=== PATIENT | male | born 1935 | race Caucasian/White ===

== ENCOUNTER → 2016-06-09 | Outpatient (CLI) | payer BC ==
[~2016-06-09] MED LIST: CALC500C70 PO; CEPH500C PO; DOCU-94 PO; FRRG PO; GLC/500 PO; LPR100 PO; OMEP40CA41 PO; OXYC-57 PO; PAIN PILL PO; SOLI10TA2 PO; WARF2.5T8 PO; WARF4TAB8 PO; WARF5TAB7 PO
[2016-06-09 16:07] LABS: INR 2.3 (0.9-1.1); PROTHROMBIN TIME (PATIENT) 25.9 SECONDS (9.0-12.0)
== END | disposition home or self-care (01) ==
LOC: C.LABSPEC 15:40
PROVIDERS: ATTEND Internal Medicine
DX: I48.91 Unspecified atrial fibrillation (principal); Z79.01 Long term (current) use of anticoagulants

== ENCOUNTER → 2016-06-30 | Outpatient (CLI) | payer BC ==
[~2016-06-30] MED LIST changes: -CEPH500C PO
[2016-06-30 13:14] LABS: BLOOD UREA NITROGEN 22 mg/dl (7-18); BUN/CREATININE RATIO 12.9 (10-20); CALCIUM 8.4 mg/dl (8.5-10.1); CARBON DIOXIDE 19 mmol/L (21-32); CHLORIDE 114 mmol/L (98-107); CHOLESTEROL 135 mg/dl (0-200); GLUCOSE 132 mg/dl (70-99); POTASSIUM 4.7 mmol/L (3.5-5.1); SODIUM 142 mmol/L (136-145); TRIGLYCERIDES 64 mg/dl (0-150); VERY LOW DENSITY LIPOPROT CALC 13 mg/dl
[2016-06-30 13:17] LABS: CHOLESTEROL/HDL RATIO 2.3; HDL CHOLESTEROL 58 mg/dl
[2016-06-30 13:23] LABS: INR 2.2 (0.9-1.1)
[2016-06-30 14:33] LABS: ESTIMATED AVERAGE GLUCOSE 126 mg/dl; HA1C FLAG Normal (Normal)
== END | disposition home or self-care (01) ==
LOC: C.LABSPEC 12:21
PROVIDERS: ATTEND Internal Medicine
DX: E11.9 Type 2 diabetes mellitus without complications (principal); E78.5 Hyperlipidemia, unspecified; I48.91 Unspecified atrial fibrillation; I10 Essential (primary) hypertension; Z79.01 Long term (current) use of anticoagulants

== ENCOUNTER → 2016-09-02 | Outpatient (CLI) | payer BC ==
[2016-09-02 14:12] LABS: INR 1.2 (0.9-1.1); PROTHROMBIN TIME (PATIENT) 12.9 SECONDS (9.0-12.0)
== END | disposition home or self-care (01) ==
LOC: C.LABSPEC 12:51
PROVIDERS: ATTEND Internal Medicine
DX: I48.91 Unspecified atrial fibrillation (principal); Z79.01 Long term (current) use of anticoagulants

== ENCOUNTER → 2016-09-10 | Outpatient (CLI) | payer BC ==
[~2016-09-10] MED LIST changes: +CEPH500C PO
[2016-09-10 13:35] LABS: INR 1.3 (0.9-1.1); PROTHROMBIN TIME (PATIENT) 13.5 SECONDS (9.0-12.0)
== END | disposition home or self-care (01) ==
LOC: C.LABSPEC 12:38
PROVIDERS: ATTEND Internal Medicine
DX: I48.91 Unspecified atrial fibrillation (principal); Z79.01 Long term (current) use of anticoagulants

== ENCOUNTER 2016-09-19 13:17 | Emergency (ER) | payer BC ==
[~2016-09-19] VITALS: Ht 175.3 cm; Wt 96.0 kg
[~2016-09-19 13:17] MED LIST changes: -CALC500C70 PO; -CEPH500C PO; -GLC/500 PO; -PAIN PILL PO; -WARF4TAB8 PO
[2016-09-19 13:24] VITALS: TEMP 36.3; Ht 175.3 cm; Wt 96.0 kg
[2016-09-19] MEDS ORDERED: WARF4TAB8 PO (13:47)
[2016-09-19] MEDS ORDERED: SILVER NITR/POTASSIUM NITRATE APPLICATOR ONE (14:01)
--- NOTE | 2016-09-19 14:43 | DIAGNOSTIC IMAGING REPORT ---
HEAD CT NONCONTRAST CT DOSE: 858.82 mGy.cm HISTORY: left headache TECHNIQUE: Multiaxial CT images of the head were performed without the use of intravenous contrast. Automated exposure control was utilized for this study. Comparison: Head CT 03/13/2016. Findings: The paranasal sinuses and mastoid air cells are clear. The calvarium and skull base are intact. There is no mass, hematoma, midline shift, acute infarct. White matter hypodensity is nonspecific but suggestive of microvascular ischemic change. The ventricles and sulci demonstrate mild age-related involutional changes. Impression: No significant change compared to the prior study. No acute intracranial abnormality. Electronically signed by: Oscar Phillips M.D. 09/19/2016 2:41 PM Dictated Date/Time: 09/19/2016 2:38 PM
--- NOTE | 2016-09-19 15:24 | EMERGENCY ROOM VISIT NOTE ---
History Report prepared by Paulo: Ean Zurita Under the Supervision of: Dr. Conrad Arevalo D.O. First contact with patient: 13:48 Chief Complaint: NOSE BLEED (MINOR) Stated Complaint: NOSEBLEED, SEVERE HEADACHE History of Present Illness The patient is a 81 year old male who presents to the Emergency Room with complaints of an episode of nose bleeding beginning about 2 hours ago. He notes the bleeding was from his left naris, and has had a significant amount of bleed. The patient also complains of a headache which began with the nose bleeding. He tried taking Tylenol about 1.5 hours ago with no relief. He is on Coumadin for atrial fibrillation and had his INR raised about 9 days ago from 6 to 8 mg. Source of History: patient Onset: about 2 hours ago Position: nose Quality: other (nose bleed) Timing: other (episode) Associated Symptoms: + headache Review of Systems See HPI for pertinent positives & negatives. A total of 10 systems reviewed and were otherwise negative. Past Medical & Surgical Medical Problems: (1) Anal fistula (2) ATRIAL FIBRILLATION (3) BARIATRIC SURGERY STATUS (4) DIAB LAMBERT WO COMPL, TYPE II OR UNSPEC TYPE, NOT UNCNTRLD (5) HYPERTENSION NOS (6) HYPOGLYCEMIA, A.FIB (7) KNEE JOINT REPLACEMENT STATUS (8) MSG, A.FIB, SEIZURE Surgical Problems: (1) H/O shoulder replacement Family History Cancer Diabetes mellitus Heart disease Social History Smoking Status: Former Smoker Alcohol Use: none Drug Use: none Marital Status: Housing Status: lives with significant other Occupation Status: retired Current/Historical Medications Scheduled Metoprolol Tartrate (Metoprolol Tartrate), 100 MG PO BID Omeprazole (Prilosec), 40 MG PO BID Warfarin Sod (Jantoven), 8 MG PO DAILY Allergies Coded Allergies: NO KNOWN DRUG ALLERGIES (Verified Allergy, Unknown, ., 04/08/16) Physical Exam Vital Signs Date Time Temp Pulse Resp B/P Pulse Ox O2 Delivery O2 Flow Rate FiO2 09/19/16 13:24 36.3 72 18 110/70 97 Room Air Physical Exam CONSTITUTIONAL/VITAL SIGNS: Reviewed / noted above. GENERAL: Non-toxic in appearance. INTEGUMENTARY: Warm, dry, and [place]. HEAD: Normocephalic. EYES: without scleral icterus or trauma. ENT/OROPHARYNX: No active bleeding in the nares or posterior oropharynx. There is some dried blood in the anterior septum on the left that appears to have recently bled. LYMPHADENOPATHY/NECK: Is supple without lymphadenopathy or meningismus. RESPIRATORY: Lungs clear and equal. CARDIOVASCULAR: Regular rate and rhythm. GI/ABDOMEN: Soft and nontender. No organomegaly or pulsatile mass. No rebound or guarding. Normal bowel sounds. EXTREMITIES: Warm and well perfused. BACK: No CVA tenderness. NEUROLOGICAL: Intact without focal deficits. PSYCHIATRIC: normal affect. MUSCULOSKELETAL: Normally developed with good muscle tone. Medical Decision & Procedures ER Provider Diagnostic Interpretation: Radiology results as stated below per my review and radiologist interpretation: HEAD CT NONCONTRAST Findings: The paranasal sinuses and mastoid air cells are clear. The calvarium and skull base are intact. There is no mass, hematoma, midline shift, acute infarct. White matter hypodensity is nonspecific but suggestive of microvascular ischemic change. The ventricles and sulci demonstrate mild age-related involutional changes. Impression: No significant change compared to the prior study. No acute intracranial abnormality. Electronically signed by: Oscar Phillips M.D. 09/19/2016 2:41 PM Dictated Date/Time: 09/19/2016 2:38 PM Laboratory Results Test 09/19/16 14:14 Bedside Prothrombin Time INR 7.5 (0.9-1.1) Laboratory results as stated above per my review. Medications Administered Medications (Trade) Dose Ordered Sig/Zaina Route Start Time Stop Time Status Last Admin Dose Admin Silver Nitrate/ Potassium Nitrate (Silver Nitrate Applicators) 1 t STK-MED ONCE .ROUTE 09/19/16 14:01 09/19/16 14:02 DC 09/19/16 14:01 1 T ED Course 1351: Previous medical records were reviewed. The patient was evaluated in room C11B. A complete history and physical examination was performed. Silver nitrate cautery applied to the left anterior septum. 1515: On reevaluation, the patient is doing well. I discussed the results and findings with the patient. He verbalized agreement of the treatment plan. The patient was discharged home. Medical Decision Differential includes: Acute intracranial bleed, trauma, meningitis, encephalitis, increased intracranial pressure, mass or mass effect, facial or dental infection, temporal arteritis, CVA, TIA, acute hypertensive emergency, sinusitis, carbon monoxide exposure, anticoagulation therapy. This is an 81-year-old male who presents to the ED with a chief complaint of a nosebleed and a left-sided headache. The patient states that his symptoms started this morning. He denies any trauma. The patient does report an increase in his Coumadin earlier this month. He denies any other significant symptoms. His vital signs are normal. His exam revealed some dried blood in the nares on the left. It appears that there was a bleeding site in the left anterior nares that is currently not bleeding after nasal compression device was applied. There is no bleeding in the posterior oropharynx. CT scan of the brain did not show acute process. INR 7.5. The left anterior septal region was cauterized where it appears to have bled. There is been no additional bleeding during observation the ED. The patient was felt to be stable for discharge. He was told to hold his Coumadin for tonight and tomorrow night and call his doctor on Wednesday morning. Impression Primary Impression: Anterior epistaxis Additional Impressions: Headache Elevated INR Scribe Attestation The scribe's documentation has been prepared under my direction and personally reviewed by me in its entirety. I confirm that the note above accurately reflects all work, treatment, procedures, and medical decision making performed by me. Departure Information Dispostion Home / Self-Care Referrals Spencer Cheney M.D. (PCP) Patient Instructions My [facility] Support Your App Additional Instructions Take Tylenol as needed for headache. Your INR today is 7.5. It should be between 2 and 3. Do not take her Coumadin tonight or tomorrow night and contact your doctor on Wednesday for further advice with regards to your Coumadin dose. Problem Qualifiers
[2016-09-19 15:33] VITALS: BP 119/70; PULSE 78; O2SAT 95
== END 2016-09-19 15:34 | disposition home or self-care (01) ==
LOC: C.EDB 13:21 → C.EDC 15:34
DX: R04.0 Epistaxis (principal); R51 Headache; R82.5 Elevated urine levels of drugs, medicaments and biological substances; I48.91 Unspecified atrial fibrillation; E11.9 Type 2 diabetes mellitus without complications; I10 Essential (primary) hypertension; Z83.3 Family history of diabetes mellitus; Z82.49 Family history of ischemic heart disease and other diseases of the circulatory system; Z87.891 Personal history of nicotine dependence

== ENCOUNTER 2016-09-20 12:01 | Emergency (ER) | payer BC ==
[~2016-09-20] VITALS: Ht 175.3 cm; Wt 98.8 kg
[~2016-09-20 12:01] MED LIST changes: -DOCU-94 PO; -FRRG PO; -OXYC-57 PO; -SOLI10TA2 PO; -WARF2.5T8 PO; +WARF4TAB8 PO; -WARF5TAB7 PO
[2016-09-20 12:07] VITALS: TEMP 36.9; Ht 175.3 cm; Wt 98.8 kg
[2016-09-20] MEDS ORDERED: OXYMETAZOLINE HCL 0.05% NA SPR 15 ML BTL ONE (12:34)
[2016-09-20] MEDS ORDERED: ACETAMINOPHEN 500 MG TAB PO STA (12:47)
--- NOTE | 2016-09-20 13:07 | EMERGENCY ROOM VISIT NOTE ---
History Report prepared by Paulo: Ryan Luong Under the Supervision of: Dr. Conrad Arevalo D.O. First contact with patient: 12:34 Chief Complaint: NOSE BLEED (MINOR) Stated Complaint: NOSEBLEED AND BLEEDING FROM MOUTH ALSO History of Present Illness The patient is an 81 year old male who presents to the Emergency Room with complaints of a constant nose bleed starting this morning. The patient was here yesterday for a similar complaint. The patient's states that the patient was not having any bleeding after the initial visit yesterday, though this morning the bleeding started again. The patient states that he has been spitting up blood as well. The patient additionally states that he has been having a headache. The patient states that he took the packing out of his nose from yesterday, and a couple of hours afterwards the bleeding started again. Source of History: patient, spouse/significant other Onset: this morning Position: nose Quality: other (bleeding) Timing: constant Associated Symptoms: + headache Review of Systems See HPI for pertinent positives & negatives. A total of 10 systems reviewed and were otherwise negative. Past Medical & Surgical Medical Problems: (1) Anal fistula (2) ATRIAL FIBRILLATION (3) BARIATRIC SURGERY STATUS (4) DIAB LAMBERT WO COMPL, TYPE II OR UNSPEC TYPE, NOT UNCNTRLD (5) HYPERTENSION NOS (6) HYPOGLYCEMIA, A.FIB (7) KNEE JOINT REPLACEMENT STATUS (8) MSG, A.FIB, SEIZURE Surgical Problems: (1) H/O shoulder replacement Family History Cancer Diabetes mellitus Heart disease Social History Smoking Status: Never Smoker Alcohol Use: none Drug Use: none Marital Status: Housing Status: lives with significant other Occupation Status: retired Current/Historical Medications Scheduled Metoprolol Tartrate (Metoprolol Tartrate), 100 MG PO BID Omeprazole (Prilosec), 40 MG PO BID Warfarin Sod (Jantoven), 8 MG PO DAILY Allergies Coded Allergies: NO KNOWN DRUG ALLERGIES (Verified Allergy, Unknown, ., 09/20/16) Physical Exam Vital Signs Date Time Temp Pulse Resp B/P Pulse Ox O2 Delivery O2 Flow Rate FiO2 09/20/16 12:07 36.9 79 18 118/79 95 Room Air Physical Exam CONSTITUTIONAL/VITAL SIGNS: Reviewed / noted above. GENERAL: Non-toxic in appearance. INTEGUMENTARY: Warm, dry, and [place]. HEAD: Normocephalic. EYES: without scleral icterus or trauma. ENT/OROPHARYNX: There is dried blood in left nares with mucosal irritation of the left anterior septum. No active bleeding. No post oropharyngeal bleeding. LYMPHADENOPATHY/NECK: Is supple without lymphadenopathy or meningismus. RESPIRATORY: Lungs clear and equal. CARDIOVASCULAR: Regular rate and rhythm. GI/ABDOMEN: Soft and nontender. No organomegaly or pulsatile mass. No rebound or guarding. Normal bowel sounds. EXTREMITIES: Warm and well perfused. BACK: No CVA tenderness. NEUROLOGICAL: Intact without focal deficits. PSYCHIATRIC: normal affect. MUSCULOSKELETAL: Normally developed with good muscle tone. Medical Decision & Procedures Medications Administered Medications (Trade) Dose Ordered Sig/Zaina Route Start Time Stop Time Status Last Admin Dose Admin Oxymetazoline HCl (Afrin 0.05% Nasal [place]) 75 sprays STK-MED ONCE .ROUTE 09/20/16 12:34 09/20/16 12:35 DC 09/20/16 12:46 2 SPRAYS Acetaminophen (Tylenol Tab) 1,000 mg NOW STAT PO 09/20/16 12:47 09/20/16 12:48 DC 09/20/16 12:55 1,000 MG ED Course 1234: Afrin 0.05% Nasal [place] 2 sprays 1242: Previous medical records were reviewed. The patient was evaluated in room B3. A complete history and physical examination was performed. 1247: Tylenol Tab 1000mg PO 1308: On reevaluation, the patient is doing better. I discussed the results and findings with the patient. He verbalized agreement of the treatment plan. He was discharged home. Medical Decision Differential diagnoses include: Trauma, anemia, elevated INR This is an 81-year-old male who presents to the ED with a chief complaint of a left anterior epistaxis. The patient was seen here yesterday by myself. He had a small area of bleeding in the left anterior septum that was cauterized with silver nitrate. The patient states that he placed packing in his nose last night in case his nose started bleeding again. He removed the packing that he placed this morning. A couple of hours later, the patient states that he sneezed several times in his nose began to bleed again. He presented with bleeding in his nose. The nurse sprayed Afrin in the nose and put the nasal compression device in place. On my evaluation, there is no active bleeding. There is no bleeding in the posterior oropharynx. The patient's nose was packed with Surgicel. There is no additional bleeding during his ED stay. His INR was elevated yesterday. He did not take his Coumadin yesterday and will not take it tonight. He will contact his PCP in the morning for advice on his Coumadin. Impression Primary Impression: Anterior epistaxis Additional Impression: Elevated INR Scribe Attestation The scribe's documentation has been prepared under my direction and personally reviewed by me in its entirety. I confirm that the note above accurately reflects all work, treatment, procedures, and medical decision making performed by me. Departure Information Dispostion Home / Self-Care Referrals Spencer Cheney M.D. (PCP) Forms HOME CARE DOCUMENTATION FORM, IMPORTANT VISIT INFORMATION, WORK / SCHOOL INSTRUCTIONS Patient Instructions My [facility] Additional Instructions Talk to your doctor tomorrow about her elevated INR. Do not take your Coumadin tonight. Leave nasal packing in place for about 3 days. Gently remove after this. Problem Qualifiers
[2016-09-20 13:18] VITALS: BP 139/55; PULSE 86; O2SAT 97
== END 2016-09-20 13:20 | disposition home or self-care (01) ==
LOC: C.EDB 12:03
DX: R04.0 Epistaxis (principal); R78.89 Finding of other specified substances, not normally found in blood; D68.9 Coagulation defect, unspecified; I48.91 Unspecified atrial fibrillation; I10 Essential (primary) hypertension; E11.9 Type 2 diabetes mellitus without complications; G40.909 Epilepsy, unspecified, not intractable, without status epilepticus; Z98.84 Bariatric surgery status; Z96.659 Presence of unspecified artificial knee joint; Z96.619 Presence of unspecified artificial shoulder joint; Z79.01 Long term (current) use of anticoagulants; Z79.899 Other long term (current) drug therapy; Z80.9 Family history of malignant neoplasm, unspecified; Z83.3 Family history of diabetes mellitus; Z82.49 Family history of ischemic heart disease and other diseases of the circulatory system

== ENCOUNTER → 2016-09-21 | Outpatient (CLI) | payer BC ==
[~2016-09-21] MED LIST changes: +CALC500C70 PO; +CEPH500C PO; +GLC/500 PO; +PAIN PILL PO; +WARF2.5T8 PO; +WARF5TAB7 PO
[2016-09-21 12:53] LABS: INR 2.6 (0.9-1.1); PROTHROMBIN TIME (PATIENT) 28.8 SECONDS (9.0-12.0)
== END | disposition home or self-care (01) ==
LOC: C.LABSPEC 12:26
PROVIDERS: ATTEND Internal Medicine
DX: I48.91 Unspecified atrial fibrillation (principal); Z79.01 Long term (current) use of anticoagulants

== ENCOUNTER → 2016-10-01 | Outpatient (CLI) | payer BC ==
[2016-10-01 13:55] LABS: INR 2.2 (0.9-1.1); PROTHROMBIN TIME (PATIENT) 24.3 SECONDS (9.0-12.0)
== END | disposition home or self-care (01) ==
LOC: C.LABSPEC 12:35
PROVIDERS: ATTEND Internal Medicine
DX: I48.91 Unspecified atrial fibrillation (principal); Z79.01 Long term (current) use of anticoagulants

== ENCOUNTER → 2016-10-27 | Outpatient (CLI) | payer BC, OTHER ==
[2016-10-27 13:05] LABS: PROTHROMBIN TIME (PATIENT) 43.9 SECONDS (9.0-12.0)
[2016-10-27 13:15] LABS: ESTIMATED AVERAGE GLUCOSE 137 mg/dl; HA1C FLAG Normal (Normal)
[2016-10-27 13:19] LABS: INR 3.9 (0.9-1.1)
[2016-10-27 15:01] LABS: BLOOD UREA NITROGEN 24 mg/dl (7-18); BUN/CREATININE RATIO 14.3 (10-20); CALCIUM 8.2 mg/dl (8.5-10.1); CARBON DIOXIDE 18 mmol/L (21-32); CHLORIDE 116 mmol/L (98-107); GLUCOSE 140 mg/dl (70-99); POTASSIUM 4.6 mmol/L (3.5-5.1); SODIUM 145 mmol/L (136-145)
[2016-10-27 15:09] LABS: CHOLESTEROL 130 mg/dl (0-200); CHOLESTEROL/HDL RATIO 2.5; HDL CHOLESTEROL 53 mg/dl; TRIGLYCERIDES 74 mg/dl (0-150); VERY LOW DENSITY LIPOPROT CALC 15 mg/dl
== END | disposition home or self-care (01) ==
LOC: C.LABSPEC 12:29
PROVIDERS: ATTEND Internal Medicine
DX: E11.9 Type 2 diabetes mellitus without complications (principal); I48.91 Unspecified atrial fibrillation; R73.9 Hyperglycemia, unspecified; E78.5 Hyperlipidemia, unspecified; Z79.01 Long term (current) use of anticoagulants; Z51.81 Encounter for therapeutic drug level monitoring

== ENCOUNTER → 2016-11-09 | Outpatient (CLI) | payer BC, OTHER ==
[2016-11-09 13:25] LABS: INR 2.9 (0.9-1.1); PROTHROMBIN TIME (PATIENT) 32.3 SECONDS (9.0-12.0)
== END | disposition home or self-care (01) ==
LOC: C.LABSPEC 12:16
PROVIDERS: ATTEND Internal Medicine
DX: I48.91 Unspecified atrial fibrillation (principal); Z79.01 Long term (current) use of anticoagulants

== ENCOUNTER → 2016-12-09 | Outpatient (CLI) | payer OTHER ==
[2016-12-09 13:30] LABS: INR 1.5 (0.9-1.1); PROTHROMBIN TIME (PATIENT) 16.8 SECONDS (9.0-12.0)
== END | disposition home or self-care (01) ==
LOC: C.LABSPEC 09:00
PROVIDERS: ATTEND Internal Medicine
DX: I48.91 Unspecified atrial fibrillation (principal); Z79.01 Long term (current) use of anticoagulants; Z51.81 Encounter for therapeutic drug level monitoring

== ENCOUNTER → 2016-12-25 | Outpatient (CLI) | payer OTHER ==
[2016-12-25 15:59] LABS: PROTHROMBIN TIME (PATIENT) 42.2 SECONDS (9.0-12.0)
[2016-12-25 16:03] LABS: INR 3.7 (0.9-1.1)
== END | disposition home or self-care (01) ==
LOC: C.LABSPEC 15:10
PROVIDERS: ATTEND Internal Medicine
DX: I48.91 Unspecified atrial fibrillation (principal); Z79.01 Long term (current) use of anticoagulants

== ENCOUNTER → 2017-01-11 | Outpatient (CLI) | payer OTHER ==
[2017-01-11 15:36] LABS: INR 2.1 (0.9-1.1); PROTHROMBIN TIME (PATIENT) 23.3 SECONDS (9.0-12.0)
== END | disposition home or self-care (01) ==
LOC: C.LABSPEC 15:09
PROVIDERS: ATTEND Internal Medicine
DX: I48.91 Unspecified atrial fibrillation (principal); Z79.01 Long term (current) use of anticoagulants

== ENCOUNTER 2017-01-25 17:03 | Emergency (ER) | payer OTHER ==
[~2017-01-25] VITALS: Ht 177.8 cm; Wt 95.0 kg
[~2017-01-25 17:03] MED LIST changes: -CALC500C70 PO; -CEPH500C PO; -GLC/500 PO; -PAIN PILL PO; -WARF2.5T8 PO; -WARF5TAB7 PO
[2017-01-25 17:12] VITALS: TEMP 36.5; Ht 177.8 cm; Wt 95.0 kg
[2017-01-25] MEDS ORDERED: SODIUM CHLORIDE 0.9% 1000ML 1,000 ML IV SCH (17:23)
--- NOTE | 2017-01-25 17:34 | EMERGENCY ROOM VISIT NOTE ---
History Report prepared by Paulo: Chino Mayers Under the Supervision of: Dr. Gabriel Quiroz D.O. First contact with patient: 17:17 Chief Complaint: NEURO SYMPTOMS Stated Complaint: PAIN IN HEAD AND BUDDHISM History of Present Illness The patient is an 81 year old male who presents to the Emergency Room with complaints of a persistent left-sided headache that started around an hour ago. He says that he was riding in the car when he started developing a throbbing pain above his left eye, and then he started having left-sided facial numbness and a headache on the back left side of his head. The patient says that the pain went down into the left side of his neck and down through the left shoulder. He states that the headache has persisted, and he is not talking normally. He adds that his left arm went numb when he was coming here. He denies any chest pain, shortness of breath, or abdominal pain. He notes no history of a stroke. Source of History: patient Onset: An hour ago Position: head (left sided) Timing: other (persistent) Associated Symptoms: + neck pain (left), + numbness (left arm and left side of face), No chest pain, No SOB, No abdominal pain Note: Associated symptoms: Throbbing pain above left eye. Left shoulder pain. Review of Systems See HPI for pertinent positives & negatives. A total of 10 systems reviewed and were otherwise negative. Past Medical & Surgical Medical Problems: (1) Anal fistula (2) ATRIAL FIBRILLATION (3) BARIATRIC SURGERY STATUS (4) DIAB LAMBERT WO COMPL, TYPE II OR UNSPEC TYPE, NOT UNCNTRLD (5) HYPERTENSION NOS (6) HYPOGLYCEMIA, A.FIB (7) KNEE JOINT REPLACEMENT STATUS (8) MSG, A.FIB, SEIZURE Surgical Problems: (1) H/O shoulder replacement Family History Cancer Diabetes mellitus Heart disease Social History Smoking Status: Former Smoker Alcohol Use: none Drug Use: none Marital Status: Housing Status: lives with significant other Occupation Status: retired Current/Historical Medications Scheduled Calcium/Vitamin D (Os-Vu 500 Plus D), 1 TAB PO DAILY Metoprolol Tartrate (Metoprolol Tartrate), 100 MG PO BID Omeprazole (Prilosec), 40 MG PO BID Warfarin Sod (Jantoven), 2.5 MG PO DAILY Warfarin Sod (Jantoven), 5 MG PO DAILY Allergies Coded Allergies: NO KNOWN DRUG ALLERGIES (Verified Allergy, Unknown, ., 09/20/16) Physical Exam Vital Signs Date Time Temp Pulse Resp B/P (MAP) Pulse Ox O2 Delivery O2 Flow Rate FiO2 01/25/17 19:43 74 18 145/98 97 Room Air 01/25/17 18:29 77 21 126/85 96 Room Air 01/25/17 18:00 80 01/25/17 17:51 74 22 149/103 96 Room Air 01/25/17 17:40 96 Room Air 01/25/17 17:12 36.5 87 18 124/82 97 Room Air Physical Exam GENERAL: Patient is awake, alert, somewhat anxious appearing. EYES: Tearing in left eye. The pupils are equal round and reactive to light. EOMI. EARS, NOSE, MOUTH AND THROAT: The nose is without any evidence of any deformity. Mucous membranes are moist tongue is midline NECK: The neck is nontender and supple. RESPIRATORY: Normal respiratory effort is noted there is no evidence of wheezing rhonchi or rales CARDIOVASCULAR: Irregular rhythm noted to auscultation. No definite murmur noted to auscultation. GASTROINTESTINAL: The abdomen is soft. Bowel sounds are present in all quadrants. Abdomen is nontender MUSCULOSKELETAL/EXTREMITIES: There is no evidence of gross deformity full range of motion is noted in the hips and shoulders SKIN: Pedal edema bilaterally. NEUROLOGIC: Patient is awake alert and oriented x3. Strength was diminished but symmetric. Speech was slow and pressured. Medical Decision & Procedures ER Provider Diagnostic Interpretation: Radiology results as stated below per my review and radiologist interpretation: CT SCAN OF THE BRAIN WITHOUT IV CONTRAST CLINICAL HISTORY: Headache. Stroke like symptoms. COMPARISON STUDY: CT of the brain dated 09/19/2016. TECHNIQUE: Unenhanced axial CT scan of the brain is performed from the vertex to the skull base. CT DOSE: 729.78 mGycm FINDINGS: Brain parenchyma: There are age-related involutional changes noting mild subcortical and periventricular microangiopathic change. There is no hemorrhage, mass effect, or evidence of acute territorial ischemia by CT criteria. Zepeda-white matter is preserved. No extra-axial fluid collection is seen. Ventricles, sulci, cisterns: Prominent secondary to involutional change. Intracranial vasculature: There is atherosclerotic calcification of the cavernous carotid and vertebral arteries. Calvarium: Unremarkable. Sinuses and mastoids: The visualized paranasal sinuses are clear. The mastoid air cells are well pneumatized. Orbits: The bony orbits are grossly intact. IMPRESSION: There is no hemorrhage, mass effect, or evidence of acute territorial ischemia by CT criteria. Electronically signed by: Guillermo Fitzgerald M.D. 01/25/2017 5:45 PM Dictated Date/Time: 01/25/2017 5:43 PM CHEST ONE VIEW PORTABLE HISTORY: Stroke symptoms. COMPARISON: Chest 03/13/2016. FINDINGS: The lungs are clear. Cardiac silhouette is normal in size. No pleural effusions. No pneumothorax. Left shoulder prosthesis. IMPRESSION: No acute process. Electronically signed by: Oscar Phillips M.D. 01/25/2017 6:21 PM Dictated Date/Time: 01/25/2017 6:20 PM RIGHT TIBIA/FIBULA 2 VIEWS HISTORY: Right lower leg pain. COMPARISON: None. FINDINGS: There is no fracture or dislocation. Mild soft tissue swelling within the right ankle. Vascular calcifications are noted. Right total knee arthroplasty. The hardware is intact. IMPRESSION: No fractures within the right lower leg. Electronically signed by: Oscar Phillips M.D. 01/25/2017 7:28 PM Dictated Date/Time: 01/25/2017 7:25 PM Laboratory Results 01/25/17 17:30 Red Blood Count 4.25, Mean Corpuscular Volume 94.4, Mean Corpuscular Hemoglobin 30.4, Mean Corpuscular Hemoglobin Concent 32.2, Mean Platelet Volume 11.0, Neutrophils (%) (Auto) 57.3, Lymphocytes (%) (Auto) 27.8, Monocytes (%) (Auto) 11.4, Eosinophils (%) (Auto) 2.6, Basophils (%) (Auto) 0.7, Neutrophils # (Auto ) 3.46, Lymphocytes # (Auto) 1.68, Monocytes # (Auto) 0.69, Eosinophils # (Auto ) 0.16, Basophils # (Auto) 0.04 01/25/17 17:30 Test 01/25/17 17:30 01/25/17 17:34 01/25/17 17:55 White Blood Count 6.04 K/uL (4.8-10.8) Red Blood Count 4.25 M/uL (4.7-6.1) Hemoglobin 12.9 g/dL (14.0-18.0) Hematocrit 40.1 % (42-52) Mean Corpuscular Volume 94.4 fL (80-100) Mean Corpuscular Hemoglobin 30.4 pg (25-34) Mean Corpuscular Hemoglobin Concent 32.2 g/dl (32-36) Platelet Count 190 K/uL (130-400) Mean Platelet Volume 11.0 fL (7.4-10.4) Neutrophils (%) (Auto) 57.3 % Lymphocytes (%) (Auto) 27.8 % Monocytes (%) (Auto) 11.4 % Eosinophils (%) (Auto) 2.6 % Basophils (%) (Auto) 0.7 % Neutrophils # (Auto) 3.46 K/uL (1.4-6.5) Lymphocytes # (Auto) 1.68 K/uL (1.2-3.4) Monocytes # (Auto) 0.69 K/uL (0.11-0.59) Eosinophils # (Auto) 0.16 K/uL (0-0.5) Basophils # (Auto) 0.04 K/uL (0-0.2) RDW Standard Deviation 51.7 fL (36.4-46.3) RDW Coefficient of Variation 15.0 % (11.5-14.5) Immature Granulocyte % (Auto) 0.2 % Immature Granulocyte # (Auto) 0.01 K/uL (0.00-0.02) Erythrocyte Sedimentation Rate 23 mm/hr (0-14) Prothrombin Time 18.1 SECONDS (9.0-12.0) Prothromb Time International Ratio 1.7 (0.9-1.1) Activated Partial Thromboplast Time 33.1 SECONDS (21.0-31.0) Partial Thromboplastin Ratio 1.3 Est Creatinine Clear Calc Drug Dose 37.9 ml/min Estimated GFR () 40.3 Estimated GFR (Non- 34.8 BUN/Creatinine Ratio 12.0 (10-20) Calcium Level 8.1 mg/dl (8.5-10.1) Total Creatine Kinase 54 U/L (39-308) Creatine Kinase MB < 0.5 ng/ml (0.5-3.6) Creatine Kinase MB Ratio (0-3.0) Troponin I < 0.015 ng/ml (0-0.045) Bedside Hemoglobin 13.3 g/dl (14.0-18.0) Bedside Hematocrit 39 % (42-52) Bedside Sodium 141 mEq/L (135-144) Bedside Potassium 5.2 mEq/L (3.3-5.0) Bedside Chloride 112 mEq/L (101-112) Bedside Total CO2 20 mEq/l (24-31) Anion Gap 16.0 mmol/L (16-25) Bedside Blood Urea Nitrogen 22 mg/dl (7-18) Bedside Creatinine 1.9 mg/dl (0.6-1.3) Bedside Glucose (other) 121 mg/dl (70-99) Bedside Ionized Calcium (Jb) 1.12 mmol/l (1.12-1.32) Urine Color YELLOW Urine Appearance CLEAR (CLEAR) Urine pH 5.0 (4.5-7.5) Urine Specific [place] 1.017 (1.000-1.030) Urine Protein TRACE (NEG) Urine Glucose (UA) NEG (NEG) Urine Ketones NEG (NEG) Urine Occult Blood NEG (NEG) Urine Nitrite NEG (NEG) Urine Bilirubin NEG (NEG) Urine Urobilinogen NEG (NEG) Urine Leukocyte Esterase NEG (NEG) Urine WBC (Auto) 1-5 /hpf (0-5) Urine RBC (Auto) 0-4 /hpf (0-4) Urine Hyaline Casts (Auto) 1-5 /lpf (0-5) Urine Epithelial Cells (Auto) >30 /lpf (0-5) Urine Bacteria (Auto) NEG (NEG) Laboratory results per my review. Medications Administered Medications (Trade) Dose Ordered Sig/Zaina Route Start Time Stop Time Status Last Admin Dose Admin Sodium Chloride 1,000 ml @ 50 mls/hr Q20H IV 01/25/17 17:23 02/24/17 17:22 01/25/17 17:57 50 MLS/HR ECG Indication: weakness Rate (beats per minute): 73 Rhythm: atrial fibrillation Findings: PVC, other (no acute ST segment abnormalities) Change: no significant change (compared to December 10 2015) ED Course 1723: Ordered NSS 1000 ml @ 50 mls/hr IV. 1726: The patient was evaluated in room B12B. A complete history and physical examination were performed. 1850: I reevaluated and updated the patient. 1858: I discussed the patient with Dr. Baltazar - statistical assistant - he says that he will follow up with the patient and order the rest of the stuff. 1934: Upon reevaluation, the patient is resting comfortably. I discussed the results and treatment plan with him. He verbalized agreement of the treatment plan. He was discharged home. Medical Decision Differential diagnosis: Etiologies such as metabolic, infection, hypo/hyperglycemia, electrolyte abnormalities, cardiac sources, intracerebral event, toxicologic, neurologic, as well as others were entertained. Nursing notes reviewed. Additional history is obtained from the patient's . The patient is an 81-year-old male who presented to the emergency department for evaluation of possible stroke and headache. The patient noticed a sharp sensation on the left side of his face. He also had a numb feeling in the left side of his face. The patient was also found to have difficulty with speech to my exam but on subsequent reevaluation his have resolved. The patient had a very low NIH stroke score initially. When he was reevaluated and he appeared to be completely resolved and at his baseline. I discussed the patient's laboratory and radiographic studies with him and his . I discussed his case with his primary care physician. They've agreed to evaluate the patient in the office for further TIA workup. The patient was encouraged to rest and avoid any strenuous activity. He was also encouraged to continue all medications as prescribed. He was also encouraged to return to the emergency department immediately if symptoms change worsen or the need arises. Medication Reconcilliation Current Medication List: was personally reviewed by me Blood Pressure Screening Patient's blood pressure: Normal blood pressure Consults Time Called: 1854 Consulting Physician: Dr. Baltazar - statistical assistant Returned Call: 1857 I discussed the patient with Dr. Baltazar - saray - he says that he will follow up with the patient and order the rest of the stuff. Impression Primary Impression: TIA (transient ischemic attack) Additional Impression: Contusion of right lower extremity Scribe Attestation The scribe's documentation has been prepared under my direction and personally reviewed by me in its entirety. I confirm that the note above accurately reflects all work, treatment, procedures, and medical decision making performed by me. Departure Information Dispostion Home / Self-Care Referrals Spencer Cheney M.D. (PCP) Forms HOME CARE DOCUMENTATION FORM, IMPORTANT VISIT INFORMATION, WORK / SCHOOL INSTRUCTIONS Patient Instructions My [facility], TIA Additional Instructions Call your family in the morning to schedule a follow-up appointment. Rest and avoid any strenuous activity. Avoid driving cleared by your family doctor. Return to the emergency department immediately if symptoms change worsen or the need arises. Problem Qualifiers Primary Impression: TIA (transient ischemic attack) Transient cerebral ischemia type: unspecified Qualified Codes: G45.9 - Transient cerebral ischemic attack, unspecified Additional Impression: Contusion of right lower extremity Encounter type: initial encounter Qualified Codes: S80.11XA - Contusion of right lower leg, initial encounter
[2017-01-25 17:40] VITALS: O2SAT 96
--- NOTE | 2017-01-25 17:47 | DIAGNOSTIC IMAGING REPORT ---
CT SCAN OF THE BRAIN WITHOUT IV CONTRAST CLINICAL HISTORY: Headache. Stroke like symptoms. COMPARISON STUDY: CT of the brain dated 09/19/2016. TECHNIQUE: Unenhanced axial CT scan of the brain is performed from the vertex to the skull base. CT DOSE: 729.78 mGycm FINDINGS: Brain parenchyma: There are age-related involutional changes noting mild subcortical and periventricular microangiopathic change. There is no hemorrhage, mass effect, or evidence of acute territorial ischemia by CT criteria. Zepeda-white matter is preserved. No extra-axial fluid collection is seen. Ventricles, sulci, cisterns: Prominent secondary to involutional change. Intracranial vasculature: There is atherosclerotic calcification of the cavernous carotid and vertebral arteries. Calvarium: Unremarkable. Sinuses and mastoids: The visualized paranasal sinuses are clear. The mastoid air cells are well pneumatized. Orbits: The bony orbits are grossly intact. IMPRESSION: There is no hemorrhage, mass effect, or evidence of acute territorial ischemia by CT criteria. Electronically signed by: Guillermo Fitzgerald M.D. 01/25/2017 5:45 PM Dictated Date/Time: 01/25/2017 5:43 PM
[2017-01-25 17:49] LABS: ISTAT CREATININE 1.9 mg/dl (0.6-1.3); ISTAT HEMOGLOBIN 13.3 g/dl (14.0-18.0); ISTAT IONIZED CALCIUM 1.12 mmol/l (1.12-1.32)
[2017-01-25 17:58] LABS: BASO % 0.7 %; BASO ABS # 0.04 K/uL (0-0.2); COMPLETE YES; EOS % 2.6 %; HEMATOCRIT 40.1 % (42-52); IG% 0.2 %; LYMPH % 27.8 %; LYMPH ABS # 1.68 K/uL (1.2-3.4); MEAN CELL VOLUME 94.4 fL (80-100); MEAN CORPUSCULAR HEMOGLOBIN 30.4 pg (25-34); MEAN CORPUSCULAR HGB CONC 32.2 g/dl (32-36); MONO % 11.4 %; NEUT % 57.3 %; PLATELET COUNT 190 K/uL (130-400); RED BLOOD COUNT 4.25 M/uL (4.7-6.1); WHITE BLOOD COUNT 6.04 K/uL (4.8-10.8)
[2017-01-25 17:59] LABS: INR 1.7 (0.9-1.1); PARTIAL THROMBOPLASTIN RATIO 1.3; PROTHROMBIN TIME (PATIENT) 18.1 SECONDS (9.0-12.0)
[2017-01-25 18:05] LABS: BLOOD UREA NITROGEN 22 mg/dl (7-18); CALCIUM 8.1 mg/dl (8.5-10.1); CARBON DIOXIDE 21 mmol/L (21-32); CHLORIDE 115 mmol/L (98-107); GLUCOSE 115 mg/dl (70-99); POTASSIUM 5.2 mmol/L (3.5-5.1); SODIUM 141 mmol/L (136-145)
[2017-01-25] MEDS ORDERED: WARF5TAB7 PO (18:05)
[2017-01-25] MEDS ORDERED: CALC500C70 PO (18:05)
[2017-01-25] MEDS ORDERED: WARF2.5T8 PO (18:05)
--- NOTE | 2017-01-25 18:22 | DIAGNOSTIC IMAGING REPORT ---
CHEST ONE VIEW PORTABLE HISTORY: Stroke symptoms. COMPARISON: Chest 03/13/2016. FINDINGS: The lungs are clear. Cardiac silhouette is normal in size. No pleural effusions. No pneumothorax. Left shoulder prosthesis. IMPRESSION: No acute process. Electronically signed by: Oscar Phillips M.D. 01/25/2017 6:21 PM Dictated Date/Time: 01/25/2017 6:20 PM
[2017-01-25 18:24] LABS: URINE APPEARANCE CLEAR (CLEAR); URINE BILIRUBIN NEG (NEG); URINE COLOR YELLOW; URINE EPITHELIAL CELL AUTO >30 /lpf (0-5); URINE NITRITE NEG (NEG); URINE SPECIFIC GRAVITY 1.017 (1.000-1.030); UROBILINOGEN NEG (NEG); ZZUR CULT IF INDIC CLEAN CATCH NO
[2017-01-25 18:26] LABS: MANUAL MICROSCOPIC REQUIRED? NO; REVIEW REQ? NO
--- NOTE | 2017-01-25 19:30 | DIAGNOSTIC IMAGING REPORT ---
RIGHT TIBIA/FIBULA 2 VIEWS HISTORY: Right lower leg pain. COMPARISON: None. FINDINGS: There is no fracture or dislocation. Mild soft tissue swelling within the right ankle. Vascular calcifications are noted. Right total knee arthroplasty. The hardware is intact. IMPRESSION: No fractures within the right lower leg. Electronically signed by: Oscar Phillips M.D. 01/25/2017 7:28 PM Dictated Date/Time: 01/25/2017 7:25 PM
[2017-01-25 19:43] VITALS: BP 145/98; PULSE 74; O2SAT 97
== END 2017-01-25 20:03 | disposition home or self-care (01) ==
LOC: C.EDB 17:03
DX: G45.9 Transient cerebral ischemic attack, unspecified (principal); S80.11XA Contusion of right lower leg, initial encounter; X58.XXXA Exposure to other specified factors, initial encounter; I48.91 Unspecified atrial fibrillation; I10 Essential (primary) hypertension; E11.9 Type 2 diabetes mellitus without complications; Z98.84 Bariatric surgery status; Z96.619 Presence of unspecified artificial shoulder joint; Z96.659 Presence of unspecified artificial knee joint; Z87.891 Personal history of nicotine dependence; Z79.01 Long term (current) use of anticoagulants; Z79.899 Other long term (current) drug therapy; Z80.9 Family history of malignant neoplasm, unspecified; Z83.3 Family history of diabetes mellitus; Z82.49 Family history of ischemic heart disease and other diseases of the circulatory system

== ENCOUNTER → 2017-02-02 | Outpatient (CLI) | payer OTHER ==
[~2017-02-02] MED LIST changes: +CALC500C70 PO; +CEPH500C PO; +GLC/500 PO; +PAIN PILL PO; +WARF2.5T8 PO; -WARF4TAB8 PO; +WARF5TAB7 PO
[2017-02-02 15:29] LABS: INR 2.7 (0.9-1.1); PROTHROMBIN TIME (PATIENT) 29.9 SECONDS (9.0-12.0)
== END | disposition home or self-care (01) ==
LOC: C.LABSPEC 14:50
PROVIDERS: ATTEND Internal Medicine
DX: I48.91 Unspecified atrial fibrillation (principal); Z79.01 Long term (current) use of anticoagulants

== ENCOUNTER 2017-02-03 11:35 | Emergency (ER) | payer OTHER ==
[~2017-02-03] VITALS: Ht 175.3 cm; Wt 79.7 kg
[~2017-02-03 11:35] MED LIST changes: -CEPH500C PO; -GLC/500 PO; -PAIN PILL PO
[2017-02-03 11:44] VITALS: TEMP 36.6; Ht 175.3 cm; Wt 79.7 kg
[2017-02-03] MEDS ORDERED: GLC/500 PO (12:00)
[2017-02-03] MEDS ORDERED: PAIN PILL PO (12:02)
[2017-02-03] MEDS ORDERED: RABIES VACCINE (IMOVAX) HUMAN DIPL CELL 2.5 INTER.UNIT/ML SYR IM. ONE (12:45)
[2017-02-03] MEDS ORDERED: RABIES IMMUNE GLOBULIN (HUMAN) 150 INTER.UNIT/ML 2 ML VIAL IM. ONE (12:45)
[2017-02-03 13:36] VITALS: BP 162/98; PULSE 76; O2SAT 96
--- NOTE | 2017-02-04 13:51 | EMERGENCY ROOM VISIT NOTE ---
ED Visit Note First contact with patient: 12:14 Chief Complaint: A groundhog scratched my left hand. History of Present Illness: Mr. Watson is an 81-year-old white male who ambulates into the ED accompanied by his complaining of soft tissue injuries to the left hand caused by a ground hog. Patient reports he has been captured animals around his house and releasing in the them to the wild. This morning when he awoke he found a ground hog in one of his traps. He attempted to remove a ground hog from the cage and sustained scratches from the animal on the posterior aspect of the left middle and little fingers. He reports he contacted his family doctor who encouraged in the come the emergency department for rabies vaccination. Currently patient has no complaints. He has not clean his wounds prior to arrival at the hospital. He denies any natalie bites from the animal. He denies any fevers, chills, sweats, shortness of breath, chest pain, abdominal pain, decreased appetite, nausea/vomiting, hand weakness/numbness/tingling. Review of Systems: As noted above in history of present illness. 5 body systems were reviewed and found to be negative as noted above. Past Medical History: (1) Anal fistula (2) ATRIAL FIBRILLATION (3) BARIATRIC SURGERY STATUS (4) DIAB LAMBERT WO COMPL, TYPE II OR UNSPEC TYPE, NOT UNCNTRLD (5) HYPERTENSION NOS (6) HYPOGLYCEMIA, A.FIB (7) KNEE JOINT REPLACEMENT STATUS (8) MSG, A.FIB, SEIZURE Surgical Problems: (1) H/O shoulder replacement Current Medications: Medications Dose Route/Sig Max Daily Dose Days Date Category Dose Instructions [Pain Pill] 1 Cap PO Q4H PRN 02/03/17 Reported Glucophage (Metformin Hcl) 500 Mg Tab 500 Mg PO DAILY 02/03/17 Reported TAKE 500MG DAILY WITH THE LARGEST MEAL OF THE DAY Os-Vu 500 Plus D (Calcium/Vitamin D) Tab 1 Tab PO DAILY 01/25/17 Reported Jantoven (Warfarin Sodium) 5 Mg Tab 5 Mg PO UD 01/25/17 Reported TAKE 5MG DAILY 6 DAYS A WEEK ON WEDNESDAY, WEDNESDAY, WEDNESDAY , WEDNESDAY, WEDNESDAY, AND WEDNESDAY Jantoven (Warfarin Sodium) 2.5 Mg Tab 2.5 Mg PO UD 01/25/17 Reported TAKE 2.5MG ONCE A WEEK ON JUANITO Metoprolol Tartrate 100 Mg Tab 100 Mg PO BID 12/08/15 Reported Prilosec (Omeprazole) 40 Mg Cap 40 Mg PO BID 12/08/15 Reported Allergies to Medications: Patient denies. Social History: Patient is not employed; he feels safe in his home environment; he denies current tobacco use. Tetanus Immunization Status: Patient reports up-to-date. Physical Examination: Vital Signs: Date Time Temp Pulse Resp B/P (MAP) Pulse Ox O2 Delivery O2 Flow Rate FiO2 02/03/17 13:36 76 18 162/98 96 Room Air 02/03/17 11:44 36.6 72 20 154/87 95 Room Air GENERAL: 81-year-old male in no acute distress, nontoxic-appearing, afebrile and hemodynamically stable. NEUROLOGICAL: Awake, alert and oriented to person, place and time. Answering questions appropriately and following commands. SKIN: Warm, dry and pink. Left Hand: Superficial abrasions over the posterior aspect of the middle and little finger. No active bleeding. HEENT: Atraumatic and normocephalic. LEFT HAND: Soft tissue injuries as noted above in SKIN. No gross bony deformity in the area of his abrasions. 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 Full range of motion in flexion and extension of all MCP and PIP and DIP joints. Throughout the hand the skin was warm and pink and capillary refill is brisk. He was able to distinguish light sensations through all dermatomes. ED Course: Patient is assessed as noted above. Patient's medication list was reviewed. I did contact the [facility] rabies immunization line for treatment recommendations; they indicated there was a furry small risk if the animal was rabid and they felt it should be the patient's choice for treatment. I did speak with the patient and he indicated he wanted the vaccination treatment. Patient was given 1600 units of rabies immunoglobulin IM and 2.5 units of rabies vaccination IM. Patient was observed after his immunizations and had no reactions. Patient was educated about today's findings and instructed on history none plan ; he verbalizes understanding and agreement with this plan. Clinical Impression: Soft tissue injury from groundhog. Rabies prophylaxis. Disposition: Patient discharged home in stable condition accompanied by his ; prior to departure he was reassessed and subjectively was still pain free. Plan: Patient was educated on signs and symptoms of rabies and adverse rabies immunizations symptoms. Patient was given a schedule for additional rabies immunizations including February 06, February 10, February 17. Patient was encouraged return ED from any symptoms of rabies, adverse symptoms of the immunizations, for additional rabies immunizations or any new/concerning symptoms.
== END 2017-02-03 13:45 | disposition home or self-care (01) ==
LOC: C.EDB 11:36 → C.EDD 13:45
DX: S60.512A Abrasion of left hand, initial encounter (principal); Z20.3 Contact with and (suspected) exposure to rabies; W53.89XA Other contact with other rodent, initial encounter; Y92.017 Garden or yard in single-family (private) house as the place of occurrence of the external cause; Z23 Encounter for immunization; I48.91 Unspecified atrial fibrillation; Z98.84 Bariatric surgery status; E11.9 Type 2 diabetes mellitus without complications; I10 Essential (primary) hypertension; Z79.01 Long term (current) use of anticoagulants; Z79.899 Other long term (current) drug therapy

== ENCOUNTER 2017-02-06 12:43 | Emergency (ER) | payer OTHER ==
[~2017-02-06] VITALS: Ht 177.8 cm; Wt 95.6 kg
[~2017-02-06 12:43] MED LIST changes: +GLC/500 PO; +PAIN PILL PO
[2017-02-06 12:45] VITALS: Ht 177.8 cm; Wt 95.6 kg
[2017-02-06] MEDS ORDERED: RABIES VACCINE (IMOVAX) HUMAN DIPL CELL 2.5 INTER.UNIT/ML SYR IM. ONE (13:00)
--- NOTE | 2017-02-06 13:05 | EMERGENCY ROOM VISIT NOTE ---
ED Visit Note First contact with patient: 12:47 CHIEF COMPLAINT: Rabies prophylaxis HISTORY OF PRESENT ILLNESS: This 81-year-old male patient presents to the emergency department ambulatory for their second rabies shot. The patient has not had any complications from the previous injections. They deny any other complaints. REVIEW OF SYSTEMS: A 6 system review of systems was completed with positives and pertinent negatives listed in the HPI. ALLERGIES: No known drug allergies MEDICATIONS: See med list PMH: Unchanged from previous visit. PHYSICAL EXAM: Vital Signs: Reviewed Nurse's notes, vital signs stable. GENERAL : This is an 81-year-old male, in no acute distress, well-developed, well- nourished. HEAD: Atraumatic, without temporal or scalp tenderness. EYES: PERRLA, EOMI, no discharge or injection. SKIN: Normal. NEUROLOGICAL: Alert and cooperative. Sensory and motor functions grossly intact. EMERGENCY DEPARTMENT COURSE: I examined the patient. The patient was given Imovax 2.5 units IM. The patient was observed for 20 minutes with no reaction. The patient was discharged home in stable condition. DIAGNOSIS: Rabies prophylaxis DISCHARGE INSTRUCTIONS: Continue vaccination schedule as directed. Return for any complications. Problem List Medical Problems: (1) ATRIAL FIBRILLATION Status: Chronic (2) BARIATRIC SURGERY STATUS Status: Resolved (3) DIAB LAMBERT WO COMPL, TYPE II OR UNSPEC TYPE, NOT UNCNTRLD Status: Chronic (4) HYPERTENSION NOS Status: Chronic (5) KNEE JOINT REPLACEMENT STATUS Status: Resolved Surgical Problems: (1) H/O shoulder replacement Status: Resolved Current/Historical Medications Scheduled Calcium/Vitamin D (Os-Vu 500 Plus D), 1 TAB PO DAILY Metformin Hcl (Glucophage), 500 MG PO DAILY Metoprolol Tartrate (Metoprolol Tartrate), 100 MG PO BID Omeprazole (Prilosec), 40 MG PO BID Warfarin Sod (Jantoven), 2.5 MG PO UD Warfarin Sod (Jantoven), 5 MG PO UD Allergies Coded Allergies: NO KNOWN DRUG ALLERGIES (Verified Allergy, Unknown, ., 02/06/17) Vital Signs Date Time Temp Pulse Resp B/P (MAP) Pulse Ox O2 Delivery O2 Flow Rate FiO2 02/06/17 12:45 36.3 92 17 147/80 98 Room Air Departure Information Impression Primary Impression: Rabies, need for prophylactic vaccination against Dispostion Home / Self-Care Condition GOOD Referrals Spencer Cheney M.D. (PCP) Patient Instructions My [facility] Additional Instructions Continue vaccination schedule as directed. Return for any complications.
[2017-02-06 13:20] VITALS: BP 138/78; PULSE 88; TEMP 36.3; O2SAT 98
== END 2017-02-06 13:22 | disposition home or self-care (01) ==
LOC: C.EDB 12:44 → C.EDD 13:22
DX: Z20.3 Contact with and (suspected) exposure to rabies (principal); Z23 Encounter for immunization; I48.91 Unspecified atrial fibrillation; E11.9 Type 2 diabetes mellitus without complications; I10 Essential (primary) hypertension

== ENCOUNTER 2017-02-10 08:57 | Emergency (ER) | payer OTHER ==
[~2017-02-10] VITALS: Ht 177.8 cm; Wt 96.9 kg
[~2017-02-10 08:57] MED LIST changes: -PAIN PILL PO
[2017-02-10 09:02] VITALS: BP 122/81; PULSE 72; TEMP 36.3; O2SAT 94; Ht 177.8 cm; Wt 96.9 kg
--- NOTE | 2017-02-10 09:10 | EMERGENCY ROOM VISIT NOTE ---
ED Visit Note First contact with patient: 09:08 CHIEF COMPLAINT: Rabies prophylaxis HISTORY OF PRESENT ILLNESS: This 81-year-old male patient presents to the emergency department with his for their third rabies shot. The patient has not had any complications from the previous injections. They deny any other complaints. REVIEW OF SYSTEMS: A 6 system review of systems was completed with positives and pertinent negatives listed in the HPI. ALLERGIES: Reviewed in chart MEDICATIONS: Reviewed in chart PMH: Unchanged from previous visit. SH: Lives at home with his . Denies smoking, alcohol, recreational drug use. PHYSICAL EXAM: Vital Signs: Reviewed Nurse's notes, vital signs stable. GENERAL : Pleasant and cooperative, in no acute distress, well-developed, well- nourished. HEAD: Atraumatic, without temporal or scalp tenderness. EYES: PERRLA, EOMI, no discharge or injection. SKIN: Normal. NEUROLOGICAL: Alert and cooperative. Sensory and motor functions grossly intact. EMERGENCY DEPARTMENT COURSE: I examined the patient. The patient was given Imovax 1ml IM. The patient was observed for 20 minutes with no reaction. The patient was discharged home in stable condition. Medication Reconciliation: I attest that I have personally reviewed the patient' s current medication list. Blood pressure screening: The patient was found to have normal blood pressure on screening and does not require follow-up for repeat blood pressure check. Problem List Medical Problems: (1) ATRIAL FIBRILLATION Status: Chronic (2) BARIATRIC SURGERY STATUS Status: Resolved (3) DIAB LAMBERT WO COMPL, TYPE II OR UNSPEC TYPE, NOT UNCNTRLD Status: Chronic (4) HYPERTENSION NOS Status: Chronic (5) KNEE JOINT REPLACEMENT STATUS Status: Resolved Surgical Problems: (1) H/O shoulder replacement Status: Resolved Current/Historical Medications Scheduled Calcium/Vitamin D (Os-Vu 500 Plus D), 1 TAB PO DAILY Metformin Hcl (Glucophage), 500 MG PO DAILY Metoprolol Tartrate (Metoprolol Tartrate), 100 MG PO BID Omeprazole (Prilosec), 40 MG PO BID Warfarin Sod (Jantoven), 2.5 MG PO UD Warfarin Sod (Jantoven), 5 MG PO UD Allergies Coded Allergies: NO KNOWN DRUG ALLERGIES (Verified Allergy, Unknown, ., 02/06/17) Vital Signs Date Time Temp Pulse Resp B/P (MAP) Pulse Ox O2 Delivery O2 Flow Rate FiO2 02/10/17 09:02 36.3 72 20 122/81 94 Room Air Medications Administered Medications (Trade) Dose Ordered Sig/Zaina Route Start Time Stop Time Status Last Admin Dose Admin Rabies Vaccine Human Diploid Cell (Imovax Rabies) 2.5 interunit ONCE ONCE IM. 02/10/17 09:15 02/10/17 09:16 DC 02/10/17 09:23 2.5 INTERUNIT Departure Information Impression Primary Impression: Encounter for repeat administration of rabies vaccination Dispostion Home / Self-Care Condition GOOD Referrals Spencer Cheney M.D. (PCP) Patient Instructions My [facility], Rabies Additional Instructions Follow closely with your PCP or anticoagulation clinic to have your INR rechecked, as the rabies vaccine may interfere with your Coumadin levels. Continue vaccination schedule as directed. Your next visit should be on 02/17/2017 for your final vaccination. Please return sooner for any complications.
[2017-02-10] MEDS ORDERED: RABIES VACCINE (IMOVAX) HUMAN DIPL CELL 2.5 INTER.UNIT/ML SYR IM. ONE (09:15)
== END 2017-02-10 10:02 | disposition home or self-care (01) ==
LOC: C.EDB 08:59 → C.EDC 10:02
DX: Z20.3 Contact with and (suspected) exposure to rabies (principal); Z23 Encounter for immunization; I48.91 Unspecified atrial fibrillation; E11.9 Type 2 diabetes mellitus without complications; I10 Essential (primary) hypertension; Z79.01 Long term (current) use of anticoagulants

== ENCOUNTER → 2017-02-11 | Outpatient (CLI) | payer OTHER ==
[~2017-02-11] MED LIST changes: +CEPH500C PO
[2017-02-11 15:28] LABS: INR 1.9 (0.9-1.1); PROTHROMBIN TIME (PATIENT) 21.1 SECONDS (9.0-12.0)
== END | disposition home or self-care (01) ==
LOC: C.LABSPEC 14:52
PROVIDERS: ATTEND Internal Medicine
DX: I48.91 Unspecified atrial fibrillation (principal); Z79.01 Long term (current) use of anticoagulants

== ENCOUNTER 2017-02-17 08:02 | Emergency (ER) | payer OTHER ==
[~2017-02-17] VITALS: Ht 177.8 cm; Wt 97.8 kg
[~2017-02-17 08:02] MED LIST changes: -CEPH500C PO
[2017-02-17 08:05] VITALS: TEMP 36.4; Ht 177.8 cm; Wt 97.8 kg
[2017-02-17] MEDS ORDERED: RABIES VACCINE (IMOVAX) HUMAN DIPL CELL 2.5 INTER.UNIT/ML SYR IM. ONE (08:15)
--- NOTE | 2017-02-17 08:19 | EMERGENCY ROOM VISIT NOTE ---
History First contact with patient: 08:07 Chief Complaint: RABIES VACCINE REPEAT VISIT Stated Complaint: REPEAT RABIES VACCINE History of Present Illness The patient is a 81 year old male who presents to the Emergency Room for his fourth and final rabies postexposure immunization. The patient reports being scratched by a ground hog which she caught in a trap. He suffered scratches to his left third and fifth fingers. He reports that the wounds are healing well, and denies any persistent pain, paresthesias, numbness or other concerns. Review of Systems 6 system review was performed and was negative except for pertinent positives and negatives as indicated in history of present illness Past Medical/Surgical History Medical Problems: (1) Anal fistula (2) ATRIAL FIBRILLATION (3) BARIATRIC SURGERY STATUS (4) DIAB LAMBERT WO COMPL, TYPE II OR UNSPEC TYPE, NOT UNCNTRLD (5) HYPERTENSION NOS (6) HYPOGLYCEMIA, A.FIB (7) KNEE JOINT REPLACEMENT STATUS (8) MSG, A.FIB, SEIZURE Surgical Problems: (1) H/O shoulder replacement Family History Cancer Diabetes mellitus Heart disease Social History Smoking Status: Never Smoker Alcohol Use: none Drug Use: none Marital Status: Housing Status: lives with significant other Occupation Status: retired Current/Historical Medications Scheduled Calcium/Vitamin D (Os-Vu 500 Plus D), 1 TAB PO DAILY Metformin Hcl (Glucophage), 500 MG PO DAILY Metoprolol Tartrate (Metoprolol Tartrate), 100 MG PO BID Omeprazole (Prilosec), 40 MG PO BID Warfarin Sod (Jantoven), 2.5 MG PO UD Warfarin Sod (Jantoven), 5 MG PO UD Physical Exam Vital Signs Date Time Temp Pulse Resp B/P (MAP) Pulse Ox O2 Delivery O2 Flow Rate FiO2 02/17/17 08:05 36.4 99 18 132/80 95 Room Air Physical Exam CONSTITUTIONAL: Healthy and well nourished. Alert and oriented X 3 with positive affect. HEENT: Normocephalic, atraumatic. Pupils equal, round and reactive. NECK: Full active range of motion without discomfort. MUSCULOSKELETAL: Examination of the left hand shows healed abrasions of the dorsal third and fifth fingers. He has full active range of motion of the fingers. INTEGUMENTARY: No rash or other significant dermatologic conditions noted. NEUROLOGIC: No focal neurologic deficits noted. Medical Decision & Procedures ED Course The patient was administered Imovax IM without adverse reaction. The patient was advised that if he has any potential rabies exposure in the future, he should advise his healthcare provider that he has already undergone this immunization series. The patient voiced understanding of all discharge instructions, and denied any pain at the time of discharge. Medical Decision Medication Reconcilliation Current Medication List: was personally reviewed by me Blood Pressure Screening Patient's blood pressure: Normal blood pressure Impression Primary Impression: Need for prophylactic vaccination against rabies Departure Information Dispostion Home / Self-Care Forms HOME CARE DOCUMENTATION FORM, IMPORTANT VISIT INFORMATION Patient Instructions My [facility] Additional Instructions If you have any potential rabies exposure in the future, advise your health care provider that you have already undergone this immunization series.
[2017-02-17 08:46] VITALS: BP 110/70; PULSE 69; O2SAT 96
== END 2017-02-17 08:47 | disposition home or self-care (01) ==
LOC: C.EDB 08:03 → C.EDA 08:47
DX: Z23 Encounter for immunization (principal); Z20.3 Contact with and (suspected) exposure to rabies

== ENCOUNTER → 2017-02-18 | Outpatient (CLI) | payer OTHER ==
[~2017-02-18] MED LIST changes: +CEPH500C PO
== END | disposition home or self-care (01) ==
LOC: C.LABSPEC 14:34
PROVIDERS: ATTEND Internal Medicine
DX: L02.415 Cutaneous abscess of right lower limb (principal)

== ENCOUNTER → 2017-02-26 | Outpatient (CLI) | payer OTHER ==
[2017-02-26 13:31] LABS: ESTIMATED AVERAGE GLUCOSE 134 mg/dl; HA1C FLAG Normal (Normal)
[2017-02-26 13:44] LABS: BLOOD UREA NITROGEN 25 mg/dl (7-18); BUN/CREATININE RATIO 13.3 (10-20); CALCIUM 8.1 mg/dl (8.5-10.1); CARBON DIOXIDE 20 mmol/L (21-32); CHLORIDE 114 mmol/L (98-107); GLUCOSE 119 mg/dl (70-99); POTASSIUM 4.7 mmol/L (3.5-5.1); SODIUM 141 mmol/L (136-145)
[2017-02-26 13:54] LABS: CHOLESTEROL 123 mg/dl (0-200); CHOLESTEROL/HDL RATIO 2.5; HDL CHOLESTEROL 50 mg/dl; TRIGLYCERIDES 76 mg/dl (0-150); VERY LOW DENSITY LIPOPROT CALC 15 mg/dl
== END | disposition home or self-care (01) ==
LOC: C.LABSPEC 12:41
PROVIDERS: ATTEND Internal Medicine
DX: E78.5 Hyperlipidemia, unspecified (principal); E11.9 Type 2 diabetes mellitus without complications; I48.0 Paroxysmal atrial fibrillation

== ENCOUNTER 2017-03-13 08:37 | Emergency (ER) | payer OTHER ==
[~2017-03-13] VITALS: Ht 177.8 cm; Wt 95.0 kg
[~2017-03-13 08:37] MED LIST changes: -CEPH500C PO
[2017-03-13 08:45] VITALS: TEMP 36.4; Ht 177.8 cm; Wt 95.0 kg
--- NOTE | 2017-03-13 09:07 | EMERGENCY ROOM VISIT NOTE ---
History Report prepared by Paulo: Zoran Sibley Under the Supervision of: Dr. Ean Gonzales M.D. First contact with patient: 08:51 Chief Complaint: WOUND INFECTION Stated Complaint: INFECTION IN R ANKLE History of Present Illness The patient is a 81 year old male who presents to the Emergency Room with complaints of a possible infection to his right ankle that began 2 months ago. He is experiencing pain to the area that he rates a 6/10 in severity. He is following up with Dr. Ignacia Pickard and last saw him 1 week ago. He has received two lancing procedures to the area. He also finished a course of antibiotics for it as well. However, his is still experiencing symptoms. He notes that it is not as bad as it was last night, but it is worse than prior weeks. He is having clear drainage from the area. He denies any fevers, chest pain, shortness of breath, nausea, vomiting, or diarrhea. He is on Coumadin for his atrial fibrillation. He also has a history of diabetes. Source of History: patient, treating provider Onset: 2 months ago Position: ankle (right) Symptom Intensity: 6/10 Quality: ache Timing: worsening Associated Symptoms: No fevers, No chest pain, No SOB, No nausea, No vomiting, No diarrhea Note: He notes some clear drainage from the area. Review of Systems See HPI for pertinent positives & negatives. A total of 10 systems reviewed and were otherwise negative. Past Medical & Surgical Medical Problems: (1) Anal fistula (2) ATRIAL FIBRILLATION (3) BARIATRIC SURGERY STATUS (4) DIAB LAMBERT WO COMPL, TYPE II OR UNSPEC TYPE, NOT UNCNTRLD (5) HYPERTENSION NOS (6) HYPOGLYCEMIA, A.FIB (7) KNEE JOINT REPLACEMENT STATUS (8) MSG, A.FIB, SEIZURE Surgical Problems: (1) H/O shoulder replacement Old medical records were reviewed. Nurse's notes were reviewed and I agree with. Family History Cancer Diabetes mellitus Heart disease Social History Smoking Status: Former Smoker Alcohol Use: none Drug Use: none Marital Status: Housing Status: lives with significant other Occupation Status: retired Current/Historical Medications Scheduled Calcium/Vitamin D (Os-Vu 500 Plus D), 1 TAB PO BID Cephalexin Monohydrate (Keflex), 500 MG PO TID Metformin Hcl (Glucophage), 500 MG PO BID Metoprolol Tartrate (Metoprolol Tartrate), 100 MG PO BID Omeprazole (Prilosec), 40 MG PO BID Warfarin Sod (Jantoven), 2.5 MG PO UD Warfarin Sod (Jantoven), 5 MG PO UD Allergies Coded Allergies: NO KNOWN DRUG ALLERGIES (Verified Allergy, Unknown, ., 02/17/17) Physical Exam Vital Signs Date Time Temp Pulse Resp B/P (MAP) Pulse Ox O2 Delivery O2 Flow Rate FiO2 03/13/17 10:54 96 20 128/77 98 03/13/17 10:00 92 20 111/61 96 Room Air 03/13/17 08:45 36.4 124 20 125/80 95 Room Air Physical Exam General: Non-ill appearing older male in no acute distress. HEENT: Normal cephalic atraumatic. Pupils are equal round and reactive to light. Extraocular movements are intact. Oropharynx is pink with moist mucous membranes. No swelling of the mouth lips or tongue. Neck: Supple with a midline trachea. No meningeal signs or stiffness, no JVD or bruits. No Stridor. Chest: Clear to auscultation bilaterally. No wheezes or rhonchi. No increased work of breathing. Heart: Irregular rate with an irregular rhythm. Abdomen: Soft nontender, nondistended without rebound guarding or rigidity. Extremities: Small, slightly pink area to the right anterior forrest. No fluctuance. Mild tenderness to palpation. No drainage. No cyanosis clubbing or edema. No calf tenderness or assymetry Spine/Back. Non tender to palpation. No CVA tenderness Skin: Good turgor without rashes. Neurologic exam: Cranial nerves two through 12 are intact. Motor and sensation are intact and symmetrical throughout. Medical Decision & Procedures ER Provider Diagnostic Interpretation: Radiology results as stated below per my review and radiologist interpretation: R TIBIA/FIBULA 2 VIEWS ROUTINE HISTORY: 81 years-old Male lesion in lower ant forrest r/o bony involvement reported lesion of the right lower pretibial tissues. Concern for possible bony involvement. COMPARISON: Right tibia and fibula radiographs 01/25/2017 TECHNIQUE: 2 views of the right tibia and fibula. FINDINGS: Partially imaged right knee arthroplasty noted without complication. Bones are mildly demineralized. There is mild distal pretibial soft tissue swelling without well-defined soft tissue mass, opaque foreign body or underlying acute bony abnormality. No acute fracture or dislocation. Vascular calcifications are seen. Please mild tibiotalar osteoarthritis. IMPRESSION: 1. Mild soft tissue swelling of the distal pretibial soft tissues without acute bony abnormality. 2. Peripheral vascular disease. The above report was generated using voice recognition software. It may contain grammatical, syntax or spelling errors. Electronically signed by: Slim Armenta M.D. 03/13/2017 9:21 AM Dictated Date/Time: 03/13/2017 9:20 AM Laboratory Results 03/13/17 09:10 Red Blood Count 4.02, Mean Corpuscular Volume 92.5, Mean Corpuscular Hemoglobin 30.6, Mean Corpuscular Hemoglobin Concent 33.1, Mean Platelet Volume 10.9, Neutrophils (%) (Auto) 67.2, Lymphocytes (%) (Auto) 19.5, Monocytes (%) (Auto) 9.4, Eosinophils (%) (Auto) 3.3, Basophils (%) (Auto) 0.4, Neutrophils # (Auto) 3.51, Lymphocytes # (Auto) 1.02, Monocytes # (Auto) 0.49, Eosinophils # (Auto) 0.17, Basophils # (Auto) 0.02 03/13/17 09:10 Test 03/13/17 09:10 White Blood Count 5.22 K/uL (4.8-10.8) Red Blood Count 4.02 M/uL (4.7-6.1) Hemoglobin 12.3 g/dL (14.0-18.0) Hematocrit 37.2 % (42-52) Mean Corpuscular Volume 92.5 fL (80-100) Mean Corpuscular Hemoglobin 30.6 pg (25-34) Mean Corpuscular Hemoglobin Concent 33.1 g/dl (32-36) Platelet Count 167 K/uL (130-400) Mean Platelet Volume 10.9 fL (7.4-10.4) Neutrophils (%) (Auto) 67.2 % Lymphocytes (%) (Auto) 19.5 % Monocytes (%) (Auto) 9.4 % Eosinophils (%) (Auto) 3.3 % Basophils (%) (Auto) 0.4 % Neutrophils # (Auto) 3.51 K/uL (1.4-6.5) Lymphocytes # (Auto) 1.02 K/uL (1.2-3.4) Monocytes # (Auto) 0.49 K/uL (0.11-0.59) Eosinophils # (Auto) 0.17 K/uL (0-0.5) Basophils # (Auto) 0.02 K/uL (0-0.2) RDW Standard Deviation 52.0 fL (36.4-46.3) RDW Coefficient of Variation 15.2 % (11.5-14.5) Immature Granulocyte % (Auto) 0.2 % Immature Granulocyte # (Auto) 0.01 K/uL (0.00-0.02) Prothrombin Time 49.0 SECONDS (9.0-12.0) Prothromb Time International Ratio 4.3 (0.9-1.1) Activated Partial Thromboplast Time 45.5 SECONDS (21.0-31.0) Partial Thromboplastin Ratio 1.8 Anion Gap 8.0 mmol/L (3-11) Est Creatinine Clear Calc Drug Dose 40.1 ml/min Estimated GFR () 43.2 Estimated GFR (Non- 37.3 BUN/Creatinine Ratio 11.4 (10-20) Calcium Level 8.7 mg/dl (8.5-10.1) Total Bilirubin 0.6 mg/dl (0.2-1) Direct Bilirubin 0.2 mg/dl (0-0.2) Aspartate Amino Transf (AST/SGOT) 15 U/L (15-37) Alanine Aminotransferase (ALT/SGPT) 17 U/L (12-78) Alkaline Phosphatase 83 U/L (45-117) Total Protein 6.7 gm/dl (6.4-8.2) Albumin 3.1 gm/dl (3.4-5.0) Lipase 88 U/L (73-393) Laboratory studies as stated above per my review. Medications Administered Medications (Trade) Dose Ordered Sig/Zaina Route Start Time Stop Time Status Last Admin Dose Admin Ceftriaxone Sodium (Rocephin Inj) 1 gm NOW STAT IV 03/13/17 10:23 03/13/17 10:25 DC 03/13/17 10:30 1 GM ECG Indication: other (Infection) Rate (beats per minute): 90 Rhythm: atrial fibrillation Findings: PVC (occasional), no acute ischemic change Comparison ECG Date: 25 Jan 2017 Change: no significant change ED Course 0851: Past medical records reviewed. The patient was evaluated in room B2, and a complete history and physical examination were performed. 1014: He is resting comfortably. 1023: Ordered Rocephin Inj 1 gm IV 1045: Upon reevaluation, the patient is resting. I discussed the results and treatment plan with him. He verbalized agreement of the treatment plan. The patient was discharged home. Medical Decision Differentials include, but are not limited to; wound infection, sepsis, cellulitis, abscess, and electrolyte or metabolic abnormality. This patient comes in as described above. He was placed in room B2. He has a small area and his right forrest that is mildly red and indurated. He has had an ongoing infection of this off-and-on and this has been drained by his doctor. He had a culture this which showed MSSA. At present, he is mildly tender but there is no fluctuance or drainage. He has no systemic complaints such as fever chills. No red streaking. X-ray does not show any bony abnormality. He has no white count or fever or anything to suggest sepsis. He has no acute electrode or metabolic abnormalities. He was noted to be in baseline atrial fibrillation. He is rate controlled. He has no chest pain or shortness of breath. His Coumadin is supratherapeutic and INR just above for I will have him hold his Coumadin over the weekend. I gave him a dose of IV Rocephin and he is going to be discharged with a prescription for Keflex. I discussed this with Dr. Bj Baltazar, his primary care physician, who agrees the plan. The patient will be discharged to home. He should return if increasing redness or warmth any new problems or concerns and follow with Dr. Baltazar this week. Medication Reconcilliation Current Medication List: was personally reviewed by me Blood Pressure Screening Patient's blood pressure: Normal blood pressure Blood pressure disposition: Did not require urgent referral Impression Primary Impression: Infection of anterior lower leg Scribe Attestation The scribe's documentation has been prepared under my direction and personally reviewed by me in its entirety. I confirm that the note above accurately reflects all work, treatment, procedures, and medical decision making performed by me. Departure Information Dispostion Home / Self-Care Prescriptions Cephalexin Monohydrate (Keflex) 500 Mg Cap 500 MG PO TID for 10 Days, #30 CAP Prov: Ean Gonzales M.D. 03/13/17 Referrals Spencer Cheney M.D. Forms HOME CARE DOCUMENTATION FORM, IMPORTANT VISIT INFORMATION, WORK / SCHOOL INSTRUCTIONS Patient Instructions My [facility] Additional Instructions Rest. Drink plenty of fluids. Keep area clean and dry and apply bacitracin twice a day Return if: Worsening of symptoms, fever or chills, increasing redness or warmth , any new problems or concerns Use Keflex 500 mg, 3 times a day for 10 days Hold your Coumadin over the weekend and have Dr. Baltazar recheck on Wednesday
--- NOTE | 2017-03-13 09:23 | DIAGNOSTIC IMAGING REPORT ---
R TIBIA/FIBULA 2 VIEWS ROUTINE HISTORY: 81 years-old Male lesion in lower ant forrest r/o bony involvement reported lesion of the right lower pretibial tissues. Concern for possible bony involvement. COMPARISON: Right tibia and fibula radiographs 01/25/2017 TECHNIQUE: 2 views of the right tibia and fibula. FINDINGS: Partially imaged right knee arthroplasty noted without complication. Bones are mildly demineralized. There is mild distal pretibial soft tissue swelling without well-defined soft tissue mass, opaque foreign body or underlying acute bony abnormality. No acute fracture or dislocation. Vascular calcifications are seen. Please mild tibiotalar osteoarthritis. IMPRESSION: 1. Mild soft tissue swelling of the distal pretibial soft tissues without acute bony abnormality. 2. Peripheral vascular disease. The above report was generated using voice recognition software. It may contain grammatical, syntax or spelling errors. Electronically signed by: Slim Armenta M.D. 03/13/2017 9:21 AM Dictated Date/Time: 03/13/2017 9:20 AM
[2017-03-13 09:35] LABS: BASO % 0.4 %; BASO ABS # 0.02 K/uL (0-0.2); COMPLETE YES; EOS % 3.3 %; HEMATOCRIT 37.2 % (42-52); IG% 0.2 %; LYMPH % 19.5 %; LYMPH ABS # 1.02 K/uL (1.2-3.4); MEAN CELL VOLUME 92.5 fL (80-100); MEAN CORPUSCULAR HEMOGLOBIN 30.6 pg (25-34); MEAN CORPUSCULAR HGB CONC 33.1 g/dl (32-36); MEAN PLATELET VOLUME 10.9 fL (7.4-10.4); MONO % 9.4 %; NEUT % 67.2 %; PLATELET COUNT 167 K/uL (130-400); RED BLOOD COUNT 4.02 M/uL (4.7-6.1); WHITE BLOOD COUNT 5.22 K/uL (4.8-10.8)
[2017-03-13 09:50] LABS: PARTIAL THROMBOPLASTIN RATIO 1.8
[2017-03-13 09:52] LABS: BUN/CREATININE RATIO 11.4 (10-20); CALCIUM 8.7 mg/dl (8.5-10.1); CREATININE 1.7 mg/dl (0.60-1.40); INR 4.3 (0.9-1.1); POTASSIUM 4.2 mmol/L (3.5-5.1)
[2017-03-13] MEDS ORDERED: CEFTRIAXONE SOD INJ 1 GM ADDVIAL IV STA (10:23)
[2017-03-13] MEDS ORDERED: CEPH500C PO (10:29)
[2017-03-13 10:54] VITALS: BP 128/77; PULSE 96; O2SAT 98
== END 2017-03-13 10:57 | disposition home or self-care (01) ==
LOC: C.EDB 08:39
DX: L08.9 Local infection of the skin and subcutaneous tissue, unspecified (principal); I48.91 Unspecified atrial fibrillation; Z79.01 Long term (current) use of anticoagulants; E11.9 Type 2 diabetes mellitus without complications; Z98.84 Bariatric surgery status; I10 Essential (primary) hypertension; Z80.9 Family history of malignant neoplasm, unspecified; Z83.3 Family history of diabetes mellitus; Z82.49 Family history of ischemic heart disease and other diseases of the circulatory system; Z87.891 Personal history of nicotine dependence

== ENCOUNTER → 2017-03-16 | Outpatient (CLI) | payer OTHER ==
[~2017-03-16] MED LIST changes: +CEPH500C PO
[2017-03-16 16:23] LABS: INR 1.5 (0.9-1.1); PROTHROMBIN TIME (PATIENT) 16.2 SECONDS (9.0-12.0)
== END | disposition home or self-care (01) ==
LOC: C.LABSPEC 15:36
PROVIDERS: ATTEND Internal Medicine
DX: I48.91 Unspecified atrial fibrillation (principal); Z79.01 Long term (current) use of anticoagulants

== ENCOUNTER → 2017-05-12 | Outpatient (CLI) | payer OTHER ==
[~2017-05-12] MED LIST changes: -CEPH500C PO
[2017-05-12 13:42] LABS: INR 1.7 (0.9-1.1); PROTHROMBIN TIME (PATIENT) 17.4 SECONDS (9.0-12.0)
== END | disposition home or self-care (01) ==
LOC: C.LABSPEC 12:22
PROVIDERS: ATTEND Internal Medicine
DX: I48.0 Paroxysmal atrial fibrillation (principal); Z79.01 Long term (current) use of anticoagulants

== ENCOUNTER → 2017-06-03 | Outpatient (CLI) | payer OTHER ==
[2017-06-03 18:24] LABS: PROTHROMBIN TIME (PATIENT) 20.8 SECONDS (9.0-12.0)
== END | disposition home or self-care (01) ==
LOC: C.LABSPEC 17:47
PROVIDERS: ATTEND Internal Medicine
DX: I48.91 Unspecified atrial fibrillation (principal); Z79.01 Long term (current) use of anticoagulants

== ENCOUNTER → 2017-06-30 | Outpatient (CLI) | payer OTHER ==
--- NOTE | 2017-06-30 14:35 | DIAGNOSTIC IMAGING REPORT ---
HEAD WITHOUT CONTRAST (CT) CT DOSE: 537.48 mGy.cm HISTORY: FALL, HEAD TRAUMA, DYSEQUALIBRIUM ON ANTICOAGULANT TECHNIQUE: Multiaxial CT images of the head were performed without the use of intravenous contrast. A dose lowering technique was utilized adhering to the principles of ALARA. Comparison: None. Findings: The paranasal sinuses and mastoid air cells are clear. The calvarium and skull base are intact. The ventricles and sulci are within normal limits. There is no mass, hematoma, midline shift, or acute infarct. Impression: No acute intracranial abnormality. The above report was generated using voice recognition software. It may contain grammatical, syntax or spelling errors. Electronically signed by: Jadiel Murphy M.D. 06/30/2017 2:33 PM Dictated Date/Time: 06/30/2017 2:30 PM
== END | disposition home or self-care (01) ==
LOC: C.CTS 14:15
PROVIDERS: ATTEND Internal Medicine
DX: S09.90XA Unspecified injury of head, initial encounter (principal); W19.XXXA Unspecified fall, initial encounter; R42 Dizziness and giddiness; Z79.01 Long term (current) use of anticoagulants; Z51.81 Encounter for therapeutic drug level monitoring

== ENCOUNTER → 2017-07-01 | Outpatient (CLI) | payer OTHER ==
[2017-07-01 13:24] LABS: INR 2.7 (0.9-1.1)
[2017-07-01 13:36] LABS: BLOOD UREA NITROGEN 22 mg/dl (7-18); CALCIUM 8.2 mg/dl (8.5-10.1); CARBON DIOXIDE 23 mmol/L (21-32); CREATININE 1.79 mg/dl (0.60-1.40); GLUCOSE 112 mg/dl (70-99); POTASSIUM 4.4 mmol/L (3.5-5.1); SODIUM 140 mmol/L (136-145)
[2017-07-01 13:39] LABS: CHOLESTEROL 107 mg/dl (0-200); LDL CHOLESTEROL (DIRECT) 61 mg/dl
[2017-07-01 13:47] LABS: HEMOGLOBIN A1C 6.1 % (4.5-5.6)
== END | disposition home or self-care (01) ==
LOC: C.LABSPEC 12:36
PROVIDERS: ATTEND Internal Medicine
DX: Z00.00 Encounter for general adult medical examination without abnormal findings (principal); I48.91 Unspecified atrial fibrillation; Z79.01 Long term (current) use of anticoagulants; N17.9 Acute kidney failure, unspecified; E16.2 Hypoglycemia, unspecified

== ENCOUNTER → 2017-07-30 | Outpatient (CLI) | payer OTHER ==
[~2017-07-30] MED LIST changes: +MGNO400 PO
== END | disposition home or self-care (01) ==
LOC: C.LABSPEC 15:00
PROVIDERS: ATTEND Internal Medicine
DX: Z79.01 Long term (current) use of anticoagulants (principal); I48.91 Unspecified atrial fibrillation

== ENCOUNTER 2017-08-05 10:33 | Observation (INO) | payer OTHER ==
[~2017-08-05] VITALS: Ht 177.8 cm; Wt 96.1 kg
[~2017-08-05 10:33] MED LIST changes: -CALC500C70 PO; -GLC/500 PO; -MGNO400 PO; -OMEP40CA41 PO; -WARF2.5T8 PO; -WARF5TAB7 PO
--- NOTE | 2017-08-05 10:51 | DIAGNOSTIC IMAGING REPORT ---
CHEST ONE VIEW PORTABLE HISTORY: 82 years-old Male EVALUATE WEAKNESS acute weakness with atypical chest pain COMPARISON: Chest radiograph 01/25/2017 TECHNIQUE: Portable AP view of the chest FINDINGS: Cardiomediastinal and hilar silhouettes are within normal limits. Atherosclerosis of the aorta. There is no pneumothorax, pleural effusion or overt pulmonary edema. No lobar airspace consolidation. Mild right hemidiaphragmatic elevation with linear subsegmental right greater than left bibasilar opacities. Mild hyperinflation. Degenerative changes of the shoulders and spine. Left shoulder arthroplasty noted. IMPRESSION: Linear subsegmental right greater than left bibasilar opacities suggest atelectasis. The above report was generated using voice recognition software. It may contain grammatical, syntax or spelling errors. Electronically signed by: Slim Armenta M.D. 08/05/2017 10:50 AM Dictated Date/Time: 08/05/2017 10:48 AM
--- NOTE | 2017-08-05 10:58 | DIAGNOSTIC IMAGING REPORT ---
R TIBIA/FIBULA 2 VIEWS ROUTINE HISTORY: 82 years-old Male right lower anterior pain, no trauma acute right lower extremity pain without trauma COMPARISON: Right tibia and fibula radiographs 03/13/2017 TECHNIQUE: 2 views of the right tibia and fibula FINDINGS: The bones appear mildly demineralized. Right knee arthroplasty noted without complication. No acute fracture or dislocation is identified. Degenerative marginal spurring is noted about the tibiotalar joint and midfoot. Minimal marginal spurring about the calcaneus. Dystrophic calcifications are seen within the distribution of the plantar fascia and mid Achilles tendon distribution. Extensive peripheral vascular disease. IMPRESSION: 1. Mildly demineralized appearance of the bones without acute fracture or dislocation identified. 2. Right knee arthroplasty without complication. 3. Evidence of chronic plantar fasciitis and chronic Achilles tendinosis. 4. Peripheral vascular disease. The above report was generated using voice recognition software. It may contain grammatical, syntax or spelling errors. Electronically signed by: Slim Armenta M.D. 08/05/2017 10:57 AM Dictated Date/Time: 08/05/2017 10:54 AM
[2017-08-05 11:10] LABS: BASO % 0.9 %; BASO ABS # 0.06 K/uL (0-0.2); EOS % 3.9 %; EOS ABS # 0.27 K/uL (0-0.5); HEMOGLOBIN 12.4 g/dL (14.0-18.0); IG# 0.01 K/uL (0.00-0.02); LYMPH % 22.3 %; LYMPH ABS # 1.56 K/uL (1.2-3.4); MEAN CELL VOLUME 93.1 fL (80-100); MEAN CORPUSCULAR HEMOGLOBIN 29.6 pg (25-34); MEAN CORPUSCULAR HGB CONC 31.8 g/dl (32-36); MEAN PLATELET VOLUME 11.1 fL (7.4-10.4); MONO % 12.8 %; NEUT ABS # 4.21 K/uL (1.4-6.5); PLATELET COUNT 203 K/uL (130-400); RED CELL DISTRIBUTION WIDTH CV 15.2 % (11.5-14.5); RED CELL DISTRIBUTION WIDTH SD 51.3 fL (36.4-46.3); WHITE BLOOD COUNT 7.01 K/uL (4.8-10.8)
[2017-08-05 11:23] LABS: INR 1.9 (0.9-1.1); PTT PATIENT 34.4 SECONDS (21.0-31.0)
[2017-08-05 11:29] LABS: BLOOD UREA NITROGEN 22 mg/dl (7-18); CREATININE 1.77 mg/dl (0.60-1.40); GLUCOSE 68 mg/dl (70-99); SODIUM 141 mmol/L (136-145)
[2017-08-05 11:30] LABS: ALBUMIN 3.1 gm/dl (3.4-5.0); ALT/SGPT 25 U/L (12-78); AST/SGOT 21 U/L (15-37); CALCIUM 8.2 mg/dl (8.5-10.1); CARBON DIOXIDE 23 mmol/L (21-32); POTASSIUM 4.4 mmol/L (3.5-5.1)
[2017-08-05 11:40] LABS: ALKALINE PHOSPHATASE 103 U/L (45-117); CKMB 0.8 ng/ml (0.5-3.6)
[2017-08-05] MEDS ORDERED: GLC/500 PO (12:00)
[2017-08-05] MEDS ORDERED: MoRPHine SULFATE 2 MG/ML CARP IV PRN (13:30)
[2017-08-05] MEDS ORDERED: ACETAMINOPHEN 325 MG TAB PO PRN (13:30)
[2017-08-05] MEDS ORDERED: LORAZEPAM 0.5 MG TAB PO PRN (13:30)
[2017-08-05] MEDS ORDERED: LORAZEPAM 2 MG/ML 1 ML VIAL IV PRN ×2 (13:30)
[2017-08-05] MEDS ORDERED: ONDANSETRON INJ 2 MG/ML 2 ML VIAL IV PRN (13:30)
[2017-08-05] MEDS ORDERED: MAGNESIUM HYDROXIDE SUSP 30 ML UDC PO PRN (13:30)
[2017-08-05] MEDS ORDERED: MoRPHine SULFATE 4 MG/ML 1 ML CARP\\VIAL IV PRN (13:30)
[2017-08-05] MEDS ORDERED: POLYETHYLENE (MIRALAX) 17 GM PACK PO PRN (13:30)
[2017-08-05 13:46] VITALS: O2SAT 96; Ht 177.8 cm; Wt 96.1 kg
--- NOTE | 2017-08-05 14:05 | History and Physical ---
History & Physical Date & Time of Service: Aug 05, 2017 at 13:50 Chief Complaint: Chest Pain Primary Care Physician: Spencer Cheney M.D. History of Present Illness Source: patient Patient presents with accelerating stroke sharp left chest pain just below his breast states that times is associated dizziness. Is not associated with diaphoresis nausea or dyspnea. Does not radiate to his jaw or arm. Patient does have risk factors of diabetes previously has had atrial fibrillation. His initial evaluation does not show any acute changes in his labs chest x-ray or A. fib on EKG. Patient concerned as this is been accelerating over the last few days and now is more associated with dizziness. Patient also describes some changes to his right lower leg which sounds a lot like diabetic neuropathy. 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 Patient typically wears CPAP at night but does not usually wear when he is in the hospital according to him Family History Cancer Diabetes mellitus Heart disease Social History Smoking Status: Never Smoker Drug Use: none Marital Status: Occupational Status: retired Immunizations History of Influenza Vaccine: No Influenza Vaccine Date: Mar 29, 2008 History of Tetanus Vaccine?: Yes Tetanus Immunization Date: Mar 05, 2008 History of Pneumococcal: Contraindicated History of Hepatitis B Vaccine: No Allergies Coded Allergies: NO KNOWN DRUG ALLERGIES (Verified Allergy, Unknown, ., 02/17/17) Home Medications Scheduled Calcium/Vitamin D (Os-Vu 500 Plus D), 1 TAB PO BID Metformin Hcl (Glucophage), 500 MG PO BID Metoprolol Tartrate (Metoprolol Tartrate), 100 MG PO BID Omeprazole (Prilosec), 40 MG PO BID Warfarin Sod (Jantoven), 2.5 MG PO 3XWK Warfarin Sod (Jantoven), 5 MG PO 4XWK Review of Systems ROS: well nourished well developed. No double vision blurry vision, the patient just felt lightheaded No problems with speech or swallowing No palpitations, he describes the chest pain is sharp in nature 6 out of 10 this is sort of crescendo decrescendo not exacerbated by anything in particular No Wheezing or breathing issues No abdominal pain nausea vomiting diarrhea changes in appetite or weight No burning urine urine frequency or changes in color he has however frequent incontinence of urine Patient has bilateral knee pain bilateral shoulder pain and back pain these are all chronic No skin rashes or oral lesions No unusual bruising or bleeding patient has some bruising to his lower legs from stumbling No numbness or loss of strength patient has some diminished sensation to his legs from his diabetes No changes in memory or confusion Physical Exam Vital Signs Date Time Temp Pulse Resp B/P (MAP) Pulse Ox O2 Delivery O2 Flow Rate FiO2 08/05/17 12:55 87 16 128/79 08/05/17 12:00 69 20 124/72 96 Room Air 08/05/17 10:48 95 Room Air 08/05/17 10:48 95 Room Air 08/05/17 10:44 60 08/05/17 10:35 66 20 123/85 95 Room Air General Appearance: WD/WN, + mild distress Head: normocephalic, atraumatic Eyes: normal inspection, sclerae normal Neck: supple, no JVD Respiratory/Chest: chest non-tender, lungs clear, normal breath sounds Cardiovascular: regular rate, rhythm, no murmur Abdomen/GI: normal bowel sounds, non tender, soft Back: + pertinent finding (Patient has muscular pain to his back when examined) Extremities/Musculoskelatal: + pertinent finding (Patient has changes of chronic venous stasis and may be some venous insufficiency of his lower lower legs) Neurologic/Psych: alert, oriented x 3, + pertinent finding (I suspect some diabetic neuropathy in his lower legs) Skin: normal color (Although open areas of some abrasions to his legs from stumbling when walking) Diagnostics Laboratory Results Results Past 24 Hours Test 08/05/17 10:40 08/05/17 12:00 Range/Units White Blood Count 7.01 4.8-10.8 K/uL Red Blood Count 4.19 4.7-6.1 M/uL Hemoglobin 12.4 14.0-18.0 g/dL Hematocrit 39.0 42-52 % Mean Corpuscular Volume 93.1 80-100 fL Mean Corpuscular Hemoglobin 29.6 25-34 pg Mean Corpuscular Hemoglobin Concent 31.8 32-36 g/dl Platelet Count 203 130-400 K/uL Mean Platelet Volume 11.1 7.4-10.4 fL Neutrophils (%) (Auto) 60.0 % Lymphocytes (%) (Auto) 22.3 % Monocytes (%) (Auto) 12.8 % Eosinophils (%) (Auto) 3.9 % Basophils (%) (Auto) 0.9 % Neutrophils # (Auto) 4.21 1.4-6.5 K/uL Lymphocytes # (Auto) 1.56 1.2-3.4 K/uL Monocytes # (Auto) 0.90 0.11-0.59 K/uL Eosinophils # (Auto) 0.27 0-0.5 K/uL Basophils # (Auto) 0.06 0-0.2 K/uL RDW Standard Deviation 51.3 36.4-46.3 fL RDW Coefficient of Variation 15.2 11.5-14.5 % Immature Granulocyte % (Auto) 0.1 % Immature Granulocyte # (Auto) 0.01 0.00-0.02 K/uL Prothrombin Time 19.4 9.0-12.0 SECONDS Prothromb Time International Ratio 1.9 0.9-1.1 Activated Partial Thromboplast Time 34.4 21.0-31.0 SECONDS Partial Thromboplastin Ratio 1.3 Sodium Level 141 136-145 mmol/L Potassium Level 4.4 3.5-5.1 mmol/L Chloride Level 111 98-107 mmol/L Carbon Dioxide Level 23 21-32 mmol/L Anion Gap 7.0 3-11 mmol/L Blood Urea Nitrogen 22 7-18 mg/dl Creatinine 1.77 0.60-1.40 mg/dl Est Creatinine Clear Calc Drug Dose 38.7 ml/min Estimated GFR () 40.8 Estimated GFR (Non- 35.2 BUN/Creatinine Ratio 12.2 10-20 Random Glucose 68 70-99 mg/dl Calcium Level 8.2 8.5-10.1 mg/dl Magnesium Level 1.8 1.8-2.4 mg/dl Total Bilirubin 0.5 0.2-1 mg/dl Direct Bilirubin 0.2 0-0.2 mg/dl Aspartate Amino Transf (AST/SGOT) 21 15-37 U/L Alanine Aminotransferase (ALT/SGPT) 25 12-78 U/L Alkaline Phosphatase 103 45-117 U/L Total Creatine Kinase 65 39-308 U/L Creatine Kinase MB 0.8 0.5-3.6 ng/ml Creatine Kinase MB Ratio 1.2 0-3.0 Troponin I < 0.015 0-0.045 ng/ml Total Protein 7.0 6.4-8.2 gm/dl Albumin 3.1 3.4-5.0 gm/dl Thyroid Stimulating Hormone (TSH) 4.220 0.300-4.500 uIu/ml Urine Color YELLOW Urine Appearance CLEAR CLEAR Urine pH 5.5 4.5-7.5 Urine Specific [place] 1.015 1.000-1.030 Urine Protein TRACE NEG Urine Glucose (UA) NEG NEG Urine Ketones NEG NEG Urine Occult Blood NEG NEG Urine Nitrite NEG NEG Urine Bilirubin NEG NEG Urine Urobilinogen NEG NEG Urine Leukocyte Esterase NEG NEG Urine WBC (Auto) 1-5 0-5 /hpf Urine RBC (Auto) 0-4 0-4 /hpf Urine Hyaline Casts (Auto) 1-5 0-5 /lpf Urine Epithelial Cells (Auto) >30 0-5 /lpf Urine Bacteria (Auto) NEG NEG CXR normal other (EKG shows atrial fibrillation with controlled ventricular rate no acute ST or T-wave changes) Impression Assessment and Plan 82-year-old male with a history of atrial fibrillation and diabetes and 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 presents with accelerated sharp left chest pain associated with some mild dizziness initial evaluation shows no acute coronary syndrome at this time Chest pain the patient will be on telemetry serial enzymes he cannot walk for treadmill will perform a dobutamine if his enzymes trends are negative we will continue metoprolol 100 twice daily With regard to his diabetes he is on a diabetic diet he uses metformin will just check a morning serum glucose unless markedly elevated, his glucose is 68 on presentation and is frequently problems with low glucose we will check an A1c Chronic anticoagulation patient's alternating Coumadin 2.5 and 5 maintain this following his INR is 1.9 and presentation This patient's 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
[2017-08-05 14:07] VITALS: O2SAT 96
[2017-08-05 14:29] VITALS: BP 147/68; PULSE 79; TEMP 36.4; O2SAT 94
[2017-08-05] MEDS ORDERED: SODIUM CHLORIDE 0.9% 1000ML 1,000 ML IV SCH (14:30)
[2017-08-05] MEDS ORDERED: LORAZEPAM INJ 0.5 MG in SYRINGE 0.75 ML IV PRN (14:45)
[2017-08-05] MEDS ORDERED: LORAZEPAM INJ 1 MG in SYRINGE 0.5 ML IV PRN (14:45)
--- NOTE | 2017-08-05 15:31 | EMERGENCY ROOM VISIT NOTE ---
History Report prepared by Paulo: Rhys Jacobs Under the Supervision of: Dr. Tim Ratliff M.D. First contact with patient: 10:34 Chief Complaint: CHEST PAIN Stated Complaint: CHEST PAIN History of Present Illness The patient is a 82 year old male who presents to the Emergency Room by EMS with complaints of an episode of left-sided chest pain beginning shortly prior to arrival. He describes his pain as "sharp". He also has experienced fatigue and mild SOB. The patient estimates that his pain was present for about 10 minutes. He currently does not feel short of breath. Pt denies LOC, headache, fevers, chills, diaphoresis, visual changes, neck pain, tearing pain radiating to the back, personal history or family history of aneurysm or pulmonary embolism, uncontrolled hypertension, leg swelling, coagulation abnormalities, prolonged travel, recent surgery or immobilization, nausea, vomiting, abdominal pain, melena, hematochezia, urinary symptoms, numbness, weakness, lymphadenopathy, rash, or other complaints. He is on Coumadin. The patient also complains of pain in his right lower leg. His pain is typically present after waking up in the morning. He states that he usually experiences the sensation of "flowing water" in his right lower leg at this time as well. The patient has not noticed any actual fluid drainage. His pain typically improves throughout the day. Source of History: patient Onset: Shortly prior to arrival Position: chest (left) Symptom Intensity: 10 minutes long Quality: sharp Timing: other (episode) Associated Symptoms: + SOB (mild), + fatigue Note: Additional symptoms: right lower leg pain, present each morning and improves throughout the day. Review of Systems See HPI for pertinent positives and negatives. A total of ten systems were reviewed and were otherwise negative. Past Medical & Surgical Medical Problems: (1) Anal fistula (2) ATRIAL FIBRILLATION (3) BARIATRIC SURGERY STATUS (4) BPH w urinary obs/LUTS (5) chest pain (6) CKD (chronic kidney disease) (7) DIAB LAMBERT WO COMPL, TYPE II OR UNSPEC TYPE, NOT UNCNTRLD (8) HYPERTENSION NOS (9) HYPOGLYCEMIA, A.FIB (10) KNEE JOINT REPLACEMENT STATUS (11) MSG, A.FIB, SEIZURE Surgical Problems: (1) H/O gastric bypass (2) H/O shoulder replacement Family History Cancer Diabetes mellitus Heart disease Social History Smoking Status: Former Smoker Alcohol Use: none Drug Use: none Marital Status: Housing Status: lives with significant other Occupation Status: retired Current/Historical Medications Scheduled Calcium/Vitamin D (Os-Vu 500 Plus D), 1 TAB PO BID Metformin Hcl (Glucophage), 500 MG PO BID Metoprolol Tartrate (Metoprolol Tartrate), 100 MG PO BID Omeprazole (Prilosec), 40 MG PO BID Warfarin Sod (Jantoven), 2.5 MG PO 3XWK Warfarin Sod (Jantoven), 5 MG PO 4XWK Allergies Coded Allergies: NO KNOWN DRUG ALLERGIES (Verified Allergy, Unknown, ., 02/17/17) Physical Exam Vital Signs Date Time Temp Pulse Resp B/P (MAP) Pulse Ox O2 Delivery O2 Flow Rate FiO2 08/05/17 14:07 82 20 130/92 96 08/05/17 14:06 82 20 130/92 96 Room Air 08/05/17 13:46 96 Room Air 08/05/17 12:55 87 16 128/79 08/05/17 12:00 69 20 124/72 96 Room Air 08/05/17 10:48 95 Room Air 08/05/17 10:48 95 Room Air 08/05/17 10:44 60 08/05/17 10:35 66 20 123/85 95 Room Air Physical Exam GENERAL: Awake, alert, well-appearing, in no distress HENT: Normocephalic, atraumatic. Oropharynx unremarkable. EYES: Normal conjunctiva. Sclera non-icteric. NECK: Supple. No nuchal rigidity. FROM. No masses. RESPIRATORY: Clear to auscultation. No wheezes. CARDIAC: Normal rate. Normal rhythm. No murmurs. No rubs. Extremities warm and well perfused. Pulses equal. No JVD. GI: Soft, non-distended. No tenderness to palpation. No rebound or guarding. No masses. RECTAL: Deferred. MUSCULOSKELETAL: Atraumatic. Chest examination reveals no tenderness. The back is symmetrical on inspection without obvious abnormality. There is no CVA tenderness to palpation. No joint edema. LOWER EXTREMITIES: Calves are equal size bilaterally. No edema. Chronic veinous discoloration of the lower legs. Mild right lower anterior forrest tenderness without visible abnormality. NEURO: Normal sensorium. No sensory or motor deficits noted. SKIN: No rash or jaundice noted. Medical Decision & Procedures ER Provider Diagnostic Interpretation: Radiology results as stated below per my review and radiologist interpretation: R TIBIA/FIBULA 2 VIEWS ROUTINE FINDINGS: The bones appear mildly demineralized. Right knee arthroplasty noted without complication. No acute fracture or dislocation is identified. Degenerative marginal spurring is noted about the tibiotalar joint and midfoot. Minimal marginal spurring about the calcaneus. Dystrophic calcifications are seen within the distribution of the plantar fascia and mid Achilles tendon distribution. Extensive peripheral vascular disease. IMPRESSION: 1. Mildly demineralized appearance of the bones without acute fracture or dislocation identified. 2. Right knee arthroplasty without complication. 3. Evidence of chronic plantar fasciitis and chronic Achilles tendinosis. 4. Peripheral vascular disease. The above report was generated using voice recognition software. It may contain grammatical, syntax or spelling errors. Electronically signed by: Slim Armenta M.D. 08/05/2017 10:57 AM CHEST ONE VIEW PORTABLE FINDINGS: Cardiomediastinal and hilar silhouettes are within normal limits. Atherosclerosis of the aorta. There is no pneumothorax, pleural effusion or overt pulmonary edema. No lobar airspace consolidation. Mild right hemidiaphragmatic elevation with linear subsegmental right greater than left bibasilar opacities. Mild hyperinflation. Degenerative changes of the shoulders and spine. Left shoulder arthroplasty noted. IMPRESSION: Linear subsegmental right greater than left bibasilar opacities suggest atelectasis. The above report was generated using voice recognition software. It may contain grammatical, syntax or spelling errors. Electronically signed by: Slim Armenta M.D. 08/05/2017 10:50 AM Laboratory Results 08/05/17 10:40 Red Blood Count 4.19, Mean Corpuscular Volume 93.1, Mean Corpuscular Hemoglobin 29.6, Mean Corpuscular Hemoglobin Concent 31.8, Mean Platelet Volume 11.1, Neutrophils (%) (Auto) 60.0, Lymphocytes (%) (Auto) 22.3, Monocytes (%) (Auto) 12.8, Eosinophils (%) (Auto) 3.9, Basophils (%) (Auto) 0.9, Neutrophils # (Auto ) 4.21, Lymphocytes # (Auto) 1.56, Monocytes # (Auto) 0.90, Eosinophils # (Auto ) 0.27, Basophils # (Auto) 0.06 08/05/17 10:40 Test 08/05/17 10:40 08/05/17 12:00 White Blood Count 7.01 K/uL (4.8-10.8) Red Blood Count 4.19 M/uL (4.7-6.1) Hemoglobin 12.4 g/dL (14.0-18.0) Hematocrit 39.0 % (42-52) Mean Corpuscular Volume 93.1 fL (80-100) Mean Corpuscular Hemoglobin 29.6 pg (25-34) Mean Corpuscular Hemoglobin Concent 31.8 g/dl (32-36) Platelet Count 203 K/uL (130-400) Mean Platelet Volume 11.1 fL (7.4-10.4) Neutrophils (%) (Auto) 60.0 % Lymphocytes (%) (Auto) 22.3 % Monocytes (%) (Auto) 12.8 % Eosinophils (%) (Auto) 3.9 % Basophils (%) (Auto) 0.9 % Neutrophils # (Auto) 4.21 K/uL (1.4-6.5) Lymphocytes # (Auto) 1.56 K/uL (1.2-3.4) Monocytes # (Auto) 0.90 K/uL (0.11-0.59) Eosinophils # (Auto) 0.27 K/uL (0-0.5) Basophils # (Auto) 0.06 K/uL (0-0.2) RDW Standard Deviation 51.3 fL (36.4-46.3) RDW Coefficient of Variation 15.2 % (11.5-14.5) Immature Granulocyte % (Auto) 0.1 % Immature Granulocyte # (Auto) 0.01 K/uL (0.00-0.02) Prothrombin Time 19.4 SECONDS (9.0-12.0) Prothromb Time International Ratio 1.9 (0.9-1.1) Activated Partial Thromboplast Time 34.4 SECONDS (21.0-31.0) Partial Thromboplastin Ratio 1.3 Anion Gap 7.0 mmol/L (3-11) Est Creatinine Clear Calc Drug Dose 38.7 ml/min Estimated GFR () 40.8 Estimated GFR (Non- 35.2 BUN/Creatinine Ratio 12.2 (10-20) Calcium Level 8.2 mg/dl (8.5-10.1) Magnesium Level 1.8 mg/dl (1.8-2.4) Total Bilirubin 0.5 mg/dl (0.2-1) Direct Bilirubin 0.2 mg/dl (0-0.2) Aspartate Amino Transf (AST/SGOT) 21 U/L (15-37) Alanine Aminotransferase (ALT/SGPT) 25 U/L (12-78) Alkaline Phosphatase 103 U/L (45-117) Total Creatine Kinase 65 U/L (39-308) Creatine Kinase MB 0.8 ng/ml (0.5-3.6) Creatine Kinase MB Ratio 1.2 (0-3.0) Troponin I < 0.015 ng/ml (0-0.045) Total Protein 7.0 gm/dl (6.4-8.2) Albumin 3.1 gm/dl (3.4-5.0) Thyroid Stimulating Hormone (TSH) 4.220 uIu/ml (0.300-4.500) Urine Color YELLOW Urine Appearance CLEAR (CLEAR) Urine pH 5.5 (4.5-7.5) Urine Specific [place] 1.015 (1.000-1.030) Urine Protein TRACE (NEG) Urine Glucose (UA) NEG (NEG) Urine Ketones NEG (NEG) Urine Occult Blood NEG (NEG) Urine Nitrite NEG (NEG) Urine Bilirubin NEG (NEG) Urine Urobilinogen NEG (NEG) Urine Leukocyte Esterase NEG (NEG) Urine WBC (Auto) 1-5 /hpf (0-5) Urine RBC (Auto) 0-4 /hpf (0-4) Urine Hyaline Casts (Auto) 1-5 /lpf (0-5) Urine Epithelial Cells (Auto) >30 /lpf (0-5) Urine Bacteria (Auto) NEG (NEG) Laboratory results reviewed by me ECG Per My Interpretation Indication: chest pain Rate (beats per minute): 59 Rhythm: atrial fibrillation (with slow response) Findings: PVC, no acute ischemic change ED Course 1037: The patient was evaluated in room B8. A complete history and physical exam was performed. 1300: Upon reexamination, the patient was resting comfortably. I discussed the test results and treatment plan with him. The patient will be evaluated for further management. Medical Decision Triage Nursing notes reviewed. The patient's presentation and history were concerning for chest pain. Etiologies such as cardiac ischemia, aortic dissection, pulmonary embolism, pneumonia, pneumothorax, musculoskeletal, infections, gastrointestinal, as well as others were entertained. The patient was evaluated. He was currently pain-free. His ECG did not reveal any acute findings. Chest x-ray was negative. His CBC, chemistry panel, LFTs and lipase were unremarkable except for mild renal insufficiency. He had taken aspirin today. He also noted having pain in his right lower forrest. It has been an ongoing problem for him. He did not have any calf tenderness. The patient had an unremarkable tib-fib x-ray so for age-related findings. Given his pain and associated symptoms it was felt further management in the hospital would be appropriate. Consultation was made with internal medicine. The patient was evaluated in the Emergency Room for further management. Medication Reconcilliation Current Medication List: was personally reviewed by me Blood Pressure Screening Patient's blood pressure: Normal blood pressure Blood pressure disposition: Did not require urgent referral Consults Time Called: 1303 Consulting Physician: Dr. Maira Chavez [facility] [place] Hospitalist Returned Call: [phone] Discussed the patient's case. The patient will be evaluated for further treatment and disposition. Impression Primary Impression: Left sided chest pain Additional Impression: SOB (shortness of breath) Scribe Attestation The scribe's documentation has been prepared under my direction and personally reviewed by me in its entirety. I confirm that the note above accurately reflects all work, treatment, procedures, and medical decision making performed by me. Departure Information Dispostion Being Evaluated By Hospitalist Referrals Spencer Cheney M.D. (PCP) Patient Instructions My [facility] Problem Qualifiers
[2017-08-05] MEDS ORDERED: WARFARIN SOD 5 MG TAB PO SCH (16:00)
[2017-08-05 16:16] VITALS: BP 125/76; PULSE 84; TEMP 36.5; O2SAT 98
[2017-08-05] MEDS ORDERED: OMEP40CA41 PO (16:56)
[2017-08-05] MEDS ORDERED: IV FLUIDS COMPLETED PRN (17:30)
[2017-08-05] MEDS ORDERED: WARF5TAB7 PO (18:05)
[2017-08-05] MEDS ORDERED: WARF2.5T8 PO (18:05)
[2017-08-05] MEDS ORDERED: CALC500C70 PO (18:05)
[2017-08-05] MEDS: CALCIUM 600MG + VIT D 400 IU TAB PO SCH (19:56)
[2017-08-05] MEDS: PANTOprazole SOD 40 MG TAB PO SCH (19:57)
[2017-08-05] MEDS: METOPROLOL TARTRATE 100 MG TAB PO SCH (19:57)
[2017-08-05] MEDS: METFORMIN HCL 500 MG TAB PO SCH (20:35)
[2017-08-05 20:38] VITALS: BP 127/74; PULSE 78; TEMP 36.3; O2SAT 95
[2017-08-06 00:18] VITALS: BP 127/69; PULSE 74; TEMP 36.6; O2SAT 94
[2017-08-06 04:10] VITALS: BP 137/86; PULSE 84; TEMP 36.8; O2SAT 97
[2017-08-06 07:24] LABS: HEMATOCRIT 35.7 % (42-52); HEMOGLOBIN 11.6 g/dL (14.0-18.0); MEAN CELL VOLUME 91.5 fL (80-100); MEAN CORPUSCULAR HEMOGLOBIN 29.7 pg (25-34); MEAN CORPUSCULAR HGB CONC 32.5 g/dl (32-36); MEAN PLATELET VOLUME 10.2 fL (7.4-10.4); PLATELET COUNT 170 K/uL (130-400); RED CELL DISTRIBUTION WIDTH CV 15.2 % (11.5-14.5); RED CELL DISTRIBUTION WIDTH SD 51.3 fL (36.4-46.3); WHITE BLOOD COUNT 5.67 K/uL (4.8-10.8)
[2017-08-06 07:34] LABS: INR 1.6 (0.9-1.1)
[2017-08-06 07:44] VITALS: BP 133/78; PULSE 89; TEMP 36.3; O2SAT 95
[2017-08-06 07:45] LABS: CALCIUM 8.2 mg/dl (8.5-10.1); CREATININE 1.75 mg/dl (0.60-1.40); POTASSIUM 4.5 mmol/L (3.5-5.1)
[2017-08-06] MEDS ORDERED: DOBUTamine HCL 12.5 MG/ML 20 ML VIAL ONE (08:11)
[2017-08-06] MEDS ORDERED: METOPROLOL TARTRATE 1 MG/ML VIAL ONE ×2 (08:11→08:12)
[2017-08-06] MEDS ORDERED: ATROPINE SULFATE 0.1 MG/ML 5ML SYR ONE ×2 (08:12)
[2017-08-06 08:14] LABS: HEMOGLOBIN A1C 6.2 % (4.5-5.6)
[2017-08-06] MEDS ORDERED: ASPIRIN 81 MG ECTAB PO SCH (09:00)
[2017-08-06] MEDS ORDERED: MAGNESIUM OXIDE 400 MG TAB PO SCH (09:15)
[2017-08-06] MEDS ORDERED: WARFARIN SOD 2.5 MG TAB PO ONE (09:15)
[2017-08-06] MEDS ORDERED: MAGNESIUM SULFATE 1GM / D5W 1 GM in PREMIXED IN D5W 100 ML IV ONE (09:15)
[2017-08-06] MEDS ORDERED: PERFLUTREN LIPID MICROSPHERE (DEFINITY) IV ONE (09:19)
[2017-08-06] MEDS: METFORMIN HCL 500 MG TAB PO SCH (09:28)
[2017-08-06] MEDS: PANTOprazole SOD 40 MG TAB PO SCH (09:28)
[2017-08-06] MEDS: METOPROLOL TARTRATE 100 MG TAB PO SCH (09:28)
[2017-08-06] MEDS: CALCIUM 600MG + VIT D 400 IU TAB PO SCH (09:29)
[2017-08-06 11:23] VITALS: BP 123/71; PULSE 81; TEMP 36.3; O2SAT 96
--- NOTE | 2017-08-06 12:32 | DOBUTAMINE ECHO ---
*NOTICE TO RECEIVING REPUBLICAN AGENCY This information is strictly Confidential and protected under [place] law. [place] law prohibits you from making any further disclosure of this information unless further disclosure is expressly permitted by the written consent of the person to whom it pertains or is authorized by law. A general authorization for the release of medical or other information is not sufficient for this purpose. Hospital accepts no responsibility if the information is made available to any other person, INCLUDING THE PATIENT. Interpretation Summary * Name: ANABELLE WILLIAMSON Study Date: 08/06/2017 07:22 AM BP: 134/75 mmHg * Patient Location: C.2T\S\E216\S\1 HR: 108 * : 1935 (M/d/yy) Gender: Male Height: 70 in * Age: 82 yrs Ethnicity: CA Weight: 218 lb * Ordering Physician: Tee Rao * Referring Physician: Self, Referred * Performed By: Mireya Weaver RDCS * * Reason For Study: CHEST PAIN * BSA: 2.2 m2 * -- Conclusions -- * There is mild concentric left ventricular hypertrophy. * Left ventricular systolic function is normal. * The left atrium is borderline dilated. * Right ventricular systolic pressure is elevated at 30-40mmHg. * Low risk study without evidence of inducible ischemia at peak dobutamine infusion Procedure Details * DOBUTAMINE ECHO, CPT#01783 * A contrast injection of Definity was performed to improve assessment of LV function. * Contrast was injected into an intravenous site in the left arm. * One vial of Definity ultrasound contrast was diluted in normal saline to a total volume of 10 ml. A total of '3' ml of solution was administered during imaging. * Lot # [id number] of Definity utilized for procedure. * Expiration date 1 JUL 26. * The attending nurse who injected the contrast agent was ROSS GUERIN RN. Left Ventricular Findings with Stress * Low risk study without evidence of inducible ischemia at peak dobutamine infusion Left Ventricle * The left ventricle is normal in size. * There is mild concentric left ventricular hypertrophy. * Ejection Fraction = 55-60%. * Left ventricular systolic function is normal. * The left ventricular wall motion is normal at rest. Right Ventricle * The right ventricle is normal in size and function. * The right ventricular systolic function is normal as assessed by tricuspid annular plane systolic excursion (TAPSE) (normal >1.5 cm). Atria * The left atrium is borderline dilated. * Right atrial size is normal. Mitral Valve * The mitral valve is grossly normal. * Significant mitral regurgitation is absent. Tricuspid Valve * The tricuspid valve is not well visualized, but is grossly normal. * There is trace tricuspid regurgitation. * Right ventricular systolic pressure is elevated at 30-40mmHg. Aortic Valve * The aortic valve is normal in structure and function. * The aortic valve is trileaflet. * No hemodynamically significant valvular aortic stenosis. * There is no significant aortic regurgitation. Great Vessels * The aortic root is normal size. Pericardium * There is no pericardial effusion. Stress Parameters * Atrial fibrillation. * Stress ECG: No ST changes. No arrhythmias. * The stress portion of this study was personally supervised by the undersigned interpreting physician. * Rest heart rate was '108' BPM. * Rest blood pressure was '134/75' * Maximum heart rate achieved was 162 bpm. * Maximum heart rate was 116 % of maximum age-predicted heart rate. * Maximum blood pressure was '144/64' * Maximum Dobutamine infusion rate was '30' mcg/kg/min. * Dobutamine infusion was terminated due to achieving target heart rate * A total of 5 mg of IV Metoprolol was administered to reverse Dobutamine-induced tachycardia. Left Ventricular Findings with Stress * Baseline EKG did not demonstrate any notable ST or T-wave changes With peak dobutamine infusion there were no significant ST or T-wave changes Baseline echocardiogram demonstrated normal wall motion Image quality was suboptimal but there was no obvious inducible wall motion abnormalities at peak dobutamine infusion No symptoms reported during the test Normal blood pressure response to dobutamine infusion MMode 2D Measurements and Calculations IVSd 1.4 cm IVSs 2.2 cm LVIDd 4.6 cm LVIDs 3.1 cm LVPWd 1.6 cm LVPWs 1.9 cm IVS/LVPW 0.88 FS 32.4 % EDV(Teich) 96.3 ml ESV(Teich) 37.8 ml EF(Teich) 60.8 % EDV(cubed) 96.0 ml ESV(cubed) 29.7 ml EF(cubed) 69.1 % % IVS thick 52.2 % % LVPW thick 19.8 % LV mass(C)d 285.9 grams LV mass(C)dI 132.1 grams/m\S\2 LV mass(C)s 282.8 grams LV mass(C)sI 130.6 grams/m\S\2 SV(Teich) 58.5 ml SI(Teich) 27.0 ml/m\S\2 SV(cubed) 66.4 ml SI(cubed) 30.6 ml/m\S\2 Ao root diam 3.8 cm Ao root area 11.2 cm\S\2 LA dimension 4.0 cm LA/Ao 1.1 LVAd ap4 21.5 cm\S\2 LVLd ap4 7.7 cm EDV(MOD-sp4) 50.6 ml EDV(sp4-el) 51.0 ml LVAs ap4 13.7 cm\S\2 LVLs ap4 7.1 cm ESV(MOD-sp4) 27.0 ml ESV(sp4-el) 22.4 ml EF(MOD-sp4) 46.7 % EF(sp4-el) 56.1 % LVAd ap2 24.5 cm\S\2 LVLd ap2 8.0 cm EDV(MOD-sp2) 60.2 ml EDV(sp2-el) 63.2 ml LVAs ap2 14.4 cm\S\2 LVLs ap2 6.7 cm ESV(MOD-sp2) 26.7 ml ESV(sp2-el) 26.4 ml EF(MOD-sp2) 55.7 % EF(sp2-el) 58.3 % LVLd %diff 3.9 % EDV(MOD-bp) 56.4 ml LVLs %diff -6.27 % ESV(MOD-bp) 25.3 ml EF(MOD-bp) 55.2 % SV(MOD-sp4) 23.7 ml SI(MOD-sp4) 10.9 ml/m\S\2 SV(MOD-sp2) 33.5 ml SI(MOD-sp2) 15.5 ml/m\S\2 SV(MOD-bp) 31.1 ml SI(MOD-bp) 14.4 ml/m\S\2 SV(sp4-el) 28.6 ml SI(sp4-el) 13.2 ml/m\S\2 SV(sp2-el) 36.9 ml SI(sp2-el) 17.0 ml/m\S\2 Doppler Measurements and Calculations Ao V2 max 115.6 cm/sec Ao max PG 5.3 mmHg Ao max PG (full) 2.8 mmHg LV V1 max PG 2.5 mmHg LV V1 max 79.0 cm/sec TR max gloria 279.9 cm/sec
[2017-08-06] MEDS ORDERED: MGNO400 PO (13:21)
--- NOTE | 2017-08-06 13:22 | Discharge Instructions ---
Discharge Instructions Date of Service Aug 06, 2017. Admission Reason for Admission: Chest Pain Discharge Discharge Diagnosis / Problem: atypical chest pain Discharge Goals Goal(s): Decrease discomfort, Improve function, Increase independence, Improve disease control, Improve nutritional status, Learn about illness, Diagnostic testing, Therapeutic intervention, Prevent Disease Progression, Specific goals Activity Recommendations Activity Limitations: resume your previous activity . Instructions / Follow-Up Instructions / Follow-Up you have atypical chest pain , stress test is not remarkable you have history of atrial fibrillation on chronic anticoagulation, INR is 1.6 today, recommend take total 5 mg of coumadin today, then resume your dose prior to admission, check PT/INR in PCP 's office on Wednesday, and adjust Coumadin accordingly - you need to follow up with your primary care physician in 1 week, - take medication as instructed, never overdose or any misuse, or take with alcohol, because misuse of medicine may cause organ damage or , call your primary care physician if have questions of medicaitons. - call your primary care physician OR go to local emergency room if has any fever/chill, chest pain, shortness of breathing, nausea/vomiting/abdominal pain , facial droop/slurry speech/local weakness, or if has any questions. - fall precaution - diet as instructed Current Hospital Diet Patient's current hospital diet: Diabetes Type 2 Diet Discharge Diet Recommended Diet: Diabetes Type 2 Diet Pending Studies Studies pending at discharge: no Laboratory Results Hemoglobin A1c Test 08/06/17 07:09 Range/Units Estimated Average Glucose 131 mg/dl Hemoglobin A1c 6.2 H 4.5-5.6 % Lipid Panel Test 07/01/17 08:45 Range/Units Triglycerides Level 56 0-150 mg/dl Cholesterol Level 107 0-200 mg/dl HDL Cholesterol 54 mg/dl LDL Cholesterol Direct 61 mg/dl Cholesterol/HDL Ratio 2.0 LDL Cholesterol, Calculated mg/dl Medical Emergencies . Who to Call and When: Medical Emergencies: If at any time you feel your situation is an emergency, please call 911 immediately. . Non-Emergent Contact Non-Emergency issues call your: Primary Care Provider . . "Provider Documentation" section prepared by Chris Wetzel. .
[2017-08-06 14:21] VITALS: BP 123/71; PULSE 81; TEMP 36.3; O2SAT 96
--- NOTE | 2017-08-06 14:54 | Discharge Summary ---
Discharge Summary Date of Service Aug 06, 2017. Discharge Summary Admission Date: Aug 05, 2017 at 14:22 Discharge Date: Aug 06, 2017 Principal Diagnosis: Atypical chest pain has rule out ACS Problems/Secondary Diagnoses: History of A. fib on Coumadin Subtherapeutic INR Immunizations: Have You Had Influenza Vaccine: No Influenza Vaccine Date: Mar 29, 2008 History of Tetanus Vaccine?: Yes Tetanus Immunization Date: Mar 05, 2008 History of Pneumococcal: Contraindicated History of Hepatitis B Vaccine: No Procedures: Stress echo Consultations: No Medication Reconciliation New Medications: Magnesium Oxide (Magnesium-Oxide) 400 Mg Tab 400 MG PO BID for 7 Days, #14 TAB Continued Medications: Calcium/Vitamin D (Os-Vu 500 Plus D) Tab 1 TAB PO BID Metformin Hcl (Glucophage) 500 Mg Tab 500 MG PO BID Metoprolol Tartrate (Metoprolol Tartrate) 100 Mg Tab 100 MG PO BID Omeprazole (Prilosec) 40 Mg Cap 40 MG PO BID Warfarin Sod (Jantoven) 2.5 Mg Tab 2.5 MG PO 3XWK TAKE 2.5MG 3 times weekly wednesday and wednesday Warfarin Sod (Jantoven) 5 Mg Tab 5 MG PO 4XWK take 5 mg 4 times weekly wednesday and wednesday Discharge Exam Doing well, eating lunch, no more chest pain Review of Systems: Constitutional: No fever, No chills, No sweats, No weight loss, No weakness , No fatigue, No problem reported Eyes: No worsening of vision, No eye pain, No redness, No discharge, No diplopia, No problem reported ENT: No hearing loss, No unusual epistaxis, No nasal symptoms, No sore throat, No tinnitus, No dental problems, No trouble swallowing, No problem reported Respiratory: No cough, No sputum, No wheezing, No shortness of breath, No dyspnea on exertion, No dyspnea at rest, No hemoptysis, No problem reported Cardiovascular: No chest pain, No orthopnea, No PND, No edema, No claudication, No palpitations, No problem reported Abdomen: No pain, No nausea, No vomiting, No diarrhea, No constipation, No GI bleeding, No problem reported Musculoskeletal: No joint pain, No muscle pain, No swelling, No calf pain, No problem reported Genitourinary - Male: No hematuria, No dysuria, No urinary frequency, No urinary urgency, No urinary hesitancy, No urinary retention, No urinary incontinence, No penile discharge, No lesions, No impotence, No problem reported Neurologic: No memory loss, No paralysis, No weakness, No numbness/tingling , No vertigo, No balance problems, No problem reported Psychiatric: No depression symptoms, No anhedonism, No anxiety, No insomnia , No substance abuse, No problem reported Endocrine: No fatigue, No excessive thirst, No excessive urination, No problem reported Hematologic / Lymphatic: No abnormal bleeding/bruising, No clotting problems , No swollen lymph nodes, No night sweats, No problem reported Integumentary: No rash, No itch, No new/changing skin lesions, No color change, No bleeding, No problem reported Physical Exam: General Appearance: WD/WN, no apparent distress Eyes: normal inspection, PERRL ENT: normal ENT inspection, hearing grossly normal Neck: supple, no adenopathy, thyroid normal Respiratory/Chest: chest non-tender, normal breath sounds, no respiratory distress, + decreased breath sounds Cardiovascular: regular rate, rhythm, no edema, no gallop, no JVD Abdomen / GI: normal bowel sounds, non tender, soft, no organomegaly, no pulsatile mass Extremities: normal inspection, no calf tenderness, normal capillary refill , no pedal edema Neurologic/Psychiatric: scheduling representative II-XII nml as tested, no motor/sensory deficits , alert, normal mood/affect, normal reflexes Skin: normal color, warm/dry Hospital Course 82-year-old male with a history of atrial fibrillation and diabetes and 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 * Left ventricular systolic function is normal. * The left atrium is borderline dilated. * Right ventricular systolic pressure is elevated at 30-40mmHg. * Low risk study without evidence of inducible ischemia at peak dobutamine infusion Therefore patient has atypical chest pain, has rule out ACS DMII. A1c less than 7, well controlled, continue current medication CKD stage III stable, History of A. fib on chronic anticoagulation , INR is 1.9 upon admission, this morning is 1.6, otherwise patient and took it additional 2.5 mg of Coumadin today, continue Coumadin as instructed as prior to the admission, check PT/INR on Wednesday, adjust Coumadin dose according to PCP gastric bypass anastomosis oscillation, continue Prilosec Patient is stable to discharge home, discussed with patient and family, answered all the questions Instructions / Follow-Up you have atypical chest pain , stress test is not remarkable you have history of atrial fibrillation on chronic anticoagulation, INR is 1.6 today, recommend take total 5 mg of coumadin today, then resume your dose prior to admission, check PT/INR in PCP 's office on Wednesday, and adjust Coumadin accordingly - you need to follow up with your primary care physician in 1 week, - take medication as instructed, never overdose or any misuse, or take with alcohol, because misuse of medicine may cause organ damage or , call your primary care physician if have questions of medicaitons. - call your primary care physician OR go to local emergency room if has any fever/chill, chest pain, shortness of breathing, nausea/vomiting/abdominal pain , facial droop/slurry speech/local weakness, or if has any questions. - fall precaution - diet as instructed Total Time Spent: Less than 30 minutes This includes examination of the patient, discharge planning, medication reconciliation, and communication with other providers. Discharge Instructions Please refer to the electronic Patient Visit Report (Discharge Instructions) for additional information. Additional Copies To Spencer Cheney M.D.
[2017-08-06] MEDS ORDERED: WARFARIN SOD 2.5 MG TAB PO SCH (16:00)
== END 2017-08-06 15:19 | disposition home or self-care (01) ==
LOC: EDBD 10:33 → C.EDB 10:34 → ENRESERV 13:47 → C.2T 14:22
PROVIDERS: ADMIT Internal Medicine; ATTEND Hospitalist
DX: R07.89 Other chest pain (principal); R06.02 Shortness of breath; R42 Dizziness and giddiness; I48.91 Unspecified atrial fibrillation; E11.9 Type 2 diabetes mellitus without complications; N18.3 Chronic kidney disease, stage 3 (moderate); Z98.84 Bariatric surgery status; Z79.01 Long term (current) use of anticoagulants; Z86.718 Personal history of other venous thrombosis and embolism; Z96.659 Presence of unspecified artificial knee joint; Z96.619 Presence of unspecified artificial shoulder joint; Z87.891 Personal history of nicotine dependence; Z83.3 Family history of diabetes mellitus; Z82.49 Family history of ischemic heart disease and other diseases of the circulatory system

== ENCOUNTER → 2017-08-16 | Outpatient (CLI) | payer OTHER ==
[~2017-08-16] MED LIST changes: +CALC500C70 PO; +GLC/500 PO; +MGNO400 PO; +OMEP40CA41 PO; +WARF2.5T8 PO; +WARF5TAB7 PO
[2017-08-16 13:20] LABS: INR 3.8 (0.9-1.1)
== END | disposition home or self-care (01) ==
LOC: C.LABSPEC 12:37
PROVIDERS: ATTEND Internal Medicine
DX: I48.92 Unspecified atrial flutter (principal); Z79.01 Long term (current) use of anticoagulants

== ENCOUNTER → 2017-09-01 | Outpatient (CLI) | payer OTHER ==
[~2017-09-01] MED LIST changes: +DOCU-94 PO; +OXYC1TAB3 PO; +SENN-61 PO
[2017-09-01 14:08] LABS: INR 1.5 (0.9-1.1)
== END | disposition home or self-care (01) ==
LOC: C.LABSPEC 12:43
PROVIDERS: ATTEND Internal Medicine
DX: I48.91 Unspecified atrial fibrillation (principal); Z79.01 Long term (current) use of anticoagulants

== ENCOUNTER → 2017-09-08 | Outpatient (CLI) | payer OTHER ==
--- NOTE | 2017-09-08 08:55 | DIAGNOSTIC IMAGING REPORT ---
L-SPINE MIN 4 VIEWS ROUTINE CLINICAL HISTORY: Lower back pain COMPARISON STUDY: CT scan performed March 2016 FINDINGS: There are postsurgical changes at the level the esophagogastric junction. No acute fractures are visualized. There are multilevel degenerative changes present. There is a grade 1 spondylolisthesis of L4 and L5. There are no acute fractures. There is ankylosis of the visualized portion of the thoracic spine. Arthritic changes are present within the left SI joint with possible erosions. IMPRESSION: 1. 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 Stable grade 1 spondylolisthesis of L4 and L5 3. No lumbar spine fractures are visualized. Electronically signed by: Martin Shipman M.D. 09/08/2017 8:54 AM Dictated Date/Time: 09/08/2017 8:52 AM
== END | disposition home or self-care (01) ==
LOC: C.RAD 08:03
PROVIDERS: ATTEND Internal Medicine
DX: M45.6 Ankylosing spondylitis lumbar region (principal)

== ENCOUNTER 2017-09-09 11:00 | Emergency (ER) | payer OTHER ==
[~2017-09-09] VITALS: Ht 177.8 cm; Wt 97.0 kg
[~2017-09-09 11:00] MED LIST changes: -DOCU-94 PO; -OXYC1TAB3 PO; -SENN-61 PO
[2017-09-09 11:05] VITALS: TEMP 36.3; Ht 177.8 cm; Wt 97.0 kg
[2017-09-09] MEDS ORDERED: ONDANSETRON INJ 2 MG/ML 2 ML VIAL IV STA (12:00)
[2017-09-09 12:24] LABS: BASO % 0.5 %; BASO ABS # 0.03 K/uL (0-0.2); EOS % 2.7 %; EOS ABS # 0.15 K/uL (0-0.5); HEMATOCRIT 36.6 % (42-52); HEMOGLOBIN 11.8 g/dL (14.0-18.0); IG# 0.01 K/uL (0.00-0.02); LYMPH % 23.5 %; LYMPH ABS # 1.33 K/uL (1.2-3.4); MEAN CELL VOLUME 92.2 fL (80-100); MEAN CORPUSCULAR HEMOGLOBIN 29.7 pg (25-34); MEAN CORPUSCULAR HGB CONC 32.2 g/dl (32-36); MEAN PLATELET VOLUME 10.6 fL (7.4-10.4); MONO % 11.1 %; MONO ABS # 0.63 K/uL (0.11-0.59); NEUT ABS # 3.51 K/uL (1.4-6.5); PLATELET COUNT 188 K/uL (130-400); RED CELL DISTRIBUTION WIDTH CV 14.5 % (11.5-14.5); RED CELL DISTRIBUTION WIDTH SD 49.7 fL (36.4-46.3); WHITE BLOOD COUNT 5.66 K/uL (4.8-10.8)
[2017-09-09] MEDS: HYDROmorphone INJ 0.5 MG/0.5 ML SYR IV PRN ×2 (12:24→13:28)
[2017-09-09 12:32] LABS: INR 1.8 (0.9-1.1); PTT PATIENT 33.4 SECONDS (21.0-31.0)
[2017-09-09 12:43] LABS: CALCIUM 8.4 mg/dl (8.5-10.1); CREATININE 1.57 mg/dl (0.60-1.40); POTASSIUM 4.1 mmol/L (3.5-5.1)
--- NOTE | 2017-09-09 13:28 | DIAGNOSTIC IMAGING REPORT ---
PELVIS 2 VIEW ROUTINE CLINICAL HISTORY: Right hip pain COMPARISON STUDY: CT scan performed December 2015 FINDINGS: No fractures are visualized. There are mild arthritic changes present. Degenerative changes are present within the SI joints. There is no SI joint diastases. There is no symphysis diastases. No destructive lesions are evident. IMPRESSION: Mild degenerative change. No fractures identified. Electronically signed by: Martin Shipman M.D. 09/09/2017 1:27 PM Dictated Date/Time: 09/09/2017 1:26 PM
--- NOTE | 2017-09-09 13:34 | DIAGNOSTIC IMAGING REPORT ---
R FEMUR 2 VIEWS ROUTINE CLINICAL HISTORY: Right hip and leg pain COMPARISON: None. DISCUSSION: There are labral calcifications. There are vascular calcifications present. 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 There are mild osteophytic changes within the right hip. No fractures are visualized. No destructive lesions are evident. IMPRESSION: Moderate osteoarthritic change. No acute fractures. No destructive lesions are visualized. Electronically signed by: Martin Shipman M.D. 09/09/2017 1:33 PM Dictated Date/Time: 09/09/2017 1:32 PM
--- NOTE | 2017-09-09 13:34 | DIAGNOSTIC IMAGING REPORT ---
CHEST ONE VIEW PORTABLE HISTORY: Pt c/o Rt hip pain COMPARISON: Chest 08/05/2017. FINDINGS: Left shoulder prosthesis. The heart remains borderline enlarged. The left lung is clear. No pneumothorax. Linear densities the right lung base persist. This remains unchanged. No new focal lung consolidations. No evidence for pulmonary edema. IMPRESSION: No change from the prior study. Right basilar linear densities persist. This favors atelectasis. Electronically signed by: Oscar Phillips M.D. 09/09/2017 1:33 PM Dictated Date/Time: 09/09/2017 1:32 PM
--- NOTE | 2017-09-09 14:03 | DIAGNOSTIC IMAGING REPORT ---
CT PELVIS NO IV/ORAL CONT (CT) CT DOSE: 1044.36 mGy.cm CLINICAL HISTORY: Right pelvis and hip pain status post trauma TECHNIQUE: Helical imaging was performed in transverse plane. Sagittal and coronal reformatted imaging was performed. A dose lowering technique was utilized adhering to the principles of ALARA. COMPARISON STUDY: Conventional radiographic study dated 4 x 18 FINDINGS: There is no pathologic adenopathy. There is indwelling Lynch catheter. There is an enlarged prostate. There is colonic diverticulosis. No significant soft tissue hematoma is visualized. There are mild to moderate osteoarthritic changes present within the hips. There is SI joint sclerosis. No acute fractures are visualized. There are degenerative changes present within the lower lumbar spine with spinal stenosis. There is a nonaggressive 1 cm lytic lesion within the iliac side of the right SI joint. IMPRESSION: 1. Osteoarthritic changes 2. No acute fractures identified. Electronically signed by: Martin Shipman M.D. 09/09/2017 2:02 PM Dictated Date/Time: 09/09/2017 1:57 PM
[2017-09-09] MEDS ORDERED: SENN-61 PO (14:29)
[2017-09-09] MEDS ORDERED: DOCU-94 PO (14:29)
[2017-09-09] MEDS ORDERED: OXYC1TAB3 PO (14:29)
[2017-09-09 14:50] VITALS: BP 140/96; PULSE 84; O2SAT 95
--- NOTE | 2017-09-17 06:34 | EMERGENCY ROOM VISIT NOTE ---
History Report prepared by Paulo: Rhys Jacobs Under the Supervision of: Dr. Conrad Morris M.D. First contact with patient: 11:42 Chief Complaint: FALL Stated Complaint: FALL, HIP PAIN History of Present Illness The patient is a 82 year old male who presents to the Emergency Room with complaints of constant right buttock pain s/p fall occurring 1.5 hours ago. He states that he fell while pulling out a stool at [employer]. He states that he landed on his backside. The patient did not hit his head or lose consciousness. He currently complains of pain radiating down his right leg. He is on Coumadin for A-fib. The patient has a history of diabetes. He denies right knee or right ankle pain. He has not had anything today for pain. The patient has a history of multiple hip and knee replacements. Source of History: patient Onset: 1.5 hours ago Position: buttock (right) Quality: other (pain s/p fall) Timing: constant Associated Symptoms: No LOC Note: The patient denies right knee or right ankle pain. He also complains of pain radiating down his right leg. Review of Systems See HPI for pertinent positives & negatives. A total of 10 systems reviewed and were otherwise negative. Past Medical & Surgical Medical Problems: (1) Anal fistula (2) ATRIAL FIBRILLATION (3) BARIATRIC SURGERY STATUS (4) BPH w urinary obs/LUTS (5) chest pain (6) CKD (chronic kidney disease) (7) DIAB LAMBERT WO COMPL, TYPE II OR UNSPEC TYPE, NOT UNCNTRLD (8) HYPERTENSION NOS (9) HYPOGLYCEMIA, A.FIB (10) KNEE JOINT REPLACEMENT STATUS (11) MSG, A.FIB, SEIZURE Surgical Problems: (1) H/O gastric bypass (2) H/O shoulder replacement Family History Cancer Diabetes mellitus Heart disease Social History Smoking Status: Never Smoker Alcohol Use: none Drug Use: none Marital Status: Housing Status: lives with significant other Occupation Status: retired Current/Historical Medications Scheduled Docusate Sodium (Colace), 1 CAP PO BID Metformin Hcl (Glucophage), 500 MG PO BID Metoprolol Tartrate (Metoprolol Tartrate), 100 MG PO BID Omeprazole (Prilosec), 40 MG PO BID Senna (Senokot), 1 TAB PO HS Warfarin Sod (Jantoven), 2.5-5 MG PO UD Scheduled PRN Oxycodone Immediate Rel Tab (Roxicodone Ir), 1-2 TAB PO Q4H PRN for Severe Pain Allergies Coded Allergies: NO KNOWN DRUG ALLERGIES (Verified Allergy, Unknown, ., 09/09/17) Physical Exam Vital Signs Date Time Temp Pulse Resp B/P (MAP) Pulse Ox O2 Delivery O2 Flow Rate FiO2 09/09/17 14:50 84 14 140/96 95 09/09/17 14:01 146/83 09/09/17 14:00 84 13 97 Room Air 09/09/17 13:31 155/90 09/09/17 13:30 82 25 96 Room Air 09/09/17 13:28 77 18 134/80 96 Room Air 09/09/17 12:47 89 09/09/17 12:25 78 14 143/88 95 Room Air 09/09/17 11:05 36.3 96 20 147/83 96 Room Air Physical Exam GENERAL: Awake, alert, well-appearing, in no acute distress HENT: Normocephalic, atraumatic. Oropharynx unremarkable. EYES: Normal conjunctiva. Sclera non-icteric. NECK: Supple. No nuchal rigidity. FROM. No JVD. RESPIRATORY: Clear to auscultation. CARDIAC: Regular rate, normal rhythm. Extremities warm and well perfused. Pulses equal. ABDOMEN: Soft, non-distended. No tenderness to palpation. No rebound or guarding. No masses. RECTAL: Deferred. MUSCULOSKELETAL: Chest examination reveals no tenderness. The back is symmetrical on inspection without obvious abnormality. There is no CVA tenderness to palpation. No joint edema. LOWER EXTREMITIES: Calves are equal size bilaterally and non-tender. Exquisitely tender to the right pelvic area. NEURO: Normal sensorium. No sensory or motor deficits noted. SKIN: No rash or jaundice noted. Medical Decision & Procedures ER Provider Diagnostic Interpretation: Radiology results as stated below per my review and radiologist interpretation: PELVIS 2 VIEW ROUTINE FINDINGS: No fractures are visualized. There are mild arthritic changes present. Degenerative changes are present within the SI joints. There is no SI joint diastases. There is no symphysis diastases. No destructive lesions are evident. IMPRESSION: Mild degenerative change. No fractures identified. Electronically signed by: Martin Shipman M.D. 09/09/2017 1:27 PM R FEMUR 2 VIEWS ROUTINE DISCUSSION: There are labral calcifications. There are vascular calcifications present. 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 There are mild osteophytic changes within the right hip. No fractures are visualized. No destructive lesions are evident. IMPRESSION: Moderate osteoarthritic change. No acute fractures. No destructive lesions are visualized. Electronically signed by: Martin Shipman M.D. 09/09/2017 1:33 PM CHEST ONE VIEW PORTABLE FINDINGS: Left shoulder prosthesis. The heart remains borderline enlarged. The left lung is clear. No pneumothorax. Linear densities the right lung base persist. This remains unchanged. No new focal lung consolidations. No evidence for pulmonary edema. IMPRESSION: No change from the prior study. Right basilar linear densities persist. This favors atelectasis. Electronically signed by: Oscar Phillips M.D. 09/09/2017 1:33 PM Laboratory Results 09/09/17 12:15 Red Blood Count 3.97, Mean Corpuscular Volume 92.2, Mean Corpuscular Hemoglobin 29.7, Mean Corpuscular Hemoglobin Concent 32.2, Mean Platelet Volume 10.6, Neutrophils (%) (Auto) 62.0, Lymphocytes (%) (Auto) 23.5, Monocytes (%) (Auto) 11.1, Eosinophils (%) (Auto) 2.7, Basophils (%) (Auto) 0.5, Neutrophils # (Auto ) 3.51, Lymphocytes # (Auto) 1.33, Monocytes # (Auto) 0.63, Eosinophils # (Auto ) 0.15, Basophils # (Auto) 0.03 09/09/17 12:15 Test 09/09/17 12:15 09/09/17 12:35 White Blood Count 5.66 K/uL (4.8-10.8) Red Blood Count 3.97 M/uL (4.7-6.1) Hemoglobin 11.8 g/dL (14.0-18.0) Hematocrit 36.6 % (42-52) Mean Corpuscular Volume 92.2 fL (80-100) Mean Corpuscular Hemoglobin 29.7 pg (25-34) Mean Corpuscular Hemoglobin Concent 32.2 g/dl (32-36) Platelet Count 188 K/uL (130-400) Mean Platelet Volume 10.6 fL (7.4-10.4) Neutrophils (%) (Auto) 62.0 % Lymphocytes (%) (Auto) 23.5 % Monocytes (%) (Auto) 11.1 % Eosinophils (%) (Auto) 2.7 % Basophils (%) (Auto) 0.5 % Neutrophils # (Auto) 3.51 K/uL (1.4-6.5) Lymphocytes # (Auto) 1.33 K/uL (1.2-3.4) Monocytes # (Auto) 0.63 K/uL (0.11-0.59) Eosinophils # (Auto) 0.15 K/uL (0-0.5) Basophils # (Auto) 0.03 K/uL (0-0.2) RDW Standard Deviation 49.7 fL (36.4-46.3) RDW Coefficient of Variation 14.5 % (11.5-14.5) Immature Granulocyte % (Auto) 0.2 % Immature Granulocyte # (Auto) 0.01 K/uL (0.00-0.02) Prothrombin Time 18.4 SECONDS (9.0-12.0) Prothromb Time International Ratio 1.8 (0.9-1.1) Activated Partial Thromboplast Time 33.4 SECONDS (21.0-31.0) Partial Thromboplastin Ratio 1.3 Anion Gap 7.0 mmol/L (3-11) Est Creatinine Clear Calc Drug Dose 43.1 ml/min Estimated GFR () 47.2 Estimated GFR (Non- 40.7 BUN/Creatinine Ratio 13.9 (10-20) Calcium Level 8.4 mg/dl (8.5-10.1) Urine Color YELLOW Urine Appearance CLEAR (CLEAR) Urine pH 5.5 (4.5-7.5) Urine Specific Lambert 1.014 (1.000-1.030) Urine Protein TRACE (NEG) Urine Glucose (UA) NEG (NEG) Urine Ketones NEG (NEG) Urine Occult Blood TRACE (NEG) Urine Nitrite NEG (NEG) Urine Bilirubin NEG (NEG) Urine Urobilinogen NEG (NEG) Urine Leukocyte Esterase NEG (NEG) Urine WBC (Auto) 1-5 /hpf (0-5) Urine RBC (Auto) 0-4 /hpf (0-4) Urine Hyaline Casts (Auto) 1-5 /lpf (0-5) Urine Epithelial Cells (Auto) >30 /lpf (0-5) Urine Bacteria (Auto) NEG (NEG) Urine Renal Epithelial Cells 0-5 /lpf (0-5) Labs reviewed by ED physician. Medications Administered Medications (Trade) Dose Ordered Sig/Zaina Route Start Time Stop Time Status Last Admin Dose Admin Hydromorphone HCl (Dilaudid Inj) 0.5 mg Q20M PRN IV 09/09/17 12:00 09/09/17 16:13 DC 09/09/17 13:28 0.5 MG Ondansetron HCl (Zofran Inj) 4 mg NOW STAT IV 09/09/17 12:00 09/09/17 12:03 DC 09/09/17 12:24 4 MG ECG Per My Interpretation Indication: other (fall) Rate (beats per minute): 81 Rhythm: atrial fibrillation Findings: PVC, other (No ST elevation or depression. ) ED Course 1155: Past medical records reviewed. The patient was evaluated in room C7. A complete history and physical examination was performed. 1200: Ordered Zofran Inj 4 mg IV, Dilaudid Inj 0.5 mg IV. Medical Decision Differential diagnosis: Etiologies such as fracture, dislocation, neurovascular compromise, compartment syndrome, soft tissue injury, as well as others were entertained. This is an 82-year-old male who presents emergency department after a fall at a[employer] The patient does not appear to have any fractures on x-ray therefore he was sent for CAT scan of the pelvis. This was also found to be negative. I offered the patient stated a rehabilitation facility however he is adamantly refusing. The patient was given Dilaudid for his pain and was started on oxygen at home. I encouraged him to follow-up with orthopedics. Patient and are in agreement with the treatment plan. Medication Reconcilliation Current Medication List: was personally reviewed by me Blood Pressure Screening Patient's blood pressure: Normal blood pressure Blood pressure disposition: Did not require urgent referral Impression Primary Impression: Fall Additional Impression: Hip pain Scribe Attestation The scribe's documentation has been prepared under my direction and personally reviewed by me in its entirety. I confirm that the note above accurately reflects all work, treatment, procedures, and medical decision making performed by me. Departure Information Dispostion Home / Self-Care Prescriptions Docusate Sodium (COLACE) 100 Mg Cap 1 CAP PO BID for 30 Days, #60 CAP Prov: Conrad Morris MD 09/09/17 Senna (Senokot) 8.6 Mg Tab 1 TAB PO HS for 30 Days, #30 TAB Prov: Conrad Morris MD 09/09/17 Oxycodone Immediate Rel Tab (ROXICODONE IR) 5 Mg Tab 1-2 TAB PO Q4H Y for Severe Pain, #14 TAB Prov: Conrad Morris MD 09/09/17 Referrals No Doctor, Assigned (PCP) Patient Instructions My [facility] Problem Qualifiers Primary Impression: Fall Encounter type: initial encounter Qualified Codes: W19.XXXA - Unspecified fall, initial encounter Additional Impression: Hip pain Laterality: unspecified laterality Qualified Codes: M25.559 - Pain in unspecified hip
== END 2017-09-09 14:50 | disposition home or self-care (01) ==
LOC: C.EDB 11:01 → C.EDC 14:50
DX: M25.559 Pain in unspecified hip (principal); W01.0XXA Fall on same level from slipping, tripping and stumbling without subsequent striking against object, initial encounter; E11.649 Type 2 diabetes mellitus with hypoglycemia without coma; N18.9 Chronic kidney disease, unspecified; I12.9 Hypertensive chronic kidney disease with stage 1 through stage 4 chronic kidney disease, or unspecified chronic kidney disease; Z79.84 Long term (current) use of oral hypoglycemic drugs; Z79.01 Long term (current) use of anticoagulants; Z96.659 Presence of unspecified artificial knee joint; Z96.649 Presence of unspecified artificial hip joint; Z79.899 Other long term (current) drug therapy; Z83.3 Family history of diabetes mellitus; Z82.49 Family history of ischemic heart disease and other diseases of the circulatory system

== ENCOUNTER → 2017-09-14 | Outpatient (CLI) | payer OTHER ==
[~2017-09-14] MED LIST changes: -CALC500C70 PO; +DOCU-94 PO; -MGNO400 PO; +OXYC1TAB3 PO; +SENN-61 PO; -WARF2.5T8 PO
== END | disposition home or self-care (01) ==
LOC: C.PATHSPEC 16:57
PROVIDERS: ATTEND Internal Medicine
DX: D04.61 Carcinoma in situ of skin of right upper limb, including shoulder (principal)

== ENCOUNTER → 2017-09-24 | Outpatient (CLI) | payer OTHER ==
[2017-09-24 18:18] LABS: INR 1.7 (0.9-1.1)
== END | disposition home or self-care (01) ==
LOC: C.LABSPEC 16:34
PROVIDERS: ATTEND Internal Medicine
DX: Z79.01 Long term (current) use of anticoagulants (principal)

== ENCOUNTER → 2017-10-14 | Outpatient (CLI) | payer OTHER ==
[~2017-10-14] MED LIST changes: -DOCU-94 PO; -SENN-61 PO
[2017-10-14 12:45] LABS: INR 2.4 (0.9-1.1)
== END | disposition home or self-care (01) ==
LOC: C.LABSPEC 12:22
PROVIDERS: ATTEND Internal Medicine
DX: I48.91 Unspecified atrial fibrillation (principal); Z79.01 Long term (current) use of anticoagulants

== ENCOUNTER → 2017-12-29 | Outpatient (CLI) | payer OTHER ==
[~2017-12-29] MED LIST changes: +OXYC-737 PO; -OXYC1TAB3 PO
[2017-12-29 14:28] LABS: INR 1.7 (0.9-1.1)
[2017-12-29 14:34] LABS: BLOOD UREA NITROGEN 18 mg/dl (7-18); CALCIUM 8.3 mg/dl (8.5-10.1); CARBON DIOXIDE 21 mmol/L (21-32); CHOLESTEROL 125 mg/dl (0-200); CREATININE 1.69 mg/dl (0.60-1.40); GLUCOSE 111 mg/dl (70-99); LDL CHOLESTEROL (DIRECT) 69 mg/dl; POTASSIUM 4.5 mmol/L (3.5-5.1); SODIUM 142 mmol/L (136-145)
[2017-12-29 14:49] LABS: HEMOGLOBIN A1C 6.5 % (4.5-5.6)
== END | disposition home or self-care (01) ==
LOC: C.LABSPEC 13:39
PROVIDERS: ATTEND Internal Medicine
DX: I48.91 Unspecified atrial fibrillation (principal); Z79.01 Long term (current) use of anticoagulants; R73.9 Hyperglycemia, unspecified; E78.5 Hyperlipidemia, unspecified

== ENCOUNTER 2019-02-10 05:41 | Observation (INO) ==
[2019-02-10 06:47] LABS: Basophils # (auto) 0.03 K/uL (0-0.2); Basophils % (auto) 0.4 %; Eosinophils # (auto) 0.23 K/uL (0-0.5); Eosinophils % (auto) 3.3 %; Hematocrit (blood only) 34.2 % (42-52); Hemoglobin 11.2 g/dL (14.0-18.0); Immature Granulocytes # (auto) 0.01 K/uL (0.00-0.02); Immature Granulocytes % (auto) 0.1 %; Lymphocytes # (auto) 1.69 K/uL (1.2-3.4); Lymphocytes % (auto) 24.3 %; Mean Corpuscular Hgb Conc 32.7 g/dL (32-36); Mean Corpuscular Volume 96.9 fL (80-100); Mean Platelet Volume 10.5 fL (7.4-10.4); Monocytes # (auto) 0.58 K/uL (0.11-0.59); Monocytes % (auto) 8.3 %; Neutrophils # (auto) 4.41 K/uL (1.4-6.5); Neutrophils % (auto) 63.6 %; Platelet Count 203 K/uL (130-400); RDW Coefficient of Variation 15.7 % (11.5-14.5); RDW Standard Deviation 55.5 fL (36.4-46.3); Red Blood Count 3.53 M/uL (4.7-6.1); White Blood Count 6.95 K/uL (4.8-10.8)
--- NOTE | 2019-02-10 06:53 | XRay Report ---
XR chest 1V portable HISTORY: 83 years-old Male chest pain acute left-sided chest pain COMPARISON: Chest CT 01/24/2019 TECHNIQUE: Portable AP view of the chest FINDINGS: Cardiomediastinal and hilar silhouettes are within normal limits. No pneumothorax, pleural effusion, focal airspace consolidation or overt pulmonary edema. Degenerative changes of the right shoulder and spine. Left shoulder arthroplasty. IMPRESSION: No acute process. The above report was generated using voice recognition software. It may contain grammatical, syntax o r spelling errors. Electronically signed by: Slim Armenta M.D. 02/10/2019 6:51 AM
[2019-02-10 06:55] LABS: Alanine Aminotransferase 34 U/L (12-78); Albumin Level 2.6 gm/dl (3.4-5.0); Aspartate Aminotransferase 26 U/L (15-37); BUN Creatinine Ratio 14.6 (10-20); Blood Urea Nitrogen 28 mg/dl (7-18); Carbon Dioxide 26 mmol/L (21-32); Chloride 115 mmol/L (98-107); Creatinine Clr Calc Pharmacy 33.4 ml/min; Est GFR (African American) 36.8; Est GFR (Non-African American) 31.7; Glucose 87 mg/dl (70-99); Magnesium 1.8 mg/dl (1.8-2.4); Potassium 4.4 mmol/L (3.5-5.1); Sodium 144 mmol/L (136-145)
[2019-02-10 07:06] LABS: Albumin Globulin Ratio 0.7 (0.9-2); Alkaline Phosphatase 92 U/L (45-117); Bilirubin,Total 0.4 mg/dl (0.2-1); Globulin 3.8 gm/dl (2.5-4.0); NT Pro B Type Natriuretic Pept 4605 pg/ml (0-1800); Total Protein 6.4 gm/dl (6.4-8.2); Troponin I < 0.015 ng/ml (0-0.045)
[2019-02-10 07:40] LABS: Prothrombin Time 60.2 Seconds (9.0-12.0)
[2019-02-10 07:45] LABS: D Dimer 610 ug/L FEU (0-500); INR 6.7 (0.9-1.1)
[2019-02-10] MEDS ORDERED: ALUMINUM/MAGNESIUM SUSP 30 ML UDC PO PRN (11:28)
[2019-02-10] MEDS ORDERED: NITROGLYCERIN SL 0.4 MG/TAB TAB SL PRN (11:28)
[2019-02-10] MEDS ORDERED: TRAMADOL HCL 50 MG TABLET PO PRN (11:28)
[2019-02-10] MEDS ORDERED: POLYETHYLENE (MIRALAX) 17 GM PACK PO PRN (11:28)
[2019-02-10] MEDS ORDERED: MAGNESIUM HYDROXIDE SUSP 30 ML UDC PO PRN (11:28)
[2019-02-10] MEDS ORDERED: ACETAMINOPHEN 325 MG TAB PO PRN (11:28)
[2019-02-10] MEDS ORDERED: ONDANSETRON INJ 2 MG/ML 2 ML VIAL IV PRN (11:28)
--- NOTE | 2019-02-10 13:09 | History & Physical Report ---
Date of Service February 10, 2019 Assessment & Plan (1) Chest pain: 83 yo M PMHx paroxysmal AFib on chronic AC with warfarin, CKD stage 3, DM2 not on medical therapy presenting with atypical chest pain with moderate risk of major adverse cardiac event with history of musculoskeletal trauma. Chest pain - Pt's pain is likely musculoskeletal in origin given his description of having lifted objects that are much too heavy and "overdoing it". The pain itself is atypical of cardiac chest pain, and the substernal pain has been constant since his arrival at the hospital. No episodes of the jolting pain up the left arm he described as having at home. - First trop negative and EKG negative for ischemia. Given multiple cardiac risk factors have ordered a repeat trop and will consider stress Echo. - Dobutamine stress echo 08/2017: 55-60% LVEF, no ST or T wave changes or wall motion abnormalities during the duration of the testing. - Will follow up in afternoon and pending trop and possibly stress test may be able to be discharged later today. CKD - Cr ~2.0 at baseline for the last 8-10 months. Continue home bicarb per outpatient nephrology recommendations. - Take care with use of contrast given CKD. Atrial fibrillation - Continue home metoprolol. - In AFib at this time but asymptomatic. - Hold coumadin given elevated INR. Elevated TSH - TSH elevated to 22.3 in hospital, no history of thyroid disease. No palpitations, hot or cold intolerance, signs or symptoms of hypothyroidism - This finding is likely unrelated to his current presentation. Will have him follow up with his PCP and may consider starting levo prior to discharge. Anemia - No signs or symptoms of active bleeding; Hgb 11.2. - No intervention at this time. GERD - continue home pantoprazole (2) Chronic kidney disease: (3) Atrial fibrillation with RVR: (4) Anemia: (5) Elevated TSH: (6) Elevated INR: (7) GERD (gastroesophageal reflux disease): History of Present Illness Chief Complaint: chest pain Primary Care Provider: Spencer Baltazar MD 83 yo M PMHx significant for paroxysmal AFib on chronic anticoagulation with warfarin, CKD stage 3, DM2, and BPH s/p prostatectomy initially presented for 4 hours of sharp "electricity-like" pain that radiated from his left arm to his left chest wall which woke him up from sleep around 3AM. The pain resolved without any medications or interventions and he fell back asleep, then experienced the pain again around 5AM. This second spell caused him enough concern to come to the hospital. In hospital EKG showed AFib but no STEMI, trops negative, CXR negative for infection, d-dimer elevated, Hgb 11.2 in the setting of elevated INR but no symptoms of weakness or dizziness, no bloody BMs or hematuria, Cr at baseline. On interview patient reports that yesterday evening he was lifting wooden beams at home that are between 50 and 100 lbs, and at the time of lifting he did not have any chest pain but was woken up by the pain in his left arm and shoulder areas. Denies any associated shortness of breath, diaphoresis, abdominal pain, changes in bowels or bladder. Of note, pt is on chronic AC for AFib which he reports that he cannot feel when he is in it. His INR on outpatient lab check was elevated to 7.1 and he was told to discontinue coumadin for three days; first day off was yesterday 02/09/19. Only significant family history is in the form of his father who from a heart attack in his 70s. Otherwise no recollection of any PFHx. Does not drink alcohol or smoke cigarettes for over ten years, no recreational drug use. Allergies Allergy/AdvReac Type Severity Reaction Status Date / Time hydrocodone Allergy Unknown Verified 02/10/19 06:28 Home Medications Home Medications Medication Instructions Recorded Confirmed Type calcium carbonate-vitamin D3 1 tab PO BID 03/02/18 02/10/19 History [Calcium 500 With D] metoprolol tartrate 100 mg PO BID 03/02/18 02/10/19 History multivitamin [Men's Multi-Vitamin] 1 tab PO DAILY 03/02/18 02/10/19 History omeprazole 40 mg PO BID 03/02/18 02/10/19 History vitamin B complex 1 tab PO DAILY 03/02/18 02/10/19 History warfarin [Coumadin] 5 mg PO DAILY 03/02/18 02/10/19 History tramadol 50 mg PO Q6HWA PRN 07/02/18 02/10/19 History sodium bicarbonate 650 mg tablet 650 mg PO BID #60 tab 01/05/19 02/10/19 Rx Past Med/Surg History Medical History Malfunction of Lynch catheter Abdominal pain Chest wall contusion Atrial fibrillation with RVR (11/07/13) Complication of catheter Malfunction of Lynch catheter Weakness Anemia Bradycardia Left arm pain CKD (chronic kidney disease) Hypoglycemia Neck pain Contusion, chest wall Left shoulder pain Shoulder pain, left Lynch catheter problem Abdominal pain Fall Anal fistula Infection of anterior lower leg S/P prostatectomy BPH w urinary obs/LUTS Hip pain Surgical History H/O shoulder replacement H/O gastric bypass Family History Other No significant family history Social History Preferred Language: Citizen Of [place] Communication Ability: Effective Pvc Loader Required: No Beliefs That Will Affect Care: None Current Living Situation: Significant Other Current Living Situation Comment: lives with ex- Other Information That Helps Us Care for You: No Feels Safe at Home: Yes Safety Concerns: Feels Safe At This Time Smoking Status: Former smoker Do You Dip or Chew Tobacco: No ; Second Hand Exposure: No ; Tobacco Cessation Education Requested by Patient: No Hx Alcohol Use: No Hx Substance Use: No Review of Systems Review of Systems: see hpi for further details. Constitutional: no fever, no chills and no weakness Respiratory: no cough, no dyspnea and no wheezing Cardiovascular: + chest pain; no dyspnea on exertion, no palpitations and no edema Gastrointestinal: no abdominal pain, no nausea, no vomiting, no constipation and no diarrhea/loose stools Genitourinary: no dysuria and no hematuria Musculoskeletal: L shoulder pain at baseline. Physical Exam Constitutional: WD/WN, vitals as above Respiratory: normal respiratory effort, lungs clear to auscultation Cardiovascular: Rate/Rhythm: + irregularly irregular Heart Sounds: normal S1 and normal S2; no murmur Chest (Breasts): Additional Comments: Reproducible tenderness to palpation of xiphoid process, however it is not freely mobile, no ecchymosis. Gastrointestinal (Abdomen): normal bowel sounds, soft, nontender, no hepatosplenomegaly Musculoskeletal: no cyanosis or clubbing, extremities motor strength 5/5 mor strength left arm somewhat convoluted by pain, has a history of shoulder repair. Skin: no rashes, warm and dry Psychiatric: A+Ox3, euthymic affect Results & Data Vital Signs (Past 12 Hours) Vital Signs Temp Pulse Pulse Resp BP BP Pulse Ox 02/10/19 11:36 36.5 C 74 18 117/71 97 02/10/19 10:46 95 H 16 148/82 H 98 02/10/19 09:26 103 H 18 137/67 99 02/10/19 07:47 87 16 123/67 98 02/10/19 05:50 36.7 C 84 20 146/76 H 95 Code Status & VTE Plan VTE Prophylaxis Plan VTE Prophylaxis will be ordered: Yes Supervising Physician Co-Signing Physician Notes I personally examined the patient and verified all medina points of history and exam, discussed case, and agree with decision making with Dr Person. Chest pain starting about 3 AM. Upper left arm and across chest, but also separately a little bit of substernal heaviness that he is a more difficult time describing. He was lifting very heavy wood yesterday. Vitals noted, in general he is awake and alert pleasant no distress. HEENT normal cephalic atraumatic mucous members are moist. Cardio is regular without rubs murmurs gallops. Lungs are clear to auscultation bilaterally no rales rhonchi or wheeze good effort. Skin shows no rashes no pallor or icterus. Musculoskeletal exam his pain is not reproducible. Neuro shows no focal deficits. EKG A. fib without ischemia, troponin negative. Chest painseems most likely to be musculoskeletal. His history fits the most with that, his troponin and EKG being negative are quite reassuring. That said although he is somewhat atypical symptoms he has high risk. We will check follow-up troponin, and then if it is negative, we will give strong consideration to stress testing either as an inpatient or as an outpatient. Otherwise as above PG Care Time/CCT Total # of Minutes Spent Total Time Spent with Patient: Total time spent is greater than 50% in coordination of care (as documented) at patient's floor/unit and/or counseling patient: Resident Activity Tracking Resident Involvement: Resident Care Provided Care Provided: Adult Hospital Medicine (1) Chronic kidney disease Chronic kidney disease stage: unspecified stage Qualified Code(s): N18.9 - Chronic kidney disease, unspecified (2) Chest pain Chest pain type: unspecified Qualified Code(s): R07.9 - Chest pain, unspecified
[2019-02-10] MEDS ORDERED: ATROPINE SULFATE 0.1 MG/ML 10ML SYR IV ONE (13:57)
[2019-02-10] MEDS ORDERED: DOBUTamine HCL 12.5 MG/ML 20 ML VIAL IV ONE (13:57)
[2019-02-10] MEDS ORDERED: METOPROLOL TARTRATE 1 MG/ML VIAL IV ONE (13:57)
--- NOTE | 2019-02-10 17:18 | Discharge Summary ---
Date of Service February 10, 2019 Admission HPI Per Admitting Provider 83 yo M PMHx significant for paroxysmal AFib on chronic anticoagulation with warfarin, CKD stage 3, DM2, and BPH s/p prostatectomy initially presented for 4 hours of sharp "electricity-like" pain that radiated from his left arm to his left chest wall which woke him up from sleep around 3AM. The pain resolved without any medications or interventions and he fell back asleep, then experienced the pain again around 5AM. This second spell caused him enough concern to come to the hospital. In hospital EKG showed AFib but no STEMI, trops negative, CXR negative for infection, d-dimer elevated, Hgb 11.2 in the setting of elevated INR but no symptoms of weakness or dizziness, no bloody BMs or hematuria, Cr at baseline. On interview patient reports that yesterday evening he was lifting wooden beams at home that are between 50 and 100 lbs, and at the time of lifting he did not have any chest pain but was woken up by the pain in his left arm and shoulder areas. Denies any associated shortness of breath, diaphoresis, abdominal pain, changes in bowels or bladder. Of note, pt is on chronic AC for AFib which he reports that he cannot feel when he is in it. His INR on outpatient lab check was elevated to 7.1 and he was told to discontinue coumadin for three days; first day off was yesterday 02/09/19. Only significant family history is in the form of his father who from a heart attack in his 70s. Otherwise no recollection of any PFHx. Does not drink alcohol or smoke cigarettes for over ten years, no recreational drug use. Admission Exam Per Admitting Provider Constitutional: WD/WN, vitals as above Respiratory: normal respiratory effort, lungs clear to auscultation Cardiovascular: Rate/Rhythm: + irregularly irregular Heart Sounds: normal S1 and normal S2; no murmur Chest (Breasts): Additional Comments: Reproducible tenderness to palpation of xiphoid process, however it is not freely mobile, no ecchymosis. Gastrointestinal (Abdomen): normal bowel sounds, soft, nontender, no hepatosplenomegaly Musculoskeletal: no cyanosis or clubbing, extremities motor strength 5/5 strength left arm somewhat convoluted by pain, has a history of shoulder repair. Skin: no rashes, warm and dry Psychiatric: A+Ox3, euthymic affect Principal Diagnosis Chest wall muscle strain Discharge Exam Constitutional WD/WN, vitals as above Respiratory normal respiratory effort, lungs clear to auscultation Cardiovascular Rate/Rhythm: + irregularly irregular Heart Sounds: normal S1 and normal S2; no murmur Gastrointestinal (Abdomen) normal bowel sounds, soft, nontender, no hepatosplenomegaly Musculoskeletal no cyanosis or clubbing, extremities motor strength 5/5 Skin no rashes, warm and dry Psychiatric A+Ox3, euthymic affect Discharge Data Allergies Allergy/AdvReac Type Severity Reaction Status Date / Time hydrocodone Allergy Unknown Verified 02/10/19 06:28 Consultations 02/10/19 07:41 ED Decision to Admit Stat Hospital Course (1) Chest pain: 83 yo M PMHx paroxysmal AFib on chronic AC with warfarin, CKD stage 3, DM2 not on medical therapy presenting with atypical chest pain with moderate risk of major adverse cardiac event with history of musculoskeletal trauma, with ne gative cardiac workup and resolution of chest pain at this time. Chest pain due to chest wall muscle strain - Pt originally admitted to obs to trend troponin and possibly do a stress test. - Pt's pain is likely musculoskeletal in origin given his description of having lifted objects that are much too heavy and "overdoing it". Still no episodes of the jolting pain up the left arm he described as having at home, and substernal pain has resolved at this time. - Cardiac workup was negative for ischemia and LVEF unchanged from last year. - Have advised patient to take it easy regarding heavy lifting especially given multiple injuries recently trying to do different housework. He may take tylenol as needed for his pain. Avoid NSAIDs due to CKD. CKD - Cr ~2.0 at baseline for the last 8-10 months. Continue home bicarb per outpatient nephrology recommendations. Atrial fibrillation - Continue home metoprolol. - In AFib at this time but asymptomatic. - Hold coumadin given elevated INR. Scheduled for recheck on Wednesday and go from there. Elevated TSH - TSH elevated to 22.3 in hospital and FT4 0.58, no history of thyroid disease. No palpitations, hot or cold intolerance, signs or symptoms of hypothyroidism. - This finding is likely unrelated to his current presentation. Will have him follow up with his PCP for consideration for Synthroid therapy. Anemia/Elevated INR - No signs or symptoms of active bleeding; Hgb 11.2, INR 6.7 here in hospital. - Already advised by his PCP to hold coumadin until redraw on Wednesday. - No signs or symptoms of bleeding. No intervention at this time. GERD - continue home pantoprazole. (2) Chronic kidney disease: (3) Atrial fibrillation with RVR: (4) Anemia: (5) Elevated TSH: (6) Elevated INR: (7) GERD (gastroesophageal reflux disease): (8) Chest wall muscle strain: Total Time Total Time Spent Total Time Spent (In Minutes): 30 minutes Discharge Plan Discharge Items Patient Disposition: Home - Self-Care Reason For Visit: CHEST PAIN Discharge Diagnosis: chest wall muscle strain Discharge Goals: Learn about illness and Prevent disease Activity: Resume your previous activity Non-emergency contact: Primary Care Provider Call non-emergency contact if: you have any medication questions, your symptoms worsen and your temperature is above 100.5 Follow-up/Referrals: Spencer Baltazar MD [Primary Care Provider] - Diet: Heart Healthy Addtl Provider Instructions: You were admitted to the hospital due to your chest pain. We did a number of tests to make sure that you were not having a heart attack, which you were not. We checked your lungs which were healthy on . Your chest pain was likely due to your heavy lifting that you did yesterday. When returning to physical activity, be sure to take it slow. Be honest with yourself regarding what your body can handle. You can take Tylenol over the counter for your pain. On your labwork it was found that one of your thyroid hormones was high, which means that your thyroid is not quite functioning the way it should. Please schedule a follow up appointment with Dr. Ignacia Pickard within 7 days to discuss both your chest pain and your thyroid function tests. Your INR was still high on this admission. Please hold off on taking your coumadin until you find out what your new INR is on Wednesday. Prescriptions: Continued sodium bicarbonate 650 mg tablet 650 mg PO BID Qty: 60 RF: 3 tramadol 50 mg tablet 50 mg PO Q6HWA PRN (Reason: pain) RF: 0 multivitamin [Men's Multi-Vitamin] Tablet 1 tab PO DAILY RF: 0 metoprolol tartrate 100 mg Tablet 100 mg PO BID RF: 0 omeprazole 40 mg Capsule,Delayed Release(Dr/Ec) 40 mg PO BID RF: 0 warfarin [Coumadin] 5 mg Tablet 5 mg PO DAILY RF: 0 vitamin B complex Tablet 1 tab PO DAILY RF: 0 calcium carbonate-vitamin D3 [Calcium 500 With D] 500 mg(1,250mg) -400 unit Tablet 1 tab PO BID RF: 0 Stand-Alone Forms: [facility] Discharge Orders: Discharge Order (Routine); Ordered 02/10/19 Ordered By: Skye Person Admission Data Admit Date/Time: 02/10/19 09:24 Attending Provider: Flo Lambert Admit Provider: Flo Lambert Primary Care Provider: Spencer Baltazar Other Providers: Flo Lambert Service: Telemetry Other Interventions: Discharge Summary Assessment (RN) Last Done: 02/10/19 17:14 DC Date/Time DO NOT enter until pt leaves facility: 02/10/19 17:34 Supervising Physician Co-Signing Physician Notes I personally examined the patient and verified all [place] points of history and exam, discussed case, and agree with decision making with Dr Person. See H&P same day. Doing better. Pain resolved. Troponins negative and stress echo negative. Vitals noted, in general he is awake and alert pleasant no distress. HEENT normal cephalic atraumatic mucous members are moist. Breathing unlabored no accessory muscle use good effort. Skin shows no rashes no pallor or icterus. Follow-up troponin negative, stress echo negative. Chest painseems most likely to be musculoskeletal. His history fits the most with that, his troponin and EKG being negative are quite reassuring. Further work-up with a follow-up troponin and a stress echo were negative as well. He is safe for discharge home, PCP follow-up. Supratherapeutic INRhold Coumadin until his INR is to be checked on Wednesday Elevated TSH/presumed hypothyroidismfollow-up in short order with PCP. Otherwise as above Resident Activity Tracking Resident Involvement: Resident Care Provided Care Provided: Adult Hospital Medicine
[2019-02-10] MEDS ORDERED: METOPROLOL TARTRATE 100 MG TAB PO SCH (21:00)
[2019-02-10] MEDS ORDERED: SODIUM BICARBONATE 650 MG TAB PO SCH (21:00)
[2019-02-10] MEDS ORDERED: CALCIUM 600MG + VIT D 400 IU TAB PO SCH (21:00)
[2019-02-10] MEDS ORDERED: PANTOprazole 40 MG TAB PO SCH (21:00)
[2019-02-11] MEDS ORDERED: VITAMIN B COMPLEX TAB PO SCH (09:00)
[2019-02-11] MEDS ORDERED: MULTIVITAMIN TAB PO SCH (09:00)
[2019-02-11] MEDS ORDERED: WARFARIN SOD 5 MG TAB PO SCH (16:00)
--- NOTE | 2019-02-11 16:39 | Emergency Department Note ---
Entered by Zoie Melgar acting as a scribe for Ariela Pool DO History of Present Illness General Chief complaint: Chest Pain Stated complaint: CHEST PAIN,PAIN IN LFT ARM Time Seen by Provider: 02/10/19 05:57 Source: patient Limitations: no limitations History of Present Illness Onset (ago): hour(s) 3 Location: chest Radiation: other (no radiation to jaw) Pain Consistency: + intermittent Maximum Pain Intensity: 5 Quality: + other (intermittent chest pain) Associated symptoms: + shortness of breath and + weakness; no nausea/vomiting The patient is a 83 year old male who presents to the Emergency Room with complaints of intermittent chest pain that began at 0300 this morning, about 3 hours ago. He reports that he woke up at 03:00 with left arm pain, "from his knuckles to his shoulder." The patient notes that he went to the bathroom, and the chest pain began when he got back into bed. He reports that the symptoms relieved, but then a similar episode occurred again at 05:00. The patient denies any radiation to his neck/jaw. He complains of SOB that accompanies the chest pain and weakness throughout the day yesterday. The patient reports that he still feels weak. He denies any nausea and lower extremity swelling. He notes that he is prescribed Coumadin for his history of A-fib. The patient reports that he has been taking medicine for a yeast infection. He notes a history of GERD, stating the symptoms do not feel similar. No recent trauma or change in activity. Home Medications Home Medications Medication Instructions Recorded Confirmed Type calcium carbonate-vitamin D3 1 tab PO BID 03/02/18 02/10/19 History [Calcium 500 With D] metoprolol tartrate 100 mg PO BID 03/02/18 02/10/19 History multivitamin [Men's Multi-Vitamin] 1 tab PO DAILY 03/02/18 02/10/19 History omeprazole 40 mg PO BID 03/02/18 02/10/19 History vitamin B complex 1 tab PO DAILY 03/02/18 02/10/19 History warfarin [Coumadin] 5 mg PO DAILY 03/02/18 02/10/19 History tramadol 50 mg PO Q6HWA PRN 07/02/18 02/10/19 History sodium bicarbonate 650 mg tablet 650 mg PO BID #60 tab 01/05/19 02/10/19 Rx Allergies Allergy/AdvReac Type Severity Reaction Status Date / Time hydrocodone Allergy Unknown Verified 02/10/19 06:28 Past Med/Surg History Medical History Malfunction of Lynch catheter Abdominal pain Chest wall contusion Atrial fibrillation with RVR (11/07/13) Complication of catheter Malfunction of Lynch catheter Weakness Anemia Bradycardia Left arm pain CKD (chronic kidney disease) Hypoglycemia Neck pain Contusion, chest wall Left shoulder pain Shoulder pain, left Lynch catheter problem Abdominal pain Fall Anal fistula Infection of anterior lower leg S/P prostatectomy BPH w urinary obs/LUTS Hip pain Surgical History H/O shoulder replacement H/O gastric bypass Family History Other No significant family history Social History Preferred Language: Gambian Communication Ability: Effective Chief Radiation Therapist Required: No Beliefs That Will Affect Care: None Current Living Situation: Significant Other Current Living Situation Comment: lives with ex- Other Information That Helps Us Care for You: No Feels Safe at Home: Yes Safety Concerns: Feels Safe At This Time Smoking Status: Former smoker Do You Dip or Chew Tobacco: No ; Second Hand Exposure: No ; Tobacco Cessation Education Requested by Patient: No Hx Alcohol Use: No Hx Substance Use: No Review of Systems See HPI for pertinent positives & negatives. and A total of 10 systems reviewed and were otherwise negative Physical Exam Vital Signs Vital Signs - 24 hr 02/10/19 05:50 02/10/19 06:19 Temperature 98.1 F Temperature Source Oral Sepsis Recent Fever Within 48 Hours No Sepsis New/Unexplained Change in Mental Status No Sepsis Action Taken by Nursing No Action Required Pulse Rate 84 Respiratory Rate 20 Blood Pressure 146/76 H Blood Pressure Mean 99 Pulse Oximetry 95 Oxygen Delivery Method Room Air Room Air GENERAL: tearful, alert, well appearing, well nourished, no distress, non-toxic EYE EXAM: normal conjunctiva, PERRL and EOM's grossly intact OROPHARYNX: no exudate, no erythema, lips, buccal mucosa, and tongue normal and mucous membranes are moist NECK: supple, no nuchal rigidity, no adenopathy, non-tender LUNGS: Clear to auscultation. Normal chest wall mechanics, no w/r/r CHEST: Slight chest wall tenderness inferiorly with palpation. HEART: no murmurs, S1 normal and S2 normal ABDOMEN: abdomen soft, non-tender, normo-active bowel sounds, no masses, no rebound or guarding. BACK: Back is symmetrical on inspection and there is no deformity, no midline tenderness, no CVA tenderness. SKIN: no rashes and no bruising, no petechiae UPPER EXTREMITIES: upper extremities are grossly normal. FROM, nml pulses b/l. LOWER EXTREMITIES: 2+ lower extremity edema. FROM, nml pulses b/l. NEURO EXAM: Normal sensorium, cranial nerves II-XII grossly intact, normal speech, no gross weakness of arms, no gross weakness of legs. Course 0616: The patient was evaluated in room A03. A complete history and physical exam was performed. 0714: I reevaluated the patient, and he denies any current chest pain or arm pain. I updated the patient on his results. 0735: I spoke with Dr. Lambert, [facility] hospitalist, about the patients case. He will further evaluate the patient. PT/INR pending. Consultations Consultation #1: I spoke with Dr. Lambert, [facility] hospitalist, about the patients case. He will further evaluate the patient. Time: 07:35 Administered Medications Discontinued Medications Acetaminophen (Tylenol) 650 mg PO Q4H PRN PRN Reason: Pain or Fever Stop: 03/12/19 11:27 Last Admin: 02/10/19 12:24 Dose: 650 mg Documented by: [id number] Atropine Sulfate (Atropine Sulfate) Confirm Administered Dose 1 mg IV .STK-MED ONE Stop: 02/10/19 13:58 Last Admin: 02/10/19 15:31 Dose: Not Given Documented by: [id number] Dobutamine HCl (Dobutrex) Confirm Administered Dose 250 mg IV .STK-MED ONE Stop: 02/10/19 13:58 Last Admin: 02/10/19 15:32 Dose: Not Given Documented by: [id number] Metoprolol Tartrate (Lopressor) Confirm Administered Dose 10 mg IV .STK-MED ONE Stop: 02/10/19 13:58 Last Admin: 02/10/19 15:32 Dose: Not Given Documented by: [id number] Medical Decision Making Differential Diagnosis Etiologies such as shingles, musculoskeletal pain, pericarditis, myocarditis, cardiac ischemia, pericardial tamponade, pneumonia, pneumothorax, pleural effusion, hemothorax, pleurisy, aortic pathology, pulmonary embolism, intra- abdominal process, as well as others were considered. Medical Records Attestation: I reviewed the patient's medical records. Home Medications Current Medication List: was personally reviewed by me Laboratory Data Attestation: I reviewed the patient's lab results. Result diagrams: 02/10/19 05:55 02/10/19 05:55 Lab Results 02/10/19 02/10/19 02/10/19 Range/Units 05:55 05:55 05:55 WBC 6.95 (4.8-10.8) K/uL RBC 3.53 L (4.7-6.1) M/uL Hgb 11.2 L (14.0-18.0) g/dL Hct 34.2 L (42-52) % MCV 96.9 (80-100) fL MCH 31.7 (25-34) pg MCHC 32.7 (32-36) g/dL RDW Std Deviation 55.5 H (36.4-46.3) fL RDW Coeff of Yinka 15.7 H (11.5-14.5) % Plt Count 203 (130-400) K/uL MPV 10.5 H (7.4-10.4) fL Immature Gran % (Auto) 0.1 % Neut % (Auto) 63.6 % Lymph % (Auto) 24.3 % [place] % (Auto) 8.3 % Eos % (Auto) 3.3 % Baso % (Auto) 0.4 % Immature Gran # (Auto) 0.01 (0.00-0.02) K/uL Neut # (Auto) 4.41 (1.4-6.5) K/uL Lymph # (Auto) 1.69 (1.2-3.4) K/uL [place] # (Auto) 0.58 (0.11-0.59) K/uL Eos # (Auto) 0.23 (0-0.5) K/uL Baso # (Auto) 0.03 (0-0.2) K/uL PT 60.2 H (9.0-12.0) Seconds INR 6.7 H* (0.9-1.1) D-Dimer 610 H* (0-500) ug/L FEU Sodium 144 (136-145) mmol/L Potassium 4.4 (3.5-5.1) mmol/L Chloride 115 H (98-107) mmol/L Carbon Dioxide 26 (21-32) mmol/L Anion Gap 3.0 (3-11) BUN 28 H (7-18) mg/dl Creatinine 1.92 H (0.6-1.4) mg/dl Est Cr Clr Drug Dosing 33.4 ml/min Est GFR ( Amer) 36.8 Est GFR (Non-Af Amer) 31.7 BUN/Creatinine Ratio 14.6 (10-20) Glucose 87 (70-99) mg/dl Calcium 8.0 L (8.5-10.1) mg/dl Magnesium 1.8 (1.8-2.4) mg/dl Total Bilirubin 0.4 (0.2-1) mg/dl AST 26 (15-37) U/L ALT 34 (12-78) U/L Alkaline Phosphatase 92 (45-117) U/L Troponin I < 0.015 (0-0.045) ng/ml NT-Pro-B Natriuret Pep 4605 H (0-1800) pg/ml Total Protein 6.4 (6.4-8.2) gm/dl Albumin 2.6 L (3.4-5.0) gm/dl Globulin 3.8 (2.5-4.0) gm/dl Albumin/Globulin Ratio 0.7 L (0.9-2) Lipase 66 L (73-393) U/L TSH 22.300 H (0.300-4.500) uIu/ml Imaging Data Radiologist's Impression: Radiology results as stated below per my review and the radiologist's interpretation: XR chest 1V portable HISTORY: 83 years-old Male chest pain acute left-sided chest pain COMPARISON: Chest CT 01/24/2019 TECHNIQUE: Portable AP view of the chest FINDINGS: Cardiomediastinal and hilar silhouettes are within normal limits. No pneumothorax, pleural effusion, focal airspace consolidation or overt pulmonary edema. Degenerative changes of the right shoulder and spine. Left shoulder arthroplasty. IMPRESSION: No acute process. The above report was generated using voice recognition software. It may contain grammatical, syntax or spelling errors. Electronically signed by: Slim Armenta M.D. 02/10/2019 6:51 AM ECG Data Attestation: I personally reviewed and interpreted this ECG as follows: Indication: chest pain Rate (beats per minute): 81 Rhythm: atrial fibrillation Findings: + other (PVC noted, normal axis, normal QRS and QTC); no acute ischemic change Blood Pressure Blood Pressure Findings: Elevated blood pressure Blood Pressure Disposition: further management by hospitalist MDM Narrative Pt here with chest pain and LUE pain. No prior hx of CAD. I do not suspect trauma. CXR reassuring. PT/INR pending at time of discussion with hospitalist regarding additional evaluation, however came back elevated. Pt on coumadin for hx of a.fib. VS stable while in the ER. BNP elevated however pt with CKD and CR at baseline, possibly secondary to renal dysfunction. No s/sx of overt CHF. Pt with elevated TSH also, may need additional evaluation for this and f/u as outpt. Pain resolved while in the ER. Discussed with pt possible ddx and jen tional inpatient evaluation. He verbalized understanding and was in agreement. Impression & Plan Chest pain, Chronic kidney disease, Elevated TSH, Elevated INR Discharge Plan Visit Data *Final* Discharge Date/Time: 02/10/19 11:30 Chief Complaint: Chest Pain Stated Complaint: CHEST PAIN,PAIN IN LFT ARM ED Provider: Ariela Pool Discharge Problem: Chest pain, Chronic kidney disease, Elevated TSH, Elevated INR Patient Disposition: Admitted As Inpatient Discharge Instructions Interventions: ED Discharge Assessment Last Done: 02/10/19 11:30 The scribe's documentation has been prepared under my direction and personally reviewed by me in its entirety. I confirm that the note above accurately r eflects all work, treatment, procedures, and medical decision making performed by me.
== END 2019-02-10 17:34 | disposition home or self-care (01) ==
LOC: 1E 05:41 → ED 05:41 → 1E 11:30

== ENCOUNTER 2020-02-23 10:11 | Observation (INO) ==
[2020-02-23] MEDS ORDERED: SODIUM CHLORIDE 0.9% 1000ML 1,000 ML IV STA (10:47)
[2020-02-23] MEDS ORDERED: SODIUM CHLORIDE 0.9% 1000ML 500 ML IV ONE (10:47)
[2020-02-23 11:13] LABS: Basophils # (auto) 0.02 K/uL (0-0.2); Basophils % (auto) 0.2 %; Eosinophils # (auto) 0.01 K/uL (0-0.5); Eosinophils % (auto) 0.1 %; Hemoglobin 11.2 g/dL (14.0-18.0); Immature Granulocytes # (auto) 0.03 K/uL (0.00-0.02); Immature Granulocytes % (auto) 0.2 %; Lymphocytes # (auto) 0.76 K/uL (1.2-3.4); Lymphocytes % (auto) 6.2 %; Mean Corpuscular Hemoglobin 28.3 pg (25-34); Mean Corpuscular Hgb Conc 31.1 g/dL (32-36); Mean Corpuscular Volume 90.9 fL (80-100); Mean Platelet Volume 10.5 fL (7.4-10.4); Monocytes # (auto) 1.19 K/uL (0.11-0.59); Monocytes % (auto) 9.7 %; Neutrophils # (auto) 10.31 K/uL (1.4-6.5); Neutrophils % (auto) 83.6 %; Platelet Count 203 K/uL (130-400); RDW Standard Deviation 53.4 fL (36.4-46.3); Red Blood Count 3.96 M/uL (4.7-6.1); White Blood Count 12.32 K/uL (4.8-10.8)
[2020-02-23 11:34] LABS: Alanine Aminotransferase 13 U/L (12-78); Albumin Level 2.9 gm/dl (3.4-5.0); Aspartate Aminotransferase 11 U/L (15-37); BUN Creatinine Ratio 12.3 (10-20); Blood Urea Nitrogen 22 mg/dl (7-18); Calcium 8.8 mg/dl (8.5-10.1); Carbon Dioxide 22 mmol/L (21-32); Chloride 111 mmol/L (98-107); Est GFR (African American) 39.5; Glucose 148 mg/dl (70-99); Lipase 52 U/L (73-393); Potassium 4.5 mmol/L (3.5-5.1); Sodium 140 mmol/L (136-145)
[2020-02-23 11:39] LABS: Albumin Globulin Ratio 0.7 (0.9-2); Alkaline Phosphatase 80 U/L (45-117); Bilirubin,Total 0.8 mg/dl (0.2-1); Globulin 4.2 gm/dl (2.5-4.0); Total Protein 7.1 gm/dl (6.4-8.2); Troponin I < 0.015 ng/ml (0-0.045)
--- NOTE | 2020-02-23 11:40 | CT Scan Report ---
CT SCAN OF THE ABDOMEN AND PELVIS WITHOUT CONTRAST CLINICAL HISTORY: Left lower quadrant abdominal pain COMPARISON STUDY: 03/02/2018 TECHNIQUE: CT scan of the abdomen and pelvis was performed from the lung bases to the proximal femurs . Images are reviewed in the axial, sagittal, and coronal planes. IV contrast was not administered fo r this examination. A dose lowering technique was utilized adhering to the principles of ALARA. CT DOSE: 721.68 mGy.cm FINDINGS: Lower chest: There is a trace pericardial effusion. There is no basilar consolidation. There is a sma ll hiatal hernia. Liver: No focal hepatic masses are visualized on this noncontrast study. There is no ductal dilatatio n. Gallbladder: Cholelithiasis. The gallbladder is mildly distended. Spleen: Normal in size and attenuation. Pancreas: There is stable small nodules at the level the posterior pancreatic tail measuring up to 12 mm in diameter. Adrenal glands: Unremarkable. Kidneys: No renal, ureteral, or bladder calculi are visualized. There is mild fullness of the left re nal collecting system and left ureter. Bowel: There are no transition zones to indicate bowel obstruction. There is no evidence of acute birgit endicitis. There is extensive colonic diverticulosis. There is sigmoid and rectal wall thickening wit h infiltration of perirectal fat. The findings are consistent with a colitis. Peritoneum: There is no intraperitoneal free air or abdominal ascites. Vasculature: The abdominal aorta is normal in course and caliber. Adenopathy: Optiray and common femoral chain lymph nodes remaining at the upper limits of normal in s ize Pelvic viscera: The prostate is enlarged, measuring 62 mm transversely. There are penile calcificatio ns likely vascular. Skeletal structures: There is bony ankylosis of the dorsal spine. No destructive lesions are visualiz ed. IMPRESSION: 1. No evidence of bowel obstruction. No evidence of free air 2. Cholelithiasis and mildly distended gallbladder 3. Colonic diverticulosis 4. Sigmoid and rectal wall thickening suggestive of a colitis 5. Prostatomegaly 6. Normal appendix 7. Mild fullness left renal collecting system and ureter. No renal, ureteral, or bladder calculi iden tified. ACT 112: Negative or not required by law. Electronically signed by: Martin Shipman M.D. 02/23/2020 11:39 AM
--- NOTE | 2020-02-23 12:12 | Electrocardiogram Report ---
Test Reason : Blood Pressure : / mmHG Vent. Rate : 101 BPM Atrial Rate : 125 BPM P-R Int : 000 ms QRS Dur : 080 ms QT Int : 324 ms P-R-T Axes : 000 -22 019 degrees QTc Int : 420 ms Atrial fibrillation with rapid ventricular response Abnormal ECG When compared with ECG of 16-DEC-2019 11:31, Vent. rate has increased BY 34 BPM Confirmed by Josue Pa ([id number]) on 02/23/2020 12:12:04 PM Referred By: Confirmed By:Josue Pa
[2020-02-23 12:28] LABS: Appearance Urine Clear (Clear); Bacteria Urine Automated Negative (Negative); Bilirubin Urine Negative (Negative); Blood Urine Negative (Negative); Color Urine Yellow; Glucose Urine UA Negative (Negative); Ketones Urine Trace (Negative); Leukocyte Esterase Urine 2+ (Negative); Nitrite Urine Negative (Negative); Protein Urine 1+ (Negative); RBC Urine Automated 0-4 /hpf (0-4); Specific Gravity Urine 1.018 (1.000-1.030); Urobilinogen Urine Negative (Negative); WBC Urine Automated >30 /hpf (0-5)
--- NOTE | 2020-02-23 14:01 | Emergency Department Note ---
Impression & Plan Substernal chest pain, Atrial fibrillation with rapid ventricular response, Leukocytosis, Abnormal gallbladder ultrasound, Colitis ED Provider Note INFORMANT: [Patient] ED PROVIDER(S): Tim Ratliff MD CHIEF COMPLAINT: Diarrhea PLAN: Disposition: Admitted Condition: [Good] MEDICAL DECISION MAKING: Patient presented to emergency department with multiple complaints. He noted diarrhea but also developed right upper abdominal pain, epigastric abdominal pain, and chest pain. His ECG showed an A. fib with RVR but no acute ischemia. Blood work revealed a mild leukocytosis on CBC. Chemistry panel was unremarkable including LFTs and lipase. Troponin negative. He does have some baseline renal insufficiency. Urinalysis unremarkable. The patient underwent CT imaging of the abdomen and pelvis. This revealed a mildly distended gallbladder but no acute process. He was hydrated. He was given morphine and Zofran for symptom control. He underwent gallbladder imaging which did reveal a stone in the gallbladder. No convincing evidence of cholecystitis, although the distention is concerning with the right upper quadrant pain. Given his complaints the patient will need further management in the hospital. He may be developing cholecystitis given the pain, stone and elevated white count. Cardiac etiologies are also a possibility. The patient has a mild sigmoid colitis but no other issues noted to explain the diarrhea. He was given a dose of Mefoxin to cover the gallbladder. Consultation was made with the [facility] hospitalist service. Triage Nursing notes reviewed and agree them. [Additional history obtained from] the patient's . Vital Signs: reviewed and remarkable for borderline tachycardia Differential diagnosis: Gastroenteritis, cardiac ischemia, aortic dissection, pulmonary embolism, pneumothorax, pneumonia, pericarditis, myocarditis, esophageal rupture, GERD, cholecystitis, pancreatitis, musculoskeletal, infectious diarrhea, as well as other pathologies. Diagnostics interpreted by me: ECG: Twelve-lead ECG reveals A. fib at [address] elevation or depression. No PACs or PVCs. Normal axis. Normal QRS. Cardiac Monitoring:Cardiac monitoring ordered by me: The patient was placed on continuous cardiac monitoring and observed. It revealed a atrial fibrillation at 119 beats per minute without ectopy or evidence of dysrhythmia. Imaging studies: CT scan revealed mild gallbladder distention. No evidence of obstruction. Mild sigmoid colitis. Consultation(s): [facility] Hospitalist service, Dr. Del Rosario HPI: The patient is a 84-year old male who presents to the Emergency Room with complaints of diarrhea. This started 3 days ago and is nonbloody. The patient also notes the following associated symptoms, substernal chest pain as well as upper abdominal pain that began last night. Patient feels generally weak. The patient has found no relieving factors. Current pain is rated as 6/10 in the upper abdomen and chest. He denies any recent sick contacts. Pt denies LOC, headache, fevers, chills, diaphoresis, visual changes, neck pain, breathing difficulties, nausea, vomiting, back pain, melena, hematochezia, urinary symptoms, numbness, lymphadenopathy, rash, or other complaints. ROS: See above HPI for pertinent positives & negatives. A total of [10] systems reviewed and were otherwise negative. PAST MEDICAL HISTORY:[See Below] , diabetes, A. fib PAST SURGICAL HISTORY:[See Below], gastric bypass FAMILY HISTORY:[See Below] SOCIAL HISTORY:[See Below], HOME MEDICATIONS:[See Below] ALLERGIES:[See Below] VITALS:[See Below] PHYSICAL EXAMINATION: GENERAL: Awake, alert, uncomfortable-appearing, in no distress HENT: Normocephalic, atraumatic. Oropharynx unremarkable. EYES: Normal conjunctiva. Sclera non-icteric. NECK: Inspection normal. Non-tender. Supple. No nuchal rigidity. FROM. No masses. RESPIRATORY: Clear to auscultation. No wheezes. No rales. Normal respiratory ef fort. CARDIAC: Tachycardic rate. Irregular rhythm. No murmurs. No rubs. Extremities warm and well perfused. Pulses equal. No JVD. GI: Soft, non-distended. Right upper quadrant and epigastric tenderness to palpation. No rebound or guarding. No masses. RECTAL: Deferred. MUSCULOSKELETAL: Atraumatic. Chest examination reveals no tenderness. The back is symmetrical on inspection without obvious abnormality. There is no CVA tenderness to palpation. No joint edema. LOWER EXTREMITIES: Calves are equal size bilaterally and non-tender. No edema. No discoloration. NEURO: Normal sensorium. No sensory or motor deficits noted. SKIN: No rash or jaundice noted. Tim Ratliff MD Past Med/Surg History Medical History (Updated 02/23/20 @ 15:06 by Tim Ratliff MD) Atrial fibrillation Chronic kidney disease variable creatinines with baseline ~1.6-2.1 Degenerative disc disease Diabetes mellitus, type 2 diet controlled History of bleeding ulcers History of BPH Hx of migraines Hx of sleep apnea no device Osteoarthritis Surgical History H/O gastric bypass 2004 H/O knee surgery "MULTIPLE KNEE SURGERIES"- R/L H/O shoulder replacement History of colonoscopy History of esophagogastroduodenoscopy (EGD) History of tooth extraction History of total knee replacement RT/LEFT History of total shoulder replacement LEFT Hx of transurethral resection of prostate Family History Sister Family history of diabetes mellitus Social History Smoking Status: Former smoker Second Hand Exposure: No; Hx Alcohol Use: No Hx Substance Use: No Preferred Language: Setswana Communication Ability: Effective Electric Plater Required: No Beliefs That Will Affect Care: None Current Living Situation: Significant Other Current Living Situation Comment: lives with ex- Feels Safe at Home: Yes Allergies Allergies Allergy/AdvReac Type Severity Reaction Status Date / Time No Known Allergies Allergy Verified 02/23/20 12:07 Home Meds Home Medications Medication Instructions Recorded Confirmed metoprolol tartrate 100 mg PO BID 03/02/18 02/23/20 omeprazole 40 mg PO BID 03/02/18 02/23/20 tramadol 50 mg PO BID PRN 07/02/18 02/23/20 Men's Multivitamin 1 tab PO QAM 09/28/19 02/23/20 sodium bicarbonate 650 mg PO BID 09/28/19 02/23/20 Eliquis 2.5 mg PO BID 12/06/19 02/23/20 calcium carbonate 500 mg (1,250 1 tab PO BID tab 12/18/19 02/23/20 mg)-vitamin D3 200 unit tablet vitamin B complex 1 tab PO BID tab 12/18/19 02/23/20 calcitriol 0.5 mcg PO MOWEFR 02/23/20 02/23/20 donepezil 5 mg PO HS 02/23/20 02/23/20 hydrocortisone 1 applic TOPICAL BID 02/23/20 02/23/20 solifenacin [Vesicare] 10 mg PO HS 02/23/20 02/23/20 tamsulosin 0.4 mg PO HS 02/23/20 02/23/20 zinc oxide-cod liver oil [Desitin] 1 applic TOPICAL BID 02/23/20 02/23/20 Previous Rx's Medication Instructions Recorded betamethasone dipropionate 0.05 % 1 applic TOPICAL BID #45 g 02/22/20 topical ointment Results & Data (ED) Vital Signs Vital Signs - 24 hr 02/23/20 10:21 02/23/20 10:27 02/23/20 10:39 Temperature 36.9 C Temperature Source Oral Pulse Rate 112 H 109 H Pulse Rate from SpO2 Sensor Pulse Rhythm Regular Pulse Strength Normal Respiratory Rate 18 28 H Respiratory Effort / Characteristics Non-Labored Spontaneous Respiratory Depth Normal Respiratory Pattern Regular Blood Pressure 113/56 L 136/61 Blood Pressure Mean 75 83 Blood Pressure Position Sitting Pulse Oximetry 97 95 Oxygen Delivery Method Room Air Room Air Sepsis Recent Fever Within 48 Hours No Sepsis New/Unexplained Change in Mental Status N/A Sepsis Action Taken by Nursing No Action Required 02/23/20 10:54 02/23/20 11:00 02/23/20 11:15 Temperature Temperature Source Pulse Rate 111 H 112 H 100 H Pulse Rate from SpO2 Sensor 96 H 109 H 94 H Pulse Rhythm Pulse Strength Respiratory Rate 23 24 24 Respiratory Effort / Characteristics Respiratory Depth Respiratory Pattern Blood Pressure 124/69 125/90 128/69 Blood Pressure Mean 97 110 97 Blood Pressure Position Pulse Oximetry 95 94 94 Oxygen Delivery Method Sepsis Recent Fever Within 48 Hours Sepsis New/Unexplained Change in Mental Status Sepsis Action Taken by Nursing 02/23/20 11:45 02/23/20 12:00 02/23/20 12:15 Temperature Temperature Source Pulse Rate 97 H 112 H 103 H Pulse Rate from SpO2 Sensor 110 H 117 H 99 H Pulse Rhythm Pulse Strength Respiratory Rate 23 23 22 Respiratory Effort / Characteristics Respiratory Depth Respiratory Pattern Blood Pressure 121/75 135/73 143/71 H Blood Pressure Mean 100 84 125 Blood Pressure Position Pulse Oximetry 94 98 96 Oxygen Delivery Method Sepsis Recent Fever Within 48 Hours Sepsis New/Unexplained Change in Mental Status Sepsis Action Taken by Nursing 02/23/20 12:30 02/23/20 12:45 02/23/20 13:00 Temperature Temperature Source Pulse Rate 104 H 95 H 103 H Pulse Rate from SpO2 Sensor 109 H 96 H 104 H Pulse Rhythm Pulse Strength Respiratory Rate 25 H 23 22 Respiratory Effort / Characteristics Respiratory Depth Respiratory Pattern Blood Pressure 130/77 134/79 136/73 Blood Pressure Mean 82 99 99 Blood Pressure Position Pulse Oximetry 98 97 97 Oxygen Delivery Method Sepsis Recent Fever Within 48 Hours Sepsis New/Unexplained Change in Mental Status Sepsis Action Taken by Nursing 02/23/20 13:15 02/23/20 13:30 Temperature Temperature Source Pulse Rate 111 H 105 H Pulse Rate from SpO2 Sensor 112 H Pulse Rhythm Pulse Strength Respiratory Rate 20 27 H Respiratory Effort / Characteristics Respiratory Depth Respiratory Pattern Blood Pressure 131/79 123/71 Blood Pressure Mean 87 80 Blood Pressure Position Pulse Oximetry 100 Oxygen Delivery Method Sepsis Recent Fever Within 48 Hours Sepsis New/Unexplained Change in Mental Status Sepsis Action Taken by Nursing Laboratory Data Result diagrams: 02/23/20 10:50 02/23/20 10:50 Lab Results 02/23/20 02/23/20 02/23/20 Range/Units 10:50 10:50 12:10 WBC 12.32 H (4.8-10.8) K/uL RBC 3.96 L (4.7-6.1) M/uL Hgb 11.2 L (14.0-18.0) g/dL Hct 36.0 L (42-52) % MCV 90.9 (80-100) fL MCH 28.3 (25-34) pg MCHC 31.1 L (32-36) g/dL RDW Std Deviation 53.4 H (36.4-46.3) fL RDW Coeff of Yinka 16.0 H (11.5-14.5) % Plt Count 203 (130-400) K/uL MPV 10.5 H (7.4-10.4) fL Immature Gran % (Auto) 0.2 % Neut % (Auto) 83.6 % Lymph % (Auto) 6.2 % [place] % (Auto) 9.7 % Eos % (Auto) 0.1 % Baso % (Auto) 0.2 % Neut # (Auto) 10.31 H (1.4-6.5) K/uL Lymph # (Auto) 0.76 L (1.2-3.4) K/uL [place] # (Auto) 1.19 H (0.11-0.59) K/uL Eos # (Auto) 0.01 (0-0.5) K/uL Baso # (Auto) 0.02 (0-0.2) K/uL Immature Gran # (Auto) 0.03 H (0.00-0.02) K/uL Sodium 140 (136-145) mmol/L Potassium 4.5 (3.5-5.1) mmol/L Chloride 111 H (98-107) mmol/L Carbon Dioxide 22 (21-32) mmol/L Anion Gap 7.0 (3-11) BUN 22 H (7-18) mg/dl Creatinine 1.80 H (0.6-1.4) mg/dl Est Cr Clr Drug Dosing Not Reportable Est GFR ( Amer) 39.5 Est GFR (Non-Af Amer) 34.0 BUN/Creatinine Ratio 12.3 (10-20) Glucose 148 H (70-99) mg/dl Calcium 8.8 (8.5-10.1) mg/dl Total Bilirubin 0.8 (0.2-1) mg/dl AST 11 L (15-37) U/L ALT 13 (12-78) U/L Alkaline Phosphatase 80 (45-117) U/L Troponin I < 0.015 (0-0.045) ng/ml Total Protein 7.1 (6.4-8.2) gm/dl Albumin 2.9 L (3.4-5.0) gm/dl Globulin 4.2 H (2.5-4.0) gm/dl Albumin/Globulin Ratio 0.7 L (0.9-2) Lipase 52 L (73-393) U/L Urine Color Yellow Urine Appearance Clear (Clear) Urine pH 5.0 (4.5-7.5) Ur Specific [place] 1.018 (1.000-1.030) Urine Protein 1+ H (Negative) Urine Glucose (UA) Negative (Negative) Urine Ketones Trace H (Negative) Urine Blood Negative (Negative) Urine Nitrite Negative (Negative) Urine Bilirubin Negative (Negative) Urine Urobilinogen Negative (Negative) Ur Leukocyte Esterase 2+ H (Negative) Urine WBC (Auto) >30 H (0-5) /hpf Urine RBC (Auto) 0-4 (0-4) /hpf U Hyaline Cast (Auto) 1-5 (0-5) /lpf U Epithel Cells (Auto) 5-10 H (0-5) /lpf Urine Bacteria (Auto) Negative (Negative) Administered Medications Sodium Chloride (Nss 1000ml) 1,000 mls @ 125 mls/hr IV .Q8H STA Stop: 02/23/20 18:46 Last Infusion: 02/23/20 12:28 Dose: 125 mls/hr Documented by: [id number] Infusion: 02/23/20 11:58 Dose: 0 mls/hr Documented by: [id number] Admin: 02/23/20 11:57 Dose: 125 mls/hr Documented by: [id number] Cefoxitin Sodium (Mefoxin) 2,000 mg in 60 mls @ 100 mls/hr IV NOW STA Stop: 02/23/20 14:59 Last Admin: 02/23/20 14:54 Dose: 100 mls/hr Documented by: [id number] Discontinued Medications Sodium Chloride (Nss 1000ml) 500 mls @ 999 mls/hr IV .Q31M ONE Stop: 02/23/20 11:17 Last Infusion: 02/23/20 12:28 Dose: 0 mls/hr Documented by: [id number] Admin: 02/23/20 11:57 Dose: 999 mls/hr Documented by: [id number] Morphine Sulfate (Morphine Sulfate 4 Mg/Ml 1 Ml Carp\\Vial) 4 mg IV NOW STA Stop: 02/23/20 14:31 Last Admin: 02/23/20 14:54 Dose: 4 mg Documented by: [id number] Ondansetron HCl (Ondansetron Inj 2 Mg/Ml 2 Ml Vial) 4 mg IV NOW STA Stop: 02/23/20 14:31 Last Admin: 02/23/20 14:53 Dose: 4 mg Documented by: [id number] Discharge Plan Visit Data Chief Complaint: Diarrhea Stated Complaint: WEAKNESS,DIARRHEA ED Provider: Tim Ratliff Discharge Problem: Substernal chest pain, Atrial fibrillation with rapid ventricular response, Leukocytosis, Abnormal gallbladder ultrasound, Colitis Forms Stand Alone Forms: My [facility] Prescriptions Prescriptions: No Action betamethasone dipropionate 0.05 % ointment 1 applic topical BID Qty: 45 RF: 0 tramadol 50 mg tablet 50 mg PO BID PRN (Reason: Pain) RF: 0 Men's Multivitamin 400-20-300 mcg Tablet 1 tab PO QAM RF: 0 sodium bicarbonate 650 mg tablet 650 mg PO BID RF: 0 Eliquis 2.5 mg Tablet 2.5 mg PO BID RF: 0 calcium carbonate-vitamin D3 [Calcium 500 + D] 500 mg(1,250mg) -200 unit tablet 1 tab PO BID RF: 0 vitamin B complex Tablet 1 tab PO BID RF: 0 Desitin Ointment 1 applic TOPICAL BID RF: 0 donepezil 5 mg tablet 5 mg PO HS RF: 0 tamsulosin 0.4 mg capsule 0.4 mg PO HS RF: 0 calcitriol 0.5 mcg capsule 0.5 mcg PO MOWEFR RF: 0 hydrocortisone 2.5 % cream 1 applic topical BID RF: 0 solifenacin [Vesicare] 10 mg tablet 10 mg PO HS RF: 0 metoprolol tartrate 100 mg Tablet 100 mg PO BID RF: 0 omeprazole 40 mg Capsule,Delayed Release(Dr/Ec) 40 mg PO BID RF: 0
--- NOTE | 2020-02-23 14:17 | Ultrasound Report ---
ABDOMINAL ULTRASOUND, RIGHT UPPER QUADRANT HISTORY: Abnormal gallbladder on CT. Right upper quadrant pain.. COMPARISON: Abdomen and pelvis CT 02/23/2020. FINDINGS: Pancreas: The pancreatic head and tail are obscured by overlying bowel gas. The remaining portions of the pancreas are within normal limits. Liver: Unremarkable. Gallbladder: No gallbladder wall thickening. Negative sonographic Hanks sign. The gallbladder is mil dly distended. There is an 8 mm stone in the gallbladder. CBD: 3 mm. Right kidney: No hydronephrosis. IMPRESSION: 1. Mildly distended gallbladder containing a gallstone. No gallbladder wall thickening. 2. The pancreas was not well visualized. ACT 112: Negative or not required by law. Electronically signed by: Oscar Phillips M.D. 02/23/2020 2:15 PM
[2020-02-23] MEDS ORDERED: cefOXitin 2,000 MG/60 ML BAG IV STA (14:24)
[2020-02-23] MEDS ORDERED: MoRPHine SULFATE 4 MG/ML 1 ML CARP\\VIAL IV STA (14:30)
[2020-02-23] MEDS ORDERED: ONDANSETRON INJ 2 MG/ML 2 ML VIAL IV STA (14:30)
--- NOTE | 2020-02-23 16:06 | History & Physical Report ---
Date of Service February 23, 2020 Assessment & Plan (1) Diarrhea: Ongoing for 2 days. Watery, non-bloody BMs many times per day. Did have Cipro within the last month or so for his phimosis. - Empirically starting vanc 125 mg PO Q6h - C. diff & stool testing ordered - IV fluids given volume losses from diarrhea - Will give Covid testing for loss of appetite and diarrhea (2) Atrial fibrillation with rapid ventricular response: Hx of paroxysmal afib. Reports he took "a couple of pills" this morning, but unsure if beta-mariana was one of them. - Continue Eliquis renally-dosed - Give STAT dose of metoprolol tartrate, then return to home beta-mariana - Metoprolol for HR >120 (3) Colitis: CT a/p on 02/22 showed sigmoid and rectal wall thickening suggestive of a colitis. - As above (4) Type 2 diabetes mellitus: A1c was 6.6% in 01/2020. Not on any home medications; likely due to low A1c and age. - DM diet - Sliding scale insulin (5) Benign prostatic hyperplasia with urinary obstruction: Follows with Dr. Villegas. - Continue tamsulosin - Hold solifenacin while inpatient because it is non-formulary (6) Dementia: Has been following with Dr. Fuller. - Continue donepezil (7) Phimosis: Had circumcision with Dr. Hoffmann on 01/02/2020. Has had some trouble with wound healing since then. Saw dermatology. - Continue hydrocortisone to penis head BID (8) Chronic kidney disease: Baseline Cr 1.7 - 2.0; eGFR ~35. Stage III CKD. - Presently at baseline. - Monitor Cr (9) DVT prophylaxis: Eliquis for afib History of Present Illness Primary Care Provider: Spencer Baltazar MD 84yo M w/ hx of gastric bypass who presents for diarrhea. The patient reports he had a gastric bypass awhile ago. He had a hemorrhoidectomy about 5 years ago, and two years ago, he began to experience looser stools and some level of urge incontinence. He reports especially when he eats, he will shortly after have the urge to defecate and rarely can wait long enough to get to the bathroom without some level of having an accident. However, about 2 days ago, he began to have even looser and more frequent stools. He reports his stools are now basically watery, brown and seem to come "every 5 minutes." He has also experienced a loss of appetite, and reports only have had something to eat about a day ago. He also reports some abdominal pain. The pain is generalized all over his abdomen and does not radiate. He has some nausea as well, but no emesis. Allergies Allergy/AdvReac Type Severity Reaction Status Date / Time No Known Allergies Allergy Verified 02/23/20 12:07 Home Medications Home Medications Medication Instructions Recorded Confirmed Type metoprolol tartrate 100 mg PO BID 03/02/18 02/23/20 History omeprazole 40 mg PO BID 03/02/18 02/23/20 History tramadol 50 mg PO BID PRN 07/02/18 02/23/20 History Men's Multivitamin 1 tab PO QAM 09/28/19 02/23/20 History sodium bicarbonate 650 mg PO BID 09/28/19 02/23/20 History Eliquis 2.5 mg PO BID 12/06/19 02/23/20 History calcium carbonate 500 mg (1,250 1 tab PO BID tab 12/18/19 02/23/20 History mg)-vitamin D3 200 unit tablet vitamin B complex 1 tab PO BID tab 12/18/19 02/23/20 History betamethasone dipropionate 0.05 % 1 applic TOPICAL BID #45 g 02/22/20 02/23/20 Rx topical ointment calcitriol 0.5 mcg PO MOWEFR 02/23/20 02/23/20 History donepezil 5 mg PO HS 02/23/20 02/23/20 History hydrocortisone 1 applic TOPICAL BID 02/23/20 02/23/20 History solifenacin [Vesicare] 10 mg PO HS 02/23/20 02/23/20 History tamsulosin 0.4 mg PO HS 02/23/20 02/23/20 History zinc oxide-cod liver oil [Desitin] 1 applic TOPICAL BID 02/23/20 02/23/20 History Past Med/Surg History Medical History Atrial fibrillation Chronic kidney disease variable creatinines with baseline ~1.6-2.1 Degenerative disc disease Diabetes mellitus, type 2 diet controlled History of bleeding ulcers History of BPH Hx of migraines Hx of sleep apnea no device Osteoarthritis Surgical History H/O gastric bypass 2004 H/O knee surgery "MULTIPLE KNEE SURGERIES"- R/L H/O shoulder replacement History of colonoscopy History of esophagogastroduodenoscopy (EGD) History of tooth extraction History of total knee replacement RT/LEFT History of total shoulder replacement LEFT Hx of transurethral resection of prostate Family History Sister Family history of diabetes mellitus Social History Smoking Status: Former smoker Second Hand Exposure: No; Hx Alcohol Use: No Hx Substance Use: No Preferred Language: Taiwanese Communication Ability: Effective Neon Installer Required: No Beliefs That Will Affect Care: None Current Living Situation: Significant Other Current Living Situation Comment: lives with ex- Feels Safe at Home: Yes Review of Systems Review of Systems: All systems reviewed & are unremarkable except as noted in HPI & below Physical Exam Constitutional: WD/WN, vitals as above Eyes: EOM intact bilaterally; no conjunctival abnormality ENMT: external ear and nose normal, oropharynx normal Neck: trachea midline, no thyromegaly normal visual inspection Respiratory: normal respiratory effort, lungs clear to auscultation no respiratory distress Cardiovascular: Rate/Rhythm: + tachycardic and + irregularly irregular Heart Sounds: normal S1 and normal S2 Extremities: no edema Gastrointestinal (Abdomen): Inspection/Auscultation: abdomen normal to inspection; abdomen not distended Musculoskeletal: no cyanosis or clubbing, extremities motor strength 5/5 Skin: no rashes, warm and dry Neurologic: moves all extremities and awake Psychiatric: Orientation: alert, oriented to person and cooperative Results & Data Results & Data ([facility]) Vital Signs (Past 12 Hours) Vital Signs Temp Pulse Resp BP Pulse Ox 02/23/20 13:30 105 H 27 H 123/71 02/23/20 13:15 111 H 20 131/79 100 02/23/20 13:00 103 H 22 136/73 97 02/23/20 12:45 95 H 23 134/79 97 02/23/20 12:30 104 H 25 H 130/77 98 02/23/20 12:15 103 H 22 143/71 H 96 02/23/20 12:00 112 H 23 135/73 98 02/23/20 11:45 97 H 23 121/75 94 02/23/20 11:15 100 H 24 128/69 94 02/23/20 11:00 112 H 24 125/90 94 02/23/20 10:54 111 H 23 124/69 95 02/23/20 10:39 109 H 28 H 136/61 02/23/20 10:27 95 02/23/20 10:21 36.9 C 112 H 18 113/56 L 97 PG Care Time/CCT Total # of Minutes Spent Total Time Spent with Patient: Total time spent is greater than 50% in coordination of care (as documented) at patient's floor/unit and/or counseling patient: Coding Level of Care Code 95433 Initial Inpt Care Lvl 3 Diagnoses Diarrhea R19.7 Atrial fibrillation with rapid ventricular response I48.91 Colitis K52.9 Type 2 diabetes mellitus E11.9 Benign prostatic hyperplasia with urinary obstruction N40.1; N13.8 Dementia F03.90 Phimosis N47.1 Chronic kidney disease N18.9 Chronic kidney disease stage: unspecified stage DVT prophylaxis Z29.9 (1) Chronic kidney disease Chronic kidney disease stage: unspecified stage Qualified Code(s): N18.9 - Chronic kidney disease, unspecified
[2020-02-23] MEDS ORDERED: GLUCOSE 10 TABS/TUBE PO PRN (16:56)
[2020-02-23] MEDS ORDERED: ONDANSETRON INJ 2 MG/ML 2 ML VIAL IV PRN (16:56)
[2020-02-23] MEDS ORDERED: GLUCAGON FOR INJ 1 MG VIAL SQ PRN (16:56)
[2020-02-23] MEDS ORDERED: CARBOHYDRATES FOR HYPOGLYCEMIA PO PRN (16:56)
[2020-02-23] MEDS ORDERED: METOPROLOL TARTRATE 1 MG/ML VIAL IV PRN (16:56)
[2020-02-23] MEDS ORDERED: DEXTROSE 50% 50 ML SYRINGE IV PRN (16:56)
[2020-02-23] MEDS ORDERED: GLUCOSE 40% GEL 15 GM TUBE PO PRN (16:56)
[2020-02-23] MEDS: SODIUM CHLORIDE 0.9% 1000ML 1,000 ML IV SCH (17:18)
[2020-02-23] MEDS ORDERED: METOPROLOL TARTRATE 25 MG TAB PO ONE (17:30)
[2020-02-23] MEDS: VANCOMYCIN HCL 125 MG/2.5ML SOLN PO SCH ×2 (18:23→23:58)
[2020-02-23] MEDS: RASPBERRY SYRUP 5 ML UDP PO SCH ×2 (18:23→23:58)
[2020-02-23] MEDS: INSULIN ASPART 100 UNITS/ML 3 ML PEN SC SCH ×2 (18:35→21:31)
[2020-02-23] MEDS: CALCIUM 600MG + VIT D 400 IU TAB PO SCH (21:29)
[2020-02-23] MEDS: APIXABAN 2.5 MG TAB PO SCH (21:29)
[2020-02-23] MEDS: DONEPEZIL HCL 5 MG TAB PO SCH (21:30)
[2020-02-23] MEDS: METOPROLOL TARTRATE 100 MG TAB PO SCH (21:30)
[2020-02-23] MEDS: HYDROCORTISONE 2.5% CR 30 GM TUBE EXT SCH (21:30)
[2020-02-23] MEDS: TAMSULOSIN HCL 0.4 MG CAP PO SCH (21:31)
[2020-02-23] MEDS: ACETAMINOPHEN 325 MG TAB PO PRN (23:57)
[2020-02-24] MEDS: SODIUM CHLORIDE 0.9% 1000ML 1,000 ML IV SCH ×2 (05:37→17:45)
[2020-02-24] MEDS: RASPBERRY SYRUP 5 ML UDP PO SCH ×3 (05:38→17:46)
[2020-02-24] MEDS: VANCOMYCIN HCL 125 MG/2.5ML SOLN PO SCH ×3 (05:38→17:46)
[2020-02-24 06:39] LABS: Hematocrit (blood only) 32.9 % (42-52); Hemoglobin 10.3 g/dL (14.0-18.0); Mean Corpuscular Hemoglobin 28.5 pg (25-34); Mean Corpuscular Hgb Conc 31.3 g/dL (32-36); Mean Corpuscular Volume 90.9 fL (80-100); Mean Platelet Volume 10.5 fL (7.4-10.4); Platelet Count 181 K/uL (130-400); RDW Coefficient of Variation 15.9 % (11.5-14.5); RDW Standard Deviation 52.8 fL (36.4-46.3); Red Blood Count 3.62 M/uL (4.7-6.1); White Blood Count 14.24 K/uL (4.8-10.8)
[2020-02-24 07:14] LABS: BUN Creatinine Ratio 11.7 (10-20); Calcium 8.5 mg/dl (8.5-10.1); Creatinine Clr Calc Pharmacy 34.9 ml/min; Est GFR (African American) 39.2; Est GFR (Non-African American) 33.8; Magnesium 1.7 mg/dl (1.8-2.4); Potassium 4.8 mmol/L (3.5-5.1)
[2020-02-24] MEDS: CALCIUM 600MG + VIT D 400 IU TAB PO SCH ×2 (07:44→21:07)
[2020-02-24] MEDS: METOPROLOL TARTRATE 100 MG TAB PO SCH ×2 (07:44→21:09)
[2020-02-24] MEDS: HYDROCORTISONE 2.5% CR 30 GM TUBE EXT SCH ×2 (07:45→21:08)
[2020-02-24] MEDS: APIXABAN 2.5 MG TAB PO SCH ×2 (07:45→21:07)
[2020-02-24] MEDS: PANTOprazole 40 MG TAB PO SCH (07:45)
--- NOTE | 2020-02-24 07:56 | CT Scan Report ---
CT SCAN OF THE BRAIN WITHOUT IV CONTRAST CLINICAL HISTORY: Right eye pain. Blurry vision. Dizziness. COMPARISON STUDY: CT of the brain dated 12/16/2019. TECHNIQUE: Unenhanced axial CT scan of the brain is performed from the vertex to the skull base. A do se lowering technique was utilized adhering to the principles of ALARA. CT DOSE: 614.27 mGy.cm FINDINGS: Brain parenchyma: There are age-related involutional changes noting mild to moderate subcortical and periventricular microangiopathic change. There is no hemorrhage, mass effect, or evidence of acute t erritorial ischemia by CT criteria. Zepeda-white matter differentiation is preserved. No extra-axial fl uid collection is seen. Ventricles, sulci, cisterns: Prominent secondary to involutional change. Intracranial vasculature: There is atherosclerotic calcification of the cavernous carotid and vertebr al arteries. Calvarium: Unremarkable. Sinuses and mastoids: The visualized paranasal sinuses are clear. The mastoid air cells are well pneu matized. Orbits: The bony orbits are grossly intact. IMPRESSION: There is no hemorrhage, mass effect, or evidence of acute territorial ischemia by CT fabian smith. ACT 112: Negative or not required by law. Electronically signed by: Guillermo Fitzgerald M.D. 02/24/2020 7:54 AM
[2020-02-24] MEDS: INSULIN ASPART 100 UNITS/ML 3 ML PEN SC SCH ×4 (08:14→21:10)
[2020-02-24] MEDS: ACETAMINOPHEN 325 MG TAB PO PRN (09:05)
[2020-02-24] MEDS: TRAMADOL HCL 50 MG TABLET PO PRN (12:47)
[2020-02-24] MEDS ORDERED: cefTRIAXone SODIUM 2,000 MG in DEXTROSE 5% 50 ML IV ONE (13:00)
[2020-02-24] MEDS: LACTOBACILLUS ACIDOPHILUS (FLORANEX) TAB PO SCH (18:18)
--- NOTE | 2020-02-24 19:27 | Hospitalist Progress Note ---
Date of Service February 24, 2020 Assessment & Plan (1) Diarrhea: resolved Cdiff negative likely viral (2) UTI (urinary tract infection): cystitis probably from pelvic bacterial load from profuse diarrhea based on prior cultures he's mostly shown sensitive bugs - will give rocephin pending ID&S (3) Weakness: acute on chronic deconditioning PT/OT eval and treat (4) Atrial fibrillation with rapid ventricular response: rate controlled overall anticoagulated (5) Colitis: noted on CT - probably from viral enteritis (6) Type 2 diabetes mellitus: A1c was 6.6% in 01/2020. Not on any home medications; likely due to low A1c and age. - DM diet - Sliding scale insulin - follow sugars -- overall reasonable control (7) Benign prostatic hyperplasia with urinary obstruction: Follows with Dr. Villegas. - Continue tamsulosin - Hold solifenacin while inpatient because it is non-formulary - for now no s/s prostatitis w infection, follow (8) Dementia: Has been following with Dr. Fuller. - Continue donepezil (9) Phimosis: Had circumcision with Dr. Hoffmann on 01/02/2020. Has had some trouble with wound healing since then. Saw dermatology. - Continue hydrocortisone to penis head BID - just looks nonspecifically red/inflammed today (10) Chronic kidney disease: Baseline Cr 1.7 - 2.0; eGFR ~35. Stage III CKD. - Presently at baseline. - Monitor Cr (11) DVT prophylaxis: Eliquis for afib (12) Discharge planning issues: stable for med surg PT/OT eval and treat w current weakness and especially since preceding weakness - anticipate need for SNF/rehab after discharge Admission and Anticipated Discharge Date Admission Date: February 23, 2020 Subjective diarrhea essentially resolved. had a loose stool this AM but no longer profuse and frequent diarrhea does burn when he pees starting this AM weak - can't really get up and around well - notes that he's actually had frequent falls at home even before getting sick this week Review of Systems Review of Systems: All systems reviewed & are unremarkable except as noted in HPI & below Physical Exam Physical Exam: gen aao pleasant nad heent nc at mmm breathing unlabored no accessory muscles good effort skin no rashes no pallor or icterus neuro no focal deficits Results & Data Results & Data ([facility]) Vital Signs (Past 12 Hours) Vital Signs Temp Pulse Resp BP Pulse Ox 02/24/20 15:09 98.4 F 102 H 18 148/82 H 94 PG Care Time/CCT Total # of Minutes Spent Total Time Spent with Patient: Total time spent is greater than 50% in coordination of care (as documented) at patient's floor/unit and/or counseling patient: Coding Level of Care Code 05148 Subseq Hosp Care Lvl 3 Diagnoses Diarrhea R19.7 UTI (urinary tract infection) N39.0 Weakness R53.1 Atrial fibrillation with rapid ventricular response I48.91 Colitis K52.9 Type 2 diabetes mellitus E11.9 Benign prostatic hyperplasia with urinary obstruction N40.1; N13.8 Dementia F03.90 Phimosis N47.1 Chronic kidney disease N18.9 Chronic kidney disease stage: unspecified stage DVT prophylaxis Z29.9 Discharge planning issues Z02.9 (1) Chronic kidney disease Chronic kidney disease stage: unspecified stage Qualified Code(s): N18.9 - Chronic kidney disease, unspecified
[2020-02-24] MEDS: DONEPEZIL HCL 5 MG TAB PO SCH (21:08)
[2020-02-24] MEDS: TAMSULOSIN HCL 0.4 MG CAP PO SCH (21:08)
[2020-02-25] MEDS: VANCOMYCIN HCL 125 MG/2.5ML SOLN PO SCH ×2 (00:25→05:46)
[2020-02-25] MEDS: RASPBERRY SYRUP 5 ML UDP PO SCH ×3 (00:25→13:17)
[2020-02-25] MEDS: ACETAMINOPHEN 325 MG TAB PO PRN ×2 (00:28→23:20)
[2020-02-25] MEDS: MELATONIN 3 MG TAB PO PRN ×2 (00:35→23:20)
[2020-02-25] MEDS: SODIUM CHLORIDE 0.9% 1000ML 1,000 ML IV SCH (05:42)
--- NOTE | 2020-02-25 08:23 | Hospitalist Progress Note ---
Date of Service February 25, 2020 Assessment & Plan (1) UTI (urinary tract infection): Patient is an 84 year old male with PMHx Afib, PBH, Dementia, Phimosis s/p circumcision, CKD that presented with loose stools and urge incontinence with history of recent antibiotic use. Diarrhea (resolved) -Likely secondary to viral colitis -C diff negative -Was started on empiric Vanco, since DC'd UTI -Symptomatic with urine culture growing E. Coli -Continue Rocephin 2g IV QD Weakness -Noted history of multiple falls over the past few weeks -His also noted concerns about him returning home -PT/OT ordered -Due to patients history of falls, patient may benefit more from SNF placement after DC AFIB -Continue home eliquis -Continue home metoprolol BPH -Follows with Dr. Hoffmann -Continue Flomax -Holding Solifenacin while inpatient due to non-formulary Dementia -Follows with Dr. Fuller -Continue donepezil Phimosis -S/P circumcision with Dr. Hoffmann -Continue hydrocortisone cream to penis head BID CKD III -Base 1.7 - 2 -Continue to monitor FEN/GI: HH, DC IVF DVT: Eliquis Code: Full Dispo: Med/Surg Admission and Anticipated Discharge Date Admission Date: February 23, 2020 Supervising Physician Co-Signing Physician Notes I personally examined the patient and verified all [place] points of history and exam, discussed case, and agree with decision making with Dr Dillon. feeling better w diarrhea. burning when he pees is still present but less intense vitals ntoed nad heent nc at mmm breathing unlabored no accessory muscles good effort skin no rashes no pallor or icterus diarrhea - appears to have been viral. resolved. Cdiff was negative UTI - rocephin weakness - frequent falls - notes hitting head a lot too. also cognitively seems questionable dementia (hard to tell given not seeing him at baseline / he's in hospital/etc) - but right now doesn't seem entirely safe at home - PT/OT eval and treat otherwise as above Subjective Patient seen and evaluated at the bedside this AM. Noted that he was feeling better in regards to the diarrhea, that it was more soft stools now. He still noted some burning with urination, but that the intensity of the pay was si gnificantly less. He noted that before he would feel it from "my penis to the top of my head," but now it was retained primarily in his genitals. Denies any nausea, vomiting, SOB, chest pain, chest pressure, fever, chills. Review of Systems Review of Systems: All systems reviewed & are unremarkable except as noted in Subjective Physical Exam Constitutional: WD/WN, vitals as above well developed Respiratory: normal respiratory effort, lungs clear to auscultation Cardiovascular: Rate/Rhythm: + abnormal rate (Irr-Irr) and + abnormal rhythm Extremities: no edema Gastrointestinal (Abdomen): normal bowel sounds, soft, nontender, no hepatosplenomegaly Genitourinary: + penis abnormality (slight erythema around the hernandez of glans penis, no discharge) Results & Data Results & Data ([facility]) Vital Signs (Past 12 Hours) Vital Signs Temp Pulse Resp BP Pulse Ox 02/25/20 07:40 36.9 C 87 20 99/50 L 97 02/25/20 01:15 37.4 C 02/25/20 00:25 37.9 C H 02/24/20 23:35 38.4 C H 100 H 20 101/61 96 Resident Activity Tracking Resident Involvement: Resident Care Provided Care Provided: Adult Hospital Medicine
[2020-02-25] MEDS: PANTOprazole 40 MG TAB PO SCH (09:24)
[2020-02-25] MEDS: APIXABAN 2.5 MG TAB PO SCH ×2 (09:24→20:21)
[2020-02-25] MEDS: METOPROLOL TARTRATE 100 MG TAB PO SCH ×2 (09:24→20:19)
[2020-02-25] MEDS: CALCIUM 600MG + VIT D 400 IU TAB PO SCH ×2 (09:25→20:16)
[2020-02-25] MEDS: HYDROCORTISONE 2.5% CR 30 GM TUBE EXT SCH ×2 (09:25→20:20)
[2020-02-25] MEDS: LACTOBACILLUS ACIDOPHILUS (FLORANEX) TAB PO SCH ×3 (09:25→16:14)
[2020-02-25] MEDS: cefTRIAXone SODIUM 2,000 MG in DEXTROSE 5% 50 ML IV SCH (09:28)
[2020-02-25] MEDS: INSULIN ASPART 100 UNITS/ML 3 ML PEN SC SCH ×4 (09:32→20:27)
[2020-02-25] MEDS: MAGNESIUM SULFATE / D5W 1 GM/100 ML BAG IV SCH ×2 (10:34→12:37)
[2020-02-25] MEDS: TRAMADOL HCL 50 MG TABLET PO PRN ×2 (16:14→20:14)
--- NOTE | 2020-02-25 17:50 | Billing Data ---
Date of Service February 25, 2020 Coding Level of Care Code 31300 Subseq Hosp Care Lvl 2
[2020-02-25] MEDS: DONEPEZIL HCL 5 MG TAB PO SCH (20:15)
[2020-02-25] MEDS: TAMSULOSIN HCL 0.4 MG CAP PO SCH (20:16)
[2020-02-26 05:40] LABS: Basophils # (auto) 0.01 K/uL (0-0.2); Basophils % (auto) 0.1 %; Eosinophils % (auto) 2.9 %; Hemoglobin 9.3 g/dL (14.0-18.0); Immature Granulocytes # (auto) 0.02 K/uL (0.00-0.02); Immature Granulocytes % (auto) 0.3 %; Lymphocytes # (auto) 0.86 K/uL (1.2-3.4); Lymphocytes % (auto) 12.3 %; Mean Corpuscular Hemoglobin 28.8 pg (25-34); Mean Corpuscular Hgb Conc 32.1 g/dL (32-36); Mean Corpuscular Volume 89.8 fL (80-100); Mean Platelet Volume 10.8 fL (7.4-10.4); Monocytes # (auto) 0.72 K/uL (0.11-0.59); Monocytes % (auto) 10.3 %; Neutrophils # (auto) 5.16 K/uL (1.4-6.5); Neutrophils % (auto) 74.1 %; Platelet Count 181 K/uL (130-400); RDW Coefficient of Variation 15.8 % (11.5-14.5); RDW Standard Deviation 51.1 fL (36.4-46.3); Red Blood Count 3.23 M/uL (4.7-6.1); White Blood Count 6.97 K/uL (4.8-10.8)
[2020-02-26] MEDS: ACETAMINOPHEN 325 MG TAB PO PRN (06:01)
[2020-02-26 06:20] LABS: BUN Creatinine Ratio 11.1 (10-20); Calcium 8.7 mg/dl (8.5-10.1); Creatinine Clr Calc Pharmacy 37.3 ml/min; Est GFR (African American) 42.6; Est GFR (Non-African American) 36.7
[2020-02-26] MEDS ORDERED: CALCITRIOL 0.25 MCG CAPSULE PO SCH (09:00)
[2020-02-26] MEDS: INSULIN ASPART 100 UNITS/ML 3 ML PEN SC SCH ×3 (09:57→17:54)
[2020-02-26] MEDS: APIXABAN 2.5 MG TAB PO SCH (09:59)
[2020-02-26] MEDS: CALCIUM 600MG + VIT D 400 IU TAB PO SCH (10:00)
[2020-02-26] MEDS: PANTOprazole 40 MG TAB PO SCH (10:00)
[2020-02-26] MEDS: METOPROLOL TARTRATE 100 MG TAB PO SCH (10:00)
[2020-02-26] MEDS: LACTOBACILLUS ACIDOPHILUS (FLORANEX) TAB PO SCH ×3 (10:01→17:51)
[2020-02-26] MEDS: HYDROCORTISONE 2.5% CR 30 GM TUBE EXT SCH (10:02)
[2020-02-26] MEDS: cefTRIAXone SODIUM 2,000 MG in DEXTROSE 5% 50 ML IV SCH (10:07)
--- NOTE | 2020-02-26 20:53 | Discharge Summary ---
Date of Service February 26, 2020 Admission HPI Per Admitting Provider 84yo M w/ hx of gastric bypass who presents for diarrhea. The patient reports he had a gastric bypass awhile ago. He had a hemorrhoidectomy about 5 years ago, and two years ago, he began to experience looser stools and some level of urge incontinence. He reports especially when he eats, he will shortly after have the urge to defecate and rarely can wait long enough to get to the bathroom without some level of having an accident. However, about 2 days ago, he began to have even looser and more frequent stools. He reports his stools are now basically watery, brown and seem to come "every 5 minutes." He has also experienced a loss of appetite, and reports only have had something to eat about a day ago. He also reports some abdominal pain. The pain is generalized all over his abdomen and does not radiate. He has some nausea as well, but no emesis. Admission Exam Per Admitting Provider Constitutional: WD/WN, vitals as above Eyes: EOM intact bilaterally; no conjunctival abnormality ENMT: external ear and nose normal, oropharynx normal Neck: trachea midline, no thyromegaly normal visual inspection Respiratory: normal respiratory effort, lungs clear to auscultation no respiratory distress Cardiovascular: Rate/Rhythm: + tachycardic and + irregularly irregular Heart Sounds: normal S1 and normal S2 Extremities: no edema Gastrointestinal (Abdomen): Inspection/Auscultation: abdomen normal to inspection; abdomen not distended Musculoskeletal: no cyanosis or clubbing, extremities motor strength 5/5 Skin: no rashes, warm and dry Neurologic: moves all extremities and awake Psychiatric: Orientation: alert, oriented to person and cooperative Principal Diagnosis UTI viral colitis Discharge Exam Constitutional WD/WN, vitals as above Eyes PERRL, conjunctivae normal, anicteric sclerae ENMT external ear and nose normal, oropharynx normal Neck normal visual inspection Respiratory normal respiratory effort, lungs clear to auscultation Cardiovascular irregularly irregular Gastrointestinal (Abdomen) - hyperactive bowel sounds with slight tenderness to the LLQ Skin no rashes, warm and dry Discharge Data Allergies Allergy/AdvReac Type Severity Reaction Status Date / Time No Known Allergies Allergy Verified 02/23/20 12:07 Consultations 02/23/20 14:22 ED Decision to Admit Stat 02/25/20 13:21 Consult Case Management - Discharge Planning Routine Ordered Studies 02/23/20 10:51 CT abd pelvis wo con Stat 02/23/20 12:51 US gallbladder Stat 02/23/20 21:52 CT head/brain wo con Urgent Hospital Course (1) UTI (urinary tract infection): Patient is an 84 year old male with PMHx Afib, PBH, Dementia, Phimosis s/p circumcision, CKD that presented with loose stools and urge incontinence with history of recent antibiotic use. Sepsis POA in the setting of UTI and viral colitis. - see below. Diarrhea (resolved) -Likely secondary to viral colitis -C diff negative -continue supportive care UTI -Symptomatic with urine culture growing E. Coli -Rocephin 2g IV QD while inpatient -discharged on Keflex 500 mg Q6H 5day for total of 7 day course Weakness -Noted history of multiple falls over the past few weeks -His also noted concerns about him returning home -Home PT/OT and nursing set up [facility] AFIB -Continue home Eliquis -Continue home Metoprolol BPH -Follows with Dr. Hoffmann -Continue Flomax -Solifenacin held while inpatient since non-formulary Dementia -Follows with Dr. Fuller -Continue donepezil Phimosis -S/P circumcision with Dr. Hoffmann -Continue hydrocortisone cream to penis head BID CKD III -Baseline 1.7 - 2 -stable and 1.69 on discharge Total Time Total Time Spent Total Time Spent (In Minutes): see attending attestation Discharge Plan Discharge Items Patient Disposition: Home - Self-Care Reason For Visit: DIARRHEA, AFIB WITH RVR Discharge Diagnosis: diarrhea Activity: Per Instructions section Non-emergency contact: Primary Care Provider Call non-emergency contact if: your symptoms worsen Follow-up/Referrals: Spencer Baltazar MD [Primary Care Provider] - (Patient should call on 02/26 to schedule a follow up appointment.) Diet: Regular Addtl Attending Provider Instructions: Diarrhea You were experiencing diarrhea prior to coming to the hospital. You were tested for a type of infection that can occur after someone takes antibiotics, and you did not have this. We think that you have a viral infection that is causing the diarrhea. To treat this we recommend that you continue to drink lots of fluids with electrolytes such as Pedialyte. You can take over the counter probiotic to help improve your diarrhea. UTI You were found to have a urinary tract infection on exam. We gave you IV antib iotics while you were in the hospital and you will go home on oral antibiotics. Atrial fibrillation You were found to have a fast heart rate and irregular rhythm. This could be due to the infection. You can continue your home Metoprolol(beta mariana) for this. you should also continue your Eliquis to decrease the chance that you will develop a stroke. Follow up We will want you to follow up with your primary doctor in the next week to discuss your hospitalization. You will also need to see your assistant professor, if you can call tomorrow to schedule this appointment. Return precautions If you have worsening diarrhea, are feeling dizzy, are weak, or have worsening pain with urination call or come in to the hospital. Pending Studies at Discharge: No Stand-Alone Forms: My [facility] [employer], Smoking Cessation Medications and DC Order Prescriptions: New cephalexin 500 mg capsule 500 mg PO Q6H 5 Days Qty: 20 RF: 0 Continued betamethasone dipropionate 0.05 % ointment 1 applic topical BID Qty: 45 RF: 0 tramadol 50 mg tablet 50 mg PO BID PRN (Reason: Pain) RF: 0 Men's Multivitamin 400-20-300 mcg Tablet 1 tab PO QAM RF: 0 sodium bicarbonate 650 mg tablet 650 mg PO BID RF: 0 Eliquis 2.5 mg Tablet 2.5 mg PO BID RF: 0 calcium carbonate-vitamin D3 [Calcium 500 + D] 500 mg(1,250mg) -200 unit tablet 1 tab PO BID RF: 0 vitamin B complex Tablet 1 tab PO BID RF: 0 zinc oxide-cod liver oil Ointment 1 applic TOPICAL BID RF: 0 donepezil 5 mg tablet 5 mg PO HS RF: 0 tamsulosin 0.4 mg capsule 0.4 mg PO HS RF: 0 calcitriol 0.5 mcg capsule 0.5 mcg PO MOWEFR RF: 0 hydrocortisone 2.5 % cream 1 applic topical BID RF: 0 solifenacin [Vesicare] 10 mg tablet 10 mg PO HS RF: 0 metoprolol tartrate 100 mg Tablet 100 mg PO BID RF: 0 omeprazole 40 mg Capsule,Delayed Release(Dr/Ec) 40 mg PO BID RF: 0 Discharge Orders: Discharge Order (Routine); Ordered 02/26/20 Ordered By: James Toribio Admission Data Admit Date/Time: 02/23/20 16:00 Attending Provider: Liz Doe Admit Provider: Jai Payne Primary Care Provider: Spencer Baltazar Other Providers: Jai Payne ; Bladimir Del Rosario ; Flo Lambert ; [facility] Other Interventions: Discharge Summary Assessment (RN) Last Done: 02/26/20 17:33 Supervising Physician Co-Signing Physician Notes Resident Physician Supervision Note: I independently interviewed and examined the patient and verified the [place] history and physical, reviewed labs and image studies, discussed the case with the resident and agree with the findings and care plan. Resident Activity Tracking Resident Involvement: Resident Care Provided Care Provided: Adult [facility] CBC Results Results Complete Blood Count Results: RBC 3.23 M/uL (4.7-6.1) L 02/26/20 WBC 6.97 K/uL (4.8-10.8) 02/26/20 Hgb 9.3 g/dL (14.0-18.0) L 02/26/20 Hct 29.0 % (42-52) L 02/26/20 Plt Count 181 K/uL (130-400) 02/26/20 Chemistry (BMP) Results BMP Results: Sodium 139 mmol/L (136-145) 02/26/20 Potassium 4.0 mmol/L (3.5-5.1) 02/26/20 Chloride 109 mmol/L (98-107) H 02/26/20 BUN 19 mg/dl (7-18) H 02/26/20 Creatinine 1.69 mg/dl (0.6-1.4) H 02/26/20 Glucose 116 mg/dl (70-99) H 02/26/20
== END 2020-02-26 19:12 | disposition home or self-care (01) ==
LOC: ED 10:11 → INTOOBSV 16:00 → SUATTDRO 16:00 → 2E 16:00 → 3N 02-24 14:57
DX: Z79.01 Long term (current) use of anticoagulants; Z98.84 Bariatric surgery status; A41.51 Sepsis due to Escherichia coli [E. coli]; N39.0 Urinary tract infection, site not specified; Z96.612 Presence of left artificial shoulder joint; N18.3 Chronic kidney disease, stage 3 (moderate); Z79.899 Other long term (current) drug therapy; Z96.653 Presence of artificial knee joint, bilateral; E11.9 Type 2 diabetes mellitus without complications; I48.91 Unspecified atrial fibrillation; F03.90 Unspecified dementia, unspecified severity, without behavioral disturbance, psychotic disturbance, mood disturbance, and anxiety; Z87.891 Personal history of nicotine dependence; Z11.59 Encounter for screening for other viral diseases; N40.1 Benign prostatic hyperplasia with lower urinary tract symptoms; K52.9 Noninfective gastroenteritis and colitis, unspecified

== ENCOUNTER 2020-02-29 17:22 | Observation (INO) ==
[2020-02-29] MEDS ORDERED: SODIUM CHLORIDE 0.9% 1000ML 1,000 ML IV ONE (17:52)
[2020-02-29] MEDS ORDERED: MoRPHine SULFATE 4 MG/ML 1 ML CARP\\VIAL IV STA (17:56)
[2020-02-29 18:43] LABS: Basophils # (auto) 0.02 K/uL (0-0.2); Basophils % (auto) 0.3 %; Hemoglobin 10.8 g/dL (14.0-18.0); Immature Granulocytes # (auto) 0.06 K/uL (0.00-0.02); Immature Granulocytes % (auto) 0.8 %; Lymphocytes # (auto) 0.53 K/uL (1.2-3.4); Lymphocytes % (auto) 6.8 %; Mean Corpuscular Hemoglobin 27.9 pg (25-34); Mean Corpuscular Hgb Conc 31.8 g/dL (32-36); Mean Corpuscular Volume 87.9 fL (80-100); Mean Platelet Volume 11.3 fL (7.4-10.4); Monocytes # (auto) 0.53 K/uL (0.11-0.59); Monocytes % (auto) 6.8 %; Neutrophils % (auto) 85.3 %; Platelet Count 209 K/uL (130-400); RDW Coefficient of Variation 15.3 % (11.5-14.5); RDW Standard Deviation 49.4 fL (36.4-46.3); Red Blood Count 3.87 M/uL (4.7-6.1); White Blood Count 7.74 K/uL (4.8-10.8)
[2020-02-29 19:03] LABS: Albumin Level 2.5 gm/dl (3.4-5.0); BUN Creatinine Ratio 9.2 (10-20); Calcium 8.5 mg/dl (8.5-10.1); Creatinine Clr Calc Pharmacy 28.1 ml/min; Est GFR (African American) 30.3; Est GFR (Non-African American) 26.1; Potassium 3.8 mmol/L (3.5-5.1)
[2020-02-29 19:13] LABS: Albumin Globulin Ratio 0.5 (0.9-2); Bilirubin,Total 0.5 mg/dl (0.2-1); Globulin 4.8 gm/dl (2.5-4.0); Thyroid Stimulating Hormone 1.29 uIu/ml (0.300-4.500); Total Protein 7.3 gm/dl (6.4-8.2)
--- NOTE | 2020-02-29 19:49 | CT Scan Report ---
CT head/brain wo con CLINICAL HISTORY: 84 years-old Male with fall on thinners. Acute head injury status post fall TECHNIQUE: Multiple axial CT images of the head were obtained without contrast. A dose lowering tech nique was utilized adhering to the principles of ALARA. COMPARISON: Head CT 02/23/2020 FINDINGS: No acute intracranial hemorrhage, midline shift, intracranial mass, hydrocephalus, territorial ischem ia or abnormal extra-axial collection. Mild age-related involutional changes. Mild patchy white matte r hypodensities suggest chronic microvascular ischemic disease. Senescent calcifications of the lenti form nuclei. Cerebral vascular calcifications. The calvarium is intact. The paranasal sinuses, mastoid air cells, and middle ear cavities are clear . IMPRESSION: No acute intracranial abnormality or calvarial fracture. ACT 112: Negative or not required by law. The above report was generated using voice recognition software. It may contain grammatical, syntax o r spelling errors. Electronically signed by: Slim Armenta M.D. 02/29/2020 7:47 PM
--- NOTE | 2020-02-29 19:56 | CT Scan Report ---
ABDOMEN AND PELVIS CT WITHOUT CONTRAST CT DOSE: 2356.08 mGy.cm HISTORY: Acute generalized abdominal pain status post fall fall, ab pain, on thinners, [place] TECHNIQUE: Multiaxial CT images of the abdomen and pelvis were performed without contrast. A dose lo wering technique was utilized adhering to the principles of ALARA. COMPARISON STUDY: CT abdomen and pelvis 02/23/2020 FINDINGS: Clear lung bases. There is no pneumatosis or pneumoperitoneum. Coronary artery calcificatio ns with mild cardiomegaly and small pericardial effusion. Limited evaluation of the solid abdominal o rgans without the use of IV contrast. Within the limitations of the study, the spleen, adrenal glands and liver appear unremarkable. Mild gallbladder distention with layering cholelithiasis. No gallblad adela wall thickening or pericholecystic fluid. No biliary ductal dilation. Mild generalized pancreatic atrophy. Mild nonspecific bilateral perinephric stranding. 2 mm nonobstructing calculus of the inferior pole l eft kidney with probable punctate calculus of the superior pole. No ureteral calculi or obstructive u ropathy. Partial distention of the bladder with moderate wall thickening and perivesicular stranding. Moderate to marked prostamegaly. Calcifications of the penis. Extensive calcified plaque the abdomin al aorta without aneurysm. No adenopathy or retroperitoneal hematoma. Mild wall thickening of the distal esophagus. Postoperative changes of prior gastric bypass. No bowel obstruction. Wall thickening of the distal sigmoid and rectum has mildly improved from comparison. T here is persistent perirectal inflammation with trace free fluid. Colonic diverticulosis without acut e diverticulitis. Normal appendix. Mild retained enteric contrast involves a few loops of bowel. Unre markable soft tissues. Degenerative changes of the spine, pelvis and hips. Unchanged sclerosis involv ing the left SI joint. No acute fracture identified. Unchanged superior endplate Schmorl's node at L3 . IMPRESSION: 1. No acute posttraumatic intra-abdominal or intrapelvic abnormality identified. 2. No acute fracture. 3. Mild improvement of the distal sigmoid and rectal wall thickening suggestive of a nonspecific proc tocolitis. Correlation should be made with follow-up colonoscopy to exclude a mucosal lesion. 4. Mild gallbladder distention with cholelithiasis. 5. Nonobstructing left nephrolithiasis. 6. Additional findings as above. ACT 112: Negative or not required by law. The above report was generated using voice recognition software. It may contain grammatical, syntax o r spelling errors. Electronically signed by: Slim Armenta M.D. 02/29/2020 7:55 PM
--- NOTE | 2020-02-29 20:42 | XRay Report ---
XR ribs LT min 3V w CXR1V HISTORY: 84 years-old Male pain post fall acute left-sided rib pain status post fall COMPARISON: Chest radiograph 09/28/2019 TECHNIQUE: AP view of the chest with 4 views of the left ribs FINDINGS: Cardiac silhouette is mildly enlarged, unchanged. Calcified plaque of the thoracic aortic arch. Mild blunting of the right costophrenic angle may reflect trace effusion versus atelectasis. No pneumothor ax, overt pulmonary edema or airspace consolidation typical for pneumonia. Degenerative changes of th e right shoulder and spine. Reverse left shoulder total joint arthroplasty. Surgical suture material projects over the abdominal left upper quadrant. No acute rib fracture identified. There is a mild co rtical thickening suggestive of subtle healed remote fracture deformities. Subtle cortical irregulari ty involves the anterior left fifth and sixth ribs. IMPRESSION: 1. No acute processes of the chest. 2. No acute displaced rib fracture or pneumothorax. 3. Subtle cortical irregularity involves the anterior left fifth and sixth ribs. Correlate with point tenderness to exclude acute nondisplaced fractures. ACT 112: Negative or not required by law. The above report was generated using voice recognition software. It may contain grammatical, syntax o r spelling errors. Electronically signed by: Slim Armenta M.D. 02/29/2020 8:41 PM
--- NOTE | 2020-02-29 22:11 | History & Physical Report ---
Date of Service February 29, 2020 Assessment & Plan (1) Fall: 84yo C male presenting from home after a mechanical fall, trauma to left side. No head trauma, no LOC -Admit to medical floor -Fall precautions -Patient has home services set up from recent hospitalization -Incentive spirometry - encourage use q 2 hours while awake -Tylenol, Tramadol, Morphine as needed for pain -Colace as needed for constipation Present on Admission?: Yes (2) UTI (urinary tract infection): Patient with UA + [place] sensitive E. Coli. He is afebrile, HD stable, non- toxic in appearance -Continue PO Keflex -Probiotic -Follow cultures, blood and urine sent from ER Present on Admission?: Yes (3) Diarrhea: Patient with ongoing diarrhea, thought to be secondary to viral cause during last admission. C. diff negative. Patient reports his diarrhea has improved -Continue probiotics -IVF and electrolytes as needed -Supportive care Present on Admission?: Yes (4) Atrial fibrillation with rapid ventricular response: Elevated HR on arrival 114. No complaints. Per review of patient's last hospital stay his HR tends to be mildly elevated (ranging 84-127) -Continue Metoprolol, will give PM dose when patient arrives on floor -Continue Apixaban Present on Admission?: Yes (5) Benign prostatic hyperplasia with urinary obstruction: Chronic. Stable -Continue Flomax 0.4mg po daily Present on Admission?: Yes (6) Dementia: Patient pleasant, answers questions appropriately -Continue Aricept 5mg po qHS -Delirium prevention strategies with frequent orientation, maintenance of sleep/wake cycle as able, ambulation with assistance Present on Admission?: Yes (7) CKD (chronic kidney disease): Mild elevation in BUN and Cr from baseline. Electrolytes and metabolic panel are acceptable -Gentle IVF - NSS at 80mL/hr -Continue Rocaltrol -Continue NaHCO3 -Repeat chemistry in AM Present on Admission?: Yes (8) GERD (gastroesophageal reflux disease): Chronic -Continue Protonix 40mg po BID Present on Admission?: Yes (9) Type 2 diabetes mellitus: Fairly well controlled - last OygD9E=7.6 in January 2020 -ISS -Goal blood sugar 100 - 140 -CC diet as tolerated F/E/N - NSS at 80mL/hr x 1, monitor electrolytes, CC diet as tolerated Ppx - Continue home Eliquis and Protonix Code - Full per discussion with patient, at bedside Dispo - Admit to medical floor. Patient was reluctant to be admitted to the hospital - wants to be discharged as soon as safely possible Present on Admission?: Yes History of Present Illness Chief Complaint: Fall Primary Care Provider: Spencer Baltazar MD Cl Watson is an 84yo male with history of AF on Eliquis anticoagulation, DM, SUE and Dementia presenting after a fall at home. Patient was recently admitted to [facility] from 02/23/20 - 02/26/20 with diarrhea and UTI. His workup included negative c. diff, urine culture from 02/23/20 + pansensitive E. Coli. He was discharged home in stable condition on 02/26/20 with arrangements made for home PT/OT three times weekly as well as home nursing. He is taking Keflex for his UTI as well as probiotics. Patient reports diarrhea continued since arriving home. He was having loose stools every 10 minutes which slowed to every 30 minutes. No BM over the last 5 hours. No blood or mucus reported. Today he got up to the couch and turned too fast and lost his balance. He fell onto his left side. Patient was unable to get up due to diffuse weakness. His ultimately helped him up. Patient complaining of being hungry. Also with complaint of left sided rib pain with deep breathing. No additional complaints at this time. Patient denies fevers/chills/CP/cough/SOB/nausea/vomiting. He denies exposure to Covid-19 and had a negative Covid test on 02/23/20. ER Course: Morphine, NSS Allergies Allergy/AdvReac Type Severity Reaction Status Date / Time No Known Allergies Allergy Verified 02/29/20 18:39 Home Medications Home Medications Medication Instructions Recorded Confirmed Type metoprolol tartrate 100 mg PO BID 03/02/18 02/29/20 History omeprazole 40 mg PO BID 03/02/18 02/29/20 History tramadol 50 mg PO BID PRN 07/02/18 02/29/20 History Men's Multivitamin 1 tab PO QAM 09/28/19 02/29/20 History sodium bicarbonate 650 mg PO BID 09/28/19 02/29/20 History Eliquis 2.5 mg PO BID 12/06/19 02/29/20 History calcium carbonate 500 mg (1,250 1 tab PO BID tab 12/18/19 02/29/20 History mg)-vitamin D3 200 unit tablet vitamin B complex 1 tab PO BID tab 12/18/19 02/29/20 History betamethasone dipropionate 0.05 % 1 applic TOPICAL BID #45 g 02/22/20 02/29/20 Rx topical ointment calcitriol 0.5 mcg PO 3XWK 02/23/20 02/29/20 History donepezil 5 mg PO HS 02/23/20 02/29/20 History hydrocortisone 1 applic TOPICAL BID 02/23/20 02/29/20 History solifenacin [Vesicare] 10 mg PO HS 02/23/20 02/29/20 History tamsulosin 0.4 mg PO HS 02/23/20 02/29/20 History zinc oxide-cod liver oil 1 applic TOPICAL BID 02/23/20 02/29/20 History cephalexin 500 mg PO Q6H 5 Days #20 cap 02/26/20 02/29/20 Rx Past Med/Surg History Medical History (Updated 03/01/20 @ 02:01 by Mireya Carolina DO) Abnormal gallbladder ultrasound Atrial fibrillation Chronic kidney disease variable creatinines with baseline ~1.6-2.1 Degenerative disc disease Diabetes mellitus, type 2 diet controlled History of bleeding ulcers History of BPH Hx of migraines Hx of sleep apnea no device Leukocytosis Osteoarthritis Substernal chest pain Surgical History H/O gastric bypass 2004 H/O knee surgery "MULTIPLE KNEE SURGERIES"- R/L H/O shoulder replacement History of colonoscopy History of esophagogastroduodenoscopy (EGD) History of tooth extraction History of total knee replacement RT/LEFT History of total shoulder replacement LEFT Hx of transurethral resection of prostate Family History Sister Family history of diabetes mellitus Social History Smoking Status: Former smoker Tobacco Type: Cigarettes Second Hand Exposure: No; Hx Alcohol Use: No Hx Substance Use: No Preferred Language: Polish Communication Ability: Effective Implementation Technician Required: No Beliefs That Will Affect Care: None marital status: Current Living Situation: Spouse Current Living Situation Comment: lives with ex- Other Information That Helps Us Care for You: No Feels Safe at Home: Yes Safety Concerns: Feels Safe At This Time Assistive Devices: Denture - Lower and Walker Review of Systems Review of Systems: All systems reviewed & are unremarkable except as noted in HPI & below Physical Exam Physical Exam: General: patient resting comfortably, NAD, non-toxic in appearance, AA&O x 4 Skin: warm, dry, intact, no rashes or lesions HEENT: NC/AT, PERRL, EOMI, anicteric sclera, conjunctiva without injection, external ear normal to inspection and nontender, nares patent, DRY mucus membranes, dentition intact, no oropharyngeal lesions, neck supple, trachea midline, no LAD, no thyromegaly, no JVD Heart: +S1/S2, irregularly irregular, no m/r/g, mild tenderness with deep breathing on left ribs, no crepitus to palpation, normal chest wall movement Lungs: equal air entry bilaterally, no rales/rhonchi/wheezes Abd: +BS, soft, NT/ND, no masses/organomegaly/ascites Ext: warm, 2+ pulses in UE/LE bilaterally, no clubbing/cyanosis or edema Neuro: nonfocal, patient AA&O x 4, speech intact, no facial droop, moving all extremities on command with equal strength 5/5 Results & Data Results & Data ([facility]) Vital Signs (Past 12 Hours) Vital Signs Temp Pulse Resp BP Pulse Ox 02/29/20 21:00 110 H 24 126/88 95 02/29/20 20:01 23 109/82 95 02/29/20 19:00 115 H 20 126/72 94 02/29/20 18:30 102 H 23 125/81 95 02/29/20 17:53 95 02/29/20 17:25 36.8 C 122 H 20 131/67 99 Laboratory Results Lab Results 02/29/20 02/29/20 02/29/20 Range/Units 18:25 18:25 18:25 WBC 7.74 (4.8-10.8) K/uL RBC 3.87 L (4.7-6.1) M/uL Hgb 10.8 L (14.0-18.0) g/dL Hct 34.0 L (42-52) % MCV 87.9 (80-100) fL MCH 27.9 (25-34) pg MCHC 31.8 L (32-36) g/dL RDW Std Deviation 49.4 H (36.4-46.3) fL RDW Coeff of Yinka 15.3 H (11.5-14.5) % Plt Count 209 (130-400) K/uL MPV 11.3 H (7.4-10.4) fL Immature Gran % (Auto) 0.8 % Neut % (Auto) 85.3 % Lymph % (Auto) 6.8 % Gallia % (Auto) 6.8 % Eos % (Auto) 0.0 % Baso % (Auto) 0.3 % Neut # (Auto) 6.60 H (1.4-6.5) K/uL Lymph # (Auto) 0.53 L (1.2-3.4) K/uL Gallia # (Auto) 0.53 (0.11-0.59) K/uL Eos # (Auto) 0.00 (0-0.5) K/uL Baso # (Auto) 0.02 (0-0.2) K/uL Immature Gran # (Auto) 0.06 H (0.00-0.02) K/uL Sodium 135 L (136-145) mmol/L Potassium 3.8 (3.5-5.1) mmol/L Chloride 104 (98-107) mmol/L Carbon Dioxide 23 (21-32) mmol/L Anion Gap 8.0 (3-11) BUN 21 H (7-18) mg/dl Creatinine 2.24 H (0.6-1.4) mg/dl Est Cr Clr Drug Dosing 28.1 ml/min Est GFR ( Amer) 30.3 Est GFR (Non-Af Amer) 26.1 BUN/Creatinine Ratio 9.2 L (10-20) Glucose 175 H (70-99) mg/dl POC Glucose (70-99) mg/dl Lactate 2.0 (0.4-2.0) mmol/L Calcium 8.5 (8.5-10.1) mg/dl Phosphorus 3.0 (2.5-4.9) mg/dl Magnesium 1.7 L (1.8-2.4) mg/dl Total Bilirubin 0.5 (0.2-1) mg/dl AST 49 H (15-37) U/L ALT 38 (12-78) U/L Alkaline Phosphatase 99 (45-117) U/L Total Protein 7.3 (6.4-8.2) gm/dl Albumin 2.5 L (3.4-5.0) gm/dl Globulin 4.8 H (2.5-4.0) gm/dl Albumin/Globulin Ratio 0.5 L (0.9-2) TSH 1.290 (0.300-4.500) uIu/ml 03/01/20 Range/Units 00:44 WBC (4.8-10.8) K/uL RBC (4.7-6.1) M/uL Hgb (14.0-18.0) g/dL Hct (42-52) % MCV (80-100) fL MCH (25-34) pg MCHC (32-36) g/dL RDW Std Deviation (36.4-46.3) fL RDW Coeff of Yinka (11.5-14.5) % Plt Count (130-400) K/uL MPV (7.4-10.4) fL Immature Gran % (Auto) % Neut % (Auto) % Lymph % (Auto) % Gallia % (Auto) % Eos % (Auto) % Baso % (Auto) % Neut # (Auto) (1.4-6.5) K/uL Lymph # (Auto) (1.2-3.4) K/uL Gall[place] # (Auto) (0.11-0.59) K/uL Eos # (Auto) (0-0.5) K/uL Baso # (Auto) (0-0.2) K/uL Immature Gran # (Auto) (0.00-0.02) K/uL Sodium (136-145) mmol/L Potassium (3.5-5.1) mmol/L Chloride (98-107) mmol/L Carbon Dioxide (21-32) mmol/L Anion Gap (3-11) BUN (7-18) mg/dl Creatinine (0.6-1.4) mg/dl Est Cr Clr Drug Dosing ml/min Est GFR ( Amer) Est GFR (Non-Af Amer) BUN/Creatinine Ratio (10-20) Glucose (70-99) mg/dl POC Glucose 155 H (70-99) mg/dl Lactate (0.4-2.0) mmol/L Calcium (8.5-10.1) mg/dl Phosphorus (2.5-4.9) mg/dl Magnesium (1.8-2.4) mg/dl Total Bilirubin (0.2-1) mg/dl AST (15-37) U/L ALT (12-78) U/L Alkaline Phosphatase (45-117) U/L Total Protein (6.4-8.2) gm/dl Albumin (3.4-5.0) gm/dl Globulin (2.5-4.0) gm/dl Albumin/Globulin Ratio (0.9-2) TSH (0.300-4.500) uIu/ml Diagnostic Findings ABDOMEN AND PELVIS CT WITHOUT CONTRAST CT DOSE: 2356.08 mGy.cm HISTORY: Acute generalized abdominal pain status post fall fall, ab pain, on thinners, [place] TECHNIQUE: Multiaxial CT images of the abdomen and pelvis were performed without contrast. A dose lowering technique was utilized adhering to the principles of ALARA. COMPARISON STUDY: CT abdomen and pelvis 02/23/2020 FINDINGS: Clear lung bases. There is no pneumatosis or pneumoperitoneum. Coronary artery calcifications with mild cardiomegaly and small pericardial effusion. Limited evaluation of the solid abdominal organs without the use of IV contrast. Within the limitations of the study, the spleen, adrenal glands and liver appear unremarkable. Mild gallbladder distention with layering cholelithiasis. No gallbladder wall thickening or pericholecystic fluid. No biliary ductal dilation. Mild generalized pancreatic atrophy. Mild nonspecific bilateral perinephric stranding. 2 mm nonobstructing calculus of the inferior pole left kidney with probable punctate calculus of the superior pole. No ureteral calculi or obstructive uropathy. Partial distention of the bladder with moderate wall thickening and perivesicular stranding. Moderate to marked prostamegaly. Calcifications of the penis. Extensive calcified plaque the abdominal aorta without aneurysm. No adenopathy or retroperitoneal hematoma. Mild wall thickening of the distal esophagus. Postoperative changes of prior gastric bypass. No bowel obstruction. Wall thickening of the distal sigmoid and rectum has mildly improved from comparison. There is persistent perirectal inflammation with trace free fluid. Colonic diverticulosis without acute diverticulitis. Normal appendix. Mild retained enteric contrast involves a few loops of bowel. Unremarkable soft tissues. Degenerative changes of the spine, pelvis and hips. Unchanged sclerosis involving the left SI joint. No acute fracture identified. Unchanged superior endplate Schmorl's node at L3. IMPRESSION: 1. No acute posttraumatic intra-abdominal or intrapelvic abnormality identified. 2. No acute fracture. 3. Mild improvement of the distal sigmoid and rectal wall thickening suggestive of a nonspecific proctocolitis. Correlation should be made with follow-up colonoscopy to exclude a mucosal lesion. 4. Mild gallbladder distention with cholelithiasis. 5. Nonobstructing left nephrolithiasis. 6. Additional findings as above. ACT 112: Negative or not required by law. The above report was generated using voice recognition software. It may contain grammatical, syntax or spelling errors. Electronically signed by: Slim Armenta M.D. 02/29/2020 7:55 PM Dictated: 02/29/201947 Transcribed: 02/29/201947 CT head/brain wo con CLINICAL HISTORY: 84 years-old Male with fall on thinners. Acute head injury status post fall TECHNIQUE: Multiple axial CT images of the head were obtained without contrast. A dose lowering technique was utilized adhering to the principles of ALARA. COMPARISON: Head CT 02/23/2020 FINDINGS: No acute intracranial hemorrhage, midline shift, intracranial mass, hydrocephalus, territorial ischemia or abnormal extra-axial collection. Mild age-related involutional changes. Mild patchy white matter hypodensities suggest chronic microvascular ischemic disease. Senescent calcifications of the lentiform nuclei. Cerebral vascular calcifications. The calvarium is intact. The paranasal sinuses, mastoid air cells, and middle ear cavities are clear. IMPRESSION: No acute intracranial abnormality or calvarial fracture. ACT 112: Negative or not required by law. The above report was generated using voice recognition software. It may contain grammatical, syntax or spelling errors. Electronically signed by: Slim Armenta M.D. 02/29/2020 7:47 PM Dictated: 02/29/201945 XR ribs LT min 3V w [id number] HISTORY: 84 years-old Male pain post fall acute left-sided rib pain status post fall COMPARISON: Chest radiograph 09/28/2019 TECHNIQUE: AP view of the chest with 4 views of the left ribs FINDINGS: Cardiac silhouette is mildly enlarged, unchanged. Calcified plaque of the thoracic aortic arch. Mild blunting of the right costophrenic angle may reflect trace effusion versus atelectasis. No pneumothorax, overt pulmonary edema or airspace consolidation typical for pneumonia. Degenerative changes of the right shoulder and spine. Reverse left shoulder total joint arthroplasty. Surgical suture material projects over the abdominal left upper quadrant. No acute rib fracture identified. There is a mild cortical thickening suggestive of subtle healed remote fracture deformities. Subtle cortical irregularity involves the anterior left fifth and sixth ribs. IMPRESSION: 1. No acute processes of the chest. 2. No acute displaced rib fracture or pneumothorax. 3. Subtle cortical irregularity involves the anterior left fifth and sixth ribs. Correlate with point tenderness to exclude acute nondisplaced fractures. ACT 112: Negative or not required by law. The above report was generated using voice recognition software. It may contain grammatical, syntax or spelling errors. Electronically signed by: Slim Armenta M.D. 02/29/2020 8:41 PM Dictated: 02/29/202037 Transcribed: 02/29/202037 ECG Additional Comments: EKG with AF at 114 bpm, leftward axis, QRS=80, RRh=033, no acute ischemic changes Code Status & VTE Plan Code Status FULL VTE Prophylaxis Plan VTE Prophylaxis will be ordered: Yes PG Care Time/CCT Total # of Minutes Spent Total Time Spent with Patient: Total time spent is greater than 50% in coordination of care (as documented) at patient's floor/unit and/or counseling patient: Coding Level of Care Code 76227 Initial Inpt Care Lvl 3 Diagnoses Fall W19.XXXA Encounter type: initial encounter UTI (urinary tract infection) N30.00 Urinary tract infection type: acute cystitis Hematuria presence: without hematuria Diarrhea R19.7 Diarrhea type: unspecified type Atrial fibrillation with rapid ventricular response I48.91 Benign prostatic hyperplasia with urinary obstruction N40.1; N13.8 Dementia F03.90 Dementia type: unspecified type Dementia behavioral disturbance: without behavioral disturbance CKD (chronic kidney disease) N18.9 Chronic kidney disease stage: unspecified stage GERD (gastroesophageal reflux disease) K21.9 Esophagitis presence: esophagitis presence not specified Type 2 diabetes mellitus E11.9 (1) UTI (urinary tract infection) Urinary tract infection type: acute cystitis Hematuria presence: without hematuria Qualified Code(s): N30.00 - Acute cystitis without hematuria (2) Diarrhea Diarrhea type: unspecified type Qualified Code(s): R19.7 - Diarrhea, unspecified (3) Dementia Dementia type: unspecified type Dementia behavioral disturbance: without behavioral disturbance Qualified Code(s): F03.90 - Unspecified dementia without behavioral disturbance (4) CKD (chronic kidney disease) Chronic kidney disease stage: unspecified stage Qualified Code(s): N18.9 - Chronic kidney disease, unspecified (5) GERD (gastroesophageal reflux disease) Esophagitis presence: esophagitis presence not specified Qualified Code(s): K21.9 - Gastro-esophageal reflux disease without esophagitis (6) Fall Encounter type: initial encounter Qualified Code(s): W19.XXXA - Unspecified fall, initial encounter
[2020-03-01] MEDS ORDERED: TRAMADOL HCL 50 MG TABLET PO PRN (00:02)
[2020-03-01] MEDS ORDERED: GLUCAGON FOR INJ 1 MG VIAL SQ PRN (00:02)
[2020-03-01] MEDS ORDERED: MoRPHine SULFATE 2 MG/ML CARP IV PRN (00:02)
[2020-03-01] MEDS ORDERED: DEXTROSE 50% 50 ML SYRINGE IV PRN (00:02)
[2020-03-01] MEDS ORDERED: DOCUSATE SODIUM 100 MG CAP PO PRN (00:02)
[2020-03-01] MEDS ORDERED: GLUCOSE 40% GEL 15 GM TUBE PO PRN (00:02)
[2020-03-01] MEDS ORDERED: SODIUM CHLORIDE 0.9% 1000ML 1,000 ML IV SCH (00:02)
[2020-03-01] MEDS ORDERED: GLUCOSE 10 TABS/TUBE PO PRN (00:02)
[2020-03-01] MEDS ORDERED: CARBOHYDRATES FOR HYPOGLYCEMIA PO PRN (00:02)
[2020-03-01] MEDS: ACETAMINOPHEN 325 MG TAB PO PRN ×2 (00:53→07:36)
[2020-03-01] MEDS: METOPROLOL TARTRATE 100 MG TAB PO SCH ×2 (00:53→07:37)
[2020-03-01] MEDS: INSULIN ASPART 100 UNITS/ML 3 ML PEN SC SCH ×3 (00:53→12:16)
[2020-03-01 00:55] LABS: Magnesium 1.7 mg/dl (1.8-2.4)
[2020-03-01] MEDS: cephALEXin 250 MG CAP PO SCH ×2 (06:14→14:05)
[2020-03-01 06:29] LABS: Basophils # (auto) 0.01 K/uL (0-0.2); Basophils % (auto) 0.2 %; Eosinophils # (auto) 0.02 K/uL (0-0.5); Eosinophils % (auto) 0.4 %; Hematocrit (blood only) 29.4 % (42-52); Hemoglobin 9.5 g/dL (14.0-18.0); Immature Granulocytes # (auto) 0.07 K/uL (0.00-0.02); Immature Granulocytes % (auto) 1.5 %; Lymphocytes # (auto) 0.67 K/uL (1.2-3.4); Lymphocytes % (auto) 14.7 %; Mean Corpuscular Hemoglobin 28.4 pg (25-34); Mean Corpuscular Hgb Conc 32.3 g/dL (32-36); Mean Corpuscular Volume 87.8 fL (80-100); Mean Platelet Volume 10.9 fL (7.4-10.4); Monocytes # (auto) 0.73 K/uL (0.11-0.59); Neutrophils # (auto) 3.07 K/uL (1.4-6.5); Neutrophils % (auto) 67.2 %; Platelet Count 167 K/uL (130-400); RDW Coefficient of Variation 15.4 % (11.5-14.5); Red Blood Count 3.35 M/uL (4.7-6.1); White Blood Count 4.57 K/uL (4.8-10.8)
[2020-03-01 07:05] LABS: BUN Creatinine Ratio 10.8 (10-20); Calcium 8.6 mg/dl (8.5-10.1); Creatinine Clr Calc Pharmacy 31.5 ml/min; Est GFR (Non-African American) 30.2; Potassium 3.7 mmol/L (3.5-5.1)
[2020-03-01] MEDS ORDERED: COD LIVER OIL TOP SCH (09:00)
[2020-03-01] MEDS ORDERED: ZINC OXIDE TOP SCH (09:00)
[2020-03-01] MEDS ORDERED: SODIUM BICARBONATE 650 MG TAB PO SCH (09:00)
[2020-03-01] MEDS ORDERED: BETAMETHASONE DIP AUG 0.05% OINT 15 GM TUBE EXT SCH (09:00)
[2020-03-01] MEDS ORDERED: APIXABAN 2.5 MG TAB PO SCH (09:00)
[2020-03-01] MEDS ORDERED: PANTOprazole 40 MG TAB PO SCH (09:00)
[2020-03-01] MEDS ORDERED: CALCITRIOL 0.25 MCG CAPSULE PO SCH (09:00)
[2020-03-01] MEDS ORDERED: SACCHAROMYCES BOULARDII 250 MG CAP PO SCH (09:00)
[2020-03-01] MEDS ORDERED: DICLOFENAC SOD 1% GEL 100 GM TUBE EXT PRN (13:33)
--- NOTE | 2020-03-01 14:16 | Emergency Department Note ---
Impression & Plan KENROY (acute kidney injury), Abdominal pain, Fall ED Provider Note NAME: ANABELLE WILLIAMSON AGE: 84 SEX: M : 1935 ARRIVES VIA: Walk-In INFORMANT: Patient, ED PROVIDER(S): Daniel Sexton MD Chief Complaint: Weakness, fall HPI: Patient was seen due to concern for weakness and fall. The patient did have a recent admission and subsequent discharge for a kidney infection and has been on antibiotics. Patient has had 8 to 9 days of voluminous diarrheal symptoms. The patient has had some weakness and yesterday did have a fall striking the left side of his abdomen. The patient does have some abdominal discomfort. The patient does take blood thinning medications. The patient denies any fevers, chills, chest pains, or shortness of breath. The patient denies any extremity or back pain. Patient states he did try to take some Tylenol but without much relief in his symptoms. Patient does state that his main concern is his fatigue and weakness. ROS: See HPI for pertinent positives and negatives. A total of 10 systems were reviewed and otherwise negative. Past medical history: See below Surgical history: See below Social history: See below Physical Exam: GENERAL: Glasses and a mask. NAD, non-toxic. EYE EXAM: Normal conjunctiva. PERRL, no anisocoria and EOM's grossly intact w/o pain. NECK: Supple, no nuchal rigidity, no adenopathy, non-tender. No signs of meningismus. LUNGS: Clear to auscultation. Normal chest wall mechanics. HEART: Tachycardic, irregularly irregular, no MRG. Chest: No left-sided chest wall pain. ABDOMEN: Abdomen soft, mild discomfort to the left upper quadrant without any obvious bruising, normo-active bowel sounds, no masses, no rebound or guarding. BACK: No CVA TTP. SKIN: No rashes and no bruising. UPPER EXTREMITIES: Upper extremities are grossly normal. LOWER EXTREMITIES: Grossly normal, no edema. NEURO EXAM: A&O x3, cranial nerves II-XII grossly intact, normal speech, moves all 4 extremities on command w/o issue. Differential diagnoses: Fracture, dislocation, contusion, intra-abdominal, pneumothorax, intrathoracic, intracranial, neurologic, compartment syndrome, rhabdomyolysis, as well as other pathologies. Course: Patient was seen and evaluated the bedside. Full history physical exam was performed. EKG: Indication: Weakness Imaging Studies: Radiology results as stated below per my review in the radiologist's interpretation: ABDOMEN AND PELVIS CT WITHOUT CONTRAST CT DOSE: 2356.08 mGy.cm HISTORY: Acute generalized abdominal pain status post fall fall, ab pain, on thinners, KENROY TECHNIQUE: Multiaxial CT images of the abdomen and pelvis were performed without contrast. A dose lowering technique was utilized adhering to the principles of ALARA. COMPARISON STUDY: CT abdomen and pelvis 02/23/2020 FINDINGS: Clear lung bases. There is no pneumatosis or pneumoperitoneum. Coronary artery calcifications with mild cardiomegaly and small pericardial effusion. Limited evaluation of the solid abdominal organs without the use of IV contrast. Within the limitations of the study, the spleen, adrenal glands and liver appear unremarkable. Mild gallbladder distention with layering cholelithiasis. No gallbladder wall thickening or pericholecystic fluid. No biliary ductal dilation. Mild generalized pancreatic atrophy. Mild nonspecific bilateral perinephric stranding. 2 mm nonobstructing calculus of the inferior pole left kidney with probable punctate calculus of the superior pole. No ureteral calculi or obstructive uropathy. Partial distention of the bladder with moderate wall thickening and perivesicular stranding. Moderate to marked prostamegaly. Calcifications of the penis. Extensive calcified plaque the abdominal aorta without aneurysm. No adenopathy or retroperitoneal hematoma. Mild wall thickening of the distal esophagus. Postoperative changes of prior gastric bypass. No bowel obstruction. Wall thickening of the distal sigmoid and rectum has mildly improved from comparison. There is persistent perirectal inflammation with trace free fluid. Colonic diverticulosis without acute diverticulitis. Normal appendix. Mild retained enteric contrast involves a few loops of bowel. Unremarkable soft tissues. Degenerative changes of the spine, pelvis and hips. Unchanged sclerosis involving the left SI joint. No acute fracture identified. Unchanged superior endplate Schmorl's node at L3. IMPRESSION: 1. No acute posttraumatic intra-abdominal or intrapelvic abnormality identified. 2. No acute fracture. 3. Mild improvement of the distal sigmoid and rectal wall thickening suggestive of a nonspecific proctocolitis. Correlation should be made with follow-up colonoscopy to exclude a mucosal lesion. 4. Mild gallbladder distention with cholelithiasis. 5. Nonobstructing left nephrolithiasis. 6. Additional findings as above. ACT 112: Negative or not required by law. The above report was generated using voice recognition software. It may contain grammatical, syntax or spelling errors. Electronically signed by: Slim Armenta M.D. 02/29/2020 7:55 PM Dictated: 02/29/201947 Transcribed: 02/29/201947 CT head/brain wo con CLINICAL HISTORY: 84 years-old Male with fall on thinners. Acute head injury status post fall TECHNIQUE: Multiple axial CT images of the head were obtained without contrast. A dose lowering technique was utilized adhering to the principles of ALARA. COMPARISON: Head CT 02/23/2020 FINDINGS: No acute intracranial hemorrhage, midline shift, intracranial mass, hydrocephalus, territorial ischemia or abnormal extra-axial collection. Mild age-related involutional changes. Mild patchy white matter hypodensities suggest chronic microvascular ischemic disease. Senescent calcifications of the lentiform nuclei. Cerebral vascular calcifications. The calvarium is intact. The paranasal sinuses, mastoid air cells, and middle ear cavities are clear. IMPRESSION: No acute intracranial abnormality or calvarial fracture. ACT 112: Negative or not required by law. The above report was generated using voice recognition software. It may contain grammatical, syntax or spelling errors. Electronically signed by: Slim Armenta M.D. 02/29/2020 7:47 PM Dictated: 02/29/201945 Transcribed: 02/29/201945 XR ribs LT min 3V w [id number] HISTORY: 84 years-old Male pain post fall acute left-sided rib pain status post fall COMPARISON: Chest radiograph 09/28/2019 TECHNIQUE: AP view of the chest with 4 views of the left ribs FINDINGS: Cardiac silhouette is mildly enlarged, unchanged. Calcified plaque of the thoracic aortic arch. Mild blunting of the right costophrenic angle may reflect trace effusion versus atelectasis. No pneumothorax, overt pulmonary edema or airspace consolidation typical for pneumonia. Degenerative changes of the right shoulder and spine. Reverse left shoulder total joint arthroplasty. Surgical suture material projects over the abdominal left upper quadrant. No acute rib fracture identified. There is a mild cortical thickening suggestive of subtle healed remote fracture deformities. Subtle cortical irregularity involves the anterior left fifth and sixth ribs. IMPRESSION: 1. No acute processes of the chest. 2. No acute displaced rib fracture or pneumothorax. 3. Subtle cortical irregularity involves the anterior left fifth and sixth ribs. Correlate with point tenderness to exclude acute nondisplaced fractures. ACT 112: Negative or not required by law. The above report was generated using voice recognition software. It may contain grammatical, syntax or spelling errors. Electronically signed by: Slim Armenta M.D. 02/29/2020 8:41 PM Dictated: 02/29/202037 Transcribed: 02/29/202037 Cardiac monitoring: An order was placed for continuous cardiac monitoring. The monitor shows a rate of 114 with irregularly irregular rhythm. MDM: Did present with concern for weakness and recent fall along with diarrhea symptoms. The patient was ordered IV fluids that her bladder complete along with CT abdomen pelvis as well as chest and rib x-rays. The patient did feel improved after medication treatment. CT abdomen pelvis was ordered as a noncon given patient does have acute kidney injury. No obvious concerning findings within the abdomen or pelvis. Chest x-ray did show the possibility of some nondisplaced rib fractures but the patient does not have pain over that area. No evidence of any hemopneumothorax. Given patient's KENROY and weakness I do not believe the patient would be suitable for outpatient follow-up and treatment at this time. I did speak alcohols with Dr. Carolina patient was subsequently made to the medicine service. Past Med/Surg History Medical History Abnormal gallbladder ultrasound Atrial fibrillation Chronic kidney disease variable creatinines with baseline ~1.6-2.1 Degenerative disc disease Diabetes mellitus, type 2 diet controlled History of bleeding ulcers History of BPH Hx of migraines Hx of sleep apnea no device Leukocytosis Osteoarthritis Substernal chest pain Surgical History H/O gastric bypass 2004 H/O knee surgery "MULTIPLE KNEE SURGERIES"- R/L H/O shoulder replacement History of colonoscopy History of esophagogastroduodenoscopy (EGD) History of tooth extraction History of total knee replacement RT/LEFT History of total shoulder replacement LEFT Hx of transurethral resection of prostate Family History Sister Family history of diabetes mellitus Social History Smoking Status: Former smoker Tobacco Type: Cigarettes Second Hand Exposure: No; Hx Alcohol Use: No Hx Substance Use: No Preferred Language: Kinyarwanda Communication Ability: Effective Enrollment Management Manager Required: No Beliefs That Will Affect Care: None marital status: Current Living Situation: Spouse Current Living Situation Comment: lives with ex- Other Information That Helps Us Care for You: No Feels Safe at Home: Yes Safety Concerns: Feels Safe At This Time Assistive Devices: Denture - Lower and Walker Allergies Allergies Allergy/AdvReac Type Severity Reaction Status Date / Time No Known Allergies Allergy Verified 02/29/20 18:39 Home Meds Home Medications Medication Instructions Recorded Confirmed metoprolol tartrate 100 mg PO BID 03/02/18 02/29/20 omeprazole 40 mg PO BID 03/02/18 02/29/20 tramadol 50 mg PO BID PRN 07/02/18 02/29/20 Men's Multivitamin 1 tab PO QAM 09/28/19 02/29/20 sodium bicarbonate 650 mg PO BID 09/28/19 02/29/20 Eliquis 2.5 mg PO BID 12/06/19 02/29/20 calcium carbonate 500 mg (1,250 1 tab PO BID tab 12/18/19 02/29/20 mg)-vitamin D3 200 unit tablet vitamin B complex 1 tab PO BID tab 12/18/19 02/29/20 calcitriol 0.5 mcg PO 3XWK 02/23/20 02/29/20 donepezil 5 mg PO HS 02/23/20 02/29/20 hydrocortisone 1 applic TOPICAL BID 02/23/20 02/29/20 solifenacin [Vesicare] 10 mg PO HS 02/23/20 02/29/20 tamsulosin 0.4 mg PO HS 02/23/20 02/29/20 zinc oxide-cod liver oil 1 applic TOPICAL BID 02/23/20 02/29/20 Previous Rx's Medication Instructions Recorded betamethasone dipropionate 0.05 % 1 applic TOPICAL BID #45 g 02/22/20 topical ointment cephalexin 500 mg PO Q6H 5 Days #20 cap 02/26/20 Results & Data (ED) Vital Signs Vital Signs - 24 hr 02/29/20 17:25 02/29/20 17:53 02/29/20 18:30 Temperature 36.8 C Temperature Source Oral Pulse Rate 122 H 102 H Pulse Rate from SpO2 Sensor 110 H Respiratory Rate 20 23 Respiratory Effort / Characteristics Non-Labored Spontaneous Respiratory Depth Normal Respiratory Pattern Regular Blood Pressure 131/67 125/81 Blood Pressure Mean 88 105 Blood Pressure Position Sitting Pulse Oximetry 99 95 95 Oxygen Delivery Method Room Air Room Air Room Air Sepsis Recent Fever Within 48 Hours No Sepsis New/Unexplained Change in Mental Status N/A Sepsis Action Taken by Nursing No Action Required 02/29/20 19:00 02/29/20 20:01 02/29/20 21:00 Temperature Temperature Source Pulse Rate 115 H 110 H Pulse Rate from SpO2 Sensor 95 H 112 H 112 H Respiratory Rate 20 23 24 Respiratory Effort / Characteristics Respiratory Depth Respiratory Pattern Blood Pressure 126/72 109/82 126/88 Blood Pressure Mean 95 97 94 Blood Pressure Position Pulse Oximetry 94 95 95 Oxygen Delivery Method Room Air Room Air Room Air Sepsis Recent Fever Within 48 Hours Sepsis New/Unexplained Change in Mental Status Sepsis Action Taken by Nursing 02/29/20 21:30 02/29/20 22:01 Temperature Temperature Source Pulse Rate 120 H 116 H Pulse Rate from SpO2 Sensor 114 H Respiratory Rate 24 20 Respiratory Effort / Characteristics Respiratory Depth Respiratory Pattern Blood Pressure 118/80 138/96 Blood Pressure Mean 85 100 Blood Pressure Position Pulse Oximetry 95 96 Oxygen Delivery Method Room Air Room Air Sepsis Recent Fever Within 48 Hours Sepsis New/Unexplained Change in Mental Status Sepsis Action Taken by Usp Medications Current Medication List: was personally reviewed by me Laboratory Data Attestation: I reviewed the patient's lab results. Result diagrams: 03/01/20 05:51 03/01/20 05:51 Lab Results 02/29/20 02/29/20 02/29/20 Range/Units 18:25 18:25 18:25 WBC 7.74 (4.8-10.8) K/uL RBC 3.87 L (4.7-6.1) M/uL Hgb 10.8 L (14.0-18.0) g/dL Hct 34.0 L (42-52) % MCV 87.9 (80-100) fL MCH 27.9 (25-34) pg MCHC 31.8 L (32-36) g/dL RDW Std Deviation 49.4 H (36.4-46.3) fL RDW Coeff of Yinka 15.3 H (11.5-14.5) % Plt Count 209 (130-400) K/uL MPV 11.3 H (7.4-10.4) fL Immature Gran % (Auto) 0.8 % Neut % (Auto) 85.3 % Lymph % (Auto) 6.8 % [place] % (Auto) 6.8 % Eos % (Auto) 0.0 % Baso % (Auto) 0.3 % Neut # (Auto) 6.60 H (1.4-6.5) K/uL Lymph # (Auto) 0.53 L (1.2-3.4) K/uL [place] # (Auto) 0.53 (0.11-0.59) K/uL Eos # (Auto) 0.00 (0-0.5) K/uL Baso # (Auto) 0.02 (0-0.2) K/uL Immature Gran # (Auto) 0.06 H (0.00-0.02) K/uL Sodium 135 L (136-145) mmol/L Potassium 3.8 (3.5-5.1) mmol/L Chloride 104 (98-107) mmol/L Carbon Dioxide 23 (21-32) mmol/L Anion Gap 8.0 (3-11) BUN 21 H (7-18) mg/dl Creatinine 2.24 H (0.6-1.4) mg/dl Est Cr Clr Drug Dosing 28.1 ml/min Est GFR ( Amer) 30.3 Est GFR (Non-Af Amer) 26.1 BUN/Creatinine Ratio 9.2 L (10-20) Glucose 175 H (70-99) mg/dl Lactate 2.0 (0.4-2.0) mmol/L Calcium 8.5 (8.5-10.1) mg/dl Phosphorus 3.0 (2.5-4.9) mg/dl Magnesium 1.7 L (1.8-2.4) mg/dl Total Bilirubin 0.5 (0.2-1) mg/dl AST 49 H (15-37) U/L ALT 38 (12-78) U/L Alkaline Phosphatase 99 (45-117) U/L Total Protein 7.3 (6.4-8.2) gm/dl Albumin 2.5 L (3.4-5.0) gm/dl Globulin 4.8 H (2.5-4.0) gm/dl Albumin/Globulin Ratio 0.5 L (0.9-2) TSH 1.290 (0.300-4.500) uIu/ml Administered Medications Acetaminophen (Acetaminophen 325 Mg Tab) 650 mg PO Q4H PRN PRN Reason: pain Stop: 03/31/20 00:01 Last Admin: 03/01/20 07:36 Dose: 650 mg Documented by: [id number] Admin: 03/01/20 00:53 Dose: 650 mg Documented by: [id number] Apixaban (Apixaban 2.5 Mg Tab) 2.5 mg PO BID [facility] Stop: 03/31/20 08:59 Last Admin: 03/01/20 07:38 Dose: 2.5 mg Documented by: [id number] Betamethasone Dipropion Augmented (Betamethasone Dip Aug 0.05% Oint 15 Gm Tube) 1 appln EXT BID [facility] Stop: 03/31/20 08:59 Last Admin: 03/01/20 07:38 Dose: 1 appln Documented by: [id number] Calcitriol (Calcitriol 0.25 Mcg Capsule) 0.5 mcg PO MoWeFr [facility] Stop: 03/31/20 08:59 Last Admin: 03/01/20 07:38 Dose: 0.5 mcg Documented by: [id number] Cephalexin HCl (Cephalexin 250 Mg Cap) 250 mg PO Q8 [facility]; Protocol Stop: 03/02/20 14:01 Last Admin: 03/01/20 14:05 Dose: 250 mg Documented by: [id number] Admin: 03/01/20 06:14 Dose: 250 mg Documented by: [id number] Diclofenac Sodium (Diclofenac Sod 1% Gel 100 Gm Tube) 2 gm EXT QID PRN PRN Reason: Pain Stop: 03/31/20 13:32 Last Admin: 03/01/20 14:04 Dose: 2 gm Documented by: [id number] Insulin Aspart (Insulin Aspart 100 Units/Ml 3 Ml Pen) 0 units SC ACHS [facility] Stop: 03/31/20 00:44 Last Admin: 03/01/20 12:16 Dose: 2 units Documented by: [id number] Cosigned by: [id number] Admin: 03/01/20 08:45 Dose: 1 units Documented by: [id number] Cosigned by: [id number] Admin: 03/01/20 00:53 Dose: 1 units Documented by: [id number] Cosigned by: [id number] Metoprolol Tartrate (Metoprolol Tartrate 100 Mg Tab) 100 mg PO BID [facility] Stop: 03/31/20 00:01 Last Admin: 03/01/20 07:37 Dose: Not Given Documented by: [id number] Admin: 03/01/20 00:53 Dose: 100 mg Documented by: [id number] Morphine Sulfate (Morphine Sulfate 2 Mg/Ml Carp) 2 mg IV Q4 PRN PRN Reason: Pain Stop: 03/15/20 00:01 Last Admin: 03/01/20 10:55 Dose: 2 mg Documented by: [id number] Pantoprazole Sodium (Pantoprazole 40 Mg Tab) 40 mg PO BID [facility] Stop: 03/31/20 08:59 Last Admin: 03/01/20 07:37 Dose: 40 mg Documented by: [id number] Saccharomyces Boulardii (Saccharomyces Boulardii 250 Mg Cap) 250 mg PO DAILY [facility] Stop: 03/31/20 08:59 Last Admin: 03/01/20 07:38 Dose: 250 mg Documented by: [id number] Sodium Bicarbonate (Sodium Bicarbonate 650 Mg Tab) 650 mg PO BID SHY Stop: 03/31/20 08:59 Last Admin: 03/01/20 07:38 Dose: 650 mg Documented by: [id number] Discontinued Medications Sodium Chloride (Nss 1000ml) 1,000 mls @ 999 mls/hr IV .[id number] ONE Stop: 02/29/20 18:52 Last Infusion: 02/29/20 21:00 Dose: 0 mls/hr Documented by: [id number] Admin: 02/29/20 18:27 Dose: 999 mls/hr Documented by: [id number] Sodium Chloride (Nss 1000ml) 1,000 mls @ 80 mls/hr IV .[id number] SHY Stop: 03/01/20 12:31 Last Admin: 03/01/20 00:53 Dose: 80 mls/hr Documented by: [id number] Morphine Sulfate (Morphine Sulfate 4 Mg/Ml 1 Ml Carp\\Vial) 4 mg IV NOW STA Stop: 02/29/20 17:57 Last Admin: 02/29/20 18:31 Dose: 4 mg Documented by: [id number] Discharge Plan Visit Data Chief Complaint: Infection Stated Complaint: INFECTION ED Provider: Daniel Sexton Discharge Problem: KENROY (acute kidney injury), Abdominal pain, Fall Patient Disposition: Admitted As Inpatient Discharge Instructions Interventions: ED Discharge Assessment Last Done: 02/29/20 23:17 Discharge Problem: Abdominal pain Qualifiers: Abdominal location: left upper quadrant Qualified Code(s): R10.12 - Left upper quadrant pain Fall Qualifiers: Encounter type: initial encounter Qualified Code(s): W19.XXXA - Unspecified fall, initial encounter
--- NOTE | 2020-03-01 14:57 | Discharge Summary ---
Date of Service March 01, 2020 Admission HPI Per Admitting Provider Cl Watson is an 84yo male with history of AF on Eliquis anticoagulation, DM, SUE and Dementia presenting after a fall at home. Patient was recently admitted to [facility] from 02/23/20 - 02/26/20 with diarrhea and UTI. His workup included negative c. diff, urine culture from 02/23/20 + pansensitive E. Coli. He was discharged home in stable condition on 02/26/20 with arrangements made for home PT/OT three times weekly as well as home nursing. He is taking Keflex for his UTI as well as probiotics. Patient reports diarrhea continued since arriving home. He was having loose stools every 10 minutes which slowed to every 30 minutes. No BM over the last 5 hours. No blood or mucus reported. Today he got up to the couch and turned too fast and lost his balance. He fell onto his left side. Patient was unable to g et up due to diffuse weakness. His ultimately helped him up. Patient complaining of being hungry. Also with complaint of left sided rib pain with deep breathing. No additional complaints at this time. Patient denies fevers/chills/CP/cough/SOB/nausea/vomiting. He denies exposure to Covid-19 and had a negative Covid test on 02/23/20. ER Course: Morphine, NSS Admission Exam Per Admitting Provider General: patient resting comfortably, NAD, non-toxic in appearance, AA&O x 4 Skin: warm, dry, intact, no rashes or lesions HEENT: NC/AT, PERRL, EOMI, anicteric sclera, conjunctiva without injection, external ear normal to inspection and nontender, nares patent, DRY mucus membranes, dentition intact, no oropharyngeal lesions, neck supple, trachea midline, no LAD, no thyromegaly, no JVD Heart: +S1/S2, irregularly irregular, no m/r/g, mild tenderness with deep breathing on left ribs, no crepitus to palpation, normal chest wall movement Lungs: equal air entry bilaterally, no rales/rhonchi/wheezes Abd: +BS, soft, NT/ND, no masses/organomegaly/ascites Ext: warm, 2+ pulses in UE/LE bilaterally, no clubbing/cyanosis or edema Neuro: nonfocal, patient AA&O x 4, speech intact, no facial droop, moving all extremities on command with equal strength 5/5 Principal Diagnosis Mechanical fall rib fracture UTI CKD Discharge Exam Constitutional WD/WN, vitals as above Eyes PERRL, conjunctivae normal, anicteric sclerae ENMT external ear and nose normal, oropharynx normal Neck normal visual inspection Respiratory normal respiratory effort, lungs clear to auscultation Cardiovascular irregularly irregular Gastrointestinal (Abdomen) - normal active bowel sounds, nTTP Skin no rashes, warm and dry Discharge Data Allergies Allergy/AdvReac Type Severity Reaction Status Date / Time No Known Allergies Allergy Verified 02/29/20 18:39 Consultations 02/29/20 21:12 ED Decision to Admit Stat Ordered Studies 02/29/20 17:55 CT head/brain wo con Stat 02/29/20 19:05 CT abd pelvis wo con Stat Hospital Course (1) Fall: 84yo C male presenting from home after a mechanical fall, trauma to left side. No head trauma, no LOC Possible multiple fracture of ribs, left side -rib series with concern for acute nondisplaced rib fracture on left -Patient has home services set up from recent hospitalization -Incentive spirometry - encourage use q 2 hours while awake -Tylenol, Tramadol, and Voltaren for pain UTI (urinary tract infection): Patient with UA + [place] sensitive E. Coli. He is afebrile, HD stable, non- toxic in appearance -Continue PO Keflex -Probiotic -Follow cultures, blood and urine Diarrhea (resolved): Patient with ongoing diarrhea, thought to be secondary to viral cause during last admission. C. 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 Stable -Continue Flomax 0.4mg po daily Dementia: Patient pleasant, answers questions appropriately -Continue Aricept 5mg po qHS Acute kidney failure CKD (chronic kidney disease) stage 3: Mild elevation in BUN and Cr from baseline. Cr. 1.9 at discharge, likely close to baseline after review of prior levels -Improved with hydration -Continue Rocaltrol -Continue NaHCO3 GERD (gastroesophageal reflux disease): Chronic -Continue Protonix 40mg po BID Type 2 diabetes mellitus: Fairly well controlled - last SheB7D=1.6 in January 2020 -Continue home medications Total Time Total Time Spent Total Time Spent (In Minutes): see attending attestation Discharge Plan Discharge Items Patient Disposition: Home - Self-Care Reason For Visit: FALL, DEHYDRATION Discharge Diagnosis: mechanical fall Activity: Per Instructions section Non-emergency contact: Primary Care Provider Call non-emergency contact if: your symptoms worsen Follow-up/Referrals: Spencer Baltazar MD [Primary Care Provider] - 03/05/20 2:00 pm Diet: Regular Addtl Attending Provider Instructions: Fall You fell and came to the hospital to get evaluated. We did imaging and it appears that you have a rib fracture that is nondisplaced. You did not hit your head and we did not see anything concerning on imaging your head. The fall was not associated with loss of consciousness. It will be important to think about safety when you are moving around at home. Remove rugs and ensure plenty of lighting. Rib fracture There looks to be a rib fracture, on your left side. You should continue to take medication to address your pain. You can use the Voltarn gel 4 times a day. Ensuring that you are pain free will allow you to breath deeper and prevent you from developing pneumonia or respiratory complications that can occur if you are not taking deep breaths. You can take your incentive spirometer home with you and continue to use this. Follow up You should follow up with your primary doctor in the next week. Return precautions If you have weakness, fever, cough, pain with urination, worsening shortness of breath, or concerns call, or come in to get evaluated. Pending Studies at Discharge: Yes Studies:: blood cultures urine cultures Stand-Alone Forms: My [facility] [employer], Smoking Cessation Medications and DC Order Prescriptions: New diclofenac sodium 1 % gel 4 g topical QID Qty: 100 RF: 0 Continued betamethasone dipropionate 0.05 % ointment 1 applic topical BID Qty: 45 RF: 0 tramadol 50 mg tablet 50 mg PO BID PRN (Reason: Pain) RF: 0 Men's Multivitamin 400-20-300 mcg Tablet 1 tab PO QAM RF: 0 sodium bicarbonate 650 mg tablet 650 mg PO BID RF: 0 Eliquis 2.5 mg Tablet 2.5 mg PO BID RF: 0 calcium carbonate-vitamin D3 [Calcium 500 + D] 500 mg(1,250mg) -200 unit tablet 1 tab PO BID RF: 0 vitamin B complex Tablet 1 tab PO BID RF: 0 zinc oxide-cod liver oil Ointment 1 applic TOPICAL BID RF: 0 donepezil 5 mg tablet 5 mg PO HS RF: 0 tamsulosin 0.4 mg capsule 0.4 mg PO HS RF: 0 calcitriol 0.5 mcg capsule 0.5 mcg PO 3XWK RF: 0 hydrocortisone 2.5 % cream 1 applic topical BID RF: 0 solifenacin [Vesicare] 10 mg tablet 10 mg PO HS RF: 0 cephalexin 500 mg capsule 500 mg PO Q6H 5 Days Qty: 20 RF: 0 metoprolol tartrate 100 mg Tablet 100 mg PO BID RF: 0 omeprazole 40 mg Capsule,Delayed Release(Dr/Ec) 40 mg PO BID RF: 0 Discharge Orders: Discharge Order (Routine); Ordered 03/01/20 Ordered By: James Toribio Admission Data Admit Date/Time: 02/29/20 22:10 Attending Provider: Liz Doe Admit Provider: Mireya Carolina Primary Care Provider: Spencer Baltazar Other Providers: Mireya Carolina Other Interventions: Discharge Summary Assessment (RN) Last Done: 03/01/20 14:42 Supervising Physician Co-Signing Physician Notes Resident Physician Supervision Note: I independently interviewed and examined the patient and verified the medina history and physical, reviewed labs and image studies, discussed the case with the resident Dr. Toribio and agree with the findings and care plan. Resident Activity Tracking Resident Involvement: Resident Care Provided Care Provided: Adult Hospital Medicine CBC Results Results Complete Blood Count Results: RBC 3.35 M/uL (4.7-6.1) L 03/01/20 WBC 4.57 K/uL (4.8-10.8) L 03/01/20 Hgb 9.5 g/dL (14.0-18.0) L 03/01/20 Hct 29.4 % (42-52) L 03/01/20 Plt Count 167 K/uL (130-400) 03/01/20 Chemistry (BMP) Results BMP Results: Sodium 139 mmol/L (136-145) 03/01/20 Potassium 3.7 mmol/L (3.5-5.1) 03/01/20 Chloride 109 mmol/L (98-107) H 03/01/20 BUN 21 mg/dl (7-18) H 03/01/20 Creatinine 1.99 mg/dl (0.6-1.4) H 03/01/20 Glucose 122 mg/dl (70-99) H 03/01/20
[2020-03-01] MEDS ORDERED: DONEPEZIL HCL 5 MG TAB PO SCH (21:00)
[2020-03-01] MEDS ORDERED: TAMSULOSIN HCL 0.4 MG CAP PO SCH (21:00)
--- NOTE | 2020-03-02 09:38 | Electrocardiogram Report ---
Test Reason : Blood Pressure : / mmHG Vent. Rate : 114 BPM Atrial Rate : 086 BPM P-R Int : 000 ms QRS Dur : 080 ms QT Int : 312 ms P-R-T Axes : 000 -12 022 degrees QTc Int : 430 ms Poor data quality, interpretation may be adversely affected Atrial fibrillation with rapid ventricular response Abnormal ECG When compared with ECG of 23-FEB-2020 10:45, HR has increased 13 bpm Otherwise no significant change Confirmed by Josue Pa ([id number]) on 03/02/2020 9:37:51 AM Referred By: REFERRED SELF Confirmed By:Josue Pa
== END 2020-03-01 17:43 | disposition home or self-care (01) ==
LOC: ED 17:22 → INTOOBSV 22:10 → 2N 22:10 → SUATTDRO 22:10 → 2N 23:17
DX: M19.90 Unspecified osteoarthritis, unspecified site; W19.XXXA Unspecified fall, initial encounter; Z79.899 Other long term (current) drug therapy; N40.1 Benign prostatic hyperplasia with lower urinary tract symptoms; N39.0 Urinary tract infection, site not specified; S29.8XXA Other specified injuries of thorax, initial encounter; I48.20 Chronic atrial fibrillation, unspecified; Y92.009 Unspecified place in unspecified non-institutional (private) residence as the place of occurrence of the external cause; F03.90 Unspecified dementia, unspecified severity, without behavioral disturbance, psychotic disturbance, mood disturbance, and anxiety; N17.9 Acute kidney failure, unspecified; R19.7 Diarrhea, unspecified; N13.8 Other obstructive and reflux uropathy; Z79.01 Long term (current) use of anticoagulants; N18.3 Chronic kidney disease, stage 3 (moderate); G47.33 Obstructive sleep apnea (adult) (pediatric); K21.9 Gastro-esophageal reflux disease without esophagitis; E11.22 Type 2 diabetes mellitus with diabetic chronic kidney disease; Z87.891 Personal history of nicotine dependence

== ENCOUNTER 2020-09-14 15:59 | Inpatient (IN) ==
[2020-09-14] MEDS ORDERED: NITROGLYCERIN SL 0.4 MG/TAB TAB SL ONE (16:32)
[2020-09-14 16:48] LABS: Basophils # (auto) 0.03 K/uL (0-0.2); Basophils % (auto) 0.4 %; Eosinophils # (auto) 0.23 K/uL (0-0.5); Eosinophils % (auto) 3.2 %; Hematocrit (blood only) 34.2 % (42-52); Hemoglobin 11.1 g/dL (14.0-18.0); Immature Granulocytes # (auto) 0.02 K/uL (0.00-0.02); Immature Granulocytes % (auto) 0.3 %; Lymphocytes # (auto) 1.88 K/uL (1.2-3.4); Lymphocytes % (auto) 25.9 %; Mean Corpuscular Hemoglobin 29.7 pg (25-34); Mean Corpuscular Hgb Conc 32.5 g/dL (32-36); Mean Corpuscular Volume 91.4 fL (80-100); Monocytes # (auto) 0.81 K/uL (0.11-0.59); Monocytes % (auto) 11.2 %; Neutrophils # (auto) 4.29 K/uL (1.4-6.5); Platelet Count 270 K/uL (130-400); RDW Coefficient of Variation 16.8 % (11.5-14.5); RDW Standard Deviation 56.2 fL (36.4-46.3); Red Blood Count 3.74 M/uL (4.7-6.1); White Blood Count 7.26 K/uL (4.8-10.8)
[2020-09-14 16:52] LABS: Alanine Aminotransferase 17 U/L (12-78); Albumin Level 2.6 gm/dl (3.4-5.0); Aspartate Aminotransferase 13 U/L (15-37); BUN Creatinine Ratio 13.2 (10-20); Blood Urea Nitrogen 34 mg/dl (7-18); Calcium 8.5 mg/dl (8.5-10.1); Carbon Dioxide 25 mmol/L (21-32); Chloride 114 mmol/L (98-107); Creatinine Clr Calc Pharmacy 22.2 ml/min; Est GFR (African American) 25.6; Est GFR (Non-African American) 22.1; Glucose 86 mg/dl (70-99); Lipase 53 U/L (73-393); Potassium 5.3 mmol/L (3.5-5.1); Sodium 142 mmol/L (136-145)
[2020-09-14 16:57] LABS: Albumin Globulin Ratio 0.7 (0.9-2); Alkaline Phosphatase 85 U/L (45-117); Bilirubin,Total 0.3 mg/dl (0.2-1); Globulin 3.9 gm/dl (2.5-4.0); Total Protein 6.5 gm/dl (6.4-8.2); Troponin I < 0.015 ng/ml (0-0.045)
--- NOTE | 2020-09-14 17:08 | XRay Report ---
XR chest 1V portable HISTORY: Atypical Chest Pain COMPARISON: Chest and left rib series 02/29/2020. FINDINGS: Emphysema. The heart remains mildly enlarged. No new focal lung consolidations to suggest p neumonia. No evidence for pulmonary edema. No pleural effusions. No pneumothorax. The left shoulder p rosthesis. IMPRESSION: No significant change compared to the prior study. No acute process. ACT 112: Negative or not required by law. Electronically signed by: Oscar Phillips M.D. 09/14/2020 5:06 PM
[2020-09-14] MEDS ORDERED: fentaNYL citrate 100 MCG/2 ML VIAL IV STA (17:52)
[2020-09-14] MEDS ORDERED: ONDANSETRON INJ 2 MG/ML 2 ML VIAL IV STA (17:52)
--- NOTE | 2020-09-14 18:55 | CT Scan Report ---
ABDOMEN AND PELVIS CT WITHOUT CONTRAST CT DOSE: 554.41 mGy.cm HISTORY: LUQ abd pain, L flank pain TECHNIQUE: Multiaxial CT images of the abdomen and pelvis were performed without contrast. A dose lo wering technique was utilized adhering to the principles of ALARA. COMPARISON STUDY: Abdomen and pelvis CT 02/29/2020. FINDINGS: The lung bases are essentially clear. No suspicious lytic or blastic osseous lesions. Small hiatus hernia. 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 The unenhance d liver, spleen, adrenal glands, and pancreas are unremarkable. Mild right renal atrophy, unchanged. There is moderate bilateral cortical renal scarring/thinning. This is also unchanged. No renal or ure teral stones. No hydronephrosis. The bladder is unremarkable. The prostate gland remains mildly enlar ged. There is mild infiltration surrounding the prostate gland, unchanged. Diffuse gallbladder wall t hickening with mild adjacent inflammatory change. The common bile duct is mildly distended for age me asuring up to 1.3 cm. This has progressed in the interval. These findings are suspicious for acute ch olecystitis. There is a single mildly enlarged pericholecystic lymph node measuring 1.4 cm. This may be reactive. Normal caliber abdominal aorta containing moderate calcified plaque. No dilated loops of bowel to suggest an obstruction. Colonic diverticulosis. No evidence for acute diverticulitis. Of no te, there is suboptimal evaluation for bowel pathology due to the lack of intravenous and oral contra st. Normal appendix. IMPRESSION: 1. Gallbladder wall thickening with mild adjacent inflammatory change. There is also a mildly distend ed common bile duct which has progressed. Findings are concerning for acute cholecystitis. Surgical c onsultation recommended. 2. No renal or ureteral stones. No hydronephrosis. 3. No evidence for bowel obstruction. 4. Normal appendix. 5. A single mildly enlarged pericholecystic lymph node measuring 1.4 cm. Survey be reactive. 6. Colonic diverticulosis. 7. No change in the mildly enlarged prostate gland with adjacent inflammatory change. This could repr esent a chronic prostatitis. ACT 112: Negative or not required by law. Electronically signed by: Oscar Phillips M.D. 09/14/2020 6:54 PM
[2020-09-14] MEDS ORDERED: cefOXitin 2,000 MG/60 ML BAG IV STA (19:09)
--- NOTE | 2020-09-14 20:02 | Emergency Department Note ---
Impression & Plan Substernal chest pain, Acute cholecystitis ED Provider Note INFORMANT: Patient ED PROVIDER(S): Tim Ratliff MD CHIEF COMPLAINT: Chest pain PLAN: Disposition: Admitted Condition: Good Outpatient prescription management: none Referral: None MEDICAL DECISION MAKING: Patient presented to the emergency department because of chest pain. On physical examination he had tenderness in the epigastrium and left upper quadrant as well. He was given a dose of nitroglycerin sublingually. This decreased his pain from an 8 to a 4 however his blood pressure dropped down to 96 systolic. He was not given any additional nitroglycerin. He was given a dose of IV fentanyl. On reassessment he had complete resolution of pain. His EKG showed an A. fib without acute ischemic change. His CBC and chemistry panel was unremarkable. Troponin was negative. The patient had unremarkable LFTs and lipase. CT imaging of his abdomen pelvis was performed due to the tenderness and he was found to have findings concerning for cholecystitis. Ultrasound imaging was ordered. Patient's chest x-ray was unremarkable. Consultation was placed with Dr. Zak Dye of the [facility] service. Patient was evaluated in the ER for further management.. I also discussed the case with with general surgery, Avtar Patricia PA-C. He asked for consult to be ordered and he would see the patient. Patient was given a dose of IV Mefoxin. I did order an ultrasound. Triage Nursing notes reviewed and agree them. Additional history obtained from patient's Vital Signs: reviewed and remarkable for no significant abnormalities Differential diagnosis: Cardiac ischemia, aortic dissection, pulmonary embolism, pneumothorax, pneumonia, pericarditis, myocarditis, esophageal rupture, GERD, cholecystitis, pancreatitis, musculoskeletal, as well as other pathologies. Diagnostics interpreted by me: ECG: Twelve-lead ECG reveals atrial fibrillation with PVCs at [address] elevation or depression. Normal axis and QRS. Cardiac Monitoring: Cardiac monitoring ordered by me: The patient was placed on continuous cardiac monitoring and observed. It revealed a atrial fibrillation 79 bpm. Imaging studies: Chest x-ray. Findings: A chest x-ray was performed and revealed no pneumothorax, effusion, infiltrate, pulmonary edema, free air under the diaphragm, or wide mediastinum. Impression: No acute disease. CT scan of the abdomen pelvis is concerning for acute cholecystitis. I refer you to the EMR for further details. Consultation(s): Internal medicine General surgery HPI: The patient is a 85 year old male who presents to the Emergency Room with complaints of substernal and left-sided chest pain. This started just prior to arrival and is described as aching. The patient also notes the following associated symptoms, transient nausea, pain radiating to the left shoulder and a rm. The patient has taken no medication for relieving factors. Current pain is rated as 8/10. Patient has a history of A. fib and is on Eliquis. I discussed a blank in there for second Pp denies LOC, headache, fevers, chills, diaphoresis, visual changes, neck pain, breathing difficulties, vomiting, abdominal pain, back pain, melena, hematochezia, urinary symptoms, numbness, weakness, lymphaden opathy, rash, or other complaints. ROS: See above HPI for pertinent positives & negatives. A total of 10 systems reviewed and were otherwise negative. PAST MEDICAL HISTORY:See Below , atrial fibrillation, peptic ulcer disease PAST SURGICAL HISTORY:See Below, gastric bypass FAMILY HISTORY:See Below SOCIAL HISTORY:See Below, HOME MEDICATIONS:See Below ALLERGIES:See Below VITALS:See Below PHYSICAL EXAMINATION: GENERAL: Awake, alert, uncomfortable-appearing, in no distress HENT: Normocephalic, atraumatic. Oropharynx unremarkable. EYES: Normal conjunctiva. Sclera non-icteric. NECK: Inspection normal. Non-tender. Supple. No nuchal rigidity. FROM. No masses. RESPIRATORY: Clear to auscultation. No wheezes. No rales. Normal respiratory effort. CARDIAC: Normal rate. Normal rhythm. No murmurs. No rubs. Extremities warm and well perfused. Pulses equal. No JVD. GI: Soft, non-distended. Epigastric and left upper quadrant tenderness to p alpation. No rebound or guarding. No masses. RECTAL: Deferred. MUSCULOSKELETAL: Atraumatic. Chest examination reveals no tenderness. The back is symmetrical on inspection without obvious abnormality. There is no CVA tenderness to palpation. No joint edema. LOWER EXTREMITIES: Calves are equal size bilaterally and non-tender. No edema. No discoloration. NEURO: Normal sensorium. No sensory or motor deficits noted. SKIN: No rash or jaundice noted. Tim Ratliff MD Past Med/Surg History Medical History (Updated 09/14/20 @ 19:56 by Tim Ratliff MD) Anemia Atrial fibrillation no cardioversion. treated with medication and follows with PCP. Chronic kidney disease variable creatinines with baseline ~1.6-2.1 Degenerative disc disease Diabetes mellitus, type 2 diet controlled Dysphagia "trouble keeping foods down" scheduled to 08/07/[address] Ean Shaffer. Fall walker and cane -- fall risk. History of bleeding ulcers History of BPH Hx of migraines Hx of sleep apnea no device Osteoarthritis Surgical History (Updated 09/04/20 @ 12:21 by Ean Abebe DO) H/O gastric bypass 2004 H/O knee surgery "MULTIPLE KNEE SURGERIES"- R/L History of colonoscopy History of esophagogastroduodenoscopy (EGD) History of tooth extraction History of total knee replacement RT/LEFT History of total shoulder replacement LEFT Hx of circumcision Hx of transurethral resection of prostate Family History Sister Family history of diabetes mellitus Social History Smoking Status: Former smoker Tobacco Type: Cigarettes Second Hand Exposure: Yes (hx); Hx Alcohol Use: No Hx Substance Use: No Preferred Language: Kosovan Communication Ability: Effective Net Developer Architect Required: No Beliefs That Will Affect Care: None marital status: Current Living Situation: Spouse Current Living Situation Comment: lives with ex- Feels Safe at Home: Yes Assistive Devices: Cane, Denture - Lower and Walker Allergies Allergies Allergy/AdvReac Type Severity Reaction Status Date / Time No Known Allergies Allergy Verified 09/14/20 17:51 Home Meds Home Medications Medication Instructions Recorded Confirmed metoprolol tartrate 50 mg PO BID 03/02/18 09/14/20 omeprazole 40 mg PO BID 03/02/18 09/14/20 Men's Multivitamin 1 tab PO BID 09/28/19 09/14/20 calcium carbonate 500 mg (1,250 1 tab PO BID tab 12/18/19 09/14/20 mg)-vitamin D3 200 unit tablet vitamin B complex 1 tab PO QAM tab 12/18/19 09/14/20 solifenacin [Vesicare] 10 mg PO QAM 02/23/20 09/14/20 apixaban 2.5 mg tablet 2.5 mg PO BID 07/24/20 09/14/20 donepezil 10 mg PO HS 07/29/20 09/14/20 sildenafil (pulm.hypertension) 20 mg PO UD PRN 07/29/20 09/14/20 tramadol 50 mg PO BID PRN 09/14/20 09/14/20 Previous Rx's Medication Instructions Recorded calcitriol 0.5 mcg capsule 0.5 mcg PO 3XWK #45 cap 07/16/20 sodium bicarbonate 650 mg tablet 650 mg PO BID #180 tab 07/16/20 triamcinolone acetonide 0.1 % 1 applic TOPICAL BID PRN #454 g 07/26/20 topical cream Results & Data (ED) Vital Signs Vital Signs - 24 hr 09/14/20 16:09 09/14/20 16:11 09/14/20 16:15 Temperature 36.5 C Temperature Source Oral Pulse Rate 66 76 70 Pulse Rate from SpO2 Sensor 73 76 Pulse Rhythm Irregular Respiratory Rate 18 12 16 Respiratory Effort / Characteristics Non-Labored Respiratory Depth Normal Respiratory Pattern Regular Blood Pressure 123/77 Blood Pressure Mean 92 Pulse Oximetry 97 98 96 Oxygen Delivery Method Room Air Sepsis Recent Fever Within 48 Hours No Sepsis New/Unexplained Change in Mental Status N/A Sepsis Action Taken by Nursing No Action Required 09/14/20 16:41 09/14/20 16:45 09/14/20 16:46 Temperature Temperature Source Pulse Rate 67 66 73 Pulse Rate from SpO2 Sensor 71 66 75 Pulse Rhythm Respiratory Rate 17 21 20 Respiratory Effort / Characteristics Respiratory Depth Respiratory Pattern Blood Pressure 101/66 110/57 L Blood Pressure Mean 77 74 Pulse Oximetry 97 97 96 Oxygen Delivery Method Sepsis Recent Fever Within 48 Hours Sepsis New/Unexplained Change in Mental Status Sepsis Action Taken by Nursing 09/14/20 16:49 09/14/20 16:54 09/14/20 17:01 Temperature Temperature Source Pulse Rate 83 69 Pulse Rate from SpO2 Sensor 75 Pulse Rhythm Respiratory Rate 16 15 Respiratory Effort / Characteristics Respiratory Depth Respiratory Pattern Blood Pressure 110/57 L 96/61 L Blood Pressure Mean 74 72 Pulse Oximetry 97 96 Oxygen Delivery Method Room Air Room Air Sepsis Recent Fever Within 48 Hours Sepsis New/Unexplained Change in Mental Status Sepsis Action Taken by Nursing 09/14/20 17:15 09/14/20 17:16 09/14/20 17:30 Temperature Temperature Source Pulse Rate 79 80 76 Pulse Rate from SpO2 Sensor 81 76 78 Pulse Rhythm Respiratory Rate 16 17 20 Respiratory Effort / Characteristics Respiratory Depth Respiratory Pattern Blood Pressure 96/70 L 107/60 Blood Pressure Mean 78 75 Pulse Oximetry 97 96 97 Oxygen Delivery Method Sepsis Recent Fever Within 48 Hours Sepsis New/Unexplained Change in Mental Status Sepsis Action Taken by Nursing 09/14/20 17:45 09/14/20 18:00 09/14/20 18:15 Temperature Temperature Source Pulse Rate 77 68 82 Pulse Rate from SpO2 Sensor 74 70 81 Pulse Rhythm Respiratory Rate 16 20 17 Respiratory Effort / Characteristics Respiratory Depth Respiratory Pattern Blood Pressure 113/78 109/76 107/81 Blood Pressure Mean 89 87 89 Pulse Oximetry 97 98 98 Oxygen Delivery Method Sepsis Recent Fever Within 48 Hours Sepsis New/Unexplained Change in Mental Status Sepsis Action Taken by Nursing 09/14/20 18:45 Temperature Temperature Source Pulse Rate 79 Pulse Rate from SpO2 Sensor 79 Pulse Rhythm Respiratory Rate 17 Respiratory Effort / Characteristics Respiratory Depth Respiratory Pattern Blood Pressure 102/71 Blood Pressure Mean 81 Pulse Oximetry 97 Oxygen Delivery Method Sepsis Recent Fever Within 48 Hours Sepsis New/Unexplained Change in Mental Status Sepsis Action Taken by Nursing Laboratory Data Result diagrams: 09/14/20 16:20 09/14/20 16:20 Lab Results 09/14/20 09/14/20 09/14/20 Range/Units 16:20 16:20 19:15 WBC 7.26 (4.8-10.8) K/uL RBC 3.74 L (4.7-6.1) M/uL Hgb 11.1 L (14.0-18.0) g/dL Hct 34.2 L (42-52) % MCV 91.4 (80-100) fL MCH 29.7 (25-34) pg MCHC 32.5 (32-36) g/dL RDW Std Deviation 56.2 H (36.4-46.3) fL RDW Coeff of Yinka 16.8 H (11.5-14.5) % Plt Count 270 (130-400) K/uL MPV 10.0 (7.4-10.4) fL Immature Gran % (Auto) 0.3 % Neut % (Auto) 59.0 % Lymph % (Auto) 25.9 % Dolores % (Auto) 11.2 % Eos % (Auto) 3.2 % Baso % (Auto) 0.4 % Neut # (Auto) 4.29 (1.4-6.5) K/uL Lymph # (Auto) 1.88 (1.2-3.4) K/uL Dolores # (Auto) 0.81 H (0.11-0.59) K/uL Eos # (Auto) 0.23 (0-0.5) K/uL Baso # (Auto) 0.03 (0-0.2) K/uL Immature Gran # (Auto) 0.02 (0.00-0.02) K/uL Sodium 142 (136-145) mmol/L Potassium 5.3 H (3.5-5.1) mmol/L Chloride 114 H (98-107) mmol/L Carbon Dioxide 25 (21-32) mmol/L Anion Gap 3.0 (3-11) BUN 34 H (7-18) mg/dl Creatinine 2.56 H (0.6-1.4) mg/dl Est Cr Clr Drug Dosing 22.2 ml/min Est GFR ( Amer) 25.6 Est GFR (Non-Af Amer) 22.1 BUN/Creatinine Ratio 13.2 (10-20) Glucose 86 (70-99) mg/dl Calcium 8.5 (8.5-10.1) mg/dl Total Bilirubin 0.3 (0.2-1) mg/dl AST 13 L (15-37) U/L ALT 17 (12-78) U/L Alkaline Phosphatase 85 (45-117) U/L Troponin I < 0.015 (0-0.045) ng/ml Total Protein 6.5 (6.4-8.2) gm/dl Albumin 2.6 L (3.4-5.0) gm/dl Globulin 3.9 (2.5-4.0) gm/dl Albumin/Globulin Ratio 0.7 L (0.9-2) Lipase 53 L (73-393) U/L COVID-19 Eval Order CovFluRsv at [facility] Administered Medications Discontinued Medications Fentanyl Citrate (Fentanyl Citrate 100 Mcg/2 Ml Vial) 25 mcg IV NOW STA Stop: 09/14/20 17:53 Last Admin: 09/14/20 18:12 Dose: 25 mcg Documented by: [id number] Nitroglycerin (Nitroglycerin Sl 0.4 Mg/Tab Tab) 0.4 mg SL UD ONE Stop: 09/14/20 16:33 Last Admin: 09/14/20 16:43 Dose: 0.4 mg Documented by: [id number] Ondansetron HCl (Ondansetron Inj 2 Mg/Ml 2 Ml Vial) 4 mg IV NOW STA Stop: 09/14/20 17:53 Last Admin: 09/14/20 18:16 Dose: 4 mg Documented by: [id number] Imaging Data Radiologist's Impression: Chest X-Ray 09/14/20 16:32 XR chest 1V portable HISTORY: Atypical Chest Pain COMPARISON: Chest and left rib series 02/29/2020. FINDINGS: Emphysema. The heart remains mildly enlarged. No new focal lung consolidations to suggest pneumonia. No evidence for pulmonary edema. No pleural effusions. No pneumothorax. The left shoulder prosthesis. IMPRESSION: No significant change compared to the prior study. No acute process. ACT 112: Negative or not required by law. Electronically signed by: Oscar Phillips M.D. 09/14/2020 5:06 PM Abdomen/Pelvis CT 09/14/20 17:[address] WITHOUT CONTRAST CT DOSE: 554.41 mGy.cm HISTORY: LUQ abd pain, L flank pain TECHNIQUE: Multiaxial CT images of the abdomen and pelvis were performed without contrast. A dose lowering technique was utilized adhering to the principles of ALARA. COMPARISON STUDY: Abdomen and pelvis CT 02/29/2020. FINDINGS: The lung bases are essentially clear. No suspicious lytic or blastic osseous lesions. Small hiatus hernia. 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 The unenhanced liver, spleen, adrenal glands, and pancreas are unremarkable. Mild right renal atrophy, unchanged. There is moderate bilateral cortical renal scarring/thinning. This is also unchanged. No renal or ureteral stones. No hydronephrosis. The bladder is unremarkable. The prostate gland remains mildly enlarged. There is mild infiltration surrounding the prostate gland, unchanged. Diffuse gallbladder wall thickening with mild adjacent inflammatory change. The common bile duct is mildly distended for age measuring up to 1.3 cm. This has progressed in the interval. These findings are suspicious for acute cholecystitis. There is a single mildly enlarged pericholecystic lymph node measuring 1.4 cm. This may be reactive. Normal caliber abdominal aorta containing moderate calcified plaque. No dilated loops of bowel to suggest an obstruction. Colonic diverticulosis. No evidence for acute diverticulitis. Of note, there is suboptimal evaluation for bowel pathology due to the lack of intravenous and oral contrast. Normal appendix. IMPRESSION: 1. Gallbladder wall thickening with mild adjacent inflammatory change. There is also a mildly distended common bile duct which has progressed. Findings are concerning for acute cholecystitis. Surgical consultation recommended. 2. No renal or ureteral stones. No hydronephrosis. 3. No evidence for bowel obstruction. 4. Normal appendix. 5. A single mildly enlarged pericholecystic lymph node measuring 1.4 cm. Survey be reactive. 6. Colonic diverticulosis. 7. No change in the mildly enlarged prostate gland with adjacent inflammatory change. This could represent a chronic prostatitis. ACT 112: Negative or not required by law. Electronically signed by: Oscar Phillips M.D. 09/14/2020 6:54 PM Discharge Plan Visit Data Chief Complaint: Chest Pain Stated Complaint: CHEST PAIN ED Provider: Tim Ratliff Discharge Problem: Substernal chest pain, Acute cholecystitis Forms Stand Alone Forms: [facility] [employer] Prescriptions Prescriptions: No Action triamcinolone acetonide 0.1 % cream 1 applic topical BID PRN (Reason: Itching) Qty: 454 RF: 0 Eliquis 2.5 mg tablet 2.5 mg PO BID RF: 0 sodium bicarbonate 650 mg tablet 650 mg PO BID Qty: 180 RF: 3 calcitriol 0.5 mcg capsule 0.5 mcg PO 3XWK Qty: 45 RF: 3 Men's Multivitamin 400-20-300 mcg Tablet 1 tab PO BID RF: 0 calcium carbonate-vitamin D3 [Calcium 500 + D] 500 mg(1,250mg) -200 unit tablet 1 tab PO BID RF: 0 vitamin B complex Tablet 1 tab PO QAM RF: 0 solifenacin [Vesicare] 10 mg tablet 10 mg PO QAM RF: 0 donepezil 10 mg tablet 10 mg PO HS RF: 0 sildenafil (pulm.hypertension) 20 mg tablet 20 mg PO UD PRN (Reason: Erectile Dysfunction) RF: 0 metoprolol tartrate 100 mg Tablet 50 mg PO BID RF: 0 omeprazole 40 mg Capsule,Delayed Release(Dr/Ec) 40 mg PO BID RF: 0 tramadol 50 mg tablet 50 mg PO BID PRN (Reason: Pain) RF: 0
[2020-09-14 20:25] LABS: Influenza A virus by PCR Negative (Neg); Influenza B virus by PCR Negative (Neg); RSV by PCR Negative (Neg); SARS CoV2 RNA(COVID-19) InHosp NEGATIVE (Negative)
[2020-09-14] MEDS ORDERED: ONDANSETRON INJ 2 MG/ML 2 ML VIAL IV PRN (21:03)
[2020-09-14] MEDS ORDERED: MoRPHine SULFATE 2 MG/ML CARP IV PRN (21:09)
--- NOTE | 2020-09-14 22:34 | Surgery Consultation ---
Date of Consultation September 14, 2020 Assessment & Plan (1) Acute cholecystitis: The patient has been admitted to the hospital by the medical service. I discussed the case with them at bedside. They do feel that the majority of the patient's symptomatology is secondary to his gallbladder however due to his cardiac history the plan on trending his cardiac enzymes and EKGs to ensure he is not suffering from acute coronary syndrome. The patient likely has acute cholecystitis he would benefit from cholecystectomy. I discussed with the medical service holding the patient's Eliquis and they said that they have placed this medication on hold. Ideally we would like to have the patient off his Eliquis for several days prior to proceeding with cholecystectomy. Would recommend providing analgesics and antiemetics. Dr. Atkinson will meet with patient tomorrow morning to discuss more de finitive timing of surgery. History of Present Illness Reason for Consultation: Abdominal pain History of Present Illness This is an 85-year-old male who presented to the [facility] emergency department secondary to epigastric abdominal pain that radiated into his chest and right shoulder. Patient reports that for the past several weeks he has been getting epigastric, right-sided abdominal pain, and some chest discomfort usually 20 to 30 minutes after eating a meal. He says that the pain usually subsides on its own however today shortly after eating breakfast at [employer] he developed severe pain. He notes the pain radiated from the epigastric area to the right upper quadrant into his chest and right shoulder. He had associated nausea vomiting and said he felt somewhat better after having significant amount of emesis. He denies any fevers, shakes, chills. He does not note any other provocative factors other than eating. The patient does note that he has had prior abdominal surgery which consisted of a gastric bypass. He notes that this was performed in an open fashion. The patient presented to the emergency department where he had imaging and labs which were independently reviewed by myself. The patient had a CBC where his white blood cell count was noted to be within normal range, his hemoglobin was noted to be 11.1, his hematocrit was 34.2, and his platelet count was noted to be within the normal range. Chemistry profile showed his sodium was 142 with a potassium of 5.3. BUN and creatinine were noted be 34 and 2.5. There is no significant elevation of his LFTs or lipase. Cardiac enzymes were noted to be negative and a Covid test was also noted to be negative. An EKG showed atrial fibrillation. A chest x-ray showed no evidence of pneumonia or congestive heart failure. Abdominal imaging consisted of a CT scan of the abdomen which showed a distended gallbladder and gallbladder wall thickening. Abdominal ultrasound showed gallstones with sludge in the gallbladder and a thickened gallbladder wall. At the time of my interview the patient was resting comfortably in bed and was not in any distress. Allergies Allergy/AdvReac Type Severity Reaction Status Date / Time No Known Allergies Allergy Verified 09/14/20 17:51 Home Medications Medication Instructions Recorded Confirmed Type metoprolol tartrate 50 mg PO BID 03/02/18 09/14/20 History omeprazole 40 mg PO BID 03/02/18 09/14/20 History Men's Multivitamin 1 tab PO BID 09/28/19 09/14/20 History calcium carbonate 500 mg (1,250 1 tab PO BID tab 12/18/19 09/14/20 History mg)-vitamin D3 200 unit tablet vitamin B complex 1 tab PO QAM tab 12/18/19 09/14/20 History solifenacin [Vesicare] 10 mg PO QAM 02/23/20 09/14/20 History calcitriol 0.5 mcg capsule 0.5 mcg PO 3XWK #45 cap 07/16/20 09/14/20 Rx sodium bicarbonate 650 mg tablet 650 mg PO BID #180 tab 07/16/20 09/14/20 Rx apixaban 2.5 mg tablet 2.5 mg PO BID 07/24/20 09/14/20 History triamcinolone acetonide 0.1 % 1 applic TOPICAL BID PRN #454 g 07/26/20 09/14/20 Rx topical cream donepezil 10 mg PO HS 07/29/20 09/14/20 History sildenafil (pulm.hypertension) 20 mg PO UD PRN 07/29/20 09/14/20 History tramadol 50 mg PO BID PRN 09/14/20 09/14/20 History Patient History Medical History Anemia Atrial fibrillation no cardioversion. treated with medication and follows with PCP. Chronic kidney disease variable creatinines with baseline ~1.6-2.1 Degenerative disc disease Diabetes mellitus, type 2 diet controlled Dysphagia "trouble keeping foods down" scheduled to 08/07/[address] Ean Shaffer. Fall walker and cane -- fall risk. History of bleeding ulcers History of BPH Hx of migraines Hx of sleep apnea no device Osteoarthritis Surgical History H/O gastric bypass 2004 H/O knee surgery "MULTIPLE KNEE SURGERIES"- R/L History of colonoscopy History of esophagogastroduodenoscopy (EGD) History of tooth extraction History of total knee replacement RT/LEFT History of total shoulder replacement LEFT Hx of circumcision Hx of transurethral resection of prostate Family History Sister Family history of diabetes mellitus Social History Smoking Status: Former smoker Tobacco Type: Cigarettes Second Hand Exposure: Yes (hx); Do You Dip or Chew Tobacco: No; Hx Alcohol Use: No Hx Substance Use: No Preferred Language: Hungarian Communication Ability: Effective Natural Gas Technician Required: No Beliefs That Will Affect Care: None marital status: Current Living Situation: Significant Other Current Living Situation Comment: Ex Other Information That Helps Us Care for You: No Feels Safe at Home: Yes Assistive Devices: Cane, Denture - Lower and Glasses Review of Systems Constitutional: no fever and no chills Eyes: no diplopia Ear, Nose, Mouth, Throat: no ear pain Respiratory: no cough and no dyspnea Cardiovascular: + chest pain Gastrointestinal: + abdominal pain, + nausea and + vomiting Genitourinary: no dysuria Musculoskeletal: no back pain Integumentary: no rash Neurologic: no localized weakness Physical Exam Constitutional: well developed and well nourished; no acute distress Eyes: + anicteric sclerae; no conjunctival abnormality ENMT: Ears: no hearing impairment Neck: trachea midline Respiratory: normal respiratory effort; no respiratory distress and no labored breathing Cardiovascular: Rate/Rhythm: regular rate and regular rhythm Gastrointestinal (Abdomen): Abdomen is soft and nondistended. Bowel sounds are present. Patient had pain with palpation in the epigastric area and also significant abdominal pain with palpation in the right upper quadrant with a positive Hanks sign. Musculoskeletal: No calf tenderness Skin: no rashes, warm and dry Neurologic: moves all extremities Psychiatric: A+Ox3, euthymic affect Results & Data ([facility]) Vital Signs (Past 12 Hours) Vital Signs Temp Pulse Resp BP Pulse Ox 09/14/20 20:43 87 18 117/69 95 09/14/20 18:45 79 17 102/71 97 09/14/20 18:15 82 17 107/81 98 09/14/20 18:00 68 20 109/76 98 09/14/20 17:45 77 16 113/78 97 09/14/20 17:30 76 20 107/60 97 09/14/20 17:16 80 17 96 09/14/20 17:15 79 16 96/70 L 97 09/14/20 17:01 69 15 96/61 L 96 09/14/20 16:54 83 16 110/57 L 97 09/14/20 16:46 73 20 96 09/14/20 16:45 66 21 110/57 L 97 09/14/20 16:41 67 17 101/66 97 09/14/20 16:15 70 16 96 09/14/20 16:11 76 12 98 09/14/20 16:09 36.5 C 66 18 123/77 97 PG Care Time/CCT Total # of Minutes Spent Total Time Spent with Patient: Total time spent is greater than 50% in coordination of care (as documented) at patient's floor/unit and/or counseling patient: Coding Level of Care Code 24743 Inpt Consult Level 5 Diagnoses Acute cholecystitis K81.0
--- NOTE | 2020-09-14 22:52 | History & Physical Report ---
Date of Service September 14, 2020 Assessment & Plan (1) Acute cholecystitis: Mr. Watson is an 85 yo gentleman with a PMHx of A-fib on anticoagulation who presented to the ED this evening for acute onset chest pain. While initial cardiac work-up was benign, he was found to have evidence of acute cholecystitis on imaging. - CT scan of A/P showing gallbladder wall thickening and common bile duct distention, concerning for acute cholecystitis - Gallbladder US obtained, read pending - WBC not elevated, patient is afebrile - patient given 1 dose Cefoxitin in ED. Will continue continue Cefoxitin 1g q12 hours (renal dosing) + Metronidazole 500mg, IV q8 - General surgery consulted - will keep NPO after midnight in the event of a possible procedure; continue IV fluids for hydration (2) Substernal chest pain: - trop undetectable on admission - EKG without ST segment changes - will trend serial trops - suspect etiology is related to acute cholecystitis rather than cardiac - Tylenol ordered prn for mild-moderate pain, morphine for severe (3) Chronic kidney disease: - History of underlying Stage 3B CKD - Cr at 2.56 on admission, baseline 1.9-2.2 - possible acute on chronic kidney injury - continue IVF - continue NaBicarb 650mg BID and calcitriol 0.5mcg 3X/week - recommend low salt diet when not NPO - avoid NSAIDs/ renal toxic meds - trend BMP (4) Atrial fibrillation: - rate normal on admission - continue home rate control agent metoprolol Tartrate 50mg BID - chronically anticoagulated on apixaban. Will hold apixaban in anticipation of cholecystectomy (5) Anemia: - Hgb 11.1 on admission, MCV 91. - normocytic anemia - patient did report hx of black stools (although he has been using Pepto-Bismal at home) - will Hemoccult all stools. If positive, consult consulting GI for possible colonoscopy - consider iron studies if hemoccult is neg - trend CBC (6) Hyperkalemia: - K level at 5.3 on admission - suspect secondary to underlying CKD - patient is not on an CHAPO/ARB - trend BMP FENGI: NPO after midnight, on IVF. Dispo: Med/Surg with tele DVT: on apixaban Code: Full, I confirmed with patient at bedside History of Present Illness Primary Care Provider: Spencer Baltazar MD Mr. Watson is an 85 yo gentleman with a PMHx of atrial fibrillation on anticoagulation with apixaban, who presented to the emergency department for evaluation of chest pain. He felt the discomfort over his left chest/upper abdomen at about 3:30 pm today. It came on him while he was sitting in his recliner watching television. He denies any radiation up to his jaw or down the left arm. There was no associated SOB. He did eat a meal for lunch ~ 1 hour prior to the onset of pain - it was spence soup. He denies any similar discomfort over the preceding days/weeks, even with physical activity. He has no history of coronary artery disease or cerebral vascular disease. He has been having some trouble with "regurgitation of food" for which he has an EGD 3 weeks ago - his reports the study came back entirely normal, but his symptoms have persisted. He also reports occasional black stools - today they have transitioned back to normal brown color. He is not on a home oral iron supplement. He has been using Pepto-Bismal. On arrival to the ED, he was afebrile, HR was 79, BP 102/91, O2 sat 97 on RA. His WBC was normal. He was negative for COVID 19. His hemoglobin was 11.1, MCV 91.4. His potassium was 5.3. His creatinine was 2.56, BUN at 34. Lipase not elevated. Troponin undetectable. EKG showing Afib without RVR. No ST segment changes. CXR showing no acute process. CT of abdomen/pelvis showing gallbladder wall thickening with mild adjacent inflammatory changes; mildly distended common bile duct. Gallbladder US ordered. Patient was given a a dose of Nitroglycerin and Fentanyl, after which his chest pain resolved. He was also given a dose of zofran and Cefoxitin. Allergies Allergy/AdvReac Type Severity Reaction Status Date / Time No Known Allergies Allergy Verified 09/14/20 17:51 Home Medications Medication Instructions Recorded Confirmed Type metoprolol tartrate 50 mg PO BID 03/02/18 09/14/20 History omeprazole 40 mg PO BID 03/02/18 09/14/20 History Men's Multivitamin 1 tab PO BID 09/28/19 09/14/20 History calcium carbonate 500 mg (1,250 1 tab PO BID tab 12/18/19 09/14/20 History mg)-vitamin D3 200 unit tablet vitamin B complex 1 tab PO QAM tab 12/18/19 09/14/20 History solifenacin [Vesicare] 10 mg PO QAM 02/23/20 09/14/20 History calcitriol 0.5 mcg capsule 0.5 mcg PO 3XWK #45 cap 07/16/20 09/14/20 Rx sodium bicarbonate 650 mg tablet 650 mg PO BID #180 tab 07/16/20 09/14/20 Rx apixaban 2.5 mg tablet 2.5 mg PO BID 07/24/20 09/14/20 History triamcinolone acetonide 0.1 % 1 applic TOPICAL BID PRN #454 g 07/26/20 09/14/20 Rx topical cream donepezil 10 mg PO HS 07/29/20 09/14/20 History sildenafil (pulm.hypertension) 20 mg PO UD PRN 07/29/20 09/14/20 History tramadol 50 mg PO BID PRN 09/14/20 09/14/20 History Past Med/Surg History Medical History Anemia Atrial fibrillation no cardioversion. treated with medication and follows with PCP. Chronic kidney disease variable creatinines with baseline ~1.6-2.1 Degenerative disc disease Diabetes mellitus, type 2 diet controlled Dysphagia "trouble keeping foods down" scheduled to 08/07/[address] Ean Shaffer. Fall walker and cane -- fall risk. History of bleeding ulcers History of BPH Hx of migraines Hx of sleep apnea no device Osteoarthritis Surgical History H/O gastric bypass 2004 H/O knee surgery "MULTIPLE KNEE SURGERIES"- R/L History of colonoscopy History of esophagogastroduodenoscopy (EGD) History of tooth extraction History of total knee replacement RT/LEFT History of total shoulder replacement LEFT Hx of circumcision Hx of transurethral resection of prostate Family History Sister Family history of diabetes mellitus Social History Smoking Status: Former smoker Tobacco Type: Cigarettes Second Hand Exposure: Yes (hx); Do You Dip or Chew Tobacco: No; Hx Alcohol Use: No Hx Substance Use: No Preferred Language: Cuban Communication Ability: Effective Accounting Reconciliation Clerk Required: No Beliefs That Will Affect Care: None marital status: Current Living Situation: Significant Other Current Living Situation Comment: Ex Other Information That Helps Us Care for You: No Feels Safe at Home: Yes Assistive Devices: Cane and Walker Review of Systems Review of Systems: All systems reviewed & are unremarkable except as noted in HPI & below Physical Exam Constitutional: WD/WN, vitals as above cooperative; no acute distress Eyes: PERRL, conjunctivae normal, anicteric sclerae ENMT: external ear and nose normal, oropharynx normal Neck: trachea midline, no thyromegaly Respiratory: normal respiratory effort, lungs clear to auscultation no cough Auscultation: no crackles and no wheezes Cardiovascular: Rate/Rhythm: + irregularly irregular Heart Sounds: normal S1 and normal S2; no murmur Extremities: no pedal edema Gastrointestinal (Abdomen): normal bowel sounds, soft, nontender, no hepatosplenomegaly Hanks's sign negative Skin: no rashes, warm and dry Psychiatric: A+Ox3, euthymic affect Results & Data Results & Data ([facility]) Vital Signs (Past 12 Hours) Vital Signs Temp Pulse Resp BP Pulse Ox 09/14/20 20:43 87 18 117/69 95 09/14/20 18:45 79 17 102/71 97 09/14/20 18:15 82 17 107/81 98 09/14/20 18:00 68 20 109/76 98 09/14/20 17:45 77 16 113/78 97 09/14/20 17:30 76 20 107/60 97 09/14/20 17:16 80 17 96 09/14/20 17:15 79 16 96/70 L 97 09/14/20 17:01 69 15 96/61 L 96 09/14/20 16:54 83 16 110/57 L 97 09/14/20 16:46 73 20 96 09/14/20 16:45 66 21 110/57 L 97 09/14/20 16:41 67 17 101/66 97 09/14/20 16:15 70 16 96 09/14/20 16:11 76 12 98 09/14/20 16:09 36.5 C 66 18 123/77 97 Supervising Physician Co-Signing Physician Notes Attending addendum: I have physically seen this patient, have supervised the medical residents activities, and agree with the H&P unless as otherwise noted. Assessment and Plan: Acute cholecystitis- CT abdomen pelvis with gallbladder wall thickening and CBD distention NPO Continue cefoxitin begun in the ED. Cefoxitin 1 g IV every 12 hours Metronidazole 500 mg IV every 8 hours Patient has been seen by general surgery in the ED Substernal chest pain/atrial fibrillation/hypertension- Likely secondary to gallbladder disease, but did have some improvement with 7 nitroglycerin, though admit to the telemetry and catheter cardiac work-up. Continue metoprolol tartrate 50 mg p.o. twice daily Hold apixaban due to potential procedure KENROY on CKD- Creatinine 2.56 upon admission with baseline 1.9-2.2 NSS at 100 mils per hour, and repeat laboratories in a.m. Remaining orders and notations as noted Resident Activity Tracking Resident Involvement: Resident Care Provided Care Provided: Adult Hospital Medicine (1) Chronic kidney disease Chronic kidney disease stage: unspecified stage Qualified Code(s): N18.9 - Chronic kidney disease, unspecified
[2020-09-15] MEDS: VESICARE~ORDER AWAITING ACTION SCH ×3 (00:02→15:02)
[2020-09-15] MEDS: SODIUM CHLORIDE 0.9% 1000ML 1,000 ML IV SCH ×2 (00:13→11:40)
[2020-09-15] MEDS: metroNIDAZOLE 500 MG/100 ML BAG IV SCH ×3 (02:41→18:42)
--- NOTE | 2020-09-15 05:45 | Surgery Progress Note ---
Date of Service September 15, 2020 Assessment & Plan (1) Acute cholecystitis: Patient has been admitted to the hospital by the medical service proceeding as follows: Antibiotics have been ordered in the form of ceftriaxone and Flagyl which we will continue IV fluids are in place for hydration measures Analgesics are available Antiemetics are available We will tentatively plan for cholecystectomy however the patient takes Eliquis as an outpatient. His most recent dose of Eliquis according to his was on 09/14/2020. This medication has been placed on hold. We would like him to be off this medication for a few days prior to proceeding with surgery Admission and Anticipated Discharge Date Admission Date: September 14, 2020 Supervising Physician Co-Signing Physician Notes Patient resting comfortably in bed without any complaints his abdomen is completely benign We will plan to do laparoscopic cholecystectomy cholangiogram on Wednesday last dose of Eliquis was yesterday All questions were answered Subjective Patient notes that since admission he has not had any worsening abdominal pain. He denies any nausea or vomiting. He denies any fevers, shakes, chills. Physical Exam Gastrointestinal (Abdomen): Abdomen is soft and nondistended. Bowel sounds are present. Patient did have a small amount of pain in the right upper quadrant with palpation but this is markedly improved since my exam in the emergency department last evening. Results & Data ([facility]) Vital Signs (Past 12 Hours) Vital Signs Temp Pulse Pulse Resp BP BP Pulse Ox 09/15/20 05:35 96 H 09/15/20 04:00 37 C 96 H 17 116/77 98 09/14/20 23:49 36.6 C 96 H 18 129/79 96 09/14/20 23:00 77 17 09/14/20 22:45 84 17 96/52 L 94 09/14/20 22:31 92 H 15 97/66 L 95 09/14/20 22:30 86 20 97 09/14/20 22:16 85 17 122/70 95 09/14/20 22:01 90 18 97 09/14/20 22:00 88 12 113/72 98 09/14/20 21:45 84 16 112/71 95 09/14/20 21:31 83 18 96 09/14/20 21:30 89 16 135/75 97 09/14/20 21:15 77 8 L 119/74 09/14/20 21:00 86 15 122/81 04/10/21 20:45 79 19 106/79 09/14/20 20:43 87 18 117/69 95 09/14/20 20:42 86 14 117/69 96 09/14/20 19:46 85 16 99/72 L 98 09/14/20 19:30 79 13 118/93 99 09/14/20 19:15 113/84 99 09/14/20 18:45 79 17 102/71 97 09/14/20 18:15 82 17 107/81 98 09/14/20 18:00 68 20 109/76 98 09/14/20 17:45 77 16 113/78 97 PG Care Time/CCT Total # of Minutes Spent Total Time Spent with Patient: Total time spent is greater than 50% in coordination of care (as documented) at patient's floor/unit and/or counseling patient: Coding Level of Care Code 85047 Subseq Hosp Care Lvl 1 Diagnoses Acute cholecystitis K81.0
--- NOTE | 2020-09-15 07:07 | Hospitalist Progress Note ---
Date of Service September 15, 2020 Assessment & Plan (1) Acute cholecystitis: 85yo male with afib (on eliquis) who presented to the ED with acute onset chest pain. Initial ACS workup negative; found to have evidence of acute cholecystitis on imaging. Surgery following. Acute cholecystitis -CT scan of A/P showing gallbladder wall thickening and common bile duct distention - concerning for acute cholecystitis -gallbladder US read pending -afebrile, no leukocytosis, lipase not elevated -continue cefoxitin IV (renal dosing), continue metronidazole IV -continue NSS @ 75mL/hr -general surgery following - tentative plan for cholecystectomy, ideally a few days after most recent eliquis dose (last dose 09/14 per patient's ) -NPO at midnight pending general surgery's morning assessment Chest pain -likely secondary to acute cholecystitis -initial and repeat troponins negative, EKG without signs of ischemia -pain did improve with nitroglycerin, though this was administered at the same time as fentanyl -continue to monitor Atrial fibrillation -rate controlled on admission -holding home eliquis -continue telemetry; patient has had RVR on previous admissions -continue home metoprolol tartrate 50mg PO bid CKD3b, resolved KENROY -creatinine elevated to 2.56 on admission (baseline 1.8-2.0), possibly secondary to dehydration - improved with IVF, today at 2.11 -continue IVF as above -daily BMP Anemia -normocytic, chronic, stable DM2 -fairly well-controlled, A1c on admission 6.3 -SSI while inpatient -when not NPO, resume T2DM diet Dementia -continue home donepezil 5mg PO qd GERD -pantoprazole 40mg bid (substituted for patients home omeprazole) BPH -formulary does not have solifenacin - spoke to inpatient pharmacy, best option would be for patient to use home solifenacin rather than substituting -spoke to patient's on 09/15 - she plans to bring in patient's solifenacin this evening; continue solifenacin 10mg qAM FENGI: T2DM diet, NPO at midnight, NSS @ 75mL/hr CODE STATUS: full code ISOLATION: none HELD HOME MEDS: eliquis, tramadol, solifenacin, sildenafil, omeprazole CONSULTS: general surgery DISPO: med/surg tele (2) Substernal chest pain: (3) Chronic kidney disease: (4) Atrial fibrillation: (5) Anemia: (6) Hyperkalemia: Admission and Anticipated Discharge Date Admission Date: September 14, 2020 Supervising Physician Co-Signing Physician Notes Resident Physician Supervision Note: I independently interviewed and examined the patient and verified the medina history and physical, reviewed labs and image studies, discussed the case with the resident Dr. Linares and agree with the findings and care plan. Subjective Patient feels well this morning, no acute complaints. Chest pain has greatly improved since last night. Reports minimal abdominal pain at the moment. Denies SOB, nausea, vomiting, fever, chills, lightheadedness, or other complaints. Hungry due to being NPO. Review of Systems Review of Systems: See HPI Physical Exam Physical Exam: Well-appearing elderly man laying in bed, no acute distress, pleasant, interactive, cooperative NCAT, MMM CV: irregularly irregular rhythm, rate 70-80s, no murmur appreciated Resp: CTABL Abd: soft, nondistended, minimally tender in RUQ, mild/moderate tenderness of epigastrium and LUQ, mild tenderness of LLQ, RLQ nontender, BS present, no guarding Ext: no peripheral edema, calves nontender, healing surgical scar present on left wrist (recent carpal tunnel surgery) Neuro: no focal deficits appreciated Results & Data Results & Data ([facility]) Vital Signs (Past 12 Hours) Vital Signs Temp Pulse Pulse Resp BP BP Pulse Ox 09/15/20 05:35 96 H 09/15/20 04:00 37 C 96 H 17 116/77 98 09/14/20 23:49 36.6 C 96 H 18 129/79 96 09/14/20 23:00 77 17 09/14/20 22:45 84 17 96/52 L 94 09/14/20 22:31 92 H 15 97/66 L 95 09/14/20 22:30 86 20 97 09/14/20 22:16 85 17 122/70 95 09/14/20 22:01 90 18 97 09/14/20 22:00 88 12 113/72 98 09/14/20 21:45 84 16 112/71 95 09/14/20 21:31 83 18 96 09/14/20 21:30 89 16 135/75 97 09/14/20 21:15 77 8 L 119/74 09/14/20 21:00 86 15 122/81 09/14/20 20:45 79 19 106/79 09/14/20 20:43 87 18 117/69 95 09/14/20 20:42 86 14 117/69 96 09/14/20 19:46 85 16 99/72 L 98 09/14/20 19:30 79 13 118/93 99 09/14/20 19:15 113/84 99 Resident Activity Tracking Resident Involvement: Resident Care Provided Care Provided: Adult Hospital Medicine (1) Chronic kidney disease Chronic kidney disease stage: unspecified stage Qualified Code(s): N18.9 - Chronic kidney disease, unspecified
--- NOTE | 2020-09-15 08:00 | Ultrasound Report ---
ABDOMINAL ULTRASOUND, RIGHT UPPER QUADRANT HISTORY: Abnormal gallbladder on CT. Right upper quadrant pain.. COMPARISON: Abdomen and pelvis CT 09/14/2020. FINDINGS: Pancreas: Obscured by overlying bowel gas. Liver: The liver is echogenic consistent with fatty change. Gallbladder: There is a 9 mm stone in a small amount of sludge within the gallbladder. The gallbladde r wall is thickened up to or millimeters. The technologist reported a negative sonographic Hanks sig n. CBD: Upper limits of normal for age measuring 8 mm. Right kidney: No hydronephrosis. IMPRESSION: 1. The gallbladder is distended and demonstrates a thickened wall. There is a small gallstone and gal lbladder sludge. However, the technologist reported a negative sonographic Hanks sign. Therefore, th ginger findings are indeterminate for acute cholecystitis. Clinical correlation recommended. 2. The common bile duct is at the upper limits of normal for age. ACT 112: Negative or not required by law. Electronically signed by: Oscar Phillips M.D. 09/15/2020 7:58 AM
[2020-09-15 08:59] LABS: Basophils # (auto) 0.02 K/uL (0-0.2); Basophils % (auto) 0.3 %; Eosinophils # (auto) 0.18 K/uL (0-0.5); Eosinophils % (auto) 3.1 %; Hematocrit (blood only) 32.9 % (42-52); Hemoglobin 10.5 g/dL (14.0-18.0); Immature Granulocytes # (auto) 0.01 K/uL (0.00-0.02); Immature Granulocytes % (auto) 0.2 %; Lymphocytes # (auto) 0.91 K/uL (1.2-3.4); Lymphocytes % (auto) 15.5 %; Mean Corpuscular Hemoglobin 29.2 pg (25-34); Mean Corpuscular Hgb Conc 31.9 g/dL (32-36); Mean Corpuscular Volume 91.4 fL (80-100); Mean Platelet Volume 9.8 fL (7.4-10.4); Monocytes # (auto) 0.63 K/uL (0.11-0.59); Monocytes % (auto) 10.8 %; Neutrophils # (auto) 4.11 K/uL (1.4-6.5); Neutrophils % (auto) 70.1 %; Platelet Count 238 K/uL (130-400); RDW Coefficient of Variation 16.6 % (11.5-14.5); RDW Standard Deviation 55.9 fL (36.4-46.3); White Blood Count 5.86 K/uL (4.8-10.8)
[2020-09-15] MEDS: ACETAMINOPHEN 1,000 MG/100 ML VIAL IV PRN (09:12)
[2020-09-15] MEDS: METOPROLOL TARTRATE 50 MG TAB PO SCH ×2 (09:13→21:18)
[2020-09-15] MEDS: SODIUM BICARBONATE 650 MG TAB PO SCH ×2 (09:13→21:17)
[2020-09-15 09:19] LABS: Calcium 8.3 mg/dl (8.5-10.1); Creatinine Clr Calc Pharmacy 26.9 ml/min; Est GFR (African American) 32.3; Est GFR (Non-African American) 27.9; Potassium 4.9 mmol/L (3.5-5.1)
--- NOTE | 2020-09-15 20:01 | Billing Data ---
Date of Service September 15, 2020 Coding Level of Care Code 21231 Initial Inpt Care Lvl 3
[2020-09-15] MEDS: DONEPEZIL HCL 10 MG TAB PO SCH (21:21)
[2020-09-15] MEDS: PANTOprazole 40 MG TAB PO SCH (21:21)
[2020-09-16] MEDS: VESICARE~ORDER AWAITING ACTION SCH ×3 (00:15→17:56)
[2020-09-16] MEDS: SODIUM CHLORIDE 0.9% 1000ML 1,000 ML IV SCH ×2 (00:27→13:32)
[2020-09-16] MEDS: metroNIDAZOLE 500 MG/100 ML BAG IV SCH ×3 (03:11→18:56)
--- NOTE | 2020-09-16 06:27 | Electrocardiogram Report ---
Test Reason : Blood Pressure : / mmHG Vent. Rate : 074 BPM Atrial Rate : 081 BPM P-R Int : 000 ms QRS Dur : 080 ms QT Int : 382 ms P-R-T Axes : 000 000 039 degrees QTc Int : 424 ms Poor data quality, interpretation may be adversely affected Atrial fibrillation with premature ventricular or aberrantly conducted complexes Abnormal ECG When compared with ECG of 29-FEB-2020 18:06, Vent. rate has decreased BY 40 BPM Nonspecific T wave abnormality no longer evident in Inferior leads Confirmed by Hardeep Hernandez ([id number]) on 09/16/2020 6:26:51 AM Referred By: REFERRED SELF Confirmed By:Hardeep Hernandez
[2020-09-16 07:20] LABS: Basophils # (auto) 0.02 K/uL (0-0.2); Basophils % (auto) 0.4 %; Eosinophils # (auto) 0.22 K/uL (0-0.5); Eosinophils % (auto) 4.5 %; Hematocrit (blood only) 31.9 % (42-52); Hemoglobin 10.4 g/dL (14.0-18.0); Immature Granulocytes # (auto) 0.01 K/uL (0.00-0.02); Immature Granulocytes % (auto) 0.2 %; Lymphocytes # (auto) 1.12 K/uL (1.2-3.4); Lymphocytes % (auto) 22.7 %; Mean Corpuscular Hemoglobin 29.7 pg (25-34); Mean Corpuscular Hgb Conc 32.6 g/dL (32-36); Mean Corpuscular Volume 91.1 fL (80-100); Mean Platelet Volume 9.8 fL (7.4-10.4); Monocytes # (auto) 0.53 K/uL (0.11-0.59); Monocytes % (auto) 10.8 %; Neutrophils # (auto) 3.03 K/uL (1.4-6.5); Neutrophils % (auto) 61.4 %; Platelet Count 228 K/uL (130-400); RDW Coefficient of Variation 16.5 % (11.5-14.5); RDW Standard Deviation 54.7 fL (36.4-46.3); White Blood Count 4.93 K/uL (4.8-10.8)
[2020-09-16] MEDS ORDERED: MICONAZOLE NITRATE POWDER 43 GM EXT PRN (07:51)
[2020-09-16 08:01] LABS: Albumin Level 2.2 gm/dl (3.4-5.0); BUN Creatinine Ratio 10.2 (10-20); Calcium 8.3 mg/dl (8.5-10.1); Creatinine Clr Calc Pharmacy 28.1 ml/min; Est GFR (African American) 34.1; Est GFR (Non-African American) 29.4
[2020-09-16 08:04] LABS: Albumin Globulin Ratio 0.6 (0.9-2); Bilirubin,Total 0.5 mg/dl (0.2-1); Globulin 3.5 gm/dl (2.5-4.0); Total Protein 5.7 gm/dl (6.4-8.2)
--- NOTE | 2020-09-16 08:57 | Surgery Progress Note ---
Date of Service September 16, 2020 Assessment & Plan (1) Acute cholecystitis: WBC normal holding apixaban for lap fabián Admission and Anticipated Discharge Date Admission Date: September 14, 2020 Subjective tolerating diet, no pain or nausea Physical Exam Gastrointestinal (Abdomen): Percussion/Palpation: abdomen soft; abdomen nontender Results & Data ([facility]) Vital Signs (Past 12 Hours) Vital Signs Temp Pulse Resp BP Pulse Ox 09/16/20 07:14 36.5 C 73 18 113/67 97 09/16/20 04:00 36.9 C 74 18 105/66 98 09/15/20 23:51 36.8 C 76 18 115/68 97 PG Care Time/CCT Total # of Minutes Spent Total Time Spent with Patient: Total time spent is greater than 50% in coordi nation of care (as documented) at patient's floor/unit and/or counseling patient: Coding Level of Care Code 80114 Subseq Hosp Care Lvl 1 Diagnoses Acute cholecystitis K81.0
--- NOTE | 2020-09-16 10:47 | Hospitalist Progress Note ---
Date of Service September 16, 2020 Assessment & Plan (1) Acute cholecystitis: 85yo male with afib (on eliquis) who presented to the ED with acute onset chest pain. Initial ACS workup negative; found to have evidence of acute cholecystitis on imaging. Surgery following. Acute cholecystitis -CT scan of A/P showing gallbladder wall thickening and common bile duct distention - concerning for acute cholecystitis -continue cefoxitin IV (renal dosing), continue metronidazole IV -continue NSS @ 75mL/hr -general surgery following - plan for cholecystectomy on 09/17 (will be >48 hours since last dose of Eliquis) Chest pain, resolved -likely secondary to acute cholecystitis -initial and repeat troponins negative, EKG without signs of ischemia -pain did improve with nitroglycerin, though this was administered at the same time as fentanyl -continue to monitor Atrial fibrillation -rate controlled on admission -holding home eliquis for surgery -continue telemetry; patient has had RVR on previous admissions -continue home metoprolol tartrate 50mg PO bid CKD3b, resolved KENROY -creatinine elevated to 2.56 on admission (baseline 1.8-2.0), suspect secondary to dehydration - improved with IVFs, today at 2.02 -continue IVFs as above -daily BMP Anemia -normocytic, chronic, stable DM2 -fairly well-controlled, A1c on admission 6.3 -SSI while inpatient Dementia -continue home donepezil 5mg PO qd GERD -pantoprazole 40mg bid (substituted for patients home omeprazole) BPH - formulary does not have solifenacin - spoke to inpatient pharmacy, best option would be for patient to use home solifenacin rather than substituting FENGI: T2DM diet, NPO at midnight, NSS @ 75mL/hr CODE STATUS: full code CONSULTS: general surgery DISPO: med/surg tele, margy fabián tomorrow Admission and Anticipated Discharge Date Admission Date: September 14, 2020 Supervising Physician Co-Signing Physician Notes I personally examined the patient and verified all medina points of history and exam, discussed case, and agree with decision making with Dr Whitney. Feeling okay. Eating okay. For cholecystectomy tomorrow Vitals noted, in general he is awake and alert pleasant no distress. HEENT normocephalic atraumatic mucous membranes moist. Breathing unlabored no accessory muscle use good effort. Skin shows no rashes no pallor or icterus. Neuro shows no focal deficits. Cholecystitischolecystectomy tomorrow. Otherwise as above. Holding Eliquis, resume after surgery as soon as is safe. Subjective No acute events overnight. Reports that initial chest pain/RUQ abdominal pain has completely resolved since being hospitalized and starting abx. Denies fever/chills, shortness of breath, N/V, abdominal pain. Review of Systems Review of Systems: Pertinent positives and negatives mentioned in HPI. Physical Exam Physical Exam: General: A&Ox3. NAD. Cooperative. HEENT: Atraumatic, normocephalic. Pulm: CTAB A&P. -wheezes, -rales, -rhonchi. Symmetrical chest rise. No increase work of breathing. No respiratory distress. Cardiac: irregularly irregular rhythm, -mrg. Radial pulses intact and symmetrical. Abdominal: soft, non-tender, non-distended, BS x 4 Skin: warm, dry Results & Data Results & Data ([facility]) Vital Signs (Past 12 Hours) Vital Signs Temp Pulse Pulse Resp BP Pulse Ox 09/16/20 08:00 81 09/16/20 07:14 36.5 C 73 18 113/67 97 09/16/20 04:00 36.9 C 74 18 105/66 98 09/15/20 23:51 36.8 C 76 18 115/68 97 Resident Activity Tracking Resident Involvement: Resident Care Provided Care Provided: Adult Hospital Medicine
[2020-09-16] MEDS: CALCITRIOL 0.25 MCG CAPSULE PO SCH (11:33)
[2020-09-16] MEDS: METOPROLOL TARTRATE 50 MG TAB PO SCH ×2 (11:33→20:12)
[2020-09-16] MEDS: SOLIFENACIN SUCCINATE 10 MG PO SCH (11:34)
[2020-09-16] MEDS: SODIUM BICARBONATE 650 MG TAB PO SCH ×2 (11:34→20:13)
[2020-09-16] MEDS: PANTOprazole 40 MG TAB PO SCH ×2 (13:31→20:13)
[2020-09-16] MEDS ORDERED: MELATONIN 3 MG TAB PO PRN (18:06)
--- NOTE | 2020-09-16 18:49 | Billing Data ---
Date of Service September 16, 2020 Coding Level of Care Code 80007 Subseq Hosp Care Lvl 2
[2020-09-16] MEDS: ACETAMINOPHEN 1,000 MG/100 ML VIAL IV PRN (19:46)
[2020-09-16] MEDS: DONEPEZIL HCL 10 MG TAB PO SCH (20:12)
[2020-09-17] MEDS: VESICARE~ORDER AWAITING ACTION SCH ×3 (00:16→15:40)
[2020-09-17] MEDS: metroNIDAZOLE 500 MG/100 ML BAG IV SCH ×3 (02:13→17:33)
[2020-09-17] MEDS: SODIUM CHLORIDE 0.9% 1000ML 1,000 ML IV SCH ×2 (02:16→15:49)
[2020-09-17 05:41] LABS: Basophils # (auto) 0.02 K/uL (0-0.2); Basophils % (auto) 0.4 %; Eosinophils # (auto) 0.21 K/uL (0-0.5); Eosinophils % (auto) 4.6 %; Hematocrit (blood only) 29.9 % (42-52); Hemoglobin 9.7 g/dL (14.0-18.0); Immature Granulocytes # (auto) 0.01 K/uL (0.00-0.02); Immature Granulocytes % (auto) 0.2 %; Lymphocytes # (auto) 1.31 K/uL (1.2-3.4); Lymphocytes % (auto) 28.9 %; Mean Corpuscular Hemoglobin 29.5 pg (25-34); Mean Corpuscular Hgb Conc 32.4 g/dL (32-36); Mean Corpuscular Volume 90.9 fL (80-100); Mean Platelet Volume 9.6 fL (7.4-10.4); Monocytes # (auto) 0.47 K/uL (0.11-0.59); Monocytes % (auto) 10.4 %; Neutrophils # (auto) 2.52 K/uL (1.4-6.5); Neutrophils % (auto) 55.5 %; Platelet Count 201 K/uL (130-400); RDW Coefficient of Variation 16.4 % (11.5-14.5); RDW Standard Deviation 54.7 fL (36.4-46.3); Red Blood Count 3.29 M/uL (4.7-6.1); White Blood Count 4.54 K/uL (4.8-10.8)
[2020-09-17 06:12] LABS: Calcium 7.4 mg/dl (8.5-10.1); Creatinine Clr Calc Pharmacy 30.2 ml/min; Est GFR (African American) 37.2; Est GFR (Non-African American) 32.1; Potassium 4.4 mmol/L (3.5-5.1)
[2020-09-17 06:14] LABS: Albumin Globulin Ratio 0.6 (0.9-2); Bilirubin,Total 0.4 mg/dl (0.2-1); Globulin 3.3 gm/dl (2.5-4.0); Total Protein 5.3 gm/dl (6.4-8.2)
--- NOTE | 2020-09-17 06:40 | Hospitalist Progress Note ---
Date of Service September 17, 2020 Assessment & Plan (1) Acute cholecystitis: 85yo male with afib (on eliquis) who presented to [facility] ED on 09/14/2020 with acute onset chest pain. Initial ACS workup negative; found to have evidence of acute cholecystitis on imaging. Laparoscopic cholecystectomy on 09/17. Acute cholecystitis -CT scan of A/P showing gallbladder wall thickening and common bile duct distention - concerning for acute cholecystitis - s/p laparoscopic cholecystectomy on 09/17 -continue cefoxitin IV (renal dosing), continue metronidazole IV -continue NSS @ 75mL/hr -general surgery following Atrial fibrillation -holding home eliquis for surgery, plan to re-start tomorrow -continue home metoprolol tartrate 50mg PO bid Chest pain, resolved -likely secondary to acute cholecystitis -initial and repeat troponins negative, EKG without signs of ischemia CKD3b, resolved KENROY -creatinine elevated to 2.56 on admission (baseline 1.8-2.0), suspect secondary to dehydration - improved with IVFs, today at 1.88 -continue IVFs as above -daily BMP Anemia -normocytic, chronic, stable DM2 -fairly well-controlled, A1c on admission 6.3 -SSI while inpatient Dementia -continue home donepezil 5mg PO qd GERD -pantoprazole 40mg bid (substituted for patients home omeprazole) BPH - continue home solifenacin FENGI: T2DM diet, NSS @ 75mL/hr CODE STATUS: full code CONSULTS: general surgery DISPO: med/surg with tele Admission and Anticipated Discharge Date Admission Date: September 14, 2020 Supervising Physician Co-Signing Physician Notes I personally examined the patient and verified all medina points of history and exam, discussed case, and agree with decision making with Dr brock. Seen postop, a little groggy and confused. No pain. Vitals noted, in general he is awake and alert pleasant no distress. HEENT normocephalic atraumatic mucous membranes moist. Breathing unlabored no accessory muscle use good effort. Skin shows no rashes no pallor or icterus. Neuro shows no focal deficits. Abdomen soft without guarding/rebound. Cholecystitisappearing stable post cholecystectomy Otherwise as above. Holding Eliquis, resume after surgery as soon as is safe (hopefully either tonight or tomorrow). Subjective No acute events overnight. Reports that initial chest pain/RUQ abdominal pain has resolved since being hospitalized and starting abx. Denies fever/chills, shortness of breath, N/V, abdominal pain. NPO since midnight for upcoming cholecystectomy today. Review of Systems Review of Systems: Pertinent positives and negatives mentioned in HPI. Physical Exam Physical Exam: General: A&Ox3. NAD. Cooperative. HEENT: Atraumatic, normocephalic. Pulm: CTAB A&P. -wheezes, -rales, -rhonchi. Symmetrical chest rise. No increase work of breathing. No respiratory distress. Cardiac: irregularly irregular rhythm, -mrg. Radial pulses intact and symmetrical. Abdominal: soft, non-tender, non-distended, BS x 4 Skin: warm, dry Results & Data Results & Data ([facility]) Vital Signs (Past 12 Hours) Vital Signs Temp Pulse Pulse Resp BP BP Pulse Ox 09/17/20 03:25 36.4 C L 83 18 160/77 H 96 09/16/20 22:20 67 09/16/20 22:05 36.6 C 70 18 109/71 96 09/16/20 20:10 73 112/69 97 09/16/20 18:54 36.9 C 81 16 104/69 92 Resident Activity Tracking Resident Involvement: Resident Care Provided Care Provided: Adult Hospital Medicine
[2020-09-17] MEDS: METOPROLOL TARTRATE 50 MG TAB PO SCH ×2 (09:40→20:55)
[2020-09-17] MEDS: SODIUM BICARBONATE 650 MG TAB PO SCH ×2 (09:40→20:55)
[2020-09-17] MEDS: SOLIFENACIN SUCCINATE 10 MG PO SCH (09:40)
[2020-09-17] MEDS: PANTOprazole 40 MG TAB PO SCH ×2 (09:40→20:55)
[2020-09-17] MEDS ORDERED: fentaNYL citrate 100 MCG/2 ML VIAL ONE ×3 (11:47→13:59)
[2020-09-17] MEDS ORDERED: LIDOCAINE/EPINEPHRINE 1% 20 ML VIAL ONE (11:48)
--- NOTE | 2020-09-17 12:04 | History & Physical Bridge Note ---
Date of Service September 17, 2020 History & Physical Bridge Note I have examined the patient, reviewed the History & Physical and in the interval since the performance of the History & Physical I have noted the following changes of clinical significance: no changes noted No change since yesterday no abdominal complaints we will proceed with laparoscopic cholecystectomy cholangiogram possible open patient had previous gastric bypass another procedure like panniculectomy risk and complication of procedure were explained to him and he would like to proceed accordingly permit was signed today
[2020-09-17] MEDS ORDERED: PROPOFOL IV EMULSION 10 MG/ML 20 ML VIAL IV ONE (12:10)
[2020-09-17] MEDS ORDERED: LIDOCAINE HCL 2% 2 ML VIAL/AMP(20MG/ML) INFIL ONE (12:10)
--- NOTE | 2020-09-17 12:16 | Anesthesiology Consultation ---
Date of Service September 17, 2020 Assessment & Plan Chart Review Chart Review: Acceptable Risk for Surgery and Patient NOT seen in Pre Admission Testing Consults Requested none ASA ASA4 Proposed Anesthesia Anesthesia Type: General Risk / Benefits Reviewed With: PT / POA / Parent / Guardian, Accepts Plan and Informed Consent Obtained Additional Comments: covid test negative History Surgery Operation Date: 09/17/20 11:55 Proposed Procedures p Laparoscopic Cholecystectomy with Cholangiogram - Dwight Atkinson MD, FACS Height/Weight Height: 5 ft 10 in Weight: 86.6 kg Allergies Allergy/AdvReac Type Severity Reaction Status Date / Time No Known Allergies Allergy Verified 09/14/20 17:51 Medications Home Medications Medication Instructions Recorded Confirmed Last Taken metoprolol tartrate 50 mg PO BID 03/02/18 09/14/20 08/22/20 05:30 omeprazole 40 mg PO BID 03/02/18 09/14/20 08/21/20 Men's Multivitamin 1 tab PO BID 09/28/19 09/14/20 08/21/20 calcium carbonate 500 mg (1,250 1 tab PO BID tab 12/18/19 09/14/20 08/21/20 mg)-vitamin D3 200 unit tablet vitamin B complex 1 tab PO QAM tab 12/18/19 09/14/20 08/21/20 solifenacin [Vesicare] 10 mg PO QAM 02/23/20 09/14/20 08/21/20 calcitriol 0.5 mcg capsule 0.5 mcg PO 3XWK #45 cap 07/16/20 09/14/20 08/21/20 sodium bicarbonate 650 mg tablet 650 mg PO BID #180 tab 07/16/20 09/14/20 08/21/20 apixaban 2.5 mg tablet 2.5 mg PO BID 07/24/20 09/14/20 08/21/20 triamcinolone acetonide 0.1 % 1 applic TOPICAL BID PRN #454 g 07/26/20 09/14/20 08/21/20 topical cream donepezil 10 mg PO HS 07/29/20 09/14/20 08/21/20 sildenafil (pulm.hypertension) 20 mg PO UD PRN 07/29/20 09/14/20 Unknown tramadol 50 mg PO BID PRN 09/14/20 09/14/20 Unknown Active Medications Generic Name Dose Route Start Last Admin Trade Name Freq PRN Reason Stop Dose Admin Calcitriol 0.5 mcg 09/16/20 09:00 09/16/20 11:33 Calcitriol 0.25 Mcg Capsule PO 10/16/20 08:59 0.5 mcg MoWeFr SHY Administration Donepezil HCl 10 mg 09/15/20 21:00 09/16/20 20:12 Donepezil Hcl 10 Mg Tab PO 10/15/20 20:59 10 mg HS SHY Administration Sodium Chloride 1,000 mls @ 75 mls/hr 09/14/20 21:15 09/17/20 02:16 Nss 1000ml IV 10/14/20 21:14 75 mls/hr .[id number] SHY Administration Acetaminophen 1,000 mg in 100 mls @ 400 mls/hr 09/14/20 21:09 09/16/20 20:08 Ofirmev IV 09/17/20 21:08 Infused Q8H PRN Infusion Pain Cefoxitin Sodium 1,000 mg/ 60 mls @ 100 mls/hr 09/15/20 18:00 09/17/20 06:14 Dextrose IV 09/25/20 17:59 Infused Q12H SHY Infusion Metronidazole 500 mg in 100 mls @ 100 mls/hr 09/15/20 02:00 09/17/20 11:11 Flagyl IV 09/25/20 01:59 100 mls/hr Q8H SHY Administration Metoprolol Tartrate 50 mg 09/15/20 09:00 09/17/20 09:40 Metoprolol Tartrate 50 Mg Tab PO 10/15/20 08:59 Not Given BID SHY Miconazole Nitrate 1 appln 09/16/20 07:51 09/16/20 11:35 Miconazole Nitrate Powder 43 Gm EXT 10/16/20 07:50 1 appln PRN PRN Administration Affected Skin Folds Miscellaneous 1 ea 09/15/20 00:00 09/17/20 09:40 Vesicare~Order Awaiting Action N/A 10/15/20 00:00 Not Given QS SHY Morphine Sulfate 1 mg 09/14/20 21:09 09/15/20 14:54 Morphine Sulfate 2 Mg/Ml Carp IV 09/28/20 21:08 1 mg Q1H PRN Administration Pain Pantoprazole Sodium 40 mg 09/15/20 21:00 09/17/20 09:40 Pantoprazole 40 Mg Tab PO 10/15/20 20:59 Not Given BID SHY Sodium Bicarbonate 650 mg 09/15/20 09:00 09/17/20 09:40 Sodium Bicarbonate 650 Mg Tab PO 10/15/20 08:59 Not Given BID SHY Solifenacin 1 ea 09/16/20 09:00 09/17/20 09:40 Solifenacin Succinate 10 Mg Tab PO 10/16/20 08:59 Not Given DAILY SHY NPO Date Last Intake of Fluids: 09/16/20 Time Last Intake of Fluids: 17:00 Date Last Intake of Solids: 09/16/20 Time Last Intake of Solids: 17:00 Past Medical History Medical History Anemia Atrial fibrillation no cardioversion. treated with medication and follows with PCP. Chronic kidney disease variable creatinines with baseline ~1.6-2.1 Degenerative disc disease Diabetes mellitus, type 2 diet controlled Dysphagia "trouble keeping foods down" scheduled to 08/07/[address] Ean Shaffer. Fall walker and cane -- fall risk. History of bleeding ulcers History of BPH Hx of migraines Hx of sleep apnea no device Osteoarthritis Exercise / Class Metabolic Activity III < 4 Walking/Shop/Light housework Past Family History Family History Sister Family history of diabetes mellitus Past Surgical History Surgical History H/O gastric bypass 2004 H/O knee surgery "MULTIPLE KNEE SURGERIES"- R/L History of colonoscopy History of esophagogastroduodenoscopy (EGD) History of tooth extraction History of total knee replacement RT/LEFT History of total shoulder replacement LEFT Hx of circumcision Hx of transurethral resection of prostate Past Anesthesia History No Hx of Anesthesia Complications and No Family Hx of Anesthesia Complications History of PONV No Hx of PONV and No Hx of Motion Sickness Social History Smoking Status: Former smoker tobacco type: cigarettes Do You Dip or Chew Tobacco: No Hx Alcohol Use: No Hx Substance Use: No substance use type: does not use Substance Use Type Other:: tramadol Last Used Substance: Days (ago) Last Used Substance Other:: 3 days ago Physical Exam Vital Signs Last Vital Signs Temp 36.6 C 09/17/20 11:33 Pulse 93 H 09/17/20 11:33 Resp 18 09/17/20 11:33 BP 115/83 09/17/20 11:33 Pulse Ox 97 09/17/20 11:33 Constitutional + ill appearing and + obese ENMT Mouth: no dentition abnormality Thyromental Distance: > or= 3.5 Finger Breadths Mallampati Class: II Mouth / Teeth: 1. chipped to gumline Neck normal visual inspection and trachea midline; neck extension not limited Respiratory normal respiratory effort Auscultation: lungs clear to auscultation bilaterally and + diminished lung sounds Cardiovascular Rate/Rhythm: + abnormal rate (irreg./afib) and + abnormal rhythm (irreg./afib) Heart Sounds: no murmur Vessels: no carotid bruit Musculoskeletal Spine: normal cervical ROM Extremities: extremities normal to inspection Neurologic moves all extremities Motor/Sensory: + sensory deficit (fingers/toes diabetic PN) Psychiatric Orientation: alert and oriented x 3 Testing Laboratory Results 09/17/20 05:31 09/17/20 05:31 09/17/20 09/17/20 11:33 07:36 POC Glucose 82 87
[2020-09-17] MEDS ORDERED: OPTIRAY 300 IV PRN (12:55)
[2020-09-17] MEDS ORDERED: ONDANSETRON INJ 2 MG/ML 2 ML VIAL ONE (13:07)
[2020-09-17] MEDS ORDERED: CISATRACURIUM BESYLATE IV SOLN 2 MG/ML 10 ML VIAL IV ONE (13:07)
[2020-09-17] MEDS ORDERED: NEOSTIGMINE METHYLSULFATE 5 MG/5 ML SYR ONE (13:08)
[2020-09-17] MEDS ORDERED: GLYCOPYRROLATE 0.2 MG/ML VIAL ONE (13:08)
--- NOTE | 2020-09-17 13:22 | Fluoroscopy Report ---
INTRAOPERATIVE CHOLANGIOGRAM HISTORY: Post cholecystectomy. FLUOROSCOPY TIME: 3 seconds. 2 fluoroscopic spot images submitted. FINDINGS: Fluoroscopy was provided for an intraoperative cholangiogram status post cholecystectomy. C ontrast was injected through the cystic duct remnant. The common bile duct is normal in course and ca liber. There are no filling defects seen within the common bile duct to suggest a retained stone. Co ntrast extends into the small bowel. There is no intrahepatic bile duct dilatation. The common hepati c duct is not well opacified. IMPRESSION: Fluoroscopy provided for an intraoperative cholangiogram status post cholecystectomy. No filling defects within the common bile duct. ACT 112: Negative or not required by law. Electronically signed by: Oscar Phillips M.D. 09/17/2020 1:21 PM
--- NOTE | 2020-09-17 13:38 | Post Operative Brief Note ---
PG Immediate Post Op with CF Date of Surgery September 17, 2020 Pre & Post Diagnosis Operation Date: 09/17/20 11:55 Pre-Op Diagnosis: Cholecystitis Post-Op Diagnosis: Cholecystitis I identified the patient and participated in the time-out.: Yes Procedure Operation Date: 09/17/20 11:55 Actual Procedures p Laparoscopic Cholecystectomy with Cholangiogram - Dwight Atkinson MD, FACS Surgeon Dwight Atkinson MD, FACS Soil Science Technical Officer b mary villatoro Estimated Blood Loss 35 Findings Consistent with Post-Op Diagnosis Specimens Specimen Description: A. Gallbladder lymph node of Calot marked with suture Drains Luke Drain
--- NOTE | 2020-09-17 13:58 | Operative Report ---
PG Post Operative Report Pre & Post Diagnosis Operation Date: 09/17/20 11:55 Pre-Op Diagnosis: Cholecystitis Post-Op Diagnosis: Cholecystitis I identified the patient and participated in the time-out.: Yes Procedure Operation Date: 09/17/20 11:55 Actual Procedures p Laparoscopic Cholecystectomy with Cholangiogram - Dwight Atkinson MD, FACS The patient was brought into the operating theater general trach anesthesia abdomen was prepped byline solution properly draped timeout was had patient was identified since the patient had multiple abdominal surgery we went to the right upper quadrant laterally made an incision enough a 5 mm trocar we acted dissected free through the muscular layers patient was quite thin all the way into the abdomen 5 mm trocar was positioned pneumoperitoneum was controlled with stay sutures along the fascia at this point the camera was inserted once we had insufflated to 3 L/min 12 pressure we were able to see that the patient had some adhesions towards right lower quadrant we were able to see the falciform ligament and around the liver there were no adhesions we placed a 5 mm trocar and direct visualization in the midline above the umbilicus with preemptive local analgesic the camera was then placed in that area and lingula visualized the point of entry were initial trocar there is no bleeding identified. On direct visualization we then placed a 5 mm epigastric trocar with preemptive local analgesic and a more lateral trocar in the right upper quadrant similarly 5 mm preemptive local was used the gallbladder was free of any adhesions and appeared to be quite thick-walled we were able to elevated up by grasping it with a lateral trocar port and dissected down the deanne hepatis was a moderate a mount of edema was dissected bluntly we identified the cystic duct easily created a window around it we clipped it with a 5 mm trocar in the takeoff of the gallbladder a small opening was made in the cystic duct #4 urethral catheter transversing abdominal wall was positioned in the cystic duct serial x-rays were taken common bile duct appeared markedly the left dilated and distally appeared to be strictured eventually took other pictures and it seemed to open up there was no obvious filling defects. This point the Cholangiocath was removed cystic duct was triply clipped and divided the cystic artery seemed identified doubly clipped and divided the gallbladder was then taken out in antegrade fashion we were able to identify a large lymph node in the clothing we will come with the specimen once we freed the gallbladder from the liver bed placement in an Endopouch and taken out intact through the epigastric port site where we made an incision just to get the thickened gallbladder and the lymph node 5 mm trocar was reinserted in that area controlled with towel clip within the liver there was no gross pathology seen on the liver and there was no evidence of abdominal wall any evidence of carcinomatosis or other implants mostly looking for distance of the distal common bile duct was slightly icteric but no obvious mass in the distal common bile duct by CAT scan I elected to drain the subhepatic area the patient had some oozing which we did by placing a Luke drain come immediately to the umbilical area taken out through the lateral port prior to that they had a small bleeder noted when we clipped the cystic duct triply and antegrade to be a little artery lump at the request of this more securely. The Luke drain which was 19 round was taken out through lateral right upper q uadrant port attaching skin edge with 2-0 silk individual trochars were taken on direct visualization prior to leaving we have inspected her initial entry of entry into the supraumbilical area there was no adhesions identified with a fascial stitch 0 Vicryl isyzzo-ox-feikc x2 for the epigastric area since we enlarged the opening to extract the gallbladder which was wall thick-walled and also a fascial stitch where he initially went in with a cutdown of a 5 mm trocar subcostal lateral wounds were closed with 4-0 Monocryl Steri-Strips applied procedure was tolerated well by the patient estimated blood loss about 35 cc addendumB Catrachita villatoro was present throughout the procedure and helped the retraction exposure and wound closure I called the patient's Esperanza after the surgery Surgeon Dwight Atkinson MD, FACS Clinical Psychology Teacher liana villatoro Estimated Blood Loss 35 Findings Consistent with Post-Op Diagnosis Specimens gallbladder with lymph node of Calot Description of Procedure merda I attest to the content of the Intraoperative Record and any orders documented therein. Any exceptions are noted below.
[2020-09-17] MEDS: fentaNYL citrate 100 MCG/2 ML VIAL IV PRN ×4 (14:00→14:18)
[2020-09-17] MEDS ORDERED: PROMETHAZINE HCL 12.5 MG in SODIUM CHLORIDE 0.9% 50 ML IV PRN (14:04)
[2020-09-17] MEDS ORDERED: ONDANSETRON INJ 2 MG/ML 2 ML VIAL IV PRN (14:04)
[2020-09-17] MEDS ORDERED: ePHEDrine sulfate 50 MG/ML AMP IV PRN (14:04)
[2020-09-17] MEDS ORDERED: NALOXONE HCL 0.4 MG/1 ML VIAL/CARP IV PRN (14:04)
[2020-09-17] MEDS ORDERED: ATROPINE SULFATE 0.1 MG/ML 10ML SYR IV PRN (14:04)
[2020-09-17] MEDS ORDERED: FLUMAZENIL 0.1 MG/1 ML 10 ML VIAL IV PRN (14:04)
[2020-09-17] MEDS ORDERED: LABETALOL HCL IV 5 MG/ML 20ML IV PRN (14:04)
[2020-09-17] MEDS ORDERED: LORazepam 2 MG/4 ML VIAL ONE (14:08)
[2020-09-17] MEDS ORDERED: LORazepam 1 MG/2 ML VIAL IV STA (14:21)
[2020-09-17] MEDS ORDERED: HYDROmorphone INJ 0.5 MG/0.5 ML SYR IV PRN (14:40)
[2020-09-17] MEDS ORDERED: HYDROmorphone INJ 1 MG/ML SYRINGE ONE (14:41)
--- NOTE | 2020-09-17 15:21 | Anesthesiology Progress Note ---
Date of Service September 17, 2020 Anesthesia Post Procedure Vital Signs Vital Signs: Temp Pulse Pulse Pulse Resp BP BP 09/17/20 15:10 36.3 C L 93 H 17 107/71 09/17/20 15:00 102 H 17 118/84 09/17/20 14:50 114 H 20 138/92 09/17/20 14:40 120 H 15 127/78 09/17/20 14:30 126 H 18 116/44 L 09/17/20 14:20 110 H 26 H 117/82 09/17/20 14:10 129 H 12 152/80 H 09/17/20 14:00 118 H 33 H 125/80 09/17/20 13:50 36.4 C L 120 H 16 157/103 H 09/17/20 11:33 36.6 C 93 H 18 115/83 09/17/20 11:07 36.4 C L 80 16 128/80 09/17/20 07:46 76 09/17/20 07:14 36.8 C 93 H 16 137/86 09/17/20 03:25 36.4 C L 83 18 160/77 H 09/16/20 22:20 67 09/16/20 22:05 36.6 C 70 18 109/71 09/16/20 20:10 73 112/69 09/16/20 18:54 36.9 C 81 16 104/69 09/16/20 16:01 70 Pulse Ox 09/17/20 15:10 99 09/17/20 15:00 98 09/17/20 14:50 97 09/17/20 14:40 98 09/17/20 14:30 98 09/17/20 14:20 97 09/17/20 14:10 86 L 09/17/20 14:00 92 09/17/20 13:50 98 09/17/20 11:33 97 09/17/20 11:07 98 09/17/20 07:46 09/17/20 07:14 96 09/17/20 03:25 96 09/16/20 22:20 09/16/20 22:05 96 09/16/20 20:10 97 09/16/20 18:54 92 09/16/20 16:01 Pain Intensity Left Wrist: Pain Intensity: 5 Transfer of Care Handoff Completed per policy Notes Mental Status: see notes below (pt was combative/delirious post/op in PACU;Pt was given lorazepam 1mg iv in PACU, hen 1 mg hydromorphone in PACU. PT is nowsleeping and appears comfortable.) Patient Amnestic to Procedure: Yes Nausea / Vomiting: adequately controlled Pain: adequately controlled Airway Patency, RR, SpO2: stable & adequate BP & HR: stable & adequate Hydration State: stable & adequate Anesthetic Complications: no major complications apparent
[2020-09-17] MEDS: MoRPHine SULFATE 2 MG/ML CARP IV PRN ×2 (17:33→19:29)
--- NOTE | 2020-09-17 19:39 | Billing Data ---
Date of Service September 17, 2020 Coding Level of Care Code 13737 Subseq Hosp Care Lvl 2
[2020-09-17] MEDS: DONEPEZIL HCL 10 MG TAB PO SCH (20:55)
[2020-09-17] MEDS: MoRPHine SULFATE 4 MG/ML 1 ML CARP\\VIAL IV PRN (21:35)
[2020-09-18] MEDS: VESICARE~ORDER AWAITING ACTION SCH ×4 (00:01→23:59)
[2020-09-18] MEDS: MoRPHine SULFATE 4 MG/ML 1 ML CARP\\VIAL IV PRN ×2 (00:01→02:12)
[2020-09-18] MEDS: metroNIDAZOLE 500 MG/100 ML BAG IV SCH ×3 (02:08→18:09)
[2020-09-18] MEDS: SODIUM CHLORIDE 0.9% 1000ML 1,000 ML IV SCH (05:19)
[2020-09-18 06:42] LABS: Basophils # (auto) 0.02 K/uL (0-0.2); Basophils % (auto) 0.3 %; Eosinophils # (auto) 0.19 K/uL (0-0.5); Eosinophils % (auto) 2.6 %; Hematocrit (blood only) 32.9 % (42-52); Hemoglobin 10.6 g/dL (14.0-18.0); Immature Granulocytes # (auto) 0.01 K/uL (0.00-0.02); Immature Granulocytes % (auto) 0.1 %; Lymphocytes # (auto) 0.91 K/uL (1.2-3.4); Lymphocytes % (auto) 12.6 %; Mean Corpuscular Hemoglobin 29.5 pg (25-34); Mean Corpuscular Hgb Conc 32.2 g/dL (32-36); Mean Corpuscular Volume 91.6 fL (80-100); Mean Platelet Volume 10.2 fL (7.4-10.4); Monocytes # (auto) 0.64 K/uL (0.11-0.59); Monocytes % (auto) 8.9 %; Neutrophils # (auto) 5.46 K/uL (1.4-6.5); Neutrophils % (auto) 75.5 %; Platelet Count 222 K/uL (130-400); RDW Coefficient of Variation 16.5 % (11.5-14.5); RDW Standard Deviation 55.7 fL (36.4-46.3); Red Blood Count 3.59 M/uL (4.7-6.1); White Blood Count 7.23 K/uL (4.8-10.8)
[2020-09-18 07:16] LABS: Albumin Level 2.2 gm/dl (3.4-5.0); BUN Creatinine Ratio 6.8 (10-20); Calcium 8.2 mg/dl (8.5-10.1); Est GFR (African American) 33.3; Est GFR (Non-African American) 28.7; Potassium 4.5 mmol/L (3.5-5.1)
[2020-09-18 07:19] LABS: Albumin Globulin Ratio 0.7 (0.9-2); Bilirubin,Total 0.6 mg/dl (0.2-1); Globulin 3.3 gm/dl (2.5-4.0); Total Protein 5.5 gm/dl (6.4-8.2)
[2020-09-18] MEDS: SOLIFENACIN SUCCINATE 10 MG PO SCH (07:51)
[2020-09-18] MEDS: SODIUM BICARBONATE 650 MG TAB PO SCH ×2 (07:52→21:37)
[2020-09-18] MEDS: PANTOprazole 40 MG TAB PO SCH ×2 (07:52→21:36)
[2020-09-18] MEDS: CALCITRIOL 0.25 MCG CAPSULE PO SCH (07:52)
--- NOTE | 2020-09-18 09:35 | Surgery Progress Note ---
Date of Service September 18, 2020 Assessment & Plan (1) Acute cholecystitis: POD 1 lap fabián advance diet as bulmaro Dr. Atkinson removed drain his AM H/H stabel, can restart Eliquis tomorrow Admission and Anticipated Discharge Date Admission Date: September 14, 2020 Subjective had small amount of clears at breakfast Physical Exam Gastrointestinal (Abdomen): Inspection/Auscultation: + abdominal surgical drain present (100 cc) Percussion/Palpation: abdomen soft Results & Data ([facility]) Vital Signs (Past 12 Hours) Vital Signs Temp Pulse Pulse Resp BP Pulse Ox 09/18/20 07:46 79 09/18/20 07:18 36.3 C L 84 20 134/78 98 09/18/20 03:58 36.5 C 86 16 128/72 98 09/18/20 00:00 71 09/17/20 23:00 36.4 C L 71 16 142/80 H 99 PG Care Time/CCT Total # of Minutes Spent Total Time Spent with Patient: Total time spent is greater than 50% in coordination of care (as documented) at patient's floor/unit and/or counseling patient: Coding Level of Care Code None Diagnoses Acute cholecystitis K81.0
--- NOTE | 2020-09-18 12:06 | Hospitalist Progress Note ---
Date of Service September 18, 2020 Assessment & Plan (1) Acute cholecystitis: 85yo male with afib (on eliquis) who presented to [facility] ED on 09/14/2020 with acute onset chest pain. Initial ACS workup negative; found to have evidence of acute cholecystitis on imaging. Laparoscopic cholecystectomy on 09/17. Acute cholecystitis - CT scan of A/P showing gallbladder wall thickening and common bile duct distention - concerning for acute cholecystitis - s/p laparoscopic cholecystectomy on 09/17 - continue cefoxitin IV (renal dosing), continue metronidazole IV - advanced diet to low fat, stopped IVFs - general surgery following Atrial fibrillation - holding home eliquis for surgery, plan to re-start tomorrow - held home metoprolol tartrate due to 3-second pause overnight, will re-start at discharge if no further issues with rhythm CKD3b, resolved KENROY -creatinine elevated to 2.56 on admission (baseline 1.8-2.0), suspect secondary to dehydration - improved with IVFs, today at 2.06 -daily BMP Anemia -normocytic, chronic, stable DM2 -fairly well-controlled, A1c on admission 6.3 -SSI while inpatient Dementia -continue home donepezil 5mg PO qd GERD -pantoprazole 40mg bid (substituted for patients home omeprazole) BPH - continue home solifenacin FENGI: T2DM/low fat diet CODE STATUS: full code CONSULTS: general surgery DISPO: med/surg with tele Admission and Anticipated Discharge Date Admission Date: September 14, 2020 Supervising Physician Co-Signing Physician Notes I personally examined the patient and verified all medina points of history and exam, discussed case, and agree with decision making with Dr brock. Some abdominal pain, eating a liquid lunch. Otherwise feeling okay. Vitals noted, in general he is awake and alert pleasant no distress. HEENT normocephalic atraumatic mucous membranes moist. Breathing unlabored no a ccessory muscle use good effort. Skin shows no rashes no pallor or icterus. Neuro shows no focal deficits. Abdomen soft without guarding/rebound. He does have incisional tenderness Cholecystitisimproving post cholecystectomy Otherwise as above. Anticipate resuming Eliquis tomorrow Dispositionhopefully home tomorrow. PT/OT eval and treat Subjective No acute events overnight. Reports being nauseous after clear liquid breakfast this morning. Also has mild abdominal tenderness near incisions. Otherwise doing well without fever/chills, chest pain, SOB, vomiting. Review of Systems Review of Systems: Pertinent positives and negatives mentioned in HPI. Physical Exam Physical Exam: General: A&Ox3. NAD. Cooperative. HEENT: Atraumatic, normocephalic. Pulm: CTAB A&P. -wheezes, -rales, -rhonchi. Symmetrical chest rise. No increase work of breathing. No respiratory distress. Cardiac: irregularly irregular rhythm, -mrg. Radial pulses intact and symmetri flavio. Abdominal: soft, non-distended, mild tenderness to palpation of areas surrounding surgical incisions, incisions c/d/i, hypoactive BS x 4 Skin: warm, dry Results & Data Results & Data ([facility]) Vital Signs (Past 12 Hours) Vital Signs Temp Pulse Pulse Pulse Resp BP Pulse Ox 09/18/20 11:37 36.7 C 89 18 120/74 96 09/18/20 10:15 09/18/20 07:46 79 09/18/20 07:18 36.3 C L 84 20 134/78 98 09/18/20 03:58 36.5 C 86 16 128/72 98 Pulse Ox 09/18/20 11:37 09/18/20 10:15 96 09/18/20 07:46 09/18/20 07:18 09/18/20 03:58 Resident Activity Tracking Resident Involvement: Resident Care Provided Care Provided: Adult Hospital Medicine
[2020-09-18] MEDS: MoRPHine SULFATE 2 MG/ML CARP IV PRN (15:06)
--- NOTE | 2020-09-18 18:50 | Billing Data ---
Date of Service September 18, 2020 Coding Level of Care Code 27288 Subseq Hosp Care Lvl 2
[2020-09-18] MEDS: DONEPEZIL HCL 10 MG TAB PO SCH (21:37)
[2020-09-19] MEDS: MoRPHine SULFATE 2 MG/ML CARP IV PRN (00:46)
[2020-09-19] MEDS ORDERED: NITROGLYCERIN SL 0.4 MG/TAB TAB SL PRN (00:51)
[2020-09-19] MEDS: metroNIDAZOLE 500 MG/100 ML BAG IV SCH (01:27)
[2020-09-19] MEDS: SODIUM BICARBONATE 650 MG TAB PO SCH (08:05)
[2020-09-19] MEDS: PANTOprazole 40 MG TAB PO SCH (08:05)
[2020-09-19] MEDS: SOLIFENACIN SUCCINATE 10 MG PO SCH (08:06)
[2020-09-19] MEDS: VESICARE~ORDER AWAITING ACTION SCH (08:06)
--- NOTE | 2020-09-19 08:26 | Surgery Progress Note ---
Date of Service September 19, 2020 Assessment & Plan (1) Acute cholecystitis: POD#2 laparoscopic cholecystectomy Patient overall feeling well AM labs still pending Would recommend holding Eliquis today and okay to resume tomorrow From our standpoint patient is okay for discharge pending medicine clearance Will ask pt to follow up in clinic within 1 week Pt seen and examined with Dr. Atkinson Admission and Anticipated Discharge Date Admission Date: September 14, 2020 Subjective Patient examined, he is sitting up in the chair. He states he is feeling okay. Has some arnoldo-incisional pain. Has been tolerating a diet without issues. Physical Exam Physical Exam: awake Constitutional: no acute distress Results & Data ([facility]) Vital Signs (Past 12 Hours) Vital Signs Temp Pulse Pulse Resp BP Pulse Ox 09/19/20 07:44 36.5 C 80 20 135/87 94 09/19/20 04:00 36.8 C 117 H 20 145/84 H 94 09/19/20 01:00 36.4 C L 93 H 20 134/83 96 09/19/20 00:00 101 H 09/18/20 23:00 36.7 C 111 H 18 124/73 95 PG Care Time/CCT Total # of Minutes Spent Total Time Spent with Patient: Total time spent is greater than 50% in coordination of care (as documented) at patient's floor/unit and/or counseling patient: Coding Level of Care Code None Diagnoses Acute cholecystitis K81.0
[2020-09-19 08:36] LABS: Albumin Level 2.2 gm/dl (3.4-5.0); BUN Creatinine Ratio 5.1 (10-20); Calcium 8.5 mg/dl (8.5-10.1); Creatinine Clr Calc Pharmacy 32.2 ml/min; Est GFR (African American) 36.5; Est GFR (Non-African American) 31.5; Potassium 4.5 mmol/L (3.5-5.1)
[2020-09-19 08:39] LABS: Albumin Globulin Ratio 0.6 (0.9-2); Bilirubin,Total 0.4 mg/dl (0.2-1); Globulin 3.7 gm/dl (2.5-4.0); Total Protein 5.9 gm/dl (6.4-8.2)
[2020-09-19 08:42] LABS: Basophils # (auto) 0.01 K/uL (0-0.2); Basophils % (auto) 0.2 %; Eosinophils # (auto) 0.44 K/uL (0-0.5); Eosinophils % (auto) 6.8 %; Hematocrit (blood only) 34.9 % (42-52); Hemoglobin 11.1 g/dL (14.0-18.0); Immature Granulocytes # (auto) 0.02 K/uL (0.00-0.02); Immature Granulocytes % (auto) 0.3 %; Lymphocytes # (auto) 1.07 K/uL (1.2-3.4); Lymphocytes % (auto) 16.6 %; Mean Corpuscular Hemoglobin 29.1 pg (25-34); Mean Corpuscular Hgb Conc 31.8 g/dL (32-36); Mean Corpuscular Volume 91.4 fL (80-100); Mean Platelet Volume 10.3 fL (7.4-10.4); Monocytes % (auto) 9.3 %; Neutrophils # (auto) 4.32 K/uL (1.4-6.5); Neutrophils % (auto) 66.8 %; Platelet Count 235 K/uL (130-400); RDW Coefficient of Variation 16.7 % (11.5-14.5); RDW Standard Deviation 55.1 fL (36.4-46.3); Red Blood Count 3.82 M/uL (4.7-6.1); White Blood Count 6.46 K/uL (4.8-10.8)
[2020-09-19] MEDS ORDERED: METOPROLOL TARTRATE 50 MG TAB PO SCH (09:00)
--- NOTE | 2020-09-19 11:42 | Discharge Summary ---
Date of Service September 19, 2020 Admission HPI Per Admitting Provider Mr. Watson is an 85 yo gentleman with a PMHx of atrial fibrillation on anticoagulation with apixaban, who presented to the emergency department for evaluation of chest pain. He felt the discomfort over his left chest/upper abdomen at about 3:30 pm today. It came on him while he was sitting in his recliner watching television. He denies any radiation up to his jaw or down the left arm. There was no associated SOB. He did eat a meal for lunch ~ 1 hour prior to the onset of pain - it was spence soup. He denies any similar discomfort over the preceding days/weeks, even with physical activity. He has no history of coronary artery disease or cerebral vascular disease. He has been having some trouble with "regurgitation of food" for which he has an EGD 3 weeks ago - his reports the study came back entirely normal, but his symptoms have persisted. He also reports occasional black stools - today they have transitioned back to normal brown color. He is not on a home oral iron supplement. He has been using Pepto-Bismal. On arrival to the ED, he was afebrile, HR was 79, BP 102/91, O2 sat 97 on RA. His WBC was normal. He was negative for COVID 19. His hemoglobin was 11.1, MCV 91.4. His potassium was 5.3. His creatinine was 2.56, BUN at 34. Lipase not elevated. Troponin undetectable. EKG showing Afib without RVR. No ST segment changes. CXR showing no acute process. CT of abdomen/pelvis showing gallbladder wall thickening with mild adjacent inflammatory changes; mildly distended common bile duct. Gallbladder US ordered. Patient was given a a dose of Nitroglycerin and Fentanyl, after which his chest pain resolved. He was also given a dose of zofran and Cefoxitin. Admission Exam Per Admitting Provider Constitutional: WD/WN, vitals as above cooperative; no acute distress Eyes: PERRL, conjunctivae normal, anicteric sclerae ENMT: external ear and nose normal, oropharynx normal Neck: trachea midline, no thyromegaly Respiratory: normal respiratory effort, lungs clear to auscultation no cough Auscultation: no crackles and no wheezes Cardiovascular: Rate/Rhythm: + irregularly irregular Heart Sounds: normal S1 and normal S2; no murmur Extremities: no pedal edema Gastrointestinal (Abdomen): normal bowel sounds, soft, nontender, no hepatosplenomegaly Hanks's sign negative Skin: no rashes, warm and dry Psychiatric: A+Ox3, euthymic affect Principal Diagnosis Acute Cholecystitis Discharge Exam General: A&Ox3. NAD. Cooperative. HEENT: Atraumatic, normocephalic. Pulm: CTAB A&P. -wheezes, -rales, -rhonchi. Symmetrical chest rise. No increase work of breathing. No respiratory distress. Cardiac: irregularly irregular rhythm, -mrg. Radial pulses intact and symmetrical. Abdominal: soft, non-distended, mild tenderness to palpation of areas surrounding surgical incisions, incisions c/d/i, NA BS x 4 Skin: warm, dry Discharge Data Allergies Allergy/AdvReac Type Severity Reaction Status Date / Time No Known Allergies Allergy Verified 09/14/20 17:51 Consultations 09/14/20 19:49 Consult General Surgery Stat 09/14/20 20:05 ED Decision to Admit Stat Procedures Performed Operation Date: 09/17/20 11:55 Actual Procedures p Laparoscopic Cholecystectomy with Cholangiogram - Dwight Atkinson MD, FACS Ordered Studies 09/14/20 17:52 CT abd pelvis wo con Stat 09/14/20 18:58 US gallbladder Urgent 09/17/20 11:55 [place] cholangiogram OR Routine Hospital Course (1) Acute cholecystitis: 85yo male with afib (on eliquis) who presented to [facility] ED on 09/14/2020 with acute onset chest pain. Initial ACS workup negative; found to have evidence of acute cholecystitis on imaging. Laparoscopic cholecystectomy on 09/17. Acute cholecystitis - CT scan of A/P showing gallbladder wall thickening and common bile duct distention - concerning for acute cholecystitis - s/p laparoscopic cholecystectomy on 09/17 - cefoxitin IV (renal dosing) and metronidazole IV from 09/14-09/19, stopped before discharge - advanced diet to low fat on 09/18, tolerated well - f/u with general surgery and with PCP Atrial fibrillation - held home eliquis for surgery, re-start on 09/19 - held home metoprolol tartrate due to 3-second pause on 09/16, no further pauses or rhythm issues, re-started medication on 09/19 CKD3b, resolved KENROY -creatinine elevated to 2.56 on admission (baseline 1.8-2.0), suspect secondary to dehydration - improved with IVFs Anemia -normocytic, chronic, stable DM2 -fairly well-controlled, A1c on admission 6.3 -SSI while inpatient -f/u with PCP Dementia -continue home donepezil 5mg PO daily GERD -continue home Omeprazole BPH - continue home solifenacin Total Time Total Time Spent Total Time Spent (In Minutes): Less than 30 minutes Total Time Includes: Examination of the Patient, Discharge Planning and Medication Reconciliation Discharge Plan Discharge Items Patient Disposition: Home - Self-Care Reason For Visit: CHEST PAIN Discharge Diagnosis: laparoscopic cholecystectomy Activity: Per Instructions section Lifting: No more than 10 pounds Bathing Comment: may shower; no soaking in tubs/pools Exercise/Sports: Wait until after follow-up appointment Driving/Machine Use: Resume 3 days after discharge Non-emergency contact: Primary Care Provider and Surgeon Call non-emergency contact if: you have any medication questions, your symptoms worsen, your pain is worsening, your pain is concerning for you, you have a fever, your temperature is above 101.5, your wound has increased redness, your wound has increased drainage and your wound pain has increased Follow-up/Referrals: Dwight Atkinson MD, FACS [Surgeon] - (Please call to schedule follow up in clinic within 1 week) Spencer Baltazar MD [Primary Care Provider] - 09/24/20 11:00 am Diet: Carb Consistent or DM2 Addtl Attending Provider Instructions: You were admitted to [facility] on 09/14/2020 for a gallbladder infection called acute cholecystitis. Because of the blood thinner (Eliquis) that you take for atrial fibrillation, we had to wait several days before doing a surgery to take your gallbladder out. Your gallbladder was removed in a procedure called a laparoscopic cholecystectomy on 09/17. You were also started on two IV antibiotics called Cefoxitin and Metronidazole for your gallbladder infection. You tolerated the antibiotics and the surgery well. You will be discharged on 09/19/2020 in good, stable condition. Your antibiotics were stopped before discharge; you do not need to continue antibiotics. You can re-start your blood thinner (Eliqius) starting tonight (09/19). You should contine to take all of your home medications as scheduled. You should follow up closely with your PCP and follow up with your surgeon as scheduled. We hope you continue to feel well. It was a pleasure to help provide your care while you were hospitalized. Pending Studies at Discharge: No Stand-Alone Forms: My [facility], Smoking Cessation Medications and DC Order Prescriptions: Continued triamcinolone acetonide 0.1 % cream 1 applic topical BID PRN (Reason: Itching) Qty: 454 RF: 0 Eliquis 2.5 mg tablet 2.5 mg PO BID RF: 0 sodium bicarbonate 650 mg tablet 650 mg PO BID Qty: 180 RF: 3 calcitriol 0.5 mcg capsule 0.5 mcg PO 3XWK Qty: 45 RF: 3 Men's Multivitamin 400-20-300 mcg Tablet 1 tab PO BID RF: 0 calcium carbonate-vitamin D3 [Calcium 500 + D] 500 mg(1,250mg) -200 unit tablet 1 tab PO BID RF: 0 vitamin B complex Tablet 1 tab PO QAM RF: 0 solifenacin [Vesicare] 10 mg tablet 10 mg PO QAM RF: 0 donepezil 10 mg tablet 10 mg PO HS RF: 0 sildenafil (pulm.hypertension) 20 mg tablet 20 mg PO UD PRN (Reason: Erectile Dysfunction) RF: 0 metoprolol tartrate 100 mg Tablet 50 mg PO BID RF: 0 omeprazole 40 mg Capsule,Delayed Release(Dr/Ec) 40 mg PO BID RF: 0 tramadol 50 mg tablet 50 mg PO BID PRN (Reason: Pain) RF: 0 Discharge Orders: Discharge Order (Routine); Ordered 09/19/20 Ordered By: Chris Brock Admission Data Admit Date/Time: 09/14/20 21:03 Attending Provider: Flo Lambert Admit Provider: Justine Mandel Primary Care Provider: Spencer Baltazar Other Providers: Liz oDe ; Dwight Atkinson ; Zak Dye Other Interventions: Discharge Summary Assessment (RN) Last Done: 09/19/20 12:45 Supervising Physician Co-Signing Physician Notes I personally examined the patient and verified all [place] points of history and exam, discussed case, and agree with decision making with Dr brock. Feeling okay overall. Definitely feeling up to going home. Vitals noted, in general he is awake and alert pleasant no distress. HEENT normocephalic atraumatic mucous membranes moist. Breathing unlabored no accessory muscle use good effort. Skin shows no rashes no pallor or icterus. Neuro shows no focal deficits. Cholecystitisimproving post cholecystectomy, now postop day 2 in stable for home. Otherwise as above Resident Activity Tracking Resident Involvement: Resident Care Provided Care Provided: Adult Hospital Medicine
[2020-09-19] MEDS ORDERED: DESTROY THIS MEDICATION ONE (16:36)
--- NOTE | 2020-09-19 18:29 | Billing Data ---
Date of Service September 19, 2020 Coding Level of Care Code D/C Day Management <30 mins
--- NOTE | 2020-09-20 06:17 | Electrocardiogram Report ---
Test Reason : Blood Pressure : / mmHG Vent. Rate : 117 BPM Atrial Rate : 097 BPM P-R Int : 000 ms QRS Dur : 080 ms QT Int : 324 ms P-R-T Axes : 000 -15 -40 degrees QTc Int : 451 ms Atrial fibrillation with rapid ventricular response Low voltage QRS Inferior infarct , age undetermined Nonspecific T wave abnormality Abnormal ECG When compared with ECG of 14-SEP-2020 16:04, Vent. rate has increased BY 43 BPM Inferior infarct is now Present Nonspecific T wave abnormality now evident in Inferior leads Nonspecific T wave abnormality now evident in Lateral leads Confirmed by Hardeep Hernandez ([id number]) on 09/20/2020 6:16:32 AM Referred By: REFERRED SELF Confirmed By:Hardeep Hernandez
== END 2020-09-19 13:32 | disposition home or self-care (01) | DRG 418 ==
LOC: ED 15:59 → SUATTDRO 21:03 → 2N 21:03

== ENCOUNTER 2020-11-06 22:54 | Observation (INO) ==
[2020-11-06 23:49] LABS: Basophils # (auto) 0.04 K/uL (0-0.2); Basophils % (auto) 0.6 %; Eosinophils # (auto) 0.24 K/uL (0-0.5); Eosinophils % (auto) 3.5 %; Hematocrit (blood only) 30.4 % (42-52); Hemoglobin 9.7 g/dL (14.0-18.0); Immature Granulocytes # (auto) 0.02 K/uL (0.00-0.02); Immature Granulocytes % (auto) 0.3 %; Lymphocytes # (auto) 2.33 K/uL (1.2-3.4); Mean Corpuscular Hemoglobin 29.7 pg (25-34); Mean Corpuscular Hgb Conc 31.9 g/dL (32-36); Mean Platelet Volume 10.2 fL (7.4-10.4); Monocytes # (auto) 0.81 K/uL (0.11-0.59); Monocytes % (auto) 11.8 %; Neutrophils # (auto) 3.42 K/uL (1.4-6.5); Neutrophils % (auto) 49.8 %; Platelet Count 236 K/uL (130-400); RDW Coefficient of Variation 16.5 % (11.5-14.5); RDW Standard Deviation 56.8 fL (36.4-46.3); Red Blood Count 3.27 M/uL (4.7-6.1); White Blood Count 6.86 K/uL (4.8-10.8)
--- NOTE | 2020-11-06 23:55 | Emergency Department Note ---
Impression & Plan Left-sided chest pain ED Provider Note NAME: ANABELLE WILLIAMSON AGE: 85 SEX: M ARRIVES VIA: Ambulance INFORMANT: Patient the patient's ED PROVIDER(S): Fiona Belle DO CHIEF COMPLAINT: Left-sided chest pain PLAN: Disposition: Patient was admitted to the [facility] service Condition: Stable MEDICAL DECISION MAKING: This is an 85-year-old male patient with left-sided chest pain that radiates into the left upper quadrant of the abdomen. The patient's EKG is unchanged. Troponin is unremarkable. The presentation from this morning is similar to his presentation from a couple of weeks ago where he was admitted to the hospital and underwent cholecystectomy. Admittedly though the patient's discomfort is much more severe as he describes it. The case was discussed with the [facility] and they will evaluate for further management. Triage Nursing notes reviewed and agree with them. Additional history obtained from the patient's who is at the bedside Prior medical records reviewed Vital Signs: reviewed and unremarkable Differential diagnosis: Gastritis, GERD, STEMI, NSTEMI, angina, esophageal spasm, pancreatitis Diagnostics interpreted by me: ECG: A. fib at a rate of 82 with PVCs no obvious ischemia or ST segment elevation. Repeat EKG while the patient was having chest pain: Atrial fibrillation at a rate of [address] segment elevation or signs of ischemia. There is no ectopy. Cardiac Monitoring: Atrial fibrillation at a rate of 76 Laboratory studies: See below Imaging studies: As per my interpretation Portable chest x-ray: No pulmonary infiltrates or consolidation HPI: 85/M arrives for evaluation of left-sided chest pain. Patient states that he was watching TV this evening when he developed a severe left-sided chest pain that radiated down his left side of his body. He describes the pain as stabbing in nature. In fact, he described it as multiple knives in the left side of his chest. He does admit that he did not feel well earlier in the evening as he had loss of appetite and a stomachache. The patient had a similar event a couple weeks ago when he presented to the emergency department and was diagnosed with cholecystitis and underwent a cholecystectomy. Patient has a history of atrial fibrillation and takes Eliquis. ROS: See above HPI for pertinent positives & negatives. A total of 10 systems reviewed and were otherwise negative. PAST MEDICAL HISTORY:See Below PAST SURGICAL HISTORY:See Below FAMILY HISTORY:See Below SOCIAL HISTORY:See Below HOME MEDICATIONS:See list ALLERGIES:None VITALS:See Below PHYSICAL EXAMINATION: HEENT: Head - normocephalic and atraumatic. Pupils are equal, round, and reactive to light. Extraocular eye muscles are intact, and sclera are anicteric. Nose - moist nasal mucosa without discharge. Mouth - moist buccal mucosa. Oropharynx is nonerythematous and there is no tonsillar exudate or e fabian noted. Neck: Supple; no JVD, nuchal rigidity, cervical lymphadenopathy, or auscultated bruits. Heart: Irregularly irregular rhythm with a controlled rate. There is a normal S1 and S2 with no murmurs, clicks, or gallops appreciated. Lungs: Clear to auscultation bilaterally with no wheezes, rales, or rhonchi. Abdomen: Soft, mildly tender to palpation in the left upper quadrant of the abdomen, nondistended, with good bowel sounds. There are no palpable pulsatile masses or hepatosplenomegaly. There is no guarding, rigidity, or rebound noted. Extremities: No evidence of cyanosis, clubbing, or edema. There are easily palpable peripheral pulses. Skin: warm and dry with good turgor and no rashes. ED COURSE: Times/Reassessments: 2325: The patient was evaluated in room A3. A complete history and physical was performed. Previous electronic medical records were reviewed. An order was placed for continuous cardiac monitoring. The patient is in atrial fibrillation at a rate of 76. Patient had a chest x-ray performed. 0050: The patient was reevaluated at this time. He remains comfortable. I reviewed the results of the laboratory studies and chest x-ray with him. 0120: The patient complained of recurrent stabbing left-sided chest pain at this time. Nursing staff reevaluated vital signs and they were normal. They repeated his EKG and presented it to me. It was unremarkable and showed no signs of ischemia. The chest discomfort resolved on its own. Fiona Belle DO Past Med/Surg History Medical History Acute cholecystitis Anemia Atrial fibrillation no cardioversion. treated with medication and follows with PCP. Chronic kidney disease variable creatinines with baseline ~1.6-2.1 Degenerative disc disease Diabetes mellitus, type 2 diet controlled Dysphagia "trouble keeping foods down" scheduled to 08/07/[address] Ean Shaffer. Fall walker and cane -- fall risk. History of bleeding ulcers History of BPH Hx of migraines Hx of sleep apnea no device Osteoarthritis Substernal chest pain Surgical History H/O gastric bypass 2004 H/O knee surgery "MULTIPLE KNEE SURGERIES"- R/L History of colonoscopy History of esophagogastroduodenoscopy (EGD) History of tooth extraction History of total knee replacement RT/LEFT History of total shoulder replacement LEFT Hx of circumcision Hx of transurethral resection of prostate S/P laparoscopic cholecystectomy (09/17/20) Laparoscopic Cholecystectomy with Cholangiogram with akira drain 09/17/20 Dr. Atkinson Family History Sister Family history of diabetes mellitus Social History Smoking Status: Never smoker Tobacco Type: Cigarettes Second Hand Exposure: Yes (hx); Hx Alcohol Use: No Hx Substance Use: No Preferred Language: Slovenian Communication Ability: Effective Composite Mechanic Required: No Beliefs That Will Affect Care: None marital status: Current Living Situation: Significant Other Current Living Situation Comment: Ex Feels Safe at Home: Yes Assistive Devices: Denture - Upper, Denture - Lower and Walker Allergies Allergies Allergy/AdvReac Type Severity Reaction Status Date / Time No Known Allergies Allergy Verified 11/06/20 23:31 Home Meds Home Medications Medication Instructions Recorded Confirmed omeprazole 40 mg PO BID 03/02/18 11/06/20 Men's Multivitamin 1 tab PO BID 09/28/19 11/06/20 calcium carbonate 500 mg (1,250 1 tab PO BID tab 12/18/19 11/06/20 mg)-vitamin D3 200 unit tablet vitamin B complex 1 tab PO QAM tab 12/18/19 11/06/20 solifenacin [Vesicare] 10 mg PO QAM 02/23/20 11/06/20 apixaban 2.5 mg tablet 2.5 mg PO BID 07/24/20 11/06/20 donepezil 10 mg PO HS 07/29/20 11/06/20 sildenafil (pulm.hypertension) 20 mg PO UD PRN 07/29/20 11/06/20 tramadol 50 mg PO BID PRN 09/14/20 11/06/20 metoprolol tartrate 50 mg PO BID 11/06/20 11/06/20 tamsulosin 0.4 mg PO DAILY 11/06/20 11/06/20 Previous Rx's Medication Instructions Recorded calcitriol 0.5 mcg capsule 0.5 mcg PO 3XWK #45 cap 07/16/20 sodium bicarbonate 650 mg tablet 650 mg PO BID #180 tab 07/16/20 triamcinolone acetonide 0.1 % 1 applic TOPICAL BID PRN #454 g 07/26/20 topical cream Results & Data (ED) Vital Signs Vital Signs - 24 hr 11/06/20 23:02 11/06/20 23:03 11/06/20 23:09 Temperature 36.6 C Temperature Source Oral Pulse Rate 76 71 64 Pulse Rate from SpO2 Sensor 75 68 Pulse Rhythm Regular Pulse Strength Normal Respiratory Rate 20 18 23 Blood Pressure 149/82 H 146/82 H Blood Pressure Mean 104 103 Blood Pressure Position Lying Pulse Oximetry 99 99 98 Oxygen Delivery Method Room Air Sepsis Recent Fever Within 48 Hours No Sepsis New/Unexplained Change in Mental Status N/A Sepsis Action Taken by Nursing No Action Required 11/06/20 23:30 11/06/20 23:42 11/07/20 00:00 Temperature Temperature Source Pulse Rate 73 72 77 Pulse Rate from SpO2 Sensor 80 86 Pulse Rhythm Irregular Pulse Strength Respiratory Rate 22 18 18 Blood Pressure 132/69 135/70 Blood Pressure Mean 90 91 Blood Pressure Position Pulse Oximetry 98 98 98 Oxygen Delivery Method Room Air Sepsis Recent Fever Within 48 Hours Sepsis New/Unexplained Change in Mental Status Sepsis Action Taken by Nursing 11/07/20 00:30 11/07/20 00:40 11/07/20 00:50 Temperature Temperature Source Pulse Rate 76 83 85 Pulse Rate from SpO2 Sensor 77 85 88 Pulse Rhythm Pulse Strength Respiratory Rate 14 23 21 Blood Pressure 122/67 Blood Pressure Mean 85 Blood Pressure Position Pulse Oximetry 97 96 95 Oxygen Delivery Method Sepsis Recent Fever Within 48 Hours Sepsis New/Unexplained Change in Mental Status Sepsis Action Taken by Nursing 11/07/20 01:00 11/07/20 01:10 11/07/20 01:20 Temperature Temperature Source Pulse Rate 84 86 79 Pulse Rate from SpO2 Sensor 90 79 84 Pulse Rhythm Pulse Strength Respiratory Rate 25 H 24 14 Blood Pressure 125/83 Blood Pressure Mean 97 Blood Pressure Position Pulse Oximetry 98 99 96 Oxygen Delivery Method Sepsis Recent Fever Within 48 Hours Sepsis New/Unexplained Change in Mental Status Sepsis Action Taken by Nursing 11/07/20 01:30 11/07/20 01:31 11/07/20 02:00 Temperature Temperature Source Pulse Rate 82 82 Pulse Rate from SpO2 Sensor 77 83 Pulse Rhythm Pulse Strength Respiratory Rate 12 12 27 H Blood Pressure 133/84 124/92 Blood Pressure Mean 100 102 Blood Pressure Position Pulse Oximetry 99 98 98 Oxygen Delivery Method Sepsis Recent Fever Within 48 Hours Sepsis New/Unexplained Change in Mental Status Sepsis Action Taken by Nursing Laboratory Data Result diagrams: 11/06/20 23:14 11/06/20 23:14 Lab Results 11/06/20 11/06/20 11/06/20 Range/Units 23:14 23:14 23:14 WBC 6.86 (4.8-10.8) K/uL RBC 3.27 L (4.7-6.1) M/uL Hgb 9.7 L (14.0-18.0) g/dL Hct 30.4 L (42-52) % MCV 93.0 (80-100) fL MCH 29.7 (25-34) pg MCHC 31.9 L (32-36) g/dL RDW Std Deviation 56.8 H (36.4-46.3) fL RDW Coeff of Yinka 16.5 H (11.5-14.5) % Plt Count 236 (130-400) K/uL MPV 10.2 (7.4-10.4) fL Immature Gran % (Auto) 0.3 % Neut % (Auto) 49.8 % Lymph % (Auto) 34.0 % Powell % (Auto) 11.8 % Eos % (Auto) 3.5 % Baso % (Auto) 0.6 % Neut # (Auto) 3.42 (1.4-6.5) K/uL Lymph # (Auto) 2.33 (1.2-3.4) K/uL Powell # (Auto) 0.81 H (0.11-0.59) K/uL Eos # (Auto) 0.24 (0-0.5) K/uL Baso # (Auto) 0.04 (0-0.2) K/uL Immature Gran # (Auto) 0.02 (0.00-0.02) K/uL APTT 27.3 (21.0-31.0) Seconds PTT Ratio 1.0 Sodium 145 (136-145) mmol/L Potassium 4.1 (3.5-5.1) mmol/L Chloride 117 H (98-107) mmol/L Carbon Dioxide 20 L (21-32) mmol/L Anion Gap 8.0 (3-11) BUN 25 H (7-18) mg/dl Creatinine 1.93 H (0.6-1.4) mg/dl Est Cr Clr Drug Dosing 32.3 ml/min Est GFR ( Amer) 36.0 ml/min Est GFR (Non-Af Amer) 31.1 ml/min BUN/Creatinine Ratio 13.2 (10-20) Glucose 80 (70-99) mg/dl Calcium 7.7 L (8.5-10.1) mg/dl Magnesium 1.9 (1.8-2.4) mg/dl Total Bilirubin 0.2 (0.2-1) mg/dl AST 13 L (15-37) U/L ALT 19 (12-78) U/L Alkaline Phosphatase 80 (45-117) U/L Troponin I < 0.015 (0-0.045) ng/ml Total Protein 6.4 (6.4-8.2) gm/dl Albumin 2.7 L (3.4-5.0) gm/dl Globulin 3.7 (2.5-4.0) gm/dl Albumin/Globulin Ratio 0.7 L (0.9-2) Lipase 61 L (73-393) U/L COVID-19 Eval Order SARS-CoV-2 (PCR) (Negative) 11/07/20 11/07/20 Range/Units 00:00 00:00 WBC (4.8-10.8) K/uL RBC (4.7-6.1) M/uL Hgb (14.0-18.0) g/dL Hct (42-52) % MCV (80-100) fL MCH (25-34) pg MCHC (32-36) g/dL RDW Std Deviation (36.4-46.3) fL RDW Coeff of Yinka (11.5-14.5) % Plt Count (130-400) K/uL MPV (7.4-10.4) fL Immature Gran % (Auto) % Neut % (Auto) % Lymph % (Auto) % Powell % (Auto) % Eos % (Auto) % Baso % (Auto) % Neut # (Auto) (1.4-6.5) K/uL Lymph # (Auto) (1.2-3.4) K/uL Powell # (Auto) (0.11-0.59) K/uL Eos # (Auto) (0-0.5) K/uL Baso # (Auto) (0-0.2) K/uL Immature Gran # (Auto) (0.00-0.02) K/uL APTT (21.0-31.0) Seconds PTT Ratio Sodium (136-145) mmol/L Potassium (3.5-5.1) mmol/L Chloride (98-107) mmol/L Carbon Dioxide (21-32) mmol/L Anion Gap (3-11) BUN (7-18) mg/dl Creatinine (0.6-1.4) mg/dl Est Cr Clr Drug Dosing ml/min Est GFR ( Amer) ml/min Est GFR (Non-Af Amer) ml/min BUN/Creatinine Ratio (10-20) Glucose (70-99) mg/dl Calcium (8.5-10.1) mg/dl Magnesium (1.8-2.4) mg/dl Total Bilirubin (0.2-1) mg/dl AST (15-37) U/L ALT (12-78) U/L Alkaline Phosphatase (45-117) U/L Troponin I (0-0.045) ng/ml Total Protein (6.4-8.2) gm/dl Albumin (3.4-5.0) gm/dl Globulin (2.5-4.0) gm/dl Albumin/Globulin Ratio (0.9-2) Lipase (73-393) U/L COVID-19 Eval Order Covid19 at [facility] SARS-CoV-2 (PCR) NEGATIVE (Negative) Discharge Plan Visit Data Chief Complaint: Chest Pain Stated Complaint: CP ED Provider: Fiona Belle Discharge Problem: Left-sided chest pain Patient Disposition: Admitted As Inpatient Discharge Instructions Interventions: ED Discharge Assessment Last Done: 11/07/20 03:56
[2020-11-06 23:59] LABS: Partial Thromboplastin Time 27.3 Seconds (21.0-31.0)
[2020-11-07 00:05] LABS: Alanine Aminotransferase 19 U/L (12-78); Albumin Level 2.7 gm/dl (3.4-5.0); Aspartate Aminotransferase 13 U/L (15-37); BUN Creatinine Ratio 13.2 (10-20); Blood Urea Nitrogen 25 mg/dl (7-18); Calcium 7.7 mg/dl (8.5-10.1); Carbon Dioxide 20 mmol/L (21-32); Chloride 117 mmol/L (98-107); Creatinine Clr Calc Pharmacy 32.3 ml/min; Est GFR (Non-African American) 31.1 ml/min; Glucose 80 mg/dl (70-99); Lipase 61 U/L (73-393); Potassium 4.1 mmol/L (3.5-5.1); Sodium 145 mmol/L (136-145)
[2020-11-07 00:10] LABS: Albumin Globulin Ratio 0.7 (0.9-2); Alkaline Phosphatase 80 U/L (45-117); Bilirubin,Total 0.2 mg/dl (0.2-1); Globulin 3.7 gm/dl (2.5-4.0); Total Protein 6.4 gm/dl (6.4-8.2); Troponin I < 0.015 ng/ml (0-0.045)
--- NOTE | 2020-11-07 02:39 | History & Physical Report ---
Date of Service November 07, 2020 Assessment & Plan (1) Left-sided chest pain: 85yo C male presenting with intermittent episodes of stabbing pain of the left lower chest. Atypical presentation for cardiac- troponin negative, EKG with no evidence of acute ischemia - EKG taken during episode in ER showed rate controlled atrial fibrillation with no ST-T wave changes. Ddx to include rib fractures as patient sustained trauma to the left side during a fall. ?Musculoskeletal/intercostal spasm vs gas pain. -Telemetry monitoring -Trend troponin -Heating pad to left side -Simethicone PRN for possible gas pain -Will check left rib series for possible fracture Present on Admission?: Yes (2) CKD (chronic kidney disease): Renal function near baseline -Continue to monitor Present on Admission?: Yes (3) BPH w urinary obs/LUTS: Chronic -Continue Flomax -Monitor UOP Present on Admission?: Yes (4) GERD (gastroesophageal reflux disease): Chronic. Stable -Protonix 40mg po BID in place of home Omeprazole Present on Admission?: Yes (5) Atrial fibrillation: Rate controlled. On Eliquis anticoagulation -Continue Metoprolol 50mg po BID -Continue Eliquis 2.5mg po BID -Telemetry monitoring as above Present on Admission?: Yes (6) Type 2 diabetes mellitus: Blood sugar well controlled with diet -Fingersticks qHS, qAC Present on Admission?: Yes (7) Mild cognitive impairment: Patient is oriented x 3, appropriately answering questions and following commands. He was slightly confused immediately after waking which quickly resolved -Continue Aricept 10mg po qHS -Delirium prevention strategies with frequent orientation, avoidance of delirium inducing medications F/E/N - Heplock. Monitor electrolytes. CC diet as tolerated Ppx - Continue Eliquis Code - Full Dispo - Admit to medical with telemetry Present on Admission?: Yes History of Present Illness Chief Complaint: left sided chest pain Primary Care Provider: Spencer Baltazar MD Cl Watson is an 85yo male presenting with left lower chest pain. Patient was in his usual state of health at home when he developed acute onset of stabbing chest pain in the lower left chest. Pain severe, 10/10, lasted only briefly then resolved. He had 10-12 episodes of this pain. His states that he became pale and diaphoretic and was calling out in pain and grabbing his side. Patient has had several falls in the last two weeks and has fallen onto his left side. He had seen the chiropractor for spinal manipulation last week. He has been having increased amount of flatulence Patient had similar presentation in the past - negative workup for cardiac etiology. Found with cholecystitis s/p cholecystectomy. No additional complaints. Specifically denies palpitations, dizziness, abdominal pain, nausea, vomiting, diarrhea, constipation. Allergies Allergy/AdvReac Type Severity Reaction Status Date / Time No Known Allergies Allergy Verified 11/06/20 23:31 Home Medications Medication Instructions Recorded Confirmed Type omeprazole 40 mg PO BID 03/02/18 11/06/20 History Men's Multivitamin 1 tab PO BID 09/28/19 11/06/20 History calcium carbonate 500 mg (1,250 1 tab PO BID tab 12/18/19 11/06/20 History mg)-vitamin D3 200 unit tablet vitamin B complex 1 tab PO QAM tab 12/18/19 11/06/20 History solifenacin [Vesicare] 10 mg PO QAM 02/23/20 11/06/20 History calcitriol 0.5 mcg capsule 0.5 mcg PO 3XWK #45 cap 07/16/20 11/06/20 Rx sodium bicarbonate 650 mg tablet 650 mg PO BID #180 tab 07/16/20 11/06/20 Rx apixaban 2.5 mg tablet 2.5 mg PO BID 07/24/20 11/06/20 History triamcinolone acetonide 0.1 % 1 applic TOPICAL BID PRN #454 g 07/26/20 11/06/20 Rx topical cream donepezil 10 mg PO HS 07/29/20 11/06/20 History sildenafil (pulm.hypertension) 20 mg PO UD PRN 07/29/20 11/06/20 History tramadol 50 mg PO BID PRN 09/14/20 11/06/20 History metoprolol tartrate 50 mg PO BID 11/06/20 11/06/20 History tamsulosin 0.4 mg PO DAILY 11/06/20 11/06/20 History Past Med/Surg History Medical History Acute cholecystitis Anemia Atrial fibrillation no cardioversion. treated with medication and follows with PCP. Chronic kidney disease variable creatinines with baseline ~1.6-2.1 Degenerative disc disease Diabetes mellitus, type 2 diet controlled Dysphagia "trouble keeping foods down" scheduled to 08/07/[address] Ean Shaffer. Fall walker and cane -- fall risk. History of bleeding ulcers History of BPH Hx of migraines Hx of sleep apnea no device Osteoarthritis Substernal chest pain Surgical History H/O gastric bypass 2004 H/O knee surgery "MULTIPLE KNEE SURGERIES"- R/L History of colonoscopy History of esophagogastroduodenoscopy (EGD) History of tooth extraction History of total knee replacement RT/LEFT History of total shoulder replacement LEFT Hx of circumcision Hx of transurethral resection of prostate S/P laparoscopic cholecystectomy (09/17/20) Laparoscopic Cholecystectomy with Cholangiogram with akira drain 09/17/20 Dr. 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 Beliefs That Will Affect Care: None marital status: Current Living Situation: Significant Other Current Living Situation Comment: Ex Feels Safe at Home: Yes Assistive Devices: Glasses and Walker Review of Systems Review of Systems: All systems reviewed & are unremarkable except as noted in HPI & below Physical Exam Physical Exam: General: patient resting comfortably, NAD, non-toxic in appearance, AA&O x 4 Skin: warm, dry, several small skin tears in various stages of healing on bilateral arms and legs, no rash HEENT: NC/AT, PERRL, EOMI, anicteric sclera, conjunctiva without injection, external ear normal to inspection and nontender, nares patent, moist mucus membranes, dentition intact, no oropharyngeal lesions, neck supple, trachea midline, no LAD, no thyromegaly, no JVD Heart: +S1/S2, irregularly irregular, no m/r/g Lungs: equal air entry bilaterally, no rales/rhonchi/wheezes Abd: +BS, mildly hyperactive, soft, NT/ND, no masses/organomegaly/ascites Ext: warm, 2+ pulses in UE/LE bilaterally, no clubbing/cyanosis or edema Neuro: nonfocal, patient AA&O x 4, speech intact, no facial droop, moving all extremities on command with equal strength 5/5 No discomfort with compression of ribs, no point tenderness Left sided ribs with normal excursion and movement on inhalation and exhalation No rash present on left side Results & Data Results & Data ([facility]) Vital Signs (Past 12 Hours) Vital Signs Temp Pulse Resp BP Pulse Ox 11/07/20 01:31 82 12 133/84 98 11/07/20 01:30 82 12 99 11/07/20 01:20 79 14 96 11/07/20 01:10 86 24 99 11/07/20 01:00 84 25 H 125/83 98 11/07/20 00:50 85 21 95 11/07/20 00:40 83 23 96 11/07/20 00:30 76 14 122/67 97 11/07/20 00:00 77 18 135/70 98 11/06/20 23:42 72 18 98 11/06/20 23:30 73 22 132/69 98 11/06/20 23:09 64 23 98 11/06/20 23:03 71 18 146/82 H 99 11/06/20 23:02 36.6 C 76 20 149/82 H 99 Laboratory Results Laboratory Results WBC 6.86 K/uL (4.8-10.8) 11/06/20 23:14 RBC 3.27 M/uL (4.7-6.1) L 11/06/20 23:14 Hgb 9.7 g/dL (14.0-18.0) L 11/06/20 23:14 Hct 30.4 % (42-52) L 11/06/20 23:14 MCV 93.0 fL (80-100) 11/06/20 23:14 MCH 29.7 pg (25-34) 11/06/20 23:14 MCHC 31.9 g/dL (32-36) L 11/06/20 23:14 RDW Std Deviation 56.8 fL (36.4-46.3) H 11/06/20 23:14 RDW Coeff of Yinka 16.5 % (11.5-14.5) H 11/06/20 23:14 Plt Count 236 K/uL (130-400) 11/06/20 23:14 MPV 10.2 fL (7.4-10.4) 11/06/20 23:14 Immature Gran % (Auto) 0.3 % 11/06/20 23:14 Neut % (Auto) 49.8 % 11/06/20 23:14 Lymph % (Auto) 34.0 % 11/06/20 23:14 [place] % (Auto) 11.8 % 11/06/20 23:14 Eos % (Auto) 3.5 % 11/06/20 23:14 Baso % (Auto) 0.6 % 11/06/20 23:14 Neut # (Auto) 3.42 K/uL (1.4-6.5) 11/06/20 23:14 Lymph # (Auto) 2.33 K/uL (1.2-3.4) 11/06/20 23:14 [place] # (Auto) 0.81 K/uL (0.11-0.59) H 11/06/20 23:14 Eos # (Auto) 0.24 K/uL (0-0.5) 11/06/20 23:14 Baso # (Auto) 0.04 K/uL (0-0.2) 11/06/20 23:14 Immature Gran # (Auto) 0.02 K/uL (0.00-0.02) 11/06/20 23:14 APTT 27.3 Seconds (21.0-31.0) 11/06/20 23:14 PTT Ratio 1.0 11/06/20 23:14 Sodium 145 mmol/L (136-145) 11/06/20 23:14 Potassium 4.1 mmol/L (3.5-5.1) 11/06/20 23:14 Chloride 117 mmol/L (98-107) H 11/06/20 23:14 Carbon Dioxide 20 mmol/L (21-32) L 11/06/20 23:14 Anion Gap 8.0 (3-11) 11/06/20 23:14 BUN 25 mg/dl (7-18) H 11/06/20 23:14 Creatinine 1.93 mg/dl (0.6-1.4) H 11/06/20 23:14 Est Cr Clr Drug Dosing 32.3 ml/min 11/06/20 23:14 Est GFR ( Amer) 36.0 ml/min 11/06/20 23:14 Est GFR (Non-Af Amer) 31.1 ml/min 11/06/20 23:14 BUN/Creatinine Ratio 13.2 (10-20) 11/06/20 23:14 Glucose 80 mg/dl (70-99) 11/06/20 23:14 Calcium 7.7 mg/dl (8.5-10.1) L 11/06/20 23:14 Total Bilirubin 0.2 mg/dl (0.2-1) 11/06/20 23:14 AST 13 U/L (15-37) L 11/06/20 23:14 ALT 19 U/L (12-78) 11/06/20 23:14 Alkaline Phosphatase 80 U/L (45-117) 11/06/20 23:14 Troponin I < 0.015 ng/ml (0-0.045) 11/06/20 23:14 Total Protein 6.4 gm/dl (6.4-8.2) 11/06/20 23:14 Albumin 2.7 gm/dl (3.4-5.0) L 11/06/20 23:14 Globulin 3.7 gm/dl (2.5-4.0) 11/06/20 23:14 Albumin/Globulin Ratio 0.7 (0.9-2) L 11/06/20 23:14 Lipase 61 U/L (73-393) L 11/06/20 23:14 COVID-19 Eval Order Covid19 at [facility] 11/07/20 00:00 SARS-CoV-2 (PCR) NEGATIVE (Negative) 11/07/20 00:00 Code Status & VTE Plan VTE Prophylaxis Plan VTE Prophylaxis will be ordered: Yes PG Care Time/CCT Total # of Minutes Spent Total Time Spent with Patient: Total time spent is greater than 50% in coordination of care (as documented) at patient's floor/unit and/or counseling patient: Coding Level of Care Code 56514 OBS Care - Level 3 Diagnoses Left-sided chest pain R07.9 CKD (chronic kidney disease) N18.9 Chronic kidney disease stage: unspecified stage BPH w urinary obs/LUTS GERD (gastroesophageal reflux disease) K21.9 Esophagitis presence: esophagitis presence not specified Atrial fibrillation I48.91 Atrial fibrillation type: unspecified Type 2 diabetes mellitus E11.9 Diabetes mellitus halfway insulin use: without 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 Diabetes mellitus complication status: without complication Mild cognitive impairment G31.84 (1) CKD (chronic kidney disease) Chronic kidney disease stage: unspecified stage Qualified Code(s): N18.9 - Chronic kidney disease, unspecified (2) GERD (gastroesophageal reflux disease) Esophagitis presence: esophagitis presence not specified Qualified Code(s): K21.9 - Gastro-esophageal reflux disease without esophagitis (3) Atrial fibrillation Atrial fibrillation type: unspecified Qualified Code(s): I48.91 - Unspecified atrial fibrillation (4) Type 2 diabetes mellitus Diabetes mellitus halfway insulin use: without halfway use Diabetes mellitus complication status: without complication Qualified Code(s): E11.9 - Type 2 diabetes mellitus without complications
[2020-11-07] MEDS ORDERED: GLUCAGON FOR INJ 1 MG VIAL SQ PRN ×2 (04:16→12:53)
[2020-11-07] MEDS ORDERED: SIMETHICONE 80 MG CHEW PO PRN (04:16)
[2020-11-07] MEDS ORDERED: DEXTROSE 50% 50 ML SYRINGE IV PRN ×2 (04:16→12:53)
[2020-11-07] MEDS ORDERED: ONDANSETRON INJ 2 MG/ML 2 ML VIAL IV PRN (04:16)
[2020-11-07] MEDS ORDERED: GLUCOSE 10 TABS/TUBE PO PRN ×2 (04:16→12:53)
[2020-11-07] MEDS ORDERED: GLUCOSE 40% GEL 15 GM TUBE PO PRN ×2 (04:16→12:53)
[2020-11-07] MEDS ORDERED: CARBOHYDRATES FOR HYPOGLYCEMIA PO PRN ×2 (04:16→12:53)
[2020-11-07] MEDS ORDERED: ACETAMINOPHEN 325 MG TAB PO PRN (04:16)
[2020-11-07 04:28] LABS: Magnesium 1.9 mg/dl (1.8-2.4)
[2020-11-07] MEDS ORDERED: NITROGLYCERIN SL 0.4 MG/TAB TAB ONE (04:57)
[2020-11-07] MEDS: traMADol HCL 50 MG TABLET PO PRN (05:03)
[2020-11-07] MEDS ORDERED: MoRPHine SULFATE 2 MG/ML CARP IV STA (05:54)
[2020-11-07] MEDS ORDERED: MoRPHine SULFATE 2 MG/ML CARP ONE (05:57)
--- NOTE | 2020-11-07 06:42 | XRay Report ---
XR chest 1V portable CLINICAL HISTORY: Chest Pain COMPARISON STUDY: Chest radiograph September 14, 2020. FINDINGS: Lung volumes are normal. Lungs are clear. There is no pneumothorax or pleural effusion. Car diac size is stable. Mediastinal contours are normal. There is no evidence for pulmonary edema. Left shoulder arthroplasty is incidentally noted. IMPRESSION: No acute cardiopulmonary findings. No significant change in appearance of the chest. ACT 112: Negative or not required by law. Electronically signed by: Emiliano Meier M.D. 11/07/2020 6:41 AM
[2020-11-07] MEDS: METOPROLOL TARTRATE 50 MG TAB PO SCH ×2 (07:50→21:07)
[2020-11-07] MEDS: TAMSULOSIN HCL 0.4 MG CAP PO SCH (07:50)
[2020-11-07] MEDS: SODIUM BICARBONATE 650 MG TAB PO SCH ×2 (07:50→21:07)
[2020-11-07] MEDS: PANTOprazole 40 MG TAB PO SCH ×2 (07:50→21:07)
[2020-11-07] MEDS: APIXABAN 2.5 MG TAB PO SCH ×2 (07:50→21:07)
[2020-11-07] MEDS: CALCIUM 600MG + VIT D 400 IU TAB PO SCH ×2 (07:50→21:07)
--- NOTE | 2020-11-07 09:16 | Electrocardiogram Report ---
Test Reason : Blood Pressure : / mmHG Vent. 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
--- NOTE | 2020-11-07 09:17 | Electrocardiogram Report ---
Test Reason : Blood Pressure : / mmHG Vent. Rate : 091 BPM Atrial Rate : 090 BPM P-R Int : 000 ms QRS Dur : 074 ms QT Int : 370 ms P-R-T Axes : 000 -07 019 degrees QTc Int : 455 ms Atrial fibrillation Low voltage QRS Abnormal ECG When compared with ECG of 07-NOV-2020 01:28, Borderline Criteria for Inferior infarct no longer present Otherwise no significant change Confirmed by Josue Pa ([id number]) on 11/07/2020 9:17:03 AM Referred By: REFERRED SELF Confirmed By:Josue Pa
--- NOTE | 2020-11-07 09:17 | Electrocardiogram Report ---
Test Reason : Blood Pressure : / mmHG Vent. Rate : 083 BPM Atrial Rate : 202 BPM P-R Int : 000 ms QRS Dur : 080 ms QT Int : 358 ms P-R-T Axes : 000 -15 015 degrees QTc Int : 420 ms Atrial fibrillation Old Inferior infarct (cited on or before 19-SEP-2020) Abnormal ECG When compared with ECG of 06-NOV-2020 23:02, No significant change was found Confirmed by Josue Pa ([id number]) on 11/07/2020 9:16:43 AM Referred By: REFERRED SELF Confirmed By:Josue Pa
--- NOTE | 2020-11-07 10:11 | XRay Report ---
XR ribs LT min 2V w CXR1V CLINICAL HISTORY: left side pain, history of fall COMPARISON: Chest radiograph November 06, 2020. Chest CT January 24, 2019. Left rib series February 28. FINDINGS: There is no pneumothorax. Slight blunting right costophrenic angle is noted. Left shoulder arthroplasty is partially imaged. Cardiac size is normal. No consolidation is present. Several old l eft rib fractures are noted. No acute left rib fractures are identified. IMPRESSION: No pneumothorax. No acute left-sided rib fractures. Several old left rib fractures. ACT 112: Negative or not required by law. Electronically signed by: Emiliano Meier M.D. 11/07/2020 10:09 AM
--- NOTE | 2020-11-07 13:05 | History & Physical Bridge Note ---
Date of Service November 07, 2020 History & Physical Bridge Note I have examined the patient, reviewed the History & Physical and in the interval since the performance of the History & Physical I have noted the following changes of clinical significance: Pt reports having upper abdominal pain and regurgitated food after eating lunch today. He is still having left sided rib pain that waxes and wanes and is not worse with deep breathing or movement, but is very tender to the touch. He has a h/o gastric bypass surgery and reports he had some black tarry stools about a month ago but they went away. Also reports ahving 4 hemorrhoidectomies for BRBPR and has still had some BRBPR in the last week. Pt reports he tipped his scooter onto himself about 1-2 weeks ago and had 2 other falls around that same time. No pain since that time until yesterday. reports he has been very weak and deconditioned which is worse since his hospitlaization for cholecystectomy. I spoke with his on the phone-she reports that he was screaming out loud with pain in the left ribs yesterday and then actually passed out for a few seconds on two occasions with eyes closed, unresponsive, but then she was able to get him to "come around" after which he had a glazed over look in his eyes. Hgb down from baseline at 9.7. Rib series with old left sided rib fractures but nothing acute as per Rad read. Troponin neg x 2 Tele with Afib rates 40s-120s. Vitals reviewed NAD, AAOx3 Anicteric sclerae, MMM irreg irreg, normal rate, no mgr CTAB no wcr Chest with +TTP over left lateral lower ribs, no bruising, crepitus, or masses Abd +BS soft, mild +TTP epigastric region without guarding or rebound, no masses Ext no edema SKin no rashes 85 yo male with a h/o Afib on Eliquis, here with left sided rib pain, ?GI bleeding, worsening anemia, and likely vasovagal syncope -check ECHO trops neg x 2-follow serial trop -continue tele monitoring -will check CT Chest/Abd/Pel withOUT contrast to check left sided rib pain and now with abd pain and vomiting in setting of recent BRBPR -consult GI to see if neds EGD -make NPO now
--- NOTE | 2020-11-07 14:51 | Consultation Report ---
DATE OF CONSULTATION: 11/07/2020 GASTROINTESTINAL CONSULT NOTE REASON FOR EVALUATION: Rectal bleeding. HISTORY OF PRESENT ILLNESS: The patient is an 85-year-old hospitalized with stabbing left-sided chest pain. The patient does have a history of falling and had some fractures in the ribs, which were apparently old. He had a cardiac evaluation, which initially showed no signs of acute cardiac injury. Cardiac echo is pending. He does report that he has been having some rectal bleeding and it is bright red blood, and his hemoglobin has dropped from 11 to 9.7. reports that he has had at least 2 hemorrhoid operations, maybe as many as 4 over the years. He has only had 1 colonoscopy in his life and it was 5 years ago, and according to the patient's , there were no other significant abnormalities found. He did have an EGD on 08/07/[address] Shaffer for difficulty swallowing and acid reflux. There were no signs of acid reflux in his esophagus, although he did appear to have an abnormal esophageal motility. He was able to pass the scope into the stomach where there was evidence of previous gastric bypass with Billroth I gastroduodenostomy and a small gastric pouch. The gastric bypass was performed in 2004 and the patient at that time was about 370 pounds and he has lost a significant amount of weight as a result of the bypass. There was no source of blood loss or bleeding at that time in 08/2020. PHYSICAL EXAMINATION: The patient appears in no acute distress. Palpation over the left ribs in the mid axillary line did show some point tenderness suggesting possible rib injury or intercostal muscle injury, and the patient is scheduled for a chest CT during his hospital stay. The patient has been on Eliquis twice a day for his history of atrial fibrillation and has some ecchymoses on his arms. IMPRESSION AND PLAN: The patient has rectal bleeding, most likely hemorrhoidal, exacerbated by his blood thinners. Because of his gastric bypass operation, he is not able to tolerate a full bowel prep in the usual fashion, so it will have to be done over 2 days. I recommend that the patient get his chest pain evaluated and treated appropriately and then we can pursue an outpatient colonoscopy with a 2-day prep in the future.
--- NOTE | 2020-11-07 15:12 | XCELERA ---
[id number]
--- NOTE | 2020-11-07 15:20 | CT Scan Report ---
CT chest diagnostic wo con CT DOSE: HISTORY: left sided chest pain s/p trauma TECHNIQUE: Multiaxial CT images of the chest were performed without contrast. A dose lowering techni que was utilized adhering to the principles of ALARA. COMPARISON: Chest CT 01/24/2019. FINDINGS: There are old, healed bilateral anterior rib fractures. There is a left shoulder prosthesis which is partially visualized. Anterior fused osteophytes within the thoracic spine favors diffuse i diopathic skeletal hyperostosis. Small hiatus hernia. Partially visualized postoperative changes cons istent with prior gastric bypass. Please refer to the same day abdomen and pelvis CT for further eval uation of the abdominal structures. No mediastinal or hilar lymphadenopathy. No pleural effusions. Tr kim anterior pericardial effusion. Mild calcified plaque within the normal caliber thoracic aorta. Th e heart is normal in size. There are severe coronary artery calcifications, unchanged. No pneumothora x. The central airways are patent. A few small linear densities within the lungs posteriorly favor marino bsegmental atelectasis. No focal lung consolidations to suggest pneumonia. No evidence for pulmonary edema. IMPRESSION: 1. No acute traumatic process within the chest. 2. Old, healed bilateral anterior rib fractures are noted. 3. Small hiatus hernia and postoperative changes consistent with prior gastric bypass. This is better appreciated on the same day abdomen and pelvis CT. 4. Trace pericardial fluid. ACT 112: Negative or not required by law. Electronically signed by: Oscar Phillips M.D. 11/07/2020 3:19 PM
--- NOTE | 2020-11-07 15:21 | CT Scan Report ---
CT SCAN OF THE ABDOMEN AND PELVIS WITHOUT IV CONTRAST CLINICAL HISTORY: Epigastric abdominal pain. Vomiting. Reported history of gastric bypass. COMPARISON STUDY: Abdominal CT dated 09/14/2020. TECHNIQUE: CT scan of the abdomen and pelvis is performed from the lung bases to the proximal femora. Images are reviewed in the axial, sagittal, and coronal planes. IV contrast was not administered for this examination. Note that the examination was performed in suboptimal fashion without IV contrast. A dose lowering technique was utilized adhering to the principles of ALARA. CT DOSE: 1014.37 mGy.cm FINDINGS: Lung bases: The heart is enlarged and without pericardial effusion. The coronary arteries and mitral annulus are densely calcified. There is mild lower lobe bronchiectasis. The lung bases are clear noti ng bibasilar scarring/atelectasis. Liver: The unenhanced liver is normal in size, contour, and attenuation. There is mild central intrah epatic biliary ductal dilatation. Gallbladder: Surgically absent noting clips in the gallbladder fossa. Spleen: Normal in size and attenuation. 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 Pancreas: The unenhanced pancreas is atrophic and grossly unremarkable. Adrenal glands: Unremarkable. Kidneys: The unenhanced kidneys are atrophic and without hydronephrosis. There is a punctate nonobstr ucting left renal calculus. No right renal calculi are identified. There is no evidence of contour de forming renal mass lesion. Abdominal vasculature: The abdominal aorta is normal in course and caliber noting advanced atheroscle rotic calcification. Stomach and bowel: There is a small hiatal hernia. Postoperative changes consistent with the reported history of a Vernon-en-Y gastric bypass surgery. There is moderate constipation. No bowel obstruction is seen. There is moderate colonic diverticulosis without CT evidence of acute diverticulitis. The ap pendix is well-visualized and normal. Peritoneum: There is no intraperitoneal free air or abdominal ascites. Lymphadenopathy: None. Pelvic viscera: The prostate gland is markedly enlarged and heterogeneous, measuring 5.7 cm in transv erse diameter. There is median lobe hypertrophy. The bladder wall is thickened and trabeculated indic ating chronic outlet obstruction. Skeletal structures: The skeletal structures are osteopenic. There is [id number] lumbosacral sp ondylosis. Sclerotic change is noted in the sacroiliac joints. No lytic or blastic lesions are seen. Soft tissues: Foci of induration are present within the upper abdominal wall on image #102 and within the right mid abdominal wall on image #196. These are new from previous and likely related to recent surgery. IMPRESSION: 1. Postoperative change is consistent with a history of Vernon-en-Y gastric bypass surgery. No bowel ob struction is identified. 2. Punctate nonobstructing left renal calculus. 3. There is postoperative change from interval cholecystectomy. No abnormality is identified in the g allbladder fossa. 4. Moderate colonic diverticulosis without CT evidence of acute diverticulitis. 5. Marked prostatomegaly with evidence of chronic bladder outlet obstruction. 6. Moderate constipation. 7. Cardiomegaly. 8. Additional findings as above. ACT 112: Negative or not required by law. Electronically signed by: Guillermo Fitzgerald M.D. 11/07/2020 3:19 PM
[2020-11-07] MEDS: INSULIN ASPART 100 UNITS/ML 3 ML PEN SC SCH ×2 (17:27→20:46)
[2020-11-07] MEDS: DICLOFENAC SOD 1% GEL 100 GM TUBE EXT SCH ×2 (17:35→21:07)
[2020-11-07] MEDS ORDERED: DONEPEZIL HCL 10 MG TAB PO SCH (21:00)
[2020-11-08] MEDS: traMADol HCL 50 MG TABLET PO PRN (01:56)
[2020-11-08] MEDS ORDERED: MELATONIN 3 MG TAB PO PRN (02:06)
[2020-11-08 07:38] LABS: Basophils # (auto) 0.02 K/uL (0-0.2); Basophils % (auto) 0.4 %; Eosinophils # (auto) 0.21 K/uL (0-0.5); Eosinophils % (auto) 4.2 %; Hematocrit (blood only) 32.5 % (42-52); Hemoglobin 10.4 g/dL (14.0-18.0); Lymphocytes # (auto) 1.68 K/uL (1.2-3.4); Lymphocytes % (auto) 33.7 %; Mean Corpuscular Hemoglobin 29.5 pg (25-34); Mean Corpuscular Volume 92.3 fL (80-100); Monocytes # (auto) 0.43 K/uL (0.11-0.59); Monocytes % (auto) 8.6 %; Neutrophils # (auto) 2.65 K/uL (1.4-6.5); Neutrophils % (auto) 53.1 %; Platelet Count 212 K/uL (130-400); RDW Coefficient of Variation 16.5 % (11.5-14.5); RDW Standard Deviation 55.8 fL (36.4-46.3); Red Blood Count 3.52 M/uL (4.7-6.1); White Blood Count 4.99 K/uL (4.8-10.8)
[2020-11-08 08:05] LABS: Estimated Average Glucose 123 mg/dl; Hemoglobin A1C 5.9 % (4.5-5.6)
[2020-11-08] MEDS: SODIUM BICARBONATE 650 MG TAB PO SCH (08:05)
[2020-11-08] MEDS: PANTOprazole 40 MG TAB PO SCH (08:05)
[2020-11-08] MEDS: APIXABAN 2.5 MG TAB PO SCH (08:05)
[2020-11-08] MEDS: TAMSULOSIN HCL 0.4 MG CAP PO SCH (08:05)
[2020-11-08] MEDS: DICLOFENAC SOD 1% GEL 100 GM TUBE EXT SCH ×2 (08:06→13:16)
[2020-11-08 08:13] LABS: BUN Creatinine Ratio 13.8 (10-20); Calcium 8.3 mg/dl (8.5-10.1); Creatinine Clr Calc Pharmacy 33.1 ml/min; Est GFR (African American) 37.7 ml/min; Est GFR (Non-African American) 32.5 ml/min; Potassium 4.8 mmol/L (3.5-5.1)
[2020-11-08 08:34] LABS: Ferritin 11.6 ng/ml (8-388)
[2020-11-08 08:35] LABS: Folate (Folic Acid) > 20.00 ng/ml (>5.38); Vitamin B12 530 pg/ml (193-986)
--- NOTE | 2020-11-08 08:42 | Gastroenterology Progress Note ---
Date of Service November 08, 2020 Assessment & Plan (1) BRBPR (bright red blood per rectum): The patient is a pleasant 85-year-old male being evaluated by the GI service due to rectal bleeding. He reports that he has had some rectal bleeding with bright red blood. Has had several hemorrhoid operations. He has experienced no further rectal bleeding while inpatient. Plan at this time is outpatient colonoscopy with a 2-day prep due to history of gastric bypass operation. We will follow up with the patient in the office and coordinate care at discharge. Admission and Anticipated Discharge Date Admission Date: November 07, 2020 Supervising Physician Co-Signing Physician Notes I have seen and examined the patient. I agree with note above by RACHAEL Terrell except as noted below. HPI Pt with no further GI bleeding. PE Abdomen pos bs, soft, no guarding nor rebound A/P rectal bleeding---pt being DCed today. Outpt colonscopy as above. Will sign off. Subjective The patient is sitting upright in bed eating his breakfast. He reports that he is feeling pretty good this morning. He states he is feeling the best today that he has in a whole week. He reports that he has no abdominal pain. Denies any nausea or vomiting. He reports that he did have a bowel movement yesterday with no blood noted in the stool. He is hopeful that he can be discharged home today. The patient is a former smoker. He quit smoking in 1985. Denies any alcohol use. Denies use of recreational drugs including marijuana. He is and lives with his . 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 Review of Systems Review of Systems: All systems reviewed & are unremarkable except as noted in Subjective Physical Exam Respiratory: normal respiratory effort; no respiratory distress and no labored breathing Gastrointestinal (Abdomen): Inspection/Auscultation: abdomen normal to inspection and normal bowel sounds Percussion/Palpation: abdomen soft; abdomen nontender, no guarding and abdomen not rigid Results & Data ([facility]) Vital Signs (Past 12 Hours) Vital Signs Temp Pulse Pulse Pulse Resp BP Pulse Ox 11/08/20 07:38 36.6 C 76 18 130/77 96 11/08/20 07:30 76 11/08/20 07:20 36.5 C 91 H 18 152/96 H 96 11/08/20 02:52 36.3 C L 87 19 145/91 H 98 11/08/20 01:14 66 11/07/20 22:21 36.5 C 62 17 126/83 96 Laboratory Results - last 24 hr 11/07/20 11/07/20 11/07/20 11:27 15:14 16:44 WBC RBC Hgb Hct MCV MCH MCHC RDW Std Deviation RDW Coeff of Yinka Plt Count MPV Immature Gran % (Auto) Neut % (Auto) Lymph % (Auto) [place] % (Auto) Eos % (Auto) Baso % (Auto) Neut # (Auto) Lymph # (Auto) [place] # (Auto) Eos # (Auto) Baso # (Auto) Immature Gran # (Auto) Sodium Potassium Chloride Carbon Dioxide Anion Gap BUN Creatinine Est Cr Clr Drug Dosing Est GFR ( Amer) Est GFR (Non-Af Amer) BUN/Creatinine Ratio Glucose POC Glucose 93 103 H Estimat Average Glucose Hemoglobin A1c Calcium Iron TIBC Transferrin Transferrin % Sat Ferritin Troponin I < 0.015 Vitamin B12 Folate Stool Occult Bld Scrn 11/07/20 11/08/20 11/08/20 20:01 07:22 07:22 WBC 4.99 RBC 3.52 L Hgb 10.4 L Hct 32.5 L MCV 92.3 MCH 29.5 MCHC 32.0 RDW Std Deviation 55.8 H RDW Coeff of Yinka 16.5 H Plt Count 212 MPV 10.0 Immature Gran % (Auto) 0.0 Neut % (Auto) 53.1 Lymph % (Auto) 33.7 [place] % (Auto) 8.6 Eos % (Auto) 4.2 Baso % (Auto) 0.4 Neut # (Auto) 2.65 Lymph # (Auto) 1.68 [place] # (Auto) 0.43 Eos # (Auto) 0.21 Baso # (Auto) 0.02 Immature Gran # (Auto) 0.00 Sodium Potassium Chloride Carbon Dioxide Anion Gap BUN Creatinine Est Cr Clr Drug Dosing Est GFR ( Amer) Est GFR (Non-Af Amer) BUN/Creatinine Ratio Glucose POC Glucose 103 H Estimat Average Glucose 123 Hemoglobin A1c 5.9 H Calcium Iron TIBC Transferrin Transferrin % Sat Ferritin Troponin I Vitamin B12 Folate Stool Occult Bld Scrn 11/08/20 11/08/20 11/08/20 07:22 07:22 07:34 WBC RBC Hgb Hct MCV MCH MCHC RDW Std Deviation RDW Coeff of Yinka Plt Count MPV Immature Gran % (Auto) Neut % (Auto) Lymph % (Auto) [place] % (Auto) Eos % (Auto) Baso % (Auto) Neut # (Auto) Lymph # (Auto) [place] # (Auto) Eos # (Auto) Baso # (Auto) Immature Gran # (Auto) Sodium 142 Potassium 4.8 D Chloride 115 H Carbon Dioxide 22 Anion Gap 5.0 BUN 26 H Creatinine 1.86 H Est Cr Clr Drug Dosing 33.1 Est GFR ( Amer) 37.7 Est GFR (Non-Af Amer) 32.5 BUN/Creatinine Ratio 13.8 Glucose 86 POC Glucose 91 Estimat Average Glucose Hemoglobin A1c Calcium 8.3 L Iron 47 TIBC 330 Transferrin 259 Transferrin % Sat 13 L Ferritin 11.6 Troponin I Vitamin B12 530 Folate > 20.00 Stool Occult Bld Scrn 11/08/20 Unknown WBC RBC Hgb Hct MCV MCH MCHC RDW Std Deviation RDW Coeff of Yinka Plt Count MPV Immature Gran % (Auto) Neut % (Auto) Lymph % (Auto) [place] % (Auto) Eos % (Auto) Baso % (Auto) Neut # (Auto) Lymph # (Auto) [place] # (Auto) Eos # (Auto) Baso # (Auto) Immature Gran # (Auto) Sodium Potassium Chloride Carbon Dioxide Anion Gap BUN Creatinine Est Cr Clr Drug Dosing Est GFR ( Amer) Est GFR (Non-Af Amer) BUN/Creatinine Ratio Glucose POC Glucose Estimat Average Glucose Hemoglobin A1c Calcium Iron TIBC Transferrin Transferrin % Sat Ferritin Troponin I Vitamin B12 Folate Stool Occult Bld Scrn Negative
[2020-11-08] MEDS: CALCIUM 600MG + VIT D 400 IU TAB PO SCH (08:48)
[2020-11-08] MEDS: METOPROLOL TARTRATE 50 MG TAB PO SCH (08:53)
[2020-11-08] MEDS ORDERED: CALCITRIOL 0.25 MCG CAPSULE PO SCH (09:00)
[2020-11-08] MEDS: INSULIN ASPART 100 UNITS/ML 3 ML PEN SC SCH ×2 (09:40→13:07)
[2020-11-08] MEDS ORDERED: IRON SUCROSE 300 MG in SODIUM CHLORIDE 0.9% 250 ML IV ONE (10:00)
--- NOTE | 2020-11-08 14:51 | Discharge Summary ---
Date of Service November 08, 2020 Admission HPI Per Admitting Provider Cl Watson is an 85yo male presenting with left lower chest pain. Patient was in his usual state of health at home when he developed acute onset of stabbing chest pain in the lower left chest. Pain severe, 10/10, lasted only briefly then resolved. He had 10-12 episodes of this pain. His states that he became pale and diaphoretic and was calling out in pain and grabbing his side. Patient has had several falls in the last two weeks and has fallen onto his left side. He had seen the chiropractor for spinal manipulation last week. He has been having increased amount of flatulence Patient had similar presentation in the past - negative workup for cardiac etiology. Found with cholecystitis s/p cholecystectomy. No additional complaints. Specifically denies palpitations, dizziness, abdominal pain, nausea, vomiting, diarrhea, constipation. Principal Diagnosis Left sided chest wall pain-muscular strain Iron-deficiency anemia, BRBPR Syncope Discharge Exam Constitutional WD/WN, vitals as above Eyes + anicteric sclerae ENMT external ear and nose normal, oropharynx normal Neck trachea midline, no thyromegaly Respiratory normal respiratory effort, lungs clear to auscultation Cardiovascular RRR, no murmur, no edema Chest (Breasts) Chest: normal inspection of chest (+TTP over left chest wall) Gastrointestinal (Abdomen) normal bowel sounds, soft, nontender, no hepatosplenomegaly Musculoskeletal Extremities: extremities normal to inspection; no cyanosis and no clubbing Skin no rashes, warm and dry Neurologic moves all extremities and awake; no focal motor deficits Psychiatric A+Ox3, euthymic affect Lymphatic no lymphedema Discharge Data Allergies Allergy/AdvReac Type Severity Reaction Status Date / Time No Known Allergies Allergy Verified 11/06/20 23:31 Consultations 11/07/20 01:48 ED Decision to Admit Stat 11/07/20 12:50 Consult Gastroenterology Routine Ordered Studies 11/07/20 12:45 CT abd pelvis wo con Urgent CT chest diagnostic wo con Urgent 11/08/20 11/08/20 11/08/20 Range/Units Unknown 11:46 11:28 WBC (4.8-10.8) K/uL RBC (4.7-6.1) M/uL Hgb (14.0-18.0) g/dL Hct (42-52) % MCV (80-100) fL MCH (25-34) pg MCHC (32-36) g/dL RDW Std Deviation (36.4-46.3) fL RDW Coeff of Yinka (11.5-14.5) % Plt Count (130-400) K/uL MPV (7.4-10.4) fL Immature Gran % (Auto) % Neut % (Auto) % Lymph % (Auto) % Atkinson % (Auto) % Eos % (Auto) % Baso % (Auto) % Neut # (Auto) (1.4-6.5) K/uL Lymph # (Auto) (1.2-3.4) K/uL Atkinson # (Auto) (0.11-0.59) K/uL Eos # (Auto) (0-0.5) K/uL Baso # (Auto) (0-0.2) K/uL Immature Gran # (Auto) (0.00-0.02) K/uL Sodium (136-145) mmol/L Potassium (3.5-5.1) mmol/L Chloride (98-107) mmol/L Carbon Dioxide (21-32) mmol/L Anion Gap (3-11) BUN (7-18) mg/dl Creatinine (0.6-1.4) mg/dl Est Cr Clr Drug Dosing ml/min Est GFR ( Amer) ml/min Est GFR (Non-Af Amer) ml/min BUN/Creatinine Ratio (10-20) Glucose (70-99) mg/dl POC Glucose 101 H 70 (70-99) mg/dl Estimat Average Glucose mg/dl Hemoglobin A1c (4.5-5.6) % Calcium (8.5-10.1) mg/dl Iron (35-175) mcg/dl TIBC (250-450) mcg/dl Transferrin (200-360) mg/dl Transferrin % Sat (20-50) % Ferritin (8-388) ng/ml Troponin I (0-0.045) ng/ml Vitamin B12 (193-986) pg/ml Folate (>5.38) ng/ml Stool Occult Bld Scrn Negative (Negative) 11/08/20 11/08/20 11/08/20 Range/Units 11:26 07:34 07:22 WBC (4.8-10.8) K/uL RBC (4.7-6.1) M/uL Hgb (14.0-18.0) g/dL Hct (42-52) % MCV (80-100) fL MCH (25-34) pg MCHC (32-36) g/dL RDW Std Deviation (36.4-46.3) fL RDW Coeff of Yinka (11.5-14.5) % Plt Count (130-400) K/uL MPV (7.4-10.4) fL Immature Gran % (Auto) % Neut % (Auto) % Lymph % (Auto) % Atkinson % (Auto) % Eos % (Auto) % Baso % (Auto) % Neut # (Auto) (1.4-6.5) K/uL Lymph # (Auto) (1.2-3.4) K/uL Atkinson # (Auto) (0.11-0.59) K/uL Eos # (Auto) (0-0.5) K/uL Baso # (Auto) (0-0.2) K/uL Immature Gran # (Auto) (0.00-0.02) K/uL Sodium (136-145) mmol/L Potassium (3.5-5.1) mmol/L Chloride (98-107) mmol/L Carbon Dioxide (21-32) mmol/L Anion Gap (3-11) BUN (7-18) mg/dl Creatinine (0.6-1.4) mg/dl Est Cr Clr Drug Dosing ml/min Est GFR ( Amer) ml/min Est GFR (Non-Af Amer) ml/min BUN/Creatinine Ratio (10-20) Glucose (70-99) mg/dl POC Glucose 67 L* 91 (70-99) mg/dl Estimat Average Glucose mg/dl Hemoglobin A1c (4.5-5.6) % Calcium (8.5-10.1) mg/dl Iron (35-175) mcg/dl TIBC (250-450) mcg/dl Transferrin (200-360) mg/dl Transferrin % Sat (20-50) % Ferritin (8-388) ng/ml Troponin I (0-0.045) ng/ml Vitamin B12 530 (193-986) pg/ml Folate > 20.00 (>5.38) ng/ml Stool Occult Bld Scrn (Negative) 11/08/20 11/08/20 11/08/20 Range/Units 07:22 07:22 07:22 WBC 4.99 (4.8-10.8) K/uL RBC 3.52 L (4.7-6.1) M/uL Hgb 10.4 L (14.0-18.0) g/dL Hct 32.5 L (42-52) % MCV 92.3 (80-100) fL MCH 29.5 (25-34) pg MCHC 32.0 (32-36) g/dL RDW Std Deviation 55.8 H (36.4-46.3) fL RDW Coeff of Yinka 16.5 H (11.5-14.5) % Plt Count 212 (130-400) K/uL MPV 10.0 (7.4-10.4) fL Immature Gran % (Auto) 0.0 % Neut % (Auto) 53.1 % Lymph % (Auto) 33.7 % Atkinson % (Auto) 8.6 % Eos % (Auto) 4.2 % Baso % (Auto) 0.4 % Neut # (Auto) 2.65 (1.4-6.5) K/uL Lymph # (Auto) 1.68 (1.2-3.4) K/uL Atkinson # (Auto) 0.43 (0.11-0.59) K/uL Eos # (Auto) 0.21 (0-0.5) K/uL Baso # (Auto) 0.02 (0-0.2) K/uL Immature Gran # (Auto) 0.00 (0.00-0.02) K/uL Sodium 142 (136-145) mmol/L Potassium 4.8 D (3.5-5.1) mmol/L Chloride 115 H (98-107) mmol/L Carbon Dioxide 22 (21-32) mmol/L Anion Gap 5.0 (3-11) BUN 26 H (7-18) mg/dl Creatinine 1.86 H (0.6-1.4) mg/dl Est Cr Clr Drug Dosing 33.1 ml/min Est GFR ( Amer) 37.7 ml/min Est GFR (Non-Af Amer) 32.5 ml/min BUN/Creatinine Ratio 13.8 (10-20) Glucose 86 (70-99) mg/dl POC Glucose (70-99) mg/dl Estimat Average Glucose 123 mg/dl Hemoglobin A1c 5.9 H (4.5-5.6) % Calcium 8.3 L (8.5-10.1) mg/dl Iron 47 (35-175) mcg/dl TIBC 330 (250-450) mcg/dl Transferrin 259 (200-360) mg/dl Transferrin % Sat 13 L (20-50) % Ferritin 11.6 (8-388) ng/ml Troponin I (0-0.045) ng/ml Vitamin B12 (193-986) pg/ml Folate (>5.38) ng/ml Stool Occult Bld Scrn (Negative) 11/07/20 11/07/20 11/07/20 Range/Units 20:01 16:44 15:14 WBC (4.8-10.8) K/uL RBC (4.7-6.1) M/uL Hgb (14.0-18.0) g/dL Hct (42-52) % MCV (80-100) fL MCH (25-34) pg MCHC (32-36) g/dL RDW Std Deviation (36.4-46.3) fL RDW Coeff of Yinka (11.5-14.5) % Plt Count (130-400) K/uL MPV (7.4-10.4) fL Immature Gran % (Auto) % Neut % (Auto) % Lymph % (Auto) % Atkinson % (Auto) % Eos % (Auto) % Baso % (Auto) % Neut # (Auto) (1.4-6.5) K/uL Lymph # (Auto) (1.2-3.4) K/uL Atkinson # (Auto) (0.11-0.59) K/uL Eos # (Auto) (0-0.5) K/uL Baso # (Auto) (0-0.2) K/uL Immature Gran # (Auto) (0.00-0.02) K/uL Sodium (136-145) mmol/L Potassium (3.5-5.1) mmol/L Chloride (98-107) mmol/L Carbon Dioxide (21-32) mmol/L Anion Gap (3-11) BUN (7-18) mg/dl Creatinine (0.6-1.4) mg/dl Est Cr Clr Drug Dosing ml/min Est GFR ( Amer) ml/min Est GFR (Non-Af Amer) ml/min BUN/Creatinine Ratio (10-20) Glucose (70-99) mg/dl POC Glucose 103 H 103 H (70-99) mg/dl Estimat Average Glucose mg/dl Hemoglobin A1c (4.5-5.6) % Calcium (8.5-10.1) mg/dl Iron (35-175) mcg/dl TIBC (250-450) mcg/dl Transferrin (200-360) mg/dl Transferrin % Sat (20-50) % Ferritin (8-388) ng/ml Troponin I < 0.015 (0-0.045) ng/ml Vitamin B12 (193-986) pg/ml Folate (>5.38) ng/ml Stool Occult Bld Scrn (Negative) Hospital Course (1) Left-sided chest pain: 85yo C male presenting with intermittent episodes of stabbing pain of the left lateral chest. Atypical presentation for cardiac. He is directly tender to palpation over left lateral chest at site of pain and had a fall with scooter handle going into his ribs 1-2 weeks ago Perhaps having muscle strain or spasm from that. CXR, neg, Rib series with old left anterior rib fractures, Chest CT without contrast similar but nothing acute Do not suspect PE Now completely resolved after starting Voltaren gel-continue this on discharge Serial troponin negative x 3 ECHO without WMAs, preserved EF No events on tele-rate controlled Afib Stable for dc to home (2) BRBPR (bright red blood per rectum): C/o BRBPR the week prior to admission Has had 4 hemorrhoidectomies Consulted GI given hgb 9.7 and significant Fe deficiency (also has had gastric bypass surgery and likely has poor absorption of iron) -Plan to perform colonoscopy as an outpt with a 2 day prep given gastric bypass -hgb improved to 10 on day of discharge (3) Anemia: Iron deficiency, secondary to BRBPR as well as gastric bypass/poor absorption Gave Venofer 300mg IV x 1 Start ferrous sulfate tablets on discharge bid along with docusate He also had some dark stools previously a couple months ago but was taking Pepto Bismol at the [id number] if melena or not but had EGD in 08/2009 without ulcer Follow CBC as outpt (4) Syncope and collapse: had 2 brief episodes of syncope after having severe left sided chest pain prior to admission likely vasovagal no events on tele, ECHO with mild-mod MR otherwise normal No further eval needed (5) CKD (chronic kidney disease): Renal function near baseline -follow as outpt (6) BPH w urinary obs/LUTS: Chronic, s/p prostatectomy in [address] abd/pel here with enlarged prostate, heterongenous, 5.7cm in size, with evidence of chronic bladder outlet obstruction -Continue Flomax -f/u with PCP, Urology Discussed with pt and his (7) GERD (gastroesophageal reflux disease): Chronic. Stable -continue Omeprazole bid (8) Atrial fibrillation: Rate controlled. On Eliquis anticoagulation -Continue Metoprolol 50mg po BID -Continue Eliquis 2.5mg po BID (9) Type 2 diabetes mellitus: Blood sugar well controlled with diet -Fingersticks qHS, qAC (10) Mild cognitive impairment: Patient is oriented x 3, appropriately answering questions and following commands. -Continue Aricept 10mg po qHS (11) H/O gastric bypass: as above Dispo-doing much better, stable for dc to home Total Time Total Time Spent Total Time Spent (In Minutes): 35 min Total Time Includes: Examination of the Patient, Discharge Planning and Medication Reconciliation Discharge Plan Discharge Items Patient Disposition: Home - Self-Care Reason For Visit: LEFT CHEST PAIN Discharge Diagnosis: Left sided chest pain-muscle strain Iron deficiency anemia, Rectal bleeding Condition on Discharge: Good Activity: Resume your previous activity Non-emergency contact: Primary Care Provider and Lead Teller Call non-emergency contact if: you have any medication questions and your symptoms worsen Follow-up/Referrals: Spencer Baltazar MD [Primary Care Provider] - 11/15/20 2:00 pm (Follow up in 1-2 weeks.) Zachary Bryan [Physician] - (Dr. Bryan's office should be contacting you to arrange a colonoscopy.) Diet: Carb Consistent or DM2 and Heart Healthy Addtl Attending Provider Instructions: You were admitted with left sided chest pain and had a normal workup of the heart. Your pain was likely secondary to a muscular strain from your recent fall with your scooter. It was completely relieved with Voltaren gel applied four times a day. Please continue to apply the Voltaren gel for pain. You were also found to have a low blood count and low iron levels. You have been having some intermittent red blood from your bottom and will need a colonoscopy as an outpatient. You were given an iron transfusion here through the IV and should continue on oral iron tablets along with a stool softener. It is ok for you to continue on your blood thinner for now, but if you continue to have bleeding from your bottom, please call your doctor to let him know. Also, your prostate was noted to be very enlarged on your CT scan. Please follow up with your PCP regarding this matter. Pending Studies at Discharge: No Stand-Alone Forms: My [facility] Medications and DC Order Prescriptions: New ferrous sulfate 325 mg (65 mg iron) tablet 325 mg PO BID Qty: 60 RF: 0 docusate sodium 100 mg capsule 100 mg PO BID Qty: 60 RF: 0 diclofenac sodium [Voltaren Arthritis Pain] 1 % gel 2 g topical QID PRN (Reason: pain) Qty: 100 RF: 0 Continued triamcinolone acetonide 0.1 % cream 1 applic topical BID PRN (Reason: Itching) Qty: 454 RF: 0 Eliquis 2.5 mg tablet 2.5 mg PO BID RF: 0 sodium bicarbonate 650 mg tablet 650 mg PO BID Qty: 180 RF: 3 calcitriol 0.5 mcg capsule 0.5 mcg PO 3XWK Qty: 45 RF: 3 Men's Multivitamin 400-20-300 mcg Tablet 1 tab PO BID RF: 0 calcium carbonate-vitamin D3 [Calcium 500 + D] 500 mg(1,250mg) -200 unit tablet 1 tab PO BID RF: 0 vitamin B complex Tablet 1 tab PO QAM RF: 0 solifenacin [Vesicare] 10 mg tablet 10 mg PO QAM RF: 0 donepezil 10 mg tablet 10 mg PO HS RF: 0 sildenafil (pulm.hypertension) 20 mg tablet 20 mg PO UD PRN (Reason: Erectile Dysfunction) RF: 0 omeprazole 40 mg Capsule,Delayed Release(Dr/Ec) 40 mg PO BID RF: 0 tamsulosin 0.4 mg capsule 0.4 mg PO DAILY RF: 0 metoprolol tartrate 50 mg tablet 50 mg PO BID RF: 0 tramadol 50 mg tablet 50 mg PO BID PRN (Reason: Pain) RF: 0 Discharge Orders: Discharge Order (Routine); Ordered 11/08/20 Ordered By: Renetta Richards Admission Data Admit Date/Time: 11/07/20 02:30 Attending Provider: Renetta Richards Admit Provider: Mireya Carolina Primary Care Provider: Spencer Baltazar Other Providers: Mireya Carolina ; Zachary Bryan Other Interventions: Discharge Summary Assessment (RN) Last Done: 11/08/20 14:37 Coding Level of Care Code D/C Day Management >30 mins Diagnoses Left-sided chest pain R07.9 BRBPR (bright red blood per rectum) K62.5 Anemia D64.9 Syncope and collapse R55 CKD (chronic kidney disease) N18.9 Chronic kidney disease stage: unspecified stage BPH w urinary obs/LUTS GERD (gastroesophageal reflux disease) K21.9 Esophagitis presence: esophagitis presence not specified Atrial fibrillation I48.91 Atrial fibrillation type: unspecified Type 2 diabetes mellitus E11.9 Diabetes mellitus termite exterminator helper insulin use: without termite exterminator helper use Diabetes mellitus complication status: without complication Mild cognitive impairment G31.84 H/O gastric bypass Z98.84
== END 2020-11-08 16:04 | disposition home or self-care (01) ==
LOC: EDSEX → ED 22:54 → 2S 22:54 → SUATTDRO 11-07 02:30 → 2S 11-07 03:56 → 2W 11-07 13:02

== ENCOUNTER 2021-01-18 15:10 | Observation (INO) ==
[2021-01-18] MEDS ORDERED: ONDANSETRON INJ 2 MG/ML 2 ML VIAL IV STA (15:28)
[2021-01-18] MEDS ORDERED: SODIUM CHLORIDE 0.9% 1000ML 1,000 ML IV STA (15:28)
[2021-01-18] MEDS ORDERED: MoRPHine SULFATE 4 MG/ML 1 ML CARP\\VIAL IV STA (15:28)
[2021-01-18 15:40] LABS: Basophils # (auto) 0.02 K/uL (0-0.2); Basophils % (auto) 0.2 %; Eosinophils # (auto) 0.13 K/uL (0-0.5); Eosinophils % (auto) 1.4 %; Hematocrit (blood only) 40.9 % (42-52); Hemoglobin 13.5 g/dL (14.0-18.0); Immature Granulocytes # (auto) 0.01 K/uL (0.00-0.02); Immature Granulocytes % (auto) 0.1 %; Lymphocytes % (auto) 24.5 %; Mean Corpuscular Hemoglobin 31.5 pg (25-34); Mean Corpuscular Volume 95.6 fL (80-100); Mean Platelet Volume 10.5 fL (7.4-10.4); Monocytes # (auto) 0.73 K/uL (0.11-0.59); Monocytes % (auto) 8.1 %; Neutrophils # (auto) 5.88 K/uL (1.4-6.5); Neutrophils % (auto) 65.7 %; Platelet Count 199 K/uL (130-400); RDW Coefficient of Variation 17.5 % (11.5-14.5); RDW Standard Deviation 61.7 fL (36.4-46.3); Red Blood Count 4.28 M/uL (4.7-6.1); White Blood Count 8.97 K/uL (4.8-10.8)
[2021-01-18] MEDS ORDERED: MoRPHine SULFATE 2 MG/ML CARP ONE (15:41)
--- NOTE | 2021-01-18 15:55 | Emergency Department Note ---
History of Present Illness General Chief Complaint: Abdominal Pain Stated Complaint: AB PAIN Time Seen by Provider: 01/18/21 15:22 Source: EMS Mode of arrival: EMS Limitations: clinical acuity History of Present Illness Provider Complaint: abdominal pain Onset (ago): hour(s) Pain Consistency: constant Location: epigastric Radiation: none Migration to: no migration Severity: moderate Maximum Pain Intensity: 6 Quality: + stabbing Relieved By: + nothing Exacerbated By: + nothing Context: + possible food poisoning (Started after eating an egg this morning); no foreign travel, no recent antibiotic use or no history of similar episodes Associated Symptoms: + nausea and + vomiting; no diarrhea, no fever, no chills, no constipation, no hematuria, no anorexia and no headache Patient did present with concern for upper abdominal pain with associated nausea and 1 episode of vomiting this morning. The patient had complained of some dark stools but had been taking some iron. The patient had a questionable syncopal event in triage and was placed in a 1. Patient has any fevers chills or chest pains but has had this abdominal pain. Unknown is whether or not the patient had any head strike in triage. The patient is on Eliquis. Patient states he has had a recent bowel movement that has been loose in nature. Patient denies infectious symptoms. No meds taken prior to arrival patient's pain has been constant and in the epigastrium not made better or worse by anything particular. Home Medications Medication Instructions Recorded Confirmed Type omeprazole 40 mg capsule,delayed 40 mg PO BID 03/02/18 01/18/21 History release octtqlrb-vcrfdbog-zhgmb acid 400 1 tab PO BID 09/28/19 01/18/21 History mcg-vit K 20 mcg-lycop 300 mcg tablet (Men's Multivitamin) calcium carbonate 500 mg (1,250 1 tab PO BID tab 12/18/19 01/18/21 History mg)-vitamin D3 200 unit tablet (Calcium 500 + D) vitamin B complex 1 tab PO BID tab 12/18/19 01/18/21 History solifenacin 10 mg tablet (Vesicare) 10 mg PO QAM 02/23/20 01/18/21 History calcitriol 0.5 mcg capsule 0.5 mcg PO 3XWK #45 cap 07/16/20 01/18/21 Rx sodium bicarbonate 650 mg tablet 650 mg PO BID #180 tab 07/16/20 01/18/21 Rx apixaban 2.5 mg tablet (Eliquis) 2.5 mg PO BID 07/24/20 01/18/21 History triamcinolone acetonide 0.1 % 1 applic TOPICAL BID PRN #454 g 07/26/20 01/18/21 Rx topical cream tramadol 50 mg tablet 50 mg PO BID PRN 09/14/20 01/18/21 History metoprolol tartrate 50 mg tablet 50 mg PO BID 11/06/20 01/18/21 History tamsulosin 0.4 mg capsule 0.4 mg PO QAM 11/06/20 01/18/21 History ferrous sulfate 325 mg (65 mg 325 mg PO BID #60 tab 11/08/20 01/18/21 Rx iron) tablet memantine 5 mg tablet 5 mg PO BID #180 tab 12/12/20 01/18/21 Rx tadalafil 20 mg tablet 20 mg PO DAILY #10 tab 12/23/20 01/18/21 Rx Lactobacillus acidophilus 10 10,000 mmu cells PO QPM 01/18/21 01/18/21 History billion cell capsule (Probiotic) Allergies Allergy/AdvReac Type Severity Reaction Status Date / Time No Known Allergies Allergy Verified 01/18/21 15:52 Past Med/Surg History Medical History Acute cholecystitis Atrial fibrillation no cardioversions/ no pacer. treated with medication and follows with PCP BRB[facility] (bright red blood per rectum) Chronic kidney disease variable creatinines with baseline ~1.6-2.1 > follows with Dr. Vences Colitis Degenerative disc disease Dementia Diabetes mellitus, type 2 diet controlled Dysphagia "trouble keeping foods down" Fall walker and cane -- fall risk. History of bleeding ulcers History of BPH Hx of migraines Hx of sleep apnea no device Osteoarthritis Rectal bleed Small bowel obstruction due to adhesions Substernal chest pain resolved per pt Syncope and collapse Surgical History H/O gastric bypass 2004 H/O knee surgery "MULTIPLE KNEE SURGERIES"- R/L History of colonoscopy History of esophagogastroduodenoscopy (EGD) History of tooth extraction History of total knee replacement RT/LEFT History of total shoulder replacement LEFT Hx of circumcision 2 yrs ago Hx of transurethral resection of prostate S/P laparoscopic cholecystectomy (09/17/20) Laparoscopic Cholecystectomy with Cholangiogram with akira drain 09/17/20 Dr. 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 and A total of 10 systems reviewed and were otherwise negative Physical Exam Vital Signs: Vital Signs - 24 hr 01/18/21 15:28 01/18/21 15:51 Temperature 36.5 C Temperature Source Oral Pulse Rate 92 H Respiratory Rate 20 Blood Pressure 126/77 Blood Pressure Beba n 93 Pulse Oximetry 95 95 Oxygen Delivery Me thod Room Air Room Air Sepsis Recent Feve r Within 48 Hours No Sepsis New/Unexpla ined Change in Men amadou Status No Sepsis Action Take n by Nursing No Action Required Physical Exam: GENERAL: Well appearing, well nourished, NAD, non-toxic. EYE EXAM: Normal conjunctiva. PERRL, no anisocoria and EOM's grossly intact w/o pain. NECK: Supple, no nuchal rigidity, no adenopathy, non-tender. No signs of meningismus. LUNGS: Clear to auscultation. Normal chest wall mechanics. HEART: NSR, no MRG. ABDOMEN: Abdomen soft, non-tender, normo-active bowel sounds, no masses, no rebound or guarding. BACK: No CVA TTP. SKIN: No rashes and no bruising. UPPER EXTREMITIES: Upper extremities are grossly normal. LOWER EXTREMITIES: Grossly normal, no edema. NEURO EXAM: A&O x3, cranial nerves II-XII grossly intact, normal speech, moves all 4 extremities on command w/o issue. Course Course Cardiac monitoring: An order was placed for continuous cardiac monitoring. The monitor shows a rate of 75 with sinus rhythm. Administered Medications Pantoprazole Sodium 40 mg/ (Syringe) 10 mls @ 5 mls/min IV DAILY SHY Stop: 02/17/21 19:52 Last Admin: 01/19/21 09:04 Dose: 5 mls/min Documented by: [id number] Admin: 01/18/21 21:29 Dose: 5 mls/min Documented by: [id number] Dextrose/Sodium Chloride (D5w And Nss) 1,000 mls @ 70 mls/hr IV .[id number] SHY Stop: 02/18/21 06:14 Last Infusion: 01/19/21 17:35 Dose: 70 mls/hr Documented by: [id number] Admin: 01/19/21 14:35 Dose: 125 mls/hr Documented by: [id number] Infusion: 01/19/21 14:34 Dose: 0 mls/hr Documented by: [id number] Admin: 01/19/21 06:34 Dose: 125 mls/hr Documented by: [id number] Metoprolol Tartrate (Metoprolol Tartrate 1 Mg/Ml Vial) 5 mg IV Q4 SHY Stop: 02/17/21 19:59 Last Admin: 01/19/21 17:36 Dose: 5 mg Documented by: [id number] Admin: 01/19/21 12:00 Dose: Not Given Documented by: [id number] Admin: 01/19/21 09:08 Dose: 5 mg Documented by: [id number] Admin: 01/19/21 04:15 Dose: 5 mg Documented by: [id number] Admin: 01/19/21 00:20 Dose: 5 mg Documented by: [id number] Admin: 01/18/21 20:39 Dose: 5 mg Documented by: [id number] Discontinued Medications Sodium Chloride (Nss 1000ml) 1,000 mls @ 999 mls/hr IV .Q1H1M STA Stop: 01/18/21 16:28 Last Infusion: 01/18/21 16:55 Dose: 0 mls/hr Documented by: [id number] Admin: 01/18/21 15:44 Dose: 999 mls/hr Documented by: [id number] Lactated Ringer's (Lr) 1,000 mls @ 100 mls/hr IV .Q10H SHY Stop: 02/17/21 19:52 Last Admin: 01/19/21 06:36 Dose: Not Given Documented by: [id number] Infusion: 01/19/21 06:36 Dose: 0 mls/hr Documented by: [id number] Admin: 01/18/21 20:29 Dose: 100 mls/hr Documented by: [id number] Magnesium Sulfate/Dextrose (Magnesium Sulfate / D5w) 1 gm in 100 mls @ 50 mls/hr IV ONE ONE Stop: 01/19/21 14:59 Last Infusion: 01/19/21 15:00 Dose: 0 mls/hr Documented by: [id number] Admin: 01/19/21 13:00 Dose: 50 mls/hr Documented by: [id number] Morphine Sulfate (Morphine Sulfate 4 Mg/Ml 1 Ml Carp\\Vial) 2 mg IV NOW STA Stop: 01/18/21 15:29 Last Admin: 01/18/21 15:44 Dose: Not Given Documented by: [id number] Morphine Sulfate (Morphine Sulfate 2 Mg/Ml Carp) Confirm Administered Dose 2 mg .ROUTE .STK-MED ONE Stop: 01/18/21 15:42 Last Admin: 01/18/21 15:43 Dose: 2 mg Documented by: [id number] Ondansetron HCl (Ondansetron Inj 2 Mg/Ml 2 Ml Vial) 4 mg IV NOW STA Stop: 01/18/21 15:29 Last Admin: 01/18/21 15:43 Dose: 4 mg Documented by: [id number] Medical Decision Making Differential Diagnosis Appendicitis, testicular torsion, infections, diverticulitis, UTI, obstruction, mesenteric ischemia, aortic pathology, inflammatory bowel disease, renal colic, PUD, pancreatitis, biliary pathology, hernia, volvulus, constipation, as well as other pathologies. Medical Records Attestation: I reviewed the patient's medical records. Home Medications Current Medication List: was personally reviewed by me Laboratory Data Attestation: I reviewed the patient's lab results. Result diagrams: 01/19/21 06:48 01/19/21 06:48 Lab Results 01/18/21 01/18/21 01/18/21 Range/Units 15:27 15:30 15:30 WBC 8.97 (4.8-10.8) K/uL RBC 4.28 L (4.7-6.1) M/uL Hgb 13.5 L (14.0-18.0) g/dL POC Hgb (14.0-18.0) g/dl Hct 40.9 L (42-52) % POC Hct (42-52) % MCV 95.6 (80-100) fL MCH 31.5 (25-34) pg MCHC 33.0 (32-36) g/dL RDW Std Deviation 61.7 H (36.4-46.3) fL RDW Coeff of Yinka 17.5 H (11.5-14.5) % Plt Count 199 (130-400) K/uL MPV 10.5 H (7.4-10.4) fL Immature Gran % (Auto) 0.1 % Neut % (Auto) 65.7 % Lymph % (Auto) 24.5 % [place] % (Auto) 8.1 % Eos % (Auto) 1.4 % Baso % (Auto) 0.2 % Neut # (Auto) 5.88 (1.4-6.5) K/uL Lymph # (Auto) 2.20 (1.2-3.4) K/uL [place] # (Auto) 0.73 H (0.11-0.59) K/uL Eos # (Auto) 0.13 (0-0.5) K/uL Baso # (Auto) 0.02 (0-0.2) K/uL Immature Gran # (Auto) 0.01 (0.00-0.02) K/uL POC Sodium (135-144) mmol/L Sodium 141 (136-145) mmol/L POC Potassium (3.3-5.0) mmol/L Potassium 4.9 (3.5-5.1) mmol/L POC Chloride (101-112) mmol/L Chloride 116 H (98-107) mmol/L Carbon Dioxide 21 (21-32) mmol/L POC Total CO2 (24-31) mmol/L Anion Gap 4.0 (3-11) POC Anion Gap (16-25) mmol/L POC BUN (7-18) mg/dl BUN 28 H (7-18) mg/dl Creatinine 2.30 H (0.6-1.4) mg/dl POC Creatinine (0.6-1.3) mg/dl Est Cr Clr Drug Dosing 24.7 ml/min Est GFR ( Amer) 29.1 ml/min Est GFR (Non-Af Amer) 25.1 ml/min BUN/Creatinine Ratio 12.3 (10-20) Glucose 125 H (70-99) mg/dl POC Glucose 114 H (70-99) mg/dl POC Glucose (other) (70-99) mg/dl Calcium 8.1 L (8.5-10.1) mg/dl POC Ioniz Calcium Jb (1.12-1.32) mmol/l Total Bilirubin 0.4 (0.2-1) mg/dl AST 21 (15-37) U/L ALT 21 (12-78) U/L Alkaline Phosphatase 89 (45-117) U/L Troponin I < 0.015 (0-0.045) ng/ml Total Protein 6.2 L (6.4-8.2) gm/dl Albumin 2.6 L (3.4-5.0) gm/dl Globulin 3.6 (2.5-4.0) gm/dl Albumin/Globulin Ratio 0.7 L (0.9-2) Lipase 50 L (73-393) U/L Urine Color Urine Appearance (Clear) Urine pH (4.5-7.5) Ur Specific [place] (1.000-1.030) Urine Protein (Negative) Urine Glucose (UA) (Negative) Urine Ketones (Negative) Urine Blood (Negative) Urine Nitrite (Negative) Urine Bilirubin (Negative) Urine Urobilinogen (Negative) Ur Leukocyte Esterase (Negative) Urine WBC (Auto) (0-5) /hpf Urine RBC (Auto) (0-4) /hpf U Hyaline Cast (Auto) (0-5) /lpf U Epithel Cells (Auto) (0-5) /lpf Urine Bacteria (Auto) (Negative) COVID-19 Eval Order SARS-CoV-2 (PCR) (Negative) Blood Type Antibody Screen 01/18/21 01/18/21 01/18/21 Range/Units 15:40 15:45 15:45 WBC (4.8-10.8) K/uL RBC (4.7-6.1) M/uL Hgb (14.0-18.0) g/dL POC Hgb (14.0-18.0) g/dl Hct (42-52) % POC Hct (42-52) % MCV (80-100) fL MCH (25-34) pg MCHC (32-36) g/dL RDW Std Deviation (36.4-46.3) fL RDW Coeff of Yinka (11.5-14.5) % Plt Count (130-400) K/uL MPV (7.4-10.4) fL Immature Gran % (Auto) % Neut % (Auto) % Lymph % (Auto) % [place] % (Auto) % Eos % (Auto) % Baso % (Auto) % Neut # (Auto) (1.4-6.5) K/uL Lymph # (Auto) (1.2-3.4) K/uL [place] # (Auto) (0.11-0.59) K/uL Eos # (Auto) (0-0.5) K/uL Baso # (Auto) (0-0.2) K/uL Immature Gran # (Auto) (0.00-0.02) K/uL POC Sodium (135-144) mmol/L Sodium (136-145) mmol/L POC Potassium (3.3-5.0) mmol/L Potassium (3.5-5.1) mmol/L POC Chloride (101-112) mmol/L Chloride (98-107) mmol/L Carbon Dioxide (21-32) mmol/L POC Total CO2 (24-31) mmol/L Anion Gap (3-11) POC Anion Gap (16-25) mmol/L POC BUN (7-18) mg/dl BUN (7-18) mg/dl Creatinine (0.6-1.4) mg/dl POC Creatinine (0.6-1.3) mg/dl Est Cr Clr Drug Dosing ml/min Est GFR ( Amer) ml/min Est GFR (Non-Af Amer) ml/min BUN/Creatinine Ratio (10-20) Glucose (70-99) mg/dl POC Glucose (70-99) mg/dl POC Glucose (other) (70-99) mg/dl Calcium (8.5-10.1) mg/dl POC Ioniz Calcium Jb (1.12-1.32) mmol/l Total Bilirubin (0.2-1) mg/dl AST (15-37) U/L ALT (12-78) U/L Alkaline Phosphatase (45-117) U/L Troponin I (0-0.045) ng/ml Total Protein (6.4-8.2) gm/dl Albumin (3.4-5.0) gm/dl Globulin (2.5-4.0) gm/dl Albumin/Globulin Ratio (0.9-2) Lipase (73-393) U/L Urine Color Urine Appearance (Clear) Urine pH (4.5-7.5) Ur Specific [place] (1.000-1.030) Urine Protein (Negative) Urine Glucose (UA) (Negative) Urine Ketones (Negative) Urine Blood (Negative) Urine Nitrite (Negative) Urine Bilirubin (Negative) Urine Urobilinogen (Negative) Ur Leukocyte Esterase (Negative) Urine WBC (Auto) (0-5) /hpf Urine RBC (Auto) (0-4) /hpf U Hyaline Cast (Auto) (0-5) /lpf U Epithel Cells (Auto) (0-5) /lpf Urine Bacteria (Auto) (Negative) COVID-19 Eval Order Covid19 at [facility] SARS-CoV-2 (PCR) NEGATIVE (Negative) Blood Type O Positive Antibody Screen NEGATIVE 01/18/21 01/18/21 Range/Units 15:48 16:35 WBC (4.8-10.8) K/uL RBC (4.7-6.1) M/uL Hgb (14.0-18.0) g/dL POC Hgb 13.3 L (14.0-18.0) g/dl Hct (42-52) % POC Hct 39 L (42-52) % MCV (80-100) fL MCH (25-34) pg MCHC (32-36) g/dL RDW Std Deviation (36.4-46.3) fL RDW Coeff of Yinka (11.5-14.5) % Plt Count (130-400) K/uL MPV (7.4-10.4) fL Immature Gran % (Auto) % Neut % (Auto) % Lymph % (Auto) % [place] % (Auto) % Eos % (Auto) % Baso % (Auto) % Neut # (Auto) (1.4-6.5) K/uL Lymph # (Auto) (1.2-3.4) K/uL [place] # (Auto) (0.11-0.59) K/uL Eos # (Auto) (0-0.5) K/uL Baso # (Auto) (0-0.2) K/uL Immature Gran # (Auto) (0.00-0.02) K/uL POC Sodium 141 (135-144) mmol/L Sodium (136-145) mmol/L POC Potassium 5.0 (3.3-5.0) mmol/L Potassium (3.5-5.1) mmol/L POC Chloride 110 (101-112) mmol/L Chloride (98-107) mmol/L Carbon Dioxide (21-32) mmol/L POC Total CO2 20 L (24-31) mmol/L Anion Gap (3-11) POC Anion Gap 17.0 (16-25) mmol/L POC BUN 32 H (7-18) mg/dl BUN (7-18) mg/dl Creatinine (0.6-1.4) mg/dl POC Creatinine 2.5 H (0.6-1.3) mg/dl Est Cr Clr Drug Dosing ml/min Est GFR ( Amer) ml/min Est GFR (Non-Af Amer) ml/min BUN/Creatinine Ratio (10-20) Glucose (70-99) mg/dl POC Glucose (70-99) mg/dl POC Glucose (other) 132 H (70-99) mg/dl Calcium (8.5-10.1) mg/dl POC Ioniz Calcium Jb 1.12 (1.12-1.32) mmol/l Total Bilirubin (0.2-1) mg/dl AST (15-37) U/L ALT (12-78) U/L Alkaline Phosphatase (45-117) U/L Troponin I (0-0.045) ng/ml Total Protein (6.4-8.2) gm/dl Albumin (3.4-5.0) gm/dl Globulin (2.5-4.0) gm/dl Albumin/Globulin Ratio (0.9-2) Lipase (73-393) U/L Urine Color Dark Yellow Urine Appearance Clear (Clear) Urine pH 5.0 (4.5-7.5) Ur Specific [place] 1.024 (1.000-1.030) Urine Protein Trace H (Negative) Urine Glucose (UA) Negative (Negative) Urine Ketones Trace H (Negative) Urine Blood Negative (Negative) Urine Nitrite Negative (Negative) Urine Bilirubin Negative (Negative) Urine Urobilinogen Negative (Negative) Ur Leukocyte Esterase 1+ H (Negative) Urine WBC (Auto) 5-10 H (0-5) /hpf Urine RBC (Auto) 0-4 (0-4) /hpf U Hyaline Cast (Auto) 1-5 (0-5) /lpf U Epithel Cells (Auto) >30 H (0-5) /lpf Urine Bacteria (Auto) Negative (Negative) COVID-19 Eval Order SARS-CoV-2 (PCR) (Negative) Blood Type Antibody Screen Imaging Data Radiologist's Impression: Abdomen/Pelvis CT 01/18/21 15:[address] WITHOUT CONTRAST CT DOSE: 1092.31 mGycm HISTORY: Acute upper abdominal pain with syncope ?syncope, upper ab pain; h/o RYGB TECHNIQUE: Multiaxial CT images of the abdomen and pelvis were performed without contrast. A dose lowering technique was utilized adhering to the principles of ALARA. COMPARISON STUDY: CT abdomen and pelvis 11/07/2020 FINDINGS: Mild bibasilar atelectasis. No pneumatosis or pneumoperitoneum. The unenhanced spleen, pancreas and adrenal glands are unremarkable. Cholecystectomy. Biliary ductal dilation is likely on a postoperative basis. Unremarkable liver. Mildly atrophic right kidney. 8 mm hypodensity of the left kidney is too small to characterize however suggestive of a probable cyst. Unc hanged punctate calcification of the superior pole left kidney. No ureteral calculi or hydronephrosis. Prostamegaly. Urinary bladder wall thickening with partial distention. Atherosclerosis of the aorta. No adenopathy. Small hiatal hernia. Prior Vernon-en-Y gastric bypass. There is moderate gaseous distention with air-fluid level of the excluded stomach. Numerous dilated air and fluid-filled loops of small bowel are noted within the abdomen and pelvis with transition decompressed loop of bowel noted within the left midabdomen on image 152 series 3. This is distal to the jejunal jejunal anastomosis. No obstructing lesion identified. Mild wall thickening of the distal rectum is likely secondary to partial distention. Colonic diverticulosis. Normal appendix. There are areas of mild interloop edema without significant bowel wall thickening. Degenerative changes of the spine, pelvis and hips. Unchanged superior endplate compression deformity at L3. Cortical irregularity involving a few anterior left-sided ribs suggestive of chronic fractures. IMPRESSION: 1. High-grade small bowel obstruction with transition point involving a loop of small bowel within the anterior left paracentral mid abdomen, likely secondary to small bowel adhesions. There is mild interloop edema without significant bowel wall thickening. 2. Prior Vernon-en-Y gastric bypass. 3. Unchanged punctate left renal calcification. 4. Colonic diverticulosis. 5. Prostamegaly. 6. Additional findings as above. ACT 112: Negative or not required by law. The above report was generated using voice recognition software. It may contain grammatical, syntax or spelling errors. Electronically signed by: Sixto Armenta M.D. 01/18/2021 5:01 PM Chest X-Ray 01/18/21 15:28 XR chest 1V portable HISTORY: 85 years-old Male ab pain acute generalized abdominal pain COMPARISON: Chest and rib radiographs 11/07/2020 TECHNIQUE: AP view of the chest FINDINGS: Cardiac silhouette is mildly enlarged. No pneumothorax, pleural effusion, airspace consolidation or overt pulmonary edema. Chronic blunting of the costophrenic angles. Degenerative changes of the spine and right shoulder. Reverse left shoulder total joint arthroplasty. IMPRESSION: No acute process. ACT 112: Negative or not required by law. The above report was generated using voice recognition software. It may contain grammatical, syntax or spelling errors. Electronically signed by: Sixto Armenta M.D. 01/18/2021 4:[address] 01/18/21 15:54 CT head/brain wo con CLINICAL HISTORY: 85 years-old Male with ?fall. Acute head injury status post fall TECHNIQUE: Multiple axial CT images of the head were obtained without contrast. A dose lowering technique was utilized adhering to the principles of ALARA. CT DOSE: 729.78 mGycm COMPARISON: 02/29/2020 FINDINGS: No acute intracranial hemorrhage, midline shift, intracranial mass, hydrocepha raeann, territorial ischemia or abnormal extra-axial collection. Age-related involutional changes. White matter hypodensities suggestive of chronic microvascular ischemic disease. Senescent basal ganglia with cerebral vascular calcifications. The calvarium is intact. The paranasal sinuses, mastoid air cells, and middle ear cavities are clear. IMPRESSION: No acute intracranial abnormality. ACT 112: Negative or not required by law. The above report was generated using voice recognition software. It may contain grammatical, syntax or spelling errors. Electronically signed by: Sixto Armenta M.D. 01/18/2021 4:23 PM ECG Data Attestation: I personally reviewed and interpreted this ECG as follows: Additional Comments: A. fib, rate of 98, normal QRS, normal axis, Q-wave in lead III. MDM Narrative Patient was seen due to concern for possible syncope and upper abdominal pain. The patient did have a CT of the head and CT abdomen pelvis completed Noncon as the patient does have prior history of CKD. The patient was treated symptomatically. Patient had complained of dark stools blood bank was ordered but the patient is on iron supplements. The patient has a normal white counts with a hemoglobin of 13.5. Patient's kidney function is at virtual baseline. Patient CT head negative. The patient's chest x-ray does not show any acute process. The patient's CT abdomen pelvis did show concern for high-grade small bowel obstruction. No other concerning findings at this time. I did speak with the on-call general surgery team Rosana Brown PA-C the patient was evaluated by Dr. Walker. I subsequently did speak with RACHAEL Mcmanus and the patient was admitted by Dr. Rao. Impression & Plan SBO (small bowel obstruction), Abdominal pain, Syncope Discharge Plan Visit Data Chief Complaint: Abdominal Pain Stated Complaint: AB PAIN ED Provider: Daniel Sexton Discharge Problem: SBO (small bowel obstruction), Abdominal pain, Syncope Patient Disposition: Admitted As Inpatient Discharge Instructions Interventions: ED Discharge Assessment Last Done: 01/18/21 19:15
[2021-01-18 15:58] LABS: Alanine Aminotransferase 21 U/L (12-78); Albumin Level 2.6 gm/dl (3.4-5.0); Aspartate Aminotransferase 21 U/L (15-37); BUN Creatinine Ratio 12.3 (10-20); Blood Urea Nitrogen 28 mg/dl (7-18); Calcium 8.1 mg/dl (8.5-10.1); Carbon Dioxide 21 mmol/L (21-32); Chloride 116 mmol/L (98-107); Creatinine Clr Calc Pharmacy 24.7 ml/min; Est GFR (African American) 29.1 ml/min; Est GFR (Non-African American) 25.1 ml/min; Glucose 125 mg/dl (70-99); Lipase 50 U/L (73-393); Potassium 4.9 mmol/L (3.5-5.1); Sodium 141 mmol/L (136-145)
[2021-01-18 16:02] LABS: iSTAT Creatinine 2.5 mg/dl (0.6-1.3); iSTAT Hemoglobin 13.3 g/dl (14.0-18.0); iSTAT Ionized Calcium 1.12 mmol/l (1.12-1.32)
[2021-01-18 16:03] LABS: Albumin Globulin Ratio 0.7 (0.9-2); Alkaline Phosphatase 89 U/L (45-117); Bilirubin,Total 0.4 mg/dl (0.2-1); Globulin 3.6 gm/dl (2.5-4.0); Total Protein 6.2 gm/dl (6.4-8.2); Troponin I < 0.015 ng/ml (0-0.045)
--- NOTE | 2021-01-18 16:05 | XRay Report ---
XR chest 1V portable HISTORY: 85 years-old Male ab pain acute generalized abdominal pain COMPARISON: Chest and rib radiographs 11/07/2020 TECHNIQUE: AP view of the chest FINDINGS: Cardiac silhouette is mildly enlarged. No pneumothorax, pleural effusion, airspace consolidation or o vert pulmonary edema. Chronic blunting of the costophrenic angles. Degenerative changes of the spine and right shoulder. Reverse left shoulder total joint arthroplasty. IMPRESSION: No acute process. ACT 112: Negative or not required by law. The above report was generated using voice recognition software. It may contain grammatical, syntax o r spelling errors. Electronically signed by: Sixto Armenta M.D. 01/18/2021 4:04 PM
--- NOTE | 2021-01-18 16:31 | CT Scan Report ---
CT head/brain wo con CLINICAL HISTORY: 85 years-old Male with ?fall. Acute head injury status post fall TECHNIQUE: Multiple axial CT images of the head were obtained without contrast. A dose lowering tech nique was utilized adhering to the principles of ALARA. CT DOSE: 729.78 mGycm COMPARISON: 02/29/2020 FINDINGS: No acute intracranial hemorrhage, midline shift, intracranial mass, hydrocephalus, territorial ischem ia or abnormal extra-axial collection. Age-related involutional changes. White matter hypodensities s uggestive of chronic microvascular ischemic disease. Senescent basal ganglia with cerebral vascular c alcifications. The calvarium is intact. The paranasal sinuses, mastoid air cells, and middle ear cavities are clear . IMPRESSION: No acute intracranial abnormality. ACT 112: Negative or not required by law. The above report was generated using voice recognition software. It may contain grammatical, syntax o r spelling errors. Electronically signed by: Sixto Armenta M.D. 01/18/2021 4:23 PM
[2021-01-18 16:44] LABS: Appearance Urine Clear (Clear); Bacteria Urine Automated Negative (Negative); Bilirubin Urine Negative (Negative); Blood Urine Negative (Negative); Color Urine Dark Yellow; Epithelial Cell Urine Auto >30 /lpf (0-5); Glucose Urine UA Negative (Negative); Ketones Urine Trace (Negative); Leukocyte Esterase Urine 1+ (Negative); Nitrite Urine Negative (Negative); Protein Urine Trace (Negative); RBC Urine Automated 0-4 /hpf (0-4); Specific Gravity Urine 1.024 (1.000-1.030); Urobilinogen Urine Negative (Negative)
--- NOTE | 2021-01-18 17:02 | CT Scan Report ---
ABDOMEN AND PELVIS CT WITHOUT CONTRAST CT DOSE: 1092.31 mGycm HISTORY: Acute upper abdominal pain with syncope ?syncope, upper ab pain; h/o RYGB TECHNIQUE: Multiaxial CT images of the abdomen and pelvis were performed without contrast. A dose lo wering technique was utilized adhering to the principles of ALARA. COMPARISON STUDY: CT abdomen and pelvis 11/07/2020 FINDINGS: Mild bibasilar atelectasis. No pneumatosis or pneumoperitoneum. The unenhanced spleen, panc reas and adrenal glands are unremarkable. Cholecystectomy. Biliary ductal dilation is likely on a pos toperative basis. Unremarkable liver. Mildly atrophic right kidney. 8 mm hypodensity of the left kidn ey is too small to characterize however suggestive of a probable cyst. Unchanged punctate calcificati on of the superior pole left kidney. No ureteral calculi or hydronephrosis. Prostamegaly. Urinary viktor dder wall thickening with partial distention. Atherosclerosis of the aorta. No adenopathy. Small hiatal hernia. Prior Vernon-en-Y gastric bypass. There is moderate gaseous distention with air-fl uid level of the excluded stomach. Numerous dilated air and fluid-filled loops of small bowel are not ed within the abdomen and pelvis with transition decompressed loop of bowel noted within the left mid abdomen on image 152 series 3. This is distal to the jejunal jejunal anastomosis. No obstructing lesi on identified. Mild wall thickening of the distal rectum is likely secondary to partial distention. C olonic diverticulosis. Normal appendix. There are areas of mild interloop edema without significant b owel wall thickening. Degenerative changes of the spine, pelvis and hips. Unchanged superior endplate compression deformity at L3. Cortical irregularity involving a few anterior left-sided ribs suggestive of chronic fracture s. IMPRESSION: 1. High-grade small bowel obstruction with transition point involving a loop of small bowel within th e anterior left paracentral mid abdomen, likely secondary to small bowel adhesions. There is mild int erloop edema without significant bowel wall thickening. 2. Prior Vernon-en-Y gastric bypass. 3. Unchanged punctate left renal calcification. 4. Colonic diverticulosis. 5. Prostamegaly. 6. Additional findings as above. ACT 112: Negative or not required by law. The above report was generated using voice recognition software. It may contain grammatical, syntax o r spelling errors. Electronically signed by: Sixto Armenta M.D. 01/18/2021 5:01 PM
--- NOTE | 2021-01-18 18:16 | History & Physical Report ---
Date of Service January 18, 2021 Assessment & Plan (1) Small bowel obstruction due to adhesions: Plan: Likely secondary to adhesions - NPO - Hold on NGT at this time as he is soft, not tympanic, no vomiting and history of Vernon-en-Y gastric bypass - IVF LR @125ml/hour - Follow serial abdominal exams - General Surgery consulted- appreciate assistance - No ABX at this time, no perforation - Hold Apixaban - KUB in morning (2) Atrial fibrillation: Plan: Rate controlled - NPO- Metoprolol 5mg IV q4 hour scheduled - Hold Apixaban overnight - re-evaluate in morning - EF in November: EF 55-60% with no wall motion abnormalities. 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 ASSISTANT- follow while in house (7) Mild cognitive impairment: Plan: Follows with neurology- - Per note in 12/25 was placed on Memantine and Aricept - (8) Dementia: Plan: As above (9) H/O gastric bypass: Plan: Continue b complex and iron supplementation when back to PO (10) Anemia: Plan: Recently placed on iron supplementation - continue- colonoscopy recently completed - normal with hemorrhoids (11) SUE (obstructive sleep apnea): Plan: Smattering of SUE throughout record- patient says he does not wear CPAP at home - with his RSVP on ECHO with Afib, this may be beneficial to re-visit - Patient had lost significant weight since his GBYpass so may have been stopped at that time- again unsure History of Present Illness Chief Complaint: Abdominal pain Primary Care Provider: Spencer Baltazar MD 85 YOM with past medical history of: Vernon en Y gastric bypass, falls, cholecystectomy, CKD, DJD, DM, GI bleed, FE deficient anemia, migraines, OA, SUE, BPH with LUTS, afib (on Apixaban 2.5mg PO BID), dementia, ataxic gait. Patient comes to the [facility] today for acute on set of mid to right sided abdominal pain that was sharp in nature. This started early this morning and the pain progressed to 7-8/10. This was associated with some nausea without vomiting. The pain was described as sharp and crampy pain that did not radiate. The patient last ate this morning with eggs for breakfast, but noticed that his appetite just wasn't there since yesterday evening. Patient denies any diarrhea or constipation within the past week. Patient most recently had a Colonoscope in December for anemia and blood per rectum. Colonoscopy was normal at that time with internal hemorrhoids, he denies any further rectal bleeding or blood in his stools. In the EMD the patient had a CT scan of his head performed that was negative for acute process, he had a CT scan of his abdomen performed, which revealed a High grade small bowel obstruction with transition point involving small bowel, and a CXR that was negative for acute process. Patient will be admitted for bowel rest, IVF, pain control. As he is currently soft and not distended without vomiting will hold on NGT decompression at this time. The patient did fall in the waiting room in the EMD, today out of his wheel chair hitting his left shoulder and his reports that he may have bumped his head, prompting the above CT scan of the head. He also reports that he fell a couple of days ago falls on to his tailbone, which has been tender. No instability noted in the pelvis, full ROM of the shoulders, and no cervical tenderness noted. Allergies Allergy/AdvReac Type Severity Reaction Status Date / Time No Known Allergies Allergy Verified 01/18/21 15:52 Home Medications Medication Instructions Recorded Confirmed Type omeprazole 40 mg capsule,delayed 40 mg PO BID 03/02/18 01/18/21 History release wxbsyfjk-ojltbylh-huihc acid 400 1 tab PO BID 09/28/19 01/18/21 History mcg-vit K 20 mcg-lycop 300 mcg tablet (Men's Multivitamin) calcium carbonate 500 mg (1,250 1 tab PO BID tab 12/18/19 01/18/21 History mg)-vitamin D3 200 unit tablet (Calcium 500 + D) vitamin B complex 1 tab PO BID tab 12/18/19 01/18/21 History solifenacin 10 mg tablet (Vesicare) 10 mg PO QAM 02/23/20 01/18/21 History calcitriol 0.5 mcg capsule 0.5 mcg PO 3XWK #45 cap 07/16/20 01/18/21 Rx sodium bicarbonate 650 mg tablet 650 mg PO BID #180 tab 07/16/20 01/18/21 Rx apixaban 2.5 mg tablet (Eliquis) 2.5 mg PO BID 07/24/20 01/18/21 History triamcinolone acetonide 0.1 % 1 applic TOPICAL BID PRN #454 g 07/26/20 01/18/21 Rx topical cream tramadol 50 mg tablet 50 mg PO BID PRN 09/14/20 01/18/21 History metoprolol tartrate 50 mg tablet 50 mg PO BID 11/06/20 01/18/21 History tamsulosin 0.4 mg capsule 0.4 mg PO QAM 11/06/20 01/18/21 History ferrous sulfate 325 mg (65 mg 325 mg PO BID #60 tab 11/08/20 01/18/21 Rx iron) tablet memantine 5 mg tablet 5 mg PO BID #180 tab 12/12/20 01/18/21 Rx tadalafil 20 mg tablet 20 mg PO DAILY #10 tab 12/23/20 01/18/21 Rx Lactobacillus acidophilus 10 10,000 mmu cells PO QPM 01/18/21 01/18/21 History billion cell capsule (Probiotic) Past Med/Surg History Medical History (Updated 01/18/21 @ 19:47 by RACHAEL Reis) Acute cholecystitis Atrial fibrillation no cardioversions/ no pacer. treated with medication and follows with PCP BRBPR (bright red blood per rectum) Chronic kidney disease variable creatinines with baseline ~1.6-2.1 > follows with Dr. Vences Colitis Degenerative disc disease Dementia Diabetes mellitus, type 2 diet controlled Dysphagia "trouble keeping foods down" Fall walker and cane -- fall risk. History of bleeding ulcers History of BPH Hx of migraines Hx of sleep apnea no device Osteoarthritis Rectal bleed Small bowel obstruction due to adhesions Substernal chest pain resolved per pt Syncope and collapse Surgical History H/O gastric bypass 2004 H/O knee surgery "MULTIPLE KNEE SURGERIES"- R/L History of colonoscopy History of esophagogastroduodenoscopy (EGD) History of tooth extraction History of total knee replacement RT/LEFT History of total shoulder replacement LEFT Hx of circumcision 2 yrs ago Hx of transurethral resection of prostate S/P laparoscopic cholecystectomy (09/17/20) Laparoscopic Cholecystectomy with Cholangiogram with akira drain 09/17/20 Dr. 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 Beliefs That Will Affect Care: None marital status: Current Living Situation: Spouse Current Living Situation Comment: Ex Feels Safe at Home: Yes Assistive Devices: Denture - Upper, Denture - Lower, Glasses and Walker Review of Systems Review of Systems: REVIEW OF SYSTEMS: Constitutional: No fever, sweats or chills Eyes: No diplopia, no worsening or blurred vision ENT: normal hearing, no trouble swallowing Respiratory: No cough, sputum, dyspnea at rest or on exertion Cardiovascular: No chest pain, tightness or palpitations Abdomen: (+) abdominal pain, NO nausea, vomiting, diarrhea or constipation Musculoskeletal: No joint pain, calf pain, swelling Neurologic: (+) abnormal gain, No weakness, numbness/tingling, or balance problems Psychiatric: No anxiety or depression Skin: No rash or itch Physical Exam Physical Exam: PHYSICAL EXAM: General: awake, alert, no apparent distress Head: Normocephalic, atraumatic, no hematoma or tenderness ENT: PERRLA, EOMI, no pharyngeal exudate, mucous membranes moist Neuro: AAO x 3, speech clear and appropriate, strength intact bilaterally 5/5, sensation intact and equal all extremities and dermatomes, no pronator drift Chest: equal rise and fall of the chest, no accessory muscle use, no heaves or thrills, Clear to auscultation, on room air, Cardiac: irregular rate and rhythm, telemetry reviewed- afib, skin warm dry, cap refill <3 seconds, peripheral pulses +2 no JVD, no murmur, no edema GI: NABS x 4 quadrants, soft, nontender to palpation, no rebound, guarding or tenderness : Spontaneously voiding, no pain, no CVA tenderness, MSK: No fall from height, no cervical pain on palpation, Full ROM of motion of neck, Full ROM to left shoulder, no numbness/tingling, no pelvic instability. Psych: Normal mood and affect Skin: scratch to right forearm, old bruising to legs, Results & Data Results & Data ([facility]) Vital Signs (Past 12 Hours) Vital Signs Temp Pulse Pulse Resp BP BP Pulse Ox 01/18/21 16:32 83 18 114/74 99 01/18/21 16:01 87 26 H 99/72 L 98 01/18/21 15:51 95 01/18/21 15:28 36.5 C 92 H 20 126/77 95 Laboratory Results Abnormal lab results 01/18/21 01/18/21 01/18/21 Range/Units 15:27 15:30 15:30 RBC 4.28 L (4.7-6.1) M/uL Hgb 13.5 L (14.0-18.0) g/dL POC Hgb (14.0-18.0) g/dl Hct 40.9 L (42-52) % POC Hct (42-52) % RDW Std Deviation 61.7 H (36.4-46.3) fL RDW Coeff of Yinka 17.5 H (11.5-14.5) % MPV 10.5 H (7.4-10.4) fL [place] # (Auto) 0.73 H (0.11-0.59) K/uL Chloride 116 H (98-107) mmol/L POC Total CO2 (24-31) mmol/L POC BUN (7-18) mg/dl BUN 28 H (7-18) mg/dl Creatinine 2.30 H (0.6-1.4) mg/dl POC Creatinine (0.6-1.3) mg/dl Glucose 125 H (70-99) mg/dl POC Glucose 114 H (70-99) mg/dl POC Glucose (other) (70-99) mg/dl Calcium 8.1 L (8.5-10.1) mg/dl Total Protein 6.2 L (6.4-8.2) gm/dl Albumin 2.6 L (3.4-5.0) gm/dl Albumin/Globulin Ratio 0.7 L (0.9-2) Lipase 50 L (73-393) U/L Urine Protein (Negative) Urine Ketones (Negative) Ur Leukocyte Esterase (Negative) Urine WBC (Auto) (0-5) /hpf U Epithel Cells (Auto) (0-5) /lpf 01/18/21 01/18/21 Range/Units 15:48 16:35 RBC (4.7-6.1) M/uL Hgb (14.0-18.0) g/dL POC Hgb 13.3 L (14.0-18.0) g/dl Hct (42-52) % POC Hct 39 L (42-52) % RDW Std Deviation (36.4-46.3) fL RDW Coeff of Yinka (11.5-14.5) % MPV (7.4-10.4) fL [place] # (Auto) (0.11-0.59) K/uL Chloride (98-107) mmol/L POC Total CO2 20 L (24-31) mmol/L POC BUN 32 H (7-18) mg/dl BUN (7-18) mg/dl Creatinine (0.6-1.4) mg/dl POC Creatinine 2.5 H (0.6-1.3) mg/dl Glucose (70-99) mg/dl POC Glucose (70-99) mg/dl POC Glucose (other) 132 H (70-99) mg/dl Calcium (8.5-10.1) mg/dl Total Protein (6.4-8.2) gm/dl Albumin (3.4-5.0) gm/dl Albumin/Globulin Ratio (0.9-2) Lipase (73-393) U/L Urine Protein Trace H (Negative) Urine Ketones Trace H (Negative) Ur Leukocyte Esterase 1+ H (Negative) Urine WBC (Auto) 5-10 H (0-5) /hpf U Epithel Cells (Auto) >30 H (0-5) /lpf Diagnostic Findings Abdomen/Pelvis CT 01/18/21 15:[address] WITHOUT CONTRAST CT DOSE: 1092.31 mGycm HISTORY: Acute upper abdominal pain with syncope ?syncope, upper ab pain; h/o RYGB TECHNIQUE: Multiaxial CT images of the abdomen and pelvis were performed without contrast. A dose lowering technique was utilized adhering to the principles of ALARA. COMPARISON STUDY: CT abdomen and pelvis 11/07/2020 FINDINGS: Mild bibasilar atelectasis. No pneumatosis or pneumoperitoneum. The unenhanced spleen, pancreas and adrenal glands are unremarkable. Cholecystectomy. Biliary ductal dilation is likely on a postoperative basis. Unremarkable liver. Mildly atrophic right kidney. 8 mm hypodensity of the left kidney is too small to characterize however suggestive of a probable cyst. Unchanged punctate calcification of the superior pole left kidney. No ureteral calculi or hydronephrosis. Prostamegaly. Urinary bladder wall thickening with partial distention. Atherosclerosis of the aorta. No adenopathy. Small hiatal hernia. Prior Vernon-en-Y gastric bypass. There is moderate gaseous distention with air-fluid level of the excluded stomach. Numerous dilated air and fluid-filled loops of small bowel are noted within the abdomen and pelvis with transition decompressed loop of bowel noted within the left midabdomen on image 152 series 3. This is distal to the jejunal jejunal anastomosis. No obstructing lesion identified. Mild wall thickening of the distal rectum is likely secondary to partial distention. Colonic diverticulosis. Normal appendix. There are areas of mild interloop edema without significant bowel wall thickening. Degenerative changes of the spine, pelvis and hips. Unchanged superior endplate compression deformity at L3. Cortical irregularity involving a few anterior left-sided ribs suggestive of chronic fractures. IMPRESSION: 1. High-grade small bowel obstruction with transition point involving a loop of small bowel within the anterior left paracentral mid abdomen, likely secondary to small bowel adhesions. There is mild interloop edema without significant bowel wall thickening. 2. Prior Vernon-en-Y gastric bypass. 3. Unchanged punctate left renal calcification. 4. Colonic diverticulosis. 5. Prostamegaly. 6. Additional findings as above. ACT 112: Negative or not required by law. The above report was generated using voice recognition software. It may contain grammatical, syntax or spelling errors. Electronically signed by: Sixto Armenta M.D. 01/18/2021 5:01 PM Chest X-Ray 01/18/21 15:28 XR chest 1V portable HISTORY: 85 years-old Male ab pain acute generalized abdominal pain COMPARISON: Chest and rib radiographs 11/07/2020 TECHNIQUE: AP view of the chest FINDINGS: Cardiac silhouette is mildly enlarged. No pneumothorax, pleural effusion, airspace consolidation or overt pulmonary edema. Chronic blunting of the costophrenic angles. Degenerative changes of the spine and right shoulder. Reverse left shoulder total joint arthroplasty. IMPRESSION: No acute process. ACT 112: Negative or not required by law. The above report was generated using voice recognition software. It may contain grammatical, syntax or spelling errors. Electronically signed by: Sixto Aremnta M.D. 01/18/2021 4:[address] 01/18/21 15:54 CT head/brain wo con CLINICAL HISTORY: 85 years-old Male with ?fall. Acute head injury status post fall TECHNIQUE: Multiple axial CT images of the head were obtained without contrast. A dose lowering technique was utilized adhering to the principles of ALARA. CT DOSE: 729.78 mGycm COMPARISON: 02/29/2020 FINDINGS: No acute intracranial hemorrhage, midline shift, intracranial mass, hydrocephalus, territorial ischemia or abnormal extra-axial collection. Age- related involutional changes. White matter hypodensities suggestive of chronic microvascular ischemic disease. Senescent basal ganglia with cerebral vascular calcifications. The calvarium is intact. The paranasal sinuses, mastoid air cells, and middle ear cavities are clear. IMPRESSION: No acute intracranial abnormality. ACT 112: Negative or not required by law. The above report was generated using voice recognition software. It may contain grammatical, syntax or spelling errors. Electronically signed by: Sixto Armenta M.D. 01/18/2021 4:23 PM Medications Administered Home Medications omeprazole 40 mg capsule,delayed release 40 mg PO BID 03/02/18 [History Confirmed 01/18/21] kzmddzxl-rfbnonck-asbst acid 400 mcg-vit K 20 mcg-lycop 300 mcg tablet (Men's Multivitamin) 1 tab PO BID 09/28/19 [History Confirmed 01/18/21] calcium carbonate 500 mg (1,250 mg)-vitamin D3 200 unit tablet (Calcium 500 + D) 1 tab PO BID tab 12/18/19 [History Confirmed 01/18/21] vitamin B complex 1 tab PO BID tab 12/18/19 [History Confirmed 01/18/21] solifenacin 10 mg tablet (Vesicare) 10 mg PO QAM 02/23/20 [History Confirmed 01/18/21] calcitriol 0.5 mcg capsule 0.5 mcg PO 3XWK #45 cap 07/16/20 [Rx Confirmed 01/18/21] sodium bicarbonate 650 mg tablet 650 mg PO BID #180 tab 07/16/20 [Rx Confirmed 01/18/21] apixaban 2.5 mg tablet (Eliquis) 2.5 mg PO BID 07/24/20 [History Confirmed 01/18/21] triamcinolone acetonide 0.1 % topical cream 1 applic TOPICAL BID PRN #454 g 07/26/20 [Rx Confirmed 01/18/21] tramadol 50 mg tablet 50 mg PO BID PRN 09/14/20 [History Confirmed 01/18/21] metoprolol tartrate 50 mg tablet 50 mg PO BID 11/06/20 [History Confirmed 01/18/21] tamsulosin 0.4 mg capsule 0.4 mg PO QAM 11/06/20 [History Confirmed 01/18/21] ferrous sulfate 325 mg (65 mg iron) tablet 325 mg PO BID #60 tab 11/08/20 [Rx Confirmed 01/18/21] memantine 5 mg tablet 5 mg PO BID #180 tab 12/12/20 [Rx Confirmed 01/18/21] tadalafil 20 mg tablet 20 mg PO DAILY #10 tab 12/23/20 [Rx Confirmed 01/18/21] Lactobacillus acidophilus 10 billion cell capsule (Probiotic) 10,000 mmu cells PO QPM 01/18/21 [History Confirmed 01/18/21] ECG Additional Comments: Atrial fibrillation Low voltage QRS Abnormal ECG When compared with ECG of 07-NOV-2020 04:57, QT has shortened Code Status & VTE Plan Code Status CODE: FULL VTE: SCD's, Supervising Physician Co-Signing Physician Notes 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 He is a history of Vernon-en-Y gastric bypass surgery, atrial fibrillation, cholecystectomy. Feeling improved after receiving IV morphine in the ER as well as IV fluids. History and ROS reviewed as above Vitals reviewed Gen: AAOx3, NAD HEENT: Anicteric sclerae, EOMI CV: RRR no mgr nl S1S2 Pulm: CTAB no wcr Abd: Hypoactive bowel sounds, soft, minimal tenderness palpation in the mid abd ominal region without guarding or rebound tenderness, no hernias noted Ext: No edema Skin: No rashes, warm/dry Neuro: Full strength throughout, some mild memory issues Laboratory values and radiology studies reviewed 85-year-old male here with high-grade small obstruction likely secondary to adhesions given history of gastric bypass surgery and cholecystectomy. Could also be from internal hernia. Seems to be improving already No NG tube needed at this time and also with Vernon-en-Y making NG tube placement more risky. His anemia significantly improved since his GI bleed a few months ago. Appreciate surgery consultation Pain medication, keep n.p.o., IV fluids, IV Protonix IV metoprolol to replace p.o. Follow KUB in the morning PG Care Time/CCT Total # of Minutes Spent Total Time Spent with Patient: Total time spent is greater than 50% in coordination of care (as documented) at patient's floor/unit and/or counseling patient: Coding Level of Care Code 52267 Initial Inpt Care Lvl 3 Diagnoses Small bowel obstruction due to adhesions K56.50 CKD (chronic kidney disease) N18.9 Chronic kidney disease stage: unspecified stage BPH w urinary obs/LUTS GERD (gastroesophageal reflux disease) K21.9 Esophagitis presence: esophagitis presence not specified Atrial fibrillation I48.91 Atrial fibrillation type: unspecified Type 2 diabetes mellitus E11.9 Diabetes mellitus complication status: without complication 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 insulin use: without assisted use Mild cognitive impairment G31.84 Dementia F03.90 Dementia behavioral disturbance: without behavioral disturbance Dementia type: unspecified type H/O gastric bypass Z98.84 Anemia D64.9 SUE (obstructive sleep apnea) G47.33 (1) Type 2 diabetes mellitus Diabetes mellitus complication status: without complication Diabetes mellitus assisted insulin use: without assisted use Qualified Code(s): E11.9 - Type 2 diabetes mellitus without complications (2) Atrial fibrillation Atrial fibrillation type: unspecified Qualified Code(s): I48.91 - Unspecified atrial fibrillation (3) Dementia Dementia behavioral disturbance: without behavioral disturbance Dementia type: unspecified type Qualified Code(s): F03.90 - Unspecified dementia without behavioral disturbance (4) CKD (chronic kidney disease) Chronic kidney disease stage: unspecified stage Qualified Code(s): N18.9 - Chronic kidney disease, unspecified (5) GERD (gastroesophageal reflux disease) Esophagitis presence: esophagitis presence not specified Qualified Code(s): K21.9 - Gastro-esophageal reflux disease without esophagitis
--- NOTE | 2021-01-18 18:43 | Surgery Consultation ---
Date of Consultation January 18, 2021 Assessment & Plan (1) Small bowel obstruction due to adhesions: 85 y/o male with h/o gastric bypass, now with sbo. Feels better, likely adhesions but internal hernia less likely. Non operative management for now NPO, IVF's, hold elliquis no NG tube for now (usually not helpful in post bradley-en-y patients surgery will follow (2) H/O gastric bypass: (3) Atrial fibrillation: (4) CKD (chronic kidney disease): (5) Type 2 diabetes mellitus: History of Present Illness History of Present Illness 85 y/o male presents with abdominal pain. History of non resectional open bradley en y gastric bypass for weight loss several years ago in [place]. Lost 170 lbs since surgery, has had panniculectomy. Laparoscopic cholecystectomy by Dr. Atkinson in September. Pain started yesterday, some nausea but no vomiting. Feels better right now. Has been having diarrhea for several months. CT showed SBO. On Elliquis for afib. Patient fell out of wheelchair in waiting room, CT head negative. Allergies Allergy/AdvReac Type Severity Reaction Status Date / Time No Known Allergies Allergy Verified 01/18/21 15:52 Home Medications Medication Instructions Recorded Confirmed Type omeprazole 40 mg capsule,delayed 40 mg PO BID 03/02/18 01/18/21 History release amoieqjy-jidpwkuz-qaluy acid 400 1 tab PO BID 09/28/19 01/18/21 History mcg-vit K 20 mcg-lycop 300 mcg tablet (Men's Multivitamin) calcium carbonate 500 mg (1,250 1 tab PO BID tab 12/18/19 01/18/21 History mg)-vitamin D3 200 unit tablet (Calcium 500 + D) vitamin B complex 1 tab PO BID tab 12/18/19 01/18/21 History solifenacin 10 mg tablet (Vesicare) 10 mg PO QAM 02/23/20 01/18/21 History calcitriol 0.5 mcg capsule 0.5 mcg PO 3XWK #45 cap 07/16/20 01/18/21 Rx sodium bicarbonate 650 mg tablet 650 mg PO BID #180 tab 07/16/20 01/18/21 Rx apixaban 2.5 mg tablet (Eliquis) 2.5 mg PO BID 07/24/20 01/18/21 History triamcinolone acetonide 0.1 % 1 applic TOPICAL BID PRN #454 g 07/26/20 01/18/21 Rx topical cream tramadol 50 mg tablet 50 mg PO BID PRN 09/14/20 01/18/21 History metoprolol tartrate 50 mg tablet 50 mg PO BID 11/06/20 01/18/21 History tamsulosin 0.4 mg capsule 0.4 mg PO QAM 11/06/20 01/18/21 History ferrous sulfate 325 mg (65 mg 325 mg PO BID #60 tab 11/08/20 01/18/21 Rx iron) tablet memantine 5 mg tablet 5 mg PO BID #180 tab 12/12/20 01/18/21 Rx tadalafil 20 mg tablet 20 mg PO DAILY #10 tab 12/23/20 01/18/21 Rx Lactobacillus acidophilus 10 10,000 mmu cells PO QPM 01/18/21 01/18/21 History billion cell capsule (Probiotic) Patient History Medical History (Updated 01/18/21 @ 18:41 by Bret Walker DO, FACS) Acute cholecystitis Atrial fibrillation no cardioversions/ no pacer. treated with medication and follows with PCP BRBPR (bright red blood per rectum) Chronic kidney disease variable creatinines with baseline ~1.6-2.1 > follows with Dr. Vences Colitis Degenerative disc disease Dementia Diabetes mellitus, type 2 diet controlled Dysphagia "trouble keeping foods down" Fall walker and cane -- fall risk. History of bleeding ulcers History of BPH Hx of migraines Hx of sleep apnea no device Osteoarthritis Rectal bleed Small bowel obstruction due to adhesions Substernal chest pain resolved per pt Syncope and collapse Surgical History H/O gastric bypass 2004 H/O knee surgery "MULTIPLE KNEE SURGERIES"- R/L History of colonoscopy History of esophagogastroduodenoscopy (EGD) History of tooth extraction History of total knee replacement RT/LEFT History of total shoulder replacement LEFT Hx of circumcision 2 yrs ago Hx of transurethral resection of prostate S/P laparoscopic cholecystectomy (09/17/20) Laparoscopic Cholecystectomy with Cholangiogram with akira drain 09/17/20 Dr. Atkinson Family History Sister Family history of diabetes mellitus Social History Smoking Status: Never smoker Tobacco Type: Cigarettes Second Hand Exposure: No; Hx Alcohol Use: No Hx Substance Use: No Preferred Language: Luxembourgish Communication Ability: Effective Navigation Teacher Required: No Beliefs That Will Affect Care: None marital status: Current Living Situation: Spouse Current Living Situation Comment: Ex Feels Safe at Home: Yes Assistive Devices: Denture - Upper, Denture - Lower, Glasses and Walker Review of Systems Review of Systems: All systems reviewed & are unremarkable except as noted in HPI & below Physical Exam Constitutional: WD/WN, vitals as above Gastrointestinal (Abdomen): Inspection/Auscultation: + abdominal surgical scar; abdomen not distended Percussion/Palpation: + abdomen tender (mild diffuse ttp) and abdomen soft; no guarding and no hernia Results & Data ([facility]) Vital Signs (Past 12 Hours) Vital Signs Temp Pulse Pulse Resp BP BP Pulse Ox 01/18/21 18:00 101 H 18 99 01/18/21 17:30 112/71 01/18/21 17:00 82 15 102/73 97 01/18/21 16:32 83 18 114/74 99 01/18/21 16:30 91 H 19 114/74 98 01/18/21 16:01 87 26 H 99/72 L 98 01/18/21 16:00 87 24 99/72 L 94 01/18/21 15:51 95 01/18/21 15:30 86 22 126/77 98 01/18/21 15:28 36.5 C 92 H 20 126/77 95 Diagnostic Findings ABDOMEN AND PELVIS CT WITHOUT CONTRAST CT DOSE: 1092.31 mGycm HISTORY: Acute upper abdominal pain with syncope ?syncope, upper ab pain; h/o RYGB TECHNIQUE: Multiaxial CT images of the abdomen and pelvis were performed without contrast. A dose lowering technique was utilized adhering to the principles of ALARA. COMPARISON STUDY: CT abdomen and pelvis 11/07/2020 FINDINGS: Mild bibasilar atelectasis. No pneumatosis or pneumoperitoneum. The unenhanced spleen, pancreas and adrenal glands are unremarkable. Cholecystectomy. Biliary ductal dilation is likely on a postoperative basis. Unremarkable liver. Mildly atrophic right kidney. 8 mm hypodensity of the left kidney is too small to characterize however suggestive of a probable cyst. Unchanged punctate calcification of the superior pole left kidney. No ureteral calculi or hydronephrosis. Prostamegaly. Urinary bladder wall thickening with partial distention. Atherosclerosis of the aorta. No adenopathy. Small hiatal hernia. Prior Bradley-en-Y gastric bypass. There is moderate gaseous distention with air-fluid level of the excluded stomach. Numerous dilated air and fluid-filled loops of small bowel are noted within the abdomen and pelvis with transition decompressed loop of bowel noted within the left midabdomen on image 152 series 3. This is distal to the jejunal jejunal anastomosis. No obstructing lesion identified. Mild wall thickening of the distal rectum is likely secondary to partial distention. Colonic diverticulosis. Normal appendix. There are areas of mild interloop edema without significant bowel wall thickening. Degenerative changes of the spine, pelvis and hips. Unchanged superior endplate compression deformity at L3. Cortical irregularity involving a few anterior left-sided ribs suggestive of chronic fractures. IMPRESSION: 1. High-grade small bowel obstruction with transition point involving a loop of small bowel within the anterior left paracentral mid abdomen, likely secondary to small bowel adhesions. There is mild interloop edema without significant bowel wall thickening. 2. Prior Bradley-en-Y gastric bypass. 3. Unchanged punctate left renal calcification. 4. Colonic diverticulosis. 5. Prostamegaly. 6. Additional findings as above. ACT 112: Negative or not required by law. PG Care Time/CCT Total # of Minutes Spent Total Time Spent with Patient: Total time spent is greater than 50% in coordination of care (as documented) at patient's floor/unit and/or counseling patient: Coding Level of Care Code 21147 Initial Inpt Care Lvl 2 Diagnoses Small bowel obstruction due to adhesions K56.50 H/O gastric bypass Z98.84 Atrial fibrillation I48.91 Atrial fibrillation type: unspecified CKD (chronic kidney disease) N18.9 Chronic kidney disease stage: unspecified stage Type 2 diabetes mellitus E11.9 Diabetes mellitus exterminator insulin use: without exterminator use Diabetes mellitus complication status: without complication (1) Atrial fibrillation Atrial fibrillation type: unspecified Qualified Code(s): I48.91 - Unspecified atrial fibrillation (2) CKD (chronic kidney disease) Chronic kidney disease stage: unspecified stage Qualified Code(s): N18.9 - Chronic kidney disease, unspecified (3) Type 2 diabetes mellitus Diabetes mellitus exterminator insulin use: without exterminator use Diabetes mellitus complication status: without complication Qualified Code(s): E11.9 - Type 2 diabetes mellitus without complications
[2021-01-18] MEDS ORDERED: ONDANSETRON INJ 2 MG/ML 2 ML VIAL IV PRN (19:53)
[2021-01-18] MEDS ORDERED: MoRPHine SULFATE 2 MG/ML CARP IV PRN (19:53)
[2021-01-18] MEDS: LACTATED RINGER'S 1,000 ML IV SCH (20:29)
[2021-01-18] MEDS: METOPROLOL TARTRATE 1 MG/ML VIAL IV SCH (20:39)
[2021-01-18] MEDS: PANTOprazole 40 MG in SYRINGE 0 ML IV SCH (21:29)
[2021-01-19] MEDS: METOPROLOL TARTRATE 1 MG/ML VIAL IV SCH ×6 (00:20→21:04)
[2021-01-19] MEDS: D5W AND NSS 1,000 ML IV SCH ×3 (06:34→22:39)
[2021-01-19] MEDS: LACTATED RINGER'S 1,000 ML IV SCH (06:36)
[2021-01-19 07:35] LABS: Basophils # (auto) 0.01 K/uL (0-0.2); Basophils % (auto) 0.2 %; Eosinophils # (auto) 0.15 K/uL (0-0.5); Eosinophils % (auto) 2.6 %; Hematocrit (blood only) 34.1 % (42-52); Immature Granulocytes # (auto) 0.01 K/uL (0.00-0.02); Immature Granulocytes % (auto) 0.2 %; Lymphocytes # (auto) 1.33 K/uL (1.2-3.4); Lymphocytes % (auto) 22.7 %; Mean Corpuscular Hemoglobin 30.9 pg (25-34); Mean Corpuscular Hgb Conc 32.3 g/dL (32-36); Mean Corpuscular Volume 95.8 fL (80-100); Mean Platelet Volume 10.9 fL (7.4-10.4); Monocytes # (auto) 0.58 K/uL (0.11-0.59); Monocytes % (auto) 9.9 %; Neutrophils # (auto) 3.77 K/uL (1.4-6.5); Neutrophils % (auto) 64.4 %; Platelet Count 171 K/uL (130-400); RDW Coefficient of Variation 17.5 % (11.5-14.5); RDW Standard Deviation 61.7 fL (36.4-46.3); Red Blood Count 3.56 M/uL (4.7-6.1); White Blood Count 5.85 K/uL (4.8-10.8)
[2021-01-19 08:06] LABS: BUN Creatinine Ratio 16.9 (10-20); Est GFR (African American) 42.9 ml/min; Magnesium 1.8 mg/dl (1.8-2.4); Potassium 4.3 mmol/L (3.5-5.1)
--- NOTE | 2021-01-19 08:11 | XRay Report ---
KUB HISTORY: Small bowel obstruction evaluate SBO COMPARISON: CT abdomen and pelvis 01/18/2021 FINDINGS: Persistent small bowel obstruction with dilated air-filled loops of small bowel measuring u p to 6.9 cm. No significant change from comparison. Cholecystectomy. No renal calculi. No ureteral ca lculi. No pneumoperitoneum or pneumatosis. No fracture. IMPRESSION: Persistent small bowel obstruction. ACT 112: Negative or not required by law. The above report was generated using voice recognition software. It may contain grammatical, syntax o r spelling errors. Electronically signed by: Sixto Armenta M.D. 01/19/2021 8:10 AM
[2021-01-19] MEDS: PANTOprazole 40 MG in SYRINGE 0 ML IV SCH (09:04)
--- NOTE | 2021-01-19 09:13 | Surgery Progress Note ---
Date of Service January 19, 2021 Assessment & Plan (1) Small bowel obstruction due to adhesions: Plan: h/o bradley en y gastric bypass, now with sbo. Clinically better, but KUB with persistent sbo. continue non operative management npo for now, possible clears tonight or tomorrow if continues to improve clinically hold Eliquis possible contrasted study in next few days. surgery will follow Admission and Anticipated Discharge Date Admission Date: January 18, 2021 Subjective h/o bradley en y gastric bypass, admitted with sbo. Feels better, passing flatus but no bm. NO abdominal pain, no nausea. Physical Exam Constitutional: WD/WN, vitals as above Gastrointestinal (Abdomen): normal bowel sounds, soft, nontender, no hepatosplenomegaly Inspection/Auscultation: + abdominal surgical scar; abdomen not distended Results & Data ([facility]) Vital Signs (Past 12 Hours) Vital Signs Temp Pulse Pulse Resp BP BP Pulse Ox 01/19/21 09:08 78 104/66 01/19/21 07:40 36.8 C 78 18 104/66 97 01/19/21 04:15 83 115/76 01/19/21 04:10 83 115/76 01/19/21 02:43 36.5 C 95 H 18 102/66 97 01/19/21 02:37 118/76 01/19/21 00:20 82 95/64 L 01/19/21 00:11 82 95/64 L 01/18/21 22:59 36.5 C 78 17 99/62 L 98 Diagnostic Findings KUB HISTORY: Small bowel obstruction evaluate SBO COMPARISON: CT abdomen and pelvis 01/18/2021 FINDINGS: Persistent small bowel obstruction with dilated air-filled loops of small bowel measuring up to 6.9 cm. No significant change from comparison. Cholecystectomy. No renal calculi. No ureteral calculi. No pneumoperitoneum or pneumatosis. No fracture. IMPRESSION: Persistent small bowel obstruction. PG Care Time/CCT Total # of Minutes Spent Total Time Spent with Patient: Total time spent is greater than 50% in coordination of care (as documented) at patient's floor/unit and/or counseling patient: Coding Level of Care Code 27750 Inpt Consult Level 3 Diagnoses Small bowel obstruction due to adhesions K56.50
--- NOTE | 2021-01-19 09:42 | Electrocardiogram Report ---
Test Reason : Blood Pressure : / mmHG Vent. Rate : 098 BPM Atrial Rate : 104 BPM P-R Int : 000 ms QRS Dur : 078 ms QT Int : 304 ms P-R-T Axes : 000 -17 041 degrees QTc Int : 388 ms Atrial fibrillation Low voltage QRS Abnormal ECG When compared with ECG of 07-NOV-2020 04:57, No significant change Confirmed by Josue Pa ([id number]) on 01/19/2021 9:41:29 AM Referred By: SELF Confirmed By:Josue Pa
[2021-01-19] MEDS ORDERED: MAGNESIUM SULFATE / D5W 1 GM/100 ML BAG IV ONE (13:00)
--- NOTE | 2021-01-19 17:26 | Hospitalist Progress Note ---
Date of Service January 19, 2021 Assessment & Plan (1) Small bowel obstruction due to adhesions: Plan: Likely secondary to adhesions-KUB this AM with persistent SBO but throughout the day had improvement No NGT placed as he was soft, not tympanic, no vomiting and history of Vernon-en-Y gastric bypass Now no abd pain, no nausea, had 2 large BMs -adv diet to clears today, further tomorrow if continues to improve repeat KUB in AM continue IVFs but decrease rate to 70mL/hr - General Surgery consulted- appreciate assistance - No ABX at this time, no perforation - continue to hold Apixaban - KUB in morning (2) Atrial fibrillation: Plan: Rate controlled -continue Metoprolol 5mg IV q4 hour scheduled with hold parameters while not taking po metoprolol - continue to hold Apixaban in case of need for surgical intervention but can restart likely tomorrow if continues to improve - EF in November: EF 55-60% with no wall motion abnormalities. - Elevated RSVP on ECHO only 30-40 (3) BPH w urinary obs/LUTS: Plan: Hold Tamsulosin while NPO - clinically monitor - bladder scan if needed - straight cath if needed (4) GERD (gastroesophageal reflux disease): Plan: Protonix 40mg IV daily (5) Type 2 diabetes mellitus: Plan: Not on medications at home - ACH/HS glucose checks - Add coverage if >180 (6) CKD (chronic kidney disease): Plan: CKD IIIb, medicaid specialist baseline around 2 currently at 1.6, improved from baseline - renally dose medications --Avoid nephrotoxins -renally dose meds when appropriate -follow BMP (7) Mild cognitive impairment: Plan: Follows with neurology- - Per note in 12/25 was placed on Memantine and Aricept holding home meds (8) Dementia: Plan: As above (9) H/O gastric bypass: Plan: Continue b complex and iron supplementation when back to PO (10) Anemia: Plan: Recently placed on iron supplementation after recent GI bleed - continue- colonoscopy recently completed - normal with hemorrhoids anemia much improved from previous can discontinue FeSO4 on discharge as may have contributed to constipation and SBO (11) SUE (obstructive sleep apnea): Plan: Smattering of SUE throughout record- patient says he does not wear CPAP at home - with his RSVP on ECHO with Afib, this may be beneficial to re-visit as outpt - Patient had lost significant weight since his gastric bypass so may have been stopped at that time- again unsure Plan: DVT Porph-SCDs Dispo-continued stay but improving, possible adv diet on Wednesday and discharge later Wednesday if improved. Pt anxious for discharge as he has a long awaited Optometry appt on Wednesday he doesn't want to miss Admission and Anticipated Discharge Date Admission Date: January 18, 2021 Subjective Feeling much better. Has no abd pain, had 2 large BMs today, no nausea and feels hungry. No other concerns Tele with Afib, PVCs, rates 70-90s Review of Systems Review of Systems: All systems reviewed & are unremarkable except as noted in HPI & below Physical Exam Constitutional: WD/WN, vitals as above Neck: trachea midline, no thyromegaly Respiratory: normal respiratory effort, lungs clear to auscultation Cardiovascular: Rate/Rhythm: regular rate and + irregularly irregular Heart Sounds: no murmur Chest (Breasts): Chest: normal inspection of chest Gastrointestinal (Abdomen): normal bowel sounds, soft, nontender, no hepatosplenomegaly Musculoskeletal: Extremities: extremities normal to inspection; no cyanosis and no clubbing Skin: no rashes, warm and dry Neurologic: moves all extremities and awake; no focal motor deficits Psychiatric: Orientation: alert, oriented to person, oriented to place and cooperative Lymphatic: no lymphedema Results & Data Results & Data ([facility]) Vital Signs (Past 12 Hours) Vital Signs Temp Pulse Pulse Resp BP BP Pulse Ox 01/19/21 15:33 36.4 C L 75 16 114/75 98 01/19/21 12:46 36.4 C L 83 18 109/73 98 01/19/21 12:00 72 98/62 L 01/19/21 11:50 72 98/68 L 01/19/21 09:08 78 104/66 01/19/21 07:40 36.8 C 78 18 104/66 97 Laboratory Results 01/19/21 01/19/21 01/19/21 Range/Units 16:39 11:51 07:36 WBC (4.8-10.8) K/uL RBC (4.7-6.1) M/uL Hgb (14.0-18.0) g/dL Hct (42-52) % MCV (80-100) fL MCH (25-34) pg MCHC (32-36) g/dL RDW Std Deviation (36.4-46.3) fL RDW Coeff of Yinka (11.5-14.5) % Plt Count (130-400) K/uL MPV (7.4-10.4) fL Immature Gran % (Auto) % Neut % (Auto) % Lymph % (Auto) % [place] % (Auto) % Eos % (Auto) % Baso % (Auto) % Neut # (Auto) (1.4-6.5) K/uL Lymph # (Auto) (1.2-3.4) K/uL [place] # (Auto) (0.11-0.59) K/uL Eos # (Auto) (0-0.5) K/uL Baso # (Auto) (0-0.2) K/uL Immature Gran # (Auto) (0.00-0.02) K/uL Sodium (136-145) mmol/L Potassium (3.5-5.1) mmol/L Chloride (98-107) mmol/L Carbon Dioxide (21-32) mmol/L Anion Gap (3-11) BUN (7-18) mg/dl Creatinine (0.6-1.4) mg/dl Est Cr Clr Drug Dosing ml/min Est GFR ( Amer) ml/min Est GFR (Non-Af Amer) ml/min BUN/Creatinine Ratio (10-20) Glucose (70-99) mg/dl POC Glucose 98 115 H 143 H (70-99) mg/dl Calcium (8.5-10.1) mg/dl Magnesium (1.8-2.4) mg/dl 01/19/21 01/19/21 01/19/21 Range/Units 06:48 06:48 06:05 WBC 5.85 (4.8-10.8) K/uL RBC 3.56 L (4.7-6.1) M/uL Hgb 11.0 L (14.0-18.0) g/dL Hct 34.1 L (42-52) % MCV 95.8 (80-100) fL MCH 30.9 (25-34) pg MCHC 32.3 (32-36) g/dL RDW Std Deviation 61.7 H (36.4-46.3) fL RDW Coeff of Yinka 17.5 H (11.5-14.5) % Plt Count 171 (130-400) K/uL MPV 10.9 H (7.4-10.4) fL Immature Gran % (Auto) 0.2 % Neut % (Auto) 64.4 % Lymph % (Auto) 22.7 % [place] % (Auto) 9.9 % Eos % (Auto) 2.6 % Baso % (Auto) 0.2 % Neut # (Auto) 3.77 (1.4-6.5) K/uL Lymph # (Auto) 1.33 (1.2-3.4) K/uL [place] # (Auto) 0.58 (0.11-0.59) K/uL Eos # (Auto) 0.15 (0-0.5) K/uL Baso # (Auto) 0.01 (0-0.2) K/uL Immature Gran # (Auto) 0.01 (0.00-0.02) K/uL Sodium 144 (136-145) mmol/L Potassium 4.3 (3.5-5.1) mmol/L Chloride 118 H (98-107) mmol/L Carbon Dioxide 20 L (21-32) mmol/L Anion Gap 6.0 (3-11) BUN 28 H (7-18) mg/dl Creatinine 1.67 H D (0.6-1.4) mg/dl Est Cr Clr Drug Dosing 34.0 ml/min Est GFR ( Amer) 42.9 ml/min Est GFR (Non-Af Amer) 37.0 ml/min BUN/Creatinine Ratio 16.9 (10-20) Glucose 102 H (70-99) mg/dl POC Glucose 72 (70-99) mg/dl Calcium 8.0 L (8.5-10.1) mg/dl Magnesium 1.8 (1.8-2.4) mg/dl 01/19/21 01/18/21 Range/Units 00:38 20:26 WBC (4.8-10.8) K/uL RBC (4.7-6.1) M/uL Hgb (14.0-18.0) g/dL Hct (42-52) % MCV (80-100) fL MCH (25-34) pg MCHC (32-36) g/dL RDW Std Deviation (36.4-46.3) fL RDW Coeff of Yinka (11.5-14.5) % Plt Count (130-400) K/uL MPV (7.4-10.4) fL Immature Gran % (Auto) % Neut % (Auto) % Lymph % (Auto) % [place] % (Auto) % Eos % (Auto) % Baso % (Auto) % Neut # (Auto) (1.4-6.5) K/uL Lymph # (Auto) (1.2-3.4) K/uL [place] # (Auto) (0.11-0.59) K/uL Eos # (Auto) (0-0.5) K/uL Baso # (Auto) (0-0.2) K/uL Immature Gran # (Auto) (0.00-0.02) K/uL Sodium (136-145) mmol/L Potassium (3.5-5.1) mmol/L Chloride (98-107) mmol/L Carbon Dioxide (21-32) mmol/L Anion Gap (3-11) BUN (7-18) mg/dl Creatinine (0.6-1.4) mg/dl Est Cr Clr Drug Dosing ml/min Est GFR ( Amer) ml/min Est GFR (Non-Af Amer) ml/min BUN/Creatinine Ratio (10-20) Glucose (70-99) mg/dl POC Glucose 82 97 (70-99) mg/dl Calcium (8.5-10.1) mg/dl Magnesium (1.8-2.4) mg/dl Diagnostic Findings KUB X-Ray 01/19/21 05:45 KUB HISTORY: Small bowel obstruction evaluate SBO COMPARISON: CT abdomen and pelvis 01/18/2021 FINDINGS: Persistent small bowel obstruction with dilated air-filled loops of small bowel measuring up to 6.9 cm. No significant change from comparison. Cholecystectomy. No renal calculi. No ureteral calculi. No pneumoperitoneum or pneumatosis. No fracture. IMPRESSION: Persistent small bowel obstruction. ACT 112: Negative or not required by law. The above report was generated using voice recognition software. It may contain grammatical, syntax or spelling errors. Electronically signed by: Sixto Armenta M.D. 01/19/2021 8:10 AM PG Care Time/CCT Total # of Minutes Spent Total Time Spent with Patient: Total time spent is greater than 50% in coordination of care (as documented) at patient's floor/unit and/or counseling patient: Coding Level of Care Code 51456 Subseq Hosp Care Lvl 3 Diagnoses Small bowel obstruction due to adhesions K56.50 Atrial fibrillation I48.91 Atrial fibrillation type: unspecified BPH w urinary obs/LUTS GERD (gastroesophageal reflux disease) K21.9 Esophagitis presence: esophagitis presence not specified Type 2 diabetes mellitus E11.9 Diabetes mellitus predatory animal exterminator insulin use: without predatory animal exterminator use Diabetes mellitus complication status: without complication CKD (chronic kidney disease) N18.9 Chronic kidney disease stage: unspecified stage Mild cognitive impairment G31.84 Dementia F03.90 Dementia type: unspecified type Dementia behavioral disturbance: without behavioral disturbance H/O gastric bypass Z98.84 Anemia D64.9 SUE (obstructive sleep apnea) G47.33 (1) Atrial fibrillation Atrial fibrillation type: unspecified Qualified Code(s): I48.91 - Unspecified atrial fibrillation (2) GERD (gastroesophageal reflux disease) Esophagitis presence: esophagitis presence not specified Qualified Code(s): K21.9 - Gastro-esophageal reflux disease without esophagitis (3) Type 2 diabetes mellitus Diabetes mellitus predatory animal exterminator insulin use: without fdc use Diabetes mellitus complication status: without complication Qualified Code(s): E11.9 - Type 2 diabetes mellitus without complications (4) CKD (chronic kidney disease) Chronic kidney disease stage: unspecified stage Qualified Code(s): N18.9 - Chronic kidney disease, unspecified (5) Dementia Dementia type: unspecified type Dementia behavioral disturbance: without behavioral disturbance Qualified Code(s): F03.90 - Unspecified dementia without behavioral disturbance
[2021-01-19] MEDS ORDERED: ACETAMINOPHEN 500 MG TAB PO PRN (22:52)
[2021-01-20] MEDS: METOPROLOL TARTRATE 1 MG/ML VIAL IV SCH ×4 (00:10→12:57)
[2021-01-20 08:03] LABS: Basophils # (auto) 0.01 K/uL (0-0.2); Basophils % (auto) 0.2 %; Eosinophils # (auto) 0.16 K/uL (0-0.5); Eosinophils % (auto) 3.6 %; Hematocrit (blood only) 36.2 % (42-52); Hemoglobin 11.7 g/dL (14.0-18.0); Immature Granulocytes # (auto) 0.01 K/uL (0.00-0.02); Immature Granulocytes % (auto) 0.2 %; Lymphocytes # (auto) 1.38 K/uL (1.2-3.4); Lymphocytes % (auto) 30.9 %; Mean Corpuscular Hgb Conc 32.3 g/dL (32-36); Mean Platelet Volume 10.7 fL (7.4-10.4); Monocytes % (auto) 8.9 %; Neutrophils # (auto) 2.51 K/uL (1.4-6.5); Neutrophils % (auto) 56.2 %; Platelet Count 179 K/uL (130-400); RDW Coefficient of Variation 17.8 % (11.5-14.5); RDW Standard Deviation 62.4 fL (36.4-46.3); Red Blood Count 3.77 M/uL (4.7-6.1); White Blood Count 4.47 K/uL (4.8-10.8)
[2021-01-20 08:34] LABS: Creatinine Clr Calc Pharmacy 34.8 ml/min; Est GFR (African American) 44.2 ml/min; Est GFR (Non-African American) 38.1 ml/min; Magnesium 1.8 mg/dl (1.8-2.4); Potassium 4.2 mmol/L (3.5-5.1)
[2021-01-20] MEDS: PANTOprazole 40 MG in SYRINGE 0 ML IV SCH (09:22)
--- NOTE | 2021-01-20 09:35 | Surgery Progress Note ---
Date of Service January 20, 2021 Assessment & Plan (1) Small bowel obstruction due to adhesions: Plan: improving KUB with less small bowel distention can begin advancing diet he is concerned about making eye appt tomorrow Admission and Anticipated Discharge Date Admission Date: January 18, 2021 Supervising Physician Co-Signing Physician Notes pnt S&E, agree with above. History of RnYGB, admitted with sbo. feels better, multiple bm's, tolerating liquids. abd soft, nt, nd. kub with less distented bowel loops, official read pending. advance diet as tolerated, if recurs then may need outpnt eval from bariatric surgeon. Subjective BM this AM, feels normal Physical Exam Gastrointestinal (Abdomen): Inspection/Auscultation: abdomen not distended Percussion/Palpation: abdomen soft; abdomen nontender Results & Data ([facility]) Vital Signs (Past 12 Hours) Vital Signs Temp Pulse Pulse Resp BP BP Pulse Ox 01/20/21 09:21 94 H 94/62 L 01/20/21 07:55 36.6 C 94 H 18 94/62 L 95 01/20/21 04:31 80 01/20/21 04:11 74 95/59 L 01/20/21 03:19 36.4 C L 84 18 103/64 97 01/20/21 00:10 85 100/63 01/19/21 23:16 36.8 C 65 17 97/64 L 95 PG Care Time/CCT Total # of Minutes Spent Total Time Spent with Patient: Total time spent is greater than 50% in coordination of care (as documented) at patient's floor/unit and/or counseling patient: Coding Level of Care Code 93432 Subseq Hosp Care Lvl 1 Diagnoses Small bowel obstruction due to adhesions K56.50
--- NOTE | 2021-01-20 13:53 | XRay Report ---
XR KUB/Abdomen 1 view CLINICAL HISTORY: evaluate SBO COMPARISON STUDY: January 19, 2021 FINDINGS: Interval improvement of gaseous dilatation of the small bowel loops since prior study performed yeste rday. Largest diameter of gas-filled loop of small bowel is 4.6 cm and seen within right lower quadra nt (previously largest loop was measured in 6.7 cm) Nondilated gas and stool-filled loops of large bowel are seen. Degenerative changes of the spine. IMPRESSION: 1. Interval improvement of gaseous dilatation of the small bowel as detailed above. ACT 112: Negative or not required by law. The above report was generated using voice recognition software. It may contain grammatical, syntax o r spelling errors. Electronically signed by: Clare Sharpe DO 01/20/2021 1:52 PM
[2021-01-20] MEDS ORDERED: METOPROLOL TARTRATE 50 MG TAB PO SCH (21:00)
[2021-01-20] MEDS ORDERED: APIXABAN 2.5 MG TAB PO SCH (21:00)
--- NOTE | 2021-01-24 22:15 | Discharge Summary ---
Date of Service January 20, 2021 Admission HPI Per Admitting Provider 85 YOM with past medical history of: Vernon en Y gastric bypass, falls, cholecystectomy, CKD, DJD, DM, GI bleed, FE deficient anemia, migraines, OA, SUE, BPH with LUTS, afib (on Apixaban 2.5mg PO BID), dementia, ataxic gait. Patient comes to the [facility] today for acute on set of mid to right sided abdominal pain that was sharp in nature. This started early this morning and the pain progressed to 7-8/10. This was associated with some nausea without vomiting. The pain was described as sharp and crampy pain that did not radiate. The patient last ate this morning with eggs for breakfast, but noticed that his appe tite just wasn't there since yesterday evening. Patient denies any diarrhea or constipation within the past week. Patient most recently had a Colonoscope in December for anemia and blood per rectum. Colonoscopy was normal at that time with internal hemorrhoids, he denies any further rectal bleeding or blood in his stools. In the EMD the patient had a CT scan of his head performed that was negative for acute process, he had a CT scan of his abdomen performed, which revealed a High grade small bowel obstruction with transition point involving small bowel, and a CXR that was negative for acute process. Patient will be admitted for bowel rest, IVF, pain control. As he is currently soft and not distended without vomiting will hold on NGT decompression at this time. The patient did fall in the waiting room in the EMD, today out of his wheel chair hitting his left shoulder and his reports that he may have bumped his head, prompting the above CT scan of the head. He also reports that he fell a couple of days ago falls on to his tailbone, which has been tender. No instability noted in the pelvis, full ROM of the shoulders, and no cervical tenderness noted. Principal Diagnosis Partial small bowel obstruction, resolved Discharge Exam Constitutional WD/WN, vitals as above Neck trachea midline, no thyromegaly Respiratory normal respiratory effort, lungs clear to auscultation Cardiovascular Rate/Rhythm: regular rate and + irregularly irregular Heart Sounds: normal S1 and normal S2; no murmur Vessels: no JVD Extremities: normal capillary refill; no edema Gastrointestinal (Abdomen) Inspection/Auscultation: abdomen normal to inspection and normal bowel sounds; abdomen not distended Percussion/Palpation: abdomen soft and + tympanic to percussion; abdomen nontender, no guarding, abdomen not rigid and no ascites Musculoskeletal no cyanosis or clubbing, extremities motor strength 5/5 Skin no rashes, warm and dry Neurologic normal touch/pain/proprioception, CN's II-XI intact bilaterally, moves all extremities and awake; no focal motor deficits Psychiatric A+Ox3, euthymic affect Discharge Data Allergies Allergy/AdvReac Type Severity Reaction Status Date / Time No Known Allergies Allergy Verified 01/18/21 15:52 Consultations 01/18/21 17:28 ED Decision to Admit Stat 01/18/21 19:53 Consult General Surgery Routine Ordered Studies 01/18/21 15:28 CT abd pelvis wo con Stat 01/18/21 15:54 CT head/brain wo con Stat Hospital Course (1) Small bowel obstruction due to adhesions: Likely secondary to adhesions-KUB shows issue is resolving No NGT placed as he was soft, not tympanic, no vomiting and history of Vernon-en-Y gastric bypass he is moving his bowels tolerating diet stay well hydrated, stay active, low fiber diet stop Ferrous Sulfate as this can make constipation more likely (2) Atrial fibrillation: Rate controlled - back on Metoprolol PO - resume Apixiban - EF in November: EF 55-60% with no wall motion abnormalities. 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 liner baseline around 2 currently at 1.6, improved from baseline - renally dose medications --Avoid nephrotoxins -renally dose meds when appropriate -follow BMP (7) Mild cognitive impairment: Follows with neurology- - Per note in 12/25 was placed on Memantine and Aricept (8) Dementia: As above (9) H/O gastric bypass: Continue b complex and iron supplementation when back to PO (10) Anemia: Recently placed on iron supplementation after recent GI bleed - continue- colonoscopy recently completed - normal with hemorrhoids anemia much improved from previous stop Ferrous sulfate to make constipation less likely can get Venofer outpatient if needed (11) SUE (obstructive sleep apnea): Smattering of SUE throughout record- patient says he does not wear CPAP at home - with his RSVP on ECHO with Afib, this may be beneficial to re-visit as outpt - Patient had lost significant weight since his gastric bypass so may have been stopped at that time- again unsure DVT Porph-SCDs Dispo- discharge to home Total Time Total Time Spent Total Time Spent (In Minutes): 31 Total Time Includes: Examination of the Patient, Discharge Planning and Medication Reconciliation Discharge Plan Discharge Items Patient Disposition: Home - Self-Care Reason For Visit: SBO Discharge Diagnosis: partial small bowel obstruction, resolved Condition on Discharge: Good Goals: low fiber diet, small more frequent meals, stay well hydrated stay active to promote bowels moving avoid excessive anti-diarrhea medications Activity: Resume your previous activity Driving/Machine Use: No limitations Weightbearing: Full weightbearing Non-emergency contact: Primary Care Provider Call non-emergency contact if: you have any medication questions and your symptoms worsen Follow-up/Referrals: Spencer Baltazar MD [Primary Care Provider] - (one week) Diet: Carb Consistent or DM2 and Low Fiber Addtl Attending Provider Instructions: Medications: - FERROUS SULFATE: iron supplement, recommend stopping this for time being, side effect can be constipation can always get periodic iron infusions (Venofer) as outpatient if your iron stores are low Partial small bowel obstruction: resolved with conservative measures stay well hydrated, follow low fiber diet for next 1-2 weeks, stay active (walking during the day, promotes gut motility) follow up with PCP in a week no need to get outpatient lab work for Dr. Vences, this morning you had a BMP and magnesium level and CBC which would be what she needs Pending Studies at Discharge: No Stand-Alone Forms: My [employer], Smoking Cessation Medications and DC Order Prescriptions: Continued triamcinolone acetonide 0.1 % cream 1 applic topical BID PRN (Reason: Itching) Qty: 454 RF: 0 memantine 5 mg tablet 5 mg PO BID Qty: 180 RF: 1 Eliquis 2.5 mg tablet 2.5 mg PO BID RF: 0 tadalafil 20 mg tablet 20 mg PO DAILY Qty: 10 RF: 11 sodium bicarbonate 650 mg tablet 650 mg PO BID Qty: 180 RF: 3 calcitriol 0.5 mcg capsule 0.5 mcg PO 3XWK Qty: 45 RF: 3 Men's Multivitamin 400-20-300 mcg Tablet 1 tab PO BID RF: 0 calcium carbonate-vitamin D3 [Calcium 500 + D] 500 mg(1,250mg) -200 unit tablet 1 tab PO BID RF: 0 vitamin B complex Tablet 1 tab PO BID RF: 0 solifenacin [Vesicare] 10 mg tablet 10 mg PO QAM RF: 0 omeprazole 40 mg Capsule,Delayed Release(Dr/Ec) 40 mg PO BID RF: 0 tamsulosin 0.4 mg capsule 0.4 mg PO QAM RF: 0 metoprolol tartrate 50 mg tablet 50 mg PO BID RF: 0 Probiotic 10 billion cell Capsule 10,000 mmu cells PO QPM RF: 0 tramadol 50 mg tablet 50 mg PO BID PRN (Reason: Pain) RF: 0 Discontinued ferrous sulfate 325 mg (65 mg iron) tablet 325 mg PO BID Qty: 60 RF: 0 Discharge Orders: Discharge Order (Routine); Ordered 01/20/21 Ordered By: Anton Oliveira Admission Data Admit Date/Time: 01/18/21 18:17 Attending Provider: Anton Oliveira Admit Provider: Renetta Richards Primary Care Provider: Spencer Baltazar Other Providers: Tee Rao ; Bret Walker Other Interventions: Discharge Summary Assessment (RN) Last Done: 01/20/21 13:23 Coding Level of Care Code D/C DAY MANAGEMENT >30 MINS Diagnoses Small bowel obstruction due to adhesions K56.50 Atrial fibrillation I48.91 Atrial fibrillation type: unspecified BPH w urinary obs/LUTS GERD (gastroesophageal reflux disease) K21.9 Esophagitis presence: esophagitis presence not specified Type 2 diabetes mellitus E11.9 Diabetes mellitus complication status: without complication 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
== END 2021-01-20 14:57 | disposition home or self-care (01) ==
LOC: ED 15:10 → INTOOBSV 18:17 → SUATTDRO 18:17 → 2N 18:17

== ENCOUNTER 2021-06-17 09:46 | Observation (INO) ==
--- NOTE | 2021-06-17 10:06 | Emergency Department Note ---
History of Present Illness General Chief complaint: Fall Time Seen by Provider: 06/17/21 09:51 History of Present Illness 86-year-old male presents emergency department via EMS reportedly had a near syncopal episode when he was getting out of a vehicle to go to a doctor's appointment. Patient states that he felt extremely dizzy was lightheaded and wobbly. Patient denies headache slurred speech blurred vision chest pain shortness of breath abdominal pain nausea vomiting diarrhea prior to the event patient is on Eliquis he does not remember if he hit his head. Patient is currently being treated for penis infection and was going to his doctor for follow-up. Patient has no other complaints there were no other mitigating or alleviating factors Home Medications Medication Instructions Recorded Confirmed Type omeprazole 40 mg capsule,delayed 40 mg PO BID 03/02/18 06/17/21 History release oljgsufx-hwpbsekr-bnvnw acid 400 1 tab PO QAM 09/28/19 06/17/21 History mcg-vit K 20 mcg-lycop 300 mcg tablet (Men's Multivitamin) calcium carbonate 500 mg-vitamin 1 tab PO QAM tab 12/18/19 06/17/21 History D3 5 mcg (200 unit) tablet (Calcium 500 + D) vitamin B complex 1 tab PO QAM tab 12/18/19 06/17/21 History calcitriol 0.5 mcg capsule 0.5 mcg PO 3XWK #45 cap 07/16/20 06/17/21 Rx sodium bicarbonate 650 mg tablet 650 mg PO BID #180 tab 07/16/20 06/17/21 Rx apixaban 2.5 mg tablet (Eliquis) 2.5 mg PO BID 07/24/20 06/17/21 History tramadol 50 mg tablet 50 mg PO BID PRN 09/14/20 06/17/21 History metoprolol tartrate 50 mg tablet 50 mg PO BID 11/06/20 06/17/21 History memantine 5 mg tablet 5 mg PO BID #180 tab 12/12/20 06/17/21 Rx Lactobacillus acidophilus 10 10,000 mmu cells PO QDD 01/18/21 06/17/21 History billion cell capsule (Probiotic) nystatin 100,000 unit/gram topical 1 applic TOPICAL BID #30 g 05/26/21 06/17/21 Rx cream triamcinolone acetonide 0.1 % 1 applic TOPICAL BID #30 g 05/26/21 06/17/21 Rx topical cream gabapentin 100 mg capsule 100 mg PO TID 06/01/21 06/17/21 History hydroxyzine HCl 10 mg tablet 10 mg PO QID 06/01/21 06/17/21 History solifenacin 10 mg tablet (Vesicare) 10 mg PO QAM 06/17/21 06/17/21 History tamsulosin 0.4 mg capsule 0.4 mg PO QAM 06/17/21 06/17/21 History Allergies Allergy/AdvReac Type Severity Reaction Status Date / Time No Known Allergies Allergy Verified 06/17/21 10:58 Past Med/Surg History Medical History Abdominal pain Acute cholecystitis Atrial fibrillation no cardioversions/ no pacer. treated with medication and follows with PCP BRBPR (bright red blood per rectum) Chronic kidney disease variable creatinines with baseline ~1.6-2.1 > follows with Dr. Vences Colitis Degenerative disc disease Dementia Diabetes mellitus, type 2 diet controlled Dysphagia "trouble keeping foods down" Fall walker and cane -- fall risk. History of bleeding ulcers History of BPH Hx of migraines Hx of sleep apnea no device Osteoarthritis Rectal bleed SBO (small bowel obstruction) Stage 3b chronic kidney disease Substernal chest pain resolved per pt Syncope Syncope and collapse Vitamin D deficiency Surgical History H/O knee surgery "MULTIPLE KNEE SURGERIES"- R/L History of colonoscopy History of esophagogastroduodenoscopy (EGD) History of tooth extraction History of total knee replacement RT/LEFT History of total shoulder replacement LEFT Hx of circumcision 2 yrs ago Hx of transurethral resection of prostate S/P laparoscopic cholecystectomy (09/17/20) Laparoscopic Cholecystectomy with Cholangiogram with akira drain 09/17/20 Dr. Atkinson Family History Sister Family history of diabetes mellitus Social History Smoking Status: Former smoker Tobacco Type: Cigarettes Second Hand Exposure: No; Hx Alcohol Use: No Hx Substance Use: No Preferred Language: Mozambican Communication Ability: Effective Learning And Development Consultant Required: No Beliefs That Will Affect Care: None marital status: Current Living Situation: Spouse Current Living Situation Comment: home with Feels Safe at Home: Yes Assistive Devices: Denture - Lower and Glasses Review of Systems A total of 10 systems reviewed and were otherwise negative Constitutional: no fever Respiratory: no cough Cardiovascular: no chest pain Neurologic: + syncope Physical Exam Vital Signs Vital Signs - 24 hr 06/17/21 09:45 06/17/21 11:24 Temperature 36.2 C L Temperature Source Oral Pulse Rate 86 Pulse Rate [Right Finger] 88 Respiratory Rate 20 20 Respiratory Effort / Characteristics Non-Labored Respiratory Depth Normal Blood Pressure 102/56 L Blood Pressure [Right Arm] 113/57 L Blood Pressure Mean 71 Blood Pressure Mean [Right Arm] 75 Pulse Oximetry 95 98 Oxygen Delivery Method Room Air Room Air Sepsis Recent Fever Within 48 Hours No Sepsis New/Unexplained Change in Mental Status N/A Sepsis Action Taken by Nursing No Action Required VITAL SIGNS - Vital signs and nursing notes were reviewed. GENERAL -86-year-old male appearing his stated age who is in no acute distress. Communicates well with provider and answers questions appropriately. SKIN - Without rashes. HEAD - NC/AT. EYES - PERRL with EOMI bilaterally. Sclera anicteric. Palpebral conjunctiva pink and moist with no injection noted. EARS - No deformities of external structures noted on gross examination bilaterally. NOSE - Midline and without cyanosis. No epistaxis or purulent drainage noted. Septum midline without deviation or septal hematoma noted. MOUTH/OROPHARYNX - Without perioral cyanosis. . Tongue midline with equal elevation of palate bilaterally. No tonsillar hypertrophy, erythema, or exudates noted. [] dentition noted. NECK - Neck with FROM. Supple to palpation. LUNGS - Chest wall symmetric without accessory muscle use, intercostals retractions, or central cyanosis. Normal vesicular breath sounds CTA B/L. No wheezes, rales, or rhonchi appreciated. CARDIAC -irregularly irregular . No murmur, rubs, or gallops appreciated. ABDOMEN - Abdominal contour soft without pulsations or visible masses. BS normo active all four quadrants. No tenderness, palpable masses, hepatosplenomegaly, or ascites noted. Patient has a midline surgical scar EXTREMITIES - No clubbing or peripheral cyanosis. No pretibial edema present. +5/5 strength noted in UE/LE bilaterally. NEUROLOGIC - Cranial nerves II through XII grossly intact. Sensory intact to light touch throughout. PSYCH - A&Ox3 and cooperates fully with examiner. Pt is very pleasant and interacts well with examiner. Course Reevaluation(s) Reevaluation #1: Repeat examination at 6 11:48 AM the patient is resting in no distress nonfocal neurologic exam and telemetry shows the patient have bigeminy but a rate of 88 patient is normotensive he states he feels absolutely fine. I discussed evaluation with the patient the patient's at bedside Reevaluation #3: [place] [id number] PM, patient is resting in no distress was ambulatory he has no back pain currently; when he was being placed back in the bed he started to have symptoms of the room spinning and he felt extremely dizzy; patient's vital signs were stable he is not hypotensive Additional Reevaluation(s): Spoke with hospitalist Dr. Rao for admit Administered Medications Discontinued Medications Meclizine HCl (Meclizine Hcl 25 Mg Tab) 25 mg PO NOW STA Stop: 06/17/21 12:10 Last Admin: 06/17/21 12:14 Dose: 25 mg Documented by: [id number] Medical Decision Making Laboratory Data Result diagrams: 06/17/21 10:00 06/17/21 10:00 Lab Results 06/17/21 06/17/21 06/17/21 Range/Units 10:00 10:00 10:00 WBC 6.39 (4.8-10.8) K/uL RBC 3.55 L (4.7-6.1) M/uL Hgb 11.3 L (14.0-18.0) g/dL Hct 35.9 L (42-52) % MCV 101.1 H (80-100) fL MCH 31.8 (25-34) pg MCHC 31.5 L (32-36) g/dL RDW Std Deviation 52.3 H (36.4-46.3) fL RDW Coeff of Yinka 14.1 (11.5-14.5) % Plt Count 179 (130-400) K/uL MPV 10.9 H (7.4-10.4) fL Immature Gran % (Auto) 0.2 % Neut % (Auto) 72.4 % Lymph % (Auto) 16.6 % [place] % (Auto) 7.2 % Eos % (Auto) 3.1 % Baso % (Auto) 0.5 % Neut # (Auto) 4.63 (1.4-6.5) K/uL Lymph # (Auto) 1.06 L (1.2-3.4) K/uL [place] # (Auto) 0.46 (0.11-0.59) K/uL Eos # (Auto) 0.20 (0-0.5) K/uL Baso # (Auto) 0.03 (0-0.2) K/uL Immature Gran # (Auto) 0.01 (0.00-0.02) K/uL PT 11.0 (9.0-12.0) Seconds INR 1.1 (0.9-1.1) APTT 30.7 (21.0-31.0) Seconds PTT Ratio 1.2 Sodium 140 (136-145) mmol/L Potassium 4.8 (3.5-5.1) mmol/L Chloride 116 H (98-107) mmol/L Carbon Dioxide 18 L (21-32) mmol/L Anion Gap 6 (3-11) BUN 41 H (6-23) mg/dl Creatinine 2.27 H (0.6-1.4) mg/dl Est Cr Clr Drug Dosing 27.4 ml/min Est GFR ( Amer) 29.4 ml/min Est GFR (Non-Af Amer) 25.4 ml/min BUN/Creatinine Ratio 18.1 (10-20) Glucose 218 H (70-99) mg/dl Calcium 8.4 L (8.5-10.1) mg/dl Magnesium 1.6 L (1.7-2.4) mg/dl Total Bilirubin 0.4 (0.2-1.0) mg/dl AST 18 (13-39) U/L ALT 15 (7-52) U/L Alkaline Phosphatase 78 (34-104) U/L Troponin I < 0.03 (0-0.04) ng/ml Total Protein 6.5 (6.0-8.3) gm/dl Albumin 3.4 (3.4-5.0) gm/dl Globulin 3.1 (2.5-4.0) gm/dl Albumin/Globulin Ratio 1.1 (0.9-2) Urine Color Urine Appearance (Clear) Urine pH (4.5-7.5) Ur Specific [place] (1.000-1.030) Urine Protein (Negative) Urine Glucose (UA) (Negative) Urine Ketones (Negative) Urine Blood (Negative) Urine Nitrite (Negative) Urine Bilirubin (Negative) Urine Urobilinogen (Negative) Ur Leukocyte Esterase (Negative) Urine WBC (Auto) (0-5) /hpf Urine RBC (Auto) (0-4) /hpf U Hyaline Cast (Auto) (0-5) /lpf U Epithel Cells (Auto) (0-5) /lpf Urine Bacteria (Auto) (Negative) 06/17/21 Range/Units 11:34 WBC (4.8-10.8) K/uL RBC (4.7-6.1) M/uL Hgb (14.0-18.0) g/dL Hct (42-52) % MCV (80-100) fL MCH (25-34) pg MCHC (32-36) g/dL RDW Std Deviation (36.4-46.3) fL RDW Coeff of Yinka (11.5-14.5) % Plt Count (130-400) K/uL MPV (7.4-10.4) fL Immature Gran % (Auto) % Neut % (Auto) % Lymph % (Auto) % [place] % (Auto) % Eos % (Auto) % Baso % (Auto) % Neut # (Auto) (1.4-6.5) K/uL Lymph # (Auto) (1.2-3.4) K/uL [place] # (Auto) (0.11-0.59) K/uL Eos # (Auto) (0-0.5) K/uL Baso # (Auto) (0-0.2) K/uL Immature Gran # (Auto) (0.00-0.02) K/uL PT (9.0-12.0) Seconds INR (0.9-1.1) APTT (21.0-31.0) Seconds PTT Ratio Sodium (136-145) mmol/L Potassium (3.5-5.1) mmol/L Chloride (98-107) mmol/L Carbon Dioxide (21-32) mmol/L Anion Gap (3-11) BUN (6-23) mg/dl Creatinine (0.6-1.4) mg/dl Est Cr Clr Drug Dosing ml/min Est GFR ( Amer) ml/min Est GFR (Non-Af Amer) ml/min BUN/Creatinine Ratio (10-20) Glucose (70-99) mg/dl Calcium (8.5-10.1) mg/dl Magnesium (1.7-2.4) mg/dl Total Bilirubin (0.2-1.0) mg/dl AST (13-39) U/L ALT (7-52) U/L Alkaline Phosphatase (34-104) U/L Troponin I (0-0.04) ng/ml Total Protein (6.0-8.3) gm/dl Albumin (3.4-5.0) gm/dl Globulin (2.5-4.0) gm/dl Albumin/Globulin Ratio (0.9-2) Urine Color Dark Yellow Urine Appearance Clear (Clear) Urine pH 5.0 (4.5-7.5) Ur Specific [place] 1.017 (1.000-1.030) Urine Protein Trace H (Negative) Urine Glucose (UA) Negative (Negative) Urine Ketones Negative (Negative) Urine Blood Negative (Negative) Urine Nitrite Negative (Negative) Urine Bilirubin Negative (Negative) Urine Urobilinogen Negative (Negative) Ur Leukocyte Esterase 1+ H (Negative) Urine WBC (Auto) 1-5 (0-5) /hpf Urine RBC (Auto) 0-4 (0-4) /hpf U Hyaline Cast (Auto) 1-5 (0-5) /lpf U Epithel Cells (Auto) 20-30 H (0-5) /lpf Urine Bacteria (Auto) Negative (Negative) Imaging Data Radiologist's Impression: Chest X-Ray 06/17/21 10:01 XR chest 1V portable CLINICAL HISTORY: dizziness. Evaluate cardiopulmonary status COMPARISON STUDY: 06/06/2021 TECHNIQUE: 1 view of the chest FINDINGS: Single frontal view of the chest demonstrates the cardiomediastinal silhouette to be within normal limits. There is a decreased inspiratory effort with elevation of the hemidiaphragms and crowding of the bronchovascular markings at the lung bases and centrally. The lungs are clear of alveolar opacities. There is no evidence for pleural effusion. There is no evidence for vascular congestion. There is no acute osseous pathology. IMPRESSION: There is a decreased inspiratory effort with otherwise no acute chest disease. ACT 112: Negative or not required by law. Electronically signed by: Chito Shah M.D. 06/17/2021 10:[address] 06/17/21 10:01 CT head/brain wo con CLINICAL HISTORY: syncope COMPARISON STUDY: 01/18/2021 CT DOSE: 788.63 mGycm TECHNIQUE: Standard CT of the Brain was performed without IV contrast. A dose lowering technique was utilized adhering to the principles of ALARA. FINDINGS: Extraaxial space: There is no evidence for subdural hematoma. There are no extra-axial fluid collections. Ventricles and cisterns: The ventricles are mildly dilated bilaterally. There is no evidence for midline shift or mass effect. Parenchyma: There is no subarachnoid or intraparenchymal hemorrhage. There is no evidence for an acute infarct or cerebral edema. There is mild cerebral cortical atrophy and decreased attenuation in the periventricular white matter representing remote small vessel disease. There are no gross mass lesions. Osseous structures: There is no evidence for an acute fracture. The visualized paranasal sinuses are clear. The mastoid air cells are clear bilaterally. Soft tissues: There is no evidence for focal soft tissue swelling. IMPRESSION: No acute intracerebral pathology. Mild cerebral cortical atrophy and remote small vessel disease. ACT 112: Negative or not required by law. Electronically signed by: Chito Shah M.D. 06/17/2021 10:23 AM ECG Data Attestation: I personally reviewed and interpreted this ECG as follows: Additional Comments: EKG interpreted by me underlying atrial fibrillation versus atrial flutter bigeminy nonspecific ST and T change globally no obvious ST segment elevation or depression normal axis MDM Narrative Medical decision making differential diagnosis near syncope syncope cardiac dysrhythmia intracranial hemorrhage, TIA, metabolic derangement Impression & Plan Syncope, Vertigo Discharge Plan Visit Data Chief Complaint: Fall ED Provider: Bret Moore Discharge Problem: Syncope, Vertigo Patient Disposition: Being Evaluated by Hospitalist Forms Stand Alone Forms: My [facility] Prescriptions Prescriptions: No Action nystatin 100,000 unit/gram cream 1 applic topical BID Qty: 30 RF: 0 triamcinolone acetonide 0.1 % cream 1 applic topical BID Qty: 30 RF: 0 memantine 5 mg tablet 5 mg PO BID Qty: 180 RF: 1 Eliquis 2.5 mg tablet 2.5 mg PO BID RF: 0 sodium bicarbonate 650 mg tablet 650 mg PO BID Qty: 180 RF: 3 calcitriol 0.5 mcg capsule 0.5 mcg PO 3XWK Qty: 45 RF: 3 Men's Multivitamin 400-20-300 mcg Tablet 1 tab PO QAM RF: 0 calcium carbonate-vitamin D3 [Calcium 500 + D] 500 mg(1,250mg) -200 unit ta blet 1 tab PO QAM RF: 0 vitamin B complex Tablet 1 tab PO QAM RF: 0 omeprazole 40 mg Capsule,Delayed Release(Dr/Ec) 40 mg PO BID RF: 0 metoprolol tartrate 50 mg tablet 50 mg PO BID RF: 0 Probiotic 10 billion cell Capsule 10,000 mmu cells PO QDD RF: 0 tamsulosin 0.4 mg capsule 0.4 mg PO QAM RF: 0 solifenacin [Vesicare] 10 mg tablet 10 mg PO QAM RF: 0 tramadol 50 mg tablet 50 mg PO BID PRN (Reason: Pain) RF: 0 gabapentin 100 mg capsule 100 mg PO TID RF: 0 hydroxyzine HCl 10 mg tablet 10 mg PO QID RF: 0 Referrals Referrals: Spencer Baltazar MD [Primary Care Provider] - Discharge Problem: Syncope Qualifiers: Syncope type: unspecified Qualified Code(s): R55 - Syncope and collapse
[2021-06-17 10:15] LABS: Basophils # (auto) 0.03 K/uL (0-0.2); Basophils % (auto) 0.5 %; Eosinophils % (auto) 3.1 %; Hematocrit (blood only) 35.9 % (42-52); Hemoglobin 11.3 g/dL (14.0-18.0); Immature Granulocytes # (auto) 0.01 K/uL (0.00-0.02); Immature Granulocytes % (auto) 0.2 %; Lymphocytes # (auto) 1.06 K/uL (1.2-3.4); Lymphocytes % (auto) 16.6 %; Mean Corpuscular Hemoglobin 31.8 pg (25-34); Mean Corpuscular Hgb Conc 31.5 g/dL (32-36); Mean Corpuscular Volume 101.1 fL (80-100); Mean Platelet Volume 10.9 fL (7.4-10.4); Monocytes # (auto) 0.46 K/uL (0.11-0.59); Monocytes % (auto) 7.2 %; Neutrophils # (auto) 4.63 K/uL (1.4-6.5); Neutrophils % (auto) 72.4 %; Platelet Count 179 K/uL (130-400); RDW Coefficient of Variation 14.1 % (11.5-14.5); RDW Standard Deviation 52.3 fL (36.4-46.3); Red Blood Count 3.55 M/uL (4.7-6.1); White Blood Count 6.39 K/uL (4.8-10.8)
--- NOTE | 2021-06-17 10:16 | XRay Report ---
XR chest 1V portable CLINICAL HISTORY: dizziness. Evaluate cardiopulmonary status COMPARISON STUDY: 06/06/2021 TECHNIQUE: 1 view of the chest FINDINGS: Single frontal view of the chest demonstrates the cardiomediastinal silhouette to be within normal li mits. There is a decreased inspiratory effort with elevation of the hemidiaphragms and crowding of th e bronchovascular markings at the lung bases and centrally. The lungs are clear of alveolar opacities . There is no evidence for pleural effusion. There is no evidence for vascular congestion. There is n o acute osseous pathology. IMPRESSION: There is a decreased inspiratory effort with otherwise no acute chest disease. ACT 112: Negative or not required by law. Electronically signed by: Chito Shah M.D. 06/17/2021 10:15 AM
--- NOTE | 2021-06-17 10:25 | CT Scan Report ---
CT head/brain wo con CLINICAL HISTORY: syncope COMPARISON STUDY: 01/18/2021 CT DOSE: 788.63 mGycm TECHNIQUE: Standard CT of the Brain was performed without IV contrast. A dose lowering technique was utilized adhering to the principles of ALARA. FINDINGS: Extraaxial space: There is no evidence for subdural hematoma. There are no extra-axial fluid collecti ons. Ventricles and cisterns: The ventricles are mildly dilated bilaterally. There is no evidence for mid line shift or mass effect. Parenchyma: There is no subarachnoid or intraparenchymal hemorrhage. There is no evidence for an acu te infarct or cerebral edema. There is mild cerebral cortical atrophy and decreased attenuation in th e periventricular white matter representing remote small vessel disease. There are no gross mass lesi ons. Osseous structures: There is no evidence for an acute fracture. The visualized paranasal sinuses are clear. The mastoid air cells are clear bilaterally. Soft tissues: There is no evidence for focal soft tissue swelling. IMPRESSION: No acute intracerebral pathology. Mild cerebral cortical atrophy and remote small vessel disease. ACT 112: Negative or not required by law. Electronically signed by: Chito Shah M.D. 06/17/2021 10:23 AM
[2021-06-17 10:27] LABS: INR 1.1 (0.9-1.1); Partial Thromboplastin Ratio 1.2; Partial Thromboplastin Time 30.7 Seconds (21.0-31.0)
[2021-06-17 10:58] LABS: Alanine Aminotransferase 15 U/L (7-52); Albumin Globulin Ratio 1.1 (0.9-2); Albumin Level 3.4 gm/dl (3.4-5.0); Alkaline Phosphatase 78 U/L (34-104); Anion Gap 6 (3-11); Aspartate Aminotransferase 18 U/L (13-39); BUN Creatinine Ratio 18.1 (10-20); Bilirubin,Total 0.4 mg/dl (0.2-1.0); Blood Urea Nitrogen 41 mg/dl (6-23); Calcium 8.4 mg/dl (8.5-10.1); Carbon Dioxide 18 mmol/L (21-32); Chloride 116 mmol/L (98-107); Creatinine Clr Calc Pharmacy 27.4 ml/min; Est GFR (African American) 29.4 ml/min; Est GFR (Non-African American) 25.4 ml/min; Globulin 3.1 gm/dl (2.5-4.0); Glucose 218 mg/dl (70-99); Magnesium 1.6 mg/dl (1.7-2.4); Potassium 4.8 mmol/L (3.5-5.1); Sodium 140 mmol/L (136-145); Total Protein 6.5 gm/dl (6.0-8.3)
[2021-06-17 11:32] LABS: Troponin I < 0.03 ng/ml (0-0.04)
[2021-06-17 11:49] LABS: Appearance Urine Clear (Clear); Bacteria Urine Automated Negative (Negative); Bilirubin Urine Negative (Negative); Blood Urine Negative (Negative); Color Urine Dark Yellow; Epithelial Cell Urine Auto 20-30 /lpf (0-5); Glucose Urine UA Negative (Negative); Ketones Urine Negative (Negative); Leukocyte Esterase Urine 1+ (Negative); Nitrite Urine Negative (Negative); Protein Urine Trace (Negative); RBC Urine Automated 0-4 /hpf (0-4); Specific Gravity Urine 1.017 (1.000-1.030); Urobilinogen Urine Negative (Negative)
[2021-06-17] MEDS ORDERED: MECLIZINE HCL 25 MG TAB PO STA (12:09)
--- NOTE | 2021-06-17 12:49 | History & Physical Report ---
Date of Service June 17, 2021 Assessment & Plan (1) Vertigo: Plan: Certainly benign positional vertigo was his first slot with this patient. He does have risk factors to have cerebrovascular disease. We will have scheduled meclizine check an MRI of his brain he will continue on his antiplatelet and anticoagulation medication which he uses for his heart disease and atrial fibrillation. There is no external sign of trauma. (2) Balanitis: Plan: Patient's penis and truly does look irritated and possibly with cellulitis. We will stop his topical steroids will use antifungal agents and will start some oral Augmentin. Due to the patient's complaints of some hematuria urine culture will be sent as his urinalysis does look abnormal but that would be explained by the irritation to his distal penis. (3) Chronic kidney disease: Plan: She suffers from chronic kidney disease stage III typically follows with Dr. Cordero he will continue on his Calcitrol and bicarbonate. His creatinine is about stable for (4) Atrial fibrillation: Plan: Patient remains in rate controlled atrial fibrillation. The patient will continue on his apixaban and metoprolol. He will be on a monitored setting at this time in case there is some arrhythmia that might be attributed with his falling. (5) Anemia: Plan: Patient suffers from chronic anemia likely secondary to his renal disease. He is slightly macrocytic we will check a vitamin B12 level and folic acid although he does take a multiple vitamin on a daily basis (6) DVT prophylaxis: Plan: Patient continues on renal dose adjusted apixaban Patient is a full code. Have a PT evaluation tomorrow to determine his fitness for walking History of Present Illness Primary Care Provider: Spencer Baltazar MD 86-year-old male being admitted for intractable vertigo. Patient awoke with feelings of dizziness which were exacerbated after he had a fall on a slippery surface trying to go to the urology doctors office. 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 He currently is on antifungal and steroid cream and continues to have erythema and discomfort to the tip of his penis. Most recently he has also had some bloody urine for which she is also made an appointment to see his public health officer. When this morning he described feeling slightly dizzy or unsteady on his feet so much so that he did not wish to drive to his doctor's appointment. When he and his are leaving the house she went to go down to the telephone directory distributor driver side of the car and he fell to the ground. He does have memory loss on a typical basis and cannot recall striking his head and there is no evidence of abrasions or contusions. He does take chronic anticoagulation but a CT scan in the emergency department was without any intracranial injury. Some of his home medications include gabapentin and hydroxyzine which of the elderly could cause some issues with balance. He will be observed in our facility we will check an MRI because the dizziness began compensation director he is outside of any time window for stroke subsequently we will just evaluate for any possible small changes. He will be given scheduled meclizine. We will check a urine culture as he does have an abnormal urine analysis and previously has had a history of urinary tract infections. Patient is diet-controlled diabetic we will check blood sugars and have him on sliding scale insulin his admitting blood sugar is 218. Patient no longer uses CPAP at night patient and his confirm he is a full code Allergies Allergy/AdvReac Type Severity Reaction Status Date / Time No Known Allergies Allergy Verified 06/17/21 10:58 Home Medications Medication Instructions Recorded Confirmed Type omeprazole 40 mg capsule,delayed 40 mg PO BID 03/02/18 06/17/21 History release yfozowta-jjuwufwr-atrrv acid 400 1 tab PO QAM 09/28/19 06/17/21 History mcg-vit K 20 mcg-lycop 300 mcg tablet (Men's Multivitamin) calcium carbonate 500 mg-vitamin 1 tab PO QAM tab 12/18/19 06/17/21 History D3 5 mcg (200 unit) tablet (Calcium 500 + D) vitamin B complex 1 tab PO QAM tab 12/18/19 06/17/21 History calcitriol 0.5 mcg capsule 0.5 mcg PO 3XWK #45 cap 07/16/20 06/17/21 Rx sodium bicarbonate 650 mg tablet 650 mg PO BID #180 tab 07/16/20 06/17/21 Rx apixaban 2.5 mg tablet (Eliquis) 2.5 mg PO BID 07/24/20 06/17/21 History tramadol 50 mg tablet 50 mg PO BID PRN 09/14/20 06/17/21 History metoprolol tartrate 50 mg tablet 50 mg PO BID 11/06/20 06/17/21 History memantine 5 mg tablet 5 mg PO BID #180 tab 12/12/20 06/17/21 Rx Lactobacillus acidophilus 10 10,000 mmu cells PO QDD 01/18/21 06/17/21 History billion cell capsule (Probiotic) nystatin 100,000 unit/gram topical 1 applic TOPICAL BID #30 g 05/26/21 06/17/21 Rx cream triamcinolone acetonide 0.1 % 1 applic TOPICAL BID #30 g 05/26/21 06/17/21 Rx topical cream gabapentin 100 mg capsule 100 mg PO TID 06/01/21 06/17/21 History hydroxyzine HCl 10 mg tablet 10 mg PO QID 06/01/21 06/17/21 History solifenacin 10 mg tablet (Vesicare) 10 mg PO QAM 06/17/21 06/17/21 History tamsulosin 0.4 mg capsule 0.4 mg PO QAM 06/17/21 06/17/21 History Past Med/Surg History Medical History (Updated 06/17/21 @ 12:57 by Tee aRo MD) Abdominal pain Acute cholecystitis Atrial fibrillation no cardioversions/ no pacer. treated with medication and follows with PCP [facility] (bright red blood per rectum) Chronic kidney disease variable creatinines with baseline ~1.6-2.1 > follows with Dr. Vences Colitis Degenerative disc disease Dementia Diabetes mellitus, type 2 diet controlled Dysphagia "trouble keeping foods down" Fall walker and cane -- fall risk. History of bleeding ulcers History of BPH Hx of migraines Hx of sleep apnea no device Osteoarthritis Rectal bleed SBO (small bowel obstruction) Stage 3b chronic kidney disease Substernal chest pain resolved per pt Syncope Syncope and collapse Vitamin D deficiency Surgical History H/O knee surgery "MULTIPLE KNEE SURGERIES"- R/L History of colonoscopy History of esophagogastroduodenoscopy (EGD) History of tooth extraction History of total knee replacement RT/LEFT History of total shoulder replacement LEFT Hx of circumcision 2 yrs ago Hx of transurethral resection of prostate S/P laparoscopic cholecystectomy (09/17/20) Laparoscopic Cholecystectomy with Cholangiogram with akira drain 09/17/20 Dr. Atkinson Family History Sister Family history of diabetes mellitus Social History Smoking Status: Former smoker Tobacco Type: Cigarettes Second Hand Exposure: No; Hx Alcohol Use: No Hx Substance Use: No Preferred Language: Nepali Communication Ability: Effective Manager Hospital Required: No Beliefs That Will Affect Care: None marital status: Current Living Situation: Spouse Current Living Situation Comment: home with Feels Safe at Home: Yes Assistive Devices: Denture - Lower and Glasses Review of Systems Review of Systems: Mild distress and fatigue no headache, no visual changes, patient does have some instability of his vision not quite diplopia due to his vertigo no speech or swallowing issues no chest pain, pressure or palpitations no shortness of breath, cough or wheezes no abdominal pain, nausea or vomiting, diarrhea or constipation no dysuria, has had 3 episodes of hematuria in the last 24 hours no focal joint pain or swelling no back pain, CVA tenderness or radicular pain no bruising, bleeding had a persistent rash to his penis for over a year no focal signs of weakness or numbness or altered sensation does complain of vertigo or instability with gait and some shifting of his vision no complaints of anxiety or depression.. Does take Namenda for memory impairment Physical Exam Physical Exam: The patient appeared well nourished and normally developed. Vital signs as documented. Head exam is normocephalic atraumatic no evidence of recent trauma Neck is without JVD, thyromegaly, or carotid bruits. Lungs are clear to auscultation, no focal loss of breath sounds Cardiac exam, Rhythm is regular.. No murmurs, rubs or gallops. Abdominal exam reveals normal bowel sounds, soft non tender, no masses Extremities are nonedematous and both pedal pulses are present Penis is circumcised erythematous slightly angulated there to touch Neurologic exam is alert and oriented x2 no focal loss of strength or sensation patient has descriptions of visual instability when he moves his head there is no evidence of nystagmus on confrontational examination Skin is without bruises erythema to his penis as described with some mild swelling Psychologically is without concerns for anxiety or depression.. Results & Data Results & Data ([facility]) Vital Signs (Past 12 Hours) Vital Signs Temp Pulse Pulse Resp BP BP Pulse Ox 06/17/21 11:24 88 20 113/57 L 98 06/17/21 09:45 97.2 F L 86 20 102/56 L 95 Diagnostic Findings Chest X-Ray 06/17/21 10:01 XR chest 1V portable CLINICAL HISTORY: dizziness. Evaluate cardiopulmonary status COMPARISON STUDY: 06/06/2021 TECHNIQUE: 1 view of the chest FINDINGS: Single frontal view of the chest demonstrates the cardiomediastinal silhouette to be within normal limits. There is a decreased inspiratory effort with el evation of the hemidiaphragms and crowding of the bronchovascular markings at the lung bases and centrally. The lungs are clear of alveolar opacities. There is no evidence for pleural effusion. There is no evidence for vascular congestion. There is no acute osseous pathology. IMPRESSION: There is a decreased inspiratory effort with otherwise no acute chest disease. ACT 112: Negative or not required by law. Electronically signed by: Chito Shah M.D. 06/17/2021 10:[address] 06/17/21 10:01 CT head/brain wo con CLINICAL HISTORY: syncope COMPARISON STUDY: 01/18/2021 CT DOSE: 788.63 mGycm TECHNIQUE: Standard CT of the Brain was performed without IV contrast. A dose lowering technique was utilized adhering to the principles of ALARA. FINDINGS: Extraaxial space: There is no evidence for subdural hematoma. There are no extra-axial fluid collections. Ventricles and cisterns: The ventricles are mildly dilated bilaterally. There is no evidence for midline shift or mass effect. Parenchyma: There is no subarachnoid or intraparenchymal hemorrhage. There is no evidence for an acute infarct or cerebral edema. There is mild cerebral cortical atrophy and decreased attenuation in the periventricular white matter representing remote small vessel disease. There are no gross mass lesions. Osseous structures: There is no evidence for an acute fracture. The visualized paranasal sinuses are clear. The mastoid air cells are clear bilaterally. Soft tissues: There is no evidence for focal soft tissue swelling. IMPRESSION: No acute intracerebral pathology. Mild cerebral cortical atrophy and remote small vessel disease. ACT 112: Negative or not required by law. Electronically signed by: Chito Shah M.D. 06/17/2021 10:23 AM Code Status & VTE Plan VTE Prophylaxis Plan VTE Prophylaxis will be ordered: Yes PG Care Time/CCT Total # of Minutes Spent Total Time Spent with Patient: Total time spent is greater than 50% in coordination of care (as documented) at patient's floor/unit and/or counseling patient: Coding Level of Care Code INT OBSERVATION CARE 70M LVL 3 Diagnoses Balanitis N48.1 Chronic kidney disease N18.9 Chronic kidney disease stage: unspecified stage Anemia D64.9 Atrial fibrillation I48.91 Atrial fibrillation type: unspecified Vertigo R42 DVT prophylaxis Z29.9 (1) Chronic kidney disease Chronic kidney disease stage: unspecified stage Qualified Code(s): N18.9 - Chronic kidney disease, unspecified (2) Atrial fibrillation Atrial fibrillation type: unspecified Qualified Code(s): I48.91 - Unspecified atrial fibrillation
--- NOTE | 2021-06-17 12:51 | Electrocardiogram Report ---
Test Reason : Blood Pressure : / mmHG Vent. Rate : 087 BPM Atrial Rate : 087 BPM P-R Int : 216 ms QRS Dur : 082 ms QT Int : 342 ms P-R-T Axes : 047 -06 182 degrees QTc Int : 411 ms Atrial fibrillation with premature ventricular or aberrantly conducted complexes Diffuse Nonspecific T wave abnormality Abnormal ECG When compared with ECG of 06-JUN-2021 16:33, Frequent aberrancy now present Confirmed by Josue Pa ([id number]) on 06/17/2021 12:50:26 PM Referred By: Confirmed By:Josue Pa
[2021-06-17] MEDS ORDERED: CARBOHYDRATES FOR HYPOGLYCEMIA PO PRN (18:56)
[2021-06-17] MEDS ORDERED: GLUCOSE 10 TABS/TUBE PO PRN (18:56)
[2021-06-17] MEDS ORDERED: MECLIZINE HCL 25 MG TAB PO PRN (18:56)
[2021-06-17] MEDS ORDERED: ONDANSETRON INJ 2 MG/ML 2 ML VIAL IV PRN (18:56)
[2021-06-17] MEDS ORDERED: DEXTROSE 50% 50 ML SYRINGE IV PRN (18:56)
[2021-06-17] MEDS ORDERED: GLUCAGON FOR INJ 1 MG VIAL SQ PRN (18:56)
[2021-06-17] MEDS ORDERED: traMADol HCL 50 MG TABLET PO PRN (18:56)
[2021-06-17] MEDS ORDERED: GLUCOSE 40% GEL 15 GM TUBE PO PRN (18:56)
[2021-06-17] MEDS ORDERED: ACETAMINOPHEN 325 MG TAB PO PRN (18:56)
[2021-06-17] MEDS ORDERED: ALUMINUM/MAGNESIUM SUSP 30 ML UDC PO PRN (18:56)
[2021-06-17] MEDS ORDERED: MAGNESIUM SULFATE / D5W 1 GM/100 ML BAG IV ONE (20:00)
--- NOTE | 2021-06-17 21:12 | Magnetic Resonance Report ---
MR brain wo con CLINICAL HISTORY: vertigo TECHNIQUE: Multiplanar and multisequence MR images of the brain were obtained without intravenous con trast. Comparison: None available at the time of this dictation. FINDINGS: No abnormal restricted diffusion is identified. Foci of T2 and FLAIR hyperintensity are noted in the paraventricular areas consistent with chronic small vessel ischemic disease. Ex vacuo ventriculomegal y and sulcal enlargement is noted compatible with diffuse encephalomalacia. No extra axial fluid sterling ections are seen. There are no masses, mass effect, or midline shift. The corpus callosum, pituitary gland, and cerebellar tonsils appear grossly unremarkable. Flow voids of the major intracranial arterial vessels are identified. The imaged portions of the para nasal sinuses, mastoid air cells, and orbits are unremarkable. IMPRESSION: No acute abnormalities. ACT 112: Negative or not required by law. Electronically signed by: Anton Mensah M.D. 06/17/2021 9:10 PM
[2021-06-17] MEDS: KETOCONAZOLE 2% CR 15 GM TUBE EXT SCH (21:37)
[2021-06-17] MEDS: SODIUM BICARBONATE 650 MG TAB PO SCH (21:38)
[2021-06-17] MEDS: MEMANTINE HCL 5 MG TAB PO SCH (21:38)
[2021-06-17] MEDS: GABAPENTIN 100 MG CAP PO SCH (21:38)
[2021-06-17] MEDS: PANTOprazole 40 MG TAB PO SCH (21:38)
[2021-06-17] MEDS: METOPROLOL TARTRATE 50 MG TAB PO SCH (21:38)
[2021-06-17] MEDS: AMOXICILLIN/CLAVULANATE 500 MG TAB PO SCH (21:38)
[2021-06-17] MEDS: APIXABAN 2.5 MG TAB PO SCH (21:38)
[2021-06-17] MEDS: INSULIN ASPART PER UNIT SC SCH (21:47)
[2021-06-18 07:51] LABS: BUN Creatinine Ratio 17.4 (10-20); Calcium 8.6 mg/dl (8.5-10.1); Creatinine Clr Calc Pharmacy 30.3 ml/min; Est GFR (Non-African American) 29.4 ml/min; Potassium 5.1 mmol/L (3.5-5.1)
[2021-06-18 07:58] LABS: Estimated Average Glucose 117 mg/dl; Hemoglobin A1C 5.7 % (4.5-5.6)
[2021-06-18] MEDS: INSULIN ASPART PER UNIT SC SCH ×4 (08:06→21:55)
[2021-06-18 08:27] LABS: Folate (Folic Acid) > 22.30 ng/ml (>5.38)
[2021-06-18 08:28] LABS: Vitamin B12 463 pg/ml (193-986)
[2021-06-18] MEDS: PANTOprazole 40 MG TAB PO SCH ×2 (08:50→21:52)
[2021-06-18] MEDS: KETOCONAZOLE 2% CR 15 GM TUBE EXT SCH ×2 (08:50→20:28)
[2021-06-18] MEDS: METOPROLOL TARTRATE 50 MG TAB PO SCH (08:50)
[2021-06-18] MEDS: AMOXICILLIN/CLAVULANATE 500 MG TAB PO SCH (08:50)
[2021-06-18] MEDS: SODIUM BICARBONATE 650 MG TAB PO SCH ×2 (08:50→21:53)
[2021-06-18] MEDS: GABAPENTIN 100 MG CAP PO SCH ×2 (08:51→20:27)
[2021-06-18] MEDS: CEROVITE ADV FORMULA TAB PO SCH (08:51)
[2021-06-18] MEDS: VITAMIN B COMPLEX TAB PO SCH (08:51)
[2021-06-18] MEDS: MEMANTINE HCL 5 MG TAB PO SCH ×2 (08:51→20:27)
[2021-06-18] MEDS: APIXABAN 2.5 MG TAB PO SCH ×2 (08:51→20:26)
[2021-06-18] MEDS: CALCIUM 600MG + VIT D 400 IU TAB PO SCH (08:51)
[2021-06-18] MEDS: TAMSULOSIN HCL 0.4 MG CAP PO SCH (08:51)
[2021-06-18] MEDS ORDERED: CALCITRIOL 0.25 MCG CAPSULE PO SCH (09:00)
[2021-06-18] MEDS: MECLIZINE 12.5 MG TAB PO SCH ×3 (11:33→20:27)
[2021-06-18] MEDS ORDERED: SODIUM CHLORIDE 0.9% 1000ML 500 ML IV ONE (12:00)
[2021-06-18] MEDS: AMOXICILLIN/CLAVULANATE 875 MG TAB PO SCH (17:21)
[2021-06-18] MEDS: ADVANCED PROBIOTIC 1250 MG CAPSULE PO SCH (17:21)
--- NOTE | 2021-06-18 19:12 | Hospitalist Progress Note ---
Date of Service June 18, 2021 Assessment & Plan (1) Vertigo: Plan: BPV vs med side effects (hydroxyzine) vs neurological symptoms from recurrent concussion (3 falls with head trauma over the last few weeks) vs other meclizine TID symptoms improved PT eval noted (vestibular eval was negative) follow carefully (2) Balanitis: Plan: present since his circumcision 2 years ago despite numerous Rx (diflucan, topical steroids, topical antifungals, etc) - no resolution balanitis xerotica obliterans? consult urology for their opinion this issue is very distressing to the patient cont augmentin + ketoconazole for now (3) Atrial fibrillation: Plan: BB eliquis tele stable while here (4) Anemia: Plan: macrocytic b12/folate wnl could be 2nd to mild hypothyroidism - replacing (5) Orthostatic hypotension: Plan: s/p fluid bolus with improvement in BPs lower metoprolol from 50mg BID to 25mg BID (6) Prediabetes: Plan: a1c 5.7% will mention to patient/ but no Rx for now (7) Stage 3b chronic kidney disease: Plan: baseline CrCl low 30s repeat BMP am (8) Elevated TSH: Plan: TSH is high, and he has had other TSH levels high in the past Free T4 is borderline low will start synthroid 25mcg daily may help his memory may help his overall constitution (9) DVT prophylaxis: Plan: eliquis 2.5mg BID Plan: updated at bedside Admission and Anticipated Discharge Date Admission Date: June 17, 2021 Subjective pt's was at bedside - she provided collateral information about the last few weeks/months at home reports he has had at least 3 falls in the last few weeks with each fall he apparently hit his head he says "I just lose my footing" has not had any change in vision the vertigo is improved today he did have mild lightheadedness earlier today - staff had alerted me that his SBP was in the 80s while sitting in the chair gave fluid bolus - repeat orthostatics normal following the bolus his main complaint is that of intense itching of his penis along with "rash" he was circumcised 2 years ago due to phimosis (per urology records) since that time he has been treated NUMEROUS times for balanitis records suggest he has had topical anti-fungals, topical steroids, oral diflucan, and antibiotics despite such his balanitis has never improved in addition, patient was started on gabapentin in May, and just recently was placed on hydroxyzine 20mg q6h prn since starting these meds he has had the falls Review of Systems Review of Systems: gen - no fevers, no chills cv - no cp pulm - no cough, no dyspnea GI - no abd pain, nausea, emesis - ulcerations on head of penis - these are not painful Physical Exam Physical Exam: gen - NAD, poor historian eyes - no nystagmus with tracking; EOMI neck - no JVD heart - irregular, s1 s2 lungs - CTA b/l abd - soft, NT, ND, BS+ ext - no edema, pulses 2+ b/l neuro - strength 5/5 x 4 exts; finger/nose/finger maneuver without ataxia - circumcised; foreskin with adhesions to the glans; scattered ulcerations on head of penis and extending to base of head/start of shaft; erythematous, minimal drainage Results & Data Results & Data ([facility]) Vital Signs (Past 12 Hours) Vital Signs Temp Pulse Pulse Pulse Resp BP Pulse Ox 06/18/21 18:50 36.4 C L 76 20 107/75 93 06/18/21 16:21 78 06/18/21 16:17 36.3 C L 78 18 107/64 95 06/18/21 11:29 36.6 C 86 86 16 80/60 L 97 06/18/21 08:07 36.3 C L 16 124/64 96 Laboratory Results Laboratory Results - last 24 hr 06/18/21 06/18/21 06/18/21 07:02 07:02 07:02 Sodium 142 Potassium 5.1 Chloride 117 H Carbon Dioxide 19 L Anion Gap 6 BUN 35 H Creatinine 2.01 H Est Cr Clr Drug Dosing 30.3 Est GFR ( Amer) 34.0 Est GFR (Non-Af Amer) 29.4 BUN/Creatinine Ratio 17.4 Glucose 141 H POC Glucose Estimat Average Glucose 117 Hemoglobin A1c 5.7 H Calcium 8.6 Magnesium Vitamin B12 463 Folate > 22.30 06/18/21 06/18/21 06/18/21 07:02 07:50 11:27 Sodium Potassium Chloride Carbon Dioxide Anion Gap BUN Creatinine Est Cr Clr Drug Dosing Est GFR ( Amer) Est GFR (Non-Af Amer) BUN/Creatinine Ratio Glucose POC Glucose 144 H 117 H Estimat Average Glucose Hemoglobin A1c Calcium Magnesium 1.8 Vitamin B12 Folate 06/18/21 06/18/21 16:55 20:21 Sodium Potassium Chloride Carbon Dioxide Anion Gap BUN Creatinine Est Cr Clr Drug Dosing Est GFR ( Amer) Est GFR (Non-Af Amer) BUN/Creatinine Ratio Glucose POC Glucose 106 H 119 H Estimat Average Glucose Hemoglobin A1c Calcium Magnesium Vitamin B12 Folate PG Care Time/CCT Total # of Minutes Spent Total Time Spent with Patient: Total time spent is greater than 50% in coordination of care (as documented) at patient's floor/unit and/or counseling patient: Coding Level of Care Code 37126 Subseq Obs Care Lvl 3 Diagnoses Vertigo R42 Balanitis N48.1 Atrial fibrillation I48.91 Atrial fibrillation type: unspecified Anemia D64.9 DVT prophylaxis Z29.9 Orthostatic hypotension I95.1 Prediabetes R73.03 Stage 3b chronic kidney disease N18.32 Elevated TSH R79.89 (1) Atrial fibrillation Atrial fibrillation type: unspecified Qualified Code(s): I48.91 - Unspecified atrial fibrillation
[2021-06-18] MEDS: METOPROLOL TARTRATE 25 MG TAB PO SCH (20:28)
[2021-06-19 06:21] LABS: Hemoglobin 10.8 g/dL (14.0-18.0); Mean Corpuscular Hgb Conc 31.8 g/dL (32-36); Mean Corpuscular Volume 100.6 fL (80-100); Platelet Count 174 K/uL (130-400); RDW Coefficient of Variation 14.1 % (11.5-14.5); RDW Standard Deviation 51.9 fL (36.4-46.3); Red Blood Count 3.38 M/uL (4.7-6.1); White Blood Count 5.84 K/uL (4.8-10.8)
[2021-06-19] MEDS ORDERED: LEVOTHYROXINE SODIUM 25 MCG TABLET PO SCH (06:30)
[2021-06-19 06:56] LABS: Calcium 8.6 mg/dl (8.5-10.1); Creatinine Clr Calc Pharmacy 28.2 ml/min; Est GFR (African American) 31.6 ml/min; Est GFR (Non-African American) 27.2 ml/min; Potassium 5.2 mmol/L (3.5-5.1)
[2021-06-19] MEDS: APIXABAN 2.5 MG TAB PO SCH (08:38)
[2021-06-19] MEDS: GABAPENTIN 100 MG CAP PO SCH (08:39)
[2021-06-19] MEDS: PANTOprazole 40 MG TAB PO SCH (08:39)
[2021-06-19] MEDS: CEROVITE ADV FORMULA TAB PO SCH (08:39)
[2021-06-19] MEDS: CALCIUM 600MG + VIT D 400 IU TAB PO SCH (08:40)
[2021-06-19] MEDS: AMOXICILLIN/CLAVULANATE 875 MG TAB PO SCH ×2 (08:40→17:05)
[2021-06-19] MEDS: TAMSULOSIN HCL 0.4 MG CAP PO SCH (08:40)
[2021-06-19] MEDS: VITAMIN B COMPLEX TAB PO SCH (08:40)
[2021-06-19] MEDS: SODIUM BICARBONATE 650 MG TAB PO SCH (08:40)
[2021-06-19] MEDS: MEMANTINE HCL 5 MG TAB PO SCH (08:40)
[2021-06-19] MEDS: MECLIZINE 12.5 MG TAB PO PRN ×2 (08:41→17:06)
[2021-06-19] MEDS: KETOCONAZOLE 2% CR 15 GM TUBE EXT SCH (08:41)
[2021-06-19] MEDS: METOPROLOL TARTRATE 25 MG TAB PO SCH (08:43)
[2021-06-19] MEDS: INSULIN ASPART PER UNIT SC SCH ×3 (08:47→17:05)
[2021-06-19] MEDS ORDERED: PATIROMER CALCIUM SORBITEX 8.4 GM PACK PO ONE (09:00)
--- NOTE | 2021-06-19 10:13 | Urology Consultation ---
Date of Consultation June 19, 2021 Assessment & Plan (1) Balanitis: 86 yo M with multiple comorbidities admitted for intractable vertigo and s/p fall. - Urology consulted for evaluation of balanitis - Patient was examined in conjunction with Dr. Hoffmann, patient's primary urologist - On exam, balanitis is very much improved from prior to his circumcision - He does have some remaining ulcerations on the head of the penis that have been refractory to combination therapy of topical antifungal and steroid creams - He has also been treated with oral Diflucan and antibiotics in the past without resolution - Recommend continue with course of topical treatment at this time - antifungal/ steroid combination - Strongly recommend dermatology evaluation for further management given refractory nature - Patient also concerned with ED during visit today, which can be discussed further in outpatient clinic - he is agreeable - Patient can follow-up as with our service outpatient as scheduled Thank you for allowing us to participate in the acute care of Mr. Watson. Please reconsult us with additional questions, concerns or changes in patient status. History of Present Illness Reason for Consultation: Balanitis Requesting Physician: Dr. Martin Attending Physician: Bladimir Martin History of Present Illness 86 yo M with past medical history of type 2 diabetes, atrial fibrillation on chronic anticoagulation, CKD, hx of bariatric surgery, BPH, and balanitis ad mitted for intractable vertigo and s/p fall. Patient presented to [facility] ED on 06/17/21 s/p fall experienced after dizziness/near syncopal episode. He is on chronic anticoagulation for afib. Afebrile on arrival, lab work reviewed and showed no leukocytosis, Hgb 11.3, creatinine 2.27, INR 1.1. UA 1+ leukocytes, 1-5 WBCs, 0-4 RBCs, 20-30 epithelials, negative for bacteria and nitrates. Urine culture collected and suggests contamination with three organisms present, all high counts. CT head showed no acute pathology. He was admitted to hospital medicine service for further evaluation and management of syncope and vertigo. Urology service consulted during admission for balanitis. Patient is known to our service, follows with Dr. 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 Patient seen and examined this AM at bedside in conjunction with Dr. Hoffmann. Patient awake, alert and sitting up in bedside chair. Overall feeling better since admission, vertigo improved. Reports having falls over the last few weeks. Reports intermittent and ongoing itching and rash to penis. Not painful. He has been using topical antifungals and steroids without resolution. This issue is bothersome to him. Pt tearful during interview. Reports he would like to be sexually active, also struggling with ED. No fever or chills. No additional complaints at this time. Allergies Allergy/AdvReac Type Severity Reaction Status Date / Time No Known Allergies Allergy Verified 06/17/21 10:58 Home Medications Medication Instructions Recorded Confirmed Type omeprazole 40 mg capsule,delayed 40 mg PO BID 03/02/18 06/17/21 History release hdgnrvby-dgehyrsl-mnvxz acid 400 1 tab PO QAM 09/28/19 06/17/21 History mcg-vit K 20 mcg-lycop 300 mcg tablet (Men's Multivitamin) calcium carbonate 500 mg-vitamin 1 tab PO QAM tab 12/18/19 06/17/21 History D3 5 mcg (200 unit) tablet (Calcium 500 + D) vitamin B complex 1 tab PO QAM tab 12/18/19 06/17/21 History calcitriol 0.5 mcg capsule 0.5 mcg PO 3XWK #45 cap 07/16/20 06/17/21 Rx sodium bicarbonate 650 mg tablet 650 mg PO BID #180 tab 07/16/20 06/17/21 Rx apixaban 2.5 mg tablet (Eliquis) 2.5 mg PO BID 07/24/20 06/17/21 History tramadol 50 mg tablet 50 mg PO BID PRN 09/14/20 06/17/21 History metoprolol tartrate 50 mg tablet 50 mg PO BID 11/06/20 06/17/21 History memantine 5 mg tablet 5 mg PO BID #180 tab 12/12/20 06/17/21 Rx Lactobacillus acidophilus 10 10,000 mmu cells PO QDD 01/18/21 06/17/21 History billion cell capsule (Probiotic) nystatin 100,000 unit/gram topical 1 applic TOPICAL BID #30 g 05/26/21 06/17/21 Rx cream triamcinolone acetonide 0.1 % 1 applic TOPICAL BID #30 g 05/26/21 06/17/21 Rx topical cream gabapentin 100 mg capsule 100 mg PO TID 06/01/21 06/17/21 History hydroxyzine HCl 10 mg tablet 10 mg PO QID 06/01/21 06/17/21 History solifenacin 10 mg tablet (Vesicare) 10 mg PO QAM 06/17/21 06/17/21 History tamsulosin 0.4 mg capsule 0.4 mg PO QAM 06/17/21 06/17/21 History Patient History Medical History Abdominal pain Acute cholecystitis Atrial fibrillation no cardioversions/ no pacer. treated with medication and follows with PCP BRBPR (bright red blood per rectum) Chronic kidney disease variable creatinines with baseline ~1.6-2.1 > follows with Dr. Vences Colitis Degenerative disc disease Dementia Diabetes mellitus, type 2 diet controlled Dysphagia "trouble keeping foods down" Fall walker and cane -- fall risk. History of bleeding ulcers History of BPH Hx of migraines Hx of sleep apnea no device Osteoarthritis Rectal bleed SBO (small bowel obstruction) Stage 3b chronic kidney disease Substernal chest pain resolved per pt Syncope Syncope and collapse Vitamin D deficiency Surgical History H/O knee surgery "MULTIPLE KNEE SURGERIES"- R/L History of colonoscopy History of esophagogastroduodenoscopy (EGD) History of tooth extraction History of total knee replacement RT/LEFT History of total shoulder replacement LEFT Hx of circumcision 2 yrs ago Hx of transurethral resection of prostate S/P laparoscopic cholecystectomy (09/17/20) Laparoscopic Cholecystectomy with Cholangiogram with akira drain 09/17/20 Dr. Atkinson Family History Sister Family history of diabetes mellitus Social History Smoking Status: Former smoker Tobacco Type: Cigarettes Second Hand Exposure: No; Hx Alcohol Use: No Hx Substance Use: No Preferred Language: Salvadorean Communication Ability: Effective Occupational Psychologist Required: No Beliefs That Will Affect Care: None marital status: Current Living Situation: Spouse Current Living Situation Comment: home with Feels Safe at Home: Yes Assistive Devices: Walker Review of Systems Constitutional: as per Subjective / HPI Integumentary: as per Subjective / HPI Neurologic: as per Subjective / HPI Psychiatric: as per Subjective / HPI Physical Exam Constitutional: well developed and well nourished; no acute distress Respiratory: no respiratory distress and no labored breathing Cardiovascular: Extremities: no pedal edema Gastrointestinal (Abdomen): Inspection/Auscultation: abdomen normal to inspection; abdomen not distended Musculoskeletal: Head/Neck/Chest: normocephalic and head atraumatic Psychiatric: Orientation: alert and oriented to person tearful during interview Genitourinary: + circumcised small ulcerations on head of penis, erythema of the glans, no drainage Results & Data ([facility]) Vital Signs (Past 12 Hours) Vital Signs Temp Pulse Pulse Resp BP Pulse Ox 06/19/21 07:55 36.7 C 78 16 112/76 93 06/19/21 03:00 36.8 C 72 20 113/66 94 06/18/21 23:13 84 06/18/21 23:00 36.6 C 76 20 107/62 96 PG Care Time/CCT Total # of Minutes Spent Total Time Spent with Patient: Total time spent is greater than 50% in coordination of care (as documented) at patient's floor/unit and/or counseling patient: Coding Level of Care Code 44343 Inpt Consult Level 2 Diagnoses Balanitis N48.1
--- NOTE | 2021-06-19 15:29 | Discharge Summary ---
Date of Service June 19, 2021 Discharge Data Allergies Allergy/AdvReac Type Severity Reaction Status Date / Time No Known Allergies Allergy Verified 06/17/21 10:58 Consultations 06/17/21 12:15 ED Decision to Admit Stat 06/18/21 14:51 Consult Urology Routine Ordered Studies 06/17/21 10:01 CT head/brain wo con Stat 06/17/21 18:56 MR brain wo con Routine Hospital Course (1) Vertigo: BPV vs med side effects (hydroxyzine) vs neurological symptoms from recurrent concussion (3 falls with head trauma over the last few weeks) vs other meclizine TID symptoms improved PT eval noted (vestibular eval was negative) follow carefully (2) Balanitis: present since his circumcision 2 years ago despite numerous Rx (diflucan, topical steroids, topical antifungals, etc) - no resolution balanitis xerotica obliterans? consult urology for their opinion this issue is very distressing to the patient cont augmentin + ketoconazole for now (3) Atrial fibrillation: BB eliquis tele stable while here (4) Anemia: macrocytic b12/folate wnl could be 2nd to mild hypothyroidism - replacing (5) Orthostatic hypotension: s/p fluid bolus with improvement in BPs lower metoprolol from 50mg BID to 25mg BID (6) Prediabetes: a1c 5.7% will mention to patient/ but no Rx for now (7) Stage 3b chronic kidney disease: baseline CrCl low 30s repeat BMP am (8) Elevated TSH: TSH is high, and he has had other TSH levels high in the past Free T4 is borderline low will start synthroid 25mcg daily may help his memory may help his overall constitution (9) DVT prophylaxis: eliquis 2.5mg BID updated at bedside Home Health Attestation I certify that this patient is under my care and that I, or a physicians assistant program manager working with me, had a face to-face encounter that meets the home health [id number] encounter requirements with this patient. The encounter with the patient was in whole, or in part, for the following medical condition, which is the primary reason for home health care (list medical condition): I certify that, based on my findings, the following services are medically necessary home health services: My clinical findings support the need for the above services because: Further, I certify that my clinical findings support that this patient is homebound (i.e. absences from home require considerable and taxing effort and are for medical reasons or zoroastrianism services or infrequently or of short duration when for other reasons) because: Certification for Home Health Services: Based on the above findings, I certify that this patient is confined to the home and needs intermittent care home care, physical therapy and/or speech therapy or continues to need occupational therapy. The patient is under my care, and I have initiated the establishment of the plan of care. This patient will be followed by a physician who will periodically review the plan of care. Discharge Plan Discharge Items Patient Disposition: Home - Self-Care Reason For Visit: FALL Discharge Diagnosis: 1. dizziness/vertigo - resolved 2. recurrent falls - home physical therapy recommended 3. mild hypothyroidism (see handout) 4. balanitis (chronic penile problem) 5. low blood pressure - improved Activity: Resume your previous activity Non-emergency contact: Primary Care Provider, Specialist and Urologist Call non-emergency contact if: you have any medication questions, your symptoms worsen and you have a fever Follow-up/Referrals: Spencer Baltazar MD [Primary Care Provider] - (see Dr Baltazar -- or your new primary care doctor -- within a week) Bret Costa MD [Outside Practitioners] - (first available, but ideally within 3-4 weeks. 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 ) Diet: Low Potassium (2gm) Fluids: 1800ml (7 cups) Ambulatory Orders: Basic Metabolic Panel (Routine) Timeframe: 5 Days Location: Determined by Patient Ordered By: Bladimir Cole Attending Provider Instructions: Mr Watson, You were hospitalized at [facility] for dizziness/vertigo. In addition, you had been having falls recently, some of which led to hitting your head. You also complained about ongoing itching and troubles with your genitalia. The dizziness/vertigo may have been from medication side effects (hydroxyzine, gabapentin, etc), a condition called BPV (benign positional vertigo - a condition of the inner ear that leads to vertigo), concussion, or other factors. The dizziness/vertigo improved rather quickly making medication side effects and BPV the top 2 causes. We performed an MRI of the brain and this did NOT show stroke, blood, or tumor. On 06/18/21 we noted that your blood pressures were low, especially when you were standing up. We made some changes in your blood pressure medication for this. Finally, [facility] saw you for the penis condition. They recommend that you see dermatology again for their opinion on why the issue is not clearing up. Recommendations - 1. Our physical therapist has recommended home PT. We will arrange this for you. 2. Please STOP the following medications - * ELIQUIS * Hydroxyzine * Gabapentin 3. Please note that the doses of the following medications have been CHANGED - * metoprolol 25mg twice daily (you had been taking 50mg twice daily) * sodium bicarbonate 1300mg twice daily (you had been taking 650mg twice daily) 4. For any dizziness/vertigo you may take the following medication - * meclizine 12.5mg every 8 hours as needed for dizziness 5. It appears that you have the beginning of a condition called "hypothyroidism" (see handout). This is when the thyroid gland is underactive. Your hypothyroidism is mild. [id number] I would recommend that you start a medication called synthroid (levothyroxine). Take 25mcg once daily every mo rning. You will need your thyroid level rechecked in 6-8 weeks. Your family doctor can do this for you. It is called a "TSH" level. 6. I spoke with Dr Vences - your kidney doctor - and we are increasing the sodium bicarbonate tablets as noted above. Please have a blood draw in 5 days to recheck your kidney function and potassium level. I placed a lab order for you. You can go to any [facility] lab for this. 7. We will contact you regarding the follow-up appointment with dermatology for your ongoing penile issue. 8. I am concerned about your frequent falls and the head injuries. People who take Eliquis blood thinner and hit their heads are at risk of bleeding in the brain. I would recommend you stop your ELIQUIS until you see your family doctor. If the falls and head injuries stop perhaps the medication can be resumed in the future. Return to [facility] if - * you have severe dizziness/vertigo that is not responding to the meclizine medication * you have difficulty walking, trouble speaking, weakness of an arm or leg, trouble swallowing, etc * you have shortness of breath or chest pain * any other concerns It was our pleasure to care for you at [facility]! Dr Martin Pending Studies at Discharge: No Stand-Alone Forms: My [facility], Smoking Cessation Medications and DC Order Prescriptions: New meclizine 12.5 mg Tablet 12.5 mg PO TID PRN (Reason: dizziness or vertigo) Qty: 20 RF: 0 levothyroxine [Synthroid] 25 mcg Tablet 25 mcg PO DAILYBB Qty: 30 RF: 3 Continued nystatin 100,000 unit/gram cream 1 applic topical BID Qty: 30 RF: 0 triamcinolone acetonide 0.1 % cream 1 applic topical BID Qty: 30 RF: 0 memantine 5 mg tablet 5 mg PO BID Qty: 180 RF: 1 calcitriol 0.5 mcg capsule 0.5 mcg PO 3XWK Qty: 45 RF: 3 Men's Multivitamin 400-20-300 mcg Tablet 1 tab PO QAM RF: 0 calcium carbonate-vitamin D3 [Calcium 500 + D] 500 mg(1,250mg) -200 unit tablet 1 tab PO QAM RF: 0 vitamin B complex Tablet 1 tab PO QAM RF: 0 omeprazole 40 mg Capsule,Delayed Release(Dr/Ec) 40 mg PO BID RF: 0 Probiotic 10 billion cell Capsule 10,000 mmu cells PO QDD RF: 0 tamsulosin 0.4 mg capsule 0.4 mg PO QAM RF: 0 solifenacin [Vesicare] 10 mg tablet 10 mg PO QAM RF: 0 tramadol 50 mg tablet 50 mg PO BID PRN (Reason: Pain) RF: 0 Changed sodium bicarbonate 650 mg tablet 1,300 mg PO BID Qty: 240 RF: 3 metoprolol tartrate 50 mg tablet 25 mg PO BID Qty: 60 RF: 0 Discontinued Eliquis 2.5 mg tablet 2.5 mg PO BID RF: 0 gabapentin 100 mg capsule 100 mg PO TID RF: 0 hydroxyzine HCl 10 mg tablet 10 mg PO QID RF: 0 Krames/Other Patient Handouts: ED Hypothyroidism Admission Data Admit Date/Time: 06/17/21 12:24 Attending Provider: Bladimir Martin Admit Provider: Tee Rao Primary Care Provider: Spencer Baltazar Other Providers: Tee Rao ; Pablo Ascencio Coding Diagnoses Vertigo R42 Balanitis N48.1 Atrial fibrillation I48.91 Atrial fibrillation type: unspecified Anemia D64.9 Orthostatic hypotension I95.1 Prediabetes R73.03 Stage 3b chronic kidney disease N18.32 Elevated TSH R79.89 DVT prophylaxis Z29.9
[2021-06-19] MEDS: ADVANCED PROBIOTIC 1250 MG CAPSULE PO SCH (17:06)
== END 2021-06-19 18:00 | disposition home or self-care (01) ==
LOC: ED 09:46 → EDINP 09:46 → SUATTDRO 12:24 → EDINP 19:04 → 2N 21:26

== ENCOUNTER 2022-07-03 11:59 | Observation (INO) ==
[2022-07-03] MEDS ORDERED: fentaNYL citrate 100 MCG/2 ML VIAL IV STA (12:13)
[2022-07-03] MEDS ORDERED: SODIUM CHLORIDE 0.9% 500 ML IV ONE (12:13)
[2022-07-03] MEDS ORDERED: ONDANSETRON INJ 2 MG/ML 2 ML VIAL IV STA (12:13)
--- NOTE | 2022-07-03 12:25 | Emergency Department Note ---
Impression & Plan Left-sided chest pain, Acute left flank pain, Hypomagnesemia, Generalized weakness ED Provider Note Name: ANABELLE WILLIAMSON Age: 87 Sex: M Arrives Via: Walk-In Informant: Patient, ED Provider: Chris Faustin MD Chief Complaint: Chest pain Impression: As per impressions above Medical Decision Makin-year-old gentleman with extensive past medical history though no overt CAD history. Arrives for evaluation of left-sided chest pain. On initial evaluation pain is much more likely coming from the left upper quadrant source. He does have some tenderness palpation of the left upper quadrant does radiate light pain periodic rating to left testicle. On repeat exam though he said he had had some left upper chest pain. Reviewing chart he is diagnosis of mild dementia as well. Initial EKG is unremarkable. I did get a CT of the abdomen pelvis which reveals no acute findings. On repeat examination is not have any peritonitis and left upper quadrant pain seems to have resolved. He had received a small dose of fentanyl prior to this. In addition patient's notes he has been somewhat weak. His laboratory work-up reveals moderately low magnesium which may have to do with generalized weakness. Given he is already anticoagulated for PAF I do not feel further anticoagulation for the possible chest pain is indicated. I did hold off on full dose aspirin at this time he has renal insufficiency at baseline thus I do not feel CT with IV contrast would be indicated. His pain is not consistent with ischemia. He has no clear evidence of infectious etiology. He was discussed with the hospitalist for further management Prior Medical Record and Triage/Nursing Notes reviewed by Me Chart review. 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 Differentials:ACS, dissection, PE, renal colic, diverticulitis, obstruction, pyelonephritis, electrolyte imbalance amongst many other pathologies considered Vital Signs: reviewed and remarkable for no significant abnormalities Interventions: Fentanyl 25 mg IV, Zofran 4 mg IV, normal saline bolus IV, magnesium 1 g IV Labs:Reviewed and remarkable for hypomagnesemia, normal troponin Imaging:CT abdomen pelvis without contrast reviewed imaging by myself as well as interpreted by radiologist no acute findings. EKG:As per my interpretation. Indication chest pain. A. fib at 74 bpm and a QTC of 404. When compared to EKG of May 03, 2022 no significant change. There is no ischemic changes. Cardiac/Tele Monitoring: Cardiac Monitoring: An Order was placed for continuous cardiac monitoring. The monitor shows a rate of 70 with an afib rhythm. Consults:Dr Carin CASTRO Hospitalist for hospitalization Plan: Disposition:Hospitalization. Condition: Good History of Present Illness:87-year-old male arrives for evaluation of left upper quadrant pain. Patient with sudden onset of pain 2 hours ago. Pain does not radiate. Associate with nothing. Not better or worse with any movement. No medications prior to arrival. No history of similar symptoms. Denies any history of cardiac artery disease or previous stenting. He does have a history of A. fib and is on an anticoagulant. States that left flank pain is radiating into his left groin. Denies nausea, vomiting, shortness of breath, back pain, urinary symptoms, diarrhea, leg swelling, headache or other concerning signs or symptoms. Denies a history of kidney stones. Patient's notes that patient has been a bit weaker more tired over the last few weeks. Denies any falls or injuries. Past History:See Below Home Medications:See Below Allergies:NKDA Vitals:Blood Pressure: 113/82, Pulse 76, RR 18, T 36.9C, O2 96% on RA Physical Exam: GENERAL: Patient is uncomfortable appearing and in moderate distress. Crying EYES: No scleral icterus, unremarkable pupils. ENT: Mucous membranes moist, no nasal congestion. NECK: No masses appreciated, nomeningismus, trachea is midline. RESPIRATORY: No dyspnea. Clear to auscultation and equal bilaterally. No wheeze, no rhonchi. CARDIOVASCULAR: Regular rate and rhythm.No murmurs, rubs, gallops appreciated. GASTROINTESTINAL: Mild LUQ TTP, Abdomen soft, non-tender, no peritonitis.Bowel sounds positive.No masses appreciated. BACK: No midline tenderness, no CVA tenderness EXTREMITIES: Normal motion all extremities, no cyanosis, no edema. NEUROLOGIC: Alert and oriented, no focal weakness SKIN: No rash, no jaundice, no diaphoresis. PSYCH: Appropriate GCS: 15 ED Course: Times/Reassessments: Stable feeling much better no further pain agreeable to hospitalization Chris Faustin MD Past Med/Surg History Medical History Abdominal pain Acute cholecystitis Atrial fibrillation BRBPR (bright red blood per rectum) Chronic kidney disease Chronic renal insufficiency, stage IV (severe) Colitis Degenerative disc disease Dementia Diabetes mellitus, type 2 Dysphagia Fall History of bleeding ulcers History of BPH Hx of migraines Hx of sleep apnea Osteoarthritis Rectal bleed SBO (small bowel obstruction) Secondary hyperparathyroidism of renal origin Stage 3b chronic kidney disease Substernal chest pain Syncope Syncope and collapse Vitamin D deficiency Surgical History H/O knee surgery History of colonoscopy History of esophagogastroduodenoscopy (EGD) History of tooth extraction History of total knee replacement History of total shoulder replacement Hx of circumcision Hx of transurethral resection of prostate S/P laparoscopic cholecystectomy (09/17/20) Family History Sister Family history of diabetes mellitus Social History Smoking Status: Former smoker Tobacco Type: Cigarettes Second Hand Exposure: No; Hx Alcohol Use: No Hx Substance Use: No Preferred Language: Faroese Communication Ability: Effective Sidehand Required: No Beliefs That Will Affect Care: None marital status: Current Living Situation: Spouse Current Living Situation Comment: home with current occupational status: retired Feels Safe at Home: Yes Seatbelt Use: always Assistive Devices: Walker and Wheelchair Allergies Allergies Allergy/AdvReac Type Severity Reaction Status Date / Time No Known Allergies Allergy Verified 05/19/22 15:25 Home Meds Home Medications Medication Instructions Recorded Confirmed [id number] acid 400 1 tab PO QAM 09/28/19 07/03/22 mcg-vit K 20 mcg-lycop 300 mcg tablet (Men's Multivitamin) calcium carbonate 500 mg-vitamin 1 tab PO QAM 12/18/19 07/03/22 D3 5 mcg (200 unit) tablet (Calcium 500 + D) vitamin B complex 1 tab PO QAM 12/18/19 07/03/22 Lactobacillus acidophilus 10 10,000 mmu cells PO QDD 01/18/21 07/03/22 billion cell capsule (Probiotic) doxycycline monohydrate 100 mg 100 mg PO DAILY 02/02/22 07/03/22 capsule clobetasol 0.05 % topical lotion 1 applic topical DAILY 04/17/22 07/03/22 in pump Previous Rx's Medication Instructions Recorded calcitriol 0.5 mcg capsule 0.5 mcg PO DAILY #90 caps 07/30/21 memantine 5 mg tablet 5 mg PO BID #180 tabs 01/16/22 apixaban 2.5 mg tablet (Eliquis) 2.5 mg PO BID #180 tabs 02/20/22 levothyroxine 25 mcg tablet 25 mcg PO DAILYBB #30 tabs 02/20/22 (Synthroid) sodium bicarbonate 650 mg tablet 1,300 mg PO BID Stomach upset #240 04/13/22 tabs mirabegron 50 mg tablet,extended 50 mg PO DAILY #90 tabs 04/17/22 release 24 hr (Myrbetriq) metoprolol tartrate 50 mg tablet 25 mg PO BID 90 days #90 tabs 05/19/22 omeprazole 40 mg capsule,delayed 40 mg PO BID 90 days #180 caps 05/19/22 release gabapentin 100 mg capsule 100 mg PO BID #180 caps 06/19/22 tamsulosin 0.4 mg capsule 0.4 mg PO DAILY #90 caps 06/19/22 Results & Data (ED) Vital Signs Vital Signs - 24 hr 07/03/22 11:59 07/03/22 13:48 Temperature 36.9 C Temperature Source Temporal Artery Scan Pulse Rate 76 Pulse Rate [Left Finger] 78 Pulse Rhythm [Left Finger] Regular Pulse Strength [Left Finger] Normal Respiratory Rate 18 18 Respiratory Effort / Characteristics Non-Labored Spontaneous Non-Labored Spontaneous Respiratory Depth Normal Normal Respiratory Pattern Regular Regular Blood Pressure 113/82 Blood Pressure [Left Arm] 117/79 Blood Pressure Mean 92 Blood Pressure Mean [Left Arm] 91 Blood Pressure Position Sitting Blood Pressure Position [Left Arm] Lying Pulse Oximetry 96 98 Oxygen Delivery Method Room Air Room Air Sepsis Recent Fever Within 48 Hours No Sepsis New/Unexplained Change in Mental Status No Sepsis Action Taken by Nursing No Action Required Laboratory Data 07/03/22 12:11 07/03/22 12:11 Lab Results 07/03/22 07/03/22 07/03/22 Range/Units 12:11 12:11 12:48 WBC 6.23 (4.8-10.8) K/ul RBC 3.69 L (4.70-6.10) M/uL Hgb 10.7 L (14.0-18.0) g/dl Hct 34.2 L (42.0-52.0) % MCV 92.7 (80.0-100.0) fL MCH 29.0 (25.0-34.0) pg MCHC 31.3 L (32.0-36.0) g/dL RDW Std Deviation 52.3 H (36.4-46.3) fL RDW Coeff of Yinka 15.6 H (11.5-14.5) % Plt Count 240 (130-400) K/uL MPV 10.5 (9.4-12.4) fL Immature Gran % (Auto) 0.2 % Neut % (Auto) 59.2 % Lymph % (Auto) 25.0 % Collier % (Auto) 10.3 % Eos % (Auto) 4.3 % Baso % (Auto) 1.0 % Neut # (Auto) 3.69 (1.40-6.50) K/uL Lymph # (Auto) 1.56 (1.2-3.4) K/uL Collier # (Auto) 0.64 H (0.11-0.59) K/uL Eos # (Auto) 0.27 (0-0.50) K/uL Baso # (Auto) 0.06 (0-0.2) K/uL Immature Gran # (Auto) 0.01 (0.01-0.20) K/uL Sodium 142 (136-145) mmol/L Potassium 4.5 (3.5-5.1) mmol/L Chloride 115 H (98-107) mmol/L Carbon Dioxide 23 (21-32) mmol/L Anion Gap 4 (3-11) BUN 31 H (6-23) mg/dl Creatinine 2.06 H (0.6-1.4) mg/dl Est Cr Clr Drug Dosing Not Reportable Est GFR ( Amer) 32.8 ml/min Est GFR (Non-Af Amer) 28.3 ml/min BUN/Creatinine Ratio 15.0 (10-20) Glucose 90 (70-99(Fasting)) mg/dl Calcium 8.5 (8.5-10.1) mg/dl Magnesium 1.4 L (1.7-2.4) mg/dl Total Bilirubin 0.4 (0.2-1.0) mg/dl Direct Bilirubin 0.1 (0-0.2) mg/dl AST 18 (13-39) U/L ALT 15 (7-52) U/L Alkaline Phosphatase 69 (34-104) U/L Troponin I High Sens 9.7 (0-20) pg/ml Total Protein 6.3 (6.0-8.3) gm/dl Albumin 3.4 (3.4-5.0) gm/dl Lipase 22 (11-82) U/L SARS-CoV-2, RNA, NAAT NEGATIVE (NEGATIVE) Administered Medications Discontinued Medications Fentanyl Citrate (Fentanyl Citrate 100 Mcg/2 Ml Vial) 25 mcg IV NOW STA Stop: 07/03/22 12:14 Last Admin: 07/03/22 12:36 Dose: 25 mcg Documented By: FARNAZ Sodium Chloride (Nss) 500 mls @ 999 mls/hr IV .Q31M ONE Stop: 07/03/22 12:43 Last Infusion: 07/03/22 13:10 Dose: 0 mls/hr Documented By: Admin: 07/03/22 12:36 Dose: 999 mls/hr Documented By: FARNAZ Magnesium Sulfate/Dextrose (Magnesium Sulfate / D5w) 1 gm in 100 mls @ 100 mls/hr IV NOW STA Stop: 07/03/22 14:35 Last Admin: 07/03/22 13:50 Dose: 100 mls/hr Documented By: FARNAZ Ondansetron HCl (Ondansetron Inj 2 Mg/Ml 2 Ml Vial) 4 mg IV NOW STA Stop: 07/03/22 12:14 Last Admin: 07/03/22 12:36 Dose: 4 mg Documented By: FARNAZ Imaging Data Radiologist's Impression: Abdomen/Pelvis CT 07/03/22 12:13 CT abd pelvis wo con CLINICAL HISTORY: Left Flank pain TECHNIQUE: Helical axial images of the abdomen and pelvis were obtained. Automated dose lowering techniques and/or adjustment according to patient size were utilized for this exam. This exam was performed without intravenous contrast. CT DOSE: 957.77 mGy.cm COMPARISON: Comparison is made to CT abdomen pelvis 10/04/2021 FINDINGS: Lower chest: Cardiomegaly is partially visualized. Severe atherosclerotic disease is seen. Atelectasis versus scarring is seen in the lung bases. Liver: Unremarkable. No focal lesions are seen. Gallbladder and biliary tree: Patient is status post cholecystectomy. No intra- or extrahepatic biliary ductal dilation. Pancreas: Fatty replacement of the pancreas is seen. Spleen: Unremarkable. Adrenals: Unremarkable. Kidneys and ureters: Kidneys are mildly atrophic in appearance. No evidence of hydronephrosis or hydroureter. Bladder: Unremarkable. Reproductive organs: Prostatomegaly is seen. Bowel: Diverticulosis is seen without evidence of diverticulitis. The appendix is normal. Patient is status post gastric bypass surgery with a hiatal hernia. Lymph nodes Retroperitoneal: Unremarkable. Pelvic: Unremarkable. Mesenteric: Unremarkable. Peritoneum: Normal. Vessels: Atherosclerotic calcifications are seen. Abdominal wall: Unremarkable. Bones: Old healed rib fractures are seen. Degenerative changes are seen in the s pine. IMPRESSION: 1. No acute abnormalities and in particular no evidence of hydronephrosis or obstructive stone. 2. Diverticulosis without diverticulitis. 3. Additional findings as above. ACT 112: Negative or not required by law. Electronically signed by: Anton Mensah M.D. 07/03/2022 1:27 PM Chest X-Ray 07/03/22 13:44 XR chest 1V portable CLINICAL HISTORY: Atypical chest pain. COMPARISON STUDY: Chest CT October 04, 2021 and chest radiograph May 03, 2022. FINDINGS: Left shoulder arthroplasty is incidentally noted. There is no pneumothorax or pleural effusion. Minimal left basilar opacity favors atelect asis. No consolidation to suggest pneumonia. Cardiomediastinal silhouette is stable. No change in appearance of the chest. IMPRESSION: No acute cardiopulmonary findings. No change in appearance of the chest. ACT 112: Negative or not required by law. Electronically signed by: Emiliano Meier M.D. 07/03/2022 2:08 PM Discharge Plan Visit Data Chief Complaint: Chest Pain Stated Complaint: CHEST PAIN ED Provider: Chris Faustin Discharge Problem: Left-sided chest pain, Acute left flank pain, Hypomagnesemia, Generalized weakness Forms Stand Alone Forms: My [facility] Prescriptions Prescriptions: No Action memantine 5 mg tablet 5 mg PO BID Qty: 180 1RF sodium bicarbonate 650 mg tablet 1,300 mg PO BID Qty: 240 3RF calcitriol 0.5 mcg capsule 0.5 mcg PO DAILY Qty: 90 3RF clobetasol 0.05 % lotion in metered-dose pump 1 applic topical DAILY Myrbetriq 50 mg tablet extended release 24 hr 50 mg PO DAILY Qty: 90 1RF doxycycline monohydrate 100 mg capsule 100 mg PO DAILY Eliquis 2.5 mg tablet 2.5 mg PO BID Qty: 180 3RF levothyroxine [Synthroid] 25 mcg tablet 25 mcg PO DAILYBB Qty: 30 3RF gabapentin 100 mg capsule 100 mg PO BID Qty: 180 3RF tamsulosin 0.4 mg capsule 0.4 mg PO DAILY Qty: 90 3RF metoprolol tartrate 50 mg tablet 25 mg PO BID 90 Days Qty: 90 3RF omeprazole 40 mg capsule,delayed release(DR/EC) 40 mg PO BID 90 Days Qty: 180 1RF Men's Multivitamin 400-20-300 mcg Tablet 1 tab PO QAM calcium carbonate-vitamin D3 [Calcium 500 + D] 500 mg(1,250mg) -200 unit tablet 1 tab PO QAM vitamin B complex Tablet 1 tab PO QAM Probiotic 10 billion cell Capsule 10,000 mmu cells PO QDD Rx Instructions: take with supper Referrals Referrals: Pablo Hernandez DO [Primary Care Provider] -
[2022-07-03 12:38] LABS: Basophils # (auto) 0.06 K/uL (0-0.2); Eosinophils # (auto) 0.27 K/uL (0-0.50); Eosinophils % (auto) 4.3 %; Hematocrit (blood only) 34.2 % (42.0-52.0); Hemoglobin 10.7 g/dl (14.0-18.0); Immature Granulocytes # (auto) 0.01 K/uL (0.01-0.20); Immature Granulocytes % (auto) 0.2 %; Lymphocytes # (auto) 1.56 K/uL (1.2-3.4); Mean Corpuscular Hgb Conc 31.3 g/dL (32.0-36.0); Mean Corpuscular Volume 92.7 fL (80.0-100.0); Mean Platelet Volume 10.5 fL (9.4-12.4); Monocytes # (auto) 0.64 K/uL (0.11-0.59); Monocytes % (auto) 10.3 %; Neutrophils # (auto) 3.69 K/uL (1.40-6.50); Neutrophils % (auto) 59.2 %; Platelet Count 240 K/uL (130-400); RDW Coefficient of Variation 15.6 % (11.5-14.5); RDW Standard Deviation 52.3 fL (36.4-46.3); Red Blood Count 3.69 M/uL (4.70-6.10); White Blood Count 6.23 K/ul (4.8-10.8)
[2022-07-03 12:57] LABS: Albumin Level 3.4 gm/dl (3.4-5.0); Anion Gap 4 (3-11); Bilirubin Direct 0.1 mg/dl (0-0.2); Bilirubin,Total 0.4 mg/dl (0.2-1.0); Calcium 8.5 mg/dl (8.5-10.1); Carbon Dioxide 23 mmol/L (21-32); Chloride 115 mmol/L (98-107); Magnesium 1.4 mg/dl (1.7-2.4); Potassium 4.5 mmol/L (3.5-5.1); Sodium 142 mmol/L (136-145)
[2022-07-03 13:03] LABS: Alanine Aminotransferase 15 U/L (7-52); Alkaline Phosphatase 69 U/L (34-104); Aspartate Aminotransferase 18 U/L (13-39); Blood Urea Nitrogen 31 mg/dl (6-23); Est GFR (African American) 32.8 ml/min; Est GFR (Non-African American) 28.3 ml/min; Glucose 90 mg/dl (70-99(Fasting)); Lipase 22 U/L (11-82); Total Protein 6.3 gm/dl (6.0-8.3); Troponin I High Sensitivity 9.7 pg/ml (0-20)
--- NOTE | 2022-07-03 13:28 | CT Scan Report ---
CT abd pelvis wo con CLINICAL HISTORY: Left Flank pain TECHNIQUE: Helical axial images of the abdomen and pelvis were obtained. Automated dose lowering tech niques and/or adjustment according to patient size were utilized for this exam. This exam was perfor med without intravenous contrast. CT DOSE: 957.77 mGy.cm COMPARISON: Comparison is made to CT abdomen pelvis 10/04/2021 FINDINGS: Lower chest: Cardiomegaly is partially visualized. Severe atherosclerotic disease is seen. Atelectas is versus scarring is seen in the lung bases. Liver: Unremarkable. No focal lesions are seen. Gallbladder and biliary tree: Patient is status post cholecystectomy. No intra- or extrahepatic bilia ry ductal dilation. Pancreas: Fatty replacement of the pancreas is seen. Spleen: Unremarkable. Adrenals: Unremarkable. Kidneys and ureters: Kidneys are mildly atrophic in appearance. No evidence of hydronephrosis or hydr oureter. Bladder: Unremarkable. Reproductive organs: Prostatomegaly is seen. Bowel: Diverticulosis is seen without evidence of diverticulitis. The appendix is normal. Patient is status post gastric bypass surgery with a hiatal hernia. Lymph nodes Retroperitoneal: Unremarkable. Pelvic: Unremarkable. Mesenteric: Unremarkable. Peritoneum: Normal. Vessels: Atherosclerotic calcifications are seen. Abdominal wall: Unremarkable. Bones: Old healed rib fractures are seen. Degenerative changes are seen in the spine. IMPRESSION: 1. No acute abnormalities and in particular no evidence of hydronephrosis or obstructive stone. 2. Diverticulosis without diverticulitis. 3. Additional findings as above. ACT 112: Negative or not required by law. Electronically signed by: Anton Mensah M.D. 07/03/2022 1:27 PM
[2022-07-03] MEDS ORDERED: MAGNESIUM SULFATE / D5W 1 GM/100 ML BAG IV STA (13:36)
--- NOTE | 2022-07-03 14:10 | XRay Report ---
XR chest 1V portable CLINICAL HISTORY: Atypical chest pain. COMPARISON STUDY: Chest CT October 04, 2021 and chest radiograph May 03, 2022. FINDINGS: Left shoulder arthroplasty is incidentally noted. There is no pneumothorax or pleural effus ion. Minimal left basilar opacity favors atelectasis. No consolidation to suggest pneumonia. Cardiome diastinal silhouette is stable. No change in appearance of the chest. IMPRESSION: No acute cardiopulmonary findings. No change in appearance of the chest. ACT 112: Negative or not required by law. Electronically signed by: Emiliano Meier M.D. 07/03/2022 2:08 PM
[2022-07-03] MEDS ORDERED: MAGNESIUM SULFATE / D5W 1 GM/100 ML BAG IV ONE (14:36)
[2022-07-03] MEDS ORDERED: DEXTROSE 50% 50 ML SYRINGE IV PRN (14:37)
[2022-07-03] MEDS ORDERED: GLUCOSE 10 TAB/TUBE PO PRN (14:37)
[2022-07-03] MEDS ORDERED: GLUCOSE 40% GEL 15 GM TUBE PO PRN (14:37)
[2022-07-03] MEDS ORDERED: CARBOHYDRATES FOR HYPOGLYCEMIA PO PRN (14:37)
[2022-07-03] MEDS ORDERED: GLUCAGON FOR INJ 1 MG VIAL SQ PRN (14:37)
--- NOTE | 2022-07-03 14:45 | History & Physical Report ---
Date of Service July 03, 2022 Assessment & Plan (1) Hypomagnesemia: Plan: -Admit to med/tele -The patient is currently afebrile, hemodynamically stable, and stable on RA -Mag today was noted to be 1.4, likely due to his chronic diarrhea and poor absorption from his previous bariatric surgery -S/P 1g of IV mag in the ED, will give another 1gm IV now while in the ED then an additional 2g when he is transferred to the med/surge floor -Will start daily mag supplantation tomorrow with 400 mg PO mag oxide daily -No acute ST segment or t-wave changes on ECG today -Continue to monitor on tele for now -Monitor am CBC, BMP, and mag level (2) Left-sided chest pain: Plan: -At this time the patient's left-sided chest/LUQ pain is likely related to cramping due to is low magnesium level -The pain is intermittent, he has now had 2 stable high sensitivity trops, no acute ECG changes, chest xray and CT of the abd/pelvis are negative for acute findings, and the patient and his confirm this is the same pain he has had before -Will give him a lidocaine patch, continue with mag repletion -Monitor on tele (3) Diarrhea: Plan: -Patient is noted to have chronic diarrhea but it has been noted to be more frequent over the past week -Patient has been on doxycycline since 06/29/22 -Will obtain stool studies including c. diff to rule out infectious etiologies prior to starting an antidiarrhea (4) SCC (squamous cell carcinoma), penis: Plan: -S/P partial Mohs procedure at [facility] on 06/16/22 -No signs of infection at this time -Continue BID doxycycline with his final dose on 07/06/22 (5) Chronic pruritus: Plan: -Continue gabapentin (6) Hypothyroidism: Plan: -Contnue levothyroxine (7) Atrial fibrillation: Plan: -Stable -Continue metoprolol and eliquis (8) GERD (gastroesophageal reflux disease): Plan: -continue omeprazole (9) Type 2 diabetes mellitus: Plan: -Not on home antihyperglycemics -Will add on an am A1c -For now will monitor BSG ACHS, goal is 110-140 -Will start with a correction factor of 40 and carb ratio of 14 (10) Dementia: Plan: -Continue Namenda Plan The patient was discussed with Dr. Del Rosario at the time of the admisssion History of Present Illness Chief Complaint: left-sided chest/LUQ pain Primary Care Provider: Pablo Hernandez DO Cl Watson is an 87 year old male with a PMH significant for Dementia, afib on Eliquis, chronic puritis, SCC of the Penis S/P mohs procedure at [facility] on 06/16/22, DM II, BPH, S/P gastric bypass in 2004 and hypothyroidism who presented to the [facility] ED on 07/03/22 with a chief complaint of left-sided chest pain. In the ED the patient was found to be afebrile, hemodynamically stable, and stable on RA. Labs were remarkable for a CBC with a WBC WNL, stable Hgb and platelets, stable cr of 2.06, mag of 1.4 otherwise stable electrolytes, LFTs WNL, initial high sensitivity trop of 9.7, CT of the abd/pelvis WO contrast was read as 1. No acute abnormalities and in particular no evidence of hydronephrosis or obstructive stone. 2. Diverticulosis without diverticulitis. 3. Additional findings as above.. The patient was ordered 1gm IV magnesium, 500 mL NSS, 25 mcg of IV fentanyl, and 4mg of Iv Zofran prior to my exam. At the time of the exam the patient was resting comfortably in bed in no acute distress with his sitting bedside, history was obtained from both. They state that the patient had been doing well at home since his Mohs procedure at [facility]. He got up this morning, ate breakfast, and took his am medications without issue. He was sitting in his wheelchair watching TV with his when he started to experience a sudden onset of LUQ/Lower left rib pain. He describes the pain as sharp, intermittent, not exacerbated with movement, eating, or bowel movement, and does not radiate anywhere else. They deny recent fevers, chills, SOB, cough, nausea, vomiting, dysuria, hematuria, melena, bloody BMs, lower extremity swelling, and recent trauma. Of noted, the patient has been having issues with chronic diarrhea over the past year. Over the past week his states that his diarrhea has been worse. He has been experiencing 3-4 episodes of non-bloody diarrhea over this time. He is currently on BID 100mg PO Doxycycline since 06/29/22 for his recent Mohs procedure, it is a 10 day course. Per chart review, the patient has a history of left sided chest pain listed on previous PCP visits. I spoke to the patient and his and they both agree that the site of his pain and the type of pain he is having today is the same, just more severe than his previous episodes. He did have a few episodes of the chest pain while I was in the room with him, they last for a few seconds each time and would resolve on their own. I spoke to them regarding code status, the patient is a full code and would want his to make decisions for him if he were unable to make them himself. Please refer to Dr. Del Rosario's attestation for any changes to the treatment plan Allergies Allergy/AdvReac Type Severity Reaction Status Date / Time No Known Allergies Allergy Verified 05/19/22 15:25 Home Medications Medication Instructions Recorded Confirmed Type sumhqmri-yroxcjbg-syxhm acid 400 1 tab PO QAM 09/28/19 07/03/22 History mcg-vit K 20 mcg-lycop 300 mcg tablet (Men's Multivitamin) calcium carbonate 500 mg-vitamin 1 tab PO QAM 12/18/19 07/03/22 History D3 5 mcg (200 unit) tablet (Calcium 500 + D) vitamin B complex 1 tab PO QAM 12/18/19 07/03/22 History Lactobacillus acidophilus 10 10,000 mmu cells PO QDD 01/18/21 07/03/22 History billion cell capsule (Probiotic) calcitriol 0.5 mcg capsule 0.5 mcg PO DAILY #90 caps 07/30/21 07/03/22 Rx memantine 5 mg tablet 5 mg PO BID #180 tabs 01/16/22 07/03/22 Rx doxycycline monohydrate 100 mg 100 mg PO DAILY 02/02/22 07/03/22 History capsule apixaban 2.5 mg tablet (Eliquis) 2.5 mg PO BID #180 tabs 02/20/22 07/03/22 Rx levothyroxine 25 mcg tablet 25 mcg PO DAILYBB #30 tabs 02/20/22 07/03/22 Rx (Synthroid) sodium bicarbonate 650 mg tablet 1,300 mg PO BID Stomach upset #240 04/13/22 07/03/22 Rx tabs clobetasol 0.05 % topical lotion 1 applic topical DAILY 04/17/22 07/03/22 History in pump mirabegron 50 mg tablet,extended 50 mg PO DAILY #90 tabs 04/17/22 07/03/22 Rx release 24 hr (Myrbetriq) metoprolol tartrate 50 mg tablet 25 mg PO BID 90 days #90 tabs 05/19/22 07/03/22 Rx omeprazole 40 mg capsule,delayed 40 mg PO BID 90 days #180 caps 05/19/22 07/03/22 Rx release gabapentin 100 mg capsule 100 mg PO BID #180 caps 06/19/22 07/03/22 Rx tamsulosin 0.4 mg capsule 0.4 mg PO DAILY #90 caps 06/19/22 07/03/22 Rx Past Med/Surg History Medical History Abdominal pain Acute cholecystitis Atrial fibrillation BRBPR (bright red blood per rectum) Chronic kidney disease Chronic renal insufficiency, stage IV (severe) Colitis Degenerative disc disease Dementia Diabetes mellitus, type 2 Dysphagia Fall History of bleeding ulcers History of BPH Hx of migraines Hx of sleep apnea Osteoarthritis Rectal bleed SBO (small bowel obstruction) Secondary hyperparathyroidism of renal origin Stage 3b chronic kidney disease Substernal chest pain Syncope Syncope and collapse Vitamin D deficiency Surgical History H/O knee surgery History of colonoscopy History of esophagogastroduodenoscopy (EGD) History of tooth extraction History of total knee replacement History of total shoulder replacement Hx of circumcision Hx of transurethral resection of prostate S/P laparoscopic cholecystectomy (09/17/20) Family History Sister Family history of diabetes mellitus Social History Smoking Status: Never smoker Tobacco Type: Cigarettes Second Hand Exposure: No; Hx Alcohol Use: No Hx Substance Use: No Preferred Language: Tanzanian Communication Ability: Effective R D Engineer Required: No Beliefs That Will Affect Care: None marital status: Current Living Situation: Spouse Current Living Situation Comment: home with current occupational status: retired Other Information That Helps Us Care for You: No Feels Safe at Home: Yes Safety Concerns: Feels Safe At This Time Seatbelt Use: always Assistive Devices: Cane and Walker Review of Systems Review of Systems: Denies current fever, chills, headache, changes in vision, hearing, taste, and smell, SOB, cough, nausea, vomiting, hematemesis, melena, dysuria, hematuria, and recent falls. All systems have been reviewed and are otherwise negative. Physical Exam Physical Exam: Physical Exam: General: In no acute distress, stated age, chronically ill-appearing but non- toxic appearing HEENT: Normocephalic, atraumatic, no scleral icterus, pupils around round, symmetrical, and reactive to light, moist mucus membranes, trachea midline, no thyromegaly Chest/Pulm: No respiratory distress, symmetrical chest expansion, clear breath sounds throughout Cardiac: RRR, no murmurs noted, patient is non-tender to palpation over the entire chest Abdomen: Negative for ascites and bruising, large central scar from previous bariatric surgery is well-healed, hyperactive bowel sounds, soft, non-tender to palpation throughout : No discharge or swelling noted on inspection of the penis and scrotum Musculoskeletal: Symmetrical and without signs of acute trauma, upper and lower extremities with full ROM, no atrophy, spasticity, or flaccidity Extremities: Radial, dorsalis pedis, and posterior tibial pulses are intact and symmetrical, no edema noted in the BL LE's Skin: Warm, dry, no rashes , lesions, or scars noted Neuro: Alert and oriented to person, place, month, year, no focal defects, CN II-XII tested and intact, finger to nose test negative, no tremors noted Psych: No acute distress, calm and cooperative during the exam Results & Data Results & Data ([facility]) Vital Signs (Past 12 Hours) Vital Signs Temp Pulse Pulse Resp BP BP Pulse Ox 07/03/22 13:48 78 18 117/79 98 07/03/22 11:59 36.9 C 76 18 113/82 96 O2 Del Method 07/03/22 13:48 Room Air 07/03/22 11:59 Room Air Laboratory Results Abnormal lab results 07/03/22 07/03/22 Range/Units 12:11 12:11 RBC 3.69 L (4.70-6.10) M/uL Hgb 10.7 L (14.0-18.0) g/dl Hct 34.2 L (42.0-52.0) % MCHC 31.3 L (32.0-36.0) g/dL RDW Std Deviation 52.3 H (36.4-46.3) fL RDW Coeff of Yinka 15.6 H (11.5-14.5) % [place] # (Auto) 0.64 H (0.11-0.59) K/uL Chloride 115 H (98-107) mmol/L BUN 31 H (6-23) mg/dl Creatinine 2.06 H (0.6-1.4) mg/dl Magnesium 1.4 L (1.7-2.4) mg/dl Diagnostic Findings Abdomen/Pelvis CT 07/03/22 12:13 CT abd pelvis wo con CLINICAL HISTORY: Left Flank pain TECHNIQUE: Helical axial images of the abdomen and pelvis were obtained. Automated dose lowering techniques and/or adjustment according to patient size were utilized for this exam. This exam was performed without intravenous contrast. CT DOSE: 957.77 mGy.cm COMPARISON: Comparison is made to CT abdomen pelvis 10/04/2021 FINDINGS: Lower chest: Cardiomegaly is partially visualized. Severe atherosclerotic disease is seen. Atelectasis versus scarring is seen in the lung bases. Liver: Unremarkable. No focal lesions are seen. Gallbladder and biliary tree: Patient is status post cholecystectomy. No intra- or extrahepatic biliary ductal dilation. Pancreas: Fatty replacement of the pancreas is seen. Spleen: Unremarkable. Adrenals: Unremarkable. Kidneys and ureters: Kidneys are mildly atrophic in appearance. No evidence of hydronephrosis or hydroureter. Bladder: Unremarkable. Reproductive organs: Prostatomegaly is seen. Bowel: Diverticulosis is seen without evidence of diverticulitis. The appendix is normal. Patient is status post gastric bypass surgery with a hiatal hernia. Lymph nodes Retroperitoneal: Unremarkable. Pelvic: Unremarkable. Mesenteric: Unremarkable. Peritoneum: Normal. Vessels: Atherosclerotic calcifications are seen. Abdominal wall: Unremarkable. Bones: Old healed rib fractures are seen. Degenerative changes are seen in the spine. IMPRESSION: 1. No acute abnormalities and in particular no evidence of hydronephrosis or obstructive stone. 2. Diverticulosis without diverticulitis. 3. Additional findings as above. ACT 112: Negative or not required by law. Electronically signed by: Anton Mensah M.D. 07/03/2022 1:27 PM Chest X-Ray 07/03/22 13:44 XR chest 1V portable CLINICAL HISTORY: Atypical chest pain. COMPARISON STUDY: Chest CT October 04, 2021 and chest radiograph May 03, 2022. FINDINGS: Left shoulder arthroplasty is incidentally noted. There is no pneumothorax or pleural effusion. Minimal left basilar opacity favors atelectasis. No consolidation to suggest pneumonia. Cardiomediastinal silhouette is stable. No change in appearance of the chest. IMPRESSION: No acute cardiopulmonary findings. No change in appearance of the chest. ACT 112: Negative or not required by law. Electronically signed by: Emiliano Meier M.D. 07/03/2022 2:08 PM ECG Additional Comments: Atrial fibrillation Inferior infarct , age undetermined Abnormal ECG When compared with ECG of 03-MAY-2022 18:16, Inferior infarct is now Present Code Status & VTE Plan Code Status FUll code VTE Prophylaxis Plan VTE Prophylaxis will be ordered: Yes Supervising Physician Co-Signing Physician Notes I personally saw and examined the patient. I verified all medina points and agree with Conrad Suarez PA-C with the following exceptions and/or additions: 87 year old male presents to the ER with left sided chest pain. On review of previous PCP notes this appears to be an intermittent, non exertional issues that occasionally reoccurs however he notes it has never been this bad. Occuring over his left lateral rib cage O/E HS1+2, no murmurs, Chest CTAB, reproducible left sided lateral chest pain over lower ribs, Abdo SNT, No CVA tenderness A/P Left sided chest pain - appears MSK suspect worse with current hypomagnesemia. Reproducible on palpation. Hypomagnesemia - IV replacement as above (4g total), start oral supplementation. Possibly having MSK manifestation of this and given ongoing diarrhea suggest observation status to replete stores. Repeat level in AM. PG Care Time/CCT Total # of Minutes Spent Total Time Spent with Patient: Total time spent is greater than 50% in coordination of care (as documented) at patient's floor/unit and/or counseling patient: [place] [address] INT INP/OBS CARE 3/75MIN Patient Type Established Medical Decision Making High Complexity Diagnoses Hypomagnesemia E83.42 Left-sided chest pain R07.9 Diarrhea R19.7 SCC (squamous cell carcinoma), penis C60.9 Chronic pruritus L29.9 Hypothyroidism E03.9 Atrial fibrillation I48.91 Atrial fibrillation type: unspecified GERD (gastroesophageal reflux disease) K21.9 Esophagitis presence: esophagitis presence not specified Type 2 diabetes mellitus E11.9 Diabetes mellitus complication status: without complication Diabetes mellitus retirement insulin use: without retirement use Dementia F03.90 Dementia behavioral disturbance: without behavioral disturbance Dementia type: unspecified type (1) Type 2 diabetes mellitus Diabetes mellitus complication status: without complication Diabetes mellitus retirement insulin use: without mail inserter use Qualified Code(s): E11.9 - Type 2 diabetes mellitus without complications (2) Atrial fibrillation Atrial fibrillation type: unspecified Qualified Code(s): I48.91 - Unspecified atrial fibrillation (3) Dementia Dementia behavioral disturbance: without behavioral disturbance Dementia type: unspecified type Qualified Code(s): F03.90 - Unspecified dementia without behavioral disturbance (4) GERD (gastroesophageal reflux disease) Esophagitis presence: esophagitis presence not specified Qualified Code(s): K21.9 - Gastro-esophageal reflux disease without esophagitis
[2022-07-03] MEDS ORDERED: LIDOCAINE 5% 1 PATCH TD STA (14:47)
[2022-07-03 15:01] LABS: Appearance Urine Clear (Clear); Bacteria Urine Automated Negative (Negative); Bilirubin Urine Negative (Negative); Blood Urine Negative (Negative); Color Urine Dark Yellow; Glucose Urine UA Negative (Negative); Ketones Urine Negative (Negative); Leukocyte Esterase Urine 1+ (Negative); Nitrite Urine Negative (Negative); Protein Urine Trace (Negative); Specific Gravity Urine 1.016 (1.000-1.030); Urobilinogen Urine Negative (Negative); pH Urine 5.5 (4.5-7.5)
--- NOTE | 2022-07-03 15:33 | Electrocardiogram Report ---
Test Reason : Blood Pressure : / mmHG Vent. Rate : 074 BPM Atrial Rate : 086 BPM P-R Int : 000 ms QRS Dur : 080 ms QT Int : 364 ms P-R-T Axes : 000 -18 013 degrees QTc Int : 404 ms Atrial fibrillation possible Inferior infarct , age undetermined Abnormal ECG When compared with ECG of 03-MAY-2022 18:16, Inferior infarct is now Present Confirmed by Leonard Wolfe ([id number]) on 07/03/2022 3:32:41 PM Referred By: Confirmed By:Roe Wolfe
[2022-07-03] MEDS: INSULIN ASPART PER UNIT SC SCH ×2 (16:36→23:25)
[2022-07-03] MEDS: MAGNESIUM SULFATE / D5W 1 GM/100 ML BAG IV SCH ×2 (17:10→19:16)
[2022-07-03] MEDS ORDERED: LANTUS PER UNIT CHARGE SQ SCH (21:00)
[2022-07-03] MEDS: ACETAMINOPHEN 325 MG TAB PO PRN (22:50)
[2022-07-03] MEDS: SODIUM BICARBONATE 650 MG TAB PO SCH (22:51)
[2022-07-03] MEDS: DOXYCYCLINE HYCLATE 100 MG CAP PO SCH (22:51)
[2022-07-03] MEDS: APIXABAN 2.5 MG TAB PO SCH (22:51)
[2022-07-03] MEDS: METOPROLOL TARTRATE 25 MG TAB PO SCH (22:52)
[2022-07-03] MEDS: GABAPENTIN 100 MG CAP PO SCH (22:52)
[2022-07-03] MEDS: MEMANTINE HCL 5 MG TAB PO SCH (22:52)
[2022-07-03] MEDS: PANTOprazole 40 MG TAB PO SCH (22:52)
[2022-07-04] MEDS: LEVOTHYROXINE SODIUM 25 MCG TABLET PO SCH (05:18)
[2022-07-04] MEDS: ACETAMINOPHEN 325 MG TAB PO PRN ×3 (05:36→22:37)
[2022-07-04 06:29] LABS: Hematocrit (blood only) 30.8 % (42.0-52.0); Hemoglobin 9.9 g/dl (14.0-18.0); Mean Corpuscular Hemoglobin 29.2 pg (25.0-34.0); Mean Corpuscular Hgb Conc 32.1 g/dL (32.0-36.0); Mean Corpuscular Volume 90.9 fL (80.0-100.0); Mean Platelet Volume 10.5 fL (9.4-12.4); Platelet Count 217 K/uL (130-400); RDW Coefficient of Variation 15.3 % (11.5-14.5); RDW Standard Deviation 50.4 fL (36.4-46.3); Red Blood Count 3.39 M/uL (4.70-6.10); White Blood Count 5.53 K/ul (4.8-10.8)
[2022-07-04 06:52] LABS: Calcium 8.6 mg/dl (8.5-10.1); Magnesium 1.5 mg/dl (1.7-2.4); Potassium 4.3 mmol/L (3.5-5.1)
[2022-07-04 06:57] LABS: BUN Creatinine Ratio 13.8 (10-20); Creatinine Clr Calc Pharmacy 33.3 ml/min; Est GFR (African American) 36.4 ml/min; Est GFR (Non-African American) 31.4 ml/min
[2022-07-04] MEDS: SODIUM BICARBONATE 650 MG TAB PO SCH ×2 (07:50→21:56)
[2022-07-04] MEDS: GABAPENTIN 100 MG CAP PO SCH ×2 (07:50→21:57)
[2022-07-04] MEDS: APIXABAN 2.5 MG TAB PO SCH ×2 (07:50→21:54)
[2022-07-04] MEDS: DOXYCYCLINE HYCLATE 100 MG CAP PO SCH ×2 (07:50→21:55)
[2022-07-04] MEDS: PANTOprazole 40 MG TAB PO SCH ×2 (07:51→21:56)
[2022-07-04] MEDS: CALCITRIOL 0.25 MCG CAPSULE PO SCH (07:51)
[2022-07-04] MEDS: TAMSULOSIN HCL 0.4 MG CAP PO SCH (07:51)
[2022-07-04] MEDS: MEMANTINE HCL 5 MG TAB PO SCH ×2 (07:51→21:56)
[2022-07-04] MEDS: METOPROLOL TARTRATE 25 MG TAB PO SCH ×2 (07:51→21:55)
[2022-07-04] MEDS: LIDOCAINE 5% 1 PATCH TD SCH (08:02)
[2022-07-04] MEDS: INSULIN ASPART PER UNIT SC SCH ×4 (08:03→22:01)
[2022-07-04 08:25] LABS: Adenovirus F 40/41 PCR Not Detected (NotDetected); Astrovirus PCR Not Detected (NotDetected); Campylobacter PCR Not Detected (NotDetected); Cryptosporidium PCR Not Detected (NotDetected); Cyclospora cayetanensis PCR Not Detected (NotDetected); Entamoeba histolytica PCR Not Detected (NotDetected); Enteroaggregative E.coli(EAEC) Not Detected (NotDetected); Enteropathogenic E.coli (EPEC) Not Detected (NotDetected); Enterotoxigenic E.coli (ETEC) Not Detected (NotDetected); Giardia lamblia PCR Not Detected (NotDetected); Norovirus GI/GII PCR Not Detected (NotDetected); Plesiomonas shigelloides PCR Not Detected (NotDetected); Rotavirus A PCR Not Detected (NotDetected); Salmonella PCR Not Detected (NotDetected); Sapovirus PCR Not Detected (NotDetected); Shiga-like Toxin E.coli (STEC) Not Detected (NotDetected); Shigella/Enteroinvasive E.coli Not Detected (NotDetected); Vibrio cholerae PCR Not Detected (NotDetected); Vibrio species PCR Not Detected (NotDetected); Yersinia enterocolitica PCR Not Detected (NotDetected)
[2022-07-04 08:30] LABS: Estimated Average Glucose 137 mg/dl; Hemoglobin A1C 6.4 % (4.5-5.6)
[2022-07-04] MEDS ORDERED: MAGNESIUM OXIDE 400 MG TAB PO SCH ×2 (09:00)
[2022-07-04] MEDS: MAGNESIUM SULFATE / D5W 1 GM/100 ML BAG IV SCH ×2 (09:38→11:50)
[2022-07-04] MEDS ORDERED: PERFLUTREN LIPID MICROSPHERE (DEFINITY) IV ONE (10:25)
[2022-07-04] MEDS: PSYLLIUM or GUAR GUM FIBER POWDER PACKET PO SCH ×2 (11:02→21:54)
--- NOTE | 2022-07-04 11:35 | XCELERA ---
[id number]}___[id number]
--- NOTE | 2022-07-04 11:42 | Hospitalist Progress Note ---
Date of Service July 04, 2022 Assessment & Plan (1) Hypomagnesemia: Plan: Parenteral and oral replacement. Serial labs (2) Left-sided chest pain: Plan: Now resolved. No acute EKG changes. Troponin series nontrending. Cardiac echo negative for any regional wall motion abnormalities. This does not appear to be of cardiac etiology (3) Diarrhea: Plan: Chronic since gastric bypass surgery. No melena or hematochezia. We will add Metamucil twice daily for added bulk (4) SCC (squamous cell carcinoma), penis: Plan: No indication for acute intervention. Follow-up with urology as an outpatient as directed (5) Chronic pruritus: Plan: Symptomatic management (6) Hypothyroidism: Plan: Continue thyroid replacement therapy (7) Atrial fibrillation: Plan: Rate control and Eliquis. Currently stable (8) GERD (gastroesophageal reflux disease): Plan: Proton pump inhibitor therapy while hospitalized (9) Type 2 diabetes mellitus: Plan: ADA diet. Sliding scale coverage. Continue current medication management (10) Dementia: Plan: Mild. Supportive care Plan Hopeful discharge back to home tomorrow, July 05 Admission and Anticipated Discharge Date Admission Date: July 03, 2022 Subjective Alert and oriented. No acute distress. Troponin series negative. EKGs reveal atrial fibrillation which is chronic but no acute changes. Cardiac echo reveals no regional wall motion abnormalities. Magnesium continues to be replaced. We will obtain PT and and OT assessments. Hopefully he can go home tomorrow, July 05. Metamucil was added for the chronic diarrhea Review of Systems Review of Systems: Constitutional-no fever or chills ENT-no blurred vision, no double vision, no epistaxis, no sore throat Respiratory-no cough, no wheezing, no shortness of breath Haxvvvj-besu-jjfjp chest pain has resolved. No palpitations, no syncope GI-no nausea, vomiting, melena, hematochezia. He has chronic diarrhea since gastric bypass surgery -no urinary retention, no urinary incontinence, no dysuria, no hematuria Musculoskeletal-no joint pain, no muscle tenderness Skin-no bruising, no rashes, no pruritus Neuro-no isolated weakness, no paresthesia, no weakness Psych-no depression, no anxiety Physical Exam Physical Exam: General-alert and oriented x3, no fevers, no chills HEENT-head atraumatic and normocephalic, pupils equal and reactive to light, extraocular muscles intact Neck-no lymphadenopathy or thyromegaly, trachea midline Chest-clear to auscultation percussion. No rales wheezing or rhonchi Cardiac-regular rate and rhythm, normal S1 and S2 Abdomen-normal bowel sounds, nontender, no hepatosplenomegaly Extremities-no cyanosis, clubbing, or edema Neuro-cranial nerves II through XII intact, motor and sensory function within normal limits, strength symmetrical , no focal deficits Psych-normal affect, normal mood Results & Data Results & Data ([facility]) Vital Signs (Past 12 Hours) Vital Signs Temp Pulse Pulse Resp BP Pulse Ox O2 Del Method 07/04/22 11:26 36.6 C 71 16 127/73 96 Room Air 07/04/22 07:41 36.8 C 70 16 120/74 96 Room Air 07/04/22 07:34 94 H 07/04/22 03:21 36.7 C 85 18 108/67 95 Room Air Laboratory Results 07/04/22 06:02 07/04/22 06:02 PG Care Time/CCT Total # of Minutes Spent Total Time Spent with Patient: Total time spent is greater than 50% in coordination of care (as documented) at patient's floor/unit and/or counseling patient: Coding Level of Care Code 89844 SUB INP/OBS CARE 3/50MIN Diagnoses Hypomagnesemia E83.42 Left-sided chest pain R07.9 Diarrhea R19.7 SCC (squamous cell carcinoma), penis C60.9 Chronic pruritus L29.9 Hypothyroidism E03.9 Atrial fibrillation I48.91 Atrial fibrillation type: unspecified GERD (gastroesophageal reflux disease) K21.9 Esophagitis presence: esophagitis presence not specified Type 2 diabetes mellitus E11.9 Diabetes mellitus termite inspector insulin use: without termite inspector use Diabetes mellitus complication status: without complication Dementia F03.90 Dementia type: unspecified type Dementia behavioral disturbance: without behavioral disturbance (1) Atrial fibrillation Atrial fibrillation type: unspecified Qualified Code(s): I48.91 - Unspecified atrial fibrillation (2) GERD (gastroesophageal reflux disease) Esophagitis presence: esophagitis presence not specified Qualified Code(s): K21.9 - Gastro-esophageal reflux disease without esophagitis (3) Type 2 diabetes mellitus Diabetes mellitus termite inspector insulin use: without termite inspector use Diabetes mellitus complication status: without complication Qualified Code(s): E11.9 - Type 2 diabetes mellitus without complications (4) Dementia Dementia type: unspecified type Dementia behavioral disturbance: without behavioral disturbance Qualified Code(s): F03.90 - Unspecified dementia without behavioral disturbance
[2022-07-04] MEDS: MAGNESIUM OXIDE 400 MG TAB PO SCH (21:56)
[2022-07-05] MEDS: LEVOTHYROXINE SODIUM 25 MCG TABLET PO SCH (05:21)
[2022-07-05] MEDS: MEMANTINE HCL 5 MG TAB PO SCH (06:55)
[2022-07-05] MEDS: GABAPENTIN 100 MG CAP PO SCH (06:55)
[2022-07-05] MEDS: SODIUM BICARBONATE 650 MG TAB PO SCH (06:56)
[2022-07-05] MEDS: PANTOprazole 40 MG TAB PO SCH (06:56)
[2022-07-05] MEDS: MAGNESIUM OXIDE 400 MG TAB PO SCH (06:57)
[2022-07-05] MEDS: APIXABAN 2.5 MG TAB PO SCH (06:58)
[2022-07-05] MEDS: TAMSULOSIN HCL 0.4 MG CAP PO SCH (06:58)
[2022-07-05] MEDS: CALCITRIOL 0.25 MCG CAPSULE PO SCH (06:58)
[2022-07-05] MEDS: DOXYCYCLINE HYCLATE 100 MG CAP PO SCH (06:58)
[2022-07-05] MEDS: METOPROLOL TARTRATE 25 MG TAB PO SCH (06:58)
[2022-07-05] MEDS: LIDOCAINE 5% 1 PATCH TD SCH (06:59)
[2022-07-05] MEDS: PSYLLIUM or GUAR GUM FIBER POWDER PACKET PO SCH (06:59)
--- NOTE | 2022-07-05 07:27 | Electrocardiogram Report ---
Test Reason : Blood Pressure : / mmHG Vent. Rate : 078 BPM Atrial Rate : 075 BPM P-R Int : 000 ms QRS Dur : 084 ms QT Int : 378 ms P-R-T Axes : 000 -03 049 degrees QTc Int : 430 ms Atrial fibrillation Low voltage QRS Abnormal ECG When compared with ECG of 03-JUL-2022 12:06, No significant change was found Confirmed by Leonard Wolfe ([id number]) on 07/05/2022 7:26:58 AM Referred By: REFERRED SELF Confirmed By:Roe Wolfe
[2022-07-05] MEDS: INSULIN ASPART PER UNIT SC SCH ×2 (08:16→12:00)
--- NOTE | 2022-07-05 10:33 | Discharge Summary ---
Date of Service July 05, 2022 Principal Diagnosis Noncardiac chest pain, hypomagnesemia Discharge Exam General-alert and oriented x3, no fevers, no chills HEENT-head atraumatic and normocephalic, pupils equal and reactive to light, extraocular muscles intact Neck-no lymphadenopathy or thyromegaly, trachea midline Chest-clear to auscultation percussion. No rales wheezing or rhonchi Cardiac-regular rate and rhythm, normal S1 and S2 Abdomen-normal bowel sounds, nontender, no hepatosplenomegaly Extremities-no cyanosis, clubbing, or edema Neuro-cranial nerves II through XII intact, motor and sensory function within normal limits, strength symmetrical , no focal deficits Psych-normal affect, normal mood Discharge Data Allergies Allergy/AdvReac Type Severity Reaction Status Date / Time No Known Allergies Allergy Verified 05/19/22 15:25 Consultations 07/03/22 13:45 ED Decision to Admit Stat Ordered Studies 07/03/22 12:13 CT abd pelvis wo con Stat Hospital Course (1) Hypomagnesemia: Corrected. Continue oral magnesium supplementation at discharge (2) Left-sided chest pain: Resolved. Possibly of musculoskeletal etiology. Noncardiac. No evidence of acute coronary syndrome (3) Diarrhea: Chronic. 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 He will continue the Metamucil treatment for bulk addition (4) SCC (squamous cell carcinoma), penis: S/P partial Mohs procedure at [place] on 06/16/22 . Continue BID doxycycline with his final dose on 07/06/22 (5) Chronic pruritus: Continue gabapentin (6) Hypothyroidism: Contnue levothyroxine (7) Atrial fibrillation: -Stable -Continue metoprolol and eliquis (8) GERD (gastroesophageal reflux disease): continue omeprazole (9) Type 2 diabetes mellitus: Not on home antihyperglycemics . ADA diet. Sliding scale coverage as needed (10) Dementia: Mild. Continue Namenda Plan Discharge to home today, July 05 Total Time Total Time Spent Total Time Spent (In Minutes): 35 minutes Discharge Plan Discharge Items Patient Disposition: Home - Self-Care Reason For Visit: CHEST PAIN Discharge Diagnosis: Noncardiac chest pain, hypomagnesemia Activity: Resume your previous activity Non-emergency contact: Primary Care Provider Call non-emergency contact if: you have any medication questions Follow-up/Referrals: Pablo Hernandez DO [Primary Care Provider] - Diet: Carb Consistent or DM2 and Heart Healthy Addtl Attending Provider Instructions: Take Metamucil twice a day to add bulk to the stools to help the diarrhea. This dosage can be increased as needed Pending Studies at Discharge: No Stand-Alone Forms: My [facility], Smoking Cessation Medications and DC Order Prescriptions: New magnesium oxide 400 mg (241.3 mg magnesium) Tablet 400 mg PO BID Qty: 60 0RF Psyllium Or Guar Gum Fiber Sup [Metamucil Or Nutrisource Fiber Supplement] 1 pkg PO BID Qty: 30 0RF Continued memantine 5 mg tablet 5 mg PO BID Qty: 180 1RF sodium bicarbonate 650 mg tablet 1,300 mg PO BID Qty: 240 3RF calcitriol 0.5 mcg capsule 0.5 mcg PO DAILY Qty: 90 3RF clobetasol 0.05 % lotion in metered-dose pump 1 applic topical DAILY Myrbetriq 50 mg tablet extended release 24 hr 50 mg PO DAILY Qty: 90 1RF doxycycline monohydrate 100 mg capsule 100 mg PO DAILY Eliquis 2.5 mg tablet 2.5 mg PO BID Qty: 180 3RF levothyroxine [Synthroid] 25 mcg tablet 25 mcg PO DAILYBB Qty: 30 3RF gabapentin 100 mg capsule 100 mg PO BID Qty: 180 3RF tamsulosin 0.4 mg capsule 0.4 mg PO DAILY Qty: 90 3RF metoprolol tartrate 50 mg tablet 25 mg PO BID 90 Days Qty: 90 3RF omeprazole 40 mg capsule,delayed release(DR/EC) 40 mg PO BID 90 Days Qty: 180 1RF Men's Multivitamin 400-20-300 mcg Tablet 1 tab PO QAM calcium carbonate-vitamin D3 [Calcium 500 + D] 500 mg(1,250mg) -200 unit tablet 1 tab PO QAM vitamin B complex Tablet 1 tab PO QAM Probiotic 10 billion cell Capsule 10,000 mmu cells PO QDD Rx Instructions: take with supper Discharge Orders: Discharge Order (Routine); Ordered 07/05/22 Ordered By: Jackson Montemayor/Other Patient Handouts: Managing Type 2 Diabetes Admission Data Admit Date/Time: 07/03/22 14:35 Attending Provider: Jenny,Jackson R. Admit Provider: Bladimir Del Rosario Primary Care Provider: Pablo Hernandez Other Providers: Bladimir Del Rosario Coding Level of Care Code HOSP INP/OBS DISCH >30 MIN Diagnoses Hypomagnesemia E83.42 Left-sided chest pain R07.9 Diarrhea R19.7 SCC (squamous cell carcinoma), penis C60.9 Chronic pruritus L29.9 Hypothyroidism E03.9 Atrial fibrillation I48.91 Atrial fibrillation type: unspecified GERD (gastroesophageal reflux disease) K21.9 Esophagitis presence: esophagitis presence not specified Type 2 diabetes mellitus E11.9 Diabetes mellitus senior living insulin use: without termite inspector use Diabetes mellitus complication status: without complication Dementia F03.90 Dementia type: unspecified type Dementia behavioral disturbance: without behavioral disturbance
== END 2022-07-05 12:37 | disposition home or self-care (01) ==
LOC: ED 11:59 → EDINP 14:35 → INTOOBSV 14:35 → SUATTDRO 14:35 → EDINP 16:47 → 2W 21:30

== ENCOUNTER 2022-08-10 12:02 | Observation (INO) ==
[2022-08-10] MEDS ORDERED: SODIUM CHLORIDE 0.9% 1000ML 500 ML IV ONE (12:08)
--- NOTE | 2022-08-10 12:18 | Emergency Department Note ---
Impression & Plan Stroke-like symptom, Weakness, Acute hypotension, Near syncope, KENROY (acute kidney injury) ED Provider Note NAME: ANABELLE WILLIAMSON AGE: 87 SEX: M : 1935 ARRIVES VIA: Ambulance INFORMANT: Patient, the patient's significant other, EMS ED PROVIDER(S): Gabriel Quiroz DO CHIEF COMPLAINT: Strokelike symptoms HPI: The patient is an 87-year-old male who presented to the emergency department as a stroke alert. 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 History was obtained from his significant other as well. Apparently the patient was in his normal state of health this morning. He went to his doctor's appointment with his primary inspector final assembly mechanical. He was ready to go home but then had an episode where he became somewhat unresponsive. From what the significant other is describing the patient had an episode where he was less responsive and could not talk and appeared to be weak all over. He did not appear to fall or strike his head. The patient does have a history of atrial fibrillation and takes Eliquis. He did take his Eliquis this morning. He also has a history of renal disease. The patient was initially brought into room A1 for an evaluation because he was hypotensive. The patient himself states he has low back pain whi ch is not new for him. He denies having any chest pain although chest pain was reported by the prehospital personnel. He denies having any headache. ROS: See above HPI for pertinent positives & negatives. A total of 10 systems reviewed and were otherwise negative. PAST MEDICAL HISTORY: See Below PAST SURGICAL HISTORY: See Below FAMILY HISTORY: See Below SOCIAL HISTORY: See Below HOME MEDICATIONS: See Below ALLERGIES: See Below VITALS: See Below PHYSICAL EXAMINATION: GENERAL: Patient is listless but answers questions slowly. Speech was quiet but understandable. EYES: The conjunctivae are clear. The pupils are round and reactive. EARS, NOSE, MOUTH AND THROAT: The nose is without any evidence of any deformity. NECK: The neck is nontender and supple. RESPIRATORY: Normal respiratory effort is noted there is no evidence of wheezing rhonchi or rales CARDIOVASCULAR: Irregular heart sounds were noted to auscultation. There is no definite murmur. GASTROINTESTINAL: The abdomen is soft and moderately distended. There is left lower quadrant tenderness to palpation. MUSCULOSKELETAL/EXTREMITIES: There is no evidence of gross deformity full range of motion is noted in the hips and shoulders. SKIN: Skin was warm and dry. There is pedal edema bilaterally. NEUROLOGIC: The patient is awake to verbal commands. He does follow commands. He is oriented to person place and situation. Strength was diminished but symmetric. City Tax Auditor strength was symmetric. Patient is able to hold each leg off the bed for 5 seconds. MEDICAL DECISION MAKING: The patient is an 87-year-old male who presented to the emergency department for strokelike symptoms. The patient was in the [employer] building seeing his inspector final assembly mechanical. The patient was discharged from that appointment and then had an episode which was difficult to quantify. The significant other states the patient became unresponsive. It sounds like she is describing a syncopal episode but then states the patient was staring off into space. There was a possible right-sided weakness described by the prehospital personnel. The patient was made a stroke alert prior to arrival however when he got to the emergency department he had no unilateral symptoms. He was hypotensive. I preferred to evaluate the patient for other causes of the strokelike symptoms rather than send the patient over to the CT for immediate scans especially given his history of renal insufficiency. I discussed the patient's laboratory and radiographic studies with him and his . I also treated the patient with IV fluids in the emergency department. On reevaluation his symptoms were somewhat improved. He he does not have a physical exam at this time consistent with acute stroke. I discussed his condition with the on-call [facility] hospitalist. They have agreed to evaluate the patient in the emergency department for further management and disposition. The patient was not a candidate for TNK as he did take his dose of anticoagulation at 10 AM prior to going to see his inspector final assembly mechanical. Triage Nursing notes reviewed. Prior medical records reviewed Vital Signs: reviewed and remarkable for initial hypotension. Differential diagnosis: Infection, dehydration, metabolic abnormality, hypo/hyperglycemia, electrolyte disturbance, anemia, hypoxia, cardiac sources, intracerebral event, toxicologic, neurologic, as well as other pathologies. ER treatment provided: See below Diagnostics interpreted by me: ECG: EKG was obtained in the emergency department. My interpretation is atrial fibrillation at 64 bpm. There were no PVCs noted. There is no specific ST segment abnormalities noted. This was compared to a tracing from August 01, 2022. No changes were noted. Cardiac Monitoring: An order was placed for continuous cardiac monitoring. The monitor shows a rate of 75 bpm with atrial fibrillation. Laboratory studies: As stated above and show below. Imaging studies: See below. Radiographic imaging was reviewed by myself Consultation(s): I discussed this case with Dr. Garcia who is on-call for the [facility] hospitalist group. Past Med/Surg History Medical History Abdominal pain Acute cholecystitis Anal fistula Anemia of chronic disease Atrial fibrillation (04/22/12) Atrial fibrillation no cardioversions/ no pacer. treated with medication and follows with PCP Balanoposthitis Bradycardia BRBPR (bright red blood per rectum) Chronic kidney disease variable creatinines with baseline ~1.6-2.1 > follows with Dr. Vences Chronic pruritus Chronic renal insufficiency, stage IV (severe) Colitis Concussion Degenerative disc disease Dementia Dementia Diabetes mellitus, type 2 diet controlled Diarrhea Diarrhea Discharge planning issues Dysphagia "trouble keeping foods down" Fall LAST FALL 1 WEEK AGO Fall walker and cane -- fall risk. GERD (gastroesophageal reflux disease) History of bleeding ulcers History of BPH Hx of migraines Hx of sleep apnea no device Hyperkalemia Hypoglycemia Hypothyroidism Osteoarthritis Peptic ulcer disease Phimosis Rectal bleed SBO (small bowel obstruction) SCC (squamous cell carcinoma), penis Secondary hyperparathyroidism of renal origin Small bowel obstruction due to adhesions Stage 3b chronic kidney disease Substernal chest pain resolved per pt Syncope Syncope and collapse Type 2 diabetes mellitus Unresponsiveness Vitamin D deficiency Surgical History H/O gastric bypass 2004 H/O knee surgery "MULTIPLE KNEE SURGERIES"- R/L History of colonoscopy History of esophagogastroduodenoscopy (EGD) History of tooth extraction History of total knee replacement RT/LEFT History of total shoulder replacement LEFT Hx of circumcision 2 yrs ago Hx of transurethral resection of prostate S/P laparoscopic cholecystectomy (09/17/20) Laparoscopic Cholecystectomy with Cholangiogram with akira drain 09/17/20 Dr. Atkinson Family History Sister Family history of diabetes mellitus Social History Smoking Status: Never smoker Tobacco Type: Cigarettes Second Hand Exposure: No; Hx Alcohol Use: No Hx Substance Use: No Preferred Language: French Communication Ability: Effective Wedding Consultant Required: No Beliefs That Will Affect Care: Confucianism marital status: Current Living Situation: Spouse Current Living Situation Comment: home with current occupational status: retired Feels Safe at Home: Yes Seatbelt Use: always Assistive Devices: Cane and Walker Allergies Allergies Allergy/AdvReac Type Severity Reaction Status Date / Time No Known Allergies Allergy Verified 08/10/22 15:18 Home Meds Home Medications Medication Instructions Recorded Confirmed calcium carbonate 500 mg-vitamin 1 tab PO QAM 12/18/19 08/10/22 D3 5 mcg (200 unit) tablet (Calcium 500 + D) vitamin B complex 1 tab PO QAM 12/18/19 08/10/22 Lactobacillus acidophilus 10 10,000 mmu cells PO QDD 01/18/21 08/10/22 billion cell capsule (Probiotic) multivitamin 1 tab PO DAILY 08/01/22 08/10/22 cholecalciferol (vitamin D3) 25 0 mcg PO DAILY 08/10/22 08/10/22 mcg (1,000 unit) tablet Previous Rx's Medication Instructions Recorded calcitriol 0.5 mcg capsule 0.5 mcg PO DAILY #90 caps 07/30/21 apixaban 2.5 mg tablet (Eliquis) 2.5 mg PO BID #180 tabs 02/20/22 levothyroxine 25 mcg tablet 25 mcg PO DAILYBB #30 tabs 02/20/22 (Synthroid) mirabegron 50 mg tablet,extended 50 mg PO DAILY #90 tabs 04/17/22 release 24 hr (Myrbetriq) metoprolol tartrate 50 mg tablet 25 mg PO BID 90 days #90 tabs 05/19/22 omeprazole 40 mg capsule,delayed 40 mg PO BID 90 days #180 caps 05/19/22 release gabapentin 100 mg capsule 100 mg PO BID #180 caps 06/19/22 tamsulosin 0.4 mg capsule 0.4 mg PO DAILY #90 caps 06/19/22 magnesium oxide 400 mg (241.3 mg 400 mg PO BID #60 tabs 07/29/22 magnesium) tablet memantine 5 mg tablet 5 mg PO BID #180 tabs 07/29/22 loperamide 2 mg capsule 2 mg PO Q6H PRN loose stool #20 08/01/22 caps tramadol 50 mg tablet 50 mg PO BID PRN pain #10 tabs 08/04/22 sodium bicarbonate 650 mg tablet 650 mg PO BID Stomach upset #180 08/10/22 tabs Results & Data (ED) Vital Signs Vital Signs - 24 hr 08/10/22 12:16 08/10/22 12:07 08/10/22 12:14 Temperature 36.5 C Temperature Source Oral Pulse Rate 75 76 63 Pulse Rhythm Irregular Respiratory Rate 24 19 Respiratory Effort / Characteristics Non-Labored Respiratory Depth Normal Respiratory Pattern Regular Blood Pressure 115/70 Blood Pressure Mean 85 Blood Pressure Position Sitting Pulse Oximetry 98 Oxygen Delivery Method Room Air Sepsis Recent Fever Within 48 Hours No Sepsis New/Unexplained Change in Mental Status No Sepsis Action Taken by Nursing No Action Required 08/10/22 12:15 08/10/22 12:15 08/10/22 12:44 Temperature Temperature Source Pulse Rate 71 68 Pulse Rhythm Respiratory Rate 22 21 Respiratory Effort / Characteristics Respiratory Depth Respiratory Pattern Blood Pressure 103/67 Blood Pressure Mean 79 Blood Pressure Position Pulse Oximetry 100 98 Oxygen Delivery Method Room Air Room Air Sepsis Recent Fever Within 48 Hours Sepsis New/Unexplained Change in Mental Status Sepsis Action Taken by Nursing 08/10/22 12:45 08/10/22 13:00 08/10/22 13:13 Temperature Temperature Source Pulse Rate 68 65 75 Pulse Rhythm Respiratory Rate 17 14 20 Respiratory Effort / Characteristics Respiratory Depth Respiratory Pattern Blood Pressure 127/75 Blood Pressure Mean 92 Blood Pressure Position Pulse Oximetry 100 97 99 Oxygen Delivery Method Room Air Room Air Room Air Sepsis Recent Fever Within 48 Hours Sepsis New/Unexplained Change in Mental Status Sepsis Action Taken by Nursing Laboratory Data 08/10/22 12:10 08/10/22 12:10 Lab Results 08/10/22 08/10/22 08/10/22 Range/Units 12:08 12:10 12:10 WBC 4.76 L (4.8-10.8) K/ul RBC 3.45 L (4.70-6.10) M/uL Hgb 9.8 L (14.0-18.0) g/dl Hct 32.6 L (42.0-52.0) % MCV 94.5 (80.0-100.0) fL MCH 28.4 (25.0-34.0) pg MCHC 30.1 L (32.0-36.0) g/dL RDW Std Deviation 53.2 H (36.4-46.3) fL RDW Coeff of Yinka 15.4 H (11.5-14.5) % Plt Count 237 (130-400) K/uL MPV 10.3 (9.4-12.4) fL Immature Gran % (Auto) 0.0 % Neut % (Auto) 51.3 % Lymph % (Auto) 31.7 % [place] % (Auto) 12.0 % Eos % (Auto) 4.2 % Baso % (Auto) 0.8 % Neut # (Auto) 2.44 (1.40-6.50) K/uL Lymph # (Auto) 1.51 (1.2-3.4) K/uL [place] # (Auto) 0.57 (0.11-0.59) K/uL Eos # (Auto) 0.20 (0-0.50) K/uL Baso # (Auto) 0.04 (0-0.2) K/uL Immature Gran # (Auto) 0.00 L (0.01-0.20) K/uL ESR (0-20) mm/hr PT 11.2 (9.0-12.0) Seconds INR 1.1 (0.9-1.1) APTT 27.9 (21.0-31.0) Seconds PTT Ratio 1.0 Sodium (136-145) mmol/L Potassium (3.5-5.1) mmol/L Chloride (98-107) mmol/L Carbon Dioxide (21-32) mmol/L Anion Gap (3-11) BUN (6-23) mg/dl Creatinine (0.6-1.4) mg/dl Est Cr Clr Drug Dosing Est GFR ( Amer) ml/min Est GFR (Non-Af Amer) ml/min BUN/Creatinine Ratio (10-20) Glucose (70-99(Fasting)) mg/dl POC Glucose (70-99) mg/dl Lactate (0.4-2.0) mmol/L Calcium (8.5-10.1) mg/dl Magnesium (1.7-2.4) mg/dl Total Bilirubin (0.2-1.0) mg/dl AST (13-39) U/L ALT (7-52) U/L Alkaline Phosphatase (34-104) U/L Troponin I High Sens (0-20) pg/ml C-Reactive Protein (0-0.5) mg/dl Total Protein (6.0-8.3) gm/dl Albumin (3.4-5.0) gm/dl Globulin (2.5-4.0) gm/dl Albumin/Globulin Ratio (0.9-2) Procalcitonin < 0.05 (0-0.5) ng/ml SARS-CoV-2, RNA, NAAT (NEGATIVE) 08/10/22 08/10/22 08/10/22 Range/Units 12:10 12:10 12:12 WBC (4.8-10.8) K/ul RBC (4.70-6.10) M/uL Hgb (14.0-18.0) g/dl Hct (42.0-52.0) % MCV (80.0-100.0) fL MCH (25.0-34.0) pg MCHC (32.0-36.0) g/dL RDW Std Deviation (36.4-46.3) fL RDW Coeff of Yinka (11.5-14.5) % Plt Count (130-400) K/uL MPV (9.4-12.4) fL Immature Gran % (Auto) % Neut % (Auto) % Lymph % (Auto) % [place] % (Auto) % Eos % (Auto) % Baso % (Auto) % Neut # (Auto) (1.40-6.50) K/uL Lymph # (Auto) (1.2-3.4) K/uL [place] # (Auto) (0.11-0.59) K/uL Eos # (Auto) (0-0.50) K/uL Baso # (Auto) (0-0.2) K/uL Immature Gran # (Auto) (0.01-0.20) K/uL ESR 43 H (0-20) mm/hr PT (9.0-12.0) Seconds INR (0.9-1.1) APTT (21.0-31.0) Seconds PTT Ratio Sodium 139 (136-145) mmol/L Potassium 5.2 H (3.5-5.1) mmol/L Chloride 112 H (98-107) mmol/L Carbon Dioxide 23 (21-32) mmol/L Anion Gap 4 (3-11) BUN 29 H (6-23) mg/dl Creatinine 2.32 H (0.6-1.4) mg/dl Est Cr Clr Drug Dosing Not Reportable Est GFR ( Amer) 28.4 ml/min Est GFR (Non-Af Amer) 24.5 ml/min BUN/Creatinine Ratio 12.5 (10-20) Glucose 160 H (70-99(Fasting)) mg/dl POC Glucose 146 H (70-99) mg/dl Lactate (0.4-2.0) mmol/L Calcium 8.2 L (8.5-10.1) mg/dl Magnesium 1.9 (1.7-2.4) mg/dl Total Bilirubin 0.4 (0.2-1.0) mg/dl AST 16 (13-39) U/L ALT 11 (7-52) U/L Alkaline Phosphatase 78 (34-104) U/L Troponin I High Sens 7.3 (0-20) pg/ml C-Reactive Protein < 0.50 (0-0.5) mg/dl Total Protein 6.3 (6.0-8.3) gm/dl Albumin 3.3 L (3.4-5.0) gm/dl Globulin 3.0 (2.5-4.0) gm/dl Albumin/Globulin Ratio 1.1 (0.9-2) Procalcitonin (0-0.5) ng/ml SARS-CoV-2, RNA, NAAT (NEGATIVE) 08/10/22 08/10/22 Range/Units 12:23 13:28 WBC (4.8-10.8) K/ul RBC (4.70-6.10) M/uL Hgb (14.0-18.0) g/dl Hct (42.0-52.0) % MCV (80.0-100.0) fL MCH (25.0-34.0) pg MCHC (32.0-36.0) g/dL RDW Std Deviation (36.4-46.3) fL RDW Coeff of Yinka (11.5-14.5) % Plt Count (130-400) K/uL MPV (9.4-12.4) fL Immature Gran % (Auto) % Neut % (Auto) % Lymph % (Auto) % [place] % (Auto) % Eos % (Auto) % Baso % (Auto) % Neut # (Auto) (1.40-6.50) K/uL Lymph # (Auto) (1.2-3.4) K/uL [place] # (Auto) (0.11-0.59) K/uL Eos # (Auto) (0-0.50) K/uL Baso # (Auto) (0-0.2) K/uL Immature Gran # (Auto) (0.01-0.20) K/uL ESR (0-20) mm/hr PT (9.0-12.0) Seconds INR (0.9-1.1) APTT (21.0-31.0) Seconds PTT Ratio Sodium (136-145) mmol/L Potassium (3.5-5.1) mmol/L Chloride (98-107) mmol/L Carbon Dioxide (21-32) mmol/L Anion Gap (3-11) BUN (6-23) mg/dl Creatinine (0.6-1.4) mg/dl Est Cr Clr Drug Dosing Est GFR ( Amer) ml/min Est GFR (Non-Af Amer) ml/min BUN/Creatinine Ratio (10-20) Glucose (70-99(Fasting)) mg/dl POC Glucose (70-99) mg/dl Lactate 1.2 (0.4-2.0) mmol/L Calcium (8.5-10.1) mg/dl Magnesium (1.7-2.4) mg/dl Total Bilirubin (0.2-1.0) mg/dl AST (13-39) U/L ALT (7-52) U/L Alkaline Phosphatase (34-104) U/L Troponin I High Sens (0-20) pg/ml C-Reactive Protein (0-0.5) mg/dl Total Protein (6.0-8.3) gm/dl Albumin (3.4-5.0) gm/dl Globulin (2.5-4.0) gm/dl Albumin/Globulin Ratio (0.9-2) Procalcitonin (0-0.5) ng/ml SARS-CoV-2, RNA, NAAT NEGATIVE (NEGATIVE) Administered Medications Discontinued Medications Sodium Chloride (Nss 1000ml) 500 mls @ 999 mls/hr IV .Q31M ONE Stop: 08/10/22 12:38 Last Infusion: 08/10/22 13:32 Dose: 0 mls/hr Documented By: Admin: 08/10/22 12:45 Dose: 999 mls/hr Documented By: ELLIOT Imaging Data Attestation: I personally reviewed and interpreted this imaging study as follows: My Impression: Chest x-ray was obtained in the emergency department. My interpretation is no free air, no definite infiltrate. CT of the head was obtained in the emergency department. My interpretation is no intracranial hemorrhage no mass effect CT abdomen pelvis was obtained. My interpretation is no definite obstruction. Final report pending. Radiologist's Impression: Chest X-Ray 08/10/22 11:59 SINGLE VIEW CHEST CLINICAL HISTORY: Neurological deficit. Stroke like symptoms. FINDINGS: An AP, portable, upright chest radiograph is compared to study dated 07/03/2022 and correlated with chest CT dated 10/04/2021. The examination is degraded by portable technique and patient rotation. The heart is enlarged noting atherosclerotic calcification of the thoracic aorta. The pulmonary vasculature is noncongested. Chronic interstitial thickening is similar to previous. There is bibasilar scarring/atelectasis. No airspace consolidation or large pleural effusion is identified. No pneumothorax is seen. The bony thorax is grossly intact. A left shoulder arthroplasty is in place. Advanced arthritic change is seen in the right shoulder. IMPRESSION: Cardiomegaly with no acute cardiopulmonary abnormality. ACT 112: Negative or not required by law. Electronically signed by: Guillermo Fitzgerald M.D. 08/10/2022 12:[address] 08/10/22 11:59 CT SCAN OF THE BRAIN WITHOUT IV CONTRAST CLINICAL HISTORY: Strokelike symptoms. Neurological deficit. COMPARISON STUDY: CT of the brain dated 01/25/2022. TECHNIQUE: Unenhanced axial CT scan of the brain is performed from the vertex to the skull base. A dose lowering technique was utilized adhering to the principles of ALARA. CT DOSE: 614.27 mGy.cm FINDINGS: Brain parenchyma: There is age-related involutional change noting mild to moderate subcortical and periventricular microangiopathic disease. There is no hemorrhage, mass effect, or evidence of acute territorial ischemia by CT criteria. Zepeda-white matter differentiation is preserved. No extra-axial fluid collection is seen. Mineralization is noted in the basal ganglia. Ventricles, sulci, cisterns: Prominent secondary to involutional change. Intracranial vasculature: There is atherosclerotic calcification of the cavernous carotid and vertebral arteries. Calvarium: Unremarkable. Sinuses and mastoids: The paranasal sinuses are clear. The mastoid air cells are well pneumatized. Orbits: The bony orbits are grossly intact. There are bilateral ocular lens implants. IMPRESSION: There is no hemorrhage, mass effect, or evidence of acute territorial ischemia by CT criteria. ACT 112: Negative or not required by law. Electronically signed by: Guillermo Fitzgerald M.D. 08/10/2022 12:49 PM Abdomen/Pelvis CT 08/10/22 12:14 CT SCAN OF THE ABDOMEN AND PELVIS WITHOUT IV CONTRAST CLINICAL HISTORY: Left lower quadrant abdominal pain. COMPARISON STUDY: Abdominal CT dated 08/01/2022. TECHNIQUE: CT scan of the abdomen and pelvis is performed from the lung bases to the proximal femora. Images are reviewed in the axial, sagittal, and coronal planes. IV contrast was not administered for this examination. Note that the examination was performed in suboptimal fashion without oral and IV contrast. A dose lowering technique was utilized adhering to the principles of ALARA. CT DOSE: 1085.66 mGy.cm FINDINGS: Lung bases: The heart is enlarged and without pericardial effusion. The coronary arteries and mitral annulus are densely calcified. The lung bases are clear noting bibasilar scarring/atelectasis. Liver: The unenhanced liver is normal in size, contour, and attenuation. There is no intrahepatic biliary ductal dilatation. Gallbladder: Surgically absent noting clips in the gallbladder fossa. Spleen: Normal in size and attenuation. Pancreas: There is moderate fatty atrophy of the pancreas which is otherwise grossly unremarkable. Adrenal glands: Unremarkable. Kidneys: The unenhanced kidneys are atrophic and without hydronephrosis. There are renovascular calcifications. No renal calculi are clearly identified. There is no evidence of contour deforming renal mass lesion. Abdominal vasculature: The abdominal aorta is normal in course and caliber noting advanced atherosclerotic calcification. Stomach and bowel: There is a small hiatal hernia. Postsurgical change is noted in the stomach. There is moderate colonic diverticulosis without CT evidence of acute diverticulitis. No bowel obstruction is seen. Mild fecal retention is noted throughout the colon. The appendix is well-visualized and normal. Peritoneum: There is no intraperitoneal free air or abdominal ascites. Lymphadenopathy: None. Pelvic viscera: The prostate gland is enlarged and heterogeneous noticing median lobe hypertrophy. The bladder is decompressed, and the wall appears thick ened/trabeculated indicating chronic outlet obstruction. Skeletal structures: The skeletal structures are osteopenic. There is moderate lumbosacral spondylosis. Sclerotic change is noted in the sacroiliac joints. No lytic or blastic lesions are seen. There are chronic/healed bilateral rib fractures. IMPRESSION: 1. No acute infectious or inflammatory findings are identified in the abdomen or pelvis. 2. Colonic diverticulosis without CT evidence of acute diverticulitis. 3. Cardiomegaly. 4. Additional findings as above. ACT 112: Negative or not required by law. Electronically signed by: Guillermo Fitzgerald M.D. 08/10/2022 12:57 PM Discharge Plan Visit Data Chief Complaint: Stroke Alert ED Provider: Gabriel Quiroz Discharge Problem: Stroke-like symptom, Weakness, Acute hypotension, Near syncope, KENROY (acute kidney injury) Patient Disposition: Admitted As Inpatient
[2022-08-10 12:24] LABS: Basophils # (auto) 0.04 K/uL (0-0.2); Basophils % (auto) 0.8 %; Eosinophils % (auto) 4.2 %; Hematocrit (blood only) 32.6 % (42.0-52.0); Hemoglobin 9.8 g/dl (14.0-18.0); Lymphocytes # (auto) 1.51 K/uL (1.2-3.4); Lymphocytes % (auto) 31.7 %; Mean Corpuscular Hemoglobin 28.4 pg (25.0-34.0); Mean Corpuscular Hgb Conc 30.1 g/dL (32.0-36.0); Mean Corpuscular Volume 94.5 fL (80.0-100.0); Mean Platelet Volume 10.3 fL (9.4-12.4); Monocytes # (auto) 0.57 K/uL (0.11-0.59); Neutrophils # (auto) 2.44 K/uL (1.40-6.50); Neutrophils % (auto) 51.3 %; Platelet Count 237 K/uL (130-400); RDW Coefficient of Variation 15.4 % (11.5-14.5); RDW Standard Deviation 53.2 fL (36.4-46.3); Red Blood Count 3.45 M/uL (4.70-6.10); White Blood Count 4.76 K/ul (4.8-10.8)
--- NOTE | 2022-08-10 12:31 | History & Physical Report ---
Date of Service August 10, 2022 Assessment & Plan (1) Stroke-like symptom: Plan: R weakness, reduced responsiveness. ?CVA eval - Occured abruptly at ~noon.Symptoms improved within approximately 30 minutes. Is on DOAC at baseline, no antiplatelet. TNKase contraindicated 2/2 DOAC use CThead:No acute findings. Age-related involutional change Admitting EKG: A-fib, QTc 418, no ST segment changes, no change from prior Admitting CXR: Bibasilar atelectasis. No focal consolidation. naf. High-sensitivity troponin normal CRP normal Patient is with full strength on exam, differential for episode is unclear. He was not responsive, but did not syncopize and does not remember the episode. By EMS report had some right facial droop and right arm weakness which she had not experienced before, and which is not present on admitting exam. Given initial concerns we will complete stroke work-up, will follow MRA/MRI DT KENROY/CKD. -Lipids, A1c pending Atrial fibrillation Rate controlled on admission Continue apixaban 2.5 mg p.o. twice daily Continue metoprolol 50 mg p.o. 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 No oral chemotherapy Patient does have a localized burning since resection. Does not have any fever, chills, sweats, or increased frequency suggestive of UTI; but given burning will obtain UTI and follow. Hypothyroidism Synthroid 25 mcg daily Pre-DM - HgA1C% 06/2022 6.4% Gabapentin 100 mg p.o. 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 Patient is reasonably controlled on admission LUTS, History of bladder spasm Continue Flomax 0.5 mg daily Myrbetriq Chronic dementia Continue memantine 5 mg p.o. twice daily Is oriented to name, place, year, and month on admitting assessment DVT prophylaxis: SCDs, will hold 1 dose of DOAC pending CVA evaluation. If negative, resume in the morning Diet: Heart healthy, DM Disposition: PCU CODE STATUS: Full code, discussed with patient and at bedside (2) Weakness: (3) Acute hypotension: (4) Unresponsiveness: (5) KENROY (acute kidney injury): (6) Prediabetes: History of Present Illness Primary Care Provider: Pablo Hernandez DO Dipti is an 87-year-old male with a past medical history of A-fib on apixaban, CKD without dialysis, GERD, LUTS, hypothyroidism, penile SCC with x5powcvw of Mohs 06/16/2022 with positive margins stop 2/2 possible need for extensive resection to obtain clear margins, gastric bypass 2004 who presented to the emergency department as a stroke alert after having reduced responsiveness and global weakness following a nephrology appointment. Drove to nephrology appointment this morning in normal state of health Leaving nephrology appointment and suddenly got very confused and hypotensive and ?confusion Per EMS possible R facial droop and weakness. This was not appreciated on ER evaluation. Is anticoagulated on eliquis last dose 10am and not a TNK candidate. +back pain Alert, oriented with chronic back pain on initial assessment. No focal neurologic deficits CT-H naf, angios deferred 2/2 impaired renal function BP normotensive following fluids CT-A/P: 1. No acute infectious or inflammatory findings are identified in the abdomen or pelvis. 2. Colonic diverticulosis without CT evidence of acute diverticulitis. 3. Cardiomegaly. 4. Additional findings as above. Sudden episode while sitting of starting into space and not responsive. Did not fall, was still sitting but was staring and not responsive. Pt does not remember the episode at all. Remembers getting to leave the hospital and then arriving in the ER. No chest pain, no chest pressure No recent illness EMS noted R facial droop/weakness, pt and do not recall this. [place] he was normal in ER. At hospitalist assessment pt and his report he appears at his normal baseline. Poor memory/dementia. Chemo delayed due to penile swelling. THis past Wednesday --> blisters and swelling. Stopped. Dr. [facility] is managing. WBC Low + burning with urination 'screams so painful.' NO fevers or chills Medical History: Reviewed Medications: Reviewed Surgical History: Reviewed Family history: Reviewed Allergies: Reviewed Social History: NO tobacco, no etoh. past hx reviewed Code Status: Full Allergies Allergy/AdvReac Type Severity Reaction Status Date / Time No Known Allergies Allergy Verified 08/10/22 11:15 Home Medications Medication Instructions Recorded Confirmed Type calcium carbonate 500 mg-vitamin 1 tab PO QAM 12/18/19 08/10/22 History D3 5 mcg (200 unit) tablet (Calcium 500 + D) vitamin B complex 1 tab PO QAM 12/18/19 08/10/22 History Lactobacillus acidophilus 10 10,000 mmu cells PO QDD 01/18/21 08/10/22 History billion cell capsule (Probiotic) calcitriol 0.5 mcg capsule 0.5 mcg PO DAILY #90 caps 07/30/21 08/10/22 Rx apixaban 2.5 mg tablet (Eliquis) 2.5 mg PO BID #180 tabs 02/20/22 08/10/22 Rx levothyroxine 25 mcg tablet 25 mcg PO DAILYBB #30 tabs 02/20/22 08/10/22 Rx (Synthroid) clobetasol 0.05 % topical lotion 1 applic topical DAILY 04/17/22 08/10/22 History in pump mirabegron 50 mg tablet,extended 50 mg PO DAILY #90 tabs 04/17/22 08/10/22 Rx release 24 hr (Myrbetriq) metoprolol tartrate 50 mg tablet 25 mg PO BID 90 days #90 tabs 05/19/22 08/10/22 Rx omeprazole 40 mg capsule,delayed 40 mg PO BID 90 days #180 caps 05/19/22 08/10/22 Rx release gabapentin 100 mg capsule 100 mg PO BID #180 caps 06/19/22 08/10/22 Rx tamsulosin 0.4 mg capsule 0.4 mg PO DAILY #90 caps 06/19/22 08/10/22 Rx magnesium oxide 400 mg (241.3 mg 400 mg PO BID #60 tabs 07/29/22 08/10/22 Rx magnesium) tablet memantine 5 mg tablet 5 mg PO BID #180 tabs 07/29/22 08/10/22 Rx imiquimod 5 % topical cream packet 1 applic topical UD 08/01/22 08/10/22 History loperamide 2 mg capsule 2 mg PO Q6H PRN loose stool #20 08/01/22 08/10/22 Rx caps multivitamin 1 tab PO DAILY 08/01/22 08/10/22 History psyllium 2 packet PO BID 08/01/22 08/10/22 History tramadol 50 mg tablet 50 mg PO BID PRN pain #10 tabs 08/04/22 08/10/22 Rx tramadol 50 mg tablet 50 mg PO DAILY PRN pain #10 tabs 08/04/22 08/10/22 Rx sodium bicarbonate 650 mg tablet 650 mg PO BID Stomach upset #180 08/10/22 08/10/22 Rx tabs Past Med/Surg History Medical History Abdominal pain Acute cholecystitis Anal fistula Anemia of chronic disease Atrial fibrillation (04/22/12) Atrial fibrillation no cardioversions/ no pacer. treated with medication and follows with PCP Balanoposthitis Bradycardia BRBPR (bright red blood per rectum) Chronic kidney disease variable creatinines with baseline ~1.6-2.1 > follows with Dr. Vences Chronic pruritus Chronic renal insufficiency, stage IV (severe) Colitis Concussion Degenerative disc disease Dementia Dementia Diabetes mellitus, type 2 diet controlled Diarrhea Diarrhea Discharge planning issues Dysphagia "trouble keeping foods down" Fall LAST FALL 1 WEEK AGO Fall walker and cane -- fall risk. GERD (gastroesophageal reflux disease) History of bleeding ulcers History of BPH Hx of migraines Hx of sleep apnea no device Hyperkalemia Hypoglycemia Hypothyroidism Osteoarthritis Peptic ulcer disease Phimosis Rectal bleed SBO (small bowel obstruction) SCC (squamous cell carcinoma), penis Secondary hyperparathyroidism of renal origin Small bowel obstruction due to adhesions Stage 3b chronic kidney disease Substernal chest pain resolved per pt Syncope Syncope and collapse Type 2 diabetes mellitus Unresponsiveness Vitamin D deficiency Surgical History H/O gastric bypass 2004 H/O knee surgery "MULTIPLE KNEE SURGERIES"- R/L History of colonoscopy History of esophagogastroduodenoscopy (EGD) History of tooth extraction History of total knee replacement RT/LEFT History of total shoulder replacement LEFT Hx of circumcision 2 yrs ago Hx of transurethral resection of prostate S/P laparoscopic cholecystectomy (09/17/20) Laparoscopic Cholecystectomy with Cholangiogram with akira drain 09/17/20 Dr. Atkinson Family History Sister Family history of diabetes mellitus Social History Smoking Status: Never smoker Tobacco Type: Cigarettes Second Hand Exposure: No; Hx Alcohol Use: No Hx Substance Use: No Preferred Language: [place] Communication Ability: Effective Oracle Financial Application Developer Required: No Beliefs That Will Affect Care: Anabaptist marital status: Current Living Situation: Spouse Current Living Situation Comment: home with current occupational status: retired Feels Safe at Home: Yes Seatbelt Use: always Assistive Devices: Cane and Walker Review of Systems Review of Systems: All systems reviewed & are unremarkable except as noted in HPI & below Physical Exam Physical Exam: General: Alert and oriented to name/date/place/town. Forgetful but circumferential NAD. Cooperative. HEENT: Atraumatic, normocephalic. PERLAA Pulm: CTAB A&P. -wheezes, -rales, -rhonchi. Symmetrical chest rise. No increased work of breathing. No respiratory distress. Cardiac: irir, +mr Radial pulses intact and symmetrical. Abdominal: Nontender, nondistended, soft. BS present. : Penis retracted, 2X localized lesions without discharge/exudate present. No purulence. No erythema/tenderness to palpation. CRANIAL NERVES: II: Pupils equal and reactive, no relative afferent pupillary defect, no VF cuts III, IV, : EOM intact, no gaze preference or deviation, no nystagmus. V: normal sensation in V1, V2, and V3 segments bilaterally VII: no asymmetry, no nasolabial fold flattening VIII: normal hearing to speech IX, X: normal palatal elevation, no uvular deviation XI: 5/5 head turn and 5/5 shoulder shrug bilaterally XII: midline tongue protrusion MOTOR: RUE: 5/5 Shoulder flexion, extension, abduction, adduction 5/5 Elbow flexion/extension, wrist flexion/extension 5/5 fan balancer strength, finger flexion/extension, interosseus LUE: 5/5 Shoulder flexion, extension, abduction, adduction 5/5 Elbow flexion/extension, wrist flexion/extension 5/5 fan balancer strength, finger flexion/extension, interosseus RLE: 5/5 to hip flexion, ankle dorsiflexion/plantarflexion LLE: 5/5 to hip flexion, ankle dorsiflexion/plantarflexion SENSORY: Normal to touch in upper and lower extremities without deficit or asymmetry COORD: Normal finger to nose PG Care Time/CCT Total # of Minutes Spent Total Time Spent with Patient: Total time spent is greater than 50% in coordination of care (as documented) at patient's floor/unit and/or counseling patient: Coding Level of Care Code 26122 INT INP/OBS CARE 3/75MIN Diagnoses Stroke-like symptom R29.90 Weakness R53.1 Acute hypotension I95.9 Unresponsiveness R41.89 KENROY (acute kidney injury) N17.9 Prediabetes R73.03
--- NOTE | 2022-08-10 12:32 | XRay Report ---
SINGLE VIEW CHEST CLINICAL HISTORY: Neurological deficit. Stroke like symptoms. FINDINGS: An AP, portable, upright chest radiograph is compared to study dated 07/03/2022 and correlat ed with chest CT dated 10/04/2021. The examination is degraded by portable technique and patient rotat ion. The heart is enlarged noting atherosclerotic calcification of the thoracic aorta. The pulmonary vasculature is noncongested. Chronic interstitial thickening is similar to previous. There is bibasil ar scarring/atelectasis. No airspace consolidation or large pleural effusion is identified. No pneumo thorax is seen. The bony thorax is grossly intact. A left shoulder arthroplasty is in place. Advanced arthritic change is seen in the right shoulder. IMPRESSION: Cardiomegaly with no acute cardiopulmonary abnormality. ACT 112: Negative or not required by law. Electronically signed by: Guillermo Fitzgerald M.D. 08/10/2022 12:31 PM
[2022-08-10 12:40] LABS: INR 1.1 (0.9-1.1); Partial Thromboplastin Time 27.9 Seconds (21.0-31.0); Prothrombin Time 11.2 Seconds (9.0-12.0)
[2022-08-10 12:46] LABS: Alanine Aminotransferase 11 U/L (7-52); Albumin Globulin Ratio 1.1 (0.9-2); Albumin Level 3.3 gm/dl (3.4-5.0); Alkaline Phosphatase 78 U/L (34-104); Anion Gap 4 (3-11); Aspartate Aminotransferase 16 U/L (13-39); BUN Creatinine Ratio 12.5 (10-20); Bilirubin,Total 0.4 mg/dl (0.2-1.0); Blood Urea Nitrogen 29 mg/dl (6-23); C Reactive Protein < 0.50 mg/dl (0-0.5); Calcium 8.2 mg/dl (8.5-10.1); Carbon Dioxide 23 mmol/L (21-32); Chloride 112 mmol/L (98-107); Est GFR (African American) 28.4 ml/min; Est GFR (Non-African American) 24.5 ml/min; Glucose 160 mg/dl (70-99(Fasting)); Magnesium 1.9 mg/dl (1.7-2.4); Potassium 5.2 mmol/L (3.5-5.1); Sodium 139 mmol/L (136-145); Total Protein 6.3 gm/dl (6.0-8.3)
--- NOTE | 2022-08-10 12:50 | CT Scan Report ---
CT SCAN OF THE BRAIN WITHOUT IV CONTRAST CLINICAL HISTORY: Strokelike symptoms. Neurological deficit. COMPARISON STUDY: CT of the brain dated 01/25/2022. TECHNIQUE: Unenhanced axial CT scan of the brain is performed from the vertex to the skull base. A do se lowering technique was utilized adhering to the principles of ALARA. CT DOSE: 614.27 mGy.cm FINDINGS: Brain parenchyma: There is age-related involutional change noting mild to moderate subcortical and pe riventricular microangiopathic disease. There is no hemorrhage, mass effect, or evidence of acute ter ritorial ischemia by CT criteria. Zepeda-white matter differentiation is preserved. No extra-axial flui d collection is seen. Mineralization is noted in the basal ganglia. Ventricles, sulci, cisterns: Prominent secondary to involutional change. Intracranial vasculature: There is atherosclerotic calcification of the cavernous carotid and vertebr al arteries. Calvarium: Unremarkable. Sinuses and mastoids: The paranasal sinuses are clear. The mastoid air cells are well pneumatized. Orbits: The bony orbits are grossly intact. There are bilateral ocular lens implants. IMPRESSION: There is no hemorrhage, mass effect, or evidence of acute territorial ischemia by CT fabian smith. ACT 112: Negative or not required by law. Electronically signed by: Guillermo Fitzgerald M.D. 08/10/2022 12:49 PM
[2022-08-10 12:52] LABS: Troponin I High Sensitivity 7.3 pg/ml (0-20)
--- NOTE | 2022-08-10 12:59 | CT Scan Report ---
CT SCAN OF THE ABDOMEN AND PELVIS WITHOUT IV CONTRAST CLINICAL HISTORY: Left lower quadrant abdominal pain. COMPARISON STUDY: Abdominal CT dated 08/01/2022. TECHNIQUE: CT scan of the abdomen and pelvis is performed from the lung bases to the proximal femora. Images are reviewed in the axial, sagittal, and coronal planes. IV contrast was not administered for this examination. Note that the examination was performed in suboptimal fashion without oral and IV contrast. A dose lowering technique was utilized adhering to the principles of ALARA. CT DOSE: 1085.66 mGy.cm FINDINGS: Lung bases: The heart is enlarged and without pericardial effusion. The coronary arteries and mitral annulus are densely calcified. The lung bases are clear noting bibasilar scarring/atelectasis. Liver: The unenhanced liver is normal in size, contour, and attenuation. There is no intrahepatic rodolfo iary ductal dilatation. Gallbladder: Surgically absent noting clips in the gallbladder fossa. Spleen: Normal in size and attenuation. Pancreas: There is moderate fatty atrophy of the pancreas which is otherwise grossly unremarkable. Adrenal glands: Unremarkable. Kidneys: The unenhanced kidneys are atrophic and without hydronephrosis. There are renovascular calci fications. No renal calculi are clearly identified. There is no evidence of contour deforming renal m ass lesion. Abdominal vasculature: The abdominal aorta is normal in course and caliber noting advanced atheroscle rotic calcification. Stomach and bowel: There is a small hiatal hernia. Postsurgical change is noted in the stomach. There is moderate colonic diverticulosis without CT evidence of acute diverticulitis. No bowel obstruction is seen. Mild fecal retention is noted throughout the colon. The appendix is well-visualized and no rmal. Peritoneum: There is no intraperitoneal free air or abdominal ascites. Lymphadenopathy: None. Pelvic viscera: The prostate gland is enlarged and heterogeneous noticing median lobe hypertrophy. Th e bladder is decompressed, and the wall appears thickened/trabeculated indicating chronic outlet obst ruction. Skeletal structures: The skeletal structures are osteopenic. There is moderate lumbosacral spondylosi s. Sclerotic change is noted in the sacroiliac joints. No lytic or blastic lesions are seen. There ar e chronic/healed bilateral rib fractures. IMPRESSION: 1. No acute infectious or inflammatory findings are identified in the abdomen or pelvis. 2. Colonic diverticulosis without CT evidence of acute diverticulitis. 3. Cardiomegaly. 4. Additional findings as above. ACT 112: Negative or not required by law. Electronically signed by: Guillermo Fitzgerald M.D. 08/10/2022 12:57 PM
[2022-08-10] MEDS ORDERED: traMADol HCL 50 MG TABLET PO PRN (15:46)
[2022-08-10] MEDS ORDERED: GLUCOSE 40% GEL 15 GM TUBE PO PRN (15:46)
[2022-08-10] MEDS ORDERED: PHARMACIST DISCHARGE MED REC CONSULT PRN (15:46)
[2022-08-10] MEDS ORDERED: CARBOHYDRATES FOR HYPOGLYCEMIA PO PRN (15:46)
[2022-08-10] MEDS ORDERED: GLUCOSE 10 TAB/TUBE PO PRN (15:46)
[2022-08-10] MEDS ORDERED: DEXTROSE 50% 50 ML SYRINGE IV PRN (15:46)
[2022-08-10] MEDS ORDERED: GLUCAGON FOR INJ 1 MG VIAL SQ PRN (15:46)
[2022-08-10] MEDS: INSULIN ASPART PER UNIT CHARGE SC SCH ×2 (17:00→19:55)
--- NOTE | 2022-08-10 19:48 | Magnetic Resonance Report ---
MR angio head wo con CLINICAL HISTORY: cva eval, KENROY-CKD TECHNIQUE: 3D time of flight MRA of the head was performed without intravenous contrast. 3-D reconstr uctions were obtained in multiple planes. Comparison: Comparison is made to MRI brain 04/17/2022 FINDINGS: Flow signal is shown in the intracranial segments of the internal carotid arteries, the anterior, mid dle and posterior cerebral arteries, the anterior and posterior communicating arteries, cerebellar ar teries, the intracranial segments of the vertebral arteries, and the basilar artery. No aneurysm, ar teriovenous malformation, dissection, nor hemodynamically significant flow stenosis is shown. Assessment of stenosis of the internal carotid arteries is based on NASCET criteria. IMPRESSION: No evidence of acute intracranial abnormality. In particular, no occlusion, hemorrhage, or aneurysmal disease is seen. ACT 112: Negative or not required by law. Electronically signed by: Anton Mensah M.D. 08/10/2022 7:47 PM
--- NOTE | 2022-08-10 19:51 | Magnetic Resonance Report ---
MR brain wo con CLINICAL HISTORY: cva eval, KENROY-CKD TECHNIQUE: Multiplanar and multisequence MR images of the brain were obtained without intravenous con trast. Comparison: Comparison is made to CT head 08/10/2022 FINDINGS: No abnormal restricted diffusion is identified. The white matter is unremarkable. Ex vacuo ventriculo megaly and sulcal enlargement is noted compatible with diffuse encephalomalacia. No mass is seen. The re is no mass effect or midline shift. There is no evidence of acute intraparenchymal hemorrhage. No extra axial fluid collections are seen. The corpus callosum, pituitary gland, and cerebellar tonsils appear grossly unremarkable. Flow voids of the major intracranial arterial vessels are identified. The imaged portions of the para nasal sinuses, mastoid air cells, and orbits are unremarkable. IMPRESSION: No acute abnormalities. ACT 112: Negative or not required by law. Electronically signed by: Anton Mensah M.D. 08/10/2022 7:49 PM
[2022-08-10] MEDS: GABAPENTIN 100 MG CAP PO SCH (20:03)
[2022-08-10] MEDS: SODIUM BICARBONATE 650 MG TAB PO SCH (20:03)
[2022-08-10] MEDS: MEMANTINE HCL 5 MG TAB PO SCH (20:03)
[2022-08-10] MEDS: METOPROLOL TARTRATE 25 MG TAB PO SCH (20:03)
[2022-08-10] MEDS: MAGNESIUM OXIDE 400 MG TAB PO SCH (20:03)
[2022-08-10] MEDS: ACETAMINOPHEN 325 MG TAB PO PRN (20:03)
[2022-08-10] MEDS: PANTOprazole 40 MG TAB PO SCH (20:03)
[2022-08-10 23:12] LABS: Appearance Urine Clear (Clear); Bacteria Urine Automated Negative (Negative); Bilirubin Urine Negative (Negative); Blood Urine Negative (Negative); Color Urine Yellow; Glucose Urine UA Negative (Negative); Ketones Urine Negative (Negative); Leukocyte Esterase Urine 3+ (Negative); Nitrite Urine Negative (Negative); Protein Urine Trace (Negative); RBC Urine Automated 0-4 /hpf (0-4); Specific Gravity Urine 1.013 (1.000-1.030); Urobilinogen Urine Negative (Negative)
--- NOTE | 2022-08-11 05:37 | Electrocardiogram Report ---
Test Reason : Blood Pressure : / mmHG Vent. Rate : 064 BPM Atrial Rate : 064 BPM P-R Int : 000 ms QRS Dur : 078 ms QT Int : 406 ms P-R-T Axes : 000 -09 028 degrees QTc Int : 418 ms Atrial fibrillation Abnormal ECG When compared with ECG of 01-AUG-2022 12:28, No significant change was found Confirmed by Edgar Connors [id number]) on 08/11/2022 5:36:55 AM Referred By: ED Confirmed By:Edgar Connors
[2022-08-11] MEDS: LEVOTHYROXINE SODIUM 25 MCG TABLET PO SCH (06:25)
[2022-08-11 07:01] LABS: Basophils # (auto) 0.04 K/uL (0-0.2); Basophils % (auto) 0.7 %; Eosinophils # (auto) 0.25 K/uL (0-0.50); Eosinophils % (auto) 4.6 %; Hematocrit (blood only) 32.5 % (42.0-52.0); Hemoglobin 10.3 g/dl (14.0-18.0); Immature Granulocytes # (auto) 0.02 K/uL (0.01-0.20); Immature Granulocytes % (auto) 0.4 %; Lymphocytes # (auto) 1.31 K/uL (1.2-3.4); Mean Corpuscular Hemoglobin 28.9 pg (25.0-34.0); Mean Corpuscular Hgb Conc 31.7 g/dL (32.0-36.0); Mean Corpuscular Volume 91.3 fL (80.0-100.0); Mean Platelet Volume 10.7 fL (9.4-12.4); Monocytes # (auto) 0.54 K/uL (0.11-0.59); Monocytes % (auto) 9.9 %; Neutrophils % (auto) 60.4 %; Platelet Count 226 K/uL (130-400); RDW Coefficient of Variation 15.1 % (11.5-14.5); RDW Standard Deviation 50.8 fL (36.4-46.3); Red Blood Count 3.56 M/uL (4.70-6.10); White Blood Count 5.46 K/ul (4.8-10.8)
[2022-08-11 07:08] LABS: BUN Creatinine Ratio 12.2 (10-20); Calcium 8.9 mg/dl (8.5-10.1); Chol HDL Ratio 2.6 (0-5); Creatinine Clr Calc Pharmacy 32.2 ml/min; Est GFR (African American) 34.9 ml/min; Est GFR (Non-African American) 30.1 ml/min; Potassium 4.8 mmol/L (3.5-5.1)
[2022-08-11 07:50] LABS: Estimated Average Glucose 140 mg/dl; Hemoglobin A1C 6.5 % (4.5-5.6)
[2022-08-11] MEDS: INSULIN ASPART PER UNIT CHARGE SC SCH ×4 (08:10→20:24)
[2022-08-11] MEDS: MAGNESIUM OXIDE 400 MG TAB PO SCH ×2 (08:20→19:56)
[2022-08-11] MEDS: APIXABAN 2.5 MG TAB PO SCH ×2 (08:20→19:58)
[2022-08-11] MEDS: PANTOprazole 40 MG TAB PO SCH ×2 (08:20→19:55)
[2022-08-11] MEDS: TAMSULOSIN HCL 0.4 MG CAP PO SCH (08:20)
[2022-08-11] MEDS: METOPROLOL TARTRATE 25 MG TAB PO SCH ×2 (08:20→19:57)
[2022-08-11] MEDS: MEMANTINE HCL 5 MG TAB PO SCH ×2 (08:20→19:56)
[2022-08-11] MEDS: SODIUM BICARBONATE 650 MG TAB PO SCH ×2 (08:20→19:56)
[2022-08-11] MEDS: GABAPENTIN 100 MG CAP PO SCH ×2 (08:21→19:58)
[2022-08-11] MEDS: MIRABEGRON ER 25 MG TAB PO SCH (08:21)
--- NOTE | 2022-08-11 08:31 | Hospitalist Progress Note ---
Date of Service August 11, 2022 Assessment & Plan (1) Stroke-like symptom: Plan: R weakness, reduced responsiveness. ?CVA eval, EMS report had some right facial droop and right arm weakness which she had not experienced before, and which is not present on admitting exam - .Symptoms improved within approximately 30 minutes. Is on DOAC at baseline, no antiplatelet. TNKase contraindicated 2/2 DOAC use CThead:No acute findings. Age-related involutional change - Brain MRI/MRA/neck MRA negative for acute abnormalities patent bilateral carotic arteries Chronic dementia Continue memantine 5 mg p.o. twice daily Atrial fibrillation chronic and stable Rate controlled on admission Continue apixaban 2.5 mg p.o. twice daily, metoprolol 50 mg p.o. 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 No oral chemotherapy LUTS, History of bladder spasm Continue Flomax 0.5 mg daily Myrbetriq Hypothyroidism Synthroid 25 mcg daily CODE STATUS: Full code, discussed with patient and at bedside (2) Weakness: (3) Acute hypotension: (4) Unresponsiveness: (5) KENROY (acute kidney injury): (6) Prediabetes: Admission and Anticipated Discharge Date Admission Date: August 10, 2022 Subjective Patient seen in presence of his Symptoms have all but resolved. Patient unit PT OT evaluation Physical Exam Physical Exam: pt is awake and alert no focal complaints cardiac is regular with murmur Results & Data Results & Data ([facility]) Vital Signs (Past 12 Hours) Vital Signs Temp Pulse Resp BP Pulse Ox O2 Del Method 08/11/22 03:29 98.4 F 63 15 111/72 97 Room Air 08/10/22 23:34 98.2 F 74 14 98/66 L 98 Room Air Laboratory Results review cbc review prp PG Care Time/CCT Total # of Minutes Spent Total Time Spent with Patient: Total time spent is greater than 50% in coordination of care (as documented) at patient's floor/unit and/or counseling patient: Coding Level of Care Code 54193 SUB INP/OBS CARE 2/35MIN Diagnoses Stroke-like symptom R29.90 Weakness R53.1 Acute hypotension I95.9 Unresponsiveness R41.89 KENROY (acute kidney injury) N17.9 Prediabetes R73.03
--- NOTE | 2022-08-11 09:43 | Magnetic Resonance Report ---
MR angio neck wo con CLINICAL HISTORY: cva eval, KENROY-CKD TECHNIQUE: 3D time of flight MRA of the neck was performed without intravenous contrast. 3-D reconstr uctions were obtained in multiple planes. Comparison: None available at the time of this dictation. FINDINGS: Flow signal consistent with patency is shown within the common carotid, cervical segments of the inte rnal carotid, external carotid, and vertebral arteries. No aneurysm, dissection, hemodynamically sign ificant flow stenosis, nor occlusion is present. Assessment of stenosis of the internal carotid arteries is based on NASCET criteria. IMPRESSION: Patency of the bilateral carotid and vertebral arteries with no evidence of hemodynamically significa nt stenosis. ACT 112: Negative or not required by law. Electronically signed by: Anton Mensah M.D. 08/11/2022 9:40 AM
--- NOTE | 2022-08-11 14:26 | XCELERA ---
[id number]
[2022-08-11] MEDS: ACETAMINOPHEN 325 MG TAB PO PRN (19:55)
[2022-08-12] MEDS: LEVOTHYROXINE SODIUM 25 MCG TABLET PO SCH (06:09)
[2022-08-12] MEDS: TAMSULOSIN HCL 0.4 MG CAP PO SCH (08:19)
[2022-08-12] MEDS: METOPROLOL TARTRATE 25 MG TAB PO SCH (08:19)
[2022-08-12] MEDS: SODIUM BICARBONATE 650 MG TAB PO SCH (08:19)
[2022-08-12] MEDS: PANTOprazole 40 MG TAB PO SCH (08:19)
[2022-08-12] MEDS: MIRABEGRON ER 25 MG TAB PO SCH (08:19)
[2022-08-12] MEDS: GABAPENTIN 100 MG CAP PO SCH (08:19)
[2022-08-12] MEDS: APIXABAN 2.5 MG TAB PO SCH (08:19)
[2022-08-12] MEDS: MEMANTINE HCL 5 MG TAB PO SCH (08:20)
[2022-08-12] MEDS: MAGNESIUM OXIDE 400 MG TAB PO SCH (08:20)
[2022-08-12 09:37] LABS: Hematocrit (blood only) 36.9 % (42.0-52.0); Hemoglobin 11.7 g/dl (14.0-18.0); Mean Corpuscular Hgb Conc 31.7 g/dL (32.0-36.0); Mean Corpuscular Volume 91.3 fL (80.0-100.0); Mean Platelet Volume 10.6 fL (9.4-12.4); Platelet Count 251 K/uL (130-400); RDW Coefficient of Variation 15.2 % (11.5-14.5); RDW Standard Deviation 50.9 fL (36.4-46.3); Red Blood Count 4.04 M/uL (4.70-6.10); White Blood Count 4.91 K/ul (4.8-10.8)
[2022-08-12] MEDS: INSULIN ASPART PER UNIT CHARGE SC SCH ×2 (09:41→12:47)
[2022-08-12 09:52] LABS: Albumin Globulin Ratio 1.2 (0.9-2); Albumin Level 3.7 gm/dl (3.4-5.0); Bilirubin,Total 0.5 mg/dl (0.2-1.0); Calcium 9.2 mg/dl (8.5-10.1); Creatinine Clr Calc Pharmacy 27.3 ml/min; Est GFR (African American) 28.6 ml/min; Est GFR (Non-African American) 24.7 ml/min; Globulin 3.2 gm/dl (2.5-4.0); Potassium 5.3 mmol/L (3.5-5.1); Total Protein 6.9 gm/dl (6.0-8.3)
--- NOTE | 2022-08-12 13:17 | Discharge Summary ---
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 Drove to nephrology appointment this morning in normal state of health Leaving nephrology appointment and suddenly got very confused and hypotensive and ?confusion Per EMS possible R facial droop and weakness. This was not appreciated on ER evaluation. Is anticoagulated on eliquis last dose 10am and not a TNK candidate. +back pain Alert, oriented with chronic back pain on initial assessment. No focal neurologic deficits CT-H naf, angios deferred 2/2 impaired renal function BP normotensive following fluids CT-A/P: 1. No acute infectious or inflammatory findings are identified in the abdomen or pelvis. 2. Colonic diverticulosis without CT evidence of acute diverticulitis. 3. Cardiomegaly. 4. Additional findings as above. Sudden episode while sitting of starting into space and not responsive. Did not fall, was still sitting but was staring and not responsive. Pt does not remember the episode at all. Remembers getting to leave the hospital and then arriving in the ER. No chest pain, no chest pressure No recent illness EMS noted R facial droop/weakness, pt and do not recall this. Dix he was normal in ER. At hospitalist assessment pt and his report he appears at his normal baseline. Poor memory/dementia. Chemo delayed due to penile swelling. THis past Wednesday --> blisters and swelling. Stopped. Dr. Alma[facility] is managing. WBC Low + burning with urination 'screams so painful.' NO fevers or chills Medical History: Reviewed Medications: Reviewed Surgical History: Reviewed Family history: Reviewed Allergies: Reviewed Social History: NO tobacco, no etoh. past hx reviewed Code Status: Full Principal Diagnosis TIA Acute changes post Mohs surgery on glans penis Discharge Exam Patient is awake alert appropriate he feels back to his baseline his functional status has been approved by physical occupational therapy recommending home health. Neurologically he has no deficits except for some memory impairment which is his baseline His glans penis difficult to expose as he typically has a retracted penis ho wever when exposed there are some areas of white skin which could be either fungal or healing from previous Mohs surgery. Antifungal zinc-based cream was applied and patient will follow-up with outpatient dermatology Discharge Data Allergies Allergy/AdvReac Type Severity Reaction Status Date / Time No Known Allergies Allergy Verified 08/10/22 15:18 Consultations 08/10/22 13:59 ED Decision to Admit Stat Ordered Studies Chest X-Ray 08/10/22 11:59 SINGLE VIEW CHEST CLINICAL HISTORY: Neurological deficit. Stroke like symptoms. FINDINGS: An AP, portable, upright chest radiograph is compared to study dated 07/03/2022 and correlated with chest CT dated 10/04/2021. The examination is degraded by portable technique and patient rotation. The heart is enlarged no ting atherosclerotic calcification of the thoracic aorta. The pulmonary vasculature is noncongested. Chronic interstitial thickening is similar to previous. There is bibasilar scarring/atelectasis. No airspace consolidation or large pleural effusion is identified. No pneumothorax is seen. The bony thorax is grossly intact. A left shoulder arthroplasty is in place. Advanced arthritic change is seen in the right shoulder. IMPRESSION: Cardiomegaly with no acute cardiopulmonary abnormality. ACT 112: Negative or not required by law. Electronically signed by: Guillermo Fitzgerald M.D. 08/10/2022 12:[address] 08/10/22 11:59 CT SCAN OF THE BRAIN WITHOUT IV CONTRAST CLINICAL HISTORY: Strokelike symptoms. Neurological deficit. COMPARISON STUDY: CT of the brain dated 01/25/2022. TECHNIQUE: Unenhanced axial CT scan of the brain is performed from the vertex to the skull base. A dose lowering technique was utilized adhering to the principles of ALARA. CT DOSE: 614.27 mGy.cm FINDINGS: Brain parenchyma: There is age-related involutional change noting mild to moderate subcortical and periventricular microangiopathic disease. There is no hemorrhage, mass effect, or evidence of acute territorial ischemia by CT criteria. Zepeda-white matter differentiation is preserved. No extra-axial fluid collection is seen. Mineralization is noted in the basal ganglia. Ventricles, sulci, cisterns: Prominent secondary to involutional change. Intracranial vasculature: There is atherosclerotic calcification of the cavernous carotid and vertebral arteries. Calvarium: Unremarkable. Sinuses and mastoids: The paranasal sinuses are clear. The mastoid air cells are well pneumatized. Orbits: The bony orbits are grossly intact. There are bilateral ocular lens implants. IMPRESSION: There is no hemorrhage, mass effect, or evidence of acute territorial ischemia by CT criteria. ACT 112: Negative or not required by law. Electronically signed by: Guillermo Fitzgerald M.D. 08/10/2022 12:49 PM Abdomen/Pelvis CT 08/10/22 12:14 CT SCAN OF THE ABDOMEN AND PELVIS WITHOUT IV CONTRAST CLINICAL HISTORY: Left lower quadrant abdominal pain. COMPARISON STUDY: Abdominal CT dated 08/01/2022. TECHNIQUE: CT scan of the abdomen and pelvis is performed from the lung bases to the proximal femora. Images are reviewed in the axial, sagittal, and coronal planes. IV contrast was not administered for this examination. Note that the examination was performed in suboptimal fashion without oral and IV contrast. A dose lowering technique was utilized adhering to the principles of ALARA. CT DOSE: 1085.66 mGy.cm FINDINGS: Lung bases: The heart is enlarged and without pericardial effusion. The coronary arteries and mitral annulus are densely calcified. The lung bases are clear noting bibasilar scarring/atelectasis. Liver: The unenhanced liver is normal in size, contour, and attenuation. There is no intrahepatic biliary ductal dilatation. Gallbladder: Surgically absent noting clips in the gallbladder fossa. Spleen: Normal in size and attenuation. Pancreas: There is moderate fatty atrophy of the pancreas which is otherwise grossly unremarkable. Adrenal glands: Unremarkable. Kidneys: The unenhanced kidneys are atrophic and without hydronephrosis. There are renovascular calcifications. No renal calculi are clearly identified. There is no evidence of contour deforming renal mass lesion. Abdominal vasculature: The abdominal aorta is normal in course and caliber noting advanced atherosclerotic calcification. Stomach and bowel: There is a small hiatal hernia. Postsurgical change is noted in the stomach. There is moderate colonic diverticulosis without CT evidence of acute diverticulitis. No bowel obstruction is seen. Mild fecal retention is noted throughout the colon. The appendix is well-visualized and normal. Peritoneum: There is no intraperitoneal free air or abdominal ascites. Lymphadenopathy: None. Pelvic viscera: The prostate gland is enlarged and heterogeneous noticing median lobe hypertrophy. The bladder is decompressed, and the wall appears thickened/trabeculated indicating chronic outlet obstruction. Skeletal structures: The skeletal structures are osteopenic. There is moderate lumbosacral spondylosis. Sclerotic change is noted in the sacroiliac joints. No lytic or blastic lesions are seen. There are chronic/healed bilateral rib fractures. IMPRESSION: 1. No acute infectious or inflammatory findings are identified in the abdomen or pelvis. 2. Colonic diverticulosis without CT evidence of acute diverticulitis. 3. Cardiomegaly. 4. Additional findings as above. ACT 112: Negative or not required by law. Electronically signed by: Guillermo Fitzgerald M.D. 08/10/2022 12:57 PM Brain MRI 08/10/22 15:46 MR brain wo con CLINICAL HISTORY: cva eval, KENROY-CKD TECHNIQUE: Multiplanar and multisequence MR images of the brain were obtained without intravenous contrast. Comparison: Comparison is made to CT head 08/10/2022 FINDINGS: No abnormal restricted diffusion is identified. The white matter is unremarka ble. Ex vacuo ventriculomegaly and sulcal enlargement is noted compatible with diffuse encephalomalacia. No mass is seen. There is no mass effect or midline shift. There is no evidence of acute intraparenchymal hemorrhage. No extra axial fluid collections are seen. The corpus callosum, pituitary gland, and cerebellar tonsils appear grossly unremarkable. Flow voids of the major intracranial arterial vessels are identified. The imaged portions of the paranasal sinuses, mastoid air cells, and orbits are unremarkable. IMPRESSION: No acute abnormalities. ACT 112: Negative or not required by law. Electronically signed by: Anton Mensah M.D. 08/10/2022 7:49 PM Head MRA 08/10/22 15:46 MR angio head wo con CLINICAL HISTORY: cva eval, KENROY-CKD TECHNIQUE: 3D time of flight MRA of the head was performed without intravenous contrast. 3-D reconstructions were obtained in multiple planes. Comparison: Comparison is made to MRI brain 04/17/2022 FINDINGS: Flow signal is shown in the intracranial segments of the internal carotid arteries, the anterior, middle and posterior cerebral arteries, the anterior and posterior communicating arteries, cerebellar arteries, the intracranial segments of the vertebral arteries, and the basilar artery. No aneurysm, arteriovenous malformation, dissection, nor hemodynamically significant flow stenosis is shown. Assessment of stenosis of the internal carotid arteries is based on NASCET criteria. IMPRESSION: No evidence of acute intracranial abnormality. In particular, no occlusion, hemorrhage, or aneurysmal disease is seen. Electronically signed by: Anton Mensah M.D. 08/10/2022 7:47 PM Neck MRA 08/10/22 15:46 MR angio neck wo con CLINICAL HISTORY: cva eval, KENROY-CKD TECHNIQUE: 3D time of flight MRA of the neck was performed without intravenous contrast. 3-D reconstructions were obtained in multiple planes. Comparison: None available at the time of this dictation. FINDINGS: Flow signal consistent with patency is shown within the common carotid, cervical segments of the internal carotid, external carotid, and vertebral arteries. No aneurysm, dissection, hemodynamically significant flow stenosis, nor occlusion is present. Assessment of stenosis of the internal carotid arteries is based on NASCET criteria. IMPRESSION: Patency of the bilateral carotid and vertebral arteries with no evidence of hemodynamically significant stenosis. Electronically signed by: Atnon Mensah M.D. 08/11/2022 9:40 AM Hospital Course (1) Stroke-like symptom: acute, serous risk, complex decision, resolved R weakness, reduced responsiveness. ?CVA eval, EMS report had some right facial droop and right arm weakness which she had not experienced before, and which is not present on admitting exam - .Symptoms improved within approximately 30 minutes. Is on DOAC at baseline, no antiplatelet. TNKase contraindicated 2/2 DOAC use CThead:No acute findings. Age-related involutional change - Brain MRI/MRA/neck MRA negative for acute abnormalities patent bilateral carotic arteries may consider this tia, will have 21 d of plavix in addition to DOAC and follow up with pcp to consider neurology appointment Chronic dementia Continue memantine 5 mg p.o. twice daily Atrial fibrillation chronic and stable Rate controlled on admission Continue apixaban 2.5 mg p.o. twice daily, metoprolol 50 mg p.o. twice daily SCC of the penis S/p Mohs surgery with inability to get clear margins without extensive re section Continues with imiquimod, topical therapy by dermatology. 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, chronci and stable Continue sodium bicarbonate calcitriol 0.5 mg daily Not on CHAPO/ARB due to baseline borderline hypotension Total Time Total Time Spent Total Time Spent (In Minutes): It required greater than 30 minutes to prepare this patient for discharge Discharge Plan Discharge Items Patient Disposition: Home - Home Health Services Reason For Visit: PRESYNCOPE ?CVA Discharge Diagnosis: transient neurological changes, complete resolution recent Mohs surgery to glan penis, with post op care Activity: Resume your previous activity Non-emergency contact: Primary Care Provider Call non-emergency contact if: your symptoms worsen Follow-up/Referrals: Pablo Hernandez DO [Primary Care Provider] - Kelly Almazan MD [Outside Practitioners] - 08/27/22 11:20 am (Arrival time of 11:05) Diet: Regular Addtl Attending Provider Instructions: For your transient ischemic attack or the intermittent episode you had prior to coming in we would recommend Plavix oral therapy once a day for 21 days. 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 as soon as possible Pending Studies at Discharge: Yes (urine culture) Stand-Alone Forms: My [facility] [place], Smoking Cessation Medications and DC Order Prescriptions: New clopidogrel [Plavix] 75 mg tablet 75 mg PO DAILY Qty: 21 0RF Continued memantine 5 mg tablet 5 mg PO BID Qty: 180 1RF magnesium oxide 400 mg (241.3 mg magnesium) tablet 400 mg PO BID Qty: 60 0RF sodium bicarbonate 650 mg tablet 650 mg PO BID Qty: 180 3RF calcitriol 0.5 mcg capsule 0.5 mcg PO DAILY Qty: 90 3RF Myrbetriq 50 mg tablet extended release 24 hr 50 mg PO DAILY Qty: 90 1RF Eliquis 2.5 mg tablet 2.5 mg PO BID Qty: 180 3RF levothyroxine [Synthroid] 25 mcg tablet 25 mcg PO DAILYBB Qty: 30 3RF gabapentin 100 mg capsule 100 mg PO BID Qty: 180 3RF tamsulosin 0.4 mg capsule 0.4 mg PO DAILY Qty: 90 3RF metoprolol tartrate 50 mg tablet 25 mg PO BID 90 Days Qty: 90 3RF omeprazole 40 mg capsule,delayed release(DR/EC) 40 mg PO BID 90 Days Qty: 180 1RF tramadol 50 mg tablet 50 mg PO BID PRN (Reason: pain) Qty: 10 0RF Rx Instructions: take one or two before MRI calcium carbonate-vitamin D3 [Calcium 500 + D] 500 mg(1,250mg) -200 unit tablet 1 tab PO QAM vitamin B complex Tablet 1 tab PO QAM Probiotic 10 billion cell Capsule 10,000 mmu cells PO QDD Rx Instructions: TAKE WITH EVENING MEAL cholecalciferol (vitamin D3) 25 mcg (1,000 unit) Tablet 0 mcg PO DAILY multivitamin Tablet 1 tab PO DAILY loperamide 2 mg capsule 2 mg PO Q6H PRN (Reason: loose stool) Qty: 20 0RF Admission Data Admit Date/Time: 08/10/22 14:17 Attending Provider: Tee Rao Admit Provider: Charlie Walsh Primary Care Provider: Pablo Hernandez Other Providers: Charlie Walsh Coding Level of Care Code 32282 INP/OBS DISCH >30 MIN Diagnoses Stroke-like symptom R29.90 Weakness R53.1 KENROY (acute kidney injury) N17.9
--- NOTE | 2022-08-25 14:29 | Coding Query ---
A supporting diagnosis is required for the test/procedure performed on this patient in order for us to be reimbursed by the patient's insurance. Please provide a supporting diagnosis for the following test/procedure listed below next to the test name along with your signature. *If there is no additional diagnosis for this patient that would support the following test/procedure please document that below next to the test/procedure. Test(s)/Procedure(s) that require a supporting diagnosis: MRA NECK W/O CONTRAST DIAGNOSIS:___G81.91for R sided weakness MRA HEAD W/O CONTRAST DIAGNOSIS: G81.91for R sided weakness Provider Signature: Charlie Walsh IV Date: _08/25/22 Thank you Priti Sanders Health Information Management Once completed, please kindly fax back to [phone] For questions please call [phone] MELODIE
== END 2022-08-12 14:20 | disposition home or self-care (01) ==
LOC: 4W 12:02 → ED 12:02 → SUATTDRO 14:17 → 4W 15:25
DX: I95.9 Hypotension, unspecified; R73.03 Prediabetes; I48.20 Chronic atrial fibrillation, unspecified; G81.91 Hemiplegia, unspecified affecting right dominant side; K21.9 Gastro-esophageal reflux disease without esophagitis; C60.9 Malignant neoplasm of penis, unspecified; F03.90 Unspecified dementia, unspecified severity, without behavioral disturbance, psychotic disturbance, mood disturbance, and anxiety; R40.4 Transient alteration of awareness; N17.9 Acute kidney failure, unspecified; E03.9 Hypothyroidism, unspecified; R53.1 Weakness; Z79.890 Hormone replacement therapy; N18.32 Chronic kidney disease, stage 3b; Z79.01 Long term (current) use of anticoagulants; Z79.899 Other long term (current) drug therapy; Z20.822 Contact with and (suspected) exposure to COVID-19; Z98.84 Bariatric surgery status

== ENCOUNTER 2023-01-06 14:39 | Inpatient (IN) ==
--- NOTE | 2023-01-06 15:20 | Emergency Department Note ---
Impression & Plan Syncopal episodes ED Provider Note HISTORY OF PRESENT ILLNESS: Patient is an 87-year-old male presenting with multiple syncopal episodes. Patient was accompanying his to her doctor's appointment today when he reportedly felt lightheaded and then slumped over in the chair and was unresponsive for a few seconds per his . reports the patient came to but seem to be very out of it, so she called 911. On EMS arrival, the patient was found to be vitally stable but did have a another syncopal episode in their presence. Patient denies any chest pain or shortness of breath prior to syncopizing. He states that he has had similar episodes in the past and was found to be hypotensive at the time. He denies any recent fevers. Denies any dysuria or hematuria. Denies any chest pain or abdominal pain. He does report he has been having intermittent episodes of diarrhea. Denies any recent travel. Denies any recent exposure to sick contacts. Patient has a history of atrial fibrillation is on Eliquis and Plavix ROS: as above PHYSICAL EXAM: Constitutional: Patient appears in no acute distress. HENT: Head: Normocephalic and atraumatic. Eyes: EOMI, PERRL Mouth/Throat: Mucous membranes moist. Neck: Trachea midline. Neck supple. Cardiovascular: Irregular rhythm. No murmurs, rubs or gallops. Intact distal pulses. Pulmonary/Chest: No respiratory distress. Breath sounds clear and equal bilaterally. No wheezes or rales. Abdominal: Abdomen soft, no tenderness, rebound or guarding. Musculoskeletal: No edema, tenderness or deformity noted. Skin: Warm and dry. No rash, erythema, pallor or cyanosis Neurological: Alert and keenly responsive. CN II-XII grossly intact, moving all extremities equally and fully. MDM: - Vitals signs stable. - History obtained via EMS and patient's , given patient's amnesia to events. Patient presents with multiple syncopal episodes. Patient was accompanying his at a doctor's appointment when he reportedly felt lightheaded and then slumped over in a chair and was unresponsive for a few seconds. reports the patient came to but seemed out of it. On EMS arrival, patient was noted to have another syncopal episode in the presence. Patient denies any chest pain or shortness of breath. Denies any DVT or PE history. He is on Eliquis and Plavix for history of A-fib. - Chronic conditions affecting care: Afib; CKD; DM-2; hypothyroidism - Differential diagnoses include, but are not limited to: ACS; PE; dissection; CVA; intracranial hemorrhage; seizure; syncope - Order placed for continuous cardiac monitoring. At this time, monitor showed rate of 85 bpm with irregular rhythm, per my interpretation. - External medical records reviewed. EMS run sheet reviewed. Patient vitally stable in route. No medications given pre-hospital. - EKG reviewed by myself showed atrial fibrillation. Rate 72 bpm. QTc 420. No acute ischemic changes. - Laboratory workup interpreted by myself showed normal WBC; chronic anemia; elevated dimer (840); normal troponin; CKD; hypoglycemia (glucose 63); hypocalcemia (Ca 7.8); normal tsh - Patient was given PO food for hypoglycemia in ER. - Repeat troponin WNL - UA negative for infection. - Orthostatic vitals WNL - CXR negative for pneumonia, per my interpretation. - CT head wo contrast negative for acute intracranial pathology. - Given elevated dimer, CTA obtained. Negative for PE or dissection. Noted to have diffuse coronary artery disease. - Discussion was had with social worker masters about patient's case and need for admission - Hospitalist, Dr. Dye, consulted for admission - [facility] ASSESSMENT AND PLAN: Diagnosis: recurrent syncopal episodes Plan: admit Past Med/Surg History Medical History (Updated 01/06/23 @ 21:07 by Zoie Velasquez MD) Abdominal pain Acute cholecystitis Anal fistula Anemia of chronic disease Atrial fibrillation (04/22/12) Atrial fibrillation no cardioversions/ no pacer. treated with medication and follows with PCP Balanoposthitis Bradycardia BRBPR (bright red blood per rectum) Chronic kidney disease variable creatinines with baseline ~1.6-2.1 > follows with Dr. Vences Chronic pruritus Chronic renal insufficiency, stage IV (severe) Colitis Concussion COVID-19 DDD (degenerative disc disease), lumbar Degenerative disc disease Dementia Dementia Diabetes mellitus, type 2 diet controlled Diarrhea Diarrhea Discharge planning issues Dysphagia "trouble keeping foods down" Fall LAST FALL 1 WEEK AGO Fall walker and cane -- fall risk. GERD (gastroesophageal reflux disease) History of bleeding ulcers History of BPH Hx of migraines Hx of sleep apnea no device Hyperkalemia Hypoglycemia Hypothyroidism Osteoarthritis Peptic ulcer disease Phimosis Rectal bleed SBO (small bowel obstruction) SCC (squamous cell carcinoma), penis Secondary hyperparathyroidism of renal origin Small bowel obstruction due to adhesions Stage 3b chronic kidney disease Substernal chest pain resolved per pt Syncope Syncope and collapse Type 2 diabetes mellitus Unresponsiveness Vitamin D deficiency Surgical History H/O gastric bypass 2004 H/O knee surgery "MULTIPLE KNEE SURGERIES"- R/L History of colonoscopy History of esophagogastroduodenoscopy (EGD) History of tooth extraction History of total knee replacement RT/LEFT History of total shoulder replacement LEFT Hx of circumcision 2 yrs ago Hx of transurethral resection of prostate S/P laparoscopic cholecystectomy (09/17/20) Laparoscopic Cholecystectomy with Cholangiogram with akira drain 09/17/20 Dr. Atkinson Family History Sister Family history of diabetes mellitus Social History (Updated 10/28/22 @ 15:39 by YAAKOV Chamberlain) Smoking Status: Former smoker Tobacco Type: Cigarettes Second Hand Exposure: No; Do You Dip or Chew Tobacco: No; Hx Alcohol Use: No Hx Substance Use: No Preferred Language: Nigerian Communication Ability: Effective Communication Ability Comment: can be forgetful Senior Energy Consultant Required: No Beliefs That Will Affect Care: None marital status: Current Living Situation: Spouse Current Living Situation Comment: home with current occupational status: retired Feels Safe at Home: Yes Diet: regular Seatbelt Use: always Assistive Devices: Cane and Walker Allergies Allergies Allergy/AdvReac Type Severity Reaction Status Date / Time No Known Allergies Allergy Verified 01/06/23 16:54 Home Meds Home Medications Medication Instructions Recorded Confirmed calcium carbonate 500 mg-vitamin 1 tab PO QAM 12/18/19 01/06/23 D3 5 mcg (200 unit) tablet (Calcium 500 + D) vitamin B complex 1 tab PO QAM 12/18/19 01/06/23 Lactobacillus acidophilus 10 10,000 mmu cells PO QDD 01/18/21 01/06/23 billion cell capsule (Probiotic) multivitamin 1 tab PO DAILY 08/01/22 01/06/23 cholecalciferol (vitamin D3) 25 1,000 mcg PO DAILY 08/10/22 01/06/23 mcg (1,000 unit) tablet acetaminophen 500 mg tablet 500 mg PO Q8H PRN Pain 12/22/22 01/06/23 (Tylenol Extra Strength) Previous Rx's Medication Instructions Recorded apixaban 2.5 mg tablet (Eliquis) 2.5 mg PO BID #180 tabs 02/20/22 gabapentin 100 mg capsule 100 mg PO BID #180 caps 06/19/22 tamsulosin 0.4 mg capsule 0.4 mg PO DAILY #90 caps 06/19/22 sodium bicarbonate 650 mg tablet 650 mg PO BID Stomach upset #180 08/10/22 tabs clopidogrel 75 mg tablet (Plavix) 75 mg PO DAILY #90 tabs 08/24/22 mirabegron 25 mg tablet,extended 25 mg PO DAILY #30 tabs 08/27/22 release 24 hr calcitriol 0.25 mcg capsule 0.25 mcg PO DAILY #90 caps 10/06/22 levothyroxine 25 mcg tablet 25 mcg PO DAILYBB 90 days #90 tabs 10/12/22 (Synthroid) magnesium oxide 400 mg (241.3 mg 400 mg PO BID #180 tabs 11/23/22 magnesium) tablet metoprolol tartrate 50 mg tablet 50 mg PO BID #180 tabs 11/23/22 omeprazole 40 mg capsule,delayed 40 mg PO BID 90 days #180 caps 11/23/22 release docusate sodium 100 mg tablet 100 mg PO BID #60 tabs 12/22/22 Results & Data (ED) Vital Signs Vital Signs - 24 hr 01/06/23 14:49 01/06/23 15:03 01/06/23 15:00 Temperature 36.6 C Temperature Source Oral Pulse Rate - Lying Pulse Rate - Sitting Pulse Rate - Standing Pulse Rate 69 67 79 Pulse Rate from SpO2 Sensor 77 Pulse Rhythm Regular Pulse Strength Normal Respiratory Rate 20 19 Respiratory Effort / Characteristics Non-Labored Spontaneous Respiratory Depth Normal Respiratory Pattern Regular Blood Pressure - Lying Blood Pressure - Sitting Blood Pressure- Standing Blood Pressure 111/63 120/72 Blood Pressure Mean 79 88 Blood Pressure Position Sitting Pulse Oximetry 94 100 Oxygen Delivery Method Room Air Room Air Oxygen Flow Rate 2 Sepsis Recent Fever Within 48 Hours No Sepsis New/Unexplained Change in Mental Status No Sepsis Action Taken by Nursing No Action Required 01/06/23 15:15 01/06/23 15:30 01/06/23 15:45 Temperature Temperature Source Pulse Rate - Lying Pulse Rate - Sitting Pulse Rate - Standing Pulse Rate 64 84 72 Pulse Rate from SpO2 Sensor 66 76 63 Pulse Rhythm Pulse Strength Respiratory Rate 18 24 15 Respiratory Effort / Characteristics Respiratory Depth Respiratory Pattern Blood Pressure - Lying Blood Pressure - Sitting Blood Pressure- Standing Blood Pressure 118/78 112/71 115/68 Blood Pressure Mean 91 84 83 Blood Pressure Position Pulse Oximetry 100 100 98 Oxygen Delivery Method Room Air Room Air Room Air Oxygen Flow Rate Sepsis Recent Fever Within 48 Hours Sepsis New/Unexplained Change in Mental Status Sepsis Action Taken by Nursing 01/06/23 16:31 01/06/23 16:45 01/06/23 17:00 Temperature Temperature Source Pulse Rate - Lying 82 Pulse Rate - Sitting 86 Pulse Rate - Standing 93 H Pulse Rate 71 70 Pulse Rate from SpO2 Sensor 79 Pulse Rhythm Pulse Strength Respiratory Rate 16 18 Respiratory Effort / Characteristics Respiratory Depth Respiratory Pattern Blood Pressure - Lying 121/71 Blood Pressure - Sitting 135/74 Blood Pressure- Standing 138/75 Blood Pressure 124/80 126/73 Blood Pressure Mean 94 90 Blood Pressure Position Pulse Oximetry 100 99 Oxygen Delivery Method Room Air Room Air Oxygen Flow Rate Sepsis Recent Fever Within 48 Hours Sepsis New/Unexplained Change in Mental Status Sepsis Action Taken by Nursing 01/06/23 17:00 01/06/23 17:15 01/06/23 18:00 Temperature Temperature Source Pulse Rate - Lying Pulse Rate - Sitting Pulse Rate - Standing Pulse Rate 70 81 75 Pulse Rate from SpO2 Sensor Pulse Rhythm Pulse Strength Respiratory Rate 24 23 22 Respiratory Effort / Characteristics Respiratory Depth Respiratory Pattern Blood Pressure - Lying Blood Pressure - Sitting Blood Pressure- Standing Blood Pressure 124/74 115/67 125/81 Blood Pressure Mean 90 83 95 Blood Pressure Position Pulse Oximetry 95 Oxygen Delivery Method Room Air Oxygen Flow Rate Sepsis Recent Fever Within 48 Hours Sepsis New/Unexplained Change in Mental Status Sepsis Action Taken by Nursing 01/06/23 18:30 01/06/23 20:10 01/06/23 20:48 Temperature Temperature Source Pulse Rate - Lying Pulse Rate - Sitting Pulse Rate - Standing Pulse Rate 84 85 Pulse Rate from SpO2 Sensor 88 80 Pulse Rhythm Pulse Strength Respiratory Rate 16 14 Respiratory Effort / Characteristics Respiratory Depth Respiratory Pattern Blood Pressure - Lying Blood Pressure - Sitting Blood Pressure- Standing Blood Pressure 128/96 140/91 Blood Pressure Mean 106 107 Blood Pressure Position Pulse Oximetry 94 98 Oxygen Delivery Method Room Air Room Air Oxygen Flow Rate Sepsis Recent Fever Within 48 Hours Sepsis New/Unexplained Change in Mental Status Sepsis Action Taken by Nursing Laboratory Data 01/06/23 15:26 01/06/23 15: Lab Results 01/06/23 01/06/23 01/06/23 Range/Units 15:26 15: 15:26 WBC 5.95 (4.8-10.8) K/ul RBC 3.12 L (4.70-6.10) M/uL Hgb 9.4 L (14.0-18.0) g/dl Hct 30.7 L (42.0-52.0) % MCV 98.4 (80.0-100.0) fL MCH 30.1 (25.0-34.0) pg MCHC 30.6 L (32.0-36.0) g/dL RDW Std Deviation 54.3 H (36.4-46.3) fL RDW Coeff of Yinka 15.0 H (11.5-14.5) % Plt Count 239 (130-400) K/uL MPV 10.1 (9.4-12.4) fL Immature Gran % (Auto) 0.0 % Neut % (Auto) 58.6 % Lymph % (Auto) 22.7 % Drew % (Auto) 13.1 % Eos % (Auto) 4.9 % Baso % (Auto) 0.7 % Neut # (Auto) 3.49 (1.40-6.50) K/uL Lymph # (Auto) 1.35 (1.2-3.4) K/uL Drew # (Auto) 0.78 H (0.11-0.59) K/uL Eos # (Auto) 0.29 (0-0.50) K/uL Baso # (Auto) 0.04 (0-0.2) K/uL Immature Gran # (Auto) 0.00 L (0.01-0.20) K/uL D-Dimer Cancelled Sodium 139 (136-145) mmol/L Potassium 4.7 (3.5-5.1) mmol/L Chloride 116 H (98-107) mmol/L Carbon Dioxide 20 L (21-32) mmol/L Anion Gap 3 (3-11) BUN 26 H (6-23) mg/dl Creatinine 2.12 H (0.6-1.4) mg/dl Est Cr Clr Drug Dosing 29.0 ml/min Est GFR ( Amer) 31.7 ml/min Est GFR (Non-Af Amer) 27.4 ml/min BUN/Creatinine Ratio 12.3 (10-20) Glucose 63 L (70-99(Fasting)) mg/dl POC Glucose (70-99) mg/dl Lactate (0.4-2.0) mmol/L Calcium 7.8 L (8.6-10.3) mg/dl Magnesium 1.9 (1.7-2.4) mg/dl Total Bilirubin 0.3 (0.2-1.0) mg/dl AST 15 (13-39) U/L ALT 12 (7-52) U/L Alkaline Phosphatase 99 (34-104) U/L Troponin I High Sens 5.1 (0-20) pg/ml Total Protein 5.9 L (6.0-8.3) gm/dl Albumin 2.7 L (3.4-5.0) gm/dl Globulin 3.2 (2.5-4.0) gm/dl Albumin/Globulin Ratio 0.8 L (0.9-2) TSH (0.300-4.500) uIu/ml Urine Color Urine Appearance (Clear) Urine pH (4.5-7.5) Ur Specific [place] (1.000-1.030) Urine Protein (Negative) Urine Glucose (UA) (Negative) Urine Ketones (Negative) Urine Blood (Negative) Urine Nitrite (Negative) Urine Bilirubin (Negative) Urine Urobilinogen (Negative) Ur Leukocyte Esterase (Negative) Urine WBC (Auto) (0-5) /hpf Urine RBC (Auto) (0-4) /hpf U Hyaline Cast (Auto) (0-5) /lpf U Epithel Cells (Auto) (0-5) /lpf Urine Bacteria (Auto) (Negative) 01/06/23 01/06/23 01/06/23 Range/Units 15:26 15:26 15:42 WBC (4.8-10.8) K/ul RBC (4.70-6.10) M/uL Hgb (14.0-18.0) g/dl Hct (42.0-52.0) % MCV (80.0-100.0) fL MCH (25.0-34.0) pg MCHC (32.0-36.0) g/dL RDW Std Deviation (36.4-46.3) fL RDW Coeff of Yinka (11.5-14.5) % Plt Count (130-400) K/uL MPV (9.4-12.4) fL Immature Gran % (Auto) % Neut % (Auto) % Lymph % (Auto) % Drew % (Auto) % Eos % (Auto) % Baso % (Auto) % Neut # (Auto) (1.40-6.50) K/uL Lymph # (Auto) (1.2-3.4) K/uL Drew # (Auto) (0.11-0.59) K/uL Eos # (Auto) (0-0.50) K/uL Baso # (Auto) (0-0.2) K/uL Immature Gran # (Auto) (0.01-0.20) K/uL D-Dimer Sodium (136-145) mmol/L Potassium (3.5-5.1) mmol/L Chloride (98-107) mmol/L Carbon Dioxide (21-32) mmol/L Anion Gap (3-11) BUN (6-23) mg/dl Creatinine (0.6-1.4) mg/dl Est Cr Clr Drug Dosing ml/min Est GFR ( Amer) ml/min Est GFR (Non-Af Amer) ml/min BUN/Creatinine Ratio (10-20) Glucose (70-99(Fasting)) mg/dl POC Glucose 76 (70-99) mg/dl Lactate 1.2 (0.4-2.0) mmol/L Calcium (8.6-10.3) mg/dl Magnesium (1.7-2.4) mg/dl Total Bilirubin (0.2-1.0) mg/dl AST (13-39) U/L ALT (7-52) U/L Alkaline Phosphatase (34-104) U/L Troponin I High Sens (0-20) pg/ml Total Protein (6.0-8.3) gm/dl Albumin (3.4-5.0) gm/dl Globulin (2.5-4.0) gm/dl Albumin/Globulin Ratio (0.9-2) TSH 2.415 (0.300-4.500) uIu/ml Urine Color Urine Appearance (Clear) Urine pH (4.5-7.5) Ur Specific [place] (1.000-1.030) Urine Protein (Negative) Urine Glucose (UA) (Negative) Urine Ketones (Negative) Urine Blood (Negative) Urine Nitrite (Negative) Urine Bilirubin (Negative) Urine Urobilinogen (Negative) Ur Leukocyte Esterase (Negative) Urine WBC (Auto) (0-5) /hpf Urine RBC (Auto) (0-4) /hpf U Hyaline Cast (Auto) (0-5) /lpf U Epithel Cells (Auto) (0-5) /lpf Urine Bacteria (Auto) (Negative) 01/06/23 01/06/23 01/06/23 Range/Units 15:50 16:05 18:26 WBC (4.8-10.8) K/ul RBC (4.70-6.10) M/uL Hgb (14.0-18.0) g/dl Hct (42.0-52.0) % MCV (80.0-100.0) fL MCH (25.0-34.0) pg MCHC (32.0-36.0) g/dL RDW Std Deviation (36.4-46.3) fL RDW Coeff of Yinka (11.5-14.5) % Plt Count (130-400) K/uL MPV (9.4-12.4) fL Immature Gran % (Auto) % Neut % (Auto) % Lymph % (Auto) % Drew % (Auto) % Eos % (Auto) % Baso % (Auto) % Neut # (Auto) (1.40-6.50) K/uL Lymph # (Auto) (1.2-3.4) K/uL Drew # (Auto) (0.11-0.59) K/uL Eos # (Auto) (0-0.50) K/uL Baso # (Auto) (0-0.2) K/uL Immature Gran # (Auto) (0.01-0.20) K/uL D-Dimer 840 H* Sodium (136-145) mmol/L Potassium (3.5-5.1) mmol/L Chloride (98-107) mmol/L Carbon Dioxide (21-32) mmol/L Anion Gap (3-11) BUN (6-23) mg/dl Creatinine (0.6-1.4) mg/dl Est Cr Clr Drug Dosing ml/min Est GFR ( Amer) ml/min Est GFR (Non-Af Amer) ml/min BUN/Creatinine Ratio (10-20) Glucose (70-99(Fasting)) mg/dl POC Glucose (70-99) mg/dl Lactate (0.4-2.0) mmol/L Calcium (8.6-10.3) mg/dl Magnesium (1.7-2.4) mg/dl Total Bilirubin (0.2-1.0) mg/dl AST (13-39) U/L ALT (7-52) U/L Alkaline Phosphatase (34-104) U/L Troponin I High Sens 6.3 (0-20) pg/ml Total Protein (6.0-8.3) gm/dl Albumin (3.4-5.0) gm/dl Globulin (2.5-4.0) gm/dl Albumin/Globulin Ratio (0.9-2) TSH (0.300-4.500) uIu/ml Urine Color Dark Yellow Urine Appearance Clear (Clear) Urine pH 5.5 (4.5-7.5) Ur Specific [place] 1.016 (1.000-1.030) Urine Protein Trace H (Negative) Urine Glucose (UA) Negative (Negative) Urine Ketones Negative (Negative) Urine Blood Negative (Negative) Urine Nitrite Negative (Negative) Urine Bilirubin Negative (Negative) Urine Urobilinogen Negative (Negative) Ur Leukocyte Esterase 2+ H (Negative) Urine WBC (Auto) >30 H (0-5) /hpf Urine RBC (Auto) 0-4 (0-4) /hpf U Hyaline Cast (Auto) 1-5 (0-5) /lpf U Epithel Cells (Auto) 20-30 H (0-5) /lpf Urine Bacteria (Auto) Negative (Negative) Administered Medications Discontinued Medications Ioversol (Ioversol 350 Mg 125ml Prefilled Syringe) 118 ml IV ONCE ONE Stop: 01/06/23 18:50 Last Admin: 01/06/23 19:34 Dose: Not Given Documented By: SERAFINO Ioversol (Ioversol 350 Mg 125ml Prefilled Syringe) 118 ml IV ONCE ONE Stop: 01/06/23 19:04 Last Admin: 01/06/23 19:03 Dose: 118 ml Documented By: NADIA Imaging Data Radiologist's Impression: Chest X-Ray 01/06/23 15:17 XR chest 1V portable CLINICAL HISTORY: weakness COMPARISON STUDY: Chest radiograph December 24, 2022. FINDINGS: Left shoulder arthroplasty is incidentally noted. There is no pneumothorax or pleural effusion. Cardiomegaly is unchanged. There is no evidence for pulmonary edema. Slight blunting of the right costophrenic angle is unchanged. IMPRESSION: No acute cardiopulmonary findings. No change in appearance of the chest. ACT 112: Negative or not required by law. Electronically signed by: Emiliano Meier M.D. 01/06/2023 5:[address] 01/06/23 15:17 CT head/brain wo con CLINICAL HISTORY: 87 years-old Male with syncopal episodes. Acute syncope TECHNIQUE: Multiple axial CT images of the head were obtained without contrast. A dose lowering technique was utilized adhering to the principles of ALARA. CT DOSE: 625.80 mGy.cm COMPARISON: 12/22/2022. FINDINGS: No acute intracranial hemorrhage, midline shift, intracranial mass, hydrocep halus, territorial ischemia or abnormal extra-axial collection. Involutional changes with chronic microvascular ischemic disease. The calvarium is intact. Prior bilateral lens repair. The paranasal sinuses, mastoid air cells, and middle ear cavities are clear. IMPRESSION: No acute intracranial abnormality. ACT 112: Negative or not required by law. The above report was generated using voice recognition software. It may contain grammatical, syntax or spelling errors. Electronically signed by: Sixto Armenta M.D. 01/06/2023 4:37 PM Chest CTA 01/06/23 17:27 CT ANGIOGRAPHY OF THE CHEST, PULMONARY EMBOLUS PROTOCOL CLINICAL HISTORY: Syncope. Evaluate for pulmonary embolus. COMPARISON STUDY: Chest radiograph performed earlier today. Chest CT October 04, 2021. TECHNIQUE: Following IV administration of Optiray, helical axial images of the chest were obtained utilizing the pulmonary embolus protocol. Maximal intensity projections and sagittal and coronal reformats were viewed on an independent 3D workstation. IV contrast was administered without complication. Automated exposure control was utilized for the study. A dose lowering technique was utilized adhering to the principles of ALARA. CT DOSE: 939.26 mGy.cm FINDINGS: No pulmonary emboli are identified. Moderate cardiomegaly and extensive coronary artery calcification is noted. There is no pericardial effusion. There is no thoracic lymphadenopathy. Dilatation of the ascending aorta, measuring 4.2 cm is similar to prior chest CT. Thoracic aortic opacification is suboptimal but no dissection is identified. No pneumothorax or pleural effusion is present. There is no consolidation to suggest pneumonia. Subpleural groundglass opacities favor atelectasis. Extensive anterior osteophytosis of the thoracic spine is incidentally noted. No acute fractures are identified within visualized portions of the bony thorax. There are postoperative findings within the stomach. IMPRESSION: 1. No pulmonary emboli identified. 2. No acute intrathoracic findings. 3. Moderate cardiomegaly and extensive coronary artery calcification. 4. Stable dilatation of the ascending aorta, measuring 4.2 cm. ACT 112: Negative or not required by law. Electronically signed by: Emiliano Meier M.D. 01/06/2023 7:08 PM Discharge Plan Visit Data Chief Complaint: Altered Mental Status Stated Complaint: ALTERED MENTAL STATUS ED Provider: Zoie Velasquez Discharge Problem: Syncopal episodes Forms Stand Alone Forms: My [facility] [place] [employer] Jeans Prescriptions Prescriptions: No Action Myrbetriq 25 mg tablet extended release 24 hr 25 mg PO DAILY Qty: 30 3RF calcitriol 0.25 mcg capsule 0.25 mcg PO DAILY Qty: 90 3RF levothyroxine [Synthroid] 25 mcg tablet 25 mcg PO DAILYBB 90 Days Qty: 90 1RF omeprazole 40 mg capsule,delayed release(DR/EC) 40 mg PO BID 90 Days Qty: 180 1RF metoprolol tartrate 50 mg tablet 50 mg PO BID Qty: 180 1RF magnesium oxide 400 mg (241.3 mg magnesium) tablet 400 mg PO BID Qty: 180 3RF sodium bicarbonate 650 mg tablet 650 mg PO BID Qty: 180 3RF clopidogrel [Plavix] 75 mg tablet 75 mg PO DAILY Qty: 90 1RF Eliquis 2.5 mg tablet 2.5 mg PO BID Qty: 180 3RF gabapentin 100 mg capsule 100 mg PO BID Qty: 180 3RF tamsulosin 0.4 mg capsule 0.4 mg PO DAILY Qty: 90 3RF docusate sodium 100 mg tablet 100 mg PO BID Qty: 60 0RF acetaminophen [Tylenol Extra Strength] 500 mg tablet 500 mg PO Q8H PRN (Reason: Pain) calcium carbonate-vitamin D3 [Calcium 500 + D] 500 mg(1,250mg) -200 unit tablet 1 tab PO QAM vitamin B complex Tablet 1 tab PO QAM Probiotic 10 billion cell Capsule 10,000 mmu cells PO QDD Rx Instructions: TAKE WITH EVENING MEAL cholecalciferol (vitamin D3) 25 mcg (1,000 unit) Tablet 1,000 mcg PO DAILY multivitamin Tablet 1 tab PO DAILY Referrals Referrals: Pablo Hernandez DO [Primary Care Provider] -
[2023-01-06 15:43] LABS: Basophils # (auto) 0.04 K/uL (0-0.2); Basophils % (auto) 0.7 %; Eosinophils # (auto) 0.29 K/uL (0-0.50); Eosinophils % (auto) 4.9 %; Hematocrit (blood only) 30.7 % (42.0-52.0); Hemoglobin 9.4 g/dl (14.0-18.0); Lymphocytes # (auto) 1.35 K/uL (1.2-3.4); Lymphocytes % (auto) 22.7 %; Mean Corpuscular Hemoglobin 30.1 pg (25.0-34.0); Mean Corpuscular Hgb Conc 30.6 g/dL (32.0-36.0); Mean Corpuscular Volume 98.4 fL (80.0-100.0); Mean Platelet Volume 10.1 fL (9.4-12.4); Monocytes # (auto) 0.78 K/uL (0.11-0.59); Monocytes % (auto) 13.1 %; Neutrophils # (auto) 3.49 K/uL (1.40-6.50); Neutrophils % (auto) 58.6 %; Platelet Count 239 K/uL (130-400); RDW Standard Deviation 54.3 fL (36.4-46.3); Red Blood Count 3.12 M/uL (4.70-6.10); White Blood Count 5.95 K/ul (4.8-10.8)
[2023-01-06 15:56] LABS: Albumin Globulin Ratio 0.8 (0.9-2); Albumin Level 2.7 gm/dl (3.4-5.0); BUN Creatinine Ratio 12.3 (10-20); Bilirubin,Total 0.3 mg/dl (0.2-1.0); Calcium 7.8 mg/dl (8.6-10.3); Est GFR (African American) 31.7 ml/min; Est GFR (Non-African American) 27.4 ml/min; Globulin 3.2 gm/dl (2.5-4.0); Magnesium 1.9 mg/dl (1.7-2.4); Potassium 4.7 mmol/L (3.5-5.1); Total Protein 5.9 gm/dl (6.0-8.3)
[2023-01-06 16:02] LABS: Troponin I High Sensitivity 5.1 pg/ml (0-20)
--- NOTE | 2023-01-06 16:38 | CT Scan Report ---
CT head/brain wo con CLINICAL HISTORY: 87 years-old Male with syncopal episodes. Acute syncope TECHNIQUE: Multiple axial CT images of the head were obtained without contrast. A dose lowering tech nique was utilized adhering to the principles of ALARA. CT DOSE: 625.80 mGy.cm COMPARISON: 12/22/2022. FINDINGS: No acute intracranial hemorrhage, midline shift, intracranial mass, hydrocephalus, territorial ischem ia or abnormal extra-axial collection. Involutional changes with chronic microvascular ischemic disea se. The calvarium is intact. Prior bilateral lens repair. The paranasal sinuses, mastoid air cells, and m iddle ear cavities are clear. IMPRESSION: No acute intracranial abnormality. ACT 112: Negative or not required by law. The above report was generated using voice recognition software. It may contain grammatical, syntax o r spelling errors. Electronically signed by: Sixto Armenta M.D. 01/06/2023 4:37 PM
--- NOTE | 2023-01-06 17:13 | XRay Report ---
XR chest 1V portable CLINICAL HISTORY: weakness COMPARISON STUDY: Chest radiograph December 24, 2022. FINDINGS: Left shoulder arthroplasty is incidentally noted. There is no pneumothorax or pleural effus ion. Cardiomegaly is unchanged. There is no evidence for pulmonary edema. Slight blunting of the righ t costophrenic angle is unchanged. IMPRESSION: No acute cardiopulmonary findings. No change in appearance of the chest. ACT 112: Negative or not required by law. Electronically signed by: Emiliano Meier M.D. 01/06/2023 5:12 PM
[2023-01-06 17:21] LABS: D Dimer 840 ug/L FEU (0-500)
[2023-01-06 17:26] LABS: Appearance Urine Clear (Clear); Bacteria Urine Automated Negative (Negative); Bilirubin Urine Negative (Negative); Blood Urine Negative (Negative); Color Urine Dark Yellow; Epithelial Cell Urine Auto 20-30 /lpf (0-5); Glucose Urine UA Negative (Negative); Ketones Urine Negative (Negative); Leukocyte Esterase Urine 2+ (Negative); Nitrite Urine Negative (Negative); Protein Urine Trace (Negative); RBC Urine Automated 0-4 /hpf (0-4); Specific Gravity Urine 1.016 (1.000-1.030); Urobilinogen Urine Negative (Negative); WBC Urine Automated >30 /hpf (0-5); pH Urine 5.5 (4.5-7.5)
[2023-01-06] MEDS ORDERED: IOVERSOL 350 MG 125mL Prefilled Syringe IV ONE ×2 (18:49→19:03)
--- NOTE | 2023-01-06 19:09 | CT Scan Report ---
CT ANGIOGRAPHY OF THE CHEST, PULMONARY EMBOLUS PROTOCOL CLINICAL HISTORY: Syncope. Evaluate for pulmonary embolus. COMPARISON STUDY: Chest radiograph performed earlier today. Chest CT October 04, 2021. TECHNIQUE: Following IV administration of Optiray, helical axial images of the chest were obtained ut ilizing the pulmonary embolus protocol. Maximal intensity projections and sagittal and coronal refor mats were viewed on an independent 3D workstation. IV contrast was administered without complication . Automated exposure control was utilized for the study. A dose lowering technique was utilized adh ering to the principles of ALARA. CT DOSE: 939.26 mGy.cm FINDINGS: No pulmonary emboli are identified. Moderate cardiomegaly and extensive coronary artery ca lcification is noted. There is no pericardial effusion. There is no thoracic lymphadenopathy. Dilatat ion of the ascending aorta, measuring 4.2 cm is similar to prior chest CT. Thoracic aortic opacificat ion is suboptimal but no dissection is identified. No pneumothorax or pleural effusion is present. Th ere is no consolidation to suggest pneumonia. Subpleural groundglass opacities favor atelectasis. Ext ensive anterior osteophytosis of the thoracic spine is incidentally noted. No acute fractures are tip ntified within visualized portions of the bony thorax. There are postoperative findings within the st omach. IMPRESSION: 1. No pulmonary emboli identified. 2. No acute intrathoracic findings. 3. Moderate cardiomegaly and extensive coronary artery calcification. 4. Stable dilatation of the ascending aorta, measuring 4.2 cm. ACT 112: Negative or not required by law. Electronically signed by: Emiliano Meier M.D. 01/06/2023 7:08 PM
--- NOTE | 2023-01-06 20:35 | History & Physical Report ---
Date of Service January 06, 2023 Assessment & Plan (1) Unresponsive episode: Plan: Unresponsive episode - Differential: hypoglycemia, hypotension, orthostasis, UTI, arrhythmia - Mildly elevated d-dimer with neck chest CTA, negative head CT - Blood glucose 63 on admission, likely secondary to diarrhea/poor oral intake - increased with food - continue to monitor, IVF LR @80 ml/hr for 2 hours - Monitor on telemetry - Check orthostatic vitals UTI - s/p surgery 12/15 with catheter removed 12/25 - history of ESBL - UA with LE, WBC-> given recent surgery/Lynch catheter will treat with Ertapenem based on prior susceptibilities. Renal dosed given CrCl<30 - no prior history of pseudomonas, and currently afebrile, hemodynamically stable defer pseudomonas coverage - f/u urine culture Left Sided Rib Pain - XR Ribs - no ecchymosis on exam Hx of TIA - started on plavix after concern for prior TIA, continue A Fib - continue Eliquis, Metoprol Hypothyroidism - TSH on admission= 2.4 - continue levothyroxine CKD Stage 4 - creatine at baseline - avoid nephrotoxic drugs, renal dose medications as appropriate - follows with nephrology LUTS, History of bladder spasm Continue Flomax 0.5 mg daily Myrbetriq Chronic dementia at baseline per Chronic Pruritus - continue gabapentin (2) Dementia: (3) Hypothyroidism: (4) Chronic renal insufficiency, stage IV (severe): (5) Orthostatic hypotension: (6) Rib pain on left side: (7) UTI (urinary tract infection): (8) Atrial fibrillation: History of Present Illness Primary Care Provider: Pablo Hernandez, DO 87 year old male with a past medical history of dementia, CKD, Afib on Eliquis, DM2, penile SC CIS s/p partial penectomy presenting with multiple syncopal episodes. Spoke with on phone and she provided some of history. He was attending a doctors appointment with his this afternoon, felt lightheaded and was unresponsive for a few seconds, she shook him and he woke up. Had a second episode similar to this, was evaluated by staff at doctors office and EMS was called. Has had similar episodes in the past with hypotension. Has had diarrhea intermittently for the past couple of weeks. Denies blood in stool, abdominal pain. states he ate very little this morning prior to going to appointment because he was worried he was going to have diarrhea. 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 had Lynch catheter removed 12/25. Urinary incontinence at baseline, denies dysuria. Denies chest pain, dyspnea. He does state that he had a fall a few days ago and is complaining of left sided rib pain. states that prior to her leaving he was back to his baseline. ED Course Significant For: Hbg= 9.4 (around baseline), D-dimer= 840, Creatine= 2.12 (at baseline), glucose= 63. lactate negative. TSH wnl. UA + LE, WBC. CXR/Chest CTA/Head CT negative. Allergies Allergy/AdvReac Type Severity Reaction Status Date / Time No Known Allergies Allergy Verified 01/06/23 16:54 Home Medications Medication Instructions Recorded Confirmed Type calcium carbonate 500 mg-vitamin 1 tab PO QAM 12/18/19 01/06/23 History D3 5 mcg (200 unit) tablet (Calcium 500 + D) vitamin B complex 1 tab PO QAM 12/18/19 01/06/23 History Lactobacillus acidophilus 10 10,000 mmu cells PO QDD 01/18/21 01/06/23 History billion cell capsule (Probiotic) apixaban 2.5 mg tablet (Eliquis) 2.5 mg PO BID #180 tabs 02/20/22 01/06/23 Rx gabapentin 100 mg capsule 100 mg PO BID #180 caps 06/19/22 01/06/23 Rx tamsulosin 0.4 mg capsule 0.4 mg PO DAILY #90 caps 06/19/22 01/06/23 Rx multivitamin 1 tab PO DAILY 08/01/22 01/06/23 History cholecalciferol (vitamin D3) 25 1,000 mcg PO DAILY 08/10/22 01/06/23 History mcg (1,000 unit) tablet sodium bicarbonate 650 mg tablet 650 mg PO BID Stomach upset #180 08/10/22 01/06/23 Rx tabs clopidogrel 75 mg tablet (Plavix) 75 mg PO DAILY #90 tabs 08/24/22 01/06/23 Rx mirabegron 25 mg tablet,extended 25 mg PO DAILY #30 tabs 08/27/22 01/06/23 Rx release 24 hr calcitriol 0.25 mcg capsule 0.25 mcg PO DAILY #90 caps 10/06/22 01/06/23 Rx levothyroxine 25 mcg tablet 25 mcg PO DAILYBB 90 days #90 tabs 10/12/22 01/06/23 Rx (Synthroid) magnesium oxide 400 mg (241.3 mg 400 mg PO BID #180 tabs 11/23/22 01/06/23 Rx magnesium) tablet metoprolol tartrate 50 mg tablet 50 mg PO BID #180 tabs 11/23/22 01/06/23 Rx omeprazole 40 mg capsule,delayed 40 mg PO BID 90 days #180 caps 11/23/22 01/06/23 Rx release acetaminophen 500 mg tablet 500 mg PO Q8H PRN Pain 12/22/22 01/06/23 History (Tylenol Extra Strength) docusate sodium 100 mg tablet 100 mg PO BID #60 tabs 12/22/22 01/06/23 Rx Past Med/Surg History Medical History (Updated 01/06/23 @ 21:46 by Adore Ivey DO) Abdominal pain Acute cholecystitis Anal fistula Anemia of chronic disease Atrial fibrillation (04/22/12) Atrial fibrillation no cardioversions/ no pacer. treated with medication and follows with PCP Balanoposthitis Bradycardia BRBPR (bright red blood per rectum) Chronic kidney disease variable creatinines with baseline ~1.6-2.1 > follows with Dr. Vences Chronic pruritus Chronic renal insufficiency, stage IV (severe) Colitis Concussion COVID-19 DDD (degenerative disc disease), lumbar Degenerative disc disease Dementia Dementia Diabetes mellitus, type 2 diet controlled Diarrhea Diarrhea Discharge planning issues Dysphagia "trouble keeping foods down" Fall LAST FALL 1 WEEK AGO Fall walker and cane -- fall risk. GERD (gastroesophageal reflux disease) History of bleeding ulcers History of BPH Hx of migraines Hx of sleep apnea no device Hyperkalemia Hypoglycemia Hypothyroidism Osteoarthritis Peptic ulcer disease Phimosis Rectal bleed SBO (small bowel obstruction) SCC (squamous cell carcinoma), penis Secondary hyperparathyroidism of renal origin Small bowel obstruction due to adhesions Stage 3b chronic kidney disease Substernal chest pain resolved per pt Syncope Syncope and collapse Type 2 diabetes mellitus Unresponsiveness Vitamin D deficiency Surgical History H/O gastric bypass 2004 H/O knee surgery "MULTIPLE KNEE SURGERIES"- R/L History of colonoscopy History of esophagogastroduodenoscopy (EGD) History of tooth extraction History of total knee replacement RT/LEFT History of total shoulder replacement LEFT Hx of circumcision 2 yrs ago Hx of transurethral resection of prostate S/P laparoscopic cholecystectomy (09/17/20) Laparoscopic Cholecystectomy with Cholangiogram with akira drain 09/17/20 Dr. Atkinson Family History Sister Family history of diabetes mellitus Social History (Updated 10/28/22 @ 15:39 by YAAKOV Chamberlain) Smoking Status: Former smoker Tobacco Type: Cigarettes Second Hand Exposure: No; Do You Dip or Chew Tobacco: No; Hx Alcohol Use: No Hx Substance Use: No Preferred Language: Chinese Communication Ability: Effective Communication Ability Comment: can be forgetful [employer] Required: No Beliefs That Will Affect Care: None marital status: Current Living Situation: Spouse Current Living Situation Comment: Lives at home with current occupational status: retired Feels Safe at Home: Yes Safety Concerns: Feels Safe At This Time Diet: regular Seatbelt Use: always Assistive Devices: Cane and Walker Review of Systems Review of Systems: As per above Physical Exam Physical Exam: Constitutional: well-appearing, no acute distress HEENT: NCAT, no conjunctival injection CV: regular rhythm, no murmur appreciated, extremities well-perfused, no LE edema Resp: CTABL, no wheezes/rales/rhonchi appreciated, no increased work of breathing GI: soft, nondistended, nontender, BS normoactive. No CVA tenderness. MSK: no gross deformities appreciated. Point tenderness over left 11th/12th rib. Skin: warm, dry, no rash appreciated Neurologic: PERRL, EOMI, accommodation nl, no face palsy, no dysarthria CN's II-XI intact bilaterally and awake Strength 5/5 in upper and lower extremities B/L Results & Data Results & Data Vital Signs (Past 12 Hours) Vital Signs Temp Pulse Resp BP Pulse Ox O2 Del Method O2 Flow Rate 01/06/23 18:30 84 16 128/96 94 Room Air 01/06/23 18:00 75 22 125/81 95 Room Air 01/06/23 17:15 81 23 115/67 01/06/23 17:00 70 24 124/74 01/06/23 16:45 70 18 126/73 99 Room Air 01/06/23 16:31 71 16 124/80 100 Room Air 01/06/23 15:45 72 15 115/68 98 Room Air 01/06/23 15:30 84 24 112/71 100 Room Air 01/06/23 15:15 64 18 118/78 100 Room Air 01/06/23 15:00 79 19 120/72 100 Room Air 01/06/23 15:03 67 01/06/23 14:49 36.6 C 69 20 111/63 94 Room Air 2 Supervising Physician Co-Signing Physician Notes Attending addendum: I have physically seen this patient, have supervised the medical residents activities, and agree with the H&P unless as otherwise noted. Assessment and Plan: Unresponsive episode- The patient will be admitted to telemetry for serial cardiac enzymes, serial EKG's, cardiac rhythm monitoring and a 2-D echocardiogram with Dopplers. Differential including but not limited to: Sepsis due to UTI, arrhythmia, hypoglycemia CT head negative, CTA chest with no acute findings but does note cardiomegaly and stable ascending aortic aneurysm at 4.2 cm Urinary tract infection- Status post urologic surgery on 12/15 with catheter removed 12/25 History of ESBL infection Ertapenem 1 g IV every 24 hours Follow urine culture and sensitivity Atrial fibrillation/TIA/hypertension- Continue Eliquis, clopidogrel and metoprolol CKD stage IV- Creatinine 2.12 with range 1.96-2.66 Follow serially Remaining orders and notations as noted Resident Activity Tracking Resident Involvement: Resident Care Provided Care Provided: Adult Hospital Medicine (2) Dementia Dementia behavioral disturbance: without behavioral disturbance Dementia type: unspecified type Qualified Code(s): F03.90 - Unspecified dementia without behavioral disturbance (8) Atrial fibrillation Atrial fibrillation type: unspecified Qualified Code(s): I48.91 - Unspecified atrial fibrillation
[2023-01-06] MEDS: ERTAPENEM SODIUM 500 MG in SYRINGE 0 ML IV SCH (23:39)
[2023-01-07] MEDS: LACTATED RINGER'S 1,000 ML IV SCH ×2 (00:14→13:11)
[2023-01-07] MEDS: APIXABAN 2.5 MG TAB PO SCH ×3 (00:14→20:27)
[2023-01-07] MEDS: ACETAMINOPHEN 325 MG TAB PO PRN ×2 (01:59→21:32)
[2023-01-07] MEDS: LEVOTHYROXINE SODIUM 25 MCG TABLET PO SCH (06:07)
--- NOTE | 2023-01-07 07:39 | XRay Report ---
XR ribs LT min 2V HISTORY: 87 years-old Male Fall acute chest trauma status post fall COMPARISON: CTA chest of same day TECHNIQUE: 2 views of left ribs FINDINGS: Reverse left shoulder arthroplasty. The imaged lung webber appear clear. No acute displaced rib fract ure identified. There are a few subtle healed chronic anterior left-sided rib fractures present. IMPRESSION: Healed chronic rib fractures. No acute displaced rib fracture or pneumothorax identified. ACT 112: Negative or not required by law. The above report was generated using voice recognition software. It may contain grammatical, syntax o r spelling errors. Electronically signed by: Sixto Armenta M.D. 01/07/2023 7:38 AM
[2023-01-07] MEDS: CALCIUM 600MG + VIT D 400 IU TAB PO SCH (08:14)
[2023-01-07] MEDS: CLOPIDOGREL BISULFATE 75 MG TAB PO SCH (08:14)
[2023-01-07] MEDS: CHOLECALCIFEROL 1,000 UNITS 25 MCG TAB PO SCH (08:14)
[2023-01-07] MEDS: CALCITRIOL 0.25 MCG CAPSULE PO SCH (08:14)
[2023-01-07] MEDS: METOPROLOL TARTRATE 50 MG TAB PO SCH ×2 (08:15→20:27)
[2023-01-07] MEDS: MULTIVITAMIN TAB PO SCH (08:15)
[2023-01-07] MEDS: GABAPENTIN 100 MG CAP PO SCH ×2 (08:15→20:27)
[2023-01-07] MEDS: VIBEGRON 75 MG TAB PO SCH (08:15)
[2023-01-07] MEDS: PANTOprazole 40 MG TAB PO SCH ×2 (08:15→20:27)
[2023-01-07] MEDS: TAMSULOSIN HCL 0.4 MG CAP PO SCH (08:15)
[2023-01-07] MEDS ORDERED: haloperidoL 0.5 MG TAB PO PRN (21:02)
--- NOTE | 2023-01-07 21:03 | Hospitalist Progress Note ---
Date of Service January 07, 2023 Assessment & Plan (1) Acute metabolic encephalopathy: Plan: 2nd hypoglycemia, possible UTI, etc. resolved. back to baseline. no further hypoglycemia. on abx for possible UTI. at risk of hospital delirium due to dementia- haldol PO prn HS. (2) Unresponsive episode: Plan: 2nd to brewing infection +/- volume depletion + hypoglycemia. Resolved. No recurrent events. (3) UTI (urinary tract infection): Plan: Urine cx with possible growth. In light of recent surgery & sadler cont IV ertapenem until urine cx is final. (4) Atrial fibrillation: Plan: rates controlled. cont metoprolol. cont eliquis renally dosed. (5) Rib pain on left side: Plan: 2nd fall rib series and CTA chest w/o acute rib fractures old fractures seen (6) Dementia: (7) Hypothyroidism: Plan: TSH on admission= 2.4 Continue levothyroxine (8) Penile cancer: Plan: s/p surgery at [facility] in December Had sadler post-op and at home Went back to Urology clinic and had sadler removed; passed voiding trial Sutures intact on physical exam Voiding w/o LUTS (9) Acute hypotension: Plan: mildly low BPs today if this persists or he is symptomatic then would have to cut back his metoprolol follow for now (10) Anemia of chronic disease: Plan: 2nd to CKD stage 4 check Fe studies, B12, folate am repeat cbc am (11) Chronic renal insufficiency, stage IV (severe): Plan: baseline CrCl 20s BMP am for stability (12) BPH w urinary obs/LUTS: Plan: cont flomax recently passing voiding trial after d/c of his sadler from his penis surgery at [place] (13) Diarrhea: Plan: fluctuating in light of Rx for UTI at [place] will check a c diff toxin Plan appreciate PT eval updated watch overnight Admission and Anticipated Discharge Date Admission Date: January 06, 2023 Subjective patient resting in bed comfortably he feels better today wants to go home ate pretty good today denies pain in any location at bedside during the visit states he has had fluctuating stools for several weeks - formed at times, and at other times it is loose/watery no blood pt's reports they have a telehealth (phone) visit with [place] [facility] Review of Systems Review of Systems: gen - no fevers or chills; ate well today cv - no cp, no orthopnea pulm - no dyspnea GI - no abd pain or vomiting - no dysuria Physical Exam Physical Exam: gen - NAD, nontoxic, pleasant, mild confusion noted mouth - MMM neck - no JVD heart - irregularly irregular, s1 s2, no murmur lungs - CTA b/l, mildly decreased BS bases abd - soft NT ND BS+ - portions of penis have been removed; numerous sutures intact on penis and mons region; no evidence of cellulitis ext - no edema, pulses 2+ b/l psych - mild confusion but pleasant Results & Data Results & Data Vital Signs (Past 12 Hours) Vital Signs Temp Pulse Pulse Resp BP Pulse Ox O2 Del Method 01/07/23 19:26 36.4 C L 86 18 118/71 97 Room Air 01/07/23 15:33 98 H 01/07/23 11:24 36.4 C L 79 20 96/62 L 96 Room Air Laboratory Results Laboratory Results - last 48 hr 01/06/23 01/06/23 01/06/23 15:26 15:26 15:26 WBC 5.95 RBC 3.12 L Hgb 9.4 L Hct 30.7 L MCV 98.4 MCH 30.1 MCHC 30.6 L RDW Std Deviation 54.3 H RDW Coeff of Yinka 15.0 H Plt Count 239 MPV 10.1 Immature Gran % (Auto) 0.0 Neut % (Auto) 58.6 Lymph % (Auto) 22.7 Washburn % (Auto) 13.1 Eos % (Auto) 4.9 Baso % (Auto) 0.7 Neut # (Auto) 3.49 Lymph # (Auto) 1.35 [place] # (Auto) 0.78 H Eos # (Auto) 0.29 Baso # (Auto) 0.04 Immature Gran # (Auto) 0.00 L D-Dimer Cancelled Sodium 139 Potassium 4.7 Chloride 116 H Carbon Dioxide 20 L Anion Gap 3 BUN 26 H Creatinine 2.12 H Est Cr Clr Drug Dosing 29.0 Est GFR ( Amer) 31.7 Est GFR (Non-Af Amer) 27.4 BUN/Creatinine Ratio 12.3 Glucose 63 L POC Glucose Lactate Calcium 7.8 L Magnesium 1.9 Total Bilirubin 0.3 AST 15 ALT 12 Alkaline Phosphatase 99 Troponin I High Sens 5.1 Total Protein 5.9 L Albumin 2.7 L Globulin 3.2 Albumin/Globulin Ratio 0.8 L TSH Urine Color Urine Appearance Urine pH Ur Specific Grayson Urine Protein Urine Glucose (UA) Urine Ketones Urine Blood Urine Nitrite Urine Bilirubin Urine Urobilinogen Ur Leukocyte Esterase Urine WBC (Auto) Urine RBC (Auto) U Hyaline Cast (Auto) U Epithel Cells (Auto) Urine Bacteria (Auto) 01/06/23 01/06/23 01/06/23 15:26 15:26 15:42 WBC RBC Hgb Hct MCV MCH MCHC RDW Std Deviation RDW Coeff of Yinka Plt Count MPV Immature Gran % (Auto) Neut % (Auto) Lymph % (Auto) [place] % (Auto) Eos % (Auto) Baso % (Auto) Neut # (Auto) Lymph # (Auto) [place] # (Auto) Eos # (Auto) Baso # (Auto) Immature Gran # (Auto) D-Dimer Sodium Potassium Chloride Carbon Dioxide Anion Gap BUN Creatinine Est Cr Clr Drug Dosing Est GFR ( Amer) Est GFR (Non-Af Amer) BUN/Creatinine Ratio Glucose POC Glucose 76 Lactate 1.2 Calcium Magnesium Total Bilirubin AST ALT Alkaline Phosphatase Troponin I High Sens Total Protein Albumin Globulin Albumin/Globulin Ratio TSH 2.415 Urine Color Urine Appearance Urine pH Ur Specific Grayson Urine Protein Urine Glucose (UA) Urine Ketones Urine Blood Urine Nitrite Urine Bilirubin Urine Urobilinogen Ur Leukocyte Esterase Urine WBC (Auto) Urine RBC (Auto) U Hyaline Cast (Auto) U Epithel Cells (Auto) Urine Bacteria (Auto) 01/06/23 01/06/23 01/06/23 15:50 16:05 18:26 WBC RBC Hgb Hct MCV MCH MCHC RDW Std Deviation RDW Coeff of Yinka Plt Count MPV Immature Gran % (Auto) Neut % (Auto) Lymph % (Auto) [place] % (Auto) Eos % (Auto) Baso % (Auto) Neut # (Auto) Lymph # (Auto) [place] # (Auto) Eos # (Auto) Baso # (Auto) Immature Gran # (Auto) D-Dimer 840 H* Sodium Potassium Chloride Carbon Dioxide Anion Gap BUN Creatinine Est Cr Clr Drug Dosing Est GFR ( Amer) Est GFR (Non-Af Amer) BUN/Creatinine Ratio Glucose POC Glucose Lactate Calcium Magnesium Total Bilirubin AST ALT Alkaline Phosphatase Troponin I High Sens 6.3 Total Protein Albumin Globulin Albumin/Globulin Ratio TSH Urine Color Dark Yellow Urine Appearance Clear Urine pH 5.5 Ur Specific Grayson 1.016 Urine Protein Trace H Urine Glucose (UA) Negative Urine Ketones Negative Urine Blood Negative Urine Nitrite Negative Urine Bilirubin Negative Urine Urobilinogen Negative Ur Leukocyte Esterase 2+ H Urine WBC (Auto) >30 H Urine RBC (Auto) 0-4 U Hyaline Cast (Auto) 1-5 U Epithel Cells (Auto) 20-30 H Urine Bacteria (Auto) Negative 01/06/23 01/06/23 01/07/23 21:46 23:10 07:57 WBC RBC Hgb Hct MCV MCH MCHC RDW Std Deviation RDW Coeff of Yinka Plt Count MPV Immature Gran % (Auto) Neut % (Auto) Lymph % (Auto) [place] % (Auto) Eos % (Auto) Baso % (Auto) Neut # (Auto) Lymph # (Auto) [place] # (Auto) Eos # (Auto) Baso # (Auto) Immature Gran # (Auto) D-Dimer Sodium Potassium Chloride Carbon Dioxide Anion Gap BUN Creatinine Est Cr Clr Drug Dosing Est GFR ( Amer) Est GFR (Non-Af Amer) BUN/Creatinine Ratio Glucose POC Glucose 99 100 H 111 H Lactate Calcium Magnesium Total Bilirubin AST ALT Alkaline Phosphatase Troponin I High Sens Total Protein Albumin Globulin Albumin/Globulin Ratio TSH Urine Color Urine Appearance Urine pH Ur Specific Grayson Urine Protein Urine Glucose (UA) Urine Ketones Urine Blood Urine Nitrite Urine Bilirubin Urine Urobilinogen Ur Leukocyte Esterase Urine WBC (Auto) Urine RBC (Auto) U Hyaline Cast (Auto) U Epithel Cells (Auto) Urine Bacteria (Auto) 01/07/23 01/07/23 11:56 16:57 WBC RBC Hgb Hct MCV MCH MCHC RDW Std Deviation RDW Coeff of Yinka Plt Count MPV Immature Gran % (Auto) Neut % (Auto) Lymph % (Auto) [place] % (Auto) Eos % (Auto) Baso % (Auto) Neut # (Auto) Lymph # (Auto) [place] # (Auto) Eos # (Auto) Baso # (Auto) Immature Gran # (Auto) D-Dimer Sodium Potassium Chloride Carbon Dioxide Anion Gap BUN Creatinine Est Cr Clr Drug Dosing Est GFR ( Amer) Est GFR (Non-Af Amer) BUN/Creatinine Ratio Glucose POC Glucose 109 H 135 H Lactate Calcium Magnesium Total Bilirubin AST ALT Alkaline Phosphatase Troponin I High Sens Total Protein Albumin Globulin Albumin/Globulin Ratio TSH Urine Color Urine Appearance Urine pH Ur Specific Grayson Urine Protein Urine Glucose (UA) Urine Ketones Urine Blood Urine Nitrite Urine Bilirubin Urine Urobilinogen Ur Leukocyte Esterase Urine WBC (Auto) Urine RBC (Auto) U Hyaline Cast (Auto) U Epithel Cells (Auto) Urine Bacteria (Auto) Diagnostic Findings urine cx pending but pinpoint growth noted PG Care Time/CCT Total # of Minutes Spent Total Time Spent with Patient: Total time spent is greater than 50% in coordination of care (as documented) at patient's floor/unit and/or counseling patient: Coding Level of Care Code 60063 SUB INP/OBS CARE 3/50MIN Diagnoses Acute metabolic encephalopathy G93.41 Unresponsive episode R40.4 UTI (urinary tract infection) N39.0 Atrial fibrillation I48.91 Atrial fibrillation type: unspecified Rib pain on left side R07.81 Dementia F03.90 Dementia type: unspecified type Dementia behavioral disturbance: without behavioral disturbance Hypothyroidism E03.9 Penile cancer C60.9 Acute hypotension I95.9 Anemia of chronic disease D63.8 Chronic renal insufficiency, stage IV (severe) N18.4 BPH w urinary obs/LUTS Diarrhea R19.7 Diarrhea type: unspecified type (4) Atrial fibrillation Atrial fibrillation type: unspecified Qualified Code(s): I48.91 - Unspecified atrial fibrillation (6) Dementia Dementia type: unspecified type Dementia behavioral disturbance: without behavioral disturbance Qualified Code(s): F03.90 - Unspecified dementia without behavioral disturbance (13) Diarrhea Diarrhea type: unspecified type Qualified Code(s): R19.7 - Diarrhea, unspecified
[2023-01-07] MEDS: ERTAPENEM SODIUM 500 MG in SYRINGE 0 ML IV SCH (21:22)
--- NOTE | 2023-01-08 00:44 | Billing Data ---
Date of Service January 08, 2023 Coding Level of Care Code 97996 INT INP/OBS CARE
[2023-01-08] MEDS: LEVOTHYROXINE SODIUM 25 MCG TABLET PO SCH (06:28)
[2023-01-08 06:47] LABS: Hematocrit (blood only) 29.6 % (42.0-52.0); Hemoglobin 9.3 g/dl (14.0-18.0); Mean Corpuscular Hemoglobin 29.8 pg (25.0-34.0); Mean Corpuscular Hgb Conc 31.4 g/dL (32.0-36.0); Mean Corpuscular Volume 94.9 fL (80.0-100.0); Mean Platelet Volume 10.2 fL (9.4-12.4); Platelet Count 217 K/uL (130-400); RDW Standard Deviation 52.2 fL (36.4-46.3); Red Blood Count 3.12 M/uL (4.70-6.10); White Blood Count 4.29 K/ul (4.8-10.8)
[2023-01-08 07:19] LABS: BUN Creatinine Ratio 9.6 (10-20); Calcium 8.1 mg/dl (8.6-10.3); Creatinine Clr Calc Pharmacy 29.2 ml/min; Est GFR (African American) 30.6 ml/min; Est GFR (Non-African American) 26.4 ml/min
[2023-01-08 07:29] LABS: Folate (Folic Acid),Ser orPlas > 22.30 ng/ml (>5.38)
[2023-01-08 07:30] LABS: Vitamin B12 406 pg/ml (180-914)
[2023-01-08 07:39] LABS: Ferritin 13.8 ng/ml (8-388)
[2023-01-08] MEDS: APIXABAN 2.5 MG TAB PO SCH ×2 (08:08→20:52)
[2023-01-08] MEDS: MULTIVITAMIN TAB PO SCH (08:09)
[2023-01-08] MEDS: TAMSULOSIN HCL 0.4 MG CAP PO SCH (08:09)
[2023-01-08] MEDS: CHOLECALCIFEROL 1,000 UNITS 25 MCG TAB PO SCH (08:09)
[2023-01-08] MEDS: CALCIUM 600MG + VIT D 400 IU TAB PO SCH (08:09)
[2023-01-08] MEDS: VIBEGRON 75 MG TAB PO SCH (08:09)
[2023-01-08] MEDS: PANTOprazole 40 MG TAB PO SCH ×2 (08:09→20:53)
[2023-01-08] MEDS: GABAPENTIN 100 MG CAP PO SCH ×2 (08:09→20:53)
[2023-01-08] MEDS: METOPROLOL TARTRATE 50 MG TAB PO SCH ×2 (08:09→20:54)
[2023-01-08] MEDS: CLOPIDOGREL BISULFATE 75 MG TAB PO SCH (08:09)
[2023-01-08] MEDS ORDERED: IRON SUCROSE 300 MG in SODIUM CHLORIDE 0.9% 250 ML IV ONE (10:30)
[2023-01-08] MEDS: CALCITRIOL 0.25 MCG CAPSULE PO SCH (10:46)
[2023-01-08] MEDS: LIDOCAINE 5% 1 PATCH TD SCH (14:11)
--- NOTE | 2023-01-08 19:47 | Electrocardiogram Report ---
Test Reason : Blood Pressure : / mmHG Vent. Rate : 072 BPM Atrial Rate : 000 BPM P-R Int : 000 ms QRS Dur : 078 ms QT Int : 384 ms P-R-T Axes : 000 -16 008 degrees QTc Int : 420 ms Atrial fibrillation Inferior infarct , age undetermined Abnormal ECG When compared with ECG of 22-DEC-2022 12:14, Inferior infarct is now Present Confirmed by Hardeep Hernandez ([id number]) on 01/08/2023 7:46:51 PM Referred By: Confirmed By:Hardeep Hernandez
[2023-01-08] MEDS: ACETAMINOPHEN 325 MG TAB PO PRN (20:50)
[2023-01-08] MEDS: AMOXICILLIN/CLAVULANATE 250 MG TAB PO SCH (20:54)
--- NOTE | 2023-01-08 21:05 | Hospitalist Progress Note ---
Date of Service January 08, 2023 Assessment & Plan (1) Acute metabolic encephalopathy: Plan: 2nd hypoglycemia, UTI, etc. resolved. back to baseline. no further hypoglycemia. on abx for UTI. hospital delirium due to dementia- haldol PO HS prn. (2) Unresponsive episode: Plan: 2nd to brewing infection +/- volume depletion + hypoglycemia. Resolved. No recurrent events. Walking well. Passed PT evaluation. (3) UTI (urinary tract infection): Plan: Urine cx with corynebacterium. Typically contamination. However, in light of recent surgery & sadler along with CT findings showing cystitis, will continue to Rx. Stop ertapenem. Change to PO augmentin renally-dosed. (4) Atrial fibrillation: Plan: rates controlled. cont metoprolol. cont eliquis renally dosed. did dormitory counselor pt & his that given his frequent falls the Eliquis is becoming more risky. (5) Rib pain on left side: Plan: 2nd fall rib series and CTA chest w/o acute rib fractures CT a/p about 2 weeks ago just after the fall was negative for acute findings given the exquisite tenderness he is having will repeat a CT a/p to rule out pathology, occult injury, etc (6) Dementia: (7) Hypothyroidism: Plan: TSH on admission= 2.4 Continue levothyroxine (8) Penile cancer: Plan: s/p surgery at [facility] in December Had sadler post-op and at home Went back to Urology clinic and had sadler removed; passed voiding trial Sutures intact on physical exam Voiding w/o LUTS (9) Acute hypotension: Plan: resolved (10) Anemia of chronic disease: Plan: 2nd to CKD stage 4 B12/folate wnl Fe studies c/w severe Fe deficiency Unfortunately he may have had a reaction to IV venofer at d/c will recommend ferrous sulfate (11) Chronic renal insufficiency, stage IV (severe): Plan: baseline CrCl 20s Cr today stable BMP am (12) BPH w urinary obs/LUTS: Plan: cont flomax recently passing voiding trial after d/c of his sadler from his penis surgery at [place] (13) Diarrhea: Plan: resolved stools are now formed Plan appreciate PT gianna passed the PT gianna updated watch overnight due to the severe left flank pain await repeat CT Admission and Anticipated Discharge Date Admission Date: January 06, 2023 Subjective patient's stools have normalized last 2-3 stools have been formed brown, no blood he continues with left flank/left lower costal/left low back pain had a fall 2-3 weeks ago that led to this pain hurts more with activity he does think the pain is better than when it first started denies any dyspnea states he has frequent falls at home he also reports chronic lumbar back pain has radicular pain down the left leg was to have a corticosteroid injection at one point by [facility] for the lumbar back eating well voiding w/o LUTS wants to go home was at bedside during the visit of note - within the first 1-2 minutes of the pt's venofer infusion he felt a sensation of warm, discomfort in the arm where the IV venofer was infusing, etc thus, drip shut off no rash no dyspnea or breathing problems Review of Systems Review of Systems: gen - no fevers; no chills; eating well cv - no orthopnea, no chest pain pulm - no dyspnea or HORN GI - no abd pain or N/V Physical Exam Physical Exam: gen - NAD; was in bathroom when I first arrived; he walked independently from the bathroom back to his bed; no dyspnea noted; he was fairly comfortable with the walk mouth - MMM neck - no JVD heart - irregularly irregular, s1 s2, no murmur lungs - CTA b/l abd - soft NT ND BS+ ext - no edema, pulses 2+ b/l musculo - VERY/exquisite tenderness to palpation over L flank, left low back, and left costal margin neuro - strength b/l legs 5/5 hip flexion, ankle dorsiflexion/plantarflexion 5/5 Results & Data Results & Data Vital Signs (Past 12 Hours) Vital Signs Temp Pulse Pulse Resp BP BP Pulse Ox 01/08/23 19:51 36.5 C 83 18 123/88 96 01/08/23 18:20 99 H 01/08/23 15:49 36.4 C L 73 19 125/77 94 01/08/23 15:20 87 01/08/23 11:56 36.4 C L 77 20 108/68 96 01/08/23 10:57 36.5 C 81 20 96/62 L 95 01/08/23 10:42 36.6 C 68 20 92/63 L 95 O2 Del Method 01/08/23 19:51 Room Air 01/08/23 18:20 01/08/23 15:49 Room Air 01/08/23 15:20 01/08/23 11:56 Room Air 01/08/23 10:57 Room Air 01/08/23 10:42 Room Air Laboratory Results Laboratory Results - last 24 hr 01/08/23 01/08/23 01/08/23 06:22 06:22 06:22 WBC 4.29 L RBC 3.12 L Hgb 9.3 L Hct 29.6 L MCV 94.9 MCH 29.8 MCHC 31.4 L RDW Std Deviation 52.2 H RDW Coeff of Yinka 15.0 H Plt Count 217 MPV 10.2 Sodium 138 Potassium 5.0 Chloride 114 H Carbon Dioxide 20 L Anion Gap 4 BUN 21 Creatinine 2.18 H Est Cr Clr Drug Dosing 29.2 Est GFR ( Amer) 30.6 Est GFR (Non-Af Amer) 26.4 BUN/Creatinine Ratio 9.6 L Glucose 97 Calcium 8.1 L Iron 41 TIBC 232 L Unsaturated IBC 191 Transferrin % Sat 18 L Ferritin 13.8 Vitamin B12 406 Folate > 22.30 PG Care Time/CCT Total # of Minutes Spent Total Time Spent with Patient: Total time spent is greater than 50% in coordination of care (as documented) at patient's floor/unit and/or counseling patient: Coding Level of Care Code 54542 SUB INP/OBS CARE 3/50MIN Diagnoses Acute metabolic encephalopathy G93.41 Unresponsive episode R40.4 UTI (urinary tract infection) N39.0 Atrial fibrillation I48.91 Atrial fibrillation type: unspecified Rib pain on left side R07.81 Dementia F03.90 Dementia behavioral disturbance: without behavioral disturbance Dementia type: unspecified type Hypothyroidism E03.9 Penile cancer C60.9 Acute hypotension I95.9 Anemia of chronic disease D63.8 Chronic renal insufficiency, stage IV (severe) N18.4 BPH w urinary obs/LUTS Diarrhea R19.7 Diarrhea type: unspecified type (4) Atrial fibrillation Atrial fibrillation type: unspecified Qualified Code(s): I48.91 - Unspecified atrial fibrillation (6) Dementia Dementia behavioral disturbance: without behavioral disturbance Dementia type: unspecified type Qualified Code(s): F03.90 - Unspecified dementia without behavioral disturbance (13) Diarrhea Diarrhea type: unspecified type Qualified Code(s): R19.7 - Diarrhea, unspecified
--- NOTE | 2023-01-08 23:08 | CT Scan Report ---
Exam(s): CT ABDOMEN + PELVIS Without Contrast EXAM: CT Abdomen and Pelvis Without Intravenous Contrast CLINICAL HISTORY: Reason for exam: persistent left flank pain, eval ureteral stone. TECHNIQUE: Axial computed tomography images of the abdomen and pelvis without intravenous contrast. CTDI is 24.72 mGy and DLP is 1342.14 mGy-cm. Automated exposure control was utilized for the study. A dose lowering technique was utilized adhering to the principles of ALARA. COMPARISON: CT abdomen pelvis 12/22/22. FINDINGS: Lung bases: Clear. Mild cardiomegaly and extensive coronary artery atherosclerosis, stable. Small hiatal hernia is stable. Liver: Unremarkable. Gallbladder and bile ducts: Cholecystectomy, stable. No ductal dilation. Pancreas: No ductal dilation. Spleen: Unremarkable. Adrenals: Unremarkable. Kidneys and ureters: No stone, hydroureter or hydronephrosis. Stomach and bowel: Status post gastric bypass surgery. Moderate fluid levels in mildly prominent colon, with fairly collapsed small bowel are nonspecific, probable gastroenteritis and/or enteritis. No obstruction. Diverticulosis without acute diverticulitis. Appendix: No secondary signs of acute appendicitis. Intraperitoneal space: No free air or fluid. Bones/joints: No acute fracture. Soft tissues: Unremarkable. Vasculature: Ectasia and aortoiliac atherosclerosis. No aneurysm. Lymph nodes: No enlarged lymph nodes. Bladder: Hazy rosen, nonspecific, possible cystitis. Reproductive: Moderate to severe, nonspecific prostatomegaly. IMPRESSION: 1. Suspect enteritis/gastroenteritis or ileus. 2. Extensive coronary artery and aortoiliac atherosclerosis, stable. 3. Status post gastric bypass surgery, small hiatal hernia, prostatomegaly and cholecystectomy are stable. 4. No renal stone or hydroureteronephrosis. Electronically signed by: Aurora Mcclellan M.D. 01/08/23 23:08 PM
[2023-01-09] MEDS: LEVOTHYROXINE SODIUM 25 MCG TABLET PO SCH (05:45)
[2023-01-09] MEDS ORDERED: HYDROCODONE/ACETAMOPHEN 5/325MG TAB PO PRN (07:16)
[2023-01-09 07:37] LABS: BUN Creatinine Ratio 9.1 (10-20); Calcium 8.3 mg/dl (8.6-10.3); Creatinine Clr Calc Pharmacy 26.3 ml/min; Est GFR (African American) 27.2 ml/min; Est GFR (Non-African American) 23.4 ml/min; Potassium 4.8 mmol/L (3.5-5.1)
[2023-01-09] MEDS: AMOXICILLIN/CLAVULANATE 250 MG TAB PO SCH ×2 (07:47→16:12)
[2023-01-09] MEDS: LIDOCAINE 5% 1 PATCH TD SCH (08:53)
[2023-01-09] MEDS: ACETAMINOPHEN 325 MG TAB PO SCH ×2 (08:55→13:43)
[2023-01-09] MEDS: CALCITRIOL 0.25 MCG CAPSULE PO SCH (08:56)
[2023-01-09] MEDS: METOPROLOL TARTRATE 50 MG TAB PO SCH (08:56)
[2023-01-09] MEDS: MULTIVITAMIN TAB PO SCH (08:56)
[2023-01-09] MEDS: VIBEGRON 75 MG TAB PO SCH (08:56)
[2023-01-09] MEDS: CALCIUM 600MG + VIT D 400 IU TAB PO SCH (08:56)
[2023-01-09] MEDS: PANTOprazole 40 MG TAB PO SCH (08:56)
[2023-01-09] MEDS: CHOLECALCIFEROL 1,000 UNITS 25 MCG TAB PO SCH (08:56)
[2023-01-09] MEDS: CLOPIDOGREL BISULFATE 75 MG TAB PO SCH (08:56)
[2023-01-09] MEDS: TAMSULOSIN HCL 0.4 MG CAP PO SCH (08:56)
[2023-01-09] MEDS: APIXABAN 2.5 MG TAB PO SCH (08:56)
[2023-01-09] MEDS: GABAPENTIN 100 MG CAP PO SCH (08:56)
[2023-01-09] MEDS ORDERED: SODIUM BICARBONATE 650 MG TAB PO SCH (09:00)
--- NOTE | 2023-01-09 18:15 | Discharge Summary ---
Date of Service January 09, 2023 Admission HPI Per Admitting Provider 87 year old male with a past medical history of dementia, CKD, Afib on Eliquis, DM2, penile SC CIS s/p partial penectomy presenting with multiple syncopal episodes. Spoke with on phone and she provided some of history. He was attending a doctors appointment with his this afternoon, felt lightheaded and was unresponsive for a few seconds, she shook him and he woke up. Had a second episode similar to this, was evaluated by staff at doctors office and EMS was called. Has had similar episodes in the past with hypotension. Has had diarrhea intermittently for the past couple of weeks. Denies blood in stool, abdominal pain. states he ate very little this morning prior to going to appointment because he was worried he was going to have diarrhea. 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 had Sadler catheter removed 12/25. Urinary incontinence at baseline, denies dysuria. Denies chest pain, dyspnea. He does state that he had a fall a few days ago and is complaining of left sided rib pain. states that prior to her leaving he was back to his baseline. ED Course Significant For: Hbg= 9.4 (around baseline), D-dimer= 840, Creatine= 2.12 (at baseline), glucose= 63. lactate negative. TSH wnl. UA + LE, WBC. CXR/Chest CTA/Head CT negative. Discharge Exam gen - NAD; was in bathroom when I first arrived; he walked independently from the bathroom back to his bed; no dyspnea noted; he was fairly comfortable with the walk mouth - MMM neck - no JVD heart - irregularly irregular, s1 s2, no murmur lungs - CTA b/l abd - soft NT ND BS+ ext - no edema, pulses 2+ b/l musculo - VERY/exquisite tenderness to palpation over L flank, left low back, and left costal margin neuro - strength b/l legs 5/5 hip flexion, ankle dorsiflexion/plantarflexion 5/5 Discharge Data Allergies Allergy/AdvReac Type Severity Reaction Status Date / Time iron [From Venofer] AdvReac Mild Verified 01/09/23 08:05 Consultations 01/06/23 20:02 ED Decision to Admit Stat Ordered Studies 01/06/23 15:17 CT head/brain wo con Stat 01/06/23 17:27 CT for pulmonary embolism PE [CT angio chest PE protocol] Stat 01/08/23 15:33 CT Abd and Pelvis [CT abd pelvis wo con] Routine Hospital Course (1) Acute metabolic encephalopathy: 2nd hypoglycemia, UTI, etc. resolved. back to baseline. no further hypoglycemia. on abx for UTI. hospital delirium due to dementia- haldol PO HS prn. (2) Unresponsive episode: 2nd to brewing infection +/- volume depletion + hypoglycemia. Resolved. No recurrent events. Walking well. Passed PT evaluation. (3) UTI (urinary tract infection): Urine cx with corynebacterium. Typically contamination. However, in light of recent surgery & sadler along with CT findings showing cystitis, will continue to Rx. Stop ertapenem. Change to PO augmentin renally-dosed. (4) Atrial fibrillation: rates controlled. cont metoprolol. cont eliquis renally dosed. did counseling program leader pt & his that given his frequent falls the Eliquis is becoming more risky. (5) Rib pain on left side: 2nd fall rib series and CTA chest w/o acute rib fractures CT a/p about 2 weeks ago just after the fall was negative for acute findings given the exquisite tenderness he is having will repeat a CT a/p to rule out pathology, occult injury, etc (6) Dementia: (7) Hypothyroidism: TSH on admission= 2.4 Continue levothyroxine (8) Penile cancer: s/p surgery at [facility] in December Had sadler post-op and at home Went back to Urology clinic and had sadler removed; passed voiding trial Sutures intact on physical exam Voiding w/o LUTS (9) Acute hypotension: resolved (10) Anemia of chronic disease: 2nd to CKD stage 4 B12/folate wnl Fe studies c/w severe Fe deficiency Unfortunately he may have had a reaction to IV venofer at d/c will recommend ferrous sulfate (11) Chronic renal insufficiency, stage IV (severe): baseline CrCl 20s Cr today stable BMP am (12) BPH w urinary obs/LUTS: cont flomax recently passing voiding trial after d/c of his sadler from his penis surgery at [place] (13) Diarrhea: resolved stools are now formed Plan appreciate PT evkaren passed the PT eval updated watch overnight due to the severe left flank pain await repeat CT Home Health Attestation I certify that this patient is under my care and that I, or a physicians assistant men's lacrosse coach working with me, had a face to-face encounter that meets the home health [id number] encounter requirements with this patient. The encounter with the patient was in whole, or in part, for the following medical condition, which is the primary reason for home health care (list medical condition): I certify that, based on my findings, the following services are medically necessary home health services: My clinical findings support the need for the above services because: Further, I certify that my clinical findings support that this patient is homebound (i.e. absences from home require considerable and taxing effort and are for medical reasons or taoism services or infrequently or of short duration when for other reasons) because: Certification for Home Health Services: Based on the above findings, I certify that this patient is confined to the home and needs intermittent custodial care, physical therapy and/or speech therapy or continues to need occupational therapy. The patient is under my care, and I have initiated the establishment of the plan of care. This patient will be followed by a physician who will periodically review the plan of care. Discharge Plan Discharge Items Patient Disposition: Home - Home Health Services Reason For Visit: UNRESPONSIVE EPISODE Discharge Diagnosis: 1. unresponsive episode - due to low blood sugar and urinary tract infection 2. low blood sugar - resolved, no recurrent low sugars 3. urinary tract infection 4. diarrhea - testing negative for c.diff 5. recent penile surgery 6. frequent falls with recent injury to left chest and left flank/back 7. lumbar spine degenerative disc disease Activity: As commented below Activity Comment: gradually increase activities over the next few days as tolerated Non-emergency contact: Primary Care Provider Call non-emergency contact if: you have any medication questions, your symptoms worsen, you have a fever, your wound has increased redness, your wound has increased drainage and your wound pain has increased Follow-up/Referrals: Pablo Hernandez DO [Primary Care Provider] - 01/20/23 1:00 pm (5-7 days ) Diet: Low Potassium (2gm) Addtl Attending Provider Instructions: Mr Proper, You were hospitalized due to brief episodes of being unresponsive as well as intermittent diarrhea over 2-3 weeks. At time of arrival to [facility] your blood sugar was low. Your urine also looked suspicious for urinary tract infection. We corrected your blood sugar, gave you IV fluids, and started you on antibiotics. For the rest of your stay your blood sugars stayed in normal range. You felt better with the fluids and antibiotics. You also complained of your left side hurting due to a recent fall. A repeat CT scan of the abdomen and pelvis did not show any internal injuries, internal bleeding, kidney stones that were causing trouble, or broken bones. A CT of the chest did not show any pneumonia or broken ribs or blood clots. A stool sample was sent because of your diarrhea. This was negative for a bacterium called "c.diff." If your diarrhea persists, however, we would need to run some additional tests on the stool. Dr Hernandez could do that for you. Recommendations - 1. amoxicillin-clavulanate tablet - 1 tablet twice daily x 4 days for your urinary tract infection. Start this tomorrow AM, 01/10/23. 2. take rohp-rjt-sxfzhou iron supplements (ferrous sulfate) 325mg twice daily for at least 3 months. Iron supplements cause constipation and will make your stools look dark. We are starting you on this because you are iron deficient. 3. if you have severe pain in your left side you can take a pain pill for it. It is hydrocodone-acetaminophen. Take 1/2 tablet every 6 hours as needed for pain. This is a narcotic pain killer medication. It can cause constipation. It can also make you sleepy or drowsy. It can also cause confusion. This medication contains tylenol in it so do not take extra ialj-gwf-khmgxiz tylenol if you decide to take the pain killer medication. 4. take a probiotic (you can purchase this [id number]) once daily for about 10 days. This may help your diarrhea. 5. follow-up - see your family doctor this week. Return to [facility] if - * you have fever over 100 degrees * you have worsening diarrhea * you have difficulty passing your urine * you have abdominal pains * you have uncontrolled pain in your left side/left back * any other concerns It was our pleasure to care for you! -Dr Martin Pending Studies at Discharge: No Stand-Alone Forms: [facility] [employer], Smoking Cessation Medications and DC Order Prescriptions: New hydrocodone-acetaminophen 5-325 mg Tablet 0.5 tab PO Q6H PRN (Reason: pain) Qty: 7 0RF amoxicillin-pot clavulanate 250-125 mg Tablet 1 tab PO BIDM 4 Days Qty: 8 0RF Rx Instructions: first dose AM of 01/10/23. ferrous sulfate 325 mg (65 mg iron) tablet,delayed release (DR/EC) 325 mg PO BID Qty: 60 1RF Rx Instructions: purchase [id number] Continued mirabegron 25 mg tablet extended release 24 hr 25 mg PO DAILY Qty: 30 3RF calcitriol 0.25 mcg capsule 0.25 mcg PO DAILY Qty: 90 3RF levothyroxine [Synthroid] 25 mcg tablet 25 mcg PO DAILYBB 90 Days Qty: 90 1RF omeprazole 40 mg capsule,delayed release(DR/EC) 40 mg PO BID 90 Days Qty: 180 1RF metoprolol tartrate 50 mg tablet 50 mg PO BID Qty: 180 1RF magnesium oxide 400 mg (241.3 mg magnesium) tablet 400 mg PO BID Qty: 180 3RF sodium bicarbonate 650 mg tablet 650 mg PO BID Qty: 180 3RF clopidogrel [Plavix] 75 mg tablet 75 mg PO DAILY Qty: 90 1RF Eliquis 2.5 mg tablet 2.5 mg PO BID Qty: 180 3RF gabapentin 100 mg capsule 100 mg PO BID Qty: 180 3RF tamsulosin 0.4 mg capsule 0.4 mg PO DAILY Qty: 90 3RF docusate sodium 100 mg tablet 100 mg PO BID Qty: 60 0RF acetaminophen [Tylenol Extra Strength] 500 mg tablet 500 mg PO Q8H PRN (Reason: Pain) calcium carbonate-vitamin D3 [Calcium 500 + D] 500 mg(1,250mg) -200 unit tablet 1 tab PO QAM vitamin B complex Tablet 1 tab PO QAM Probiotic 10 billion cell Capsule 10,000 mmu cells PO QDD Rx Instructions: TAKE WITH EVENING MEAL cholecalciferol (vitamin D3) 25 mcg (1,000 unit) Tablet 1,000 mcg PO DAILY multivitamin Tablet 1 tab PO DAILY Discharge Orders: Discharge Order (Routine); Ordered 01/09/23 Ordered By: Bladimir Montemayor/Other Patient Handouts: Urinary Tract Infections in Men, UTIs Understanding, Low Potassium Diet Dc Admission Data Admit Date/Time: 01/06/23 21:05 Attending Provider: Bladimir Martin Admit Provider: Adore Ivey Primary Care Provider: Pablo Hernandez Other Providers: Zak Dye Other Interventions: Discharge Summary Assessment (RN) Last Done: 01/09/23 16:36 Coding Diagnoses Acute metabolic encephalopathy G93.41 Unresponsive episode R40.4 UTI (urinary tract infection) N39.0 Atrial fibrillation I48.91 Atrial fibrillation type: unspecified Rib pain on left side R07.81 Dementia F03.90 Dementia type: unspecified type Dementia behavioral disturbance: without behavioral disturbance Hypothyroidism E03.9 Penile cancer C60.9 Acute hypotension I95.9 Anemia of chronic disease D63.8 Chronic renal insufficiency, stage IV (severe) N18.4 BPH w urinary obs/LUTS Diarrhea R19.7 Diarrhea type: unspecified type
--- NOTE | 2023-01-11 08:09 | Communication Note ---
Date of Service: January 11, 2023 Patient's called and I spoke to the patient on 01/11/2023 he still having liquid bowel movements he is weak tired and confused he requested direct admi ssion to the hospital I informed him that he likely would benefit from having some blood work obtained. He went to drop off a stool sample in a jar that he had from home I recommended he not do that as we need a sterile specimen. I encouraged family to come up to the emergency department for reevaluation.
== END 2023-01-09 18:51 | disposition home or self-care (01) | DRG 689 ==
LOC: ED 14:39 → SUATTDRO 21:05 → 2W 21:05

== ENCOUNTER 2023-04-20 16:10 | Observation (INO) ==
--- NOTE | 2023-04-20 16:18 | ED Triage Note ---
Date of Service April 20, 2023 History of Present Illness This patient was briefly evaluated while in triage. An abbreviated physical exam was performed. This patient is a 88-year-old Male who presents to the ED for evaluation of penis abnormality. Had surgery on penis December of this year at [facility]. Ongoing a few weeks ago. Progressively worse and now "bad" and painful. Patient notes tried to remove the skin abnormality to the penis today by scraping it off and using a comb without success and now worsening pain. Physical Exam GENERAL: 88 year old male. In no acute distress. HEART: Regular rate and rhythm. LUNGS: Clear to auscultation. ABDOMEN: Bowel sounds normoactive. No guarding or rigidity. No tenderness of palpation. NEURO: Alert and oriented. No deficits. MUSCULOSKELETAL: No deformities to inspection of the extremities. PSYCH: Patient is pleasant and answers all questions appropriately. : deferred pending evaluation in formal exam room Initial orders for labs and / or imaging were placed and patient was placed in the waiting area until a bed is available. Please see further documentation for the full ED course.
[2023-04-20 16:49] LABS: Basophils # (auto) 0.03 K/uL (0.00-0.20); Basophils % (auto) 0.4 %; Eosinophils # (auto) 0.18 K/uL (0.00-0.50); Eosinophils % (auto) 2.5 %; Hematocrit (blood only) 34.7 % (42.0-52.0); Hemoglobin 10.9 g/dl (14.0-18.0); Immature Granulocytes # (auto) 0.04 K/uL (0.01-0.20); Immature Granulocytes % (auto) 0.6 %; Lymphocytes # (auto) 1.63 K/uL (1.20-3.40); Lymphocytes % (auto) 22.7 %; Mean Corpuscular Hemoglobin 31.8 pg (25.0-34.0); Mean Corpuscular Hgb Conc 31.4 g/dL (32.0-36.0); Mean Corpuscular Volume 101.2 fL (80.0-100.0); Mean Platelet Volume 10.3 fL (9.4-12.4); Monocytes # (auto) 0.76 K/uL (0.11-0.59); Monocytes % (auto) 10.6 %; Neutrophils # (auto) 4.53 K/uL (1.40-6.50); Neutrophils % (auto) 63.2 %; Platelet Count 267 K/uL (130-400); RDW Coefficient of Variation 16.2 % (11.5-14.5); RDW Standard Deviation 60.1 fL (36.4-46.3); Red Blood Count 3.43 M/uL (4.70-6.10); White Blood Count 7.17 K/ul (4.8-10.8)
[2023-04-20 17:04] LABS: Appearance Urine Turbid (Clear); Bacteria Urine Automated Negative (Negative); Bilirubin Urine Negative (Negative); Blood Urine 2+ (Negative); Color Urine Yellow; Epithelial Cell Urine Auto >30 /lpf (0-5); Glucose Urine UA Negative (Negative); Ketones Urine Negative (Negative); Leukocyte Esterase Urine 3+ (Negative); Nitrite Urine Negative (Negative); Protein Urine 2+ (Negative); Specific Gravity Urine 1.015 (1.000-1.030); Urobilinogen Urine Negative (Negative); WBC Urine Automated >30 /hpf (0-5); pH Urine 5.5 (4.5-7.5)
[2023-04-20 17:06] LABS: Alanine Aminotransferase 16 U/L (7-52); Albumin Globulin Ratio 0.7 (0.9-2); Albumin Level 2.2 gm/dl (3.4-5.0); Alkaline Phosphatase 111 U/L (34-104); Anion Gap 3 (3-11); Aspartate Aminotransferase 18 U/L (13-39); BUN Creatinine Ratio 14.4 (10-20); Bilirubin,Total 0.2 mg/dl (0.2-1.0); Blood Urea Nitrogen 40 mg/dl (6-23); Calcium 7.9 mg/dl (8.6-10.3); Carbon Dioxide 22 mmol/L (21-32); Chloride 114 mmol/L (98-107); Est GFR (African American) 22.8 ml/min; Est GFR (Non-African American) 19.7 ml/min; Globulin 3.2 gm/dl (2.5-4.0); Glucose 112 mg/dl (70-99(Fasting)); Potassium 5.3 mmol/L (3.5-5.1); Sodium 139 mmol/L (136-145); Total Protein 5.4 gm/dl (6.0-8.3)
[2023-04-20] MEDS ORDERED: cefTRIAXone SODIUM 2,000 MG/50 ML BAG IV STA (17:25)
[2023-04-20] MEDS ORDERED: SODIUM CHLORIDE 0.9% 1,000 ML IV ONE (17:25)
[2023-04-20 17:30] LABS: Cast Urine Automated 0 /lpf (0-5)
--- NOTE | 2023-04-20 17:33 | Emergency Department Note ---
Impression & Plan Cellulitis, Anemia, Pain in penis, Acute UTI ED Provider Note NAME: ANABELLE WILLIAMSON AGE: 88 SEX: M : 1935 ARRIVES VIA: Walk-In INFORMANT: [Patient][] ED PROVIDER(S): [Guillermo Mata MD] CHIEF COMPLAINT: Penile pain HISTORY OF PRESENT ILLNESS: The patient is an 88-year-old male presents to the ER with penile pain and discoloration that has been ongoing for a few weeks but worsening. He has erythema and he has noticed some white discharge. The patient states that he had penile cancer diagnosed and back in this past December at [facility], he had resection of a large part of his penis. He is able to urinate on his own but does not have much warning before he has to go. He oftentimes loses his urinary continence in his depends. Patient states the pain has been ongoing and worsening. He is concerned for infection. The patient has not had fever, no cough or congestion or shortness of breath. As per the nursing staff, the patient and a syncopal spell in triage. Blood sugar was checked by the nursing staff and was adequate. PMHx/PSHx/Social Hx: See Below PHYSICAL EXAM: GENERAL: Patient is in mild distress from pain, anxious HEENT: No acute trauma, normocephalic atraumatic, mucous membranes moist, no nasal congestion. NECK: No stridor, no adenopathy, no meningismus, trachea is midline. LUNGS: Clear to auscultation bilaterally, no wheeze, no rhonchi, breath sounds equal. HEART: Without murmurs gallops or rubs, regular rate and rhythm. Heart tones are distant. ABDOMEN: Soft, nontender, no peritonitis. EXTREMITIES: No cyanosis, full range of motion of all the joints without pain or difficulty. Mild bilateral pedal edema. NEUROLOGIC: Oriented x 3, no acute motor or sensory deficits, no focal weakness. SKIN: No jaundice, no diaphoresis. Pale. Groin: The patient has a stump left where his penis has undergone resection. There is surrounding erythema to this area and the entire scrotum and groin. There is a strong smell of urine. No crepitus. DIFFERENTIAL DIAGNOSIS: Gangrene, cellulitis, yeast infection, UTI, hydronephrosis, pelvic mass, dehydration, electrolyte imbalance, among others. EMERGENCY DEPARTMENT PROCEDURES: MEDICAL DECISION MAKING: There is no leukocytosis. The patient is anemic however, this is baseline looking back at previous testing. There is a normal platelet count. Potassium slightly high at 5.3. Creatinine is elevated at 2.77. The patient does have a history of renal insufficiency/chronic renal failure. Lactic acid level is not elevated making severe sepsis less likely. No concerning liver enzyme elevation. Procalcitonin level is not elevated making serious bacterial infection less likely. Urinalysis is consistent with infection. Abdominal and pelvis CT shows thickening of the groin and scrotum consistent with cellulitis, no air or abscess seen. On exam, a scrotal cellulitis was noted. The patient was given IV morphine for pain, he received IV saline, 1 L. He received IV Zofran for nausea, IV ceftriaxone as antibiotic coverage. Patient presents with penile pain and appears to have a UTI with a scrotal/groin cellulitis. Given his findings, given his age, given his pain, I do think a hospital stay is warranted. I did speak with the patient and case management, the on-call hospitalist was consulted. Prior/Outside records/notes reviewed: Pain management note from 04/14/2023 discussing ambulatory dysfunction and ongoing back pain. Imaging/x-ray results per my interpretation: Chronic Medical/Social conditions affecting care: Penile cancer, advanced age. Care/Management discussed with: Case management, the on-call hospitalist. Level of care consideration(s): After review of the information above and other included data: --I believe the patient requires escalation of care to admission DISPOSITION: Admission Past Med/Surg History Medical History Lumbosacral facet joint syndrome Discogenic lumbar pain Acute metabolic encephalopathy UTI (urinary tract infection) Rib pain on left side Syncopal episodes COVID-19 Penile cancer KENROY (acute kidney injury) Unresponsiveness Anemia of chronic disease Diarrhea SCC (squamous cell carcinoma), penis Chronic pruritus Hypothyroidism Chronic renal insufficiency, stage IV (severe) Secondary hyperparathyroidism of renal origin Orthostatic hypotension Vitamin D deficiency SBO (small bowel obstruction) Small bowel obstruction due to adhesions Rectal bleed BRBPR (bright red blood per rectum) Dementia Hyperkalemia Acute cholecystitis Substernal chest pain resolved per pt Dysphagia "trouble keeping foods down" Fall walker and cane -- fall risk. Colitis Concussion Degenerative disc disease Osteoarthritis History of bleeding ulcers Diabetes mellitus, type 2 diet controlled Hx of migraines Hx of sleep apnea no device Atrial fibrillation no cardioversions/ no pacer. treated with medication and follows with PCP Balanoposthitis Phimosis DDD (degenerative disc disease), lumbar Atrial fibrillation (04/22/12) Peptic ulcer disease GERD (gastroesophageal reflux disease) BPH w urinary obs/LUTS Anal fistula Fall LAST FALL 1 WEEK AGO Hypoglycemia Bradycardia Surgical History S/P laparoscopic cholecystectomy (09/17/20) Laparoscopic Cholecystectomy with Cholangiogram with akira drain 09/17/20 Dr. Atkinson Hx of circumcision 2 yrs ago H/O knee surgery "MULTIPLE KNEE SURGERIES"- R/L History of total shoulder replacement LEFT History of total knee replacement RT/LEFT History of esophagogastroduodenoscopy (EGD) History of colonoscopy History of tooth extraction Hx of transurethral resection of prostate H/O gastric bypass 2004 Family History Sister Family history of diabetes mellitus Social History Smoking Status: Former smoker Tobacco Type: Cigarettes Second Hand Exposure: No; Do You Dip or Chew Tobacco: No; Hx Alcohol Use: No Hx Substance Use: No Preferred Language: Filipino Communication Ability: Effective Communication Ability Comment: can be forgetful Spooler Required: No Beliefs That Will Affect Care: None marital status: Current Living Situation: Spouse Current Living Situation Comment: At home with current occupational status: retired Feels Safe at Home: Yes Diet: regular Seatbelt Use: always Assistive Devices: Cane, Walker and Wheelchair Allergies Allergies Allergy/AdvReac Type Severity Reaction Status Date / Time iron [From Venofer] AdvReac Mild Verified 04/14/23 08:03 Home Meds Home Medications Medication Instructions Recorded Confirmed calcium carbonate 500 mg-vitamin 1 tab PO QAM 12/18/19 04/20/23 D3 5 mcg (200 unit) tablet (Calcium 500 + D) vitamin B complex 1 tab PO QAM 12/18/19 04/20/23 Lactobacillus acidophilus 10 10,000 mmu cells PO QDD 01/18/21 04/20/23 billion cell capsule (Probiotic) multivitamin 1 tab PO DAILY 08/01/22 04/20/23 cholecalciferol (vitamin D3) 25 1,000 mcg PO DAILY 08/10/22 04/20/23 mcg (1,000 unit) tablet acetaminophen 500 mg tablet 500 mg PO Q8H PRN Pain 12/22/22 04/20/23 (Tylenol Extra Strength) oxybutynin chloride 5 mg 5 mg PO DAILY PRN urinary 03/22/23 04/20/23 tablet,extended release 24 hr discomfort Previous Rx's Medication Instructions Recorded gabapentin 100 mg capsule 100 mg PO BID #180 caps 06/19/22 tamsulosin 0.4 mg capsule 0.4 mg PO DAILY #90 caps 06/19/22 sodium bicarbonate 650 mg tablet 650 mg PO BID Stomach upset #180 08/10/22 tabs calcitriol 0.25 mcg capsule 0.25 mcg PO DAILY #90 caps 10/06/22 levothyroxine 25 mcg tablet 25 mcg PO DAILYBB 90 days #90 tabs 10/12/22 (Synthroid) magnesium oxide 400 mg (241.3 mg 400 mg PO BID #180 tabs 11/23/22 magnesium) tablet omeprazole 40 mg capsule,delayed 40 mg PO BID 90 days #180 caps 11/23/22 release docusate sodium 100 mg tablet 100 mg PO BID #60 tabs 12/22/22 ferrous sulfate 325 mg (65 mg 325 mg PO BID #60 tabs 01/09/23 iron) tablet,delayed release metoprolol tartrate 25 mg tablet 25 mg PO BID #180 tabs 01/25/23 tramadol 50 mg tablet 25 mg (1/2 x 50 mg) PO Q8H PRN 03/04/23 pain #15 tabs loperamide 2 mg capsule 2 mg PO Q6H PRN loose stool #60 03/29/23 caps menthol 0.44 %-zinc oxide 20.6 % 1 applic topical QID PRN skin 03/29/23 topical ointment (Calmoseptine) irritation on groin #113 grams lidocaine 5 % topical patch 1 patch topical DAILY #30 ea 04/14/23 (DermacinRx Lidocan) apixaban 2.5 mg tablet (Eliquis) 2.5 mg PO BID #180 tabs 04/15/23 clopidogrel 75 mg tablet (Plavix) 75 mg PO DAILY #90 tabs 04/15/23 Results & Data (ED) Vital Signs Vital Signs - 24 hr 04/20/23 16:19 04/20/23 17:17 04/20/23 17:20 Temperature 36.2 C L Temperature Source Temporal Artery Scan Pulse Rate 89 86 Pulse Rate [Right Finger] 92 H Respiratory Rate 18 19 Respiratory Effort / Characteristics Non-Labored Non-Labored Spontaneous Respiratory Depth Normal Normal Blood Pressure 113/64 Blood Pressure [Right Arm] 109/80 Blood Pressure Mean 80 Blood Pressure Mean [Right Arm] 89 Pulse Oximetry 96 98 Oxygen Delivery Method Room Air Room Air Sepsis Recent Fever Within 48 Hours No Sepsis New/Unexplained Change in Mental Status No Sepsis Action Taken by Nursing No Action Required Home Medications Current Medication List: was personally reviewed by me Laboratory Data Attestation: I reviewed the patient's lab results. 04/20/23 16:31 04/20/23 16:31 Lab Results 04/20/23 04/20/23 04/20/23 Range/Units 16:31 16:32 17:18 WBC 7.17 (4.8-10.8) K/ul RBC 3.43 L (4.70-6.10) M/uL Hgb 10.9 L (14.0-18.0) g/dl Hct 34.7 L (42.0-52.0) % MCV 101.2 H (80.0-100.0) fL MCH 31.8 (25.0-34.0) pg MCHC 31.4 L (32.0-36.0) g/dL RDW Std Deviation 60.1 H (36.4-46.3) fL RDW Coeff of Yinka 16.2 H (11.5-14.5) % Plt Count 267 (130-400) K/uL MPV 10.3 (9.4-12.4) fL Immature Gran % (Auto) 0.6 % Neut % (Auto) 63.2 % Lymph % (Auto) 22.7 % Lincoln % (Auto) 10.6 % Eos % (Auto) 2.5 % Baso % (Auto) 0.4 % Neut # (Auto) 4.53 (1.40-6.50) K/uL Lymph # (Auto) 1.63 (1.20-3.40) K/uL Lincoln # (Auto) 0.76 H (0.11-0.59) K/uL Eos # (Auto) 0.18 (0.00-0.50) K/uL Baso # (Auto) 0.03 (0.00-0.20) K/uL Immature Gran # (Auto) 0.04 (0.01-0.20) K/uL Sodium 139 (136-145) mmol/L Potassium 5.3 H (3.5-5.1) mmol/L Chloride 114 H (98-107) mmol/L Carbon Dioxide 22 (21-32) mmol/L Anion Gap 3 (3-11) BUN 40 H (6-23) mg/dl Creatinine 2.77 H (0.6-1.4) mg/dl Est Cr Clr Drug Dosing Not Reportable Est GFR ( Amer) 22.8 ml/min Est GFR (Non-Af Amer) 19.7 ml/min BUN/Creatinine Ratio 14.4 (10-20) Glucose 112 H (70-99(Fasting)) mg/dl POC Glucose 88 (70-99) mg/dl Lactate (0.4-2.0) mmol/L Calcium 7.9 L (8.6-10.3) mg/dl Total Bilirubin 0.2 (0.2-1.0) mg/dl AST 18 (13-39) U/L ALT 16 (7-52) U/L Alkaline Phosphatase 111 H (34-104) U/L Total Protein 5.4 L (6.0-8.3) gm/dl Albumin 2.2 L (3.4-5.0) gm/dl Globulin 3.2 (2.5-4.0) gm/dl Albumin/Globulin Ratio 0.7 L (0.9-2) Procalcitonin < 0.05 (0-0.5) ng/ml 04/20/23 Range/Units 17:50 WBC (4.8-10.8) K/ul RBC (4.70-6.10) M/uL Hgb (14.0-18.0) g/dl Hct (42.0-52.0) % MCV (80.0-100.0) fL MCH (25.0-34.0) pg MCHC (32.0-36.0) g/dL RDW Std Deviation (36.4-46.3) fL RDW Coeff of Yinka (11.5-14.5) % Plt Count (130-400) K/uL MPV (9.4-12.4) fL Immature Gran % (Auto) % Neut % (Auto) % Lymph % (Auto) % Lincoln % (Auto) % Eos % (Auto) % Baso % (Auto) % Neut # (Auto) (1.40-6.50) K/uL Lymph # (Auto) (1.20-3.40) K/uL Lincoln # (Auto) (0.11-0.59) K/uL Eos # (Auto) (0.00-0.50) K/uL Baso # (Auto) (0.00-0.20) K/uL Immature Gran # (Auto) (0.01-0.20) K/uL Sodium (136-145) mmol/L Potassium (3.5-5.1) mmol/L Chloride (98-107) mmol/L Carbon Dioxide (21-32) mmol/L Anion Gap (3-11) BUN (6-23) mg/dl Creatinine (0.6-1.4) mg/dl Est Cr Clr Drug Dosing Est GFR ( Amer) ml/min Est GFR (Non-Af Amer) ml/min BUN/Creatinine Ratio (10-20) Glucose (70-99(Fasting)) mg/dl POC Glucose (70-99) mg/dl Lactate 1.2 (0.4-2.0) mmol/L Calcium (8.6-10.3) mg/dl Total Bilirubin (0.2-1.0) mg/dl AST (13-39) U/L ALT (7-52) U/L Alkaline Phosphatase (34-104) U/L Total Protein (6.0-8.3) gm/dl Albumin (3.4-5.0) gm/dl Globulin (2.5-4.0) gm/dl Albumin/Globulin Ratio (0.9-2) Procalcitonin (0-0.5) ng/ml Administered Medications Apixaban (Apixaban 2.5 Mg Tab) 2.5 mg PO BID SHY Stop: 05/20/23 22:23 Last Admin: 04/20/23 23:18 Dose: 2.5 mg Documented By: MAP Docusate Sodium (Docusate Sodium 100 Mg Cap) 100 mg PO BID SHY Stop: 05/20/23 22:23 Last Admin: 04/20/23 23:19 Dose: 100 mg Documented By: MAP Gabapentin (Gabapentin 100 Mg Cap) 100 mg PO BID SHY Stop: 05/20/23 22:23 Last Admin: 04/20/23 23:20 Dose: 100 mg Documented By: MAP Sodium Chloride (Nss) 1,000 mls @ 100 mls/hr IV .Q10H SHY Stop: 04/21/23 08:23 Last Admin: 04/20/23 23:13 Dose: 100 mls/hr Documented By: MAP Metoprolol Tartrate (Metoprolol Tartrate 25 Mg Tab) 25 mg PO BID SHY Stop: 05/20/23 22:23 Last Admin: 04/20/23 23:20 Dose: 25 mg Documented By: MAP Miscellaneous (Remove Lidoderm Patch) 1 each N/A DAILY@2100 SHY Stop: 05/20/23 22:23 Last Admin: 04/20/23 23:11 Dose: Not Given Documented By: MAP Nystatin (Nystatin Cr 15 Gm Tube) 1 appln EXT BID SHY Stop: 05/20/23 22:23 Last Admin: 04/20/23 23:44 Dose: 1 appln Documented By: MAP Pantoprazole Sodium (Pantoprazole 40 Mg Tab) 40 mg PO BID SHY Stop: 05/20/23 22:23 Last Admin: 04/20/23 23:21 Dose: 40 mg Documented By: MAP Discontinued Medications Cephalexin HCl (Cephalexin 500 Mg Cap) 500 mg PO ONE ONE; Protocol Stop: 04/20/23 23:01 Last Admin: 04/20/23 23:22 Dose: 500 mg Documented By: MAP Sodium Chloride (Nss) 1,000 mls @ 999 mls/hr IV .Q1H1M ONE Stop: 04/20/23 18:25 Last Infusion: 04/20/23 19:44 Dose: Infused Documented By: Admin: 04/20/23 18:17 Dose: 999 mls/hr Documented By: NRB Ceftriaxone Sodium (Rocephin) 2,000 mg in 50 mls @ 100 mls/hr IV NOW STA Stop: 04/20/23 17:54 Last Infusion: 04/20/23 18:46 Dose: Infused Documented By: Admin: 04/20/23 18:17 Dose: 100 mls/hr Documented By: NRB Miscellaneous (Patient's Height &/Or Weight Needed) 1 each N/A ONE STA Stop: 04/20/23 22:30 Last Admin: 04/20/23 23:23 Dose: 1 each Documented By: ERNESTO Morphine Sulfate (Morphine Sulfate 2 Mg/Ml Carp) 2 mg IV NOW STA Stop: 04/20/23 18:19 Last Admin: 04/20/23 18:29 Dose: 2 mg Documented By: NRB Ondansetron HCl (Ondansetron Inj 2 Mg/Ml 2 Ml Vial) 4 mg IV NOW STA Stop: 04/20/23 18:19 Last Admin: 04/20/23 18:29 Dose: 4 mg Documented By: NRB Imaging Data Radiologist's Impression: Abdomen/Pelvis CT 04/20/23 17:25 CT OF THE ABDOMEN AND PELVIS WITHOUT CONTRAST CLINICAL HISTORY: Pelvic pain, history of penile cancer. COMPARISON STUDY: CT of the abdomen and pelvis January 08, 2023. TECHNIQUE: Axial images of the abdomen and pelvis were obtained without IV contrast. Images were reviewed in the axial, sagittal, and coronal planes. Automated exposure control was utilized for the study. A dose lowering technique was utilized adhering to the principles of ALARA. FINDINGS: No pneumatosis, free air or portal venous gas is present. No renal, ureteral or bladder calculi are present. Left renal sinus calcifications are likely vascular. There is moderate bilateral renal atrophy. Evaluation of the abdomen and pelvis is suboptimal on this unenhanced exam. There are postoperative finding within the stomach. The gallbladder is surgically absent. Spleen, liver and pancreas are unremarkable on unenhanced exam. There is no evidence for a bowel obstruction. There is colonic diverticulosis without evidence for acute diverticulitis. A moderate amount stool within the colon is present. No pathologically enlarged lymph nodes are present. Prostate is enlarged, measuring 5.7 cm in transverse dimension. Bladder wall thickening with adjacent stranding is noted. Note is again made of edema along the dorsal aspect of the penis. This is unchanged. Infiltration adjacent to the penis has slightly increased. Nonspecific scrotal edema is noted. No fluid collections are present. There is no soft tissue gas. IMPRESSION: 1. Bladder wall thickening with adjacent stranding. This favors cystitis. 2. No urinary calculi or hydronephrosis. Enlarged prostate. 3. No change in edema along the dorsal aspect of the penis. Increase in adjacent stranding which could reflect cellulitis or edema. No new fluid collections. No soft tissue gas. 4. Moderate scrotal edema. ACT 112: Negative or not required by law. Electronically signed by: Emiliano Meier M.D. 04/20/2023 6:45 PM Discharge Plan Visit Data Chief Complaint: Penis Pain Stated Complaint: GENITAL INFECTION/PAIN ED Provider: Guillermo Mata Discharge Problem: Cellulitis, Anemia, Pain in penis, Acute UTI Patient Disposition: Admitted As Inpatient Condition: Fair Discharge Instructions Interventions: ED Discharge Assessment Last Done: 04/20/23 21:21 Discharge Problem: Cellulitis Qualifiers: Site of cellulitis: unspecified site Qualified Code(s): L03.90 - Cellulitis, unspecified Anemia Qualifiers: Anemia type: unspecified type Qualified Code(s): D64.9 - Anemia, unspecified
[2023-04-20] MEDS ORDERED: ONDANSETRON INJ 2 MG/ML 2 ML VIAL IV STA (18:18)
[2023-04-20] MEDS ORDERED: MoRPHine SULFATE 2 MG/ML CARP IV PRN (18:18)
[2023-04-20] MEDS ORDERED: MoRPHine SULFATE 2 MG/ML CARP IV STA (18:18)
--- NOTE | 2023-04-20 18:47 | CT Scan Report ---
CT OF THE ABDOMEN AND PELVIS WITHOUT CONTRAST CLINICAL HISTORY: Pelvic pain, history of penile cancer. COMPARISON STUDY: CT of the abdomen and pelvis January 08, 2023. TECHNIQUE: Axial images of the abdomen and pelvis were obtained without IV contrast. Images were revi ewed in the axial, sagittal, and coronal planes. Automated exposure control was utilized for the sania dy. A dose lowering technique was utilized adhering to the principles of ALARA. FINDINGS: No pneumatosis, free air or portal venous gas is present. No renal, ureteral or bladder flavio culi are present. Left renal sinus calcifications are likely vascular. There is moderate bilateral re nal atrophy. Evaluation of the abdomen and pelvis is suboptimal on this unenhanced exam. There are po stoperative finding within the stomach. The gallbladder is surgically absent. Spleen, liver and pancr eas are unremarkable on unenhanced exam. There is no evidence for a bowel obstruction. There is colon ic diverticulosis without evidence for acute diverticulitis. A moderate amount stool within the colon is present. No pathologically enlarged lymph nodes are present. Prostate is enlarged, measuring 5.7 cm in transverse dimension. Bladder wall thickening with adjacent stranding is noted. Note is again m elijah of edema along the dorsal aspect of the penis. This is unchanged. Infiltration adjacent to the pe nis has slightly increased. Nonspecific scrotal edema is noted. No fluid collections are present. The re is no soft tissue gas. IMPRESSION: 1. Bladder wall thickening with adjacent stranding. This favors cystitis. 2. No urinary calculi or hydronephrosis. Enlarged prostate. 3. No change in edema along the dorsal aspect of the penis. Increase in adjacent stranding which coul d reflect cellulitis or edema. No new fluid collections. No soft tissue gas. 4. Moderate scrotal edema. ACT 112: Negative or not required by law. Electronically signed by: Emiliano Meier M.D. 04/20/2023 6:45 PM
--- NOTE | 2023-04-20 19:56 | History & Physical Report ---
Date of Service April 20, 2023 Assessment & Plan (1) Cellulitis: Plan: 88-year-old male with history of penile cancer status post resection performed at [facility] presenting with penile discomfort as well as rash of the groin and scrotum. He is afebrile, nontoxic in appearance. He reports no abdominal pain or pelvic pain. Reports that he is urinating freely without difficulty however, does have trouble at times making the urinal resulting in incontinence and wet skin. Observation to medical Monitor groin cellulitis. Appears somewhat macerated, possibly component of fungal infection as well Follow cultures blood and urine sent in the ER Nystatin cream twice daily Keflex 500 mg p.o. twice daily Tylenol as needed for pain or fever Patient with episode of hypotension upon arrival to the floor. Blood pressure of 87/43. Improving with IV fluids. Per review of records, he has had episodic hypotension during hospital admission in the past. We will continue IV fluids as above, work-up and treatment of infection Check orthostatic vital signs (2) Benign prostatic hyperplasia with urinary obstruction: Plan: Patient with BPH. Reports he has been urinating without difficulty Continue Flomax Continue oxybutynin as needed for urinary discomfort Bladder scan with straight cath as needed (3) CKD (chronic kidney disease): Plan: BUN to creatinine slightly above baseline. Patient has received IV fluids in the ER. Has mild elevation of potassium at 5.3 Continue IV fluids. Normal saline at 100 mL/h x 1 L Repeat chemistry in the morning (4) Prediabetes: Plan: Patient with diabetes, diet controlled. Last hemoglobin A1c on 08/11/2022 = 6.5 Fingerstick before every meal nightly Goal blood sugar less than 180 while admitted Carb consistent diet as tolerated (5) Atrial fibrillation: Plan: Chronic. Stable. Continue renally dosed apixaban 2.5 mg p.o. twice daily Continue metoprolol 25 mg p.o. twice daily History of Present Illness Chief Complaint: Penile pain Primary Care Provider: DO Cl Araiza is an 88-year-old male with with history of squamous cell carcinoma of the penis with recent resection at [facility] [place] presenting with pain and irritation of the penis and scrotal area ongoing for the last several weeks. Patient has also had some worsening erythema and flaking skin that has been irritating to him. He reports that he is urinating without difficulty. Denies fever, chills, chest pain, cough or shortness of breath. No abdominal pain or pelvic discomfort. No additional complaints at this time. Allergies Allergy/AdvReac Type Severity Reaction Status Date / Time iron [From Venofer] AdvReac Mild Verified 04/14/23 08:03 Home Medications Medication Instructions Recorded Confirmed Type calcium carbonate 500 mg-vitamin 1 tab PO QAM 12/18/19 04/20/23 History D3 5 mcg (200 unit) tablet (Calcium 500 + D) vitamin B complex 1 tab PO QAM 12/18/19 04/20/23 History Lactobacillus acidophilus 10 10,000 mmu cells PO QDD 01/18/21 04/20/23 History billion cell capsule (Probiotic) gabapentin 100 mg capsule 100 mg PO BID #180 caps 06/19/22 04/20/23 Rx tamsulosin 0.4 mg capsule 0.4 mg PO DAILY #90 caps 06/19/22 04/20/23 Rx multivitamin 1 tab PO DAILY 08/01/22 04/20/23 History cholecalciferol (vitamin D3) 25 1,000 mcg PO DAILY 08/10/22 04/20/23 History mcg (1,000 unit) tablet sodium bicarbonate 650 mg tablet 650 mg PO BID Stomach upset #180 08/10/22 04/20/23 Rx tabs calcitriol 0.25 mcg capsule 0.25 mcg PO DAILY #90 caps 10/06/22 04/20/23 Rx levothyroxine 25 mcg tablet 25 mcg PO DAILYBB 90 days #90 tabs 10/12/22 04/20/23 Rx (Synthroid) magnesium oxide 400 mg (241.3 mg 400 mg PO BID #180 tabs 11/23/22 04/20/23 Rx magnesium) tablet omeprazole 40 mg capsule,delayed 40 mg PO BID 90 days #180 caps 11/23/22 04/20/23 Rx release acetaminophen 500 mg tablet 500 mg PO Q8H PRN Pain 12/22/22 04/20/23 History (Tylenol Extra Strength) docusate sodium 100 mg tablet 100 mg PO BID #60 tabs 12/22/22 04/20/23 Rx ferrous sulfate 325 mg (65 mg 325 mg PO BID #60 tabs 01/09/23 04/20/23 Rx iron) tablet,delayed release metoprolol tartrate 25 mg tablet 25 mg PO BID #180 tabs 01/25/23 04/20/23 Rx tramadol 50 mg tablet 25 mg (1/2 x 50 mg) PO Q8H PRN 03/04/23 04/20/23 Rx pain #15 tabs oxybutynin chloride 5 mg 5 mg PO DAILY PRN urinary 03/22/23 04/20/23 History tablet,extended release 24 hr discomfort loperamide 2 mg capsule 2 mg PO Q6H PRN loose stool #60 03/29/23 04/20/23 Rx caps menthol 0.44 %-zinc oxide 20.6 % 1 applic topical QID PRN skin 03/29/23 04/20/23 Rx topical ointment (Calmoseptine) irritation on groin #113 grams lidocaine 5 % topical patch 1 patch topical DAILY #30 ea 04/14/23 04/20/23 Rx (DermacinRx Lidocan) apixaban 2.5 mg tablet (Eliquis) 2.5 mg PO BID #180 tabs 04/15/23 04/20/23 Rx clopidogrel 75 mg tablet (Plavix) 75 mg PO DAILY #90 tabs 04/15/23 04/20/23 Rx Past Med/Surg History Medical History Lumbosacral facet joint syndrome Discogenic lumbar pain Acute metabolic encephalopathy UTI (urinary tract infection) Rib pain on left side Syncopal episodes COVID-19 Penile cancer KENROY (acute kidney injury) Unresponsiveness Anemia of chronic disease Diarrhea SCC (squamous cell carcinoma), penis Chronic pruritus Hypothyroidism Chronic renal insufficiency, stage IV (severe) Secondary hyperparathyroidism of renal origin Orthostatic hypotension Vitamin D deficiency SBO (small bowel obstruction) Small bowel obstruction due to adhesions Rectal bleed BRBPR (bright red blood per rectum) Dementia Hyperkalemia Acute cholecystitis Substernal chest pain resolved per pt Dysphagia "trouble keeping foods down" Fall walker and cane -- fall risk. Colitis Concussion Degenerative disc disease Osteoarthritis History of bleeding ulcers Diabetes mellitus, type 2 diet controlled Hx of migraines Hx of sleep apnea no device Atrial fibrillation no cardioversions/ no pacer. treated with medication and follows with PCP Balanoposthitis Phimosis DDD (degenerative disc disease), lumbar Atrial fibrillation (11/16/12) Peptic ulcer disease GERD (gastroesophageal reflux disease) BPH w urinary obs/LUTS Anal fistula Fall LAST FALL 1 WEEK AGO Hypoglycemia Bradycardia Surgical History S/P laparoscopic cholecystectomy (09/17/20) Laparoscopic Cholecystectomy with Cholangiogram with akira drain 09/17/20 Dr. Atkinson Hx of circumcision 2 yrs ago H/O knee surgery "MULTIPLE KNEE SURGERIES"- R/L History of total shoulder replacement LEFT History of total knee replacement RT/LEFT History of esophagogastroduodenoscopy (EGD) History of colonoscopy History of tooth extraction Hx of transurethral resection of prostate H/O gastric bypass 2004 Family History Sister Family history of diabetes mellitus Social History Smoking Status: Former smoker Tobacco Type: Cigarettes Second Hand Exposure: No; Do You Dip or Chew Tobacco: No; Hx Alcohol Use: No Hx Substance Use: No Preferred Language: Croatian Communication Ability: Effective Communication Ability Comment: can be forgetful Cutting Supervisor Required: No Beliefs That Will Affect Care: None marital status: Current Living Situation: Spouse Current Living Situation Comment: At home with current occupational status: retired Feels Safe at Home: Yes Diet: regular Seatbelt Use: always Assistive Devices: Cane, Walker and Wheelchair Review of Systems Review of Systems: All systems reviewed & are unremarkable except as noted in HPI & below Physical Exam Physical Exam: General: patient resting comfortably, NAD, non-toxic in appearance, AA&O x 4 Skin: warm, dry, intact, no rashes or lesions HEENT: NC/AT, PERRL, EOMI, anicteric sclera, conjunctiva without injection, external ear normal to inspection and nontender, nares patent, moist mucus membranes, dentition intact, no oropharyngeal lesions, neck supple, trachea midline, no LAD, no thyromegaly, no JVD Heart: +S1/S2, regular, no m/r/g Lungs: equal air entry bilaterally, no rales/rhonchi/wheezes Abd: +BS, soft, NT/ND, no masses/organomegaly/ascites Ext: warm, 2+ pulses in UE/LE bilaterally, no clubbing/cyanosis or edema Post surgical changes of the penis. Well demarcated area of erythema noted of scrotum and groin with flaking. No crepitus, bullae Neuro: nonfocal, patient AA&O x 4, speech intact, no facial droop, moving all extremities on command with equal strength 5/5 Results & Data Results & Data Vital Signs (Past 12 Hours) Vital Signs Temp Pulse Pulse Resp BP BP Pulse Ox 04/20/23 17:20 86 04/20/23 17:17 92 H 19 109/80 98 04/20/23 16:19 36.2 C L 89 18 113/64 96 O2 Del Method 04/20/23 17:20 04/20/23 17:17 Room Air 04/20/23 16:19 Room Air Laboratory Results Laboratory Results WBC 7.17 K/ul (4.8-10.8) 04/20/23 16:31 RBC 3.43 M/uL (4.70-6.10) L 04/20/23 16:31 Hgb 10.9 g/dl (14.0-18.0) L 04/20/23 16:31 Hct 34.7 % (42.0-52.0) L 04/20/23 16:31 MCV 101.2 fL (80.0-100.0) H 04/20/23 16:31 MCH 31.8 pg (25.0-34.0) 04/20/23 16:31 MCHC 31.4 g/dL (32.0-36.0) L 04/20/23 16:31 RDW Std Deviation 60.1 fL (36.4-46.3) H 04/20/23 16:31 RDW Coeff of Yinka 16.2 % (11.5-14.5) H 04/20/23 16:31 Plt Count 267 K/uL (130-400) 04/20/23 16:31 MPV 10.3 fL (9.4-12.4) 04/20/23 16:31 Immature Gran % (Auto) 0.6 % 04/20/23 16:31 Neut % (Auto) 63.2 % 04/20/23 16:31 Lymph % (Auto) 22.7 % 04/20/23 16:31 Bledsoe % (Auto) 10.6 % 04/20/23 16:31 Eos % (Auto) 2.5 % 04/20/23 16:31 Baso % (Auto) 0.4 % 04/20/23 16:31 Neut # (Auto) 4.53 K/uL (1.40-6.50) 04/20/23 16:31 Lymph # (Auto) 1.63 K/uL (1.20-3.40) 04/20/23 16:31 Bledsoe # (Auto) 0.76 K/uL (0.11-0.59) H 04/20/23 16:31 Eos # (Auto) 0.18 K/uL (0.00-0.50) 04/20/23 16:31 Baso # (Auto) 0.03 K/uL (0.00-0.20) 04/20/23 16:31 Immature Gran # (Auto) 0.04 K/uL (0.01-0.20) 04/20/23 16:31 Sodium 139 mmol/L (136-145) 04/20/23 16:31 Potassium 5.3 mmol/L (3.5-5.1) H 04/20/23 16:31 Chloride 114 mmol/L (98-107) H 04/20/23 16:31 Carbon Dioxide 22 mmol/L (21-32) 04/20/23 16:31 Anion Gap 3 (3-11) 04/20/23 16:31 BUN 40 mg/dl (6-23) H 04/20/23 16:31 Creatinine 2.77 mg/dl (0.6-1.4) H 04/20/23 16:31 Est Cr Clr Drug Dosing Not Reportable 04/20/23 16:31 Est GFR ( Amer) 22.8 ml/min 04/20/23 16:31 Est GFR (Non-Af Amer) 19.7 ml/min 04/20/23 16:31 BUN/Creatinine Ratio 14.4 (10-20) 04/20/23 16:31 Glucose 112 mg/dl (70-99(Fasting)) H 04/20/23 16:31 POC Glucose 88 mg/dl (70-99) 04/20/23 17:18 Lactate 1.2 mmol/L (0.4-2.0) 04/20/23 17:50 Calcium 7.9 mg/dl (8.6-10.3) L 04/20/23 16:31 Total Bilirubin 0.2 mg/dl (0.2-1.0) 04/20/23 16:31 AST 18 U/L (13-39) 04/20/23 16:31 ALT 16 U/L (7-52) 04/20/23 16:31 Alkaline Phosphatase 111 U/L (34-104) H 04/20/23 16:31 Total Protein 5.4 gm/dl (6.0-8.3) L 04/20/23 16:31 Albumin 2.2 gm/dl (3.4-5.0) L 04/20/23 16:31 Globulin 3.2 gm/dl (2.5-4.0) 04/20/23 16:31 Albumin/Globulin Ratio 0.7 (0.9-2) L 04/20/23 16:31 Procalcitonin < 0.05 ng/ml (0-0.5) 04/20/23 16:32 Urine Color Yellow 04/20/23 Unknown Urine Appearance Turbid (Clear) A 04/20/23 Unknown Urine pH 5.5 (4.5-7.5) 04/20/23 Unknown Ur Specific Sawyer 1.015 (1.000-1.030) 04/20/23 Unknown Urine Protein 2+ (Negative) H 04/20/23 Unknown Urine Glucose (UA) Negative (Negative) 04/20/23 Unknown Urine Ketones Negative (Negative) 04/20/23 Unknown Urine Blood 2+ (Negative) H 04/20/23 Unknown Urine Nitrite Negative (Negative) 04/20/23 Unknown Urine Bilirubin Negative (Negative) 04/20/23 Unknown Urine Urobilinogen Negative (Negative) 04/20/23 Unknown Ur Leukocyte Esterase 3+ (Negative) H 04/20/23 Unknown Urine WBC (Auto) >30 /hpf (0-5) H 04/20/23 Unknown Urine RBC (Auto) 10-30 /hpf (0-4) H 04/20/23 Unknown U Hyaline Cast (Auto) 0 /lpf (0-5) 04/20/23 Unknown U Epithel Cells (Auto) >30 /lpf (0-5) H 04/20/23 Unknown Urine Bacteria (Auto) Negative (Negative) 04/20/23 Unknown Impressions Abdomen/Pelvis CT 04/20/23 17:25 CT OF THE ABDOMEN AND PELVIS WITHOUT CONTRAST CLINICAL HISTORY: Pelvic pain, history of penile cancer. COMPARISON STUDY: CT of the abdomen and pelvis January 08, 2023. TECHNIQUE: Axial images of the abdomen and pelvis were obtained without IV contrast. Images were reviewed in the axial, sagittal, and coronal planes. Automated exposure control was utilized for the study. A dose lowering technique was utilized adhering to the principles of ALARA. FINDINGS: No pneumatosis, free air or portal venous gas is present. No renal, ureteral or bladder calculi are present. Left renal sinus calcifications are l ikely vascular. There is moderate bilateral renal atrophy. Evaluation of the abdomen and pelvis is suboptimal on this unenhanced exam. There are postoperative finding within the stomach. The gallbladder is surgically absent. Spleen, liver and pancreas are unremarkable on unenhanced exam. There is no evidence for a bowel obstruction. There is colonic diverticulosis without evidence for acute diverticulitis. A moderate amount stool within the colon is present. No pathologically enlarged lymph nodes are present. Prostate is enlarged, measuring 5.7 cm in transverse dimension. Bladder wall thickening with adjacent stranding is noted. Note is again made of edema along the dorsal aspect of the penis. This is unchanged. Infiltration adjacent to the penis has slightly increased. Nonspecific scrotal edema is noted. No fluid collections are present. There is no soft tissue gas. IMPRESSION: 1. Bladder wall thickening with adjacent stranding. This favors cystitis. 2. No urinary calculi or hydronephrosis. Enlarged prostate. 3. No change in edema along the dorsal aspect of the penis. Increase in adjacent stranding which could reflect cellulitis or edema. No new fluid collections. No soft tissue gas. 4. Moderate scrotal edema. ACT 112: Negative or not required by law. Electronically signed by: Emiliano Meier M.D. 04/20/2023 6:45 PM Code Status & VTE Plan VTE Prophylaxis Plan VTE Prophylaxis will be ordered: Yes PG Care Time/CCT Total # of Minutes Spent Total Time Spent with Patient: Total time spent is greater than 50% in coordination of care (as documented) at patient's floor/unit and/or counseling patient: Coding Level of Care Code 80526 INT INP/OBS CARE 2/55MIN Diagnoses Cellulitis L03.90 Site of cellulitis: unspecified site Benign prostatic hyperplasia with urinary obstruction N40.1; N13.8 Chronic kidney disease, unspecified CKD stage N18.9 Chronic kidney disease stage: unspecified stage Prediabetes R73.03 Atrial fibrillation I48.91 (1) Cellulitis Site of cellulitis: unspecified site Qualified Code(s): L03.90 - Cellulitis, unspecified (3) CKD (chronic kidney disease) Chronic kidney disease stage: unspecified stage Qualified Code(s): N18.9 - Chronic kidney disease, unspecified
[2023-04-20] MEDS ORDERED: traMADol HCL 50 MG TABLET PO PRN (22:24)
[2023-04-20] MEDS ORDERED: ACETAMINOPHEN 500 MG TAB PO PRN (22:24)
[2023-04-20] MEDS ORDERED: ACETAMINOPHEN 325 MG TAB PO PRN (22:24)
[2023-04-20] MEDS ORDERED: OXYBUTYNIN CHLORIDE XL 5 MG TABCR PO PRN (22:24)
[2023-04-20] MEDS ORDERED: SODIUM CHLORIDE 0.9% 1,000 ML IV SCH (22:24)
[2023-04-20] MEDS ORDERED: ONDANSETRON INJ 2 MG/ML 2 ML VIAL IV PRN (22:24)
[2023-04-20] MEDS ORDERED: Patient's HEIGHT &/or WEIGHT Needed STA (22:29)
[2023-04-20] MEDS ORDERED: cephALEXin 500 MG CAP PO ONE (23:00)
[2023-04-20] MEDS: APIXABAN 2.5 MG TAB PO SCH (23:18)
[2023-04-20] MEDS: DOCUSATE SODIUM 100 MG CAP PO SCH (23:19)
[2023-04-20] MEDS: GABAPENTIN 100 MG CAP PO SCH (23:20)
[2023-04-20] MEDS: METOPROLOL TARTRATE 25 MG TAB PO SCH (23:20)
[2023-04-20] MEDS: PANTOprazole 40 MG TAB PO SCH (23:21)
[2023-04-20] MEDS: NYSTATIN CR 15 GM TUBE EXT SCH (23:44)
[2023-04-21] MEDS ORDERED: SODIUM CHLORIDE 0.9% 500 ML IV ONE (01:37)
[2023-04-21] MEDS: LEVOTHYROXINE SODIUM 25 MCG TABLET PO SCH (05:52)
[2023-04-21 06:02] LABS: Hematocrit (blood only) 31.2 % (42.0-52.0); Hemoglobin 9.8 g/dl (14.0-18.0); Mean Corpuscular Hemoglobin 31.3 pg (25.0-34.0); Mean Corpuscular Hgb Conc 31.4 g/dL (32.0-36.0); Mean Corpuscular Volume 99.7 fL (80.0-100.0); Mean Platelet Volume 10.1 fL (9.4-12.4); Platelet Count 237 K/uL (130-400); RDW Coefficient of Variation 16.1 % (11.5-14.5); RDW Standard Deviation 58.5 fL (36.4-46.3); Red Blood Count 3.13 M/uL (4.70-6.10); White Blood Count 7.22 K/ul (4.8-10.8)
[2023-04-21 06:19] LABS: BUN Creatinine Ratio 15.3 (10-20); Calcium 7.5 mg/dl (8.6-10.3); Creatinine Clr Calc Pharmacy 24.1 ml/min; Est GFR (African American) 25.9 ml/min; Est GFR (Non-African American) 22.4 ml/min; Potassium 4.9 mmol/L (3.5-5.1)
--- NOTE | 2023-04-21 07:46 | Hospitalist Progress Note ---
Date of Service April 21, 2023 Assessment & Plan (1) Cellulitis: (2) Benign prostatic hyperplasia with urinary obstruction: (3) CKD (chronic kidney disease): (4) Prediabetes: (5) Atrial fibrillation: Plan 88-year-old male with history of penile cancer status post resection performed at [facility] presenting with penile discomfort as well as rash of the groin and scrotum. Cellulitis -Groin cellulitis, Appears somewhat macerated, possibly component of fungal infection as well -No leukocytes Nystatin cream twice daily Keflex 500 mg p.o. twice daily Tylenol as needed for pain or fever -Wound care consulted -BC and UC pending Keflex 500 mg p.o. twice daily Hx Squamous cell carcinoma s/p penile cancer Reports that he is urinating freely without difficulty however, does have trouble at times making the urinal resulting in incontinence and wet skin. Hypotension Episode in the ER: Improved with IV fluids BPH with urinary obstruction - urinating without difficulty -Continue Flomax Continue oxybutynin as needed for urinary discomfort Bladder scan with straight cath as needed CKD stage IV Cr: 2.49 at baseline S/p Iv fluids Follow BMPAM Diabetes - Chronic, stable diet controlled. Last hemoglobin A1c on 08/11/2022 = 6.5 Fingerstick before every meal nightly Goal blood sugar <180 Carb consistent diet as tolerated Atrial Fibrillation -Chronic, stable - Continue renally dosed apixaban 2.5 mg p.o. twice daily Continue metoprolol 25 mg p.o. twice daily Dispo: Med/ Surg Full code DVT: Eliquis Diet: DM 2 Admission and Anticipated Discharge Date Admission Date: April 20, 2023 Supervising Physician Co-Signing Physician Notes Resident Physician Supervision Note: I independently interviewed and examined the patient and verified the [place] history and physical, reviewed labs and image studies and agree with resident findings and care plan. Yin Watson is an 88-year-old male with with history of squamous cell carcinoma of the penis with recent resection at [facility] [place] presenting with pain and irritation of the penis and scrotal area ongoing for the last several weeks. Patient has also had some worsening erythema and flaking skin that has been irritating to him. He reports that he is urinating without difficulty. Denies fever, chills, chest pain, cough or shortness of breath. No abdominal pain or pelvic discomfort. No additional complaints at this time. Review of Systems Review of Systems: as per hpi Physical Exam Physical Exam: General: patient resting comfortably, NAD, non-toxic in appearance, AA&O x 4 Skin: warm, dry, intact, no rashes or lesions HEENT: NC/AT, PERRL, EOMI, anicteric sclera, conjunctiva without injection, external ear normal to inspection and nontender, nares patent, moist mucus membranes, dentition intact, no oropharyngeal lesions, neck supple, trachea midline, no LAD, no thyromegaly, no JVD Heart: +S1/S2, regular, no m/r/g Lungs: equal air entry bilaterally, no rales/rhonchi/wheezes Abd: +BS, soft, NT/ND, no masses/organomegaly/ascites Ext: warm, 2+ pulses in UE/LE bilaterally, no clubbing/cyanosis or edema Post surgical changes of the penis. Well demarcated area of erythema noted of scrotum and groin with flaking. No crepitus, bullae Neuro: nonfocal, patient AA&O x 4, speech intact, no facial droop, moving all extremities on command with equal strength 5/5 Results & Data Results & Data Vital Signs (Past 12 Hours) Vital Signs Temp Pulse Resp BP BP Pulse Ox O2 Del Method 04/21/23 07:22 36.4 C L 94 H 18 109/73 96 Room Air 04/21/23 02:18 86 100/66 98 Room Air 04/21/23 02:06 91 H 92/62 L 98 Room Air 04/21/23 01:33 36.7 C 94 H 18 87/43 L 99 Room Air 04/20/23 23:24 Room Air 04/20/23 23:24 36.7 C 63 16 116/71 93 Room Air 04/20/23 22:00 36.7 C 63 16 116/71 93 Room Air 04/20/23 20:45 110 H 20 110/78 100 Room Air Resident Activity Tracking Resident Involvement: Resident Care Provided Care Provided: Adult Hospital Medicine (1) Cellulitis Site of cellulitis: unspecified site Qualified Code(s): L03.90 - Cellulitis, unspecified (3) CKD (chronic kidney disease) Chronic kidney disease stage: unspecified stage Qualified Code(s): N18.9 - Chronic kidney disease, unspecified
[2023-04-21] MEDS: DOCUSATE SODIUM 100 MG CAP PO SCH ×2 (08:51→21:47)
[2023-04-21] MEDS: GABAPENTIN 100 MG CAP PO SCH ×2 (08:51→21:46)
[2023-04-21] MEDS: cephALEXin 500 MG CAP PO SCH ×2 (08:51→21:47)
[2023-04-21] MEDS: METOPROLOL TARTRATE 25 MG TAB PO SCH ×2 (08:51→21:46)
[2023-04-21] MEDS: CALCITRIOL 0.25 MCG CAPSULE PO SCH (08:51)
[2023-04-21] MEDS: APIXABAN 2.5 MG TAB PO SCH ×2 (08:51→21:46)
[2023-04-21] MEDS: PANTOprazole 40 MG TAB PO SCH ×2 (08:51→21:47)
[2023-04-21] MEDS: NYSTATIN CR 15 GM TUBE EXT SCH ×2 (08:52→21:49)
[2023-04-21] MEDS: CLOPIDOGREL BISULFATE 75 MG TAB PO SCH (08:52)
[2023-04-21] MEDS: TAMSULOSIN HCL 0.4 MG CAP PO SCH (08:52)
[2023-04-21] MEDS: LIDOCAINE 5% 1 PATCH TD SCH (08:52)
[2023-04-21] MEDS ORDERED: HYDROmorphone INJ 0.5 MG/0.5 ML SYR IV STA (14:34)
--- NOTE | 2023-04-21 15:25 | XRay Report ---
XR chest 1V portable HISTORY: 88 years-old Male chest pain acute chest pain COMPARISON: 03/16/2023 TECHNIQUE: AP view of the chest FINDINGS: Cardiac silhouette is enlarged. Unchanged blunting of the costophrenic angles with mild bibasilar ate lectasis. Pulmonary vascular congestion suggested. Degenerative changes of the spine and right should er. Reversed left shoulder arthroplasty.. IMPRESSION: Cardiomegaly with pulmonary vascular congestion. ACT 112: Negative or not required by law. The above report was generated using voice recognition software. It may contain grammatical, syntax o r spelling errors. Electronically signed by: Sixto Armenta M.D. 04/21/2023 3:24 PM
[2023-04-22] MEDS: LEVOTHYROXINE SODIUM 25 MCG TABLET PO SCH (06:29)
[2023-04-22 06:49] LABS: A calco-baum cmplx NotReported Not Detected (NotDetected); Bact fragilis Not Reported Not Detected (NotDetected); C auris Not Reported Not Detected (NotDetected); Calbicans Not Reported Not Detected (NotDetected); Candida glabrata Not Reported Not Detected (NotDetected); Candida krusei Not Reported Not Detected (NotDetected); Cneoformans/gatti Not Reported Not Detected (NotDetected); Cparapsilosis Not Reported Not Detected (NotDetected); E cloacae compx Not Reported Not Detected (NotDetected); Efaecalis Not Reported DETECTED (NotDetected); Efaecium Not Reported Not Detected (NotDetected); Enterobacterales Not Reported Not Detected (NotDetected); Escherichia coli Not Reported Not Detected (NotDetected); H influenzae Not Reported Not Detected (NotDetected); K aerogenes Not Reported Not Detected (NotDetected); Koxytoca Not Reported Not Detected (NotDetected); Kpneumoniae grp Not Reported Not Detected (NotDetected); Lmonocyt Not Reported Not Detected (NotDetected); N meningitidis Not Reported Not Detected (NotDetected); P aeruginosa Not Reported Not Detected (NotDetected); Proteus spp Not Reported Not Detected (NotDetected); Salmonella spp Not Reported Not Detected (NotDetected); Smarcescens Not Reported Not Detected (NotDetected); Staph lugdunensis Not Reported Not Detected (NotDetected); Staph spp. Not Reported Not Detected (NotDetected); Staphaureus Not Reported Not Detected (NotDetected); Staphepi Not Reported Not Detected (NotDetected); Stenmaltophilia Not Reported Not Detected (NotDetected); Strep agal(GrpB) Not Reported Not Detected (NotDetected); Strep pneum Not Reported Not Detected (NotDetected); Strep pyog (GrpA) Not Reported Not Detected (NotDetected); Strep spp Not Reported Not Detected (NotDetected); VanAB Resistant Gene VRE Not Detected (NotDetected)
--- NOTE | 2023-04-22 06:57 | Hospitalist Progress Note ---
Date of Service April 22, 2023 Assessment & Plan (1) Cellulitis: (2) Benign prostatic hyperplasia with urinary obstruction: (3) CKD (chronic kidney disease): (4) Prediabetes: (5) Atrial fibrillation: Plan 88-year-old male with history of penile cancer status post resection performed at [facility] presenting with penile discomfort as well as rash of the groin and scrotum. Bacteremia: Blood cultures: positive for Enterococcus faecalis IV Ampicillin 2,000 mg Q8H pending sensitivities Cellulitis -Groin cellulitis, Appears somewhat macerated, possibly component of fungal infection as well -No leukocytes Nystatin cream twice daily Tylenol as needed for pain or fever -Wound care consulted -BC and UC pending Keflex 500 mg p.o. twice daily Incontinence Hx Squamous cell carcinoma s/p penile cancer -Reports that he is urinating freely without difficulty however, - trouble at times making the urinal resulting in incontinence and wet skin. Hypotension Episode in the ER: 87/43 Improved with IV fluids BPH with urinary obstruction - urinating without difficulty -Continue Flomax Continue oxybutynin as needed for urinary discomfort Bladder scan with straight cath as needed CKD Cr: 2.49 at baseline S/p Iv fluids Follow BMPAM Diabetes - Chronic, stable diet controlled. Last hemoglobin A1c on 08/11/2022 = 6.5 Fingerstick before every meal nightly Goal blood sugar <180 Carb consistent diet as tolerated Atrial Fibrillation -Chronic, stable - Continue renally dosed apixaban 2.5 mg p.o. twice daily Continue metoprolol 25 mg p.o. twice daily Dispo: Med/ Surg Full code DVT: Eliquis Diet: DM 2 Admission and Anticipated Discharge Date Admission Date: April 20, 2023 Supervising Physician Co-Signing Physician Notes Resident Physician Supervision Note: I independently interviewed and examined the patient and verified the medina history and physical, reviewed labs and image studies and agree with resident findings and care plan. Doing much better this am. wants to go home. groin - some improvement in erythema. macerated surface - improved. Groin cellulitis -Improving with nystatin cream and oral keflex -wound care nurse - cleaned the area an reiterated keeping area clean. Positive blood culture - E faecalis and another G + bacilli - ? contamination -Pending identification and sensitivities -Start ampicillin IV. Chronic urinary incontinence post penile cancer surgery -local care for wound healing. -oxybutynin prn BPH with LUTS -flomax and prn straight cath Apixaban. anticipate d/c home in am once final culture results available. Yin Watson is an 88-year-old male with with history of squamous cell carcinoma of the penis with recent resection at [facility] [place] presenting with pain and irritation of the penis and scrotal area ongoing for the last several weeks. Patient has also had some worsening erythema and flaking skin that has been irritating to him. He reports that he is urinating without difficulty. Denies fever, chills, chest pain, cough or shortness of breath. No abdominal pain or pelvic discomfort. No additional complaints at this time. Seen today at bedside, acute distress. Denied chest pain, SOB, or any other symptoms. Feeling clinically better. Cellulitis improving, less erythema in scrotum. Review of Systems Review of Systems: as per hpi Physical Exam Physical Exam: General: patient resting comfortably, NAD, non-toxic in appearance, AA&O x 4 Skin: warm, dry, intact, no rashes or lesions HEENT: NC/AT, PERRL, EOMI, anicteric sclera, conjunctiva without injection, external ear normal to inspection and nontender, nares patent, moist mucus membranes, dentition intact, no oropharyngeal lesions, neck supple, trachea midline, no LAD, no thyromegaly, no JVD Heart: +S1/S2, regular, no m/r/g Lungs: equal air entry bilaterally, no rales/rhonchi/wheezes Abd: +BS, soft, NT/ND, no masses/organomegaly/ascites Ext: warm, 2+ pulses in UE/LE bilaterally, no clubbing/cyanosis or edema Post surgical changes of the penis. Well demarcated area of erythema noted of scrotum and groin with flaking. No crepitus, bullae Neuro: nonfocal, patient AA&O x 4, speech intact, no facial droop, moving all extremities on command with equal strength 5/5 Results & Data Results & Data Vital Signs (Past 12 Hours) Vital Signs Temp Pulse Resp BP Pulse Ox O2 Del Method 04/21/23 21:11 36.6 C 94 H 20 114/59 L 98 Room Air 04/21/23 19:50 Room Air Resident Activity Tracking Resident Involvement: Resident Care Provided Care Provided: [facility] (1) Cellulitis Site of cellulitis: unspecified site Qualified Code(s): L03.90 - Cellulitis, unspecified (3) CKD (chronic kidney disease) Chronic kidney disease stage: unspecified stage Qualified Code(s): N18.9 - Chronic kidney disease, unspecified
[2023-04-22 07:01] LABS: Enterococcus faecalis DETECTED (NotDetected)
[2023-04-22] MEDS ORDERED: cefTRIAXone SODIUM 2,000 MG in DEXTROSE 5 % MINI-B 50 ML IV SCH (07:30)
[2023-04-22] MEDS ORDERED: AMPICILLIN SOD 1 GM VIAL IV SCH (07:45)
[2023-04-22] MEDS: TAMSULOSIN HCL 0.4 MG CAP PO SCH (08:10)
[2023-04-22] MEDS: APIXABAN 2.5 MG TAB PO SCH ×2 (08:10→20:51)
[2023-04-22] MEDS: PANTOprazole 40 MG TAB PO SCH ×2 (08:10→20:52)
[2023-04-22] MEDS: GABAPENTIN 100 MG CAP PO SCH ×2 (08:10→20:51)
[2023-04-22] MEDS: METOPROLOL TARTRATE 25 MG TAB PO SCH ×2 (08:10→20:51)
[2023-04-22] MEDS: CALCITRIOL 0.25 MCG CAPSULE PO SCH (08:10)
[2023-04-22] MEDS: DOCUSATE SODIUM 100 MG CAP PO SCH ×2 (08:10→20:51)
[2023-04-22] MEDS: CLOPIDOGREL BISULFATE 75 MG TAB PO SCH (08:11)
[2023-04-22] MEDS: NYSTATIN CR 15 GM TUBE EXT SCH ×2 (08:11→20:50)
[2023-04-22] MEDS: LIDOCAINE 5% 1 PATCH TD SCH (08:12)
[2023-04-22] MEDS: AMPICILLIN 2,000 MG in SODIUM CHLOR 0.9% MINI-B 100 ML IV SCH ×3 (08:47→23:50)
[2023-04-22 09:26] LABS: Basophils # (auto) 0.03 K/uL (0.00-0.20); Basophils % (auto) 0.5 %; Eosinophils # (auto) 0.12 K/uL (0.00-0.50); Eosinophils % (auto) 2.1 %; Hematocrit (blood only) 36.1 % (42.0-52.0); Hemoglobin 11.5 g/dl (14.0-18.0); Immature Granulocytes # (auto) 0.02 K/uL (0.01-0.20); Immature Granulocytes % (auto) 0.3 %; Lymphocytes # (auto) 1.06 K/uL (1.20-3.40); Lymphocytes % (auto) 18.5 %; Mean Corpuscular Hemoglobin 31.3 pg (25.0-34.0); Mean Corpuscular Hgb Conc 31.9 g/dL (32.0-36.0); Mean Corpuscular Volume 98.4 fL (80.0-100.0); Mean Platelet Volume 10.2 fL (9.4-12.4); Monocytes # (auto) 0.46 K/uL (0.11-0.59); Neutrophils # (auto) 4.04 K/uL (1.40-6.50); Neutrophils % (auto) 70.6 %; Platelet Count 262 K/uL (130-400); RDW Coefficient of Variation 15.9 % (11.5-14.5); RDW Standard Deviation 57.4 fL (36.4-46.3); Red Blood Count 3.67 M/uL (4.70-6.10); White Blood Count 5.73 K/ul (4.8-10.8)
[2023-04-22 09:41] LABS: BUN Creatinine Ratio 13.9 (10-20); Calcium 8.1 mg/dl (8.6-10.3); Creatinine Clr Calc Pharmacy 25.3 ml/min; Est GFR (African American) 27.5 ml/min; Est GFR (Non-African American) 23.7 ml/min; Magnesium 1.7 mg/dl (1.7-2.4); Phosphorus 3.2 mg/dl (2.5-4.9); Potassium 4.8 mmol/L (3.5-5.1)
[2023-04-22] MEDS ORDERED: MICONAZOLE NITRATE POWDER 85 GM EXT PRN (17:14)
[2023-04-23] MEDS: LEVOTHYROXINE SODIUM 25 MCG TABLET PO SCH (04:57)
--- NOTE | 2023-04-23 07:06 | Hospitalist Progress Note ---
Date of Service April 23, 2023 Assessment & Plan (1) Cellulitis: (2) Benign prostatic hyperplasia with urinary obstruction: (3) CKD (chronic kidney disease): (4) Prediabetes: (5) Atrial fibrillation: Plan 88-year-old male with history of penile cancer status post resection performed at [facility] presenting with penile discomfort as well as rash of the groin and scrotum. Bacteremia: Blood cultures: positive for Enterococcus faecalis IV Ampicillin 2,000 mg Q8H pending sensitivities Groin Cellulitis -Improving - possibly component of fungal infection as well -No leukocytes Nystatin cream twice daily Tylenol as needed for pain or fever -Wound care consulted: -BC and UC pending Keflex 500 mg p.o. twice daily Hx Squamous cell carcinoma s/p penile cancer -Reports that he is urinating freely without difficulty however, - trouble at times making the urinal resulting in incontinence and wet skin. Hypotension Episode in the ER: /43 Improved with IV fluids BPH with urinary obstruction - urinating without difficulty -Continue Flomax Continue oxybutynin as needed for urinary discomfort Bladder scan with straight cath as needed CKD Cr: 2.49 at baseline S/p Iv fluids Follow BMP[facility] Diabetes - Chronic, stable diet controlled. Last hemoglobin A1c on 08/11/2022 = 6.5 Fingerstick before every meal nightly Goal blood sugar <180 Carb consistent diet as tolerated Atrial Fibrillation -Chronic, stable - Continue renally dosed apixaban 2.5 mg p.o. twice daily Continue metoprolol 25 mg p.o. twice daily Dispo: Med/ Surg Full code DVT: Eliquis Diet: DM 2 Admission and Anticipated Discharge Date Admission Date: April 20, 2023 Yin Watson is an 88-year-old male with with history of squamous cell carcinoma of the penis with recent resection at [facility] [place] presenting with pain and irritation of the penis and scrotal area ongoing for the last several weeks. Patient has also had some worsening erythema and flaking skin that has been irritating to him. He reports that he is urinating without difficulty. Denies fever, chills, chest pain, cough or shortness of breath. No abdominal pain or pelvic discomfort. No additional complaints at this time. Seen today at bedside, acute distress. Denied chest pain, SOB, or any other symptoms. Feeling clinically better. Cellulitis improving, less erythema in scrotum. Review of Systems Review of Systems: as per hpi Physical Exam Physical Exam: General: patient resting comfortably, NAD, non-toxic in appearance, AA&O x 4 Skin: warm, dry, intact, no rashes or lesions HEENT: NC/AT, PERRL, EOMI, anicteric sclera, conjunctiva without injection, external ear normal to inspection and nontender, nares patent, moist mucus membranes, dentition intact, no oropharyngeal lesions, neck supple, trachea midline, no LAD, no thyromegaly, no JVD Heart: +S1/S2, regular, no m/r/g Lungs: equal air entry bilaterally, no rales/rhonchi/wheezes Abd: +BS, soft, NT/ND, no masses/organomegaly/ascites Ext: warm, 2+ pulses in UE/LE bilaterally, no clubbing/cyanosis or edema Post surgical changes of the penis. Well demarcated area of erythema noted of scrotum and groin with flaking. No crepitus, bullae Neuro: nonfocal, patient AA&O x 4, speech intact, no facial droop, moving all extremities on command with equal strength 5/5 Results & Data Results & Data Vital Signs (Past 12 Hours) Vital Signs Temp Pulse Resp BP O2 Del Method 04/22/23 21:20 Room Air 04/22/23 20:25 36.6 C 96 H 16 121/70 Room Air (1) Cellulitis Site of cellulitis: unspecified site Qualified Code(s): L03.90 - Cellulitis, unspecified (3) CKD (chronic kidney disease) Chronic kidney disease stage: unspecified stage Qualified Code(s): N18.9 - Chronic kidney disease, unspecified
[2023-04-23] MEDS ORDERED: cephALEXin 500 MG CAP PO STA (07:11)
[2023-04-23] MEDS: DOCUSATE SODIUM 100 MG CAP PO SCH (08:42)
[2023-04-23] MEDS: TAMSULOSIN HCL 0.4 MG CAP PO SCH (08:42)
[2023-04-23] MEDS: METOPROLOL TARTRATE 25 MG TAB PO SCH (08:42)
[2023-04-23] MEDS: GABAPENTIN 100 MG CAP PO SCH (08:42)
[2023-04-23] MEDS: PANTOprazole 40 MG TAB PO SCH (08:42)
[2023-04-23] MEDS: APIXABAN 2.5 MG TAB PO SCH (08:43)
[2023-04-23] MEDS: NYSTATIN CR 15 GM TUBE EXT SCH (08:43)
[2023-04-23] MEDS: LIDOCAINE 5% 1 PATCH TD SCH (08:43)
[2023-04-23] MEDS: CLOPIDOGREL BISULFATE 75 MG TAB PO SCH (08:43)
[2023-04-23] MEDS: CALCITRIOL 0.25 MCG CAPSULE PO SCH (08:43)
[2023-04-23] MEDS: AMPICILLIN 2,000 MG in SODIUM CHLOR 0.9% MINI-B 100 ML IV SCH (08:44)
[2023-04-23] MEDS ORDERED: cephALEXin 500 MG CAP PO SCH (09:00)
--- NOTE | 2023-04-23 13:54 | Discharge Summary ---
Date of Service April 23, 2023 Admission HPI Per Admitting Provider Cl Watson is an 88-year-old male with with history of squamous cell carcinoma of the penis with [place] [facility] [place] with pain and irritation of the penis and scrotal area ongoing for the last several weeks. Patient has also had some worsening erythema and flaking skin that has been irritating to him. He reports that he is urinating without difficulty. Denies fever, chills, chest pain, cough or shortness of breath. No abdominal pain or pelvic discomfort. No additional complaints at this time. Admission Exam Per Admitting Provider General: patient resting comfortably, NAD, non-toxic in appearance, AA&O x 4 Skin: warm, dry, intact, no rashes or lesions HEENT: NC/AT, PERRL, EOMI, anicteric sclera, conjunctiva without injection, external ear normal to inspection and nontender, nares patent, moist mucus membranes, dentition intact, no oropharyngeal lesions, neck supple, trachea midline, no LAD, no thyromegaly, no JVD Heart: +S1/S2, regular, no m/r/g Lungs: equal air entry bilaterally, no rales/rhonchi/wheezes Abd: +BS, soft, NT/ND, no masses/organomegaly/ascites Ext: warm, 2+ pulses in UE/LE bilaterally, no clubbing/cyanosis or edema Post surgical changes of the penis. Well demarcated area of erythema noted of scrotum and groin with flaking. No crepitus, bullae Neuro: nonfocal, patient AA&O x 4, speech intact, no facial droop, moving all extremities on command with equal strength 5/5 Principal Diagnosis Cellulitis Discharge Exam Constitutional WD/WN, vitals as above Respiratory normal respiratory effort, lungs clear to auscultation Cardiovascular Rate/Rhythm: + irregularly irregular Heart Sounds: no murmur Gastrointestinal (Abdomen) normal bowel sounds, soft, nontender, no hepatosplenomegaly Skin Groin area: Post surgical changes of the penis. Decreased demarcated area of erythema in scrotum and groin. No crepitus, bullae. no warm Discharge Data Allergies Allergy/AdvReac Type Severity Reaction Status Date / Time iron [From Venofer] AdvReac Mild Verified 04/14/23 08:03 Consultations 04/20/23 19:19 ED Decision to Admit Stat Ordered Studies 04/20/23 17:25 CT abd pelvis wo con Stat Microbiology 04/20/23 17:50 Blood Aerobic Blood Culture - Preliminary Enterococcus faecalis Gram positive bacilli 04/20/23 17:50 Blood Anaerobic Blood Culture - Preliminary No growth in Anaerobic bottle after 48 hours. 04/23/23 10:40 Blood Aerobic Blood Culture - Pending 04/23/23 10:40 Blood Anaerobic Blood Culture - Pending 04/23/23 10:35 Blood Aerobic Blood Culture - Pending 04/23/23 10:35 Blood Anaerobic Blood Culture - Pending 04/20/23 17:55 Blood Aerobic Blood Culture - Preliminary No growth in Aerobic bottle after 48 hours. 04/20/23 17:55 Blood Anaerobic Blood Culture - Preliminary No growth in Anaerobic bottle after 48 hours. 04/20/23 Unknown Urine,Clean Catch Urine Culture - Final More than three types of organisms present, all high counts. Repeat collection recommended. No further identifications or sensitivities to follow. Labs 04/20/23 04/20/23 04/20/23 16:31 16:32 17:18 WBC 7.17 RBC 3.43 L Hgb 10.9 L Hct 34.7 L MCV 101.2 H MCH 31.8 MCHC 31.4 L RDW Std Deviation 60.1 H RDW Coeff of Yinka 16.2 H Plt Count 267 MPV 10.3 Immature Gran % (Auto) 0.6 Neut % (Auto) 63.2 Lymph % (Auto) 22.7 [facility] % (Auto) 10.6 Eos % (Auto) 2.5 Baso % (Auto) 0.4 Neut # (Auto) 4.53 Lymph # (Auto) 1.63 [facility] # (Auto) 0.76 H Eos # (Auto) 0.18 Baso # (Auto) 0.03 Immature Gran # (Auto) 0.04 Sodium 139 Potassium 5.3 H Chloride 114 H Carbon Dioxide 22 Anion Gap 3 BUN 40 H Creatinine 2.77 H Est Cr Clr Drug Dosing Not Reportable Est GFR ( Amer) 22.8 Est GFR (Non-Af Amer) 19.7 BUN/Creatinine Ratio 14.4 Glucose 112 H POC Glucose 88 Lactate Calcium 7.9 L Phosphorus Magnesium Total Bilirubin 0.2 AST 18 ALT 16 Alkaline Phosphatase 111 H Troponin I High Sens Total Protein 5.4 L Albumin 2.2 L Globulin 3.2 Albumin/Globulin Ratio 0.7 L Procalcitonin < 0.05 Urine Color Urine Appearance Urine pH Ur Specific [place] Urine Protein Urine Glucose (UA) Urine Ketones Urine Blood Urine Nitrite Urine Bilirubin Urine Urobilinogen Ur Leukocyte Esterase Urine WBC (Auto) Urine RBC (Auto) U Hyaline Cast (Auto) U Epithel Cells (Auto) Urine Bacteria (Auto) Enterococc faecalis PCR Lloyd/B-Vanco Res Genes Bld Cult ID Panel PCR Bld Cult ID PCR Com 04/20/23 04/20/23 04/21/23 17:50 Unknown 05:47 WBC 7.22 RBC 3.13 L Hgb 9.8 L Hct 31.2 L MCV 99.7 MCH 31.3 MCHC 31.4 L RDW Std Deviation 58.5 H RDW Coeff of Yinka 16.1 H Plt Count 237 MPV 10.1 Immature Gran % (Auto) Neut % (Auto) Lymph % (Auto) [facility] % (Auto) Eos % (Auto) Baso % (Auto) Neut # (Auto) Lymph # (Auto) [facility] # (Auto) Eos # (Auto) Baso # (Auto) Immature Gran # (Auto) Sodium 142 Potassium 4.9 Chloride 117 H Carbon Dioxide 22 Anion Gap 3 BUN 38 H Creatinine 2.49 H Est Cr Clr Drug Dosing 24.1 Est GFR ( Amer) 25.9 Est GFR (Non-Af Amer) 22.4 BUN/Creatinine Ratio 15.3 Glucose 90 POC Glucose Lactate 1.2 Calcium 7.5 L Phosphorus Magnesium Total Bilirubin AST ALT Alkaline Phosphatase Troponin I High Sens Total Protein Albumin Globulin Albumin/Globulin Ratio Procalcitonin Urine Color Yellow Urine Appearance Turbid A Urine pH 5.5 Ur Specific [place] 1.015 Urine Protein 2+ H Urine Glucose (UA) Negative Urine Ketones Negative Urine Blood 2+ H Urine Nitrite Negative Urine Bilirubin Negative Urine Urobilinogen Negative Ur Leukocyte Esterase 3+ H Urine WBC (Auto) >30 H Urine RBC (Auto) 10-30 H U Hyaline Cast (Auto) 0 U Epithel Cells (Auto) >30 H Urine Bacteria (Auto) Negative Enterococc faecalis PCR DETECTED A Lloyd/B-Vanco Res Genes VRE Not Detected Bld Cult ID Panel PCR See PCR Comment Bld Cult ID PCR Com [employer]OCI[employer] PROF[employer] 11/15/23 11/15/23 11/15/23 07:37 11:52 14:42 WBC RBC Hgb Hct MCV MCH MCHC RDW Std Deviation RDW Coeff of Yinka Plt Count MPV Immature Gran % (Auto) Neut % (Auto) Lymph % (Auto) [facility] % (Auto) Eos % (Auto) Baso % (Auto) Neut # (Auto) Lymph # (Auto) [facility] # (Auto) Eos # (Auto) Baso # (Auto) Immature Gran # (Auto) Sodium Potassium Chloride Carbon Dioxide Anion Gap BUN Creatinine Est Cr Clr Drug Dosing Est GFR ( Amer) Est GFR (Non-Af Amer) BUN/Creatinine Ratio Glucose POC Glucose 79 87 Lactate Calcium Phosphorus Magnesium Total Bilirubin AST ALT Alkaline Phosphatase Troponin I High Sens 6.5 Total Protein Albumin Globulin Albumin/Globulin Ratio Procalcitonin Urine Color Urine Appearance Urine pH Ur Specific [place] Urine Protein Urine Glucose (UA) Urine Ketones Urine Blood Urine Nitrite Urine Bilirubin Urine Urobilinogen Ur Leukocyte Esterase Urine WBC (Auto) Urine RBC (Auto) U Hyaline Cast (Auto) U Epithel Cells (Auto) Urine Bacteria (Auto) Enterococc faecalis PCR Lloyd/B-Vanco Res Genes Bld Cult ID Panel PCR Bld Cult ID PCR Com 04/21/23 04/21/23 04/22/23 16:26 20:33 07:31 WBC RBC Hgb Hct MCV MCH MCHC RDW Std Deviation RDW Coeff of Yinka Plt Count MPV Immature Gran % (Auto) Neut % (Auto) Lymph % (Auto) [facility] % (Auto) Eos % (Auto) Baso % (Auto) Neut # (Auto) Lymph # (Auto) [facility] # (Auto) Eos # (Auto) Baso # (Auto) Immature Gran # (Auto) Sodium Potassium Chloride Carbon Dioxide Anion Gap BUN Creatinine Est Cr Clr Drug Dosing Est GFR ( Amer) Est GFR (Non-Af Amer) BUN/Creatinine Ratio Glucose POC Glucose 107 H 103 H 79 Lactate Calcium Phosphorus Magnesium Total Bilirubin AST ALT Alkaline Phosphatase Troponin I High Sens Total Protein Albumin Globulin Albumin/Globulin Ratio Procalcitonin Urine Color Urine Appearance Urine pH Ur Specific [place] Urine Protein Urine Glucose (UA) Urine Ketones Urine Blood Urine Nitrite Urine Bilirubin Urine Urobilinogen Ur Leukocyte Esterase Urine WBC (Auto) Urine RBC (Auto) U Hyaline Cast (Auto) U Epithel Cells (Auto) Urine Bacteria (Auto) Enterococc faecalis PCR Lloyd/B-Vanco Res Genes Bld Cult ID Panel PCR Bld Cult ID PCR Com 04/22/23 04/22/23 04/22/23 08:52 11:30 16:37 WBC 5.73 RBC 3.67 L Hgb 11.5 L Hct 36.1 L MCV 98.4 MCH 31.3 MCHC 31.9 L RDW Std Deviation 57.4 H RDW Coeff of Yinka 15.9 H Plt Count 262 MPV 10.2 Immature Gran % (Auto) 0.3 Neut % (Auto) 70.6 Lymph % (Auto) 18.5 [facility] % (Auto) 8.0 Eos % (Auto) 2.1 Baso % (Auto) 0.5 Neut # (Auto) 4.04 Lymph # (Auto) 1.06 L [facility] # (Auto) 0.46 Eos # (Auto) 0.12 Baso # (Auto) 0.03 Immature Gran # (Auto) 0.02 Sodium 139 Potassium 4.8 Chloride 114 H Carbon Dioxide 21 Anion Gap 4 BUN 33 H Creatinine 2.37 H Est Cr Clr Drug Dosing 25.3 Est GFR ( Amer) 27.5 Est GFR (Non-Af Amer) 23.7 BUN/Creatinine Ratio 13.9 Glucose 169 H POC Glucose 93 96 Lactate Calcium 8.1 L Phosphorus 3.2 Magnesium 1.7 Total Bilirubin AST ALT Alkaline Phosphatase Troponin I High Sens Total Protein Albumin Globulin Albumin/Globulin Ratio Procalcitonin Urine Color Urine Appearance Urine pH Ur Specific [place] Urine Protein Urine Glucose (UA) Urine Ketones Urine Blood Urine Nitrite Urine Bilirubin Urine Urobilinogen Ur Leukocyte Esterase Urine WBC (Auto) Urine RBC (Auto) U Hyaline Cast (Auto) U Epithel Cells (Auto) Urine Bacteria (Auto) Enterococc faecalis PCR Lloyd/B-Vanco Res Genes Bld Cult ID Panel PCR Bld Cult ID PCR Com 04/23/23 04/23/23 04/23/23 08:03 11:34 11:35 WBC RBC Hgb Hct MCV MCH MCHC RDW Std Deviation RDW Coeff of Yinka Plt Count MPV Immature Gran % (Auto) Neut % (Auto) Lymph % (Auto) [facility] % (Auto) Eos % (Auto) Baso % (Auto) Neut # (Auto) Lymph # (Auto) [facility] # (Auto) Eos # (Auto) Baso # (Auto) Immature Gran # (Auto) Sodium Potassium Chloride Carbon Dioxide Anion Gap BUN Creatinine Est Cr Clr Drug Dosing Est GFR ( Amer) Est GFR (Non-Af Amer) BUN/Creatinine Ratio Glucose POC Glucose 93 69 L* 70 Lactate Calcium Phosphorus Magnesium Total Bilirubin AST ALT Alkaline Phosphatase Troponin I High Sens Total Protein Albumin Globulin Albumin/Globulin Ratio Procalcitonin Urine Color Urine Appearance Urine pH Ur Specific [place] Urine Protein Urine Glucose (UA) Urine Ketones Urine Blood Urine Nitrite Urine Bilirubin Urine Urobilinogen Ur Leukocyte Esterase Urine WBC (Auto) Urine RBC (Auto) U Hyaline Cast (Auto) U Epithel Cells (Auto) Urine Bacteria (Auto) Enterococc faecalis PCR Lloyd/B-Vanco Res Genes Bld Cult ID Panel PCR Bld Cult ID PCR Com Abdomen/Pelvis CT 04/20/23 17:25 CT OF THE ABDOMEN AND PELVIS WITHOUT CONTRAST CLINICAL HISTORY: Pelvic pain, history of penile cancer. COMPARISON STUDY: CT of the abdomen and pelvis January 08, 2023. TECHNIQUE: Axial images of the abdomen and pelvis were obtained without IV contrast. Images were reviewed in the axial, sagittal, and coronal planes. Automated exposure control was utilized for the study. A dose lowering technique was utilized adhering to the principles of ALARA. FINDINGS: No pneumatosis, free air or portal venous gas is present. No renal, ureteral or bladder calculi are present. Left renal sinus calcifications are likely vascular. There is moderate bilateral renal atrophy. Evaluation of the abdomen and pelvis is suboptimal on this unenhanced exam. There are postoperative finding within the stomach. The gallbladder is surgically absent. Spleen, liver and pancreas are unremarkable on unenhanced exam. There is no evidence for a bowel obstruction. There is colonic diverticulosis without evidence for acute diverticulitis. A moderate amount stool within the colon is present. No pathologically enlarged lymph nodes are present. Prostate is enlarged, measuring 5.7 cm in transverse dimension. Bladder wall thickening with adjacent stranding is noted. Note is again made of edema along the dorsal aspect of the penis. This is unchanged. Infiltration adjacent to the penis has slightly increased. Nonspecific scrotal edema is noted. No fluid collections are present. There is no soft tissue gas. IMPRESSION: 1. Bladder wall thickening with adjacent stranding. This favors cystitis. 2. No urinary calculi or hydronephrosis. Enlarged prostate. 3. No change in edema along the dorsal aspect of the penis. Increase in adjacent stranding which could reflect cellulitis or edema. No new fluid collections. No soft tissue gas. 4. Moderate scrotal edema. ACT 112: Negative or not required by law. Electronically signed by: Emiliano Meier M.D. 04/20/2023 6:45 PM Chest X-Ray 04/21/23 14:33 XR chest 1V portable HISTORY: 88 years-old Male chest pain acute chest pain COMPARISON: 03/16/2023 TECHNIQUE: AP view of the chest FINDINGS: Cardiac silhouette is enlarged. Unchanged blunting of the costophrenic angles with mild bibasilar atelectasis. Pulmonary vascular congestion suggested. Degenerative changes of the spine and right shoulder. Reversed left shoulder arthroplasty.. IMPRESSION: Cardiomegaly with pulmonary vascular congestion. ACT 112: Negative or not required by law. The above report was generated using voice recognition software. It may contain grammatical, syntax or spelling errors. Electronically signed by: Sixto Armenta M.D. 04/21/2023 3:24 PM Hospital Course (1) Cellulitis: (2) Benign prostatic hyperplasia with urinary obstruction: (3) CKD (chronic kidney disease): (4) Prediabetes: (5) Atrial fibrillation: Plan 88-year-old male with history of penile cancer status post resection performed at [facility] presenting with penile discomfort as well as rash of the groin and scrotum. Groin Cellulitis -Possibly component of fungal infection, patient having problem keeping area dry and patient seem to pick area -Improved with Nystatin cream and oral Keflex - no Leukocytes, no fever Positive blood culture -1 vial of the 4 came back with E. fecalis and another G+ bacilli -Patient received Ampicillin IV for 2 days. -On day of D/C blood culture was repeated Patient was discharged with Augmentin to cover for possible bacteremia/ contami nated vial and cellulitis, as well with Nystatin cream. He and was oriented about keeping area clean and dry and instructions Encourage to follow PCP within the next couple of days, for follow up and results of repeat blood culture Total Time Total Time Spent Total Time Spent (In Minutes): see attending attestation Discharge Plan Discharge Items Patient Disposition: Home - Self-Care Reason For Visit: CELLULITUS Discharge Diagnosis: Cellulitis Condition on Discharge: Good Activity: Resume your previous activity Non-emergency contact: Primary Care Provider Call non-emergency contact if: you have any medication questions, your pain is unusual for you, your temperature is above 101 and your wound has increased redness Follow-up/Referrals: Pablo Hernandez, [Primary Care Provider] - 05/04/23 1:30 pm Diet: Carb Consistent or DM2 Addtl Attending Provider Instructions: You were admitted to the hospital for due to discomfort and rash on the groin and scrotum. You were found with a Cellulitis (infection in the skin) You were treated with IV antibiotics during this admission. Blood culture came back positive for enterococcus faecalis. We change antibiotic to cover this. You will be discharge home with antibiotics for 4 days more A repeat of blood cultures was done today, I encourage to follow the results in 2 days the results and with your PCP less than a week It's very important to keep the area clean and dry. You will be discharge with Nystatin cream to use 2 times a day We recommend Desenex powder to use as needed to help keep the area dry. You can found this as over the counter A discharge summary will be sent to your primary care physician to ensure continuity of care. Please bring this discharge summary with you to your next office appointment so that your provider can review it at that time. Follow-up appointments: Make a follow-up appointment with your PCP within the next week. It is very important that you follow up with them shortly after discharge from the hospital. Medications: Your medication list has been reviewed and reconciled upon discharge to ensure accuracy and continuity of care. An updated list of all your medications is included with your hospital discharge paperwork. Please review this list closely, and make note of any changes. We sent a new medication called Augmentin to your pharmacy. Take 1 tablet every 8 hours for 4 days. Take your medications as instructed; do not skip a dose of your medicines. Make sure all of your doctors know every medicine you are taking (including [id number] medicines, vitamins, and supplements). Call your primary care provider before taking any new medicines (including over- the- counter medicines, vitamins, and supplements), because some of these may interact with your current medications, or may make your symptoms worse. Tell your primary care provider if you cannot afford your medications. CALL 911 OR GO TO THE EMERGENCY DEPARTMENT if you experience any of the following: Sudden, severe abdominal pain or nausea/vomiting Severe chest pain, or chest pain that radiates (moves) to your jaw or arm Sudden, severe shortness of breath or difficulty breathing Thank you for allowing us to participate in your care. Pending Studies at Discharge: Yes Studies:: Blood culture Stand-Alone Forms: My [facility], Smoking Cessation Medications and DC Order Prescriptions: New nystatin 100,000 unit/gram Cream 1 applic EXT BID 14 Days Qty: 15 0RF amoxicillin-pot clavulanate [Augmentin] 500-125 mg tablet 1 tab PO Q8H 4 Days Qty: 12 0RF Continued oxybutynin chloride 5 mg tablet extended release 24hr 5 mg PO DAILY PRN (Reason: urinary discomfort) lidocaine [DermacinRx Lidocan] 5 % adhesive patch,medicated 1 patch topical DAILY Qty: 30 0RF Rx Instructions: leave on most painful area for up to 12 hrs calcitriol 0.25 mcg capsule 0.25 mcg PO DAILY Qty: 90 3RF levothyroxine [Synthroid] 25 mcg tablet 25 mcg PO DAILYBB 90 Days Qty: 90 1RF omeprazole 40 mg capsule,delayed release(DR/EC) 40 mg PO BID 90 Days Qty: 180 1RF magnesium oxide 400 mg (241.3 mg magnesium) tablet 400 mg PO BID Qty: 180 3RF tramadol 50 mg tablet 25 mg PO Q8H PRN (Reason: pain) Qty: 15 0RF Eliquis 2.5 mg tablet 2.5 mg PO BID Qty: 180 3RF clopidogrel [Plavix] 75 mg tablet 75 mg PO DAILY Qty: 90 3RF sodium bicarbonate 650 mg tablet 650 mg PO BID Qty: 180 3RF gabapentin 100 mg capsule 100 mg PO BID Qty: 180 3RF tamsulosin 0.4 mg capsule 0.4 mg PO DAILY Qty: 90 3RF metoprolol tartrate 25 mg tablet 25 mg PO BID Qty: 180 3RF docusate sodium 100 mg tablet 100 mg PO BID Qty: 60 0RF acetaminophen [Tylenol Extra Strength] 500 mg tablet 500 mg PO Q8H PRN (Reason: Pain) loperamide 2 mg capsule 2 mg PO Q6H PRN (Reason: loose stool) Qty: 60 1RF menthol-zinc oxide [Calmoseptine] 0.44-20.6 % ointment 1 applic topical QID PRN (Reason: skin irritation on groin) Qty: 113 1RF calcium carbonate-vitamin D3 [Calcium 500 + D] 500 mg(1,250mg) -200 unit tablet 1 tab PO QAM vitamin B complex Tablet 1 tab PO QAM Probiotic 10 billion cell Capsule 10,000 mmu cells PO QDD Rx Instructions: TAKE WITH EVENING MEAL cholecalciferol (vitamin D3) 25 mcg (1,000 unit) Tablet 1,000 mcg PO DAILY multivitamin Tablet 1 tab PO DAILY ferrous sulfate 325 mg (65 mg iron) tablet,delayed release (DR/EC) 325 mg PO BID Qty: 60 1RF Rx Instructions: purchase [id number] Discharge Orders: Discharge Order (Routine); Ordered 04/23/23 Ordered By: Corinna Montemayor/Other Patient Handouts: Cellulitis Dc Admission Data Admit Date/Time: 04/20/23 19:54 Attending Provider: Liz Doe Admit Provider: Mireya Carolina Primary Care Provider: Pablo Hernandez Other Providers: Mireya Carolina Other Interventions: Discharge Summary Assessment (RN) Last Done: 04/23/23 15:19 Supervising Physician Co-Signing Physician Notes Resident Physician Supervision Note: I independently interviewed and examined the patient and verified the medina history and physical, reviewed labs and image studies and agree with resident findings and care plan. Doing much better this am. wants to go home. groin - improvement in erythema. macerated surface - improved. Groin cellulitis -Chronic urinary incontinence likely contributing. -Started on nystatin cream and oral keflex -wound care nurse - cleaned the area an reiterated keeping area clean. -Home on augmentin and nystatin cream. One Positive blood culture - E faecalis and another G + bacilli - ? contamination -E faecalis sensitive to ampicillin. Other organism not growing in 48 hours. -Suspect one positive culture likely from urinary source with active cellulitis in groin and penile area. -No fever, no rise in WBC count. -Will treat with augmentin to finish 8 days of abx course. -f/u culture drawn. will f/u on results over the wkend. Chronic urinary incontinence post penile cancer surgery -Educated on local care for wound healing and prevent worsening and recurrence. -oxybutynin prn BPH with LUTS -continue flomax and prn straight cath Resident Activity Tracking Resident Involvement: Resident Care Provided Care Provided: Adult [facility]
--- NOTE | 2023-04-23 16:13 | Electrocardiogram Report ---
Test Reason : Blood Pressure : / mmHG Vent. Rate : 077 BPM Atrial Rate : 067 BPM P-R Int : 000 ms QRS Dur : 078 ms QT Int : 372 ms P-R-T Axes : 000 003 035 degrees QTc Int : 420 ms Atrial fibrillation with premature ventricular or aberrantly conducted complexes Low voltage QRS Abnormal ECG When compared with ECG of 16-MAR-2023 16:03, Criteria for Anterior infarct are no longer Present T wave inversion no longer evident in Inferior leads T wave amplitude has decreased in Lateral leads Confirmed by Josue Pa ([id number]) on 04/23/2023 4:13:20 PM Referred By: REFERRED SELF Confirmed By:Josue Pa
== END 2023-04-23 16:33 | disposition home or self-care (01) ==
LOC: 3N 16:10 → ED 16:10 → SUATTDRO 19:54 → 3N 21:21

== ENCOUNTER 2023-04-27 16:07 | Observation (INO) ==
[2023-04-27] MEDS ORDERED: SODIUM CHLORIDE 0.9% 500 ML IV ONE (16:28)
--- NOTE | 2023-04-27 16:34 | Emergency Department Note ---
Impression & Plan Near syncope, Diarrhea, Hypotension ED Provider Note NAME: ANABELLE WILLIAMSON AGE: 88 SEX: M ARRIVES VIA: Ambulance INFORMANT: Patient ED PROVIDER(S): Oliver Hunt MD CHIEF COMPLAINT: Hypotension, dizziness, referred. PLAN: Disposition: Admit MEDICAL DECISION MAKING: The patient is a pleasant 88-year-old gentleman with a past medical history of cognitive impairment/dementia, atrial fibrillation on Eliquis, amatory dysfunction, history of ESBL UTI, CKD who presents to the emergency department via EMS from his cardiology office for evaluation of hypotension with systolic blood pressure in the 80s in the setting of being symptomatic from this with his reported shortness of breath. Patient was being seen for an outpatient assessment of intermittent complaints of chest pain referred by his PCP in the setting of recently being discharged from this facility from an admission from 04/20-04/23 for treatment of groin cellulitis with component of yeast dermatitis in the setting of a history of squamous cell carcinoma of the penis where he also was noted to have 1 positive blood culture out of 4 positive for E faecalis and another gram-positive bacilli for which she was treated with ampicillin for 2 days and discharged on Augmentin per the patient's 04/23 discharge summary reviewed by personally by me and external records. Repeat blood cultures were obtained. There was suspicion that the blood culture may have been contamination. Per review of the patient's cardiology visit, patient was referred emergency room due to his symptomatic hypotension and concern for possible recurrence of sepsis in the setting of his recent hospitalization. Additionally, additional cardiac testing can be considered inpatient once the patient stabilizes from a medical standpoint could be considered on inpatient hospitalization. The patient is a poor historian but reports feeling unwell. He reports he has been having anal leakage of stool but cannot specify how long this has been going on. The patient's did accompany him to the emergency department but left shortly after the patient's arrival due to incoming poor weather/rain. On evaluation the patient is fatigued/chronically ill-appearing but no acute distress, afebrile with heart rate in the 80s and blood pressure 110s/80s. He appears clinically dry. He has no focal neurologic deficits. EKG demonstrates atrial fibrillation without overt acute ischemia. Chest x-ray negative for acute cardiopulmonary process per my independent preliminary interpretation. WBC and platelets within normal limits. H/H similar to recent values. Chemistry without metabolic acidosis. Creatinine 2.2, similar to prior values in setting of CKD. High-sensitivity troponin 23, within normal limits. LFTs are unremarkable. Lipase not elevated. TSH 4.6, nonspecific with free T4 within normal limits. Stool BioFire was performed and was negative. Respiratory viral panel/BioFire is negative. Given the patient's symptomatic hypotension prior to arrival patient was referred to the hospital service for admission for further observation and evaluation. Dr. Dye, [facility] [place], to evaluate the patient for admission. Triage Nursing notes reviewed and agree them. Prior/external medical records reviewed per HPI. Vital Signs: reviewed Differential diagnosis: Infection, dehydration, metabolic abnormality, hypo/hyperglycemia, electrolyte disturbance, anemia, hypoxia, cardiac sources, intracerebral event, toxicologic, neurologic, as well as other pathologies. ER treatment provided: See below. Diagnostics interpreted by me: ECG: Atrial fibrillation, no overt ST elevation or depression. Cardiac Monitoring: An order for continuous cardiac monitoring was placed and demonstrated atrial fibrillation, 88 bpm, no ectopy. Laboratory studies: See below Imaging studies: See below Consultation(s): Dr. Dye, [facility] [place], to evaluate the patient for admission. HPI: The patient is a pleasant 88-year-old gentleman with a past medical history of cognitive impairment/dementia, atrial fibrillation on Eliquis, amatory dysfunction, history of ESBL UTI, CKD who presents to the emergency department via EMS from his cardiology office for evaluation of hypotension with systolic blood pressure in the 80s in the setting of being symptomatic from this with his reported shortness of breath. Patient was being seen for an outpatient assessment of intermittent complaints of chest pain referred by his PCP in the setting of recently being discharged from this facility from an admission from 04/20-04/23 for treatment of groin cellulitis with component of yeast dermatitis in the setting of a history of squamous cell carcinoma of the penis where he also was noted to have 1 positive blood culture out of 4 positive for E faecalis and another gram-positive bacilli for which she was treated with ampicillin for 2 days and discharged on Augmentin per the patient's 04/23 discharge summary reviewed by personally by me and external records. Repeat blood cultures were obtained. There was suspicion that the blood culture may have been contamination. Per review of the patient's cardiology visit, patient was referred emergency room due to his symptomatic hypotension and concern for possible recurrence of sepsis in the setting of his recent hospitalization. Additionally, additional cardiac testing can be considered inpatient once the patient stabilizes from a medical standpoint could be considered on inpatient hospitalization. The patient is a poor historian but reports feeling unwell. He reports he has been having anal leakage of stool but cannot specify how long this has been going on. The patient's did accompany him to the emergency department but left shortly after the patient's arrival due to incoming poor weather/rain. ROS: See above HPI for pertinent positives & negatives. A total of 10 systems reviewed and were otherwise negative. VITALS:See Below PHYSICAL EXAMINATION: GENERAL: Awake, alert, fatigued/chronically ill-appearing, in no distress HENT: Normocephalic, atraumatic. Oropharynx with dry mucous membranes and otherwise unremarkable. EYES: Normal conjunctiva. Sclera non-icteric. NECK: Supple. No nuchal rigidity. FROM. No JVD. RESPIRATORY: Clear to auscultation. CARDIAC: Regular rate, irregular rhythm. Extremities warm and well perfused. Pulses equal. ABDOMEN: Soft, non-distended. No tenderness to palpation. No rebound or guarding. No masses. RECTAL: Deferred. MUSCULOSKELETAL: Chest examination reveals no tenderness. The back is symmetrical on inspection without obvious abnormality. There is no CVA tenderness to palpation. No joint edema. LOWER EXTREMITIES: Calves are equal size bilaterally and non-tender. No edema. No discoloration. NEURO: Normal sensorium. No sensory or motor deficits noted. SKIN: No rash or jaundice noted. Oliver Hunt MD Past Med/Surg History Medical History Lumbosacral facet joint syndrome Discogenic lumbar pain Acute metabolic encephalopathy UTI (urinary tract infection) Rib pain on left side Syncopal episodes COVID-19 Penile cancer KENROY (acute kidney injury) Unresponsiveness Anemia of chronic disease Diarrhea SCC (squamous cell carcinoma), penis Chronic pruritus Hypothyroidism Chronic renal insufficiency, stage IV (severe) Secondary hyperparathyroidism of renal origin Orthostatic hypotension Vitamin D deficiency SBO (small bowel obstruction) Small bowel obstruction due to adhesions Rectal bleed BRBPR (bright red blood per rectum) Dementia Hyperkalemia Acute cholecystitis Substernal chest pain resolved per pt Dysphagia "trouble keeping foods down" Fall walker and cane -- fall risk. Colitis Concussion Degenerative disc disease Osteoarthritis History of bleeding ulcers Diabetes mellitus, type 2 diet controlled Hx of migraines Hx of sleep apnea no device Atrial fibrillation no cardioversions/ no pacer. treated with medication and follows with PCP Balanoposthitis Phimosis DDD (degenerative disc disease), lumbar Atrial fibrillation (04/22/12) Peptic ulcer disease GERD (gastroesophageal reflux disease) BPH w urinary obs/LUTS Anal fistula Fall LAST FALL 1 WEEK AGO Hypoglycemia Bradycardia Surgical History S/P laparoscopic cholecystectomy (09/17/20) Laparoscopic Cholecystectomy with Cholangiogram with akira drain 09/17/20 Dr. Atkinson Hx of circumcision 2 yrs ago H/O knee surgery "MULTIPLE KNEE SURGERIES"- R/L History of total shoulder replacement LEFT History of total knee replacement RT/LEFT History of esophagogastroduodenoscopy (EGD) History of colonoscopy History of tooth extraction Hx of transurethral resection of prostate H/O gastric bypass 2004 Family History Sister Family history of diabetes mellitus Social History Smoking Status: Former smoker Tobacco Type: Cigarettes Second Hand Exposure: No; Do You Dip or Chew Tobacco: No; Hx Alcohol Use: No Hx Substance Use: No Preferred Language: Samoan Communication Ability: Effective Communication Ability Comment: can be forgetful Teller Required: No Beliefs That Will Affect Care: None marital status: Current Living Situation: Spouse Current Living Situation Comment: At home with current occupational status: retired Other Information That Helps Us Care for You: No Feels Safe at Home: Yes Safety Concerns: Feels Safe At This Time Diet: regular Seatbelt Use: always Assistive Devices: Walker Allergies Allergies Allergy/AdvReac Type Severity Reaction Status Date / Time iron [From Venofer] AdvReac Mild warm Verified 04/27/23 18:01 sensation/flushing, discomfort in arm in which it was i Home Meds Home Medications Medication Instructions Recorded Confirmed calcium carbonate 500 mg-vitamin 1 tab PO QAM 12/18/19 04/27/23 D3 5 mcg (200 unit) tablet (Calcium 500 + D) vitamin B complex 1 tab PO QAM 12/18/19 04/27/23 Lactobacillus acidophilus 10 10,000 mmu cells PO QDD 01/18/21 04/27/23 billion cell capsule (Probiotic) multivitamin 1 tab PO DAILY 08/01/22 04/27/23 acetaminophen 500 mg tablet 500 mg PO Q8H PRN Pain 12/22/22 04/27/23 (Tylenol Extra Strength) oxybutynin chloride 5 mg 5 mg PO DAILY PRN urinary 03/22/23 04/27/23 tablet,extended release 24 hr discomfort ferrous sulfate 325 mg (65 mg 325 mg PO DAILY 04/27/23 04/27/23 iron) tablet,delayed release Previous Rx's Medication Instructions Recorded gabapentin 100 mg capsule 100 mg PO BID #180 caps 06/19/22 tamsulosin 0.4 mg capsule 0.4 mg PO DAILY #90 caps 06/19/22 sodium bicarbonate 650 mg tablet 650 mg PO BID Stomach upset #180 08/10/22 tabs calcitriol 0.25 mcg capsule 0.25 mcg PO DAILY #90 caps 10/06/22 levothyroxine 25 mcg tablet 25 mcg PO DAILYBB 90 days #90 tabs 10/12/22 (Synthroid) magnesium oxide 400 mg (241.3 mg 400 mg PO BID #180 tabs 11/23/22 magnesium) tablet omeprazole 40 mg capsule,delayed 40 mg PO BID 90 days #180 caps 11/23/22 release metoprolol tartrate 25 mg tablet 25 mg PO BID #180 tabs 01/25/23 tramadol 50 mg tablet 25 mg (1/2 x 50 mg) PO Q8H PRN 03/04/23 pain #15 tabs loperamide 2 mg capsule 2 mg PO Q6H PRN loose stool #60 03/29/23 caps menthol 0.44 %-zinc oxide 20.6 % 1 applic topical QID PRN skin 03/29/23 topical ointment (Calmoseptine) irritation on groin #113 grams lidocaine 5 % topical patch 1 patch topical DAILY #30 ea 04/14/23 (DermacinRx Lidocan) apixaban 2.5 mg tablet (Eliquis) 2.5 mg PO BID #180 tabs 04/15/23 clopidogrel 75 mg tablet (Plavix) 75 mg PO DAILY #90 tabs 04/15/23 nystatin 100,000 unit/gram topical 1 applic EXT BID 14 days #15 grams 04/23/23 cream Results & Data (ED) Vital Signs Vital Signs - 24 hr 04/27/23 16:00 04/27/23 16:09 04/27/23 16:10 Temperature 36.4 C L Temperature Source Oral Pulse Rate 113 H 86 86 Pulse Rate [Apical] Pulse Rate from SpO2 Sensor 80 Pulse Rhythm Irregular Pulse Rhythm [Apical] Pulse Strength Normal Pulse Strength [Apical] Respiratory Rate 29 H 21 Respiratory Effort / Characteristics Non-Labored Spontaneous Respiratory Depth Normal Respiratory Pattern Regular Blood Pressure 116/74 Blood Pressure [Right Arm] Blood Pressure Mean 88 Blood Pressure Mean [Right Arm] Blood Pressure Position Sitting Blood Pressure Position [Right Arm] Pulse Oximetry 96 99 Oxygen Delivery Method Room Air Sepsis Recent Fever Within 48 Hours No Sepsis New/Unexplained Change in Mental Status N/A Sepsis Action Taken by Nursing Physician Notified 04/27/23 16:10 04/27/23 16:20 04/27/23 16:25 Temperature Temperature Source Pulse Rate 95 H 88 92 H Pulse Rate [Apical] Pulse Rate from SpO2 Sensor 89 87 Pulse Rhythm Irregular Pulse Rhythm [Apical] Pulse Strength Pulse Strength [Apical] Respiratory Rate 13 18 21 Respiratory Effort / Characteristics Respiratory Depth Respiratory Pattern Blood Pressure Blood Pressure [Right Arm] Blood Pressure Mean Blood Pressure Mean [Right Arm] Blood Pressure Position Blood Pressure Position [Right Arm] Pulse Oximetry 99 99 99 Oxygen Delivery Method Room Air Sepsis Recent Fever Within 48 Hours Sepsis New/Unexplained Change in Mental Status Sepsis Action Taken by Nursing 04/27/23 16:30 04/27/23 16:40 04/27/23 16:50 Temperature Temperature Source Pulse Rate 85 77 88 Pulse Rate [Apical] Pulse Rate from SpO2 Sensor 90 78 Pulse Rhythm Pulse Rhythm [Apical] Pulse Strength Pulse Strength [Apical] Respiratory Rate 12 13 38 H Respiratory Effort / Characteristics Respiratory Depth Respiratory Pattern Blood Pressure 97/57 L Blood Pressure [Right Arm] Blood Pressure Mean 70 Blood Pressure Mean [Right Arm] Blood Pressure Position Blood Pressure Position [Right Arm] Pulse Oximetry 97 97 Oxygen Delivery Method Sepsis Recent Fever Within 48 Hours Sepsis New/Unexplained Change in Mental Status Sepsis Action Taken by Nursing 04/27/23 17:00 04/27/23 17:10 04/27/23 17:20 Temperature Temperature Source Pulse Rate 112 H 100 H 98 H Pulse Rate [Apical] Pulse Rate from SpO2 Sensor 84 97 H 89 Pulse Rhythm Pulse Rhythm [Apical] Pulse Strength Pulse Strength [Apical] Respiratory Rate 30 H 26 H 19 Respiratory Effort / Characteristics Respiratory Depth Respiratory Pattern Blood Pressure 100/79 Blood Pressure [Right Arm] Blood Pressure Mean 86 Blood Pressure Mean [Right Arm] Blood Pressure Position Blood Pressure Position [Right Arm] Pulse Oximetry 85 L 100 98 Oxygen Delivery Method Sepsis Recent Fever Within 48 Hours Sepsis New/Unexplained Change in Mental Status Sepsis Action Taken by Nursing 04/27/23 17:30 04/27/23 17:33 04/27/23 17:34 Temperature Temperature Source Pulse Rate 179 H 84 92 H Pulse Rate [Apical] Pulse Rate from SpO2 Sensor 96 H 88 89 Pulse Rhythm Pulse Rhythm [Apical] Pulse Strength Pulse Strength [Apical] Respiratory Rate 18 23 23 Respiratory Effort / Characteristics Respiratory Depth Respiratory Pattern Blood Pressure 155/118 H 119/80 Blood Pressure [Right Arm] Blood Pressure Mean 130 93 Blood Pressure Mean [Right Arm] Blood Pressure Position Blood Pressure Position [Right Arm] Pulse Oximetry 96 100 100 Oxygen Delivery Method Sepsis Recent Fever Within 48 Hours Sepsis New/Unexplained Change in Mental Status Sepsis Action Taken by Nursing 04/27/23 17:35 04/27/23 17:35 04/27/23 17:40 Temperature Temperature Source Pulse Rate 74 Pulse Rate [Apical] 96 H Pulse Rate from SpO2 Sensor 87 Pulse Rhythm Pulse Rhythm [Apical] Pulse Strength Pulse Strength [Apical] Respiratory Rate 18 17 Respiratory Effort / Characteristics Non-Labored Spontaneous Respiratory Depth Normal Respiratory Pattern Regular Blood Pressure Blood Pressure [Right Arm] 119/80 Blood Pressure Mean Blood Pressure Mean [Right Arm] 93 Blood Pressure Position Blood Pressure Position [Right Arm] Sitting Pulse Oximetry 100 99 95 Oxygen Delivery Method Room Air Room Air Room Air Sepsis Recent Fever Within 48 Hours Sepsis New/Unexplained Change in Mental Status Sepsis Action Taken by Nursing 04/27/23 17:50 04/27/23 18:00 04/27/23 18:10 Temperature Temperature Source Pulse Rate 103 H 105 H Pulse Rate [Apical] Pulse Rate from SpO2 Sensor Pulse Rhythm Pulse Rhythm [Apical] Pulse Strength Pulse Strength [Apical] Respiratory Rate 17 30 H 26 H Respiratory Effort / Characteristics Respiratory Depth Respiratory Pattern Blood Pressure 112/82 Blood Pressure [Right Arm] Blood Pressure Mean 92 Blood Pressure Mean [Right Arm] Blood Pressure Position Blood Pressure Position [Right Arm] Pulse Oximetry 96 Oxygen Delivery Method Room Air Sepsis Recent Fever Within 48 Hours Sepsis New/Unexplained Change in Mental Status Sepsis Action Taken by Nursing 04/27/23 18:20 04/27/23 18:30 04/27/23 18:31 Temperature Temperature Source Pulse Rate 83 109 H Pulse Rate [Apical] Pulse Rate from SpO2 Sensor Pulse Rhythm Pulse Rhythm [Apical] Pulse Strength Pulse Strength [Apical] Respiratory Rate 16 26 H 17 Respiratory Effort / Characteristics Respiratory Depth Respiratory Pattern Blood Pressure 120/91 Blood Pressure [Right Arm] Blood Pressure Mean 100 Blood Pressure Mean [Right Arm] Blood Pressure Position Blood Pressure Position [Right Arm] Pulse Oximetry 99 Oxygen Delivery Method Room Air Sepsis Recent Fever Within 48 Hours Sepsis New/Unexplained Change in Mental Status Sepsis Action Taken by Nursing 04/27/23 18:40 04/27/23 18:50 04/27/23 19:00 Temperature 36.8 C Temperature Source Oral Pulse Rate 108 H 96 H Pulse Rate [Apical] 98 H Pulse Rate from SpO2 Sensor Pulse Rhythm Pulse Rhythm [Apical] Irregular Pulse Strength Pulse Strength [Apical] Normal Respiratory Rate 27 H 30 H 19 Respiratory Effort / Characteristics Non-Labored Spontaneous Respiratory Depth Normal Respiratory Pattern Regular Blood Pressure Blood Pressure [Right Arm] 106/77 Blood Pressure Mean Blood Pressure Mean [Right Arm] 86 Blood Pressure Position Blood Pressure Position [Right Arm] Lying Pulse Oximetry 96 Oxygen Delivery Method Room Air Sepsis Recent Fever Within 48 Hours Sepsis New/Unexplained Change in Mental Status Sepsis Action Taken by Nursing 04/27/23 19:00 04/27/23 19:01 04/27/23 19:10 Temperature Temperature Source Pulse Rate 97 H 90 102 H Pulse Rate [Apical] Pulse Rate from SpO2 Sensor Pulse Rhythm Pulse Rhythm [Apical] Pulse Strength Pulse Strength [Apical] Respiratory Rate 29 H 31 H 23 Respiratory Effort / Characteristics Respiratory Depth Respiratory Pattern Blood Pressure 106/77 Blood Pressure [Right Arm] Blood Pressure Mean 86 Blood Pressure Mean [Right Arm] Blood Pressure Position Blood Pressure Position [Right Arm] Pulse Oximetry 98 96 Oxygen Delivery Method Room Air Room Air Sepsis Recent Fever Within 48 Hours Sepsis New/Unexplained Change in Mental Status Sepsis Action Taken by Nursing 04/27/23 19:20 04/27/23 19:30 04/27/23 20:05 Temperature Temperature Source Pulse Rate 114 H 88 100 H Pulse Rate [Apical] Pulse Rate from SpO2 Sensor Pulse Rhythm Pulse Rhythm [Apical] Pulse Strength Pulse Strength [Apical] Respiratory Rate 20 17 Respiratory Effort / Characteristics Respiratory Depth Respiratory Pattern Blood Pressure Blood Pressure [Right Arm] Blood Pressure Mean Blood Pressure Mean [Right Arm] Blood Pressure Position Blood Pressure Position [Right Arm] Pulse Oximetry 98 Oxygen Delivery Method Room Air Sepsis Recent Fever Within 48 Hours Sepsis New/Unexplained Change in Mental Status Sepsis Action Taken by Nursing Laboratory Data Attestation: I reviewed the patient's lab results. 04/27/23 16:09 04/27/23 16:09 Lab Results 04/27/23 04/27/23 Range/Units 16:09 18:56 WBC 7.37 (4.8-10.8) K/ul RBC 3.44 L (4.70-6.10) M/uL Hgb 10.8 L (14.0-18.0) g/dl Hct 34.4 L (42.0-52.0) % MCV 100.0 (80.0-100.0) fL MCH 31.4 (25.0-34.0) pg MCHC 31.4 L (32.0-36.0) g/dL RDW Std Deviation 59.4 H (36.4-46.3) fL RDW Coeff of Yinka 16.3 H (11.5-14.5) % Plt Count 279 (130-400) K/uL MPV 10.2 (9.4-12.4) fL Immature Gran % (Auto) 0.5 % Neut % (Auto) 63.4 % Lymph % (Auto) 25.0 % [place] % (Auto) 8.4 % Eos % (Auto) 1.9 % Baso % (Auto) 0.8 % Neut # (Auto) 4.67 (1.40-6.50) K/uL Lymph # (Auto) 1.84 (1.20-3.40) K/uL [place] # (Auto) 0.62 H (0.11-0.59) K/uL Eos # (Auto) 0.14 (0.00-0.50) K/uL Baso # (Auto) 0.06 (0.00-0.20) K/uL Immature Gran # (Auto) 0.04 (0.01-0.20) K/uL Sodium 144 (136-145) mmol/L Potassium 4.3 (3.5-5.1) mmol/L Chloride 119 H (98-107) mmol/L Carbon Dioxide 21 (21-32) mmol/L Anion Gap 4 (3-11) BUN 22 (6-23) mg/dl Creatinine 2.23 H (0.6-1.4) mg/dl Est Cr Clr Drug Dosing 27.1 ml/min Est GFR ( Amer) 29.6 ml/min Est GFR (Non-Af Amer) 25.6 ml/min BUN/Creatinine Ratio 9.9 L (10-20) Glucose 86 (70-99(Fasting)) mg/dl Calcium 8.3 L (8.6-10.3) mg/dl Phosphorus 3.3 (2.5-4.9) mg/dl Magnesium 2.0 (1.7-2.4) mg/dl Total Bilirubin 0.3 (0.2-1.0) mg/dl AST 19 (13-39) U/L ALT 20 (7-52) U/L Alkaline Phosphatase 84 (34-104) U/L Troponin I High Sens 8.3 (0-20) pg/ml Total Protein 5.8 L (6.0-8.3) gm/dl Albumin 2.6 L (3.4-5.0) gm/dl Globulin 3.2 (2.5-4.0) gm/dl Albumin/Globulin Ratio 0.8 L (0.9-2) Lipase 13 (11-82) U/L TSH 4.622 H (0.300-4.500) uIu/ml Free T4 1.10 (0.61-1.60) ng/dl Adenovirus (PCR) Not Detected (NotDetected) B. pertussis DNA (PCR) Not Detected (NotDetected) B.parapertussis DNA PCR Not Detected (NotDetected) C. pneumoniae DNA (PCR) Not Detected (NotDetected) Coronavirus OC43 (PCR) Not Detected (NotDetected) Coronavirus HKU1 (PCR) Not Detected (NotDetected) Coronavirus 229E (PCR) Not Detected (NotDetected) SARS-CoV-2 (PCR) Not Detected (NotDetected) Coronavirus NL63 (PCR) Not Detected (NotDetected) Human Metapneumovir PCR Not Detected (NotDetected) Influenza Type A (PCR) Not Detected (NotDetected) Influenza Type B (PCR) Not Detected (NotDetected) M. pneumoniae (PCR) Not Detected (NotDetected) Parainfluenza 1 (PCR) Not Detected (NotDetected) Parainfluenza 2 (PCR) Not Detected (NotDetected) Parainfluenza 3 (PCR) Not Detected (NotDetected) Parainfluenza 4 (PCR) Not Detected (NotDetected) RSV (PCR) Not Detected (NotDetected) Entero/Rhino (PCR) Not Detected (NotDetected) Administered Medications Apixaban (Apixaban 2.5 Mg Tab) 2.5 mg PO BID SHY Stop: 05/28/23 00:00 Last Admin: 04/28/23 01:49 Dose: 2.5 mg Documented By: THAD Gabapentin (Gabapentin 100 Mg Cap) 100 mg PO BID SHY Stop: 05/28/23 00:00 Last Admin: 04/28/23 01:50 Dose: 100 mg Documented By: THAD Magnesium Oxide (Magnesium Oxide 400 Mg Tab) 400 mg PO BID SHY Stop: 05/28/23 00:00 Last Admin: 04/28/23 01:49 Dose: 400 mg Documented By: THAD Metoprolol Tartrate (Metoprolol Tartrate 25 Mg Tab) 25 mg PO BID SHY Stop: 05/28/23 00:00 Last Admin: 04/28/23 01:49 Dose: 25 mg Documented By: THAD Nystatin (Nystatin Cr 15 Gm Tube) 1 appln EXT BID SHY Stop: 05/28/23 00:00 Last Admin: 04/28/23 01:50 Dose: 1 appln Documented By: THAD Discontinued Medications Sodium Chloride (Nss) 500 mls @ 999 mls/hr IV .Q31M ONE Stop: 04/27/23 16:58 Last Infusion: 04/27/23 19:50 Dose: Infused Documented By: PARENT PARTNER Admin: 04/27/23 17:53 Dose: 999 mls/hr Documented By: PARENT PARTNER Imaging Data Radiologist's Impression: Chest X-Ray 04/27/23 16:25 XR chest 1V portable CLINICAL HISTORY: weakness TECHNIQUE: Single frontal radiograph of the chest was obtained. 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 Calcified aortic knob is seen. The lungs are clear. No evidence of pleural effusion or pneumothorax. IMPRESSION: No acute chest disease. ACT 112: Negative or not required by law. Electronically signed by: Anton Mensah M.D. 04/27/2023 4:40 PM Discharge Plan Visit Data Chief Complaint: Hypotension Stated Complaint: HYPOTENSIVE ED Provider: Oliver Hunt Discharge Problem: Near syncope, Diarrhea, Hypotension Patient Disposition: Admitted As Inpatient Discharge Instructions Interventions: ED Discharge Assessment Last Done: 04/28/23 00:00 Discharge Problem: Diarrhea Qualifiers: Diarrhea type: unspecified type Qualified Code(s): R19.7 - Diarrhea, unspecified Hypotension Qualifiers: Hypotension type: unspecified hypotension type Qualified Code(s): I95.9 - Hypotension, unspecified
--- NOTE | 2023-04-27 16:41 | XRay Report ---
XR chest 1V portable CLINICAL HISTORY: weakness TECHNIQUE: Single frontal radiograph of the chest was obtained. 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 Calcified aortic knob is seen. The lungs are clear. No evidenc e of pleural effusion or pneumothorax. IMPRESSION: No acute chest disease. ACT 112: Negative or not required by law. Electronically signed by: Anton Mensah M.D. 04/27/2023 4:40 PM
[2023-04-27 16:45] LABS: Basophils # (auto) 0.06 K/uL (0.00-0.20); Basophils % (auto) 0.8 %; Eosinophils # (auto) 0.14 K/uL (0.00-0.50); Eosinophils % (auto) 1.9 %; Hematocrit (blood only) 34.4 % (42.0-52.0); Hemoglobin 10.8 g/dl (14.0-18.0); Immature Granulocytes # (auto) 0.04 K/uL (0.01-0.20); Immature Granulocytes % (auto) 0.5 %; Lymphocytes # (auto) 1.84 K/uL (1.20-3.40); Mean Corpuscular Hemoglobin 31.4 pg (25.0-34.0); Mean Corpuscular Hgb Conc 31.4 g/dL (32.0-36.0); Mean Platelet Volume 10.2 fL (9.4-12.4); Monocytes # (auto) 0.62 K/uL (0.11-0.59); Monocytes % (auto) 8.4 %; Neutrophils # (auto) 4.67 K/uL (1.40-6.50); Neutrophils % (auto) 63.4 %; Platelet Count 279 K/uL (130-400); RDW Coefficient of Variation 16.3 % (11.5-14.5); RDW Standard Deviation 59.4 fL (36.4-46.3); Red Blood Count 3.44 M/uL (4.70-6.10); White Blood Count 7.37 K/ul (4.8-10.8)
[2023-04-27 17:00] LABS: Albumin Globulin Ratio 0.8 (0.9-2); Albumin Level 2.6 gm/dl (3.4-5.0); BUN Creatinine Ratio 9.9 (10-20); Bilirubin,Total 0.3 mg/dl (0.2-1.0); Calcium 8.3 mg/dl (8.6-10.3); Creatinine Clr Calc Pharmacy 27.1 ml/min; Est GFR (African American) 29.6 ml/min; Est GFR (Non-African American) 25.6 ml/min; Globulin 3.2 gm/dl (2.5-4.0); Phosphorus 3.3 mg/dl (2.5-4.9); Potassium 4.3 mmol/L (3.5-5.1); Total Protein 5.8 gm/dl (6.0-8.3)
[2023-04-27 17:05] LABS: Troponin I High Sensitivity 8.3 pg/ml (0-20)
[2023-04-27 17:14] LABS: Thyroid Stimulating Hormone 4.622 uIu/ml (0.300-4.500)
[2023-04-27 17:48] LABS: T4 Free Thyroxine 1.1 ng/dl (0.61-1.60)
[2023-04-27 20:04] LABS: Adenovirus PCR Not Detected (NotDetected); Bordetella parapertussis PCR Not Detected (NotDetected); Bordetella pertussis PCR Not Detected (NotDetected); Chlamydia pneumoniae PCR Not Detected (NotDetected); Coronavirus 229E PCR Not Detected (NotDetected); Coronavirus CoV-2 (COVID19)PCR Not Detected (NotDetected); Coronavirus HKU1 PCR Not Detected (NotDetected); Coronavirus NL63 PCR Not Detected (NotDetected); Coronavirus OC43PCR Not Detected (NotDetected); Human Metapneumovirus PCR Not Detected (NotDetected); Influenza A PCR Not Detected (NotDetected); Influenza B PCR Not Detected (NotDetected); Mycoplasma pneumoniae PCR Not Detected (NotDetected); Parainfluenza Virus 1 PCR Not Detected (NotDetected); Parainfluenza Virus 2 PCR Not Detected (NotDetected); Parainfluenza Virus 3 PCR Not Detected (NotDetected); Parainfluenza Virus 4 PCR Not Detected (NotDetected); Respiratory Syncytial VirusPCR Not Detected (NotDetected); Rhinovirus/Enterovirus PCR Not Detected (NotDetected)
--- NOTE | 2023-04-27 20:14 | History & Physical Report ---
Date of Service April 27, 2023 Assessment & Plan (1) Hypotension: Plan: 88 year old male admitted for hypotension in the office setting. Hypotension: -Hypotensive episode in the cardiology office to 80/50 earlier today. -Patient has had soft to normal range pressures in the ER, MAP has been above 65. -WBC 7.37, Hgb 10.8, CMP with baseline creatinine, electrolytes within normal limits. -At the current time his rash is better, no active discharge, I do not believe this to be a result of infection/sepsis. -TSH mildly elevated but T4 within normal limits. -HR 70's at the time of hypotensive episode so likely not due to patient's A. Fib, rate has been well controlled with metoprolol. -Troponin negative. -Last echocardiogram 08/2022, EF 60-65% without wall motion abnormality. Ordered repeat echo to check morphology/wall motion. -Patient endorsed he usually drinks 6-8 glasses of water per day, may have been mildly dehydrated vs orthostatic hypotension at the time. -Per cardiology earlier today could do lexiscan stress test if blood pressures stabilize or repeat echocardiogram. -Since patient's pressures have normalized from his outpatient visit if they remain stable, in the face of no red flag symptoms and negative trop, could offer inpatient vs outpatient stress testing. -Patient was wanting to return home as soon as he could to avoid decompensation. However if he exhibits signs of sepsis into the night or morning may be worth it to obtain sepsis workup at that point. -Admit to telemetry for monitoring. Groin Rash: -Rash appears mild on physical exam. Better than previous hospital stay per patient. -Continue topical anti-fungal measures. -Low suspicion for active infection. Anemia: -Chronic, at baseline. Continue to montor. Diarrhea: -Patient has new diarrhea today, in the hospital. Likely as a result of the hullabaloo involved with being in the hospital as he says he gets this when he's excited. -No white count, off antibiotics, continue to monitor. CKD: -Creatinine at baseline, chronic issue, continue to monitor. Atrial fibrillation: -Rate controlled, chronic, continue metoprolol and eliquis. BPPV: -Chronic, continue home tamsulosin and oxybutynin. Prediabetes: -Glucose well controlled with diet. Last A1c 6.5, well within goal for age (<8) -Continue to monitor with glucose checks. Can add on insulin coverage if glucose rises. F/E/N/GI: Carb consistent T2DM. DVT Prophylaxis: Continue home Eliquis Code status: Full code, discussed with patient. Dispo: Telemetry. (2) Groin rash: (3) Anemia: (4) Atrial fibrillation: (5) Diarrhea: (6) CKD (chronic kidney disease): (7) Prediabetes: (8) Benign prostatic hyperplasia with urinary obstruction: History of Present Illness Chief Complaint: Hypotension Primary Care Provider: Pablo Hernandez DO Cl is an 88 year old male w/ PmHx squamous cell carcinoma of the penis w/ [place] [facility] [place] atrial fibrillation on Eliquis, CKD stage IV, orthostatic hypotension coming to the ER from cardiology office outpatient due to hypotension. Patient was recently admitted to the hospital from 04/20-04/23 for groin cellulitis treated with Keflex and nystatin cream. Post discharge patient states he has been feeling really well, the best he's felt in the past 5 years or so. This morning he was at the cardiology office for an appointment when he exhibited low blood pressure 80/50 w/ HR 76 as well as exhibiting some mild shortness fo breath. Patient states he did feel some mild shortness of breath that morning that was new but denies any other symptoms. Denies fevers, chills, chest pain, headaches, congestion, cough, dysuria. He did not have constipation or diarrhea prior to coming in but says he has a bit of diarrhea now that he usually gets when he's excited or something out of the ordinary is happening. He states that he would like to go home as soon as he can since he would hate to just stay in a hospital for more time and decondition. He has not had any worsening of the groin rash and stated it is doing better. Patient has a history of A. fib from his teenage years and is on Eliquis chronically. In the ER Hgb 10.8, WBC 7.37, CMP unremarkable other than low albumin, protein, as well as CKD however his creatinine is at baseline. TSH 4.622 but Free T4 1.1 0. Respiratory panel grossly negative. CXR negative for acute chest process. Allergies Allergy/AdvReac Type Severity Reaction Status Date / Time iron [From Venofer] AdvReac Mild warm Verified 04/27/23 18:01 sensation/flushing, discomfort in arm in which it was i Home Medications Medication Instructions Recorded Confirmed Type calcium carbonate 500 mg-vitamin 1 tab PO QAM 12/18/19 04/27/23 History D3 5 mcg (200 unit) tablet (Calcium 500 + D) vitamin B complex 1 tab PO QAM 12/18/19 04/27/23 History Lactobacillus acidophilus 10 10,000 mmu cells PO QDD 01/18/21 04/27/23 History billion cell capsule (Probiotic) gabapentin 100 mg capsule 100 mg PO BID #180 caps 06/19/22 04/27/23 Rx tamsulosin 0.4 mg capsule 0.4 mg PO DAILY #90 caps 06/19/22 04/27/23 Rx multivitamin 1 tab PO DAILY 08/01/22 04/27/23 History sodium bicarbonate 650 mg tablet 650 mg PO BID Stomach upset #180 08/10/22 04/27/23 Rx tabs calcitriol 0.25 mcg capsule 0.25 mcg PO DAILY #90 caps 10/06/22 04/27/23 Rx levothyroxine 25 mcg tablet 25 mcg PO DAILYBB 90 days #90 tabs 10/12/22 04/27/23 Rx (Synthroid) magnesium oxide 400 mg (241.3 mg 400 mg PO BID #180 tabs 11/23/22 04/27/23 Rx magnesium) tablet omeprazole 40 mg capsule,delayed 40 mg PO BID 90 days #180 caps 11/23/22 04/27/23 Rx release acetaminophen 500 mg tablet 500 mg PO Q8H PRN Pain 12/22/22 04/27/23 History (Tylenol Extra Strength) metoprolol tartrate 25 mg tablet 25 mg PO BID #180 tabs 01/25/23 04/27/23 Rx tramadol 50 mg tablet 25 mg (1/2 x 50 mg) PO Q8H PRN 03/04/23 04/27/23 Rx pain #15 tabs oxybutynin chloride 5 mg 5 mg PO DAILY PRN urinary 03/22/23 04/27/23 History tablet,extended release 24 hr discomfort loperamide 2 mg capsule 2 mg PO Q6H PRN loose stool #60 03/29/23 04/27/23 Rx caps menthol 0.44 %-zinc oxide 20.6 % 1 applic topical QID PRN skin 03/29/23 04/27/23 Rx topical ointment (Calmoseptine) irritation on groin #113 grams lidocaine 5 % topical patch 1 patch topical DAILY #30 ea 04/14/23 04/27/23 Rx (DermacinRx Lidocan) apixaban 2.5 mg tablet (Eliquis) 2.5 mg PO BID #180 tabs 04/15/23 04/27/23 Rx clopidogrel 75 mg tablet (Plavix) 75 mg PO DAILY #90 tabs 04/15/23 04/27/23 Rx nystatin 100,000 unit/gram topical 1 applic EXT BID 14 days #15 grams 04/23/23 04/27/23 Rx cream ferrous sulfate 325 mg (65 mg 325 mg PO DAILY 04/27/23 04/27/23 History iron) tablet,delayed release Past Med/Surg History Medical History Lumbosacral facet joint syndrome Discogenic lumbar pain Acute metabolic encephalopathy UTI (urinary tract infection) Rib pain on left side Syncopal episodes COVID-19 Penile cancer KENROY (acute kidney injury) Unresponsiveness Anemia of chronic disease Diarrhea SCC (squamous cell carcinoma), penis Chronic pruritus Hypothyroidism Chronic renal insufficiency, stage IV (severe) Secondary hyperparathyroidism of renal origin Orthostatic hypotension Vitamin D deficiency SBO (small bowel obstruction) Small bowel obstruction due to adhesions Rectal bleed BRBPR (bright red blood per rectum) Dementia Hyperkalemia Acute cholecystitis Substernal chest pain resolved per pt Dysphagia "trouble keeping foods down" Fall walker and cane -- fall risk. Colitis Concussion Degenerative disc disease Osteoarthritis History of bleeding ulcers Diabetes mellitus, type 2 diet controlled Hx of migraines Hx of sleep apnea no device Atrial fibrillation no cardioversions/ no pacer. treated with medication and follows with PCP Balanoposthitis Phimosis DDD (degenerative disc disease), lumbar Atrial fibrillation (04/22/12) Peptic ulcer disease GERD (gastroesophageal reflux disease) BPH w urinary obs/LUTS Anal fistula Fall LAST FALL 1 WEEK AGO Hypoglycemia Bradycardia Surgical History S/P laparoscopic cholecystectomy (09/17/20) Laparoscopic Cholecystectomy with Cholangiogram with akira drain 09/17/20 Dr. Atkinson Hx of circumcision 2 yrs ago H/O knee surgery "MULTIPLE KNEE SURGERIES"- R/L History of total shoulder replacement LEFT History of total knee replacement RT/LEFT History of esophagogastroduodenoscopy (EGD) History of colonoscopy History of tooth extraction Hx of transurethral resection of prostate H/O gastric bypass 2004 Family History Sister Family history of diabetes mellitus Social History Smoking Status: Former smoker Tobacco Type: Cigarettes Second Hand Exposure: No; Do You Dip or Chew Tobacco: No; Hx Alcohol Use: No Hx Substance Use: No Preferred Language: Persian Communication Ability: Effective Communication Ability Comment: can be forgetful Adventure Therapist Required: No Beliefs That Will Affect Care: None marital status: Current Living Situation: Spouse Current Living Situation Comment: At home with current occupational status: retired Other Information That Helps Us Care for You: No Feels Safe at Home: Yes Safety Concerns: Feels Safe At This Time Diet: regular Seatbelt Use: always Assistive Devices: Walker Review of Systems Review of Systems: As per HPI. Physical Exam Constitutional: WD/WN, vitals as above Eyes: PERRL, conjunctivae normal, anicteric sclerae Respiratory: normal respiratory effort, lungs clear to auscultation Cardiovascular: Rate/Rhythm: + irregularly irregular Heart Sounds: normal S1 and normal S2 No peripheral edema. Gastrointestinal (Abdomen): normal bowel sounds, soft, nontender, no hepatosplenomegaly Skin: Groin rash with mild erythema however no discharge or major irritation noted. Psychiatric: A+Ox3, euthymic affect Results & Data Results & Data Vital Signs (Past 12 Hours) Vital Signs Temp Pulse Pulse Resp BP BP Pulse Ox 04/27/23 19:30 88 17 98 04/27/23 19:20 114 H 20 04/27/23 19:10 102 H 23 04/27/23 19:01 90 31 H 106/77 96 04/27/23 19:00 97 H 29 H 98 04/27/23 19:00 36.8 C 98 H 19 106/77 96 04/27/23 18:50 96 H 30 H 04/27/23 18:40 108 H 27 H 04/27/23 18:31 17 120/91 04/27/23 18:30 109 H 26 H 99 04/27/23 18:20 83 16 04/27/23 18:10 105 H 26 H 04/27/23 18:00 103 H 30 H 112/82 96 04/27/23 17:50 17 04/27/23 17:40 74 17 95 04/27/23 17:35 96 H 18 119/80 99 04/27/23 17:35 100 04/27/23 17:34 92 H 23 119/80 100 04/27/23 17:33 84 23 155/118 H 100 04/27/23 17:30 179 H 18 96 04/27/23 17:20 98 H 19 98 04/27/23 17:10 100 H 26 H 100 04/27/23 17:00 112 H 30 H 100/79 85 L 04/27/23 16:50 88 38 H 04/27/23 16:40 77 13 97 04/27/23 16:30 85 12 97/57 L 97 04/27/23 16:25 92 H 21 99 04/27/23 16:20 88 18 99 04/27/23 16:10 95 H 13 99 04/27/23 16:10 86 04/27/23 16:09 86 21 99 04/27/23 16:00 36.4 C L 113 H 29 H 116/74 96 O2 Del Method 04/27/23 19:30 Room Air 04/27/23 19:20 04/27/23 19:10 04/27/23 19:01 Room Air 04/27/23 19:00 Room Air 04/27/23 19:00 Room Air 04/27/23 18:50 04/27/23 18:40 04/27/23 18:31 04/27/23 18:30 Room Air 04/27/23 18:20 04/27/23 18:10 04/27/23 18:00 Room Air 04/27/23 17:50 04/27/23 17:40 Room Air 04/27/23 17:35 Room Air 04/27/23 17:35 Room Air 04/27/23 17:34 04/27/23 17:33 04/27/23 17:30 04/27/23 17:20 04/27/23 17:10 04/27/23 17:00 04/27/23 16:50 04/27/23 16:40 04/27/23 16:30 04/27/23 16:25 Room Air 04/27/23 16:20 04/27/23 16:10 04/27/23 16:10 04/27/23 16:09 04/27/23 16:00 Room Air Supervising Physician Co-Signing Physician Notes Attending addendum: I have physically seen this patient, have supervised the medical residents activities, and agree with the H&P unless as otherwise noted. Assessment and Plan: Hypotension/atrial fibrillation/atypical chest pain- Referred by his operating room orderly for concerns regarding recurrent sepsis or dehydration The patient will be admitted to telemetry for serial cardiac enzymes, serial EKG's, cardiac rhythm monitoring Status post 1 L normal saline in the ED Blood pressure initially 80/50 upon arrival, with improvement to 119/80 after 1 L normal saline Continue apixaban, clopidogrel, mag oxide, metoprolol tartrate with hold parameters Change tamsulosin from 0.4 mg every morning to at bedtime BioFire negative Albumin 2.6, no infusion needed at this time, but continue to monitor Follow urine and blood cultures CKD- Creatinine 2.23 on admission, with base 2.12 Status post 1 L normal saline Continue sodium bicarbonate Repeat laboratories in a.m. BPH with LUTS- Move tamsulosin to at bedtime as noted If recurrent UTI symptoms, can increase dosing from 0.4 to 0.8 mg at bedtime Groin cellulitis- Continue nystatin as noted Remaining orders and notations as noted Resident Activity Tracking Resident Involvement: Resident Care Provided Care Provided: Adult Hospital Medicine (3) Anemia Anemia type: unspecified type Qualified Code(s): D64.9 - Anemia, unspecified (6) CKD (chronic kidney disease) Chronic kidney disease stage: unspecified stage Qualified Code(s): N18.9 - Chronic kidney disease, unspecified
[2023-04-27 21:55] LABS: Adenovirus F 40/41 PCR Not Detected (NotDetected); Astrovirus PCR Not Detected (NotDetected); Campylobacter PCR Not Detected (NotDetected); Cryptosporidium PCR Not Detected (NotDetected); Cyclospora cayetanensis PCR Not Detected (NotDetected); Entamoeba histolytica PCR Not Detected (NotDetected); Enteroaggregative E.coli(EAEC) Not Detected (NotDetected); Enteropathogenic E.coli (EPEC) Not Detected (NotDetected); Enterotoxigenic E.coli (ETEC) Not Detected (NotDetected); Giardia lamblia PCR Not Detected (NotDetected); Norovirus GI/GII PCR Not Detected (NotDetected); Plesiomonas shigelloides PCR Not Detected (NotDetected); Rotavirus A PCR Not Detected (NotDetected); Salmonella PCR Not Detected (NotDetected); Sapovirus PCR Not Detected (NotDetected); Shiga-like Toxin E.coli (STEC) Not Detected (NotDetected); Shigella/Enteroinvasive E.coli Not Detected (NotDetected); Vibrio cholerae PCR Not Detected (NotDetected); Vibrio species PCR Not Detected (NotDetected); Yersinia enterocolitica PCR Not Detected (NotDetected)
[2023-04-28] MEDS ORDERED: CARBOHYDRATES FOR HYPOGLYCEMIA PO PRN (00:01)
[2023-04-28] MEDS ORDERED: GLUCAGON FOR INJ 1 MG VIAL SQ PRN (00:01)
[2023-04-28] MEDS ORDERED: MENTHOL-ZINC OXIDE 360 APPLN/120 GM TUBE EXT PRN (00:01)
[2023-04-28] MEDS ORDERED: DEXTROSE 50% 50 ML SYRINGE IV PRN (00:01)
[2023-04-28] MEDS ORDERED: OXYBUTYNIN CHLORIDE XL 5 MG TABCR PO PRN (00:01)
[2023-04-28] MEDS ORDERED: GLUCOSE 10 TAB/TUBE PO PRN (00:01)
[2023-04-28] MEDS ORDERED: GLUCOSE 40% GEL 15 GM TUBE PO PRN (00:01)
[2023-04-28] MEDS ORDERED: ONDANSETRON INJ 2 MG/ML 2 ML VIAL IV PRN (00:01)
[2023-04-28] MEDS ORDERED: ACETAMINOPHEN 325 MG TAB PO PRN (00:01)
[2023-04-28] MEDS: METOPROLOL TARTRATE 25 MG TAB PO SCH ×2 (01:49→08:33)
[2023-04-28] MEDS: APIXABAN 2.5 MG TAB PO SCH ×2 (01:49→09:23)
[2023-04-28] MEDS: MAGNESIUM OXIDE 400 MG TAB PO SCH ×2 (01:49→08:33)
[2023-04-28] MEDS: NYSTATIN CR 15 GM TUBE EXT SCH ×2 (01:50→08:33)
[2023-04-28] MEDS: GABAPENTIN 100 MG CAP PO SCH ×2 (01:50→09:23)
--- NOTE | 2023-04-28 05:58 | Billing Data ---
Date of Service April 28, 2023 Coding Level of Care Code 79739 INT INP/OBS CARE
[2023-04-28] MEDS ORDERED: LEVOTHYROXINE SODIUM 25 MCG TABLET PO SCH (06:30)
--- NOTE | 2023-04-28 06:50 | Hospitalist Progress Note ---
Date of Service April 28, 2023 Assessment & Plan (1) Hypotension: Plan: 88 year old male admitted for hypotension in the office setting. Hypotension: -Hypotensive episode in the cardiology office to 80/50 earlier today. -Patient has had soft to normal range pressures in the ER, MAP has been above 65. -WBC 7.37, Hgb 10.8, CMP with baseline creatinine, electrolytes within normal limits. -At the current time his rash is better, no active discharge, I do not believe this to be a result of infection/sepsis. -TSH mildly elevated but T4 within normal limits. -HR 70's at the time of hypotensive episode so likely not due to patient's A. Fib, rate has been well controlled with metoprolol. -Troponin negative. -Last echocardiogram 08/2022, EF 60-65% without wall motion abnormality. Ordered repeat echo to check morphology/wall motion. -Patient endorsed he usually drinks 6-8 glasses of water per day, may have been mildly dehydrated vs orthostatic hypotension at the time. -Per cardiology earlier today could do lexiscan stress test if blood pressures stabilize or repeat echocardiogram. -Since patient's pressures have normalized from his outpatient visit if they remain stable, in the face of no red flag symptoms and negative trop, could offer inpatient vs outpatient stress testing. Groin Rash: -Rash appears mild on physical exam. Better than previous hospital stay per patient. -Continue topical anti-fungal measures. -Low suspicion for active infection. BPH with LUTS -Chronic, continue home tamsulosin and oxybutynin. Anemia: -Chronic, at baseline. Continue to montor. Diarrhea: -Patient has new diarrhea today, in the hospital. Likely as a result of the hullabaloo involved with being in the hospital as he says he gets this when he's excited. -No white count, off antibiotics, continue to monitor. CKD: -Creatinine at baseline, chronic issue, continue to monitor. Atrial fibrillation: -Rate controlled, chronic, continue metoprolol and eliquis. Prediabetes: -Glucose well controlled with diet. Last A1c 6.5, well within goal for age (<8) -Continue to monitor with glucose checks. Can add on insulin coverage if glucose rises. F/E/N/GI: Carb consistent T2DM. DVT Prophylaxis: Continue home Eliquis Code status: Full code, discussed with patient. Dispo: Telemetry. (2) Groin rash: (3) Anemia: (4) Atrial fibrillation: (5) Diarrhea: (6) CKD (chronic kidney disease): (7) Prediabetes: (8) Benign prostatic hyperplasia with urinary obstruction: Admission and Anticipated Discharge Date Admission Date: April 27, 2023 Review of Systems Review of Systems: As per HPI. Results & Data Results & Data Vital Signs (Past 12 Hours) Vital Signs Temp Pulse Pulse Resp BP BP Pulse Ox 04/28/23 04:30 132/75 04/28/23 04:00 129/82 04/28/23 03:50 94 H 18 04/28/23 03:40 78 27 H 04/28/23 03:30 83 12 04/28/23 03:30 142/83 H 04/28/23 03:00 82 16 90 04/28/23 03:00 123/88 04/28/23 02:30 86 15 94 04/28/23 02:30 124/70 04/28/23 02:00 96 H 17 04/28/23 02:00 118/85 04/28/23 01:30 86 17 99 04/28/23 01:30 92/48 L 04/28/23 01:00 88/60 L 04/28/23 01:00 103 H 18 100 04/28/23 00:30 85 17 97 04/28/23 00:30 93/71 L 04/28/23 00:00 101 H 16 98 04/28/23 00:00 93/57 L 04/27/23 23:50 88 04/27/23 23:30 83 17 99 04/27/23 23:30 101/51 L 04/27/23 23:01 113/81 04/27/23 23:01 101 H 16 94 04/27/23 23:00 111 H 16 98 04/27/23 23:00 36.6 C 94 H 18 113/81 98 04/27/23 22:59 132/87 04/27/23 22:59 16 95 04/27/23 22:30 89 16 04/27/23 22:00 88 17 04/27/23 21:30 94 H 16 04/27/23 21:00 95 H 16 04/27/23 21:00 118/95 04/27/23 21:00 97 H 22 118/95 96 04/27/23 20:30 126 H 14 04/27/23 20:30 121/70 04/27/23 20:29 16 04/27/23 20:29 133/71 04/27/23 20:05 100 H 04/27/23 20:00 14 04/27/23 19:30 88 17 98 04/27/23 19:20 114 H 20 04/27/23 19:10 102 H 23 04/27/23 19:01 90 31 H 106/77 96 04/27/23 19:00 97 H 29 H 98 04/27/23 19:00 36.8 C 98 H 19 106/77 96 04/27/23 18:50 96 H 30 H O2 Del Method 04/28/23 04:30 04/28/23 04:00 04/28/23 03:50 04/28/23 03:40 04/28/23 03:30 04/28/23 03:30 04/28/23 03:00 04/28/23 03:00 04/28/23 02:30 04/28/23 02:30 04/28/23 02:00 04/28/23 02:00 04/28/23 01:30 04/28/23 01:30 04/28/23 01:00 04/28/23 01:00 04/28/23 00:30 04/28/23 00:30 04/28/23 00:00 04/28/23 00:00 04/27/23 23:50 04/27/23 23:30 04/27/23 23:30 04/27/23 23:01 04/27/23 23:01 04/27/23 23:00 04/27/23 23:00 Room Air 04/27/23 22:59 04/27/23 22:59 04/27/23 22:30 04/27/23 22:00 04/27/23 21:30 04/27/23 21:00 04/27/23 21:00 04/27/23 21:00 Room Air 04/27/23 20:30 04/27/23 20:30 04/27/23 20:29 04/27/23 20:29 04/27/23 20:05 04/27/23 20:00 11/21/23 19:30 Room Air 04/27/23 19:20 04/27/23 19:10 04/27/23 19:01 Room Air 04/27/23 19:00 Room Air 04/27/23 19:00 Room Air 04/27/23 18:50 (3) Anemia Anemia type: unspecified type Qualified Code(s): D64.9 - Anemia, unspecified (6) CKD (chronic kidney disease) Chronic kidney disease stage: unspecified stage Qualified Code(s): N18.9 - Chronic kidney disease, unspecified
[2023-04-28 07:23] LABS: Basophils # (auto) 0.05 K/uL (0.00-0.20); Basophils % (auto) 0.7 %; Eosinophils # (auto) 0.22 K/uL (0.00-0.50); Eosinophils % (auto) 3.1 %; Hematocrit (blood only) 32.7 % (42.0-52.0); Hemoglobin 10.4 g/dl (14.0-18.0); Immature Granulocytes # (auto) 0.02 K/uL (0.01-0.20); Immature Granulocytes % (auto) 0.3 %; Lymphocytes # (auto) 1.63 K/uL (1.20-3.40); Lymphocytes % (auto) 23.2 %; Mean Corpuscular Hemoglobin 31.7 pg (25.0-34.0); Mean Corpuscular Hgb Conc 31.8 g/dL (32.0-36.0); Mean Corpuscular Volume 99.7 fL (80.0-100.0); Monocytes # (auto) 0.57 K/uL (0.11-0.59); Monocytes % (auto) 8.1 %; Neutrophils # (auto) 4.54 K/uL (1.40-6.50); Neutrophils % (auto) 64.6 %; Platelet Count 237 K/uL (130-400); RDW Coefficient of Variation 16.4 % (11.5-14.5); RDW Standard Deviation 59.9 fL (36.4-46.3); Red Blood Count 3.28 M/uL (4.70-6.10); White Blood Count 7.03 K/ul (4.8-10.8)
[2023-04-28 07:33] LABS: Albumin Globulin Ratio 0.8 (0.9-2); Albumin Level 2.2 gm/dl (3.4-5.0); BUN Creatinine Ratio 9.4 (10-20); Bilirubin,Total 0.3 mg/dl (0.2-1.0); Calcium 7.9 mg/dl (8.6-10.3); Creatinine Clr Calc Pharmacy 31.6 ml/min; Est GFR (African American) 35.7 ml/min; Est GFR (Non-African American) 30.8 ml/min; Globulin 2.9 gm/dl (2.5-4.0); Magnesium 1.9 mg/dl (1.7-2.4); Phosphorus 3.5 mg/dl (2.5-4.9); Potassium 4.4 mmol/L (3.5-5.1); Total Protein 5.1 gm/dl (6.0-8.3)
[2023-04-28 07:40] LABS: Troponin I High Sensitivity 10.6 pg/ml (0-20)
[2023-04-28] MEDS ORDERED: TAMSULOSIN HCL 0.4 MG CAP PO SCH ×2 (09:00→21:00)
[2023-04-28] MEDS ORDERED: PANTOprazole 40 MG TAB PO SCH (09:00)
[2023-04-28] MEDS ORDERED: CALCITRIOL 0.25 MCG CAPSULE PO SCH (09:00)
[2023-04-28] MEDS ORDERED: FERROUS SULFATE 325 MG TAB PO SCH (09:00)
[2023-04-28] MEDS ORDERED: CLOPIDOGREL BISULFATE 75 MG TAB PO SCH (09:00)
[2023-04-28 11:09] LABS: Appearance Urine Clear (Clear); Bilirubin Urine Negative (Negative); Blood Urine Negative (Negative); Color Urine Yellow; Glucose Urine UA Negative (Negative); Ketones Urine Negative (Negative); Leukocyte Esterase Urine Negative (Negative); Nitrite Urine Negative (Negative); Protein Urine Negative (Negative); Specific Gravity Urine 1.013 (1.000-1.030); Urobilinogen Urine Negative (Negative); pH Urine 5.5 (4.5-7.5)
--- NOTE | 2023-04-28 17:36 | Discharge Summary ---
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 Patient was recently admitted to the hospital from 04/20-04/23 for groin cellulitis treated with Keflex and nystatin cream. Post discharge patient states he has been feeling really well, the best he's felt in the past 5 years or so. This morning he was at the cardiology office for an appointment when he exhibited low blood pressure 80/50 w/ HR 76 as well as exhibiting some mild shortness fo breath. Patient states he did feel some mild shortness of breath that morning that was new but denies any other symptoms. Denies fevers, chills, chest pain, headaches, congestion, cough, dysuria. He did not have constipation or diarrhea prior to coming in but says he has a bit of diarrhea now that he usually gets when he's excited or something out of the ordinary is happening. He states that he would like to go home as soon as he can since he would hate to just stay in a hospital for more time and decondition. He has not had any worsening of the groin rash and stated it is doing better. Patient has a history of A. fib from his teenage years and is on Eliquis chronically. In the ER Hgb 10.8, WBC 7.37, CMP unremarkable other than low albumin, protein, as well as CKD however his creatinine is at baseline. TSH 4.622 but Free T4 1.10. Respiratory panel grossly negative. CXR negative for acute chest process. Admission Exam Per Admitting Provider Constitutional: WD/WN, vitals as above Eyes: PERRL, conjunctivae normal, anicteric sclerae Respiratory: normal respiratory effort, lungs clear to auscultation Cardiovascular: Rate/Rhythm: + irregularly irregular Heart Sounds: normal S1 and normal S2 No peripheral edema. Gastrointestinal (Abdomen): normal bowel sounds, soft, nontender, no hepatosplenomegaly Skin: Groin rash with mild erythema however no discharge or major irritation noted. Psychiatric: A+Ox3, euthymic affect Principal Diagnosis hypotension Discharge Exam Constitutional WD/WN, vitals as above Respiratory normal respiratory effort, lungs clear to auscultation Cardiovascular RRR, no murmur, no edema Gastrointestinal (Abdomen) normal bowel sounds, soft, nontender, no hepatosplenomegaly Skin no rashes, warm and dry Groin rash with mild erythema, no demarcation, no warm on touch or tender Discharge Data Allergies Allergy/AdvReac Type Severity Reaction Status Date / Time iron [From Venofer] AdvReac Mild warm Verified 04/27/23 18:01 sensation/flushing, discomfort in arm in which it was i Consultations 04/27/23 19:15 ED Decision to Admit Stat Ordered Studies Chest X-Ray 04/27/23 16:25 XR chest 1V portable CLINICAL HISTORY: weakness TECHNIQUE: Single frontal radiograph of the chest was obtained. 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 Calcified aortic knob is seen. The lungs are clear. No evidence of pleural effusion or pneumothorax. IMPRESSION: No acute chest disease. ACT 112: Negative or not required by law. Electronically signed by: Anton Mensah M.D. 04/27/2023 4:40 PM Labs 04/27/23 04/27/23 04/27/23 16:09 18:56 20:26 WBC 7.37 RBC 3.44 L Hgb 10.8 L Hct 34.4 L MCV 100.0 MCH 31.4 MCHC 31.4 L RDW Std Deviation 59.4 H RDW Coeff of Yinka 16.3 H Plt Count 279 MPV 10.2 Immature Gran % (Auto) 0.5 Neut % (Auto) 63.4 Lymph % (Auto) 25.0 Wheeler % (Auto) 8.4 Eos % (Auto) 1.9 Baso % (Auto) 0.8 Neut # (Auto) 4.67 Lymph # (Auto) 1.84 Wheeler # (Auto) 0.62 H Eos # (Auto) 0.14 Baso # (Auto) 0.06 Immature Gran # (Auto) 0.04 Sodium 144 Potassium 4.3 Chloride 119 H Carbon Dioxide 21 Anion Gap 4 BUN 22 Creatinine 2.23 H Est Cr Clr Drug Dosing 27.1 Est GFR ( Amer) 29.6 Est GFR (Non-Af Amer) 25.6 BUN/Creatinine Ratio 9.9 L Glucose 86 POC Glucose Calcium 8.3 L Phosphorus 3.3 Magnesium 2.0 Total Bilirubin 0.3 AST 19 ALT 20 Alkaline Phosphatase 84 Troponin I High Sens 8.3 Total Protein 5.8 L Albumin 2.6 L Globulin 3.2 Albumin/Globulin Ratio 0.8 L Lipase 13 TSH 4.622 H Free T4 1.10 Urine Color Urine Appearance Urine pH Ur Specific [place] Urine Protein Urine Glucose (UA) Urine Ketones Urine Blood Urine Nitrite Urine Bilirubin Urine Urobilinogen Ur Leukocyte Esterase Stl C. cayetanensis PCR Not Detected Stool Rotavirus A PCR Not Detected Stl Adenov F 40/41 PCR Not Detected Stool Astrovirus (PCR) Not Detected Stool Campylobacter PCR Not Detected Stl C. diff Tox B Gene TNP Stool Cryptosporidium PCR Not Detected Stl E.coli Shiga Tox PCR Not Detected Stl Enterotoxigenic E PCR Not Detected Stool EPEC (PCR) Not Detected Stool EAEC (PCR) Not Detected Stl E. histolytica PCR Not Detected Stool Giardia Lamblia PCR Not Detected Stool Salmonella PCR Not Detected Stool Sapovirus (PCR) Not Detected Stl P. shigelloides PCR Not Detected Stl Shigella/EIEC PCR Not Detected St Y.enterocolitica PCR Not Detected Stool Vibrio (PCR) Not Detected Stl Vibrio cholerae PCR Not Detected Stl Norovirus GI/GII PCR Not Detected Adenovirus (PCR) Not Detected B. pertussis DNA (PCR) Not Detected B.parapertussis DNA PCR Not Detected C. pneumoniae DNA (PCR) Not Detected Coronavirus OC43 (PCR) Not Detected Coronavirus HKU1 (PCR) Not Detected Coronavirus 229E (PCR) Not Detected SARS-CoV-2 (PCR) Not Detected Coronavirus NL63 (PCR) Not Detected Human Metapneumovir PCR Not Detected Influenza Type A (PCR) Not Detected Influenza Type B (PCR) Not Detected M. pneumoniae (PCR) Not Detected Parainfluenza 1 (PCR) Not Detected Parainfluenza 2 (PCR) Not Detected Parainfluenza 3 (PCR) Not Detected Parainfluenza 4 (PCR) Not Detected RSV (PCR) Not Detected Entero/Rhino (PCR) Not Detected 04/28/23 04/28/23 04/28/23 00:07 06:43 06:59 WBC 7.03 RBC 3.28 L Hgb 10.4 L Hct 32.7 L MCV 99.7 MCH 31.7 MCHC 31.8 L RDW Std Deviation 59.9 H RDW Coeff of Yinka 16.4 H Plt Count 237 MPV 10.0 Immature Gran % (Auto) 0.3 Neut % (Auto) 64.6 Lymph % (Auto) 23.2 Wheeler % (Auto) 8.1 Eos % (Auto) 3.1 Baso % (Auto) 0.7 Neut # (Auto) 4.54 Lymph # (Auto) 1.63 Wheeler # (Auto) 0.57 Eos # (Auto) 0.22 Baso # (Auto) 0.05 Immature Gran # (Auto) 0.02 Sodium 144 Potassium 4.4 Chloride 119 H Carbon Dioxide 22 Anion Gap 3 BUN 18 Creatinine 1.91 H D Est Cr Clr Drug Dosing 31.6 Est GFR ( Amer) 35.7 Est GFR (Non-Af Amer) 30.8 BUN/Creatinine Ratio 9.4 L Glucose 89 POC Glucose 100 H Calcium 7.9 L Phosphorus 3.5 Magnesium 1.9 Total Bilirubin 0.3 AST 16 ALT 16 Alkaline Phosphatase 73 Troponin I High Sens 10.6 Total Protein 5.1 L Albumin 2.2 L Globulin 2.9 Albumin/Globulin Ratio 0.8 L Lipase TSH Free T4 Urine Color Urine Appearance Urine pH Ur Specific [place] Urine Protein Urine Glucose (UA) Urine Ketones Urine Blood Urine Nitrite Urine Bilirubin Urine Urobilinogen Ur Leukocyte Esterase Stl C. cayetanensis PCR Stool Rotavirus A PCR Stl Adenov F 40/41 PCR Stool Astrovirus (PCR) Stool Campylobacter PCR Stl C. diff Tox B Gene Stool Cryptosporidium PCR Stl E.coli Shiga Tox PCR Stl Enterotoxigenic E PCR Stool EPEC (PCR) Stool EAEC (PCR) Stl E. histolytica PCR Stool Giardia Lamblia PCR Stool Salmonella PCR Stool Sapovirus (PCR) Stl P. shigelloides PCR Stl Shigella/EIEC PCR St Y.enterocolitica PCR Stool Vibrio (PCR) Stl Vibrio cholerae PCR Stl Norovirus GI/GII PCR Adenovirus (PCR) B. pertussis DNA (PCR) B.parapertussis DNA PCR C. pneumoniae DNA (PCR) Coronavirus OC43 (PCR) Coronavirus HKU1 (PCR) Coronavirus 229E (PCR) SARS-CoV-2 (PCR) Coronavirus NL63 (PCR) Human Metapneumovir PCR Influenza Type A (PCR) Influenza Type B (PCR) M. pneumoniae (PCR) Parainfluenza 1 (PCR) Parainfluenza 2 (PCR) Parainfluenza 3 (PCR) Parainfluenza 4 (PCR) RSV (PCR) Entero/Rhino (PCR) 04/28/23 04/28/23 10:47 10:57 WBC RBC Hgb Hct MCV MCH MCHC RDW Std Deviation RDW Coeff of Yinka Plt Count MPV Immature Gran % (Auto) Neut % (Auto) Lymph % (Auto) Wheeler % (Auto) Eos % (Auto) Baso % (Auto) Neut # (Auto) Lymph # (Auto) Wheeler # (Auto) Eos # (Auto) Baso # (Auto) Immature Gran # (Auto) Sodium Potassium Chloride Carbon Dioxide Anion Gap BUN Creatinine Est Cr Clr Drug Dosing Est GFR ( Amer) Est GFR (Non-Af Amer) BUN/Creatinine Ratio Glucose POC Glucose Calcium Phosphorus Magnesium Total Bilirubin AST ALT Alkaline Phosphatase Troponin I High Sens 9.6 Total Protein Albumin Globulin Albumin/Globulin Ratio Lipase TSH Free T4 Urine Color Yellow Urine Appearance Clear Urine pH 5.5 Ur Specific [place] 1.013 Urine Protein Negative Urine Glucose (UA) Negative Urine Ketones Negative Urine Blood Negative Urine Nitrite Negative Urine Bilirubin Negative Urine Urobilinogen Negative Ur Leukocyte Esterase Negative Stl C. cayetanensis PCR Stool Rotavirus A PCR Stl Adenov F 40/41 PCR Stool Astrovirus (PCR) Stool Campylobacter PCR Stl C. diff Tox B Gene Stool Cryptosporidium PCR Stl E.coli Shiga Tox PCR Stl Enterotoxigenic E PCR Stool EPEC (PCR) Stool EAEC (PCR) Stl E. histolytica PCR Stool Giardia Lamblia PCR Stool Salmonella PCR Stool Sapovirus (PCR) Stl P. shigelloides PCR Stl Shigella/EIEC PCR St Y.enterocolitica PCR Stool Vibrio (PCR) Stl Vibrio cholerae PCR Stl Norovirus GI/GII PCR Adenovirus (PCR) B. pertussis DNA (PCR) B.parapertussis DNA PCR C. pneumoniae DNA (PCR) Coronavirus OC43 (PCR) Coronavirus HKU1 (PCR) Coronavirus 229E (PCR) SARS-CoV-2 (PCR) Coronavirus NL63 (PCR) Human Metapneumovir PCR Influenza Type A (PCR) Influenza Type B (PCR) M. pneumoniae (PCR) Parainfluenza 1 (PCR) Parainfluenza 2 (PCR) Parainfluenza 3 (PCR) Parainfluenza 4 (PCR) RSV (PCR) Entero/Rhino (PCR) Hospital Course (1) Hypotension: (2) Groin rash: (3) Anemia: (4) Atrial fibrillation: (5) Diarrhea: (6) CKD (chronic kidney disease): (7) Prediabetes: (8) Benign prostatic hyperplasia with urinary obstruction: Plan 88 year old male admitted for hypotension in the office setting. Hypotension: -Hypotensive episode in the cardiology office to 80/50 -Patient has had soft to normal range pressures in the ER, MAP has been above 65. -WBC 7.37, Hgb 10.8, CMP with baseline creatinine, electrolytes within normal limits. -At the current time his rash is better, no active discharge, I do not believe this to be a result of infection/sepsis. -TSH mildly elevated but T4 within normal limits. -Troponin negative. - ECHO: EF 60-65% without wall motion abnormality. -Patient endorsed he usually drinks 6-8 glasses of water per day, may have been mildly dehydrated vs orthostatic hypotension at the time. refers yesterday he didn't drink as much water because of his LUTS ans having to go the Cardiology office. -Patient was wanting to return home as soon as he could to avoid decompensation. - Since patient's pressures have normalized from his outpatient visit after IV hydration, in the face of no red flag symptoms and negative trop, and no change from the last Echocardiogram, patient was instructed to follow outpatient for Lexiscan stress dose. Groin Rash: -Rash appears mild on physical exam -Continue topical anti-fungal measures. -Low suspicion for active infection. Anemia: -Chronic, at baseline. Continue to montor. Diarrhea: -Patient has new diarrhea today, in the hospital. Likely as a result of the hullabaloo involved with being in the hospital as he says he gets this when he's excited. -No white count, off antibiotics CKD: -Creatinine at baseline, chronic issue Atrial fibrillation: -Rate controlled, chronic, continue metoprolol and eliquis. BPPV: -Chronic, continue home tamsulosin and oxybutynin. Prediabetes: -Glucose well controlled with diet. Last A1c 6.5 Total Time Total Time Spent Total Time Spent (In Minutes): <30 Discharge Plan Discharge Items Patient Disposition: Home - Self-Care Reason For Visit: HYPOTENSION Discharge Diagnosis: Hypotension Activity: Per Instructions section Non-emergency contact: Primary Care Provider Call non-emergency contact if: you have any medication questions, your symptoms worsen and your temperature is above 101 Follow-up/Referrals: Pablo Hernandez DO [Primary Care Provider] - Diet: Heart Healthy Addtl Attending Provider Instructions: You were admitted to the hospital due to an episode of hypotension on the Cardiology's office. You were evaluated here and monitored overnight. Your blood pressure was back to normal. No sign of infection was identified as your cellulitis on groin is improved. This episode of hypotension seem to be due to dehydration. It's very important to during 60z of water/liquid during the day. Keep a diary on the intake to help you follow it. During your stay and echocardiogram was done. Sadly the results are not back yet. It's very important to follow the results with your PCP and Identity Access Management [employer]. Additionally, Cardiology recommended a stress study, it should be performed in the outpatient setting as soon as possible. Follow-up appointments: Make a follow-up appointment with your PCP within the next week. It is very important that you follow up with them shortly after discharge from the hospital. Medications: Your medication list has been reviewed and reconciled upon discharge to ensure accuracy and continuity of care. An updated list of all your medications is included with your hospital discharge paperwork. Please review this list closely, and make note of any changes Take your medications as instructed; do not skip a dose of your medicines. Make sure all of your doctors know every medicine you are taking (including [id number] medicines, vitamins, and supplements). Call your primary care provider before taking any new medicines (including jryc-jim-hsoqpci medicines, vitamins, and supplements), because some of these may interact with your current medications, or may make your symptoms worse. Tell your primary care provider if you cannot afford your medications. CALL 911 OR GO TO THE EMERGENCY DEPARTMENT if you experience any of the following: Sudden, severe abdominal pain or nausea/vomiting Severe chest pain, or chest pain that radiates (moves) to your jaw or arm Sudden, severe shortness of breath or difficulty breathing Thank you for allowing us to participate in your care. Pending Studies at Discharge: Yes (echocardiogram) Stand-Alone Forms: My Videdressing, Smoking Cessation Medications and DC Order Prescriptions: Continued oxybutynin chloride 5 mg tablet extended release 24hr 5 mg PO DAILY PRN (Reason: urinary discomfort) lidocaine [DermacinRx Lidocan] 5 % adhesive patch,medicated 1 patch topical DAILY Qty: 30 0RF Rx Instructions: leave on most painful area for up to 12 hrs calcitriol 0.25 mcg capsule 0.25 mcg PO DAILY Qty: 90 3RF levothyroxine [Synthroid] 25 mcg tablet 25 mcg PO DAILYBB 90 Days Qty: 90 1RF omeprazole 40 mg capsule,delayed release(DR/EC) 40 mg PO BID 90 Days Qty: 180 1RF magnesium oxide 400 mg (241.3 mg magnesium) tablet 400 mg PO BID Qty: 180 3RF tramadol 50 mg tablet 25 mg PO Q8H PRN (Reason: pain) Qty: 15 0RF Eliquis 2.5 mg tablet 2.5 mg PO BID Qty: 180 3RF clopidogrel [Plavix] 75 mg tablet 75 mg PO DAILY Qty: 90 3RF sodium bicarbonate 650 mg tablet 650 mg PO BID Qty: 180 3RF ferrous sulfate 325 mg (65 mg iron) tablet,delayed release (DR/EC) 325 mg PO DAILY Rx Instructions: purchase [id number]-drr-mjuzpyj gabapentin 100 mg capsule 100 mg PO BID Qty: 180 3RF tamsulosin 0.4 mg capsule 0.4 mg PO DAILY Qty: 90 3RF metoprolol tartrate 25 mg tablet 25 mg PO BID Qty: 180 3RF acetaminophen [Tylenol Extra Strength] 500 mg tablet 500 mg PO Q8H PRN (Reason: Pain) loperamide 2 mg capsule 2 mg PO Q6H PRN (Reason: loose stool) Qty: 60 1RF menthol-zinc oxide [Calmoseptine] 0.44-20.6 % ointment 1 applic topical QID PRN (Reason: skin irritation on groin) Qty: 113 1RF calcium carbonate-vitamin D3 [Calcium 500 + D] 500 mg(1,250mg) -200 unit tablet 1 tab PO QAM vitamin B complex Tablet 1 tab PO QAM Probiotic 10 billion cell Capsule 10,000 mmu cells PO QDD Rx Instructions: TAKE WITH EVENING MEAL nystatin 100,000 unit/gram Cream 1 applic EXT BID 14 Days Qty: 15 0RF multivitamin Tablet 1 tab PO DAILY Discharge Orders: Discharge Order (Routine); Ordered 04/28/23 Ordered By: Corinna Khanna Admission Data Admit Date/Time: 04/27/23 20:17 Attending Provider: Flo Lambert Admit Provider: Roger Moore Primary Care Provider: Pablo Hernandez Other Providers: Zak Dye Other Interventions: Discharge Summary Assessment (RN) Last Done: 04/28/23 17:43 Supervising Physician Co-Signing Physician Notes I personally examined the patient and verified all [place] points of history and exam, discussed case, and agree with decision making with Dr Canelo Khanna Feeling goodNotes that he has not felt this good in quite a while. Would very much like to go home. Notes that he does not drink enough fluids. corroborates this. Vitals noted, in general he is awake and alert pleasant no distress. HEENT normocephalic atraumatic mucous membranes moist. Breathing unlabored no accessory muscle use good effort. Skin shows no rashes no pallor or icterus. Echo and labs noted. Hypotensionprobably hypovolemic from poor p.o. intake and overall age/frailty, nothing appearing cardiogenic, nothing appearing septic/distributiveimproved with IV fluids. Discussed need to have adequate p.o. fluid intake and to track this, suggested a minimum of 60 ounces of fluid a day. Otherwise safe/stable for home, otherwise as above. Resident Activity Tracking Resident Involvement: Resident Care Provided Care Provided: Adult Hospital Medicine
--- NOTE | 2023-04-28 17:42 | XCELERA ---
[id number] [id number]
--- NOTE | 2023-04-28 18:34 | Billing Data ---
Date of Service April 28, 2023 Coding Level of Care Code 39986 IN/OBS DISCH 30 MIN/LESS
--- NOTE | 2023-04-29 06:59 | Electrocardiogram Report ---
Test Reason : Blood Pressure : / mmHG Vent. Rate : 082 BPM Atrial Rate : 000 BPM P-R Int : 000 ms QRS Dur : 076 ms QT Int : 346 ms P-R-T Axes : 000 -19 025 degrees QTc Int : 404 ms Atrial fibrillation Low voltage QRS Abnormal ECG When compared with ECG of 21-APR-2023 14:34, No significant change was found Confirmed by Hardeep Hernandez ([id number]) on 04/29/2023 6:58:43 AM Referred By: REFERRED SELF Confirmed By:Hardeep Hernandez
== END 2023-04-28 17:52 | disposition home or self-care (01) ==
LOC: ED 16:07 → INTOOBSV 20:17 → EDINP 20:17 → SUATTDRO 20:17 → EDINP 04-28

== ENCOUNTER 2023-05-23 15:41 | Observation (INO) ==
[2023-05-23] MEDS ORDERED: SODIUM CHLORIDE 0.9% IV ONE (16:01)
[2023-05-23] MEDS ORDERED: cefTRIAXone SODIUM 2,000 MG/50 ML BAG IV STA (16:01)
[2023-05-23] MEDS ORDERED: VANCOMYCIN HCL IV ONE (16:01)
[2023-05-23] MEDS ORDERED: VANCOMYCIN CONSULT ACTIVE PRN (16:01)
--- NOTE | 2023-05-23 16:06 | Emergency Department Note ---
Impression & Plan Cellulitis, UTI (urinary tract infection) ED Provider Note NAME: ANABELLE WILLIAMSON AGE: 88 SEX: M : 1935 ARRIVES VIA: Walk-In INFORMANT: Patient ED PROVIDER(S): Flo Muhammad DO CHIEF COMPLAINT: cellulitis HPI: Patient is an 88-year-old male who presents to the ER for pain redness and swelling of the groin. He notes his groin has become much more painful. He notes he does have swelling of his testicle. He has a history of squamous cell carcinoma of the penis and had surgery done at [place]. He notes he has had a cellulitis before and this looks the same. He has significant pain with urination. Denies any headache or change in vision. No chest pain or shortness of breath. Admits to dysuria and urgency. ADDITIONAL HISTORY OBTAINED: Per HPI Chronic Medical/Social Conditions Affecting Care: Per HPI PAST MEDICAL HISTORY:See Below PAST SURGICAL HISTORY:See Below FAMILY HISTORY:See Below SOCIAL HISTORY:See Below HOME MEDICATIONS:See Below ALLERGIES:See Below VITALS:See Below PHYSICAL EXAMINATION: GENERAL: Sitting up in bed, alert, well appearing, well nourished, no distress, non-toxic EYE EXAM: normal conjunctiva. OROPHARYNX: no exudate, no erythema, lips, buccal mucosa, and tongue normal and mucous membranes are moist NECK: supple, no nuchal rigidity, no adenopathy, non-tender LUNGS: Clear to auscultation. Normal chest wall mechanics HEART: no murmurs, S1 normal and S2 normal ABDOMEN: abdomen soft, non-tender, normo-active bowel sounds, no masses, no rebound or guarding. : Stump of the penis is erythematous with surrounding erythema tracking to the scrotal area which is tender warm. No crepitus. No open wound. Erythema tracks to the bottom of the scrotum. UPPER EXTREMITIES: upper extremities are grossly normal. LOWER EXTREMITIES: No pitting edema. NEURO EXAM: Normal sensorium, cranial nerves II-XII grossly intact, normal speech, no gross weakness of arms, no gross weakness of legs. MEDICAL DECISION MAKING: Patient is an 88-year-old male who presents to the ER following squamous cell cancer of the penis and resection for erythema and swelling consistent with his previous bout of cellulitis. IV was established blood work is obtained. Labs show no significant leukocytosis. Mild anemia 10. BMP with mild acidosis with a CO2 of 20. Creatinine at 2.1 fairly consistent with previous. LFTs and bilirubin were unremarkable. UA is consistent with UTI. He was given IV Rocephin and vancomycin due to the surrounding cellulitis of his groin and scrotum. Ultrasound showed a hydrocele and scrotal wall thickening and edema likely consistent with cellulitis. He was updated at bedside. Discussed with Dr. Bladimir Del Rosario for further evaluation management treatment. Discussed covering urine with the hospitalist but we will hold at this time and defer to them after discussion with Dr. Del Rosario. Consults/Care Managements Discussions: Per MDM Triage Nursing notes reviewed. Limited review of prior medical records performed Vital Signs: reviewed and remarkable for tachy Differential diagnosis: Cellulitis, abscess, MRSA infection, DVT, necrotizing fasciitis, dermatitis, drug eruption, allergic reaction, as well as other pathologies. ER treatment provided: See below Diagnostics interpreted by me include EKG and cardiac monitoring as listed below: -Cardiac Monitoring: An order was placed for continuous cardiac monitoring. The monitor shows a rate of 101 with afib rhythm. -Laboratory studies:Interpreted by me as stated above in MDM and shown below. Imaging studies: Xrays: As interpreted by me:none CTs show: none Ultrasound the scrotum shows a hydrocele. It also shows scrotal wall thickening and edema likely consistent with cellulitis. Procedures:none Critical Care: None Past Med/Surg History Medical History Acute UTI Pain in penis Lumbosacral facet joint syndrome Discogenic lumbar pain Acute metabolic encephalopathy UTI (urinary tract infection) Rib pain on left side Syncopal episodes COVID-19 Penile cancer KENROY (acute kidney injury) Unresponsiveness Anemia of chronic disease Diarrhea SCC (squamous cell carcinoma), penis Chronic pruritus Hypothyroidism Chronic renal insufficiency, stage IV (severe) Secondary hyperparathyroidism of renal origin Orthostatic hypotension Vitamin D deficiency SBO (small bowel obstruction) Small bowel obstruction due to adhesions Rectal bleed BRBPR (bright red blood per rectum) Dementia Hyperkalemia Acute cholecystitis Substernal chest pain Dysphagia Fall Colitis Concussion Degenerative disc disease Osteoarthritis History of bleeding ulcers Diabetes mellitus, type 2 Hx of migraines Hx of sleep apnea Atrial fibrillation Balanoposthitis Phimosis DDD (degenerative disc disease), lumbar Atrial fibrillation (04/22/12) Peptic ulcer disease GERD (gastroesophageal reflux disease) BPH w urinary obs/LUTS Anal fistula Fall Hypoglycemia Bradycardia Surgical History S/P laparoscopic cholecystectomy (09/17/20) Hx of circumcision H/O knee surgery History of total shoulder replacement History of total knee replacement History of esophagogastroduodenoscopy (EGD) History of colonoscopy History of tooth extraction Hx of transurethral resection of prostate H/O gastric bypass Family History Sister Family history of diabetes mellitus Social History Smoking Status: Unknown if ever smoked Tobacco Type: Cigarettes Second Hand Exposure: No; Do You Dip or Chew Tobacco: No; Hx Alcohol Use: No Hx Substance Use: No Preferred Language: Ukrainian Communication Ability: Effective Communication Ability Comment: can be forgetful Field Spec Required: No Beliefs That Will Affect Care: None marital status: Current Living Situation: Spouse Current Living Situation Comment: At home with current occupational status: retired Feels Safe at Home: Yes Diet: regular Seatbelt Use: always Assistive Devices: Cane, Scooter/Electric Scooter, Walker and Wheelchair Allergies Allergies Allergy/AdvReac Type Severity Reaction Status Date / Time iron [From Venofer] AdvReac Mild warm Verified 05/04/23 13:21 sensation/flushing, discomfort in arm in which it was i Home Meds Home Medications Medication Instructions Recorded Confirmed calcium carbonate 500 mg-vitamin 1 tab PO QAM 12/18/19 05/23/23 D3 5 mcg (200 unit) tablet (Calcium 500 + D) vitamin B complex 1 tab PO QAM 12/18/19 05/23/23 Lactobacillus acidophilus 10 10,000 mmu cells PO QDD 01/18/21 05/23/23 billion cell capsule (Probiotic) multivitamin 1 tab PO DAILY 08/01/22 05/23/23 acetaminophen 500 mg tablet 1,000 mg PO Q8H PRN Pain 12/22/22 05/23/23 (Tylenol Extra Strength) oxybutynin chloride 5 mg 5 mg PO DAILY urinary discomfort 03/22/23 05/23/23 tablet,extended release 24 hr ferrous sulfate 325 mg (65 mg 325 mg PO DAILY 04/27/23 05/23/23 iron) tablet,delayed release lidocaine 5 % topical patch 1 patch topical DAILY PRN Pain 05/23/23 05/23/23 (DermacinRx Lidocan) Previous Rx's Medication Instructions Recorded gabapentin 100 mg capsule 100 mg PO BID #180 caps 06/19/22 tamsulosin 0.4 mg capsule 0.4 mg PO DAILY #90 caps 06/19/22 sodium bicarbonate 650 mg tablet 650 mg PO BID Stomach upset #180 08/10/22 tabs calcitriol 0.25 mcg capsule 0.25 mcg PO DAILY #90 caps 10/06/22 levothyroxine 25 mcg tablet 25 mcg PO DAILYBB 90 days #90 tabs 10/12/22 (Synthroid) magnesium oxide 400 mg (241.3 mg 400 mg PO BID #180 tabs 11/23/22 magnesium) tablet omeprazole 40 mg capsule,delayed 40 mg PO BID 90 days #180 caps 11/23/22 release metoprolol tartrate 25 mg tablet 25 mg PO BID #180 tabs 01/25/23 tramadol 50 mg tablet 25 mg (1/2 x 50 mg) PO Q8H PRN 03/04/23 pain #15 tabs loperamide 2 mg capsule 2 mg PO Q6H PRN loose stool #60 03/29/23 caps menthol 0.44 %-zinc oxide 20.6 % 1 applic topical QID PRN skin 03/29/23 topical ointment (Calmoseptine) irritation on groin #113 grams apixaban 2.5 mg tablet (Eliquis) 2.5 mg PO BID #180 tabs 04/15/23 clopidogrel 75 mg tablet (Plavix) 75 mg PO DAILY #90 tabs 04/15/23 Results & Data (ED) Vital Signs Vital Signs - 24 hr 05/23/23 15:42 05/23/23 16:23 05/23/23 17:04 Temperature 36.4 C L Temperature Source Temporal Artery Scan Pulse Rate 101 H 104 H Pulse Rate [Finger] Pulse Rhythm [Finger] Respiratory Rate 98 H Respiratory Effort / Characteristics Non-Labored Spontaneous Respiratory Depth Normal Respiratory Pattern Regular Blood Pressure 113/70 Blood Pressure [Right Arm] Blood Pressure Mean 84 Blood Pressure Mean [Right Arm] Blood Pressure Position [Right Arm] Pulse Oximetry 98 96 Oxygen Delivery Method Room Air Room Air Sepsis Recent Fever Within 48 Hours No Sepsis New/Unexplained Change in Mental Status N/A Sepsis Action Taken by Nursing No Action Required 05/23/23 17:30 Temperature Temperature Source Pulse Rate Pulse Rate [Finger] 99 H Pulse Rhythm [Finger] Regular Respiratory Rate 18 Respiratory Effort / Characteristics Non-Labored Spontaneous Respiratory Depth Normal Respiratory Pattern Regular Blood Pressure Blood Pressure [Right Arm] 132/88 Blood Pressure Mean Blood Pressure Mean [Right Arm] 102 Blood Pressure Position [Right Arm] Sitting Pulse Oximetry 98 Oxygen Delivery Method Room Air Sepsis Recent Fever Within 48 Hours Sepsis New/Unexplained Change in Mental Status Sepsis Action Taken by Nursing Laboratory Data 05/23/23 16:20 05/23/23 16:15 Lab Results 05/23/23 05/23/23 05/23/23 Range/Units 16:15 16:20 16:26 WBC 6.70 (4.8-10.8) K/ul RBC 3.22 L (4.70-6.10) M/uL Hgb 10.3 L (14.0-18.0) g/dl Hct 31.8 L (42.0-52.0) % MCV 98.8 (80.0-100.0) fL MCH 32.0 (25.0-34.0) pg MCHC 32.4 (32.0-36.0) g/dL RDW Std Deviation 56.6 H (36.4-46.3) fL RDW Coeff of [place] 15.6 H (11.5-14.5) % Plt Count 260 (130-400) K/uL MPV 10.3 (9.4-12.4) fL Immature Gran % (Auto) 0.4 % Neut % (Auto) 60.5 % Lymph % (Auto) 20.9 % [place] % (Auto) 13.9 % Eos % (Auto) 3.9 % Baso % (Auto) 0.4 % Neut # (Auto) 4.05 (1.40-6.50) K/uL Lymph # (Auto) 1.40 (1.20-3.40) K/uL [place] # (Auto) 0.93 H (0.11-0.59) K/uL Eos # (Auto) 0.26 (0.00-0.50) K/uL Baso # (Auto) 0.03 (0.00-0.20) K/uL Immature Gran # (Auto) 0.03 (0.01-0.20) K/uL Sodium 140 (136-145) mmol/L Potassium 4.7 (3.5-5.1) mmol/L Chloride 116 H (98-107) mmol/L Carbon Dioxide 20 L (21-32) mmol/L Anion Gap 4 (3-11) BUN 30 H (6-23) mg/dl Creatinine 2.17 H (0.6-1.4) mg/dl Est Cr Clr Drug Dosing 28.2 ml/min Est GFR ( Amer) 30.6 ml/min Est GFR (Non-Af Amer) 26.4 ml/min BUN/Creatinine Ratio 13.8 (10-20) Glucose 84 (70-99(Fasting)) mg/dl Calcium 7.5 L (8.6-10.3) mg/dl Total Bilirubin 0.3 (0.2-1.0) mg/dl AST 20 (13-39) U/L ALT 12 (7-52) U/L Alkaline Phosphatase 94 (34-104) U/L Total Protein 5.4 L (6.0-8.3) gm/dl Albumin 2.3 L (3.4-5.0) gm/dl Globulin 3.1 (2.5-4.0) gm/dl Albumin/Globulin Ratio 0.7 L (0.9-2) Lipase 3 L (11-82) U/L Urine Color Yellow Urine Appearance Cloudy A (Clear) Urine pH 5.5 (4.5-7.5) Ur Specific [place] 1.014 (1.000-1.030) Urine Protein 1+ H (Negative) Urine Glucose (UA) Negative (Negative) Urine Ketones Negative (Negative) Urine Blood 1+ H (Negative) Urine Nitrite Negative (Negative) Urine Bilirubin Negative (Negative) Urine Urobilinogen Negative (Negative) Ur Leukocyte Esterase 3+ H (Negative) Urine WBC (Auto) >30 H (0-5) /hpf Urine RBC (Auto) 5-10 H (0-4) /hpf U Hyaline Cast (Auto) 1-5 (0-5) /lpf U Epithel Cells (Auto) 5-10 H (0-5) /lpf Urine Bacteria (Auto) 1+ H (Negative) Urine Yeast Not Reportable Administered Medications Vancomycin HCl 2,000 mg/ (Sodium Chloride) 540 mls @ 200 mls/hr IV NOW ONE Stop: 05/23/23 19:11 Last Admin: 05/23/23 16:49 Dose: 200 mls/hr Documented By: MARIUSZ Sodium Chloride (Nss) 1,000 mls @ 999 mls/hr IV .Q1H1M ONE Stop: 05/23/23 18:56 Last Admin: 05/23/23 18:14 Dose: 999 mls/hr Documented By: MARIUSZ Discontinued Medications Ceftriaxone Sodium (Rocephin) 2,000 mg in 50 mls @ 100 mls/hr IV NOW STA Stop: 05/23/23 16:30 Last Infusion: 05/23/23 16:50 Dose: Infused Documented By: Admin: 05/23/23 16:21 Dose: 100 mls/hr Documented By: MARIUSZ Morphine Sulfate (Morphine Sulfate 4 Mg/Ml 1 Ml Carp\Vial) 4 mg IV NOW STA Stop: 05/23/23 18:03 Last Admin: 05/23/23 18:14 Dose: 4 mg Documented By: MARIUSZ Ondansetron HCl (Ondansetron Inj 2 Mg/Ml 2 Ml Vial) 4 mg IV NOW STA Stop: 05/23/23 18:03 Last Admin: 05/23/23 18:14 Dose: 4 mg Documented By: MARIUSZ Imaging Data Radiologist's Impression: Scrotum Ultrasound 05/23/23 16:06 ULTRASOUND TESTES AND SCROTUM CLINICAL HISTORY: Scrotal/testicular pain and swelling. Erythema. COMPARISON STUDY: No priors. TECHNIQUE: Real-time, grayscale, and color Doppler sonography of the testes and scrotum is performed. Images are reviewed in the transverse and longitudinal planes. FINDINGS: The testes are normal in size. The testes are heterogeneous, left greater than right. The right testis measures 3.4 x 2.6 x 1.7 cm and the left testis measures 2.9 x 1.8 x 2.4 cm. No intratesticular mass is seen. Testicular blood flow is normal and symmetric. Normal Doppler waveforms are identified in both testes. The epididymal heads are normal heterogeneous. No hypervascularity showing color imaging. There is a small minimally complex left-sided hydrocele. Trace hydrocele seen on the right. No varicocele is seen. There is marked scrotal wall thickening and edema. No fluid collection is seen to suggest abscess. IMPRESSION: 1. Heterogeneous testes with no acute testicular abnormality identified. 2. There is marked scrotal wall thickening and edema. Correlate clinically for evidence of cellulitis. 3. Small and minimally complex left-sided hydrocele. Trace hydrocele is noted on the right. ACT 112: Negative or not required by law. Electronically signed by: Guillermo Fitzgerald M.D. 05/23/2023 5:47 PM Discharge Plan Visit Data Chief Complaint: Infection Stated Complaint: INFECTION AT SURGERY SITE ED Provider: Flo Muhammad Discharge Problem: Cellulitis, UTI (urinary tract infection) Forms Stand Alone Forms: [facility] [employer] Prescriptions Prescriptions: No Action oxybutynin chloride 5 mg tablet extended release 24hr 5 mg PO DAILY calcitriol 0.25 mcg capsule 0.25 mcg PO DAILY Qty: 90 3RF levothyroxine [Synthroid] 25 mcg tablet 25 mcg PO DAILYBB 90 Days Qty: 90 1RF omeprazole 40 mg capsule,delayed release(DR/EC) 40 mg PO BID 90 Days Qty: 180 1RF magnesium oxide 400 mg (241.3 mg magnesium) tablet 400 mg PO BID Qty: 180 3RF tramadol 50 mg tablet 25 mg PO Q8H PRN (Reason: pain) Qty: 15 0RF Eliquis 2.5 mg tablet 2.5 mg PO BID Qty: 180 3RF clopidogrel [Plavix] 75 mg tablet 75 mg PO DAILY Qty: 90 3RF sodium bicarbonate 650 mg tablet 650 mg PO BID Qty: 180 3RF ferrous sulfate 325 mg (65 mg iron) tablet,delayed release (DR/EC) 325 mg PO DAILY Rx Instructions: purchase [id number] gabapentin 100 mg capsule 100 mg PO BID Qty: 180 3RF tamsulosin 0.4 mg capsule 0.4 mg PO DAILY Qty: 90 3RF metoprolol tartrate 25 mg tablet 25 mg PO BID Qty: 180 3RF acetaminophen [Tylenol Extra Strength] 500 mg tablet 1,000 mg PO Q8H PRN (Reason: Pain) loperamide 2 mg capsule 2 mg PO Q6H PRN (Reason: loose stool) Qty: 60 1RF menthol-zinc oxide [Calmoseptine] 0.44-20.6 % ointment 1 applic topical QID PRN (Reason: skin irritation on groin) Qty: 113 1RF calcium carbonate-vitamin D3 [Calcium 500 + D] 500 mg(1,250mg) -200 unit tablet 1 tab PO QAM vitamin B complex Tablet 1 tab PO QAM Probiotic 10 billion cell Capsule 10,000 mmu cells PO QDD Rx Instructions: TAKE WITH EVENING MEAL lidocaine [DermacinRx Lidocan] 5 % adhesive patch,medicated 1 patch topical DAILY PRN (Reason: Pain) Rx Instructions: leave on most painful area for up to 12 hrs multivitamin Tablet 1 tab PO DAILY Referrals Referrals: Pablo Hernandez DO [Primary Care Provider] - Discharge Problem: Cellulitis Qualifiers: Site of cellulitis: unspecified site Qualified Code(s): L03.90 - Cellulitis, unspecified UTI (urinary tract infection) Qualifiers: Urinary tract infection type: site unspecified Hematuria presence: with hematuria Qualified Code(s): N39.0 - Urinary tract infection, site not specified
[2023-05-23] MEDS ORDERED: VANCOMYCIN HCL 2,000 MG in SODIUM CHLORIDE 0.9% 500 ML IV ONE (16:30)
[2023-05-23 16:35] LABS: Basophils # (auto) 0.03 K/uL (0.00-0.20); Basophils % (auto) 0.4 %; Eosinophils # (auto) 0.26 K/uL (0.00-0.50); Eosinophils % (auto) 3.9 %; Hematocrit (blood only) 31.8 % (42.0-52.0); Hemoglobin 10.3 g/dl (14.0-18.0); Immature Granulocytes # (auto) 0.03 K/uL (0.01-0.20); Immature Granulocytes % (auto) 0.4 %; Lymphocytes % (auto) 20.9 %; Mean Corpuscular Hgb Conc 32.4 g/dL (32.0-36.0); Mean Corpuscular Volume 98.8 fL (80.0-100.0); Mean Platelet Volume 10.3 fL (9.4-12.4); Monocytes # (auto) 0.93 K/uL (0.11-0.59); Monocytes % (auto) 13.9 %; Neutrophils # (auto) 4.05 K/uL (1.40-6.50); Neutrophils % (auto) 60.5 %; Platelet Count 260 K/uL (130-400); RDW Coefficient of Variation 15.6 % (11.5-14.5); RDW Standard Deviation 56.6 fL (36.4-46.3); Red Blood Count 3.22 M/uL (4.70-6.10)
[2023-05-23 16:52] LABS: Albumin Globulin Ratio 0.7 (0.9-2); Albumin Level 2.3 gm/dl (3.4-5.0); BUN Creatinine Ratio 13.8 (10-20); Bilirubin,Total 0.3 mg/dl (0.2-1.0); Calcium 7.5 mg/dl (8.6-10.3); Creatinine Clr Calc Pharmacy 28.2 ml/min; Est GFR (African American) 30.6 ml/min; Est GFR (Non-African American) 26.4 ml/min; Globulin 3.1 gm/dl (2.5-4.0); Potassium 4.7 mmol/L (3.5-5.1); Total Protein 5.4 gm/dl (6.0-8.3)
[2023-05-23 16:57] LABS: Appearance Urine Cloudy (Clear); Bacteria Urine Automated 1+ (Negative); Bilirubin Urine Negative (Negative); Blood Urine 1+ (Negative); Color Urine Yellow; Glucose Urine UA Negative (Negative); Ketones Urine Negative (Negative); Leukocyte Esterase Urine 3+ (Negative); Nitrite Urine Negative (Negative); Protein Urine 1+ (Negative); Specific Gravity Urine 1.014 (1.000-1.030); Urobilinogen Urine Negative (Negative); WBC Urine Automated >30 /hpf (0-5); pH Urine 5.5 (4.5-7.5)
--- NOTE | 2023-05-23 17:49 | Ultrasound Report ---
ULTRASOUND TESTES AND SCROTUM CLINICAL HISTORY: Scrotal/testicular pain and swelling. Erythema. COMPARISON STUDY: No priors. TECHNIQUE: Real-time, grayscale, and color Doppler sonography of the testes and scrotum is performed. Images are reviewed in the transverse and longitudinal planes. FINDINGS: The testes are normal in size. The testes are heterogeneous, left greater than right. The right testi s measures 3.4 x 2.6 x 1.7 cm and the left testis measures 2.9 x 1.8 x 2.4 cm. No intratesticular mas s is seen. Testicular blood flow is normal and symmetric. Normal Doppler waveforms are identified in both testes. The epididymal heads are normal heterogeneous. No hypervascularity showing color imaging. There is a small minimally complex left-sided hydrocele. Trace hydrocele seen on the right. No varico shari is seen. There is marked scrotal wall thickening and edema. No fluid collection is seen to sugge st abscess. IMPRESSION: 1. Heterogeneous testes with no acute testicular abnormality identified. 2. There is marked scrotal wall thickening and edema. Correlate clinically for evidence of cellulitis . 3. Small and minimally complex left-sided hydrocele. Trace hydrocele is noted on the right. ACT 112: Negative or not required by law. Electronically signed by: Guillermo Fitzgerald M.D. 05/23/2023 5:47 PM
[2023-05-23] MEDS ORDERED: SODIUM CHLORIDE 0.9% 1,000 ML IV ONE (17:56)
[2023-05-23] MEDS ORDERED: MoRPHine SULFATE 4 MG/ML 1 ML CARP\\VIAL IV STA (18:02)
[2023-05-23] MEDS ORDERED: ONDANSETRON INJ 2 MG/ML 2 ML VIAL IV STA (18:02)
--- NOTE | 2023-05-23 18:28 | History & Physical Report ---
Date of Service May 23, 2023 Assessment & Plan (1) Cellulitis: Plan: Ceftriaxone 2g IV daily Vancomycin given int he ER however further MRSA coverage deferred as no abscess and no history of this. MRSA nasal swab taken If becoming septic would recommend daptomycin rather than further vancomycin given his CKD Follow up blood cultures - notably taken after initial antibiotics (2) Asymptomatic bacteriuria: Plan: UA taken as "clean catch" although essential impossible to get a good clean catch given he prior penectomy Discussed with Avtar SALAZAR for urology about obtaining a straight cath sample but essentially the patient is unable to hold onto urine for any period of time therefore urology not recommending straight cath at this time - agree a Lynch catheter balloon more likely to cause damage given bladder size on serial CTs Very difficult to know if he is having symptoms with this since he is having dysuria but he feels this is mainly because of the raw skin rather than urethra High risk of getting a urine infection with his penectomy Known ESBL in prior clean catch sample - if getting septic would switch antibiotics to ertapenem but currently deferred to avoid further resistant o rganisms will continue with ceftriaxone alone (3) Atrial fibrillation: Plan: Permanent Anticoagulation with Eliquis Continue metoprolol tartrate 25mg PO BID for rate control (4) Stage 3b chronic kidney disease: Plan: At baseline Continue sodium bicarbonate Appears to be mildly dehydrated on exam LR ordered overnight Repeat BMP in AM Plan VTE prophylaxis - Eliquis Diet - regular Disposition - observation to med/tele Admission and Anticipated Discharge Date Admission Date: May 23, 2023 History of Present Illness Chief Complaint: Lower abdominal erythema Primary Care Provider: DO Cl Araiza Proper is an 88-year-old male s/p penectomy for squamous cell carcinoma who presents to the ER with lower abdominal cellulitis. He was recently admitted for the same from April 22 - 2022 with bacteremia in 1/2 blood cultures growing Enterococcus faecalis treated with ampicillin and discharged with Augmentin. He was readmitted with hypotension from April 27 - 2022 due to hypotension which resolved with IV fluids and he was suspect just to be mildly dehydrated. He presents today with increased pain and erythema in his groin although he finds it difficult to give me a good timeline he thinks this has been much worse over the last 4-5 days. No fever or chills. He reports only burning on his skin rather than dysuria. No suprapubic pain. Allergies Allergy/AdvReac Type Severity Reaction Status Date / Time iron [From Venofer] AdvReac Mild warm Verified 05/04/23 13:21 sensation/flushing, discomfort in arm in which it was i Home Medications Medication Instructions Recorded Confirmed Type calcium carbonate 500 mg-vitamin 1 tab PO QAM 12/18/19 05/23/23 History D3 5 mcg (200 unit) tablet (Calcium 500 + D) vitamin B complex 1 tab PO QAM 12/18/19 05/23/23 History Lactobacillus acidophilus 10 10,000 mmu cells PO QDD 01/18/21 05/23/23 History billion cell capsule (Probiotic) gabapentin 100 mg capsule 100 mg PO BID #180 caps 06/19/22 05/23/23 Rx tamsulosin 0.4 mg capsule 0.4 mg PO DAILY #90 caps 06/19/22 05/23/23 Rx multivitamin 1 tab PO DAILY 08/01/22 05/23/23 History sodium bicarbonate 650 mg tablet 650 mg PO BID Stomach upset #180 08/10/22 05/23/23 Rx tabs calcitriol 0.25 mcg capsule 0.25 mcg PO DAILY #90 caps 10/06/22 05/23/23 Rx levothyroxine 25 mcg tablet 25 mcg PO DAILYBB 90 days #90 tabs 10/12/22 05/23/23 Rx (Synthroid) magnesium oxide 400 mg (241.3 mg 400 mg PO BID #180 tabs 11/23/22 05/23/23 Rx magnesium) tablet omeprazole 40 mg capsule,delayed 40 mg PO BID 90 days #180 caps 11/23/22 05/23/23 Rx release acetaminophen 500 mg tablet 1,000 mg PO Q8H PRN Pain 12/22/22 05/23/23 History (Tylenol Extra Strength) metoprolol tartrate 25 mg tablet 25 mg PO BID #180 tabs 01/25/23 05/23/23 Rx tramadol 50 mg tablet 25 mg (1/2 x 50 mg) PO Q8H PRN 03/04/23 05/23/23 Rx pain #15 tabs oxybutynin chloride 5 mg 5 mg PO DAILY urinary discomfort 03/22/23 05/23/23 History tablet,extended release 24 hr loperamide 2 mg capsule 2 mg PO Q6H PRN loose stool #60 03/29/23 05/23/23 Rx caps menthol 0.44 %-zinc oxide 20.6 % 1 applic topical QID PRN skin 03/29/23 05/23/23 Rx topical ointment (Calmoseptine) irritation on groin #113 grams apixaban 2.5 mg tablet (Eliquis) 2.5 mg PO BID #180 tabs 04/15/23 05/23/23 Rx clopidogrel 75 mg tablet (Plavix) 75 mg PO DAILY #90 tabs 04/15/23 05/23/23 Rx ferrous sulfate 325 mg (65 mg 325 mg PO DAILY 04/27/23 05/23/23 History iron) tablet,delayed release lidocaine 5 % topical patch 1 patch topical DAILY PRN Pain 05/23/23 05/23/23 History (DermacinRx Lidocan) Past Med/Surg History Medical History Acute UTI Pain in penis Lumbosacral facet joint syndrome Discogenic lumbar pain Acute metabolic encephalopathy UTI (urinary tract infection) Rib pain on left side Syncopal episodes COVID-19 Penile cancer KENROY (acute kidney injury) Unresponsiveness Anemia of chronic disease Diarrhea SCC (squamous cell carcinoma), penis Chronic pruritus Hypothyroidism Chronic renal insufficiency, stage IV (severe) Secondary hyperparathyroidism of renal origin Orthostatic hypotension Vitamin D deficiency SBO (small bowel obstruction) Small bowel obstruction due to adhesions Rectal bleed BRBPR (bright red blood per rectum) Dementia Hyperkalemia Acute cholecystitis Substernal chest pain resolved per pt Dysphagia "trouble keeping foods down" Fall walker and cane -- fall risk. Colitis Concussion Degenerative disc disease Osteoarthritis History of bleeding ulcers Diabetes mellitus, type 2 diet controlled Hx of migraines Hx of sleep apnea no device Atrial fibrillation no cardioversions/ no pacer. treated with medication and follows with PCP Balanoposthitis Phimosis DDD (degenerative disc disease), lumbar Atrial fibrillation (04/22/12) Peptic ulcer disease GERD (gastroesophageal reflux disease) BPH w urinary obs/LUTS Anal fistula Fall LAST FALL 1 WEEK AGO Hypoglycemia Bradycardia Surgical History S/P laparoscopic cholecystectomy (09/17/20) Laparoscopic Cholecystectomy with Cholangiogram with akira drain 09/17/20 Dr. Atkinson Hx of circumcision 2 yrs ago H/O knee surgery "MULTIPLE KNEE SURGERIES"- R/L History of total shoulder replacement LEFT History of total knee replacement RT/LEFT History of esophagogastroduodenoscopy (EGD) History of colonoscopy History of tooth extraction Hx of transurethral resection of prostate H/O gastric bypass 2004 Family History Sister Family history of diabetes mellitus Social History Smoking Status: Former smoker Tobacco Type: Cigarettes Second Hand Exposure: No; Do You Dip or Chew Tobacco: No; Hx Alcohol Use: No Hx Substance Use: No Preferred Language: Yoruba Communication Ability: Effective Communication Ability Comment: can be forgetful Small Craft Operator Required: No Beliefs That Will Affect Care: None marital status: Current Living Situation: Spouse Current Living Situation Comment: At home with current occupational status: retired Feels Safe at Home: Yes Safety Concerns: Feels Safe At This Time Diet: regular Seatbelt Use: always Assistive Devices: Denture - Lower and Walker Review of Systems Review of Systems: All systems reviewed & are unremarkable except as noted in HPI & below Physical Exam Constitutional: WD/WN, vitals as above Eyes: + anicteric sclerae; normal pupil size Respiratory: normal respiratory effort, lungs clear to auscultation Cardiovascular: Rate/Rhythm: + tachycardic and + irregularly irregular Heart Sounds: no murmur Extremities: normal capillary refill; no calf tenderness and no pedal edema Gastrointestinal (Abdomen): normal bowel sounds, soft, nontender, no hepatosplenomegaly Skin: erythema and swelling originating from his penectomy site spread around his groin Neurologic: moves all extremities and awake; not confused Psychiatric: Orientation: alert, oriented to person and oriented to place; + not oriented to time Results & Data Results & Data Vital Signs (Past 12 Hours) Vital Signs Temp Pulse Pulse Resp BP BP Pulse Ox 05/23/23 17:30 99 H 18 132/88 98 05/23/23 17:04 104 H 05/23/23 16:23 96 05/23/23 15:42 36.4 C L 101 H 98 H 113/70 98 O2 Del Method 05/23/23 17:30 Room Air 05/23/23 17:04 05/23/23 16:23 Room Air 05/23/23 15:42 Room Air Laboratory Results Abnormal lab results 05/23/23 05/23/23 05/23/23 Range/Units 16:15 16:20 16:26 RBC 3.22 L (4.70-6.10) M/uL Hgb 10.3 L (14.0-18.0) g/dl Hct 31.8 L (42.0-52.0) % RDW Std Deviation 56.6 H (36.4-46.3) fL RDW Coeff of Yinka 15.6 H (11.5-14.5) % Leon # (Auto) 0.93 H (0.11-0.59) K/uL Chloride 116 H (98-107) mmol/L Carbon Dioxide 20 L (21-32) mmol/L BUN 30 H (6-23) mg/dl Creatinine 2.17 H (0.6-1.4) mg/dl Calcium 7.5 L (8.6-10.3) mg/dl Total Protein 5.4 L (6.0-8.3) gm/dl Albumin 2.3 L (3.4-5.0) gm/dl Albumin/Globulin Ratio 0.7 L (0.9-2) Lipase 3 L (11-82) U/L Urine Appearance Cloudy A (Clear) Urine Protein 1+ H (Negative) Urine Blood 1+ H (Negative) Ur Leukocyte Esterase 3+ H (Negative) Urine WBC (Auto) >30 H (0-5) /hpf Urine RBC (Auto) 5-10 H (0-4) /hpf U Epithel Cells (Auto) 5-10 H (0-5) /lpf Urine Bacteria (Auto) 1+ H (Negative) Diagnostic Findings ULTRASOUND TESTES AND SCROTUM CLINICAL HISTORY: Scrotal/testicular pain and swelling. Erythema. COMPARISON STUDY: No priors. TECHNIQUE: Real-time, grayscale, and color Doppler sonography of the testes and scrotum is performed. Images are reviewed in the transverse and longitudinal planes. FINDINGS: The testes are normal in size. The testes are heterogeneous, left greater than right. The right testis measures 3.4 x 2.6 x 1.7 cm and the left testis measures 2.9 x 1.8 x 2.4 cm. No intratesticular mass is seen. Testicular blood flow is normal and symmetric. Normal Doppler waveforms are identified in both testes. The epididymal heads are normal heterogeneous. No hypervascularity showing color imaging. There is a small minimally complex left-sided hydrocele. Trace hydrocele seen on the right. No varicocele is seen. There is marked scrotal wall thickening and edema. No fluid collection is seen to suggest abscess. IMPRESSION: 1. Heterogeneous testes with no acute testicular abnormality identified. 2. There is marked scrotal wall thickening and edema. Correlate clinically for evidence of cellulitis. 3. Small and minimally complex left-sided hydrocele. Trace hydrocele is noted on the right. Medications Administered ER medications given: Ceftriaxone 2000 mg IV Normal saline 1000 mL bolus Morphine 4 mg IV Ondansetron 4 mg IV Vancomycin 2000 mg IV ECG Rate (beats per minute): 94 Rhythm: atrial fibrillation Findings: no acute ischemic change Comparison ECG Date: from (April 27, 2023) Change: the following changes noted (Inverted T waves replaced T wave flattening in inferior leads) Code Status & VTE Plan Code Status Full VTE Prophylaxis Plan VTE Prophylaxis will be ordered: Yes PG Care Time/CCT Total # of Minutes Spent Total Time Spent with Patient: Total time spent is greater than 50% in coordination of care (as documented) at patient's floor/unit and/or counseling patient: Coding Level of Care Code 35236 INT INP/OBS CARE 3/75MIN Diagnoses Cellulitis L03.90 Site of cellulitis: unspecified site Asymptomatic bacteriuria R82.71 Atrial fibrillation I48.91 Stage 3b chronic kidney disease N18.32 (1) Cellulitis Site of cellulitis: unspecified site Qualified Code(s): L03.90 - Cellulitis, unspecified
--- NOTE | 2023-05-23 20:26 | Urology Consultation ---
Date of Consultation May 23, 2023 Assessment & Plan (1) UTI (urinary tract infection): Patient has been admitted on the hospitalist service. From a urologic perspective we recommend the following: The patient has been placed on antibiotics In the form of vancomycin and Rocephin. Blood and urine cultures have been sent. Antibiotic should be continued and be tailored based on culture results as well as the patient's clinical response I discussed case with my attending physician Dr. Weathers and he is recommended due to the patient's history of penile cancer and his underlying infection that a pelvic CT scan be performed for further evaluation of this area The medical service has requested a straight cath for a clean urine specimen. If the patient does not have any evidence of urinary retention on CT scan or bladder scan then performing straight cath would be unnecessary. Will revisit this topic after the patient's CT scan is performed. Addendum: CT scan of the pelvis was performed. This showed the patient had mildly enlarged groin lymph nodes. There is moderate scrotal edema with bilateral hydroceles. There is no evidence of abscess. The patient was noted to have some thickening of the bladder wall and the diffuse nature. This was felt to potentially represent cystitis. After the patient underwent his CT scan I revisited with him at the bedside. The patient notes that he is having some difficulty with urinary incontinence. The patient did void at the time of my arrival to the bedside. Nursing staff BladderScan the patient for approximately 50 cc of urine. As the patient has minimal postvoid residual and and a urine specimen has already been obtained we will avoid placing a Lynch catheter at this time, particularly in light of the patient's penile surgery. Will monitor the patient's clinical response to the selected antibiotics he is receiving with further recommendations to follow. (2) Cellulitis: History of Present Illness Reason for Consultation: Perineal cellulitis History of penile resection Urinary tract infection History of Present Illness This is an 88-year-old male who presented to the emergency department secondary to erythema and pain in his perineal region. Patient says that for the past 24 hours he has been having dysuria. He denies any fevers, shakes, or chills. Patient says that he does have a history of squamous cell carcinoma of the penis and had a penile resection at [facility] earlier this year. Patient says that he has had cellulitis in this area before and it was similar to what his presenting symptoms are at this time. The patient notes that since his penile resection he is able to urinate but the urine tends to dribble out of his urethra and he feels that this may be contributing to his underlying cellulitis. Since arrival to the hospital the patient has had labs and imaging which independent reviewed. The patient was noted to undergo a scrotal ultrasound that showed no testicular abnormalities. There is moderate marked scrotal wall thickening and edema consistent with cellulitis. Labs include a CBC her white blood cell count and platelet count were normal. Hemoglobin and hematocrit were 10.3 and 31.8. Chemistry profile showed sodium and potassium were within normal range BUN and creatinine were 30 and 2.1. (This level of creatinine was near the patient's baseline) a urinalysis was performed that showed 3+ leukocyte Estrace and was negative for nitrites. The patient did have greater than 30 white blood cells per high-power field and 1+ bacteria. At the time of interview he was resting comfortably in bed and he was in no distress. Allergies Allergy/AdvReac Type Severity Reaction Status Date / Time iron [From Venofer] AdvReac Mild warm Verified 05/04/23 13:21 sensation/flushing, discomfort in arm in which it was i Home Medications Medication Instructions Recorded Confirmed Type calcium carbonate 500 mg-vitamin 1 tab PO QAM 12/18/19 05/23/23 History D3 5 mcg (200 unit) tablet (Calcium 500 + D) vitamin B complex 1 tab PO QAM 12/18/19 05/23/23 History Lactobacillus acidophilus 10 10,000 mmu cells PO QDD 01/18/21 05/23/23 History billion cell capsule (Probiotic) gabapentin 100 mg capsule 100 mg PO BID #180 caps 06/19/22 05/23/23 Rx tamsulosin 0.4 mg capsule 0.4 mg PO DAILY #90 caps 06/19/22 05/23/23 Rx multivitamin 1 tab PO DAILY 08/01/22 05/23/23 History sodium bicarbonate 650 mg tablet 650 mg PO BID Stomach upset #180 08/10/22 05/23/23 Rx tabs calcitriol 0.25 mcg capsule 0.25 mcg PO DAILY #90 caps 10/06/22 05/23/23 Rx levothyroxine 25 mcg tablet 25 mcg PO DAILYBB 90 days #90 tabs 10/12/22 05/23/23 Rx (Synthroid) magnesium oxide 400 mg (241.3 mg 400 mg PO BID #180 tabs 11/23/22 05/23/23 Rx magnesium) tablet omeprazole 40 mg capsule,delayed 40 mg PO BID 90 days #180 caps 11/23/22 05/23/23 Rx release acetaminophen 500 mg tablet 1,000 mg PO Q8H PRN Pain 12/22/22 05/23/23 History (Tylenol Extra Strength) metoprolol tartrate 25 mg tablet 25 mg PO BID #180 tabs 01/25/23 05/23/23 Rx tramadol 50 mg tablet 25 mg (1/2 x 50 mg) PO Q8H PRN 03/04/23 05/23/23 Rx pain #15 tabs oxybutynin chloride 5 mg 5 mg PO DAILY urinary discomfort 03/22/23 05/23/23 History tablet,extended release 24 hr loperamide 2 mg capsule 2 mg PO Q6H PRN loose stool #60 03/29/23 05/23/23 Rx caps menthol 0.44 %-zinc oxide 20.6 % 1 applic topical QID PRN skin 03/29/23 05/23/23 Rx topical ointment (Calmoseptine) irritation on groin #113 grams apixaban 2.5 mg tablet (Eliquis) 2.5 mg PO BID #180 tabs 04/15/23 05/23/23 Rx clopidogrel 75 mg tablet (Plavix) 75 mg PO DAILY #90 tabs 04/15/23 05/23/23 Rx ferrous sulfate 325 mg (65 mg 325 mg PO DAILY 04/27/23 05/23/23 History iron) tablet,delayed release lidocaine 5 % topical patch 1 patch topical DAILY PRN Pain 05/23/23 05/23/23 History (DermacinRx Lidocan) Patient History Medical History Acute UTI Pain in penis Lumbosacral facet joint syndrome Discogenic lumbar pain Acute metabolic encephalopathy UTI (urinary tract infection) Rib pain on left side Syncopal episodes COVID-19 Penile cancer KENROY (acute kidney injury) Unresponsiveness Anemia of chronic disease Diarrhea SCC (squamous cell carcinoma), penis Chronic pruritus Hypothyroidism Chronic renal insufficiency, stage IV (severe) Secondary hyperparathyroidism of renal origin Orthostatic hypotension Vitamin D deficiency SBO (small bowel obstruction) Small bowel obstruction due to adhesions Rectal bleed BRBPR (bright red blood per rectum) Dementia Hyperkalemia Acute cholecystitis Substernal chest pain resolved per pt Dysphagia "trouble keeping foods down" Fall walker and cane -- fall risk. Colitis Concussion Degenerative disc disease Osteoarthritis History of bleeding ulcers Diabetes mellitus, type 2 diet controlled Hx of migraines Hx of sleep apnea no device Atrial fibrillation no cardioversions/ no pacer. treated with medication and follows with PCP Balanoposthitis Phimosis DDD (degenerative disc disease), lumbar Atrial fibrillation (04/22/12) Peptic ulcer disease GERD (gastroesophageal reflux disease) BPH w urinary obs/LUTS Anal fistula Fall LAST FALL 1 WEEK AGO Hypoglycemia Bradycardia Surgical History S/P laparoscopic cholecystectomy (09/17/20) Laparoscopic Cholecystectomy with Cholangiogram with akira drain 09/17/20 Dr. Atkinson Hx of circumcision 2 yrs ago H/O knee surgery "MULTIPLE KNEE SURGERIES"- R/L History of total shoulder replacement LEFT History of total knee replacement RT/LEFT History of esophagogastroduodenoscopy (EGD) History of colonoscopy History of tooth extraction Hx of transurethral resection of prostate H/O gastric bypass 2004 Family History Sister Family history of diabetes mellitus Social History Smoking Status: Unknown if ever smoked Tobacco Type: Cigarettes Second Hand Exposure: No; Do You Dip or Chew Tobacco: No; Hx Alcohol Use: No Hx Substance Use: No Preferred Language: Slovak Communication Ability: Effective Communication Ability Comment: can be forgetful Enrollment Coordinator Required: No Beliefs That Will Affect Care: None marital status: Current Living Situation: Spouse Current Living Situation Comment: At home with current occupational status: retired Feels Safe at Home: Yes Diet: regular Seatbelt Use: always Assistive Devices: Cane, Scooter/Electric Scooter, Walker and Wheelchair Review of Systems Constitutional: no fever and no chills Ear, Nose, Mouth, Throat: no hearing loss Respiratory: no cough and no dyspnea Cardiovascular: no chest pain Gastrointestinal: no abdominal pain, no nausea and no vomiting Genitourinary: + as per Subjective / HPI Musculoskeletal: no back pain Integumentary: no rash Neurologic: no localized weakness Physical Exam Constitutional: WD/WN, vitals as above Eyes: no conjunctival abnormality ENMT: Ears: no hearing impairment and no external ear abnormality Mouth: no oropharynx abnormality Neck: trachea midline Respiratory: normal respiratory effort; no respiratory distress and no labored breathing Cardiovascular: Rate/Rhythm: regular rate and regular rhythm Gastrointestinal (Abdomen): Abdomen is soft and nondistended. There is no rebound tenderness or guarding or pain with palpation. Musculoskeletal: No calf tenderness Skin: no rashes Neurologic: moves all extremities Psychiatric: A+Ox3, euthymic affect Genitourinary: The patient's genital/perineum/groin region was examined. The patient had marked cellulitis in his genital region into his scrotum. Cellulitis did not appear to extend into the perineal area. There is no crepitus in the soft tissue. There are no open areas, cuts, or excoriations. Patient did have evidence of a prior penile resection. The tissue around the patient's urethra and scrotum were markedly erythematous. Results & Data Vital Signs (Past 12 Hours) Vital Signs Temp Pulse Pulse Resp BP BP Pulse Ox 05/23/23 20:10 104 H 22 93 05/23/23 20:00 115/81 05/23/23 20:00 97 H 24 97 05/23/23 19:50 101 H 15 98 05/23/23 19:40 100 H 15 99 05/23/23 19:30 104 H 17 95 05/23/23 19:30 137/95 05/23/23 19:20 95 H 19 96 05/23/23 19:10 103 H 22 90 05/23/23 19:00 107 H 23 98 05/23/23 19:00 129/90 05/23/23 18:50 97 H 15 99 05/23/23 18:40 100 H 15 97 05/23/23 18:30 134/87 05/23/23 18:30 101 H 19 98 05/23/23 18:20 108 H 15 100 05/23/23 18:20 132/88 05/23/23 17:30 99 H 18 132/88 98 05/23/23 17:12 131/85 05/23/23 17:12 94 H 15 96 05/23/23 17:10 99 H 16 98 05/23/23 17:04 104 H 05/23/23 17:00 100 H 19 95 05/23/23 16:56 105 H 15 95 05/23/23 16:23 96 05/23/23 15:42 36.4 C L 101 H 98 H 113/70 98 O2 Del Method 05/23/23 20:10 05/23/23 20:00 05/23/23 20:00 05/23/23 19:50 05/23/23 19:40 05/23/23 19:30 05/23/23 19:30 05/23/23 19:20 05/23/23 19:10 05/23/23 19:00 05/23/23 19:00 05/23/23 18:50 05/23/23 18:40 05/23/23 18:30 05/23/23 18:30 05/23/23 18:20 05/23/23 18:20 05/23/23 17:30 Room Air 05/23/23 17:12 05/23/23 17:12 05/23/23 17:10 05/23/23 17:04 05/23/23 17:00 05/23/23 16:56 05/23/23 16:23 Room Air 05/23/23 15:42 Room Air PG Care Time/CCT Total # of Minutes Spent Total Time Spent with Patient: Total time spent is greater than 50% in coordination of care (as documented) at patient's floor/unit and/or counseling patient: Coding Level of Care Code 78112 INT INP/OBS CARE 3/75MIN Diagnoses UTI (urinary tract infection) N39.0; R31.9 Hematuria presence: with hematuria Urinary tract infection type: site unspecified Cellulitis L03.90 Site of cellulitis: unspecified site (1) UTI (urinary tract infection) Hematuria presence: with hematuria Urinary tract infection type: site unspecified Qualified Code(s): N39.0 - Urinary tract infection, site not specified; R31.9 - Hematuria, unspecified (2) Cellulitis Site of cellulitis: unspecified site Qualified Code(s): L03.90 - Cellulitis, unspecified
[2023-05-23] MEDS ORDERED: OPTIRAY 320 500ml IV ONE (20:30)
[2023-05-23 20:41] LABS: C Reactive Protein 1.39 mg/dl (0-0.5)
--- NOTE | 2023-05-23 21:20 | CT Scan Report ---
Exam(s): CT PELVIS With Contrast IV Amt: 88ml optiray 320 EXAM: CT Pelvis With Intravenous Contrast CLINICAL HISTORY: Reason for exam: perineal cellultiis, urology request, prior SCC pe. TECHNIQUE: Axial computed tomography images of the pelvis with intravenous contrast. CTDI is 24.51 mGy and DLP is 1048.96 mGy-cm. Automated exposure control was utilized for the study. A dose lowering technique was utilized adhering to the principles of ALARA. CONTRAST: Patient received 88ml optiray 320 of IV contrast COMPARISON: No relevant prior studies available. FINDINGS: Bowel: Unremarkable. No obstruction. No mucosal thickening. Appendix: No findings to suggest acute appendicitis. Intraperitoneal space: Unremarkable. No free air. No significant fluid collection. Bladder: Diffuse wall thickening of the urinary bladder likely secondary to incomplete distention, however cystitis could have a similar appearance. Correlate clinically. Reproductive: Enlarged prostate measuring 5.7 x 3.7 cm. Moderate scrotal edema with bilateral hydroceles. Bones/joints: No acute fracture. No dislocation. Soft tissues: See above. Vasculature: Diffuse atherosclerotic disease. No lower abdominal aortic aneurysm. Lymph nodes: Mildly enlarged bilateral groin lymph nodes. Other findings: No evidence of abscess. IMPRESSION: 1. Mildly enlarged bilateral groin lymph nodes. 2. Moderate scrotal edema with bilateral hydroceles. 3. No evidence of abscess. Electronically signed by: Roxana Saleh MD 05/23/23 21:19 PM
[2023-05-23] MEDS ORDERED: LIDOCAINE 5% 1 PATCH TD PRN (21:34)
[2023-05-23] MEDS ORDERED: traMADol HCL 50 MG TABLET PO PRN (21:34)
[2023-05-23] MEDS: PLASMA-LYTE A 1,000 ML IV SCH (21:48)
[2023-05-23] MEDS: MICONAZOLE NITRATE POWDER 85 GM EXT SCH (22:33)
[2023-05-23] MEDS: PANTOprazole 40 MG TAB PO SCH (22:33)
[2023-05-23] MEDS: APIXABAN 2.5 MG TAB PO SCH (22:34)
[2023-05-23] MEDS: GABAPENTIN 100 MG CAP PO SCH (22:34)
[2023-05-23] MEDS: MAGNESIUM OXIDE 400 MG TAB PO SCH (22:35)
[2023-05-23] MEDS: METOPROLOL TARTRATE 25 MG TAB PO SCH (22:36)
[2023-05-23] MEDS: SODIUM BICARBONATE 650 MG TAB PO SCH (22:48)
[2023-05-24] MEDS: ACETAMINOPHEN 500 MG TAB PO PRN (03:50)
[2023-05-24] MEDS: LEVOTHYROXINE SODIUM 25 MCG TABLET PO SCH (05:44)
[2023-05-24] MEDS: PLASMA-LYTE A 1,000 ML IV SCH ×2 (05:45→13:00)
[2023-05-24 07:30] LABS: Basophils # (auto) 0.06 K/uL (0.00-0.20); Eosinophils # (auto) 0.34 K/uL (0.00-0.50); Eosinophils % (auto) 5.5 %; Hematocrit (blood only) 32.2 % (42.0-52.0); Hemoglobin 10.2 g/dl (14.0-18.0); Immature Granulocytes # (auto) 0.01 K/uL (0.01-0.20); Immature Granulocytes % (auto) 0.2 %; Lymphocytes # (auto) 1.28 K/uL (1.20-3.40); Lymphocytes % (auto) 20.7 %; Mean Corpuscular Hemoglobin 31.5 pg (25.0-34.0); Mean Corpuscular Hgb Conc 31.7 g/dL (32.0-36.0); Mean Corpuscular Volume 99.4 fL (80.0-100.0); Mean Platelet Volume 10.2 fL (9.4-12.4); Monocytes # (auto) 0.69 K/uL (0.11-0.59); Monocytes % (auto) 11.2 %; Neutrophils # (auto) 3.79 K/uL (1.40-6.50); Neutrophils % (auto) 61.4 %; Platelet Count 237 K/uL (130-400); RDW Coefficient of Variation 15.5 % (11.5-14.5); RDW Standard Deviation 57.1 fL (36.4-46.3); Red Blood Count 3.24 M/uL (4.70-6.10); White Blood Count 6.17 K/ul (4.8-10.8)
[2023-05-24 07:46] LABS: BUN Creatinine Ratio 14.6 (10-20); Calcium 7.5 mg/dl (8.6-10.3); Creatinine Clr Calc Pharmacy 33.7 ml/min; Est GFR (African American) 38.9 ml/min; Est GFR (Non-African American) 33.6 ml/min; Potassium 4.4 mmol/L (3.5-5.1)
--- NOTE | 2023-05-24 08:01 | Hospitalist Progress Note ---
Date of Service May 24, 2023 Assessment & Plan (1) Cellulitis: Plan: Presented to ER w/ pain/redness/welling of the groin with increased pain/swelling in setting of hx squamous cell carcinoma s/p penectomy at [facility] [place] earlier this year * Of note, recent hx w/ admission 04/20 for sepsis/bacteremia 2nd to cellulitis of groin w/ + blood cultures at that time for enterococcus faecalis and placed on IV Ampicillin and discharged 04/23. On dc instructions reports was dc on Augmentin to cover for possible bacteremia/contaminated vial/cellulitis (patient reports taking for ?about 10 days). * Then sent from Cardiology office 04/27 to ER for mild symptomatic hypotension concerning for sepsis vs dehydration and dc 04/28 WBC 6.7k. Lactic 1.2, procal <0.05 on admission. ESR 37, CRP 1.39 Urology on consult Scrotal US w/ moderated-marked scrotal thickening/edema c/w cellulitis. CT pelvis obtained - NO evidence for abscess but noting mildly enlarged lymph nodes, moderate scrotal edema w/ b/l hydroceles. Given Ceftriaxone/Vancomycin in ER nd continued on IV Ceftriaxone * does have +MRSA nasal swab (no prior hx of this, no abscess on imaging). If becoming septic, rec adding Dapto over Vanco given hx CKD Follow up blood cultures - notably taken after initial antibiotics Evaluated around noon 05/24 w/ erythema in markings but significant swelling/redness/thickened skin, tender to palpation to scrotum/thigh/perineum Inquired about hx diabetes, patient did endorse--> appears last a1c 6.5 earlier this year, not on any medication. Decision to switch from Ceftriaxone to Cefepime to include coverage for pseudomonas given inquired about if patient had hx DM and he endorsed (not on medications, but last A1c 6.5 earlier this year). ?early Shorty's. Did message Urology FIELD OBSERVER this morning about if they had any concerns as well about possible Shorty's/etc and expanding abx, agreed w/ expanding abx at present time. no comment about Shorty's. ID consultation placed as well BSG AC/HS added and will monitor BSGs and add SSI if needed. A1c added to AM labs Monitor erythema/markings Consult for wound RN Monitor labs/exam on repeat (2) Asymptomatic bacteriuria: Plan: UA taken as "clean catch" although essential impossible to get a good clean catch given he prior penectomy. 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 Given concerns for above w/ Shorty's/diabetic switching to Cefepime and will follow up urine cx Added I&O and will monitor (3) Atrial fibrillation: Plan: hx of such. rate controlled continues on metoprolol BID, eliquis 2.5mg BID (dosed appropriately) - adding mag to AM labs/replacement if need continued monitoring on customer retention representative K/mag w/ AM labs (4) CKD (chronic kidney disease): Plan: Cr 2.17 on admission IVF ordered x 3 bags Cr presently 1.78 and on conitnued IVF for dehydration on admission/infection as above Bicarb PO BID for acidemia Renal dose meds/avoid nephrotoxins as able BMP in AM (5) Diabetes mellitus, type 2: Plan: A1c 6.5 in August, not on any meds Added A1c to am labs, added BSG AC/HS for now and will add SSI if needed Monitor Plan VTE prophylaxis - Eliquis, renally dosed likely need to change to full admission, monitor PT/OT evals added given repeated hospitalizations to see about any additional needs at discharge Admission and Anticipated Discharge Date Admission Date: May 23, 2023 Subjective eval this afternoon around lunch, laying in bed. Did eat breakfast (noting was not provided anything all day in ER yesterday). Reports at home using multiple rolled up harley pads to keep dry w/ continued incontinence/dribbling. Purewick in place w/ concentrated yellow urine. Mouth slightly dry/on IVF and reports he is drinking without issue. Reports he thinks he is doing a little better today but having some increased swelling to his R groin. Skin is thickened. Inquired if patient diabetic, he confirms he is. Not on any medications for such. Discussed concerns for possible underlying fourniere's developing and will discuss w/ supervising provider and likely expand abx therapy at least for now. No fever/chills, chest pain or shortness of breath reported at this time. Questions/concerns addressed at this time. Physical Exam Physical Exam: General: chronically ill appearing male resting in bed, NAD HEENT: pupils equal/reactive, mm slightly dry (reports improving), trachea midline Resp: even/unlabored, no w/c/r, on room air CV: irregularly irregular (rates 90s at present on telemetry), no significant mrg, trace pedal edema, calves nontender GI: +BS, slight distension but soft/NT : purewick draining yellow urine in cannister, significant scrotal edema/erythema, +tender to palpation (reports decreased pain but increased swelling from day prior), significant skin thickening to bilateral thighs w/ associated edema. Redness w/i markings but darkened/more purple appears to the groin/perineum MSK/Neuro: non focal, no slurred speech/facial droop. answering questions appropriately Psych: AOx3, cooperative with exam Results & Data Results & Data Vital Signs (Past 12 Hours) Vital Signs Temp Pulse Pulse Resp BP BP Pulse Ox 05/24/23 07:27 78 05/24/23 03:20 36.3 C L 100 H 20 107/67 92 05/23/23 22:00 36.4 C L 90 20 114/74 95 05/23/23 21:58 99 H 05/23/23 21:00 36.8 C 98 H 16 134/88 98 05/23/23 20:10 104 H 22 93 05/23/23 20:00 115/81 05/23/23 20:00 97 H 24 97 05/23/23 19:50 101 H 15 98 O2 Del Method 05/24/23 07:27 05/24/23 03:20 Room Air 05/23/23 22:00 Room Air 05/23/23 21:58 05/23/23 21:00 Room Air 05/23/23 20:10 05/23/23 20:00 05/23/23 20:00 05/23/23 19:50 Diagnostic Findings Scrotum Ultrasound 05/23/23 16:06 ULTRASOUND TESTES AND SCROTUM CLINICAL HISTORY: Scrotal/testicular pain and swelling. Erythema. COMPARISON STUDY: No priors. TECHNIQUE: Real-time, grayscale, and color Doppler sonography of the testes and scrotum is performed. Images are reviewed in the transverse and longitudinal planes. FINDINGS: The testes are normal in size. The testes are heterogeneous, left greater than right. The right testis measures 3.4 x 2.6 x 1.7 cm and the left testis measures 2.9 x 1.8 x 2.4 cm. No intratesticular mass is seen. Testicular blood flow is normal and symmetric. Normal Doppler waveforms are identified in both testes. The epididymal heads are normal heterogeneous. No hypervascularity showing color imaging. There is a small minimally complex left-sided hydrocele. Trace hydrocele seen on the right. No varicocele is seen. There is marked scrotal wall thickening and edema. No fluid collection is seen to suggest abscess. IMPRESSION: 1. Heterogeneous testes with no acute testicular abnormality identified. 2. There is marked scrotal wall thickening and edema. Correlate clinically for evidence of cellulitis. 3. Small and minimally complex left-sided hydrocele. Trace hydrocele is noted on the right. ACT 112: Negative or not required by law. Electronically signed by: Guillermo Fitzgerald M.D. 05/23/2023 5:[address] 05/23/23 19:48 Exam(s): CT PELVIS With Contrast IV Amt: 88ml optiray 320 EXAM: CT Pelvis With Intravenous Contrast CLINICAL HISTORY: Reason for exam: perineal cellultiis, urology request, prior SCC pe. TECHNIQUE: Axial computed tomography images of the pelvis with intravenous contrast. CTDI is 24.51 mGy and DLP is 1048.96 mGy-cm. Automated exposure control was utilized for the study. A dose lowering technique was utilized adhering to the principles of ALARA. CONTRAST: Patient received 88ml optiray 320 of IV contrast COMPARISON: No relevant prior studies available. FINDINGS: Bowel: Unremarkable. No obstruction. No mucosal thickening. Appendix: No findings to suggest acute appendicitis. Intraperitoneal space: Unremarkable. No free air. No significant fluid collection. Bladder: Diffuse wall thickening of the urinary bladder likely secondary to incomplete distention, however cystitis could have a similar appearance. Correlate clinically. Reproductive: Enlarged prostate measuring 5.7 x 3.7 cm. Moderate scrotal edema with bilateral hydroceles. Bones/joints: No acute fracture. No dislocation. Soft tissues: See above. Vasculature: Diffuse atherosclerotic disease. No lower abdominal aortic aneurysm. Lymph nodes: Mildly enlarged bilateral groin lymph nodes. Other findings: No evidence of abscess. IMPRESSION: 1. Mildly enlarged bilateral groin lymph nodes. 2. Moderate scrotal edema with bilateral hydroceles. 3. No evidence of abscess. Electronically signed by: Roxana Saleh MD 05/23/23 21:19 PM PG Care Time/CCT Total # of Minutes Spent Total Time Spent with Patient: Total time spent is greater than 50% in coordination of care (as documented) at patient's floor/unit and/or counseling patient: Coding Level of Care Code 57724 SUB INP/OBS CARE 3/50MIN Diagnoses Cellulitis L03.90 Site of cellulitis: unspecified site Asymptomatic bacteriuria R82.71 Atrial fibrillation I48.91 Chronic kidney disease, unspecified CKD stage N18.9 Chronic kidney disease stage: unspecified stage Diabetes mellitus, type 2 E11.9 (1) Cellulitis Site of cellulitis: unspecified site Qualified Code(s): L03.90 - Cellulitis, unspecified (4) CKD (chronic kidney disease) Chronic kidney disease stage: unspecified stage Qualified Code(s): N18.9 - Chronic kidney disease, unspecified
--- NOTE | 2023-05-24 08:58 | Urology Progress Note ---
Date of Service May 24, 2023 Assessment & Plan (1) Cellulitis: (2) UTI (urinary tract infection): Plan: Follow-up of scrotal cellulitis; UTI; hx of penectomy Afebrile, hemodynamically stable Labs reviewedcreatinine 1.78, WBC 6.17, hemoglobin 10.2 Scrotal ultrasound with marked scrotal wall thickening and edema, small bilateral hydroceles Pelvic CT without evidence of abscess Urine culture with 3 types of organisms present, all high counts Blood cultures pending Treated with vancomycin and ceftriaxone --> transitioned to cefepime Continue supportive care and antibiotics Purewick in place due to incontinence Keep scrotum/inguinal area clean and dry Continue to monitor without catheter for now will follow Admission and Anticipated Discharge Date Admission Date: May 23, 2023 Subjective Patient seen and examined at bedside this morning, chart reviewed Reports scrotal swelling Voiding, incontinent Purewick catheter in place draining yellow urine No fever or chills Review of Systems Constitutional: as per Subjective / HPI Genitourinary: + as per Subjective / HPI Physical Exam Constitutional: well developed and well nourished; no acute distress Respiratory: normal respiratory effort; no respiratory distress and no labored breathing Gastrointestinal (Abdomen): Inspection/Auscultation: abdomen normal to inspection; abdomen not distended Musculoskeletal: Head/Neck/Chest: normocephalic Skin: ecchymosis above left eyebrow Neurologic: moves all extremities and awake Psychiatric: Orientation: alert and oriented x 3 Genitourinary: Purewick catheter in place with yellow urine Prior penile resection. Moderate scrotal edema noted with erythema. Cellulitis noted to the scrotum and bilateral inguinal folds. Erythema within the markings. No crepitus, open areas or drainage. Results & Data Vital Signs (Past 12 Hours) Vital Signs Temp Pulse Pulse Resp BP Pulse Ox O2 Del Method 05/24/23 07:27 78 05/24/23 07:19 36.3 C L 79 16 121/78 96 Room Air 05/24/23 03:20 36.3 C L 100 H 20 107/67 92 Room Air 05/23/23 22:00 36.4 C L 90 20 114/74 95 Room Air 05/23/23 21:58 99 H 05/23/23 21:00 36.8 C 98 H 16 134/88 98 Room Air PG Care Time/CCT Total # of Minutes Spent Total Time Spent with Patient: Total time spent is greater than 50% in coordination of care (as documented) at patient's floor/unit and/or counseling patient: Coding Level of Care Code 44949 SUB INP/OBS CARE 2MIN Diagnoses Cellulitis L03.90 Site of cellulitis: unspecified site UTI (urinary tract infection) N39.0; R31.9 Hematuria presence: with hematuria Urinary tract infection type: site unspecified (1) Cellulitis Site of cellulitis: unspecified site Qualified Code(s): L03.90 - Cellulitis, unspecified (2) UTI (urinary tract infection) Hematuria presence: with hematuria Urinary tract infection type: site unspecified Qualified Code(s): N39.0 - Urinary tract infection, site not specified; R31.9 - Hematuria, unspecified
[2023-05-24] MEDS: VITAMIN B COMPLEX TAB PO SCH (09:02)
[2023-05-24] MEDS: APIXABAN 2.5 MG TAB PO SCH ×2 (09:02→20:15)
[2023-05-24] MEDS: CALCIUM 600MG + VIT D 400 IU TAB PO SCH (09:02)
[2023-05-24] MEDS: MULTIVITAMIN TAB PO SCH (09:02)
[2023-05-24] MEDS: ADVANCED PROBIOTIC 1250 MG CAPSULE PO SCH (09:02)
[2023-05-24] MEDS: OXYBUTYNIN CHLORIDE XL 5 MG TABCR PO SCH (09:02)
[2023-05-24] MEDS: CLOPIDOGREL BISULFATE 75 MG TAB PO SCH (09:03)
[2023-05-24] MEDS: GABAPENTIN 100 MG CAP PO SCH ×2 (09:03→20:17)
[2023-05-24] MEDS: CALCITRIOL 0.25 MCG CAPSULE PO SCH (09:03)
[2023-05-24] MEDS: SODIUM BICARBONATE 650 MG TAB PO SCH ×2 (09:03→20:17)
[2023-05-24] MEDS: MAGNESIUM OXIDE 400 MG TAB PO SCH ×2 (09:03→20:14)
[2023-05-24] MEDS: PANTOprazole 40 MG TAB PO SCH ×2 (09:03→20:16)
[2023-05-24] MEDS: TAMSULOSIN HCL 0.4 MG CAP PO SCH (09:04)
[2023-05-24] MEDS: METOPROLOL TARTRATE 25 MG TAB PO SCH ×2 (09:04→20:15)
[2023-05-24] MEDS: MICONAZOLE NITRATE POWDER 85 GM EXT SCH ×2 (09:55→20:15)
[2023-05-24] MEDS ORDERED: CEFEPIME 2,000 MG in SYRINGE 0 ML IV SCH (12:30)
[2023-05-24 13:16] LABS: Magnesium 1.6 mg/dl (1.7-2.4)
--- NOTE | 2023-05-24 15:59 | Infectious Disease Consult ---
Date of Consultation May 24, 2023 Assessment & Plan (1) Cellulitis: (2) UTI (urinary tract infection): (3) Diabetes mellitus, type 2: (4) SCC (squamous cell carcinoma), penis: Plan Cl Watson is an 88-year-old man with history of squamous cell carcinoma s/p penectomy 12/2022), history of ESBL E. coli UTI (10/2022), recent admission 04/20- 04/23/23 for groin cellulitis (BCx + E. faecalis and GPR, treated with Keflex -> 2 days of ampicillin -> Augmentin), who presents to [facility] ED on 05/23/23 with groin/scrotal edema, erythema, and tenderness c/w SSTI. Also with suprapubic tenderness c/f possible UTI though UCx with mixed organisms. Appears to be hemodynamically stable and tentatively with response to antibiotics. Clinical picture more c/w SSTI rather than NSTI though would continue to monitor closely. Imaging without abscess or gas, though a complex L hydrocele was seen on scrotal US. Pt with pyuria though difficult to get a true clean catch urine due to his incontinence and urinary anatomy. He is having some suprapubic tenderness and dysuria (though this includes pain in the surrounding skin) and thus consider the possibility of UTI. UCx with mixed organisms though again may be difficult to get a clean sample. Urology holding off on Lynch at this time. Note history of ESBL E. coli from UCx earlier this year (08/2022 and 10/2022). Would change to meropenem while awaiting repeat BCx. 04/20/23 BCx from recent admission +E. faecalis. Continue meropenem though if having clinical improvement and negative BCx may consider transition to PO Bactrim (potentially in conjunction with Augmentin). Also note +MRSA nares; if having clinical worsening would restart IV vancomycin. Appreciate urology involvement. Continuing to discuss long-term plan including potential additional urological surgery (coordinating with Sury). Patient with urinary incontinence since his penectomy, which seems to be contributing to his recurrence groin SSTIs. 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 Continuing to discuss long-term plan including potential additional urological surgery (coordinating with Sury) ID will continue to follow. Monika Roca MD, [facility] Infectious Diseases [facility] ID Connect direct line: [phone] Consultation Information Consultation was provided via telemedicine using two-way real-time interactive telecommunication between the patient and the telemedicine provider. For the duration of the visit, the provider was performing the assessment from a different facility than the patient. This includesuse of bluetooth stethoscope forauscultationperformed by the telepresenter that the telemedicine provider can hear if described in the physical exam. Tank Charger contact information: Please call [facility] Connect Call Center . (Phone Number For Physician Use Only) After establishing a telemedicine visit, patient was: Patient was verified with two unique identifiers, Patient/authorized rep acknowledged consent and understanding and Gave permission to continue telehealth session Time Spent with Patient: Initial => 75 min History of Present Illness Reason for Consultation: Groin cellulitis Attending Physician: Hardy Tna History of Present Illness Cl Watson is an 88-year-old man with history of squamous cell carcinoma s/p penectomy 12/2022), history of ESBL E. coli UTI (10/2022), recent admission 04/20- 04/23/23 for groin cellulitis (BCx + E. faecalis and GPR, treated with Keflex -> 2 days of ampicillin -> Augmentin), who presents to [facility] ED on 05/23/23 with groin/scrotal edema, erythema, and tenderness c/f SSTI. Recent infection history: - 08/10-08/12/22 with TIA. Of note pt with UCx + ESBL E. coli from that admission, no discussion of urinary symptoms and does not appear that this was treated. - 10/08 and 10/11/22 ED visits: UCx + ESBL E. coli. Treated with a 10-day course of Bactrim. - 04/20-04/23/23 for groin cellulitis. BCx returned with E. faecalis and GPR. Treated with Keflex -> 2 days of ampicillin -> Augmentin for 8 days. - readmission 04/27-04/28/23 for hypotension felt to be from hypovolemia and improvement with IV fluids He reports that since his initial surgery 12/2022, he has been incontinent which he describes as intermittent leaking of urine from his penis. He reports that the amount of fluid leaking in the last ~5 days prior to admission has significantly increased. He has also been having dysuria however this is sensation seems to a burning in his groin/scrotal area on the surrounding skin. His groin and scrotal area have become warm, red, and swollen. In the ED, afebrile, WBC 7. He was initially placed on ceftriaxone -> cefepime. +MRSA nares and he was started on vancomycin. UCx (obtained as clean catch) with mixed organisms. CT pelvis with scrotal edema. Scrotal US with L > R hydroceles and with scrotal wall thickening and edema. BCx NGTD. Urology saw the patient and recommending holding off on Lynch at this time. Of note, the patient has a history of L shoulder replacement, bilateral knee replacement. He has had some L shoulder pain since a recent fall. At the time of evaluation, the patient continues to have pain in his groin. His , at bedside, thinks that the swelling may already be slightly improving since admission. Allergies Allergy/AdvReac Type Severity Reaction Status Date / Time iron [From Venofer] AdvReac Mild warm Verified 05/04/23 13:21 sensation/flushing, discomfort in arm in which it was i Home Medications Medication Instructions Recorded Confirmed Type calcium carbonate 500 mg-vitamin 1 tab PO QAM 12/18/19 05/23/23 History D3 5 mcg (200 unit) tablet (Calcium 500 + D) vitamin B complex 1 tab PO QAM 12/18/19 05/23/23 History Lactobacillus acidophilus 10 10,000 mmu cells PO QDD 01/18/21 05/23/23 History billion cell capsule (Probiotic) gabapentin 100 mg capsule 100 mg PO BID #180 caps 06/19/22 05/23/23 Rx tamsulosin 0.4 mg capsule 0.4 mg PO DAILY #90 caps 06/19/22 05/23/23 Rx multivitamin 1 tab PO DAILY 08/01/22 05/23/23 History sodium bicarbonate 650 mg tablet 650 mg PO BID Stomach upset #180 08/10/22 05/23/23 Rx tabs calcitriol 0.25 mcg capsule 0.25 mcg PO DAILY #90 caps 10/06/22 05/23/23 Rx levothyroxine 25 mcg tablet 25 mcg PO DAILYBB 90 days #90 tabs 10/12/22 05/23/23 Rx (Synthroid) magnesium oxide 400 mg (241.3 mg 400 mg PO BID #180 tabs 11/23/22 05/23/23 Rx magnesium) tablet omeprazole 40 mg capsule,delayed 40 mg PO BID 90 days #180 caps 11/23/22 05/23/23 Rx release acetaminophen 500 mg tablet 1,000 mg PO Q8H PRN Pain 12/22/22 05/23/23 History (Tylenol Extra Strength) metoprolol tartrate 25 mg tablet 25 mg PO BID #180 tabs 01/25/23 05/23/23 Rx tramadol 50 mg tablet 25 mg (1/2 x 50 mg) PO Q8H PRN 03/04/23 05/23/23 Rx pain #15 tabs oxybutynin chloride 5 mg 5 mg PO DAILY urinary discomfort 03/22/23 05/23/23 History tablet,extended release 24 hr loperamide 2 mg capsule 2 mg PO Q6H PRN loose stool #60 03/29/23 05/23/23 Rx caps menthol 0.44 %-zinc oxide 20.6 % 1 applic topical QID PRN skin 03/29/23 05/23/23 Rx topical ointment (Calmoseptine) irritation on groin #113 grams apixaban 2.5 mg tablet (Eliquis) 2.5 mg PO BID #180 tabs 04/15/23 05/23/23 Rx clopidogrel 75 mg tablet (Plavix) 75 mg PO DAILY #90 tabs 04/15/23 05/23/23 Rx ferrous sulfate 325 mg (65 mg 325 mg PO DAILY 04/27/23 05/23/23 History iron) tablet,delayed release lidocaine 5 % topical patch 1 patch topical DAILY PRN Pain 05/23/23 05/23/23 History (DermacinRx Lidocan) Patient History Medical History (Updated 05/24/23 @ 12:38 by Marsha Laurent PA-C) Acute UTI Pain in penis Lumbosacral facet joint syndrome Discogenic lumbar pain Acute metabolic encephalopathy UTI (urinary tract infection) Rib pain on left side Syncopal episodes COVID-19 Penile cancer KENROY (acute kidney injury) Unresponsiveness Anemia of chronic disease Diarrhea SCC (squamous cell carcinoma), penis Chronic pruritus Hypothyroidism Chronic renal insufficiency, stage IV (severe) Secondary hyperparathyroidism of renal origin Orthostatic hypotension Vitamin D deficiency SBO (small bowel obstruction) Small bowel obstruction due to adhesions Rectal bleed BRBPR (bright red blood per rectum) Dementia Hyperkalemia Acute cholecystitis Substernal chest pain resolved per pt Dysphagia "trouble keeping foods down" Fall walker and cane -- fall risk. Colitis Concussion Degenerative disc disease Osteoarthritis History of bleeding ulcers Diabetes mellitus, type 2 diet controlled Hx of migraines Hx of sleep apnea no device Atrial fibrillation no cardioversions/ no pacer. treated with medication and follows with PCP Balanoposthitis Phimosis DDD (degenerative disc disease), lumbar Atrial fibrillation (04/22/12) Peptic ulcer disease GERD (gastroesophageal reflux disease) BPH w urinary obs/LUTS Anal fistula Fall LAST FALL 1 WEEK AGO Hypoglycemia Bradycardia Surgical History S/P laparoscopic cholecystectomy (09/17/20) Laparoscopic Cholecystectomy with Cholangiogram with akira drain 09/17/20 Dr. Atkinson Hx of circumcision 2 yrs ago H/O knee surgery "MULTIPLE KNEE SURGERIES"- R/L History of total shoulder replacement LEFT History of total knee replacement RT/LEFT History of esophagogastroduodenoscopy (EGD) History of colonoscopy History of tooth extraction Hx of transurethral resection of prostate H/O gastric bypass 2004 Family History Sister Family history of diabetes mellitus Social History Smoking Status: Former smoker Tobacco Type: Cigarettes Second Hand Exposure: No; Do You Dip or Chew Tobacco: No; Hx Alcohol Use: No Hx Substance Use: No Preferred Language: Amharic Communication Ability: Effective Communication Ability Comment: can be forgetful Leaf Conditioner Required: No Beliefs That Will Affect Care: None marital status: Current Living Situation: Spouse Current Living Situation Comment: At home with current occupational status: retired Feels Safe at Home: Yes Safety Concerns: Feels Safe At This Time Diet: regular Seatbelt Use: always Assistive Devices: Denture - Lower and Walker Physical Exam Physical Exam: Exam obtained with aid of in-person telepresenter. General: Well-appearing, no acute distress HEENT: Conjunctivae non-injected, sclerae anicteric, MMM, OP clear. Resp: Respirations nonlabored. Abd: Soft, nontender, nondistended. Normal bowel sounds throughout. No masses or organomegaly. : +suprapubic tenderness. Purewick in place. s/p penile resection. Scrotum and penis with erythema, edema, and tenderness. Erythema appears to be within previously drawn borders (drawn 1 day prior). L-sided lateral trunk pain (broken rib), mild L flank pain. Ext: Warm and well-perfused, no edema. No joint warmth or effusions noted. L shoulder pain (pt reports this was since recent fall). Skin: As above. Neuro: Alert & interactive. Grossly non-focal. Psych: Pleasant, appropriate. Results & Data Vital Signs (Past 12 Hours) Vital Signs Temp Pulse Pulse Resp BP Pulse Ox O2 Del Method 05/24/23 15:31 91 H 05/24/23 11:06 36.3 C L 70 16 119/73 96 Room Air 05/24/23 07:27 78 05/24/23 07:19 36.3 C L 79 16 121/78 96 Room Air Diagnostic Findings Diagnostics: 05/23 CT pelvis: 1. Mildly enlarged bilateral groin lymph nodes. 2. Moderate scrotal edema with bilateral hydroceles. 3. No evidence of abscess. 05/23 US Scrotum: 1. Heterogeneous testes with no acute testicular abnormality identified. 2. There is marked scrotal wall thickening and edema. Correlate clinically for evidence of cellulitis. 3. Small and minimally complex left-sided hydrocele. Trace hydrocele is noted on the right. 05/06 CT A/P 1. No bowel obstruction or bowel wall thickening. Normal appendix. 2. Moderate fecal retention. 3. Partially imaged edema again noted along the dorsal aspect of the penis. Correlate with clinical exam findings. 4. Punctate bilateral renal calcifications are again noted which may be vascular or represent nonobstructing calculi. No ureteral calculi or hydronephrosis. 5. Prostamegaly with evidence of chronic outlet obstruction. Correlate with urinalysis order to exclude cystitis. 6. Additional findings as above. Micro Summary: 05/23 MRSA nares positive 05/23 BCx x2: pending 05/23 UCx: mixed organisms 05/23 UA: >30 WBCs, 5-10 RBcs, 5-10 epithelial cells; neg nitrite 3+ LE. Prior 04/23/23 BC x2: NG 04/20/23 BCx: E. faecalis (S-amp), GPRs (nonviable) 04/20 UCx: mixed organisms 01/06/23 UCx: 80k Corynebacterium not urealyticum 10/08/22 UCx: ESBL E. coli (S-erta/nel, S-Bactrim. R-levo/cipro) 08/10/22 UCx: ESBL E. coli (S-erta/nel, S-Bactrim. R-levo/cipro) Antibiotic Summary: meropenem (05/24-present) Prior ceftriaxone (05/23) vancomycin (05/23) cefepime (05/24) (1) Cellulitis Site of cellulitis: unspecified site Qualified Code(s): L03.90 - Cellulitis, unspecified (2) UTI (urinary tract infection) Hematuria presence: with hematuria Urinary tract infection type: site unspecified Qualified Code(s): N39.0 - Urinary tract infection, site not specified; R31.9 - Hematuria, unspecified
[2023-05-24] MEDS ORDERED: cefTRIAXone SODIUM 2,000 MG in DEXTROSE 5 % MINI-B 50 ML IV SCH (16:00)
[2023-05-24] MEDS: MAGNESIUM SULFATE / D5W 1 GM/100 ML BAG IV SCH ×2 (16:58→18:44)
[2023-05-24] MEDS ORDERED: MEROPENEM 2,000 MG in 0.9 % SODIUM CHLORIDE 60 ML IV SCH (17:45)
[2023-05-24] MEDS: MEROPENEM 500 MG in SYRINGE 0 ML IV SCH (20:14)
[2023-05-25] MEDS: MEROPENEM 500 MG in SYRINGE 0 ML IV SCH ×2 (02:20→10:17)
[2023-05-25] MEDS: LEVOTHYROXINE SODIUM 25 MCG TABLET PO SCH (05:24)
--- NOTE | 2023-05-25 06:12 | Electrocardiogram Report ---
Test Reason : Blood Pressure : / mmHG Vent. Rate : 094 BPM Atrial Rate : 000 BPM P-R Int : 000 ms QRS Dur : 076 ms QT Int : 342 ms P-R-T Axes : 000 001 -07 degrees QTc Int : 427 ms Atrial fibrillation Low voltage QRS Abnormal ECG When compared with ECG of 27-APR-2023 16:03, Inverted T waves have replaced nonspecific T wave abnormality in Inferior leads Confirmed by Hardeep Hernandez ([id number]) on 05/25/2023 6:12:23 AM Referred By: REFERRED SELF Confirmed By:Hardeep Hernandez
[2023-05-25 07:14] LABS: Basophils # (auto) 0.05 K/uL (0.00-0.20); Basophils % (auto) 0.7 %; Eosinophils # (auto) 0.52 K/uL (0.00-0.50); Eosinophils % (auto) 7.8 %; Hematocrit (blood only) 33.8 % (42.0-52.0); Hemoglobin 11.2 g/dl (14.0-18.0); Immature Granulocytes # (auto) 0.02 K/uL (0.01-0.20); Immature Granulocytes % (auto) 0.3 %; Lymphocytes % (auto) 22.4 %; Mean Corpuscular Hemoglobin 32.1 pg (25.0-34.0); Mean Corpuscular Hgb Conc 33.1 g/dL (32.0-36.0); Mean Corpuscular Volume 96.8 fL (80.0-100.0); Mean Platelet Volume 10.4 fL (9.4-12.4); Monocytes # (auto) 0.59 K/uL (0.11-0.59); Monocytes % (auto) 8.8 %; Neutrophils # (auto) 4.02 K/uL (1.40-6.50); Platelet Count 271 K/uL (130-400); RDW Coefficient of Variation 15.2 % (11.5-14.5); RDW Standard Deviation 54.5 fL (36.4-46.3); Red Blood Count 3.49 M/uL (4.70-6.10)
[2023-05-25 07:37] LABS: Anion Gap 4 (3-11); BUN Creatinine Ratio 13.4 (10-20); Blood Urea Nitrogen 25 mg/dl (6-23); Calcium 7.9 mg/dl (8.6-10.3); Carbon Dioxide 22 mmol/L (21-32); Chloride 112 mmol/L (98-107); Creatinine Clr Calc Pharmacy 32.5 ml/min; Est GFR (African American) 36.6 ml/min; Est GFR (Non-African American) 31.6 ml/min; Glucose 96 mg/dl (70-99(Fasting)); Magnesium 2.1 mg/dl (1.7-2.4); Sodium 138 mmol/L (136-145)
--- NOTE | 2023-05-25 07:40 | Hospitalist Progress Note ---
Date of Service May 25, 2023 Assessment & Plan (1) Cellulitis: Plan: Presented to ER w/ pain/redness/welling of the groin with increased pain/swelling in setting of hx squamous cell carcinoma s/p penectomy at [facility] earlier this year * Of note, recent hx w/ admission 04/20 for sepsis/bacteremia 2nd to cellulitis of groin w/ + blood cultures at that time for enterococcus faecalis and placed on IV Ampicillin and discharged 04/23. On dc instructions reports was dc on Augmentin to cover for possible bacteremia/contaminated vial/cellulitis (patient reports taking for ?about 10 days). * Then sent from Cardiology office 04/27 to ER for mild symptomatic hypotension concerning for sepsis vs dehydration and dc 04/28 WBC 6.7k. Lactic 1.2, procal <0.05 on admission. ESR 37, CRP 1.39 Urology consulted Scrotal US w/ moderated-marked scrotal thickening/edema c/w cellulitis. CT pelvis obtained - NO evidence for abscess but noting mildly enlarged lymph nodes, moderate scrotal edema w/ b/l hydroceles. Ceftriaxone/Vancomycin in ER and continued on IV Ceftriaxone on admission Blood cxs (noting taken AFTER initial abx), NGTD Evaluated around noon 05/24 w/ erythema in markings but significant swelling/redness/thickened skin, tender to palpation to scrotum/thigh/perineum and given hx diabetes/pre-DM (A1c 5.7) switched to Cefepime (got 1 dose) to include pseudomonal coverage ID consulted, switched to Meropenem last evening (05/24) and significant improvement on exam/reported by patient and discussed w/ ID and switching to Augmentin/Bactrim to complete course but discussed w/ patient would like to monitor continued response on oral antibiotics prior to dc. - Would have periodic monitoring of K/renal function given CKD at baseline at discharge - Monitor for need to adjust dosing if CrCl <30 Per discussion w/ urology patient likely needs scope/possible uro dynamics to evaluate what's going on as usually men 100% continent after penectomy. Sphincter far away from resection so either has to have cystopathy or sphincter failure to explain leakage, neither easily fixable and usually men get CIC for those. Believes superficial infection at present time Possible length of waiting til treatment and causing obstruction w/ penile cancer and caused severe stricture of meatus, likely damaged the bladder and sphincter. Hopefully temporarily but could be permanent CM assisted to reach out to [facility] Urology, appt 06/18 but asked to move up if possible. Wound RN consulted, seen this morning. -Purewick removed, additional dressing for males brought (sample) to try and effective can continue. See note for further instructions PT/OT evals ordered, consider HH therapy/wound care follow-up (2) Asymptomatic bacteriuria: Plan: s above, likely not able to obtain clean catch, BCx NGTD (noting above). Urine cx all high counts/3 types organisms. Repeat cx rec'd. Repeat urine cx pending (agan noting on abx) and can f/u but suspect more SSTI infection Abx switched to Augmentin/Bactrim as above (3) Atrial fibrillation: Plan: hx of such. rate controlled continues on metoprolol BID, eliquis 2.5mg BID (dosed appropriately) Mag added, low, IV replacement ordered and 2.1 on AM labs. K 4.2 Monitor on tele, keep k/mag replete (4) CKD (chronic kidney disease): Plan: Cr 2.17 on admission w/ variable baseline per nephrology notes IVF x 3 bags on admission, continues on Bicarb PO BID (normal on AM labs) Good PO intake reported, feeling much better BUN/Cr 25/1.87 and will monitor BMP in AM given bactrim/augmentin to see if any adjustments needed Renal dose meds/avoid nephrotoxins as able Consider BMP w/ HH at dc to ensure remains stable (5) Diabetes mellitus, type 2: Plan: A1c 6.5 in August, not on any meds. Diet changed to DM diet -Repeat A1c5.7 and has been stable on BSG checks, no SSI needed but will monitor BSGs Plan VTE prophylaxis - Eliquis, renally dosed Changed to full admission. Monitoring response w/ switch to PO abx and PT/OT evals but if continued improvement potential hi 05/26 Admission and Anticipated Discharge Date Admission Date: May 23, 2023 Subjective Patient evaluated this morning, wound care in room and getting alternative agent. He reports feeling the BEST today that he has in a long time. Discussed ID consideration for switch to oral agents but would want to ensure stable/renal function. He is just hoping to be home by [place], will accommodate. No fever/chills, chest pain, shortness of breath. Discussed arranging follow up with Urology, to be in at noon for name of prior provider to be able to arrange follow up (appears Dr Oliver Moore). Questions/concerns addressed at this time. Physical Exam 2 Physical Exam: General: chronically ill appearing male resting in bed, NAD and reports feeling the best he has in a while today, watching plastic surgery show on TV HEENT: pupils equal/reactive, mm improved, trachea midline Resp: even/unlabored, slightly diminished in the bases but on w/c/r, on room air CV; irregularly irregular, rates in 80-90s, +murmur, no pitting edema, trace pedal edema but calves nontender GI :+BS, soft/NT : purewick removed, yellow urine in cannister SIGNIFICANT improvement in erythema/edema to scrotum/thigh, prior partial penectomy/stump w/ yellowish thickened plaque superiorly (cream being applied by wound care), thickened skin to the thighs (worse on right where purewick was) MSK/Neuro: generalized weakness but nonfocal, no slurred speech/facial droop, following commands Psych: AOx3, cooperative with exam Results & Data Results & Data Vital Signs (Past 12 Hours) Vital Signs Temp Pulse Pulse Resp BP Pulse Ox O2 Del Method 05/25/23 03:18 36.4 C L 99 H 18 110/72 97 Room Air 05/25/23 00:00 94 H 05/24/23 23:12 36.6 C 95 H 18 124/79 97 Room Air 05/24/23 20:13 36.5 C 86 16 120/75 97 Room Air Laboratory Results 05/25/23 06:23 05/25/23 06:23 PG Care Time/CCT Total # of Minutes Spent Total Time Spent with Patient: Total time spent is greater than 50% in coordination of care (as documented) at patient's floor/unit and/or counseling patient: Coding Level of Care Code 04905 SUB INP/OBS CARE 3/50MIN Diagnoses Cellulitis L03.90 Site of cellulitis: unspecified site Asymptomatic bacteriuria R82.71 Atrial fibrillation I48.91 Chronic kidney disease, unspecified CKD stage N18.9 Chronic kidney disease stage: unspecified stage Diabetes mellitus, type 2 E11.9 (1) Cellulitis Site of cellulitis: unspecified site Qualified Code(s): L03.90 - Cellulitis, unspecified (4) CKD (chronic kidney disease) Chronic kidney disease stage: unspecified stage Qualified Code(s): N18.9 - Chronic kidney disease, unspecified
[2023-05-25 07:54] LABS: Estimated Average Glucose 117 mg/dl; Hemoglobin A1C 5.7 % (4.5-5.6)
--- NOTE | 2023-05-25 07:55 | Urology Progress Note ---
Date of Service May 25, 2023 Assessment & Plan (1) Cellulitis: (2) Groin rash: Plan: Follow-up UTI, scrotal cellulitis; hx of penectomy Pt afebrile, hemodynamically stable Continue with antibiotics for cellulitis ID consulted and switched to Meropenem Continue topical antifungal Recommend wound consult to assist with management/barrier options Patient did have issues with urinary leakage prior to his surgery Can consider Lynch catheter placement in effort to divert urine, but patient may continue to leak around catheter Can consider suprapubic catheter placement in the future, but again patient may continue to leak from his urethra Could also consider urinary diversion with percutaneous nephrostomy tubes Recommend f/u with S[facility] to discuss options Can consider further evaluation with cystoscopy and urodynamics as outpatient Continue antibiotics, wound management, and supportive care will follow Admission and Anticipated Discharge Date Admission Date: May 23, 2023 Subjective Patient seen and examined at bedside this morning, chart reviewed Continues to have discomfort in scrotal and inguinal region Purewick and diaper in place Denies nausea, vomiting, fever or chills Review of Systems Constitutional: as per Subjective / HPI Genitourinary: + as per Subjective / HPI Physical Exam Constitutional: well developed and well nourished; no acute distress Respiratory: normal respiratory effort; no respiratory distress and no labored breathing Gastrointestinal (Abdomen): Inspection/Auscultation: abdomen normal to inspection; abdomen not distended Musculoskeletal: Head/Neck/Chest: normocephalic Skin: ecchymosis above left eyebrow Neurologic: moves all extremities and awake Psychiatric: Orientation: alert and oriented x 3 Genitourinary: Purewick catheter in place with yellow urine Prior penile resection. Moderate scrotal edema noted with erythema. Cellulitis noted to the scrotum and bilateral inguinal folds. Erythema within the markings. No crepitus, open areas or drainage. Results & Data Vital Signs (Past 12 Hours) Vital Signs Temp Pulse Pulse Resp BP Pulse Ox O2 Del Method 05/25/23 07:00 86 05/25/23 03:18 36.4 C L 99 H 18 110/72 97 Room Air 05/25/23 00:00 94 H 05/24/23 23:12 36.6 C 95 H 18 124/79 97 Room Air 05/24/23 20:13 36.5 C 86 16 120/75 97 Room Air PG Care Time/CCT Total # of Minutes Spent Total Time Spent with Patient: Total time spent is greater than 50% in coordination of care (as documented) at patient's floor/unit and/or counseling patient: Coding Level of Care Code 05254 SUB INP/OBS CARE 07/01MIN Diagnoses Cellulitis L03.90 Site of cellulitis: unspecified site Groin rash R21 (1) Cellulitis Site of cellulitis: unspecified site Qualified Code(s): L03.90 - Cellulitis, unspecified
[2023-05-25] MEDS: TAMSULOSIN HCL 0.4 MG CAP PO SCH (09:55)
[2023-05-25] MEDS: SODIUM BICARBONATE 650 MG TAB PO SCH ×2 (09:55→19:39)
[2023-05-25] MEDS: VITAMIN B COMPLEX TAB PO SCH (09:55)
[2023-05-25] MEDS: CLOPIDOGREL BISULFATE 75 MG TAB PO SCH (09:55)
[2023-05-25] MEDS: OXYBUTYNIN CHLORIDE XL 5 MG TABCR PO SCH (09:55)
[2023-05-25] MEDS: ADVANCED PROBIOTIC 1250 MG CAPSULE PO SCH (09:55)
[2023-05-25] MEDS: MULTIVITAMIN TAB PO SCH (09:55)
[2023-05-25] MEDS: MAGNESIUM OXIDE 400 MG TAB PO SCH ×2 (09:56→19:38)
[2023-05-25] MEDS: PANTOprazole 40 MG TAB PO SCH ×2 (09:56→19:34)
[2023-05-25] MEDS: CALCIUM 600MG + VIT D 400 IU TAB PO SCH (09:56)
[2023-05-25] MEDS: CALCITRIOL 0.25 MCG CAPSULE PO SCH (09:56)
[2023-05-25] MEDS: METOPROLOL TARTRATE 25 MG TAB PO SCH ×2 (09:56→19:34)
[2023-05-25] MEDS: GABAPENTIN 100 MG CAP PO SCH ×2 (09:56→19:37)
[2023-05-25] MEDS: APIXABAN 2.5 MG TAB PO SCH ×2 (09:56→19:38)
[2023-05-25] MEDS: MICONAZOLE NITRATE POWDER 85 GM EXT SCH ×2 (09:57→19:44)
--- NOTE | 2023-05-25 10:01 | Infectious Disease Progress Nt ---
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 coli UTI (10/2022), recent admission 04/20- 04/23/23 for groin cellulitis (BCx + E. faecalis and GPR, treated with Keflex -> 2 days of ampicillin -> Augmentin), who presents to [facility] ED on 05/23/23 with groin/scrotal edema, erythema, and tenderness c/w SSTI. Also with suprapubic tenderness c/f possible UTI though UCx with mixed organisms. Hemodynamically stable and responding to antibiotics, with clinical picture c/w SSTI rather than NSTI. Imaging without abscess or gas, though a complex L hydrocele was seen on scrotal US. Pt with pyuria though difficult to get a true clean catch urine due to his incontinence and urinary anatomy. He is having some suprapubic tenderness and dysuria (though this includes pain in the surrounding skin) and thus consider the possibility of UTI. UCx with mixed organisms though again difficult to get a clean sample. Urology holding off on Lynch at this time. BCx NGTD however these were drawn after abx (BCx obtained after receiving vancomycin + ceftriaxone). No positive cultures from current admission though with +MRSA nares this admission. Regarding prior cx data, note history of ESBL E. coli from UCx earlier this year (08/2022 and 10/2022). 04/20/23 BCx from recent admission +E. faecalis. Given clinical improvement (while on meropenem, though also may have had some clinical response while on cefepime), can transition to PO. Would favor empiric PO Bactrim + Augmentin which would cover his prior ESBL E. coli as well as polymicrobial SSTI organisms. Appreciate urology involvement. Continuing to discuss long-term plan for urinary incontinence including potential additional diagnostics such as urodynamic studies and/or cystoscopy (coordinating with Sury). Patient with urinary incontinence since his penectomy, which is contributing to skin breakdown and recurrent SSTIs. Would continue wound care including strategies to keep the groin dry and reduce skin breakdown in the setting of ongoing urinary inconti nence. 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 - Ensure antibiotics are renally dosed (may need to reduce dose if CrCl <30) - Ensure follow-up with urology. Continuing to discuss long-term plan including potential additional urological surgery (coordinating with Sury) - Continue wound care including strategies to keep the groin dry and reduce skin breakdown in the setting of ongoing urinary incontinence - Ensure close follow-up with PCP - F/u BCx and UCx until finalized Plan discussed with hospitalist. Thank you for letting ID participate in the care of this patient. ID will sign off at this time. If questions, please contact the [facility] call center at [phone]. Monika Roca MD, MHS Infectious Diseases [facility] direct line: [phone] Admission and Anticipated Discharge Date Admission Date: May 23, 2023 Subjective Subsequent visit was provided via telemedicine using two-way real-time interactive telecommunication between the patient and the telemedicine provider. For the duration of the visit, the provider was performing the assessment from a different facility than the patient. This includesuse of bluetooth stethoscope forauscultationperformed by the telepresenter that the telemedicine provider can hear if described in the physical exam. Provider Enrollment Specialist contact information: Please call [facility] Call Center . (Phone Number For Physician Use Only) After establishing a telemedicine visit, patient was: Patient was verified with two unique identifiers, Patient/authorized rep acknowledged consent and understanding and Gave permission to continue telehealth session Time Spent with Patient: Subsequent => 35 min - Afebrile - Says he feels much better today. Still having some pain in the groin skin but says the swelling and pain is improved from yesterday. Physical Exam Physical Exam: Exam obtained with aid of in-person telepresenter. General: Well-appearing, no acute distress HEENT: Conjunctivae non-injected, sclerae anicteric, MMM, OP clear. Resp: Respirations nonlabored. Abd: Soft, nontender, nondistended. Normal bowel sounds throughout. No masses or organomegaly. : No suprapubic tenderness today. s/p penile resection with surrounding skin breakdown. Purewick in place. Scrotum and penis with some improvement in erythema, edema, and tenderness. Erythema has improved from previously drawn borders. Ext: Warm and well-perfused Skin: As above. Neuro: Alert & interactive. Grossly non-focal. Psych: Pleasant, appropriate. Results & Data Vital Signs (Past 12 Hours) Vital Signs Temp Pulse Pulse Resp BP BP Pulse Ox 05/25/23 08:00 05/25/23 07:58 36.6 C 86 15 120/69 97 05/25/23 07:00 86 05/25/23 03:18 36.4 C L 99 H 18 110/72 97 05/25/23 00:00 94 H 05/24/23 23:12 36.6 C 95 H 18 124/79 97 O2 Del Method 05/25/23 08:00 Room Air 05/25/23 07:58 Room Air 05/25/23 07:00 05/25/23 03:18 Room Air 05/25/23 00:00 05/24/23 23:12 Room Air Diagnostic Findings Diagnostics: 05/23 CT pelvis: 1. Mildly enlarged bilateral groin lymph nodes. 2. Moderate scrotal edema with bilateral hydroceles. 3. No evidence of abscess. 05/23 US Scrotum: 1. Heterogeneous testes with no acute testicular abnormality identified. 2. There is marked scrotal wall thickening and edema. Correlate clinically for evidence of cellulitis. 3. Small and minimally complex left-sided hydrocele. Trace hydrocele is noted on the right. 05/06 CT A/P 1. No bowel obstruction or bowel wall thickening. Normal appendix. 2. Moderate fecal retention. 3. Partially imaged edema again noted along the dorsal aspect of the penis. Correlate with clinical exam findings. 4. Punctate bilateral renal calcifications are again noted which may be vascular or represent nonobstructing calculi. No ureteral calculi or hydronephrosis. 5. Prostamegaly with evidence of chronic outlet obstruction. Correlate with urinalysis order to exclude cystitis. 6. Additional findings as above. Micro Summary: 05/24 UCX: <1k colonies 05/23 MRSA nares positive 05/23 BCx x2: NGTD 05/23 UCx: mixed organisms 05/23 UA: >30 WBCs, 5-10 RBcs, 5-10 epithelial cells; neg nitrite 3+ LE. Prior 04/23/23 BC x2: NG 04/20/23 BCx: E. faecalis (S-amp), GPRs (nonviable) 04/20 UCx: mixed organisms 01/06/23 UCx: 80k Corynebacterium not urealyticum 10/08/22 UCx: ESBL E. coli (S-erta/nel, S-Bactrim. R-levo/cipro) 08/10/22 UCx: ESBL E. coli (S-erta/nel, S-Bactrim. R-levo/cipro) Antibiotic Summary: Bactrim (05/25-present) Augmentin (05/25-present) Prior meropenem (05/24-05/25) ceftriaxone (05/23) vancomycin (05/23) cefepime (05/24) (1) Cellulitis Site of cellulitis: unspecified site Qualified Code(s): L03.90 - Cellulitis, unspecified (2) UTI (urinary tract infection) Hematuria presence: with hematuria Urinary tract infection type: site unspecified Qualified Code(s): N39.0 - Urinary tract infection, site not specified; R31.9 - Hematuria, unspecified
[2023-05-25] MEDS: SULFAMETHOXAZOLE/TRIMETHOPRIM DS 800/160MG TAB PO SCH (16:34)
[2023-05-25] MEDS: AMOXICILLIN/CLAVULANATE 875 MG TAB PO SCH (16:34)
[2023-05-25] MEDS: ACETAMINOPHEN 500 MG TAB PO PRN (21:59)
[2023-05-26] MEDS: LEVOTHYROXINE SODIUM 25 MCG TABLET PO SCH (05:54)
--- NOTE | 2023-05-26 07:33 | Urology Progress Note ---
Date of Service May 26, 2023 Assessment & Plan (1) Cellulitis: (2) Groin rash: Plan: Follow-up UTI, scrotal cellulitis; hx of squamous cell carcinoma s/p partial penectomy Pt afebrile, tachycardia noted today Labs- creatinine 2.24, no leukocytosis Continue with antibiotics for cellulitis ID consulted - now on PO Augmentin and Bactrim Continue with topical antifungal Continue wound care management/barrier options per wound nurse Recommend f/u with Sury to discuss options for ongoing management Can consider further evaluation with cystoscopy and urodynamics as outpatient Continue antibiotics, wound management, and supportive care will follow peripherally Admission and Anticipated Discharge Date Admission Date: May 25, 2023 Subjective Patient subjectively feeling much better this am Denies any significant discomfort or bother Physical Exam Constitutional: well developed and well nourished; no acute distress Respiratory: normal respiratory effort; no respiratory distress and no labored breathing Gastrointestinal (Abdomen): Inspection/Auscultation: abdomen normal to inspection; abdomen not distended Musculoskeletal: Head/Neck/Chest: normocephalic Neurologic: moves all extremities and awake Psychiatric: Orientation: alert and oriented x 3 Genitourinary: Prior penile resection. Moderate scrotal edema and erythema. Cellulitis noted to the scrotum and bilateral inguinal folds. Erythema within the markings. Results & Data Vital Signs (Past 12 Hours) Vital Signs Temp Pulse Pulse Resp BP Pulse Ox O2 Del Method 05/26/23 07:00 107 H 05/26/23 04:00 36.5 C 100 H 18 110/70 95 Room Air 05/26/23 01:52 Room Air 05/25/23 23:32 36.5 C 98 H 18 100/68 98 Room Air 05/25/23 22:09 94 H 05/25/23 19:36 36.6 C 105 H 112/70 96 Room Air PG Care Time/CCT Total # of Minutes Spent Total Time Spent with Patient: Total time spent is greater than 50% in coordination of care (as documented) at patient's floor/unit and/or counseling patient: Coding Level of Care Code 53958 SUB INP/OBS CARE 25MIN Diagnoses Cellulitis L03.90 Site of cellulitis: unspecified site Groin rash R21 (1) Cellulitis Site of cellulitis: unspecified site Qualified Code(s): L03.90 - Cellulitis, unspecified
[2023-05-26 07:34] LABS: Hematocrit (blood only) 30.8 % (42.0-52.0); Hemoglobin 9.9 g/dl (14.0-18.0); Mean Corpuscular Hemoglobin 31.6 pg (25.0-34.0); Mean Corpuscular Hgb Conc 32.1 g/dL (32.0-36.0); Mean Corpuscular Volume 98.4 fL (80.0-100.0); Mean Platelet Volume 10.4 fL (9.4-12.4); Platelet Count 246 K/uL (130-400); RDW Coefficient of Variation 15.3 % (11.5-14.5); RDW Standard Deviation 55.2 fL (36.4-46.3); Red Blood Count 3.13 M/uL (4.70-6.10); White Blood Count 5.43 K/ul (4.8-10.8)
[2023-05-26 07:56] LABS: BUN Creatinine Ratio 11.2 (10-20); Calcium 7.6 mg/dl (8.6-10.3); Creatinine Clr Calc Pharmacy 27.1 ml/min; Est GFR (African American) 29.5 ml/min; Est GFR (Non-African American) 25.4 ml/min; Potassium 4.4 mmol/L (3.5-5.1)
[2023-05-26] MEDS ORDERED: AMOXICILLIN/CLAVULANATE 500 MG TAB PO SCH (09:30)
[2023-05-26] MEDS ORDERED: SULFAMETHOXAZOLE/TRIMETHOPRIM DS 800/160MG TAB PO SCH (09:30)
[2023-05-26] MEDS: APIXABAN 2.5 MG TAB PO SCH (09:52)
[2023-05-26] MEDS: METOPROLOL TARTRATE 25 MG TAB PO SCH (09:52)
[2023-05-26] MEDS: SODIUM BICARBONATE 650 MG TAB PO SCH (09:52)
[2023-05-26] MEDS: CLOPIDOGREL BISULFATE 75 MG TAB PO SCH (09:53)
[2023-05-26] MEDS: GABAPENTIN 100 MG CAP PO SCH (09:53)
[2023-05-26] MEDS: MAGNESIUM OXIDE 400 MG TAB PO SCH (09:53)
[2023-05-26] MEDS: ADVANCED PROBIOTIC 1250 MG CAPSULE PO SCH (09:53)
[2023-05-26] MEDS: OXYBUTYNIN CHLORIDE XL 5 MG TABCR PO SCH (09:53)
[2023-05-26] MEDS: MULTIVITAMIN TAB PO SCH (09:53)
[2023-05-26] MEDS: TAMSULOSIN HCL 0.4 MG CAP PO SCH (09:53)
[2023-05-26] MEDS: CALCIUM 600MG + VIT D 400 IU TAB PO SCH (09:53)
[2023-05-26] MEDS: PANTOprazole 40 MG TAB PO SCH (09:53)
[2023-05-26] MEDS: VITAMIN B COMPLEX TAB PO SCH (09:54)
[2023-05-26] MEDS: CALCITRIOL 0.25 MCG CAPSULE PO SCH (09:54)
[2023-05-26] MEDS: MICONAZOLE NITRATE POWDER 85 GM EXT SCH (09:57)
[2023-05-26] MEDS: SULFAMETHOXAZOLE/TRIMETHOPRIM DS 800/160MG TAB PO SCH (10:16)
[2023-05-26] MEDS: AMOXICILLIN/CLAVULANATE 875 MG TAB PO SCH (10:16)
--- NOTE | 2023-05-26 15:02 | Discharge Summary ---
Discharge Summary Date of Service May 26, 2023 Notes For Next Care Provider -CBC and CMP ordered for completion 05/28 - Results to forward to PCP and Nephrology -Patient and declined rehab or home health, but agreeable to outpatient PT -Will need follow up with urology is Sury, has appointment scheduled in June but would try to get this moved up to try to limit infection Medication Changes From Visit -Augmentin and Bactrim BID until 05/29. Admission HPI Per Admitting Provider Cl Watson is an 88-year-old male s/p penectomy for squamous cell carcinoma who presents to the ER with lower abdominal cellulitis. He was recently admitted for the same from April 22 - 2022 with bacteremia in 1/2 blood cultures growing Enterococcus faecalis treated with ampicillin and discharged with Augmentin. He was readmitted with hypotension from April 27 - 2022 due to hypotension which resolved with IV fluids and he was suspect just to be mildly dehydrated. He presents today with increased pain and erythema in his groin although he finds it difficult to give me a good timeline he thinks this has been much worse over the last 4-5 days. No fever or chills. He reports only burning on his skin rather than dysuria. No suprapubic pain. Principal Dx & Hospital Course #1 = Principal Diagnosis (1) Cellulitis: - Presented to ER w/ pain/redness/welling of the groin with increased pain/swelling in setting of hx squamous cell carcinoma s/p penectomy at [facility] [place] earlier this year * Of note, recent hx w/ admission 04/20 for sepsis/bacteremia 2nd to cellulitis of groin w/ + blood cultures at that time for enterococcus faecalis and placed on IV Ampicillin and discharged 04/23 on Augmentin to cover for possible bacteremia/contaminated vial/cellulitis * Then sent from Cardiology office 04/27 to ER for mild symptomatic hypotension concerning for sepsis vs dehydration and dc 04/28 - Scrotal US: moderated-marked scrotal thickening/edema c/w cellulitis. - CT pelvis: NO evidence for abscess but noting mildly enlarged lymph nodes, moderate scrotal edema w/ b/l hydroceles. - Blood Culture: NG48hr but taken AFTER inital abx - Antibiotic course: -Ceftriaxone/Vancomycin in ER and continued on IV Ceftriaxone on admission -05/24 worsening and given hx diabetes/pre-DM (A1c 5.7) switched to Cefepime (got 1 dose) to include pseudomonal coverage -ID consulted, switched to Meropenem evening (05/24) and significant improvement on exam -Transitioned to Augmentin and Bactrim for discharge for total of 7 days, last day 05/29/2023 - Had to be renally dosed CrCl 27 - recheck CMP/CBC on 05/26 -Urology consulted -Likely needs scope/uro dynamics to evaluate, as usually men 100% continent after penectomy. Sphincter far away from resection so either has to have cystopathy or sphincter failure to explain leakage. - Possible length of waiting til treatment and causing obstruction w/ penile cancer and caused severe stricture of meatus, likely damaged the bladder and sphincter. Hopefully temporarily but could be permanent - assisted to reach out to [facility] [place] Urology, appt 06/18 but asked to move up if possible. - Wound RN consulted -Purewick removed, additional dressing for males brought (sample) to try and effective can continue. - Apply antifungal powder and cover with barrier cream -PT/OT - recommending rehab stay. Patient and are not agreeable, prefer to go home and continue the current routine. States that while mainly remains in the chair has a walker and hover round at home. Will continue outpatient therapy services. (2) Asymptomatic bacteriuria: Possible urinary tract infection As above, likely not able to obtain clean catch, BCx NGTD (noting above). Urine cx all high counts/3 types organisms. Repeat urine cx no growth - but this was collected after antibiotics. Abx switched to Augmentin/Bactrim as above (3) Atrial fibrillation: hx of such. rate controlled continues on metoprolol BID, eliquis 2.5mg BID (dosed appropriately) Mag replaced during stay (4) CKD (chronic kidney disease): CKD, stage 4 /CKD, stage 3 Cr 2.17 on admission w/ variable baseline per nephrology notes IVF x 3 bags on admission, continues on Bicarb PO BID (normal on AM labs) bactrim/augmentin renally dosed for discharge, CrCl 27 Repeat CMP 05/28 (5) Diabetes mellitus, type 2: A1c 6.5 in August, not on any meds. Diet changed to DM diet -Repeat A1c5.7 and has been stable on BSG checks (6) Anemia: Hemoglobin low at 9.9, normal MCV, likely anemia of chronic disease Follow-up with PCP and nephrology Plan discharged home with . PT/OT recommended rehab stay, but patient and were not agreeable. Offered home health services and they declined these. Patient will continue outpatient physical therapy patient and aware that they can contact PCP at any time if need to arrange home health. Discharge Exam General: Appears well, patient states best he's felt in year. NAD, VS as above Resp: normal respiratory effort, lungs clear to auscultation CV: irreguarly irregular, Abd: normal bowel sounds, non tender, no hepatosplenomegaly : erythema improved from picture in chart, plaque/ skin over top of penile stump. Mild scrotal edema, but patient states near baseline Extremities: Moves all extremities, no edema. Able to stand from chair without assistance Neuro: A&O x3, Updated Medication List Medication Instructions Recorded Confirmed Type calcium carbonate 500 mg-vitamin 1 tab PO QAM 12/18/19 05/23/23 History D3 5 mcg (200 unit) tablet (Calcium 500 + D) vitamin B complex 1 tab PO QAM 12/18/19 05/23/23 History Lactobacillus acidophilus 10 10,000 mmu cells PO QDD 01/18/21 05/23/23 History billion cell capsule (Probiotic) gabapentin 100 mg capsule 100 mg PO BID #180 caps 06/19/22 05/23/23 Rx tamsulosin 0.4 mg capsule 0.4 mg PO DAILY #90 caps 06/19/22 05/23/23 Rx multivitamin 1 tab PO DAILY 08/01/22 05/23/23 History sodium bicarbonate 650 mg tablet 650 mg PO BID Stomach upset #180 08/10/22 05/23/23 Rx tabs calcitriol 0.25 mcg capsule 0.25 mcg PO DAILY #90 caps 10/06/22 05/23/23 Rx levothyroxine 25 mcg tablet 25 mcg PO DAILYBB 90 days #90 tabs 10/12/22 05/23/23 Rx (Synthroid) magnesium oxide 400 mg (241.3 mg 400 mg PO BID #180 tabs 11/23/22 05/23/23 Rx magnesium) tablet omeprazole 40 mg capsule,delayed 40 mg PO BID 90 days #180 caps 11/23/22 05/23/23 Rx release acetaminophen 500 mg tablet 1,000 mg PO Q8H PRN Pain 12/22/22 05/23/23 History (Tylenol Extra Strength) metoprolol tartrate 25 mg tablet 25 mg PO BID #180 tabs 01/25/23 05/23/23 Rx tramadol 50 mg tablet 25 mg (1/2 x 50 mg) PO Q8H PRN 03/04/23 05/23/23 Rx pain #15 tabs oxybutynin chloride 5 mg 5 mg PO DAILY urinary discomfort 03/22/23 05/23/23 History tablet,extended release 24 hr loperamide 2 mg capsule 2 mg PO Q6H PRN loose stool #60 03/29/23 05/23/23 Rx caps menthol 0.44 %-zinc oxide 20.6 % 1 applic topical QID PRN skin 03/29/23 05/23/23 Rx topical ointment (Calmoseptine) irritation on groin #113 grams apixaban 2.5 mg tablet (Eliquis) 2.5 mg PO BID #180 tabs 04/15/23 05/23/23 Rx clopidogrel 75 mg tablet (Plavix) 75 mg PO DAILY #90 tabs 04/15/23 05/23/23 Rx ferrous sulfate 325 mg (65 mg 325 mg PO DAILY 04/27/23 05/23/23 History iron) tablet,delayed release lidocaine 5 % topical patch 1 patch topical DAILY PRN Pain 05/23/23 05/23/23 History (DermacinRx Lidocan) amoxicillin 500 mg-potassium 1 tab PO BIDM 4 days #7 tabs 05/26/23 Rx clavulanate 125 mg tablet miconazole nitrate 2 % topical 1 applic EXT BID #30 grams 05/26/23 Rx powder (Desenex) sulfamethoxazole 800 1 tab PO BID #7 tabs 05/26/23 Rx mg-trimethoprim 160 mg tablet (Bactrim DS) Hospital Stay Data Consultations 05/23/23 18:02 ED Decision to Admit Stat 05/23/23 19:16 Consult Urology Routine 05/24/23 12:34 Consult Infectious Diseases Routine Diagnostic Imagining Performed 05/23/23 16:06 US scrotum/testicle Stat 05/23/23 19:48 CT pelvis w/IV con only Stat Pending Results Patient Have Any Pending Studies at Discharge: Yes (blood cultures ) Discharge Instructions Given to Patient (Per Discharging Provider) Mr. Watson You were hospitalized after infection in your groin area, called cellulitis. This was likely due to your incontinence and general moisture to the area. During your stay we performed imaging that did not show any masses in the testis, but did show enlarged groin lymph nodes that are likely due to the infection and scrotal edema-which has resolved. We are treating the infection with two antibiotics - Augmentin and Bactrim. You will take these until 05/29. First dose at home is tonight. Your urine culture was negative. Your blood cultures were negative at 48 hours, but take 5 days to get the final result. Please follow up with your PCP for the final results. You will need to discuss terminal operator management with your urologist in [place]. You have an appointment scheduled 06/18/2023, but I would call them and see if they are able to move that sooner for you. It is important that you keep the area clean and dry while at home. Follow the recommendations from the wound care nurse. Do not pick at any dry skin or material build up on the area. You will need to get repeat labs done on Wednesday. These will be sent to your PCP and your pneumatic hoist operator for follow up. It was recommended by physical therapy and occupation for you to go to outpatient rehabiliation to get stronger, but you and your and have declined this. You have also declined to have home health come into your home. If you change your mind please contact your PCP. You are at high risk at falls and should have constant supervision. Use your walker in the house. You are also borderline diabetic and follow up with your PCP for this. Having diabetes can impair wound healing. Continue to watch your carbohydrate intake. It was our pleasure taking care of you, Erin Kiran PA-C Total Time Total Time Spent Total Time Spent (In Minutes): 45 Supervising Physician Co-Signing Physician Notes PA Supervision Note: I personally saw and examined the patient. I verified all medina points and agree with LOLLY Kirna with the following exceptions and/or additions: S-patient reports feeling much better and less pain in the groin region O- Vitals reviewed Gen: Alert and awake and oriented to person and place, NAD HEENT: Anicteric sclerae, EOMI CV: Irregularly irregular, normal rate no mgr nl S1S2 Pulm: CTAB no wcr Abd: +BS soft NT ND Skin: Bilateral inguinal region and scrotum with erythema, warmth, dry skin, no drainage CBC and BMP reviewed A/P-52-[id number]-old male here with scrotal and groin cellulitis due to chronic urinary incontinence from penectomy. Improving on antibiotics, renal function at baseline. Appreciate infectious disease consultation Stable for discharge home with home health and rehab declined by patient and his . Check labs in 2 days to ensure renal function stable and potassium levels are normal given that he is on Bactrim with a history of CKD stage IV Coding Level of Care Code 29933 INP/OBS DISCH >30 MIN Diagnoses Cellulitis L03.90 Site of cellulitis: unspecified site Asymptomatic bacteriuria R82.71 Atrial fibrillation I48.91 Chronic kidney disease, unspecified CKD stage N18.9 Chronic kidney disease stage: unspecified stage Diabetes mellitus, type 2 E11.9 Anemia D64.9 Anemia type: unspecified type
== END 2023-05-26 16:31 | disposition home or self-care (01) | DRG 603 ==
LOC: ED 15:41 → 2N 15:41 → SUATTDRO 18:55 → 2N 20:36 → SUATTDRO 05-25 18:13

== ENCOUNTER 2023-08-13 18:45 | Inpatient (IN) ==
--- NOTE | 2023-08-13 19:30 | Emergency Department Note ---
Impression & Plan Fever ADMIT ED Provider Note HPI: History obtained from patient and at bedside The patient is a 88-year-old gentleman with history of squamous cell carcinoma of the penis, who presents the emergency department with a chief complaint of a fall. Patient's states that he slid off the side of the bed. She does note that he was just discharged from [facility] yesterday after suprapubic catheter placement and he also had a cystoscopy done at that time. Patient's states that he was attempting to get off the side of the bed when he slipped and fell. Patient denies any pain. He does maintain flexion at the hips bilaterally. On arrival here to the ED the patient is mildly tachycardic but also noted to be febrile at 38.4, he is saturating well on room air and otherwise appears to be in no acute distress on my initial assessment. ROS: - Per HPI Differential Diagnosis: Urinary tract infection/sepsis, viral upper respiratory infection to include COVID-19 infection, influenza A, hip fracture/pelvic fracture, amongst other potential pathologies. *Outpatient medications and allergy history reviewed. PE: General: Alert, no acute distress HEENT: Normocephalic, trachea midline Eyes: Extraocular eye movement is intact, no scleral erythema Pulmonary: Clear to auscultation bilaterally, no wheezing Cardio: Tachycardic rate with irregular rhythm GI: Abdomen is soft to palpation : No suprapubic tenderness, there is no surrounding erythema to the suprapubic catheter site, there is yellow clear urine draining into the catheter bag, there is some erythema and crusting of the suprapubic fat pad, penis is embedded within the suprapubic fat pad MSK: No evidence of trauma or malformation of the extremities, no edema, patient maintains flexion at the hips bilaterally Skin: No evidence of rash Neuro: Alert, no focal deficits Psychiatric: Cooperative INDEPENDENT INTERPRETATIONS: monitoring coordinator: (As interpreted by myself): - An order was placed for continuous cardiac monitoring - Patient was noted to be in atrial fibrillation with a rate of 121 EKG: (As interpreted by myself): Rate: 121 Rhythm: Atrial fibrillation with RVR Intervals: Within normal limits ST changes: No ST elevation Time: 1901 Chest x-ray: (As interpreted by myself): -No focal infiltrate Interventions provided in ED: -IV fluid bolus, IV ceftriaxone Medical Decision Making: IV was established and lab work obtained, patient was placed on monitoring and evaluation advisor. Given presenting fever, blood cultures were drawn. Lab work does not show any leukocytosis, hemoglobin is stable at 11.4, platelet count is normal. CMP does not show any critical findings, creatinine is at baseline at 2.13, procalcitonin is elevated at 1.34, high-sensitivity troponin is mildly elevated at 25. Patient denies any chest pain. Chest x-ray per my interpretation does not show any evidence of acute disease. Patient's abdomen is soft and nontender on my exam, he does maintain flexion at the hips bilaterally, low suspicion for fracture. Urinalysis obtained from the patient suprapubic catheter shows nitrite negative and 1+ leukocyte Estrace findings with pyuria and low epithelial cell count. Suspect possible UTI as the source of the patient's fever. Viral panel testing was obtained and is negative. On my reassessment the patient is sleeping comfortably in bed, his tachycardia has down trended into the low 100s, given his presenting fever with possible UTI do feel it would be appropriate to admit the patient to the hospital for IV antibiotics. Patient was given IV ceftriaxone here in the ED. I discussed this with the patient he is in agreement, case was discussed with [facility] Murillo. Patient was placed for admission in stable condition. Consultants/Discussions held with other healthcare providers: -[facility], Dr. Murillo / Dr. Dye Disposition discussion held by myself with: -Patient Diagnosis: 1. Fever, acute 2. Urinary tract infection, acute 3. Generalized weakness, acute 4. Ambulatory dysfunction 5. Elevated procalcitonin Disposition: Admission Jadiel Smyth DO Emergency Medicine Past Med/Surg History Medical History (Updated 08/14/23 @ 00:15 by Jadiel Smyth DO) SCC (squamous cell carcinoma), penis Atrial fibrillation no cardioversions/ no pacer. treated with medication and follows with PCP GERD (gastroesophageal reflux disease) Stage 3b chronic kidney disease Acute UTI Pain in penis Lumbosacral facet joint syndrome Discogenic lumbar pain Acute metabolic encephalopathy UTI (urinary tract infection) Rib pain on left side Syncopal episodes COVID-19 Penile cancer KENROY (acute kidney injury) Unresponsiveness Anemia of chronic disease Diarrhea SCC (squamous cell carcinoma), penis Chronic pruritus Hypothyroidism Chronic renal insufficiency, stage IV (severe) Secondary hyperparathyroidism of renal origin Orthostatic hypotension Vitamin D deficiency SBO (small bowel obstruction) Small bowel obstruction due to adhesions Rectal bleed BRBPR (bright red blood per rectum) Dementia Hyperkalemia Acute cholecystitis Substernal chest pain resolved per pt Dysphagia "trouble keeping foods down" Fall walker and cane -- fall risk. Colitis Concussion Degenerative disc disease Osteoarthritis History of bleeding ulcers Diabetes mellitus, type 2 diet controlled Hx of migraines Hx of sleep apnea no device Balanoposthitis Phimosis DDD (degenerative disc disease), lumbar Atrial fibrillation (04/22/12) Peptic ulcer disease BPH w urinary obs/LUTS Anal fistula Fall LAST FALL 1 WEEK AGO Hypoglycemia Bradycardia Surgical History S/P laparoscopic cholecystectomy (09/17/20) Laparoscopic Cholecystectomy with Cholangiogram with akira drain 09/17/20 Dr. Atkinson Hx of circumcision 2 yrs ago H/O knee surgery "MULTIPLE KNEE SURGERIES"- R/L History of total shoulder replacement LEFT History of total knee replacement RT/LEFT History of esophagogastroduodenoscopy (EGD) History of colonoscopy History of tooth extraction Hx of transurethral resection of prostate H/O gastric bypass 2004 Family History Sister Family history of diabetes mellitus Social History (Updated 07/22/23 @ 13:07 by Alix Soria LPN) Smoking Status: Never smoker Tobacco Type: Cigarettes Second Hand Exposure: No; Do You Dip or Chew Tobacco: No; Hx Alcohol Use: No Hx Substance Use: No Preferred Language: Danish Communication Ability: Effective Communication Ability Comment: can be forgetful Chief Security Officer Required: No Beliefs That Will Affect Care: Oriental Orthodox marital status: Current Living Situation: Spouse Current Living Situation Comment: At home with current occupational status: retired Feels Safe at Home: Yes Diet: regular caffeine: No Dental Care, Regularly: Yes Seatbelt Use: always Assistive Devices: Scooter/Electric Scooter and Walker Allergies Allergies Allergy/AdvReac Type Severity Reaction Status Date / Time iron [From Venofer] AdvReac Mild warm Verified 07/30/23 14:39 sensation/flushing, discomfort in arm in which it was i Home Meds Home Medications Medication Instructions Recorded Confirmed calcium carbonate 500 mg-vitamin 1 tab PO QAM 12/18/19 08/13/23 D3 5 mcg (200 unit) tablet (Calcium 500 + D) vitamin B complex 1 tab PO QAM 12/18/19 08/13/23 Lactobacillus acidophilus 10 10,000 mmu cells PO QDD 01/18/21 08/13/23 billion cell capsule (Probiotic) multivitamin 1 tab PO DAILY 08/01/22 08/13/23 acetaminophen 500 mg tablet 1,000 mg PO Q8H PRN Pain 12/22/22 08/13/23 (Tylenol Extra Strength) ferrous sulfate 325 mg (65 mg 325 mg PO DAILY 04/27/23 08/13/23 iron) tablet,delayed release metoprolol tartrate 50 mg tablet 50 mg PO BID 08/13/23 08/13/23 miconazole nitrate 2 % topical 1 applic EXT BID PRN as directed 08/13/23 08/13/23 powder (Desenex) Previous Rx's Medication Instructions Recorded sodium bicarbonate 650 mg tablet 650 mg PO BID Stomach upset #180 08/10/22 tabs calcitriol 0.25 mcg capsule 0.25 mcg PO DAILY #90 caps 10/06/22 magnesium oxide 400 mg (241.3 mg 400 mg PO BID #180 tabs 11/23/22 magnesium) tablet apixaban 2.5 mg tablet (Eliquis) 2.5 mg PO BID #180 tabs 04/15/23 clopidogrel 75 mg tablet (Plavix) 75 mg PO DAILY #90 tabs 04/15/23 levothyroxine 25 mcg tablet 25 mcg PO DAILYBB 90 days #90 tabs 05/27/23 (Synthroid) tamsulosin 0.4 mg capsule 0.4 mg PO DAILY #90 caps 06/14/23 omeprazole 40 mg capsule,delayed 40 mg PO BID 90 days #180 caps 06/23/23 release gabapentin 100 mg capsule 100 mg PO BID #180 caps 08/05/23 Results & Data (ED) Vital Signs Vital Signs - 24 hr 08/13/23 19:09 08/13/23 19:10 08/13/23 19:24 Temperature 38.4 C H Temperature Source Oral Pulse Rate 118 H 104 H 112 H Pulse Rate from SpO2 Sensor Respiratory Rate 20 22 Respiratory Effort / Characteristics Non-Labored Respiratory Depth Normal Respiratory Pattern Regular Blood Pressure 125/86 100/70 Blood Pressure Mean 99 80 Pulse Oximetry 92 93 Oxygen Delivery Method Room Air Room Air Sepsis Recent Fever Within 48 Hours Yes Sepsis New/Unexplained Change in Mental Status No Sepsis Action Taken by Nursing Physician Notified 08/13/23 19:28 08/13/23 19:30 08/13/23 19:45 Temperature Temperature Source Pulse Rate 101 H 106 H 104 H Pulse Rate from SpO2 Sensor Respiratory Rate 17 24 23 Respiratory Effort / Characteristics Respiratory Depth Respiratory Pattern Blood Pressure 104/74 109/64 Blood Pressure Mean 84 79 Pulse Oximetry 94 94 94 Oxygen Delivery Method Room Air Room Air Room Air Sepsis Recent Fever Within 48 Hours Sepsis New/Unexplained Change in Mental Status Sepsis Action Taken by Nursing 08/13/23 20:00 08/13/23 20:01 08/13/23 20:15 Temperature Temperature Source Pulse Rate 105 H 105 H Pulse Rate from SpO2 Sensor 100 H Respiratory Rate 24 20 16 Respiratory Effort / Characteristics Respiratory Depth Respiratory Pattern Blood Pressure 106/68 126/73 Blood Pressure Mean 80 90 Pulse Oximetry 93 97 94 Oxygen Delivery Method Room Air Room Air Room Air Sepsis Recent Fever Within 48 Hours Sepsis New/Unexplained Change in Mental Status Sepsis Action Taken by Nursing 08/13/23 20:30 08/13/23 20:45 08/13/23 20:59 Temperature Temperature Source Pulse Rate 102 H 106 H 115 H Pulse Rate from SpO2 Sensor Respiratory Rate 18 17 24 Respiratory Effort / Characteristics Respiratory Depth Respiratory Pattern Blood Pressure 108/82 120/77 120/78 Blood Pressure Mean 90 91 92 Pulse Oximetry 92 95 97 Oxygen Delivery Method Room Air Room Air Room Air Sepsis Recent Fever Within 48 Hours Sepsis New/Unexplained Change in Mental Status Sepsis Action Taken by Nursing 08/13/23 21:15 08/13/23 21:30 08/13/23 21:45 Temperature Temperature Source Pulse Rate 102 H 111 H 111 H Pulse Rate from SpO2 Sensor Respiratory Rate 21 13 17 Respiratory Effort / Characteristics Respiratory Depth Respiratory Pattern Blood Pressure 123/83 108/71 113/68 Blood Pressure Mean 96 83 83 Pulse Oximetry 97 94 95 Oxygen Delivery Method Room Air Room Air Room Air Sepsis Recent Fever Within 48 Hours Sepsis New/Unexplained Change in Mental Status Sepsis Action Taken by Nursing 08/13/23 22:00 08/13/23 22:15 Temperature Temperature Source Pulse Rate 101 H 114 H Pulse Rate from SpO2 Sensor Respiratory Rate 13 20 Respiratory Effort / Characteristics Respiratory Depth Respiratory Pattern Blood Pressure 112/67 120/84 Blood Pressure Mean 82 96 Pulse Oximetry 96 Oxygen Delivery Method Room Air Sepsis Recent Fever Within 48 Hours Sepsis New/Unexplained Change in Mental Status Sepsis Action Taken by Nursing Laboratory Data 08/13/23 19:12 08/13/23 19:12 Lab Results 08/13/23 08/13/23 08/13/23 Range/Units 19:12 19:45 20:28 WBC 9.03 (4.8-10.8) K/ul RBC 3.71 L (4.70-6.10) M/uL Hgb 11.4 L (14.0-18.0) g/dl Hct 36.7 L (42.0-52.0) % MCV 98.9 (80.0-100.0) fL MCH 30.7 (25.0-34.0) pg MCHC 31.1 L (32.0-36.0) g/dL RDW Std Deviation 49.9 H (36.4-46.3) fL RDW Coeff of Yinka 13.7 (11.5-14.5) % Plt Count 173 (130-400) K/uL MPV 10.6 (9.4-12.4) fL Immature Gran % (Auto) 0.4 % Neut % (Auto) 92.6 % Lymph % (Auto) 3.1 % Merrick % (Auto) 3.8 % Eos % (Auto) 0.0 % Baso % (Auto) 0.1 % Neut # (Auto) 8.36 H (1.40-6.50) K/uL Lymph # (Auto) 0.28 L (1.20-3.40) K/uL Merrick # (Auto) 0.34 (0.11-0.59) K/uL Eos # (Auto) 0.00 (0.00-0.50) K/uL Baso # (Auto) 0.01 (0.00-0.20) K/uL Immature Gran # (Auto) 0.04 (0.01-0.20) K/uL Sodium 135 L (136-145) mmol/L Potassium 4.8 (3.5-5.1) mmol/L Chloride 107 (98-107) mmol/L Carbon Dioxide 17 L (21-32) mmol/L Anion Gap 11 (3-11) BUN 27 H (6-23) mg/dl Creatinine 2.13 H (0.6-1.4) mg/dl Est Cr Clr Drug Dosing 28.6 ml/min Est GFR ( Amer) 31.3 ml/min Est GFR (Non-Af Amer) 27.0 ml/min BUN/Creatinine Ratio 12.7 (10-20) Glucose 141 H (70-99(Fasting)) mg/dl Lactate 2.8 H* (0.4-2.0) mmol/L Calcium 8.6 (8.6-10.3) mg/dl Magnesium 1.6 L (1.7-2.4) mg/dl Total Bilirubin 0.3 (0.2-1.0) mg/dl Direct Bilirubin 0.1 (0-0.2) mg/dl AST 36 (13-39) U/L ALT 25 (7-52) U/L Alkaline Phosphatase 92 (34-104) U/L Troponin I High Sens 25.8 H (0-20) pg/ml Total Protein 7.1 (6.0-8.3) gm/dl Albumin 3.5 (3.4-5.0) gm/dl Procalcitonin 1.34 H (0-0.5) ng/ml Urine Color Urine Appearance (Clear) Urine pH (4.5-7.5) Ur Specific [place] (1.000-1.030) Urine Protein (Negative) Urine Glucose (UA) (Negative) Urine Ketones (Negative) Urine Blood (Negative) Urine Nitrite (Negative) Urine Bilirubin (Negative) Urine Urobilinogen (Negative) Ur Leukocyte Esterase (Negative) Urine RBC (0-4) /hpf Urine WBC (0-5) /hpf Ur Epithelial Cells (0-5) /lpf Urine Bacteria (Negative) Adenovirus (PCR) Not Detected (NotDetected) B. pertussis DNA (PCR) Not Detected (NotDetected) B.parapertussis DNA PCR Not Detected (NotDetected) C. pneumoniae DNA (PCR) Not Detected (NotDetected) Coronavirus OC43 (PCR) Not Detected (NotDetected) Coronavirus HKU1 (PCR) Not Detected (NotDetected) Coronavirus 229E (PCR) Not Detected (NotDetected) SARS-CoV-2 (PCR) Not Detected (NotDetected) Coronavirus NL63 (PCR) Not Detected (NotDetected) Human Metapneumovir PCR Not Detected (NotDetected) Influenza Type A (PCR) Not Detected (NotDetected) Influenza Type B (PCR) Not Detected (NotDetected) M. pneumoniae (PCR) Not Detected (NotDetected) Parainfluenza 1 (PCR) Not Detected (NotDetected) Parainfluenza 2 (PCR) Not Detected (NotDetected) Parainfluenza 3 (PCR) Not Detected (NotDetected) Parainfluenza 4 (PCR) Not Detected (NotDetected) RSV (PCR) Not Detected (NotDetected) Entero/Rhino (PCR) Not Detected (NotDetected) 08/13/23 08/13/23 Range/Units 20:37 21:21 WBC (4.8-10.8) K/ul RBC (4.70-6.10) M/uL Hgb (14.0-18.0) g/dl Hct (42.0-52.0) % MCV (80.0-100.0) fL MCH (25.0-34.0) pg MCHC (32.0-36.0) g/dL RDW Std Deviation (36.4-46.3) fL RDW Coeff of Yinka (11.5-14.5) % Plt Count (130-400) K/uL MPV (9.4-12.4) fL Immature Gran % (Auto) % Neut % (Auto) % Lymph % (Auto) % Merrick % (Auto) % Eos % (Auto) % Baso % (Auto) % Neut # (Auto) (1.40-6.50) K/uL Lymph # (Auto) (1.20-3.40) K/uL Merrick # (Auto) (0.11-0.59) K/uL Eos # (Auto) (0.00-0.50) K/uL Baso # (Auto) (0.00-0.20) K/uL Immature Gran # (Auto) (0.01-0.20) K/uL Sodium (136-145) mmol/L Potassium (3.5-5.1) mmol/L Chloride (98-107) mmol/L Carbon Dioxide (21-32) mmol/L Anion Gap (3-11) BUN (6-23) mg/dl Creatinine (0.6-1.4) mg/dl Est Cr Clr Drug Dosing ml/min Est GFR ( Amer) ml/min Est GFR (Non-Af Amer) ml/min BUN/Creatinine Ratio (10-20) Glucose (70-99(Fasting)) mg/dl Lactate 1.3 (0.4-2.0) mmol/L Calcium (8.6-10.3) mg/dl Magnesium (1.7-2.4) mg/dl Total Bilirubin (0.2-1.0) mg/dl Direct Bilirubin (0-0.2) mg/dl AST (13-39) U/L ALT (7-52) U/L Alkaline Phosphatase (34-104) U/L Troponin I High Sens 46.8 H D (0-20) pg/ml Total Protein (6.0-8.3) gm/dl Albumin (3.4-5.0) gm/dl Procalcitonin (0-0.5) ng/ml Urine Color Yellow Urine Appearance Cloudy A (Clear) Urine pH 5.5 (4.5-7.5) Ur Specific [place] 1.020 (1.000-1.030) Urine Protein 2+ H (Negative) Urine Glucose (UA) Negative (Negative) Urine Ketones Negative (Negative) Urine Blood 3+ H (Negative) Urine Nitrite Negative (Negative) Urine Bilirubin Negative (Negative) Urine Urobilinogen Negative (Negative) Ur Leukocyte Esterase 1+ H (Negative) Urine RBC 10-30 H (0-4) /hpf Urine WBC >30 H (0-5) /hpf Ur Epithelial Cells 0-5 (0-5) /lpf Urine Bacteria 2+ H (Negative) Adenovirus (PCR) (NotDetected) B. pertussis DNA (PCR) (NotDetected) B.parapertussis DNA PCR (NotDetected) C. pneumoniae DNA (PCR) (NotDetected) Coronavirus OC43 (PCR) (NotDetected) Coronavirus HKU1 (PCR) (NotDetected) Coronavirus 229E (PCR) (NotDetected) SARS-CoV-2 (PCR) (NotDetected) Coronavirus NL63 (PCR) (NotDetected) Human Metapneumovir PCR (NotDetected) Influenza Type A (PCR) (NotDetected) Influenza Type B (PCR) (NotDetected) M. pneumoniae (PCR) (NotDetected) Parainfluenza 1 (PCR) (NotDetected) Parainfluenza 2 (PCR) (NotDetected) Parainfluenza 3 (PCR) (NotDetected) Parainfluenza 4 (PCR) (NotDetected) RSV (PCR) (NotDetected) Entero/Rhino (PCR) (NotDetected) Administered Medications Lactated Ringer's (Lr) 1,000 mls @ 100 mls/hr IV .Q10H SHY Stop: 09/13/23 00:29 Last Admin: 08/14/23 00:14 Dose: 100 mls/hr Documented By: YAQUELIN Discontinued Medications Sodium Chloride (Nss) 1,000 mls @ 999 mls/hr IV .Q1H1M SHY Stop: 08/13/23 20:30 Last Infusion: 08/13/23 20:59 Dose: Infused Documented By: Admin: 08/13/23 19:48 Dose: 999 mls/hr Documented By: ADI Ceftriaxone Sodium (Rocephin) 50 mls @ 100 mls/hr IV NOW STA; Protocol Stop: 08/13/23 21:48 Last Infusion: 08/13/23 22:27 Dose: Infused Documented By: Admin: 08/13/23 21:29 Dose: 100 mls/hr Documented By: ADI Sodium Chloride (Nss) 1,000 mls @ 999 mls/hr IV .Q1H1M ONE Stop: 08/13/23 22:30 Last Infusion: 08/14/23 00:14 Dose: Infused Documented By: Admin: 08/13/23 21:51 Dose: 999 mls/hr Documented By: ADI Discharge Plan Visit Data Chief Complaint: Fall Stated Complaint: FALL/REPRODUCABLE CHEST PAIN, L. LEG PAIN ED Provider: Jadiel Smyth Discharge Problem: Fever Patient Disposition: Admitted As Inpatient Discharge Instructions Interventions: ED Discharge Assessment Last Done: 08/13/23 23:25 Discharge Problem: Fever Qualifiers: Fever type: unspecified Qualified Code(s): R50.9 - Fever, unspecified
[2023-08-13 19:48] LABS: Hematocrit (blood only) 36.7 % (42.0-52.0); Hemoglobin 11.4 g/dl (14.0-18.0); Mean Corpuscular Hemoglobin 30.7 pg (25.0-34.0); Mean Corpuscular Hgb Conc 31.1 g/dL (32.0-36.0); Mean Corpuscular Volume 98.9 fL (80.0-100.0); Mean Platelet Volume 10.6 fL (9.4-12.4); Platelet Count 173 K/uL (130-400); RDW Coefficient of Variation 13.7 % (11.5-14.5); RDW Standard Deviation 49.9 fL (36.4-46.3); Red Blood Count 3.71 M/uL (4.70-6.10); White Blood Count 9.03 K/ul (4.8-10.8)
[2023-08-13] MEDS: SODIUM CHLORIDE 0.9% 1,000 ML IV SCH (19:48)
[2023-08-13 20:03] LABS: Albumin Level 3.5 gm/dl (3.4-5.0); BUN Creatinine Ratio 12.7 (10-20); Bilirubin Direct 0.1 mg/dl (0-0.2); Bilirubin,Total 0.3 mg/dl (0.2-1.0); Calcium 8.6 mg/dl (8.6-10.3); Creatinine Clr Calc Pharmacy 28.6 ml/min; Est GFR (African American) 31.3 ml/min; Magnesium 1.6 mg/dl (1.7-2.4); Potassium 4.8 mmol/L (3.5-5.1); Total Protein 7.1 gm/dl (6.0-8.3)
[2023-08-13 20:10] LABS: Troponin I High Sensitivity 25.8 pg/ml (0-20)
[2023-08-13 20:28] LABS: Basophils # (auto) 0.01 K/uL (0.00-0.20); Basophils % (auto) 0.1 %; Immature Granulocytes # (auto) 0.04 K/uL (0.01-0.20); Immature Granulocytes % (auto) 0.4 %; Lymphocytes # (auto) 0.28 K/uL (1.20-3.40); Lymphocytes % (auto) 3.1 %; Monocytes # (auto) 0.34 K/uL (0.11-0.59); Monocytes % (auto) 3.8 %; Neutrophils # (auto) 8.36 K/uL (1.40-6.50); Neutrophils % (auto) 92.6 %
[2023-08-13 20:56] LABS: Adenovirus PCR Not Detected (NotDetected); Bordetella parapertussis PCR Not Detected (NotDetected); Bordetella pertussis PCR Not Detected (NotDetected); Chlamydia pneumoniae PCR Not Detected (NotDetected); Coronavirus 229E PCR Not Detected (NotDetected); Coronavirus CoV-2 (COVID19)PCR Not Detected (NotDetected); Coronavirus HKU1 PCR Not Detected (NotDetected); Coronavirus NL63 PCR Not Detected (NotDetected); Coronavirus OC43PCR Not Detected (NotDetected); Human Metapneumovirus PCR Not Detected (NotDetected); Influenza A PCR Not Detected (NotDetected); Influenza B PCR Not Detected (NotDetected); Mycoplasma pneumoniae PCR Not Detected (NotDetected); Parainfluenza Virus 1 PCR Not Detected (NotDetected); Parainfluenza Virus 2 PCR Not Detected (NotDetected); Parainfluenza Virus 3 PCR Not Detected (NotDetected); Parainfluenza Virus 4 PCR Not Detected (NotDetected); Respiratory Syncytial VirusPCR Not Detected (NotDetected); Rhinovirus/Enterovirus PCR Not Detected (NotDetected)
[2023-08-13] MEDS ORDERED: cefTRIAXone SODIUM 2,000 MG in DEXTROSE 5 % MINI-B 50 ML IV STA (21:00)
[2023-08-13] MEDS: SODIUM CHLORIDE 0.9% 1,000 ML IV ONE (21:51)
[2023-08-13 22:16] LABS: Appearance Urine Cloudy (Clear); Bilirubin Urine Negative (Negative); Blood Urine 3+ (Negative); Color Urine Yellow; Glucose Urine UA Negative (Negative); Ketones Urine Negative (Negative); Leukocyte Esterase Urine 1+ (Negative); Nitrite Urine Negative (Negative); Protein Urine 2+ (Negative); Urobilinogen Urine Negative (Negative); pH Urine 5.5 (4.5-7.5)
--- NOTE | 2023-08-13 22:17 | History & Physical Report ---
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 On arrival to the emergency department patient met SIRS criteria with source of infection being his urine. UTI // Hx of ESBL -Patient with history of recurrent UTIs -Patient met SIRS criteria on arrival to ED, consider urinary source -Patient also has history of Enterococcus and ESBL -U/A without nitrites but showing 1+ leukocyte esterase and 2+ bacteria -Urine cultures pending -Blood cultures pending -Will cover with ertapenem given history of ESBL. May narrow coverage depending on urine culture results Fall // Hx Ambulatory dysfunction -Patient with mechanical fall at home -Patient not currently experiencing any pain -Patient's states that she does not think he hit his head or lost consciousness -Patient's referring patient has been gradually weakening at home -Head CT ordered and pending -PT and OT ordered Elevated Troponins - elevated troponin from ~25 to ~46 - Possible this may be related to patient's history of kidney disease - Repeat troponin in the morning labs Hx CKD-IV -Follows nephrology as an outpatient -Creatinine baseline of 2.2-2.5 as per chart review -ED labs showing creatinine of 2.13 which is close to patient's baseline -Continue to monitor a.m. labs Chronic Anemia -Per chart review, patient's hemoglobin seems to range between 9 and 11 -Patient currently asymptomatic -Continue home iron -Monitor a.m. labs A-fib - Currently in a-fib without RVR - Continue home Metoprolol and Eliquis GERD - Continue Protonix DM-2 - Last Hgb A1c from 05/2023 was 5.7% - Controlled with diet at home - Will order SSI Hx TIA in 2022 - Patient on plavix chronically but cannot recall why. cannot recall either. 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 Patient was currently a poor historian. His was contacted (Esperanza Watson) and she refers that they have returned this morning from [facility] [place] where patient had a suprapubic catheter placed on . Upon arrival to the home patient was walking around and "acting a little weird ". Patient's states that he has history of recurrent urinary tract infections and infections of the skin in his suprapubic region due to accumulation/stagnant urine from his urinary leakage. In the afternoon/evening, patient was lying in his bed and moved to the side of his bed and was so far to the edge that he fell off. Patient's states that she does not think he hit his head or lost consciousness, but when attempting to get patient up she was not able to. She tried to call their neighbor to help her get patient up but they were not home, so she called an ambulance which brought patient up and took him to the emergency department. ED Course: On arrival to the emergency department, patient was febrile (38.4 C), tachycardic with a heart rate of 118, and stable blood pressures. CBC relatively white blood cell count above patient's baseline with neutrophilic predominance and elevated lactate 2.8. BioFire was ordered which was ultimately negative. Due to concerns of possible infection, patient was given a dose of IV ceftriaxone and given a normal saline bolus. Labs/Imaging: CBC with relative leukocytosis (WBC elevated from patient;s baseline) with neutrophilic predominance, mild anemia with hemoglobin of 11.4, and platelets of 173. CMP with mild hyponatremia (135) and decreased bicarb (17), creatinine elevated from patient's baseline (2.13), glucose of 141, and hypomagnesemia (1.6). Lactate on arrival was elevated at 2.8 which decreased to 1.3 with IV fluids. Troponins elevated to 25.8 which increased to 46.8 after 2 hours. Pro-Vu elevated at 1.34. Urinalysis with 3+ protein falling line plus leukocyte esterase, and 2+ bacteria, negative nitrites. Urine cultures pending. Blood cultures pending. Head CT ordered and not done yet. Allergies Allergy/AdvReac Type Severity Reaction Status Date / Time iron [From Venofer] AdvReac Mild warm Verified 07/30/23 14:39 sensation/flushing, discomfort in arm in which it was i Home Medications Medication Instructions Recorded Confirmed Type calcium carbonate 500 mg-vitamin 1 tab PO QAM 12/18/19 08/13/23 History D3 5 mcg (200 unit) tablet (Calcium 500 + D) vitamin B complex 1 tab PO QAM 12/18/19 08/13/23 History Lactobacillus acidophilus 10 10,000 mmu cells PO QDD 01/18/21 08/13/23 History billion cell capsule (Probiotic) multivitamin 1 tab PO DAILY 08/01/22 08/13/23 History sodium bicarbonate 650 mg tablet 650 mg PO BID Stomach upset #180 08/10/22 08/13/23 Rx tabs calcitriol 0.25 mcg capsule 0.25 mcg PO DAILY #90 caps 10/06/22 08/13/23 Rx magnesium oxide 400 mg (241.3 mg 400 mg PO BID #180 tabs 11/23/22 08/13/23 Rx magnesium) tablet acetaminophen 500 mg tablet 1,000 mg PO Q8H PRN Pain 12/22/22 08/13/23 History (Tylenol Extra Strength) apixaban 2.5 mg tablet (Eliquis) 2.5 mg PO BID #180 tabs 04/15/23 08/13/23 Rx clopidogrel 75 mg tablet (Plavix) 75 mg PO DAILY #90 tabs 04/15/23 08/13/23 Rx ferrous sulfate 325 mg (65 mg 325 mg PO DAILY 04/27/23 08/13/23 History iron) tablet,delayed release levothyroxine 25 mcg tablet 25 mcg PO DAILYBB 90 days #90 tabs 05/27/23 08/13/23 Rx (Synthroid) tamsulosin 0.4 mg capsule 0.4 mg PO DAILY #90 caps 06/14/23 08/13/23 Rx omeprazole 40 mg capsule,delayed 40 mg PO BID 90 days #180 caps 06/23/23 08/13/23 Rx release gabapentin 100 mg capsule 100 mg PO BID #180 caps 08/05/23 08/13/23 Rx metoprolol tartrate 50 mg tablet 50 mg PO BID 08/13/23 08/13/23 History miconazole nitrate 2 % topical 1 applic EXT BID PRN as directed 08/13/23 08/13/23 History powder (Desenex) Past Med/Surg History Medical History (Updated 08/14/23 @ 14:56 by Manan Heck DO) SCC (squamous cell carcinoma), penis Atrial fibrillation no cardioversions/ no pacer. treated with medication and follows with PCP GERD (gastroesophageal reflux disease) Stage 3b chronic kidney disease Acute UTI Pain in penis Lumbosacral facet joint syndrome Discogenic lumbar pain Acute metabolic encephalopathy UTI (urinary tract infection) Rib pain on left side Syncopal episodes COVID-19 Penile cancer KENROY (acute kidney injury) Unresponsiveness Anemia of chronic disease Diarrhea SCC (squamous cell carcinoma), penis Chronic pruritus Hypothyroidism Chronic renal insufficiency, stage IV (severe) Secondary hyperparathyroidism of renal origin Orthostatic hypotension Vitamin D deficiency SBO (small bowel obstruction) Small bowel obstruction due to adhesions Rectal bleed BRBPR (bright red blood per rectum) Dementia Hyperkalemia Acute cholecystitis Substernal chest pain resolved per pt Dysphagia "trouble keeping foods down" Fall walker and cane -- fall risk. Colitis Concussion Degenerative disc disease Osteoarthritis History of bleeding ulcers Diabetes mellitus, type 2 diet controlled Hx of migraines Hx of sleep apnea no device Balanoposthitis Phimosis DDD (degenerative disc disease), lumbar Atrial fibrillation (04/22/12) Peptic ulcer disease BPH w urinary obs/LUTS Anal fistula Fall LAST FALL 1 WEEK AGO Hypoglycemia Bradycardia Surgical History S/P laparoscopic cholecystectomy (09/17/20) Laparoscopic Cholecystectomy with Cholangiogram with akira drain 09/17/20 Dr. Atkinson Hx of circumcision 2 yrs ago H/O knee surgery "MULTIPLE KNEE SURGERIES"- R/L History of total shoulder replacement LEFT History of total knee replacement RT/LEFT History of esophagogastroduodenoscopy (EGD) History of colonoscopy History of tooth extraction Hx of transurethral resection of prostate H/O gastric bypass 2004 Family History Sister Family history of diabetes mellitus Social History (Updated 07/22/23 @ 13:07 by Alix Soria LPN) Smoking Status: Never smoker Tobacco Type: Cigarettes Second Hand Exposure: No; Do You Dip or Chew Tobacco: No; Hx Alcohol Use: No Hx Substance Use: No Preferred Language: Greek Communication Ability: Impaired Communication Ability Comment: can be forgetful Cooler Operator Required: No Beliefs That Will Affect Care: None marital status: Current Living Situation: Spouse Current Living Situation Comment: At home with current occupational status: retired Other Information That Helps Us Care for You: No Feels Safe at Home: Yes Safety Concerns: Feels Safe At This Time Diet: regular caffeine: No Dental Care, Regularly: Yes Seatbelt Use: always Assistive Devices: Walker Review of Systems Review of Systems: As per HPI Physical Exam Physical Exam: GENERAL: awake and alert, oriented to person and state, tired-appearing, NAD HEAD:NC, minor bruising on left scalp EYES: EOM intact, YAIR THROAT: normal to visual exam CHEST: symmetric chest expansions with respirations, no visible deformities CARDIO: irregular rhythm, no r/m/g PULMONARY: CTA, normal respiratory effort, no respiratory distress GI: soft, non-tender, non-distended : suprapubic catheter noted, collecting bag with clear urine, s/p penectomy, surrounding skin erythematous, warm and tender to palpation EXTREMITIES: no swelling in bilateral LE, no calf tenderness bilaterally Results & Data Results & Data Vital Signs (Past 12 Hours) Vital Signs Temp Pulse Resp BP Pulse Ox O2 Del Method 08/13/23 21:15 102 H 21 123/83 97 Room Air 08/13/23 20:59 115 H 24 120/78 97 Room Air 03/08/24 20:45 106 H 17 120/77 95 Room Air 08/13/23 20:30 102 H 18 108/82 92 Room Air 08/13/23 20:15 105 H 16 126/73 94 Room Air 08/13/23 20:01 105 H 20 106/68 97 Room Air 08/13/23 20:00 24 93 Room Air 08/13/23 19:45 104 H 23 109/64 94 Room Air 08/13/23 19:30 106 H 24 104/74 94 Room Air 08/13/23 19:28 101 H 17 94 Room Air 08/13/23 19:24 112 H 22 100/70 93 Room Air 08/13/23 19:10 38.4 C H 104 H 20 125/86 92 Room Air 08/13/23 19:09 118 H Supervising Physician Co-Signing Physician Notes attending addendum: I have physically seen this patient, have supervised the medical residents activities, and agree with the H&P unless as otherwise noted. Assessment and Plan: Urinary tract infection/suprapubic catheter- History of Enterococcus faecalis on 04/20/2023 and ESBL E. coli on 10/08/2022 Follow urine culture and sensitivity Ertapenem 1 g IV every 24 hours Ambulatory dysfunction/falls- Gradually weakening at home Likely functional functional General debilitation and worsening symptoms related to UTI Consult PT/OT CKD stage IV- Creatinine 2.13 on admission, with range 1.78-2.73 Follow as IV fluid rehydration of occurs Elevated troponin/atrial fibrillation without RVR- Continue metoprolol and Eliquis Troponin 25.8 with follow-up 46.8 Continue to follow serially on telemetry likely supply demand mismatch associate with infection and associated with CKD Remaining orders and notations as noted (3) Hypothyroidism Hypothyroidism type: acquired Qualified Code(s): E03.9 - Hypothyroidism, unspecified (4) Atrial fibrillation Atrial fibrillation type: unspecified Qualified Code(s): I48.91 - Unspecified atrial fibrillation (5) GERD (gastroesophageal reflux disease) Esophagitis presence: esophagitis presence not specified Qualified Code(s): K21.9 - Gastro-esophageal reflux disease without esophagitis (8) Anemia Anemia type: unspecified type Qualified Code(s): D64.9 - Anemia, unspecified (10) Dementia Dementia behavioral disturbance: without behavioral disturbance Dementia type: unspecified type Qualified Code(s): F03.90 - Unspecified dementia without behavioral disturbance
[2023-08-13 22:29] LABS: Epithelial Cell Urine 0-5 /lpf (0-5)
[2023-08-13 22:30] LABS: Bacteria Urine 2+ (Negative); WBC Urine >30 /hpf (0-5)
--- NOTE | 2023-08-13 23:58 | CT Scan Report ---
Exam(s): CT HEAD Without Contrast EXAM: CT Head Without Intravenous Contrast CLINICAL HISTORY: Reason for exam: Fall; history of chronic anticoagulation. TECHNIQUE: Axial computed tomography images of the head/brain without intravenous contrast. Automated exposure control was utilized for the study. A dose lowering technique was utilized adhering to the principles of ALARA. COMPARISON: No relevant prior studies available. FINDINGS: No acute intracranial hemorrhage. No midline shift or mass effect. The territorial dias-white matter differentiation is maintained throughout. Age-related cerebral volume loss. Periventricular and subcortical white matter hypoattenuation, consistent with chronic microangiopathy. The visualized orbits appear grossly unremarkable. The calvarium is intact. The visualized paranasal sinuses and mastoid air cells are grossly clear. IMPRESSION: No acute intracranial hemorrhage, midline shift, or mass effect. Electronically signed by: Blake Mohan MD 08/13/23 23:57 PM
[2023-08-14] MEDS ORDERED: DEXTROSE 50% 50 ML SYRINGE IV PRN (00:11)
[2023-08-14] MEDS ORDERED: CARBOHYDRATES FOR HYPOGLYCEMIA PO PRN (00:11)
[2023-08-14] MEDS ORDERED: GLUCOSE 40% GEL 15 GM TUBE PO PRN (00:11)
[2023-08-14] MEDS ORDERED: GLUCOSE 10 TAB/TUBE PO PRN (00:11)
[2023-08-14] MEDS ORDERED: ACETAMINOPHEN 325 MG TAB PO PRN (00:11)
[2023-08-14] MEDS ORDERED: GLUCAGON FOR INJ 1 MG VIAL SQ PRN (00:11)
[2023-08-14] MEDS: LACTATED RINGER'S 1,000 ML IV SCH (00:14)
[2023-08-14] MEDS: ERTAPENEM SODIUM 500 MG in SYRINGE 0 ML IV SCH (00:28)
[2023-08-14] MEDS: ACETAMINOPHEN 500 MG TAB PO PRN (00:28)
[2023-08-14] MEDS: LEVOTHYROXINE SODIUM 25 MCG TABLET PO SCH (05:42)
--- NOTE | 2023-08-14 07:27 | XRay Report ---
XR chest 1V portable CLINICAL HISTORY: Sepsis TECHNIQUE: Single frontal radiograph of the chest was obtained. Comparison: Comparison is made to chest radiograph 06/10/2023 FINDINGS: Left shoulder reverse arthroplasty is seen. Cardiomegaly is noted. The aortic arch is calcified. Prom inence and cephalization of the vasculature is seen. Questionable small bilateral pleural effusions. IMPRESSION: Cardiomegaly and mild pulmonary edema. ACT 112: Negative or not required by law. Electronically signed by: Anton Mensah M.D. 08/14/2023 7:26 AM
[2023-08-14 07:39] LABS: Hematocrit (blood only) 32.1 % (42.0-52.0); Mean Corpuscular Hemoglobin 30.6 pg (25.0-34.0); Mean Corpuscular Hgb Conc 31.2 g/dL (32.0-36.0); Mean Corpuscular Volume 98.2 fL (80.0-100.0); Mean Platelet Volume 10.6 fL (9.4-12.4); Platelet Count 128 K/uL (130-400); RDW Coefficient of Variation 13.9 % (11.5-14.5); RDW Standard Deviation 50.3 fL (36.4-46.3); Red Blood Count 3.27 M/uL (4.70-6.10); White Blood Count 5.18 K/ul (4.8-10.8)
[2023-08-14 07:49] LABS: Albumin Globulin Ratio 1.1 (0.9-2); BUN Creatinine Ratio 11.3 (10-20); Bilirubin,Total 0.2 mg/dl (0.2-1.0); Calcium 8.1 mg/dl (8.6-10.3); Creatinine Clr Calc Pharmacy 30.8 ml/min; Est GFR (African American) 34.8 ml/min; Globulin 2.8 gm/dl (2.5-4.0); Magnesium 1.6 mg/dl (1.7-2.4); Potassium 4.6 mmol/L (3.5-5.1); Total Protein 5.8 gm/dl (6.0-8.3)
--- NOTE | 2023-08-14 08:36 | Urology Consultation ---
Date of Consultation August 14, 2023 Assessment & Plan (1) SCC (squamous cell carcinoma), penis: (2) Urinary leakage: Plan 88-year-old male with a history of a partial penectomy at [facility] and more recently an SP tube placed at [facility] due to persistent incontinence via urethra Physical exam is nonconcerning. SP tube is draining clear yellow urine Patient is experiencing bladder spasms and leakage via urethra. Unfortunately, we are limited with options at this point. Not unreasonable to try Ditropan 5 mg XR with the understanding that it could cause dry mouth, dry eyes, constipation and some confusion. Other options would be Myrbetriq 25 mg or Gemtesa 75 mg, however gemtesa can affect renal function so this would need to be monitored. 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 Low suspicion for true infection however Local wound care. Can consult wound if deemed necessary Follow-up with [facility] as well as Dr. Carranza as previously scheduled Urology to sign off History of Present Illness Attending Physician: Liz Doe MD History of Present Illness 88-year-old male with a history of penile cancer who is status post partial penectomy at [facility]. He also follows with Dr. Carranza locally. He has had significant bladder spasms and leakage since that time. He recently had an SP tube placed at [facility] to hopefully help with this. He suffered a fall and was admitted to the hospital. Urology was consulted for urinary incontinence. He is afebrile with stable blood pressure. Mildly tachycardic at 101. Labs show a white blood cell count of 5.1, hemoglobin of 10, creatinine of 1.95 which is down trended and a urinalysis that was nitrite negative, 1+ leukocyte Estrace, 10-30 RBCs, greater than 30 WBCs and 2+ bacteria, however this is as expected as he is colonized. Cultures are pending. He reports he is still experiencing intermittent bladder spasms and leakage via urethra. Allergies Allergy/AdvReac Type Severity Reaction Status Date / Time iron [From Venofer] AdvReac Mild warm Verified 07/30/23 14:39 sensation/flushing, discomfort in arm in which it was i Home Medications Medication Instructions Recorded Confirmed Type calcium carbonate 500 mg-vitamin 1 tab PO QAM 12/18/19 08/13/23 History D3 5 mcg (200 unit) tablet (Calcium 500 + D) vitamin B complex 1 tab PO QAM 12/18/19 08/13/23 History Lactobacillus acidophilus 10 10,000 mmu cells PO QDD 01/18/21 08/13/23 History billion cell capsule (Probiotic) multivitamin 1 tab PO DAILY 08/01/22 08/13/23 History sodium bicarbonate 650 mg tablet 650 mg PO BID Stomach upset #180 08/10/22 08/13/23 Rx tabs calcitriol 0.25 mcg capsule 0.25 mcg PO DAILY #90 caps 10/06/22 08/13/23 Rx magnesium oxide 400 mg (241.3 mg 400 mg PO BID #180 tabs 11/23/22 08/13/23 Rx magnesium) tablet acetaminophen 500 mg tablet 1,000 mg PO Q8H PRN Pain 12/22/22 08/13/23 History (Tylenol Extra Strength) apixaban 2.5 mg tablet (Eliquis) 2.5 mg PO BID #180 tabs 04/15/23 08/13/23 Rx clopidogrel 75 mg tablet (Plavix) 75 mg PO DAILY #90 tabs 04/15/23 08/13/23 Rx ferrous sulfate 325 mg (65 mg 325 mg PO DAILY 04/27/23 08/13/23 History iron) tablet,delayed release levothyroxine 25 mcg tablet 25 mcg PO DAILYBB 90 days #90 tabs 05/27/23 08/13/23 Rx (Synthroid) tamsulosin 0.4 mg capsule 0.4 mg PO DAILY #90 caps 06/14/23 08/13/23 Rx omeprazole 40 mg capsule,delayed 40 mg PO BID 90 days #180 caps 06/23/23 08/13/23 Rx release gabapentin 100 mg capsule 100 mg PO BID #180 caps 08/05/23 08/13/23 Rx metoprolol tartrate 50 mg tablet 50 mg PO BID 08/13/23 08/13/23 History miconazole nitrate 2 % topical 1 applic EXT BID PRN as directed 08/13/23 08/13/23 History powder (Desenex) Patient History Medical History (Updated 08/14/23 @ 00:15 by Jadiel Smyth DO) SCC (squamous cell carcinoma), penis Atrial fibrillation no cardioversions/ no pacer. treated with medication and follows with PCP GERD (gastroesophageal reflux disease) Stage 3b chronic kidney disease Acute UTI Pain in penis Lumbosacral facet joint syndrome Discogenic lumbar pain Acute metabolic encephalopathy UTI (urinary tract infection) Rib pain on left side Syncopal episodes COVID-19 Penile cancer KENROY (acute kidney injury) Unresponsiveness Anemia of chronic disease Diarrhea SCC (squamous cell carcinoma), penis Chronic pruritus Hypothyroidism Chronic renal insufficiency, stage IV (severe) Secondary hyperparathyroidism of renal origin Orthostatic hypotension Vitamin D deficiency SBO (small bowel obstruction) Small bowel obstruction due to adhesions Rectal bleed BRBPR (bright red blood per rectum) Dementia Hyperkalemia Acute cholecystitis Substernal chest pain resolved per pt Dysphagia "trouble keeping foods down" Fall walker and cane -- fall risk. Colitis Concussion Degenerative disc disease Osteoarthritis History of bleeding ulcers Diabetes mellitus, type 2 diet controlled Hx of migraines Hx of sleep apnea no device Balanoposthitis Phimosis DDD (degenerative disc disease), lumbar Atrial fibrillation (04/22/12) Peptic ulcer disease BPH w urinary obs/LUTS Anal fistula Fall LAST FALL 1 WEEK AGO Hypoglycemia Bradycardia Surgical History S/P laparoscopic cholecystectomy (09/17/20) Laparoscopic Cholecystectomy with Cholangiogram with akira drain 09/17/20 Dr. Atkinson Hx of circumcision 2 yrs ago H/O knee surgery "MULTIPLE KNEE SURGERIES"- R/L History of total shoulder replacement LEFT History of total knee replacement RT/LEFT History of esophagogastroduodenoscopy (EGD) History of colonoscopy History of tooth extraction Hx of transurethral resection of prostate H/O gastric bypass 2004 Family History Sister Family history of diabetes mellitus Social History (Updated 07/22/23 @ 13:07 by Alix Soria LPN) Smoking Status: Never smoker Tobacco Type: Cigarettes Second Hand Exposure: No; Do You Dip or Chew Tobacco: No; Hx Alcohol Use: No Hx Substance Use: No Preferred Language: Citizen Of [place] Communication Ability: Effective Communication Ability Comment: can be forgetful Copy Center Associate Required: No Beliefs That Will Affect Care: None marital status: Current Living Situation: Spouse Current Living Situation Comment: At home with current occupational status: retired Other Information That Helps Us Care for You: No Feels Safe at Home: Yes Safety Concerns: Feels Safe At This Time Diet: regular caffeine: No Dental Care, Regularly: Yes Seatbelt Use: always Assistive Devices: Walker Review of Systems Review of Systems: 14 point review of systems negative outs tip of what is listed above in HPI Physical Exam Physical Exam: General: Alert and oriented, no acute distress HEENT: Normocephalic, mucous membranes moist Pulmonary: Nonlabored respirations Abdomen: Nondistended. 14 Cymro SP tube in midline of lower abdomen draining clear yellow urine. Site clean dry and intact with dressing in place : Status post partial penectomy. He has significant irritation at the level of the surgery and in the scrotum, which I suspect is from the surgery and urinary incontinence. No crepitus or purulent discharge. Nontender to palpation. He actively was having a spasm and had visible incontinence per urethra. Extremities: Moves all 4 spontaneously Neuro: No gross deficits Skin: Warm, dry, no rashes noted Results & Data Vital Signs (Past 12 Hours) Vital Signs Temp Pulse Pulse Resp BP BP Pulse Ox 08/14/23 08:18 37.0 C 101 H 18 133/80 97 08/14/23 02:59 37.0 C 101 H 18 133/80 97 08/13/23 23:55 100 H 08/13/23 23:45 37.0 C 101 H 16 133/80 97 08/13/23 23:04 89 08/13/23 23:00 105 H 24 122/76 92 08/13/23 22:46 126 H 20 109/92 08/13/23 22:30 104 H 24 123/76 08/13/23 22:15 114 H 20 120/84 08/13/23 22:00 101 H 13 112/67 96 08/13/23 21:45 111 H 17 113/68 95 08/13/23 21:30 111 H 13 108/71 94 08/13/23 21:15 102 H 21 123/83 97 08/13/23 20:59 115 H 24 120/78 97 08/13/23 20:45 106 H 17 120/77 95 O2 Del Method 08/14/23 08:18 Room Air 08/14/23 02:59 Room Air 08/13/23 23:55 08/13/23 23:45 Room Air 08/13/23 23:04 08/13/23 23:00 Room Air 08/13/23 22:46 08/13/23 22:30 08/13/23 22:15 08/13/23 22:00 Room Air 08/13/23 21:45 Room Air 08/13/23 21:30 Room Air 08/13/23 21:15 Room Air 08/13/23 20:59 Room Air 08/13/23 20:45 Room Air PG Care Time/CCT Total # of Minutes Spent Total Time Spent with Patient: Total time spent is greater than 50% in coordination of care (as documented) at patient's floor/unit and/or counseling patient: Coding Level of Care Code 21674 INT INP/OBS CARE 2/55MIN Diagnoses SCC (squamous cell carcinoma), penis C60.9 Urinary leakage R32
--- OUTSIDE RECORDS SUMMARY | 2023-08-14 08:38 | External Medical Summary | Continuity of Care Document ---
Author Name Unknown Organization [facility] [address] [place] [id number] Care Team Providers Care Finance Consultant Name Role Phone Pablo Hernandez Primary Care Physician [phone] Encounter [facility] [id number] Date(s): 08/06/23 - 08/06/23 [facility] [address] [facility] [address], [address], [address] [place] [address] Encounter Diagnosis Pre-op exam(Discharge Diagnosis) - 08/06/23 Discharge Disposition: Home or Self Care Attending Physician: MD Schmitz Wayne Referring Physician: MD Moore Roderick Keir Allergies, Adverse Reactions, Alerts No Known Allergies Medications acetaminophen 500 mg oral tablet Start: 12/18/22 8:31:00 EDT, 2 tab, PO, q8h, PRN: as needed for pain Start Date: 12/18/22 Status: Ordered calcitriol 0.25 mcg oral capsule Start: 10/29/22 11:57:00 EDT, 1 cap, PO, Daily Start Date: 10/29/22 Status: Ordered calcium-vitamin D extended release Start: 05/15/21 11:06:00 EST, 1 tab, PO, Daily Start Date: 05/15/21 Status: Ordered Eliquis 2.5 mg oral tablet Start: 06/16/22 11:19:00 EST, 1 tab, PO, bid Start Date: 06/16/22 Status: Ordered gabapentin Start: 09/18/22 12:51:00 EDT, 100 mg =, PO, bid Start Date: 09/18/22 Status: Ordered levothyroxine 25 mcg (0.025 mg) oral tablet TAKE 1 TABLET BY MOUTH ONCE DAILY Start Date: 02/19/22 Status: Ordered magnesium oxide Start: 12/01/22 10:24:00 EDT, 400 mg =, PO, bid Start Date: 12/01/22 Status: Ordered Metoprolol Tartrate 50 mg oral tablet Start: 05/15/21 11:03:00 EST, 1 tab, PO, bid Start Date: 05/15/21 Status: Ordered multivitamin Start: 05/15/21 11:05:00 EST, 1 tab, PO, Daily Start Date: 05/15/21 Status: Ordered nystatin 100,000 units/g topical cream See Instructions, Disp# 15 g, APPLY TOPICALLY TWICE DAILY FOR 14 DAYS, Pharmacy: [id number] Start Date: 07/16/23 Status: Ordered omeprazole 40 mg oral delayed release capsule Start: 05/15/21 11:04:00 EST, 1 cap, PO, bid Start Date: 05/15/21 Status: Ordered Plavix Start: 09/18/22 12:56:00 EDT, 75 mg =, PO, Daily Start Date: 09/18/22 Status: Ordered Probiotic Formula Start: 08/06/23 8:18:00 EST, 1 cap, PO, Daily Start Date: 08/06/23 Status: Ordered sodium bicarbonate 650 mg oral tablet Start: 05/15/21 11:03:00 EST, 1 tab, PO, bid Start Date: 05/15/21 Status: Ordered tamSULOsin Start: 09/18/22 12:55:00 EDT, 0.4 mg =, PO, Daily Start Date: 09/18/22 Status: Ordered Vitamin B Complex Start: 05/15/21 11:05:00 EST, See Instructions, 1 tab PO daily Start Date: 05/15/21 Status: Ordered Problem List Condition Confirmation Course Effective Dates Status Health St atus Informant Afib Confirmed Active MRSA (methicillin resistant staph aureus) culture positive 1 Confirmed 06/23/22 Active Dermatitis Confirmed Active Lichen sclerosus of penis Confirmed Active Penile cancer Confirmed Active Pre-op exam Confirmed Active Bleeding ulcer Confirmed Active 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 Vertigo Confirmed Active 1WOUND PENIS SWAB, 1+ STAPHYLOCOCCUS AUREUS (RESISTANT TO OXACILLIN), Date of Service: June 23, 2022 13:51 EST Diagnosis Diagnosis Type Effective Dates Health Status Clini flavio Service Informant Pre-op exam Discharge Diagnosis 08/06/23 Procedures Procedure Date Related Diagnosis Body Site Status Mohs micrographic surgery 06/16/22 Completed Shave biopsy 05/28/22 Completed Shave biopsy 1 02/19/22 Completed Colonoscopy 2 12/13/20 Completed Esophagogastroduodenoscopy 3 12/13/20 Completed Esophagogastroduodenoscopy 4, 5, 6 08/07/20 Completed Circumcision 2019 Completed Endoscopy 12/2013 Completed Shoulder replacement 7 05/2012 Co mpleted Excess skin of abdomen 8 2006 Completed Gastric bypass operation 2004 Completed Knee replacement 9 Comple drew 1foreskin of penis 2The examined portio nof the ileum was normal. Rednundant colon. Diverticulosis in the left colon. Prep overall good byt fair in places. The ascending colon and simoid colon biopsied to evaluate for microscopic coltis. Internal hemorrhoids. The examination was otherwise normal on direct and retroflexion views. 3Final Diagnosis: A. Colon, ascending, biopsy: No diagnostic abnormality B. Colon, sigmoid, biopsy: No diagnostic abnormality. 4EGD Gastrectomy with BI anastomosis, presbyesophagus, mid and distal esophagus biopsied, 5possible increased LES pressure noted. 6No significant abnormalities. follow up as needed 7left 8removed 9bilateral knees a total of 9 times Social History Social History Type Response Smoking Status Former Smoker, quit > 1 yr Sex Male Anes H&P * MD Ainsley, Keny: SIGN MD Ainsley, Keny: SIGN, VERIFY MD Ainsley, Keny: VERIFY, SIGN MD Ainsley, Keny: SIGN MD Jin, Alley: MODIFY, MODIFY, MODIFY, MODIFY, MODIFY, MODIFY, SIGN, SIGN RACHAEL Oshea Charlynn J: SIGN, MODIFY RACHAEL Oshea Charlynn J: MODIFY, SIGN RACHAEL Oshea Charlynn J: SIGN, MODIFY RACHAEL Oshea Charlynn J: MODIFY Event Display: Anes H&P Authored Date: [id number] Patient: ANABELLE WILLIAMSON Age: 88 years Sex: Male : 1935 Associated Diagnoses: None Author: RACHAEL Oshea Charlynn J Preoperative Information Anesthesia Preop Info: Procedure: suprapubic catheter insertion Date: 08/12/23 17:40 Surgeons: MD Oscar, Oliver Stover Diagnosis: urinary incontinence . This patient has been evaluated via TELEVISIT Best phone number to contact patient: - speaker phone with patient and his Esperanza; she provides pmhx, answers the majority of the questions, and wrote down presurgery instructions History of Present Illness 88 y.o. male with complex pmhx, h/o penile cancer and urinary incontinence. Plan above Reviewed and updated 12/14/22 [facility] [place]&P which was done prior to 12/15/22 partialpenectomy procedure Anesthesia History PONV: Denies. History of Motion Sickness: Denies. Patient Complications: Negative. Family History of Anesthesia Problems: Negative. 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 Symptoms: Denies SOB/CP. Medical History Cardiovascular: F/b Cardiology from different facility ([facility] cardiology Dr. Brink (reportedly stable last visit 06/2023)). Hypertension: Beta Gina, Usual home BP about 101/71, patient's states patient recently evaluated for hypotension, but this resolved, without intervention. Valves: Mild MR. Dysrhythmia: A-fib, Paroxysmal, Rate controlled, + beta gina, Anticoagulation, Eliquis. Medical Devices: None. Renal: CKD, Stage III (F/B PCP), Last GFR 33.4 (10/11/2022 labs), Last Creat 2.03 (10/11/2022 [facility] labs), BPH. Flomax. Urinary incontinence. Plan above. Endocrine/Metabolic: Diabetes: History of Type II (F/B PCP), Resolved with weight loss, Medication in the past, No current medications, FBS not monitored. Thyroid: Hypothyroidism, Stable dose of thyroid medication, Treated with oral medication, Asymptomatic, F/B PCP. Pulmonary: Ex-smoker ( 1ppd x many years, quit 1986; denies COPD diagnosis), No recent URI or covid 19 symptoms or exposure. Patient instructed to notify surgery service if this changes prior to surgery date; completed covid vaccines x 2 and booster x 4, Obstructive Sleep Apnea (resolved after bariatric surgery associated weight loss). Neurologic: DDD. Chronic LBP. Prior steroid injections. Gabapentin. F/B [facility] chronic pain clinic Mild dementia/ memory recall difficulty. TIA: Date 08/11/22, No residuals, Plavix. Infectious: Contact Isolation: MRSA, H/O infection, Colonized. Gastrointestinal: Peptic ulcer disese. GERD: Omeprazole. Obesity: Class I obesity (BMI 30-34.9), BMI: 32, S/P bariatric surgery (s/p open gastric bypass (2004), with subsequent 175 pound weight loss). Oncology: Type of CA Penile cancer, s/p partial penectomy (12/15/22). No chemo, no xrt. 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 S/P: Left TKA, Right TKA, Left TSA. Patient Concerns: None. 07/16/23 [facility] vital signs: Ht: 172cm, Wt: 95kg, BMI: 32 Health Status Allergies: Allergic Reactions (Selected) NKA. Histories Procedure History: Mohs micrographic surgery ([id number]) performed by MD Hermelindo, Cheko Martinez on 06/16/2022 at 87 Years. Shave biopsy ([id number]) performed by MD Norah, Callahan on 05/28/2022 at 87 Years. Shave biopsy ([id number]) on 02/19/2022 at 86 Years. Comments: 02/19/2022 10:39 MELA Bolanos LPN, Edith L foreskin of penis Esophagogastroduodenoscopy ([id number]) on 12/13/2020 at 85 Years. Comments: 12/17/2020 14:54 MELA Gonzlaes LPN, Kimbra J Final Diagnosis: A. Colon, ascending, biopsy: No diagnostic abnormality B. Colon, sigmoid, biopsy: No diagnostic abnormality. Colonoscopy ([id number]) on 12/13/2020 at 85 Years. Comments: 01/01/2021 09:46 MELA Santiago LPN, Erin The examined portio nof the ileum was normal. Rednundant colon. Diverticulosis in the left colon. Prep overall good byt fair in places. The ascending colon and simoid colon biopsied to evaluate for microscopic coltis. Internal hemorrhoids. The examination was otherwise normal on direct and retroflexion views. Esophagogastroduodenoscopy ([id number]) on 08/07/2020 at 85 Years. Comments: 08/16/2020 14:56 HIEU Springer LPN, Natasha No significant abnormalities. follow up as needed 08/07/2020 14:55 HIEU Shaffer MD, Brian D possible increased LES pressure noted. 08/07/2020 14:48 HIEU Shaffer MD, Brian D EGD Gastrectomy with BI anastomosis, presbyesophagus, mid and distal esophagus biopsied, Circumcision ([id number]) performed by MD Hoffmann Christopher T in 2019 at 85 Years. Endoscopy ([id number]) in the month of 12/2013 at 78 Years. Shoulder replacement ([id number]) in the month of 05/2012 at 77 Years. Comments: 01/18/2014 10:24 Sarahy Kulkarni left Excess skin of abdomen ([id number]) in 2006 at 72 Years. Comments: 01/18/2014 10:23 Sarahy Kulkarni removed Gastric bypass operation ([id number]) in 2004 at 70 Years. Knee replacement ([id number]). Comments: 01/18/2014 10:24 Sarahy Kulkarni bilateral knees a total of 9 times. 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 1ppd x many years, quit 1986 Other Tobacco Use: No Alcohol: No Recreational Drugs: No . Assessment and Plan Medications: Pre-Surgery Medication Instructions Bring presurgery instructions along day of surgery. You will need to notify your nurse of last doseand time of medications you took, on day of surgery: acetaminophen (acetaminophen 500 mg oral tablet) 2 tab by mouth every 8 hours, as needed for pain . Continue as usual until surgery_ apixaban (Eliquis 2.5 mg oral tablet) 1 tab by mouth 2 times daily . Stop 7 days before surgery, as directed by surgeon (last preop dose taken 08/03/23)_ bifidobacterium-lactobacillus (Probiotic Formula) 1 cap by mouth once daily . Do not take morning of surgery_ calcitriol (calcitriol 0.25 mcg oral capsule) 1 cap by mouth once daily . Do not take morning of surgery_ calcium-vitamin D (calcium-vitamin D extended release) 1 tab by mouth once daily . Do not take morning of surgery clopidogrel (Plavix) 75 mg by mouth once daily . Stop 7 days before surgery, as directed by surgeon (last preop dose taken 08/03/23_ gabapentin 100 mg by mouth 2 times daily . Take morning of surgery, as usual_ levothyroxine (levothyroxine 25 mcg (0.025 mg) oral tablet) .TAKE 1 TABLET BY MOUTH ONCE DAILY Take morning of surgery, as usual_ magnesium oxide 400 mg by mouth 2 times daily . Do not take morning of surgery_ metoprolol (Metoprolol Tartrate 50 mg oral tablet) 1 tab by mouth 2 times daily . Take morning of surgery, as usual_ multivitamin 1 tab by mouth once daily . Stop 7 days before surgery_ multivitamin (Vitamin B Complex) See Instructions .1 tab PO daily Do not take morning of surgery_ nystatin topical (nystatin 100,000 units/g topical cream) See Instructions .APPLY TOPICALLYTWICE DAILY FOR 14 DAYS Do not take morning of surgery_ omeprazole (omeprazole 40 mg oral delayed release capsule) 1 cap by mouth 2 times daily . Take morning of surgery, as usual_ sodium bicarbonate (sodium bicarbonate 650 mg oral tablet) 1 tab by mouth 2 times daily . Do not take morning of surgery_ tamsulosin (tamSULOsin) 0.4 mg by mouth once daily . Take morning of surgery, as usual_ . Does patient use aspirin?: No. Does patient use beta blockers?: Yes. Does patient use CHAPO- I/ARB drugs?: No. Does patient use narcotic analgesics for chronic pain? (>1 month AND >30mg morphine or equivalent daily): No. Anesthesiologist Assessment and Plan Problems: No previous anesthetic complications, No a/w concerns. ASA Classification: Class III. Anesthetic Plan: Anesthetic technique discussed: General anesthesia. Risks discussed: Sore throat, Dental injury, Serious complications. Special techniques and precautions discussed: Transfusion of blood or blood products. Review / Management Laboratory Results: Lab results. Ordered Today: Per surgery protocol. EKG: Recently done - requested from outside facility. Diagnostics: [facility]: . Orders placed for day of surgery: None. Records requested from outside facility: Cardiology ([facility] cardiology Dr. Brink, most recent consult, ekg (06/2023)). Pending issues: None. Patient Education Patient Education: Adult Presurgery Instructions ([facility]). TeleHealth I have confirmed the patients name and date of . The patient has consented to this service,and I have advised the patient that this is a billable visit for which they may be subject to a copay.: Yes. The patient has initiated this visit after he/she was informed of the availability of telehealth for this medically necessary visit.: Yes. Electronic Signature on File Electronically Reviewed/Signed by: RACHAEL Gaspar Author Signature Dt/Tm:08/06/2023 08:44 AM Preoperative/Anesthesia Clinic Electronically Reviewed/Signed by: Keny Markham Signature Dt/Tm: 08/06/2023 09:22 AM Department of Anesthesia [facility] * RACHAEL Oshea Charlynn J: PERFORM, MODIFY Event Display: Anes H&P Authored Date: [id number] 07/13/22 [facility] cardiac consult: 04/21/23 [facility] EKG: Electronic Signature on File Electronically Reviewed/Signed by: RACHAEL Gaspar Author Signature Dt/Tm:08/06/2023 12:41 PM Preoperative/Anesthesia Clinic Electronically Reviewed/Signed by: RACHAEL Gasparer Signature Dt/Tm: 08/06/2023 12:41 PM Preoperative/Anesthesia Clinic Electronically Reviewed/Signed by: Keny Markham Signature Dt/Tm: 08/06/2023 04:00 PM Department of Anesthesia Electronically Reviewed/Signed by: Alley Abdi MD Resident Department of Anesthesia [facility] Patient Care team information Care Team Personnel Name: Tati Lozoya Amy E Position: Pharmacist Member Role: Pharmacy - Lifetime Address: Address: [facility] [address] [place] [address] [place] Name: MD Hermelindo, Cheko Martinez Position: Physician - Derm MOH Member Role: Lifetime Relationship Address: Address: [address] [place] [id number] [place] Name: DO Hernandez William Price Position: Referring Member Role: Primary Care Provider Address: Address: [facility] [address] [facility] [place] [address] Care Team Related Persons Name: ARIELA WILLIAMSON Address: home [address] [place] [phone]
--- OUTSIDE RECORDS SUMMARY | 2023-08-14 08:38 | External Medical Summary | Continuity of Care Document ---
Author Name Unknown Organization [facility] [address] [place] [address] LO[place] SHIELDS [phone] Care Team Providers Care Sterilizer Operator Name Role Phone Pablo Hernandez Primary Care Physician [phone] Encounter [facility] [id number] Date(s): 08/02/23 - 08/02/23 [facility] [address] [facility] [address], [address], [address] [place] [address] [phone] Encounter Diagnosis Urinary incontinence(Discharge Diagnosis) - 08/02/23 Discharge Disposition: Home or Self Care Attending Physician: MD Oscar, Oliver Stover Referring Physician: DO Hernandez William Price Allergies, Adverse Reactions, Alerts No Known Allergies Assessment and Plan Extracted from: Title:TeleHealth Visit Note Author:MD Oscar, Mima Stover Date:08/02/23 1) Plan for suprapubic iris ter Medications acetaminophen 500 mg oral tablet Start: 12/18/22 8:31:00 EDT, 2 tab, PO, q8h, PRN: as needed for pain Start Date: 12/18/22 Status: Ordered calcitriol 0.25 mcg oral capsule Start: 10/29/22 11:57:00 EDT, 1 cap, PO, Daily Start Date: 10/29/22 Status: Ordered calcium-vitamin D extended release Start: 05/15/21 11:06:00 EST, 1 tab, PO, Daily Start Date: 05/15/21 Status: Ordered docusate sodium 100 mg oral capsule Start: 12/18/22 7:13:00 EDT, 1 cap, PO, bid, Disp# 60 cap, Refills: 1, Pharmacy: [facility] Start Date: 12/18/22 Status: Ordered Eliquis 2.5 mg oral tablet Start: 06/16/22 11:19:00 EST, 1 tab, PO, bid Start Date: 06/16/22 Status: Ordered gabapentin Start: 09/18/22 12:51:00 EDT, 100 mg =, PO, bid Start Date: 09/18/22 Status: Ordered levothyroxine 25 mcg (0.025 mg) oral tablet TAKE 1 TABLET BY MOUTH ONCE DAILY Start Date: 02/19/22 Status: Ordered magnesium oxide Start: 12/01/22 10:24:00 EDT, 400 mg =, bid Start Date: 12/01/22 Status: Ordered Metoprolol Tartrate 50 mg oral tablet Start: 05/15/21 11:03:00 EST, 1 tab, PO, bid Start Date: 05/15/21 Status: Ordered multivitamin Start: 05/15/21 11:05:00 EST, 1 tab, PO, Daily Start Date: 05/15/21 Status: Ordered nystatin 100,000 units/g topical cream See Instructions, Disp# 15 g, APPLY TOPICALLY TWICE DAILY FOR 14 DAYS, Pharmacy: [id number] Start Date: 07/16/23 Status: Ordered omeprazole 40 mg oral delayed release capsule Start: 05/15/21 11:04:00 EST, 1 cap, PO, bid Start Date: 05/15/21 Status: Ordered oxyBUTYnin 5 mg/24 hours oral tablet, extended release Start: 02/19/23 15:40:00 EDT, 1 tab, PO, Daily, Disp# 30 tab, Refills: 4, PRN: as needed for urinary discomfort, Pharmacy: [id number] Start Date: 02/19/23 Stop Date: 07/19/23 Status: Ordered Plavix Start: 09/18/22 12:56:00 EDT, 75 mg =, PO, Daily Start Date: 09/18/22 Status: Ordered Probiotic Formula oral capsule Start: 09/18/22 12:52:00 EDT, 1 cap, PO, Daily Start Date: 09/18/22 Status: Ordered sodium bicarbonate 650 mg oral [...] penis Confirmed Active Penile cancer Confirmed Active Bleeding ulcer Confirmed Active 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 The patient has consented to this service,and I have advised the patient that this is a billable visit for which they may be subject to a copay. [X ] The patient has initiated this visit after he/she was informed of the availability of telehealth for this medically necessary visit. [ _ ] The provider initiated this visit after explaining the need for this visit to the patient, who has consented to this virtual visit. I am located at my: [X ] Office [ _ ] Home [ _ ] Other: _ The patient is located at: [X ] Home [ _ ] Other: _ This visit was conducted via live audio/video technology: [ _ ] [facility] [ _ ] Zoom This visit was conducted via [X ] Telephone, and was not related to a visit or procedure that occurred within the past 7 days. Telephone Only Visit: Reason for audio only visit was [X ] no internet connection available [ _ ] Other: _. Total time spent communicating with the patient:15 minutes Chief Complaint Pt post partial penectomy History of Present Illness Pt with ongoing urinary incontinence. Was having issues with incontinence before the partial penectomy Pt having some more ongoing yeast infection which was been bothersome. Having ongoing pain with urination Discussed management options. Pt would like to have urinary diversion. Discussed CIC but patient and unable to perform. Discussed SP vs urethral catheterization. Pt would like to undergo SP catheterization. Will arrangefor surgical intervention. Pt happy with plan. Review of Systems Review Of Systems: _ 14 point review of systems completed and negative except as documented in HPI. Assessment/Plan 1) Plan for suprapubic catheter Attestation I spent 5 minutes reviewing the previous documentation and performing independent review of any imaging. I spent 15 minutes in direct patient contact including greater than 50% counselling regarding their medical concerns. Problem List/Past Medical History Ongoing Afib Bleeding ulcer Dermatitis Lichen sclerosus of penis MRSA (methicillin resistant staph aureus) culture positive Penile cancer Squamous cell carcinoma of penis Vertigo Procedure/Surgical History Mohs micrographic surgery (06/16/2022)Shave biopsy (05/28/2022)Shave biopsy (02/19/2022)Colonoscopy (12/13/2020)Esophagogastroduodenoscopy (12/13/2020)Esophagogastroduodenoscopy (08/07/2020)Circumcision (2019)Endoscopy (12/2013)Shoulder replacement (05/2012)Excess skinof abdomen (2006)Gastric bypass operation (2004)Knee replacement Medications acetaminophen(acetaminophen 500 mg oral tablet), 1000 mg= 2 tab, PO, q8h, PRN apixaban(Eliquis 2.5 mg oral tablet), 2.5 mg= 1 tab, PO, bid bifidobacterium-lactobacillus(Probiotic Formula oral capsule), 1 cap, PO, Daily calcitriol(calcitriol 0.25 mcg oral capsule), 0.25 mcg= 1 cap, PO, Daily calcium-vitamin D(calcium-vitamin D extended release), 1 tab, PO, Daily clopidogrel(Plavix), 75 mg, PO, Daily docusate(docusate sodium 100 mg oral capsule), 100 mg= 1 cap, PO, bid, 1 refills gabapentin, 100 mg, PO, bid levothyroxine(levothyroxine 25 mcg (0.025 mg) oral tablet) magnesium oxide, 400 mg, bid metoprolol(Metoprolol Tartrate 50 mg oral tablet), 50 mg= 1 tab, PO, bid multivitamin, 1 tab, PO, Daily multivitamin(Vitamin B Complex), See Instructions nystatin topical(nystatin 100,000 units/g topical cream), See Instructions omeprazole(omeprazole 40 mg oral delayed release capsule), 40 mg= 1 cap, PO, bid oxyBUTYnin(oxyBUTYnin 5 mg/24 hours oral tablet, extended release), 5 mg= 1 tab, PO, Daily, PRN, 4 refills sodium bicarbonate(sodium bicarbonate 650 mg oral tablet), 650 mg= 1 tab, PO, bid tamSULOsin, 0.4 mg, PO, Daily Allergies NKA Social History Smoking Status Former Smoker, quit > 1 yr Recommendations Health Maintenance Pending(in the next year) OverDue Adult Influenza Vaccine due12/04/22and every 1year Due Adult COVID-19 Vaccination due08/02/23Unknown Frequency Adult Social Determinants of Health Screening due08/02/23Unknown Frequency Adult Tdap/Td Vaccine due08/02/23Unknown Frequency Falls Plan of Care due08/02/23Unknown Frequency Lipid Screening due08/02/23Unknown Frequency Medicare Annual Wellness Visit due08/02/23and every 1year Pneumococcal Vaccine Older Adults due08/02/23One-time only Shingles Vaccine due08/02/23One-time only Due In Future Body Mass Index not due until07/16/24and every 366day Satisfied(in the past 1 year) Satisfied Body Mass Index on07/16/23.Satisfied by ALLIE Forrest Sara Electronic Signature on File CC: Cheko Casarez MD, FAAD, [facility] [address] [facility] [address] [place] [address] Electronically Reviewed/Signed by: Oliver Moore M.D. Author Signature Dt/Tm:08/02/2023 05:14 PM Department of Urology [facility] Patient Care team information Care Team Personnel Name: Tati Lozoya Amy E Position: Pharmacist Member Role: Pharmacy - Lifetime Address: Address: [address] [address] [place] Name: MD Hermelindo, Cheko Martinez Position: Physician - Derm MOH Member Role: Lifetime Relationship Address: Address: [address] [place] [id number] [place] Name: DO Hernandez William Price Position: Referring Member Role: Primary Care Provider Address: Address: [facility] [address] [place] [place] [address] Care Team Related Persons Name: CLAY ARIELA Address: home [address] [place] [address] [place] SOLIMAN [phone]
[2023-08-14] MEDS: INSULIN ASPART PER UNIT CHARGE SC SCH (08:55)
[2023-08-14] MEDS: FERROUS SULFATE 325 MG TAB PO SCH (08:59)
[2023-08-14] MEDS: METOPROLOL TARTRATE 50 MG TAB PO SCH (08:59)
[2023-08-14] MEDS: CLOPIDOGREL BISULFATE 75 MG TAB PO SCH (08:59)
[2023-08-14] MEDS: GABAPENTIN 100 MG CAP PO SCH (08:59)
[2023-08-14] MEDS: CALCIUM 600MG + VIT D 400 IU TAB PO SCH (08:59)
[2023-08-14] MEDS: PANTOprazole 40 MG TAB PO SCH (08:59)
[2023-08-14] MEDS: MAGNESIUM SULFATE / D5W 1 GM/100 ML BAG IV ONE (08:59)
[2023-08-14] MEDS: APIXABAN 2.5 MG TAB PO SCH (08:59)
[2023-08-14] MEDS: TAMSULOSIN HCL 0.4 MG CAP PO SCH (08:59)
[2023-08-14] MEDS: CALCITRIOL 0.25 MCG CAPSULE PO SCH (08:59)
--- NOTE | 2023-08-14 09:04 | Electrocardiogram Report ---
Test Reason : Blood Pressure : / mmHG Vent. Rate : 121 BPM Atrial Rate : 000 BPM P-R Int : 000 ms QRS Dur : 078 ms QT Int : 296 ms P-R-T Axes : 000 -10 034 degrees QTc Int : 420 ms Atrial fibrillation with rapid ventricular response with premature ventricular or aberrantly conducte d complexes Abnormal ECG When compared with ECG of 10-JUN-2023 14:13, No significant change was found Confirmed by Josue Pa ([id number]) on 08/14/2023 9:03:39 AM Referred By: REFERRED SELF Confirmed By:Josue Pa
[2023-08-14] MEDS: DAPTOmycin 450 MG in SYRINGE 0 ML IV SCH (09:06)
[2023-08-14] MEDS: MICONAZOLE NITRATE POWDER 85 GM EXT SCH (09:09)
[2023-08-14] MEDS: OXYBUTYNIN CHLORIDE XL 5 MG TABCR PO SCH (10:43)
[2023-08-14] MEDS: LACTATED RINGER'S 500 ML IV ONE (11:35)
--- NOTE | 2023-08-14 14:45 | Hospitalist Progress Note ---
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 On arrival to the emergency department patient met SIRS criteria with source of infection being his urine. UTI Vs. Colonization // Hx of ESBL -Patient with history of recurrent UTIs -Patient met SIRS criteria on arrival to ED, consider urinary source, but may be skin/ soft tissue given groin irritation from urine leaking from urethra -Patient also has history of Enterococcus and ESBL -U/A without nitrites but showing 1+ leukocyte esterase and 2+ bacteria -Urine cultures pending -Blood cultures pending -Will cover with ertapenem given history of ESBL. May narrow coverage depending on urine culture results -Urology consulted: "Patient is experiencing bladder spasms and leakage via urethra. Unfortunately, we are limited with options at this point. Not unreasonable to try Ditropan 5 mg XR with the understanding that it could cause dry mouth, dry eyes, constipation and some confusion." -Start Ditropan for bladder spasms, reevaluate in AM -Placed ostomy bag over urethra to prevent further skin irritation from urine, may need to place sadler in urethra if leaking around ostomy bag. Cellulitis -Scrotum and perineal area erythematous and with clear demarcation indicative of cellulitis -Add daptomycin for MRSA coverage for now Fall // Hx Ambulatory dysfunction -Patient with mechanical fall at home -Patient not currently experiencing any pain -Patient's states that she does not think he hit his head or lost consciousness -Patient's referring patient has been gradually weakening at home -Head CT ordered and pending -PT and OT ordered Elevated Troponins - elevated troponin from ~25 to ~46, without chest pain or SOB - Possible this may be related to patient's history of kidney disease and SIRS - Repeat troponin, plateauted at 61.0, no longer trending Hx CKD-IV -Follows nephrology as an outpatient -Creatinine baseline of 2.2-2.5 as per chart review -ED labs showing creatinine of 2.13 which is close to patient's baseline -Continue to monitor a.m. labs Chronic Anemia -Per chart review, patient's hemoglobin seems to range between 9 and 11 -Patient currently asymptomatic -Continue home iron -Monitor a.m. labs A-fib - Currently in a-fib without RVR - Continue home Metoprolol and Eliquis GERD - Continue Protonix DM-2 - Last Hgb A1c from 05/2023 was 5.7% - Controlled with diet at home - Will order SSI Hx TIA in 2022 - Patient on plavix chronically but cannot recall why. cannot recall either. - Per chart review, patient with hx of stroke-like symptoms and started on Plavix - Will continue Dispo: Admit to Med/Tele Fluids: LR @ 100 cc/hr Diet: HH, DM-2 VTE ppx: Continue home Eliquis GI ppx: Protonix Admission and Anticipated Discharge Date Admission Date: August 13, 2023 Supervising Physician Co-Signing Physician Notes Attending Physician Supervision Note: I independently interviewed and examined the patient and verified the medina history and physical, reviewed labs and image studies and agree with findings and care plan noted above. Subjective Patient seen at bedside this morning. No acute events reported overnight. Patient having intermittent bouts of pain associated with his penectomy site. These typically last upwards to about 30 seconds and occur every 5 minutes or so. Patient reports that he has been having chills and shaking throughout the night. He was able to get decent sleep last night. No nausea or vomiting but does have decreased appetite. Denies any hematuria or changes in his urine. No other complaints this morning. Review of Systems Review of Systems: All systems reviewed & are unremarkable except as noted in HPI & below Physical Exam Constitutional: well developed and well nourished Eyes: + anicteric sclerae Neck: trachea midline, no thyromegaly Respiratory: normal respiratory effort, lungs clear to auscultation Cardiovascular: Rate/Rhythm: regular rate and + irregularly irregular Gastrointestinal (Abdomen): normal bowel sounds, soft, nontender, no hepatosplenomegaly Musculoskeletal: Head/Neck/Chest: normocephalic and head atraumatic Skin: no rashes, warm and dry Neurologic: moves all extremities Psychiatric: Orientation: alert, oriented to person, oriented to place and cooperative Genitourinary: Penectomy with clear urine coming from urethra. Suprapubic catheter in place dr mariya toro urine. Groin and perineal erythema noted. Results & Data Results & Data Vital Signs (Past 12 Hours) Vital Signs Temp Pulse Pulse Resp BP Pulse Ox O2 Del Method 08/14/23 11:30 37 C 116 H 22 133/80 97 Room Air 08/14/23 09:00 Room Air 08/14/23 08:18 37.0 C 101 H 18 133/80 97 Room Air 08/14/23 07:00 84 08/14/23 02:59 37.0 C 101 H 18 133/80 97 Room Air (3) Hypothyroidism Hypothyroidism type: acquired Qualified Code(s): E03.9 - Hypothyroidism, unspecified (4) Atrial fibrillation Atrial fibrillation type: unspecified Qualified Code(s): I48.91 - Unspecified atrial fibrillation (5) GERD (gastroesophageal reflux disease) Esophagitis presence: esophagitis presence not specified Qualified Code(s): K21.9 - Gastro-esophageal reflux disease without esophagitis (8) Anemia Anemia type: unspecified type Qualified Code(s): D64.9 - Anemia, unspecified (10) Dementia Dementia behavioral disturbance: without behavioral disturbance Dementia type: unspecified type Qualified Code(s): F03.90 - Unspecified dementia without behavioral disturbance
--- NOTE | 2023-08-14 21:32 | Billing Data ---
Date of Service August 14, 2023 Coding Level of Care Code 83831 INT INP/OBS CARE
[2023-08-15 04:53] LABS: Mean Corpuscular Hgb Conc 32.3 g/dL (32.0-36.0); Mean Platelet Volume 11.3 fL (9.4-12.4); Platelet Count 120 K/uL (130-400); RDW Coefficient of Variation 13.7 % (11.5-14.5); RDW Standard Deviation 48.4 fL (36.4-46.3); Red Blood Count 3.23 M/uL (4.70-6.10); White Blood Count 4.93 K/ul (4.8-10.8)
[2023-08-15 05:09] LABS: Albumin Level 2.9 gm/dl (3.4-5.0); BUN Creatinine Ratio 12.3 (10-20); Bilirubin,Total 0.3 mg/dl (0.2-1.0); Calcium 8.2 mg/dl (8.6-10.3); Creatinine Clr Calc Pharmacy 32.2 ml/min; Est GFR (African American) 36.6 ml/min; Est GFR (Non-African American) 31.6 ml/min; Globulin 2.9 gm/dl (2.5-4.0); Potassium 4.5 mmol/L (3.5-5.1); Total Protein 5.8 gm/dl (6.0-8.3)
[2023-08-15 05:22] LABS: Troponin I High Sensitivity 96.1 pg/ml (0-20)
[2023-08-15] MEDS: LACTATED RINGER'S 500 ML IV ONE (05:57)
--- NOTE | 2023-08-15 07:48 | Electrocardiogram Report ---
Test Reason : Blood Pressure : / mmHG Vent. Rate : 091 BPM Atrial Rate : 097 BPM P-R Int : 000 ms QRS Dur : 080 ms QT Int : 352 ms P-R-T Axes : 000 -18 001 degrees QTc Int : 432 ms Atrial fibrillation Abnormal ECG When compared with ECG of 13-AUG-2023 19:01, HR has decreased by 30 bpm Otherwise no significant change Confirmed by Josue aP ([id number]) on 08/15/2023 7:48:23 AM Referred By: REFERRED SELF Confirmed By:Josue Pa
[2023-08-15] MEDS: ceFAZolin 2000MG 2,000 MG/15 ML SYR IV SCH (14:54)
--- NOTE | 2023-08-15 14:58 | Hospitalist Progress Note ---
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 On arrival to the emergency department patient met SIRS criteria with source of infection being his urine. SIRS/UTI Vs. Colonization // Hx of ESBL -Patient with history of recurrent UTIs -Patient met SIRS criteria on arrival to ED, consider urinary source, but may be skin/ soft tissue given groin irritation from urine leaking from urethra -Patient also has history of Enterococcus and ESBL -U/A without nitrites but showing 1+ leukocyte esterase and 2+ bacteria -Urine cultures demonstrating E. coli sensitive to everything except for Bactrim -Blood cultures negative after 24 hours -Discontinue ertapenem and switch to cefazolin -Urology consulted: "Patient is experiencing bladder spasms and leakage via urethra. Unfortunately, we are limited with options at this point. Not unreasonable to try Ditropan 5 mg XR with the understanding that it could cause dry mouth, dry eyes, constipation and some confusion." -Start Ditropan for bladder spasms, he seemed to have improved. -Placed ostomy bag over urethra to prevent further skin irritation from urine, continue use as it seems to be keeping groin dry. Cellulitis -Scrotum and perineal area erythematous and with clear demarcation indicative of cellulitis -Switch daptomycin to cefazolin to cover for complicated UTI and nonpurulent cellulitis. -Recommend full 7-day course -Continue miconazole powder twice daily until resolution to cover for fungus Fall // Hx Ambulatory dysfunction/ AMS -Patient with mechanical fall at home -Patient not currently experiencing any pain -Patient's states that she does not think he hit his head or lost consciousness -Patient's referring patient has been gradually weakening at home -Head CT without abnormality -PT and OT ordered, awaiting recommendations -Patient lives with and unsure if she is able to care for him in current state, await PT and OT evals and likely will recommend at least SNF placement. Elevated Troponins - elevated troponin from ~25 to ~46, without chest pain or SOB - Possible this may be related to patient's history of kidney disease and SIRS - Repeat troponin, plateauted, no longer trending Hx CKD-IV -Follows nephrology as an outpatient -Creatinine baseline of 2.2-2.5 as per chart review -ED labs showing creatinine of 2.13 which is close to patient's baseline -Continue to monitor a.m. labs Chronic Anemia -Per chart review, patient's hemoglobin seems to range between 9 and 11 -Patient currently asymptomatic -Continue home iron -Monitor a.m. labs A-fib - Currently in a-fib with occasional RVR into the low 100s, asymptomatic - Continue home Metoprolol and Eliquis GERD - Continue Protonix DM-2 - Last Hgb A1c from 05/2023 was 5.7% - Controlled with diet at home -Continue basal bolus with sliding scale insulin Hx TIA in 2022 - Patient on plavix chronically but cannot recall why. cannot recall either. - Per chart review, patient with hx of stroke-like symptoms and started on Plavix - Will continue Dispo: Med/Tele Diet: HH, DM-2 VTE ppx: Continue home Eliquis GI ppx: Protonix Admission and Anticipated Discharge Date Admission Date: August 13, 2023 Supervising Physician Co-Signing Physician Notes Attending Physician Supervision Note: I independently interviewed and examined the patient and verified the medina history and physical, reviewed labs and image studies and agree with findings and care plan noted above. Subjective Patient seen at bedside this morning. No acute events reported overnight. Seems somewhat pleasantly confused this morning which is baseline to yesterday. He is easily redirectable and follows instruction. Pain seems to have improved from yesterday as he is not having periodic episodes of lower abdominal pain/bladder spasms. No nausea or vomiting. Eating and drinking without difficulty. No new complaints this morning. Review of Systems Review of Systems: As per HPI Physical Exam Constitutional: well developed and well nourished Eyes: + anicteric sclerae Neck: trachea midline, no thyromegaly Respiratory: normal respiratory effort, lungs clear to auscultation Cardiovascular: RRR, no murmur, no edema Rate/Rhythm: regular rate and + irregularly irregular Gastrointestinal (Abdomen): normal bowel sounds, soft, nontender, no hepatosplenomegaly Musculoskeletal: Head/Neck/Chest: normocephalic and head atraumatic Skin: Improved erythema in groin compared to yesterday. Neurologic: moves all extremities Psychiatric: Orientation: alert, oriented to person, oriented to place and cooperative Results & Data Results & Data Vital Signs (Past 12 Hours) Vital Signs Temp Pulse Pulse Resp BP Pulse Ox O2 Del Method 08/15/23 11:48 36.7 C 110 H 18 137/97 94 Room Air 08/15/23 07:30 121 H 08/15/23 07:15 36.8 C 109 H 18 143/90 H 94 Room Air 08/15/23 05:07 36.5 C 118 H 20 138/84 94 Room Air (3) Hypothyroidism Hypothyroidism type: acquired Qualified Code(s): E03.9 - Hypothyroidism, unspecified (4) Atrial fibrillation Atrial fibrillation type: unspecified Qualified Code(s): I48.91 - Unspecified atrial fibrillation (5) GERD (gastroesophageal reflux disease) Esophagitis presence: esophagitis presence not specified Qualified Code(s): K21.9 - Gastro-esophageal reflux disease without esophagitis (8) Anemia Anemia type: unspecified type Qualified Code(s): D64.9 - Anemia, unspecified (10) Dementia Dementia behavioral disturbance: without behavioral disturbance Dementia type: unspecified type Qualified Code(s): F03.90 - Unspecified dementia without behavioral disturbance
[2023-08-15] MEDS: MELATONIN 3 MG TAB PO PRN (19:51)
[2023-08-16 06:33] LABS: Hematocrit (blood only) 35.1 % (42.0-52.0); Hemoglobin 11.2 g/dl (14.0-18.0); Mean Corpuscular Hemoglobin 30.4 pg (25.0-34.0); Mean Corpuscular Hgb Conc 31.9 g/dL (32.0-36.0); Mean Corpuscular Volume 95.1 fL (80.0-100.0); Mean Platelet Volume 11.6 fL (9.4-12.4); Platelet Count 123 K/uL (130-400); RDW Coefficient of Variation 13.5 % (11.5-14.5); RDW Standard Deviation 47.4 fL (36.4-46.3); Red Blood Count 3.69 M/uL (4.70-6.10); White Blood Count 7.26 K/ul (4.8-10.8)
[2023-08-16 06:57] LABS: BUN Creatinine Ratio 11.5 (10-20); Calcium 8.5 mg/dl (8.6-10.3); Creatinine Clr Calc Pharmacy 33.1 ml/min; Est GFR (African American) 37.9 ml/min; Est GFR (Non-African American) 32.7 ml/min; Potassium 4.2 mmol/L (3.5-5.1)
--- NOTE | 2023-08-16 07:19 | Hospitalist Progress Note ---
Date of Service August 16, 2023 Assessment & Plan (1) Wound of groin: Plan: Pt is an 88 yo male with PMHx of Afib (on eliquis), SCC of the penis resulting in partial penectomy and urinary leakage, CKD-III, DM-2 that is diet-controlled, GERD, BPH, and [place] [facility] [place] who comes to the ED by ambulance due to a fall. On arrival to the emergency department patient met SIRS criteria with source of infection being his urine. UTI vs. colonization - pt with history of recurrent UTIs - pt met SIRS criteria on arrival to ED with urinary source most likely, but may also be skin/soft tissue given groin irritation from urine leaking from urethra - pt w/ history of Enterococcus and ESBL - U/A without nitrites but showing 1+ leukocyte esterase and 2+ bacteria; urine cx grew E. coli sensitive to everything except for Bactrim - blood cx negative after 48 hrs - continue cefazolin (day 2); will plan for 7 day course - urology consulted; consider possible trial of oxybutynin for bladder spasms; o nce started, medication seemed to improve spasms- will continue - continue ostomy bag over urethra to prevent further skin irritation from urine Cellulitis - Scrotum and perineal area erythematous and with clear demarcation indicative of cellulitis - continue cefazolin to cover for complicated UTI and nonpurulent cellulitis; plan for 7 day course - continue miconazole powder twice daily until resolution to cover for fungus Fall, Hx Ambulatory dysfunction - pt with mechanical fall at home - pt's does not think he hit his head or lost consciousness; however, she does endorse gradual worsening in pt's weakness at home - Head CT negative - pt lives with as his main caregiver and she is unsure if she is able to care for him in current state -PT and OT ordered; recommending inpatient rehab Elevated troponin - elevated troponin from ~25 to ~46, without chest pain or SOB - possible this may be related to patient's history of kidney disease and SIRS - has since peaked and no longer trending Hx of CKD IV - follows with nephrology as an outpatient - Cr baseline of 2.2-2.5 as per chart review - Cr remains at baseline Chronic anemia - per chart review, Hgb seems to range between 9 and 11 - pt currently asymptomatic - continue home iron Afib - pt remains in afib with occasional RVR into the low 100s- asymptomatic - continue home metoprolol 50 mg BID and eliquis 2.5 mg BID GERD - continue protonix 40 mg BID DM2 - last Hgb A1c from 05/2023 was 5.7% - controlled with diet at home - continue basal bolus with sliding scale insulin Hx of TIA in 2022 - per chart review, patient with hx of stroke-like symptoms - continue plavix 75 mg daily Dispo: med/tele; pending rehab placement Diet: HH, DM-2 VTE ppx: continue home Eliquis Code: full (2) SCC (squamous cell carcinoma), penis: (3) Hypothyroidism: (4) Atrial fibrillation: (5) GERD (gastroesophageal reflux disease): (6) Stage 3b chronic kidney disease: (7) Diabetes mellitus, type 2: (8) Anemia: (9) Ambulatory dysfunction: (10) Dementia: (11) History of infection due to ESBL Escherichia coli: (12) Hypomagnesemia: (13) Urinary leakage: (14) Peripheral neuropathy: (15) Cellulitis of groin: Admission and Anticipated Discharge Date Admission Date: August 13, 2023 Supervising Physician Co-Signing Physician Notes I personally examined the patient and verified all [facility] points of history and exam, discussed case, and agree with decision making with Dr Rodriguez Seems easily confused this evening. Awaiting rehab. No significant complaints. Vitals noted, in general he is in no distress, restless in bed with his blankets skilled nursing off. Seems to try to discuss with going on with his who was not in the room. Apparent deliriumprobably multifactorial metabolic encephalopathy related to infection and hospitalization. Reassurance, reorientation as possible, for rehab placement Infectioncellulitis +/- concomitant UTIseems to be improving. For rehab placement once approved/bed available. Otherwise as above. anticoagulated Subjective Pt is an 88 yo male with PMHx of Afib (on eliquis), SCC of the penis resulting in partial penectomy and urinary leakage, CKD-III, DM-2 that is diet-controlled, GERD, BPH, and [place] [facility] [place] who comes to the ED by ambulance due to a fall. On arrival to the emergency department patient met SIRS criteria with source of infection being his urine. Pt doing well this morning. He notes intermittent chest pain that is chronic for him. No other concerns or complaints. Review of Systems Review of Systems: As per HPI Physical Exam Physical Exam: Constitutional: well appearing, no acute distress HEENT: normocephalic, no conjunctival injection CV: irregularly irregular, normal rate, no murmur, no LE edema Respiratory: CTA bilaterally. No rhonchi, wheezes, or crackles. No increased work of breathing MSK: no gross deformities noted Neuro: alert, easily redirectable but slightly confused Psych: mood and affect congruent Results & Data Results & Data Vital Signs (Past 12 Hours) Vital Signs Temp Pulse Pulse Resp BP Pulse Ox O2 Del Method 08/16/23 07:16 125 H 08/16/23 03:27 36.8 C 120 H 22 150/95 H 93 Room Air 08/15/23 23:17 36.6 C 108 H 18 152/90 H 94 Room Air 08/15/23 23:01 121 H 08/15/23 21:38 Room Air Resident Activity Tracking Resident Involvement: Resident Care Provided Care Provided: Adult Hospital Medicine (3) Hypothyroidism Hypothyroidism type: acquired Qualified Code(s): E03.9 - Hypothyroidism, unspecified (4) Atrial fibrillation Atrial fibrillation type: unspecified Qualified Code(s): I48.91 - Unspecified atrial fibrillation (5) GERD (gastroesophageal reflux disease) Esophagitis presence: esophagitis presence not specified Qualified Code(s): K21.9 - Gastro-esophageal reflux disease without esophagitis (8) Anemia Anemia type: unspecified type Qualified Code(s): D64.9 - Anemia, unspecified (10) Dementia Dementia behavioral disturbance: without behavioral disturbance Dementia type: unspecified type Qualified Code(s): F03.90 - Unspecified dementia without behavioral disturbance
--- NOTE | 2023-08-16 18:11 | Billing Data ---
Date of Service August 16, 2023 Coding Level of Care Code 00871 SUB INP/OBS CARE
[2023-08-17 05:37] LABS: Hematocrit (blood only) 30.9 % (42.0-52.0); Hemoglobin 9.9 g/dl (14.0-18.0); Mean Corpuscular Hemoglobin 30.6 pg (25.0-34.0); Mean Corpuscular Volume 95.4 fL (80.0-100.0); Mean Platelet Volume 11.6 fL (9.4-12.4); Platelet Count 118 K/uL (130-400); RDW Coefficient of Variation 13.5 % (11.5-14.5); RDW Standard Deviation 47.5 fL (36.4-46.3); Red Blood Count 3.24 M/uL (4.70-6.10); White Blood Count 4.57 K/ul (4.8-10.8)
[2023-08-17 05:53] LABS: BUN Creatinine Ratio 12.6 (10-20); Calcium 8.1 mg/dl (8.6-10.3); Creatinine Clr Calc Pharmacy 31.5 ml/min; Est GFR (African American) 35.7 ml/min; Est GFR (Non-African American) 30.8 ml/min
--- NOTE | 2023-08-17 07:00 | Hospitalist Progress Note ---
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 On arrival to the emergency department patient met SIRS criteria with source of infection being his urine. UTI vs. colonization - pt with history of recurrent UTIs - pt met SIRS criteria on arrival to ED with urinary source most likely, but may also be skin/soft tissue given groin irritation from urine leaking from urethra - pt w/ history of Enterococcus and ESBL - UA without nitrites but showing 1+ leukocyte esterase and 2+ bacteria; urine cx grew E. coli sensitive to everything except for Bactrim - blood cx negative after 48 hrs - continue cefazolin (day 3); will plan for 7 day course - urology consulted; consider possible trial of oxybutynin for bladder spasms; once started, medication seemed to improve spasms- will continue 5 mg daily - continue ostomy bag over urethra to prevent further skin irritation from urine Cellulitis - Scrotum and perineal area erythematous and with clear demarcation indicative of cellulitis - continue cefazolin to cover for complicated UTI and nonpurulent cellulitis; plan for 7 day course - continue miconazole powder twice daily until resolution to cover for fungus Fall, Hx ambulatory dysfunction - pt with mechanical fall at home - pt's does not think he hit his head or lost consciousness; however, she does endorse gradual worsening in pt's weakness at home - Head CT negative - pt lives with as his main caregiver and she is unsure if she is able to care for him in current state -PT and OT ordered; recommending inpatient rehab; rehab pending Elevated troponin - elevated troponin from ~25 to ~46, without chest pain or SOB - possible this may be related to patient's history of kidney disease and SIRS - has since peaked and no longer trending Hx of CKD IV - follows with nephrology as an outpatient - Cr baseline of 2.2-2.5 as per chart review - Cr remains at baseline Chronic anemia - per chart review, Hgb seems to range between 9 and 11 - pt currently asymptomatic - continue home iron Afib - pt remains in afib with occasional RVR into the low 100s- asymptomatic - continue home metoprolol 50 mg BID and eliquis 2.5 mg BID GERD - continue protonix 40 mg BID DM2 - last Hgb A1c from 05/2023 was 5.7% - controlled with diet at home - continue basal bolus with sliding scale insulin Hx of TIA in 2022 - per chart review, patient with hx of stroke-like symptoms - continue plavix 75 mg daily Dispo: med/tele; pending rehab placement Diet: HH, DM-2 VTE ppx: continue home Eliquis Code: full (2) SCC (squamous cell carcinoma), penis: (3) Hypothyroidism: (4) Atrial fibrillation: (5) GERD (gastroesophageal reflux disease): (6) Stage 3b chronic kidney disease: (7) Diabetes mellitus, type 2: (8) Anemia: (9) Ambulatory dysfunction: (10) Dementia: (11) History of infection due to ESBL Escherichia coli: (12) Hypomagnesemia: (13) Urinary leakage: (14) Peripheral neuropathy: (15) Cellulitis of groin: Admission and Anticipated Discharge Date Admission Date: August 13, 2023 Supervising Physician Co-Signing Physician Notes I personally examined the patient and verified all [facility] points of history and exam, discussed case, and agree with decision making with Dr Rodriguez again confused. No significant complaints. Vitals noted, in general he is in no distress, restless Breathing unlabored no accessory muscle use good effort. Skin without rashes pallor or icterus. Apparent deliriumprobably multifactorial metabolic encephalopathy related to infection and hospitalization. Reassurance, reorientation as possible, for rehab placement Infectioncellulitis +/- concomitant UTI (Possible suprapubic catheter UTI with possible sepsis present on admission)seems to be improving. mild myocardial demand ischemiastable. No specific treatment needed permanent atrial fibrillationrate controlled, anticoagulated For rehab placement once approved/bed available. Otherwise as above. 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 On arrival to the emergency department patient met SIRS criteria with source of infection being his urine. Pt tearful this morning. He is stating that he wants to call his but does not have a phone (phone found and given to pt). He also states that if things are going to be like this he would rather be "up there." (referring to ). After discussion and asking if he had thoughts to kill himself, he denied and said "not anymore." Pt does not appear to be a danger to himself at this time as his delirium waxes and wanes and he has no thoughts to intentional harm himself. Once I left the room and passed him later, he was on the phone and seemed in better spirits. Review of Systems Review of Systems: As per HPI Physical Exam Physical Exam: Constitutional: well appearing, mild distress HEENT: normocephalic, no conjunctival injection CV: clinically well perfused Respiratory: no increased work of breathing MSK: no gross deformities noted Skin: warm, dry, no rashes Neuro: alert and oriented Psych: mood and affect congruent but labile; tearful throughout our conversation Results & Data Results & Data Vital Signs (Past 12 Hours) Vital Signs Temp Pulse Resp BP Pulse Ox O2 Del Method 08/17/23 03:14 36.6 C 86 20 131/81 94 Room Air 08/17/23 00:13 36.9 C 106 H 20 120/76 94 Room Air 08/16/23 21:39 36.9 C 20 08/16/23 21:29 95 H 08/16/23 19:50 36.2 C L 111 H 22 114/77 93 Room Air Resident Activity Tracking Resident Involvement: Resident Care Provided Care Provided: Adult Hospital Medicine (3) Hypothyroidism Hypothyroidism type: acquired Qualified Code(s): E03.9 - Hypothyroidism, unspecified (4) Atrial fibrillation Atrial fibrillation type: unspecified Qualified Code(s): I48.91 - Unspecified atrial fibrillation (5) GERD (gastroesophageal reflux disease) Esophagitis presence: esophagitis presence not specified Qualified Code(s): K21.9 - Gastro-esophageal reflux disease without esophagitis (8) Anemia Anemia type: unspecified type Qualified Code(s): D64.9 - Anemia, unspecified (10) Dementia Dementia behavioral disturbance: without behavioral disturbance Dementia type: unspecified type Qualified Code(s): F03.90 - Unspecified dementia without behavioral disturbance
[2023-08-17] MEDS: ceFAZolin 2000MG 2,000 MG/15 ML SYR IV SCH (11:32)
[2023-08-17] MEDS: CALCIUM CARBONATE 500 MG CHEWABLE TAB PO PRN (17:14)
--- NOTE | 2023-08-17 18:36 | Billing Data ---
Date of Service August 17, 2023 Coding Level of Care Code 20398 SUB INP/OBS CARE
[2023-08-18 03:50] LABS: Hematocrit (blood only) 28.9 % (42.0-52.0); Hemoglobin 9.5 g/dl (14.0-18.0); Mean Corpuscular Hemoglobin 30.9 pg (25.0-34.0); Mean Corpuscular Hgb Conc 32.9 g/dL (32.0-36.0); Mean Corpuscular Volume 94.1 fL (80.0-100.0); Mean Platelet Volume 12.2 fL (9.4-12.4); Platelet Count 137 K/uL (130-400); RDW Coefficient of Variation 13.2 % (11.5-14.5); RDW Standard Deviation 45.3 fL (36.4-46.3); Red Blood Count 3.07 M/uL (4.70-6.10); White Blood Count 5.07 K/ul (4.8-10.8)
[2023-08-18 03:52] LABS: BUN Creatinine Ratio 12.9 (10-20); Calcium 7.9 mg/dl (8.6-10.3); Creatinine Clr Calc Pharmacy 28.4 ml/min; Est GFR (African American) 31.8 ml/min; Est GFR (Non-African American) 27.5 ml/min; Potassium 4.1 mmol/L (3.5-5.1)
--- NOTE | 2023-08-18 11:03 | Discharge Summary ---
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 Patient was currently a poor historian. His was contacted (Esperanza Watsno) and she refers that they have returned this morning from [facility] where patient had a suprapubic catheter placed on . Upon arrival to the home patient was walking around and "acting a little weird ". Patient's states that he has history of recurrent urinary tract infections and infections of the skin in his suprapubic region due to accumulation/stagnant urine from his urinary leakage. In the afternoon/evening, patient was lying in his bed and moved to the side of his bed and was so far to the edge that he fell off. Patient's states that she does not think he hit his head or lost consciousness, but when attempting to get patient up she was not able to. She tried to call their neighbor to help her get patient up but they were not home, so she called an ambulance which brought patient up and took him to the emergency department. ED Course: On arrival to the emergency department, patient was febrile (38.4 C), tachycardic with a heart rate of 118, and stable blood pressures. CBC relatively white blood cell count above patient's baseline with neutrophilic predominance and elevated lactate 2.8. BioFire was ordered which was ultimately negative. Due to concerns of possible infection, patient was given a dose of IV ceftriaxone and given a normal saline bolus. Labs/Imaging: CBC with relative leukocytosis (WBC elevated from patient;s baseline) with neutrophilic predominance, mild anemia with hemoglobin of 11.4, and platelets of 173. CMP with mild hyponatremia (135) and decreased bicarb (17), creatinine elevated from patient's baseline (2.13), glucose of 141, and hypomagnesemia (1.6). Lactate on arrival was elevated at 2.8 which decreased to 1.3 with IV fluids. Troponins elevated to 25.8 which increased to 46.8 after 2 hours. Pro-Vu elevated at 1.34. Urinalysis with 3+ protein falling line plus leukocyte esterase, and 2+ bacteria, negative nitrites. Urine cultures pending. Blood cultures pending. Head CT ordered and not done yet. Admission Exam Per Admitting Provider GENERAL: awake and alert, oriented to person and state, tired-appearing, NAD HEAD:NC, minor bruising on left scalp EYES: EOM intact, YAIR THROAT: normal to visual exam CHEST: symmetric chest expansions with respirations, no visible deformities CARDIO: irregular rhythm, no r/m/g PULMONARY: CTA, normal respiratory effort, no respiratory distress GI: soft, non-tender, non-distended : suprapubic catheter noted, collecting bag with clear urine, s/p penectomy, surrounding skin erythematous, warm and tender to palpation EXTREMITIES: no swelling in bilateral LE, no calf tenderness bilaterally Principal Diagnosis complicated UTI, fall, ambulatory dysfunction Discharge Exam Constitutional: well appearing, no acute distress HEENT: normocephalic, no conjunctival injection CV: clinically well perfused Respiratory: no increased work of breathing MSK: no gross deformities noted Skin: warm, dry Neuro: alert, no FND noted Discharge Data Allergies Allergy/AdvReac Type Severity Reaction Status Date / Time iron [From Venofer] AdvReac Mild warm Verified 08/18/23 18:19 sensation/flushing, discomfort in arm in which it was i Consultations 08/13/23 21:30 ED Decision to Admit Stat 08/14/23 08:10 Consult Urology Routine Ordered Studies 08/13/23 23:16 CT head/brain wo con Urgent IMPRESSION: No acute intracranial hemorrhage, midline shift, or mass effect. 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 On arrival to the emergency department patient met SIRS criteria with source of infection being his urine. UTI vs. colonization - pt with history of recurrent UTIs - pt met SIRS criteria on arrival to ED with urinary source most likely, but may also be skin/soft tissue given groin irritation from urine leaking from urethra - pt w/ history of Enterococcus and ESBL - UA without nitrites but showing 1+ leukocyte esterase and 2+ bacteria; urine cx grew E. coli sensitive to everything except for Bactrim - blood cx negative after 48 hrs - s/p 4 days of ABX (cefazolin x3, ceftriaxone x1); continue tx with oral keflex q8hr x3 days for total 7 day course - urology consulted; trial of oxybutynin for bladder spasms; once started, medication seemed to improve spasms- will continue 5 mg daily - may continue ostomy bag over urethra to prevent further skin irritation from urine Cellulitis - scrotum and perineal area erythematous and with clear demarcation indicative of cellulitis - continue ABX for complicated UTI and nonpurulent cellulitis; plan for 7 day course as above - continue miconazole powder twice daily until resolution of rash to cover for fungus Fall, Hx ambulatory dysfunction - pt with mechanical fall at home - pt's does not think he hit his head or lost consciousness; however, she does endorse gradual worsening in pt's weakness at home - Head CT negative - pt previously lived with as his main caregiver and she is unable to take care of him at his current state -PT and OT ordered; recommending rehab; d/c to [facility] Elevated troponin - elevated troponin from ~25 to ~46, without chest pain or SOB - possible this may be related to patient's history of kidney disease and SIRS - has since peaked and no longer trending - EKG w/o significant changes/ischemic signs Hx of CKD IV - follows with nephrology as an outpatient - Cr baseline of 2.2-2.5 as per chart review - Cr remained at baseline Chronic anemia - per chart review, Hgb seems to range between 9 and 11 - pt asymptomatic throughout hospitalization - continue home iron Afib - pt remains in afib with occasional RVR into the low 100s- asymptomatic - continue home metoprolol 50 mg BID and eliquis 2.5 mg BID GERD - continue protonix 40 mg BID DM2 - last Hgb A1c from 05/2023 was 5.7% - controlled with diet at home Hx of TIA in 2022 - per chart review, patient with hx of stroke-like symptoms - continue plavix 75 mg daily Dispo: d/c to [facility] Diet: HH, DM-2 VTE ppx: continue home Eliquis Code: full (2) SCC (squamous cell carcinoma), penis: (3) Hypothyroidism: (4) Atrial fibrillation: (5) GERD (gastroesophageal reflux disease): (6) Stage 3b chronic kidney disease: (7) Diabetes mellitus, type 2: (8) Anemia: (9) Ambulatory dysfunction: (10) Dementia: (11) History of infection due to ESBL Escherichia coli: (12) Hypomagnesemia: (13) Urinary leakage: (14) Peripheral neuropathy: (15) Cellulitis of groin: Total Time Total Time Spent Total Time Spent (In Minutes): <30 Discharge Plan Discharge Items Patient Disposition: Transfer Halfway Fac Reason For Visit: FALL Discharge Diagnosis: fall, ambulatory dysfunction, complicated UTI Activity: Per Instructions section Non-emergency contact: Primary Care Provider Call non-emergency contact if: you have any medication questions and your symptoms worsen Follow-up/Referrals: Pablo Hernandez DO [Primary Care Provider] - Diet: Carb Consistent or DM2 and Heart Healthy Addtl Attending Provider Instructions: Pt is an 88 yo male with PMHx of afib (on eliquis), 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 On arrival to the emergency department patient met SIRS criteria with source of infection being his urine. UTI vs. colonization - pt with history of recurrent UTIs - pt met SIRS criteria on arrival to ED with urinary source most likely, but may also be skin/soft tissue given groin irritation from urine leaking from urethra - pt w/ history of Enterococcus and ESBL - UA without nitrites but showing 1+ leukocyte esterase and 2+ bacteria; urine cx grew E. coli sensitive to everything except for Bactrim - blood cx negative after 48 hrs - s/p 4 days of ABX (cefazolin x3, ceftriaxone x1); continue tx with oral keflex x3 days for total 7 day course - urology consulted; trial of oxybutynin for bladder spasms; once started, medication seemed to improve spasms- will continue 5 mg daily - may continue ostomy bag over urethra to prevent further skin irritation from urine Cellulitis - scrotum and perineal area erythematous and with clear demarcation indicative of cellulitis - continue ABX for complicated UTI and nonpurulent cellulitis; plan for 7 day course as above - continue miconazole powder twice daily until resolution of rash to cover for fungus Fall, Hx ambulatory dysfunction - pt with mechanical fall at home - pt's does not think he hit his head or lost consciousness; however, she does endorse gradual worsening in pt's weakness at home - Head CT negative - pt previously lived with as his main caregiver and she is unable to take care of him at his current state -PT and OT ordered; recommending rehab; d/c to [facility] Elevated troponin - elevated troponin from ~25 to ~46, without chest pain or SOB - possible this may be related to patient's history of kidney disease and SIRS - has since peaked and no longer trending - EKG w/o significant changes/ischemic signs Hx of CKD IV - follows with nephrology as an outpatient - Cr baseline of 2.2-2.5 as per chart review - Cr remained at baseline Chronic anemia - per chart review, Hgb seems to range between 9 and 11 - pt asymptomatic throughout hospitalization - continue home iron Afib - pt remains in afib with occasional RVR into the low 100s- asymptomatic - continue home metoprolol 50 mg BID and eliquis 2.5 mg BID GERD - continue protonix 40 mg BID DM2 - last Hgb A1c from 05/2023 was 5.7% - controlled with diet at home Hx of TIA in 2022 - per chart review, patient with hx of stroke-like symptoms - continue plavix 75 mg daily Dispo: d/c to [facility] Diet: HH, DM-2 VTE ppx: continue home Eliquis Code: full Pending Studies at Discharge: No Stand-Alone Forms: My [facility] Skilled Items Patient informed of condition?: Yes DNR: No Discharge Level of Care: Skilled Communicable Disease: No Discharge Prognosis: Stable Lines: None Urinary Catheter: Yes Medications and DC Order Prescriptions: New miconazole nitrate [Desenex] 2 % Powder 1 applic EXT BID Qty: 85 1RF oxybutynin chloride 5 mg Tablet Extended Release 24hr 5 mg PO QAM Qty: 30 1RF cephalexin 500 mg capsule 500 mg PO Q8H 4 Days Qty: 12 0RF Rx Instructions: START 08/18/23 FOR 4 DAYS PER D/C FROM [facility] Continued calcitriol 0.25 mcg capsule 0.25 mcg PO DAILY Qty: 90 3RF magnesium oxide 400 mg (241.3 mg magnesium) tablet 400 mg PO BID Qty: 180 3RF Eliquis 2.5 mg tablet 2.5 mg PO BID Qty: 180 3RF clopidogrel [Plavix] 75 mg tablet 75 mg PO DAILY Qty: 90 3RF tamsulosin 0.4 mg capsule 0.4 mg PO DAILY Qty: 90 3RF omeprazole 40 mg capsule,delayed release(DR/EC) 40 mg PO BID 90 Days Qty: 180 3RF gabapentin 100 mg capsule 100 mg PO BID Qty: 180 3RF sodium bicarbonate 650 mg tablet 650 mg PO BID Qty: 180 3RF ferrous sulfate 325 mg (65 mg iron) tablet,delayed release (DR/EC) 325 mg PO DAILY Rx Instructions: purchase [id number] levothyroxine [Synthroid] 25 mcg tablet 25 mcg PO DAILYBB 90 Days Qty: 90 3RF acetaminophen [Tylenol Extra Strength] 500 mg tablet 1,000 mg PO Q8H PRN (Reason: Pain) calcium carbonate-vitamin D3 [Calcium 500 + D] 500 mg(1,250mg) -200 unit tablet 1 tab PO QAM vitamin B complex Tablet 1 tab PO QAM Probiotic 10 billion cell Capsule 10,000 mmu cells PO QDD Rx Instructions: TAKE WITH EVENING MEAL multivitamin Tablet 1 tab PO DAILY metoprolol tartrate 50 mg tablet 50 mg PO BID miconazole nitrate [Desenex] 2 % powder 1 applic EXT BID PRN (Reason: as directed) Discharge Orders: Discharge Order (Routine); Ordered 08/18/23 Ordered By: Dianne Rodriguez Admission Data Admit Date/Time: 08/13/23 22:27 Attending Provider: Flo Lambert Admit Provider: Bebe Murillo Primary Care Provider: Pablo Hernandez Other Providers: Zak Dye; Pablo Ascencio; [facility]; [facility] Other Interventions: Discharge Summary Assessment (RN) Last Done: 08/18/23 12:01 Supervising Physician Co-Signing Physician Notes I personally examined the patient and verified all [facility] points of history and exam, discussed case, and agree with decision making with Dr Rodriguez Confused but pleasant denies complaints today. Talks about a man who had given him a haircut. SNF able to take him today, no new problems identified. Vitals noted, in general he is in no distress, restless Breathing unlabored no accessory muscle use good effort. Skin without rashes pallor or icterus. Apparent deliriumprobably multifactorial metabolic encephalopathy related to infection and hospitalization. Reassurance, reorientation as possible, SNF/rehab emphasis Infectioncellulitis +/- concomitant UTI (Possible suprapubic catheter UTI with possible sepsis present on admission) appears to be improving mild myocardial demand ischemiastable. No specific treatment needed permanent atrial fibrillationrate controlled, anticoagulated For SNF/rehab today anticoagulated Resident Activity Tracking Resident Involvement: Resident Care Provided Care Provided: Adult Hospital Medicine
--- NOTE | 2023-08-18 19:27 | Billing Data ---
Date of Service August 18, 2023 Coding Level of Care Code 05559 IN/OBS DISCH 30 MIN/LESS
--- NOTE | 2023-08-20 05:55 | Electrocardiogram Report ---
Test Reason : Blood Pressure : / mmHG Vent. Rate : 119 BPM Atrial Rate : 120 BPM P-R Int : 000 ms QRS Dur : 076 ms QT Int : 332 ms P-R-T Axes : 000 -17 023 degrees QTc Int : 467 ms Atrial fibrillation with rapid ventricular response with premature ventricular or aberrantly conducte d complexes Inferior infarct (cited on or before 17-AUG-2023) Nonspecific T wave abnormality Abnormal ECG When compared with ECG of 14-AUG-2023 18:39, No significant change was found Confirmed by Hardeep Hernandez ([id number]) on 08/20/2023 5:54:57 AM Referred By: REFERRED SELF Confirmed By:Hardeep Hernandez
== END 2023-08-18 13:53 | DRG 698 ==
LOC: ED 18:45 → 2W 22:27 → SUATTDRO 22:27 → 2W 23:25

== ENCOUNTER 2023-08-18 16:52 | Inpatient (IN) ==
--- NOTE | 2023-08-18 17:09 | Emergency Department Note ---
Impression & Plan Closed fracture of left hip, Head injury, Contusion of left shoulder, Fall ED Provider Note NAME: ANABELLE WILLIAMSON AGE: 88 SEX: M : 1935 ARRIVES VIA: Ambulance INFORMANT: Patient, EMS ED PROVIDER(S): Gabriel Quiroz DO CHIEF COMPLAINT: Fall HPI: The patient is an 88-year-old male who presented to the emergency department from his personal-prison for an evaluation after having a fall. The patient was being visited by his significant other. She went to walk away and he went to follow after her. The patient does not have good ambulation at baseline and he fell onto his left side. He was unable to stand. He had pain in his left hip. He also has pain in his left shoulder. He does take blood thinners. He was placed in a cervical collar and sent to the emergency department. The patient is unable to give much history. ROS: See above HPI for pertinent positives & negatives. A total of 10 systems reviewed and were otherwise negative. PAST MEDICAL HISTORY: See Below PAST SURGICAL HISTORY: See Below FAMILY HISTORY: See Below SOCIAL HISTORY: See Below HOME MEDICATIONS: See Below ALLERGIES: See Below VITALS: See Below PHYSICAL EXAMINATION: GENERAL: Patient is awake alert and resting. He does appear to be uncomfortable. EYES: The conjunctivae are clear. The pupils are round and reactive. EARS, NOSE, MOUTH AND THROAT: The nose is without any evidence of any deformity. NECK: The neck is nontender and supple. RESPIRATORY: Normal respiratory effort is noted there is no evidence of wheezing rhonchi or rales CARDIOVASCULAR: Irregular heart sounds were noted to auscultation. There is no definite murmur. GASTROINTESTINAL: The abdomen is soft. Abdomen is nontender. BACK: No midline tenderness or or step-off noted range of motion in flexion extension as well as rotation no signs of muscle spasm noted MUSCULOSKELETAL/EXTREMITIES: There is pain with range of motion testing of the left hip. There is also pain with motion testing of the left shoulder. There is no deformity of the upper extremity but there was shortening of the left leg. SKIN: Trace pedal edema was noted bilaterally. NEUROLOGIC: Patient is awake and oriented to person and place. Strength was symmetric but diminished. MEDICAL DECISION MAKING: The patient is an 88-year-old male who presented to the emergency department by ambulance after a fall. The patient went to stand up quickly and fell onto his left side. The patient was treated with pain medication in the emergency department. I discussed the patient's laboratory and radiographic studies with him and his significant other. He was found to have signs of a left hip fracture on radiographic studies. I discussed his condition with the on-call orthopedic physician as well as the on-call [facility] hospitalist. They have agreed to evaluate the patient in the emergency department for further management and disposition. Triage Nursing notes reviewed. Prior medical records reviewed Vital Signs: reviewed and remarkable for tachycardia. Differential diagnosis: Fracture, dislocation, contusion, intra-abdominal, pneumothorax, intrathoracic, intracranial, neurologic, compartment syndrome, rhabdomyolysis, as well as other pathologies. ER treatment provided: See below Diagnostics interpreted by me: ECG: EKG was obtained in the emergency department. My interpretation is atrial fibrillation at 96 bpm. There is no PVCs. There is no acute ST segment abnormalities noted. This was compared to a tracing from August 17, 2023. No changes were noted. Cardiac Monitoring: An order was placed for continuous cardiac monitoring. The monitor shows a rate of 130 bpm with atrial fibrillation and RVR. Laboratory studies: As stated above and show below. Imaging studies: See below. Radiographic imaging was reviewed by myself Consultation(s): I discussed this case with Dr. Garcia who is on-call for the [facility] hospitalist group. I discussed this case with Dr. Bettencourt who is on-call for orthopedics. Past Med/Surg History Medical History (Updated 08/18/23 @ 23:05 by Gabriel Quiroz DO) Chronic renal insufficiency, stage IV (severe) SCC (squamous cell carcinoma), penis Atrial fibrillation no cardioversions/ no pacer. treated with medication and follows with PCP GERD (gastroesophageal reflux disease) Stage 3b chronic kidney disease Acute UTI Pain in penis Lumbosacral facet joint syndrome Discogenic lumbar pain Acute metabolic encephalopathy UTI (urinary tract infection) Rib pain on left side Syncopal episodes COVID-19 Penile cancer KENROY (acute kidney injury) Unresponsiveness Anemia of chronic disease Diarrhea SCC (squamous cell carcinoma), penis Chronic pruritus Hypothyroidism Secondary hyperparathyroidism of renal origin Orthostatic hypotension Vitamin D deficiency SBO (small bowel obstruction) Small bowel obstruction due to adhesions Rectal bleed BRBPR (bright red blood per rectum) Dementia Hyperkalemia Acute cholecystitis Substernal chest pain resolved per pt Dysphagia "trouble keeping foods down" Fall walker and cane -- fall risk. Colitis Concussion Degenerative disc disease Osteoarthritis History of bleeding ulcers Diabetes mellitus, type 2 diet controlled Hx of migraines Hx of sleep apnea no device Balanoposthitis Phimosis DDD (degenerative disc disease), lumbar Atrial fibrillation (04/22/12) Peptic ulcer disease BPH w urinary obs/LUTS Anal fistula Fall LAST FALL 1 WEEK AGO Hypoglycemia Bradycardia Surgical History S/P laparoscopic cholecystectomy (09/17/20) Laparoscopic Cholecystectomy with Cholangiogram with akira drain 09/17/20 Dr. Atkinson Hx of circumcision 2 yrs ago H/O knee surgery "MULTIPLE KNEE SURGERIES"- R/L History of total shoulder replacement LEFT History of total knee replacement RT/LEFT History of esophagogastroduodenoscopy (EGD) History of colonoscopy History of tooth extraction Hx of transurethral resection of prostate H/O gastric bypass 2004 Family History Sister Family history of diabetes mellitus Social History Smoking Status: Never smoker Tobacco Type: Cigarettes Second Hand Exposure: No; Do You Dip or Chew Tobacco: No; Hx Alcohol Use: No Hx Substance Use: No Preferred Language: Turkmen Communication Ability: Impaired Communication Ability Comment: can be forgetful Cereal Maker Required: No Beliefs That Will Affect Care: None marital status: Current Living Situation: Spouse Current Living Situation Comment: At home with current occupational status: retired Feels Safe at Home: Yes Diet: regular caffeine: No Dental Care, Regularly: Yes Seatbelt Use: always Assistive Devices: Walker Allergies Allergies Allergy/AdvReac Type Severity Reaction Status Date / Time iron [From Venofer] AdvReac Mild warm Verified 08/18/23 18:19 sensation/flushing, discomfort in arm in which it was i Home Meds Home Medications Medication Instructions Recorded Confirmed calcium carbonate 500 mg-vitamin 1 tab PO QAM 12/18/19 08/18/23 D3 5 mcg (200 unit) tablet (Calcium 500 + D) vitamin B complex 1 tab PO QAM 12/18/19 08/18/23 Lactobacillus acidophilus 10 10,000 mmu cells PO QDD 01/18/21 08/18/23 billion cell capsule (Probiotic) multivitamin 1 tab PO DAILY 08/01/22 08/18/23 acetaminophen 500 mg tablet 1,000 mg PO Q8H PRN Pain 12/22/22 08/18/23 (Tylenol Extra Strength) ferrous sulfate 325 mg (65 mg 325 mg PO DAILY 04/27/23 08/18/23 iron) tablet,delayed release metoprolol tartrate 50 mg tablet 50 mg PO BID 08/13/23 08/18/23 miconazole nitrate 2 % topical 1 applic EXT BID PRN as directed 08/13/23 08/18/23 powder (Desenex) Previous Rx's Medication Instructions Recorded sodium bicarbonate 650 mg tablet 650 mg PO BID Stomach upset #180 08/10/22 tabs calcitriol 0.25 mcg capsule 0.25 mcg PO DAILY #90 caps 10/06/22 magnesium oxide 400 mg (241.3 mg 400 mg PO BID #180 tabs 11/23/22 magnesium) tablet apixaban 2.5 mg tablet (Eliquis) 2.5 mg PO BID #180 tabs 04/15/23 clopidogrel 75 mg tablet (Plavix) 75 mg PO DAILY #90 tabs 04/15/23 levothyroxine 25 mcg tablet 25 mcg PO DAILYBB 90 days #90 tabs 05/27/23 (Synthroid) tamsulosin 0.4 mg capsule 0.4 mg PO DAILY #90 caps 06/14/23 omeprazole 40 mg capsule,delayed 40 mg PO BID 90 days #180 caps 06/23/23 release gabapentin 100 mg capsule 100 mg PO BID #180 caps 08/05/23 cephalexin 500 mg capsule 500 mg PO Q8H 4 days #12 caps 08/18/23 miconazole nitrate 2 % topical 1 applic EXT BID Use twice per day 08/18/23 powder (Desenex) until resolution of groin rash #85 grams oxybutynin chloride 5 mg 5 mg PO QAM #30 tabs 08/18/23 tablet,extended release 24 hr Results & Data (ED) Vital Signs Vital Signs - 24 hr 08/18/23 17:00 08/18/23 17:22 08/18/23 17:30 Pulse Rate 93 H 96 H 83 Pulse Rate from SpO2 Sensor Pulse Rhythm Respiratory Rate 30 H 25 H Respiratory Effort / Characteristics Respiratory Depth Respiratory Pattern Blood Pressure 126/98 120/80 Blood Pressure Mean 107 93 Pulse Oximetry 93 93 Oxygen Delivery Method Room Air Room Air Oxygen Flow Rate Sepsis Recent Fever Within 48 Hours Sepsis New/Unexplained Change in Mental Status Sepsis Action Taken by Nursing Oxygen Flow Rate - Titration Pulse Oximetry Post Tiitration 08/18/23 17:37 08/18/23 18:05 08/18/23 18:30 Pulse Rate 82 89 98 H Pulse Rate from SpO2 Sensor Pulse Rhythm Irregular Respiratory Rate 20 25 H 26 H Respiratory Effort / Characteristics Non-Labored Spontaneous Respiratory Depth Normal Respiratory Pattern Regular Blood Pressure 133/79 123/77 126/98 Blood Pressure Mean 97 92 107 Pulse Oximetry 97 90 90 Oxygen Delivery Method Room Air Room Air Nasal Cannula Oxygen Flow Rate 1.5 Sepsis Recent Fever Within 48 Hours No Sepsis New/Unexplained Change in Mental Status N/A Sepsis Action Taken by Nursing No Action Required Oxygen Flow Rate - Titration Pulse Oximetry Post Tiitration 08/18/23 18:47 08/18/23 19:01 08/18/23 19:44 Pulse Rate 103 H 106 H Pulse Rate from SpO2 Sensor 102 H 106 H Pulse Rhythm Respiratory Rate 19 20 Respiratory Effort / Characteristics Respiratory Depth Respiratory Pattern Blood Pressure 114/80 120/79 Blood Pressure Mean 91 92 Pulse Oximetry 89 L 96 96 Oxygen Delivery Method Nasal Cannula Room Air Oxygen Flow Rate 0 Sepsis Recent Fever Within 48 Hours Sepsis New/Unexplained Change in Mental Status Sepsis Action Taken by Nursing Oxygen Flow Rate - Titration 2 Pulse Oximetry Post Tiitration 95 08/18/23 20:00 Pulse Rate 120 H Pulse Rate from SpO2 Sensor 92 H Pulse Rhythm Respiratory Rate 23 Respiratory Effort / Characteristics Respiratory Depth Respiratory Pattern Blood Pressure 133/88 Blood Pressure Mean 103 Pulse Oximetry 94 Oxygen Delivery Method Room Air Oxygen Flow Rate Sepsis Recent Fever Within 48 Hours Sepsis New/Unexplained Change in Mental Status Sepsis Action Taken by Nursing Oxygen Flow Rate - Titration Pulse Oximetry Post Tiitration Home Medications Current Medication List: was personally reviewed by me Laboratory Data Attestation: I reviewed the patient's lab results. 08/18/23 17:06 08/18/23 17:06 Lab Results 08/18/23 08/18/23 08/18/23 Range/Units 17:06 18:05 19:28 WBC 9.34 (4.8-10.8) K/ul RBC 3.58 L (4.70-6.10) M/uL Hgb 10.9 L (14.0-18.0) g/dl Hct 34.5 L (42.0-52.0) % MCV 96.4 (80.0-100.0) fL MCH 30.4 (25.0-34.0) pg MCHC 31.6 L (32.0-36.0) g/dL RDW Std Deviation 47.7 H (36.4-46.3) fL RDW Coeff of Yinka 13.3 (11.5-14.5) % Plt Count 181 (130-400) K/uL MPV 11.5 (9.4-12.4) fL Immature Gran % (Auto) 1.0 % Neut % (Auto) 72.7 % Lymph % (Auto) 11.8 % Freeborn % (Auto) 12.4 % Eos % (Auto) 1.9 % Baso % (Auto) 0.2 % Neut # (Auto) 6.79 H (1.40-6.50) K/uL Lymph # (Auto) 1.10 L (1.20-3.40) K/uL Free[place] # (Auto) 1.16 H (0.11-0.59) K/uL Eos # (Auto) 0.18 (0.00-0.50) K/uL Baso # (Auto) 0.02 (0.00-0.20) K/uL Immature Gran # (Auto) 0.09 (0.01-0.20) K/uL PT 12.4 H (9.0-12.0) Seconds INR 1.1 (0.9-1.1) APTT 31 (21-31) Seconds PTT Ratio 1.1 Sodium 137 (136-145) mmol/L Potassium 5.0 D (3.5-5.1) mmol/L Chloride 107 (98-107) mmol/L Carbon Dioxide 22 (21-32) mmol/L Anion Gap 8 (3-11) BUN 29 H (6-23) mg/dl Creatinine 2.20 H (0.6-1.4) mg/dl Est Cr Clr Drug Dosing 27.2 ml/min Est GFR ( Amer) 30.1 ml/min Est GFR (Non-Af Amer) 26.0 ml/min BUN/Creatinine Ratio 13.2 (10-20) Glucose 155 H (70-99(Fasting)) mg/dl Calcium 8.7 (8.6-10.3) mg/dl Total Bilirubin 0.3 (0.2-1.0) mg/dl AST 37 (13-39) U/L ALT 5 L (7-52) U/L Alkaline Phosphatase 108 H (34-104) U/L Troponin I High Sens 12.6 (0-20) pg/ml C-Reactive Protein 10.10 H (0-0.5) mg/dl B-Natriuretic Peptide 81 (0-100) pg/ml Total Protein 6.6 (6.0-8.3) gm/dl Albumin 2.9 L (3.4-5.0) gm/dl Globulin 3.7 (2.5-4.0) gm/dl Albumin/Globulin Ratio 0.8 L (0.9-2) Lipase 25 (11-82) U/L Procalcitonin 1.07 H (0-0.5) ng/ml Urine Color Yellow Urine Appearance Cloudy A (Clear) Urine pH 5.5 (4.5-7.5) Ur Specific Crawford 1.019 (1.000-1.030) Urine Protein 2+ H (Negative) Urine Glucose (UA) Negative (Negative) Urine Ketones Trace H (Negative) Urine Blood 3+ H (Negative) Urine Nitrite Negative (Negative) Urine Bilirubin Negative (Negative) Urine Urobilinogen Negative (Negative) Ur Leukocyte Esterase 2+ H (Negative) Urine WBC (Auto) >30 H (0-5) /hpf Urine RBC (Auto) 5-10 H (0-4) /hpf U Hyaline Cast (Auto) 0 (0-5) /lpf U Epithel Cells (Auto) 0-5 (0-5) /lpf Urine Bacteria (Auto) Negative (Negative) Urine Yeast Not Reportable Nasal Screen MRSA (PCR) (Negative) SARS-CoV-2 (PCR) NEGATIVE (Negative) Influenza Type A (PCR) Negative (Neg) Influenza Type B (PCR) Negative (Neg) RSV (RT-PCR) Negative (Neg) 08/18/23 Range/Units 19:31 WBC (4.8-10.8) K/ul RBC (4.70-6.10) M/uL Hgb (14.0-18.0) g/dl Hct (42.0-52.0) % MCV (80.0-100.0) fL MCH (25.0-34.0) pg MCHC (32.0-36.0) g/dL RDW Std Deviation (36.4-46.3) fL RDW Coeff of Yinka (11.5-14.5) % Plt Count (130-400) K/uL MPV (9.4-12.4) fL Immature Gran % (Auto) % Neut % (Auto) % Lymph % (Auto) % Free[place] % (Auto) % Eos % (Auto) % Baso % (Auto) % Neut # (Auto) (1.40-6.50) K/uL Lymph # (Auto) (1.20-3.40) K/uL Freeborn # (Auto) (0.11-0.59) K/uL Eos # (Auto) (0.00-0.50) K/uL Baso # (Auto) (0.00-0.20) K/uL Immature Gran # (Auto) (0.01-0.20) K/uL PT (9.0-12.0) Seconds INR (0.9-1.1) APTT (21-31) Seconds PTT Ratio Sodium (136-145) mmol/L Potassium (3.5-5.1) mmol/L Chloride (98-107) mmol/L Carbon Dioxide (21-32) mmol/L Anion Gap (3-11) BUN (6-23) mg/dl Creatinine (0.6-1.4) mg/dl Est Cr Clr Drug Dosing ml/min Est GFR ( Amer) ml/min Est GFR (Non-Af Amer) ml/min BUN/Creatinine Ratio (10-20) Glucose (70-99(Fasting)) mg/dl Calcium (8.6-10.3) mg/dl Total Bilirubin (0.2-1.0) mg/dl AST (13-39) U/L ALT (7-52) U/L Alkaline Phosphatase (34-104) U/L Troponin I High Sens (0-20) pg/ml C-Reactive Protein (0-0.5) mg/dl B-Natriuretic Peptide (0-100) pg/ml Total Protein (6.0-8.3) gm/dl Albumin (3.4-5.0) gm/dl Globulin (2.5-4.0) gm/dl Albumin/Globulin Ratio (0.9-2) Lipase (11-82) U/L Procalcitonin (0-0.5) ng/ml Urine Color Urine Appearance (Clear) Urine pH (4.5-7.5) Ur Specific Crawford (1.000-1.030) Urine Protein (Negative) Urine Glucose (UA) (Negative) Urine Ketones (Negative) Urine Blood (Negative) Urine Nitrite (Negative) Urine Bilirubin (Negative) Urine Urobilinogen (Negative) Ur Leukocyte Esterase (Negative) Urine WBC (Auto) (0-5) /hpf Urine RBC (Auto) (0-4) /hpf U Hyaline Cast (Auto) (0-5) /lpf U Epithel Cells (Auto) (0-5) /lpf Urine Bacteria (Auto) (Negative) Urine Yeast Nasal Screen MRSA (PCR) Negative (Negative) SARS-CoV-2 (PCR) (Negative) Influenza Type A (PCR) (Neg) Influenza Type B (PCR) (Neg) RSV (RT-PCR) (Neg) Administered Medications Lactated Ringer's (Lr) 1,000 mls @ 80 mls/hr IV .[id number] [facility] Stop: 09/17/23 21:40 Last Admin: 08/18/23 22:48 Dose: 80 mls/hr Documented By: VI Vancomycin HCl 2,000 mg/ (Sodium Chloride) 540 mls @ 200 mls/hr IV NOW ONE Stop: 08/19/23 00:41 Last Admin: 08/18/23 22:48 Dose: 200 mls/hr Documented By: VI Magnesium Oxide (Magnesium Oxide 400 Mg Tab) 400 mg PO BID [facility] Stop: 09/17/23 21:40 Last Admin: 08/18/23 22:49 Dose: 400 mg Documented By: VI Metoprolol Tartrate (Metoprolol Tartrate 50 Mg Tab) 50 mg PO BID [facility] Stop: 09/17/23 21:40 Last Admin: 08/18/23 22:48 Dose: 50 mg Documented By: VI Pantoprazole Sodium (Pantoprazole 40 Mg Tab) 40 mg PO BID [facility] Stop: 09/17/23 21:40 Last Admin: 03/13/24 22:48 Dose: 40 mg Documented By: VI Discontinued Medications Fentanyl Citrate (Fentanyl Citrate Pf 100 Mcg/2 Ml Vial) 25 mcg IV NOW STA Stop: 08/18/23 18:25 Last Admin: 08/18/23 18:33 Dose: 25 mcg Documented By: ROSS Fentanyl Citrate (Fentanyl Citrate Pf 100 Mcg/2 Ml Vial) 25 mcg IV NOW STA Stop: 08/18/23 19:07 Last Admin: 08/18/23 19:19 Dose: 25 mcg Documented By: YE Ceftriaxone Sodium (Rocephin) 2,000 mg in 50 mls @ 100 mls/hr IV NOW STA Stop: 08/18/23 18:55 Last Infusion: 08/18/23 19:18 Dose: Infused Documented By: Admin: 08/18/23 18:33 Dose: 100 mls/hr Documented By: ROSS Insulin Aspart (Insulin Aspart Per Unit Charge) 0 units SC ACHS SHY Stop: 09/17/23 20:59 Last Admin: 08/18/23 21:59 Dose: 1 units Documented By: VI Co-signed By: FRANSISCO Ondansetron HCl (Ondansetron Inj 2 Mg/Ml 2 Ml Vial) 4 mg IV NOW STA Stop: 08/18/23 18:25 Last Admin: 08/18/23 18:33 Dose: 4 mg Documented By: ROSS Imaging Data Attestation: I personally reviewed and interpreted this imaging study as follows: My Impression: CT of the brain was obtained in the emergency department. My interpretation is no intracranial hemorrhage or mass effect, final report below. 1 view chest x- ray was obtained in the emergency department. My interpretation is possible infiltrate in the right upper lobe, final report below. X-ray of the left hip and pelvis were obtained in the emergency department. My interpretation is intertrochanteric left hip fracture, final report below. X-ray of the left shoulder was obtained in the emergency department. My interpretation is surgical changes noted, no definite infiltrate or dislocation, final report below Radiologist's Impression: Cervical Spine CT 08/18/23 17:06 CT cervical spine wo con CLINICAL HISTORY: 88 years-old Male with fall. Acute head and neck injury status post fall COMPARISON: Head CT same day, CT cervical spine 10/04/2021 TECHNIQUE: Multiple axial CT images of the cervical spine were obtained without contrast. A dose lowering technique was utilized adhering to the principles of ALARA. FINDINGS: FINDINGS: Demineralized appearance of the bones. Chronic superior endplate compression deformities at T1 and T2. Moderate multilevel disc space narrowing with chondrocalcinosis, moderate spondylitic spurring with posterior disc osteophyte complex formations are noted at multiple levels. Severe multilevel facet arthrosis. Partially calcified pannus posterior to odontoid process. Multilevel neural foraminal narrowing. The cervical soft tissues appear unremarkable. No pneumothorax. Partially imaged intralobular septal thickening in the right upper lobe with patchy groundglass and consolidative opacities. IMPRESSION: 1. No acute cervical spine fracture or subluxation. 2. Partially imaged right upper lobe pulmonary opacities suggestive of pulmonary edema versus pneumonia. ACT 112: Negative or not required by law. The above report was generated using voice recognition software. It may contain grammatical, syntax or spelling errors. Electronically signed by: Sixto Armenta M.D. 08/18/2023 5:46 PM Chest X-Ray 08/18/23 17:06 XR chest 1V portable HISTORY: 88 years-old Male Chest pain, nonspecific acute chest trauma status post fall COMPARISON: Chest x-ray 08/13/2023, CT cervical spine 08/18/2023. TECHNIQUE: AP view the chest FINDINGS: Cardiac silhouette is enlarged. Pulmonary vascular congestion with interstitial coarsening. There are new ill-defined right apical airspace opacities which are new from prior. Probable trace pleural effusions. Degenerative change of the spine and right shoulder. Left shoulder arthroplasty. Cystectomy. IMPRESSION: 1. No acute posttraumatic abnormality of the chest identified. 2. Cardiomegaly with suggestion of mild pulmonary edema. 2. Asymmetric right upper lobe airspace opacities are new from 08/13/2023. Findings may represent pneumonia, therefore follow-up recommended in order to document resolution. ACT 112: Negative or not required by law. The above report was generated using voice recognition software. It may contain grammatical, syntax or spelling errors. Electronically signed by: Sixto Armenta M.D. 08/18/2023 6:[address] 08/18/23 17:06 CT head/brain wo con CLINICAL HISTORY: 88 years-old Male with fall. Acute head trauma status post fall. TECHNIQUE: Multiple axial CT images of the head were obtained without contrast. A dose lowering technique was utilized adhering to the principles of ALARA. CT DOSE: 1198.62 mGy.cm COMPARISON: Head CT 08/13/2023 FINDINGS: No acute intracranial hemorrhage, midline shift, intracranial mass, hydrocephalus, territorial ischemia or abnormal extra-axial collection. Involutional changes with chronic microvascular ischemic disease. Unchanged mild ventriculomegaly. Cerebral vascular calcifications. The calvarium is intact. Prior bilateral lens repair. The paranasal sinuses, mastoid air cells, and middle ear cavities are clear. IMPRESSION: No acute intracranial abnormality or calvarial fracture. ACT 112: Negative or not required by law. The above report was generated using voice recognition software. It may contain grammatical, syntax or spelling errors. Electronically signed by: Sixto Armenta M.D. 08/18/2023 5:39 PM Hip/Pelvis X-Ray 08/18/23 17:06 XR hip LT 2V w pelvis HISTORY: 88 years-old Male fall acute pelvic pain status post fall COMPARISON: CT 05/23/2023 TECHNIQUE: AP view of the pelvis with crosstable lateral view of the left hip FINDINGS: Demineralized appearance to the bones with moderate osteoarthritis of the hips. Arterial calcifications. There is an acute mildly displaced intratrochanteric left femoral fracture. IMPRESSION: Acute mildly displaced intertrochanteric left femoral fracture. ACT 112: Negative or not required by law. The above report was generated using voice recognition software. It may contain grammatical, syntax or spelling errors. Electronically signed by: Sixto Armenta M.D. 08/18/2023 6:13 PM Shoulder X-Ray 08/18/23 17:06 XR shoulder LT min 2V routine HISTORY: 88 years-old Male fall acute left shoulder pain status post fall COMPARISON: Chest radiograph of same day, graphs of the left shoulder 05/05/2023 TECHNIQUE: 3 views of the left shoulder FINDINGS: Reversed total joint arthroplasty appears unchanged from the prior study. There is a chronic corticated curvilinear bone fragment projected over the axillary recess. No acute fracture, dislocation or osseous erosion. IMPRESSION: 1. No acute fracture or dislocation. 2. Unchanged appearance of the reverse left shoulder total joint arthroplasty. ACT 112: Negative or not required by law. The above report was generated using voice recognition software. It may contain grammatical, syntax or spelling errors. Electronically signed by: Sixto Armenta M.D. 08/18/2023 6:14 PM Discharge Plan Visit Data Chief Complaint: Fall Stated Complaint: FALL ED Provider: Gabriel Quiroz Discharge Problem: Closed fracture of left hip, Head injury, Contusion of left shoulder, Fall Patient Disposition: Admitted As Inpatient Discharge Instructions Interventions: ED Discharge Assessment Last Done: 08/18/23 21:23 Discharge Problem: Closed fracture of left hip Qualifiers: Encounter type: initial encounter Qualified Code(s): S72.002A - Fracture of unspecified part of neck of left femur, initial encounter for closed fracture Head injury Qualifiers: Encounter type: initial encounter Qualified Code(s): S09.90XA - Unspecified injury of head, initial encounter Contusion of left shoulder Qualifiers: Encounter type: initial encounter Qualified Code(s): S40.012A - Contusion of left shoulder, initial encounter Fall Qualifiers: Encounter type: initial encounter Qualified Code(s): W19.XXXA - Unspecified fall, initial encounter
[2023-08-18 17:41] LABS: Basophils # (auto) 0.02 K/uL (0.00-0.20); Basophils % (auto) 0.2 %; Eosinophils # (auto) 0.18 K/uL (0.00-0.50); Eosinophils % (auto) 1.9 %; Hematocrit (blood only) 34.5 % (42.0-52.0); Hemoglobin 10.9 g/dl (14.0-18.0); Immature Granulocytes # (auto) 0.09 K/uL (0.01-0.20); Lymphocytes % (auto) 11.8 %; Mean Corpuscular Hemoglobin 30.4 pg (25.0-34.0); Mean Corpuscular Hgb Conc 31.6 g/dL (32.0-36.0); Mean Corpuscular Volume 96.4 fL (80.0-100.0); Mean Platelet Volume 11.5 fL (9.4-12.4); Monocytes # (auto) 1.16 K/uL (0.11-0.59); Monocytes % (auto) 12.4 %; Neutrophils # (auto) 6.79 K/uL (1.40-6.50); Neutrophils % (auto) 72.7 %; Platelet Count 181 K/uL (130-400); RDW Coefficient of Variation 13.3 % (11.5-14.5); RDW Standard Deviation 47.7 fL (36.4-46.3); Red Blood Count 3.58 M/uL (4.70-6.10); White Blood Count 9.34 K/ul (4.8-10.8)
--- NOTE | 2023-08-18 17:41 | CT Scan Report ---
CT head/brain wo con CLINICAL HISTORY: 88 years-old Male with fall. Acute head trauma status post fall. TECHNIQUE: Multiple axial CT images of the head were obtained without contrast. A dose lowering tech nique was utilized adhering to the principles of ALARA. CT DOSE: 1198.62 mGy.cm COMPARISON: Head CT 08/13/2023 FINDINGS: No acute intracranial hemorrhage, midline shift, intracranial mass, hydrocephalus, territorial ischem ia or abnormal extra-axial collection. Involutional changes with chronic microvascular ischemic disea se. Unchanged mild ventriculomegaly. Cerebral vascular calcifications. The calvarium is intact. Prior bilateral lens repair. The paranasal sinuses, mastoid air cells, and m iddle ear cavities are clear. IMPRESSION: No acute intracranial abnormality or calvarial fracture. ACT 112: Negative or not required by law. The above report was generated using voice recognition software. It may contain grammatical, syntax o r spelling errors. Electronically signed by: Sixto Armenta M.D. 08/18/2023 5:39 PM
--- NOTE | 2023-08-18 17:48 | CT Scan Report ---
CT cervical spine wo con CLINICAL HISTORY: 88 years-old Male with fall. Acute head and neck injury status post fall COMPARISON: Head CT same day, CT cervical spine 10/04/2021 TECHNIQUE: Multiple axial CT images of the cervical spine were obtained without contrast. A dose low ering technique was utilized adhering to the principles of ALARA. FINDINGS: FINDINGS: Demineralized appearance of the bones. Chronic superior endplate compression defo rmities at T1 and T2. Moderate multilevel disc space narrowing with chondrocalcinosis, moderate spond ylitic spurring with posterior disc osteophyte complex formations are noted at multiple levels. Sever e multilevel facet arthrosis. Partially calcified pannus posterior to odontoid process. Multilevel ne ural foraminal narrowing. The cervical soft tissues appear unremarkable. No pneumothorax. Partially i pippa intralobular septal thickening in the right upper lobe with patchy groundglass and consolidativ e opacities. IMPRESSION: 1. No acute cervical spine fracture or subluxation. 2. Partially imaged right upper lobe pulmonary opacities suggestive of pulmonary edema versus pneumon ia. ACT 112: Negative or not required by law. The above report was generated using voice recognition software. It may contain grammatical, syntax o r spelling errors. Electronically signed by: Sixto Armenta M.D. 08/18/2023 5:46 PM
[2023-08-18 17:53] LABS: INR 1.1 (0.9-1.1); Partial Thromboplastin Ratio 1.1; Partial Thromboplastin Time 31 Seconds (21-31); Prothrombin Time 12.4 Seconds (9.0-12.0)
--- NOTE | 2023-08-18 18:11 | XRay Report ---
XR chest 1V portable HISTORY: 88 years-old Male Chest pain, nonspecific acute chest trauma status post fall COMPARISON: Chest x-ray 08/13/2023, CT cervical spine 08/18/2023. TECHNIQUE: AP view the chest FINDINGS: Cardiac silhouette is enlarged. Pulmonary vascular congestion with interstitial coarsening. There are new ill-defined right apical airspace opacities which are new from prior. Probable trace pleural eff usions. Degenerative change of the spine and right shoulder. Left shoulder arthroplasty. Cystectomy. IMPRESSION: 1. No acute posttraumatic abnormality of the chest identified. 2. Cardiomegaly with suggestion of mild pulmonary edema. 2. Asymmetric right upper lobe airspace opacities are new from 08/13/2023. Findings may represent pneum onia, therefore follow-up recommended in order to document resolution. ACT 112: Negative or not required by law. The above report was generated using voice recognition software. It may contain grammatical, syntax o r spelling errors. Electronically signed by: Sixto Armenta M.D. 08/18/2023 6:10 PM
[2023-08-18 18:12] LABS: Albumin Globulin Ratio 0.8 (0.9-2); Albumin Level 2.9 gm/dl (3.4-5.0); BUN Creatinine Ratio 13.2 (10-20); Bilirubin,Total 0.3 mg/dl (0.2-1.0); Calcium 8.7 mg/dl (8.6-10.3); Creatinine Clr Calc Pharmacy 27.2 ml/min; Est GFR (African American) 30.1 ml/min; Globulin 3.7 gm/dl (2.5-4.0); Total Protein 6.6 gm/dl (6.0-8.3); Troponin I High Sensitivity 12.6 pg/ml (0-20)
--- NOTE | 2023-08-18 18:15 | XRay Report ---
XR shoulder LT min 2V routine HISTORY: 88 years-old Male fall acute left shoulder pain status post fall COMPARISON: Chest radiograph of same day, graphs of the left shoulder 05/05/2023 TECHNIQUE: 3 views of the left shoulder FINDINGS: Reversed total joint arthroplasty appears unchanged from the prior study. There is a chronic corticat ed curvilinear bone fragment projected over the axillary recess. No acute fracture, dislocation or os seous erosion. IMPRESSION: 1. No acute fracture or dislocation. 2. Unchanged appearance of the reverse left shoulder total joint arthroplasty. ACT 112: Negative or not required by law. The above report was generated using voice recognition software. It may contain grammatical, syntax o r spelling errors. Electronically signed by: Sixto Armenta M.D. 08/18/2023 6:14 PM
--- NOTE | 2023-08-18 18:15 | XRay Report ---
XR hip LT 2V w pelvis HISTORY: 88 years-old Male fall acute pelvic pain status post fall COMPARISON: CT 05/23/2023 TECHNIQUE: AP view of the pelvis with crosstable lateral view of the left hip FINDINGS: Demineralized appearance to the bones with moderate osteoarthritis of the hips. Arterial calcificatio ns. There is an acute mildly displaced intratrochanteric left femoral fracture. IMPRESSION: Acute mildly displaced intertrochanteric left femoral fracture. ACT 112: Negative or not required by law. The above report was generated using voice recognition software. It may contain grammatical, syntax o r spelling errors. Electronically signed by: Sixto Armenta M.D. 08/18/2023 6:13 PM
[2023-08-18] MEDS: fentaNYL citrate PF 100 MCG/2 ML VIAL IV STA ×2 (18:33→19:19)
[2023-08-18] MEDS: ONDANSETRON INJ 2 MG/ML 2 ML VIAL IV STA (18:33)
[2023-08-18] MEDS: cefTRIAXone SODIUM 2,000 MG/50 ML BAG IV STA (18:33)
--- NOTE | 2023-08-18 19:01 | History & Physical Report ---
Date of Service August 18, 2023 Assessment & Plan (1) Hip fracture: Plan: Left hip fracture No syncope/presyncope No evidence of neurovascular compromise on admitting exam Orthopedics consulted N.p.o. Eliquis held (2) Abnormal x-ray: Plan: ? Developing pneumonia. This is also noted on CT spine Without hypoxia, leukocytosis, respiratory symptoms. Was recently treated with a course of cefazolin, Rocephin, and then oral Keflex to complete a total 7-day course of antibiotics. He had 3 days remaining of this course She also has a history of MRSA and has not been on MRSA coverage. Sputum culture, repeat nare, and quad screen have been ordered. Due to suspected developing pneumonia with history of MRSA positivity vancomycin has been ordered, patient has been continued on admission on Rocephin. If deterioration expand to include pseudomonal coverage Patient does not appear septic, does not have a leukocytosis, tachypnea, or fever (3) Atrial fibrillation: Plan: History of A-fib A-fib with intermittent RVR, on metoprolol 50 mg twice daily and Eliquis 2.5 mg twice daily Eliquis held in the setting of hip fracture Heart rate elevated in setting of hip fracture and pain, heart rate does improve with pain control and rest at bedside History of atypical chest pain, recent mild troponin elevation Patient did report chest pain after he fell earlier in the day, has no chest pain at time of admission. Denies exertional chest pain. Limited historian Was seen by interventional cardiology 06/2023. Poor candidate for catheterization and recommended only to pursue this if he had clear evidence of acute HI/shock, persistent VT. As such stress testing was deferred at that time. Patient was continued on metoprolol, Plavix, Eliquis. Cardiology has been consulted for preoperative restratification and recommendations. Data weight today 93 kg, dry weight appears approximately 92-93 kg. Last echo 04/2023 with preserved ejection fraction. Patient denies orthopnea. No ischemic changes on admission, high-sensitivity troponin is normal. ? Mild pulmonary edema on chest x-ray without hypoxia or symptoms, also? Developing pneumonia. BNP ordered, both Lasix and fluids deferred following (4) Diabetes mellitus, type 2: Plan: DM2 Well-controlled diet controlled at home SSI ordered on admission goal [id number] History of TIA Plavix temporarily held. Denies history of cardiac or carotid stents (5) Dementia: Plan: noted (6) Chronic renal insufficiency, stage IV (severe): Plan: CKD 3 Creatinine 2.2 on admission, upper range of patient's normal Renally dose medications, trend BMP daily (7) Sleep apnea: Plan: cpap qhs prn (8) Cellulitis of groin: Plan: Recent cellulitis With demarcated scrotal/perineal erythema on prior admit. on reassessment slight bronzing/hyperpigmentation but no erythema, tenderness, or demarkated erythema. -No signs of worsening cellulitis, antibiotics continued as noted Plan DVT prophylaxis: SCDs Disposition: PCU due to history of A-fib and chest pain CODE STATUS: Full code per Diet: N.p.o. History of Present Illness Primary Care Provider: Pablo Hernandez, While is an 88-year-old male presents from [place] [facility] after discharge the same morning and subsequently had a fall. He had no lightheadedness, dizziness, syncope, or presyncope but did attempt to ambulate, and fell to his left side with subsequent hip pain. Patient was recently admitted 08/13/2023 - 08/18/2023 for sepsis suspected of urinary versus cellulitic source. Patient did have ambulatory dysfunction PT and OT recommended SNF, patient was discard to [facility]. On ER assessment he has no leukocytosis, remains anemic but with uptrending hemoglobin, has a creatinine around the upper limit of his normal range 2.2 on admission, and no potassium/sodium ibnormalities. Left shoulder x-ray is with no acute change, head CT is with no acute findings, chest x-ray suggestive of mild pulmonary edema and? Right upper lobe developing pneumonia Hip and pelvis x-ray shows an acute mildly displaced intertrochanteric left femoral fracture Cl seems at bedside with his present. His reports that he went to stand up out of the wheelchair at rehab but was too weak to walk and immediately fell to his left side striking his hip. He did not have any lightheadedness, dizziness, syncope, presyncope leading to this. He denies fever, chills, sweats. He has not had a cough or any sputum production Patient's does report that he was complaining of some chest pain earlier in the day, currently he denies chest pain and notes all the pain is in his left hip. He denies shortness of breath. Denies abdominal pain, nausea, vomiting. Denies orthopnea. He is able to wiggle his toes on command. History is somewhat limited by cognitive status, he is oriented to name only. Medical History: Reviewed Medications: Reviewed Surgical History: Reviewed Family history: Reviewed Allergies: Reviewed Social History: Reviewed Code Status: Full, discussed with patient's at bedside. Allergies Allergy/AdvReac Type Severity Reaction Status Date / Time iron [From Venofer] AdvReac Mild warm Verified 08/18/23 18:19 sensation/flushing, discomfort in arm in which it was i Home Medications Medication Instructions Recorded Confirmed Type calcium carbonate 500 mg-vitamin 1 tab PO QAM 12/18/19 08/18/23 History D3 5 mcg (200 unit) tablet (Calcium 500 + D) vitamin B complex 1 tab PO QAM 12/18/19 08/18/23 History Lactobacillus acidophilus 10 10,000 mmu cells PO QDD 01/18/21 08/18/23 History billion cell capsule (Probiotic) multivitamin 1 tab PO DAILY 08/01/22 08/18/23 History sodium bicarbonate 650 mg tablet 650 mg PO BID Stomach upset #180 08/10/22 08/18/23 Rx tabs calcitriol 0.25 mcg capsule 0.25 mcg PO DAILY #90 caps 10/06/22 08/18/23 Rx magnesium oxide 400 mg (241.3 mg 400 mg PO BID #180 tabs 11/23/22 08/18/23 Rx magnesium) tablet acetaminophen 500 mg tablet 1,000 mg PO Q8H PRN Pain 12/22/22 08/18/23 History (Tylenol Extra Strength) apixaban 2.5 mg tablet (Eliquis) 2.5 mg PO BID #180 tabs 04/15/23 08/18/23 Rx clopidogrel 75 mg tablet (Plavix) 75 mg PO DAILY #90 tabs 04/15/23 08/18/23 Rx ferrous sulfate 325 mg (65 mg 325 mg PO DAILY 04/27/23 08/18/23 History iron) tablet,delayed release levothyroxine 25 mcg tablet 25 mcg PO DAILYBB 90 days #90 tabs 05/27/23 08/18/23 Rx (Synthroid) tamsulosin 0.4 mg capsule 0.4 mg PO DAILY #90 caps 06/14/23 08/18/23 Rx omeprazole 40 mg capsule,delayed 40 mg PO BID 90 days #180 caps 06/23/23 08/18/23 Rx release gabapentin 100 mg capsule 100 mg PO BID #180 caps 08/05/23 08/18/23 Rx metoprolol tartrate 50 mg tablet 50 mg PO BID 08/13/23 08/18/23 History miconazole nitrate 2 % topical 1 applic EXT BID PRN as directed 08/13/23 08/18/23 History powder (Desenex) cephalexin 500 mg capsule 500 mg PO Q8H 4 days #12 caps 08/18/23 08/18/23 Rx miconazole nitrate 2 % topical 1 applic EXT BID Use twice per day 08/18/23 08/18/23 Rx powder (Desenex) until resolution of groin rash #85 grams oxybutynin chloride 5 mg 5 mg PO QAM #30 tabs 08/18/23 08/18/23 Rx tablet,extended release 24 hr Past Med/Surg History Medical History (Updated 08/18/23 @ 19:33 by Charlie Walsh MD) Chronic renal insufficiency, stage IV (severe) SCC (squamous cell carcinoma), penis Atrial fibrillation no cardioversions/ no pacer. treated with medication and follows with PCP GERD (gastroesophageal reflux disease) Stage 3b chronic kidney disease Acute UTI Pain in penis Lumbosacral facet joint syndrome Discogenic lumbar pain Acute metabolic encephalopathy UTI (urinary tract infection) Rib pain on left side Syncopal episodes COVID-19 Penile cancer KENROY (acute kidney injury) Unresponsiveness Anemia of chronic disease Diarrhea SCC (squamous cell carcinoma), penis Chronic pruritus Hypothyroidism Secondary hyperparathyroidism of renal origin Orthostatic hypotension Vitamin D deficiency SBO (small bowel obstruction) Small bowel obstruction due to adhesions Rectal bleed BRBPR (bright red blood per rectum) Dementia Hyperkalemia Acute cholecystitis Substernal chest pain resolved per pt Dysphagia "trouble keeping foods down" Fall walker and cane -- fall risk. Colitis Concussion Degenerative disc disease Osteoarthritis History of bleeding ulcers Diabetes mellitus, type 2 diet controlled Hx of migraines Hx of sleep apnea no device Balanoposthitis Phimosis DDD (degenerative disc disease), lumbar Atrial fibrillation (04/22/12) Peptic ulcer disease BPH w urinary obs/LUTS Anal fistula Fall LAST FALL 1 WEEK AGO Hypoglycemia Bradycardia Surgical History S/P laparoscopic cholecystectomy (09/17/20) Laparoscopic Cholecystectomy with Cholangiogram with akira drain 09/17/20 Dr. Atkinson Hx of circumcision 2 yrs ago H/O knee surgery "MULTIPLE KNEE SURGERIES"- R/L History of total shoulder replacement LEFT History of total knee replacement RT/LEFT History of esophagogastroduodenoscopy (EGD) History of colonoscopy History of tooth extraction Hx of transurethral resection of prostate H/O gastric bypass 2004 Family History Sister Family history of diabetes mellitus Social History Smoking Status: Never smoker Tobacco Type: Cigarettes Second Hand Exposure: No; Do You Dip or Chew Tobacco: No; Hx Alcohol Use: No Hx Substance Use: No Preferred Language: Gambian Communication Ability: Impaired Communication Ability Comment: can be forgetful Supplier Diversity Director Required: No Beliefs That Will Affect Care: None marital status: Current Living Situation: Spouse Current Living Situation Comment: At home with current occupational status: retired Feels Safe at Home: Yes Diet: regular caffeine: No Dental Care, Regularly: Yes Seatbelt Use: always Assistive Devices: Walker Physical Exam Physical Exam: General: A&O to name only. NAD. Cooperative. HEENT: Atraumatic, normocephalic. PERLAA Pulm: CTAB A&P. -wheezes, -rales, -rhonchi. Symmetrical chest rise. No increased work of breathing. No respiratory distress. Cardiac: irir, +sm. Radial pulses intact and symmetrical. Abdominal: Nontender, nondistended, soft. BS present. : R groin with bronze mild hyperpigmentation with no demarkated erythema. Ext: L hip ttp anteriorly and laterally. Externally rotated. Pt pulses intact bilat. sensation to soft touch in feet intact bilat Results & Data Results & Data Vital Signs (Past 12 Hours) Vital Signs Pulse Resp BP Pulse Ox O2 Del Method O2 Flow Rate 08/18/23 18:47 89 L Nasal Cannula 0 08/18/23 18:30 98 H 26 H 126/98 90 Nasal Cannula 1.5 08/18/23 18:05 89 25 H 123/77 90 Room Air 03/13/24 17:37 82 20 133/79 97 Room Air 08/18/23 17:30 83 25 H 120/80 93 Room Air 08/18/23 17:22 96 H 08/18/23 17:00 93 H 30 H 126/98 93 Room Air PG Care Time/CCT Total # of Minutes Spent Total Time Spent with Patient: Total time spent is greater than 50% in coordination of care (as documented) at patient's floor/unit and/or counseling patient: Coding Level of Care Code 84237 INT INP/OBS CARE 375MIN Diagnoses Hip fracture S72.009A Abnormal x-ray R93.89 Atrial fibrillation, unspecified type I48.91 Atrial fibrillation type: unspecified Diabetes mellitus, type 2 E11.9 Dementia without behavioral disturbance, unspecified dementia type F03.90 Dementia type: unspecified type Dementia behavioral disturbance: without behavioral disturbance Chronic renal insufficiency, stage IV (severe) N18.4 Sleep apnea G47.30 Cellulitis of groin L03.314 (3) Atrial fibrillation Atrial fibrillation type: unspecified Qualified Code(s): I48.91 - Unspecified atrial fibrillation (5) Dementia Dementia type: unspecified type Dementia behavioral disturbance: without behavioral disturbance Qualified Code(s): F03.90 - Unspecified dementia without behavioral disturbance
[2023-08-18 19:03] LABS: C Reactive Protein 10.1 mg/dl (0-0.5)
[2023-08-18 19:04] LABS: Influenza A virus by PCR Negative (Neg); Influenza B virus by PCR Negative (Neg); RSV by PCR Negative (Neg); SARS CoV2 RNA(COVID-19) Ceph NEGATIVE (Negative)
[2023-08-18 19:18] LABS: Appearance Urine Cloudy (Clear); Bacteria Urine Automated Negative (Negative); Bilirubin Urine Negative (Negative); Blood Urine 3+ (Negative); Color Urine Yellow; Epithelial Cell Urine Auto 0-5 /lpf (0-5); Glucose Urine UA Negative (Negative); Ketones Urine Trace (Negative); Leukocyte Esterase Urine 2+ (Negative); Nitrite Urine Negative (Negative); Protein Urine 2+ (Negative); Specific Gravity Urine 1.019 (1.000-1.030); Urobilinogen Urine Negative (Negative); WBC Urine Automated >30 /hpf (0-5); pH Urine 5.5 (4.5-7.5)
[2023-08-18 19:51] LABS: Cast Urine Automated 0 /lpf (0-5)
[2023-08-18] MEDS ORDERED: GLUCOSE 40% GEL 15 GM TUBE PO PRN (20:12)
[2023-08-18] MEDS ORDERED: GLUCAGON FOR INJ 1 MG VIAL SQ PRN (20:12)
[2023-08-18] MEDS ORDERED: DEXTROSE 50% 50 ML SYRINGE IV PRN (20:12)
[2023-08-18] MEDS ORDERED: GLUCOSE 10 TAB/TUBE PO PRN (20:12)
[2023-08-18] MEDS ORDERED: CARBOHYDRATES FOR HYPOGLYCEMIA PO PRN (20:12)
[2023-08-18] MEDS ORDERED: bisacodyL 10 MG SUPP PR PRN (21:41)
[2023-08-18] MEDS ORDERED: VANCOMYCIN CONSULT ACTIVE PRN (21:41)
[2023-08-18] MEDS ORDERED: NALOXONE HCL 0.4 MG/1 ML VIAL/CARP IV PRN (21:41)
[2023-08-18] MEDS: HYDROmorphone INJ 1 MG/ML SYRINGE IV PRN (21:51)
[2023-08-18] MEDS: INSULIN ASPART PER UNIT CHARGE SC SCH (21:59)
[2023-08-18] MEDS ORDERED: Nursing to Pharmacy Communication SCH ×2 (22:30→22:45)
[2023-08-18] MEDS: VANCOMYCIN HCL 2,000 MG in SODIUM CHLORIDE 0.9% 500 ML IV ONE (22:48)
[2023-08-18] MEDS: METOPROLOL TARTRATE 50 MG TAB PO SCH (22:48)
[2023-08-18] MEDS: LACTATED RINGER'S 1,000 ML IV SCH (22:48)
[2023-08-18] MEDS: PANTOprazole 40 MG TAB PO SCH (22:48)
[2023-08-18] MEDS: MAGNESIUM OXIDE 400 MG TAB PO SCH (22:49)
[2023-08-19] MEDS ORDERED: INSULIN ASPART PER UNIT CHARGE SC SCH
[2023-08-19] MEDS: LEVOTHYROXINE SODIUM 25 MCG TABLET PO SCH (04:53)
[2023-08-19 06:33] LABS: Calcium 8.1 mg/dl (8.6-10.3); Potassium 4.5 mmol/L (3.5-5.1)
[2023-08-19 06:38] LABS: BUN Creatinine Ratio 14.4 (10-20); Creatinine Clr Calc Pharmacy 30.4 ml/min; Est GFR (African American) 36.6 ml/min; Est GFR (Non-African American) 31.6 ml/min
[2023-08-19 07:02] LABS: Basophils # (auto) 0.01 K/uL (0.00-0.20); Basophils % (auto) 0.1 %; Eosinophils # (auto) 0.09 K/uL (0.00-0.50); Eosinophils % (auto) 1.3 %; Hematocrit (blood only) 31.7 % (42.0-52.0); Immature Granulocytes # (auto) 0.09 K/uL (0.01-0.20); Immature Granulocytes % (auto) 1.3 %; Lymphocytes # (auto) 1.31 K/uL (1.20-3.40); Lymphocytes % (auto) 19.3 %; Mean Corpuscular Hemoglobin 30.6 pg (25.0-34.0); Mean Corpuscular Hgb Conc 31.5 g/dL (32.0-36.0); Mean Corpuscular Volume 96.9 fL (80.0-100.0); Mean Platelet Volume 11.9 fL (9.4-12.4); Monocytes # (auto) 1.05 K/uL (0.11-0.59); Monocytes % (auto) 15.5 %; Neutrophils # (auto) 4.23 K/uL (1.40-6.50); Neutrophils % (auto) 62.5 %; Platelet Count 151 K/uL (130-400); RDW Coefficient of Variation 13.5 % (11.5-14.5); RDW Standard Deviation 48.5 fL (36.4-46.3); Red Blood Count 3.27 M/uL (4.70-6.10); White Blood Count 6.78 K/ul (4.8-10.8)
[2023-08-19] MEDS: TAMSULOSIN HCL 0.4 MG CAP PO SCH (08:51)
--- NOTE | 2023-08-19 10:36 | Orthopedic Consultation ---
Date of Service August 19, 2023 Assessment & Plan (1) Closed fracture of left hip: I had a long and detailed discussion today with the patient and his about his left proximal femur pathology with ample amount of time for the patient to ask any questions or state any concerns. All questions and concerns were answered to the patient and his satisfaction. At this point, he would like to proceed with surgical fixation of his proximal femur fracture with an intertrochanteric femoral nail. The risk, benefits, alternatives to TFN nail fixation were discussed and is entirely with ample amount of time for patient and to ask any questions or state any concerns. All questions and concerns were answered to the patient's satisfaction. The patient and his both elect to proceed with surgical intervention. Dr. Abebe will be the surgeon for this case. Remain n.p.o. today. Hold anticoagulation therapy. Will proceed with operative fixation later this morning/early afternoon. Primary service states patient is cleared for orthopedic surgical intervention. History of Present Illness Reason for Consultation: . Left proximal femur fracture Requesting Physician: . Attending Physician: Renetta Richards MD . Cl is an 88-year-old gentleman who presented to the emergency department yesterday evening after a fall. His who was present in the room with him today states that while he was at [facility] yesterday, he got confused and was trying to stand up out of his wheelchair. He managed to stand up and his had him pinned against the wall asking for assistance to get him back into the wheelchair. She states that she had to leave the room to get a nurse and when she arrived back, he was down on the ground in the bathroom. He was transferred to [facility] where an x-ray was completed and found that he had a proximal femur fracture. Today, he does respond to voice and touch but does not really articulate with me during the visit. His who is present in the room does state that they just gave him some pain medication prior to my arrival. She notes that she has all her come articulate any discomfort other than whenever he is moved. Denies any other concerns. He is on Eliquis with last dose being yesterday. Allergies Allergy/AdvReac Type Severity Reaction Status Date / Time iron [From Venofer] AdvReac Mild warm Verified 08/18/23 18:19 sensation/flushing, discomfort in arm in which it was i Home Medications Medication Instructions Recorded Confirmed Type calcium carbonate 500 mg-vitamin 1 tab PO QAM 12/18/19 08/18/23 History D3 5 mcg (200 unit) tablet (Calcium 500 + D) vitamin B complex 1 tab PO QAM 12/18/19 08/18/23 History Lactobacillus acidophilus 10 10,000 mmu cells PO QDD 01/18/21 08/18/23 History billion cell capsule (Probiotic) multivitamin 1 tab PO DAILY 08/01/22 08/18/23 History sodium bicarbonate 650 mg tablet 650 mg PO BID Stomach upset #180 08/10/22 08/18/23 Rx tabs calcitriol 0.25 mcg capsule 0.25 mcg PO DAILY #90 caps 10/06/22 08/18/23 Rx magnesium oxide 400 mg (241.3 mg 400 mg PO BID #180 tabs 11/23/22 08/18/23 Rx magnesium) tablet acetaminophen 500 mg tablet 1,000 mg PO Q8H PRN Pain 12/22/22 08/18/23 History (Tylenol Extra Strength) apixaban 2.5 mg tablet (Eliquis) 2.5 mg PO BID #180 tabs 04/15/23 08/18/23 Rx clopidogrel 75 mg tablet (Plavix) 75 mg PO DAILY #90 tabs 04/15/23 08/18/23 Rx ferrous sulfate 325 mg (65 mg 325 mg PO DAILY 04/27/23 08/18/23 History iron) tablet,delayed release levothyroxine 25 mcg tablet 25 mcg PO DAILYBB 90 days #90 tabs 05/27/23 08/18/23 Rx (Synthroid) tamsulosin 0.4 mg capsule 0.4 mg PO DAILY #90 caps 06/14/23 08/18/23 Rx omeprazole 40 mg capsule,delayed 40 mg PO BID 90 days #180 caps 06/23/23 08/18/23 Rx release gabapentin 100 mg capsule 100 mg PO BID #180 caps 08/05/23 08/18/23 Rx metoprolol tartrate 50 mg tablet 50 mg PO BID 08/13/23 08/18/23 History miconazole nitrate 2 % topical 1 applic EXT BID PRN as directed 08/13/23 08/18/23 History powder (Desenex) cephalexin 500 mg capsule 500 mg PO Q8H 4 days #12 caps 08/18/23 08/18/23 Rx miconazole nitrate 2 % topical 1 applic EXT BID Use twice per day 08/18/23 08/18/23 Rx powder (Desenex) until resolution of groin rash #85 grams oxybutynin chloride 5 mg 5 mg PO QAM #30 tabs 08/18/23 08/18/23 Rx tablet,extended release 24 hr Past Med/Surg History Medical History (Updated 08/18/23 @ 23:05 by Gabriel Quiroz DO) Chronic renal insufficiency, stage IV (severe) SCC (squamous cell carcinoma), penis Atrial fibrillation no cardioversions/ no pacer. treated with medication and follows with PCP GERD (gastroesophageal reflux disease) Stage 3b chronic kidney disease Acute UTI Pain in penis Lumbosacral facet joint syndrome Discogenic lumbar pain Acute metabolic encephalopathy UTI (urinary tract infection) Rib pain on left side Syncopal episodes COVID-19 Penile cancer KENROY (acute kidney injury) Unresponsiveness Anemia of chronic disease Diarrhea SCC (squamous cell carcinoma), penis Chronic pruritus Hypothyroidism Secondary hyperparathyroidism of renal origin Orthostatic hypotension Vitamin D deficiency SBO (small bowel obstruction) Small bowel obstruction due to adhesions Rectal bleed BRBPR (bright red blood per rectum) Dementia Hyperkalemia Acute cholecystitis Substernal chest pain resolved per pt Dysphagia "trouble keeping foods down" Fall walker and cane -- fall risk. Colitis Concussion Degenerative disc disease Osteoarthritis History of bleeding ulcers Diabetes mellitus, type 2 diet controlled Hx of migraines Hx of sleep apnea no device Balanoposthitis Phimosis DDD (degenerative disc disease), lumbar Atrial fibrillation (04/22/12) Peptic ulcer disease BPH w urinary obs/LUTS Anal fistula Fall LAST FALL 1 WEEK AGO Hypoglycemia Bradycardia Surgical History S/P laparoscopic cholecystectomy (09/17/20) Laparoscopic Cholecystectomy with Cholangiogram with akira drain 09/17/20 Dr. Atkinson Hx of circumcision 2 yrs ago H/O knee surgery "MULTIPLE KNEE SURGERIES"- R/L History of total shoulder replacement LEFT History of total knee replacement RT/LEFT History of esophagogastroduodenoscopy (EGD) History of colonoscopy History of tooth extraction Hx of transurethral resection of prostate H/O gastric bypass 2004 Family History Sister Family history of diabetes mellitus Social History Smoking Status: Never smoker Tobacco Type: Cigarettes Second Hand Exposure: No; Do You Dip or Chew Tobacco: No; Hx Alcohol Use: No Hx Substance Use: No Preferred Language: Japanese Communication Ability: Effective Communication Ability Comment: can be forgetful Public Interviewer Required: No Beliefs That Will Affect Care: None marital status: Current Living Situation: Spouse Current Living Situation Comment: At home with current occupational status: retired Other Information That Helps Us Care for You: No Feels Safe at Home: Yes Safety Concerns: Feels Safe At This Time Diet: regular caffeine: No Dental Care, Regularly: Yes Seatbelt Use: always Assistive Devices: Walker Review of Systems All systems reviewed & are unremarkable except as noted in HPI & below. Physical Exam . General: A&O to name only. NAD. Cooperative. HEENT: Atraumatic, normocephalic. PERLAA Pulm: CTAB A&P. -wheezes, -rales, -rhonchi. Symmetrical chest rise. No increased work of breathing. No respiratory distress. Cardiac: irir, +sm. Radial pulses intact and symmetrical. Abdominal: Nontender, nondistended, soft. BS present. Musculoskeletal On physical examination of the left lower extremity, his left lower extremity is shortened with external rotation. He does note some discomfort with direct palpation over the left hip. Limited range of motion and strength due to subjective discomfort. Intact gross motor and sensory function from knee, ankle, all 5 toes. Active plantarflexion and dorsiflexion. +2 DP and PT pulses. Less than 2-second capillary refill. Normal sensation. Neurovascular intact. Results & Data Results & Data Laboratory Results . Abnormal lab results 08/18/23 08/18/23 08/18/23 Range/Units 17:06 18:05 21:53 RBC 3.58 L (4.70-6.10) M/uL Hgb 10.9 L (14.0-18.0) g/dl Hct 34.5 L (42.0-52.0) % MCHC 31.6 L (32.0-36.0) g/dL RDW Std Deviation 47.7 H (36.4-46.3) fL Neut # (Auto) 6.79 H (1.40-6.50) K/uL Lymph # (Auto) 1.10 L (1.20-3.40) K/uL [place] # (Auto) 1.16 H (0.11-0.59) K/uL PT 12.4 H (9.0-12.0) Seconds Chloride (98-107) mmol/L BUN 29 H (6-23) mg/dl Creatinine 2.20 H (0.6-1.4) mg/dl Glucose 155 H (70-99(Fasting)) mg/dl POC Glucose 179 H (70-99) mg/dl Calcium (8.6-10.3) mg/dl ALT 5 L (7-52) U/L Alkaline Phosphatase 108 H (34-104) U/L C-Reactive Protein 10.10 H (0-0.5) mg/dl Albumin 2.9 L (3.4-5.0) gm/dl Albumin/Globulin Ratio 0.8 L (0.9-2) Procalcitonin 1.07 H (0-0.5) ng/ml Urine Appearance Cloudy A (Clear) Urine Protein 2+ H (Negative) Urine Ketones Trace H (Negative) Urine Blood 3+ H (Negative) Ur Leukocyte Esterase 2+ H (Negative) Urine WBC (Auto) >30 H (0-5) /hpf Urine RBC (Auto) 5-10 H (0-4) /hpf 08/18/23 08/19/23 08/19/23 Range/Units 23:59 03:49 05:48 RBC 3.27 L (4.70-6.10) M/uL Hgb 10.0 L (14.0-18.0) g/dl Hct 31.7 L (42.0-52.0) % MCHC 31.5 L (32.0-36.0) g/dL RDW Std Deviation 48.5 H (36.4-46.3) fL Neut # (Auto) (1.40-6.50) K/uL Lymph # (Auto) (1.20-3.40) K/uL [place] # (Auto) 1.05 H (0.11-0.59) K/uL PT (9.0-12.0) Seconds Chloride 109 H (98-107) mmol/L BUN 27 H (6-23) mg/dl Creatinine 1.87 H D (0.6-1.4) mg/dl Glucose 130 H (70-99(Fasting)) mg/dl POC Glucose 174 H 134 H (70-99) mg/dl Calcium 8.1 L (8.6-10.3) mg/dl ALT (7-52) U/L Alkaline Phosphatase (34-104) U/L C-Reactive Protein (0-0.5) mg/dl Albumin (3.4-5.0) gm/dl Albumin/Globulin Ratio (0.9-2) Procalcitonin (0-0.5) ng/ml Urine Appearance (Clear) Urine Protein (Negative) Urine Ketones (Negative) Urine Blood (Negative) Ur Leukocyte Esterase (Negative) Urine WBC (Auto) (0-5) /hpf Urine RBC (Auto) (0-4) /hpf 08/19/23 Range/Units 08:09 RBC (4.70-6.10) M/uL Hgb (14.0-18.0) g/dl Hct (42.0-52.0) % MCHC (32.0-36.0) g/dL RDW Std Deviation (36.4-46.3) fL Neut # (Auto) (1.40-6.50) K/uL Lymph # (Auto) (1.20-3.40) K/uL [place] # (Auto) (0.11-0.59) K/uL PT (9.0-12.0) Seconds Chloride (98-107) mmol/L BUN (6-23) mg/dl Creatinine (0.6-1.4) mg/dl Glucose (70-99(Fasting)) mg/dl POC Glucose 114 H (70-99) mg/dl Calcium (8.6-10.3) mg/dl ALT (7-52) U/L Alkaline Phosphatase (34-104) U/L C-Reactive Protein (0-0.5) mg/dl Albumin (3.4-5.0) gm/dl Albumin/Globulin Ratio (0.9-2) Procalcitonin (0-0.5) ng/ml Urine Appearance (Clear) Urine Protein (Negative) Urine Ketones (Negative) Urine Blood (Negative) Ur Leukocyte Esterase (Negative) Urine WBC (Auto) (0-5) /hpf Urine RBC (Auto) (0-4) /hpf Diagnostic Findings . Hip/Pelvis X-Ray 08/18/23 17:06 XR hip LT 2V w pelvis HISTORY: 88 years-old Male fall acute pelvic pain status post fall COMPARISON: CT 05/23/2023 TECHNIQUE: AP view of the pelvis with crosstable lateral view of the left hip FINDINGS: Demineralized appearance to the bones with moderate osteoarthritis of the hips. Arterial calcifications. There is an acute mildly displaced intratrochanteric left femoral fracture. IMPRESSION: Acute mildly displaced intertrochanteric left femoral fracture. ACT 112: Negative or not required by law. The above report was generated using voice recognition software. It may contain grammatical, syntax or spelling errors. Electronically signed by: Sixto Armenta M.D. 08/18/2023 6:13 PM Shoulder X-Ray 08/18/23 17:06 XR shoulder LT min 2V routine HISTORY: 88 years-old Male fall acute left shoulder pain status post fall COMPARISON: Chest radiograph of same day, graphs of the left shoulder 05/05/2023 TECHNIQUE: 3 views of the left shoulder FINDINGS: Reversed total joint arthroplasty appears unchanged from the prior study. There is a chronic corticated curvilinear bone fragment projected over the axillary recess. No acute fracture, dislocation or osseous erosion. IMPRESSION: 1. No acute fracture or dislocation. 2. Unchanged appearance of the reverse left shoulder total joint arthroplasty. ACT 112: Negative or not required by law. The above report was generated using voice recognition software. It may contain grammatical, syntax or spelling errors. Electronically signed by: Sixto Armenta M.D. 08/18/2023 6:14 PM PG Care Time/CCT Total # of Minutes Spent Total Time Spent with Patient: Total time spent is greater than 50% in coordination of care (as documented) at patient's floor/unit and/or counseling patient: Coding Level of Care Code 88281 IN/OBS CONSULT LVL 3,45M Diagnoses Closed fracture of left hip S72.002A Encounter type: initial encounter Additional Codes Fx Hip/Femur - Trochanteric inter-/arnoldo-/sub-: Trochanteric inter-/arnoldo-/sub- ([id number]) (1) Closed fracture of left hip Encounter type: initial encounter Qualified Code(s): S72.002A - Fracture of unspecified part of neck of left femur, initial encounter for closed fracture
[2023-08-19] MEDS ORDERED: LIDOCAINE 2% 2 ML VIAL/AMP(20MG/ML) INFIL ONE (12:16)
[2023-08-19] MEDS ORDERED: PROPOFOL IV EMULSION 10 MG/ML 20 ML VIAL IV ONE (12:16)
[2023-08-19] MEDS ORDERED: fentaNYL citrate PF 100 MCG/2 ML VIAL ONE ×2 (12:16→13:43)
[2023-08-19] MEDS ORDERED: ONDANSETRON INJ 2 MG/ML 2 ML VIAL ONE (12:16)
[2023-08-19] MEDS ORDERED: ePHEDrine sulfate 50 MG/5 ML SYR ONE (13:11)
[2023-08-19] MEDS ORDERED: PHENYLEPHRINE 100MCG/ML 10ML SYR IV ONE (13:11)
--- NOTE | 2023-08-19 13:15 | Anesthesiology Consultation ---
Date of Service August 19, 2023 Assessment & Plan Chart Review Chart Review: Acceptable Risk for Surgery and Patient NOT seen in Pre Admission Testing Consults Requested none ASA ASA4 Proposed Anesthesia Anesthesia Type: General Risk / Benefits Reviewed With: PT / POA / Parent / Guardian, Accepts Plan and Informed Consent Obtained History Surgery Operation Date: 08/19/23 09:00 Proposed Procedures p Left Hip Short Nail - Ean Abebe, Height/Weight Height: 5 ft 8 in Weight: 90.4 kg Allergies Allergy/AdvReac Type Severity Reaction Status Date / Time iron [From Venofer] AdvReac Mild warm Verified 08/18/23 18:19 sensation/flushing, discomfort in arm in which it was i Medications Home Medications Medication Instructions Recorded Confirmed Last Taken calcium carbonate 500 mg-vitamin 1 tab PO QAM 12/18/19 08/18/23 04/27/23 D3 5 mcg (200 unit) tablet (Calcium 500 + D) vitamin B complex 1 tab PO QAM 12/18/19 08/18/23 04/27/23 Lactobacillus acidophilus 10 10,000 mmu cells PO QDD 01/18/21 08/18/23 04/26/23 billion cell capsule (Probiotic) multivitamin 1 tab PO DAILY 08/01/22 08/18/23 04/27/23 sodium bicarbonate 650 mg tablet 650 mg PO BID Stomach upset #180 08/10/22 08/18/23 04/27/23 08:00 tabs calcitriol 0.25 mcg capsule 0.25 mcg PO DAILY #90 caps 10/06/22 08/18/23 04/27/23 magnesium oxide 400 mg (241.3 mg 400 mg PO BID #180 tabs 11/23/22 08/18/23 04/27/23 08:00 magnesium) tablet acetaminophen 500 mg tablet 1,000 mg PO Q8H PRN Pain 12/22/22 08/18/23 Unknown (Tylenol Extra Strength) apixaban 2.5 mg tablet (Eliquis) 2.5 mg PO BID #180 tabs 04/15/23 08/18/23 05/23/23 09:00 clopidogrel 75 mg tablet (Plavix) 75 mg PO DAILY #90 tabs 04/15/23 08/18/23 04/27/23 ferrous sulfate 325 mg (65 mg 325 mg PO DAILY 04/27/23 08/18/23 04/27/23 iron) tablet,delayed release levothyroxine 25 mcg tablet 25 mcg PO DAILYBB 90 days #90 tabs 05/27/23 08/18/23 Unknown (Synthroid) tamsulosin 0.4 mg capsule 0.4 mg PO DAILY #90 caps 06/14/23 08/18/23 Unknown omeprazole 40 mg capsule,delayed 40 mg PO BID 90 days #180 caps 06/23/23 08/18/23 Unknown release gabapentin 100 mg capsule 100 mg PO BID #180 caps 08/05/23 08/18/23 Unknown metoprolol tartrate 50 mg tablet 50 mg PO BID 08/13/23 08/18/23 Unknown miconazole nitrate 2 % topical 1 applic EXT BID PRN as directed 08/13/23 08/18/23 Unknown powder (Desenex) cephalexin 500 mg capsule 500 mg PO Q8H 4 days #12 caps 08/18/23 08/18/23 Unknown miconazole nitrate 2 % topical 1 applic EXT BID Use twice per day 08/18/23 08/18/23 Unknown powder (Desenex) until resolution of groin rash #85 grams oxybutynin chloride 5 mg 5 mg PO QAM #30 tabs 08/18/23 08/18/23 Unknown tablet,extended release 24 hr Active Medications Generic Name Dose Route Start Last Admin Trade Name Freq PRN Reason Stop Dose Admin Hydromorphone HCl 0.5 mg 08/18/23 21:41 08/19/23 08:54 Hydromorphone Inj 1 Mg/Ml Syringe IV 09/01/23 21:40 0.5 mg Q4H PRN Administration Severe Pain (7,8,9,10) on NRS Lactated Ringer's 1,000 mls @ 80 mls/hr 08/18/23 21:41 08/19/23 10:24 Lr IV 09/17/23 21:40 80 mls/hr .[id number] SHY Administration Insulin Aspart 0 units 08/19/23 00:00 08/19/23 12:15 Insulin Aspart Per Unit Charge SC 09/18/23 00:00 Not Given Q4H SHY Levothyroxine Sodium 25 mcg 08/19/23 06:30 08/19/23 04:53 Levothyroxine Sodium 25 Mcg Tablet PO 09/18/23 06:29 25 mcg DAILYBB SHY Administration Magnesium Oxide 400 mg 08/18/23 21:41 08/19/23 08:51 Magnesium Oxide 400 Mg Tab PO 09/17/23 21:40 400 mg BID SHY Administration Metoprolol Tartrate 50 mg 08/18/23 21:41 08/19/23 08:51 Metoprolol Tartrate 50 Mg Tab PO 09/17/23 21:40 50 mg BID SHY Administration Pantoprazole Sodium 40 mg 08/18/23 21:41 08/19/23 08:51 Pantoprazole 40 Mg Tab PO 09/17/23 21:40 40 mg BID SHY Administration Tamsulosin HCl 0.4 mg 08/19/23 09:00 08/19/23 08:51 Tamsulosin Hcl 0.4 Mg Cap PO 09/18/23 08:59 0.4 mg DAILY SHY Administration NPO Date Last Intake of Fluids: 08/18/23 Time Last Intake of Fluids: 12:00 Date Last Intake of Solids: 08/18/23 Time Last Intake of Solids: 12:00 Past Medical History Medical History Chronic renal insufficiency, stage IV (severe) SCC (squamous cell carcinoma), penis Atrial fibrillation no cardioversions/ no pacer. treated with medication and follows with PCP GERD (gastroesophageal reflux disease) Stage 3b chronic kidney disease Acute UTI Pain in penis Lumbosacral facet joint syndrome Discogenic lumbar pain Acute metabolic encephalopathy UTI (urinary tract infection) Rib pain on left side Syncopal episodes COVID-19 Penile cancer KENROY (acute kidney injury) Unresponsiveness Anemia of chronic disease Diarrhea SCC (squamous cell carcinoma), penis Chronic pruritus Hypothyroidism Secondary hyperparathyroidism of renal origin Orthostatic hypotension Vitamin D deficiency SBO (small bowel obstruction) Small bowel obstruction due to adhesions Rectal bleed BRBPR (bright red blood per rectum) Dementia Hyperkalemia Acute cholecystitis Substernal chest pain resolved per pt Dysphagia "trouble keeping foods down" Fall walker and cane -- fall risk. Colitis Concussion Degenerative disc disease Osteoarthritis History of bleeding ulcers Diabetes mellitus, type 2 diet controlled Hx of migraines Hx of sleep apnea no device Balanoposthitis Phimosis DDD (degenerative disc disease), lumbar Atrial fibrillation (04/22/12) Peptic ulcer disease BPH w urinary obs/LUTS Anal fistula Fall LAST FALL 1 WEEK AGO Hypoglycemia Bradycardia Exercise / Class Metabolic Activity IV < 2 Limit ADL/Bedbound Past Family History Family History Sister Family history of diabetes mellitus Past Surgical History Surgical History S/P laparoscopic cholecystectomy (09/17/20) Laparoscopic Cholecystectomy with Cholangiogram with akira drain 09/17/20 Dr. Atkinson Hx of circumcision 2 yrs ago H/O knee surgery "MULTIPLE KNEE SURGERIES"- R/L History of total shoulder replacement LEFT History of total knee replacement RT/LEFT History of esophagogastroduodenoscopy (EGD) History of colonoscopy History of tooth extraction Hx of transurethral resection of prostate H/O gastric bypass 2004 Past Anesthesia History No Hx of Anesthesia Complications and No Family Hx of Anesthesia Complications History of PONV No Hx of PONV and No Hx of Motion Sickness Social History Smoking Status: Never smoker tobacco type: cigarettes Do You Dip or Chew Tobacco: No Hx Alcohol Use: No Hx Substance Use: No substance use type: does not use Substance Use Type Other:: tramadol Last Used Substance: Days (ago) Last Used Substance Other:: 3 days ago Review of Systems ROS Unobtainable: All systems reviewed & are unremarkable except as noted in HPI & below Physical Exam Vital Signs Last Vital Signs Temp 36.9 C 08/19/23 12:06 Pulse 81 08/19/23 12:06 Resp 20 08/19/23 12:06 BP 115/68 08/19/23 12:06 Pulse Ox 90 08/19/23 12:06 O2 Del Method Room Air 08/19/23 12:06 O2 Flow Rate 2 08/18/23 21:23 ENMT Mouth: no TMJ abnormality Thyromental Distance: > or= 3.5 Finger Breadths Mallampati Class: II Neck normal visual inspection and trachea midline; neck extension not limited Respiratory normal respiratory effort Auscultation: lungs clear to auscultation bilaterally Cardiovascular Rate/Rhythm: regular rate and regular rhythm Heart Sounds: no murmur Musculoskeletal Spine: normal cervical ROM Extremities: full ROM of extremities Neurologic moves all extremities Psychiatric Orientation: alert and oriented x 3 Testing Laboratory Results 08/19/23 05:48 08/19/23 05:48 PT 12.4 Seconds (9.0-12.0) H 08/18/23 17:06 INR 1.1 (0.9-1.1) 08/18/23 17:06 APTT 31 Seconds (21-31) 08/18/23 17:06 Urine Color Yellow 08/18/23 18:05 Urine Appearance Cloudy (Clear) A 08/18/23 18:05 Urine pH 5.5 (4.5-7.5) 08/18/23 18:05 Ur Specific [place] 1.019 (1.000-1.030) 08/18/23 18:05 Urine Protein 2+ (Negative) H 08/18/23 18:05 Urine Glucose (UA) Negative (Negative) 08/18/23 18:05 Urine Ketones Trace (Negative) H 08/18/23 18:05 Urine Nitrite Negative (Negative) 08/18/23 18:05 Ur Leukocyte Esterase 2+ (Negative) H 08/18/23 18:05 Urine WBC (Auto) >30 /hpf (0-5) H 08/18/23 18:05 Urine RBC (Auto) 5-10 /hpf (0-4) H 08/18/23 18:05 U Hyaline Cast (Auto) 0 /lpf (0-5) 08/18/23 18:05 U Epithel Cells (Auto) 0-5 /lpf (0-5) 08/18/23 18:05 Urine Bacteria (Auto) Negative (Negative) 08/18/23 18:05 08/19/23 08/19/23 08/19/23 11:50 08:09 03:49 POC Glucose 140 H 114 H 134 H Electrocardiogram Date: 08/14/23 Atrial fibrillation Abnormal ECG When compared with ECG of 13-AUG-2023 19:01, HR has decreased by 30 bpm Otherwise no significant change Confirmed by Josue Pa ([id number]) on 08/15/2023 7:48:23 AM Echocardiogram Date: 04/28/23 EF: 55-60
[2023-08-19] MEDS ORDERED: ONDANSETRON INJ 2 MG/ML 2 ML VIAL IV PRN (13:31)
[2023-08-19] MEDS ORDERED: ATROPINE SULFATE 0.1 MG/ML 10ML SYR IV PRN (13:31)
[2023-08-19] MEDS ORDERED: ePHEDrine sulfate 50 MG/ML AMP IV PRN (13:31)
[2023-08-19] MEDS: BUPIVACAINE/EPINEPHRINE 0.5% MPF 1:200,000 30 ML VIAL ONE (13:48)
--- NOTE | 2023-08-19 13:51 | Operative Report ---
PG Post Operative Report Pre & Post Diagnosis Operation Date: 08/19/23 09:00 Pre-Op Diagnosis: Left intertrochanteric hip fracture Post-Op Diagnosis: Left intertrochanteric hip fracture I identified the patient and participated in the time-out.: Yes Procedure Operation Date: 08/19/23 09:00 Actual Procedures p Intramedullary Nail Fixation of Left Hip(Left) - Ean Abebe DO Surgeon Ean Abebe DO Retail Maintenance Technician Ean Arias PA-C Estimated Blood Loss 30 Findings Consistent with Post-Op Diagnosis Specimens None Description of Procedure On August 19, 2023 Cl was brought down from his hospital room to the preoperative holding area. The operative extremity was identified and signed. He was given a preoperative antibiotic. He was taken back to the operative room and put under general anesthesia on the hospital bed. He was then transferred to a fracture table. The left hip was then prepped and draped in sterile fash ion. A timeout was done. The patient and the operative extremity was properly identified. Orthogonal fluoroscopic images were used to help reduce the fracture. Once the fracture was reduced, a longitudinal incision was made just superior to the greater trochanter. Dissection was taken down through the fascia. A guidepin was then placed at the tip of the greater trochanter and advanced down the center of the femoral canal. Appropriate placement was checked on orthogonal fluoroscopic images. A Synthe[employer] short 12 mm TFN nail was then impacted into place. Appropriate placement was checked on fluoroscopy. A lateral incision was made for the helical blade. A cannula was advanced to the lateral femur. A guidepin was placed in the center center position of the femoral head. The lateral cortex was then drilled. A 105 mm helical blade was then drilled. The helical blade was then impacted into place. The setscrew was locked. A single distal locking screw was placed. The outrigger was then removed. The wounds were then irrigated. The fascia was closed with #1 Vicryl. Skin was closed with 2-0 Vicryl and barbara. He was then placed in a soft dressing. He was then extubated and transferred back to the hospital bed. He was taken to the postanesthesia care unit in stable condition. He tolerated the procedure well. Ean Arias PA-C, was present for the entire procedure. He was critical for patient positioning, prepping, draping, retraction exposure, wound closure and application of sterile dressing. I attest to the content of the Intraoperative Record and any orders documented therein. Any exceptions are noted below.
--- NOTE | 2023-08-19 14:09 | Fluoroscopy Report ---
FL hip LT 2-3V CLINICAL HISTORY: LT TROCH NAIL COMPARISON STUDY: Pelvis and left hip radiographs August 18, 2023. FLUOROSCOPY TIME: 46 seconds. Ka, r: 11.98 mGy FLUOROSCOPIC IMAGES: 2 FINDINGS: Fluoroscopy was provided during open reduction and internal fixation of the intertrochanter ic fracture of the left femur with trochanteric nail. Expected alignment is noted. There are no unexp ected radiopaque bodies. IMPRESSION: Fluoroscopy provided during open reduction and internal fixation of the intertrochanteri c fracture of the left femur. ACT 112: Negative or not required by law. Electronically signed by: Emiliano Meier M.D. 08/19/2023 2:08 PM
[2023-08-19] MEDS: fentaNYL citrate PF 100 MCG/2 ML VIAL IV PRN (14:28)
--- NOTE | 2023-08-19 16:18 | Anesthesiology Progress Note ---
Date of Service August 19, 2023 Anesthesia Post Procedure Vital Signs Vital Signs: Temp Pulse Pulse Pulse Resp BP BP 08/19/23 15:02 118/82 08/19/23 15:02 98 H 25 H 08/19/23 15:00 08/19/23 14:59 123/72 08/19/23 14:59 08/19/23 14:58 08/19/23 14:30 102 H 15 126/73 08/19/23 14:20 111 H 20 116/79 08/19/23 14:10 106 H 23 123/67 08/19/23 13:59 36.7 C 104 H 20 116/72 08/19/23 12:06 36.9 C 81 20 115/68 08/19/23 11:52 82 23 117/76 08/19/23 08:00 77 08/19/23 08:00 36.6 C 88 20 100/72 08/19/23 03:03 36.4 C L 66 22 127/93 08/18/23 22:10 101 H 08/18/23 21:50 08/18/23 21:23 08/18/23 21:00 130 H 23 120/95 08/18/23 20:30 110 H 20 127/77 08/18/23 20:00 120 H 23 133/88 08/18/23 19:44 106 H 20 120/79 08/18/23 19:01 103 H 19 114/80 08/18/23 18:47 08/18/23 18:30 98 H 26 H 126/98 08/18/23 18:05 89 25 H 123/77 08/18/23 17:37 82 20 133/79 08/18/23 17:30 83 25 H 120/80 08/18/23 17:22 96 H 08/18/23 17:00 93 H 30 H 126/98 Pulse Ox O2 Del Method O2 Flow Rate 08/19/23 15:02 08/19/23 15:02 91 08/19/23 15:00 91 08/19/23 14:59 08/19/23 14:59 90 08/19/23 14:58 90 08/19/23 14:30 91 Nasal Cannula 2 08/19/23 14:20 90 Room Air 08/19/23 14:10 90 Oxymask 6 08/19/23 13:59 95 Oxymask 6 08/19/23 12:06 90 Room Air 08/19/23 11:52 91 Room Air 08/19/23 08:00 08/19/23 08:00 93 Room Air 08/19/23 03:03 96 Room Air 08/18/23 22:10 08/18/23 21:50 Room Air 08/18/23 21:23 Nasal Cannula 2 08/18/23 21:00 92 08/18/23 20:30 94 08/18/23 20:00 94 Room Air 08/18/23 19:44 96 08/18/23 19:01 96 Room Air 08/18/23 18:47 89 L Nasal Cannula 0 08/18/23 18:30 90 Nasal Cannula 1.5 08/18/23 18:05 90 Room Air 08/18/23 17:37 97 Room Air 08/18/23 17:30 93 Room Air 08/18/23 17:22 08/18/23 17:00 93 Room Air Pain Intensity Left Leg: Pain Intensity: 6 Transfer of Care Handoff Completed per policy Notes Mental Status: alert / awake / arousable Patient Amnestic to Procedure: Yes Nausea / Vomiting: adequately controlled Pain: adequately controlled Airway Patency, RR, SpO2: stable & adequate BP & HR: stable & adequate Hydration State: stable & adequate Anesthetic Complications: no major complications apparent and Pt Satisfied with anesthetic care
--- NOTE | 2023-08-19 16:21 | Hospitalist Progress Note ---
Date of Service August 19, 2023 Assessment & Plan (1) Hip fracture: Plan: Left hip fracture-now s/p repair, mechanical fall Eliquis held and can be resumed likely tomorrow-will discuss with orthopedics -Continue pain control, bowel regimen -PT/OT -Follow CBC, BMP (2) Abnormal x-ray: Plan: ?Developing pneumonia. This is also noted on CT cervical spine Without hypoxia, leukocytosis, respiratory symptoms. Was recently treated with a course of cefazolin, Rocephin, and then oral Keflex to complete a total 7-day course of antibiotics. He had 3 days remaining of this course on arrival he also has a history of MRSA and has not been on MRSA coverage. Sputum culture ordered, repeat nares is negative.-Discontinue vancomycin Patient does not appear septic, does not have a leukocytosis, tachypnea, or fever -Continue ceftriaxone for now which will cover for cellulitis and possible pneumonia but doubt this -Follow chest x-ray (3) Atrial fibrillation: Plan: History of A-fib-rates controlled Continue metoprolol 50 mg twice daily Eliquis held in the setting of hip fracture History of atypical chest pain, recent mild troponin elevation which is now resolved Patient did report chest pain after he fell earlier in the day, has no chest pain at time of admission. Denies exertional chest pain. Limited historian Was seen by interventional cardiology 06/2023. Poor candidate for catheterization and recommended only to pursue this if he had clear evidence of acute CA/shock, persistent VT. As such stress testing was deferred at that time. Patient was continued on metoprolol, Plavix, Eliquis. No need for cardiology consultation-canceled EKG without ischemic changes Medically optimized and should proceed with surgery (4) Diabetes mellitus, type 2: Plan: DM2 Well-controlled diet controlled at home SSI ordered on admission goal [id number] History of TIA Plavix temporarily held. Denies history of cardiac or carotid stents. Resume Plavix when okay with orthopedics (5) Dementia: Plan: noted Supportive care (6) Chronic renal insufficiency, stage IV (severe): Plan: Acute kidney injury on CKD 3 Creatinine 2.2 on admission, upper range of patient's normal -Received IV fluids and now down to 1.8 -Continue IV fluids overnight likely stop in the morning Renally dose medications, trend BMP daily (7) Sleep apnea: Plan: cpap qhs (8) Cellulitis of groin: Plan: Recent cellulitis with admission-seems to be improving -No signs of worsening cellulitis, continue ceftriaxone Plan DVT prophylaxis: SCDs, resume Eliquis when able to from surgical standpoint Disposition: Continued stay on PCU due to history of A-fib and chest pain CODE STATUS: Full code per Admission and Anticipated Discharge Date Admission Date: August 18, 2023 Subjective Patient seen after return from hip fracture, drowsy but just received pain medicine. Denies any other complaints. Telemetry with A-fib with rates in the 70s to 100s Physical Exam Constitutional: WD/WN, vitals as above Respiratory: normal respiratory effort, lungs clear to auscultation Cardiovascular: Rate/Rhythm: regular rate and + irregularly irregular Heart Sounds: no murmur Extremities: no edema Musculoskeletal: Extremities: + extremities abnormal to inspection (Left hip with dressing in place) Neurologic: not confused Psychiatric: Orientation: alert, oriented to person, oriented to place and cooperative Genitourinary: + penis abnormality (Status post penecto my, mild ready erythema left hemiscrotum) Results & Data Results & Data Vital Signs (Past 12 Hours) Vital Signs Temp Pulse Pulse Pulse Resp BP BP 08/19/23 15:02 118/82 08/19/23 15:02 98 H 25 H 08/19/23 15:00 08/19/23 14:59 123/72 08/19/23 14:59 08/19/23 14:58 08/19/23 14:30 102 H 15 126/73 08/19/23 14:20 111 H 20 116/79 08/19/23 14:10 106 H 23 123/67 08/19/23 13:59 36.7 C 104 H 20 116/72 08/19/23 12:06 36.9 C 81 20 115/68 08/19/23 11:52 82 23 117/76 08/19/23 08:00 77 08/19/23 08:00 36.6 C 88 20 100/72 Pulse Ox O2 Del Method O2 Flow Rate 08/19/23 15:02 08/19/23 15:02 91 08/19/23 15:00 91 08/19/23 14:59 08/19/23 14:59 90 08/19/23 14:58 90 08/19/23 14:30 91 Nasal Cannula 2 08/19/23 14:20 90 Room Air 08/19/23 14:10 90 Oxymask 6 08/19/23 13:59 95 Oxymask 6 08/19/23 12:06 90 Room Air 08/19/23 11:52 91 Room Air 08/19/23 08:00 08/19/23 08:00 93 Room Air Laboratory Results CBC, BMP reviewed PG Care Time/CCT Total # of Minutes Spent Total Time Spent with Patient: Total time spent is greater than 50% in coordination of care (as documented) at patient's floor/unit and/or counseling patient: Coding Level of Care Code 31713 SUB INP/OBS CARE 350MIN Diagnoses Hip fracture S72.009A Abnormal x-ray R93.89 Atrial fibrillation, unspecified type I48.91 Atrial fibrillation type: unspecified Diabetes mellitus, type 2 E11.9 Dementia without behavioral disturbance, unspecified dementia type F03.90 Dementia behavioral disturbance: without behavioral disturbance Dementia type: unspecified type Chronic renal insufficiency, stage IV (severe) N18.4 Sleep apnea G47.30 Cellulitis of groin L03.314 (3) Atrial fibrillation Atrial fibrillation type: unspecified Qualified Code(s): I48.91 - Unspecified atrial fibrillation (5) Dementia Dementia behavioral disturbance: without behavioral disturbance Dementia type: unspecified type Qualified Code(s): F03.90 - Unspecified dementia without behavioral disturbance
[2023-08-19] MEDS: ceFAZolin 2000MG 2,000 MG/15 ML SYR IV SCH (18:08)
[2023-08-19] MEDS ORDERED: Nursing to Pharmacy Communication SCH (18:45)
--- NOTE | 2023-08-19 19:40 | XRay Report ---
XR hip LT min 2V CLINICAL HISTORY: Post-Operative implant position COMPARISON: Left hip radiographs August 18, 2023. FINDINGS: Interval placement of a trochanteric nail for the intertrochanteric fracture of the left f emur is noted. Fracture alignment has markedly improved and appears anatomic. There are skin barbara. No unexpected radiopaque foreign bodies are present. IMPRESSION: Expected findings following internal fixation of the intertrochanteric fracture of the le ft femur. ACT 112: Negative or not required by law. Electronically signed by: Emiliano Meier M.D. 08/19/2023 7:38 PM
[2023-08-19] MEDS: cefTRIAXone SODIUM 2,000 MG in DEXTROSE 5 % MINI-B 50 ML IV SCH (20:40)
--- OUTSIDE RECORDS SUMMARY | 2023-08-19 20:49 | External Medical Summary | Continuity of Care Document ---
Author Name Unknown Organization [facility] Address [address] [place] [phone] Care Team Providers Care Conduit Cleaner Name Role Phone Pablo Hernandez Primary Care Physician [phone] Encounter [facility] [id number] Date(s): 08/12/23 - 08/13/[address] [phone] Discharge Disposition: Home or Self Care Attending Physician: MD Oscar, Oliver Stover Allergies, Adverse Reactions, Alerts No Known Allergies Functional Status 08/13/23 Neurological Symptoms Weakness ADLs Moderate assistance Facial Symmetry Symmetric Swallowing Difficulty None Level of Consciousness Neuro Alert Hallucinations Present None History of Fall in Last 3 Months Blackburn N o Presence of Secondary Diagnosis Blackburn Ye s Use of Ambulatory Aid Blackburn Crutches/can e/walker IV/Heparin Lock Fall Risk Blackburn Yes Gait/Transferring Fall Risk Blackburn Weak Mental Status Fall Risk Blackburn Oriented t o own ability Blackburn Fall Risk Score 60 Blackburn Fall Risk High risk Speech Pattern Clear 08/12/23 Gait Unable to assess Medications acetaminophen 500 mg oral tablet Start: [...] PO, bid Start Date: 12/01/22 Status: Ordered metoprolol tartrate 50 mg, tablet, PO, 08/13/23 9:00:00 EST, 08/13/23 9:00:00 EST, 08/12/23 19:20:00 EST Start Date: 08/13/23 Stop Date: 08/13/23 Status: Completed Metoprolol Tartrate 50 mg oral tablet Start: 05/15/21 11:03:00 EST, 1 tab, PO, bid Start Date: 05/15/21 Status: Ordered multivitamin Start: 05/15/21 11:05:00 EST, 1 tab, PO, Daily Start Date: 05/15/21 Status: Ordered omeprazole 40 mg oral delayed [...] PO, Daily Start Date: 09/18/22 Status: Ordered Mental Status 08/12/23 Communication Barrier Present No Problem List Condition Confirmation Course Effective Dates [...] of Service: June 23, 2022 13:51 EST Procedures Procedure Date Related Diagnosis Body Site [...] 9bilateral knees a total of 9 times Vital Signs Most recent to oldest [Reference Range]: 1 2 3 Height 177 cm (08/12/23 2:06 PM) Patient Weight 92.9 kg (08/12/23 2:06 PM) Body Mass Index 29.65 kg/m2 (08/12/23 2:06 PM) Temperature [36.5-37.9 DegC] 36.4 DegC *LOW* (08/13/23 4:43 AM) 36.4 DegC *LOW* (08/12/23 10:14 PM) 36 DegC *LOW* (08/12/23 7:32 PM) Heart Rate 103 bpm (08/13/23 10:40 AM) 109 bpm (08/13/23 10:11 AM) 108 bpm (08/13/23 4:43 AM) Respiratory Rate 6 br/min (08/13/23 4:43 AM) 18 br/min (08/12/23 10:14 PM) 24 br/min (08/12/23 8:30 PM) Blood Pressure 121/57mmHg (08/13/23 10:11 AM) 117/87mmHg (08/13/23 4:43 AM) 114/64mmHg (08/12/23 10:14 PM) Mean Blood Pressure 76 mmHg (08/13/23 10:11 AM) 95 mmHg (08/13/23 4:43 AM) 75 mmHg (08/12/23 10:14 PM) Cuff Pulse Pressure 64 mmHg (08/13/23 10:11 AM) 30 mmHg (08/13/23 4:43 AM) 50 mmHg (08/12/23 10:14 PM) BP Location # 1 Left Arm (08/12/23 10:14 PM) Social History Social History Type Response Smoking Status Former Smoker, quit > 1 yr Sex Male History and physical note * MD Oscar, Oliver Stover: PERFORM Event Display: .HP Authored Date: [id number] Name:ANABELLE WILLIAMSON Patient Number:[id number] :1935 Date of Service:08/12/2023 I have seen and examined the patient. There are nochanges in the patients condition since the date of the original history and physical that might be significant for the planned course of treatment. Physical Exam Vitals & Measurements T:36.3C RR:16 BP:129/78 SpO2:100% Oxygen Therapy:Room air HT:177cm WT:92.9kg WT:92.900kg(Dosing) BMI:29.65 Problem List/Past Medical History Ongoing Afib Bleeding ulcer Dermatitis Lichen sclerosus of penis MRSA (methicillin resistant staph aureus) culture positive Penile cancer Pre-op exam Squamous cell carcinoma of penis Vertigo Procedure/Surgical History Mohs micrographic surgery| Service Date: 06/16/2022Shave biopsy| Service Date: 05/28/2022have biopsy| Service Date: 02/19/2022olonoscopy| Service Date: 12/13/2020sophagogastroduodenoscopy| Service Date: 12/13/2020sophagogastroduodenoscopy| Service Date: 08/07/2020ircumcisio n| Service Date: 2019Endoscopy| Service Date: 12/2013Shoulder replacement| Service Date: 05/2012Excess skin of abdomen| Service Date: 2006Gastric bypass operation| Service Date: 2004Knee replacement Medications Inpatient doxycycline, 200 mg, injection, IV, Infuse Over 2 HR, To OR, Infection Source Skin/Soft Tissue, Type of Therapy Empiric (try to send cultures first), Routine, 08/11/23 20:00:00 EST fluconazole, 200 mg= 100 mL, IV, To OR Lactated Ringers Injection 1,000 mL(LR 1,000 mL), 1000 mL, IV Fluid lidocaine topical(LMX 4 topical cream), 1 appl, topical, Pre Event, PRN Home acetaminophen(acetaminophen 500 mg oral tablet), 1000 mg= 2 tab, PO, q8h, PRN apixaban(Eliquis 2.5 mg oral tablet), 2.5 mg= 1 tab, PO, bid bifidobacterium-lactobacillus(Probiotic Formula), 1 cap, PO, Daily calcitriol(calcitriol 0.25 mcg oral capsule), 0.25 mcg= 1 cap, PO, Daily calcium-vitamin D(calcium-vitamin D extended release), 1 tab, PO, Daily clopidogrel(Plavix), 75 mg, PO, Daily gabapentin, 100 mg, PO, bid levothyroxine(levothyroxine 25 mcg (0.025 mg) oral tablet) magnesium oxide, 400 mg, PO, bid metoprolol(Metoprolol Tartrate 50 mg oral tablet), 50 mg= 1 tab, PO, bid multivitamin, 1 tab, PO, Daily multivitamin(Vitamin B Complex), See Instructions nystatin topical(nystatin 100,000 units/g topical cream), See Instructions omeprazole(omeprazole 40 mg oral delayed release capsule), 40 mg= 1 cap, PO, bid sodium bicarbonate(sodium bicarbonate 650 mg oral tablet), 650 mg= 1 tab, PO, bid tamSULOsin, 0.4 mg, PO, Daily Allergies NKA Social History Smoking Status Former Smoker, quit > 1 yr Electronic Signature on File CC: Pablo Hernandez, [place] [address] [address] [facility] [id number] * Electronically Reviewed/Signed by: Oliver Moore M.D. Author Signature Dt/Tm:08/12/2023 03:44 PM Department of Urology [facility] * MD Blue, Giana: MODIFY, PERFORM, SIGN, VERIFY Event Display: Anes H&P Authored Date: [id number] Patient: ANABELLE WILLIAMSON Age: 88 years Sex: Male : 1935 Associated Diagnoses: None Author: MD Mcarthur Zoulfira Preoperative Information Origination of H&P: SDU. Pre-Operative Diagnosis: Urinary incontinence . Anesthiesia Preop Info: Procedure: suprapubic catheter insertion Date: 08/12/23 17:20 Surgeons: MD Oscar, Oliver Stover Diagnosis: urinary incontinence . Reference Report Created By: 08/11/2023 11:32:00, ARMILA Yousif Kyle, By Chart review. History of Present Illness 88 y.o. male with complex pmhx, h/o penile cancer and urinary incontinence. Plan above Reviewed and updated 12/14/22 [facility] inhouse anesthesia H&P which was done prior to 12/15/22 partialpenectomy procedure Medical History Medical Devices: Medical Devices: none . Anesthesia History PONV: Denies. History of Motion Sickness: Denies. Patient Complications: Negative. Family History of Anesthesia Problems: Negative. 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 Symptoms: Denies SOB/CP. Medical History Cardiovascular: F/b Cardiology from different facility ([facility] cardiology Dr. Brink (reportedly stable last visit 06/2023)). Hypertension: Beta Gina, Usual home BP about 101/71, patient's states patient recently evaluated for hypotension, but this resolved, without intervention. Valves: Mild MR. Dysrhythmia: A-fib, Paroxysmal, Rate controlled, + beta gina, Anticoagulation, Eliquis. Medical Devices: None. Renal: CKD, Stage III (F/B PCP), Last GFR 33.4 (10/11/2022 labs), Last Creat 2.03 (10/11/2022 [facility] labs), BPH. Flomax. Urinary incontinence. Plan above. [...] Chronic LBP. Prior steroid injections. Gabapentin. F/B [facility] [place] chronic pain clinic Mild dementia/ memory recall [...] TKA, Left TSA. Patient Concerns: None. 07/16/23 [facility] vital signs: Ht: 172cm, Wt: 95kg, BMI: 32 Health Status Allergies: Allergic Reactions (Selected) NKA. Medications: Medication List (Selected) Prescriptions Prescribed nystatin 100,000 units/g topical cream: See Instructions, APPLY TOPICALLY TWICE DAILY FOR 14 DAYS, 15 g Documented Medications Documented Eliquis 2.5 mg oral tablet: 1 tab, PO, bid Metoprolol Tartrate 50 mg oral tablet: 1 tab, PO, bid Plavix: 75 mg, PO, Daily Probiotic Formula: 1 cap, PO, Daily Vitamin B Complex: See Instructions, 1 tab PO daily acetaminophen 500 mg oral tablet: 2 tab, PO, q8h, PRN: as needed for pain calcitriol 0.25 mcg oral capsule: 1 cap, PO, Daily calcium-vitamin D extended release: 1 tab, PO, Daily gabapentin: 100 mg, PO, bid levothyroxine 25 mcg (0.025 mg) oral tablet: TAKE 1 TABLET BY MOUTH ONCE DAILY magnesium oxide: 400 mg, PO, bid multivitamin: 1 tab, PO, Daily omeprazole 40 mg oral delayed release capsule: 1 cap, PO, bid sodium bicarbonate 650 mg oral tablet: 1 tab, PO, bid tamSULOsin: 0.4 mg, PO, Daily. Problem List: All Problems Afib / SNOMED CT 73095413 / Confirmed Bleeding ulcer / SNOMED CT 291193855 / Confirmed Dermatitis / SNOMED CT 217124059 / Confirmed Lichen sclerosus of penis / SNOMED CT 8942174349 / Confirmed MRSA (methicillin resistant staph aureus) culture positive / SNOMED CT 2416132105 / Confirmed Penile cancer / SNOMED CT 588553190 / Confirmed Pre-op exam / SNOMED CT 100999199 / Confirmed Squamous cell carcinoma of penis / SNOMED CT 4258603032 / Confirmed Vertigo / SNOMED CT 9805468278 / Confirmed. Histories Procedure History: Mohs micrographic surgery ([id number]) on 06/16/2022 at 87 Years. Shave biopsy ([id number]) on 05/28/2022 at 87 Years. Shave biopsy ([id number]) on 02/19/2022 at 86 Years. Comments: 02/19/2022 10:39 MELA Bolanos LPN, Edith L foreskin of penis Esophagogastroduodenoscopy ([id number]) on 12/13/2020 at 85 Years. Comments: 12/17/2020 14:54 MELA Gonzales LPN, Kimbra J Final Diagnosis: A. Colon, ascending, biopsy: No diagnostic abnormality B. Colon, sigmoid, biopsy: No diagnostic abnormality. Colonoscopy ([id number]) on 12/13/2020 at 85 Years. Comments: 01/01/2021 09:46 MELA Santiago LPN, Erin The examined portio nof the ileum was normal. Rednundant colon. Diverticulosis in the left colon. Prep overall good byt fair in places. The ascending colon and simoid colon biopsied to evaluate for microscopic coltis. Internal hemorrhoids. The examination was otherwise normal on direct and retroflexion views. Esophagogastroduodenoscopy ([id number]) on 08/07/2020 at 85 Years. Comments: 08/16/2020 14:56 HIEU Springer [employer], Karma No significant abnormalities. follow up as needed 08/07/2020 14:55 HIEU Shaffer MD, Ean Erazo possible increased LES pressure noted. 08/07/2020 14:48 HIEU Shaffer MD, Brian D EGD Gastrectomy with BI anastomosis, presbyesophagus, mid and distal esophagus biopsied, Circumcision ([id number]) in 2019 at 85 Years. Endoscopy ([id number]) in the month of 12/2013 at 78 Years. Shoulder replacement ([id number]) in the month of 05/2012 at 77 Years. Comments: 01/18/2014 10:24 Sarahy Kulkarni left Excess skin of abdomen ([id number]) in 2006 at 72 Years. Comments: 01/18/2014 10:23 Sarahy Kulkarni removed Gastric bypass operation ([id number]) in 2004 at 70 Years. Knee replacement ([id number]). Comments: 01/18/2014 10:24 Sarahy Kulkarni bilateral knees a total of 9 times. 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 Other Tobacco Use: Alcohol: Recreational Drugs: . Physical Examination VS/Measurements: Vital Signs 08/12/2023 14:45 EST Temperature 36.3 DegC LOW Temperature Route Temporal Respiratory Rate 16 br/min Systolic Blood Pressure 129 mmHg Diastolic Blood Pressure 78 mmHg Cuff Pulse Pressure 51 mmHg Pulse 96 Oxygen Therapy Room air SpO2 100 % , Weight 93 kg. General: Alert and oriented, Mild distress. Airway: Mallampati classification: II (soft palate, fauces, uvula visible). Distance: Hyomental distance ( 30-40 millimeters ). Mouth: Within normal limits, Dentures ( Full, Upper dentures, Lower dentures, Partial plate ), Teeth ( Within normal limits ). Respiratory: Lungs are clear to auscultation. Cardiovascular: Normal rate, a-fib. Anesthesiologist Assessment and Plan Problems: No previous anesthetic complications. ASA Classification: Class III. Anesthetic Plan: Anesthetic technique discussed: General anesthesia. Airway plan discussed: Laryngeal mask airway, Oral endotracheal tube. Risks discussed: Nausea-vomiting, Headache, Sore throat, Dental injury, Eye injury, Allergic reaction, Serious complications, Aspiration. Informed consent: Signed by family. History, Physical Exam, Assessment and Plan Completed: 08/12/2023 17:00:00, MD Mcarthur Zoulfira. Electronic Signature on File Electronically Reviewed/Signed by: Giana Mcarthur MD Author Signature Dt/Tm:08/12/2023 05:21 PM Department of Anesthesia [facility] Surgical operation note * MD Oscar, Oliver Stover: MODIFY MD Moore Roderick Keir: MODIFY Event Display: .Operative Report Authored Date: [id number] Name:ANABELLE WILLIAMSON Patient Number:[id number] :1935 Date of Service:08/12/2023 Preoperative Diagnosis Unspecified urinary incontinence Postoperative Diagnosis Unspecified urinary incontinence In Room Time 08/12/23 17:13:00 Operation CYSTOSCOPY WITH PERCUTANOUS SUPRAPUBIC T, suprapubic catheter insertion, cystoscopy, urethral dilation Surgeon(s) MD Moore Roderick Keir (Physician - Primary) Secret Code Expert(s) MD Diaz Jennifer Ann (Slide Maker) MD Hardin Zachary (Slide Maker) MD Diaz Jennifer Ann (Slide Maker) MD Hardin Zachary (Slide Maker) Anesthesia MD Mcarthur Zoulfira (Primary Attending) DO Cintron Bradley Scott (Resident) Estimated Blood Loss Minimal Urine Output Not applicable Lines, Tubes, Drains, Tourniquets 14 Frenchsuprapubic tube with 10 cc in the balloon Specimen(s) None Findings Dense urethral stricturerequiring dilatation Complications None Indication for Surgery Is an 88-year-old malewho developed severe incontinence following penectomy with likely development of urethral stricture. Would like to prevent continuous incontinence has developedsignificantskin fungal infections as well as cellulitisin the area of his genitals following this and likelyrelated to his incontinence. Technique Patient wasbrought to the roomprepped and draped in a sterile fashionplaced supine on the table. Timeout was performedof the procedure. Flexible 18 Ecuadorean cystoscope was attempted to be passedthrough the urethra and unable to be passed. A 16 Ecuadorean catheter was attempted be passed unable to. Wire was able to pass up to the bladder as well as a 5 Frenchopen-ended catheter withgood flow of urine. Aviva dilators from 10- 22 Frenchwere passed to the urethra in order to adequately dilatethe urethral stricturethat was foundin order to pass 18 Ecuadorean cystoscope. Entered the bladder and the bladder was drained due to severe debris found in thebladderfloating inthe urine. The bladder was filled to capacityand aneedle was passed through the abdomenintothe bladder without difficulty at the dome. 1% lidocaine without epinephrine was then passed through this needle as the needle was withdrawn through the abdomen. 11 blade was used to make a 1 cm skin incisionverticallyto finger length above thepubic bone and at the previously markedandanesthetized site. Car was passed into the bladder under direct visualization without issue. A 14 Ecuadorean catheter was passed through this and balloon was filled with 10 cc. Thecatheter wastreated into place using two 0 silk. This concluded the procedure patient tolerated procedure well and was transferred to PACUin stable condition. I, Dr. Oliver Moore, personally saw and examined the patient. I reviewed the pertinent labs andimaging studies as above and participated in the medical decision making for the patient. My assessment and recommendations are as follows: I agree with above Electronic Signature on File CC: Pablo Hernandez DO [place] [id number] [address] [facility] [id number] * Electronically Reviewed/Signed by: Malcolm Hardin MD Author Signature Dt/Tm:08/12/2023 06:52 PM Resident Department of Urology Electronically Reviewed/Signed by: Oliver Moore M.D. Cosigner Signature Dt/Tm: 08/13/2023 05:46 PM Department of Urology [facility] Discharge instructions * RACHAEL Segundo Michael: MODIFY RACHAEL Segundo Michael: MODIFY Event Display: Patient Discharge Instructions Authored Date: [id number] ANABELLE WILLIAMSON :1935 Visit Date:08/12/2023 Patient Discharge Instructions [facility] For medical concerns, call: . Date of Admission:08/12/2023 Date of Discharge:08/13/2023 Physician:MD Oscar, Oilver Stover Service:Urology Discharge Disposition: . Advance Directive:Health Care Power of Hazardous Material Specialist Reason for Hospitalization Suprapubic tube placement, Urethral Dilitation My Health Patient Portal: [employer] makes it easy for you to manage your health information online. My [employer] is a free service that provides you instant, secure access to your medical information anytime, anywhere. Sign in or set up your account today at [email or web address].[employer] Thank you for allowing us to assist you with your healthcare needs. If you need additional community resources, [employer] 211 can help at [email or web address]. 211 can assist you in connecting with social programs based on your unique needs and locations. 211 is an anonymous search that can help you locate resources for: Food, Housing, Transportation, Goods, Education and Healthcare. Medications What How Much When Instructions Next Dose Changed multivitamin 1 tab(s) by mouth Once daily Unchanged acetaminophen (acetaminophen 500 mg oral tablet) 2 tab(s) by mouth Every 8 hours as needed for as needed for pain Unchanged apixaban (Eliquis 2.5 mg oral tablet) 1 tab(s) by mouth 2 times daily Restart in 48 hours Unchanged bifidobacterium-lactobacillus (Probiotic Formula) 1 cap by mouth Once daily Unchanged calcitriol (calcitriol 0.25 mcg oral capsule) 1 cap by mouth Once daily Unchanged calcium-vitamin D (calcium-vitamin D extended release) 1 tab(s) by mouth Once daily Unchanged clopidogrel (Plavix) 75 Milligram by mouth Once daily Restart in 48 hours Unchanged gabapentin 100 Milligram by mouth 2 times daily Unchanged levothyroxine (levothyroxine 25 mcg (0.025 mg) oral tablet) TAKE 1 TABLET BY MOUTH ONCE DAILY Unchanged magnesium oxide 400 Milligram by mouth 2 times daily Unchanged metoprolol (Metoprolol Tartrate 50 mg oral tablet) 1 tab(s) by mouth 2 times daily Unchanged omeprazole (omeprazole 40 mg oral delayed release capsule) 1 cap by mouth 2 times daily Unchanged sodium bicarbonate (sodium bicarbonate 650 mg oral tablet) 1 tab(s) by mouth 2 times daily Unchanged tamSULOsin 0.4 Milligram by mouth Once daily What How Much When Comments Stop Taking nystatin topical (nystatin 100,000 units/ g topical cream) See instructions APPLY TOPICALLY TWICE DAILY FOR 14 DAYS Allergies NKA What to do next Instructions From Your Doctor UROLOGY CYSTOSCOPY POST-OP INSTRUCTIONS PROCEDURE: Suprapubic Tube placement, Urethral Dilitation ADDITIONAL PROCEDURES: None ACTIVITY: Resume regular activity as tolerated DIET: Resume your regular diet. Drink plenty of fluids to stay well-hydrated. ANTICOAGULATION: Resume home medications as above STENT/CATHETER PLAN: SP Tube placed PATIENT EDUCATION: Itis normal to seesome blood in the urine, especially with increased activity.Staying well-hydrated willhelp improve blood in the urine.If you notice persistent blood clots in the urine or the catheter stops draining urine, call immediately. CALL IF: Fever greater than 100.4 F, intractable nausea or vomiting, or bleeding more than what is to be expected Catheter or stent dislodged Catheter clogged or not draining Increasing or uncontrolled pain Lightheadedness For non-emergent questions, you may call the Urology Office at during weekdays, between the hours of 8 AM to 4 PM Forurgenturologic problems that require immediate attention, you may call the hospital operatorat and ask to speak with the Urology resident on-call If you are unable to contact your physician and you feel it is an emergency, call [phone] or go to the nearest Emergency Room Foremergent or very serious health-related issues, such as chest pain, shortness of breath, or sudden onset of the symptoms that brought you to the hospital, call [phone] or go to the nearest EmergencyRoom FOLLOW UP: You will be called within the next 5 business days regarding your next procedure or follow-up visit Please schedule appointment in 4-6 weeks with Urologist in [facility] for SP tube exchanges. OUR ADDRESS IS: [facility] [address] (3rd Floor) [address] [place] [address] , [place] [address] [place] [address] If you notice the following symptoms Contact our Careline at . If unable to contact your physician and you feel it is an emergency, go to the nearest Emergency Room or call 911 Diet Instructions as tolerated Activity Instructions as above Follow-Up Appointments The Following Services Have Been Arranged for You No Post-Acute Placement(s) Listed No Post-Acute Service(s) Listed Tests Pending None Procedures Performed SP tube placement 08/12/2023 Special Instructions Common Emergency Awareness Tips Call 911 immediately if: experiencing any of the warning signs and symptoms of stroke: B.E. F.A.S.T. Balance: is there trouble with walking or coordination Eyes: is there double vision or visual loss Face: Smile, do both sides of face move equally Arm: Raise arms, do both arms move equally Speech: Is speech slurred or inappropriate Time: Time is critical, call 911 immediately Heart Attack Signs Chest discomfort: Most heart attacks involve discomfort in the center of the chest and lasts more than a few minutes, or goes away and comes back. It can feel like uncomfortable pressure, squeezing, fullness or pain. Discomfort in upper body: Symptoms can include pain or discomfort in one or both arms, back, neck, jaw or stomach. Shortness of breath: With or without discomfort. Other signs: Breaking out in a cold sweat, nausea, or lightheaded. Remember, MINUTES DO MATTER. If you experience any of these heart attack warning signs, call to get immediate medical attention! Note * MD Joe, Karolina Fenton: PERFORM Event Display: Brief Operative Note Authored Date: BRIEF OPERATIVE NOTE Name: ANABELLE WILLIAMSON Patient Number: [id number] : 1935 Date of Service: 08/12/2023 Pre-op Diagnosis: Urinary Incontinence Post-op Diagnosis: Same Procedure: Flexible Cystoscopy, Percutaneous Suprapubic Catheter Placement Surgeon: Dr. Oliver Moore Assistants: Koko Hardin, Karolina Diaz Anesthesia: LMA, General Estimated Blood Loss: _ x Less than 50ml Drains: 14Fr suprapubic catheter Fluids: see anesthesia record Urinary Output: not documented, on field Condition: stable to PACU Complications: none Specimen: _ x None Findings: Prior penectomy with reconstruction, patients reconstructed urethral opening found to have severe stenosis requiring dilation with Aviva urethral dilators from 10Fr, 12Fr, 14Fr, 16Fr, 18Fr, 20Fr, and up to 22Fr before able to pass 17.5Fr flexible cystoscope over a sensor wire. Bladder filled and selected spot at dome for SPT placement. Local administered. 16Fr catheter unable to fit into applicator, 14Fr fit easily with return of irrigant/urine. Check one x Pharmacologic VTE prophylaxis not indicated _ Standard VTE prophylactic regimen ordered _ Pharmacologic VTE prophylaxis contraindicated due to increased risk of intraoperative and / or postoperative bleeding Check one _ No antibiotics indicated x Standard prophylactic antibiotic regimen ordered _ Antibiotic regimen changed due to concern for infection Electronic Signature on File Electronically Reviewed/Signed by: Karolina Diaz MD Author Signature Dt/Tm:08/12/2023 06:26 PM Resident Department of Urology [facility] Patient Care team information Care Team Personnel Name: Tati Lozoya Amy E Position: Pharmacist Member Role: Pharmacy - Lifetime Address: Address: [place] [address] [place] Name: MD Hermelindo, Cheko Martinez Position: Physician - Derm MOH Member Role: Lifetime Relationship Address: Address: [address] [place] [address] [place] [address] [place] Name: DO Hernandez William Price Position: Referring Member Role: Primary Care Provider Address: Address: [place] [address] [place] [facility] [place] [address] Care Team Related Persons Name: ARIELA WILLIAMSON Address: [address] [facility] [id number]"
[2023-08-19] MEDS: INSULIN ASPART PER UNIT CHARGE SC SCH ×2 (21:22)
[2023-08-19] MEDS: ACETAMINOPHEN 1,000 MG/100 ML VIAL IV PRN (23:32)
[2023-08-20] MEDS: HYDROmorphone INJ 0.5 MG/0.5 ML SYR IV PRN (05:03)
[2023-08-20 06:06] LABS: Basophils # (auto) 0.01 K/uL (0.00-0.20); Basophils % (auto) 0.1 %; Eosinophils # (auto) 0.12 K/uL (0.00-0.50); Eosinophils % (auto) 1.3 %; Hematocrit (blood only) 27.8 % (42.0-52.0); Hemoglobin 8.9 g/dl (14.0-18.0); Immature Granulocytes # (auto) 0.07 K/uL (0.01-0.20); Immature Granulocytes % (auto) 0.8 %; Lymphocytes # (auto) 1.35 K/uL (1.20-3.40); Lymphocytes % (auto) 14.7 %; Mean Corpuscular Hemoglobin 30.9 pg (25.0-34.0); Mean Corpuscular Volume 96.5 fL (80.0-100.0); Mean Platelet Volume 11.6 fL (9.4-12.4); Monocytes # (auto) 1.13 K/uL (0.11-0.59); Monocytes % (auto) 12.3 %; Neutrophils # (auto) 6.52 K/uL (1.40-6.50); Neutrophils % (auto) 70.8 %; Platelet Count 188 K/uL (130-400); RDW Coefficient of Variation 13.4 % (11.5-14.5); RDW Standard Deviation 47.5 fL (36.4-46.3); Red Blood Count 2.88 M/uL (4.70-6.10)
[2023-08-20 06:22] LABS: BUN Creatinine Ratio 13.1 (10-20); Calcium 7.7 mg/dl (8.6-10.3); Creatinine Clr Calc Pharmacy 29.2 ml/min; Est GFR (African American) 34.2 ml/min; Est GFR (Non-African American) 29.5 ml/min; Potassium 4.8 mmol/L (3.5-5.1)
--- NOTE | 2023-08-20 10:03 | Orthopedic Progress Note ---
Date of Service August 20, 2023 Assessment & Plan (1) Closed fracture of left hip: Overall, he is doing as expected postoperatively today. He notes that his pain is decently controlled and is better than it was yesterday. He will work with physical therapy later this morning to work on ambulation and range of motion exercises. He can be weightbearing as tolerated. He may restart his Eliquis from an orthopedic standpoint. Medical management per primary. He will likely require rehabilitation upon discharge. He will follow-up with orthopedics in 2 weeks post discharge for postsurgical management. Subjective . Dipti was seen at bedside this morning resting comfortably in no apparent distress eating his breakfast. He notes that he has mild discomfort to the left hip. He notes that most of his when he tries to move it at this point. He has yet to be out of bed since surgery yesterday. He is yet to work with physical therapy. He denies any other concerns today. Review of Systems All systems reviewed & are unremarkable except as noted in HPI & below. Physical Exam . On physical examination of the left hip, dressings are clean, dry, intact. His leg is out in full extension. He has active plantarflexion dorsiflexion to the left ankle. +2 DP and PT pulses. Less than 2-second capillary refill. Normal sensation. Neurovascular intact. Results & Data Results & Data Laboratory Results . Diagnostic Findings . Postoperative x-rays of the left hip show expected postoperative changes with an intertrochanteric femoral nail. PG Care Time/CCT Total # of Minutes Spent Total Time Spent with Patient: Total time spent is greater than 50% in coordination of care (as documented) at patient's floor/unit and/or counseling patient: Coding Level of Care Code 90124 Post Operative Follow-Up Diagnoses Closed fracture of left hip S72.002A Encounter type: initial encounter (1) Closed fracture of left hip Encounter type: initial encounter Qualified Code(s): S72.002A - Fracture of unspecified part of neck of left femur, initial encounter for closed fracture
--- NOTE | 2023-08-20 12:23 | Hospitalist Progress Note ---
Date of Service August 20, 2023 Assessment & Plan (1) Hip fracture: Plan: Age-related osteoporosis w current pathological fracture, left femur Left hip fracture-now s/p repair, mechanical fall Eliquis can be resumed today which will also function as DVT prophylaxis -Continue pain control-add on po oxycodone, scheduled tylenol, continue IV dialudid prn, continue bowel regimen -PT/OT -Follow CBC, BMP -with acute blood loss anemia on chronic anemia-hgb down to 8.9 from 10.0- monitor (2) Abnormal x-ray: Plan: ?Developing pneumonia on CXR. This is also noted on CT cervical spine Without hypoxia initially but now with some likely more from sedation/opioid pain meds/atelectasis;no leukocytosis, respiratory symptoms Was recently treated with a course of cefazolin, Rocephin, and then oral Keflex to complete a total 7-day course of antibiotics. He had 3 days remaining of this course on arrival With history of MRSA, but MRSA nasal swab here now negative-no Vanco needed No sepsis, tachypnea, or fever Continue ceftriaxone for now which will cover for cellulitis and possible pneumonia but doubt this Follow chest x-ray in AM (3) Atrial fibrillation: Plan: Rates controlled Continue metoprolol 50 mg twice daily Resume Eliquis History of atypical chest pain, recent mild troponin elevation last admission which is now resolved Patient did report chest pain after he fell earlier in the day, has no chest pain since then and denies exertional chest pain. Limited historian Was seen by interventional cardiology 06/2023. Poor candidate for catheterization and recommended only to pursue this if he had clear evidence of acute CO/shock, persistent VT. As such stress testing was deferred at that time . Patient was continued on metoprolol, Plavix, Eliquis. EKG without ischemic changes (4) Diabetes mellitus, type 2: Plan: Well-controlled diet controlled at home SSI ordered on admission goal [id number] History of TIA Resume Plavix (5) Dementia: Plan: noted Supportive care (6) Chronic renal insufficiency, stage IV (severe): Plan: Acute kidney injury on CKD 3--Creatinine 2.2 on admission, upper range of patient's normal Received IV fluids and now down to 1.8-1.9 Dc IV fluids Renally dose medications, trend BMP daily (7) Sleep apnea: Plan: cpap qhs (8) Cellulitis of groin: Plan: Recent cellulitis -continues to be improving -No signs of worsening cellulitis, continue ceftriaxone Plan DVT prophylaxis: Nate Hayes Disposition: Continued stay on PCU due to history of A-fib, hypoxia, but can likely downgrade tomorrow if remains stable/improved Full code discussed care with at bedside Admission and Anticipated Discharge Date Admission Date: August 18, 2023 Subjective Having pain in hip and also chronically in left shoulder. RN notes some confusion but he is clear with me currently. He reports some occasional SOB, no CO, no nausea, is eating, no BM yet Tele with Afib, rates 80-100s Physical Exam Constitutional: WD/WN, vitals as above Respiratory: normal respiratory effort, lungs clear to auscultation Cardiovascular: Rate/Rhythm: regular rate and + irregularly irregular Heart Sounds: no murmur Extremities: no edema Musculoskeletal: Extremities: + extremities abnormal to inspection (Left hip with dressing in place) Shoulder: + shoulder abnormal to inspection (left shoulder incisional scar, AC joint separation) Neurologic: not confused Psychiatric: Orientation: alert, oriented to person, oriented to place and cooperative Genitourinary: + penis abnormality (Status post penecto my, mild erythema and edema left hemiscrotum) Results & Data Results & Data Vital Signs (Past 12 Hours) Vital Signs Temp Pulse Pulse Resp BP Pulse Ox O2 Del Method 08/20/23 11:09 36.6 C 94 H 25 H 120/69 93 Room Air 08/20/23 07:42 36.9 C 97 H 25 H 119/75 95 Nasal Cannula 08/20/23 07:30 106 H 08/20/23 03:16 36.4 C L 90 23 105/59 L 91 Nasal Cannula O2 Flow Rate 08/20/23 11:09 08/20/23 07:42 08/20/23 07:30 08/20/23 03:16 2 PG Care Time/CCT Total # of Minutes Spent Total Time Spent with Patient: Total time spent is greater than 50% in coordination of care (as documented) at patient's floor/unit and/or counseling patient: Coding Level of Care Code 35560 SUB INP/OBS CARE 2/35MIN Diagnoses Hip fracture S72.009A Abnormal x-ray R93.89 Atrial fibrillation, unspecified type I48.91 Atrial fibrillation type: unspecified Diabetes mellitus, type 2 E11.9 Dementia without behavioral disturbance, unspecified dementia type F03.90 Dementia type: unspecified type Dementia behavioral disturbance: without behavioral disturbance Chronic renal insufficiency, stage IV (severe) N18.4 Sleep apnea G47.30 Cellulitis of groin L03.314 (3) Atrial fibrillation Atrial fibrillation type: unspecified Qualified Code(s): I48.91 - Unspecified atrial fibrillation (5) Dementia Dementia type: unspecified type Dementia behavioral disturbance: without behavioral disturbance Qualified Code(s): F03.90 - Unspecified dementia without behavioral disturbance
[2023-08-20] MEDS: ACETAMINOPHEN 500 MG TAB PO SCH (13:42)
[2023-08-20] MEDS: CLOPIDOGREL BISULFATE 75 MG TAB PO SCH (13:42)
[2023-08-20] MEDS: oxyCODONE HCL IR 5 MG TAB (IMMEDIATE RELEASE) PO PRN (16:55)
[2023-08-20] MEDS: GABAPENTIN 100 MG CAP PO SCH (21:48)
[2023-08-20] MEDS: APIXABAN 2.5 MG TAB PO SCH (21:49)
--- NOTE | 2023-08-21 06:17 | Electrocardiogram Report ---
Test Reason : Blood Pressure : / mmHG Vent. Rate : 096 BPM Atrial Rate : 000 BPM P-R Int : 000 ms QRS Dur : 082 ms QT Int : 316 ms P-R-T Axes : 000 -15 010 degrees QTc Int : 399 ms Atrial fibrillation Abnormal ECG When compared with ECG of 17-AUG-2023 17:42, No significant change was found Confirmed by Hardeep Hernandez ([id number]) on 08/21/2023 6:17:31 AM Referred By: REFERRED SELF Confirmed By:Hardeep Hernandez
[2023-08-21 06:30] LABS: Basophils # (auto) 0.04 K/uL (0.00-0.20); Basophils % (auto) 0.5 %; Eosinophils # (auto) 0.29 K/uL (0.00-0.50); Eosinophils % (auto) 3.3 %; Hematocrit (blood only) 27.6 % (42.0-52.0); Immature Granulocytes # (auto) 0.08 K/uL (0.01-0.20); Immature Granulocytes % (auto) 0.9 %; Lymphocytes # (auto) 1.56 K/uL (1.20-3.40); Lymphocytes % (auto) 17.6 %; Mean Corpuscular Hemoglobin 30.9 pg (25.0-34.0); Mean Corpuscular Hgb Conc 32.6 g/dL (32.0-36.0); Mean Corpuscular Volume 94.8 fL (80.0-100.0); Mean Platelet Volume 11.6 fL (9.4-12.4); Monocytes # (auto) 1.05 K/uL (0.11-0.59); Monocytes % (auto) 11.9 %; Neutrophils # (auto) 5.82 K/uL (1.40-6.50); Neutrophils % (auto) 65.8 %; Platelet Count 209 K/uL (130-400); RDW Coefficient of Variation 13.1 % (11.5-14.5); RDW Standard Deviation 45.6 fL (36.4-46.3); Red Blood Count 2.91 M/uL (4.70-6.10); White Blood Count 8.84 K/ul (4.8-10.8)
--- NOTE | 2023-08-21 06:30 | Electrocardiogram Report ---
Test Reason : Blood Pressure : / mmHG Vent. Rate : 082 BPM Atrial Rate : 058 BPM P-R Int : 000 ms QRS Dur : 078 ms QT Int : 368 ms P-R-T Axes : 000 -18 -06 degrees QTc Int : 429 ms Atrial fibrillation Inferior infarct , age undetermined Abnormal ECG When compared with ECG of 18-AUG-2023 17:06, Inferior infarct is now Present Confirmed by Hardeep Hernandez ([id number]) on 08/21/2023 6:29:31 AM Referred By: REFERRED SELF Confirmed By:Hardeep Hernandez
[2023-08-21 06:42] LABS: Calcium 7.8 mg/dl (8.6-10.3); Creatinine Clr Calc Pharmacy 27.9 ml/min; Est GFR (African American) 32.4 ml/min; Potassium 4.8 mmol/L (3.5-5.1)
[2023-08-21] MEDS: CALCITRIOL 0.25 MCG CAPSULE PO SCH (08:00)
[2023-08-21] MEDS: VITAMIN B COMPLEX TAB PO SCH (08:01)
[2023-08-21] MEDS: MULTIVITAMIN TAB PO SCH (08:01)
[2023-08-21] MEDS: FERROUS SULFATE 325 MG TAB PO SCH (08:01)
[2023-08-21] MEDS: CALCIUM 600MG + VIT D 400 IU TAB PO SCH (08:01)
--- NOTE | 2023-08-21 08:46 | XRay Report ---
XR chest 1V portable CLINICAL HISTORY: f/u R[facility] infiltrate, hypoxia COMPARISON STUDY: Chest radiograph August 18, 2023. Chest CT January 06, 2023. FINDINGS: Left shoulder arthroplasty is incidentally noted. There are trace bilateral pleural effusio ns. Cardiomediastinal silhouette is stable. There is no pneumothorax. The previously described right upper lobe airspace opacity has improved. Pulmonary vascular congestion is similar to prior exam. IMPRESSION: 1. Interval improvement in right upper lobe airspace opacity. 2. Cardiomegaly with stable pulmonary vascular congestion. Trace bilateral pleural effusions. ACT 112: Negative or not required by law. Electronically signed by: Emiliano Meier M.D. 08/21/2023 8:45 AM
[2023-08-21] MEDS: METOPROLOL TARTRATE 25 MG TAB PO ONE (09:46)
--- NOTE | 2023-08-21 17:02 | Hospitalist Progress Note ---
Date of Service August 21, 2023 Assessment & Plan (1) Hip fracture: Plan: Age-related osteoporosis w current pathological fracture, left femur Left hip fracture-now s/p repair, mechanical fall Eliquis resumed which will also function as DVT prophylaxis Continue pain control- po oxycodone, scheduled tylenol, continue IV dilaudid prn, continue bowel regimen PT/OT Follow CBC, BMP with acute blood loss anemia on chronic anemia-hgb down to 9.0 from 10.0-monitor (2) Abnormal x-ray: Plan: ?Developing pneumonia on CXR in R[facility]. This is also noted on CT cervical spine Without hypoxia except some post-op from sedation/opioid pain meds/atelectasis;no leukocytosis, respiratory symptoms--> now weaned off O2 Repeat CXR 08/20 with resolution pretty much of infiltrate-doubt true PNA No need for further antibiotics for PNA No sepsis, tachypnea, or fever (3) Contusion of left shoulder: Plan: Xrays of left shoulder and CXR without evidence of acute fracture of shoulder or clavicle or ribs Does have +TTP over chest wall-perhaps a muscle strain? Add lidocaine patch continue pain control will d/w Orthopedics (4) Atrial fibrillation: Plan: Rates elevated persistently, some possibly due to blood loss anemia but BPs are not low Increase metoprolol to 75 mg twice daily Continue Eliquis History of atypical chest pain, recent mild troponin elevation last admission which is now resolved Patient did report chest pain after he fell earlier in the day, has no chest pain since then and denies exertional chest pain. Limited historian Was seen by interventional cardiology 06/2023. Poor candidate for catheterization and recommended only to pursue this if he had clear evidence of acute CA/shock, persistent VT. As such stress testing was deferred at that time. Patient was continued on metoprolol, Plavix, Eliquis. EKG without ischemic changes (5) Diabetes mellitus, type 2: Plan: Well-controlled diet controlled at home SSI ordered on admission goal [id number] History of TIA Continue Plavix (6) Dementia: Plan: noted Supportive care (7) Chronic renal insufficiency, stage IV (severe): Plan: Acute kidney injury on CKD 3--Creatinine 2.2 on admission, upper range of patient's normal Received IV fluids and now down to 1.8-2.0 Renally dose medications, trend BMP daily (8) Sleep apnea: Plan: cpap qhs (9) Cellulitis of groin: Plan: Recent cellulitis -continues to be improving -No signs of worsening cellulitis, continue ceftriaxone Plan DVT prophylaxis: SCDs,Eliquis Disposition: Continued stay on PCU due to history of A-fib, hypoxia, but can likely downgrade tomorrow if remains stable/improved, rates better controlled Full code discussed care with at bedside Admission and Anticipated Discharge Date Admission Date: August 18, 2023 Subjective Pt continues to c/o pain in left shoulder but it is really more just beneath his left clavicle, exquisitely tender to the touch, worse with any movement of the shoulder. Hip is not bothering him. Tele with Afib, rates 120s through the night Physical Exam Constitutional: WD/WN, vitals as above Respiratory: normal respiratory effort, lungs clear to auscultation Cardiovascular: Rate/Rhythm: + tachycardic and + irregularly irregular Heart Sounds: no murmur Extremities: no edema Musculoskeletal: Extremities: + extremities abnormal to inspection (Left hip with dressing in place) Shoulder: + shoulder abnormal to inspection (left shoulder incisional scar, AC joint separation) +TTP over left anterior chest wall at mi d clavicular line no masses or bruising Neurologic: not confused Psychiatric: Orientation: alert, oriented to person, oriented to place and cooperative Results & Data Results & Data Vital Signs (Past 12 Hours) Vital Signs Temp Pulse Pulse Resp BP Pulse Ox O2 Del Method 08/21/23 15:35 36.8 C 90 23 107/68 94 Room Air 08/21/23 15:03 96 H 08/21/23 11:29 36.4 C L 86 28 H 113/62 95 Room Air 08/21/23 08:00 Room Air 08/21/23 07:53 36.6 C 114 H 20 112/67 92 Room Air 08/21/23 07:26 113 H Laboratory Results CBC, BMP, blood cxs reviewed Diagnostic Findings CXR image personally reviewed PG Care Time/CCT Total # of Minutes Spent Total Time Spent with Patient: Total time spent is greater than 50% in coordination of care (as documented) at patient's floor/unit and/or counseling patient: Coding Level of Care Code 58449 SUB INP/OBS CARE 3/50MIN Diagnoses Hip fracture S72.009A Abnormal x-ray R93.89 Contusion of left shoulder S40.012A Encounter type: initial encounter Atrial fibrillation, unspecified type I48.91 Atrial fibrillation type: unspecified Diabetes mellitus, type 2 E11.9 Dementia without behavioral disturbance, unspecified dementia type F03.90 Dementia type: unspecified type Dementia behavioral disturbance: without behavioral disturbance Chronic renal insufficiency, stage IV (severe) N18.4 Sleep apnea G47.30 Cellulitis of groin L03.314 (3) Contusion of left shoulder Encounter type: initial encounter Qualified Code(s): S40.012A - Contusion of left shoulder, initial encounter (4) Atrial fibrillation Atrial fibrillation type: unspecified Qualified Code(s): I48.91 - Unspecified atrial fibrillation (6) Dementia Dementia type: unspecified type Dementia behavioral disturbance: without behavioral disturbance Qualified Code(s): F03.90 - Unspecified dementia without behavioral disturbance
[2023-08-21] MEDS: LIDOCAINE 5% 1 PATCH TD STA (17:47)
[2023-08-21] MEDS: MELATONIN 3 MG TAB PO PRN (21:36)
[2023-08-21] MEDS: METOPROLOL TARTRATE 25 MG TAB PO SCH (21:37)
[2023-08-22] MEDS: MAGNESIUM HYDROXIDE SUSP 30 ML UDC PO PRN (00:38)
[2023-08-22 08:13] LABS: BUN Creatinine Ratio 17.1 (10-20); Calcium 7.8 mg/dl (8.6-10.3); Creatinine Clr Calc Pharmacy 27.5 ml/min; Est GFR (African American) 31.8 ml/min; Est GFR (Non-African American) 27.5 ml/min; Magnesium 2.1 mg/dl (1.7-2.4); Potassium 4.8 mmol/L (3.5-5.1)
[2023-08-22 08:39] LABS: Basophils # (auto) 0.03 K/uL (0.00-0.20); Basophils % (auto) 0.4 %; Eosinophils % (auto) 5.1 %; Hematocrit (blood only) 28.5 % (42.0-52.0); Hemoglobin 8.8 g/dl (14.0-18.0); Immature Granulocytes % (auto) 1.3 %; Lymphocytes # (auto) 1.31 K/uL (1.20-3.40); Lymphocytes % (auto) 16.6 %; Mean Corpuscular Hemoglobin 30.2 pg (25.0-34.0); Mean Corpuscular Hgb Conc 30.9 g/dL (32.0-36.0); Mean Corpuscular Volume 97.9 fL (80.0-100.0); Mean Platelet Volume 11.5 fL (9.4-12.4); Monocytes # (auto) 0.93 K/uL (0.11-0.59); Monocytes % (auto) 11.8 %; Neutrophils # (auto) 5.14 K/uL (1.40-6.50); Neutrophils % (auto) 64.8 %; Platelet Count 249 K/uL (130-400); RDW Coefficient of Variation 13.3 % (11.5-14.5); RDW Standard Deviation 47.8 fL (36.4-46.3); Red Blood Count 2.91 M/uL (4.70-6.10); White Blood Count 7.91 K/ul (4.8-10.8)
[2023-08-22] MEDS: HYDROmorphone INJ 0.5 MG/0.5 ML SYR IV PRN (12:40)
--- NOTE | 2023-08-22 13:07 | Hospitalist Progress Note ---
Date of Service August 22, 2023 Assessment & Plan (1) Hip fracture: Plan: Age-related osteoporosis w current pathological fracture, left femur Left hip fracture-now s/p repair, mechanical fall Eliquis for Afib will also function as DVT prophylaxis Continue pain control- po oxycodone, scheduled tylenol, continue IV dilaudid prn, continue bowel regimen PT/OT Follow CBC, BMP with acute blood loss anemia on chronic anemia-hgb down to 8.8 from 10.0-monitor but remains stable from previous day F/u with Ortho (2) Closed left clavicular fracture: Plan: Was c/o left shoulder pain since admission Xrays of left shoulder and CXR without evidence of acute fracture of shoulder or clavicle or ribs Does have +TTP over left chest wall and left clavicle CT Chest 08/21 confirms left clavicle fracture and bilateral anterior upper rib fractures, non displaced D/w Ortho who does not recommend sling unless provides comfort but pt declines this Add lidocaine patch-helping continue pain control (3) Ribs, multiple fractures: Plan: as above pain control (4) Abnormal x-ray: Plan: ?Developing pneumonia on CXR in RUL on admission but then resolved on repeat imaging. Without hypoxia except some post-op from sedation/opioid pain meds/atelectasis;n o leukocytosis, respiratory symptoms--> now weaned off O2 Repeat CXR 08/20 with resolution pretty much of infiltrate-doubt true PNA No need for further antibiotics for PNA No sepsis, tachypnea, or fever (5) Atrial fibrillation: Plan: Rates elevated persistently, some possibly due to blood loss anemia but BPs are not low Increased metoprolol to 75 mg twice daily and rates now better controlled, BPs soft Continue Eliquis Can downgrade to Ortho floor off tele History of atypical chest pain, recent mild troponin elevation last admission which is now resolved Patient did report chest pain after he fell earlier in the day, has no chest pain since then and denies exertional chest pain. Limited historian Was seen by interventional cardiology 06/2023. Poor candidate for catheterization and recommended only to pursue this if he had clear evidence of acute CT/shock, persistent VT. As such stress testing was deferred at that time. Patient was continued on metoprolol, Plavix, Eliquis. EKG without ischemic changes (6) Diabetes mellitus, type 2: Plan: Well-controlled diet controlled at home SSI ordered on admission goal [id number] History of TIA Continue Plavix (7) Chronic renal insufficiency, stage IV (severe): Plan: Acute kidney injury on CKD 3--Creatinine 2.2 on admission, upper range of patient's normal Received IV fluids and now down to 1.8-2.1, baseline Renally dose medications, trend BMP daily (8) Cellulitis of groin: Plan: Recent cellulitis -continues to be improving -No signs of worsening cellulitis, continue ceftriaxone x 2 more days (9) Dementia: Plan: noted Supportive care (10) Sleep apnea: Plan: unclear if on CPAP at home? Plan DVT prophylaxis: Nate Hayes Disposition: Continued stay but downgrade to med/Surg, awaiting rehab placement Full code discussed care with at bedside Admission and Anticipated Discharge Date Admission Date: August 18, 2023 Subjective Continues to have severe pain in left clavicle and left upper chest wall, worse than his hip pain. Otherwise Tele with better controlled rates in Afib 80-90s Physical Exam Constitutional: WD/WN, vitals as above Respiratory: normal respiratory effort, lungs clear to auscultation Cardiovascular: Rate/Rhythm: regular rate and + irregularly irregular Heart Sounds: no murmur Extremities: no edema Gastrointestinal (Abdomen): normal bowel sounds, soft, nontender, no hepatosplenomegaly Musculoskeletal: Extremities: + extremities abnormal to inspection (Left hip with dressing in place) Shoulder: + shoulder abnormal to inspection (left shoulder incisional scar, AC joint separation) +TTP exquisitely over left clavicle and left upper chest wall anteriorly, no masses or ecchymosis, no crepitus Neurologic: not confused Psychiatric: Orientation: alert, oriented to person, oriented to place and cooperative Genitourinary: + penis abnormality (Status post penecto my, mild erythema and edema left hemiscrotum) Results & Data Results & Data Vital Signs (Past 12 Hours) Vital Signs Temp Pulse Pulse Resp BP Pulse Ox O2 Del Method 08/22/23 11:26 36.9 C 74 18 92/55 L 91 Room Air 08/22/23 07:52 37.1 C 95 H 18 111/72 92 Room Air 08/22/23 07:15 94 H 08/22/23 04:58 36.6 C 99 H 19 128/82 95 Room Air Laboratory Results CBC, BMP, magnesium reviewed Diagnostic Findings CT CHest reviewed PG Care Time/CCT Total # of Minutes Spent Total Time Spent with Patient: Total time spent is greater than 50% in coordination of care (as documented) at patient's floor/unit and/or counseling patient: Coding Level of Care Code 16326 SUB INP/OBS CARE 3/50MIN Diagnoses Hip fracture S72.009A Closed left clavicular fracture S42.002A Ribs, multiple fractures S22.49XA Abnormal x-ray R93.89 Atrial fibrillation, unspecified type I48.91 Atrial fibrillation type: unspecified Diabetes mellitus, type 2 E11.9 Chronic renal insufficiency, stage IV (severe) N18.4 Cellulitis of groin L03.314 Dementia without behavioral disturbance, unspecified dementia type F03.90 Dementia behavioral disturbance: without behavioral disturbance Dementia type: unspecified type Sleep apnea G47.30 (5) Atrial fibrillation Atrial fibrillation type: unspecified Qualified Code(s): I48.91 - Unspecified atrial fibrillation (9) Dementia Dementia behavioral disturbance: without behavioral disturbance Dementia type: unspecified type Qualified Code(s): F03.90 - Unspecified dementia without behavioral disturbance
--- NOTE | 2023-08-22 14:07 | CT Scan Report ---
CT chest diagnostic wo con CT DOSE: 1062.51 mGy.cm HISTORY: left upper chest wall pain s/p fall,assess rib fx TECHNIQUE: Multiaxial CT images of the chest were performed without contrast. A dose lowering techni que was utilized adhering to the principles of ALARA. COMPARISON: Chest CTA 01/06/2023. FINDINGS: There is a nondisplaced midshaft left clavicle fracture. There is a left shoulder prosthesi s. There are acute to subacute left anterior fourth and fifth rib fractures. There are acute to subac [place] right anterior second through fourth rib fractures. There are few additional old, healed bilatera l rib fractures. Limited views the upper abdomen demonstrate normal liver, spleen, adrenal glands. Po stoperative changes within the stomach are partially visualized. The heart is borderline enlarged. Tr kim pericardial effusion. There are small bilateral pleural effusions. Normal esophagus. There is a t iny hiatus hernia. The ascending thoracic aorta measures up to 4.1 cm in diameter. This remains uncha nged. Severe coronary artery calcifications are noted. No mediastinal or hilar lymphadenopathy. The c entral airways are patent. No pneumothorax. No evidence for pulmonary edema. Linear densities within the right upper lobe may represent subsegmental atelectasis or scarring. Additional airspace opacitie s within the lungs posteriorly favor atelectasis. A superimposed pneumonia would be difficult to excl ude by imaging. IMPRESSION: 1. An acute nondisplaced midshaft left clavicle fracture. 2. Acute to subacute nondisplaced anterior rib fractures as described above. 3. No pneumothorax. 4. Small bilateral pleural effusions. 5. Additional findings as described above. ACT 112: Negative or not required by law. Electronically signed by: Oscar Phillips M.D. 08/22/2023 2:05 PM
[2023-08-23 07:46] LABS: Basophils # (auto) 0.04 K/uL (0.00-0.20); Basophils % (auto) 0.5 %; Eosinophils # (auto) 0.35 K/uL (0.00-0.50); Eosinophils % (auto) 4.8 %; Hematocrit (blood only) 28.7 % (42.0-52.0); Immature Granulocytes # (auto) 0.08 K/uL (0.01-0.20); Immature Granulocytes % (auto) 1.1 %; Lymphocytes # (auto) 1.05 K/uL (1.20-3.40); Lymphocytes % (auto) 14.3 %; Mean Corpuscular Hemoglobin 30.5 pg (25.0-34.0); Mean Corpuscular Hgb Conc 31.4 g/dL (32.0-36.0); Mean Corpuscular Volume 97.3 fL (80.0-100.0); Mean Platelet Volume 10.8 fL (9.4-12.4); Monocytes # (auto) 0.74 K/uL (0.11-0.59); Monocytes % (auto) 10.1 %; Neutrophils # (auto) 5.06 K/uL (1.40-6.50); Neutrophils % (auto) 69.2 %; Platelet Count 295 K/uL (130-400); RDW Coefficient of Variation 13.4 % (11.5-14.5); RDW Standard Deviation 47.9 fL (36.4-46.3); Red Blood Count 2.95 M/uL (4.70-6.10); White Blood Count 7.32 K/ul (4.8-10.8)
[2023-08-23 08:19] LABS: BUN Creatinine Ratio 17.8 (10-20); Calcium 8.2 mg/dl (8.6-10.3); Creatinine Clr Calc Pharmacy 27.7 ml/min; Est GFR (African American) 32.2 ml/min; Est GFR (Non-African American) 27.8 ml/min
--- NOTE | 2023-08-23 10:12 | Orthopedic Progress Note ---
Date of Service August 23, 2023 Assessment & Plan (1) Closed fracture of left hip: Overall, he is doing as expected postoperatively today. He notes that his pain is decently controlled and is better than it was yesterday. He will work with physical therapy later this morning to work on ambulation and range of motion exercises. He can be weightbearing as tolerated. Continued Eliquis. Medical management per primary. He will likely require rehabilitation upon discharge. Awaiting placement. He will follow-up with orthopedics in 2 weeks post discharge for postsurgical management. Subjective .Cl was seen at bedside this morning resting comfortably in no apparent distress eating his breakfast. He notes that he has mild discomfort to the left hip. He notes that most of his when he tries to move it at this point. He has worked with therapy but is only really been able to sit at bedside so far. He has yet to work with physical therapy. He denies any other concerns today. Review of Systems All systems reviewed & are unremarkable except as noted in HPI & below. Physical Exam . On physical examination of the left hip, dressings are clean, dry, intact. His leg is out in full extension. He has active plantarflexion dorsiflexion to the left ankle. +2 DP and PT pulses. Less than 2-second capillary refill. Normal sensation. Neurovascular intact. Results & Data Results & Data Laboratory Results . Diagnostic Findings . PG Care Time/CCT Total # of Minutes Spent Total Time Spent with Patient: Total time spent is greater than 50% in coordination of care (as documented) at patient's floor/unit and/or counseling patient: Coding Level of Care Code 13029 Post Operative Follow-Up Diagnoses Closed fracture of left hip S72.002A Encounter type: initial encounter (1) Closed fracture of left hip Encounter type: initial encounter Qualified Code(s): S72.002A - Fracture of unspecified part of neck of left femur, initial encounter for closed fracture
--- NOTE | 2023-08-23 15:50 | Hospitalist Progress Note ---
Date of Service August 23, 2023 Assessment & Plan (1) Hip fracture: Plan: Left hip fracture present on admission due to mechanical fall related to underlying osteoporosis, pathologic. Status post open reduction internal fixation with hip nailing. Postoperative day #4. Appreciate orthopedic consultation and recommendations. Continue OT and PT while hospitalized (2) Closed left clavicular fracture: Plan: Pain control measures. No surgical intervention necessary. Left arm sling while upright and ambulating. Multiple bilateral upper rib fractures, non displaced, suffered in the mechanical fall. Pain control measures. (3) Ribs, multiple fractures: Plan: Bilateral. Due to mechanical fall. Conservative measures with pain control (4) Abnormal x-ray: Plan: Follow-up chest x-ray is unremarkable. No overt pneumonia. (5) Atrial fibrillation: Plan: Metoprolol dosage uptitrated this admission for better rate control. Continue Eliquis. (6) Diabetes mellitus, type 2: Plan: ADA diet. Sliding scale coverage as needed. (7) Chronic kidney disease, stage III (moderate): Plan: Mild acute on chronic exacerbation on admission. Resolved with IV fluids. Monitor intake and output. Serial labs Plan [facility]ual discharge [facility] to [facility]. Hopefully tomorrow, August 23 Admission and Anticipated Discharge Date Admission Date: August 18, 2023 Subjective Alert and oriented. Left clavicle fracture pain with movement as expected. Postoperative day #4 after left hip fracture nailing. Anticipate return to [facility] when arrangements are finalized. Review of Systems 2 Review of Systems: Constitutional-no fever or chills ENT-no blurred vision, no double vision, no epistaxis, no sore throat Respiratory-no cough, no wheezing, no shortness of breath Cardiac-no palpitations, no chest pain, no syncope GI-no nausea, vomiting, diarrhea, melena, hematochezia -no urinary retention, no urinary incontinence, no dysuria, no hematuria Musculoskeletal-left clavicle fracture pain with movement. Skin-no bruising, no rashes, no pruritus Neuro-no isolated weakness, no paresthesia, no weakness Psych-no depression, no anxiety Physical Exam 2 Physical Exam: General-alert and oriented x3, no fever, no chills HEENT-head atraumatic and normocephalic, pupils equal and reactive to light, extraocular muscles intact Neck-no lymphadenopathy or thyromegaly, trachea midline Chest-clear to auscultation. No rales, wheezing or rhonchi Cardiac-regular rate and rhythm, normal S1 and S2, no murmurs Abdomen-normal bowel sounds, nontender, no hepatosplenomegaly Musculoskeletalleft clavicular area swelling and tenderness to palpation. Left hip surgical site unremarkable Extremities-no cyanosis, clubbing, or edema Neuro-cranial nerves II through XII intact, motor and sensory function within normal limits, strength symmetrical, no focal deficits Psych-normal affect, normal mood Results & Data Results & Data Vital Signs (Past 12 Hours) Vital Signs Temp Pulse Resp BP Pulse Ox O2 Del Method 08/23/23 14:34 36.7 C 97 H 16 97/60 L 95 Room Air 08/23/23 07:45 92 H 131/73 94 Room Air 08/23/23 07:25 Room Air 08/23/23 07:02 36.5 C 103 H 16 129/55 L 96 Room Air Laboratory Results 08/23/23 07:28 08/23/23 07:28 PG Care Time/CCT Total # of Minutes Spent Total Time Spent with Patient: Total time spent is greater than 50% in coordination of care (as documented) at patient's floor/unit and/or counseling patient: Coding Level of Care Code 76502 SUB INP/OBS CARE 3/50MIN Diagnoses Hip fracture S72.009A Closed left clavicular fracture S42.002A Ribs, multiple fractures S22.49XA Abnormal x-ray R93.89 Atrial fibrillation, unspecified type I48.91 Atrial fibrillation type: unspecified Diabetes mellitus, type 2 E11.9 Chronic kidney disease, stage III (moderate) N18.30 (5) Atrial fibrillation Atrial fibrillation type: unspecified Qualified Code(s): I48.91 - Unspecified atrial fibrillation
[2023-08-24 07:03] LABS: Basophils # (auto) 0.04 K/uL (0.00-0.20); Basophils % (auto) 0.5 %; Eosinophils # (auto) 0.24 K/uL (0.00-0.50); Eosinophils % (auto) 2.9 %; Hematocrit (blood only) 28.8 % (42.0-52.0); Immature Granulocytes # (auto) 0.05 K/uL (0.01-0.20); Immature Granulocytes % (auto) 0.6 %; Lymphocytes # (auto) 1.15 K/uL (1.20-3.40); Lymphocytes % (auto) 14.1 %; Mean Corpuscular Hgb Conc 31.3 g/dL (32.0-36.0); Mean Platelet Volume 11.1 fL (9.4-12.4); Monocytes # (auto) 0.78 K/uL (0.11-0.59); Monocytes % (auto) 9.6 %; Neutrophils # (auto) 5.88 K/uL (1.40-6.50); Neutrophils % (auto) 72.3 %; Platelet Count 323 K/uL (130-400); RDW Coefficient of Variation 13.2 % (11.5-14.5); RDW Standard Deviation 46.5 fL (36.4-46.3); White Blood Count 8.14 K/ul (4.8-10.8)
[2023-08-24 07:35] LABS: BUN Creatinine Ratio 18.1 (10-20); Calcium 8.2 mg/dl (8.6-10.3); Creatinine Clr Calc Pharmacy 26.9 ml/min; Est GFR (African American) 31.8 ml/min; Est GFR (Non-African American) 27.5 ml/min; Potassium 4.8 mmol/L (3.5-5.1)
[2023-08-24] MEDS: METOPROLOL TARTRATE 25 MG TAB PO STA (11:01)
--- NOTE | 2023-08-24 13:03 | Hospitalist Progress Note ---
Date of Service August 24, 2023 Assessment & Plan (1) Hip fracture: Plan: Left hip fracture present on admission due to mechanical fall related to underlying osteoporosis, pathologic. Status post open reduction internal fixation with hip nailing. Postoperative day #5. Appreciate orthopedic consultation and recommendations. Continue OT and PT while hospitalized (2) Closed left clavicular fracture: Plan: Pain control measures. No surgical intervention necessary. Left arm sling while upright and ambulating. Multiple bilateral upper rib fractures, non displaced, suffered in the mechanical fall. Pain control measures. (3) Ribs, multiple fractures: Plan: Bilateral. Due to mechanical fall. Conservative measures with pain control (4) Abnormal x-ray: Plan: Follow-up chest x-ray is unremarkable. No overt pneumonia. (5) Atrial fibrillation: Plan: Metoprolol dosage uptitrated again today, August 23, for better heart rate and blood pressure control. Continue Eliquis. (6) Diabetes mellitus, type 2: Plan: ADA diet. Sliding scale coverage as needed. (7) Chronic kidney disease, stage III (moderate): Plan: Mild acute on chronic exacerbation on admission. Resolved with IV fluids. Monitor intake and output. Serial labs Plan Eventual discharge [facility] to [facility]. Hopefully today, August 23 Admission and Anticipated Discharge Date Admission Date: August 18, 2023 Subjective Awake. No distress. Pleasantly confused due to dementia. is at the bedside. Review of Systems 2 Review of Systems: Constitutional-no fever or chills ENT-no blurred vision, no double vision, no epistaxis, no sore throat Respiratory-no cough, no wheezing, no shortness of breath Cardiac-no palpitations, no chest pain, no syncope GI-no nausea, vomiting, diarrhea, melena, hematochezia -no urinary retention, no urinary incontinence, no dysuria, no hematuria Musculoskeletal-left clavicle fracture pain with movement. Skin-no bruising, no rashes, no pruritus Neuro-no isolated weakness, no paresthesia, no weakness Psych-no depression, no anxiety Physical Exam 2 Physical Exam: General-alert and oriented x3, no fever, no chills HEENT-head atraumatic and normocephalic, pupils equal and reactive to light, extraocular muscles intact Neck-no lymphadenopathy or thyromegaly, trachea midline Chest-clear to auscultation. No rales, wheezing or rhonchi Cardiac-regular rate and rhythm, normal S1 and S2, no murmurs Abdomen-normal bowel sounds, nontender, no hepatosplenomegaly Musculoskeletalleft clavicular area swelling and tenderness to palpation. Left hip surgical site unremarkable Extremities-no cyanosis, clubbing, or edema Neuro-cranial nerves II through XII intact, motor and sensory function within normal limits, strength symmetrical, no focal deficits Psych-normal affect, normal mood Results & Data Results & Data Vital Signs (Past 12 Hours) Vital Signs Temp Pulse Resp BP BP Pulse Ox O2 Del Method 08/24/23 11:00 70 20 117/67 95 Room Air 08/24/23 07:50 37.0 C 105 H 18 126/72 94 Room Air 08/24/23 07:25 Room Air Laboratory Results 08/24/23 06:15 08/24/23 06:15 PG Care Time/CCT Total # of Minutes Spent Total Time Spent with Patient: Total time spent is greater than 50% in coordination of care (as documented) at patient's floor/unit and/or counseling patient: Coding Level of Care Code 66725 SUB INP/OBS CARE 3/50MIN Diagnoses Hip fracture S72.009A Closed left clavicular fracture S42.002A Ribs, multiple fractures S22.49XA Abnormal x-ray R93.89 Atrial fibrillation, unspecified type I48.91 Atrial fibrillation type: unspecified Diabetes mellitus, type 2 E11.9 Chronic kidney disease, stage III (moderate) N18.30 (5) Atrial fibrillation Atrial fibrillation type: unspecified Qualified Code(s): I48.91 - Unspecified atrial fibrillation
[2023-08-25 07:05] LABS: Basophils # (auto) 0.06 K/uL (0.00-0.20); Basophils % (auto) 0.7 %; Eosinophils # (auto) 0.27 K/uL (0.00-0.50); Eosinophils % (auto) 3.3 %; Hematocrit (blood only) 29.2 % (42.0-52.0); Hemoglobin 9.3 g/dl (14.0-18.0); Immature Granulocytes # (auto) 0.06 K/uL (0.01-0.20); Immature Granulocytes % (auto) 0.7 %; Lymphocytes # (auto) 1.16 K/uL (1.20-3.40); Lymphocytes % (auto) 14.1 %; Mean Corpuscular Hemoglobin 30.4 pg (25.0-34.0); Mean Corpuscular Hgb Conc 31.8 g/dL (32.0-36.0); Mean Corpuscular Volume 95.4 fL (80.0-100.0); Mean Platelet Volume 10.6 fL (9.4-12.4); Monocytes # (auto) 0.69 K/uL (0.11-0.59); Monocytes % (auto) 8.4 %; Neutrophils # (auto) 6.01 K/uL (1.40-6.50); Neutrophils % (auto) 72.8 %; Platelet Count 363 K/uL (130-400); RDW Coefficient of Variation 13.4 % (11.5-14.5); RDW Standard Deviation 46.3 fL (36.4-46.3); Red Blood Count 3.06 M/uL (4.70-6.10); White Blood Count 8.25 K/ul (4.8-10.8)
[2023-08-25 08:11] LABS: Calcium 8.2 mg/dl (8.6-10.3); Potassium 4.4 mmol/L (3.5-5.1)
[2023-08-25 08:16] LABS: BUN Creatinine Ratio 17.3 (10-20); Creatinine Clr Calc Pharmacy 25.7 ml/min; Est GFR (African American) 30.1 ml/min
--- NOTE | 2023-08-25 09:29 | Discharge Summary ---
Date of Service August 25, 2023 Admission HPI Per Admitting Provider While is an 88-year-old male presents from [facility] after discharge the same morning and subsequently had a fall. He had no lightheadedness, dizziness, syncope, or presyncope but did attempt to ambulate, and fell to his left side with subsequent hip pain. Patient was recently admitted 08/13/2023 - 08/18/2023 for sepsis suspected of urinary versus cellulitic source. Patient did have ambulatory dysfunction PT and OT recommended SNF, patient was discard to [facility]. On ER assessment he has no leukocytosis, remains anemic but with uptrending hemoglobin, has a creatinine around the upper limit of his normal range 2.2 on admission, and no potassium/sodium ibnormalities. Left shoulder x-ray is with no acute change, head CT is with no acute findings, chest x-ray suggestive of mild pulmonary edema and? Right upper lobe developing pneumonia Hip and pelvis x-ray shows an acute mildly displaced intertrochanteric left femoral fracture Cl seems at bedside with his present. His reports that he went to stand up out of the wheelchair at rehab but was too weak to walk and immediately fell to his left side striking his hip. He did not have any lightheadedness, dizziness, syncope, presyncope leading to this. He denies fever, chills, sweats. He has not had a cough or any sputum production Patient's does report that he was complaining of some chest pain earlier in the day, currently he denies chest pain and notes all the pain is in his left hip. He denies shortness of breath. Denies abdominal pain, nausea, vomiting. Denies orthopnea. He is able to wiggle his toes on command. History is somewhat limited by cognitive status, he is oriented to name only. Medical History: Reviewed Medications: Reviewed Surgical History: Reviewed Family history: Reviewed Allergies: Reviewed Social History: Reviewed Code Status: Full, discussed with patient's at bedside. Principal Diagnosis Mechanical fall, pathologic left hip fracture from underlying osteoporosis, bilateral rib fractures, left clavicular fracture, acute blood loss anemia while on systemic anticoagulation Discharge Exam General-alert and oriented x3, no fever, no chills HEENT-head atraumatic and normocephalic, pupils equal and reactive to light, extraocular muscles intact Neck-no lymphadenopathy or thyromegaly, trachea midline Chest-clear to auscultation. No rales, wheezing or rhonchi Cardiac-regular rate and rhythm, normal S1 and S2, no murmurs Abdomen-normal bowel sounds, nontender, no hepatosplenomegaly Musculoskeletalleft clavicular area swelling and tenderness to palpation. Left hip surgical site unremarkable Extremities-no cyanosis, clubbing, or edema Neuro-cranial nerves II through XII intact, motor and sensory function within normal limits, strength symmetrical, no focal deficits Psych-normal affect, normal mood Discharge Data Allergies Allergy/AdvReac Type Severity Reaction Status Date / Time iron [From Venofer] AdvReac Mild warm Verified 08/18/23 18:19 sensation/flushing, discomfort in arm in which it was i Consultations 08/18/23 18:36 ED Decision to Admit Stat 08/18/23 21:41 Consult Orthopedic Surgery Routine Procedures Performed Operation Date: 08/19/23 09:00 Actual Procedures p Intramedullary Nail Fixation of Left Hip(Left) - Ean Abebe DO Ordered Studies 08/18/23 17:06 CT cervical spine wo con Stat CT head/brain wo con Stat 08/19/23 FL hip LT 2-3V Routine 08/22/23 13:01 CT chest diagnostic wo con Routine Hospital Course (1) Hip fracture: Left hip fracture present on admission due to mechanical fall related to underlying osteoporosis, pathologic. Status post open reduction internal fixation with hip nailing. Postoperative day #6. Appreciate orthopedic consultation and recommendations. Continue OT and PT while hospitalized (2) Closed left clavicular fracture: Pain control measures. No surgical intervention necessary. Left arm sling while upright and ambulating. Multiple bilateral upper rib fractures, non displaced, suffered in the mechanical fall. Pain control measures. (3) Ribs, multiple fractures: Bilateral. Due to mechanical fall. Conservative measures with pain control (4) Abnormal x-ray: Follow-up chest x-ray is unremarkable. No overt pneumonia. (5) Atrial fibrillation: Metoprolol dosage uptitrated again on August 23, for better heart rate and blood pressure control. Improved. Continue low-dose Eliquis. (6) Diabetes mellitus, type 2: ADA diet. Sliding scale coverage as needed. (7) Chronic kidney disease, stage III (moderate): Mild acute on chronic exacerbation on admission. Resolved with IV fluids. Monitor intake and output. Serial labs Plan Discharge to [facility], August 24 Total Time Total Time Spent Total Time Spent (In Minutes): 45-minute Discharge Plan Discharge Items Patient Disposition: Transfer Alf Fac Reason For Visit: L HIP FXR Discharge Diagnosis: Mechanical fall, left hip fracture due to underlying osteoporosis, bilateral upper rib fractures, left clavicular fracture, acute blood loss anemia on systemic anticoagulation Activity: As commented below Activity Comment: Per orthopedic recommendations Non-emergency contact: Primary Care Provider Call non-emergency contact if: your symptoms worsen Follow-up/Referrals: Pablo Hernandez, [Primary Care Provider] - Diet: Regular and Heart Healthy Addtl Attending Provider Instructions: Consider stopping Eliquis due to advanced age and history of falling. Remove Lynch catheter when ambulating well Addtl Battery Container Tester Provider Instructions: ORTHOPEDIC INSTRUCTIONS Hip Fracture Activity and Therapy Recommendations: 1. You were shown a series of exercises in the hospital. Do these exercises three times each day if you are able. 2. Get up and walk several times each day if you are capable. Make sure you have assistance is needed. For the first four weeks, try not to stand or walk for more than one hour at a time. If you do stand or walk for more than one hour, you will not hurt anything, but your leg will likely swell. 3. As you feel comfortable, you may change from the walker or crutches to a cane and then to independent walking if you are able. Please be safe. Medications: 1. Narcotic You will likely be sent from the hospital with the narcotic pain medication that worked best throughout your stay. 2. Continue your Eliquis as prescribed. 3. Other medications may be given for specific circumstances. If you have any questions, please call the office at [phone]. 4. Resume previous home medications unless otherwise instructed TEDs/Elastic Stockings: The white elastic stockings help limit swelling and prevent blood clots from forming in your legs. The more you wear them, the more they work. Wear them for six weeks. Dressing Care: [place] can be open to air as long as the incisions are not draining. If the incisions are draining or if the barbara are getting caught on your clothes then please cover the barbara with dry gauze. Change the dressings as necessary to keep the incision as dry as possible Showering: You may shower 5 days from the day of surgery as long as the incisions are not draining. Do not soak the incision. Let soapy water run over the barbara and pat them dry. Things To Watch For: 1. Drainage from the incision site that occurs more than one week after your surgery. 2. Increased redness at the incision site. 3. Fever above 102 degrees Fahrenheit. 4. Unusual chest pain or shortness of breath. 5. Call [facility] at with any of the above problems Follow-Up Visit: Follow-up with Dr. Abebe's PA (Ean Arias) 2-3 weeks after your day of surgery. He will remove your barbara and answer any questions. If you have any additional questions or concerns, Dr Abebe is usually in the office at the same time and will be available Call the office to set up an appointment for a time that works for you. Pending Studies at Discharge: No Stand-Alone Forms: My [facility] Skilled Items Patient informed of condition?: Yes DNR: Yes Discharge Level of Care: Skilled Communicable Disease: No Discharge Prognosis: Stable Lines: None Urinary Catheter: Yes Medications and DC Order Prescriptions: Continued calcitriol 0.25 mcg capsule 0.25 mcg PO DAILY Qty: 90 3RF magnesium oxide 400 mg (241.3 mg magnesium) tablet 400 mg PO BID Qty: 180 3RF Eliquis 2.5 mg tablet 2.5 mg PO BID Qty: 180 3RF clopidogrel [Plavix] 75 mg tablet 75 mg PO DAILY Qty: 90 3RF tamsulosin 0.4 mg capsule 0.4 mg PO DAILY Qty: 90 3RF omeprazole 40 mg capsule,delayed release(DR/EC) 40 mg PO BID 90 Days Qty: 180 3RF gabapentin 100 mg capsule 100 mg PO BID Qty: 180 3RF sodium bicarbonate 650 mg tablet 650 mg PO BID Qty: 180 3RF ferrous sulfate 325 mg (65 mg iron) tablet,delayed release (DR/EC) 325 mg PO DAILY Rx Instructions: purchase [id number]-[id number] levothyroxine [Synthroid] 25 mcg tablet 25 mcg PO DAILYBB 90 Days Qty: 90 3RF acetaminophen [Tylenol Extra Strength] 500 mg tablet 1,000 mg PO Q8H PRN (Reason: Pain) calcium carbonate-vitamin D3 [Calcium 500 + D] 500 mg(1,250mg) -200 unit tablet 1 tab PO QAM vitamin B complex Tablet 1 tab PO QAM Probiotic 10 billion cell Capsule 10,000 mmu cells PO QDD Rx Instructions: TAKE WITH EVENING MEAL multivitamin Tablet 1 tab PO DAILY metoprolol tartrate 50 mg tablet 50 mg PO BID miconazole nitrate [Desenex] 2 % powder 1 applic EXT BID PRN (Reason: as directed) miconazole nitrate [Desenex] 2 % Powder 1 applic EXT BID Qty: 85 1RF oxybutynin chloride 5 mg Tablet Extended Release 24hr 5 mg PO QAM Qty: 30 1RF cephalexin 500 mg capsule 500 mg PO Q8H 4 Days Qty: 12 0RF Rx Instructions: START 08/18/23 FOR 4 DAYS PER D/C FROM [facility] Discharge Orders: Discharge Order (Routine); Ordered 08/25/23 Ordered By: Jackson Alvarado Admission Data Admit Date/Time: 08/18/23 20:08 Attending Provider: Jackson Alvarado Admit Provider: Charlie Walsh Primary Care Provider: Pablo Hernandez [facility]; [facility] Walsh; Ean Abebe Coding Level of Care Code 73950 INP/OBS DISCH >30 MIN Diagnoses Hip fracture S72.009A Closed left clavicular fracture S42.002A Ribs, multiple fractures S22.49XA Abnormal x-ray R93.89 Atrial fibrillation, unspecified type I48.91 Atrial fibrillation type: unspecified Diabetes mellitus, type 2 E11.9 Chronic kidney disease, stage III (moderate) N18.30
--- NOTE | 2023-08-30 06:36 | Coding Query ---
CODING QUERY To promote full compliance with coding requirements relating to patient care, provider participation is requested in all cases of qa test lead uncertainty. Please assist us with the question(s) below: Coding Question(s): There is documentation starting on the H&P of, "? Developing pneumonia. This is also noted on CT spine", and, "Due to suspected developing pneumonia with history of MRSA positivity vancomycin has been ordered, patient has been continued on admission on Rocephin", and the 08/20 Progress Note documents, "Repeat CXR 08/20 with resolution pretty much of infiltrate-doubt true PNA No need for further antibiotics for PNA", and as of the Discharge Summary, there is documentation of, "Follow-up chest x-ray is unremarkable. No overt pneumonia". It is not clear if there was possible developing Pneumonia that resolved, or if the Pneumonia was completely ruled-out. Please specify below, in your clinical opinion, regarding Pneumonia: ( ) Possible Pneumonia that resolved was treated and/or monitored during this admission (x ) Pneumonia was completely ruled-out ( ) Other: Please Specify Physician's Response(s): Thank you Elizabeth Diana Principal Diagnosis: "that condition established after study, to be chiefly responsible for occasioning the admission of the patient to the hospital for care." Co-Existing Principal Diagnosis: "when two or more diagnoses equally meet the criteria for principal diagnosis as determined by the circumstances of admission, diagnostic work up, and/or therapy provided, and the Alphabetic Index, Tabular List, or another coding guideline does not provide sequencing direction, any one of the diagnoses may be sequenced first." "When the physician has documented what appears to be a current diagnosis in the body of the record, but has not included the diagnosis in the final diagnostic statement, the physician should be asked whether the diagnosis should be added." (Source Coding Clinic 2 QTR90. p3-4) MELODIE
== END 2023-08-25 12:43 | DRG 481 ==
LOC: ED 16:52 → 2E 20:08 → SUATTDRO 20:08 → 2E 21:23 → 3N 08-22 13:55

== ENCOUNTER 2023-09-27 11:44 | Inpatient (IN) ==
--- NOTE | 2023-09-27 12:02 | Emergency Department Note ---
Impression & Plan Sepsis, UTI (urinary tract infection), Acute hypotension ED Provider Note NAME: ANABELLE WILLIAMSON AGE: 88 SEX: M : 1935 ARRIVES VIA: Ambulance INFORMANT: Patient ED PROVIDER(S): Flo Muhammad DO CHIEF COMPLAINT: syncope, hypotension, chest pain HPI: Patient is an 88-year-old male who presents to the ER for syncopal episode from [facility]. Per report he was hypotensive with systolic pressures in the 70s and he passed out. He was complaining of some right-sided chest pain intermittently. He any does not history of dementia and he does not recall any of this. provides additional history who notes that they called her and notified her that he was having chest pain and his blood pressure was low and referred him into the hospital. Patient does have a known left hip repair. Denies any dysuria, urgency, or frequency but does have a suprapubic catheter. There was report that the patient fell. ADDITIONAL HISTORY OBTAINED: provides additional history who notes that they called her and notified her that he was having chest pain and his blood pressure was low and referred him into the hospital. Chronic Medical/Social Conditions Affecting Care: Per HPI PAST MEDICAL HISTORY:See Below PAST SURGICAL HISTORY:See Below FAMILY HISTORY:See Below SOCIAL HISTORY:See Below HOME MEDICATIONS:See Below ALLERGIES:See Below VITALS:See Below PHYSICAL EXAMINATION: GENERAL: Sitting up in bed, alert, ill-appearing, disheveled EYE EXAM: normal conjunctiva. PERRL and EOM's grossly intact. OROPHARYNX: Dry mucous NECK: supple, no nuchal rigidity, no adenopathy, non-tender LUNGS: Clear to auscultation. Normal chest wall mechanics HEART: no murmurs, S1 normal and S2 normal ABDOMEN: abdomen soft, non-tender, normo-active bowel sounds, no masses, no rebound or guarding. PELVIS: Tenderness over the left hip on palpation UPPER EXTREMITIES: upper extremities are grossly normal. LOWER EXTREMITIES: No pitting edema. NEURO EXAM: Sitting up in bed confused, cranial nerves II-XII grossly intact, normal speech, no gross weakness of arms, no gross weakness of legs. MEDICAL DECISION MAKING: Patient is an 88-year-old male pleasantly demented who presents the ER for the above-stated complaint. Upon presentation he is found to be hypotensive with systolic pressures in the 80s. IVs were established blood work was obtained. He was given 2 L of IV fluids. Systolic pressures rebounded To the low 100s. Labs showed no significant leukocytosis and a mild anemia at 11. BMP with creatinine 2.2 fairly consistent with previous. Glucose dropped to 66 but rebounded to 90s. LFTs bilirubin was unremarkable. Troponin was negative and urine appeared to be infected on exam and was slightly contaminated based on the UA. CT abdomen pelvis showed rectal wall thickening. Patient was initially given IV cefepime and switched to ertapenem due to previous urine cultures as I reviewed external records and patient had ESBL. The only sensitivity was to Bactrim, Macrobid and pendulums. Case was discussed with the hospitalist admitted for further workup. Discussed and updated the at bedside. Consults/Care Managements Discussions: Per [facility] Triage Nursing notes reviewed. Limited review of prior medical records performed Vital Signs: reviewed and remarkable for no significant abnormalities Differential diagnosis: Differential diagnosis includes etiologies such as sepsis, UTI, pneumonia, metabolic, electrolyte abnormalities, cardiac sources, intracerebral event, toxicologic, neurological, as well as others were entertained. ER treatment provided: See below Diagnostics interpreted by me include EKG and cardiac monitoring as listed below: -Cardiac Monitoring: An order was placed for continuous cardiac monitoring. The monitor shows a rate of 80 with sinus rhythm. -ECG: A-fib rate of 79 Normal axis No PVCs QTc 428 -Laboratory studies:Interpreted by me as stated above in MDM and shown below. Imaging studies: Xrays: As interpreted by me: Portable AP upright 1 view of the chest shows no focal CTs show: CT abdomen pelvis and head as described above Procedures:none Critical Care: None Past Med/Surg History Medical History Chronic kidney disease, stage III (moderate) Cellulitis of groin Sleep apnea Dementia Chronic renal insufficiency, stage IV (severe) SCC (squamous cell carcinoma), penis Atrial fibrillation GERD (gastroesophageal reflux disease) Stage 3b chronic kidney disease Acute UTI Pain in penis Lumbosacral facet joint syndrome Discogenic lumbar pain Acute metabolic encephalopathy UTI (urinary tract infection) Rib pain on left side Syncopal episodes COVID-19 Penile cancer KENROY (acute kidney injury) Unresponsiveness Anemia of chronic disease Diarrhea SCC (squamous cell carcinoma), penis Chronic pruritus Hypothyroidism Secondary hyperparathyroidism of renal origin Orthostatic hypotension Vitamin D deficiency SBO (small bowel obstruction) Small bowel obstruction due to adhesions Rectal bleed BRBPR (bright red blood per rectum) Dementia Hyperkalemia Acute cholecystitis Substernal chest pain Dysphagia Fall Colitis Concussion Degenerative disc disease Osteoarthritis History of bleeding ulcers Diabetes mellitus, type 2 Hx of migraines Hx of sleep apnea Balanoposthitis Phimosis DDD (degenerative disc disease), lumbar Atrial fibrillation (04/22/12) Peptic ulcer disease BPH w urinary obs/LUTS Anal fistula Fall Hypoglycemia Bradycardia Surgical History S/P laparoscopic cholecystectomy (09/17/20) Hx of circumcision H/O knee surgery History of total shoulder replacement History of total knee replacement History of esophagogastroduodenoscopy (EGD) History of colonoscopy History of tooth extraction Hx of transurethral resection of prostate H/O gastric bypass Family History Sister Family history of diabetes mellitus Social History Smoking Status: Former smoker Tobacco Type: Cigarettes Second Hand Exposure: No; Do You Dip or Chew Tobacco: No; Hx Alcohol Use: No Hx Substance Use: No Preferred Language: Romansh Communication Ability: Impaired Communication Ability Comment: can be forgetful Forensic Audit Expert Required: No Beliefs That Will Affect Care: None marital status: Current Living Situation: Spouse Current Living Situation Comment: At home with current occupational status: retired Feels Safe at Home: Yes Diet: regular caffeine: No Dental Care, Regularly: Yes Seatbelt Use: always Assistive Devices: Scooter/Electric Scooter, Walker and Wheelchair Allergies Allergies Allergy/AdvReac Type Severity Reaction Status Date / Time iron [From Venofer] AdvReac Mild warm Verified 08/18/23 18:19 sensation/flushing, discomfort in arm in which it was i Home Meds Home Medications Medication Instructions Recorded Confirmed calcium carbonate 500 mg-vitamin 1 tab PO QAM 12/18/19 09/27/23 D3 5 mcg (200 unit) tablet (Calcium 500 + D) vitamin B complex 1 tab PO QAM 12/18/19 09/27/23 Lactobacillus acidophilus 10 10,000 mmu cells PO QDD 01/18/21 09/27/23 billion cell capsule (Probiotic) multivitamin 1 tab PO DAILY 08/01/22 09/27/23 acetaminophen 500 mg tablet 1,000 mg PO Q8H PRN Pain 12/22/22 09/27/23 (Tylenol Extra Strength) ferrous sulfate 325 mg (65 mg 325 mg PO DAILY 04/27/23 09/27/23 iron) tablet,delayed release metoprolol tartrate 50 mg tablet 50 mg PO BID 08/13/23 09/27/23 miconazole nitrate 2 % topical 1 applic EXT BID PRN as directed 08/13/23 09/27/23 powder (Desenex) cholecalciferol (vitamin D3) 1,250 1,250 mcg PO WK 09/27/23 09/27/23 mcg (50,000 unit) tablet oxycodone 5 mg tablet 5 mg PO Q6H PRN Severe pain 9-10 09/27/23 09/27/23 polyethylene glycol 3350 17 gram 17 g PO DAILY 09/27/23 09/27/23 oral powder packet (Miralax) sennosides 8.6 mg tablet 8.6 mg PO BID 09/27/23 09/27/23 Previous Rx's Medication Instructions Recorded sodium bicarbonate 650 mg tablet 650 mg PO BID Stomach upset #180 08/10/22 tabs calcitriol 0.25 mcg capsule 0.25 mcg PO DAILY #90 caps 10/06/22 magnesium oxide 400 mg (241.3 mg 400 mg PO BID #180 tabs 11/23/22 magnesium) tablet apixaban 2.5 mg tablet (Eliquis) 2.5 mg PO BID #180 tabs 04/15/23 clopidogrel 75 mg tablet (Plavix) 75 mg PO DAILY #90 tabs 04/15/23 levothyroxine 25 mcg tablet 25 mcg PO DAILYBB 90 days #90 tabs 05/27/23 (Synthroid) tamsulosin 0.4 mg capsule 0.4 mg PO DAILY #90 caps 06/14/23 omeprazole 40 mg capsule,delayed 40 mg PO BID 90 days #180 caps 06/23/23 release gabapentin 100 mg capsule 100 mg PO BID #180 caps 08/05/23 oxybutynin chloride 5 mg 5 mg PO QAM #30 tabs 08/18/23 tablet,extended release 24 hr Results & Data (ED) Vital Signs Vital Signs - 24 hr 09/27/23 11:54 09/27/23 11:55 09/27/23 11:55 Temperature 36.8 C Temperature Source Oral Pulse Rate 87 Pulse Rate [Apical] Pulse Rhythm Irregular Respiratory Rate 20 22 Respiratory Effort / Characteristics Non-Labored Respiratory Depth Normal Normal Blood Pressure 100/66 Blood Pressure [Right Arm] Blood Pressure Mean 77 Blood Pressure Mean [Right Arm] Pulse Oximetry 96 96 Oxygen Delivery Method Room Air Room Air Sepsis Recent Fever Within 48 Hours No Sepsis New/Unexplained Change in Mental Status N/A Sepsis Action Taken by Nursing No Action Required 09/27/23 13:54 09/27/23 15:00 Temperature Temperature Source Pulse Rate Pulse Rate [Apical] 87 80 Pulse Rhythm Respiratory Rate 18 18 Respiratory Effort / Characteristics Non-Labored Non-Labored Respiratory Depth Normal Normal Blood Pressure Blood Pressure [Right Arm] 90/54 L 115/76 Blood Pressure Mean Blood Pressure Mean [Right Arm] 66 89 Pulse Oximetry 96 96 Oxygen Delivery Method Room Air Room Air Sepsis Recent Fever Within 48 Hours Sepsis New/Unexplained Change in Mental Status Sepsis Action Taken by Nursing Laboratory Data 09/27/23 12:19 09/27/23 12:19 Lab Results 09/27/23 09/27/23 09/27/23 Range/Units 12:19 12:25 12:53 WBC 5.87 (4.8-10.8) K/ul RBC 3.77 L (4.70-6.10) M/uL Hgb 11.0 L (14.0-18.0) g/dl POC Hgb 11.6 L (14.0-18.0) g/dl Hct 36.2 L (42.0-52.0) % POC Hct 34 L (42-52) % MCV 96.0 (80.0-100.0) fL MCH 29.2 (25.0-34.0) pg MCHC 30.4 L (32.0-36.0) g/dL RDW Std Deviation 53.1 H (36.4-46.3) fL RDW Coeff of Yinka 15.0 H (11.5-14.5) % Plt Count 309 (130-400) K/uL MPV 10.5 (9.4-12.4) fL Immature Gran % (Auto) 0.2 % Neut % (Auto) 59.9 % Lymph % (Auto) 25.2 % [place] % (Auto) 9.4 % Eos % (Auto) 4.6 % Baso % (Auto) 0.7 % Neut # (Auto) 3.52 (1.40-6.50) K/uL Lymph # (Auto) 1.48 (1.20-3.40) K/uL [place] # (Auto) 0.55 (0.11-0.59) K/uL Eos # (Auto) 0.27 (0.00-0.50) K/uL Baso # (Auto) 0.04 (0.00-0.20) K/uL Immature Gran # (Auto) 0.01 (0.01-0.20) K/uL POC Sodium 141 (135-144) mmol/L Sodium 140 (136-145) mmol/L POC Potassium 3.9 (3.3-5.0) mmol/L Potassium 3.8 (3.5-5.1) mmol/L POC Chloride 105 (101-112) mmol/L Chloride 106 (98-107) mmol/L Carbon Dioxide 26 (21-32) mmol/L POC Total CO2 26 (24-31) mmol/L Anion Gap 8 (3-11) POC Anion Gap 14.0 L (16-25) mmol/L POC BUN 37 H (7-18) mg/dl BUN 40 H (6-23) mg/dl Creatinine 2.25 H (0.6-1.4) mg/dl POC Creatinine 2.7 H (0.6-1.3) mg/dl Est Cr Clr Drug Dosing 24.6 ml/min Est GFR ( Amer) 29.3 ml/min Est GFR (Non-Af Amer) 25.3 ml/min BUN/Creatinine Ratio 17.8 (10-20) Glucose 67 L (70-99(Fasting)) mg/dl POC Glucose (70-99) mg/dl POC Glucose (other) 66 L* (70-99) mg/dl Lactate 1.3 (0.4-2.0) mmol/L Calcium 9.2 (8.6-10.3) mg/dl POC Ioniz Calcium Jb 1.22 (1.12-1.32) mmol/l Total Bilirubin 0.3 (0.2-1.0) mg/dl AST 19 (13-39) U/L ALT 11 (7-52) U/L Alkaline Phosphatase 159 H (34-104) U/L Troponin I High Sens 11.0 (0-20) pg/ml Total Protein 6.9 (6.0-8.3) gm/dl Albumin 3.1 L (3.4-5.0) gm/dl Globulin 3.8 (2.5-4.0) gm/dl Albumin/Globulin Ratio 0.8 L (0.9-2) Lipase 12 (11-82) U/L Urine Color Dark Yellow Urine Appearance Turbid A (Clear) Urine pH 5.0 (4.5-7.5) Ur Specific [place] 1.020 (1.000-1.030) Urine Protein 2+ H (Negative) Urine Glucose (UA) Negative (Negative) Urine Ketones Trace H (Negative) Urine Blood 3+ H (Negative) Urine Nitrite Positive A (Negative) Urine Bilirubin Negative (Negative) Urine Urobilinogen Negative (Negative) Ur Leukocyte Esterase 3+ H (Negative) Urine WBC (Auto) >50 H (0-5) /hpf Urine RBC (Auto) >20 H (0-2) /hpf U Hyaline Cast (Auto) >20 H (0-2) /lpf U Epithel Cells (Auto) 11-20 H (0-2) /hpf Urine Bacteria (Auto) 4+ H (None Seen) Ur Renal Epithelial Cell Present A (None Presnt) /lpf 09/27/23 Range/Units 14:37 WBC (4.8-10.8) K/ul RBC (4.70-6.10) M/uL Hgb (14.0-18.0) g/dl POC Hgb (14.0-18.0) g/dl Hct (42.0-52.0) % POC Hct (42-52) % MCV (80.0-100.0) fL MCH (25.0-34.0) pg MCHC (32.0-36.0) g/dL RDW Std Deviation (36.4-46.3) fL RDW Coeff of Yinka (11.5-14.5) % Plt Count (130-400) K/uL MPV (9.4-12.4) fL Immature Gran % (Auto) % Neut % (Auto) % Lymph % (Auto) % [place] % (Auto) % Eos % (Auto) % Baso % (Auto) % Neut # (Auto) (1.40-6.50) K/uL Lymph # (Auto) (1.20-3.40) K/uL [place] # (Auto) (0.11-0.59) K/uL Eos # (Auto) (0.00-0.50) K/uL Baso # (Auto) (0.00-0.20) K/uL Immature Gran # (Auto) (0.01-0.20) K/uL POC Sodium (135-144) mmol/L Sodium (136-145) mmol/L POC Potassium (3.3-5.0) mmol/L Potassium (3.5-5.1) mmol/L POC Chloride (101-112) mmol/L Chloride (98-107) mmol/L Carbon Dioxide (21-32) mmol/L POC Total CO2 (24-31) mmol/L Anion Gap (3-11) POC Anion Gap (16-25) mmol/L POC BUN (7-18) mg/dl BUN (6-23) mg/dl Creatinine (0.6-1.4) mg/dl POC Creatinine (0.6-1.3) mg/dl Est Cr Clr Drug Dosing ml/min Est GFR ( Amer) ml/min Est GFR (Non-Af Amer) ml/min BUN/Creatinine Ratio (10-20) Glucose (70-99(Fasting)) mg/dl POC Glucose 95 (70-99) mg/dl POC Glucose (other) (70-99) mg/dl Lactate (0.4-2.0) mmol/L Calcium (8.6-10.3) mg/dl POC Ioniz Calcium Jb (1.12-1.32) mmol/l Total Bilirubin (0.2-1.0) mg/dl AST (13-39) U/L ALT (7-52) U/L Alkaline Phosphatase (34-104) U/L Troponin I High Sens (0-20) pg/ml Total Protein (6.0-8.3) gm/dl Albumin (3.4-5.0) gm/dl Globulin (2.5-4.0) gm/dl Albumin/Globulin Ratio (0.9-2) Lipase (11-82) U/L Urine Color Urine Appearance (Clear) Urine pH (4.5-7.5) Ur Specific [place] (1.000-1.030) Urine Protein (Negative) Urine Glucose (UA) (Negative) Urine Ketones (Negative) Urine Blood (Negative) Urine Nitrite (Negative) Urine Bilirubin (Negative) Urine Urobilinogen (Negative) Ur Leukocyte Esterase (Negative) Urine WBC (Auto) (0-5) /hpf Urine RBC (Auto) (0-2) /hpf U Hyaline Cast (Auto) (0-2) /lpf U Epithel Cells (Auto) (0-2) /hpf Urine Bacteria (Auto) (None Seen) Ur Renal Epithelial Cell (None Presnt) /lpf Administered Medications Acetaminophen (Acetaminophen 325 Mg Tab) 650 mg PO Q4H PRN PRN Reason: Pain or Fever Stop: 10/27/23 17:44 Last Admin: 09/27/23 17:54 Dose: 650 mg Documented By: KYLEIGH Discontinued Medications Sodium Chloride (Nss) 1,000 mls @ 999 mls/hr IV .Q1H1M SHY Stop: 09/27/23 14:00 Last Infusion: 09/27/23 14:24 Dose: Infused Documented By: Admin: 09/27/23 12:55 Dose: 999 mls/hr Documented By: Infusion: 09/27/23 12:55 Dose: Infused Documented By: Admin: 09/27/23 12:54 Dose: 999 mls/hr Documented By: ANNA Cefepime HCl (Maxipime) 2,000 mg in 20 mls @ 5 mls/min IV NOW STA; Protocol Stop: 09/27/23 11:58 Last Admin: 09/27/23 12:54 Dose: 5 mls/min Documented By: ANNA Ertapenem (Invanz) 10 mls @ 2 mls/min IV NOW STA Stop: 09/27/23 13:57 Last Admin: 09/27/23 14:37 Dose: 2 mls/min Documented By: MARY JO Parenteral Electrolytes (Plasma-Lyte A Ph 7.4) 1,000 mls @ 999 mls/hr IV .Q1H1M ONE Stop: 09/27/23 15:24 Last Infusion: 09/27/23 17:46 Dose: Infused Documented By: Admin: 09/27/23 14:40 Dose: 999 mls/hr Documented By: MARY JO Morphine Sulfate (Morphine Sulfate 4 Mg/Ml 1 Ml Carp\Vial) 4 mg IV NOW STA Stop: 09/27/23 13:52 Last Admin: 09/27/23 14:36 Dose: 4 mg Documented By: MARY JO Imaging Data Radiologist's Impression: Chest X-Ray 09/27/23 11:45 XR chest 1V portable HISTORY: Chest pain, nonspecific COMPARISON: Chest 08/21/2023. FINDINGS: No pneumothorax. No pleural effusions. The cardiac silhouette remains mildly enlarged. No focal lung consolidations to suggest a pneumonia. No evidence for pulmonary edema. There is a left shoulder prosthesis again noted. Healing displaced left midshaft clavicle fracture is noted. Healing left anterior rib fractures. IMPRESSION: 1. Healing left clavicle and healing left rib fractures. 2. Stable cardiomegaly. ACT 112: Negative or not required by law. Electronically signed by: Oscar Phillips M.D. 09/27/2023 1:06 PM Abdomen/Pelvis CT 09/27/23 11:[address] WITHOUT CONTRAST HISTORY: Acute generalized abdominal pain ams TECHNIQUE: Multiaxial CT images of the abdomen and pelvis were performed without contrast. A dose lowering technique was utilized adhering to the principles of ALARA. COMPARISON STUDY: CT 05/06/2023, 05/23/2023 FINDINGS: Cardiomegaly with trace pericardial effusion. Extensive coronary artery calcifications. Gynecomastia. Mild subsegmental bibasilar atelectasis versus scarring. No free air. The unenhanced spleen, moderately atrophic pancreas and adrenal glands are unchanged from prior and within normal limits. Cholecystectomy. Liver is within normal limits. Mildly atrophic kidneys with cortical thinning redemonstrated. Calcifications of the superior pole left kidney are again noted measuring up to 3 mm. Subcentimeter hypodensities of the kidneys are too small to characterize, likely cysts. Punctate nonobstructing calcification of the superior pole right kidney. No ureteral calculi or hydronephrosis. Prostatomegaly. Bladder wall thickening with partial distention and perivesicular stranding. A suprapubic catheter is noted in the urinary bladder. Air with hyperdense material in the bladder lumen may represent blood products. Vascular calcifications of the penis. Atherosclerosis of the aorta without aneurysm. No lymphadenopathy. Postoperative changes of the stomach. Colonic diverticulosis. Moderate colonic fecal retention. Rectal wall thickening with partial distention. Mild adjacent inflammatory stranding. Subcentimeter hyperdense focus in the mid appendiceal lumen may represent an appendicolith versus retained enteric contrast. No CT evidence of acute appendicitis. No acute fracture. Subacute proximal left femoral fracture with intertrochanteric nail and medullary kaveh. IMPRESSION: 1. No bowel obstruction or pneumoperitoneum. 2. Rectal wall thickening with partial distention and perirectal inflammatory stranding. Findings are nonspecific and could be correlated with colonoscopy. 3. Prostamegaly with findings suggestive of chronic outlet obstruction. Correlate with urinalysis. 4. Healing fixated subacute intertrochanteric left femoral fracture. 5. Colonic diverticulosis. 6. Additional findings as above. ACT 112: Negative or not required by law. The above report was generated using voice recognition software. It may contain grammatical, syntax or spelling errors. Electronically signed by: Sixto Armenta M.D. 09/27/2023 3:[address] 09/27/23 11:[address] DOSE: 1912.1 mGy.cm HISTORY: fall hit head TECHNIQUE: Multiaxial CT images of the head were performed without the use of intravenous contrast. Automated exposure control was utilized for this study. A dose lowering technique was utilized adhering to the principles of ALARA. Comparison: Head CT 08/18/2023. Findings: The paranasal sinuses and mastoid air cells are clear. The calvarium and skull base are intact. There is no mass, hematoma, midline shift, acute infarct. White matter hypodensity is nonspecific but suggestive of microvascular ischemic change. The ventricles and sulci demonstrate mild age-related involutional changes. Impression: No acute intracranial abnormality. ACT 112: Negative or not required by law. Electronically signed by: Oscar Phillips M.D. 09/27/2023 2:57 PM Discharge Plan Visit Data Chief Complaint: Chest Pain Stated Complaint: CHEST PAIN ED Provider: Fol Muhammad Patient Disposition: Admitted As Inpatient Discharge Instructions Interventions: ED Discharge Assessment Last Done: 09/27/23 16:50
[2023-09-27 12:38] LABS: iSTAT Creatinine 2.7 mg/dl (0.6-1.3); iSTAT Hemoglobin 11.6 g/dl (14.0-18.0); iSTAT Ionized Calcium 1.22 mmol/l (1.12-1.32); iSTAT Potassium 3.9 mmol/L (3.3-5.0)
[2023-09-27 12:48] LABS: Basophils # (auto) 0.04 K/uL (0.00-0.20); Basophils % (auto) 0.7 %; Eosinophils # (auto) 0.27 K/uL (0.00-0.50); Eosinophils % (auto) 4.6 %; Hematocrit (blood only) 36.2 % (42.0-52.0); Immature Granulocytes # (auto) 0.01 K/uL (0.01-0.20); Immature Granulocytes % (auto) 0.2 %; Lymphocytes # (auto) 1.48 K/uL (1.20-3.40); Lymphocytes % (auto) 25.2 %; Mean Corpuscular Hemoglobin 29.2 pg (25.0-34.0); Mean Corpuscular Hgb Conc 30.4 g/dL (32.0-36.0); Mean Platelet Volume 10.5 fL (9.4-12.4); Monocytes # (auto) 0.55 K/uL (0.11-0.59); Monocytes % (auto) 9.4 %; Neutrophils # (auto) 3.52 K/uL (1.40-6.50); Neutrophils % (auto) 59.9 %; Platelet Count 309 K/uL (130-400); RDW Standard Deviation 53.1 fL (36.4-46.3); Red Blood Count 3.77 M/uL (4.70-6.10); White Blood Count 5.87 K/ul (4.8-10.8)
[2023-09-27] MEDS: SODIUM CHLORIDE 0.9% 1,000 ML IV SCH (12:54)
[2023-09-27] MEDS: CEFEPIME 2,000 MG/20 ML VIAL IV STA (12:54)
--- NOTE | 2023-09-27 13:07 | XRay Report ---
XR chest 1V portable HISTORY: Chest pain, nonspecific COMPARISON: Chest 08/21/2023. FINDINGS: No pneumothorax. No pleural effusions. The cardiac silhouette remains mildly enlarged. No f ocal lung consolidations to suggest a pneumonia. No evidence for pulmonary edema. There is a left channing ulder prosthesis again noted. Healing displaced left midshaft clavicle fracture is noted. Healing lef t anterior rib fractures. IMPRESSION: 1. Healing left clavicle and healing left rib fractures. 2. Stable cardiomegaly. ACT 112: Negative or not required by law. Electronically signed by: Oscar Phillips M.D. 09/27/2023 1:06 PM
[2023-09-27 13:08] LABS: Albumin Globulin Ratio 0.8 (0.9-2); Albumin Level 3.1 gm/dl (3.4-5.0); BUN Creatinine Ratio 17.8 (10-20); Bilirubin,Total 0.3 mg/dl (0.2-1.0); Calcium 9.2 mg/dl (8.6-10.3); Creatinine Clr Calc Pharmacy 24.6 ml/min; Est GFR (African American) 29.3 ml/min; Est GFR (Non-African American) 25.3 ml/min; Globulin 3.8 gm/dl (2.5-4.0); Potassium 3.8 mmol/L (3.5-5.1); Total Protein 6.9 gm/dl (6.0-8.3)
--- NOTE | 2023-09-27 13:16 | Electrocardiogram Report ---
Test Reason : Blood Pressure : / mmHG Vent. Rate : 079 BPM Atrial Rate : 000 BPM P-R Int : 000 ms QRS Dur : 082 ms QT Int : 374 ms P-R-T Axes : 000 007 059 degrees QTc Int : 428 ms Atrial fibrillation Low voltage QRS Abnormal ECG When compared with ECG of 19-AUG-2023 05:00, Criteria for Inferior infarct are no longer Present T wave inversion no longer evident in Inferior leads Confirmed by Gabriel Young ([id number]) on 09/27/2023 1:15:59 PM Referred By: Confirmed By:Gabriel Young
[2023-09-27 13:36] LABS: Appearance Urine Turbid (Clear); Bacteria Urine Automated 4+ (None Seen); Bilirubin Urine Negative (Negative); Blood Urine 3+ (Negative); Cast Urine Automated >20 /lpf (0-2); Color Urine Dark Yellow; Glucose Urine UA Negative (Negative); Ketones Urine Trace (Negative); Leukocyte Esterase Urine 3+ (Negative); Nitrite Urine Positive (Negative); Protein Urine 2+ (Negative); RBC Urine Automated >20 /hpf (0-2); Urobilinogen Urine Negative (Negative); WBC Urine Automated >50 /hpf (0-5)
[2023-09-27 13:48] LABS: Renal Epithelial Cells Urine Present /lpf (None Presnt)
[2023-09-27] MEDS: MoRPHine SULFATE 4 MG/ML 1 ML CARP\\VIAL IV STA (14:36)
[2023-09-27] MEDS: ERTAPENEM SODIUM 10 ML IV STA (14:37)
[2023-09-27] MEDS: PLASMA-LYTE A 1,000 ML IV ONE (14:40)
--- NOTE | 2023-09-27 14:58 | CT Scan Report ---
HEAD CT NONCONTRAST CT DOSE: 1912.1 mGy.cm HISTORY: fall hit head TECHNIQUE: Multiaxial CT images of the head were performed without the use of intravenous contrast. A utomated exposure control was utilized for this study. A dose lowering technique was utilized adheri ng to the principles of ALARA. Comparison: Head CT 08/18/2023. Findings: The paranasal sinuses and mastoid air cells are clear. The calvarium and skull base are int act. There is no mass, hematoma, midline shift, acute infarct. White matter hypodensity is nonspecifi c but suggestive of microvascular ischemic change. The ventricles and sulci demonstrate mild age-rela drew involutional changes. Impression: No acute intracranial abnormality. ACT 112: Negative or not required by law. Electronically signed by: Oscar Phillips M.D. 09/27/2023 2:57 PM
--- NOTE | 2023-09-27 15:03 | CT Scan Report ---
ABDOMEN AND PELVIS CT WITHOUT CONTRAST HISTORY: Acute generalized abdominal pain ams TECHNIQUE: Multiaxial CT images of the abdomen and pelvis were performed without contrast. A dose lo wering technique was utilized adhering to the principles of ALARA. COMPARISON STUDY: CT 05/06/2023, 05/23/2023 FINDINGS: Cardiomegaly with trace pericardial effusion. Extensive coronary artery calcifications. 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 Mild subsegmental bibasilar atelectasis versus scarring. No free air. The unenhanced splee n, moderately atrophic pancreas and adrenal glands are unchanged from prior and within normal limits. Cholecystectomy. Liver is within normal limits. Mildly atrophic kidneys with cortical thinning redemonstrated. Calcifications of the superior pole le ft kidney are again noted measuring up to 3 mm. Subcentimeter hypodensities of the kidneys are too sm all to characterize, likely cysts. Punctate nonobstructing calcification of the superior pole right k idney. No ureteral calculi or hydronephrosis. Prostatomegaly. Bladder wall thickening with partial di stention and perivesicular stranding. A suprapubic catheter is noted in the urinary bladder. Air with hyperdense material in the bladder lumen may represent blood products. Vascular calcifications of th e penis. Atherosclerosis of the aorta without aneurysm. No lymphadenopathy. Postoperative changes of the stomach. Colonic diverticulosis. Moderate colonic fecal retention. Recta l wall thickening with partial distention. Mild adjacent inflammatory stranding. Subcentimeter hyperd ense focus in the mid appendiceal lumen may represent an appendicolith versus retained enteric contra st. No CT evidence of acute appendicitis. No acute fracture. Subacute proximal left femoral fracture with intertrochanteric nail and medullary kaveh. IMPRESSION: 1. No bowel obstruction or pneumoperitoneum. 2. Rectal wall thickening with partial distention and perirectal inflammatory stranding. Findings are nonspecific and could be correlated with colonoscopy. 3. Prostamegaly with findings suggestive of chronic outlet obstruction. Correlate with urinalysis. 4. Healing fixated subacute intertrochanteric left femoral fracture. 5. Colonic diverticulosis. 6. Additional findings as above. ACT 112: Negative or not required by law. The above report was generated using voice recognition software. It may contain grammatical, syntax o r spelling errors. Electronically signed by: Sixto Armenta M.D. 09/27/2023 3:01 PM
--- NOTE | 2023-09-27 15:24 | History & Physical Report ---
Date of Service September 27, 2023 Assessment & Plan (1) Hypotension: Plan: On review of blood pressure measurements on metoprolol scheduling appears this is not too unusual for him but appeared much more symptomatic today. He missed morning doses on the -, , , - of metoprolol due to low blood pressure. Lactate normal on admission Likely acutely worse in setting of CAUTI Resolved after IV fluids in the ER Hold tamsulosin - can confirm with urology tomorrow but no anatomical reason he should continue to need this now with suprapubic catheter Continue metoprolol for rate control (reduce hold parameters to sBP < 90) If continues despite stopping tamsulosin and treatment for CAUTI may have to consider fludrocortisone/midodrine (2) Chest pain: Plan: Main reason he was sent to the ER. Multiple prior episodes listed in chart, atypical chest pain noted in cardiology note from 04/27/2023, currently resolved when seen on admission Troponin x2 negative, EKG unremarkable Possibly related to hypotension (3) Catheter-associated urinary tract infection: Plan: Dysuria Ertapenem prescribed based on prior culture results Suprapubic catheter not changed since June per as waiting on a physician that is needed to do it - awaiting appointment with urology (4) Suprapubic catheter: Plan: Consult urology for exchange - reportedly has been waiting for this for a while as outpatient as unable to be arranged back at [facility] (5) SUE (obstructive sleep apnea): Plan: Does not wear CPAP HS per [facility] staff (6) Hypothyroidism: Plan: TSH 2.932 in August Continue current levothyroxine dosing (7) GERD (gastroesophageal reflux disease): Plan: Switch from omeprazole to pantoprazole per hospital formulary Plan VTE Prophylaxis - Eliquis Diet - regular Disposition - admit to PCU Admission and Anticipated Discharge Date Admission Date: September 27, 2023 History of Present Illness Chief Complaint: Chest pain Unresponsiveness with hypotension Primary Care Provider: Catrina Watson is an 88-year-old male from [facility] with dementia who presents to the ER with an episode of sharp chest pain radiating down the left arm. Paitne unable to give me much of a history due to dementia and only has second hand knowledge at bedside. Discussed care with [facility]. Patient complained of chest pain this morning for [employer] around 9:15am, BP 90/57. They had him lying down and he started feeling better. Around an hour later he started complaining of chest pain again radiating down his arm and into back. He appeared pale with his BP 78/47, HR 80-90 with normal oxygen saturations. He became more tired, lethargic and less responsive. On discussion with the provider at [facility] (Dr Reis) the patient has been complaining of dysuria around his suprapubic catheter for the last 2 days. EMS reports 10 severity left hip pain which the patient currently denies. Following fluid resuscitation the patient also currently denies any dizziness, chest pain, shortness of breath or palpitations. He thinks he may have some diarrhea "some time ago" (on review of [facility] drug charting he is on regular laxatives). Hypotension now appears resolved following IV fluid resuscitation in the ER. Allergies Allergy/AdvReac Type Severity Reaction Status Date / Time iron [From Venofer] AdvReac Mild warm Verified 08/18/23 18:19 sensation/flushing, discomfort in arm in which it was i Home Medications Medication Instructions Recorded Confirmed Type calcium carbonate 500 mg-vitamin 1 tab PO QAM 12/18/19 09/27/23 History D3 5 mcg (200 unit) tablet (Calcium 500 + D) vitamin B complex 1 tab PO QAM 12/18/19 09/27/23 History Lactobacillus acidophilus 10 10,000 mmu cells PO QDD 01/18/21 09/27/23 History billion cell capsule (Probiotic) multivitamin 1 tab PO DAILY 08/01/22 09/27/23 History sodium bicarbonate 650 mg tablet 650 mg PO BID Stomach upset #180 08/10/22 09/27/23 Rx tabs calcitriol 0.25 mcg capsule 0.25 mcg PO DAILY #90 caps 10/06/22 09/27/23 Rx magnesium oxide 400 mg (241.3 mg 400 mg PO BID #180 tabs 11/23/22 09/27/23 Rx magnesium) tablet acetaminophen 500 mg tablet 1,000 mg PO Q8H PRN Pain 12/22/22 09/27/23 History (Tylenol Extra Strength) apixaban 2.5 mg tablet (Eliquis) 2.5 mg PO BID #180 tabs 04/15/23 09/27/23 Rx clopidogrel 75 mg tablet (Plavix) 75 mg PO DAILY #90 tabs 04/15/23 09/27/23 Rx ferrous sulfate 325 mg (65 mg 325 mg PO DAILY 04/27/23 09/27/23 History iron) tablet,delayed release levothyroxine 25 mcg tablet 25 mcg PO DAILYBB 90 days #90 tabs 05/27/23 09/27/23 Rx (Synthroid) tamsulosin 0.4 mg capsule 0.4 mg PO DAILY #90 caps 06/14/23 09/27/23 Rx omeprazole 40 mg capsule,delayed 40 mg PO BID 90 days #180 caps 06/23/23 09/27/23 Rx release gabapentin 100 mg capsule 100 mg PO BID #180 caps 08/05/23 09/27/23 Rx miconazole nitrate 2 % topical 1 applic EXT BID PRN as directed 08/13/23 09/27/23 History powder (Desenex) oxybutynin chloride 5 mg 5 mg PO QAM #30 tabs 08/18/23 09/27/23 Rx tablet,extended release 24 hr cholecalciferol (vitamin D3) 1,250 1,250 mcg PO WK 09/27/23 09/27/23 History mcg (50,000 unit) tablet metoprolol tartrate 25 mg tablet 25 mg PO BID 09/27/23 09/27/23 History oxycodone 5 mg tablet 5 mg PO Q6H PRN Severe pain 9-10 09/27/23 09/27/23 History polyethylene glycol 3350 17 gram 17 g PO DAILY 09/27/23 09/27/23 History oral powder packet (Miralax) sennosides 8.6 mg tablet 8.6 mg PO BID 09/27/23 09/27/23 History Past Med/Surg History Medical History Chronic kidney disease, stage III (moderate) Cellulitis of groin Sleep apnea Dementia Chronic renal insufficiency, stage IV (severe) SCC (squamous cell carcinoma), penis Atrial fibrillation GERD (gastroesophageal reflux disease) Stage 3b chronic kidney disease Acute UTI Pain in penis Lumbosacral facet joint syndrome Discogenic lumbar pain Acute metabolic encephalopathy UTI (urinary tract infection) Rib pain on left side Syncopal episodes COVID-19 Penile cancer KENROY (acute kidney injury) Unresponsiveness Anemia of chronic disease Diarrhea SCC (squamous cell carcinoma), penis Chronic pruritus Hypothyroidism Secondary hyperparathyroidism of renal origin Orthostatic hypotension Vitamin D deficiency SBO (small bowel obstruction) Small bowel obstruction due to adhesions Rectal bleed BRBPR (bright red blood per rectum) Dementia Hyperkalemia Acute cholecystitis Substernal chest pain Dysphagia Fall Colitis Concussion Degenerative disc disease Osteoarthritis History of bleeding ulcers Diabetes mellitus, type 2 Hx of migraines Hx of sleep apnea Balanoposthitis Phimosis DDD (degenerative disc disease), lumbar Atrial fibrillation (04/22/12) Peptic ulcer disease BPH w urinary obs/LUTS Anal fistula Fall Hypoglycemia Bradycardia Surgical History S/P laparoscopic cholecystectomy (09/17/20) Hx of circumcision H/O knee surgery History of total shoulder replacement History of total knee replacement History of esophagogastroduodenoscopy (EGD) History of colonoscopy History of tooth extraction Hx of transurethral resection of prostate H/O gastric bypass Family History Sister Family history of diabetes mellitus Social History Smoking Status: Never smoker Tobacco Type: Cigarettes Second Hand Exposure: No; Do You Dip or Chew Tobacco: No; Hx Alcohol Use: No Hx Substance Use: No Preferred Language: Swedish Communication Ability: Effective Communication Ability Comment: can be forgetful 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 Beliefs That Will Affect Care: None marital status: Current Living Situation: Spouse Current Living Situation Comment: At home with current occupational status: retired Other Information That Helps Us Care for You: No Feels Safe at Home: Yes Safety Concerns: Feels Safe At This Time Diet: regular caffeine: No Dental Care, Regularly: Yes Seatbelt Use: always Assistive Devices: Walker Review of Systems Review of Systems: All systems reviewed & are unremarkable except as noted in HPI & below Physical Exam Constitutional: well developed; + not well nourished and no acute distress Eyes: PERRL, conjunctivae normal, anicteric sclerae ENMT: external ear and nose normal, oropharynx normal Respiratory: normal respiratory effort, lungs clear to auscultation Cardiovascular: Rate/Rhythm: regular rate and + irregularly irregular Heart Sounds: no murmur Extremities: normal capillary refill; no calf tenderness and no pedal edema Chest (Breasts): Additional Comments: no pain on chest palpation Gastrointestinal (Abdomen): normal bowel sounds, soft, nontender, no hepatosplenomegaly Musculoskeletal: no cyanosis or clubbing, extremities motor strength 5/5 Skin: no rashes, warm and dry Neurologic: awake Psychiatric: Orientation: alert, oriented to person and oriented to place (aware he is in hospital but not sure which one); + not oriented to time Genitourinary: no CVA tenderness Results & Data Results & Data Vital Signs (Past 12 Hours) Vital Signs Temp Pulse Pulse Resp BP BP Pulse Ox 09/27/23 13:54 87 18 90/54 L 96 09/27/23 11:55 96 09/27/23 11:55 36.8 C 87 22 100/66 96 09/27/23 11:54 20 O2 Del Method 09/27/23 13:54 Room Air 09/27/23 11:55 Room Air 09/27/23 11:55 Room Air 09/27/23 11:54 Laboratory Results Abnormal lab results 09/27/23 09/27/23 Range/Units 12:19 12:25 RBC 3.77 L (4.70-6.10) M/uL Hgb 11.0 L (14.0-18.0) g/dl POC Hgb 11.6 L (14.0-18.0) g/dl Hct 36.2 L (42.0-52.0) % POC Hct 34 L (42-52) % MCHC 30.4 L (32.0-36.0) g/dL RDW Std Deviation 53.1 H (36.4-46.3) fL RDW Coeff of Yinka 15.0 H (11.5-14.5) % POC Anion Gap 14.0 L (16-25) mmol/L POC BUN 37 H (7-18) mg/dl BUN 40 H (6-23) mg/dl Creatinine 2.25 H (0.6-1.4) mg/dl POC Creatinine 2.7 H (0.6-1.3) mg/dl Glucose 67 L (70-99(Fasting)) mg/dl POC Glucose (other) 66 L* (70-99) mg/dl Alkaline Phosphatase 159 H (34-104) U/L Albumin 3.1 L (3.4-5.0) gm/dl Albumin/Globulin Ratio 0.8 L (0.9-2) Urine Appearance Turbid A (Clear) Urine Protein 2+ H (Negative) Urine Ketones Trace H (Negative) Urine Blood 3+ H (Negative) Urine Nitrite Positive A (Negative) Ur Leukocyte Esterase 3+ H (Negative) Urine WBC (Auto) >50 H (0-5) /hpf Urine RBC (Auto) >20 H (0-2) /hpf U Hyaline Cast (Auto) >20 H (0-2) /lpf U Epithel Cells (Auto) 11-20 H (0-2) /hpf Urine Bacteria (Auto) 4+ H (None Seen) Ur Renal Epithelial Cell Present A (None Presnt) /lpf Diagnostic Findings HEAD CT NONCONTRAST CT DOSE: 1912.1 mGy.cm HISTORY: fall hit head TECHNIQUE: Multiaxial CT images of the head were performed without the use of intravenous contrast. Automated exposure control was utilized for this study. A dose lowering technique was utilized adhering to the principles of ALARA. Comparison: Head CT 08/18/2023. Findings: The paranasal sinuses and mastoid air cells are clear. The calvarium and skull base are intact. There is no mass, hematoma, midline shift, acute infarct. White matter hypodensity is nonspecific but suggestive of microvascular ischemic change. The ventricles and sulci demonstrate mild age-related involutional changes. Impression: No acute intracranial abnormality. XR chest 1V portable HISTORY: Chest pain, nonspecific COMPARISON: Chest 08/21/2023. FINDINGS: No pneumothorax. No pleural effusions. The cardiac silhouette remains mildly enlarged. No focal lung consolidations to suggest a pneumonia. No evidence for pulmonary edema. There is a left shoulder prosthesis again noted. Healing displaced left midshaft clavicle fracture is noted. Healing left anterior rib fractures. IMPRESSION: 1. Healing left clavicle and healing left rib fractures. 2. Stable cardiomegaly. ABDOMEN AND PELVIS CT WITHOUT CONTRAST HISTORY: Acute generalized abdominal pain ams TECHNIQUE: Multiaxial CT images of the abdomen and pelvis were performed without contrast. A dose lowering technique was utilized adhering to the principles of ALARA. COMPARISON STUDY: CT 05/06/2023, 05/23/2023 FINDINGS: Cardiomegaly with trace pericardial effusion. Extensive coronary artery calcifications. Gynecomastia. Mild subsegmental bibasilar atelectasis versus scarring. No free air. The unenhanced spleen, moderately atrophic pancreas and adrenal glands are unchanged from prior and within normal limits. Cholecystectomy. Liver is within normal limits. Mildly atrophic kidneys with cortical thinning redemonstrated. Calcifications of the superior pole left kidney are again noted measuring up to 3 mm. Subcentimeter hypodensities of the kidneys are too small to characterize, likely cysts. Punctate nonobstructing calcification of the superior pole right kidney. No ureteral calculi or hydronephrosis. Prostatomegaly. Bladder wall thickening with partial distention and perivesicular stranding. A suprapubic catheter is noted in the urinary bladder. Air with hyperdense material in the bladder lumen may represent blood products. Vascular calcifications of the penis. Atheroscle rosis of the aorta without aneurysm. No lymphadenopathy. Postoperative changes of the stomach. Colonic diverticulosis. Moderate colonic fecal retention. Rectal wall thickening with partial distention. Mild adjacent inflammatory stranding. Subcentimeter hyperdense focus in the mid appendiceal lumen may represent an appendicolith versus retained enteric contrast. No CT evidence of acute appendicitis. No acute fracture. Subacute proximal left femoral fracture with intertrochanteric nail and medullary kaveh. IMPRESSION: 1. No bowel obstruction or pneumoperitoneum. 2. Rectal wall thickening with partial distention and perirectal inflammatory stranding. Findings are nonspecific and could be correlated with colonoscopy. 3. Prostamegaly with findings suggestive of chronic outlet obstruction. Corre late with urinalysis. 4. Healing fixated subacute intertrochanteric left femoral fracture. 5. Colonic diverticulosis. 6. Additional findings as above. Medications Administered ER medications given: Normal saline 2 L bolus Cefepime 2 g IV Morphine 4 mg IV Ertapenem 1 g IV Plasma-Lyte 1 L bolus ECG Rate (beats per minute): 79 Rhythm: atrial fibrillation Findings: + other (Low voltage QRS) Comparison ECG Date: from (August 19, 2023) Change: the following changes noted (T wave inversions no longer evident in inferior leads) Code Status & VTE Plan Code Status Full VTE Prophylaxis Plan VTE Prophylaxis will be ordered: Yes PG Care Time/CCT Total # of Minutes Spent Total Time Spent with Patient: Total time spent is greater than 50% in coordination of care (as documented) at patient's floor/unit and/or counseling patient: Coding Level of Care Code 27749 INT INP/OBS CARE MIN Diagnoses Hypotension I95.9 Hypotension type: unspecified hypotension type Chest pain R07.9 Chest pain type: unspecified Catheter-associated urinary tract infection T83.511A; N39.0 Suprapubic catheter Z93.59 SUE (obstructive sleep apnea) G47.33 Acquired hypothyroidism E03.9 Hypothyroidism type: acquired Gastroesophageal reflux disease, esophagitis presence not specified K21.9 Esophagitis presence: esophagitis presence not specified (1) Hypotension Hypotension type: unspecified hypotension type Qualified Code(s): I95.9 - Hypotension, unspecified (2) Chest pain Chest pain type: unspecified Qualified Code(s): R07.9 - Chest pain, unspecified (6) Hypothyroidism Hypothyroidism type: acquired Qualified Code(s): E03.9 - Hypothyroidism, un specified (7) GERD (gastroesophageal reflux disease) Esophagitis presence: esophagitis presence not specified Qualified Code(s): K21.9 - Gastro-esophageal reflux disease without esophagitis
[2023-09-27] MEDS: ACETAMINOPHEN 325 MG TAB PO PRN (17:54)
[2023-09-27] MEDS ORDERED: MICONAZOLE NITRATE POWDER 85 GM EXT PRN (18:13)
[2023-09-27] MEDS: LACTATED RINGER'S 1,000 ML IV SCH (18:31)
[2023-09-27] MEDS: oxyCODONE HCL IR 5 MG TAB (IMMEDIATE RELEASE) PO PRN (18:31)
[2023-09-27] MEDS: MAGNESIUM OXIDE 400 MG TAB PO SCH (21:27)
[2023-09-27] MEDS: APIXABAN 2.5 MG TAB PO SCH (21:27)
[2023-09-27] MEDS: SENNA 8.6 MG TAB PO SCH (21:27)
[2023-09-27] MEDS: GABAPENTIN 100 MG CAP PO SCH (21:27)
[2023-09-27] MEDS: PANTOprazole 40 MG TAB PO SCH (21:27)
[2023-09-27] MEDS: SODIUM BICARBONATE 650 MG TAB PO SCH (21:27)
[2023-09-27] MEDS: METOPROLOL TARTRATE 25 MG TAB PO SCH (21:30)
[2023-09-28] MEDS: LEVOTHYROXINE SODIUM 25 MCG TABLET PO SCH (05:12)
[2023-09-28 06:35] LABS: Basophils # (auto) 0.05 K/uL (0.00-0.20); Eosinophils % (auto) 10.2 %; Hematocrit (blood only) 29.2 % (42.0-52.0); Hemoglobin 8.7 g/dl (14.0-18.0); Immature Granulocytes # (auto) 0.02 K/uL (0.01-0.20); Immature Granulocytes % (auto) 0.4 %; Lymphocytes % (auto) 28.5 %; Mean Corpuscular Hemoglobin 28.8 pg (25.0-34.0); Mean Corpuscular Hgb Conc 29.8 g/dL (32.0-36.0); Mean Corpuscular Volume 96.7 fL (80.0-100.0); Mean Platelet Volume 10.7 fL (9.4-12.4); Monocytes # (auto) 0.48 K/uL (0.11-0.59); Monocytes % (auto) 9.8 %; Neutrophils # (auto) 2.46 K/uL (1.40-6.50); Neutrophils % (auto) 50.1 %; Platelet Count 264 K/uL (130-400); RDW Coefficient of Variation 14.9 % (11.5-14.5); RDW Standard Deviation 52.6 fL (36.4-46.3); Red Blood Count 3.02 M/uL (4.70-6.10); White Blood Count 4.91 K/ul (4.8-10.8)
[2023-09-28 07:11] LABS: Albumin Globulin Ratio 0.8 (0.9-2); Albumin Level 2.4 gm/dl (3.4-5.0); BUN Creatinine Ratio 17.7 (10-20); Bilirubin,Total 0.3 mg/dl (0.2-1.0); Calcium 8.6 mg/dl (8.6-10.3); Creatinine Clr Calc Pharmacy 28.9 ml/min; Est GFR (African American) 35.5 ml/min; Est GFR (Non-African American) 30.6 ml/min; Globulin 3.1 gm/dl (2.5-4.0); Magnesium 2.1 mg/dl (1.7-2.4); Total Protein 5.5 gm/dl (6.0-8.3)
[2023-09-28] MEDS: CLOPIDOGREL BISULFATE 75 MG TAB PO SCH (08:53)
[2023-09-28] MEDS: FERROUS SULFATE 325 MG TAB PO SCH (08:53)
[2023-09-28] MEDS: OXYBUTYNIN CHLORIDE XL 5 MG TABCR PO SCH (08:54)
[2023-09-28] MEDS: POLYETHYLENE (MIRALAX) 17 GM PACK PO SCH (08:54)
[2023-09-28] MEDS: CALCITRIOL 0.25 MCG CAPSULE PO SCH (08:54)
[2023-09-28] MEDS: CALCIUM 600MG + VIT D 400 IU TAB PO SCH (08:54)
[2023-09-28] MEDS: MULTIVITAMIN TAB PO SCH (08:54)
[2023-09-28] MEDS: VITAMIN B COMPLEX TAB PO SCH (08:54)
--- NOTE | 2023-09-28 11:08 | Urology Consultation ---
Date of Consultation September 28, 2023 Assessment & Plan (1) Suprapubic catheter: (2) Catheter-associated urinary tract infection: Plan 88 yo/M with history of penile cancer status post partial penectomy at [facility] and subsequent placement of suprapubic catheter at [facility] on 08/12/2023 admitted for hypotension and suspicion of acute UTI. Urology is consulted for suprapubic catheter exchange Urine culture prelim with gram-negative bacilli Blood cultures pending Suprapubic catheter is patent and draining with some sediment and debris He is due to have his suprapubic catheter exchanged Typically first suprapubic catheter exchange after surgical placement is done by performing surgeon Sury had reached out to Dr. Carranza, patient's local urologist, to do first exchange and he is agreeable He was scheduled to have exchange with Dr. Carranza outpatient Will plan to exchange his suprapubic catheter later this week while hospitalized Continue broad-spectrum antibiotics and narrow per sensitivity data when available Continue to monitor catheter and can hand irrigate if needed will follow peripherally until exchange History of Present Illness Reason for Consultation: Suprapubic catheter change, CAUTI Requesting Physician: Dr. Del Rosario Attending Physician: Hardy Tan History of Present Illness This is an 88-year-old male with history of dementia, penile cancer s/p partial penectomy at [facility], suprapubic catheter placement at [facility] on 08/12/2023, recurrent UTIs, recent left hip fracture status post intramedullary nail fixation on 08/19/2023, and multiple comorbidities who presented to the emergency department from [facility] on 09/27/2023 for evaluation of syncopal episode, hypotension and chest pain. On arrival, he was afebrile, hypotensive with systolic pressures in the 80s. Labs showed creatinine 2.25, WBC 5.87, hemoglobin 11.0, glucose 67, Troponin within normal limits. Lactate was normal at 1.3. Urinalysis showed turbid urine, 3+ blood, positive nitrates, 3+ LE, >50 WBC, >20 RBC, 11-20 epithelials and 4+ bacteria. Urine and blood cultures obtained. ED course: IV fluids, acetaminophen, cefepime, ertapenem, and morphine. Imaging with CT A/p showed prostatomegaly with findings suggestive of a chronic outlet obstruction; suprapubic catheter is noted in the urinary bladder, air with hyperdense material noted within the bladder. Urology consulted for suprapubic catheter change. Patient is s/p suprapubic catheter placement on 08/12/23 at [facility]. Suprapubic catheter has not been changed since surgical placement. Labs today- Creatinine 1.92, WBC 4.91, hemoglobin 8.7 Urine culture prelim with gram-negative bacilli Blood cultures pending Patient seen and examined at bedside. He is awake and resting in bed, no apparent distress. Denies pain. He is unable to provide much meaningful history. Denies nausea, vomiting, fever or chills. Allergies Allergy/AdvReac Type Severity Reaction Status Date / Time iron [From Venofer] AdvReac Mild warm Verified 08/18/23 18:19 sensation/flushing, discomfort in arm in which it was i Home Medications Medication Instructions Recorded Confirmed Type calcium carbonate 500 mg-vitamin 1 tab PO QAM 12/18/19 09/27/23 History D3 5 mcg (200 unit) tablet (Calcium 500 + D) vitamin B complex 1 tab PO QAM 12/18/19 09/27/23 History Lactobacillus acidophilus 10 10,000 mmu cells PO QDD 01/18/21 09/27/23 History billion cell capsule (Probiotic) multivitamin 1 tab PO DAILY 08/01/22 09/27/23 History sodium bicarbonate 650 mg tablet 650 mg PO BID Stomach upset #180 08/10/22 09/27/23 Rx tabs calcitriol 0.25 mcg capsule 0.25 mcg PO DAILY #90 caps 10/06/22 09/27/23 Rx magnesium oxide 400 mg (241.3 mg 400 mg PO BID #180 tabs 11/23/22 09/27/23 Rx magnesium) tablet acetaminophen 500 mg tablet 1,000 mg PO Q8H PRN Pain 12/22/22 09/27/23 History (Tylenol Extra Strength) apixaban 2.5 mg tablet (Eliquis) 2.5 mg PO BID #180 tabs 04/15/23 09/27/23 Rx clopidogrel 75 mg tablet (Plavix) 75 mg PO DAILY #90 tabs 04/15/23 09/27/23 Rx ferrous sulfate 325 mg (65 mg 325 mg PO DAILY 04/27/23 09/27/23 History iron) tablet,delayed release levothyroxine 25 mcg tablet 25 mcg PO DAILYBB 90 days #90 tabs 05/27/23 09/27/23 Rx (Synthroid) tamsulosin 0.4 mg capsule 0.4 mg PO DAILY #90 caps 06/14/23 09/27/23 Rx omeprazole 40 mg capsule,delayed 40 mg PO BID 90 days #180 caps 06/23/23 09/27/23 Rx release gabapentin 100 mg capsule 100 mg PO BID #180 caps 08/05/23 09/27/23 Rx miconazole nitrate 2 % topical 1 applic EXT BID PRN as directed 08/13/23 09/27/23 History powder (Desenex) oxybutynin chloride 5 mg 5 mg PO QAM #30 tabs 08/18/23 09/27/23 Rx tablet,extended release 24 hr cholecalciferol (vitamin D3) 1,250 1,250 mcg PO WK 09/27/23 09/27/23 History mcg (50,000 unit) tablet metoprolol tartrate 25 mg tablet 25 mg PO BID 09/27/23 09/27/23 History oxycodone 5 mg tablet 5 mg PO Q6H PRN Severe pain 9-10 09/27/23 09/27/23 History polyethylene glycol 3350 17 gram 17 g PO DAILY 09/27/23 09/27/23 History oral powder packet (Miralax) sennosides 8.6 mg tablet 8.6 mg PO BID 09/27/23 09/27/23 History Patient History Medical History Chronic kidney disease, stage III (moderate) Cellulitis of groin Sleep apnea Dementia Chronic renal insufficiency, stage IV (severe) SCC (squamous cell carcinoma), penis Atrial fibrillation no cardioversions/ no pacer. treated with medication and follows with PCP GERD (gastroesophageal reflux disease) Stage 3b chronic kidney disease Acute UTI Pain in penis Lumbosacral facet joint syndrome Discogenic lumbar pain Acute metabolic encephalopathy UTI (urinary tract infection) Rib pain on left side Syncopal episodes COVID-19 Penile cancer KENROY (acute kidney injury) Unresponsiveness Anemia of chronic disease Diarrhea SCC (squamous cell carcinoma), penis Chronic pruritus Hypothyroidism Secondary hyperparathyroidism of renal origin Orthostatic hypotension Vitamin D deficiency SBO (small bowel obstruction) Small bowel obstruction due to adhesions Rectal bleed BRBPR (bright red blood per rectum) Dementia Hyperkalemia Acute cholecystitis Substernal chest pain resolved per pt Dysphagia "trouble keeping foods down" Fall walker and cane -- fall risk. Colitis Concussion Degenerative disc disease Osteoarthritis History of bleeding ulcers Diabetes mellitus, type 2 diet controlled Hx of migraines Hx of sleep apnea no device Balanoposthitis Phimosis DDD (degenerative disc disease), lumbar Atrial fibrillation (04/22/12) Peptic ulcer disease BPH w urinary obs/LUTS Anal fistula Fall LAST FALL 1 WEEK AGO Hypoglycemia Bradycardia Surgical History S/P laparoscopic cholecystectomy (09/17/20) Laparoscopic Cholecystectomy with Cholangiogram with akira drain 09/17/20 Dr. Atkinson Hx of circumcision 2 yrs ago H/O knee surgery "MULTIPLE KNEE SURGERIES"- R/L History of total shoulder replacement LEFT History of total knee replacement RT/LEFT History of esophagogastroduodenoscopy (EGD) History of colonoscopy History of tooth extraction Hx of transurethral resection of prostate H/O gastric bypass 2004 Family History Sister Family history of diabetes mellitus Social History Smoking Status: Never smoker Tobacco Type: Cigarettes Second Hand Exposure: No; Do You Dip or Chew Tobacco: No; Hx Alcohol Use: No Hx Substance Use: No Preferred Language: Pakistani Communication Ability: Impaired Communication Ability Comment: can be forgetful Medical Sales Associate Required: No Beliefs That Will Affect Care: None marital status: Current Living Situation: Spouse Current Living Situation Comment: At home with current occupational status: retired Feels Safe at Home: Yes Diet: regular caffeine: No Dental Care, Regularly: Yes Seatbelt Use: always Assistive Devices: Walker Review of Systems Review of Systems: All systems reviewed & are unremarkable except as noted in HPI & below Physical Exam Constitutional: well developed and well nourished; no acute distress Respiratory: normal respiratory effort; no respiratory distress and no labored breathing Gastrointestinal (Abdomen): Inspection/Auscultation: abdomen normal to inspection Musculoskeletal: Head/Neck/Chest: normocephalic Neurologic: moves all extremities and awake Psychiatric: Orientation: alert and oriented to person Genitourinary: Suprapubic catheter patent draining yellow urine with moderate debris and sediment in tubing Results & Data Vital Signs (Past 12 Hours) Vital Signs Temp Pulse Pulse Resp BP Pulse Ox O2 Del Method 09/28/23 08:04 36.7 C 83 19 91/60 L 97 Room Air 09/28/23 07:33 79 09/28/23 02:12 36.7 C 90 17 103/55 L 98 Room Air 09/27/23 23:23 91 H PG Care Time/CCT Total # of Minutes Spent Total Time Spent with Patient: Total time spent is greater than 50% in coordination of care (as documented) at patient's floor/unit and/or counseling patient: Coding Level of Care Code 58528 INT INP/OBS CARE 2/55MIN Diagnoses Suprapubic catheter Z93.59 Catheter-associated urinary tract infection T83.511A; N39.0
[2023-09-28] MEDS: ERTAPENEM SODIUM 500 MG in SYRINGE 0 ML IV SCH (12:53)
[2023-09-28] MEDS ORDERED: ERTAPENEM SODIUM 1,000 MG in SYRINGE 0 ML IV SCH (14:00)
[2023-09-28] MEDS: LACTOBACILLUS ACIDOPHILUS 1 GM PACK PO SCH (16:23)
--- NOTE | 2023-09-28 23:05 | Hospitalist Progress Note ---
Date of Service September 28, 2023 Assessment & Plan (1) Hypotension: Plan: On review of blood pressure measurements on metoprolol scheduling appears this is not too unusual for him but appeared much more symptomatic today. He missed morning doses on the -, , , - of metoprolol due to low blood pressure. Lactate normal on admission Likely acutely worse in setting of CAUTI Resolved after IV fluids in the ER Hold tamsulosin - can confirm with urology tomorrow but no anatomical reason he should continue to need this now with suprapubic catheter Continue metoprolol for rate control (reduce hold parameters to sBP < 90) If continues despite stopping tamsulosin and treatment for CAUTI may have to consider fludrocortisone/midodrine Consulted Urology: plan to exchange urinary catheter on 09/29 continue antibiotics awaiting cultures. (2) Chest pain: Plan: Main reason he was sent to the ER. Multiple prior episodes listed in chart, atypical chest pain noted in cardiology note from 04/27/2023, currently resolved when seen on admission Troponin x2 negative, EKG unremarkable Possibly related to hypotension (3) Catheter-associated urinary tract infection: Plan: Dysuria Ertapenem prescribed based on prior culture results Suprapubic catheter not changed since June per as waiting on a physician that is needed to do it - awaiting appointment with urology (4) Suprapubic catheter: Plan: Consult urology for exchange - reportedly has been waiting for this for a while as outpatient as unable to be arranged back at [facility] (5) SUE (obstructive sleep apnea): Plan: Does not wear CPAP HS per group home staff (6) Hypothyroidism: Plan: TSH 2.932 in August Continue current levothyroxine dosing (7) GERD (gastroesophageal reflux disease): Plan: Switch from omeprazole to pantoprazole per hospital formulary Plan VTE Prophylaxis - Eliquis Diet - regular Disposition - admit to PCU Admission and Anticipated Discharge Date Admission Date: September 27, 2023 Subjective Patient reports no new symptoms. Review of Systems Review of Systems: All systems reviewed & are unremarkable except as noted in HPI & below Physical Exam Constitutional: well developed; + not well nourished and no acute distress Eyes: PERRL, conjunctivae normal, anicteric sclerae ENMT: external ear and nose normal, oropharynx normal Respiratory: normal respiratory effort, lungs clear to auscultation Cardiovascular: Rate/Rhythm: regular rate and + irregularly irregular Heart Sounds: no murmur Extremities: normal capillary refill; no calf tenderness and no pedal edema Chest (Breasts): Additional Comments: no pain on chest palpation Gastrointestinal (Abdomen): normal bowel sounds, soft, nontender, no hepatosplenomegaly Musculoskeletal: no cyanosis or clubbing, extremities motor strength 5/5 Skin: no rashes, warm and dry Neurologic: awake Psychiatric: Orientation: alert, oriented to person and oriented to place (aware he is in hospital but not sure which one); + not oriented to time Genitourinary: no CVA tenderness Results & Data Results & Data Vital Signs (Past 12 Hours) Vital Signs Temp Pulse Pulse Resp BP Pulse Ox O2 Del Method 09/28/23 19:06 36.6 C 81 18 101/61 97 Room Air 09/28/23 15:58 36.7 C 90 18 107/70 97 Room Air 09/28/23 15:22 75 09/28/23 11:17 36.6 C 96 H 19 96/56 L 97 Room Air PG Care Time/CCT Total # of Minutes Spent Total Time Spent with Patient: Total time spent is greater than 50% in coordination of care (as documented) at patient's floor/unit and/or counseling patient: Coding Level of Care Code 73406 SUB INP/OBS CARE 235MIN Diagnoses Hypotension I95.9 Hypotension type: unspecified hypotension type Chest pain R07.9 Chest pain type: unspecified Catheter-associated urinary tract infection T83.511A; N39.0 Suprapubic catheter Z93.59 SUE (obstructive sleep apnea) G47.33 Acquired hypothyroidism E03.9 Hypothyroidism type: acquired Gastroesophageal reflux disease, esophagitis presence not specified K21.9 Esophagitis presence: esophagitis presence not specified (1) Hypotension Hypotension type: unspecified hypotension type Qualified Code(s): I95.9 - Hypotension, unspecified (2) Chest pain Chest pain type: unspecified Qualified Code(s): R07.9 - Chest pain, u nspecified (6) Hypothyroidism Hypothyroidism type: acquired Qualified Code(s): E03.9 - Hypothyroidism, unspecified (7) GERD (gastroesophageal reflux disease) Esophagitis presence: esophagitis presence not specified Qualified Code(s): K21.9 - Gastro-esophageal reflux disease without esophagitis
[2023-09-29 06:04] LABS: Hematocrit (blood only) 28.3 % (42.0-52.0); Hemoglobin 8.8 g/dl (14.0-18.0); Mean Corpuscular Hemoglobin 29.3 pg (25.0-34.0); Mean Corpuscular Hgb Conc 31.1 g/dL (32.0-36.0); Mean Corpuscular Volume 94.3 fL (80.0-100.0); Mean Platelet Volume 10.7 fL (9.4-12.4); Platelet Count 257 K/uL (130-400); RDW Coefficient of Variation 15.1 % (11.5-14.5); RDW Standard Deviation 52.5 fL (36.4-46.3); White Blood Count 5.65 K/ul (4.8-10.8)
[2023-09-29 06:19] LABS: BUN Creatinine Ratio 14.2 (10-20); C Reactive Protein 1.44 mg/dl (0-0.5); Calcium 8.6 mg/dl (8.6-10.3); Creatinine Clr Calc Pharmacy 28.1 ml/min; Est GFR (African American) 34.4 ml/min; Est GFR (Non-African American) 29.7 ml/min; Potassium 4.4 mmol/L (3.5-5.1)
--- NOTE | 2023-09-29 21:53 | Hospitalist Progress Note ---
Date of Service September 29, 2023 Assessment & Plan (1) Hypotension: Plan: On review of blood pressure measurements on metoprolol scheduling appears this is not too unusual for him but appeared much more symptomatic today. He missed morning doses on the -, , , - of metoprolol due to low blood pressure. Lactate normal on admission Likely acutely worse in setting of CAUTI Resolved after IV fluids in the ER Hold tamsulosin - can confirm with urology tomorrow but no anatomical reason he should continue to need this now with suprapubic catheter Continue metoprolol for rate control (reduce hold parameters to sBP < 90) If continues despite stopping tamsulosin and treatment for CAUTI may have to consider fludrocortisone/midodrine Consulted Urology: plan to exchange urinary catheter on 09/29 continue antibiotics cultures continue to show ESBL e. coli sensitive to ertapenem (2) Chest pain: Plan: Main reason he was sent to the ER. Multiple prior episodes listed in chart, atyp ical chest pain noted in cardiology note from 04/27/2023, currently resolved when seen on admission Troponin x2 negative, EKG unremarkable Possibly related to hypotension (3) Catheter-associated urinary tract infection: Plan: Dysuria Ertapenem prescribed based on prior culture results Suprapubic catheter not changed since June per as waiting on a physician that is needed to do it - awaiting appointment with urology (4) Suprapubic catheter: Plan: Consult urology for exchange - reportedly has been waiting for this for a while as outpatient as unable to be arranged back at [facility] (5) SUE (obstructive sleep apnea): Plan: Does not wear CPAP HS per shelter staff (6) Hypothyroidism: Plan: TSH 2.932 in August Continue current levothyroxine dosing (7) GERD (gastroesophageal reflux disease): Plan: Switch from omeprazole to pantoprazole per hospital formulary Plan Chronic kidney disease, stage 4 creatinine at baseline VTE Prophylaxis - Eliquis Diet - regular Disposition - admit to PCU Updated on 09/28 Likely discharge after cath exchanged would recommend an extended dose of ertapenem for about 10 days. Admission and Anticipated Discharge Date Admission Date: September 27, 2023 Subjective Patient reports feeling well. 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 Awaiting suprapubic cath tomorrow. Review of Systems Review of Systems: All systems reviewed & are unremarkable except as noted in HPI & below Physical Exam Constitutional: well developed; + not well nourished and no acute distress Eyes: PERRL, conjunctivae normal, anicteric sclerae ENMT: external ear and nose normal, oropharynx normal Respiratory: normal respiratory effort, lungs clear to auscultation Cardiovascular: Rate/Rhythm: regular rate and + irregularly irregular Heart Sounds: no murmur Extremities: normal capillary refill; no calf tenderness and no pedal edema Gastrointestinal (Abdomen): normal bowel sounds, soft, nontender, no hepatosplenomegaly Musculoskeletal: no cyanosis or clubbing, extremities motor strength 5/5 Skin: no rashes, warm and dry Neurologic: awake Psychiatric: Orientation: alert, oriented to person and oriented to place (aware he is in hospital but not sure which one); + not oriented to time Genitourinary: no CVA tenderness Results & Data Results & Data Vital Signs (Past 12 Hours) Vital Signs Temp Pulse Pulse Resp BP BP Pulse Ox 09/29/23 19:12 36.5 C 83 18 101/63 97 09/29/23 18:37 78 09/29/23 17:49 99/68 L 09/29/23 15:09 36.8 C 82 20 84/56 L 98 09/29/23 11:23 36.9 C 79 12 106/56 L 96 O2 Del Method 09/29/23 19:12 Room Air 09/29/23 18:37 09/29/23 17:49 09/29/23 15:09 Room Air 09/29/23 11:23 Room Air PG Care Time/CCT Total # of Minutes Spent Total Time Spent with Patient: Total time spent is greater than 50% in coordination of care (as documented) at patient's floor/unit and/or counseling patient: Coding Level of Care Code 83725 SUB INP/OBS CARE 2/35MIN Diagnoses Hypotension I95.9 Hypotension type: unspecified hypotension type Chest pain R07.9 Chest pain type: unspecified Catheter-associated urinary tract infection T83.511A; N39.0 Suprapubic catheter Z93.59 SUE (obstructive sleep apnea) G47.33 Acquired hypothyroidism E03.9 Hypothyroidism type: acquired Gastroesophageal reflux disease, esophagitis presence not specified K21.9 Esophagitis presence: esophagitis presence not specified (1) Hypotension Hypotension type: unspecified hypotension type Qualified Code(s): I95.9 - Hypotension, unspecified (2) Chest pain Chest pain type: unspecified Qualified Code(s): R07.9 - Chest pain, unspecified (6) Hypothyroidism Hypothyroidism type: acquired Qualified Code(s): E03.9 - Hypothyroidism, unspecified (7) GERD (gastroesophageal reflux disease) Esophagitis presence: esophagitis presence not specified Qualified Code(s): K21.9 - Gastro-esophageal reflux disease without esophagitis
[2023-09-30 06:01] LABS: Hematocrit (blood only) 28.9 % (42.0-52.0); Mean Corpuscular Hemoglobin 29.5 pg (25.0-34.0); Mean Corpuscular Hgb Conc 31.1 g/dL (32.0-36.0); Mean Corpuscular Volume 94.8 fL (80.0-100.0); Mean Platelet Volume 10.6 fL (9.4-12.4); Platelet Count 255 K/uL (130-400); RDW Coefficient of Variation 15.1 % (11.5-14.5); RDW Standard Deviation 52.5 fL (36.4-46.3); Red Blood Count 3.05 M/uL (4.70-6.10)
[2023-09-30 06:15] LABS: BUN Creatinine Ratio 12.6 (10-20); Calcium 8.8 mg/dl (8.6-10.3); Creatinine Clr Calc Pharmacy 27.9 ml/min; Est GFR (Non-African American) 29.3 ml/min; Potassium 4.6 mmol/L (3.5-5.1)
--- NOTE | 2023-09-30 07:55 | Hospitalist Progress Note ---
Date of Service September 30, 2023 Assessment & Plan (1) Hypotension: Plan: associated with metoprolol, now changed to coreg Likely acutely worse in setting of CAUTI Stopping tamsulosin Consulted Urology: s/p exchange suprapubic urinary catheter on 09/29 continue antibiotics, cultures continue to show ESBL e. coli sensitive to ertapenem 10 day course LD 10/06/23 (2) Hypothyroidism: Plan: Chronic and stable TSH 2.932 in August Continue current levothyroxine dosing (3) GERD (gastroesophageal reflux disease): Plan: Switch from omeprazole to pantoprazole per hospital formulary (4) SUE (obstructive sleep apnea): Plan: Does not wear CPAP HS per long-term staff Plan VTE Prophylaxis - Eliquis Diet - regular Disposition - admit to PCU Updated on 09/29 at bedside needs to return to [facility] care would recommend an extended dose of ertapenem for about 10 days. Admission and Anticipated Discharge Date Admission Date: September 27, 2023 Results & Data Results & Data Vital Signs (Past 12 Hours) Vital Signs Temp Pulse Pulse Resp BP BP Pulse Ox 09/30/23 07:11 97.7 F 97 H 12 99/71 L 95 09/30/23 03:14 98.6 F 99 H 18 104/61 96 09/29/23 22:29 97.9 F 76 18 120/64 96 09/29/23 21:58 85 O2 Del Method 09/30/23 07:11 Room Air 09/30/23 03:14 Room Air 09/29/23 22:29 Room Air 09/29/23 21:58 Laboratory Results Reviewed CBC reviewed chemistry. Patient has CKD 4 And anemia of chronic disease PG Care Time/CCT Total # of Minutes Spent Total Time Spent with Patient: Total time spent is greater than 50% in coordination of care (as documented) at patient's floor/unit and/or counseling patient: Coding Level of Care Code 08640 SUB INP/OBS CARE 2/35MIN Diagnoses Hypotension I95.9 Hypotension type: unspecified hypotension type Acquired hypothyroidism E03.9 Hypothyroidism type: acquired Gastroesophageal reflux disease, esophagitis presence not specified K21.9 Esophagitis presence: esophagitis presence not specified SUE (obstructive sleep apnea) G47.33 (1) Hypotension Hypotension type: unspecified hypotension type Qualified Code(s): I95.9 - Hypotension, unspecified (2) Hypothyroidism Hypothyroidism type: acquired Qualified Code(s): E03.9 - Hypothyroidism, unspecified (3) GERD (gastroesophageal reflux disease) Esophagitis presence: esophagitis presence not specified Qualified Code(s): K21.9 - Gastro-esophageal reflux disease without esophagitis
--- NOTE | 2023-09-30 08:05 | Urology Progress Note ---
Date of Service September 30, 2023 Assessment & Plan (1) Catheter-associated urinary tract infection: (2) Suprapubic catheter: Plan 88 yo/M with history of penile cancer status post partial penectomy at [facility] and subsequent placement of suprapubic catheter at [facility] on 08/12/2023 admitted for hypotension and suspicion of acute UTI. Suprapubic catheter exchanged at bedside by Dr. Carranza. This was the first exchange post suprapubic catheter placement 08/12/2023. [facility] aware that first exchange would be done by his local urologist. Patient tolerated procedure well, catheter draining appropriately. Urine culture grew E. coli ESBL, continue ertapenem, last day 10/06/23 Blood culture still pending Other medical management and care per hospital team Will arrange future suprapubic catheter exchanges outpatient in our office-next change in approximately 4 weeks Urology team will sign off for now, please call with any questions or concerns. Admission and Anticipated Discharge Date Admission Date: September 27, 2023 Subjective Patient resting comfortably in bed Aware he is awaiting a procedure (suprapubic catheter exchange) Denying complaints of pain or discomfort Catheter draining clear yellow with sediment noted prior to exchange Creatinine 09/30/2023 1.99 Urine culture grew E. coli ESBL Blood cultures pending Suprapubic catheter was exchanged at the bedside in the following fashion: Verbal consent was obtained from the patient. The balloon was deflated (5 cc) and previous catheter was removed. Sterile field was prepared, patient was prepped and draped in the usual sterile fashion. A well lubricated 14 [place]ian silicone catheter was inserted through the suprapubic site, past the fascia. Patient had a sense of pressure, suggesting good position in the bladder. the balloon was inflated with 5 cc of normal saline. Catheter was then irrigated with 60 cc and deepika back clear yellow fluid, also indicating good position of the bladder. The catheter was attached to gravity drainage and secured with a StatLock. Patient tolerated procedure well with no immediate complications. Review of Systems Constitutional: as per Subjective / HPI Genitourinary: + as per Subjective / HPI Physical Exam Constitutional: well developed and well nourished; no acute distress Respiratory: normal respiratory effort; no respiratory distress, does not use accessory muscles and normal respiratory pattern Cardiovascular: well perfused Gastrointestinal (Abdomen): Inspection/Auscultation: abdomen normal to inspection Musculoskeletal: Extremities: extremities normal to inspection Skin: Minimal erythema around suprapubic site No drainage noted Neurologic: awake Speech / Cognition: normal speech Psychiatric: Orientation: alert Genitourinary: Catheter draining clear yellow with sediment noted Results & Data Vital Signs (Past 12 Hours) Vital Signs Temp Pulse Pulse Resp BP BP Pulse Ox 09/30/23 07:11 36.5 C 97 H 12 99/71 L 95 09/30/23 03:14 37.0 C 99 H 18 104/61 96 09/29/23 22:29 36.6 C 76 18 120/64 96 09/29/23 21:58 85 O2 Del Method 09/30/23 07:11 Room Air 09/30/23 03:14 Room Air 09/29/23 22:29 Room Air 09/29/23 21:58 PG Care Time/CCT Total # of Minutes Spent Total Time Spent with Patient: Total time spent is greater than 50% in coordination of care (as documented) at patient's floor/unit and/or counseling patient: Coding Level of Care Code 58746 SUB INP/OBS CARE 2/35MIN Diagnoses Urinary tract infection associated with catheterization of urinary tract, unspecified indwelling urinary catheter type, subsequent encounter T83.511D; N39.0 Encounter type: subsequent encounter Indwelling urinary catheter type: unspecified Suprapubic catheter Z93.59 Comment would add CPT 35520 for suprapubic catheter exchange. (1) Catheter-associated urinary tract infection Encounter type: subsequent encounter Indwelling urinary catheter type: unspecified Qualified Code(s): T83.511D - Infection and inflammatory reaction due to indwelling urethral catheter, subsequent encounter; N39.0 - Urinary tract infection, site not specified
[2023-09-30] MEDS: METOPROLOL TARTRATE 25 MG TAB PO SCH (10:24)
[2023-09-30] MEDS: carvediloL 3.125 MG TAB PO SCH (18:01)
[2023-10-01 08:37] LABS: Hematocrit (blood only) 32.2 % (42.0-52.0); Hemoglobin 9.9 g/dl (14.0-18.0); Mean Corpuscular Hemoglobin 29.3 pg (25.0-34.0); Mean Corpuscular Hgb Conc 30.7 g/dL (32.0-36.0); Mean Corpuscular Volume 95.3 fL (80.0-100.0); Mean Platelet Volume 10.6 fL (9.4-12.4); Platelet Count 244 K/uL (130-400); RDW Coefficient of Variation 14.9 % (11.5-14.5); RDW Standard Deviation 52.1 fL (36.4-46.3); Red Blood Count 3.38 M/uL (4.70-6.10); White Blood Count 6.56 K/ul (4.8-10.8)
[2023-10-01 08:51] LABS: BUN Creatinine Ratio 12.1 (10-20); Calcium 8.5 mg/dl (8.6-10.3); Creatinine Clr Calc Pharmacy 27.9 ml/min; Est GFR (Non-African American) 29.3 ml/min
[2023-10-01] MEDS: ERGOCALCIFEROL 1250 MCG (50,000 UNITS) CAP PO SCH (08:58)
--- NOTE | 2023-10-01 18:18 | Discharge Summary ---
Discharge Summary Date of Service October 01, 2023 Notes For Next Care Provider changed metoprolol to coreg complete ertapenem, check urine culture after complete stopped tamsulosin Admission HPI Per Admitting Provider Cl Watson is an 88-year-old male from [facility] with dementia who presents to the ER with an episode of sharp chest pain radiating down the left arm. Paitne unable to give me much of a history due to dementia and only has second hand knowledge at bedside. Discussed care with RN Td. Patient complained of chest pain this morning for [facility] around 9:15am, BP 90/57. They had him lying down and he started feeling better. Around an hour later he started complaining of chest pain again radiating down his arm and into back. He appeared pale with his BP 78/47, HR 80-90 with normal oxygen saturations. He became more tired, lethargic and less responsive. On discussion with the provider at [facility] (Dr Reis) the patient has been complaining of dysuria around his suprapubic catheter for the last 2 days. EMS reports 10/10 severity left hip pain which the patient currently denies. Following fluid resuscitation the patient also currently denies any dizziness, chest pain, shortness of breath or palpitations. He thinks he may have some diarrhea "some time ago" (on review of [facility] drug charting he is on regular laxatives). Hypotension now appears resolved following IV fluid resuscitation in the ER. Principal Dx & Hospital Course #1 = Principal Diagnosis (1) Hypotension: associated with metoprolol, now changed to coreg Likely acutely worse in setting of CAUTI Consulted Urology: s/p exchange suprapubic urinary catheter on 09/29 continue antibiotics, cultures continue to show ESBL e. coli sensitive to ertapenem 10 day course LD 10/06/23 (2) Hypothyroidism: Chronic and stable TSH 2.932 in August Continue current levothyroxine dosing (3) GERD (gastroesophageal reflux disease): Switch from omeprazole to pantoprazole per hospital formulary (4) SUE (obstructive sleep apnea): Does not wear CPAP HS per detention staff Plan VTE Prophylaxis - Eliquis Diet - regular Disposition - admit to PCU Updated on day of discharge to return to [facility] [place] . Discharge Exam awake and alert, no new complaints is forgetful Updated Medication List Medication Instructions Recorded Confirmed Type calcium carbonate 500 mg-vitamin 1 tab PO QAM 12/18/19 09/27/23 History D3 5 mcg (200 unit) tablet (Calcium 500 + D) vitamin B complex 1 tab PO QAM 12/18/19 09/27/23 History Lactobacillus acidophilus 10 10,000 mmu cells PO QDD 01/18/21 09/27/23 History billion cell capsule (Probiotic) multivitamin 1 tab PO DAILY 08/01/22 09/27/23 History sodium bicarbonate 650 mg tablet 650 mg PO BID Stomach upset #180 08/10/22 09/27/23 Rx tabs calcitriol 0.25 mcg capsule 0.25 mcg PO DAILY #90 caps 10/06/22 09/27/23 Rx magnesium oxide 400 mg (241.3 mg 400 mg PO BID #180 tabs 11/23/22 09/27/23 Rx magnesium) tablet acetaminophen 500 mg tablet 1,000 mg PO Q8H PRN Pain 12/22/22 09/27/23 History (Tylenol Extra Strength) apixaban 2.5 mg tablet (Eliquis) 2.5 mg PO BID #180 tabs 04/15/23 09/27/23 Rx clopidogrel 75 mg tablet (Plavix) 75 mg PO DAILY #90 tabs 04/15/23 09/27/23 Rx ferrous sulfate 325 mg (65 mg 325 mg PO DAILY 04/27/23 09/27/23 History iron) tablet,delayed release levothyroxine 25 mcg tablet 25 mcg PO DAILYBB 90 days #90 tabs 05/27/23 09/27/23 Rx (Synthroid) omeprazole 40 mg capsule,delayed 40 mg PO BID 90 days #180 caps 06/23/23 09/27/23 Rx release gabapentin 100 mg capsule 100 mg PO BID #180 caps 08/05/23 09/27/23 Rx miconazole nitrate 2 % topical 1 applic EXT BID PRN as directed 08/13/23 09/27/23 History powder (Desenex) oxybutynin chloride 5 mg 5 mg PO QAM #30 tabs 08/18/23 09/27/23 Rx tablet,extended release 24 hr cholecalciferol (vitamin D3) 1,250 1,250 mcg PO WK 09/27/23 09/27/23 History mcg (50,000 unit) tablet oxycodone 5 mg tablet 5 mg PO Q6H PRN Severe pain 9-10 09/27/23 09/27/23 History polyethylene glycol 3350 17 gram 17 g PO DAILY 09/27/23 09/27/23 History oral powder packet (Miralax) sennosides 8.6 mg tablet 8.6 mg PO BID 09/27/23 09/27/23 History carvedilol 3.125 mg tablet 3.125 mg PO BIDM #60 tabs 10/01/23 Rx ertapenem 1 gram solution for 500 mg IV DAILY 3 days #3 ea 10/01/23 Rx injection Hospital Stay Data Consultations 09/27/23 15:10 ED Decision to Admit Stat 09/27/23 17:45 Consult Urology Routine Diagnostic Imagining Performed 09/27/23 11:55 CT abd pelvis wo con Stat CT head/brain wo con Stat Pending Results Patient Have Any Pending Studies at Discharge: No Discharge Instructions Given to Patient (Per Discharging Provider) continue good suprapubic care, please check a ua culture at the completion of antibiotics on 10/06/23 arrange follow up for monthly changes at urology appointments Total Time Total Time Spent Total Time Spent (In Minutes): It required greater than 30 minutes to prepare this patient for discharge. Coding Level of Care Code 54982 INP/OBS DISCH >30 MIN Diagnoses Hypotension I95.9 Hypotension type: unspecified hypotension type Acquired hypothyroidism E03.9 Hypothyroidism type: acquired Gastroesophageal reflux disease, esophagitis presence not specified K21.9 Esophagitis presence: esophagitis presence not specified SUE (obstructive sleep apnea) G47.33
== END 2023-10-01 15:24 | DRG 699 ==
LOC: ED 11:44 → 2E 15:21 → SUATTDRO 15:21 → 2E 16:50
DX: Z79.899 Other long term (current) drug therapy; E55.9 Vitamin D deficiency, unspecified; N39.0 Urinary tract infection, site not specified; N40.1 Benign prostatic hyperplasia with lower urinary tract symptoms; T83.518A Infection and inflammatory reaction due to other urinary catheter, initial encounter; I48.91 Unspecified atrial fibrillation; I95.9 Hypotension, unspecified; Z86.16 Personal history of COVID-19; F03.90 Unspecified dementia, unspecified severity, without behavioral disturbance, psychotic disturbance, mood disturbance, and anxiety; Z16.12 Extended spectrum beta lactamase (ESBL) resistance; Z87.891 Personal history of nicotine dependence; Z79.01 Long term (current) use of anticoagulants; G47.33 Obstructive sleep apnea (adult) (pediatric); M47.817 Spondylosis without myelopathy or radiculopathy, lumbosacral region; E03.9 Hypothyroidism, unspecified; E11.22 Type 2 diabetes mellitus with diabetic chronic kidney disease; B96.20 Unspecified Escherichia coli [E. coli] as the cause of diseases classified elsewhere; N18.4 Chronic kidney disease, stage 4 (severe); Z79.890 Hormone replacement therapy; Y73.2 Prosthetic and other implants, materials and accessory gastroenterology and urology devices associated with adverse incidents; K21.9 Gastro-esophageal reflux disease without esophagitis; R07.9 Chest pain, unspecified

== ENCOUNTER 2023-11-28 16:07 | Inpatient (IN) ==
--- NOTE | 2023-11-28 16:10 | Emergency Department Note ---
Impression & Plan Syncope, Complicated urinary tract infection, Dementia, CKD (chronic kidney disease) ED Provider Note NAME: ANABELLE Mueller PROPER AGE: 88 SEX: M : 1935 ARRIVES VIA: Ambulance INFORMANT: Patient ED PROVIDER(S): Oliver Hunt MD CHIEF COMPLAINT: Unresponsive PLAN: Disposition: Admit MEDICAL DECISION MAKING: The patient is a pleasant 88-year-old gentleman with a past medical history of cognitive impairment/dementia, atrial fibrillation on Eliquis, amatory dysfunction, history of ESBL UTI, CKD squamous carcinoma of the penis, status post suprapubic urinary catheter who presents to the emergency department via EM from his fpc facility at [facility] for evaluation of unresponsiveness which began today. EMS report they found the patient to be arousable but would have periods of unresponsiveness and upon entering the emergency department reported episode of apnea which resolved upon stimulation. The patient does have a prescription for oxycodone but it appears he has not received this since November 23. Patient is a poor historian. He denies complaints to this provider but periodically will become anxious and shout out for his did arrive to the bedside and was able to reassure him. Patient's son also arrived to the bedside. Family confirmed that the patient is now DNR/DNI. However they are open and agree with plan for admission for further evaluation and management. On evaluation the patient is acute or chronic ill-appearing no distress, afebrile with stable vital signs. Appears clinically dry. Suprapubic catheter is in place without surrounding erythema warmth. He exhibits mild lower abdominal discomfort without discrete tenderness. He has right second toe exhibits a 1 cm ulceration with overlying eschar with slight erythema on the periphery and light erythema of the toe itself. It is tender to touch. Per family this has been ongoing for a month or more. No proximal extension to the foot. EKG without overt acute ischemia. Chest x-ray negative for acute cardiopulmonary process per my preliminary independent interpretation. WBC within normal limits without neutrophilia or left shift. H/H improved from insulin requiring values. Platelets within normal limits.Chemistry without metabolic acidosis. Creatinine is 2.7, slightly increased from patient's recent baseline though has been similarly elevated before. Lactic acid 1.7, within normal limits. Electrolytes and FTs unremarkable. High-sensitivity troponin is 11.6, within normal limits. Lipase is not elevated. Procalcitonin is not elevated. TSH within normal limits. UA is suspicious for infection with WBCs and 4+ bacteria and positive nitrites and minimal epithelial cells collected from patient's suprapubic catheter after bag exchange. COVID-19 RNA, SHAISTA was negative. CT of the head was negative for acute abnormalities. CT of the chest and pelvis were performed and reports are pending. Patient was treated with empiric treatment for UTI with ertapenem given the patient's history of ESBL infections. IV fluid hydration also provided. The patient remained hematin stable emergency department without recurrent episodes of syncope after his initial episode which followed a brief episode of hyperventilation. Case was discussed with Dr. Evans, [facility] hospitalist, who will evaluate the patient for admission. Triage Nursing notes reviewed and agree them. Prior/external medical records reviewed Vital Signs: reviewed Differential diagnosis: Infection, dehydration, metabolic abnormality, hypo/hyperglycemia, electrolyte disturbance, anemia, hypoxia, cardiac sources, intracerebral event, toxicologic, neurologic, as well as other pathologies. ER treatment provided: See below. Diagnostics interpreted by me: ECG: Atrial fibrillation, 84 bpm, no ectopy, no overt ST ovation depression, QTc 408, QRS 86. Cardiac Monitoring: An order for continuous cardiac monitoring was placed and demonstrated Atrial fibrillation, 84 bpm, no ectopy Laboratory studies: See below Imaging studies: See below Consultation(s): Dr. Evans [facility] hospitalist. HPI: The patient is a pleasant 88-year-old gentleman with a past medical history of cognitive impairment/dementia, atrial fibrillation on Eliquis, amatory dysfunction, history of ESBL UTI, CKD squamous carcinoma of the penis, status post suprapubic urinary catheter who presents to the emergency department via EM from his fpc facility at [facility] for evaluation of unresponsiveness which began today. EMS report they found the patient to be arousable but would have periods of unresponsiveness and upon entering the emergency department reported episode of apnea which resolved upon stimulation. The patient does have a prescription for oxycodone but it appears he has not received this since November 23. Patient is a poor historian. He denies complaints to this provider but periodically will become anxious and shout out for his did arrive to the bedside and was able to reassure him. Patient's son also arrived to the bedside. Family confirmed that the patient is now DNR/DNI. However they are open and agree with plan for admission for further evaluation and management. ROS: See above HPI for pertinent positives & negatives. A total of 10 systems reviewed and were otherwise negative. VITALS:See Below PHYSICAL EXAMINATION: GENERAL: Awake, alert, acute on chronic ill-appearing. Dry mucous membranes. In no distress HENT: Normocephalic, atraumatic. Oropharynx dry mucous membranes. EYES: Normal conjunctiva. Sclera non-icteric. NECK: Supple. No nuchal rigidity. FROM. No JVD. RESPIRATORY: Clear to auscultation. CARDIAC: Regular rate, normal rhythm. Extremities warm and well perfused. Pulses equal. ABDOMEN: Soft, non-distended. Suprapubic catheter is in place without surrounding erythema warmth. He exhibits mild lower abdominal discomfort without discrete tenderness. MUSCULOSKELETAL: Chest examination reveals no tenderness. The back is symmetrical on inspection without obvious abnormality. There is no CVA tenderness to palpation. No joint edema. LOWER EXTREMITIES: 1+ BLE edema. Right second toe exhibits a 1 cm ulceration with overlying eschar with slight erythema on the periphery and light erythema of the toe itself. It is tender to touch. Per family this has been ongoing for a month or more. No proximal extension to the foot. NEURO: Confused for baseline dementia. No focal sensory or motor deficits noted. SKIN: No rash or jaundice noted. Oliver Hunt MD Past Med/Surg History Problem List (Updated 11/29/23 @ 05:14 by Oliver Hunt MD) CKD (chronic kidney disease) (Acute) Dementia (Acute) Complicated urinary tract infection (Acute) Syncope (Acute) Catheter-associated urinary tract infection Suprapubic catheter Ribs, multiple fractures Closed left clavicular fracture Fall (Acute) Contusion of left shoulder (Acute) Head injury (Acute) Closed fracture of left hip (Acute) History of infection due to ESBL Escherichia coli SCC (squamous cell carcinoma), penis Stage 3b chronic kidney disease Asymptomatic bacteriuria Cellulitis (Acute) Shoulder pain Diarrhea (Acute) Near syncope (Acute) Atypical chest pain Anemia (Acute) Lumbosacral facet joint syndrome Knee sprain Knee contusion History of arthroplasty of right knee Anemia of chronic disease Ambulatory dysfunction Hypotension Frailty Discogenic lumbar pain Diarrhea Falls frequently Headache (Acute) UTI due to extended-spectrum beta lactamase (ESBL) producing Escherichia coli (Acute) Tremor Foraminal stenosis of lumbosacral region DDD (degenerative disc disease), lumbar Chronic low back pain Weakness (Acute) Near syncope (Acute) Unresponsiveness Degenerative spondylolisthesis Retrolisthesis of vertebrae Low back pain potentially associated with spinal stenosis Left-sided chest pain (Acute) Hypomagnesemia (Acute) Generalized weakness (Chronic) Loose stools Urinary urgency Left-sided face pain Urinary leakage (Chronic) Insufficient social insurance or welfare support Patient not earning income Lumbar spondylosis Secondary hyperparathyroidism of renal origin Prediabetes Vertigo Syncope (Acute) Vitamin D deficiency Anemia Balanitis Rectal bleed Gait apraxia of elderly Chest wall contusion H/O shoulder replacement S/P prostatectomy Elevated TSH Osteoarthritis Peripheral neuropathy Mild cognitive impairment (Chronic) Urge incontinence of urine (Chronic) Obesity (Acute) Knee joint replacement status (Acute 04/22/12) Erectile dysfunction (Acute) Elevated prostate specific antigen (PSA) (Acute) Diverticulosis of colon (Acute) Chronic anticoagulation (Chronic) Benign prostatic hyperplasia with urinary obstruction (Acute) Bariatric surgery status (Chronic 04/22/12) Anal stricture (Acute) Carpal tunnel syndrome, left S/P carpal tunnel release Anemia Left-sided chest pain (Chronic) BRBPR (bright red blood per rectum) Medical History Hypotension SUE (obstructive sleep apnea) Chronic kidney disease, stage III (moderate) Cellulitis of groin Sleep apnea Dementia Chronic renal insufficiency, stage IV (severe) Atrial fibrillation no cardioversions/ no pacer. treated with medication and follows with PCP GERD (gastroesophageal reflux disease) Acute UTI Pain in penis Acute metabolic encephalopathy UTI (urinary tract infection) Rib pain on left side Syncopal episodes COVID-19 Penile cancer KENROY (acute kidney injury) Diarrhea SCC (squamous cell carcinoma), penis Chronic pruritus Hypothyroidism Orthostatic hypotension SBO (small bowel obstruction) Small bowel obstruction due to adhesions BRBPR (bright red blood per rectum) Dementia Hyperkalemia Acute cholecystitis Substernal chest pain resolved per pt Dysphagia "trouble keeping foods down" Fall walker and cane -- fall risk. Colitis Concussion Degenerative disc disease Osteoarthritis History of bleeding ulcers Diabetes mellitus, type 2 diet controlled Hx of migraines Hx of sleep apnea no device Balanoposthitis Phimosis Atrial fibrillation (04/22/12) Peptic ulcer disease BPH w urinary obs/LUTS Anal fistula Fall LAST FALL 1 WEEK AGO Hypoglycemia Bradycardia Surgical History S/P laparoscopic cholecystectomy (09/17/20) Laparoscopic Cholecystectomy with Cholangiogram with akira drain 09/17/20 Dr. Atkinson Hx of circumcision 2 yrs ago H/O knee surgery "MULTIPLE KNEE SURGERIES"- R/L History of total shoulder replacement LEFT History of total knee replacement RT/LEFT History of esophagogastroduodenoscopy (EGD) History of colonoscopy History of tooth extraction Hx of transurethral resection of prostate H/O gastric bypass 2004 Family History Sister Family history of diabetes mellitus Social History Smoking Status: Never smoker Tobacco Type: Cigarettes Second Hand Exposure: No; Do You Dip or Chew Tobacco: No; Hx Alcohol Use: No Hx Substance Use: No Preferred Language: Polish Communication Ability: Effective Communication Ability Comment: can be forgetful Air Intelligence Officer Required: No Beliefs That Will Affect Care: None marital status: Current Living Situation: Senior Care Current Living Situation Comment: [facility] current occupational status: retired Feels Safe at Home: Yes Safety Concerns: Feels Safe At This Time Diet: regular caffeine: No Dental Care, Regularly: Yes Seatbelt Use: always Assistive Devices: Denture - Lower Allergies Allergies Allergy/AdvReac Type Severity Reaction Status Date / Time iron [From Venofer] AdvReac Mild warm Verified 10/29/23 09:24 sensation/flushing, discomfort in arm in which it was i Home Meds Home Medications Medication Instructions Recorded Confirmed calcium carbonate 500 mg-vitamin 1 tab PO QAM 12/18/19 11/28/23 D3 5 mcg (200 unit) tablet (Calcium 500 + D) vitamin B complex 1 tab PO QAM 12/18/19 11/28/23 Lactobacillus acidophilus 10 10,000 mmu cells PO DAILY 01/18/21 11/28/23 billion cell capsule (Probiotic) multivitamin 1 tab PO DAILY 08/01/22 11/28/23 acetaminophen 500 mg tablet 1,000 mg PO Q8H PRN Pain 1-8 or 12/22/22 11/28/23 (Tylenol Extra Strength) fever ferrous sulfate 325 mg (65 mg 325 mg PO DAILY 04/27/23 11/28/23 iron) tablet,delayed release miconazole nitrate 2 % topical 1 applic EXT BID PRN as directed 08/13/23 11/28/23 powder (Desenex) cholecalciferol (vitamin D3) 1,250 1,250 mcg PO WK 09/27/23 11/28/23 mcg (50,000 unit) tablet oxycodone 5 mg tablet 5 mg PO Q6H PRN Severe pain 9-10 09/27/23 11/28/23 polyethylene glycol 3350 17 gram 17 g PO DAILY 09/27/23 11/28/23 oral powder packet (Miralax) sennosides 8.6 mg tablet 8.6 mg PO BID 09/27/23 11/28/23 Milk of Magnesia 30 ml PO DAILY PRN Constipation 11/28/23 11/28/23 aluminum-mag hydroxide-simethicone 10 ml PO Q4H PRN epigastric pain 11/28/23 11/28/23 400 mg-400 mg-40 mg/5 mL oral susp (Mylanta Maximum Strength) bisacodyl 10 mg rectal suppository 10 mg GA DAILY PRN Constipation 11/28/23 11/28/23 (Dulcolax (bisacodyl)) calcitriol 0.25 mcg capsule 0.25 mcg PO QAM 11/28/23 11/28/23 diclofenac sodium 1 % topical gel 4 g topical QID 11/28/23 11/28/23 midodrine 5 mg tablet 5 mg PO TID 11/28/23 11/28/23 povidone-iodine 10 % topical swab 1 applic topical DAILY 11/28/23 11/28/23 (Betadine Swabsticks) sodium phosphates 19 gram-7 118 ml GA DAILY PRN Constipation 11/28/23 11/28/23 gram/118 mL enema (Fleet Enema) Previous Rx's Medication Instructions Recorded sodium bicarbonate 650 mg tablet 650 mg PO BID Stomach upset #180 08/10/22 tabs magnesium oxide 400 mg (241.3 mg 400 mg PO BID #180 tabs 11/23/22 magnesium) tablet apixaban 2.5 mg tablet (Eliquis) 2.5 mg PO BID #180 tabs 04/15/23 levothyroxine 25 mcg tablet 25 mcg PO DAILYBB 90 days #90 tabs 05/27/23 (Synthroid) omeprazole 40 mg capsule,delayed 40 mg PO BID 90 days #180 caps 06/23/23 release gabapentin 100 mg capsule 100 mg PO BID #180 caps 08/05/23 oxybutynin chloride 5 mg 5 mg PO QAM #30 tabs 08/18/23 tablet,extended release 24 hr Results & Data (ED) Vital Signs Vital Signs - 24 hr 11/28/23 16:21 11/28/23 16:24 11/28/23 16:30 Temperature 36.6 C Temperature Source Oral Pulse Rate 90 88 Pulse Rate [Apical] Pulse Rate from SpO2 Sensor Respiratory Rate 18 Respiratory Effort / Characteristics Non-Labored Spontaneous Respiratory Depth Normal Respiratory Pattern Regular Blood Pressure 134/88 134/88 Blood Pressure [Right Arm] Blood Pressure Mean 103 93 Blood Pressure Mean [Right Arm] Blood Pressure Position [Right Arm] Pulse Oximetry 100 Oxygen Delivery Method Room Air Sepsis Recent Fever Within 48 Hours No Sepsis New/Unexplained Change in Mental Status Yes Sepsis Action Taken by Nursing No Action Required 11/28/23 16:30 11/28/23 16:35 11/28/23 16:41 Temperature Temperature Source Pulse Rate 85 86 Pulse Rate [Apical] Pulse Rate from SpO2 Sensor 87 Respiratory Rate 16 Respiratory Effort / Characteristics Respiratory Depth Respiratory Pattern Blood Pressure Blood Pressure [Right Arm] Blood Pressure Mean Blood Pressure Mean [Right Arm] Blood Pressure Position [Right Arm] Pulse Oximetry 98 100 Oxygen Delivery Method Room Air Sepsis Recent Fever Within 48 Hours Sepsis New/Unexplained Change in Mental Status Sepsis Action Taken by Nursing 11/28/23 17:56 Temperature Temperature Source Pulse Rate Pulse Rate [Apical] 94 H Pulse Rate from SpO2 Sensor Respiratory Rate 17 Respiratory Effort / Characteristics Respiratory Depth Normal Respiratory Pattern Blood Pressure Blood Pressure [Right Arm] 125/84 Blood Pressure Mean Blood Pressure Mean [Right Arm] 97 Blood Pressure Position [Right Arm] Semi-fowlers Pulse Oximetry 98 Oxygen Delivery Method Room Air Sepsis Recent Fever Within 48 Hours Sepsis New/Unexplained Change in Mental Status Sepsis Action Taken by Nursing Laboratory Data Attestation: I reviewed the patient's lab results. 11/28/23 16:43 11/28/23 16:43 Lab Results 11/28/23 11/28/23 11/28/23 Range/Units 16:43 16:46 16:47 WBC 6.85 (4.8-10.8) K/ul RBC 3.76 L (4.70-6.10) M/uL Hgb 11.0 L (14.0-18.0) g/dl POC Hgb 11.2 L (14.0-18.0) g/dl Hct 34.8 L (42.0-52.0) % POC Hct 33 L (42-52) % MCV 92.6 (80.0-100.0) fL MCH 29.3 (25.0-34.0) pg MCHC 31.6 L (32.0-36.0) g/dL RDW Std Deviation 57.1 H (36.4-46.3) fL RDW Coeff of Yinka 16.8 H (11.5-14.5) % Plt Count 258 (130-400) K/uL MPV 10.7 (9.4-12.4) fL Immature Gran % (Auto) 0.4 % Neut % (Auto) 59.3 % Lymph % (Auto) 26.0 % [place] % (Auto) 9.6 % Eos % (Auto) 4.1 % Baso % (Auto) 0.6 % Neut # (Auto) 4.06 (1.40-6.50) K/uL Lymph # (Auto) 1.78 (1.20-3.40) K/uL [place] # (Auto) 0.66 H (0.11-0.59) K/uL Eos # (Auto) 0.28 (0.00-0.50) K/uL Baso # (Auto) 0.04 (0.00-0.20) K/uL Immature Gran # (Auto) 0.03 (0.01-0.20) K/uL ESR 78 H (0-20) mm/hr PT 11.1 (9.0-12.0) Seconds INR 1.0 (0.9-1.1) VBG pH 7.41 (7.36-7.41) VBG pCO2 34 L (38-50) mmHg VBG pO2 24 mmHg VBG HCO3 22 mmol/L VBG O2 Saturation < 60.0 % VBG Base Excess -2.4 mEq/L POC Sodium 140 (135-144) mmol/L Sodium 137 (136-145) mmol/L POC Potassium 5.0 (3.3-5.0) mmol/L Potassium 4.7 (3.5-5.1) mmol/L POC Chloride 109 (101-112) mmol/L Chloride 107 (98-107) mmol/L Carbon Dioxide 22 (21-32) mmol/L POC Total CO2 22 L (24-31) mmol/L Anion Gap 8 (3-11) POC Anion Gap 15.0 L (16-25) mmol/L POC BUN 38 H (7-18) mg/dl BUN 44 H (6-23) mg/dl Creatinine 2.70 H (0.6-1.4) mg/dl POC Creatinine 3.1 H (0.6-1.3) mg/dl Est Cr Clr Drug Dosing 21.2 ml/min Est GFR ( Amer) 23.5 ml/min Est GFR (Non-Af Amer) 20.3 ml/min BUN/Creatinine Ratio 16.3 (10-20) Glucose 106 H (70-99(Fasting)) mg/dl POC Glucose (other) 104 H (70-99) mg/dl Lactate 1.7 (0.4-2.0) mmol/L Calcium 8.8 (8.6-10.3) mg/dl POC Ioniz Calcium Jb 1.15 (1.12-1.32) mmol/l Phosphorus 4.1 (2.5-4.9) mg/dl Magnesium 2.0 (1.7-2.4) mg/dl Total Bilirubin 0.3 (0.2-1.0) mg/dl Direct Bilirubin 0.1 (0-0.2) mg/dl AST 19 (13-39) U/L ALT 11 (7-52) U/L Alkaline Phosphatase 117 H (34-104) U/L Troponin I High Sens 11.6 (0-20) pg/ml C-Reactive Protein 1.18 H (0-0.5) mg/dl Total Protein 6.9 (6.0-8.3) gm/dl Albumin 3.1 L (3.4-5.0) gm/dl Lipase 11 (11-82) U/L Procalcitonin 0.18 (0-0.5) ng/ml TSH 2.816 (0.300-4.500) uIu/ml Urine Color Urine Appearance (Clear) Urine pH (4.5-7.5) Ur Specific [place] (1.000-1.030) Urine Protein (Negative) Urine Glucose (UA) (Negative) Urine Ketones (Negative) Urine Blood (Negative) Urine Nitrite (Negative) Urine Bilirubin (Negative) Urine Urobilinogen (Negative) Ur Leukocyte Esterase (Negative) Urine WBC (Auto) (0-5) /hpf Urine RBC (Auto) (0-2) /hpf U Hyaline Cast (Auto) (0-2) /lpf U Epithel Cells (Auto) (0-2) /hpf Urine Bacteria (Auto) (None Seen) SARS-CoV-2, RNA, NAAT NEGATIVE (NEGATIVE) 11/28/23 Range/Units 17:01 WBC (4.8-10.8) K/ul RBC (4.70-6.10) M/uL Hgb (14.0-18.0) g/dl POC Hgb (14.0-18.0) g/dl Hct (42.0-52.0) % POC Hct (42-52) % MCV (80.0-100.0) fL MCH (25.0-34.0) pg MCHC (32.0-36.0) g/dL RDW Std Deviation (36.4-46.3) fL RDW Coeff of Yinka (11.5-14.5) % Plt Count (130-400) K/uL MPV (9.4-12.4) fL Immature Gran % (Auto) % Neut % (Auto) % Lymph % (Auto) % [place] % (Auto) % Eos % (Auto) % Baso % (Auto) % Neut # (Auto) (1.40-6.50) K/uL Lymph # (Auto) (1.20-3.40) K/uL [place] # (Auto) (0.11-0.59) K/uL Eos # (Auto) (0.00-0.50) K/uL Baso # (Auto) (0.00-0.20) K/uL Immature Gran # (Auto) (0.01-0.20) K/uL ESR (0-20) mm/hr PT (9.0-12.0) Seconds INR (0.9-1.1) VBG pH (7.36-7.41) VBG pCO2 (38-50) mmHg VBG pO2 mmHg VBG HCO3 mmol/L VBG O2 Saturation % VBG Base Excess mEq/L POC Sodium (135-144) mmol/L Sodium (136-145) mmol/L POC Potassium (3.3-5.0) mmol/L Potassium (3.5-5.1) mmol/L POC Chloride (101-112) mmol/L Chloride (98-107) mmol/L Carbon Dioxide (21-32) mmol/L POC Total CO2 (24-31) mmol/L Anion Gap (3-11) POC Anion Gap (16-25) mmol/L POC BUN (7-18) mg/dl BUN (6-23) mg/dl Creatinine (0.6-1.4) mg/dl POC Creatinine (0.6-1.3) mg/dl Est Cr Clr Drug Dosing ml/min Est GFR ( Amer) ml/min Est GFR (Non-Af Amer) ml/min BUN/Creatinine Ratio (10-20) Glucose (70-99(Fasting)) mg/dl POC Glucose (other) (70-99) mg/dl Lactate (0.4-2.0) mmol/L Calcium (8.6-10.3) mg/dl POC Ioniz Calcium Jb (1.12-1.32) mmol/l Phosphorus (2.5-4.9) mg/dl Magnesium (1.7-2.4) mg/dl Total Bilirubin (0.2-1.0) mg/dl Direct Bilirubin (0-0.2) mg/dl AST (13-39) U/L ALT (7-52) U/L Alkaline Phosphatase (34-104) U/L Troponin I High Sens (0-20) pg/ml C-Reactive Protein (0-0.5) mg/dl Total Protein (6.0-8.3) gm/dl Albumin (3.4-5.0) gm/dl Lipase (11-82) U/L Procalcitonin (0-0.5) ng/ml TSH (0.300-4.500) uIu/ml Urine Color Yellow Urine Appearance Turbid A (Clear) Urine pH 6.5 (4.5-7.5) Ur Specific [place] 1.010 (1.000-1.030) Urine Protein 1+ H (Negative) Urine Glucose (UA) Negative (Negative) Urine Ketones Negative (Negative) Urine Blood 2+ H (Negative) Urine Nitrite Positive A (Negative) Urine Bilirubin Negative (Negative) Urine Urobilinogen Negative (Negative) Ur Leukocyte Esterase 3+ H (Negative) Urine WBC (Auto) >50 H (0-5) /hpf Urine RBC (Auto) 11-20 H (0-2) /hpf U Hyaline Cast (Auto) 11-20 H (0-2) /lpf U Epithel Cells (Auto) 0-2 (0-2) /hpf Urine Bacteria (Auto) 4+ H (None Seen) SARS-CoV-2, RNA, NAAT (NEGATIVE) Administered Medications Apixaban (Apixaban 2.5 Mg Tab) 2.5 mg PO BID [facility] Stop: 12/28/23 20:59 Last Admin: 11/28/23 21:19 Dose: 2.5 mg Documented By: NICOLE Diclofenac Sodium (Diclofenac Sod 1% Gel 100 Gm Tube) 4 gm EXT QID [facility]; Protocol Stop: 12/28/23 20:59 Last Admin: 11/28/23 21:20 Dose: Not Given Documented By: NICOLE Gabapentin (Gabapentin 100 Mg Cap) 100 mg PO BID [facility] Stop: 12/28/23 20:59 Last Admin: 11/28/23 21:19 Dose: 100 mg Documented By: NICOLE Insulin Aspart (Insulin Aspart Per Unit Charge) 0 units SC ACHS [facility] Stop: 12/28/23 20:59 Last Admin: 11/28/23 21:36 Dose: Not Given Documented By: NICOLE Magnesium Oxide (Magnesium Oxide 400 Mg Tab) 400 mg PO BID [facility] Stop: 12/28/23 20:59 Last Admin: 11/28/23 21:18 Dose: 400 mg Documented By: NICOLE Pantoprazole Sodium (Pantoprazole 40 Mg Tab) 40 mg PO BID [facility] Stop: 12/28/23 20:59 Last Admin: 11/28/23 21:18 Dose: 40 mg Documented By: NICOLE Sennosides (Senna 8.6 Mg Tab) 8.6 mg PO BID [facility] Stop: 12/28/23 20:59 Last Admin: 11/28/23 21:17 Dose: 8.6 mg Documented By: NICOLE Sodium Bicarbonate (Sodium Bicarbonate 650 Mg Tab) 650 mg PO BID [facility] Stop: 12/28/23 20:59 Last Admin: 11/28/23 21:20 Dose: 650 mg Documented By: NIOCLE Discontinued Medications Sodium Chloride (Nss) 1,000 mls @ 999 mls/hr IV .Q1H1M ONE Stop: 11/28/23 17:33 Last Infusion: 11/28/23 19:04 Dose: Infused Documented By: Admin: 11/28/23 16:50 Dose: 999 mls/hr Documented By: NIRAV Ertapenem (Invanz) 10 mls @ 2 mls/min IV NOW STA Stop: 11/28/23 17:59 Last Admin: 11/28/23 19:15 Dose: 2 mls/min Documented By: RAYMUNDO Vancomycin HCl 1,750 mg/ (Sodium Chloride) 535 mls @ 200 mls/hr IV ONE ONE Stop: 11/28/23 21:40 Last Infusion: 11/28/23 22:47 Dose: Infused Documented By: Admin: 11/28/23 20:28 Dose: 200 mls/hr Documented By: NICOLE Imaging Data Radiologist's Impression: Chest X-Ray 11/28/23 16:31 SINGLE VIEW CHEST CLINICAL HISTORY: Sepsis FINDINGS: An AP, portable, upright chest radiograph is compared to study dated 09/27/2023 and correlated with chest CT performed the same day 11/28/2023. The heart is enlarged and noting atherosclerotic calcification of the thoracic aorta. The pulmonary vasculature is noncontrast. Chronic interstitial thickening similar to previous. There is bibasilar scarring/atelectasis. No airspace consolidation or large pleural effusion is identified. No pneumothorax is seen. The skeletal structures are osteopenic. There is chronic deformity left clavicle. A left shoulder arthroplasty is in place. Advanced arthritic change is noted in the right shoulder. IMPRESSION: Cardiomegaly with no acute cardiopulmonary abnormality identified. ACT 112: Negative or not required by law. Electronically signed by: Guillermo Fitzgerald M.D. 11/28/2023 6:57 PM Foot X-Ray 11/28/23 16:33 RIGHT FOOT 2 VIEWS CLINICAL HISTORY: Second toe ulcer. FINDINGS: AP and lateral views of the right foot are compared to study dated 10/07/2022. The skeletal structures are heterogeneously osteopenic. No acute fracture is seen. No bony erosion is identified. Mild osteoarthritic change is noted throughout the foot. There is a small dorsal heel spur. Soft tissue edema is seen throughout the foot. There is advanced atherosclerotic calcification of the regional arteries. Soft tissue calcification is noted along the course of the plantar fascia. IMPRESSION: Soft tissue swelling throughout the foot with no acute bony abnormality identified. Electronically signed by: Guillermo Fitzgerald M.D. 11/28/2023 8:03 PM KUB X-Ray 11/28/23 16:33 KUB CLINICAL HISTORY: Generalized abdominal pain. FINDINGS: 3 AP, portable, supine abdominal radiographs are compared to study dated 05/05/2023 and correlated with abdominal CT performed the same day 11/28/2023. There is mild gaseous distention of the small bowel loops without radiographic evidence of high-grade obstruction. This was better assessed on today's abdominal CT. Cholecystectomy clips are seen in the right upper quadrant. Suture material projects over the stomach. No evidence of intraperitoneal free air is seen on these supine images. There are no abnormal abdominal calcifications. A suprapubic catheter projects over the pelvis. The skeletal structures are osteopenic. There is moderate lumbosacral spondylosis. Postsurgical change is partially visualized in the left proximal femur. IMPRESSION: No acute abnormality is identified. Electronically signed by: Guillermo Fitzgerald M.D. 11/28/2023 7:00 PM Abdomen/Pelvis CT 11/28/23 16:50 CT SCAN OF THE CHEST, ABDOMEN, AND PELVIS WITHOUT IV CONTRAST CLINICAL HISTORY: Atypical chest pain. Syncope. Renal insufficiency. COMPARISON STUDY: Chest CT dated 08/22/2023. Abdominal CT dated 09/27/2023. TECHNIQUE: Unenhanced CT scan of the chest, abdomen, and pelvis was performed from the thoracic inlet to the proximal femora. Images are reviewed in the axial, sagittal, and coronal planes. IV contrast was not administered due to poor renal function. Note that the examinations are significant only suboptimal without IV contrast. A dose lowering technique was utilized adhering to the principles of ALARA. CT DOSE: 2827.18 mGy.cm FINDINGS: CHEST: Thyroid: Imaged portions of the thyroid gland are normal in size and attenuation. Thoracic aorta: There is atherosclerotic calcification of the thoracic aorta, which is normal in caliber and demonstrates standard 3-vessel arch anatomy. Heart: The heart is enlarged noting trace pericardial effusion. The coronary arteries are densely calcified. Lungs and pleural spaces: There is no airspace consolidation, pleural effusion, or pneumothorax. Scarring/atelectasis is noted at the lung bases. The trachea and central airways are clear. Mild bronchiectasis is noted in the lower lobes. Mediastinum: There is no mediastinal hematoma or lymphadenopathy. Jackie: Not well assessed without IV contrast. Axillae: There is no axillary lymphadenopathy. Bony thorax: The skeletal structures are osteopenic. No acute fractures clearly seen involving the bony thorax. Degenerative change is seen throughout the thoracic spine with evidence of DISH. No lytic or blastic lesions are identified. A left shoulder arthroplasty is in place. Arthritic change is noted in the right shoulder. There is chronic posttraumatic deformity of the left clavicle. There are chronic/healed bilateral rib fractures. ABDOMEN AND PELVIS: Liver: The unenhanced liver is normal in size, contour, and attenuation. There is no intrahepatic biliary ductal dilatation. Gallbladder: Surgically absent noting clips in the gallbladder fossa. Spleen: Normal in size and attenuation. Pancreas: The unenhanced pancreas is atrophic and grossly unremarkable. Adrenal glands: Unremarkable. Kidneys: The unenhanced kidneys are atrophic and without hydronephrosis. No renal calculi are clearly identified. There are renovascular calcifications. There is no evidence of contour deforming mass lesion. Abdominal vasculature: There is advanced atherosclerotic calcification and mild ectasia of the abdominal aorta. Stomach and bowel: There is a small hiatal hernia. Postsurgical change is noted in the stomach. There is moderate colonic diverticulosis without CT evidence of acute diverticulitis. Moderate fecal retention is noted throughout the colon. No bowel obstruction is seen. The appendix is well-visualized and normal. Peritoneum: There is no intraperitoneal free air or abdominal ascites. Lymphadenopathy: None. Pelvic viscera: The bladder is decompressed around a suprapubic catheter and appears thick-walled with surrounding infiltration. There are foci of nonspecific intraluminal gas. The prostate gland is enlarged and heterogeneous. Skeletal structures: The skeletal structures are osteopenic. No acute fracture is seen involving the lumbosacral spine, bony pelvis, or proximal femora. There is moderate to advanced lumbosacral spondylosis. No lytic or blastic lesions are seen. There is an intertrochanteric fracture of the left proximal femur status post intertrochanteric and intramedullary nail fixation. This is similar to previous. Fracture lucency persists. IMPRESSION: 1. There is no acute posttraumatic intrathoracic abnormality. 2. There is no airspace consolidation, pleural effusion, or pneumothorax. 3. Cardiomegaly noting advanced coronary artery atherosclerosis. 4. No acute fracture seen. 5. There is no evidence of solid organ injury in the abdomen or pelvis. 6. A left proximal femoral fracture is unchanged status post open reduction and internal fixation. 7. Colonic diverticulosis without CT evidence of acute diverticulitis. 8. The bladder is largely decompressed around a suprapubic catheter appears thick-walled with surrounding infiltration. Correlate with clinical findings and urinalysis. 9. Additional findings as above. ACT 112: Negative or not required by law. Electronically signed by: Guillermo Fitzgerald M.D. 11/28/2023 6:[address] 11/28/23 16:50 CT SCAN OF THE CHEST, ABDOMEN, AND PELVIS WITHOUT IV CONTRAST CLINICAL HISTORY: Atypical chest pain. Syncope. Renal insufficiency. COMPARISON STUDY: Chest CT dated 08/22/2023. Abdominal CT dated 09/27/2023. TECHNIQUE: Unenhanced CT scan of the chest, abdomen, and pelvis was performed from the thoracic inlet to the proximal femora. Images are reviewed in the axial, sagittal, and coronal planes. IV contrast was not administered due to poor renal function. Note that the examinations are significant only suboptimal without IV contrast. A dose lowering technique was utilized adhering to the principles of ALARA. CT DOSE: 2827.18 mGy.cm FINDINGS: CHEST: Thyroid: Imaged portions of the thyroid gland are normal in size and attenuation. Thoracic aorta: There is atherosclerotic calcification of the thoracic aorta, which is normal in caliber and demonstrates standard 3-vessel arch anatomy. Heart: The heart is enlarged noting trace pericardial effusion. The coronary arteries are densely calcified. Lungs and pleural spaces: There is no airspace consolidation, pleural effusion, or pneumothorax. Scarring/atelectasis is noted at the lung bases. The trachea and central airways are clear. Mild bronchiectasis is noted in the lower lobes. Mediastinum: There is no mediastinal hematoma or lymphadenopathy. Jackie: Not well assessed without IV contrast. Axillae: There is no axillary lymphadenopathy. Bony thorax: The skeletal structures are osteopenic. No acute fractures clearly seen involving the bony thorax. Degenerative change is seen throughout the thoracic spine with evidence of DISH. No lytic or blastic lesions are identified. A left shoulder arthroplasty is in place. Arthritic change is noted in the right shoulder. There is chronic posttraumatic deformity of the left clavicle. There are chronic/healed bilateral rib fractures. ABDOMEN AND PELVIS: Liver: The unenhanced liver is normal in size, contour, and attenuation. There is no intrahepatic biliary ductal dilatation. Gallbladder: Surgically absent noting clips in the gallbladder fossa. Spleen: Normal in size and attenuation. Pancreas: The unenhanced pancreas is atrophic and grossly unremarkable. Adrenal glands: Unremarkable. Kidneys: The unenhanced kidneys are atrophic and without hydronephrosis. No renal calculi are clearly identified. There are renovascular calcifications. There is no evidence of contour deforming mass lesion. Abdominal vasculature: There is advanced atherosclerotic calcification and mild ectasia of the abdominal aorta. Stomach and bowel: There is a small hiatal hernia. Postsurgical change is noted in the stomach. There is moderate colonic diverticulosis without CT evidence of acute diverticulitis. Moderate fecal retention is noted throughout the colon. No bowel obstruction is seen. The appendix is well-visualized and normal. Peritoneum: There is no intraperitoneal free air or abdominal ascites. Lymphadenopathy: None. Pelvic viscera: The bladder is decompressed around a suprapubic catheter and appears thick-walled with surrounding infiltration. There are foci of nonspecific intraluminal gas. The prostate gland is enlarged and heterogeneous. Skeletal structures: The skeletal structures are osteopenic. No acute fracture is seen involving the lumbosacral spine, bony pelvis, or proximal femora. There is moderate to advanced lumbosacral spondylosis. No lytic or blastic lesions are seen. There is an intertrochanteric fracture of the left proximal femur status post intertrochanteric and intramedullary nail fixation. This is similar to previous. Fracture lucency persists. IMPRESSION: 1. There is no acute posttraumatic intrathoracic abnormality. 2. There is no airspace consolidation, pleural effusion, or pneumothorax. 3. Cardiomegaly noting advanced coronary artery atherosclerosis. 4. No acute fracture seen. 5. There is no evidence of solid organ injury in the abdomen or pelvis. 6. A left proximal femoral fracture is unchanged status post open reduction and internal fixation. 7. Colonic diverticulosis without CT evidence of acute diverticulitis. 8. The bladder is largely decompressed around a suprapubic catheter appears thick-walled with surrounding infiltration. Correlate with clinical findings and urinalysis. 9. Additional findings as above. ACT 112: Negative or not required by law. Electronically signed by: Guillermo Fitzgerald M.D. 11/28/2023 6:[address] 11/28/23 16:50 CT SCAN OF THE BRAIN WITHOUT IV CONTRAST CLINICAL HISTORY: Syncope. COMPARISON STUDY: CT of the brain dated 09/27/2023. TECHNIQUE: Unenhanced axial CT scan of the brain is performed from the vertex to the skull base. A dose lowering technique was utilized adhering to the principles of ALARA. FINDINGS: Brain parenchyma: There is age-related involutional change noting mild to moderate subcortical and periventricular microangiopathic disease. There is no hemorrhage, mass effect, or evidence of acute territorial ischemia by CT criteria. Zepeda-white matter differentiation is preserved. No extra-axial fluid collection is seen. Ventricles, sulci, cisterns: Prominent secondary to involutional change. Intracranial vasculature: There is atherosclerotic calcification of the cavernous carotid and vertebral artery. Calvarium: The skeletal structures are osteopenic. No depressed calvarial fracture is seen. Sinuses and mastoids: The visualized paranasal sinuses are clear. The mastoid air cells are well pneumatized. Orbits: The bony orbits are grossly intact. There are bilateral ocular lens implants. IMPRESSION: There is no hemorrhage, mass effect, or evidence of acute territorial ischemia by CT criteria. ACT 112: Negative or not required by law. Electronically signed by: Guillermo Fitzgerald M.D. 11/28/2023 5:42 PM Discharge Plan Visit Data Chief Complaint: Unresponsive Stated Complaint: UNRESP., MULTI SYNCOPE EPISODES ED Provider: Oliver Hunt Discharge Problem: Syncope, Complicated urinary tract infection, Dementia, CKD (chronic kidney disease) Patient Disposition: Admitted As Inpatient Discharge Instructions Interventions: ED Discharge Assessment Last Done: 11/28/23 20:07 Discharge Problem: Syncope Qualifiers: Syncope type: unspecified Qualified Code(s): R55 - Syncope and collapse Dementia Qualifiers: Dementia type: unspecified type Dementia severity: unspecified severity D ementia behavioral or psychological symptom: unspecified whether behavioral, psychotic, or mood disturbance or anxiety Qualified Code(s): F03.90 - Unspecified dementia, unspecified severity, without behavioral disturbance, psychotic disturbance, mood disturbance, and anxiety CKD (chronic kidney disease) Qualifiers: Chronic kidney disease stage: unspecified stage Qualified Code(s): N18.9 - Chronic kidney disease, unspecified
[2023-11-28] MEDS: SODIUM CHLORIDE 0.9% 1,000 ML IV ONE (16:50)
[2023-11-28 16:58] LABS: iSTAT Creatinine 3.1 mg/dl (0.6-1.3); iSTAT Hemoglobin 11.2 g/dl (14.0-18.0); iSTAT Ionized Calcium 1.15 mmol/l (1.12-1.32)
[2023-11-28 17:01] LABS: Base Excess VBG -2.4 mEq/L; HCO3 VBG 22 mmol/L; Oxygen Saturation VBG < 60.0 %; PCO2 VBG 34 mmHg (38-50); PO2 VBG 24 mmHg; pH VBG 7.41 (7.36-7.41)
[2023-11-28 17:11] LABS: Basophils # (auto) 0.04 K/uL (0.00-0.20); Basophils % (auto) 0.6 %; Eosinophils # (auto) 0.28 K/uL (0.00-0.50); Eosinophils % (auto) 4.1 %; Hematocrit (blood only) 34.8 % (42.0-52.0); Immature Granulocytes # (auto) 0.03 K/uL (0.01-0.20); Immature Granulocytes % (auto) 0.4 %; Lymphocytes # (auto) 1.78 K/uL (1.20-3.40); Mean Corpuscular Hemoglobin 29.3 pg (25.0-34.0); Mean Corpuscular Hgb Conc 31.6 g/dL (32.0-36.0); Mean Corpuscular Volume 92.6 fL (80.0-100.0); Mean Platelet Volume 10.7 fL (9.4-12.4); Monocytes # (auto) 0.66 K/uL (0.11-0.59); Monocytes % (auto) 9.6 %; Neutrophils # (auto) 4.06 K/uL (1.40-6.50); Neutrophils % (auto) 59.3 %; Platelet Count 258 K/uL (130-400); RDW Coefficient of Variation 16.8 % (11.5-14.5); RDW Standard Deviation 57.1 fL (36.4-46.3); Red Blood Count 3.76 M/uL (4.70-6.10); White Blood Count 6.85 K/ul (4.8-10.8)
[2023-11-28 17:28] LABS: Appearance Urine Turbid (Clear); Bacteria Urine Automated 4+ (None Seen); Bilirubin Urine Negative (Negative); Blood Urine 2+ (Negative); Color Urine Yellow; Epithelial Cell Urine Auto 0-2 /hpf (0-2); Glucose Urine UA Negative (Negative); Ketones Urine Negative (Negative); Leukocyte Esterase Urine 3+ (Negative); Nitrite Urine Positive (Negative); Protein Urine 1+ (Negative); Urobilinogen Urine Negative (Negative); WBC Urine Automated >50 /hpf (0-5); pH Urine 6.5 (4.5-7.5)
[2023-11-28 17:43] LABS: Prothrombin Time 11.1 Seconds (9.0-12.0)
--- NOTE | 2023-11-28 17:44 | CT Scan Report ---
CT SCAN OF THE BRAIN WITHOUT IV CONTRAST CLINICAL HISTORY: Syncope. COMPARISON STUDY: CT of the brain dated 09/27/2023. TECHNIQUE: Unenhanced axial CT scan of the brain is performed from the vertex to the skull base. A do se lowering technique was utilized adhering to the principles of ALARA. FINDINGS: Brain parenchyma: There is age-related involutional change noting mild to moderate subcortical and pe riventricular microangiopathic disease. There is no hemorrhage, mass effect, or evidence of acute ter ritorial ischemia by CT criteria. Zepeda-white matter differentiation is preserved. No extra-axial flui d collection is seen. Ventricles, sulci, cisterns: Prominent secondary to involutional change. Intracranial vasculature: There is atherosclerotic calcification of the cavernous carotid and vertebr al artery. Calvarium: The skeletal structures are osteopenic. No depressed calvarial fracture is seen. Sinuses and mastoids: The visualized paranasal sinuses are clear. The mastoid air cells are well pneu matized. Orbits: The bony orbits are grossly intact. There are bilateral ocular lens implants. IMPRESSION: There is no hemorrhage, mass effect, or evidence of acute territorial ischemia by CT fabian smith. ACT 112: Negative or not required by law. Electronically signed by: Guillermo Fitzgerald M.D. 11/28/2023 5:42 PM
[2023-11-28 17:45] LABS: Thyroid Stimulating Hormone 2.816 uIu/ml (0.300-4.500); Troponin I High Sensitivity 11.6 pg/ml (0-20)
[2023-11-28 17:55] LABS: Albumin Level 3.1 gm/dl (3.4-5.0); BUN Creatinine Ratio 16.3 (10-20); Bilirubin Direct 0.1 mg/dl (0-0.2); Bilirubin,Total 0.3 mg/dl (0.2-1.0); Calcium 8.8 mg/dl (8.6-10.3); Creatinine Clr Calc Pharmacy 21.2 ml/min; Est GFR (African American) 23.5 ml/min; Est GFR (Non-African American) 20.3 ml/min; Phosphorus 4.1 mg/dl (2.5-4.9); Potassium 4.7 mmol/L (3.5-5.1); Total Protein 6.9 gm/dl (6.0-8.3)
--- NOTE | 2023-11-28 18:25 | History & Physical Report ---
Date of Service November 28, 2023 Assessment & Plan (1) Complicated urinary tract infection: Plan: Assessment: 1. Altered mental status/acute encephalopathy probably multifactorial with underlying dementia complicating urinary tract infection and cellulitis of the right foot as described above. CT of the brain was reassuring. 2. Urinary tract infection-complicated with super indwelling suprapubic catheter with a history of ESBL organisms. Continue Invanz at this time. Urine cultures. Blood cultures. 3. Cellulitis of the right second digit of the lower extremity. If Podiatry is available obtain consultation if not we will obtain wound nurse consultation. Will try to add vancomycin to the implants at this time for coverage. Will check a CRP and a sed rate. There is no active discharge for culturing. 4. Diabetes mellitus type 2. Sliding scales been ordered. 5. CT of the chest abdomen pelvis pending at the time of this dictation. The patient has no complaints of shortness of breath no complaints of abdominal pain. 6. Chronic atrial fibrillation on chronic Eliquis therapy this will be continued. 7. Acute on chronic kidney injury. Patient has CKD stage IIIb send acute renal failure with a creatinine of 2.7 with a baseline of 3.0. Will hydrate gently overnight and reassess renal function in the morning 8. Anemia of chronic disease stable. 9. Advancing dementia stable. 10. History of obstructive sleep apnea with nontolerant/compliance with CPAP. Will do continuous pulse ox overnight. Oxygen therapy if need be. 11. Chronic urinary outlet obstruction with chronic indwelling suprapubic catheter. 12. Hypothyroidism we will check a TSH level in the morning continue current replacement. 13. GERD continue PPI. Plan: As discussed above. Please refer to orders for further planning. Pending plain film x-ray of the foot advanced imaging may need to be performed in the morning to rule out osteomyelitis. History of Present Illness Chief Complaint: Altered mental status. Primary Care Provider: [facility] This is a 88-year-old male with a history of dementia who apparently has had some episodes of confusion worse than his baseline today. He presented to the ER for further evaluation and treatment. In the ER he was found to have a negative CT of the brain. His laboratory studies showed some mild acute on chronic kidney failure with a creatinine of 2.7 with a baseline of approximately 2.0. Chest x-ray was negative for acute infiltrate per wet read. Right foot x-ray was obtained and results are pending. This is due to an ulceration on the dorsal aspect of his second digit approximately 1 cm ulceration with surrounding erythema and swelling of that digit. CT of the chest abdomen pelvis were also obtained in the ER all of which are pending results at the time of this dictation. Laboratory studies are otherwise reassuring or at their baseline. Patient received Invanz due to having history of ESBL organisms in his urine due to chronic indwelling suprapubic catheter. Urine cultures were sent, blood cultures were sent. The patient is accompanied by his today. She has confirmed a DNR status for the patient. It was reported that the patient might have been hypoxemic however he is on room air and is 98 to 100% the entire time in the room. He has not been on oxygen in the ER. However intermittently the patient plays with his pulse oximeter and there is a bad waveform. Allergies Allergy/AdvReac Type Severity Reaction Status Date / Time iron [From Venofer] AdvReac Mild warm Verified 10/29/23 09:24 sensation/flushing, discomfort in arm in which it was i Home Medications Medication Instructions Recorded Confirmed Type calcium carbonate 500 mg-vitamin 1 tab PO QAM 12/18/19 09/27/23 History D3 5 mcg (200 unit) tablet (Calcium 500 + D) vitamin B complex 1 tab PO QAM 12/18/19 09/27/23 History Lactobacillus acidophilus 10 10,000 mmu cells PO QDD 01/18/21 09/27/23 History billion cell capsule (Probiotic) multivitamin 1 tab PO DAILY 08/01/22 09/27/23 History sodium bicarbonate 650 mg tablet 650 mg PO BID Stomach upset #180 08/10/22 09/27/23 Rx tabs calcitriol 0.25 mcg capsule 0.25 mcg PO DAILY #90 caps 10/06/22 09/27/23 Rx magnesium oxide 400 mg (241.3 mg 400 mg PO BID #180 tabs 11/23/22 09/27/23 Rx magnesium) tablet acetaminophen 500 mg tablet 1,000 mg PO Q8H PRN Pain 12/22/22 09/27/23 History (Tylenol Extra Strength) apixaban 2.5 mg tablet (Eliquis) 2.5 mg PO BID #180 tabs 04/15/23 09/27/23 Rx clopidogrel 75 mg tablet (Plavix) 75 mg PO DAILY #90 tabs 04/15/23 09/27/23 Rx ferrous sulfate 325 mg (65 mg 325 mg PO DAILY 04/27/23 09/27/23 History iron) tablet,delayed release levothyroxine 25 mcg tablet 25 mcg PO DAILYBB 90 days #90 tabs 05/27/23 09/27/23 Rx (Synthroid) omeprazole 40 mg capsule,delayed 40 mg PO BID 90 days #180 caps 06/23/23 09/27/23 Rx release gabapentin 100 mg capsule 100 mg PO BID #180 caps 08/05/23 09/27/23 Rx miconazole nitrate 2 % topical 1 applic EXT BID PRN as directed 08/13/23 09/27/23 History powder (Desenex) oxybutynin chloride 5 mg 5 mg PO QAM #30 tabs 08/18/23 09/27/23 Rx tablet,extended release 24 hr cholecalciferol (vitamin D3) 1,250 1,250 mcg PO WK 09/27/23 09/27/23 History mcg (50,000 unit) tablet oxycodone 5 mg tablet 5 mg PO Q6H PRN Severe pain 9-10 09/27/23 09/27/23 History polyethylene glycol 3350 17 gram 17 g PO DAILY 09/27/23 09/27/23 History oral powder packet (Miralax) sennosides 8.6 mg tablet 8.6 mg PO BID 09/27/23 09/27/23 History carvedilol 3.125 mg tablet 3.125 mg PO BIDM #60 tabs 10/01/23 Rx Past Med/Surg History Problem List (Updated 11/28/23 @ 18:22 by Oliver Hunt MD) Complicated urinary tract infection (Acute) Syncope (Acute) Catheter-associated urinary tract infection Suprapubic catheter Ribs, multiple fractures Closed left clavicular fracture Fall (Acute) Contusion of left shoulder (Acute) Head injury (Acute) Closed fracture of left hip (Acute) History of infection due to ESBL Escherichia coli SCC (squamous cell carcinoma), penis Stage 3b chronic kidney disease Asymptomatic bacteriuria Cellulitis (Acute) Shoulder pain Diarrhea (Acute) Near syncope (Acute) Atypical chest pain Anemia (Acute) Lumbosacral facet joint syndrome Knee sprain Knee contusion History of arthroplasty of right knee Anemia of chronic disease Ambulatory dysfunction Hypotension Frailty Discogenic lumbar pain Diarrhea Falls frequently Headache (Acute) UTI due to extended-spectrum beta lactamase (ESBL) producing Escherichia coli (Acute) Tremor Foraminal stenosis of lumbosacral region DDD (degenerative disc disease), lumbar Chronic low back pain Weakness (Acute) Near syncope (Acute) Unresponsiveness Degenerative spondylolisthesis Retrolisthesis of vertebrae Low back pain potentially associated with spinal stenosis Left-sided chest pain (Acute) Hypomagnesemia (Acute) Generalized weakness (Chronic) Loose stools Urinary urgency Left-sided face pain Urinary leakage (Chronic) Insufficient social insurance or welfare support Patient not earning income Lumbar spondylosis Secondary hyperparathyroidism of renal origin Prediabetes Vertigo Syncope (Acute) Vitamin D deficiency Anemia Balanitis Rectal bleed Gait apraxia of elderly Chest wall contusion H/O shoulder replacement S/P prostatectomy Elevated TSH Osteoarthritis Peripheral neuropathy Mild cognitive impairment (Chronic) Urge incontinence of urine (Chronic) Obesity (Acute) Knee joint replacement status (Acute 04/22/12) Erectile dysfunction (Acute) Elevated prostate specific antigen (PSA) (Acute) Diverticulosis of colon (Acute) Chronic anticoagulation (Chronic) Benign prostatic hyperplasia with urinary obstruction (Acute) Bariatric surgery status (Chronic 04/22/12) Anal stricture (Acute) Carpal tunnel syndrome, left S/P carpal tunnel release Anemia Left-sided chest pain (Chronic) BRBPR (bright red blood per rectum) Medical History Chronic kidney disease, stage III (moderate) Cellulitis of groin Sleep apnea Dementia Chronic renal insufficiency, stage IV (severe) SCC (squamous cell carcinoma), penis Atrial fibrillation no cardioversions/ no pacer. treated with medication and follows with PCP GERD (gastroesophageal reflux disease) Stage 3b chronic kidney disease Acute UTI Pain in penis Lumbosacral facet joint syndrome Discogenic lumbar pain Acute metabolic encephalopathy UTI (urinary tract infection) Rib pain on left side Syncopal episodes COVID-19 Penile cancer KENROY (acute kidney injury) Unresponsiveness Anemia of chronic disease Diarrhea SCC (squamous cell carcinoma), penis Chronic pruritus Hypothyroidism Secondary hyperparathyroidism of renal origin Orthostatic hypotension Vitamin D deficiency SBO (small bowel obstruction) Small bowel obstruction due to adhesions Rectal bleed BRBPR (bright red blood per rectum) Dementia Hyperkalemia Acute cholecystitis Substernal chest pain resolved per pt Dysphagia "trouble keeping foods down" Fall walker and cane -- fall risk. Colitis Concussion Degenerative disc disease Osteoarthritis History of bleeding ulcers Diabetes mellitus, type 2 diet controlled Hx of migraines Hx of sleep apnea no device Balanoposthitis Phimosis DDD (degenerative disc disease), lumbar Atrial fibrillation (04/22/12) Peptic ulcer disease BPH w urinary obs/LUTS Anal fistula Fall LAST FALL 1 WEEK AGO Hypoglycemia Bradycardia Surgical History S/P laparoscopic cholecystectomy (09/17/20) Laparoscopic Cholecystectomy with Cholangiogram with akira drain 09/17/20 Dr. Atkinson Hx of circumcision 2 yrs ago H/O knee surgery "MULTIPLE KNEE SURGERIES"- R/L History of total shoulder replacement LEFT History of total knee replacement RT/LEFT History of esophagogastroduodenoscopy (EGD) History of colonoscopy History of tooth extraction Hx of transurethral resection of prostate H/O gastric bypass 2004 Family History Sister Family history of diabetes mellitus Social History Smoking Status: Former smoker Tobacco Type: Cigarettes Second Hand Exposure: No; Do You Dip or Chew Tobacco: No; Hx Alcohol Use: No Hx Substance Use: No Preferred Language: Hungarian Communication Ability: Impaired Communication Ability Comment: can be forgetful Typing Office Worker Required: No Beliefs That Will Affect Care: None marital status: Current Living Situation: Spouse Current Living Situation Comment: At home with current occupational status: retired Feels Safe at Home: Yes Diet: regular caffeine: No Dental Care, Regularly: Yes Seatbelt Use: always Assistive Devices: Walker Review of Systems Review of Systems: A 10 point review of system was obtained and unless otherwise stated here or in history of present illness are negative and noncontributory to chief complaint. Physical Exam Constitutional: In General: In general this is a pleasant 88-year-old male he is alert and oriented to person and place but not to time. He is accompanied by his at the time of my examination. He states that his toe is painful. According to the the lesion in this toe has been present for the last several weeks. They were addressing it with a Band-Aid which made his discomfort worse according to the patient. HEENT: Normocephalic atraumatic pupils are equal round and reactive to light bilaterally. No scleral icterus no conjunctival injection external auditory canals are patent septum is in the midline nose is without discharge oral mucosa is pink and dry without lesion. NECK: Supple no rigidity no lymphadenopathy no thyromegaly no carotid bruits no JVD no masses. HEART: Irregular rate and rhythm consistent with atrial fibrillation. His rate is controlled at around 80 to 90 bpm. I do not appreciate any rub or murmur on exam. LUNGS: Clear to auscultation bilaterally and anteriorly with no evidence of adventitious sounds/wheezes rales or rhonchi. ABDOMEN: Soft nontender, no rebound, no peritoneal signs, positive bowel sounds, no appreciable organomegaly. Suprapubic catheter insertion site is noted in the suprapubic region. This is intact clean and dry with no surrounding erythema or discharge. EXTREMITIES: Intact, no peripheral cyanosis, clubbing or edema. With the exception of his right second digit. There is an ulcer at the first joint on the dorsum aspect approxi-1 cm in diameter there is surrounding erythema inv olving the entire digit. And swelling involving the entire digit. It is warm to the touch. There is no active discharge. NEUROLOGICAL: Cranial nerves II through XII are grossly intact with no focal deficit elicited upon examination. No tremor. Results & Data Results & Data Vital Signs (Past 12 Hours) Vital Signs Temp Pulse Pulse Resp BP BP Pulse Ox 11/28/23 17:56 94 H 17 125/84 98 11/28/23 16:41 100 11/28/23 16:35 86 11/28/23 16:30 85 16 98 11/28/23 16:30 134/88 11/28/23 16:24 36.6 C 88 18 134/88 100 11/28/23 16:21 90 O2 Del Method 11/28/23 17:56 Room Air 11/28/23 16:41 Room Air 11/28/23 16:35 11/28/23 16:30 11/28/23 16:30 11/28/23 16:24 Room Air 11/28/23 16:21 Code Status & VTE Plan Code Status DO NOT RESUSCITATE-I personally discussed with the patient's spouse at the bedside who confirmed this with the ER physician as well as myself this evening. PG Care Time/CCT Total # of Minutes Spent Total Time Spent with Patient: Total time spent is greater than 50% in coordination of care (as documented) at patient's floor/unit and/or counseling patient: Coding Level of Care Code 68375 INT INP/OBS CARE 3/75MIN Diagnoses Complicated urinary tract infection N39.0
[2023-11-28] MEDS ORDERED: VANCOMYCIN CONSULT ACTIVE PRN (18:26)
[2023-11-28] MEDS ORDERED: VANCOMYCIN HCL 1,250 MG in SODIUM CHLORIDE 0.9% 500 ML IV SCH (18:30)
--- NOTE | 2023-11-28 18:40 | CT Scan Report ---
CT SCAN OF THE CHEST, ABDOMEN, AND PELVIS WITHOUT IV CONTRAST CLINICAL HISTORY: Atypical chest pain. Syncope. Renal insufficiency. COMPARISON STUDY: Chest CT dated 08/22/2023. Abdominal CT dated 09/27/2023. TECHNIQUE: Unenhanced CT scan of the chest, abdomen, and pelvis was performed from the thoracic inlet to the proximal femora. Images are reviewed in the axial, sagittal, and coronal planes. IV contrast was not administered due to poor renal function. Note that the examinations are significant only subo ptimal without IV contrast. A dose lowering technique was utilized adhering to the principles of ALA RA. CT DOSE: 2827.18 mGy.cm FINDINGS: CHEST: Thyroid: Imaged portions of the thyroid gland are normal in size and attenuation. Thoracic aorta: There is atherosclerotic calcification of the thoracic aorta, which is normal in ale arthur and demonstrates standard 3-vessel arch anatomy. Heart: The heart is enlarged noting trace pericardial effusion. The coronary arteries are densely flavio cified. Lungs and pleural spaces: There is no airspace consolidation, pleural effusion, or pneumothorax. Scar ring/atelectasis is noted at the lung bases. The trachea and central airways are clear. Mild bronchie ctasis is noted in the lower lobes. Mediastinum: There is no mediastinal hematoma or lymphadenopathy. Jackie: Not well assessed without IV contrast. Axillae: There is no axillary lymphadenopathy. Bony thorax: The skeletal structures are osteopenic. No acute fractures clearly seen involving the carlee ny thorax. Degenerative change is seen throughout the thoracic spine with evidence of DISH. No lytic or blastic lesions are identified. A left shoulder arthroplasty is in place. Arthritic change is note d in the right shoulder. There is chronic posttraumatic deformity of the left clavicle. There are chr onic/healed bilateral rib fractures. ABDOMEN AND PELVIS: Liver: The unenhanced liver is normal in size, contour, and attenuation. There is no intrahepatic rodolfo iary ductal dilatation. Gallbladder: Surgically absent noting clips in the gallbladder fossa. Spleen: Normal in size and attenuation. Pancreas: The unenhanced pancreas is atrophic and grossly unremarkable. Adrenal glands: Unremarkable. Kidneys: The unenhanced kidneys are atrophic and without hydronephrosis. No renal calculi are clearly identified. There are renovascular calcifications. There is no evidence of contour deforming mass le rosmery. Abdominal vasculature: There is advanced atherosclerotic calcification and mild ectasia of the abdomi nal aorta. Stomach and bowel: There is a small hiatal hernia. Postsurgical change is noted in the stomach. There is moderate colonic diverticulosis without CT evidence of acute diverticulitis. Moderate fecal reten tion is noted throughout the colon. No bowel obstruction is seen. The appendix is well-visualized an d normal. Peritoneum: There is no intraperitoneal free air or abdominal ascites. Lymphadenopathy: None. Pelvic viscera: The bladder is decompressed around a suprapubic catheter and appears thick-walled wit h surrounding infiltration. There are foci of nonspecific intraluminal gas. The prostate gland is enl arged and heterogeneous. Skeletal structures: The skeletal structures are osteopenic. No acute fracture is seen involving the lumbosacral spine, bony pelvis, or proximal femora. There is moderate to advanced lumbosacral spondyl osis. No lytic or blastic lesions are seen. There is an intertrochanteric fracture of the left proxim al femur status post intertrochanteric and intramedullary nail fixation. This is similar to previous. Fracture lucency persists. IMPRESSION: 1. There is no acute posttraumatic intrathoracic abnormality. 2. There is no airspace consolidation, pleural effusion, or pneumothorax. 3. Cardiomegaly noting advanced coronary artery atherosclerosis. 4. No acute fracture seen. 5. There is no evidence of solid organ injury in the abdomen or pelvis. 6. A left proximal femoral fracture is unchanged status post open reduction and internal fixation. 7. Colonic diverticulosis without CT evidence of acute diverticulitis. 8. The bladder is largely decompressed around a suprapubic catheter appears thick-walled with surroun ding infiltration. Correlate with clinical findings and urinalysis. 9. Additional findings as above. ACT 112: Negative or not required by law. Electronically signed by: Guillermo Fitzgerald M.D. 11/28/2023 6:38 PM
--- NOTE | 2023-11-28 18:58 | XRay Report ---
SINGLE VIEW CHEST CLINICAL HISTORY: Sepsis FINDINGS: An AP, portable, upright chest radiograph is compared to study dated 09/27/2023 and correlat ed with chest CT performed the same day 11/28/2023. The heart is enlarged and noting atherosclerotic c alcification of the thoracic aorta. The pulmonary vasculature is noncontrast. Chronic interstitial th ickening similar to previous. There is bibasilar scarring/atelectasis. No airspace consolidation or l arge pleural effusion is identified. No pneumothorax is seen. The skeletal structures are osteopenic. There is chronic deformity left clavicle. A left shoulder arthroplasty is in place. Advanced arthrit ic change is noted in the right shoulder. IMPRESSION: Cardiomegaly with no acute cardiopulmonary abnormality identified. ACT 112: Negative or not required by law. Electronically signed by: Guillermo Fitzgerald M.D. 11/28/2023 6:57 PM
--- NOTE | 2023-11-28 19:01 | XRay Report ---
KUB CLINICAL HISTORY: Generalized abdominal pain. FINDINGS: 3 AP, portable, supine abdominal radiographs are compared to study dated 05/05/2023 and cor related with abdominal CT performed the same day 11/28/2023. There is mild gaseous distention of the s mall bowel loops without radiographic evidence of high-grade obstruction. This was better assessed on today's abdominal CT. Cholecystectomy clips are seen in the right upper quadrant. Suture material pr ojects over the stomach. No evidence of intraperitoneal free air is seen on these supine images. Ther e are no abnormal abdominal calcifications. A suprapubic catheter projects over the pelvis. The skele amadou structures are osteopenic. There is moderate lumbosacral spondylosis. Postsurgical change is part ially visualized in the left proximal femur. IMPRESSION: No acute abnormality is identified. Electronically signed by: Guillermo Fitzgerald M.D. 11/28/2023 7:00 PM
[2023-11-28 19:07] LABS: C Reactive Protein 1.18 mg/dl (0-0.5)
[2023-11-28] MEDS: ERTAPENEM SODIUM 10 ML IV STA (19:15)
--- NOTE | 2023-11-28 20:05 | XRay Report ---
RIGHT FOOT 2 VIEWS CLINICAL HISTORY: Second toe ulcer. FINDINGS: AP and lateral views of the right foot are compared to study dated 10/07/2022. The skeletal s tructures are heterogeneously osteopenic. No acute fracture is seen. No bony erosion is identified. M ild osteoarthritic change is noted throughout the foot. There is a small dorsal heel spur. Soft tissu e edema is seen throughout the foot. There is advanced atherosclerotic calcification of the regional arteries. Soft tissue calcification is noted along the course of the plantar fascia. IMPRESSION: Soft tissue swelling throughout the foot with no acute bony abnormality identified. Electronically signed by: Guillermo Fitzgerald M.D. 11/28/2023 8:03 PM
[2023-11-28] MEDS ORDERED: GLUCOSE 40% GEL 15 GM TUBE PO PRN (20:27)
[2023-11-28] MEDS ORDERED: ALUMINUM/MAGNESIUM/SIMETH (MAALOX MAX) 30 ML UDC PO PRN (20:27)
[2023-11-28] MEDS ORDERED: SOD PHOSPHATE/SOD BIPHOSPHATE ENEMA 132 ML BTL PR PRN (20:27)
[2023-11-28] MEDS ORDERED: GLUCOSE 10 TAB/TUBE PO PRN (20:27)
[2023-11-28] MEDS ORDERED: bisacodyL 10 MG SUPP PR PRN (20:27)
[2023-11-28] MEDS ORDERED: oxyCODONE HCL IR 5 MG TAB (IMMEDIATE RELEASE) PO PRN (20:27)
[2023-11-28] MEDS ORDERED: ACETAMINOPHEN 325 MG TAB PO PRN (20:27)
[2023-11-28] MEDS ORDERED: CARBOHYDRATES FOR HYPOGLYCEMIA PO PRN (20:27)
[2023-11-28] MEDS ORDERED: GLUCAGON FOR INJ 1 MG VIAL SQ PRN (20:27)
[2023-11-28] MEDS: VANCOMYCIN HCL 1,750 MG in SODIUM CHLORIDE 0.9% 500 ML IV ONE (20:28)
[2023-11-28] MEDS: SENNA 8.6 MG TAB PO SCH (21:17)
[2023-11-28] MEDS: PANTOprazole 40 MG TAB PO SCH (21:18)
[2023-11-28] MEDS: MAGNESIUM OXIDE 400 MG TAB PO SCH (21:18)
[2023-11-28] MEDS: GABAPENTIN 100 MG CAP PO SCH (21:19)
[2023-11-28] MEDS: APIXABAN 2.5 MG TAB PO SCH (21:19)
[2023-11-28] MEDS: SODIUM BICARBONATE 650 MG TAB PO SCH (21:20)
[2023-11-28] MEDS: DICLOFENAC SOD 1% GEL 100 GM TUBE EXT SCH (21:20)
--- NOTE | 2023-11-28 21:30 | Pharmacy Report ---
Pharmacy PK ABX Note - Date of Service November 28, 2023 - Assessment and Plan Assessment 88 year old M started on vancomycin/ertapenem for SSTI/UTI. Presenting with altered mental status, concerns for UTI and cellultis of right foot. Presenting with KENROY on admission. Blood cultures and urine cultures pending. Vancomycin * Loading dose: 1750 mg x 1 given this evening * Patient with elevated Scr from baseline - Estimated t1/2>24 hours therefore will dose by levels. * Will order a random level tomorrow AM to assist with further dosing. Pharmacy will continue to follow and will adjust dose/frequency as necessary. Thank you.
[2023-11-28] MEDS: INSULIN ASPART PER UNIT CHARGE SC SCH (21:36)
[2023-11-29] MEDS: LEVOTHYROXINE SODIUM 25 MCG TABLET PO SCH (06:07)
[2023-11-29 07:36] LABS: Estimated Average Glucose 131 mg/dl; Hemoglobin A1C 6.2 % (4.5-5.6)
[2023-11-29 07:50] LABS: C Reactive Protein 0.76 mg/dl (0-0.5); Calcium 8.3 mg/dl (8.6-10.3); Creatinine Clr Calc Pharmacy 22.4 ml/min; Est GFR (African American) 27.1 ml/min; Est GFR (Non-African American) 23.4 ml/min; Potassium 4.1 mmol/L (3.5-5.1)
[2023-11-29 07:56] LABS: Basophils # (auto) 0.05 K/uL (0.00-0.20); Basophils % (auto) 0.8 %; Eosinophils # (auto) 0.32 K/uL (0.00-0.50); Eosinophils % (auto) 5.4 %; Hematocrit (blood only) 32.1 % (42.0-52.0); Immature Granulocytes # (auto) 0.03 K/uL (0.01-0.20); Immature Granulocytes % (auto) 0.5 %; Lymphocytes % (auto) 20.1 %; Mean Corpuscular Hgb Conc 31.2 g/dL (32.0-36.0); Mean Platelet Volume 10.7 fL (9.4-12.4); Monocytes # (auto) 0.48 K/uL (0.11-0.59); Monocytes % (auto) 8.1 %; Neutrophils # (auto) 3.88 K/uL (1.40-6.50); Neutrophils % (auto) 65.1 %; Platelet Count 215 K/uL (130-400); RDW Coefficient of Variation 16.9 % (11.5-14.5); RDW Standard Deviation 57.5 fL (36.4-46.3); Red Blood Count 3.45 M/uL (4.70-6.10); White Blood Count 5.96 K/ul (4.8-10.8)
[2023-11-29] MEDS: MIDODRINE HCL 2.5 MG TAB PO SCH (07:57)
[2023-11-29] MEDS: FERROUS SULFATE 325 MG TAB PO SCH (07:58)
[2023-11-29] MEDS: OXYBUTYNIN CHLORIDE XL 5 MG TABCR PO SCH (08:00)
[2023-11-29] MEDS: POLYETHYLENE (MIRALAX) 17 GM PACK PO SCH (08:00)
--- NOTE | 2023-11-29 08:01 | Electrocardiogram Report ---
Test Reason : Blood Pressure : / mmHG Vent. Rate : 084 BPM Atrial Rate : 000 BPM P-R Int : 000 ms QRS Dur : 086 ms QT Int : 346 ms P-R-T Axes : 000 000 033 degrees QTc Int : 408 ms Atrial fibrillation Low voltage QRS Abnormal ECG When compared with ECG of 27-SEP-2023 11:50, No significant change was found Confirmed by Josue Pa ([id number]) on 11/29/2023 8:01:46 AM [facility] Confirmed By:Josue Pa
--- NOTE | 2023-11-29 08:27 | Pharmacy Report ---
Pharmacy PK ABX Note - Date of Service November 29, 2023 - Assessment and Plan Assessment 11/28: Reviewed vancomycin level, ok to give dose today, will redose at 15mg/kg. Will continue to dose per levels, serum creatinine improved, still above baseline. Random level for tomorrow AM. 11/27: 88 year old M started on vancomycin/ertapenem for SSTI/UTI. Presenting with altered mental status, concerns for UTI and cellultis of right foot. Presenting with KENROY on admission. Blood cultures and urine cultures pending. Vancomycin * Vancomycin 1250mg x1 today * Patient with elevated Scr from baseline - Estimated t1/2>24 hours therefore will dose by levels. * Will order a random level tomorrow AM to assist with further dosing. Pharmacy will continue to follow and will adjust dose/frequency as necessary. Thank you.
[2023-11-29] MEDS: VANCOMYCIN HCL 1,250 MG in SODIUM CHLORIDE 0.9% 250 ML IV ONE (10:17)
[2023-11-29] MEDS ORDERED: POLYETHYLENE (MIRALAX) 17 GM PACK PO PRN (11:11)
--- NOTE | 2023-11-29 12:02 | Hospitalist Progress Note ---
Date of Service November 29, 2023 Assessment & Plan (1) Metabolic encephalopathy: Plan: Present on admission. Due to underlying UTI. Supportive care. (2) CKD (chronic kidney disease): Plan: Stable. Monitor intake and output. Serial lab (3) Dementia: Plan: Stable. Continue current medical management. 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 History of ESBL E. coli infection. Urine culture currently growing gram-negative bacilli. Final identification and sensitivities pending. (5) Suprapubic catheter: Plan: Chronic (6) Stage 3b chronic kidney disease: Plan: Monitor intake and output. Serial labs (7) Cellulitis of toe of right foot: Plan: Right second toe. Fortunately, x-ray is negative for osteomyelitis. Continue wound care. Continue ertapenem and vancomycin, day 2, for now Plan Eventual return to [facility] care hopefully within the next day or 2 Admission and Anticipated Discharge Date Admission Date: November 28, 2023 Subjective Alert. Vital signs are stable. No new problems. Urine culture is growing gram-negative bacilli. He has a history of ESBL E. coli. Blood culture is negative to date. Creatinine down to 2.4. Stools are loose and MiraLAX has been switched from scheduled dosing to as needed dosing. Right foot x-ray is negative for osteomyelitis. He will return to [facility] care at discharge, hopefully soon Review of Systems 2 Review of Systems: The patient is unable to provide any reliable information regarding review of systems Physical Exam 2 Physical Exam: General-alert and oriented x1, no fever, no chills HEENT-head atraumatic and normocephalic, pupils equal and reactive to light, extraocular muscles intact Neck-no lymphadenopathy or thyromegaly, trachea midline Chest-clear to auscultation. No rales, wheezing or rhonchi Cardiac-irregular rhythm, controlled rate. Normal S1 and S2 Abdomen-normal bowel sounds, no hepatosplenomegaly Extremities-no cyanosis, clubbing, or edema Neuro-cranial nerves II through XII intact, motor and sensory function within normal limits, strength symmetrical and consistent with age, no focal deficits Psych-normal affect, normal mood. Baseline dementia Results & Data Results & Data Vital Signs (Past 12 Hours) Vital Signs Temp Pulse Pulse Resp BP BP Pulse Ox 11/29/23 11:54 36.6 C 90 18 92/59 L 96 11/29/23 09:02 11/29/23 07:37 36.4 C 99 H 18 107/69 97 11/29/23 07:06 98 H 11/29/23 06:29 96 11/29/23 04:22 36.4 C L 81 20 110/67 99 11/29/23 03:18 14 96 11/29/23 03:15 12 82 L 11/29/23 01:51 Pulse Ox O2 Del Method O2 Del Method O2 Flow Rate 11/29/23 11:54 Oxymask 2 11/29/23 09:02 Room Air 11/29/23 07:37 Room Air 11/29/23 07:06 11/29/23 06:29 Room Air 11/29/23 04:22 Oxymask 2 11/29/23 03:18 Oxymask 2 11/29/23 03:15 Room Air 11/29/23 01:51 98 Room Air Laboratory Results 11/29/23 06:48 11/29/23 06:48 PG Care Time/CCT Total # of Minutes Spent Total Time Spent with Patient: Total time spent is greater than 50% in coordination of care (as documented) at patient's floor/unit and/or counseling patient: Coding Level of Care Code 09338 SUB INP/OBS CARE 3/50MIN Diagnoses Metabolic encephalopathy G93.41 CKD (chronic kidney disease) N18.9 Chronic kidney disease stage: unspecified stage Dementia F03.90 Dementia behavioral or psychological symptom: unspecified whether behavioral, psychotic, or mood disturbance or anxiety Dementia severity: unspecified severity Dementia type: unspecified type Urinary tract infection associated with catheterization of urinary tract, unspecified indwelling urinary catheter type, subsequent encounter T83.511D; N39.0 Indwelling urinary catheter type: unspecified Encounter type: subsequent encounter Suprapubic catheter Z93.59 Stage 3b chronic kidney disease N18.32 Cellulitis of toe of right foot L03.031 (2) CKD (chronic kidney disease) Chronic kidney disease stage: unspecified stage Qualified Code(s): N18.9 - Chronic kidney disease, unspecified (3) Dementia Dementia behavioral or psychological symptom: unspecified whether behavioral, psychotic, or mood disturbance or anxiety Dementia severity: unspecified severity Dementia type: unspecified type Qualified Code(s): F03.90 - Unspecified dementia, unspecified severity, without behavioral disturbance, psychotic disturbance, mood disturbance, and anxiety (4) Catheter-associated urinary tract infection Indwelling urinary catheter type: unspecified Encounter type: subsequent encounter Qualified Code(s): T83.511D - Infection and inflammatory reaction due to indwelling urethral catheter, subsequent encounter; N39.0 - Urinary tract infection, site not specified
[2023-11-29 16:56] LABS: A calco-baum cmplx NotReported Not Detected (NotDetected); Bact fragilis Not Reported Not Detected (NotDetected); Blood Culture Id Panel See PCR Comment (NotDetected); C auris Not Reported Not Detected (NotDetected); Calbicans Not Reported Not Detected (NotDetected); Candida glabrata Not Reported Not Detected (NotDetected); Candida krusei Not Reported Not Detected (NotDetected); Cneoformans/gatti Not Reported Not Detected (NotDetected); Cparapsilosis Not Reported Not Detected (NotDetected); E cloacae compx Not Reported Not Detected (NotDetected); Efaecalis Not Reported Not Detected (NotDetected); Efaecium Not Reported Not Detected (NotDetected); Enterobacterales Not Reported Not Detected (NotDetected); Escherichia coli Not Reported Not Detected (NotDetected); H influenzae Not Reported Not Detected (NotDetected); K aerogenes Not Reported Not Detected (NotDetected); Koxytoca Not Reported Not Detected (NotDetected); Kpneumoniae grp Not Reported Not Detected (NotDetected); Lmonocyt Not Reported Not Detected (NotDetected); N meningitidis Not Reported Not Detected (NotDetected); P aeruginosa Not Reported Not Detected (NotDetected); Proteus spp Not Reported Not Detected (NotDetected); Salmonella spp Not Reported Not Detected (NotDetected); Smarcescens Not Reported Not Detected (NotDetected); Staph lugdunensis Not Reported Not Detected (NotDetected); Staph spp. Not Reported DETECTED (NotDetected); Staphaureus Not Reported Not Detected (NotDetected); Staphylococcus epidermidis DETECTED (NotDetected); Staphylococcus spp. DETECTED (NotDetected); Stenmaltophilia Not Reported Not Detected (NotDetected); Strep agal(GrpB) Not Reported Not Detected (NotDetected); Strep pneum Not Reported Not Detected (NotDetected); Strep pyog (GrpA) Not Reported Not Detected (NotDetected); Strep spp Not Reported Not Detected (NotDetected)
[2023-11-29 17:08] LABS: Staphepi Not Reported DETECTED (NotDetected); mecAC Resistant Gene DETECTED (NotDetected)
[2023-11-29] MEDS: ERTAPENEM SODIUM 500 MG in SYRINGE 0 ML IV SCH (19:36)
[2023-11-29] MEDS: DEXTROSE 50% 50 ML SYRINGE IV PRN (20:05)
[2023-11-30] MEDS ORDERED: MICONAZOLE NITRATE POWDER 85 GM EXT PRN (00:48)
[2023-11-30 07:35] LABS: Basophils # (auto) 0.05 K/uL (0.00-0.20); Basophils % (auto) 0.8 %; Eosinophils # (auto) 0.33 K/uL (0.00-0.50); Eosinophils % (auto) 5.1 %; Hemoglobin 9.5 g/dl (14.0-18.0); Immature Granulocytes # (auto) 0.03 K/uL (0.01-0.20); Immature Granulocytes % (auto) 0.5 %; Lymphocytes # (auto) 1.61 K/uL (1.20-3.40); Mean Corpuscular Hemoglobin 28.7 pg (25.0-34.0); Mean Corpuscular Hgb Conc 30.6 g/dL (32.0-36.0); Mean Corpuscular Volume 93.7 fL (80.0-100.0); Mean Platelet Volume 10.5 fL (9.4-12.4); Monocytes # (auto) 0.55 K/uL (0.11-0.59); Monocytes % (auto) 8.5 %; Neutrophils # (auto) 3.87 K/uL (1.40-6.50); Neutrophils % (auto) 60.1 %; Platelet Count 214 K/uL (130-400); RDW Coefficient of Variation 16.9 % (11.5-14.5); RDW Standard Deviation 58.4 fL (36.4-46.3); Red Blood Count 3.31 M/uL (4.70-6.10); White Blood Count 6.44 K/ul (4.8-10.8)
[2023-11-30 07:52] LABS: BUN Creatinine Ratio 13.7 (10-20); Calcium 8.2 mg/dl (8.6-10.3); Creatinine Clr Calc Pharmacy 23.1 ml/min; Est GFR (African American) 28.1 ml/min; Est GFR (Non-African American) 24.2 ml/min; Potassium 4.1 mmol/L (3.5-5.1)
[2023-11-30] MEDS ORDERED: VANCOMYCIN HCL 1,250 MG in SODIUM CHLORIDE 0.9% 250 ML IV ONE (09:00)
--- NOTE | 2023-11-30 13:15 | Hospitalist Progress Note ---
Date of Service November 30, 2023 Assessment & Plan (1) Metabolic encephalopathy: Plan: Present on admission. Due to underlying UTI. Supportive care. Appears to have resolved (2) Dementia: Plan: Stable. Continue current medical management. 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 History of ESBL E. coli infection. Urine culture currently growing ESBL E. coli. Fortunately it is sensitive to Bactrim DS. He is currently on ertapenem and will be switched to oral Bactrim at the time of discharge. (4) Suprapubic catheter: Plan: Chronic. Supportive care (5) Stage 3b chronic kidney disease: Plan: Mild acute exacerbation present on admission with creatinine elevated to 2.7. Creatinine now 2.3 and at baseline. Monitor intake and output. Serial labs. (6) Cellulitis of toe of right foot: Plan: Right second toe. Fortunately, x-ray is negative for osteomyelitis. Continue wound care. Vancomycin discontinued today, November 29. He remains on ertapenem. Plan Hopeful return to [facility] care tomorrow on oral Bactrim DS, November 30 Admission and Anticipated Discharge Date Admission Date: November 28, 2023 Subjective Alert and pleasant. ESBL E. coli isolated in the urine. Fortunately it is sensitive to oral Bactrim therapy which will be started at discharge. Vancomycin has been discontinued. He remains on ertapenem while hospitalized. The blood culture reveals 1 of 4 bottles positive for gram-positive cocci which probably is a contaminant. Review of Systems 2 Review of Systems: Constitutional-no fever or chills ENT-no blurred vision, no double vision, no epistaxis, no sore throat Respiratory-no cough, no wheezing, no shortness of breath Cardiac-no palpitations, no chest pain, no syncope GI-no nausea, vomiting, diarrhea, melena, hematochezia -no urinary retention, no urinary incontinence, no dysuria, no hematuria Musculoskeletal-no joint pain, no muscle tenderness Skin-no bruising, no rashes, no pruritus Neuro-no isolated weakness, no paresthesia, no weakness Psych-no depression, no anxiety Physical Exam 2 Physical Exam: General-alert and oriented x1, no fever, no chills HEENT-head atraumatic and normocephalic, pupils equal and reactive to light, extraocular muscles intact Neck-no lymphadenopathy or thyromegaly, trachea midline Chest-clear to auscultation. No rales, wheezing or rhonchi Cardiac-irregular rhythm, controlled rate. Normal S1 and S2 Abdomen-normal bowel sounds, no hepatosplenomegaly Extremities-no cyanosis, clubbing, or edema Neuro-cranial nerves II through XII intact, motor and sensory function within normal limits, strength symmetrical and consistent with age, no focal deficits Psych-normal affect, normal mood. Baseline dementia Results & Data Results & Data Vital Signs (Past 12 Hours) Vital Signs Temp Pulse Resp BP Pulse Ox O2 Del Method 11/30/23 11:32 36.8 C 72 18 103/58 L 94 Room Air 11/30/23 09:06 Room Air 11/30/23 07:34 36.4 C L 78 18 100/67 99 Room Air 11/30/23 03:00 36.6 C 90 18 99/64 L 96 Room Air Laboratory Results 11/30/23 07:07 11/30/23 07:07 PG Care Time/CCT Total # of Minutes Spent Total Time Spent with Patient: Total time spent is greater than 50% in coordination of care (as documented) at patient's floor/unit and/or counseling patient: Coding Level of Care Code 96003 SUB INP/OBS CARE 3/50MIN Diagnoses Metabolic encephalopathy G93.41 Dementia F03.90 Dementia behavioral or psychological symptom: unspecified whether behavioral, psychotic, or mood disturbance or anxiety Dementia severity: unspecified severity Dementia type: unspecified type Urinary tract infection associated with catheterization of urinary tract, unspecified indwelling urinary catheter type, subsequent encounter T83.511D; N39.0 Indwelling urinary catheter type: unspecified Encounter type: subsequent encounter Suprapubic catheter Z93.59 Stage 3b chronic kidney disease N18.32 Cellulitis of toe of right foot L03.031 (2) Dementia Dementia behavioral or psychological symptom: unspecified whether behavioral, psychotic, or mood disturbance or anxiety Dementia severity: unspecified severity Dementia type: unspecified type Qualified Code(s): F03.90 - Unspecified dementia, unspecified severity, without behavioral disturbance, psychotic disturbance, mood disturbance, and anxiety (3) Catheter-associated urinary tract infection Indwelling urinary catheter type: unspecified Encounter type: subsequent encounter Qualified Code(s): T83.511D - Infection and inflammatory reaction due to indwelling urethral catheter, subsequent encounter; N39.0 - Urinary tract infection, site not specified
[2023-11-30] MEDS: ACETAMINOPHEN 500 MG TAB PO PRN (14:38)
[2023-12-01 08:28] LABS: Basophils # (auto) 0.04 K/uL (0.00-0.20); Basophils % (auto) 0.7 %; Eosinophils # (auto) 0.39 K/uL (0.00-0.50); Eosinophils % (auto) 6.4 %; Immature Granulocytes # (auto) 0.02 K/uL (0.01-0.20); Immature Granulocytes % (auto) 0.3 %; Lymphocytes # (auto) 2.01 K/uL (1.20-3.40); Lymphocytes % (auto) 32.8 %; Mean Corpuscular Hemoglobin 29.5 pg (25.0-34.0); Mean Corpuscular Hgb Conc 31.3 g/dL (32.0-36.0); Mean Corpuscular Volume 94.4 fL (80.0-100.0); Mean Platelet Volume 10.4 fL (9.4-12.4); Monocytes # (auto) 0.42 K/uL (0.11-0.59); Monocytes % (auto) 6.9 %; Neutrophils # (auto) 3.24 K/uL (1.40-6.50); Neutrophils % (auto) 52.9 %; Platelet Count 234 K/uL (130-400); RDW Coefficient of Variation 17.2 % (11.5-14.5); RDW Standard Deviation 59.5 fL (36.4-46.3); Red Blood Count 3.39 M/uL (4.70-6.10); White Blood Count 6.12 K/ul (4.8-10.8)
[2023-12-01 08:45] LABS: Calcium 8.3 mg/dl (8.6-10.3); Creatinine Clr Calc Pharmacy 21.6 ml/min; Est GFR (African American) 25.9 ml/min; Est GFR (Non-African American) 22.4 ml/min; Potassium 4.7 mmol/L (3.5-5.1)
--- NOTE | 2023-12-01 11:34 | Discharge Summary ---
Date of Service December 01, 2023 Admission HPI Per Admitting Provider This is a 88-year-old male with a history of dementia who apparently has had some episodes of confusion worse than his baseline today. He presented to the ER for further evaluation and treatment. In the ER he was found to have a negative CT of the brain. His laboratory studies showed some mild acute on chronic kidney failure with a creatinine of 2.7 with a baseline of approximately 2.0. Chest x-ray was negative for acute infiltrate per wet read. Right foot x-ray was obtained and results are pending. This is due to an ulceration on the dorsal aspect of his second digit approximately 1 cm ulceration with surrounding erythema and swelling of that digit. CT of the chest abdomen pelvis were also obtained in the ER all of which are pending results at the time of this dictation. Laboratory studies are otherwise reassuring or at their baseline. Patient received Invanz due to having history of ESBL organisms in his urine due to chronic indwelling suprapubic catheter. Urine cultures were sent, blood cultu res were sent. The patient is accompanied by his today. She has confirmed a DNR status for the patient. It was reported that the patient might have been hypoxemic however he is on room air and is 98 to 100% the entire time in the room. He has not been on oxygen in the ER. However intermittently the patient plays with his pulse oximeter and there is a bad waveform. Principal Diagnosis Recurrent ESBL E. coli CAUTI, right second toe cellulitis without osteomyelitis, acute on chronic kidney disease stage III Discharge Exam General-alert and oriented x1, no fever, no chills HEENT-head atraumatic and normocephalic, pupils equal and reactive to light, extraocular muscles intact Neck-no lymphadenopathy or thyromegaly, trachea midline Chest-clear to auscultation. No rales, wheezing or rhonchi Cardiac-irregular rhythm, controlled rate. Normal S1 and S2 Abdomen-normal bowel sounds, no hepatosplenomegaly Extremities-no cyanosis, clubbing, or edema Neuro-cranial nerves II through XII intact, motor and sensory function within normal limits, strength symmetrical and consistent with age, no focal deficits Psych-normal affect, normal mood. Baseline dementia Discharge Data Allergies Allergy/AdvReac Type Severity Reaction Status Date / Time iron [From Venofer] AdvReac Mild warm Verified 10/29/23 09:24 sensation/flushing, discomfort in arm in which it was i Consultations 11/28/23 17:56 ED Decision to Admit Stat Ordered Studies 11/28/23 16:50 CT abd pelvis wo con Stat CT chest diagnostic wo con Stat CT head/brain wo con Stat Hospital Course (1) Metabolic encephalopathy: Present on admission. Due to underlying UTI. Supportive care. Appears to have resolved (2) Dementia: Stable. Continue current medical management. 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 History of ESBL E. coli infection. Urine culture currently growing ESBL E. coli. Fortunately it is sensitive to Bactrim DS. He is currently on ertapenem and will be switched to oral Bactrim at the time of discharge. (4) Suprapubic catheter: Chronic. Supportive care (5) Stage 3b chronic kidney disease: Mild acute exacerbation present on admission with creatinine elevated to 2.7. Creatinine now at baseline. Monitor intake and output. Serial labs. (6) Cellulitis of toe of right foot: Right second toe. Fortunately, x-ray is negative for osteomyelitis. Continue wound care. Vancomycin discontinued on November 29. He remains on ertapenem while hospitalized. He will be on Bactrim DS at discharge. Plan Discharge to [facility] today, November 30 Total Time Total Time Spent Total Time Spent (In Minutes): 50 minutes Discharge Plan Discharge Items Patient Disposition: Transfer [facility] Reason For Visit: AMS Discharge Diagnosis: Recurrent ESBL E. coli CAUTI, right second toe cellulitis without osteomyelitis, acute on chronic kidney disease stage III Non-emergency contact: Primary Care Provider Call non-emergency contact if: you have any medication questions and your symptoms worsen Follow-up/Referrals: [facility] [Primary Care Provider] - Diet: Carb Consistent or DM2 Addtl Attending Provider Instructions: Take Bactrim DS twice daily for 1 week Pending Studies at Discharge: No Stand-Alone Forms: My [facility] Skilled Items Patient informed of condition?: Yes DNR: Yes Discharge Level of Care: Skilled Communicable Disease: No Discharge Prognosis: Stable Lines: None Urinary Catheter: Yes Medications and DC Order Prescriptions: New sulfamethoxazole-trimethoprim [Bactrim DS] 800-160 mg tablet 1 tab PO BID 7 Days Qty: 14 0RF Continued magnesium oxide 400 mg (241.3 mg magnesium) tablet 400 mg PO BID Qty: 180 3RF Eliquis 2.5 mg tablet 2.5 mg PO BID Qty: 180 3RF omeprazole 40 mg capsule,delayed release(DR/EC) 40 mg PO BID 90 Days Qty: 180 3RF gabapentin 100 mg capsule 100 mg PO BID Qty: 180 3RF sodium bicarbonate 650 mg tablet 650 mg PO BID Qty: 180 3RF ferrous sulfate 325 mg (65 mg iron) tablet,delayed release (DR/EC) 325 mg PO DAILY Rx Instructions: purchase [id number] levothyroxine [Synthroid] 25 mcg tablet 25 mcg PO DAILYBB 90 Days Qty: 90 3RF acetaminophen [Tylenol Extra Strength] 500 mg tablet 1,000 mg PO Q8H PRN (Reason: Pain 1-8 or fever) calcium carbonate-vitamin D3 [Calcium 500 + D] 500 mg(1,250mg) -200 unit tablet 1 tab PO QAM vitamin B complex Tablet 1 tab PO QAM Probiotic 10 billion cell Capsule 10,000 mmu cells PO DAILY Rx Instructions: TAKE WITH EVENING MEAL multivitamin Tablet 1 tab PO DAILY midodrine 5 mg Tablet 5 mg PO TID Rx Instructions: do not give last dose of day after 6PM or within 4 hrs of bedtime bisacodyl [Dulcolax (bisacodyl)] 10 mg Suppository 10 mg AR DAILY PRN (Reason: Constipation) Fleet Enema 19-7 gram/118 mL Enema 118 ml AR DAILY PRN (Reason: Constipation) povidone-iodine [Betadine Swabsticks] 10 % Swab 1 applic topical DAILY Rx Instructions: Right second toe alum-mag hydroxide-simeth [Mylanta Maximum Strength] 400-400-40 mg/5 mL Suspension 10 ml PO Q4H PRN (Reason: epigastric pain) diclofenac sodium [Voltaren] 1 % Gel 4 g TOPICAL QID Rx Instructions: left knee Milk of Magnesia 30 ml PO DAILY PRN (Reason: Constipation) calcitriol 0.25 mcg capsule 0.25 mcg PO QAM miconazole nitrate [Desenex] 2 % powder 1 applic EXT BID PRN (Reason: as directed) oxybutynin chloride 5 mg Tablet Extended Release 24hr 5 mg PO QAM Qty: 30 1RF sennosides 8.6 mg Tablet 8.6 mg PO BID oxycodone 5 mg Tablet 5 mg PO Q6H PRN (Reason: Severe pain 9-10) cholecalciferol (vitamin D3) 1,250 mcg (50,000 unit) Tablet 1,250 mcg PO WK Rx Instructions: Takes on Wednesday mornings polyethylene glycol 3350 [Miralax] 17 gram Powder In Packet 17 g PO DAILY Discharge Orders: Discharge Order (Routine); Ordered 12/01/23 Ordered By: Jackson Montemayor/Other Patient Handouts: Managing Type 2 Diabetes Admission Data Admit Date/Time: 11/28/23 18:24 Attending Provider: Jackson Alvarado Admit Provider: Eliud Evans Primary Care Provider: [facility] Other Providers: Eliud Evans Other Interventions: Discharge Summary Assessment (RN) Last Done: 12/01/23 11:07 Coding Level of Care Code 35704 INP/OBS DISCH >30 MIN Diagnoses Metabolic encephalopathy G93.41 Dementia F03.90 Dementia behavioral or psychological symptom: unspecified whether be havioral, psychotic, or mood disturbance or anxiety Dementia severity: unspecified severity Dementia type: unspecified type Urinary tract infection associated with catheterization of urinary tract, unspecified indwelling urinary catheter type, subsequent encounter T83.511D; N39.0 Indwelling urinary catheter type: unspecified Encounter type: subsequent encounter Suprapubic catheter Z93.59 Stage 3b chronic kidney disease N18.32 Cellulitis of toe of right foot L03.031
== END 2023-12-01 13:18 | DRG 698 ==
LOC: ED 16:07 → SUATTDRO 18:24 → 2W 18:24